=== PATIENT | female | born 1975 | race Caucasian/White ===

== ENCOUNTER 2016-06-24 12:58 | Inpatient (IN) | payer OTHER ==
[~2016-06-24] VITALS: Ht 162.6 cm; Wt 49.4 kg
[2016-06-24] VITALS (22 sets, daily range): BP systolic 92–118; BP diastolic 58–100; PULSE 70–87; RESP 12–20; TEMP 93.2
[~2016-06-24 12:58] MED LIST: ETOMIDATE 20 MG INJ ONE
[2016-06-24] MEDS ORDERED: PROPOFOL 100 ML IV STA (13:12)
[2016-06-24] MEDS ORDERED: SODIUM CHLORIDE 0.9% 1L BAG IV* STA (13:12)
[2016-06-24] MEDS ORDERED: SUCCINYLCHOLINE CHLORIDE 100 MG/5 ML SYG IV STA (13:12)
[2016-06-24] MEDS ORDERED: ETOMIDATE 20 MG INJ IV STA (13:12)
[2016-06-24 13:27] LABS: AADO2 Arterial 88.3 mmHg (7.0-24.0); Arterial Base Excess -0.9 mmol/L (-3.0-3); Arterial COHb 0.5 % (0.0-3.0); Arterial Fraction of Oxyhgb 98.7 % (93.0-99.0); Arterial HCO3 20.7 mmol/L (22.0-26.0); Arterial MetHb 0.1 % (0.0-1.5); Arterial Total Hemglobin 7.7 g/dl (12.0-18.0); MODE VENT - AC
[2016-06-24 13:42] LABS: HEMATOCRIT 22.4 % (37.0-47.0); HEMOGLOBIN 7.3 g/dl (12.0-16.0); MEAN CORPUSCULAR HEMOGLOBIN 25.8 pg (29.0-33.0); MEAN CORPUSCULAR HGB CONC 32.4 g/dl (32.0-37.0); MEAN CORPUSCULAR VOLUME 79.5 fl (82.0-101.0); MEAN PLATELET VOLUME 6.4 fl (7.4-10.4); PLATELET COUNT 200 10^3/UL (140-440); RED BLOOD COUNT 2.82 10^6/ul (4.20-5.40); RED CELL DISTRIBUTION WIDTH 21.4 % (11.5-14.5); UNCORRECTED WBC 13.1 10^3/ul (4.8-10.8); WHITE BLOOD COUNT 13.1 10^3/ul (4.8-10.8)
[2016-06-24 13:44] LABS: CONDITION 1; LH ANALYZER COMMENTS 1; SUSPECT 1
[2016-06-24 13:47] LABS: ALBUMIN 1.2 g/dl (3.3-4.9)
[2016-06-24 13:48] LABS: INR 1.43; POTASSIUM 3.8 mmol/L (3.5-5.1); PROTIME 17.5 Sec (12.2-14.2); PT RATIO 1.4
[2016-06-24 13:49] LABS: PARTIAL THROMBOPLASTIN TIME 29.9 Sec (25.0-35.0)
[2016-06-24 13:50] LABS: ALBUMIN/GLOBULIN RATIO 0.42; BILIRUBIN,INDIRECT 0.1 mg/dl (0-1.1); BILIRUBIN,TOTAL 0.1 mg/dl (0.2-1.3); CREATININE 0.78 mg/dl (0.44-1.00)
[2016-06-24 13:51] LABS: CALCIUM 6.8 mg/dl (8.4-10.2)
[2016-06-24] MEDS ORDERED: SOD CHLORIDE 0.9% 250 ML IV ONE (13:53)
[2016-06-24] MEDS ORDERED: CEFEPIME 2GM/50 ML (PMX) 50 ML IVPB STA (13:59)
[2016-06-24] MEDS ORDERED: VANCOMYCIN 1 GM (PMX) 250 ML IVPB ONE (14:00)
[2016-06-24 14:02] LABS: TROPONIN-I 0.017 ng/ml (0.00-0.12)
--- NOTE | 2016-06-24 14:04 | RADRPT ---
PROCEDURE: XR Chest. CLINICAL INDICATION: Respiratory arrest TECHNIQUE: Chest AP portable. COMPARISON: No comparison available. FINDINGS: Endotracheal tube 2 cm above the migel. Right internal jugular central line. The mediastinal structures are unremarkable. The heart is normal in size and configuration. The pu lmonary vascularity is normal. The lung johns are unremarkable. No consolidation is identified. The pleural spaces are unremarkable. The axial skeleton is unremarkable. Probable overlying nipple shadow in the right lower lung field. IMPRESSION: No active intrathoracic disease. RPTAT: HGDB .Arturo Turcios MD, MD Date Time Electronically viewed and signed by .Arturo Turcios MD, on 06/24/2016 14:04 .B/
[2016-06-24] MEDS ORDERED: DEXTROSE 50% 50 ML SYRINGE IV ONE (14:30)
[2016-06-24 14:50] LABS: LYMPHOCYTES # 1.8 10^3/ul (0.8-2.9); MONOCYTE # 0.3 10^3/ul (0.3-0.9); NEUTROPHIL # 4.7 10^3/ul (1.6-7.5)
[2016-06-24 14:51] LABS: ANISOCYTOSIS 2+; HYPOCHROMASIA 2+; MICROCYTOSIS 1+; PLATELET ESTIMATE PLT APPEAR ADEQUATE
[2016-06-24] MEDS ORDERED: OCTREOTIDE 50 MCG INJ SC ONE (15:00)
--- NOTE | 2016-06-24 15:55 | RADRPT ---
PROCEDURE: Noncontrast CT Head. CLINICAL INDICATION: Altered level of consciousness. TECHNIQUE: Noncontrast CT of the head was obtained. The administered radiation dose was unavailable on this particular CT scanner. COMPARISON: There are no similar studies submitted for comparison. FINDINGS: There is streak artifact from external material within the right parietal region in the evaluation. The ventricles and sulci are within normal limits. There is no definite loss of cheek-white differentiation to suggest acute territorial infarction. There is no definite acute intracranial hemorrhage or extra-axial fluid collection. There is no mass effect. No midline shift is identified. The orbits are within normal limits. The paranasal sinuses are well aerated. No destructive osseous lesion is identified. The patient is intubated. IMPRESSION: There is streak artifact from external material within the right parietal region limiting evaluation . Repeat imaging may be performed as clinically warranted. No definite acute intracranial hemorrhage or extra-axial fluid collection. Further findings as detailed above. RPTAT: PP .Laureano Doan MD, MD Date Time Electronically viewed and signed by .Laureano Doan MD, on 06/24/2016 15:54 .F/
[2016-06-24 16:33] LABS: HEMOGLOBIN 5.4 g/dl (12.0-16.0)
[2016-06-24] MEDS ORDERED: NORepinephrine 8MG/250 ML (PMX 250 ML IV SCH (18:00)
--- NOTE | 2016-06-24 18:31 | ERA ---
ER Documentation Chief Complaint Date/Time DATE: 06/24/16 TIME: 18:25 Chief Complaint BIB RA FOR EVAL OF SOB. BVM IN PROGRESS ON ARRIVAL BY EMS HPI This is a 40-year-old female who presents to the emergency room after being brought in by ambulance from home for evaluation of shortness of breath, weakness, and altered mental status. When the ambulance did arrive to this patient's place of residence they noted that she was minimally responsive, and they proceeded to use a bag valve mask on this patient, and oral pharyngeal airway, and transfer this patient to the emergency room. A detailed history is unobtainable from this patient secondary to clinical condition. ROS All systems reviewed and are negative except as per history of present illness. Medications Home Meds Unable to Obtain Active Prescriptions or Reported Meds Allergies Allergies: Coded Allergies: hydrocortisone (Verified Allergy, Unknown, 10/12/13) ibuprofen (Verified Allergy, Unknown, 10/12/13) PMhx/Soc Medical and Surgical Hx: Unable to obtain Hx Psychiatric Problems: Yes (anxiety) Hx Miscellaneous Medical Probl: Yes (hiv+, C DIFF, HEP C) Hx Alcohol Use: No Hx Substance Use: No Hx Tobacco Use: Yes (6 cigs /day) Smoking Status: Current every day smoker Physical Exam Vitals Vital Signs Date Time Temp Pulse Resp B/P Pulse Ox O2 Delivery O2 Flow Rate FiO2 06/24/16 18:20 93.0 77 98/75 06/24/16 17:40 75 91/65 100 Mechanical Ventilator 06/24/16 17:30 75 16 100 35 06/24/16 17:03 95.0 78 85/72 06/24/16 16:00 92 16 92/69 100 Mechanical Ventilator 06/24/16 15:15 74 19 100 35 06/24/16 14:33 Non Rebreather 06/24/16 14:32 93.4 110 16 94/51 100 Mechanical Ventilator 06/24/16 13:30 74 16 91/65 100 Mechanical Ventilator 06/24/16 13:30 111 19 100 100 06/24/16 12:58 107 0 76/54 100 Physical Exam INITIAL VITAL SIGNS: Reviewed by me GENERAL: The patient is cachectic appearing female, moderate respiratory distress HEENT: Conjunctival pallor bilaterally pupils equal, round, and reactive to light. EOMI. There is no scleral icterus. NECK: C-spine is soft and supple, there is no meningismus. There is no cervical lymphadenopathy. LUNGS: Clear to auscultation bilaterally. There are no rales, wheezes or rhonchi. HEART: Tachycardic, no murmurs, clicks, rubs or gallops. ABDOMEN: Soft, non-tender, non-distended. There are bowel sounds in all four quadrants. No rebound or guarding. EXTREMITIES: 3+ pitting edema in the bilateral upper and lower extremities SKIN: Pale skin Rectal exam: Melanotic stool, active bleeding, heme positive HEME/LYMPHATIC: There is no evidence of excessive bruising or lymphedema. PSYCHIATRIC: The patient does not appear anxious or depressed. Result Diagram: 06/24/16 1615 06/24/16 1310 Results 24 hrs Laboratory Tests Test 06/24/16 13:10 06/24/16 13:12 06/24/16 15:10 06/24/16 16:15 Activated Partial Thromboplast Time 29.9Sec Alanine Aminotransferase (ALT/SGPT) 146IU/L Albumin 1.2g/dl Albumin/Globulin Ratio 0.42 Alkaline Phosphatase 181IU/L Anion Gap 13 Anisocytosis 2+ Aspartate Amino Transf (AST/SGOT) 172IU/L Band Neutrophils % 47.0% Basophils # 10^3/ul Basophils % % Blood Morphology Comment Blood Urea Nitrogen 30mg/dl Calcium Level 6.8mg/dl Carbon Dioxide Level 24mmol/L Chloride Level 106mmol/L Creatinine 0.78mg/dl Direct Bilirubin 0.00mg/dl Eosinophils # 10^3/ul Eosinophils % % Globulin 2.80g/dl Glucose Level 68mg/dl Hematocrit 22.4% 17.0% Hemoglobin 7.3g/dl 5.4g/dl Hypochromasia 2+ INR International Normalized Ratio 1.43 Indirect Bilirubin 0.1mg/dl Lactic Acid Level 3.4mmol/L 2.0mmol/L Lymphocytes # 1.810^3/ul Lymphocytes % 14.0% Mean Corpuscular Hemoglobin 25.8pg Mean Corpuscular Hemoglobin Concent 32.4g/dl Mean Corpuscular Volume 79.5fl Mean Platelet Volume 6.4fl Metamyelocytes # 0.1 Metamyelocytes % 1.0% Microcytosis 1+ Monocytes # 0.310^3/ul Monocytes % 2.0% Neutrophils # 4.710^3/ul Neutrophils % 36.0% Nucleated Red Blood Cells # 10^3/ul Nucleated Red Blood Cells % /100WBC Platelet Count 04487^3/UL Platelet Estimate PLT APPEAR ADEQUATE Potassium Level 3.8mmol/L Prothrombin Time 17.5Sec Prothrombin Time Ratio 1.4 Red Blood Count 2.8210^6/ul Red Cell Distribution Width 21.4% Sodium Level 139mmol/L Total Bilirubin 0.1mg/dl Total Protein 4.0g/dl Troponin I 0.017ng/ml White Blood Count 13.110^3/ul Arterial Blood HCO3 20.7mmol/L Arterial Blood Base Excess -0.9mmol/L Arterial Blood Oxygen Saturation 99.3mmHG Britton Test N/A Arterial Blood Gas Puncture Site Femoral Arterial Blood Carboxyhemoglobin 0.5% Arterial Blood Date Drawn 06/24/2016 1:22:43 PM Arterial Blood Methemoglobin 0.1% Arterial Blood pCO2 (Temp correct) 23.2mmhg Arterial Blood pH (Temp corrected) 7.568 Arterial Blood pO2 (Temp corrected) 601.5mmHG Blood Gas A-a O2 Differential 88.3mmHg Blood Gas Actual Respiration Rate 16 Blood Gas Critical Value Read Back KORI Kim Blood Gas Modality VENT - AC Blood Gas Notified Time 06/24/2016 1:27:31 PM Blood Gas Notified Whom MDA Blood Gas Respiration Rate 16.0 Blood Gas Specimen Source Blood arterial Blood Gas Temperature 37.0C Blood Gas Tidal Volume 450.0mL FiO2 100.0% Oxyhemoglobin Percent 98.7% Total Hemoglobin 7.7g/dl Current Medications Medications (Trade) Dose Ordered Sig/Dianne Route PRN Reason Start Time Stop Time Status Last Admin Dose Admin Sodium Chloride (NS) 2,500 ml BOLUS OVER 2 HOURS STAT IV* 06/24/16 13:12 06/24/16 13:15 DC 06/24/16 14:28 Succinylcholine Chloride (Anectine Syringe) 100 mg ONCE STAT IV 06/24/16 13:12 06/24/16 13:15 DC Etomidate 20 mg 20 mg ONCE STAT IV 06/24/16 13:12 06/24/16 13:15 DC Propofol 100 ml @ 0 mls/hr ONCE STAT IV 06/24/16 13:12 06/24/16 13:15 DC 06/24/16 14:29 Sodium Chloride 250 ml @ 0 mls/hr Q0M ONCE IV 06/24/16 13:53 06/24/16 13:55 DC Cefepime HCl 50 ml @ 100 mls/hr ONCE STAT IVPB 06/24/16 13:59 06/24/16 14:28 DC 06/24/16 14:25 Vancomycin HCl (Vancocin) 250 ml @ 125 mls/hr ONCE ONCE IVPB 06/24/16 14:00 06/24/16 15:59 DC 06/24/16 14:27 Dextrose (D50w Syringe) 50 ml ONCE ONCE IV 06/24/16 14:30 06/24/16 14:31 DC 06/24/16 14:24 Octreotide Acetate 150 mcg 150 mcg ONCE ONCE SC 06/24/16 15:00 06/24/16 15:01 DC 06/24/16 15:00 Norepinephrine (Levophed) 250 ml @ 1.875 mls/ hr TITRATE IV 06/24/16 18:00 06/24/16 17:52 Procedures/MDM CT head without: No bleed, no stroke EKG: Rate/Rhythm: Sinus tachycardia QRS, ST, T-waves: [No changes consistent w/ acute ischemia] Impression: [No evidence of ischemia or arrhythmia] Chest X-ray 1V Interpreted by me: Soft Tissue: ET tube 2 cm above migel, right internal jugular catheter in place Bones: No acute abnormalities Mediastinum/Cardiac Silhouette/Lungs: [No acute abnormalities] This 40-year-old female presents to the emergency room for evaluation of respiratory distress. When I evaluated this patient this patient was in moderate respiratory distress, she appeared pale, and cachectic. She was intubated. Please see intubation note. When we were doing a thorough examination it was noted that this patient had melanotic stool, this melanotic stool became bright red, this patient was tachycardic and hypotensive. A central line was placed. Please see central line note. This patient was started on IV normal saline, she was given 2 units of packed red blood cells, and her initial hemoglobin came back at 7.3. Repeat hemoglobin after transfusion was progressing showed a hemoglobin of 5.4. This patient continued to be hypotensive despite IV fluids, and this patient was subsequently started on levo fed. She was also given 150 g subcutaneously of octreotide. This patient is suffering from hemorrhagic shock at this time secondary to a GI bleed. I have contacted our on-call railway signalling engineer, Dr. rojas who agrees to do an emergent colonoscopy on this patient to evaluate bleeding. This patient will be transferred to the ICU at this time. Endotracheal Intubation by me: Pre assessment performed. See preceding note for details. Pre-oxygenation performed with 100% oxygen RSI: Performed w/o complication or hypoxic events. Medications as ordered. Blade: [Mac 4] ET Tube: 7.5] cm Depth: 23 cm at the lip Intubation confirmed by colorimetric CO2, equal breath sounds, quiet over the stomach. Chest X-ray 1V Interpreted by me: 2cm above the migel ET tube. Normal soft tissue, No pneumothorax. Central Line Placement by me: Patient consented, sterilely draped, full prep, gown, glove, mask, time out performed. Anesthesia: 1% lidocaine locally Location: Right internal jugular vein Device: Multiple lumen Technique: Seldinger technique. Secured with suture. Results: Venous return from all ports with easy saline flush. No complications. Guide wire retrieved and disposed of. [ED Ultrasound: Central line placed by me using concurrent ultrasound guidance. Real time image archived in the medical record confirms vascular anatomy. [Chest X-ray 1V Interpreted by me: Central line in SVC, Normal soft tissue, No evidence of pneumothorax.] Critical Care: Excluding all billable procedures Time: 77 minutes Treatments/Evaluations: Emergent and rapid respiratory assessment and management with continuous monitoring. Advanced airway equipment at the ready, while the patient's respiratory symptoms were stabilized, multiple bedside evaluations, lab values interpretation, multiple consultations, coordination of nursing care. Departure Diagnosis: Primary Impression: Hemorrhagic shock Additional Impressions: Acute lower GI bleeding Severe anemia Respiratory failure Condition: Critical KORIJACINDAISAIAS MCKEON Jun 24, 2016 18:31
[2016-06-24] MEDS ORDERED: LORAZEPAM 2 MG INJ IV PRN (19:00)
[2016-06-24] MEDS ORDERED: IPRATROPIUM (NEB) 0.5 MG/2.5 ML AMP NEB PRN (19:00)
[2016-06-24] MEDS ORDERED: OCTREOTIDE 1 MG in SOD CHLORIDE 0.9% 95 ML IV SCH (19:00)
[2016-06-24] MEDS ORDERED: ONDANSETRON 4 MG INJ IV PRN (19:00)
[2016-06-24] MEDS ORDERED: METOCLOPRAMIDE 10 MG INJ IV PRN (19:00)
[2016-06-24] MEDS ORDERED: ALBUTEROL 0.5% (NEB) 2.5 MG/0.5 ML AMP NEB PRN (19:00)
[2016-06-24] MEDS ORDERED: ACETAMINOPHEN 650 MG SUPP PR PRN (19:00)
[2016-06-24] MEDS: NORepinephrine 8MG/250 ML (PMX 250 ML IV SCH (19:30)
--- NOTE | 2016-06-24 19:46 | CONS ---
Date/Time of Note Date/Time of Note DATE: 06/24/16 TIME: 19:45 Assessment/Plan Assessment/Plan Additional Assessment/Plan Assessment: Hemorrhagic shock secondary to gastrointestinal bleed Gastrointestinal bleed UGI vs LGI Anemia secondary to above HIV + status HCV + status Plan: Emergency EGD Consultation Date/Type/Reason Admit Date/Time Jun 24, 2016 at 17:51 Date of Consultation: Jun 24, 2016 Type of Consultation: GI Reason for Consultation GI Bleeding Hx of Present Illness The patient is a 40-year-old female with history of HIV, hepatitis C cirrhosis and anxiety who was brought by EMS with initial complaint of shortness of breath. The patient is currently intubated, and as such, information is gathered from the ER physician and from the EMS report. Her initial hemoglobin was around 7. A repeat hemoglobin was found to be 5.4. The patient is currently receiving a blood transfusion. Her blood pressure also dropped to low 90s and she was about to be started on a pressor. She was also found to have abnormal liver enzymes. Not obtainable Past Medical History HIV +, Hepatitis, CLD Medical History: no pertinent history Past Surgical History not available Social History Smoking Status: Current every day smoker Exam/Review of Systems Vital Signs Vitals Vital Signs Date Time Temp Pulse Resp B/P Pulse Ox O2 Delivery O2 Flow Rate FiO2 06/24/16 19:00 93.2 74 16 111/92 100 Mechanical Ventilator 06/24/16 17:30 35 Exam Constitutional: other (intubated) Head: normocephalic Neck: non-tender, supple Respiratory: crackles/rales, diminished breath sounds Cardiovascular: regular rate and rhythm Gastrointestinal: ascites, distended, soft, No rebound or guarding, No tender Results Result Diagram: 06/24/16 1615 06/24/16 1310 Results 24 hrs Laboratory Tests Test 06/24/16 13:10 06/24/16 13:12 06/24/16 15:10 06/24/16 16:15 Activated Partial Thromboplast Time 29.9 Alanine Aminotransferase (ALT/SGPT) 146 H Albumin 1.2 L Albumin/Globulin Ratio 0.42 Alkaline Phosphatase 181 H Anion Gap 13 Anisocytosis 2+ Aspartate Amino Transf (AST/SGOT) 172 H Band Neutrophils % 47.0 H Basophils # Basophils % Blood Morphology Comment Blood Urea Nitrogen 30 H Calcium Level 6.8 L Carbon Dioxide Level 24 Chloride Level 106 Creatinine 0.78 Direct Bilirubin 0.00 Eosinophils # Eosinophils % Globulin 2.80 Glucose Level 68 L Hematocrit 22.4 L 17.0 #L Hemoglobin 7.3 L 5.4 #*L Hypochromasia 2+ INR International Normalized Ratio 1.43 Indirect Bilirubin 0.1 Lactic Acid Level 3.4 H 2.0 Lymphocytes # 1.8 Lymphocytes % 14.0 L Mean Corpuscular Hemoglobin 25.8 L Mean Corpuscular Hemoglobin Concent 32.4 Mean Corpuscular Volume 79.5 L Mean Platelet Volume 6.4 L Metamyelocytes # 0.1 Metamyelocytes % 1.0 H Microcytosis 1+ Monocytes # 0.3 Monocytes % 2.0 Neutrophils # 4.7 Neutrophils % 36.0 L Nucleated Red Blood Cells # Nucleated Red Blood Cells % Platelet Count 200 Platelet Estimate PLT APPEAR ADEQUATE Potassium Level 3.8 Prothrombin Time 17.5 H Prothrombin Time Ratio 1.4 Red Blood Count 2.82 L Red Cell Distribution Width 21.4 H Sodium Level 139 Total Bilirubin 0.1 L Total Protein 4.0 L Troponin I 0.017 White Blood Count 13.1 H Arterial Blood HCO3 20.7 L Arterial Blood Base Excess -0.9 Arterial Blood Oxygen Saturation 99.3 H Britton Test N/A Arterial Blood Gas Puncture Site Femoral Arterial Blood Carboxyhemoglobin 0.5 Arterial Blood Date Drawn 06/24/2016 1:22:43 PM Arterial Blood Methemoglobin 0.1 Arterial Blood pCO2 (Temp correct) 23.2 L Arterial Blood pH (Temp corrected) 7.568 *H Arterial Blood pO2 (Temp corrected) 601.5 H Blood Gas A-a O2 Differential 88.3 H Blood Gas Actual Respiration Rate 16 Blood Gas Critical Value Read Back KORI Kim Blood Gas Modality VENT - AC Blood Gas Notified Time 06/24/2016 1:27:31 PM Blood Gas Notified Whom MDA Blood Gas Respiration Rate 16.0 Blood Gas Specimen Source Blood arterial Blood Gas Temperature 37.0 Blood Gas Tidal Volume 450.0 FiO2 100.0 Oxyhemoglobin Percent 98.7 Total Hemoglobin 7.7 L Test 06/24/16 18:45 Lactic Acid Level 1.6 Medications Medications Current Medications Norepinephrine 250 ml @ 1.875 mls/ hr TITRATE IV Last administered on t 17:52; Admin Dose 3.75 MLS/HR; Start 06/24/16 at 18:00 Dextrose/Sodium Chloride (D5-1/2ns) 1,000 ml @ 100 mls/hr Q10H IV ; Start at 18:48 Ondansetron HCl (Zofran Inj) 4 mg Q6H PRN IV NAUSEA AND/OR VOMITING; Start 06/24 at 19:00 Metoclopramide HCl (Reglan) 10 mg Q6H PRN IV NAUSEA AND/OR VOMITING; Start 06/24 at 19:00 Acetaminophen (Tylenol Supp) 650 mg Q4H PRN OR PAIN LEVEL 1-3 OR FEVER; Start 06/24/16 at 19:00 Morphine Sulfate (morphine) 2 mg Q4H PRN IV PAIN LEVEL 7-10; Start 06/24/16 at 19:00 Lorazepam 1 mg 1 mg Q2H PRN IV ANXIETY; Start 06/24/16 at 19:00 Pantoprazole 80 mg/Sodium Chloride 100 ml @ 10 mls/hr Q10H IV ; Start 06/24/16 at 18:48 Octreotide Acetate/Sodium Chloride (Sandostatin/NS) 100 ml @ 5 mls/hr Q20H IV ; Start 06/24/16 at 19:00 LM LAMB MD Jun 24, 2016 19:45 Test 06/24/16 18:45 Lactic Acid Level 1.6 Medications Medications Current Medications Norepinephrine 250 ml @ 1.875 mls/ hr TITRATE IV Last administered on t 17:52; Admin Dose 3.75 MLS/HR; Start 06/24/16 at 18:00 Dextrose/Sodium Chloride (D5-1/2ns) 1,000 ml @ 100 mls/hr Q10H IV ; Start at 18:48 Ondansetron HCl (Zofran Inj) 4 mg Q6H PRN IV NAUSEA AND/OR VOMITING; Start 06/24 at 19:00 Metoclopramide HCl (Reglan) 10 mg Q6H PRN IV NAUSEA AND/OR VOMITING; Start 06/24 at 19:00 Acetaminophen (Tylenol Supp) 650 mg Q4H PRN OR PAIN LEVEL 1-3 OR FEVER; Start 06/24/16 at 19:00 Morphine Sulfate (morphine) 2 mg Q4H PRN IV PAIN LEVEL 7-10; Start 06/24/16 at 19:00 Lorazepam 1 mg 1 mg Q2H PRN IV ANXIETY; Start 06/24/16 at 19:00 Pantoprazole 80 mg/Sodium Chloride 100 ml @ 10 mls/hr Q10H IV ; Start 06/24/16 at 18:48 Octreotide Acetate/Sodium Chloride (Sandostatin/NS) 100 ml @ 5 mls/hr Q20H IV ; Start 06/24/16 at 19:00 LM LAMB MD Jun 24, 2016 19:45
[2016-06-24] MEDS ORDERED: POLYETHYLENE GLYCOL 3350 119 GM POWDER NGT ONE (21:00)
--- NOTE | 2016-06-24 21:08 | RADRPT ---
PROCEDURE: CT Cervical Spine without contrast. CLINICAL INDICATION: Cervical spine pain, suspected cervical spine injury. TECHNIQUE: The study was performed on a multislice multidetector CT scanner. Spiral axial 1 mm im ages were obtained through the cervical spine and reformatted at 2.5 mm slice thickness without cont rast. Sagittal and coronal reformations were created from the raw axial data. The images were review ed on a PACS workstation. RADIATION DOSE: CTDIvol: 14.8 mGyDLP: 822.8 mGy-cm COMPARISON: No prior studies are available for comparison. FINDINGS: The alignment of the cervical spine is within normal limits on the sagittal view. There is no signi ficant listhesis. There is a mild right convex scoliosis centered at C5.. The vertebral body heigh ts are maintained. There is no evidence of fracture or dislocation. The marrow density is within n ormal limits. The intervertebral disc spaces appear normal. The cervical canal is unremarkable. Ther e is a no bone destruction or sclerosis. The paraspinal soft tissues are unremarkable. No significa nt paraspinal soft tissue swelling. There is an endotracheal tube in place with tip not visualized. There is a right subclavian central line in place, with tip not visualized C2-3: There is a 1 mm posterior disc/osteophyte complex. The thecal sac and neural foramina are pat ent. C3-4: There is a 1-2 mm posterior disc/osteophyte complex. The thecal sac is patent. There is mild bilateral facet spondylosis. There is mild bilateral neural foraminal narrowing. C4-5: There is a 1-2 mm posterior disc/osteophyte complex. The thecal sac is patent. There is mild bilateral facet spondylosis. There is mild bilateral neural foraminal narrowing. C5-6: There is a 1 mm posterior disc/osteophyte complex. The thecal sac and neural foramina are pat ent. There is mild bilateral facet spondylosis. C6-7: There is a 1 mm posterior disc/osteophyte complex. The thecal sac and neural foramina are pa tent. C7-T1: The posterior margin of the disc, thecal sac and neural foramina are normal in appearance. IMPRESSION: 1. No acute abnormality of the cervical spine. No evidence of fracture or dislocation. 2. Minimal spondylosis of the cervical spine without significant narrowing of the cervical thecal s ac or neural foramina. 3. Endotracheal tube in place. RPTAT: HGAS .Thang Ma MD, Date Time Electronically viewed and signed by .Thang Ma MD, on 06/24/2016 21:08 .S/
--- NOTE | 2016-06-24 22:07 | HP ---
DATE OF ADMISSION: 06/24/2016 TIME SEEN: 7:00 a.m. CHIEF COMPLAINT: Shortness of breath. HISTORY OF PRESENT ILLNESS: The patient is a 40-year-old female with history of HIV, hepatitis C ci rrhosis and anxiety who was brought by EMS with initial complaint of shortness of breath. The patie nt is currently intubated, and as such, information is gathered from the ER physician and from the E MS report. When the EMS arrived, the patient was unresponsive, even though she does have a pulse. Upon arrival to the ER, the patient was intubated. She was found to be extremely edematous with kellen e bruising over her right eye area. During the nursing examination she was found to have a large bl oody watery stool. Her initial hemoglobin was around 7. A repeat hemoglobin was found to be 5.4. The patient is currently receiving a blood transfusion. Her blood pressure also dropped to low 90s and she was about to be started on a pressor. She was also found to have abnormal liver enzymes. A GI consult has already been placed . REVIEW OF SYSTEMS: Unable to fully assess. PAST MEDICAL HISTORY: As per HPI. PAST SURGICAL HISTORY: Unknown. SOCIAL HISTORY: Unknown. ALLERGIES AND HOME MEDICATIONS: Please see reconciled meds. PHYSICAL EXAMINATION: VITAL SIGNS: Blood pressure 91/50, heart rate 105, respiratory rate 20, temperature 95, oxygen satu ration 98% on a vent. GENERAL: The patient is intubated, sedated. Looks comfortable on vent. HEENT: No obvious head deformity. There is bruising around her right eye area. Pupils are reactiv e to light. CARDIOVASCULAR: Tachycardic. Regular rhythm. CHEST: Decreased breath sounds. ABDOMEN: Distended with anasarca. EXTREMITIES: There is significant bilateral lower extremity pitting edema. LABORATORY: Pertinent positives as noted in HPI. IMPRESSION: 1. Hemorrhagic shock secondary to gastrointestinal bleed. 2. Gastrointestinal bleed. 3. Anemia secondary to above. 4. Ventilator dependent respiratory failure. 5. Volume overload state. 6. Abnormal liver enzymes. PLAN: Admit to ICU. Continue blood transfusion. A GI consult has already been placed. She will b e placed on octreotide and Protonix drip. She will be on a pressor as needed. We are going to cont inue vent support. We will check her ABG. A pulmonary consult will be placed. We will check her f erritin and iron profile. Monitor hemoglobin closely and continue transfusion as needed. Further workup and management per clinical course. Total time spent was 40 minutes. Dictated By: RAVI LAWLER/NTS Conf#: [id number] DID#: [id number]
--- NOTE | 2016-06-24 23:12 | RADRPT ---
PROCEDURE: XR Chest. CLINICAL INDICATION: Check orogastric tube position. TECHNIQUE: Single frontal view. COMPARISON: 06/24/2016. 1348 hours. FINDINGS: There is an new orogastric tube with the tip in the stomach. The endotracheal tube and right chemist internship al jugular vein catheter remain in satisfactory position. The lungs are clear. The heart size is normal. There is no pleural effusion. There is no pneumothorax. IMPRESSION: 1. Orogastric tube tip in the stomach. 2. Right IJ catheter and endotracheal tube in satisfactory position. 3. Clear lungs. RPTAT: QQ .Patricio Phillips MD, MD Date Time Electronically viewed and signed by .Patricio Phillips MD, MD on 06/24/2016 23:12 .R/
[2016-06-24] MEDS: DEXTROSE 5%-0.45% NACL 1,000 ML IV SCH (23:36)
[2016-06-24] MEDS: PANTOPRAZOLE IV 80 MG in SOD CHLORIDE 0.9% 100 ML IV SCH (23:43)
[2016-06-25] VITALS (104 sets, daily range): BP systolic 83–116; BP diastolic 55–87; PULSE 73–99; RESP 12–32; Ht 162.6 cm; Wt 49.4 kg
[2016-06-25 00:58] LABS: HEMATOCRIT 30.4 % (37.0-47.0); HEMOGLOBIN 10.1 g/dl (12.0-16.0)
[2016-06-25] MEDS ORDERED: CIPR750T3 PO (03:05)
[2016-06-25] MEDS ORDERED: MESA1.2T2 PO (03:05)
[2016-06-25] MEDS ORDERED: VALG450T3 PO (03:05)
[2016-06-25] MEDS: PROPOFOL 100 ML IV SCH (03:24)
[2016-06-25] MEDS: PANTOPRAZOLE IV 80 MG in SOD CHLORIDE 0.9% 100 ML IV SCH ×3 (04:48→22:14)
[2016-06-25] MEDS: DEXTROSE 5%-0.45% NACL 1,000 ML IV SCH ×3 (04:48→22:14)
[2016-06-25 04:50] LABS: AADO2 Arterial 30.4 mmHg (7.0-24.0); Arterial Base Excess 2.4 mmol/L (-3.0-3); Arterial COHb 0.3 % (0.0-3.0); Arterial Fraction of Oxyhgb 97.6 % (93.0-99.0); Arterial HCO3 24.9 mmol/L (22.0-26.0); Arterial MetHb 0.3 % (0.0-1.5); Arterial Total Hemglobin 10.9 g/dl (12.0-18.0); MODE VENT - AC
[2016-06-25 06:31] LABS: HAAIG REFLEX REFLEX FILED
[2016-06-25 06:42] LABS: HEMATOCRIT 29.9 % (37.0-47.0); MEAN CORPUSCULAR HEMOGLOBIN 27.2 pg (29.0-33.0); MEAN CORPUSCULAR HGB CONC 33.6 g/dl (32.0-37.0); MEAN CORPUSCULAR VOLUME 80.9 fl (82.0-101.0); MEAN PLATELET VOLUME 6.7 fl (7.4-10.4); PLATELET COUNT 134 10^3/UL (140-440); UNCORRECTED WBC 16.7 10^3/ul (4.8-10.8); WHITE BLOOD COUNT 16.7 10^3/ul (4.8-10.8)
[2016-06-25 06:52] LABS: CONDITION 1; LH ANALYZER COMMENTS 1; SUSPECT 1
[2016-06-25 06:55] LABS: TOTAL IRON BINDING CAPACITY 95 ug/dl (241-421)
[2016-06-25 07:02] LABS: IRON 17 ug/dl (35-150)
[2016-06-25 07:47] LABS: ALBUMIN 1.1 g/dl (3.3-4.9)
[2016-06-25 07:49] LABS: BILIRUBIN,INDIRECT 0.2 mg/dl (0-1.1); BILIRUBIN,TOTAL 0.2 mg/dl (0.2-1.3); CREATININE 0.63 mg/dl (0.44-1.00)
[2016-06-25 07:50] LABS: ALBUMIN/GLOBULIN RATIO 0.42; CALCIUM 6.2 mg/dl (8.4-10.2); TOTAL PROTEIN 3.7 g/dl (6.1-8.1)
[2016-06-25 07:54] LABS: POTASSIUM 2.6 mmol/L (3.5-5.1)
[2016-06-25 07:57] LABS: HEPATITIS B CORE ANTIBODY NEGATIVE (NEGATIVE)
[2016-06-25 09:37] LABS: ANISOCYTOSIS 1+; EOSINOPHILS # 0.2 10^3/ul (0.0-0.5); HYPOCHROMASIA 1+; LYMPHOCYTES # 1.7 10^3/ul (0.8-2.9); MICROCYTOSIS 1+; MONOCYTE # 1.5 10^3/ul (0.3-0.9); MYELOCYTES # 0.2; NEUTROPHIL # 5.2 10^3/ul (1.6-7.5)
[2016-06-25] MEDS: POTASSIUM CHLORIDE 250 ML IVPB SCH ×2 (10:03→13:56)
--- NOTE | 2016-06-25 10:09 | RADRPT ---
PROCEDURE: US Abdomen (right upper quadrant). CLINICAL INDICATION: Evaluate cirrhosis. TECHNIQUE: Multiple real-time longitudinal and transverse images of the right upper quadrant of th e abdomen were acquired utilizing a curved array transducer. Images were reviewed on a high-resoluti on PACS workstation. COMPARISON: None FINDINGS: The liver is normal in size and echotexture without focal mass or intrahepatic biliary dilatation. There is normal hepatopedal flow within the main portal vein. The gallbladder is unremarkable witho ut evidence of stones or wall thickening. The common bile duct measures 5.3 mm in maximal dimension . The pancreas is not visualized due to overlying bowel gas. There is trace ascites present.. The right kidney measures 8.5 cm in length. There is normal echogenicity within the right kidney. There is no perinephric fluid collection. No hydronephrosis, mass, or calculus is seen. IMPRESSION: 1. Liver, gallbladder and biliary tree appear unremarkable. 2. Nonvisualization of the pancreas due to overlying bowel gas. 3. Trace ascites. RPTAT: [facility] Physician Darian Date Time Electronically viewed and signed by Physician Darian on 06/25/2016 10:09 /
[2016-06-25] MEDS: LEVOFLOXACIN 500MG/D5W (PMX) 100 ML IVPB SCH ×2 (12:43→13:00)
[2016-06-25 13:26] LABS: HEMATOCRIT 30.9 % (37.0-47.0); HEMOGLOBIN 10.3 g/dl (12.0-16.0)
--- NOTE | 2016-06-25 14:24 | RADRPT ---
Echocardiogram Report Patient Name: TIFFANIE ARREOLA Gender: Female Date: 1975 Study Date: 25-Jun-2016 College Advisor: Sree Ahumada RDCS Location: Ref. Physician: RAVI BURGOS Quality: Good Procedures: Transthoracic echocardiogram with complete 2D, M-Mode, and doppler examination. Indications: Hypotension. 2D/M Mode Doppler Measurement Value Normal Ranges Measurement Value Normal Ranges LVIDd 2D 3.6 3.5 - 5.6 cm AV Peak Ken 0.8 m/sec LVIDs 2D 2.6 2.1 - 4.1 cm AV Peak PG 2.9 mmHg LVPWd 2D 0.7 0.6 - 1.1 cm LVOT Peak Ken 0.8 m/sec IVSd 2D 0.6 0.6 - 1.1 cm LVOT Peak PG 2.6 mmHg AoR Diam 2D 2.5 2.0 - 3.7 cm MV E Peak Ken 0.5 m/sec EDV 2D 52.9 cm3 MV A Peak Ken 0.5 m/sec ESV 2D 17.7 cm3 MV E/A 1.1 LA Dimen 2D 2.4 2.3 - 4.0 cm MV Decel Time 188 msec MV Decel Bacon 3 MV E/A 1.1 TR Peak Ken 2.4 m/sec TR Peak PG 22.9 mmHg RVSP 31.0 mmHg Findings Left Ventricle: Normal left ventricular systolic function. Normal left ventricular cavity size. Normal left ventricular wall thickness. Ejection fraction is visually estimated at 60 %. Right Ventricle: Normal right ventricular size. Normal right ventricular systolic function. Left Atrium: The left atrium is normal in size. Right Atrium: The right atrium is normal in size. Mitral Valve: Normal appearance and function of the mitral valve with trace physiologic regurgitation. Aortic Valve: Normal appearance of the aortic valve. No significant aortic stenosis or insufficiency. Tricuspid Valve: Normal appearance and function of the tricuspid valve with trace physiologic regurgitation. Estimated peak PA systolic pressure 31 mmHg. Pericardium: Small pericardial effusion. Aorta: Normal aortic root. IVC: Inferior vena cava without respiratory collapse, however, patient on ventilator. Conclusions 1.Normal left ventricular systolic function. Normal left ventricular cavity size. Normal left ventricular wall thickness. Ejection fraction is visually estimated at 60 %. 2.Normal right ventricular size. Normal right ventricular systolic function. 3.The left atrium is normal in size. 4.The right atrium is normal in size. 5.No significant valvular stenosis or regurgitation seen. 6.Small pericardial effusion. Electronically Signed By: Diego Nunez 25-Jun-2016 14:24:15 -0800 Patient Name: ITFFANIE ARREOLA Study Date: 25-Jun-2016 [id number]
--- NOTE | 2016-06-25 14:41 | GILP ---
DATE OF PROCEDURE: 06/24/2016 EMERGENCY ESOPHAGOGASTRODUODENOSCOPY WITH BIOPSIES BRIEF HISTORY AND INDICATIONS: The patient is hospitalized with severe anemia and hemorrhagic shock . PREMEDICATION: General anesthesia by anesthesiologist. SURGEON: Nabeel Carrasco MD. INSTRUMENT USED: Olympus panendoscope. TECHNIQUE: After informed consent, with the patient/relatives understanding the procedure, its indic ations, potential risks and complications, including but not limited to: allergic reaction, bleeding , perforation or infection, and after all pertinent questions were answered to the patients satisfac tion, the patient/relatives signed witnessed informed consent. Following this, premedication was administered slowly IV push under careful cardiovascular and respi ratory monitoring with pulse oximetry, automatic blood pressure and supervisor opening and picking. Once the sedative effect was achieved the patient was place in the left lateral decubitus, the panen doscope was introduced and advanced under visual control. Careful examination of the upper gastrointestinal tract, both on insertion as well as withdrawal of the instrument disclosed the following findings: ESOPHAGUS: The esophagus is remarkable for the presence of whitish/yellowish exudate consistent wit h kayla esophagitis. STOMACH: Upon entrance into the stomach, air was insufflated, the gastric owens distended normally. There was atrophic appearance of the stomach. No bleeding site identified. PYLORUS: The pylorus appears patent and within normal limits, with no evidence of gastric outlet ob struction. DUODENUM: The duodenal mucosa was carefully examined in the duodenal bulb as well as the second por tion of the duodenum and appears unremarkable with no evidence of duodenitis, ulcer or neoplasm. The instrument was withdrawn. On withdrawal of the instrument, single biopsy was obtained of the mi desophagus to confirm kayla esophagitis. IMPRESSION: 1. Suspected Kayla esophagitis. Biopsies obtained. 2. Atrophic gastropathy. 3. No bleeding site identified. PLAN: The patient will be continued on PPIs. Pathology will be reviewed as soon as available. Dif lucan will be added once confirmation of Kayla is obtained. The patient will be considered for co lonoscopy as she has been having bright red blood per rectum. Dictated By: NABEEL CARRASCO MS/SHILPA Conf#: [id number] DID#: [id number]
[2016-06-25] MEDS: NORepinephrine 8MG/250 ML (PMX 250 ML IV SCH (16:19)
[2016-06-25] MEDS: VANCOMYCIN HCL 250 MG/5ML POSYG NGT SCH (17:33)
[2016-06-25 18:12] LABS: HEMATOCRIT 30.2 % (37.0-47.0)
[2016-06-25] MEDS ORDERED: FUROSEMIDE 20 MG INJ IV ONE (20:30)
[2016-06-25 20:46] LABS: ADD UMIC YES; URINE BILIRUBIN (Dip) 2+ (NEGATIVE); URINE BLOOD (Dip) NEGATIVE (NEGATIVE); URINE COLOR YELLOW (YELLOW); URINE GLUCOSE (Dip) NEGATIVE (NEGATIVE); URINE KETONES (Dip) NEGATIVE (NEGATIVE); URINE LEUKOCYTE ESTERASE (Dip) NEGATIVE (NEGATIVE); URINE NITRITE (Dip) NEGATIVE (NEGATIVE); URINE TOTAL PROTEIN (Dip) 1+ (NEGATIVE); URINE UROBILINOGEN (Dip) 0.2 E.U./dL (0.1-1.0)
[2016-06-25 20:54] LABS: ICTOTEST NEGATIVE (NEGATIVE)
[2016-06-25 20:55] LABS: URINE RBCS 0-2 /HPF (0)
[2016-06-25 20:56] LABS: BACTERIA,URINE OCCASIONAL; MUCUS,URINE FEW; SQUAMOUS EPITHELIAL CELL,UR FEW
[2016-06-26] VITALS (98 sets, daily range): BP systolic 76–109; BP diastolic 45–79; PULSE 83–112; RESP 12–26
[2016-06-26] MEDS: PROPOFOL 100 ML IV SCH (00:27)
[2016-06-26] MEDS: VANCOMYCIN HCL 250 MG/5ML POSYG NGT SCH ×5 (00:27→23:52)
[2016-06-26 01:22] LABS: HEMATOCRIT 32.4 % (37.0-47.0); HEMOGLOBIN 10.6 g/dl (12.0-16.0)
--- NOTE | 2016-06-26 03:36 | PN ---
Date/Time of Note Date/Time of Note DATE: 06/25/16 TIME: 13:30 Assessment/Plan VTE Prophylaxis VTE Prophylaxis Intervention: SCD's Lines/Catheters IV Catheter Type (from Nrsg): Central Line Central line still needed: Yes Urinary Cath still in place: Yes Reason Cath still needed: terminal illness/intractable pain Assessment/Plan Assessment/Plan IMPRESSION: 1. Hemorrhagic shock secondary to gastrointestinal bleed. 2. Gastrointestinal bleed. 3. Anemia secondary to above. 4. Ventilator dependent respiratory failure. 5. Volume overload state. 6. Abnormal liver enzymes. 7. Hypokalemia PLAN: f/u EGD result cont octreotide and Protonix drip. She will be on a pressor as needed. continue vent support. will check ABG.in am A pulmonary consult has been placed. Monitor hemoglobin closely and continue transfusion as needed. Replete K+ Further workup and management per clinical course. Total time spent was 40 minutes. Subjective 24 Hr Interval Summary Free Text/Dictation intubated and sedated Exam/Review of Systems Vital Signs Vitals Vital Signs Date Time Temp Pulse Resp B/P Pulse Ox O2 Delivery O2 Flow Rate FiO2 06/25/16 21:05 30 06/25/16 20:45 90 14 95/74 100 Mechanical Ventilator 06/25/16 20:30 97.5 Intake and Output 06/25/16 06/25/16 06/26/16 15:00 23:00 07:00 Intake Total 1359.00 ml 753.00 ml Output Total 425 ml 960 ml Balance 934.00 ml -207.00 ml Exam GENERAL: The patient is intubated, sedated. Looks comfortable on vent. HEENT: No obvious head deformity. There is bruising around her right eye area. Pupils are reactive to light. CARDIOVASCULAR: Tachycardic. Regular rhythm. CHEST: Decreased breath sounds. ABDOMEN: soft EXTREMITIES: bilateral lower and upper extremity pitting edema. Results Result Diagram: 06/26/16 0033 06/25/16 0615 Results 24 hrs Laboratory Tests Test 06/25/16 05:00 06/25/16 06:15 06/25/16 13:10 06/25/16 13:25 Arterial Blood HCO3 24.9 Arterial Blood Base Excess 2.4 Arterial Blood Oxygen Saturation 98.2 H Britton Test N/A Arterial Blood Gas Puncture Site Right Radial Arterial Blood Carboxyhemoglobin 0.3 Arterial Blood Date Drawn 06/25/2016 4:40:46 AM Arterial Blood Methemoglobin 0.3 Arterial Blood pCO2 (Temp correct) 31.3 L Arterial Blood pH (Temp corrected) 7.518 H Arterial Blood pO2 (Temp corrected) 146.7 H Blood Gas A-a O2 Differential 30.4 H Blood Gas Actual Respiration Rate 16 Blood Gas Inspiratory Pressure 18.0 Blood Gas Modality VENT - AC Blood Gas Notified Time 06/25/2016 4:50:38 AM Blood Gas Notified Whom KM Blood Gas Respiration Rate 16.0 Blood Gas Specimen Source Blood arterial Blood Gas Temperature 37.0 Blood Gas Tidal Volume 450.0 FiO2 30.0 Oxyhemoglobin Percent 97.6 Total Hemoglobin 10.9 L Alanine Aminotransferase (ALT/SGPT) 125 H Albumin 1.1 L Albumin/Globulin Ratio 0.42 Alkaline Phosphatase 149 H Anion Gap 11 Anisocytosis 1+ Aspartate Amino Transf (AST/SGOT) 134 H Band Neutrophils % 45.0 H Basophils # Basophils % Blood Morphology Comment Blood Urea Nitrogen 23 H Calcium Level 6.2 L Carbon Dioxide Level 25 Chloride Level 108 Creatinine 0.63 Differential Comment MANUAL DIFF Direct Bilirubin 0.00 Eosinophils # 0.2 Eosinophils % 1.0 Ferritin 159.0 H Globulin 2.60 Glucose Level 129 # Hematocrit 29.9 L 30.9 L Hemoglobin 10.0 L 10.3 L Hepatitis B Core Total Antibody NEGATIVE Hepatitis B Surface Antigen NEGATIVE Hepatitis C Antibody REACTIVE H Hypochromasia 1+ Indirect Bilirubin 0.2 Iron Level 17 L Lymphocytes # 1.7 Lymphocytes % 10.0 L Mean Corpuscular Hemoglobin 27.2 L Mean Corpuscular Hemoglobin Concent 33.6 Mean Corpuscular Volume 80.9 L Mean Platelet Volume 6.7 L Metamyelocytes # 0.5 Metamyelocytes % 3.0 H Microcytosis 1+ Monocytes # 1.5 H Monocytes % 9.0 Myelocytes # 0.2 Myelocytes % 1.0 H Neutrophils # 5.2 Neutrophils % 31.0 L Nucleated Red Blood Cells # Nucleated Red Blood Cells % Percent Iron Saturation 18 L Platelet Count 134 #L Potassium Level 2.6 *L Red Blood Count 3.70 #L Red Cell Distribution Width 18.0 H Sodium Level 141 Total Bilirubin 0.2 Total Iron Binding Capacity 95 L Total Protein 3.7 L White Blood Count 16.7 #H Urine Bacteria OCCASIONAL Urine Bilirubin 2+ H Urine Clarity CLEAR Urine Color YELLOW Urine Glucose NEGATIVE Urine Hemoglobin NEGATIVE Urine Ictotest NEGATIVE Urine Ketones NEGATIVE Urine Leukocyte Esterase NEGATIVE Urine Microscopic RBC 0-2 Urine Microscopic WBC 0-2 Urine Mucus FEW Urine Nitrite NEGATIVE Urine Specific [place] 1.025 Urine Squamous Epithelial Cells FEW Urine Total Protein 1+ H Urine Urobilinogen 0.2 E.U./dL Urine pH 6.5 Test 06/25/16 17:55 06/26/16 00:33 Hematocrit 30.2 L 32.4 L Hemoglobin 10.0 L 10.6 L Medications Medications Current Medications Dextrose/Sodium Chloride (D5-1/2ns) 1,000 ml @ 100 mls/hr Q10H IV Last administered on 06/25/16 22:14; Admin Dose 100 MLS/HR; Start 06/24/16 at 18:48 Ondansetron HCl (Zofran Inj) 4 mg Q6H PRN IV NAUSEA AND/OR VOMITING; Start 06/24 at 19:00 Metoclopramide HCl (Reglan) 10 mg Q6H PRN IV NAUSEA AND/OR VOMITING; Start 06/24 at 19:00 Acetaminophen (Tylenol Supp) 650 mg Q4H PRN IN PAIN LEVEL 1-3 OR FEVER; Start 06/24/16 at 19:00 Morphine Sulfate (morphine) 2 mg Q4H PRN IV PAIN LEVEL 7-10; Start 06/24/16 at 19:00 Lorazepam 1 mg 1 mg Q2H PRN IV ANXIETY; Start 06/24/16 at 19:00 Pantoprazole 80 mg/Sodium Chloride 100 ml @ 10 mls/hr Q10H IV Last administered on 06/25/16 22:14; Admin Dose 10 MLS/HR; Start 06/24/16 at 18:48 Levofloxacin/ Dextrose (Levaquin 500mg/ D5W 100 ml (Pmx)) 100 ml @ 100 mls/hr Q24H IVPB Last administered on 06/25/16 13:00; Admin Dose 100 MLS/HR; Start 06/25/16 at 12:00 Vancomycin HCl (Vancomycin Oral Syringe) 250 mg Q6 NGT Last administered on 06/26 00:27; Admin Dose 250 MG; Start 06/25/16 at 18:00 RAVI BURGOS MD Jun 26, 2016 03:36 10/06 at 12:00 Vancomycin HCl (Vancomycin Oral Syringe) 250 mg Q6 NGT Last administered on 06/26 00:27; Admin Dose 250 MG; Start 06/25/16 at 18:00 RAVI BURGOS MD Jun 26, 2016 03:36
[2016-06-26 05:16] LABS: HEMATOCRIT 30.2 % (37.0-47.0); MEAN CORPUSCULAR HEMOGLOBIN 27.1 pg (29.0-33.0); MEAN CORPUSCULAR HGB CONC 33.1 g/dl (32.0-37.0); MEAN PLATELET VOLUME 6.6 fl (7.4-10.4); PLATELET COUNT 84 10^3/UL (140-440); RED BLOOD COUNT 3.68 10^6/ul (4.20-5.40); RED CELL DISTRIBUTION WIDTH 18.9 % (11.5-14.5); UNCORRECTED WBC 11.6 10^3/ul (4.8-10.8); WHITE BLOOD COUNT 11.6 10^3/ul (4.8-10.8)
[2016-06-26 05:27] LABS: POTASSIUM 3.4 mmol/L (3.5-5.1)
[2016-06-26 05:30] LABS: CREATININE 0.57 mg/dl (0.44-1.00)
[2016-06-26 05:31] LABS: MAGNESIUM 1.5 mg/dl (1.7-2.5); PHOSPHORUS 2.6 mg/dl (2.5-4.9)
[2016-06-26 05:48] LABS: CONDITION 1; LH ANALYZER COMMENTS 1; SUSPECT 1
--- NOTE | 2016-06-26 07:05 | RADRPT ---
PROCEDURE: XR Chest. CLINICAL INDICATION: Pneumonia/congestive heart failure TECHNIQUE: Chest AP portable. COMPARISON: 06/24/2016 FINDINGS: Endotracheal tube 2-3 cm above the migel. Nasogastric tube in the stomach. Right internal jugular central line with tip at SVC / RA junction The mediastinal structures are unremarkable. The heart is normal in size and configuration. The pu lmonary vascularity is normal. The lung johns are unremarkable. No consolidation is identified. The pleural spaces are unremarkable. The axial skeleton is unremarkable. IMPRESSION: No active intrathoracic disease. RPTAT: [facility] .Arturo Turcios MD, MD Date Time Electronically viewed and signed by .Arturo Turcios MD, on 06/26/2016 07:05 .B/
[2016-06-26] MEDS: NORepinephrine 8MG/250 ML (PMX 250 ML IV SCH (07:39)
[2016-06-26 07:57] LABS: AADO2 Arterial 15.1 mmHg (7.0-24.0); Allen Test ACCEPTAB; Arterial Base Excess -3.2 mmol/L (-3.0-3); Arterial COHb 0.3 % (0.0-3.0); Arterial Fraction of Oxyhgb 97.8 % (93.0-99.0); Arterial HCO3 20.7 mmol/L (22.0-26.0); Arterial MetHb 0.3 % (0.0-1.5); Arterial Total Hemglobin 11.6 g/dl (12.0-18.0); MODE VENT - AC
[2016-06-26] MEDS: DEXTROSE 5%-0.45% NACL 1,000 ML IV SCH ×2 (08:55→20:11)
[2016-06-26] MEDS: PANTOPRAZOLE IV 80 MG in SOD CHLORIDE 0.9% 100 ML IV SCH ×2 (08:56→20:07)
[2016-06-26] MEDS ORDERED: MAGNESIUM SULFATE 2 GM/50 ML 50 ML IVPB ONE (09:00)
[2016-06-26 10:20] LABS: ANISOCYTOSIS 2+; HYPOCHROMASIA 1+; LYMPHOCYTES # 0.1 10^3/ul (0.8-2.9); MONOCYTE # 0.5 10^3/ul (0.3-0.9); MYELOCYTES # 0.1; NEUTROPHIL # 7.3 10^3/ul (1.6-7.5)
[2016-06-26 10:21] LABS: PLATELET ESTIMATE PLT APPEAR DECREASED; TOXIC GRANULATION FEW
[2016-06-26] MEDS: LEVOFLOXACIN 500MG/D5W (PMX) 100 ML IVPB SCH (11:56)
[2016-06-26 12:08] LABS: HEMATOCRIT 30.7 % (37.0-47.0); HEMOGLOBIN 10.1 g/dl (12.0-16.0)
--- NOTE | 2016-06-26 13:18 | CONS ---
DATE OF ADMISSION: 06/24/2016 DATE OF CONSULTATION: 06/26/2016 PULMONARY CONSULTATION REASON FOR CONSULTATION: Respiratory distress. Thank you, Dr. Stubbs, for this consultation. HISTORY OF PRESENT ILLNESS: This is an unfortunate 40-year-old lady with a history of hepatitis C, HIV, who came in for severe anemia and respiratory distress, and was found to have a hemoglobin of 5 .4, with no active gastrointestinal bleeding noted. No hemoptysis, no hematemesis. Few further det ails are available. PAST MEDICAL HISTORY: As above. MEDICATIONS: Per chart. ALLERGIES: NONE. SOCIAL HISTORY: Nonsmoker, no alcohol, no history of drug use. FAMILY HISTORY: Noncontributory. SYSTEMS REVIEW: A 12-point review of systems currently unable to perform. PHYSICAL EXAMINATION: GENERAL: A thin lady, intubated, on mechanical ventilation, appears comfortable at rest, in no acut e distress. VITAL SIGNS: Currently afebrile. Pulse is 90, blood pressure 98/75, O2 saturation 96% on FIO2 30%. NECK: Supple. No JVD or lymphadenopathy. CARDIAC EXAM: S1, S2. No added sounds or murmurs. CHEST: Diminished air entry bilaterally. ABDOMEN: Soft, nontender. No guarding or rebound. EXTREMITIES: No cyanosis, clubbing, or edema. NEUROLOGIC: Grossly intact. No focal deficits. LABORATORY: White count 11.6, hemoglobin 12, platelets 84. BUN 17, creatinine 0.57. INR 1.43. Ar terial blood gas this morning, pH 7.41, pCO2 33, PaO2 of 159, bicarbonate was 20. IMPRESSION AND PLAN: 1. Acute gastrointestinal bleed, status post endoscopy which showed Inocencia esophagitis and atrophi c gastropathy, although no other evidence of active bleeding recognized. 2. Respiratory distress secondary to above. 3. History of human immunodeficiency virus. 4. History of hepatitis C. PLAN: The patient will be: 1. Placed on CPAP weaning trial. 2. Hopefully safely extubated, with incentive spirometry and advanced diet. 3. Consider colonoscopy for evaluation of possible lower GI bleed. Dictated By: SHADI GAUTAM MD SV/SHILPA Conf#: [id number] DID#: [id number]
[2016-06-26 13:24] LABS: AADO2 Arterial 28.3 mmHg (7.0-24.0); Allen Test ACCEPTAB; Arterial Base Excess -1.6 mmol/L (-3.0-3); Arterial COHb 0.3 % (0.0-3.0); Arterial Fraction of Oxyhgb 97.9 % (93.0-99.0); Arterial HCO3 21.9 mmol/L (22.0-26.0); Arterial MetHb 0.1 % (0.0-1.5); Arterial Total Hemglobin 10.9 g/dl (12.0-18.0); Blood Gas PS 10; MODE VENT - CPAP
--- NOTE | 2016-06-26 14:29 | CONS ---
Date/Time of Note Date/Time of Note DATE: 06/26/16 TIME: 14:26 Assessment/Plan Assessment/Plan Additional Assessment/Plan Hemorrhagic shock secondary to gastrointestinal bleed Gastrointestinal bleed * s/p EGD 06-24-15: * 1. Suspected Inocencia esophagitis. Biopsies negative for H. pylori and positive for Inoecncia * 2. Atrophic gastropathy. * 3. No bleeding site identified. * Continue PPI therapy Anemia secondary to above * Monitor H&H every 6 hours, transfuse 2 units for hemoglobin less than 7.5 Ventilator dependent respiratory failure * Successfully extubated Abnormal liver enzymes * Likely secondary to septic shock * Patient hep C positive, HCV RNA in process Hypokalemia * Currently K getting repleted Consultation Date/Type/Reason Admit Date/Time Jun 24, 2016 at 17:51 Initial Consult Date 06/24/16 Type of Consultation: GI 24 HR Interval Summary Free Text/Dictation Blood rectal tube, hemoglobin stable Esophageal biopsies positive for Inocencia, start fluconazole 200 mg IV 7 days Successfully extubated, OG tube in place, ordered ST swallow eval Exam/Review of Systems Vital Signs Vitals Vital Signs Date Time Temp Pulse Resp B/P Pulse Ox O2 Delivery O2 Flow Rate FiO2 06/26/16 13:03 97 23 100 30 06/26/16 12:15 96/69 Mechanical Ventilator 06/26/16 12:00 98.1 Intake and Output 06/25/16 06/25/16 06/26/16 15:00 23:00 07:00 Intake Total 1359.00 ml 1254.0625 ml 1066.00 ml Output Total 425 ml 1285 ml 645 ml Balance 934.00 ml -30.9375 ml 421.00 ml Exam Constitutional: alert Eyes: EOMI Respiratory: normal air movement Cardiovascular: regular rate and rhythm Gastrointestinal: non-tender, soft Extremities: edema Neurological: EPIDEMIOLOGIST II-XII intact Results Result Diagram: 06/26/16 1150 06/26/16 0400 Results 24 hrs Laboratory Tests Test 06/25/16 17:55 06/26/16 00:33 06/26/16 04:00 06/26/16 07:00 Hematocrit 30.2 L 32.4 L 30.2 L Hemoglobin 10.0 L 10.6 L 10.0 L Ammonia 11 Anion Gap 9 Anisocytosis 2+ Band Neutrophils % 29.0 H Basophils # Basophils % Blood Morphology Comment Blood Urea Nitrogen 17 Calcium Level 6.0 L Carbon Dioxide Level 24 Chloride Level 110 Creatinine 0.57 Differential Comment MANUAL DIFF Eosinophils # Eosinophils % Glucose Level 112 Hypochromasia 1+ Lymphocytes # 0.1 L Lymphocytes % 1.0 L Magnesium Level 1.5 L Mean Corpuscular Hemoglobin 27.1 L Mean Corpuscular Hemoglobin Concent 33.1 Mean Corpuscular Volume 82.0 Mean Platelet Volume 6.6 L Metamyelocytes # 0.2 Metamyelocytes % 2.0 H Monocytes # 0.5 Monocytes % 4.0 Myelocytes # 0.1 Myelocytes % 1.0 H Neutrophils # 7.3 Neutrophils % 63.0 Nucleated Red Blood Cells # Nucleated Red Blood Cells % Phosphorus Level 2.6 Platelet Count 84 #L Platelet Estimate PLT APPEAR DECREASED Potassium Level 3.4 L Red Blood Count 3.68 L Red Cell Distribution Width 18.9 H Sodium Level 140 Toxic Granulation FEW White Blood Count 11.6 #H Arterial Blood HCO3 20.7 L Arterial Blood Base Excess -3.2 L Arterial Blood Oxygen Saturation 98.4 H Britton Test ACCEPTAB Arterial Blood Gas Puncture Site Right Radial Arterial Blood Carboxyhemoglobin 0.3 Arterial Blood Date Drawn 06/26/2016 7:20:15 AM Arterial Blood Methemoglobin 0.3 Arterial Blood pCO2 (Temp correct) 33.3 L Arterial Blood pH (Temp corrected) 7.412 Arterial Blood pO2 (Temp corrected) 159.7 H Blood Gas A-a O2 Differential 15.1 Blood Gas Actual Respiration Rate 13 Blood Gas Low PEEP Setting 5.0 Blood Gas Modality VENT - AC Blood Gas Notified Time 06/26/2016 7:57:03 AM Blood Gas Notified Whom JLD Blood Gas Respiration Rate 12.0 Blood Gas Specimen Source Blood arterial Blood Gas Temperature 37.0 Blood Gas Tidal Volume 450.0 FiO2 30.0 Oxyhemoglobin Percent 97.8 Total Hemoglobin 11.6 L Test 06/26/16 11:50 06/26/16 13:00 Hematocrit 30.7 L Hemoglobin 10.1 L Arterial Blood HCO3 21.9 L Arterial Blood Base Excess -1.6 Arterial Blood Oxygen Saturation 98.3 H Britton Test ACCEPTAB Arterial Blood Gas Puncture Site Left Radial Arterial Blood Carboxyhemoglobin 0.3 Arterial Blood Date Drawn 06/26/2016 1:10:11 PM Arterial Blood Methemoglobin 0.1 Arterial Blood pCO2 (Temp correct) 32.5 L Arterial Blood pH (Temp corrected) 7.446 Arterial Blood pO2 (Temp corrected) 147.4 H Blood Gas A-a O2 Differential 28.3 H Blood Gas Actual Respiration Rate 17 Blood Gas Low PEEP Setting 5.0 Blood Gas Modality VENT - CPAP Blood Gas Notified Time 06/26/2016 1:24:43 PM Blood Gas Notified Whom JLD Blood Gas Pressure Support 10 Blood Gas Specimen Source Blood arterial Blood Gas Temperature 37.0 FiO2 30.0 Oxyhemoglobin Percent 97.9 Total Hemoglobin 10.9 L Medications Medications Current Medications Dextrose/Sodium Chloride (D5-1/2ns) 1,000 ml @ 100 mls/hr Q10H IV Last administered on 06/26/16 08:55; Admin Dose 100 MLS/HR; Start 06/24/16 at 18:48 Ondansetron HCl (Zofran Inj) 4 mg Q6H PRN IV NAUSEA AND/OR VOMITING; Start 06/24 at 19:00 Metoclopramide HCl (Reglan) 10 mg Q6H PRN IV NAUSEA AND/OR VOMITING; Start 06/24 at 19:00 Acetaminophen (Tylenol Supp) 650 mg Q4H PRN [place] PAIN LEVEL 1-3 OR FEVER; Start 06/24/16 at 19:00 Morphine Sulfate (morphine) 2 mg Q4H PRN IV PAIN LEVEL 7-10; Start 06/24/16 at 19:00 Lorazepam 1 mg 1 mg Q2H PRN IV ANXIETY; Start 06/24/16 at 19:00 Pantoprazole 80 mg/Sodium Chloride 100 ml @ 10 mls/hr Q10H IV Last administered on 06/26/16 08:56; Admin Dose 10 MLS/HR; Start 06/24/16 at 18:48 Levofloxacin/ Dextrose (Levaquin 500mg/ D5W 100 ml (Pmx)) 100 ml @ 100 mls/hr Q24H IVPB Last administered on 06/26/16 11:56; Admin Dose 100 MLS/HR; Start 06/25/16 at 12:00 Vancomycin HCl (Vancomycin Oral Syringe) 250 mg Q6 NGT Last administered on 06/26 11:57; Admin Dose 250 MG; Start 06/25/16 at 18:00 MYCHAL COLON Jun 26, 2016 14:29 Q24H IVPB Last administered on 06/26/16 11:56; Admin Dose 100 MLS/HR; Start 06/25/16 at 12:00 Vancomycin HCl (Vancomycin Oral Syringe) 250 mg Q6 NGT Last administered on 06/26 11:57; Admin Dose 250 MG; Start 06/25/16 at 18:00 MYCHAL COLON Jun 26, 2016 14:29
--- NOTE | 2016-06-26 14:48 | CONS ---
Date/Time of Note Date/Time of Note DATE: 06/26/16 TIME: 14:45 Consultation Date/Type/Reason Admit Date/Time Jun 24, 2016 at 17:51 Initial Consult Date 06/24/16 Type of Consultation: GI Exam/Review of Systems Vital Signs Vitals Vital Signs Date Time Temp Pulse Resp B/P Pulse Ox O2 Delivery O2 Flow Rate FiO2 06/26/16 13:03 97 23 100 30 06/26/16 12:15 96/69 Mechanical Ventilator 06/26/16 12:00 98.1 Intake and Output 06/25/16 06/25/16 06/26/16 15:00 23:00 07:00 Intake Total 1359.00 ml 1254.0625 ml 1066.00 ml Output Total 425 ml 1285 ml 645 ml Balance 934.00 ml -30.9375 ml 421.00 ml Results Result Diagram: 06/26/16 1150 06/26/16 0400 Results 24 hrs Laboratory Tests Test 06/25/16 17:55 06/26/16 00:33 06/26/16 04:00 06/26/16 07:00 Hematocrit 30.2 L 32.4 L 30.2 L Hemoglobin 10.0 L 10.6 L 10.0 L Ammonia 11 Anion Gap 9 Anisocytosis 2+ Band Neutrophils % 29.0 H Basophils # Basophils % Blood Morphology Comment Blood Urea Nitrogen 17 Calcium Level 6.0 L Carbon Dioxide Level 24 Chloride Level 110 Creatinine 0.57 Differential Comment MANUAL DIFF Eosinophils # Eosinophils % Glucose Level 112 Hypochromasia 1+ Lymphocytes # 0.1 L Lymphocytes % 1.0 L Magnesium Level 1.5 L Mean Corpuscular Hemoglobin 27.1 L Mean Corpuscular Hemoglobin Concent 33.1 Mean Corpuscular Volume 82.0 Mean Platelet Volume 6.6 L Metamyelocytes # 0.2 Metamyelocytes % 2.0 H Monocytes # 0.5 Monocytes % 4.0 Myelocytes # 0.1 Myelocytes % 1.0 H Neutrophils # 7.3 Neutrophils % 63.0 Nucleated Red Blood Cells # Nucleated Red Blood Cells % Phosphorus Level 2.6 Platelet Count 84 #L Platelet Estimate PLT APPEAR DECREASED Potassium Level 3.4 L Red Blood Count 3.68 L Red Cell Distribution Width 18.9 H Sodium Level 140 Toxic Granulation FEW White Blood Count 11.6 #H Arterial Blood HCO3 20.7 L Arterial Blood Base Excess -3.2 L Arterial Blood Oxygen Saturation 98.4 H Britton Test ACCEPTAB Arterial Blood Gas Puncture Site Right Radial Arterial Blood Carboxyhemoglobin 0.3 Arterial Blood Date Drawn 06/26/2016 7:20:15 AM Arterial Blood Methemoglobin 0.3 Arterial Blood pCO2 (Temp correct) 33.3 L Arterial Blood pH (Temp corrected) 7.412 Arterial Blood pO2 (Temp corrected) 159.7 H Blood Gas A-a O2 Differential 15.1 Blood Gas Actual Respiration Rate 13 Blood Gas Low PEEP Setting 5.0 Blood Gas Modality VENT - AC Blood Gas Notified Time 06/26/2016 7:57:03 AM Blood Gas Notified Whom JLD Blood Gas Respiration Rate 12.0 Blood Gas Specimen Source Blood arterial Blood Gas Temperature 37.0 Blood Gas Tidal Volume 450.0 FiO2 30.0 Oxyhemoglobin Percent 97.8 Total Hemoglobin 11.6 L Test 06/26/16 11:50 06/26/16 13:00 Hematocrit 30.7 L Hemoglobin 10.1 L Arterial Blood HCO3 21.9 L Arterial Blood Base Excess -1.6 Arterial Blood Oxygen Saturation 98.3 H Britton Test ACCEPTAB Arterial Blood Gas Puncture Site Left Radial Arterial Blood Carboxyhemoglobin 0.3 Arterial Blood Date Drawn 06/26/2016 1:10:11 PM Arterial Blood Methemoglobin 0.1 Arterial Blood pCO2 (Temp correct) 32.5 L Arterial Blood pH (Temp corrected) 7.446 Arterial Blood pO2 (Temp corrected) 147.4 H Blood Gas A-a O2 Differential 28.3 H Blood Gas Actual Respiration Rate 17 Blood Gas Low PEEP Setting 5.0 Blood Gas Modality VENT - CPAP Blood Gas Notified Time 06/26/2016 1:24:43 PM Blood Gas Notified Whom JLD Blood Gas Pressure Support 10 Blood Gas Specimen Source Blood arterial Blood Gas Temperature 37.0 FiO2 30.0 Oxyhemoglobin Percent 97.9 Total Hemoglobin 10.9 L Medications Medications Current Medications Dextrose/Sodium Chloride (D5-1/2ns) 1,000 ml @ 100 mls/hr Q10H IV Last administered on 06/26/16t 08:55; Admin Dose 100 MLS/HR; Start 06/24/16 at 18:48 Ondansetron HCl (Zofran Inj) 4 mg Q6H PRN IV NAUSEA AND/OR VOMITING; Start 06/24 at 19:00 Metoclopramide HCl (Reglan) 10 mg Q6H PRN IV NAUSEA AND/OR VOMITING; Start 06/24 at 19:00 Acetaminophen (Tylenol Supp) 650 mg Q4H PRN ME PAIN LEVEL 1-3 OR FEVER; Start 06/24/16 at 19:00 Morphine Sulfate (morphine) 2 mg Q4H PRN IV PAIN LEVEL 7-10; Start 06/24/16 at 19:00 Lorazepam 1 mg 1 mg Q2H PRN IV ANXIETY; Start 06/24/16 at 19:00 Pantoprazole 80 mg/Sodium Chloride 100 ml @ 10 mls/hr Q10H IV Last administered on 06/26/16 08:56; Admin Dose 10 MLS/HR; Start 06/24/16 at 18:48 Levofloxacin/ Dextrose (Levaquin 500mg/ D5W 100 ml (Pmx)) 100 ml @ 100 mls/hr Q24H IVPB Last administered on 06/26/16 11:56; Admin Dose 100 MLS/HR; Start 06/25/16 at 12:00 Vancomycin HCl (Vancomycin Oral Syringe) 250 mg Q6 NGT Last administered on 06/26 11:57; Admin Dose 250 MG; Start 06/25/16 at 18:00 [facility] Jun 26, 2016 14:48 Morphine Sulfate (morphine) 2 mg Q4H PRN IV PAIN LEVEL 7-10; Start 06/24/16 at 19:00 Lorazepam 1 mg 1 mg Q2H PRN IV ANXIETY; Start 06/24/16 at 19:00 Pantoprazole 80 mg/Sodium Chloride 100 ml @ 10 mls/hr Q10H IV Last administered on 06/26/16 08:56; Admin Dose 10 MLS/HR; Start 06/24/16 at 18:48 Levofloxacin/ Dextrose (Levaquin 500mg/ D5W 100 ml (Pmx)) 100 ml @ 100 mls/hr Q24H IVPB Last administered on 06/26/16 11:56; Admin Dose 100 MLS/HR; Start 06/25/16 at 12:00 Vancomycin HCl (Vancomycin Oral Syringe) 250 mg Q6 NGT Last administered on 06/26 11:57; Admin Dose 250 MG; Start 06/25/16 at 18:00 [facility] Jun 26, 2016 14:48
[2016-06-26] MEDS: morphine 2 MG INJ IV PRN ×2 (15:04→20:10)
[2016-06-26] MEDS ORDERED: POTASSIUM CHLORIDE 20 MEQ in SOD CHLORIDE 0.9% 100 ML IVPB ONE (16:30)
[2016-06-26] MEDS: FLUCONAZOLE 200 MG/NS (PMX) 100 ML IVPB SCH (16:33)
--- NOTE | 2016-06-26 18:04 | RADRPT ---
PROCEDURE: Renal US. CLINICAL INDICATION: Renal dysfunction. TECHNIQUE: Multiple sonographic images of the kidneys and urinary bladder were obtained. The imag es were reviewed on a PACS workstation. COMPARISON: No prior studies are available for comparison. FINDINGS: The right kidney measures 9.6 cm. The left kidney measures 8.9 cm. There is no renal mass. There is no hydronephrosis. There is no renal calculus. Renal parenchymal thickness and echogenicity is normal bilaterally. The perirenal regions are normal with no fluid collection or mass. There is a Hughes catheter in the urinary bladder. There is a small amount of ascites. IMPRESSION: 1. Bilateral hyperechoic kidneys consistent with medical renal disease. 2. No hydronephrosis. 3. Hughes catheter in the bladder. 4. Small amount of ascites. 5. Otherwise unremarkable study. RPTAT: QQ .Patricio Phillips MD, Date Time Electronically viewed and signed by .Patricio Phillips MD, on 06/26/2016 18:04 .R/
[2016-06-26 18:13] LABS: LYMPHOCYTE - % CD4 (HELPER) 38 % (30-61); LYMPHOCYTE - %CD8 (SUPPRESSOR) 51 % (12-42); LYMPHOCYTE - ABSOLUTE CD4 903 cells/uL (490-1740); LYMPHOCYTE - ABSOLUTE CD8 1193 cells/uL (180-1170); LYMPHOCYTE - CD4/CD8 RATIO 0.76 (0.86-5.00)
[2016-06-26 18:21] LABS: HEMATOCRIT 25.9 % (37.0-47.0); HEMOGLOBIN 8.6 g/dl (12.0-16.0)
--- NOTE | 2016-06-26 18:23 | PN ---
DATE: 06/26/2016 Time seen 1600. SUBJECTIVE: The patient remains intubated, sedated and continued on a pressor. She had an EGD yest erday which was a finding of atrophic gastropathy and a suspected Inocencia esophagitis without source of bleeding. PHYSICAL EXAMINATION: VITAL SIGNS: Blood pressure 91/47, heart rate 97, respiratory rate 19, temperature 98.4, oxygen sat uration 100% on 30% FIO2 on a vent. GENERAL: Intubated and sedated, looks comfortable on the vent. HEENT: No obvious head deformity. Pupils are reactive to light. CARDIOVASCULAR: Tachycardic with regular rhythm. LUNGS: With good air movement. No wheezes or rhonchi. ABDOMEN: Soft. Positive bowel sounds, nondistended. EXTREMITIES: She has pitting edema in both upper and lower extremities bilaterally. LABORATORY: WBC 11.6 from 16.7 yesterday, hemoglobin 10, platelet count 84, potassium 3.4, calcium 6 with an albumin of 1.1 and magnesium 1.5. IMAGING: Chest x-ray shows no acute intrathoracic disease. IMPRESSION: 1. Hemorrhagic shock. 2. Gastrointestinal bleed, status post EGD with no bleeding site identified. 3. Anemia secondary to above. 4. Ventilator dependent respiratory failure. 5. Abnormal liver enzymes with a normal right upper quadrant ultrasound. 6. Electrolyte abnormalities. 7. Systemic inflammatory response syndrome with tachycardia and leukocytosis with leukocytosis, imp roving significantly. Likely stress-induced from hemorrhagic shock. 8. Thrombocytopenia. We will continue vent and pressor support. The patient is status post EGD yesterday with the findin g of atrophic gastropathy and probable Inocencia esophagitis. There was no bleeding source that was i dentified. We will continue to monitor her hemoglobin and transfuse as needed. Will correct electr olytes as needed. Leukocytosis has improved significantly and so far urinalysis and blood culture a s well as C difficile toxin have been negative. We will also monitor her platelets closely and cotto sfuse as needed. Currently, pulmonary is on board and managing her vent. Further workup and management per clinical course. Total critical time spent is about 40 minutes. Dictated By: RAVI LAWLER/SHILPA Conf#: [id number] DID#: [id number]
[2016-06-27] VITALS (83 sets, daily range): BP systolic 89–109; BP diastolic 46–73; PULSE 82–101; RESP 11–26
[2016-06-27] MEDS: NORepinephrine 8MG/250 ML (PMX 250 ML IV SCH
[2016-06-27 01:53] LABS: HEMATOCRIT 23.7 % (37.0-47.0)
[2016-06-27 05:51] LABS: CHLORIDE 112 mmol/L (97-110); SODIUM 141 mmol/L (135-144)
[2016-06-27 05:52] LABS: POTASSIUM 3.3 mmol/L (3.5-5.1)
[2016-06-27 05:54] LABS: ALANINE AMINOTRANSFERASE 92 IU/L (13-69); ALKALINE PHOSPHATASE 118 IU/L (42-121); ANION GAP 8 (8-16); ASPARTATE AMINO TRANSFERASE 54 IU/L (15-46); BILIRUBIN,INDIRECT 0.1 mg/dl (0-1.1); BILIRUBIN,TOTAL 0.1 mg/dl (0.2-1.3); BLOOD UREA NITROGEN 14 mg/dl (7-20); CARBON DIOXIDE 24 mmol/L (21-31); CREATININE 0.59 mg/dl (0.44-1.00); GLUCOSE 82 mg/dl (70-220)
[2016-06-27] MEDS: VANCOMYCIN HCL 250 MG/5ML POSYG NGT SCH ×3 (05:56→18:12)
[2016-06-27] MEDS: DEXTROSE 5%-0.45% NACL 1,000 ML IV SCH ×2 (05:56→07:55)
[2016-06-27 06:05] LABS: HEMATOCRIT 23.4 % (37.0-47.0); HEMOGLOBIN 7.9 g/dl (12.0-16.0)
[2016-06-27] MEDS ORDERED: SOD CHLORIDE 0.9% 250 ML IV* ONE (06:46)
[2016-06-27 06:47] LABS: ALBUMIN < 1.0 g/dl (3.3-4.9)
[2016-06-27] MEDS: PANTOPRAZOLE IV 80 MG in SOD CHLORIDE 0.9% 100 ML IV SCH ×2 (07:54→16:48)
--- NOTE | 2016-06-27 08:18 | RADRPT ---
PROCEDURE: XR Chest. CLINICAL INDICATION: Pneumonia. CHF. TECHNIQUE: Single portable view of the chest was obtained COMPARISON: Portable chest 06/26/2016 FINDINGS: Again noted is a right central venous catheter unchanged position. Nasogastric tube extends in the right upper abdomen. The patient is told of the right and rotated to the right with a poor inspirat ion. The heart is within normal limits in size without pulmonary vascular congestion acute lung con solidation pleural effusions and pneumothorax. IMPRESSION: No evidence of congestive heart failure pneumonia. RPTAT:AAJJ Physician Ronda Date Time Electronically viewed and signed by Physician Ronda on 06/27/2016 08:17 BM/
--- NOTE | 2016-06-27 11:03 | CONS ---
Date/Time of Note Date/Time of Note DATE: 06/27/16 TIME: 11:01 Consult Date/Type/Reason Admit Date/Time Jun 24, 2016 at 17:51 Initial Consult Date 06/24/16 Type of Consultation: pulmonary Subjective Patient extubated yesterday awake alert comfortable Still remains somewhat nonverbal Objective Vital Signs Date Time Temp Pulse Resp B/P Pulse Ox O2 Delivery O2 Flow Rate FiO2 06/27/16 10:30 94 17 103/64 100 Room Air 06/27/16 08:00 98.2 06/26/16 13:03 30 Intake and Output 06/26/16 06/26/16 06/27/16 15:00 23:00 07:00 Intake Total 1243.50 ml 1185.00 ml 1000.00 ml Output Total 220 ml 225 ml 400 ml Balance 1023.50 ml 960.00 ml 600.00 ml PHYSICAL EXAMINATION: GENERAL: A thin lady, nasal cannula oxygen VITAL SIGNS: As above NECK: Supple. No JVD or lymphadenopathy. CARDIAC EXAM: S1, S2. No added sounds or murmurs. CHEST: Diminished air entry bilaterally. ABDOMEN: Soft, nontender. No guarding or rebound. EXTREMITIES: No cyanosis, clubbing, or edema. NEUROLOGIC: Generalized weakness Results/Medications Result Diagram: 06/27/16 0500 06/27/16 0500 Results 24 hrs Laboratory Tests Test 06/26/16 11:50 06/26/16 13:00 06/26/16 18:00 06/27/16 00:35 Hematocrit 30.7 L 25.9 L 23.7 L Hemoglobin 10.1 L 8.6 L 8.0 L Arterial Blood HCO3 21.9 L Arterial Blood Base Excess -1.6 Arterial Blood Oxygen Saturation 98.3 H Britton Test ACCEPTAB Arterial Blood Gas Puncture Site Left Radial Arterial Blood Carboxyhemoglobin 0.3 Arterial Blood Date Drawn 06/26/2016 1:10:11 PM Arterial Blood Methemoglobin 0.1 Arterial Blood pCO2 (Temp correct) 32.5 L Arterial Blood pH (Temp corrected) 7.446 Arterial Blood pO2 (Temp corrected) 147.4 H Blood Gas A-a O2 Differential 28.3 H Blood Gas Actual Respiration Rate 17 Blood Gas Low PEEP Setting 5.0 Blood Gas Modality VENT - CPAP Blood Gas Notified Time 06/26/2016 1:24:43 PM Blood Gas Notified Whom JLD Blood Gas Pressure Support 10 Blood Gas Specimen Source Blood arterial Blood Gas Temperature 37.0 FiO2 30.0 Oxyhemoglobin Percent 97.9 Total Hemoglobin 10.9 L Test 06/27/16 05:00 Alanine Aminotransferase (ALT/SGPT) 92 H Albumin < 1.0 L Albumin/Globulin Ratio 0.50 Alkaline Phosphatase 118 Anion Gap 8 Aspartate Amino Transf (AST/SGOT) 54 H Blood Urea Nitrogen 14 Calcium Level 6.0 L Carbon Dioxide Level 24 Chloride Level 112 H Creatinine 0.59 Direct Bilirubin 0.00 Globulin 2.00 Glucose Level 82 Hematocrit 23.4 L Hemoglobin 7.9 L Indirect Bilirubin 0.1 Potassium Level 3.3 L Sodium Level 141 Total Bilirubin 0.1 L Total Protein 3.0 L Medications Current Medications Dextrose/Sodium Chloride (D5-1/2ns) 1,000 ml @ 100 mls/hr Q10H IV Last administered on 06/27/16 07:55; Admin Dose 100 MLS/HR; Start 06/24/16 at 18:48 Ondansetron HCl (Zofran Inj) 4 mg Q6H PRN IV NAUSEA AND/OR VOMITING; Start 06/24 at 19:00 Metoclopramide HCl (Reglan) 10 mg Q6H PRN IV NAUSEA AND/OR VOMITING; Start 06/24 at 19:00 Acetaminophen (Tylenol Supp) 650 mg Q4H PRN [place] PAIN LEVEL 1-3 OR FEVER; Start 06/24/16 at 19:00 Morphine Sulfate (morphine) 2 mg Q4H PRN IV PAIN LEVEL 7-10 Last administered on 06/26/16 20:10; Admin Dose 2 MG; Start 06/24/16 at 19:00 Lorazepam 1 mg 1 mg Q2H PRN IV ANXIETY; Start 06/24/16 at 19:00 Pantoprazole 80 mg/Sodium Chloride 100 ml @ 10 mls/hr Q10H IV Last administered on 06/27/16 07:54; Admin Dose 10 MLS/HR; Start 06/24/16 at 18:48 Levofloxacin/ Dextrose (Levaquin 500mg/ D5W 100 ml (Pmx)) 100 ml @ 100 mls/hr Q24H IVPB Last administered on 06/26/16 11:56; Admin Dose 100 MLS/HR; Start 06/25/16 at 12:00 Vancomycin HCl 250 mg 250 mg Q6 NGT Last administered on 06/27/16 05:56; Admin Dose 250 MG; Start 06/25/16 at 18:00 Fluconazole (Diflucan 200 Mg/ NS (Pmx)) 100 ml @ 100 mls/hr Q24H IVPB Last administered on 06/26/16 16:33; Admin Dose 100 MLS/HR; Start 06/26/16 at 15:00; Stop 07/03/16 at 06:00 Assessment/Plan Chief Complaint/Hosp Course IMPRESSION AND PLAN: 1. Acute gastrointestinal bleed, status post endoscopy which showed Inocencia esophagitis and atrophic gastropathy, although no other evidence of active bleeding recognized. 2. Status post respiratory failure 3. History of human immunodeficiency virus. 4. History of hepatitis C. PLAN: The patient will be: 1. Continue supplemental O2 2. Speech therapy evaluation 3. GI recommendations need for colonoscopy? hospital food service worker evaluation Transfer to telemetry okay from pulmonary standpoint Problems: SHADI GAUTAM MD, [facility] Jun 27, 2016 11:02
[2016-06-27] MEDS: LEVOFLOXACIN 500MG/D5W (PMX) 100 ML IVPB SCH (11:55)
[2016-06-27] MEDS: morphine 2 MG INJ IV PRN ×2 (12:01→18:13)
[2016-06-27 13:38] LABS: MYELOPEROXIDASE ANTIBODY <1.0 AI; PROTEINASE-3 ANTIBODY <1.0 AI
--- NOTE | 2016-06-27 13:53 | PDOCDIS ---
Discharge Instructions CONDITION Patient Condition: Guarded HOME CARE INSTRUCTIONS: Special Diet: [place] Thick diet ACTIVITY: Activity Restrictions: Slowly Increase Activity FOLLOW UP/APPOINTMENTS Appointments your are being transferred to [place] for continued care RAVI BURGOS MD Jun 27, 2016 13:53
[2016-06-27] MEDS ORDERED: POTASSIUM CHLORIDE 20 MEQ in SOD CHLORIDE 0.9% 100 ML IVPB ONE (15:00)
--- NOTE | 2016-06-27 15:00 | DS ---
DATE OF ADMISSION: 06/24/2016 DATE OF DISCHARGE: 06/27/2016 The patient is being transferred to [facility]. CONSULTATIONS: 1. Gastroenterology, Dr. Nabeel Carrasco. 2. Pulmonary, Dr. Jose Smith. HOSPITAL COURSE: The patient is a 40-year-old female with a history of HIV and hepatitis C, who was brought by EMS with an initial complaint of shortness of breath. Upon arrival to the ER she was in tubated. She was intubated because she was unresponsive, even though she has never lost her pulse. Also on examination she was found to have large amount of bloody and watery diarrhea. When she wal ked into the ER, her hemoglobin was 7.3 and within 3 hours it had dropped to 5.4. The patient was g iven a blood transfusion and was also started on a pressor for a blood pressure of 75/51. The patie nt was admitted to the ICU and underwent an EGD which showed atrophic gastropathy and suspected Cand mari esophagitis, without a bleeding source identified. As far as her other laboratory results are c oncerned, she came in with a WBC of 13,000, which increased to almost 17,000, and then dropped down to around 11,000 yesterday. Blood culture and a urine culture, as well as C. difficile toxin have b een negative. The patient also came in with abnormal liver enzymes, with an AST of 172, ALT of 146, and alkaline phosphatase of 181. Since admission liver chemistries have been improving and today A ST is 54, ALT 92 and alkaline phosphatase has normalized at 118. Her bilirubin has been normal. A right upper quadrant ultrasound was done, which showed an unremarkable liver, gallbladder and biliar y tree. Also a head CT was done, which showed no definite intracranial hemorrhage, infarct or mass effect. Her chest x-rays have been clear. The patient was successfully extubated yesterday and curr ently she appears weak, but able to communicate and tolerating a nectar thick diet. She is currentl y on 4 mcg of Levophed and if we are able to be titrate it off and if she maintains a normal blood pressure, then she will be transferred to [facility] for continued care. As far as her hemoglobin is co ncerned, after transfusion her hemoglobin went up from 5.4 to as high as 10. Today it is 7.9. She will be given 1 unit of transfusion now. The patient also was in a volume overloaded state, with si gnificant bilateral upper and lower extremity pitting edema. She also has decreased urine output to day, around 20-30 mL per hour. Her kidney function has been normal, all along, but a renal ultrasound was done which showed bilateral hyperechoic kidneys, consistent with medical renal disease. Her BUN is 14 an d her creatinine is 0.69. Again, if we are able to wean her off pressors, she will be transferred t [facility] [place], where she needs to be seen by a sprayer machine for a colonoscopy. Of note, she did te ll me today that she had a colonoscopy at [facility] a few days prior to hospitalization for a GI bleed, and she thinks no bleeding source was identified. CONDITION ON DISCHARGE: Stable. MEDICATIONS UPON DISCHARGE: 1. Fluconazole. 2. Vancomycin oral. 3. Levofloxacin. 4. Zofran. 5. Reglan. 6. Albuterol Atrovent 7. Tylenol. 8. Morphine. 9. Ativan. 10. Protonix. FOLLOWUP INSTRUCTIONS: The patient is being transferred to [facility] for continued care. Total time spent with this discharge summary was about 40 minutes. Dictated By: RAVI LAWLER/SHILPA Conf#: [id number] DID#: [id number]
[2016-06-27] MEDS: FLUCONAZOLE 200 MG/NS (PMX) 100 ML IVPB SCH (15:36)
[2016-06-27 18:14] LABS: HEMATOCRIT 34.8 % (37.0-47.0); HEMOGLOBIN 11.6 g/dl (12.0-16.0)
--- NOTE | 2016-06-28 10:30 | GILP ---
DATE OF PROCEDURE: 06/25/2016 DATE: 06/25/2016 NAME OF PROCEDURE: Colonoscopy with multiple biopsies. SURGEON: Lm Carrasco MD. PREOPERATIVE DIAGNOSIS(ES): ____ POSTOPERATIVE DIAGNOSIS(ES): ____ HISTORY AND INDICATIONS: The patient is being evaluated for hematochezia. PREMEDICATION: General anesthesia by anesthesiologist. INSTRUMENT USED: Olympus colonoscope. PREPARATION: Fair. TECHNIQUE: After informed consent, with the patient/relatives understanding the procedure, its indic ations potential risks and complications, including but not limited to: allergic reaction, bleeding, perforation, infection, missed lesions and after all pertinent questions were answered to the patie nt's satisfaction, the patient/relatives signed the witnessed informed consent. Following this, premedication was administered slowly IV push by under careful cardiovascular and re spiratory monitoring with pulse oximetry, automatic blood pressure and nurse monitoring. Once the sedativ e effect was achieved, the patient was placed in the left lateral decubitus position, digital rectal examination was performed. The colonoscope was then introduced and advanced under visual control th roughout all segments of the colon including: the rectum, sigmoid, descending colon, splenic flexure , transverse colon, hepatic flexure, ascending colon and finally reaching the cecum which was clearl y identified by transillumination, finger indentation and the ileocecal valve. Careful examination o f the mucosa of the lower gastrointestinal tract both on insertion as well as withdrawal of the inst rument disclosed the following findings: Rectal Examination: Small external hemorrhoids are noted. Colonic Mucosa: There is severe colitis with deep ulcerations and a few areas that appear to be spa red, "skipped areas". The process is much more severe in the left side of the colon, but extends al l the way to the right side of the colon. The ileocecal valve was clearly identified and the termin al ileum was entered briefly. Biopsies were obtained in a limited fashion. The instrument was then withdrawn, the patient tolerated the procedure well and was transferred out of the Endoscopy Suite awake and in good condition to continue recovery under observation. IMPRESSION: Severe colitis with deep ulcerations in skip areas areas suggestive of possibility of C rohn's disease. There is also exudate that raises the question of pseudomembranous colitis. Coloni c effluent and biopsies were obtained. PLAN: Get toxin IBD serology pathology. Review pathology as soon as available. Further recommenda tion will depend on the patient's clinical course. Vancomycin will be started. Dictated By: LM MASSEY Conf#: [id number] DID#: [id number]
== END 2016-06-27 23:30 | disposition short-term general hospital (02) | DRG 974 ==
LOC: E/R 12:58 → ICU 17:51
PROVIDERS: ADMIT Internal Medicine; ATTEND Internal Medicine
PROC: 5A1945Z Respiratory Ventilation, 24-96 Consecutive Hours (ICD-10-PCS; 2016-06-24)
PROC: 0BH17EZ Insertion of Endotracheal Airway into Trachea, Via Natural or Artificial Opening (ICD-10-PCS; 2016-06-24)
PROC: 0DB28ZX Excision of Middle Esophagus, Via Natural or Artificial Opening Endoscopic, Diagnostic (ICD-10-PCS; 2016-06-24)
PROC: 30233N1 Transfusion of Nonautologous Red Blood Cells into Peripheral Vein, Percutaneous Approach (ICD-10-PCS; principal; 2016-06-24 17:30)
PROC: 0DBE8ZX Excision of Large Intestine, Via Natural or Artificial Opening Endoscopic, Diagnostic (ICD-10-PCS; 2016-06-25)
DX: B20 Human immunodeficiency virus [HIV] disease (principal); R57.8 Other shock; B37.81 Candidal esophagitis; J96.90 Respiratory failure, unspecified, unspecified whether with hypoxia or hypercapnia; R65.10 Systemic inflammatory response syndrome (SIRS) of non-infectious origin without acute organ dysfunction; D69.6 Thrombocytopenia, unspecified; K51.90 Ulcerative colitis, unspecified, without complications; K92.2 Gastrointestinal hemorrhage, unspecified; E87.70 Fluid overload, unspecified; B19.20 Unspecified viral hepatitis C without hepatic coma; D64.9 Anemia, unspecified; E87.6 Hypokalemia; K31.9 Disease of stomach and duodenum, unspecified; N28.9 Disorder of kidney and ureter, unspecified
CPT/HCPCS: 31500; 36415; 36430; 36600; 70450; 71010; 72125; 76705; 76775; 76937; 80048; 80053; 81001; 81003; 82140; 82270; 82728; 82803; 83540; 83605; 83735; 84100; 84484; 85014; 85018; 85025; 85610; 85730; 86021; 86360; 86644; 86704; 86709; 86803; 86850; 86900; 86901; 86920; 87040; 87045; 87075; 87081; 87086; 87340; 87522; 87536; 88305; 88312; 88313; 92610; 93005; 93306; 94002; 94003; 94770; 96372; 96374; 96375; J1940; C9113; J0330; J1956; J2270; J3370; J3475; J3480; J7030; J7040; P9016

== ENCOUNTER 2016-08-08 20:22 | Inpatient (IN) | payer MEDICAID ==
[~2016-08-08] VITALS: Ht 170.2 cm; Wt 44.6 kg
[~2016-08-08 20:22] MED LIST changes: -ETOMIDATE 20 MG INJ ONE; +MESA1.2T2 PO; +VALG450T3 PO
[2016-08-08] MEDS ORDERED: PIPER-TAZO 3.375 GM IV (PMX) 100 ML IVPB STA (20:25)
[2016-08-08] MEDS ORDERED: SODIUM CHLORIDE 0.9% 1L BAG IV* STA (20:25)
[2016-08-08] MEDS ORDERED: VANCOMYCIN 1 GM (PMX) 250 ML IVPB STA (20:25)
[2016-08-08] MEDS ORDERED: CLINDAMYCIN 900 MG/D5W (PMX) 50 ML IVPB STA (20:25)
--- NOTE | 2016-08-08 20:41 | ERA ---
ER Documentation Chief Complaint Date/Time DATE: 08/08/16 TIME: 20:32 Chief Complaint ROS All systems reviewed and are negative except as per history of present illness. Medications Home Meds Reported Medications Mesalamine (Lialda) 1.2 Gm Tablet.dr, 1.2 GM PO 06/25/16 Valganciclovir HCl (Valganciclovir HCl) 450 Mg Tablet, 450 MG PO, TAB 06/25/16 Allergies Allergies: Coded Allergies: hydrocortisone (Verified Allergy, Unknown, 10/12/13) ibuprofen (Verified Allergy, Unknown, 10/12/13) PMhx/Soc Hx Psychiatric Problems: Yes (PER EMS - ANXIETY) Hx Miscellaneous Medical Probl: No Hx Alcohol Use: No Hx Substance Use: No Hx Tobacco Use: Yes Physical Exam Physical Exam Const: [] Head: Atraumatic Eyes: Normal Conjunctiva ENT: Normal External Ears, Nose and Mouth. Neck: Full range of motion..~ No meningismus. Resp: Clear to auscultation bilaterally Cardio: Regular rate and rhythm, no murmurs Abd: Soft, non tender, non distended. Normal bowel sounds Skin: No petechiae or rashes Back: No midline or flank tenderness Ext: No cyanosis, or edema Neur: Awake and alert Psych: Normal Mood and Affect Results 24 hrs Current Medications Medications (Trade) Dose Ordered Sig/Dianne Route PRN Reason Start Time Stop Time Status Last Admin Dose Admin Sodium Chloride 1860 ml 1,860 ml BOLUS OVER 2 HOURS STAT IV* 08/08/16 20:25 08/08/16 20:28 DC Vancomycin HCl 250 ml @ 125 mls/hr ONCE STAT IVPB 08/08/16 20:25 08/08/16 22:24 Clindamycin HCl/ Dextrose 50 ml @ 50 mls/hr ONCE STAT IVPB 08/08/16 20:25 08/08/16 21:24 Piperacillin Sod/ Tazobactam Sod (Zosyn 3.375gm/ 100 ml (Pmx)) 100 ml @ 100 mls/hr ONCE STAT IVPB 08/08/16 20:25 08/08/16 21:24 ZAY DAUGHERTY Aug 08, 2016 20:40
[2016-08-08] MEDS ORDERED: LORAZEPAM 2 MG INJ IM ONE (22:00)
--- NOTE | 2016-08-08 22:43 | RADRPT ---
PROCEDURE: XR Chest. CLINICAL INDICATION: Shortness of breath. TECHNIQUE: A single portable view of the chest was obtained. COMPARISON: 06/27/2016 FINDINGS: The right internal jugular catheter and nasogastric tube have been removed. The cardiomediastinal s ilhouette is within normal limits. The lungs and pleural spaces are clear. The soft tissues and os seous structures are unremarkable. IMPRESSION: No acute cardiopulmonary disease. RPTAT: HPNM Physician Rachael Date Time Electronically viewed and signed by Lino Ochoa Physician on 08/08/2016 22:43 /
[2016-08-08 23:19] LABS: BASOPHILS % 0.3 % (0.0-2.0); HEMATOCRIT 23.2 % (37.0-47.0); HEMOGLOBIN 7.8 g/dl (12.0-16.0); LYMPHOCYTES # 1.1 10^3/ul (0.8-2.9); LYMPHOCYTES % 27.4 % (15.0-51.0); MEAN CORPUSCULAR HEMOGLOBIN 29.9 pg (29.0-33.0); MEAN CORPUSCULAR HGB CONC 33.4 g/dl (32.0-37.0); MEAN CORPUSCULAR VOLUME 89.5 fl (82.0-101.0); MEAN PLATELET VOLUME 6.8 fl (7.4-10.4); MONOCYTE # 0.3 10^3/ul (0.3-0.9); MONOCYTES % 6.6 % (0.0-11.0); NEUTROPHIL # 2.8 10^3/ul (1.6-7.5); NEUTROPHILS % 65.7 % (39.0-77.0); PLATELET COUNT 311 10^3/UL (140-440); RED BLOOD COUNT 2.59 10^6/ul (4.20-5.40); RED CELL DISTRIBUTION WIDTH 21.5 % (11.5-14.5); UNCORRECTED WBC 4.2 10^3/ul (4.8-10.8); WHITE BLOOD COUNT 4.2 10^3/ul (4.8-10.8)
[2016-08-08 23:20] LABS: CONDITION 1; LH ANALYZER COMMENTS 1
[2016-08-08 23:31] LABS: CHLORIDE 101 mmol/L (97-110); INR 1.55; PROTIME 18.7 Sec (12.2-14.2); PT RATIO 1.5
[2016-08-08 23:32] LABS: ALBUMIN 1.4 g/dl (3.3-4.9); PARTIAL THROMBOPLASTIN TIME 31.1 Sec (25.0-35.0); SODIUM 135 mmol/L (135-144)
[2016-08-08 23:33] LABS: POTASSIUM 3.8 mmol/L (3.5-5.1)
[2016-08-08 23:35] LABS: ALANINE AMINOTRANSFERASE 58 IU/L (13-69); ALBUMIN/GLOBULIN RATIO 0.53; ALKALINE PHOSPHATASE 210 IU/L (42-121); ANION GAP 9 (8-16); ASPARTATE AMINO TRANSFERASE 40 IU/L (15-46); BILIRUBIN,INDIRECT 0.2 mg/dl (0-1.1); BILIRUBIN,TOTAL 0.2 mg/dl (0.2-1.3); BLOOD UREA NITROGEN 11 mg/dl (7-20); CARBON DIOXIDE 29 mmol/L (21-31); CREATININE 0.43 mg/dl (0.44-1.00); GLUCOSE 74 mg/dl (70-220)
[2016-08-08 23:36] LABS: AMYLASE < 30 U/L (11-123)
[2016-08-08] MEDS ORDERED: IOHEXOL 300MG/ML 150 ML BTL ONE (23:50)
[2016-08-08] MEDS ORDERED: SOD CHLORIDE 0.9% 100 ML ONE (23:50)
[2016-08-08 23:55] LABS: TROPONIN-I < 0.012 ng/ml (0.00-0.12)
--- NOTE | 2016-08-09 00:20 | RADRPT ---
PROCEDURE: CT Abdomen and Pelvis with contrast. CLINICAL INDICATION: Possible sepsis, abdominal pain, HIV, colitis TECHNIQUE: CT scan of the abdomen and pelvis with contrast was performed on a multidetector high-r Blast[employer]solution CT scanner. 80 cc of Omnipaque-300 was injected intravenously. No oral contrast was admini stered. Coronal and sagittal reformatted images were obtained from the axial source images. Images w ere reviewed on a high-resolution PACS workstation. The total exam CTDI equals 3.92 mGy and the tot al exam DLP equals 208 mGy-cm. One or more of the following dose reduction techniques were used: - Automated exposure control. - Adjustment of the mA and/or kV according to patient size. - Use of iterative reconstruction technique. COMPARISON: None. FINDINGS: Lungs: Patchy increased density in posterior basilar segment region of left lower lung lobe could be secondary to pneumonia. Linear density at base of right middle lung lobe anteriorly could represen t atelectasis/infiltrate. Liver: Mild hepatic steatosis. Gallbladder: Pericholecystic fluid could be secondary to ascites Spleen: No abnormality seen. Stomach: Small hiatal hernia. Pancreas: No abnormality seen. Adrenals: No abnormality seen. Kidneys: No abnormality is seen in the right kidney. There is an approximate 2 mm nonobstructing le ft mid renal calcification. Abdominal aorta: No aneurysm seen. Lymph nodes: No enlarged lymph nodes are seen. Small bowel: No dilated small bowel loops are seen. Colon: No definite colonic wall thickening is seen. Appendix: Not seen. Bladder: No abnormality seen Pelvic organs: No abnormality seen Ascites: Moderate amount of ascites. Diffuse mesenteric edema. Subcutaneous edema. Findings are co nsistent with anasarca. Osseous structures: Small scattered likely bone islands. Schmorl's nodes in thoracolumbar spine. IMPRESSION: Patchy increased density in posterior basilar segment region of left lower lung lobe could be second boubacar to pneumonia. Small hiatal hernia. 2 mm nonobstructing left mid renal calcification. Mild hepat ic steatosis. Moderate amount of ascites. Diffuse mesenteric edema. Subcutaneous edema. Findings a re consistent with anasarca. Please see above. RPTAT: HJES .Brendon Boyd MD, MD Date Time Electronically viewed and signed by .Brendon Boyd MD, MD on 08/09/2016 00:19 .S/
[2016-08-09 00:53] LABS: PLATELET ESTIMATE PLT APPEAR ADEQUATE
[2016-08-09 01:45] LABS: HEMATOCRIT 20.2 % (37.0-47.0)
[2016-08-09 01:50] LABS: HEMOGLOBIN 6.8 g/dl (12.0-16.0)
[2016-08-09] MEDS ORDERED: SOD CHLORIDE 0.9% 250 ML IV ONE (01:52)
[2016-08-09] MEDS ORDERED: FAMOTIDINE 20 MG INJ IV ONE (02:00)
[2016-08-09] MEDS ORDERED: ONDANSETRON 4 MG INJ IV PRN (02:00)
[2016-08-09] MEDS ORDERED: ACETAMINOPHEN 325 MG TAB PO PRN (02:00)
[2016-08-09] MEDS ORDERED: FUROSEMIDE 40 MG INJ IV ONE (05:00)
[2016-08-09] MEDS ORDERED: LORAZEPAM 2 MG INJ IV ONE (05:00)
[2016-08-09] MEDS ORDERED: SOD CHLORIDE 0.9% 1,000 ML IV STA (06:58)
[2016-08-09] MEDS ORDERED: ALBUTEROL/IPRATROPIUM (NEB) 3 ML AMP HHN PRN (07:00)
[2016-08-09] MEDS ORDERED: ACETAMINOPHEN 650 MG SUPP PR PRN (07:00)
[2016-08-09] MEDS ORDERED: NACL 0.9% 3 ML SYG IV SCH (07:00)
--- NOTE | 2016-08-09 08:15 | ERA ---
DATE OF SERVICE: 08/08/2016 HISTORY OF PRESENT ILLNESS: This 41-year-old female presents for generalized weakness, not eating, and abdominal pain. The patient herself also appears somewhat altered, although answers all questio ns. She states that she has abdominal pain in the mid abdomen that is mild in nature. Denies chest pain or shortness of breath. She does feel generally weak and lightheaded. She feels very tired. I reviewed the patient's EMR. Her last visit was for hemorrhagic shock. REVIEW OF SYSTEMS: A 10-point review of systems was negative except as in the HPI. The patient does deny any GI bleeding, although states that she does have diarrhea. PAST MEDICAL HISTORY: HIV, hepatitis C, cirrhosis, GI bleed. PAST SURGICAL HISTORY: Unknown, except for ET intubation. SOCIAL HISTORY: She lives at home with a trim carpenter. Denies tobacco, alcohol or other drugs. FAMILY HISTORY: Patient is not aware of any significant family history. PHYSICAL EXAMINATION: VITAL SIGNS: Temperature 96.5, pulse 105, respiratory rate 18, blood pressure 108/74, pulse ox 100% on room air. GENERAL: In no acute distress. HEENT: Normocephalic, atraumatic. Dry mucus membranes of the mouth. NECK: Supple. No JVD or meningismus. CARDIAC: Regular tachycardia, without murmur. LUNGS: Clear to auscultation bilaterally. ABDOMEN: Mild diffuse generalized abdominal tenderness, without guarding or rebound. Bowel sounds positive. Nondistended. NEUROLOGIC: Patient is alert and oriented x3, appears somewhat confused. No focal neurological def icits. Cranial nerves II through XII are intact. [id number] and cerebellar normal. SKIN: Pale. Eyes, pale conjunctivae. EXTREMITIES: No cyanosis, clubbing or edema. Stage II decubitus ulcer, sacral area. VASCULAR: Distal pulses intact to all 4 extremities. DIAGNOSTIC DATA/ LABORATORY: CBC significant for a low hemoglobin of 7.8 and then 6.8, with normocyt ic anemia. BMP within normal limits, calcium low at 7. Albumin is 1.4, consistent with severe prot ein calorie malnutrition. Alkaline phosphatase is elevated at 210. Other LFTs are within normal li mits. Lipase is within normal limits. Coagulation studies show an INR of 1.55. IMAGING: CT abdomen and pelvis interpretation: Left lower lung with possible pneumonia, moderate as cites, hepatic steatosis, mesenteric edema, anasarca. No obstruction, no free air, no acute fractur es. Chest x-ray interpretation: I see no acute process, no obvious infiltrate, no widened mediastinum, no pneumothorax, no acute fractures. compliance monitor interpretation: Persistent sinus tachycardia. EKG interpretation: Sinus tachycardia, with a rate of 104, normal axis, no ST or T-wave changes conc erning for acute ischemia. QT of 476. EMERGENCY DEPARTMENT COURSE AND MEDICAL DECISION MAKING: The patient's workup was initiated by the departing provider. She was given vancomycin and Zosyn empirically for possible sepsis. She was al so given 30 mL/kg of IV fluid. The patient was initially very confused while trying to obtain vascu lar access. She was given 2 mg of Ativan, after which I was able to place an ultrasound-guided mercy pheral IV. The patient was extremely anemic, with a hemoglobin of 6.8. She had been incontinent of stool, which was already cleaned up. Was unable to get a stool for a Hemoccult test. The patient' s blood pressure continued to decrease, in spite of the fluid administration. This is likely second boubacar to hemorrhagic shock, which is likely the reason for her tachycardia. This may also be the reas on for her altered mental status. She was transfused 3 units of packed red blood cells in the emerg ency room. I consistently monitored her and visited her at bedside to monitor for increasing fluid status. I also gave her 40 mg of Lasix because she had received so much fluid and is now receiving blood to prevent fluid overload. The patient was pulling out her IV and eventually needed non-beha vioral restraints to prevent her from removing her IV line. She is being admitted to the telemetry unit in serious condition, as she is still receiving some blood. I spoke with Dr. Stubbs, who will be admitting the patient to telemetry. Critical care time was 36 minutes: This includes treatment of hemorrhagic shock, careful fluid admi nistration, blood product administration, multiple visits to the patient's bedside to assess his flu id status and monitor her for mental status changes and vital signs, discussion with the admitting serge clements. Discussion with patient. The patient also possibly has pneumonia, but has been treated. Thi s critical care time does not include any billable procedures. Ultrasound-guided peripheral IV insertion note: Under ultrasound guidance I placed an extended Aaliyah ocath 18 gauge IV in her left basilic vein. She tolerated the procedure well, without complications . Blood was able to be obtained from this line, as well as given. Ultrasound images were saved. ADMISSION DIAGNOSES: 1. Hemorrhagic shock 2. Severe protein calorie malnutrition. 3. Generalized weakness. 4. Pneumonia. 5. Altered mental status. DISPOSITION: Admitted in serious condition. Dictated By: SHELBY CARRENO Conf#: [id number] DID#: [id number]
[2016-08-09] MEDS: DEXAMETHASONE 4 MG/ML 1 ML INJ IV SCH (09:17)
[2016-08-09 10:24] LABS: ALBUMIN 1.5 g/dl (3.3-4.9)
[2016-08-09 10:27] LABS: ALBUMIN/GLOBULIN RATIO 0.55; BILIRUBIN,INDIRECT 0.7 mg/dl (0-1.1); BILIRUBIN,TOTAL 0.7 mg/dl (0.2-1.3); CALCIUM 6.6 mg/dl (8.4-10.2); CREATININE 0.45 mg/dl (0.44-1.00); TOTAL PROTEIN 4.2 g/dl (6.1-8.1)
[2016-08-09 10:28] LABS: MAGNESIUM 1.4 mg/dl (1.7-2.5)
[2016-08-09 10:37] LABS: POTASSIUM 2.7 mmol/L (3.5-5.1)
[2016-08-09] MEDS: POTASSIUM CHLORIDE 250 ML IVPB SCH ×2 (11:44→17:36)
[2016-08-09] MEDS: DEXTROSE 5%-0.45% NACL 1,000 ML IV SCH ×2 (11:44→21:14)
[2016-08-09] MEDS ORDERED: LIDOCAINE 1% (MDV) 20 ML INJ SC ONE (13:30)
[2016-08-09 14:22] LABS: HEMATOCRIT 31.3 % (37.0-47.0); HEMOGLOBIN 10.4 g/dl (12.0-16.0)
[2016-08-09] MEDS ORDERED: MAGNESIUM SULFATE 4 GM/100 ML 100 ML IVPB ONE (14:30)
--- NOTE | 2016-08-09 14:45 | CONS ---
Date/Time of Note Date/Time of Note DATE: 08/09/16 TIME: 14:32 Assessment/Plan Assessment/Plan Chief Complaint/Hosp Course Impression: 1. Symptomatic anemia: likely anemia of chronic disease, r/o GIB. 2. Severe protein calorie malnutrition. 3. Generalized weakness. 4. Pneumonia. 5. Altered mental status. Recommendation: 1. send stool for occult blood 2. start fluconazole for kayla esophagitis on last month's biopsy 3. banana bag 4. nutrition consult 5. IVF 6. protonix 40 mg iv bid Problems: Consultation Date/Type/Reason Admit Date/Time Date of Consultation: Aug 09, 2016 Type of Consultation: GI Reason for Consultation symptomatic anemia Hx of Present Illness Note: patient is confused and history obtain from review chart and discuss with ER physician. 41-year-old female presents in ER for generalized weakness, not eating, and abdominal pain. She has abdominal pain in the mid abdomen that is mild in nature. Denies chest pain or shortness of breath. She does feel generally weak and lightheaded. She feels very tired. Work up in ER showed anemia with hgb 6.8. She was recently admitted last month for anemia and weakness. EGD showed atrophic gastropathy. Colonosocpy showed severe colitis with ulceration. CT scan showed patchy increased density in posterior basilar segment region of left lower lung lobe could be secondary to pneumonia. Small hiatal hernia. 2 mm nonobstructing left mid renal calcification. Mild hepatic steatosis. Moderate amount of ascites. Diffuse mesenteric edema. Subcutaneous edema. unable to obtain due to patient's altered mental status. Past Medical History HIV, HCV, cirrhosis, GIB Past Surgical History Past Surgical Hx: noncontributory Family History Significant Family History: no pertinent family hx Social History Alcohol Use: none Smoking Status: Former smoker Drug Use: none Exam/Review of Systems Vital Signs Vitals Vital Signs Date Time Temp Pulse Resp B/P Pulse Ox O2 Delivery O2 Flow Rate FiO2 08/09/16 13:00 98.1 99 21 119/93 97 Room Air Intake and Output 08/08/16 08/08/16 08/09/16 15:00 23:00 07:00 Intake Total 350 ml Balance 350 ml Exam Constitutional: frail Psych: confusion Head: atraumatic, normocephalic Eyes: EOMI, nl conjunctiva, nl lids, nl sclera ENMT: mucosa pink and moist, nl external ears & nose, nl lips & teeth, nl nasal mucosa & septum Neck: non-tender, supple Respiratory: clear to auscultation, normal air movement Cardiovascular: nl pulses, regular rate and rhythm Gastrointestinal: ascites, bowel sounds, other (rectal exam did not show stool so unable to do bedside guaiac), soft Neurological: confused, lethargic Results Result Diagram: 08/09/16 1400 08/09/16 0930 Results 24 hrs Laboratory Tests Test 08/08/16 23:05 08/09/16 01:30 08/09/16 09:30 08/09/16 14:00 Activated Partial Thromboplast Time 31.1 Alanine Aminotransferase (ALT/SGPT) 58 57 Albumin 1.4 L 1.5 L Albumin/Globulin Ratio 0.53 0.55 Alkaline Phosphatase 210 H 227 H Amylase Level < 30 Anion Gap 9 12 Aspartate Amino Transf (AST/SGOT) 40 34 Basophils # 0.0 Basophils % 0.3 Blood Morphology Comment Blood Urea Nitrogen 11 8 Calcium Level 7.0 L 6.6 L Carbon Dioxide Level 29 27 Chloride Level 101 105 Creatinine 0.43 L 0.45 Direct Bilirubin 0.00 0.00 Eosinophils # 0.0 Eosinophils % 0.0 Globulin 2.60 2.70 Glucose Level 74 64 #L Hematocrit 23.2 #L 20.2 L 31.3 #L Hemoglobin 7.8 #L 6.8 *L 10.4 #L INR International Normalized Ratio 1.55 Indirect Bilirubin 0.2 0.7 Lactic Acid Level 1.6 Lipase 16 L Lymphocytes # 1.1 Lymphocytes % 27.4 Mean Corpuscular Hemoglobin 29.9 Mean Corpuscular Hemoglobin Concent 33.4 Mean Corpuscular Volume 89.5 Mean Platelet Volume 6.8 L Monocytes # 0.3 Monocytes % 6.6 Neutrophils # 2.8 Neutrophils % 65.7 Nucleated Red Blood Cells # 0.0 Nucleated Red Blood Cells % 0.0 Platelet Count 311 # Platelet Estimate PLT APPEAR ADEQUATE Potassium Level 3.8 2.7 *L Prothrombin Time 18.7 H Prothrombin Time Ratio 1.5 Red Blood Count 2.59 #L Red Cell Distribution Width 21.5 H Sodium Level 135 141 Total Bilirubin 0.2 0.7 Total Protein 4.0 L 4.2 L Troponin I < 0.012 White Blood Count 4.2 #L Magnesium Level 1.4 L Medications Medications Current Medications Dextrose/Sodium Chloride (D5-1/2ns) 1,000 ml @ 125 mls/hr Q8H IV Last administered on 08/09/16 11:44; Admin Dose 125 MLS/HR; Start 08/09/16 at 06:49 Ondansetron HCl (Zofran Inj) 4 mg Q6H PRN IV NAUSEA AND/OR VOMITING; Start at 07:00 Acetaminophen (Tylenol Supp) 650 mg Q6H PRN [place] PAIN LEVEL 1-3 OR FEVER; Start 08/09/16 at 07:00 Morphine Sulfate (morphine) 2 mg Q4H PRN IV PAIN LEVEL 7-10; Start 08/09/16 at 07:00 Mesalamine (Delzicol Dr) 800 mg BID PO ; Start 08/09/16 at 09:00 Dexamethasone 4 mg 4 mg DAILY IV Last administered on 08/09/16 09:17; Admin Dose 4 MG; Start 08/09/16 at 09:00; Stop 08/10/16 at 09:00 Potassium Chloride 250 ml @ 62.5 mls/hr Q4H IVPB Last administered on 11:44; Admin Dose 62.5 MLS/HR; Start 08/09/16 at 11:30; Stop 08/09/16 at 19 :29 Magnesium Sulfate (Magnesium Sulfate 4 Gm/100 ml) 100 ml @ 25 mls/hr ONCE ONCE IVPB ; Start 08/09/16 at 14:30; Stop 08/09/16 at 18:29 GOMEZ MARK MD Aug 09, 2016 14:42
[2016-08-09 15:06] VITALS: TEMP 97.5
[2016-08-09 16:00] VITALS: BP 94/58; RESP 17
[2016-08-09 17:08] VITALS: PULSE 111
[2016-08-09] MEDS: PANTOPRAZOLE 40 MG INJ IV SCH (17:46)
[2016-08-09 18:40] LABS: HEMATOCRIT 29.2 % (37.0-47.0); HEMOGLOBIN 9.6 g/dl (12.0-16.0)
[2016-08-09 20:00] VITALS: BP 107/76; RESP 18
[2016-08-09 20:30] VITALS: PULSE 90
[2016-08-09] MEDS: MESALAMINE (EC) 400 MG CAP PO SCH (21:15)
[2016-08-09 22:00] VITALS: BP 120/65; PULSE 112; RESP 20
[2016-08-10] VITALS (19 sets, daily range): BP systolic 112–172; BP diastolic 65–96; PULSE 75–118; RESP 17–20; Ht 170.2 cm; Wt 44.6 kg
[2016-08-10 02:10] LABS: HEMATOCRIT 30.1 % (37.0-47.0); HEMOGLOBIN 10.3 g/dl (12.0-16.0)
[2016-08-10 05:27] LABS: POTASSIUM 3.3 mmol/L (3.5-5.1)
[2016-08-10 05:29] LABS: CREATININE 0.43 mg/dl (0.44-1.00)
[2016-08-10 05:30] LABS: PHOSPHORUS 2.4 mg/dl (2.5-4.9)
[2016-08-10 05:31] LABS: CALCIUM 6.4 mg/dl (8.4-10.2); MAGNESIUM 2.4 mg/dl (1.7-2.5)
[2016-08-10 05:37] LABS: EOSINOPHILS % 0.2 % (0.0-7.0); HEMATOCRIT 30.1 % (37.0-47.0); HEMOGLOBIN 10.1 g/dl (12.0-16.0); LYMPHOCYTES # 1.1 10^3/ul (0.8-2.9); LYMPHOCYTES % 18.7 % (15.0-51.0); MEAN CORPUSCULAR HEMOGLOBIN 29.9 pg (29.0-33.0); MEAN CORPUSCULAR HGB CONC 33.5 g/dl (32.0-37.0); MEAN CORPUSCULAR VOLUME 89.3 fl (82.0-101.0); MEAN PLATELET VOLUME 6.5 fl (7.4-10.4); MONOCYTE # 0.4 10^3/ul (0.3-0.9); MONOCYTES % 7.5 % (0.0-11.0); NEUTROPHIL # 4.1 10^3/ul (1.6-7.5); NEUTROPHILS % 73.6 % (39.0-77.0); PLATELET COUNT 243 10^3/UL (140-440); RED BLOOD COUNT 3.37 10^6/ul (4.20-5.40); UNCORRECTED WBC 5.6 10^3/ul (4.8-10.8); WHITE BLOOD COUNT 5.6 10^3/ul (4.8-10.8)
[2016-08-10 06:17] LABS: CONDITION 1; LH ANALYZER COMMENTS 1
[2016-08-10] MEDS: PANTOPRAZOLE 40 MG INJ IV SCH ×2 (06:57→18:16)
[2016-08-10] MEDS: DEXTROSE 5%-0.45% NACL 1,000 ML IV SCH ×3 (06:57→23:00)
[2016-08-10] MEDS: MULTIVITAMINS 10 ML, THIAMINE 100 MG, FOLIC ACID 1 MG in SOD CHLORIDE 0.9% 1,000 ML IVPB SCH (09:21)
[2016-08-10] MEDS: DEXAMETHASONE 4 MG/ML 1 ML INJ IV SCH (09:22)
[2016-08-10] MEDS: MESALAMINE (EC) 400 MG CAP PO SCH ×2 (09:22→21:54)
--- NOTE | 2016-08-10 12:06 | CONS ---
Date/Time of Note Date/Time of Note DATE: 08/10/16 TIME: 12:01 Assessment/Plan Assessment/Plan Chief Complaint/Hosp Course Impression: 1. Symptomatic anemia: likely anemia of chronic disease, occult blood negative. 2. Severe protein calorie malnutrition. 3. Generalized weakness. 4. Pneumonia. 5. Altered mental status. 6. Inocencia esophagitis on last month's EGD biopsy Recommendation: 1. as occult blood negative, no indication at this time for urgent EGD 2. continue fluconazole for inocencia esophagitis on last month's biopsy 3. banana bag 4. f/u nutrition consult 5. continue IVF 6. protonix 40 mg iv bid 7. Advance diet to regular Problems: Consultation Date/Type/Reason Admit Date/Time Aug 09, 2016 at 01:59 Initial Consult Date 08/09/16 Type of Consultation: GI 24 HR Interval Summary Free Text/Dictation confused, brown stool per nurse, going for PICC line placement Exam/Review of Systems Vital Signs Vitals Vital Signs Date Time Temp Pulse Resp B/P Pulse Ox O2 Delivery O2 Flow Rate FiO2 08/10/16 11:51 98.1 82 18 172/95 99 08/10/16 10:00 Room Air Intake and Output 08/09/16 08/09/16 08/10/16 15:00 23:00 07:00 Intake Total 1370 ml Balance 1370 ml Exam Constitutional: frail Psych: confusion Head: atraumatic, normocephalic Eyes: EOMI, nl conjunctiva, nl lids, nl sclera ENMT: mucosa pink and moist, nl external ears & nose, nl lips & teeth, nl nasal mucosa & septum Neck: non-tender, supple Respiratory: clear to auscultation, normal air movement Cardiovascular: nl pulses, regular rate and rhythm Gastrointestinal: bowel sounds, non-tender, soft Results Result Diagram: 08/10/165 08/10/165 Results 24 hrs Laboratory Tests Test 08/09/16 14:00 08/09/16 18:20 08/10/16 00:36 08/10/16 04:45 Hematocrit 31.3 #L 29.2 L 30.1 L 30.1 L Hemoglobin 10.4 #L 9.6 L 10.3 L 10.1 L Anion Gap 7 L Basophils # 0.0 Basophils % 0.0 Blood Morphology Comment Blood Urea Nitrogen 6 L Calcium Level 6.4 L Carbon Dioxide Level 28 Chloride Level 107 Creatinine 0.43 L Eosinophils # 0.0 Eosinophils % 0.2 Glucose Level 110 # Lymphocytes # 1.1 Lymphocytes % 18.7 Magnesium Level 2.4 # Mean Corpuscular Hemoglobin 29.9 Mean Corpuscular Hemoglobin Concent 33.5 Mean Corpuscular Volume 89.3 Mean Platelet Volume 6.5 L Monocytes # 0.4 Monocytes % 7.5 Neutrophils # 4.1 Neutrophils % 73.6 Nucleated Red Blood Cells # 0.0 Nucleated Red Blood Cells % 0.0 Phosphorus Level 2.4 L Platelet Count 243 # Potassium Level 3.3 L Red Blood Count 3.37 #L Red Cell Distribution Width 19.0 H Sodium Level 139 White Blood Count 5.6 # Test 08/10/16 09:30 Stool Occult Blood NEGATIVE Medications Medications Current Medications Dextrose/Sodium Chloride (D5-1/2ns) 1,000 ml @ 125 mls/hr Q8H IV Last administered on 08/10/16 06:57; Admin Dose 125 MLS/HR; Start 08/09/16 at 06:49 Ondansetron HCl (Zofran Inj) 4 mg Q6H PRN IV NAUSEA AND/OR VOMITING; Start at 07:00 Acetaminophen (Tylenol Supp) 650 mg Q6H PRN [place] PAIN LEVEL 1-3 OR FEVER; Start 08/09/16 at 07:00 Morphine Sulfate (morphine) 2 mg Q4H PRN IV PAIN LEVEL 7-10; Start 08/09/16 at 07:00 Mesalamine (Delzicol Dr) 800 mg BID PO Last administered on 08/10/16 09:22; Admin Dose 800 MG; Start 08/09/16 at 09:00 Pantoprazole 40 mg 40 mg BID@06,18 IV Last administered on 08/10/16 06:57; Admin Dose 40 MG; Start 08/09/16 at 18:00 Multivitamins/ Thiamine HCl/ Folic Acid/Sodium Chloride (Mvi-12 Adult/ Vitamin B1/Folic Acid/NS) 1,011.2 ml @ 125 mls/ hr DAILY@09 IVPB Last administered on 08/10/16 09:21; Admin Dose 125 MLS/HR; Start 08/10/16 at 09:00 GOMEZ MARK MD Aug 10, 2016 12:06
--- NOTE | 2016-08-10 14:06 | PN ---
Date/Time of Note Date/Time of Note DATE: 08/10/16 TIME: 13:59 Assessment/Plan VTE Prophylaxis VTE Prophylaxis Intervention: SCD's Lines/Catheters IV Catheter Type ([facility] Peripheral IV Urinary Cath still in place: No Assessment/Plan Chief Complaint/Hosp Course 1. Generalized weakness 2/2 deconditioning and anemia -anemia of chronic disease, occult blood negative, no GI intervention warranted , GI consult appreciated 2. Severe protein calorie malnutrition 2/2 Hx of HIV/Hep C and deconditioning -check drug abuse screen 3. Anasarca 2/2 Live Dz from Hep C and possible substance abuse 5. Altered mental status 2/2 co morbidities -no e/o acute sepsis at this time -Palliative Care consult in the AM 6. Inocencia esophagitis on last month's EGD biopsy -cont Fluconazole PPx- SCD's Problems: Subjective 24 Hr Interval Summary Constitutional: disoriented Exam/Review of Systems Vital Signs Vitals Vital Signs Date Time Temp Pulse Resp B/P Pulse Ox O2 Delivery O2 Flow Rate FiO2 08/10/16 12:24 82 08/10/16 11:51 98.1 18 172/95 99 08/10/16 10:00 Room Air Intake and Output 08/09/16 08/09/16 08/10/16 15:00 23:00 07:00 Intake Total 1370 ml Balance 1370 ml Exam Psych: confusion Respiratory: clear to auscultation Cardiovascular: regular rate and rhythm Gastrointestinal: soft, No distended Musculoskeletal: No nl extremities to inspection Results Result Diagram: 08/10/16 0445 08/10/16 0445 Results 24 hrs Laboratory Tests Test 08/09/16 14:00 08/09/16 18:20 08/10/16 00:36 08/10/16 04:45 Hematocrit 31.3 #L 29.2 L 30.1 L 30.1 L Hemoglobin 10.4 #L 9.6 L 10.3 L 10.1 L Anion Gap 7 L Basophils # 0.0 Basophils % 0.0 Blood Morphology Comment Blood Urea Nitrogen 6 L Calcium Level 6.4 L Carbon Dioxide Level 28 Chloride Level 107 Creatinine 0.43 L Eosinophils # 0.0 Eosinophils % 0.2 Glucose Level 110 # Lymphocytes # 1.1 Lymphocytes % 18.7 Magnesium Level 2.4 # Mean Corpuscular Hemoglobin 29.9 Mean Corpuscular Hemoglobin Concent 33.5 Mean Corpuscular Volume 89.3 Mean Platelet Volume 6.5 L Monocytes # 0.4 Monocytes % 7.5 Neutrophils # 4.1 Neutrophils % 73.6 Nucleated Red Blood Cells # 0.0 Nucleated Red Blood Cells % 0.0 Phosphorus Level 2.4 L Platelet Count 243 # Potassium Level 3.3 L Red Blood Count 3.37 #L Red Cell Distribution Width 19.0 H Sodium Level 139 White Blood Count 5.6 # Test 08/10/16 09:30 Stool Occult Blood NEGATIVE Medications Medications Current Medications Dextrose/Sodium Chloride (D5-1/2ns) 1,000 ml @ 125 mls/hr Q8H IV Last administered on 08/10/16 06:57; Admin Dose 125 MLS/HR; Start 08/09/16 at 06:49 Ondansetron HCl (Zofran Inj) 4 mg Q6H PRN IV NAUSEA AND/OR VOMITING; Start at 07:00 Acetaminophen (Tylenol Supp) 650 mg Q6H PRN [place] PAIN LEVEL 1-3 OR FEVER; Start 08/09/16 at 07:00 Morphine Sulfate (morphine) 2 mg Q4H PRN IV PAIN LEVEL 7-10; Start 08/09/16 at 07:00 Mesalamine (Delzicol Dr) 800 mg BID PO Last administered on 08/10/16 09:22; Admin Dose 800 MG; Start 08/09/16 at 09:00 Pantoprazole 40 mg 40 mg BID@06,18 IV Last administered on 08/10/16 06:57; Admin Dose 40 MG; Start 08/09/16 at 18:00 Multivitamins 10 ml/Thiamine HCl 100 mg/Folic Acid 1 mg/Sodium Chloride 1,011.2 ml @ 125 mls/ hr DAILY@09 IVPB Last administered on 08/10/16 09:21; Admin Dose 125 MLS/HR; Start 08/10/16 at 09:00; Stop 08/12/16 at 17:06 Fluconazole (Diflucan 200 Mg/ NS (Pmx)) 100 ml @ 100 mls/hr Q24H IVPB ; Start 08/10/16 at 13:30; Stop 08/23/16 at 14:29 ISABEL HARLEY Aug 10, 2016 14:06
[2016-08-10] MEDS ORDERED: POTASSIUM CHLORIDE 250 ML IVPB ONE (14:30)
[2016-08-10] MEDS: FLUCONAZOLE 200 MG/NS (PMX) 100 ML IVPB SCH (15:10)
[2016-08-10 20:43] LABS: BARBITURATES Negative (NEGATIVE); BENZODIAZEPINES Negative (NEGATIVE); CANNABINOIDS Negative (NEGATIVE)
[2016-08-10 20:48] LABS: COCAINE Negative (NEGATIVE); OPIATES Negative (NEGATIVE)
[2016-08-11] VITALS (12 sets, daily range): BP systolic 113–127; BP diastolic 72–87; PULSE 75–101; RESP 17–20
[2016-08-11] MEDS: PANTOPRAZOLE 40 MG INJ IV SCH ×2 (05:54→22:34)
[2016-08-11] MEDS: DEXTROSE 5%-0.45% NACL 1,000 ML IV SCH ×3 (06:12→22:51)
--- NOTE | 2016-08-11 07:17 | HP ---
DATE OF ADMISSION: 08/09/2016 CHIEF COMPLAINT: Bloody diarrhea. HISTORY OF PRESENT ILLNESS: The patient is a 41-year-old female with a history of esophagitis, obst ructive gastropathy and severe colitis with ulceration, history of substance abuse, respiratory fail ure and hemorrhagic shock, who presented to the emergency department with bloody diarrhea. The sofie ent was admitted here a month ago for hematochezia. At that time she went into shock with severe an emia requiring an ICU stay. She also was intubated at that time. She underwent EGD and colonoscopy with a finding of suspected Inocencia esophagitis and atrophic gastropathy on the EGD and the colonos copy showing severe colitis with ulceration, possibly related to Crohn's. The patient was transferr ed directly from ICU to [place] since she had a [employer] insurance at that time. Of note the biopsy wi th regard to the EGD following up showed that she does have Inocencia . When she got to the ER this time her hemoglobin was 7.3 with repeat being 6.8. She has received 1 u nit of PRBCs so far and she is now in the process of getting a second one. While here in the ER the patient became agitated and started pulling out her IV line and currently she is on restraints. rich also denied hematemesis or bloody diarrhea; however, even right before I examined her here in the ER, she had bloody diarrhea which was small. REVIEW OF SYSTEMS: Unable to fully assess but negative except as mentioned in HPI. PAST MEDICAL HISTORY: As per HPI. ALLERGIES: NO KNOWN DRUG ALLERGIES. HOME MEDICATIONS: 1. Mesalamine. 2. Valganciclovir. PHYSICAL EXAMINATION: VITAL SIGNS: Blood pressure 108/65 on the monitor with heart rate of 110, respiratory rate 20. She is afebrile and saturating 100% on room air. GENERAL: Thinly built woman lying in bed in no acute distress. She is, however, on restraints. rich is not fully oriented. HEENT: No obvious head deformity. Pupils are reactive to light. CARDIOVASCULAR: Tachycardic. Regular rhythm: LUNGS: Clear anteriorly. ABDOMEN: Soft. No grimaces noted on palpation. There are positive bowel sounds. EXTREMITIES: She has at least 2+ pitting edema in bilateral lower extremities with scattered hypopi gmented lesion which looks like from skin popping. LABORATORY: Hemoglobin 20. IMPRESSION: 1. Bright red blood per rectum. 2. Anemia, secondary to above. 3. History of severe colitis with ulceration, likely inflammatory bowel disease. 4. History of hemorrhagic shock 5. History of ventilator-dependent respiratory failure. 6. History of Inocencia esophagitis and atrophic gastropathy. PLAN: 1. Will keep her n.p.o. 2. We will continue blood transfusion. 3. We will place the gastrology consult. 4. It feels like the patient is probably having bloody diarrhea from bowel disease. Will cont inue her mesalamine. I will start her on steroids. Will provide pain medication as needed. 5. She will be placed on Protonix. 6. Will continue to monitor her hemoglobin closely. Further workup and management per clinical course. Dictated By: RAVI LAWLER/SHILPA Conf#: [id number] DID#: [id number]
--- NOTE | 2016-08-11 07:47 | CONS ---
Date/Time of Note Date/Time of Note DATE: 08/11/16 TIME: 07:47 Assessment/Plan Assessment/Plan Chief Complaint/Hosp Course Impression: 1. Symptomatic anemia: likely anemia of chronic disease, occult blood negative. 2. Severe protein calorie malnutrition. 3. Generalized weakness. 4. Pneumonia. 5. Altered mental status. 6. Inocencia esophagitis on last month's EGD biopsy Recommendation: 1. as occult blood negative, no indication at this time for urgent EGD 2. continue fluconazole for inocencia esophagitis on last month's biopsy 3. banana bag 4. f/u nutrition consult 5. continue IVF 6. protonix 40 mg iv bid 7. Advance diet to regular 8. EGD if abdominal pain persists and per Dr Carrasco discretion. Problems: Consultation Date/Type/Reason Admit Date/Time Aug 09, 2016 at 01:59 Initial Consult Date 08/09/16 Type of Consultation: GI 24 HR Interval Summary Free Text/Dictation lethargic, groins, complains of abdominal pain Exam/Review of Systems Vital Signs Vitals Vital Signs Date Time Temp Pulse Resp B/P Pulse Ox O2 Delivery O2 Flow Rate FiO2 08/11/16 05:50 97.9 92 17 125/82 98 Room Air Intake and Output 08/10/16 08/10/16 08/11/16 15:00 23:00 07:00 Intake Total 1790 ml 1050 ml Balance 1790 ml 1050 ml Exam Constitutional: frail Psych: confusion Head: atraumatic, normocephalic Eyes: EOMI, nl conjunctiva, nl lids, nl sclera ENMT: mucosa pink and moist, nl external ears & nose, nl lips & teeth, nl nasal mucosa & septum Neck: non-tender, supple Respiratory: clear to auscultation, normal air movement Cardiovascular: regular rate and rhythm Gastrointestinal: bowel sounds, soft, tender (diffusely) Results Result Diagram: 08/10/165 08/10/16444 Results 24 hrs Laboratory Tests Test 08/10/16 09:30 08/10/16 17:10 Stool Occult Blood NEGATIVE Urine Amphetamines Screen Negative Urine Barbiturates Negative Urine Benzodiazepines Screen Negative Urine Cannabinoids Negative Urine Cocaine Screen Negative Urine Opiates Screen Negative Medications Medications Current Medications Dextrose/Sodium Chloride (D5-1/2ns) 1,000 ml @ 125 mls/hr Q8H IV Last administered on 08/11/16 06:12; Admin Dose 125 MLS/HR; Start 08/09/16 at 06:49 Ondansetron HCl (Zofran Inj) 4 mg Q6H PRN IV NAUSEA AND/OR VOMITING; Start at 07:00 Acetaminophen (Tylenol Supp) 650 mg Q6H PRN [place] PAIN LEVEL 1-3 OR FEVER; Start 08/09/16 at 07:00 Morphine Sulfate (morphine) 2 mg Q4H PRN IV PAIN LEVEL 7-10; Start 08/09/16 at 07:00 Mesalamine (Delzicol Dr) 800 mg BID PO Last administered on 08/10/16 21:54; Admin Dose 800 MG; Start 08/09/16 at 09:00 Pantoprazole 40 mg 40 mg BID@06,18 IV Last administered on 08/11/16 05:54; Admin Dose 40 MG; Start 08/09/16 at 18:00 Multivitamins 10 ml/Thiamine HCl 100 mg/Folic Acid 1 mg/Sodium Chloride 1,011.2 ml @ 125 mls/ hr DAILY@09 IVPB Last administered on 08/10/16 09:21; Admin Dose 125 MLS/HR; Start 08/10/16 at 09:00; Stop 08/12/16 at 17:06 Fluconazole (Diflucan 200 Mg/ NS (Pmx)) 100 ml @ 100 mls/hr Q24H IVPB Last administered on 08/10/16 15:10; Admin Dose 100 MLS/HR; Start 08/10/16 at 13:30 ; Stop 08/23/16 at 14:29 GOMEZ MARK MD Aug 11, 2016 07:47
[2016-08-11 07:51] LABS: EOSINOPHILS % 0.7 % (0.0-7.0); HEMATOCRIT 30.5 % (37.0-47.0); HEMOGLOBIN 10.3 g/dl (12.0-16.0); LYMPHOCYTES # 1.3 10^3/ul (0.8-2.9); LYMPHOCYTES % 18.2 % (15.0-51.0); MEAN CORPUSCULAR HEMOGLOBIN 30.3 pg (29.0-33.0); MEAN CORPUSCULAR HGB CONC 33.8 g/dl (32.0-37.0); MEAN CORPUSCULAR VOLUME 89.6 fl (82.0-101.0); MEAN PLATELET VOLUME 6.7 fl (7.4-10.4); MONOCYTE # 0.5 10^3/ul (0.3-0.9); MONOCYTES % 7.1 % (0.0-11.0); NEUTROPHIL # 5.1 10^3/ul (1.6-7.5); PLATELET COUNT 194 10^3/UL (140-440); RED BLOOD COUNT 3.41 10^6/ul (4.20-5.40); UNCORRECTED WBC 6.9 10^3/ul (4.8-10.8); WHITE BLOOD COUNT 6.9 10^3/ul (4.8-10.8)
[2016-08-11 07:52] LABS: CONDITION 1; LH ANALYZER COMMENTS 1
[2016-08-11 07:57] LABS: POTASSIUM 3.3 mmol/L (3.5-5.1)
[2016-08-11 08:00] LABS: CREATININE 0.53 mg/dl (0.44-1.00)
[2016-08-11 08:01] LABS: CALCIUM 6.5 mg/dl (8.4-10.2); MAGNESIUM 2.2 mg/dl (1.7-2.5); PHOSPHORUS 2.6 mg/dl (2.5-4.9)
[2016-08-11] MEDS: MESALAMINE (EC) 400 MG CAP PO SCH ×2 (08:39→22:35)
[2016-08-11] MEDS: MULTIVITAMINS 10 ML, THIAMINE 100 MG, FOLIC ACID 1 MG in SOD CHLORIDE 0.9% 1,000 ML IVPB SCH (08:39)
[2016-08-11 12:27] LABS: ADD UMIC YES; URINE BILIRUBIN (Dip) NEGATIVE (NEGATIVE); URINE BLOOD (Dip) NEGATIVE (NEGATIVE); URINE COLOR YELLOW (YELLOW); URINE GLUCOSE (Dip) NEGATIVE (NEGATIVE); URINE KETONES (Dip) NEGATIVE (NEGATIVE); URINE LEUKOCYTE ESTERASE (Dip) NEGATIVE (NEGATIVE); URINE NITRITE (Dip) NEGATIVE (NEGATIVE); URINE TOTAL PROTEIN (Dip) TRACE (NEGATIVE); URINE UROBILINOGEN (Dip) 0.2 E.U./dL (0.1-1.0)
--- NOTE | 2016-08-11 12:55 | RADRPT ---
PROCEDURE: Ultrasound guidance for placement of needle in bilateral upper extremity vein. CLINICAL INDICATION: Venous access. TECHNIQUE: Limited sonography of the bilateral upper extremities was performed. Ultrasound images were recorde d and stored in the patient's medical record. COMPARISON: None. FINDINGS: The ultrasound images demonstrate bilateral patent upper extremity veins. The PICC line was attempt ed to be inserted by the PICC line nurse. IMPRESSION: 1. Ultrasound guidance for a needle placement in a bilateral upper extremity vein. 2. The veins are patent. RPTAT: QQ .Patricio Phillips MD, MD Date Time Electronically viewed and signed by .Patricio Phillips MD, MD on 08/11/2016 12:55 .R/
[2016-08-11 12:58] LABS: URINE RBCS NONE SEEN /HPF (0)
--- NOTE | 2016-08-11 13:03 | RADRPT ---
PROCEDURE: XR Chest. CLINICAL INDICATION: PICC line placement TECHNIQUE: Single frontal view of the chest was obtained COMPARISON: 08/08/2016 FINDINGS: There is a new right-sided PICC line in place with its tip overlying the cavoatrial junction. The heart is normal in size. There are bilateral perihilar infiltrates. There is a small to modera te left pleural effusion. RPTAT: AA IMPRESSION: New PICC line in appropriate position. Bilateral perihilar infiltrates, left greater than right. Small to moderate left pleural effusion. .Jonathan Paris MD, MD Date Time Electronically viewed and signed by .Jonathan Paris MD, MD on 08/11/2016 13:03 .S/
[2016-08-11] MEDS ORDERED: LIDOCAINE 1% (MPF) 5 ML VIAL ONE (13:12)
[2016-08-11] MEDS ORDERED: SOD CHLORIDE 0.9% 100 ML ONE (13:12)
[2016-08-11] MEDS: FLUCONAZOLE 200 MG/NS (PMX) 100 ML IVPB SCH (15:51)
[2016-08-11] MEDS ORDERED: POTASSIUM CHLORIDE 30 MEQ in DEXTROSE 5% 250 ML IVPB ONE (18:00)
--- NOTE | 2016-08-11 18:10 | PN ---
DATE: 08/11/2016 TIME OF EVALUATION: 1700. SUBJECTIVE DATA: Complains of severe abdominal pain. OBJECTIVE DATA: VITAL SIGNS: Temperature 98.1, pulse rate 102, respiratory rate 19, blood pressure 118/72, oxygen saturation 95% on room air. GENERAL: Malnourished female patient lying in bed in no apparent distress. HEENT: Head normocephalic and atraumatic. Eyes: Anicteric sclerae. Conjunctivae clear. ENT: Nasal septum is midline. Oral mucosa is dry. NECK: Supple. No JVD noticed. RESPIRATORY: Bilaterally equal breath sounds. No adventitious breath sounds heard. No use of accessory muscles of respiration. CARDIAC: Regular rate and rhythm. No obvious murmurs heard. ABDOMEN: Soft. Diffuse tenderness. Bowel sounds hypoactive in all 4 quadrants. GENITOURINARY: The patient has a Hughes catheter in place. EXTREMITIES: No cyanosis, no clubbing, no edema. Peripheral pulses palpable. NEUROLOGIC: The patient is awake and alert. Oriented x2 to 3. No focal deficit. LABORATORY AND DIAGNOSTIC DATA: WBC 6.9, hemoglobin 10.3, hematocrit 30.5, platelet count 194. Sodium 139, potassium 3.6, chloride 109, carbon dioxide 25 , anion gap 8, BUN 6, creatinine 0.53, glucose 116, calcium 6.5, phosphorus 2.6 , magnesium 2.2. ASSESSMENT: 1. Symptomatic anemia. Normocytic, normochromic. Etiology unclear. Stool for OB negative. Gastroenterology following. Continue proton pump inhibitors. 2. Inocencia esophagitis as per esophagogastroduodenoscopy on 06/24/2016. Continue fluconazole and proton pump inhibitors. 3. Severe protein calorie malnutrition. Continue with dietary supplements. 4. Hypocalcemia, most probably secondary to underlying hypoalbuminemia. Monitor. 5. Human immunodeficiency virus positive. The patient has been off antiretroviral medications for the past 6 months. The patient's latest CD4 count from 06/25/2016 was 903. Will resume the patient on her antiretroviral medications. 6. Hepatitis C. Overall stable. No active issues. 7. Debility. We will obtain a physical therapy evaluation. 8. Fluid, electrolytes, and nutrition. Mechanical soft diet. 9. Deep vein thrombosis prophylaxis. Bilateral sequential compression devices. 10. Gastrointestinal prophylaxis. Proton pump inhibitors. PLAN: Replete potassium. Continue inpatient care. Will resume antiretroviral medications. Obtain physical therapy evaluation. Case discussed with Dr. Swanson. TK SWANSON MD, AM/SHILPA Conf#: [id number] DID#: [id number] CC: RAVI BURGOS MD;*EndCC* MTDD
--- NOTE | 2016-08-11 20:49 | CONS ---
DATE OF ADMISSION: 08/09/2016 DATE OF CONSULTATION: 08/11/2016 TYPE OF CONSULTATION: Infectious Disease. REASON FOR CONSULTATION: Antibiotic management. HISTORY OF PRESENT ILLNESS: Lakshmi Maya is a 41-year-old female who was admitted with bloody di arrhea. Her past problems include: 1. History of esophagitis. 2. Obstructive gastropathy. 3. Severe colitis with ulceration. 4. History of substance abuse. 5. Respiratory failure and hemorrhagic shock. The patient presented to the emergency room with bloody diarrhea. She was here a month ago with hem atochezia. At that time she went into shock with severe anemia requiring ICU stay and intubation. She was found to have Inocencia esophagitis and atrophic gastropathy on the EGD. On the colonoscopy s he had severe colitis with ulceration, possibly related to Crohn's disease. She was transferred dir ectly from ICU to [place] since she had [place] insurance at that time. When she came into the ER on the , her white count was 7.3, repeat being 6.8. She also denied hematemesis or bloody diarrhea . She had bloody diarrhea on admission. She is valganciclovir at home. On the , her white cou nt was 5.6, H and H of 10.1 and 30.1, platelet count of 242,000. Today it is 6.9, on admission it w as 4.2, and her hemoglobin and hematocrit was 7.8 and 23.2, platelet count 311. BUN and creatinine now is 6/0.53. Urine is negative for nitrite and leukocyte esterase. Blood cultures are negative. She had a PICC line insertion on the . A CT scan of the abdomen and pelvis showed patchy incre ased density in the posterior basilar region of left lower lung could be secondary to pneumonia, sma ll hiatal hernia, 2 mm nonobstructing left mid renal calcifications, along with hepatic steatosis, m oderate amount of ascites. Findings are consistent with anasarca. She was seen by . Cont inue fluconazole for Inocencia esophagitis on last month's biopsy. Generalized weakness and pneumonia . Today complains of severe abdominal pain with a white count of 6.9. The patient has underlying h epatitis C. PAST MEDICAL HISTORY: Operations as outlined. FAMILY HISTORY: Noncontributory. SOCIAL HISTORY: She does not smoke, drink or abuse drugs. ALLERGIES: NONE TO PENICILLIN, SULFA OR FOODS. MEDICATIONS: Per chart. REVIEW OF SYSTEMS: As per HPI. PHYSICAL EXAMINATION: GENERAL: The patient is a well-developed, well-nourished, thin female who is alert, responsive, in no acute distress. She is disoriented. VITAL SIGNS: Vital signs are stable. She is afebrile. SKIN: Without generalized rash. HEENT: Within normal limits. NECK: Supple. LYMPH NODES: None palpable. CHEST: Decreased breath sounds at the bases. HEART: Without murmur or gallop. ABDOMEN: Soft, nontender, without organosplenomegaly or masses. EXTREMITIES: She has 2+ pitting edema in the lower extremities with scattered hypopigmentation poss ibly from skin popping. RECTAL AND GENITAL EXAMS: Deferred. NEUROLOGICAL EVALUATION: No focal neurological abnormalities. IMPRESSION AND PLAN: The patient is currently on fluconazole. She has a PICC line. She is being w orked up for HIV. We will consider starting her back on Atripla in the a.m. I will also put her on cefepime. I will dictate my findings to the hospitalist. Dictated By: GINNY ESPINOZA MD, JD/SHILPA Conf#: [id number] DID#: [id number]
[2016-08-11] MEDS: CEFEPIME 1GM/50 ML (PMX) 50 ML IVPB SCH (22:51)
[2016-08-12] VITALS (10 sets, daily range): BP systolic 108–124; BP diastolic 72–84; PULSE 85–126; RESP 18–20
[2016-08-12] MEDS: PANTOPRAZOLE 40 MG INJ IV SCH ×2 (06:13→17:27)
[2016-08-12] MEDS: DEXTROSE 5%-0.45% NACL 1,000 ML IV SCH ×4 (08:00→22:06)
[2016-08-12] MEDS: MULTIVITAMINS 10 ML, THIAMINE 100 MG, FOLIC ACID 1 MG in SOD CHLORIDE 0.9% 1,000 ML IVPB SCH (08:21)
[2016-08-12] MEDS: CEFEPIME 1GM/50 ML (PMX) 50 ML IVPB SCH ×2 (08:22→21:16)
[2016-08-12] MEDS: MESALAMINE (EC) 400 MG CAP PO SCH ×2 (08:22→21:51)
[2016-08-12 09:26] LABS: BASOPHILS % 0.7 % (0.0-2.0); EOSINOPHILS % 0.2 % (0.0-7.0); HEMATOCRIT 29.7 % (37.0-47.0); HEMOGLOBIN 9.8 g/dl (12.0-16.0); LYMPHOCYTES # 1.2 10^3/ul (0.8-2.9); LYMPHOCYTES % 19.7 % (15.0-51.0); MEAN CORPUSCULAR HEMOGLOBIN 29.9 pg (29.0-33.0); MEAN CORPUSCULAR HGB CONC 33.1 g/dl (32.0-37.0); MEAN CORPUSCULAR VOLUME 90.4 fl (82.0-101.0); MEAN PLATELET VOLUME 7.2 fl (7.4-10.4); MONOCYTE # 0.4 10^3/ul (0.3-0.9); MONOCYTES % 6.5 % (0.0-11.0); NEUTROPHIL # 4.6 10^3/ul (1.6-7.5); NEUTROPHILS % 72.9 % (39.0-77.0); PLATELET COUNT 137 10^3/UL (140-440); RED BLOOD COUNT 3.29 10^6/ul (4.20-5.40); RED CELL DISTRIBUTION WIDTH 20.6 % (11.5-14.5); UNCORRECTED WBC 6.3 10^3/ul (4.8-10.8); WHITE BLOOD COUNT 6.3 10^3/ul (4.8-10.8)
[2016-08-12 09:27] LABS: ALBUMIN 1.2 g/dl (3.3-4.9); CONDITION 1; LH ANALYZER COMMENTS 1
[2016-08-12 09:30] LABS: ALBUMIN/GLOBULIN RATIO 0.48; BILIRUBIN,INDIRECT 0.1 mg/dl (0-1.1); BILIRUBIN,TOTAL 0.1 mg/dl (0.2-1.3); CREATININE 0.48 mg/dl (0.44-1.00); TOTAL PROTEIN 3.7 g/dl (6.1-8.1)
[2016-08-12 09:31] LABS: PHOSPHORUS 1.7 mg/dl (2.5-4.9)
[2016-08-12 09:32] LABS: CALCIUM 6.4 mg/dl (8.4-10.2); MAGNESIUM 1.8 mg/dl (1.7-2.5)
[2016-08-12] MEDS: COLLAGENASE 30 GM TUBE TOP SCH ×2 (12:55→15:19)
[2016-08-12] MEDS ORDERED: COLLAGENASE 30 GM TUBE TOP PRN (13:00)
--- NOTE | 2016-08-12 13:02 | PN ---
DATE: 08/12/2016 SUBJECTIVE: The patient is alert, lying comfortably in bed. Denies pain. No fevers. LABORATORY DATA: WBC 6.3, platelets 137, no shift, no bands. BUN 14, creatinine 0.48. MICROBIOLOGY: All cultures negative. DIAGNOSTICS: CT of the abdomen and pelvis revealed patchy increased density in posterior basilar se gment regimen of left lower lobe, could be secondary to pneumonia. Nonobstructing left mid renal ca lculi. Moderate amount of ascites, subcutaneous edema consistent with anasarca. Chest x-ray reveal ed no evidence of acute cardiopulmonary disease. ANTIMICROBIALS: The patient is on: 1. Cefepime. 2. Fluconazole. ASSESSMENT: 1. Diarrhea, GI on case. 2. 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 3. Human immunodeficiency virus positive with noncompliance with her HIV medications. The patient states she had been taking . 4. History of Inocencia esophagitis. 5. Severe cachexia. 6. Pneumonia. PLAN: The patient is clinically stable. CD4 count pending. We will culture her wounds and conside r surgical evaluation for possible debridement. Continue cefepime, fluconazole. Her CD4 count on 0 06/25/2016 was 903. We will try to obtain information in regards to her HIV medications from the cli reed and restart her on above and also encourage compliance. Dictated By: AGUILA BURGOS [employer] for GINNY PIERSON/SHILPA Conf#: [id number] DID#: [id number]
[2016-08-12] MEDS: EFAVIRENZ 600 MG TAB PO SCH (14:18)
[2016-08-12] MEDS: EMTRICITABINE/TENOFOVIR TAB PO SCH (14:18)
[2016-08-12] MEDS: FLUCONAZOLE 200 MG/NS (PMX) 100 ML IVPB SCH (15:02)
[2016-08-12] MEDS ORDERED: AL HYDROX/MG HYDROX/SIMETH 30 ML CUP PO PRN (15:30)
--- NOTE | 2016-08-12 15:58 | PN ---
Date/Time of Note Date/Time of Note DATE: 08/12/16 TIME: 15:58 Assessment/Plan VTE Prophylaxis VTE Prophylaxis Intervention: SCD's Lines/Catheters IV Catheter Type (from [facility]): PICC Line Central line still needed: Yes Urinary Cath still in place: Yes Reason Cath still needed: other (indicate) Assessment/Plan Chief Complaint/Hosp Course 1. Symptomatic anemia. Normocytic, normochromic. Etiology unclear. Stool for OB negative. Gastroenterology following. Continue proton pump inhibitors. 2. Inocencia esophagitis as per esophagogastroduodenoscopy on 06/24/2016. Continue fluconazole and proton pump inhibitors. 3. Severe protein calorie malnutrition. Continue with dietary supplements. 4. Hypocalcemia, most probably secondary to underlying hypoalbuminemia. Monitor. 5. Human immunodeficiency virus positive. The patient has been off antiretroviral medications for the past 6 months. The patient's latest CD4 count from 06/25/2016 was 903. Antiretroviral medications resumed on 2016. 6. Hepatitis C. Overall stable. No active issues. 7. Debility. Pending physical therapy evaluation. 8. Fluid, electrolytes, and nutrition. Mechanical soft diet. 9. Deep vein thrombosis prophylaxis. Bilateral sequential compression devices. 10. Gastrointestinal prophylaxis. Proton pump inhibitors. PLAN: Replete phosphorous. Continue inpatient care. Case discussed with Dr. Swanson. Problems: Subjective 24 Hr Interval Summary Free Text/Dictation Complains of abdominal pain. Exam/Review of Systems Vital Signs Vitals Vital Signs Date Time Temp Pulse Resp B/P Pulse Ox O2 Delivery O2 Flow Rate FiO2 08/12/16 14:38 126 08/12/16 12:21 97.9 18 112/84 96 08/11/16 05:50 Room Air Intake and Output 08/11/16 08/11/16 08/12/16 15:00 23:00 07:00 Intake Total 1880 ml Output Total 310 ml Balance 1570 ml Exam GENERAL: Malnourished female patient lying in bed in no apparent distress. HEENT: Head normocephalic and atraumatic. Eyes: Anicteric sclerae. Conjunctivae clear. ENT: Nasal septum is midline. Oral mucosa is dry. NECK: Supple. No JVD noticed. RESPIRATORY: Bilaterally equal breath sounds. No adventitious breath sounds heard. No use of accessory muscles of respiration. CARDIAC: Regular rate and rhythm. No obvious murmurs heard. ABDOMEN: Soft. Diffuse tenderness. Bowel sounds hypoactive in all 4 quadrants. GENITOURINARY: The patient has a Hughes catheter in place. EXTREMITIES: No cyanosis, no clubbing, no edema. Peripheral pulses palpable. NEUROLOGIC: The patient is awake and alert. Oriented x2 to 3. No focal deficit. Results Result Diagram: 08/12/16 0730 08/12/16 0730 Results 24 hrs Laboratory Tests Test 08/12/16 07:30 Alanine Aminotransferase (ALT/SGPT) 43 Albumin 1.2 L Albumin/Globulin Ratio 0.48 Alkaline Phosphatase 308 H Anion Gap 8 Aspartate Amino Transf (AST/SGOT) 28 Basophils # 0.0 Basophils % 0.7 Blood Morphology Comment Blood Urea Nitrogen 14 Calcium Level 6.4 L Carbon Dioxide Level 24 Chloride Level 108 Creatinine 0.48 Direct Bilirubin 0.00 Eosinophils # 0.0 Eosinophils % 0.2 Globulin 2.50 Glucose Level 77 Hematocrit 29.7 L Hemoglobin 9.8 L Indirect Bilirubin 0.1 Lymphocytes # 1.2 Lymphocytes % 19.7 Magnesium Level 1.8 Mean Corpuscular Hemoglobin 29.9 Mean Corpuscular Hemoglobin Concent 33.1 Mean Corpuscular Volume 90.4 Mean Platelet Volume 7.2 L Monocytes # 0.4 Monocytes % 6.5 Neutrophils # 4.6 Neutrophils % 72.9 Nucleated Red Blood Cells # 0.0 Nucleated Red Blood Cells % 0.0 Phosphorus Level 1.7 L Platelet Count 137 #L Potassium Level 4.0 Red Blood Count 3.29 L Red Cell Distribution Width 20.6 H Sodium Level 136 Total Bilirubin 0.1 L Total Protein 3.7 L White Blood Count 6.3 Medications Medications Current Medications Dextrose/Sodium Chloride (D5-1/2ns) 1,000 ml @ 125 mls/hr Q8H IV Last administered on 08/11/16t 22:51; Admin Dose 125 MLS/HR; Start 08/09/16 at 06:49 Ondansetron HCl (Zofran Inj) 4 mg Q6H PRN IV NAUSEA AND/OR VOMITING; Start at 07:00 Acetaminophen (Tylenol Supp) 650 mg Q6H PRN [place] PAIN LEVEL 1-3 OR FEVER; Start 08/09/16 at 07:00 Morphine Sulfate (morphine) 2 mg Q4H PRN IV PAIN LEVEL 7-10; Start 08/09/16 at 07:00 Mesalamine (Delzicol Dr) 800 mg BID PO Last administered on 08/12/16 08:22; Admin Dose 800 MG; Start 08/09/16 at 09:00 Pantoprazole 40 mg 40 mg BID@06,18 IV Last administered on 08/12/16 06:13; Admin Dose 40 MG; Start 08/09/16 at 18:00 Fluconazole (Diflucan 200 Mg/ NS (Pmx)) 100 ml @ 100 mls/hr Q24H IVPB Last administered on 08/12/16 15:02; Admin Dose 100 MLS/HR; Start 08/10/16 at 13:30 ; Stop 08/23/16 at 14:29 IV Flush 10 ml 10 ml PRN PRN IV IV PROTOCOL; Start 08/11/16 at 13:30 Cefepime HCl (Maxipime 1gm/50 ml (Pmx)) 50 ml @ 100 mls/hr Q12 IVPB Last administered on 08/12/16 08:22; Admin Dose 100 MLS/HR; Start 08/11/16 at 21:00 Efavirenz (Sustiva) 600 mg DAILY PO Last administered on 08/12/16 14:18; Admin Dose 600 MG; Start 08/12/16 at 14:00 Emtricitabine/ Tenofovir (Truvada) 1 tab DAILY PO Last administered on 14:18; Admin Dose 1 TAB; Start 08/12/16 at 14:00 Collagenase 1 applic 1 applic DAILY TOP Last administered on 08/12/16 15:19; Admin Dose 1 APPLIC; Start 08/12/16 at 14:00 Magnesium Sulfate/ Dextrose (Magnesium Sulfate 1 Gm/D5W) 100 ml @ 100 mls/hr ONCE IVPB ; Start 08/12/16 at 17:00; Stop 08/12/16 at 17:59 Al Hydrox/Mg Hydrox/ Simethicone 30 ml 30 ml Q6H PRN PO GASTROINTESTINAL UPSET Last administered on 08/12/16 15:43; Admin Dose 30 ML; Start 08/12/16 at 15:30 Sodium Phosphate/ Sodium Chloride (Sodium Phosphate/NS) 255 ml @ 63.75 mls/ hr ONCE IVPB ; Start 08/12/16 at 17:00; Stop 08/12/16 at 20:59 TK PERALES NP Aug 12, 2016 15:58
[2016-08-12] MEDS ORDERED: SODIUM PHOSPHATE 20 MEQ in SOD CHLORIDE 0.9% 250 ML IVPB SCH (17:00)
[2016-08-12] MEDS ORDERED: MAGNESIUM SULFATE 1 GM/D5W 100 ML IVPB SCH (17:00)
[2016-08-12] MEDS: MIRTAZAPINE 15 MG TAB PO SCH (21:52)
[2016-08-13] MEDS: PANTOPRAZOLE 40 MG INJ IV SCH ×2 (06:46→18:00)
[2016-08-13] MEDS: DEXTROSE 5%-0.45% NACL 1,000 ML IV SCH ×3 (07:00→22:49)
[2016-08-13 07:28] LABS: POTASSIUM 3.2 mmol/L (3.5-5.1)
[2016-08-13 07:30] LABS: CREATININE 0.45 mg/dl (0.44-1.00)
[2016-08-13 07:31] LABS: CALCIUM 6.3 mg/dl (8.4-10.2)
[2016-08-13 07:39] LABS: TOTAL IRON BINDING CAPACITY 97 ug/dl (241-421)
[2016-08-13 07:47] LABS: IRON 35 ug/dl (35-150)
[2016-08-13 07:58] LABS: MAGNESIUM 1.9 mg/dl (1.7-2.5); PHOSPHORUS 2.2 mg/dl (2.5-4.9)
[2016-08-13 08:22] VITALS: BP 118/87; RESP 18
[2016-08-13] MEDS: COLLAGENASE 30 GM TUBE TOP SCH (09:00)
[2016-08-13] MEDS: CEFEPIME 1GM/50 ML (PMX) 50 ML IVPB SCH ×2 (09:03→21:00)
[2016-08-13] MEDS: EFAVIRENZ 600 MG TAB PO SCH (09:12)
[2016-08-13] MEDS: EMTRICITABINE/TENOFOVIR TAB PO SCH (09:12)
[2016-08-13] MEDS: MESALAMINE (EC) 400 MG CAP PO SCH ×2 (09:12→21:00)
[2016-08-13 09:33] LABS: EOSINOPHILS % 0.1 % (0.0-7.0); HEMATOCRIT 29.3 % (37.0-47.0); HEMOGLOBIN 9.9 g/dl (12.0-16.0); LYMPHOCYTES # 0.8 10^3/ul (0.8-2.9); MEAN CORPUSCULAR HEMOGLOBIN 30.1 pg (29.0-33.0); MEAN CORPUSCULAR HGB CONC 33.7 g/dl (32.0-37.0); MEAN CORPUSCULAR VOLUME 89.4 fl (82.0-101.0); MEAN PLATELET VOLUME 7.5 fl (7.4-10.4); MONOCYTE # 0.5 10^3/ul (0.3-0.9); MONOCYTES % 6.9 % (0.0-11.0); NEUTROPHIL # 5.6 10^3/ul (1.6-7.5); PLATELET COUNT 105 10^3/UL (140-440); RED BLOOD COUNT 3.28 10^6/ul (4.20-5.40); UNCORRECTED WBC 6.9 10^3/ul (4.8-10.8); WHITE BLOOD COUNT 6.9 10^3/ul (4.8-10.8)
[2016-08-13 09:36] LABS: CONDITION 1; LH ANALYZER COMMENTS 1
--- NOTE | 2016-08-13 12:34 | PN ---
Date/Time of Note Date/Time of Note DATE: 08/13/16 TIME: 12:30 Assessment/Plan VTE Prophylaxis VTE Prophylaxis Intervention: SCD's Lines/Catheters IV Catheter Type (from [facility]): PICC Line Central line still needed: Yes Urinary Cath still in place: Yes Reason Cath still needed: other (indicate) Assessment/Plan Chief Complaint/Hosp Course 1. Symptomatic anemia. Normocytic, normochromic. Etiology unclear. Stool for OB negative. Gastroenterology following. Continue proton pump inhibitors. 2. Inocencia esophagitis as per esophagogastroduodenoscopy on 06/24/2016. Continue fluconazole and proton pump inhibitors. 3. Severe protein calorie malnutrition. Continue with dietary supplements. 4. Hypocalcemia, most probably secondary to underlying hypoalbuminemia. Monitor. 5. Human immunodeficiency virus positive. The patient has been off antiretroviral medications for the past 6 months. The patient's latest CD4 count from 06/25/2016 was 903. Antiretroviral medications resumed on 2016. 6. Hepatitis C. Overall stable. No active issues. 7. Debility. Continue physical therapy. 8. Fluid, electrolytes, and nutrition. Mechanical soft diet. 9. Deep vein thrombosis prophylaxis. Bilateral sequential compression devices. 10. Gastrointestinal prophylaxis. Proton pump inhibitors. PLAN: Replete potassium and phosphorus. Continue inpatient care. Obtain ultrasound of upper extremities to evaluate for any underlying DVT. Case discussed with Dr. Swanson. Problems: Subjective 24 Hr Interval Summary Free Text/Dictation Complains of bilateral upper extremity edema. Complains of right upper extremity pain. Abdominal pain better. Appetite better. Exam/Review of Systems Vital Signs Vitals Vital Signs Date Time Temp Pulse Resp B/P Pulse Ox O2 Delivery O2 Flow Rate FiO2 08/13/16 08:22 97.8 114 18 118/87 98 08/11/16 05:50 Room Air Intake and Output 08/12/16 08/12/16 08/13/16 15:00 23:00 07:00 Intake Total 475 ml 400 ml Output Total 300 ml Balance 175 ml 400 ml Exam GENERAL: Malnourished female patient lying in bed in no apparent distress. HEENT: Head normocephalic and atraumatic. Eyes: Anicteric sclerae. Conjunctivae clear. ENT: Nasal septum is midline. Oral mucosa is dry. NECK: Supple. No JVD noticed. RESPIRATORY: Bilaterally equal breath sounds. No adventitious breath sounds heard. No use of accessory muscles of respiration. CARDIAC: Regular rate and rhythm. No obvious murmurs heard. ABDOMEN: Soft. Diffuse tenderness. Bowel sounds hypoactive in all 4 quadrants. GENITOURINARY: The patient has a Hughes catheter in place. EXTREMITIES: No cyanosis, no clubbing. Peripheral pulses palpable. Bilateral upper extremity edema. Right upper extremity multiple areas of ecchymosis. NEUROLOGIC: The patient is awake and alert. Oriented x2 to 3. No focal deficit. Results Result Diagram: 08/13/16 0610 08/13/16 0610 Results 24 hrs Laboratory Tests Test 08/13/16 06:10 Anion Gap 9 Basophils # 0.0 Basophils % 0.0 Blood Morphology Comment Blood Urea Nitrogen 17 Calcium Level 6.3 L Carbon Dioxide Level 23 Chloride Level 108 Creatinine 0.45 Eosinophils # 0.0 Eosinophils % 0.1 Ferritin 362.0 H Glucose Level 90 Hematocrit 29.3 L Hemoglobin 9.9 L Iron Level 35 Lymphocytes # 0.8 Lymphocytes % 12.0 L Magnesium Level 1.9 Mean Corpuscular Hemoglobin 30.1 Mean Corpuscular Hemoglobin Concent 33.7 Mean Corpuscular Volume 89.4 Mean Platelet Volume 7.5 Monocytes # 0.5 Monocytes % 6.9 Neutrophils # 5.6 Neutrophils % 81.0 H Nucleated Red Blood Cells # 0.0 Nucleated Red Blood Cells % 0.0 Percent Iron Saturation 36 Phosphorus Level 2.2 L Platelet Count 105 #L Potassium Level 3.2 L Red Blood Count 3.28 L Red Cell Distribution Width 20.0 H Sodium Level 137 Total Iron Binding Capacity 97 L White Blood Count 6.9 Medications Medications Current Medications Dextrose/Sodium Chloride (D5-1/2ns) 1,000 ml @ 125 mls/hr Q8H IV Last administered on 08/12/16 22:06; Admin Dose 125 MLS/HR; Start 08/09/16 at 06:49 Ondansetron HCl (Zofran Inj) 4 mg Q6H PRN IV NAUSEA AND/OR VOMITING; Start at 07:00 Acetaminophen (Tylenol Supp) 650 mg Q6H PRN IN PAIN LEVEL 1-3 OR FEVER; Start 08/09/16 at 07:00 Morphine Sulfate (morphine) 2 mg Q4H PRN IV PAIN LEVEL 7-10; Start 08/09/16 at 07:00 Mesalamine (Delzicol Dr) 800 mg BID PO Last administered on 08/13/16 09:12; Admin Dose 800 MG; Start 08/09/16 at 09:00 Pantoprazole 40 mg 40 mg BID@06,18 IV Last administered on 08/13/16 06:46; Admin Dose 40 MG; Start 08/09/16 at 18:00 Fluconazole (Diflucan 200 Mg/ NS (Pmx)) 100 ml @ 100 mls/hr Q24H IVPB Last administered on 08/12/16 15:02; Admin Dose 100 MLS/HR; Start 08/10/16 at 13:30 ; Stop 08/23/16 at 14:29 IV Flush 10 ml 10 ml PRN PRN IV IV PROTOCOL; Start 08/11/16 at 13:30 Cefepime HCl (Maxipime 1gm/50 ml (Pmx)) 50 ml @ 100 mls/hr Q12 IVPB Last administered on 08/13/16 09:03; Admin Dose 100 MLS/HR; Start 08/11/16 at 21:00 Efavirenz (Sustiva) 600 mg DAILY PO Last administered on 08/13/16 09:12; Admin Dose 600 MG; Start 08/12/16 at 14:00 Emtricitabine/ Tenofovir (Truvada) 1 tab DAILY PO Last administered on 09:12; Admin Dose 1 TAB; Start 08/12/16 at 14:00 Collagenase (Santyl) 1 applic DAILY TOP Last administered on 08/12/16 15:19; Admin Dose 1 APPLIC; Start 08/12/16 at 14:00 Al Hydrox/Mg Hydrox/Simethicone (Mag-Al Plus) 30 ml Q6H PRN PO GASTROINTESTINAL UPSET Last administered on 08/12/16 15:43; Admin Dose 30 ML; Start 08/12/16 at 15:30 Mirtazapine (Remeron) 15 mg HS PO Last administered on 08/12/16 21:52; Admin Dose 15 MG; Start 08/12/16 at 21:00 TK PERALES NP Aug 13, 2016 12:34
[2016-08-13] MEDS: FLUCONAZOLE 200 MG/NS (PMX) 100 ML IVPB SCH (13:30)
--- NOTE | 2016-08-13 13:32 | CONS ---
Date/Time of Note Date/Time of Note DATE: 08/13/16 TIME: 13:30 Assessment/Plan Assessment/Plan Chief Complaint/Hosp Course SUBJECTIVE: The patient is alert, lying comfortably in bed. Denies pain. No fevers. MICROBIOLOGY: All cultures negative. ANTIMICROBIALS: The patient is on: 1. Cefepime. 2. Fluconazole. 3. Truvada 4. Sustiva ASSESSMENT: 1. Diarrhea, GI on case. 2. 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 3. Human immunodeficiency virus positive with noncompliance with her HIV medications, CD4 count on 06/25/2016 was 903 4. History of Inocencia esophagitis. 5. Severe cachexia. 6. Pneumonia. PLAN: The patient is clinically stable. Continue local wound care, MAYERS, f/u GI rec-s [facility] staff Problems: Consultation Date/Type/Reason Admit Date/Time Aug 09, 2016 at 01:59 Initial Consult Date 08/09/16 Type of Consultation: ID Exam/Review of Systems Vital Signs Vitals Vital Signs Date Time Temp Pulse Resp B/P Pulse Ox O2 Delivery O2 Flow Rate FiO2 08/13/16 08:22 97.8 114 18 118/87 98 08/11/16 05:50 Room Air Intake and Output 08/12/16 08/12/16 08/13/16 15:00 23:00 07:00 Intake Total 475 ml 400 ml Output Total 300 ml Balance 175 ml 400 ml Results Result Diagram: 08/13/16 0610 08/13/16 0610 Results 24 hrs Laboratory Tests Test 08/13/16 06:10 Anion Gap 9 Basophils # 0.0 Basophils % 0.0 Blood Morphology Comment Blood Urea Nitrogen 17 Calcium Level 6.3 L Carbon Dioxide Level 23 Chloride Level 108 Creatinine 0.45 Eosinophils # 0.0 Eosinophils % 0.1 Ferritin 362.0 H Glucose Level 90 Hematocrit 29.3 L Hemoglobin 9.9 L Iron Level 35 Lymphocytes # 0.8 Lymphocytes % 12.0 L Magnesium Level 1.9 Mean Corpuscular Hemoglobin 30.1 Mean Corpuscular Hemoglobin Concent 33.7 Mean Corpuscular Volume 89.4 Mean Platelet Volume 7.5 Monocytes # 0.5 Monocytes % 6.9 Neutrophils # 5.6 Neutrophils % 81.0 H Nucleated Red Blood Cells # 0.0 Nucleated Red Blood Cells % 0.0 Percent Iron Saturation 36 Phosphorus Level 2.2 L Platelet Count 105 #L Potassium Level 3.2 L Red Blood Count 3.28 L Red Cell Distribution Width 20.0 H Sodium Level 137 Total Iron Binding Capacity 97 L White Blood Count 6.9 Medications Medications Current Medications Dextrose/Sodium Chloride (D5-1/2ns) 1,000 ml @ 125 mls/hr Q8H IV Last administered on 08/12/16 22:06; Admin Dose 125 MLS/HR; Start 08/09/16 at 06:49 Ondansetron HCl (Zofran Inj) 4 mg Q6H PRN IV NAUSEA AND/OR VOMITING; Start at 07:00 Acetaminophen (Tylenol Supp) 650 mg Q6H PRN [place] PAIN LEVEL 1-3 OR FEVER; Start 08/09/16 at 07:00 Morphine Sulfate (morphine) 2 mg Q4H PRN IV PAIN LEVEL 7-10; Start 08/09/16 at 07:00 Mesalamine (Delzicol Dr) 800 mg BID PO Last administered on 08/13/16 09:12; Admin Dose 800 MG; Start 08/09/16 at 09:00 Pantoprazole 40 mg 40 mg BID@06,18 IV Last administered on 08/13/16 06:46; Admin Dose 40 MG; Start 08/09/16 at 18:00 Fluconazole (Diflucan 200 Mg/ NS (Pmx)) 100 ml @ 100 mls/hr Q24H IVPB Last administered on 08/12/16 15:02; Admin Dose 100 MLS/HR; Start 08/10/16 at 13:30 ; Stop 08/23/16 at 14:29 IV Flush 10 ml 10 ml PRN PRN IV IV PROTOCOL; Start 08/11/16 at 13:30 Cefepime HCl (Maxipime 1gm/50 ml (Pmx)) 50 ml @ 100 mls/hr Q12 IVPB Last administered on 08/13/16 09:03; Admin Dose 100 MLS/HR; Start 08/11/16 at 21:00 Efavirenz (Sustiva) 600 mg DAILY PO Last administered on 08/13/16 09:12; Admin Dose 600 MG; Start 08/12/16 at 14:00 Emtricitabine/ Tenofovir (Truvada) 1 tab DAILY PO Last administered on 09:12; Admin Dose 1 TAB; Start 08/12/16 at 14:00 Collagenase (Santyl) 1 applic DAILY TOP Last administered on 08/12/16 15:19; Admin Dose 1 APPLIC; Start 08/12/16 at 14:00 Al Hydrox/Mg Hydrox/Simethicone (Mag-Al Plus) 30 ml Q6H PRN PO GASTROINTESTINAL UPSET Last administered on 08/12/16 15:43; Admin Dose 30 ML; Start 08/12/16 at 15:30 Mirtazapine 15 mg 15 mg HS PO Last administered on 08/12/16 21:52; Admin Dose 15 MG; Start 08/12/16 at 21:00 Potassium Phosphate/Sodium Chloride (K Phos (Mm)/NS) 260 ml @ 65 mls/hr ONCE ONCE IVPB ; Start 08/13/16 at 14:00; Stop 08/13/16 at 17:59 AGUILA BURGOS NP Aug 13, 2016 13:32
[2016-08-13 14:00] LABS: LYMPHOCYTE - CD4/CD8 RATIO 0.56 (0.86-5.00)
[2016-08-13] MEDS ORDERED: POTASSIUM PHOSPHATE 30 MM in SOD CHLORIDE 0.9% 250 ML IVPB ONE (14:00)
--- NOTE | 2016-08-13 16:27 | CONS ---
Date/Time of Note Date/Time of Note DATE: 08/13/16 TIME: 16:23 Assessment/Plan Assessment/Plan Additional Assessment/Plan Symptomatic anemia: likely anemia of chronic disease, occult blood negative. Severe protein calorie malnutrition. * Past swallow evaluation. Encourage p.o. intake Generalized weakness. Altered mental status. Inocencia esophagitis on last month's EGD biopsy Recommendation: Occult blood negative, no indication at this time for urgent EGD EGD only if clinically indicated Continue fluconazole for inocencia esophagitis on last month's biopsy Protonix 40 mg iv bid Advance diet to regular Consultation Date/Type/Reason Admit Date/Time Aug 09, 2016 at 01:59 Initial Consult Date 08/09/16 Type of Consultation: GI 24 HR Interval Summary Free Text/Dictation Pt hungry and denies problems swallowing On soft diet Will continue to monitor Exam/Review of Systems Vital Signs Vitals Vital Signs Date Time Temp Pulse Resp B/P Pulse Ox O2 Delivery O2 Flow Rate FiO2 08/13/16 08:22 97.8 114 18 118/87 98 08/11/16 05:50 Room Air Intake and Output 08/12/16 08/12/16 08/13/16 15:00 23:00 07:00 Intake Total 475 ml 400 ml Output Total 300 ml Balance 175 ml 400 ml Exam Constitutional: frail Psych: confusion Head: atraumatic, normocephalic Eyes: EOMI, nl conjunctiva, nl lids, nl sclera ENMT: mucosa pink and moist, nl external ears & nose, nl lips & teeth, nl nasal mucosa & septum Neck: non-tender, supple Respiratory: clear to auscultation, normal air movement Cardiovascular: regular rate and rhythm Gastrointestinal: bowel sounds, soft, non-tender Results Result Diagram: 08/13/16 0610 08/13/16 0610 Results 24 hrs Laboratory Tests Test 08/13/16 06:10 Anion Gap 9 Basophils # 0.0 Basophils % 0.0 Blood Morphology Comment Blood Urea Nitrogen 17 Calcium Level 6.3 L Carbon Dioxide Level 23 Chloride Level 108 Creatinine 0.45 Eosinophils # 0.0 Eosinophils % 0.1 Ferritin 362.0 H Glucose Level 90 Hematocrit 29.3 L Hemoglobin 9.9 L Iron Level 35 Lymphocytes # 0.8 Lymphocytes % 12.0 L Magnesium Level 1.9 Mean Corpuscular Hemoglobin 30.1 Mean Corpuscular Hemoglobin Concent 33.7 Mean Corpuscular Volume 89.4 Mean Platelet Volume 7.5 Monocytes # 0.5 Monocytes % 6.9 Neutrophils # 5.6 Neutrophils % 81.0 H Nucleated Red Blood Cells # 0.0 Nucleated Red Blood Cells % 0.0 Percent Iron Saturation 36 Phosphorus Level 2.2 L Platelet Count 105 #L Potassium Level 3.2 L Red Blood Count 3.28 L Red Cell Distribution Width 20.0 H Sodium Level 137 Total Iron Binding Capacity 97 L White Blood Count 6.9 Medications Medications Current Medications Dextrose/Sodium Chloride (D5-1/2ns) 1,000 ml @ 125 mls/hr Q8H IV Last administered on 08/12/16 22:06; Admin Dose 125 MLS/HR; Start 08/09/16 at 06:49 Ondansetron HCl (Zofran Inj) 4 mg Q6H PRN IV NAUSEA AND/OR VOMITING; Start at 07:00 Acetaminophen (Tylenol Supp) 650 mg Q6H PRN [place] PAIN LEVEL 1-3 OR FEVER; Start 08/09/16 at 07:00 Morphine Sulfate (morphine) 2 mg Q4H PRN IV PAIN LEVEL 7-10; Start 08/09/16 at 07:00 Mesalamine (Delzicol Dr) 800 mg BID PO Last administered on 08/13/16 09:12; Admin Dose 800 MG; Start 08/09/16 at 09:00 Pantoprazole 40 mg 40 mg BID@06,18 IV Last administered on 08/13/16 06:46; Admin Dose 40 MG; Start 08/09/16 at 18:00 Fluconazole (Diflucan 200 Mg/ NS (Pmx)) 100 ml @ 100 mls/hr Q24H IVPB Last administered on 08/12/16 15:02; Admin Dose 100 MLS/HR; Start 08/10/16 at 13:30 ; Stop 08/23/16 at 14:29 IV Flush 10 ml 10 ml PRN PRN IV IV PROTOCOL; Start 08/11/16 at 13:30 Cefepime HCl (Maxipime 1gm/50 ml (Pmx)) 50 ml @ 100 mls/hr Q12 IVPB Last administered on 08/13/16 09:03; Admin Dose 100 MLS/HR; Start 08/11/16 at 21:00 Efavirenz (Sustiva) 600 mg DAILY PO Last administered on 08/13/16 09:12; Admin Dose 600 MG; Start 08/12/16 at 14:00 Emtricitabine/ Tenofovir (Truvada) 1 tab DAILY PO Last administered on 09:12; Admin Dose 1 TAB; Start 08/12/16 at 14:00 Collagenase (Santyl) 1 applic DAILY TOP Last administered on 08/12/16 15:19; Admin Dose 1 APPLIC; Start 08/12/16 at 14:00 Al Hydrox/Mg Hydrox/Simethicone (Mag-Al Plus) 30 ml Q6H PRN PO GASTROINTESTINAL UPSET Last administered on 08/12/16 15:43; Admin Dose 30 ML; Start 08/12/16 at 15:30 Mirtazapine 15 mg 15 mg HS PO Last administered on 08/12/16 21:52; Admin Dose 15 MG; Start 08/12/16 at 21:00 Potassium Phosphate/Sodium Chloride (K Phos (Mm)/NS) 260 ml @ 65 mls/hr ONCE ONCE IVPB ; Start 08/13/16 at 14:00; Stop 08/13/16 at 17:59 MYCHAL COLON Aug 13, 2016 16:27
--- NOTE | 2016-08-13 17:03 | RADRPT ---
PROCEDURE: US bilateral upper extremity veins. CLINICAL INDICATION: Bilateral upper extremity pain and swelling. TECHNIQUE: Multiple longitudinal and transverse images of the bilateral upper extremity venous freedom e was obtained with cheek scale and color Doppler imaging. COMPARISON: None available FINDINGS: The right internal jugular and subclavian veins are patent. There is normal flow with augmentation a nd compressibility throughout the right internal jugular and subclavian veins. There is a PICC line in the right basilic, axillary, and subclavian veins. There is thrombosis of the right axillary, ce phalic, basilic, and brachial veins. The left internal jugular, subclavian, axillary, brachial, basilic, and cephalic veins are patent. T here is normal flow with augmentation and compressibility throughout. There is no thrombus or occlu nazanin. IMPRESSION: 1. PICC line in the right basilic, axillary, and subclavian veins. 2. Normal right internal jugular and subclavian veins. 3. Thrombus in the right axillary, cephalic, basilic, and brachial veins. 4. Normal venous system of the left upper extremity. RPTAT: QQ .Patricio Phillips MD, MD Date Time Electronically viewed and signed by .Patricio Phillips MD, MD on 08/13/2016 17:03 .R/
[2016-08-13 20:20] VITALS: BP 115/87; RESP 18
[2016-08-14] MEDS: MIRTAZAPINE 15 MG TAB PO SCH ×2 (00:06→20:30)
[2016-08-14] MEDS: HYDROCODONE/APAP (5/325) TAB PO PRN (00:06)
[2016-08-14] MEDS: PANTOPRAZOLE 40 MG INJ IV SCH (06:00)
[2016-08-14] MEDS: DEXTROSE 5%-0.45% NACL 1,000 ML IV SCH ×3 (06:49→22:49)
[2016-08-14 07:45] VITALS: BP 114/86; RESP 18
[2016-08-14] MEDS: CEFEPIME 1GM/50 ML (PMX) 50 ML IVPB SCH ×2 (09:00→20:23)
[2016-08-14] MEDS: COLLAGENASE 30 GM TUBE TOP SCH (09:00)
[2016-08-14] MEDS: EMTRICITABINE/TENOFOVIR TAB PO SCH (09:13)
[2016-08-14] MEDS: MESALAMINE (EC) 400 MG CAP PO SCH ×2 (09:13→20:30)
[2016-08-14] MEDS: EFAVIRENZ 600 MG TAB PO SCH (09:13)
[2016-08-14] MEDS ORDERED: LIDOCAINE 1% (MDV) 20 ML INJ SC ONE (09:30)
--- NOTE | 2016-08-14 13:08 | PN ---
Date/Time of Note Date/Time of Note DATE: 08/14/16 TIME: 12:43 Assessment/Plan VTE Prophylaxis VTE Prophylaxis Intervention: SCD's Lines/Catheters IV Catheter Type (from Nrsg): PICC Line Central line still needed: Yes Urinary Cath still in place: Yes Reason Cath still needed: other (indicate) Assessment/Plan Assessment/Plan 1. Inocencia esophagitis, diagnosed from biopsy via EGD, on diflucan 2. Pneumonia, community acquired, on cefepime 3. Multiple decubitus ulcers, wound care 4. Symptomatic anemia: likely anemia of chronic disease, occult blood negative, no endoscopy at this time per GI 5. Severe protein calorie malnutrition. Past swallow evaluation. Encourage p.o. intake 6. Human immunodeficiency virus positive with noncompliance with her HIV medications, CD4 count on 06/25/2016 was 903, follow up with ID 7. Right axillary, cephalic, basilic, and brachial venous thrombus from PICC line, PICC line removed 8. SCD Subjective 24 Hr Interval Summary Free Text/Dictation mild abdominal pain, no fever, no diarrhea. no cough or shortness of breath Exam/Review of Systems Vital Signs Vitals Vital Signs Date Time Temp Pulse Resp B/P Pulse Ox O2 Delivery O2 Flow Rate FiO2 08/14/16 07:45 98.6 98 18 114/86 96 08/11/16 05:50 Room Air Intake and Output 08/13/16 08/13/16 08/14/16 15:00 23:00 07:00 Intake Total 1345 ml 200 ml Output Total 400 ml 600 ml Balance 945 ml -400 ml Exam Constitutional: alert, oriented Psych: nl mood/affect, no complaints Head: atraumatic, normocephalic Eyes: EOMI, PERRL, nl conjunctiva, nl lids ENMT: nl external ears & nose, nl lips & teeth, nl nasal mucosa & septum Neck: non-tender, supple Respiratory: clear to auscultation, normal air movement, No congested cough, No crackles/rales, No diminished breath sounds, No intercostal retraction, No labored breathing, No other, No respirations, No tactile fremitus, No wheezing Cardiovascular: nl pulses, regular rate and rhythm, No S3, No S4, No bruits, No diastolic murmur, No edema, No gallop, No irregular rhythm, No jugular venous distention (JVD), No murmurs/extra sounds, No other, No rub, No systolic murmur Gastrointestinal: nl liver, spleen, non-tender, soft, No ascites, No bowel sounds, No distended, No firm, No hepatomegaly, No mass , No other, No rebound or guarding, No splenomegaly, No surgical scars, No tender Musculoskeletal: nl extremities to inspection Neurological: RESOURCE FORESTER II-XII intact, nl mental status, nl speech, nl strength Skin: other (multiple ulcers) Results Result Diagram: 08/13/16 0610 08/13/16 0610 Medications Medications Current Medications Dextrose/Sodium Chloride (D5-1/2ns) 1,000 ml @ 125 mls/hr Q8H IV Last administered on 08/12/16 22:06; Admin Dose 125 MLS/HR; Start 08/09/16 at 06:49 Ondansetron HCl (Zofran Inj) 4 mg Q6H PRN IV NAUSEA AND/OR VOMITING; Start at 07:00 Acetaminophen (Tylenol Supp) 650 mg Q6H PRN [place] PAIN LEVEL 1-3 OR FEVER; Start 08/09/16 at 07:00 Morphine Sulfate (morphine) 2 mg Q4H PRN IV PAIN LEVEL 7-10; Start 08/09/16 at 07:00 Mesalamine (Delzicol Dr) 800 mg BID PO Last administered on 08/14/16 09:13; Admin Dose 800 MG; Start 08/09/16 at 09:00 Pantoprazole 40 mg 40 mg BID@06,18 IV Last administered on 08/13/16 06:46; Admin Dose 40 MG; Start 08/09/16 at 18:00 Fluconazole (Diflucan 200 Mg/ NS (Pmx)) 100 ml @ 100 mls/hr Q24H IVPB Last administered on 08/12/16 15:02; Admin Dose 100 MLS/HR; Start 08/10/16 at 13:30 ; Stop 08/23/16 at 14:29 IV Flush 10 ml 10 ml PRN PRN IV IV PROTOCOL; Start 08/11/16 at 13:30 Cefepime HCl (Maxipime 1gm/50 ml (Pmx)) 50 ml @ 100 mls/hr Q12 IVPB Last administered on 08/13/16 09:03; Admin Dose 100 MLS/HR; Start 08/11/16 at 21:00 Efavirenz (Sustiva) 600 mg DAILY PO Last administered on 08/14/16 09:13; Admin Dose 600 MG; Start 08/12/16 at 14:00 Emtricitabine/ Tenofovir (Truvada) 1 tab DAILY PO Last administered on 09:13; Admin Dose 1 TAB; Start 08/12/16 at 14:00 Collagenase (Santyl) 1 applic DAILY TOP Last administered on 08/14/16 09:00; Admin Dose 1 APPLIC; Start 08/12/16 at 14:00 Al Hydrox/Mg Hydrox/Simethicone (Mag-Al Plus) 30 ml Q6H PRN PO GASTROINTESTINAL UPSET Last administered on 08/12/16 15:43; Admin Dose 30 ML; Start 08/12/16 at 15:30 Mirtazapine (Remeron) 15 mg HS PO Last administered on 08/14/16 00:06; Admin Dose 15 MG; Start 08/12/16 at 21:00 Acetaminophen/ Hydrocodone Bitart ([place] (5/325)) 1 tab Q6H PRN PO PAIN Last administered on 08/14/16 00:06; Admin Dose 1 TAB; Start 08/13/16 at 23:30 AYSHA VILLAREAL MD Aug 14, 2016 12:55
--- NOTE | 2016-08-14 13:41 | CONS ---
Date/Time of Note Date/Time of Note DATE: 08/14/16 TIME: 13:39 Assessment/Plan Assessment/Plan Chief Complaint/Hosp Course SUBJECTIVE: NO events over night, sleeping, lying comfortably in bed. No fevers. MICROBIOLOGY: Wound cx + GNR. ANTIMICROBIALS: The patient is on: 1. Cefepime. 2. Fluconazole. 3. Truvada 4. Sustiva ASSESSMENT: 1. Diarrhea, GI on case. 2. 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 3. Human immunodeficiency virus positive with noncompliance with her HIV medications, CD4 count on 06/25/2016 was 903 4. History of Inocencia esophagitis. 5. Severe cachexia. 6. Pneumonia. PLAN: The patient is clinically stable. Continue local wound care, MAYERS, f/u GI rec-s, await for final cx [facility] staff Problems: Consultation Date/Type/Reason Admit Date/Time Aug 09, 2016 at 01:59 Initial Consult Date 08/09/16 Type of Consultation: ID Exam/Review of Systems Vital Signs Vitals Vital Signs Date Time Temp Pulse Resp B/P Pulse Ox O2 Delivery O2 Flow Rate FiO2 08/14/16 07:45 98.6 98 18 114/86 96 08/11/16 05:50 Room Air Intake and Output 08/13/16 08/13/16 08/14/16 15:00 23:00 07:00 Intake Total 1345 ml 200 ml Output Total 400 ml 600 ml Balance 945 ml -400 ml Results Result Diagram: 08/13/16 0610 08/13/16 0610 Medications Medications Current Medications Dextrose/Sodium Chloride (D5-1/2ns) 1,000 ml @ 125 mls/hr Q8H IV Last administered on 08/12/16t 22:06; Admin Dose 125 MLS/HR; Start 08/09/16 at 06:49 Ondansetron HCl (Zofran Inj) 4 mg Q6H PRN IV NAUSEA AND/OR VOMITING; Start at 07:00 Acetaminophen (Tylenol Supp) 650 mg Q6H PRN [place] PAIN LEVEL 1-3 OR FEVER; Start 08/09/16 at 07:00 Morphine Sulfate (morphine) 2 mg Q4H PRN IV PAIN LEVEL 7-10; Start 08/09/16 at 07:00 Mesalamine (Delzicol Dr) 800 mg BID PO Last administered on 08/14/16 09:13; Admin Dose 800 MG; Start 08/09/16 at 09:00 Pantoprazole 40 mg 40 mg BID@06,18 IV Last administered on 08/13/16 06:46; Admin Dose 40 MG; Start 08/09/16 at 18:00 Fluconazole (Diflucan 200 Mg/ NS (Pmx)) 100 ml @ 100 mls/hr Q24H IVPB Last administered on 08/12/16 15:02; Admin Dose 100 MLS/HR; Start 08/10/16 at 13:30 ; Stop 08/23/16 at 14:29 IV Flush 10 ml 10 ml PRN PRN IV IV PROTOCOL; Start 08/11/16 at 13:30 Cefepime HCl (Maxipime 1gm/50 ml (Pmx)) 50 ml @ 100 mls/hr Q12 IVPB Last administered on 08/13/16 09:03; Admin Dose 100 MLS/HR; Start 08/11/16 at 21:00 Efavirenz (Sustiva) 600 mg DAILY PO Last administered on 08/14/16 09:13; Admin Dose 600 MG; Start 08/12/16 at 14:00 Emtricitabine/ Tenofovir (Truvada) 1 tab DAILY PO Last administered on 09:13; Admin Dose 1 TAB; Start 08/12/16 at 14:00 Collagenase (Santyl) 1 applic DAILY TOP Last administered on 08/14/16 09:00; Admin Dose 1 APPLIC; Start 08/12/16 at 14:00 Al Hydrox/Mg Hydrox/Simethicone (Mag-Al Plus) 30 ml Q6H PRN PO GASTROINTESTINAL UPSET Last administered on 08/12/16 15:43; Admin Dose 30 ML; Start 08/12/16 at 15:30 Mirtazapine (Remeron) 15 mg HS PO Last administered on 08/14/16 00:06; Admin Dose 15 MG; Start 08/12/16 at 21:00 Acetaminophen/ Hydrocodone Bitart ([place] (5/325)) 1 tab Q6H PRN PO PAIN Last administered on 08/14/16 00:06; Admin Dose 1 TAB; Start 08/13/16 at 23:30 AGUILA BURGOS PREFITTER Aug 14, 2016 13:41
--- NOTE | 2016-08-14 17:09 | CONS ---
Date/Time of Note Date/Time of Note DATE: 08/14/16 TIME: 17:05 Assessment/Plan Assessment/Plan Additional Assessment/Plan Symptomatic anemia: likely anemia of chronic disease, occult blood negative. Severe protein calorie malnutrition. * Past swallow evaluation. Encourage p.o. intake Generalized weakness. Altered mental status. Inocencia esophagitis on last month's EGD biopsy HIV disease Recommendation: Occult blood negative, no indication at this time for urgent EGD EGD only if clinically indicated Continue fluconazole for inocencia esophagitis on last month's biopsy Protonix 40 mg iv bid Advance diet to regular ID following Further recommendations depend on clinical course Patient seen in collaboration with Dr. Carrasco Consultation Date/Type/Reason Admit Date/Time Aug 09, 2016 at 01:59 Initial Consult Date 08/09/16 Type of Consultation: Gastroenterology 24 HR Interval Summary Free Text/Dictation Little p.o. intake Receiving treatment for thrush and HIV On Xarelto for DVT Hemoglobin stable Exam/Review of Systems Vital Signs Vitals Vital Signs Date Time Temp Pulse Resp B/P Pulse Ox O2 Delivery O2 Flow Rate FiO2 08/14/16 07:45 98.6 98 18 114/86 96 08/11/16 05:50 Room Air Intake and Output 08/13/16 08/13/16 08/14/16 15:00 23:00 07:00 Intake Total 1345 ml 200 ml Output Total 400 ml 600 ml Balance 945 ml -400 ml Exam Constitutional: frail Psych: confusion Head: atraumatic, normocephalic Eyes: EOMI, nl conjunctiva, nl lids, nl sclera ENMT: mucosa pink and moist, nl external ears & nose, nl lips & teeth, nl nasal mucosa & septum Neck: non-tender, supple Respiratory: clear to auscultation, normal air movement Cardiovascular: regular rate and rhythm Gastrointestinal: bowel sounds, soft, non-tender Results Result Diagram: 08/13/16 0610 08/13/16 0610 Medications Medications Current Medications Dextrose/Sodium Chloride (D5-1/2ns) 1,000 ml @ 125 mls/hr Q8H IV Last administered on 08/12/16 22:06; Admin Dose 125 MLS/HR; Start 08/09/16 at 06:49 Ondansetron HCl (Zofran Inj) 4 mg Q6H PRN IV NAUSEA AND/OR VOMITING; Start at 07:00 Acetaminophen (Tylenol Supp) 650 mg Q6H PRN [place] PAIN LEVEL 1-3 OR FEVER; Start 08/09/16 at 07:00 Morphine Sulfate (morphine) 2 mg Q4H PRN IV PAIN LEVEL 7-10; Start 08/09/16 at 07:00 Mesalamine 800 mg 800 mg BID PO Last administered on 08/14/16 09:13; Admin Dose 800 MG; Start 08/09/16 at 09:00 Cefepime HCl (Maxipime 1gm/50 ml (Pmx)) 50 ml @ 100 mls/hr Q12 IVPB Last administered on 08/13/16 09:03; Admin Dose 100 MLS/HR; Start 08/11/16 at 21:00 Efavirenz (Sustiva) 600 mg DAILY PO Last administered on 08/14/16 09:13; Admin Dose 600 MG; Start 08/12/16 at 14:00 Emtricitabine/ Tenofovir (Truvada) 1 tab DAILY PO Last administered on 09:13; Admin Dose 1 TAB; Start 08/12/16 at 14:00 Collagenase (Santyl) 1 applic DAILY TOP Last administered on 08/14/16 09:00; Admin Dose 1 APPLIC; Start 08/12/16 at 14:00 Al Hydrox/Mg Hydrox/Simethicone (Mag-Al Plus) 30 ml Q6H PRN PO GASTROINTESTINAL UPSET Last administered on 08/12/16 15:43; Admin Dose 30 ML; Start 08/12/16 at 15:30 Mirtazapine (Remeron) 15 mg HS PO Last administered on 08/14/16 00:06; Admin Dose 15 MG; Start 08/12/16 at 21:00 Acetaminophen/ Hydrocodone Bitart ([place] (5/325)) 1 tab Q6H PRN PO PAIN Last administered on 08/14/16 00:06; Admin Dose 1 TAB; Start 08/13/16 at 23:30 Fluconazole (Diflucan) 200 mg DAILY PO ; Start 08/15/16 at 09:00; Stop 08/23/16 at 12:00 Pantoprazole (Protonix Tab) 40 mg BID@06,18 PO ; Start 08/14/16 at 18:00 IV Flush (NS 10 ml) 10 ml PRN PRN IV IV PROTOCOL; Start 08/14/16 at 17:00 MYCHAL COLON Aug 14, 2016 17:09
--- NOTE | 2016-08-14 17:16 | RADRPT ---
PROCEDURE: XR Chest. CLINICAL INDICATION: PICC line insertion. Dyspnea. TECHNIQUE: Single frontal chest x-ray. COMPARISON: 08/11/2016 FINDINGS: Significant bilateral pleural effusions are seen, worse when compared to the prior study. Left-side d PICC line is seen with the tip in the cavoatrial junction, in good location. Right-sided PICC sravanthi e seen previously has been removed. There is no pneumothorax. The cardiomediastinal silhouette is unchanged and grossly unremarkable. The osseous structures are unremarkable. IMPRESSION: 1. Bilateral pleural effusions, left greater than right. These are markedly increased and worse wh en compared to the prior study. 2. New left-sided PICC line has been placed with the tip in the cavoatrial junction. There is no e vidence for pneumothorax. RPTAT: PP .Soham Foster MD, MD Date Time Electronically viewed and signed by .Soham Foster MD, on 08/14/2016 17:15 .B/
[2016-08-14] MEDS: PANTOPRAZOLE (EC) 40 MG TAB PO SCH (17:32)
[2016-08-14] MEDS: RIVAROXABAN 15 MG TABLET PO SCH (17:32)
[2016-08-14] MEDS: morphine 2 MG INJ IV PRN (17:33)
--- NOTE | 2016-08-14 18:25 | RADRPT ---
PROCEDURE: US guidance for PICC line CLINICAL INDICATION: PICC line placement TECHNIQUE: Multiple real-time images were acquired of the patient's arm utilizing a high resolutio n transducer. This was performed by the PICC line nurse for venous access. COMPARISON: None FINDINGS: Ultrasound guidance for PICC line placement. IMPRESSION: Ultrasound guidance for PICC line placement. RPTAT: AA .Jonathan Paris MD, MD Date Time Electronically viewed and signed by .Jonathan Paris MD, on 08/14/2016 18:25 .S/
[2016-08-14 18:48] LABS: BASOPHILS % 0.2 % (0.0-2.0); EOSINOPHILS % 0.5 % (0.0-7.0); HEMATOCRIT 25.9 % (37.0-47.0); HEMOGLOBIN 8.6 g/dl (12.0-16.0); LYMPHOCYTES # 0.9 10^3/ul (0.8-2.9); LYMPHOCYTES % 19.6 % (15.0-51.0); MEAN CORPUSCULAR HEMOGLOBIN 29.8 pg (29.0-33.0); MEAN CORPUSCULAR HGB CONC 33.2 g/dl (32.0-37.0); MEAN CORPUSCULAR VOLUME 89.6 fl (82.0-101.0); MEAN PLATELET VOLUME 9.3 fl (7.4-10.4); MONOCYTE # 0.4 10^3/ul (0.3-0.9); MONOCYTES % 8.4 % (0.0-11.0); NEUTROPHIL # 3.1 10^3/ul (1.6-7.5); NEUTROPHILS % 69.5 % (39.0-77.0); PLATELET COUNT 121 10^3/UL (140-415); RED BLOOD COUNT 2.89 10^6/ul (4.20-5.40); RED CELL DISTRIBUTION WIDTH 18.8 % (11.5-14.5); WHITE BLOOD COUNT 4.4 10^3/ul (4.8-10.8)
[2016-08-14 18:58] LABS: ADD SCAN DIFF NO
[2016-08-14 19:04] LABS: POTASSIUM 3.2 mmol/L (3.5-5.1)
[2016-08-14 19:06] LABS: CREATININE 0.44 mg/dl (0.44-1.00)
[2016-08-14 19:07] LABS: CALCIUM 6.6 mg/dl (8.4-10.2)
[2016-08-14 19:08] LABS: MAGNESIUM 1.9 mg/dl (1.7-2.5); PHOSPHORUS 2.5 mg/dl (2.5-4.9)
[2016-08-14 20:00] VITALS: BP 119/75; RESP 18
[2016-08-14] MEDS ORDERED: SOD CHLORIDE 0.9% 100 ML ONE (20:44)
[2016-08-15] MEDS: morphine 2 MG INJ IV PRN (00:31)
[2016-08-15] MEDS: DEXTROSE 5%-0.45% NACL 1,000 ML IV SCH ×3 (00:36→22:33)
[2016-08-15] MEDS: PANTOPRAZOLE (EC) 40 MG TAB PO SCH ×2 (05:26→17:48)
[2016-08-15 05:50] LABS: ADD SCAN DIFF NO
[2016-08-15 06:07] LABS: EOSINOPHILS % 0.4 % (0.0-7.0); HEMATOCRIT 26.6 % (37.0-47.0); HEMOGLOBIN 8.7 g/dl (12.0-16.0); LYMPHOCYTES # 1.1 10^3/ul (0.8-2.9); LYMPHOCYTES % 21.5 % (15.0-51.0); MEAN CORPUSCULAR HEMOGLOBIN 29.2 pg (29.0-33.0); MEAN CORPUSCULAR HGB CONC 32.7 g/dl (32.0-37.0); MEAN CORPUSCULAR VOLUME 89.3 fl (82.0-101.0); MEAN PLATELET VOLUME 9.9 fl (7.4-10.4); MONOCYTE # 0.5 10^3/ul (0.3-0.9); MONOCYTES % 9.4 % (0.0-11.0); NEUTROPHIL # 3.4 10^3/ul (1.6-7.5); NEUTROPHILS % 67.1 % (39.0-77.0); PLATELET COUNT 143 10^3/UL (140-415); RED BLOOD COUNT 2.98 10^6/ul (4.20-5.40); RED CELL DISTRIBUTION WIDTH 19.1 % (11.5-14.5); WHITE BLOOD COUNT 5.1 10^3/ul (4.8-10.8)
[2016-08-15 06:10] LABS: POTASSIUM 3.3 mmol/L (3.5-5.1)
[2016-08-15 06:12] LABS: CREATININE 0.45 mg/dl (0.44-1.00)
[2016-08-15 06:13] LABS: CALCIUM 6.9 mg/dl (8.4-10.2)
[2016-08-15 06:25] LABS: PHOSPHORUS 2.4 mg/dl (2.5-4.9)
[2016-08-15 07:40] VITALS: BP 106/78; RESP 20
[2016-08-15] MEDS: FLUCONAZOLE 200 MG TAB PO SCH (08:44)
[2016-08-15] MEDS: RIVAROXABAN 15 MG TABLET PO SCH ×2 (08:44→17:48)
[2016-08-15] MEDS: MESALAMINE (EC) 400 MG CAP PO SCH ×2 (08:44→22:33)
[2016-08-15] MEDS: EMTRICITABINE/TENOFOVIR TAB PO SCH (08:44)
[2016-08-15] MEDS: EFAVIRENZ 600 MG TAB PO SCH (08:44)
[2016-08-15] MEDS: CEFEPIME 1GM/50 ML (PMX) 50 ML IVPB SCH (08:46)
[2016-08-15] MEDS: COLLAGENASE 30 GM TUBE TOP SCH (08:48)
--- NOTE | 2016-08-15 12:26 | CONS ---
Date/Time of Note Date/Time of Note DATE: 08/15/16 TIME: 12:24 Assessment/Plan Assessment/Plan Additional Assessment/Plan Symptomatic anemia: likely anemia of chronic disease, occult blood negative. Severe protein calorie malnutrition. * Passed swallow evaluation. Encourage p.o. intake Generalized weakness. Altered mental status. Inocencia esophagitis on last month's EGD biopsy HIV disease Recommendation: Occult blood negative, no indication at this time for urgent EGD EGD only if clinically indicated Continue fluconazole for inocencia esophagitis on last month's biopsy Protonix 40 mg iv bid Advance diet to regular Review ammonia labs ID following Further recommendations depend on clinical course Patient seen in collaboration with Dr. Carrasco Consultation Date/Type/Reason Admit Date/Time Aug 09, 2016 at 01:59 Initial Consult Date 08/09/16 Type of Consultation: Gastroenterology 24 HR Interval Summary Free Text/Dictation Tolerating diet Very lethargic at bedside Exam/Review of Systems Vital Signs Vitals Vital Signs Date Time Temp Pulse Resp B/P Pulse Ox O2 Delivery O2 Flow Rate FiO2 08/15/16 07:40 98.8 100 20 106/78 96 Intake and Output 08/14/16 08/14/16 08/15/16 15:00 23:00 07:00 Intake Total 170 ml 1960 ml Output Total 1000 ml 500 ml Balance -830 ml 1460 ml Exam Constitutional: frail Psych: confusion Head: atraumatic, normocephalic Eyes: EOMI, nl conjunctiva, nl lids, nl sclera ENMT: mucosa pink and moist, nl external ears & nose, nl lips & teeth, nl nasal mucosa & septum Neck: non-tender, supple Respiratory: clear to auscultation, normal air movement Cardiovascular: regular rate and rhythm Gastrointestinal: bowel sounds, soft, non-tender Results Result Diagram: 08/15/16 0531 08/15/16 0535 Results 24 hrs Laboratory Tests Test 08/14/16 18:08 08/15/16 04:43 08/15/16 05:31 08/15/16 05:35 Anion Gap 7 L 7 L Basophils # 0.0 0.0 Basophils % 0.2 0.0 Blood Urea Nitrogen 16 14 Calcium Level 6.6 L 6.9 L Carbon Dioxide Level 24 25 Chloride Level 110 111 H Creatinine 0.44 0.45 Eosinophils # 0.0 0.0 Eosinophils % 0.5 0.4 Glucose Level 92 101 Hematocrit 25.9 L 26.6 L Hemoglobin 8.6 L 8.7 L Lymphocytes # 0.9 1.1 Lymphocytes % 19.6 21.5 Magnesium Level 1.9 2.0 Mean Corpuscular Hemoglobin 29.8 29.2 Mean Corpuscular Hemoglobin Concent 33.2 32.7 Mean Corpuscular Volume 89.6 89.3 Mean Platelet Volume 9.3 # 9.9 Monocytes # 0.4 0.5 Monocytes % 8.4 9.4 Neutrophils # 3.1 3.4 Neutrophils % 69.5 67.1 Nucleated Red Blood Cells # 0.0 0.0 Nucleated Red Blood Cells % 0.0 0.0 Phosphorus Level 2.5 2.4 L Platelet Count 121 L 143 Potassium Level 3.2 L 3.3 L Red Blood Count 2.89 L 2.98 L Red Cell Distribution Width 18.8 H 19.1 H Sodium Level 138 140 White Blood Count 4.4 #L 5.1 Medications Medications Current Medications Dextrose/Sodium Chloride (D5-1/2ns) 1,000 ml @ 125 mls/hr Q8H IV Last administered on 08/15/16 10:50; Admin Dose 125 MLS/HR; Start 08/09/16 at 06:49 Ondansetron HCl (Zofran Inj) 4 mg Q6H PRN IV NAUSEA AND/OR VOMITING; Start at 07:00 Acetaminophen (Tylenol Supp) 650 mg Q6H PRN [place] PAIN LEVEL 1-3 OR FEVER; Start 08/09/16 at 07:00 Morphine Sulfate (morphine) 2 mg Q4H PRN IV PAIN LEVEL 7-10 Last administered on 08/15/16 00:31; Admin Dose 2 MG; Start 08/09/16 at 07:00 Mesalamine 800 mg 800 mg BID PO Last administered on 08/15/16 08:44; Admin Dose 800 MG; Start 08/09/16 at 09:00 Cefepime HCl (Maxipime 1gm/50 ml (Pmx)) 50 ml @ 100 mls/hr Q12 IVPB Last administered on 08/15/16 08:46; Admin Dose 100 MLS/HR; Start 08/11/16 at 21:00 Efavirenz (Sustiva) 600 mg DAILY PO Last administered on 08/15/16 08:44; Admin Dose 600 MG; Start 08/12/16 at 14:00 Emtricitabine/ Tenofovir (Truvada) 1 tab DAILY PO Last administered on 08:44; Admin Dose 1 TAB; Start 08/12/16 at 14:00 Collagenase (Santyl) 1 applic DAILY TOP Last administered on 08/15/16 08:48; Admin Dose 1 APPLIC; Start 08/12/16 at 14:00 Al Hydrox/Mg Hydrox/Simethicone (Mag-Al Plus) 30 ml Q6H PRN PO GASTROINTESTINAL UPSET Last administered on 08/12/16 15:43; Admin Dose 30 ML; Start 08/12/16 at 15:30 Mirtazapine (Remeron) 15 mg HS PO Last administered on 08/14/16 20:30; Admin Dose 15 MG; Start 08/12/16 at 21:00 Acetaminophen/ Hydrocodone Bitart ([place] (5/325)) 1 tab Q6H PRN PO PAIN Last administered on 08/14/16 00:06; Admin Dose 1 TAB; Start 08/13/16 at 23:30 Fluconazole (Diflucan) 200 mg DAILY PO Last administered on 08/15/16 08:44; Admin Dose 200 MG; Start 08/15/16 at 09:00; Stop 08/23/16 at 12:00 Pantoprazole (Protonix Tab) 40 mg BID@,18 PO Last administered on 08/15/16 05:26; Admin Dose 40 MG; Start 08/14/16 at 18:00 IV Flush (NS 10 ml) 10 ml PRN PRN IV IV PROTOCOL; Start 08/14/16 at 17:00 MYCHAL COLON Aug 15, 2016 12:26
--- NOTE | 2016-08-15 13:24 | CONS ---
Date/Time of Note Date/Time of Note DATE: 08/15/16 TIME: 13:23 Assessment/Plan Assessment/Plan Chief Complaint/Hosp Course SUBJECTIVE: NO events over night, sleeping, lying comfortably in bed. No fevers. MICROBIOLOGY: Wound cx + GNR. ANTIMICROBIALS: The patient is on: 1. Cefepime. 2. Fluconazole. 3. Truvada 4. Sustiva ASSESSMENT: 1. Diarrhea, GI on case. 2. 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 3. Human immunodeficiency virus positive with noncompliance with her HIV medications, CD4 count on 06/25/2016 was 903 4. History of Inocencia esophagitis. 5. Severe cachexia. 6. Pneumonia. PLAN: The patient is clinically stable. Change Cefepime to Levaquin, continue local wound care, MAYERS, f/u GI rec-s [facility] staff Problems: Consultation Date/Type/Reason Admit Date/Time Aug 09, 2016 at 01:59 Initial Consult Date 08/09/16 Type of Consultation: ID Exam/Review of Systems Vital Signs Vitals Vital Signs Date Time Temp Pulse Resp B/P Pulse Ox O2 Delivery O2 Flow Rate FiO2 08/15/16 07:40 98.8 100 20 106/78 96 Intake and Output 08/14/16 08/14/16 08/15/16 15:00 23:00 07:00 Intake Total 170 ml 1960 ml Output Total 1000 ml 500 ml Balance -830 ml 1460 ml Results Result Diagram: 08/15/16 0531 08/15/16 0535 Results 24 hrs Laboratory Tests Test 08/14/16 18:08 08/15/16 04:43 08/15/16 05:31 08/15/16 05:35 Anion Gap 7 L 7 L Basophils # 0.0 0.0 Basophils % 0.2 0.0 Blood Urea Nitrogen 16 14 Calcium Level 6.6 L 6.9 L Carbon Dioxide Level 24 25 Chloride Level 110 111 H Creatinine 0.44 0.45 Eosinophils # 0.0 0.0 Eosinophils % 0.5 0.4 Glucose Level 92 101 Hematocrit 25.9 L 26.6 L Hemoglobin 8.6 L 8.7 L Lymphocytes # 0.9 1.1 Lymphocytes % 19.6 21.5 Magnesium Level 1.9 2.0 Mean Corpuscular Hemoglobin 29.8 29.2 Mean Corpuscular Hemoglobin Concent 33.2 32.7 Mean Corpuscular Volume 89.6 89.3 Mean Platelet Volume 9.3 # 9.9 Monocytes # 0.4 0.5 Monocytes % 8.4 9.4 Neutrophils # 3.1 3.4 Neutrophils % 69.5 67.1 Nucleated Red Blood Cells # 0.0 0.0 Nucleated Red Blood Cells % 0.0 0.0 Phosphorus Level 2.5 2.4 L Platelet Count 121 L 143 Potassium Level 3.2 L 3.3 L Red Blood Count 2.89 L 2.98 L Red Cell Distribution Width 18.8 H 19.1 H Sodium Level 138 140 White Blood Count 4.4 #L 5.1 Medications Medications Current Medications Dextrose/Sodium Chloride (D5-1/2ns) 1,000 ml @ 125 mls/hr Q8H IV Last administered on 08/15/16 10:50; Admin Dose 125 MLS/HR; Start 08/09/16 at 06:49 Ondansetron HCl (Zofran Inj) 4 mg Q6H PRN IV NAUSEA AND/OR VOMITING; Start at 07:00 Acetaminophen (Tylenol Supp) 650 mg Q6H PRN [place] PAIN LEVEL 1-3 OR FEVER; Start 08/09/16 at 07:00 Morphine Sulfate (morphine) 2 mg Q4H PRN [place] PAIN LEVEL 7-10 Last administered on 08/15/16 00:31; Admin Dose 2 MG; Start 08/09/16 at 07:00 Mesalamine 800 mg 800 mg BID PO Last administered on 08/15/16 08:44; Admin Dose 800 MG; Start 08/09/16 at 09:00 Cefepime HCl (Maxipime 1gm/50 ml (Pmx)) 50 ml @ 100 mls/hr Q12 IVPB Last administered on 08/15/16 08:46; Admin Dose 100 MLS/HR; Start 08/11/16 at 21:00 Efavirenz (Sustiva) 600 mg DAILY PO Last administered on 08/15/16 08:44; Admin Dose 600 MG; Start 08/12/16 at 14:00 Emtricitabine/ Tenofovir (Truvada) 1 tab DAILY PO Last administered on 08:44; Admin Dose 1 TAB; Start 08/12/16 at 14:00 Collagenase (Santyl) 1 applic DAILY TOP Last administered on 08/15/16 08:48; Admin Dose 1 APPLIC; Start 08/12/16 at 14:00 Al Hydrox/Mg Hydrox/Simethicone (Mag-Al Plus) 30 ml Q6H PRN PO GASTROINTESTINAL UPSET Last administered on 08/12/16 15:43; Admin Dose 30 ML; Start 08/12/16 at 15:30 Mirtazapine (Remeron) 15 mg HS PO Last administered on 08/14/16 20:30; Admin Dose 15 MG; Start 08/12/16 at 21:00 Acetaminophen/ Hydrocodone Bitart ([place] (5/325)) 1 tab Q6H PRN PO PAIN Last administered on 08/14/16 00:06; Admin Dose 1 TAB; Start 08/13/16 at 23:30 Fluconazole (Diflucan) 200 mg DAILY PO Last administered on 08/15/16 08:44; Admin Dose 200 MG; Start 08/15/16 at 09:00; Stop 08/23/16 at 12:00 Pantoprazole (Protonix Tab) 40 mg BID@06,18 PO Last administered on 08/15/16 05:26; Admin Dose 40 MG; Start 08/14/16 at 18:00 IV Flush (NS 10 ml) 10 ml PRN PRN IV IV PROTOCOL; Start 08/14/16 at 17:00 AGUILA BURGOS [employer]AD [employer] Aug 15, 2016 13:24
[2016-08-15] MEDS ORDERED: POTASSIUM CHLORIDE (SR) 20 MEQ TAB PO STA (16:16)
--- NOTE | 2016-08-15 16:22 | PN ---
Date/Time of Note Date/Time of Note DATE: 08/15/16 TIME: 16:15 Assessment/Plan VTE Prophylaxis VTE Prophylaxis Intervention: SCD's, other (xarelto) Lines/Catheters IV Catheter Type (from Nrs): PICC Line Central line still needed: Yes Urinary Cath still in place: Yes Reason Cath still needed: other (indicate) Assessment/Plan Assessment/Plan 1. Inocencia esophagitis, diagnosed from biopsy via EGD, on diflucan 2. Pneumonia, community acquired, on cefepime 3. Multiple decubitus ulcers, wound care 4. Symptomatic anemia: likely anemia of chronic disease, occult blood negative, no endoscopy at this time per GI 5. Severe protein calorie malnutrition. Past swallow evaluation. Encourage p.o. intake 6. Human immunodeficiency virus positive with noncompliance with her HIV medications, CD4 count on 06/25/2016 was 903, follow up with ID 7. Right axillary, cephalic, basilic, and brachial venous thrombus from PICC line, PICC line removed 8. SCD 9. Hypokalemia, KCL, follow up with K Subjective 24 Hr Interval Summary Free Text/Dictation no distress, afebrile Exam/Review of Systems Vital Signs Vitals Vital Signs Date Time Temp Pulse Resp B/P Pulse Ox O2 Delivery O2 Flow Rate FiO2 08/15/16 07:40 98.8 100 20 106/78 96 Intake and Output 08/14/16 08/14/16 08/15/16 15:00 23:00 07:00 Intake Total 170 ml 1960 ml Output Total 1000 ml 500 ml Balance -830 ml 1460 ml Exam Constitutional: alert, oriented, well developed Psych: nl mood/affect, no complaints Head: atraumatic, normocephalic Eyes: EOMI, PERRL, nl conjunctiva ENMT: nl external ears & nose, nl lips & teeth, nl nasal mucosa & septum Neck: non-tender, supple Respiratory: clear to auscultation, normal air movement, No congested cough, No crackles/rales, No diminished breath sounds, No intercostal retraction, No labored breathing, No other, No respirations, No tactile fremitus, No wheezing Cardiovascular: nl pulses, regular rate and rhythm, No S3, No S4, No bruits, No diastolic murmur, No edema, No gallop, No irregular rhythm, No jugular venous distention (JVD), No murmurs/extra sounds, No other, No rub, No systolic murmur Gastrointestinal: nl liver, spleen, non-tender, No ascites, No bowel sounds, No distended, No firm, No hepatomegaly, No mass , No other, No rebound or guarding, No soft, No splenomegaly, No surgical scars , No tender Musculoskeletal: nl extremities to inspection Neurological: OFFICE 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 II-XII intact, nl mental status, nl speech, nl strength Skin: nl turgor Results Result Diagram: 08/15/16 0531 08/15/16 0535 Results 24 hrs Laboratory Tests Test 08/14/16 18:08 08/15/16 04:43 08/15/16 05:31 08/15/16 05:35 Anion Gap 7 L 7 L Basophils # 0.0 0.0 Basophils % 0.2 0.0 Blood Urea Nitrogen 16 14 Calcium Level 6.6 L 6.9 L Carbon Dioxide Level 24 25 Chloride Level 110 111 H Creatinine 0.44 0.45 Eosinophils # 0.0 0.0 Eosinophils % 0.5 0.4 Glucose Level 92 101 Hematocrit 25.9 L 26.6 L Hemoglobin 8.6 L 8.7 L Lymphocytes # 0.9 1.1 Lymphocytes % 19.6 21.5 Magnesium Level 1.9 2.0 Mean Corpuscular Hemoglobin 29.8 29.2 Mean Corpuscular Hemoglobin Concent 33.2 32.7 Mean Corpuscular Volume 89.6 89.3 Mean Platelet Volume 9.3 # 9.9 Monocytes # 0.4 0.5 Monocytes % 8.4 9.4 Neutrophils # 3.1 3.4 Neutrophils % 69.5 67.1 Nucleated Red Blood Cells # 0.0 0.0 Nucleated Red Blood Cells % 0.0 0.0 Phosphorus Level 2.5 2.4 L Platelet Count 121 L 143 Potassium Level 3.2 L 3.3 L Red Blood Count 2.89 L 2.98 L Red Cell Distribution Width 18.8 H 19.1 H Sodium Level 138 140 White Blood Count 4.4 #L 5.1 Test 08/15/16 13:45 Ammonia < 9 L Medications Medications Current Medications Dextrose/Sodium Chloride (D5-1/2ns) 1,000 ml @ 125 mls/hr Q8H IV Last administered on 08/15/16t 10:50; Admin Dose 125 MLS/HR; Start 08/09/16 at 06:49 Ondansetron HCl (Zofran Inj) 4 mg Q6H PRN IV NAUSEA AND/OR VOMITING; Start at 07:00 Acetaminophen (Tylenol Supp) 650 mg Q6H PRN [place] PAIN LEVEL 1-3 OR FEVER; Start 08/09/16 at 07:00 Morphine Sulfate (morphine) 2 mg Q4H PRN IV PAIN LEVEL 7-10 Last administered on 08/15/16 00:31; Admin Dose 2 MG; Start 08/09/16 at 07:00 Mesalamine (Delzicol Dr) 800 mg BID PO Last administered on 08/15/16 08:44; Admin Dose 800 MG; Start 08/09/16 at 09:00 Efavirenz (Sustiva) 600 mg DAILY PO Last administered on 08/15/16 08:44; Admin Dose 600 MG; Start 08/12/16 at 14:00 Emtricitabine/ Tenofovir (Truvada) 1 tab DAILY PO Last administered on 08:44; Admin Dose 1 TAB; Start 08/12/16 at 14:00 Collagenase (Santyl) 1 applic DAILY TOP Last administered on 08/15/16 08:48; Admin Dose 1 APPLIC; Start 08/12/16 at 14:00 Al Hydrox/Mg Hydrox/Simethicone (Mag-Al Plus) 30 ml Q6H PRN PO GASTROINTESTINAL UPSET Last administered on 08/12/16 15:43; Admin Dose 30 ML; Start 08/12/16 at 15:30 Mirtazapine (Remeron) 15 mg HS PO Last administered on 08/14/16 20:30; Admin Dose 15 MG; Start 08/12/16 at 21:00 Acetaminophen/ Hydrocodone Bitart ([place] (5/325)) 1 tab Q6H PRN PO PAIN Last administered on 08/14/16 00:06; Admin Dose 1 TAB; Start 08/13/16 at 23:30 Fluconazole (Diflucan) 200 mg DAILY PO Last administered on 08/15/16 08:44; Admin Dose 200 MG; Start 08/15/16 at 09:00; Stop 08/23/16 at 12:00 Pantoprazole (Protonix Tab) 40 mg BID@18 PO Last administered on 08/15/16 05:26; Admin Dose 40 MG; Start 08/14/16 at 18:00 IV Flush (NS 10 ml) 10 ml PRN PRN IV IV PROTOCOL; Start 08/14/16 at 17:00 Lactobacillus Acidoph/Bulgaricus (Floranex) 1 tab TID PO ; Start 08/15/16 at 21: 00 AYSHA VILLAREAL MD Aug 15, 2016 16:22
[2016-08-15 21:04] VITALS: BP 110/80; RESP 18
[2016-08-15] MEDS: LACTOBACILLUS CHEW TAB PO SCH (22:32)
[2016-08-15] MEDS: MIRTAZAPINE 15 MG TAB PO SCH (22:33)
[2016-08-15] MEDS: HYDROCODONE/APAP (5/325) TAB PO PRN (22:36)
[2016-08-16 05:11] LABS: ADD SCAN DIFF NO
[2016-08-16 05:24] LABS: BASOPHILS % 0.2 % (0.0-2.0); EOSINOPHILS % 0.5 % (0.0-7.0); LYMPHOCYTES % 24.4 % (15.0-51.0); MEAN CORPUSCULAR HEMOGLOBIN 29.2 pg (29.0-33.0); MEAN CORPUSCULAR HGB CONC 32.1 g/dl (32.0-37.0); MEAN CORPUSCULAR VOLUME 90.9 fl (82.0-101.0); MEAN PLATELET VOLUME 9.6 fl (7.4-10.4); MONOCYTE # 0.3 10^3/ul (0.3-0.9); MONOCYTES % 7.7 % (0.0-11.0); NEUTROPHIL # 2.7 10^3/ul (1.6-7.5); NEUTROPHILS % 65.3 % (39.0-77.0); PLATELET COUNT 164 10^3/UL (140-415); RED BLOOD COUNT 3.08 10^6/ul (4.20-5.40); RED CELL DISTRIBUTION WIDTH 19.1 % (11.5-14.5); WHITE BLOOD COUNT 4.2 10^3/ul (4.8-10.8)
[2016-08-16 05:35] LABS: POTASSIUM 3.7 mmol/L (3.5-5.1)
[2016-08-16 05:37] LABS: CREATININE 0.38 mg/dl (0.44-1.00)
[2016-08-16 05:38] LABS: CALCIUM 6.9 mg/dl (8.4-10.2)
[2016-08-16] MEDS: PANTOPRAZOLE (EC) 40 MG TAB PO SCH ×2 (06:26→18:01)
[2016-08-16] MEDS: DEXTROSE 5%-0.45% NACL 1,000 ML IV SCH ×2 (06:26→15:11)
[2016-08-16 08:17] VITALS: BP 115/84; RESP 20
[2016-08-16] MEDS: RIVAROXABAN 15 MG TABLET PO SCH ×2 (08:31→18:01)
[2016-08-16] MEDS: EFAVIRENZ 600 MG TAB PO SCH (08:50)
[2016-08-16] MEDS: FLUCONAZOLE 200 MG TAB PO SCH (08:50)
[2016-08-16] MEDS: EMTRICITABINE/TENOFOVIR TAB PO SCH (08:50)
[2016-08-16] MEDS: MESALAMINE (EC) 400 MG CAP PO SCH ×2 (08:51→20:47)
[2016-08-16] MEDS: LACTOBACILLUS CHEW TAB PO SCH ×3 (08:51→20:47)
[2016-08-16] MEDS: COLLAGENASE 30 GM TUBE TOP SCH (08:56)
--- NOTE | 2016-08-16 10:50 | PN ---
Date/Time of Note Date/Time of Note DATE: 08/16/16 TIME: 10:40 Assessment/Plan VTE Prophylaxis VTE Prophylaxis Intervention: other (Novel oral anticoagulant) Lines/Catheters [facility] P[facility] Line Central line still needed: Yes Urinary Cath still in place: Yes Reason Cath still needed: pres ulcer contaminated by urine Assessment/Plan Problems: (1) HIV disease Status: Chronic Comment: She is being followed by infectious disease and is on appropriate anti -retroviral therapy. [place] cell counts have come up. However the patient's status is somewhat poor due to the other overlying conditions see below (2) Chronic active hepatitis C Status: Chronic Comment: Noted not under treatment. (3) Protein calorie malnutrition Status: Chronic Comment: Attempting to give her as much nutritional support as possible we may be forced to use a feeding tube (4) Deep venous thrombosis of right upper extremity Status: Acute Comment: Consequence of PICC line. She is now on Xarelto therapeutics Qualifiers: Affected thrombotic vein of extremity: brachial Chronicity: acute Qualified Code: I82.621 - Acute deep vein thrombosis (DVT) of brachial vein of right upper extremity (5) Inocencia esophagitis Status: Chronic Comment: She remains on appropriate antifungal therapy as guided by infectious disease (6) Cirrhosis of liver Status: Chronic Comment: Remain a significant issue given all of the other situations. Qualifiers: Hepatic cirrhosis type: other cirrhosis Qualified Code: K74.69 - Other cirrhosis of liver (7) Altered mental status, unspecified Status: Acute Comment: Noted continue to follow Subjective 24 Hr Interval Summary Free Text/Dictation Patient sleeping in bed arousable. Constitutional: no complaints Respiratory: no complaints Cardiovascular: no complaints Exam/Review of Systems Vital Signs Vitals Vital Signs Date Time Temp Pulse Resp B/P Pulse Ox O2 Delivery O2 Flow Rate FiO2 08/16/16 08:17 97.8 100 20 115/84 94 Intake and Output 08/15/16 08/15/16 08/16/16 15:00 23:00 07:00 Intake Total 490 ml 1895 ml 990 ml Output Total 700 ml 2000 ml Balance 490 ml 1195 ml -1010 ml Exam Constitutional: alert Neck: non-tender, supple (No meningismus) Respiratory: clear to auscultation, normal air movement Cardiovascular: nl pulses, regular rate and rhythm Gastrointestinal: nl liver, spleen, non-tender, soft Results Result Diagram: 2/25/17 0434 08/16/16 0434 Results 24 hrs Laboratory Tests Test 08/15/16 13:45 08/16/16 04:34 Ammonia < 9 L Anion Gap 9 Basophils # 0.0 Basophils % 0.2 Blood Urea Nitrogen 16 Calcium Level 6.9 L Carbon Dioxide Level 26 Chloride Level 110 Creatinine 0.38 L Eosinophils # 0.0 Eosinophils % 0.5 Glucose Level 99 Hematocrit 28.0 L Hemoglobin 9.0 L Lymphocytes # 1.0 Lymphocytes % 24.4 Mean Corpuscular Hemoglobin 29.2 Mean Corpuscular Hemoglobin Concent 32.1 Mean Corpuscular Volume 90.9 Mean Platelet Volume 9.6 Monocytes # 0.3 Monocytes % 7.7 Neutrophils # 2.7 Neutrophils % 65.3 Nucleated Red Blood Cells # 0.0 Nucleated Red Blood Cells % 0.0 Platelet Count 164 Potassium Level 3.7 Red Blood Count 3.08 L Red Cell Distribution Width 19.1 H Sodium Level 141 White Blood Count 4.2 L Medications Medications Current Medications Dextrose/Sodium Chloride (D5-1/2ns) 1,000 ml @ 125 mls/hr Q8H IV Last administered on 08/16/16 06:26; Admin Dose 125 MLS/HR; Start 08/09/16 at 06:49 Ondansetron HCl (Zofran Inj) 4 mg Q6H PRN IV NAUSEA AND/OR VOMITING; Start at 07:00 Acetaminophen (Tylenol Supp) 650 mg Q6H PRN [place] PAIN LEVEL 1-3 OR FEVER; Start 08/09/16 at 07:00 Morphine Sulfate (morphine) 2 mg Q4H PRN IV PAIN LEVEL 7-10 Last administered on 08/15/16 00:31; Admin Dose 2 MG; Start 08/09/16 at 07:00 Mesalamine (Delzicol Dr) 800 mg BID PO Last administered on 08/16/16 08:51; Admin Dose 800 MG; Start 08/09/16 at 09:00 Efavirenz (Sustiva) 600 mg DAILY PO Last administered on 08/16/16 08:50; Admin Dose 600 MG; Start 08/12/16 at 14:00 Emtricitabine/ Tenofovir (Truvada) 1 tab DAILY PO Last administered on 08:50; Admin Dose 1 TAB; Start 08/12/16 at 14:00 Collagenase (Santyl) 1 applic DAILY TOP Last administered on 08/16/16 08:56; Admin Dose 1 APPLIC; Start 08/12/16 at 14:00 Al Hydrox/Mg Hydrox/Simethicone (Mag-Al Plus) 30 ml Q6H PRN PO GASTROINTESTINAL UPSET Last administered on 08/12/16 15:43; Admin Dose 30 ML; Start 08/12/16 at 15:30 Mirtazapine (Remeron) 15 mg HS PO Last administered on 08/15/16 22:33; Admin Dose 15 MG; Start 08/12/16 at 21:00 Acetaminophen/ Hydrocodone Bitart ([place] (5/325)) 1 tab Q6H PRN PO PAIN Last administered on 08/15/16 22:36; Admin Dose 1 TAB; Start 08/13/16 at 23:30 Fluconazole (Diflucan) 200 mg DAILY PO Last administered on 08/16/16 08:50; Admin Dose 200 MG; Start 08/15/16 at 09:00; Stop 08/23/16 at 12:00 Pantoprazole (Protonix Tab) 40 mg BID@06,18 PO Last administered on 08/16/16 06:26; Admin Dose 40 MG; Start 08/14/16 at 18:00 IV Flush (NS 10 ml) 10 ml PRN PRN IV IV PROTOCOL; Start 08/14/16 at 17:00 Lactobacillus Acidoph/Bulgaricus (Floranex) 1 tab TID PO Last administered on 08:51; Admin Dose 1 TAB; Start 08/15/16 at 21:00 SHELBY GILLIAM MD Aug 16, 2016 10:50
--- NOTE | 2016-08-16 12:15 | PN ---
Date/Time of Note Date/Time of Note DATE: 08/16/16 TIME: 12:11 Assessment/Plan VTE Prophylaxis VTE Prophylaxis Intervention: SCD's Lines/Catheters IV Catheter Type (from Nrs): PICC Line (IV access required) Central line still needed: Yes Urinary Cath still in place: Yes Reason Cath still needed: urinary retention Assessment/Plan Assessment/Plan Assessment Anemia: likely anemia of chronic disease, occult blood negative. Severe protein calorie malnutrition. * Passed swallow evaluation. Encourage p.o. intake Generalized weakness. Altered mental status. Inocencia esophagitis on last month's EGD biopsy HIV disease Recommendation: EGD only if clinically indicated i.e. need for therapeutic intervention Continue fluconazole for inocencia esophagitis on last month's biopsy Protonix 40 mg bid We will follow on a as needed basis and upon request Further recommendations depend on clinical course Exam/Review of Systems Vital Signs Vitals Vital Signs Date Time Temp Pulse Resp B/P Pulse Ox O2 Delivery O2 Flow Rate FiO2 08/16/16 08:17 97.8 100 20 115/84 94 Intake and Output 08/15/16 08/15/16 08/16/16 15:00 23:00 07:00 Intake Total 490 ml 1895 ml 990 ml Output Total 700 ml 2000 ml Balance 490 ml 1195 ml -1010 ml Exam Constitutional: frail Psych: confusion Head: atraumatic, normocephalic Eyes: EOMI, nl conjunctiva, nl lids, nl sclera ENMT: mucosa pink and moist, nl external ears & nose, nl lips & teeth, nl nasal mucosa & septum Neck: non-tender, supple Respiratory: clear to auscultation, normal air movement Cardiovascular: regular rate and rhythm Gastrointestinal: bowel sounds, soft, non-tender Results Result Diagram: 08/16/16 0434 08/16/16 0434 Results 24 hrs Laboratory Tests Test 08/15/16 13:45 08/16/16 04:34 Ammonia < 9 L Anion Gap 9 Basophils # 0.0 Basophils % 0.2 Blood Urea Nitrogen 16 Calcium Level 6.9 L Carbon Dioxide Level 26 Chloride Level 110 Creatinine 0.38 L Eosinophils # 0.0 Eosinophils % 0.5 Glucose Level 99 Hematocrit 28.0 L Hemoglobin 9.0 L Lymphocytes # 1.0 Lymphocytes % 24.4 Mean Corpuscular Hemoglobin 29.2 Mean Corpuscular Hemoglobin Concent 32.1 Mean Corpuscular Volume 90.9 Mean Platelet Volume 9.6 Monocytes # 0.3 Monocytes % 7.7 Neutrophils # 2.7 Neutrophils % 65.3 Nucleated Red Blood Cells # 0.0 Nucleated Red Blood Cells % 0.0 Platelet Count 164 Potassium Level 3.7 Red Blood Count 3.08 L Red Cell Distribution Width 19.1 H Sodium Level 141 White Blood Count 4.2 L Medications Medications Current Medications Dextrose/Sodium Chloride (D5-1/2ns) 1,000 ml @ 125 mls/hr Q8H IV Last administered on 08/16/16 06:26; Admin Dose 125 MLS/HR; Start 08/09/16 at 06:49 Ondansetron HCl (Zofran Inj) 4 mg Q6H PRN IV NAUSEA AND/OR VOMITING; Start at 07:00 Acetaminophen (Tylenol Supp) 650 mg Q6H PRN [place] PAIN LEVEL 1-3 OR FEVER; Start 08/09/16 at 07:00 Morphine Sulfate (morphine) 2 mg Q4H PRN IV PAIN LEVEL 7-10 Last administered on 08/15/16 00:31; Admin Dose 2 MG; Start 08/09/16 at 07:00 Mesalamine (Delzicol Dr) 800 mg BID PO Last administered on 08/16/16 08:51; Admin Dose 800 MG; Start 08/09/16 at 09:00 Efavirenz (Sustiva) 600 mg DAILY PO Last administered on 08/16/16 08:50; Admin Dose 600 MG; Start 08/12/16 at 14:00 Emtricitabine/ Tenofovir (Truvada) 1 tab DAILY PO Last administered on 08:50; Admin Dose 1 TAB; Start 08/12/16 at 14:00 Collagenase (Santyl) 1 applic DAILY TOP Last administered on 08/16/16 08:56; Admin Dose 1 APPLIC; Start 08/12/16 at 14:00 Al Hydrox/Mg Hydrox/Simethicone (Mag-Al Plus) 30 ml Q6H PRN PO GASTROINTESTINAL UPSET Last administered on 08/12/16 15:43; Admin Dose 30 ML; Start 08/12/16 at 15:30 Mirtazapine (Remeron) 15 mg HS PO Last administered on 08/15/16 22:33; Admin Dose 15 MG; Start 08/12/16 at 21:00 Acetaminophen/ Hydrocodone Bitart ([employer] (5/325)) 1 tab Q6H PRN PO PAIN Last administered on 08/15/16 22:36; Admin Dose 1 TAB; Start 08/13/16 at 23:30 Fluconazole (Diflucan) 200 mg DAILY PO Last administered on 08/16/16 08:50; Admin Dose 200 MG; Start 08/15/16 at 09:00; Stop 08/23/16 at 12:00 Pantoprazole (Protonix Tab) 40 mg BID@06,18 PO Last administered on 08/16/16 06:26; Admin Dose 40 MG; Start 08/14/16 at 18:00 IV Flush (NS 10 ml) 10 ml PRN PRN IV IV PROTOCOL; Start 08/14/16 at 17:00 Lactobacillus Acidoph/Bulgaricus (Floranex) 1 tab TID PO Last administered on 08:51; Admin Dose 1 TAB; Start 08/15/16 at 21:00 LM LAMB MD Aug 16, 2016 12:15
--- NOTE | 2016-08-16 14:28 | CONS ---
Date/Time of Note Date/Time of Note DATE: 08/16/16 TIME: 14:27 Assessment/Plan Assessment/Plan Chief Complaint/Hosp Course ID PROGRESS NOTE CURRENT ABX=> ANTIMICROBIALS: 1. s/p Cefepime => DC'd 08/15 2. Fluconazole. 3. ARV MEDS: Truvada + Sustiva 24H INTERVAL SUMMARY * Passed swallow evaluation=> Notes to encourage PO intake * Afebrile, VSS, NAD * Lethargic PHYSICAL EXAMINATION: GENERAL: VSS, NAD, cachexic F HEENT: Unremarkable -- NECK: Supple, trachea midline. CHEST: Rise symmetrical, without dyspnea on observation HEART: Pulse RRR ABDOMEN: Soft, benign EXTREMITIES: Warm SKIN: Decubs = see photos ID ASSESSMENT 41 yo F admit with: 1. HIV(+)F w/HCV(+)Co-infection w/hx of noncompliance with ARV meds * CD4# 06/25/2016 @ 903 => now 08/12/16 @ 392# 2. Diarrhea -> hx of IBS ? GI on case=> Cefepime DC'd 2. Multiple infected wounds w/sacral STG IV * WOUND CULTURE Final Organism 1 CITROBACTER BRAAKII QUANTITY SCANT GROWTH Organism 2 PROTEUS MIRABILIS 3. Severe cachexia w/severe protein calorie malnutrition. 4. History of Inocencia esophagitis w/odynophagia 5. Anasarca w/ascites + bilateral pleural effusions, left greater than right = Exacerbated by low albumin * Last CXR => " These are markedly increased and worse when compared to the prior study." 6. Possible CAP superimposed on bilateral effusions per CT 7. Hepatitis C -> mild fatty liver on CT, possible cirrhosis w/ascites and coagulopathy 8. Hx of GIB resulting in prior admission for Respiratory failure and hemorrhagic shock. 9. Thrombus in the right axillary, cephalic, basilic, and brachial veins. * RUEXT PICC removed 10. (+)Tobaccoism 11. Hx of substance abuse w/(-)Urine drug tox screen 12. Hx of Syphilis (-)MRSA Nares INVASIVES: PICC (LUEXT 08/14/16) ABX ALLERGY: KNDA CURRENT ABX: 1. s/p Cefepime => DC'd 08/15 2. Fluconazole. 3. ARV MEDS: Truvada + Sustiva ID RECOMMENDATIONS 1. Continue current ABX 2. Local wound care 3. Nutrition supplementation 4. Further recs per GI . Problems: Consultation Date/Type/Reason Admit Date/Time Aug 09, 2016 at 01:59 Initial Consult Date 08/09/16 Type of Consultation: ID Exam/Review of Systems Vital Signs Vitals Vital Signs Date Time Temp Pulse Resp B/P Pulse Ox O2 Delivery O2 Flow Rate FiO2 08/16/16 08:17 97.8 100 20 115/84 94 Intake and Output 08/15/16 08/15/16 08/16/16 15:00 23:00 07:00 Intake Total 490 ml 1895 ml 990 ml Output Total 700 ml 2000 ml Balance 490 ml 1195 ml -1010 ml Results Result Diagram: 08/16/16 0434 08/16/16 0434 Results 24 hrs Laboratory Tests Test 08/16/16 04:34 08/16/16 12:06 Anion Gap 9 Basophils # 0.0 Basophils % 0.2 Blood Urea Nitrogen 16 Calcium Level 6.9 L Carbon Dioxide Level 26 Chloride Level 110 Creatinine 0.38 L Eosinophils # 0.0 Eosinophils % 0.5 Glucose Level 99 Hematocrit 28.0 L Hemoglobin 9.0 L Lymphocytes # 1.0 Lymphocytes % 24.4 Mean Corpuscular Hemoglobin 29.2 Mean Corpuscular Hemoglobin Concent 32.1 Mean Corpuscular Volume 90.9 Mean Platelet Volume 9.6 Monocytes # 0.3 Monocytes % 7.7 Neutrophils # 2.7 Neutrophils % 65.3 Nucleated Red Blood Cells # 0.0 Nucleated Red Blood Cells % 0.0 Platelet Count 164 Potassium Level 3.7 Red Blood Count 3.08 L Red Cell Distribution Width 19.1 H Sodium Level 141 White Blood Count 4.2 L Vitamin B12 Level 882 Medications Medications Current Medications Dextrose/Sodium Chloride (D5-1/2ns) 1,000 ml @ 125 mls/hr Q8H IV Last administered on 08/16/16t 06:26; Admin Dose 125 MLS/HR; Start 08/09/16 at 06:49 Ondansetron HCl (Zofran Inj) 4 mg Q6H PRN IV NAUSEA AND/OR VOMITING; Start at 07:00 Acetaminophen (Tylenol Supp) 650 mg Q6H PRN [place] PAIN LEVEL 1-3 OR FEVER; Start 08/09/16 at 07:00 Morphine Sulfate (morphine) 2 mg Q4H PRN IV PAIN LEVEL 7-10 Last administered on 08/15/16 00:31; Admin Dose 2 MG; Start 08/09/16 at 07:00 Mesalamine (Delzicol Dr) 800 mg BID PO Last administered on 08/16/16 08:51; Admin Dose 800 MG; Start 08/09/16 at 09:00 Efavirenz (Sustiva) 600 mg DAILY PO Last administered on 08/16/16 08:50; Admin Dose 600 MG; Start 08/12/16 at 14:00 Emtricitabine/ Tenofovir (Truvada) 1 tab DAILY PO Last administered on 08:50; Admin Dose 1 TAB; Start 08/12/16 at 14:00 Collagenase (Santyl) 1 applic DAILY TOP Last administered on 08/16/16 08:56; Admin Dose 1 APPLIC; Start 08/12/16 at 14:00 Al Hydrox/Mg Hydrox/Simethicone (Mag-Al Plus) 30 ml Q6H PRN PO GASTROINTESTINAL UPSET Last administered on 08/12/16 15:43; Admin Dose 30 ML; Start 08/12/16 at 15:30 Mirtazapine (Remeron) 15 mg HS PO Last administered on 08/15/16 22:33; Admin Dose 15 MG; Start 08/12/16 at 21:00 Acetaminophen/ Hydrocodone Bitart ([place] (5/325)) 1 tab Q6H PRN PO PAIN Last administered on 08/15/16 22:36; Admin Dose 1 TAB; Start 08/13/16 at 23:30 Fluconazole (Diflucan) 200 mg DAILY PO Last administered on 08/16/16 08:50; Admin Dose 200 MG; Start 08/15/16 at 09:00; Stop 08/23/16 at 12:00 Pantoprazole (Protonix Tab) 40 mg BID@,18 PO Last administered on 08/16/16 06:26; Admin Dose 40 MG; Start 08/14/16 at 18:00 IV Flush (NS 10 ml) 10 ml PRN PRN IV IV PROTOCOL; Start 08/14/16 at 17:00 Lactobacillus Acidoph/Bulgaricus (Floranex) 1 tab TID PO Last administered on 2 /25/17at 13:51; Admin Dose 1 TAB; Start 08/15/16 at 21:00 NILDA JOSE NP Aug 16, 2016 14:28
[2016-08-16] MEDS: MIRTAZAPINE 15 MG TAB PO SCH (20:47)
[2016-08-16 21:29] VITALS: BP 126/85; RESP 18
[2016-08-17] MEDS: DEXTROSE 5%-0.45% NACL 1,000 ML IV SCH ×3 (01:03→17:42)
[2016-08-17] MEDS: PANTOPRAZOLE (EC) 40 MG TAB PO SCH ×2 (05:18→17:32)
[2016-08-17] MEDS: RIVAROXABAN 15 MG TABLET PO SCH ×2 (08:37→17:32)
[2016-08-17 08:55] VITALS: BP 116/82; RESP 16
[2016-08-17] MEDS: MESALAMINE (EC) 400 MG CAP PO SCH ×2 (09:36→20:49)
[2016-08-17] MEDS: LACTOBACILLUS CHEW TAB PO SCH ×3 (09:37→20:49)
[2016-08-17] MEDS: EFAVIRENZ 600 MG TAB PO SCH (09:37)
[2016-08-17] MEDS: EMTRICITABINE/TENOFOVIR TAB PO SCH (09:37)
[2016-08-17] MEDS: FLUCONAZOLE 200 MG TAB PO SCH (09:37)
[2016-08-17] MEDS: COLLAGENASE 30 GM TUBE TOP SCH (09:41)
--- NOTE | 2016-08-17 10:38 | PN ---
Date/Time of Note Date/Time of Note DATE: 08/17/16 TIME: 10:33 Assessment/Plan VTE Prophylaxis VTE Prophylaxis Intervention: other (Novel oral anticoagulant) Lines/Catheters IV C[facility] Type (from [facility]): PICC Line Central line still needed: Yes Urinary Cath still in place: Yes Reason Cath still needed: pres ulcer contaminated by urine Assessment/Plan Problems: (1) Cirrhosis of liver Status: Chronic Comment: At this time compensated. I do not believe that this is the cause of her mental status Qualifiers: Hepatic cirrhosis type: other cirrhosis Qualified Code: K74.69 - Other cirrhosis of liver (2) Deep venous thrombosis of right upper extremity Status: Acute Comment: On novel oral anticoagulant therapy Qualifiers: Affected thrombotic vein of extremity: brachial Chronicity: acute Qualified Code: I82.621 - Acute deep vein thrombosis (DVT) of brachial vein of right upper extremity (3) Chronic active hepatitis C Status: Chronic Comment: Noted (4) HIV disease Status: Chronic Comment: She is on highly active antiretroviral therapy (5) Protein calorie malnutrition Status: Chronic Comment: She is already on mirtazapine I will add in Megace to see if we can stimulate her along. I do not believe the usage of Marinol will be helpful in the setting. Overall the patient's status is poor and given how she came into the hospital the idea of discharging her home to her home environment does not strike me as a recipe for success. Will need a family conference (6) Inocencia esophagitis Status: Chronic Comment: On therapeutic Subjective 24 Hr Interval Summary Free Text/Dictation Patient open eyes and will say 2 or 3 words but otherwise largely is not communicating Exam/Review of Systems Vital Signs Vitals Vital Signs Date Time Temp Pulse Resp B/P Pulse Ox O2 Delivery O2 Flow Rate FiO2 08/17/16 08:55 97.8 108 16 116/82 100 Intake and Output 08/16/16 08/16/16 08/17/16 15:00 23:00 07:00 Intake Total 2215 ml 1365 ml Output Total 800 ml 1500 ml Balance 1415 ml -135 ml Exam Arousable oriented Constitutional: frail (Frail and obviously malnourished) Neck: non-tender, supple Respiratory: clear to auscultation, normal air movement Cardiovascular: nl pulses, regular rate and rhythm Results Result Diagram: 08/16/16 0434 08/16/16 0434 Results 24 hrs Laboratory Tests Test 08/16/16 12:06 08/16/16 14:00 Vitamin B12 Level 882 Stool Occult Blood NEGATIVE Medications Medications Current Medications Dextrose/Sodium Chloride (D5-1/2ns) 1,000 ml @ 125 mls/hr Q8H IV Last administered on 08/17/16 09:36; Admin Dose 125 MLS/HR; Start 08/09/16 at 06:49 Ondansetron HCl (Zofran Inj) 4 mg Q6H PRN IV NAUSEA AND/OR VOMITING; Start at 07:00 Acetaminophen (Tylenol Supp) 650 mg Q6H PRN [place] PAIN LEVEL 1-3 OR FEVER; Start 08/09/16 at 07:00 Morphine Sulfate (morphine) 2 mg Q4H PRN IV PAIN LEVEL 7-10 Last administered on 08/15/16 00:31; Admin Dose 2 MG; Start 08/09/16 at 07:00 Mesalamine (Delzicol Dr) 800 mg BID PO Last administered on 08/17/16 09:36; Admin Dose 800 MG; Start 08/09/16 at 09:00 Efavirenz (Sustiva) 600 mg DAILY PO Last administered on 08/17/16 09:37; Admin Dose 600 MG; Start 08/12/16 at 14:00 Emtricitabine/ Tenofovir (Truvada) 1 tab DAILY PO Last administered on 09:37; Admin Dose 1 TAB; Start 08/12/16 at 14:00 Collagenase (Santyl) 1 applic DAILY TOP Last administered on 08/17/16 09:41; Admin Dose 1 APPLIC; Start 08/12/16 at 14:00 Al Hydrox/Mg Hydrox/Simethicone (Mag-Al Plus) 30 ml Q6H PRN PO GASTROINTESTINAL UPSET Last administered on 08/12/16 15:43; Admin Dose 30 ML; Start 08/12/16 at 15:30 Mirtazapine (Remeron) 15 mg HS PO Last administered on 08/16/16 20:47; Admin Dose 15 MG; Start 08/12/16 at 21:00 Acetaminophen/ Hydrocodone Bitart ([place] (5/325)) 1 tab Q6H PRN PO PAIN Last administered on 2/24/17at 22:36; Admin Dose 1 TAB; Start 08/13/16 at 23:30 Fluconazole (Diflucan) 200 mg DAILY PO Last administered on 08/17/16 09:37; Admin Dose 200 MG; Start 08/15/16 at 09:00; Stop 08/23/16 at 12:00 Pantoprazole (Protonix Tab) 40 mg BID@06,18 PO Last administered on 08/17/16 05:18; Admin Dose 40 MG; Start 08/14/16 at 18:00 IV Flush (NS 10 ml) 10 ml PRN PRN IV IV PROTOCOL; Start 08/14/16 at 17:00 Lactobacillus Acidoph/Bulgaricus (Floranex) 1 tab TID PO Last administered on 09:37; Admin Dose 1 TAB; Start 08/15/16 at 21:00 SHELBY GILLIAM MD Aug 17, 2016 10:38
[2016-08-17] MEDS: MEGESTROL (40 MG/ML) 10ML CUP PO SCH ×2 (12:48→20:49)
--- NOTE | 2016-08-17 19:55 | CONS ---
Date/Time of Note Date/Time of Note DATE: 08/17/16 TIME: 19:49 Assessment/Plan Assessment/Plan Chief Complaint/Hosp Course ID PROGRESS NOTE CURRENT ABX=> ANTIMICROBIALS: 1. s/p Cefepime => DC'd 08/15 2. Fluconazole. 3. ARV MEDS: Truvada + Sustiva 24H INTERVAL SUMMARY * Remains lethargic/fatigued == opens eyes, noncommunicative == extreme frailty/ debility * Notes reviewed: No family available - has a "father figure friend" CM left message for family meeting * Passed swallow evaluation=> Notes to encourage PO intake * Afebrile, VSS, NAD PHYSICAL EXAMINATION: GENERAL: VSS, NAD, cachexic F HEENT: Unremarkable -- NECK: Supple, trachea midline. CHEST: Rise symmetrical, without dyspnea on observation HEART: Pulse RRR ABDOMEN: Soft, benign EXTREMITIES: Warm SKIN: Decubs = see photos ID ASSESSMENT 41 yo F admit with: 1. HIV(+)F w/HCV(+)Co-infection w/hx of noncompliance with ARV meds * CD4# 06/25/2016 @ 903 => now 08/12/16 @ 392# 2. Diarrhea -> hx of IBS ? GI on case=> Cefepime DC'd 2. Multiple infected wounds w/sacral STG IV * WOUND CULTURE Final Organism 1 CITROBACTER BRAAKII QUANTITY SCANT GROWTH Organism 2 PROTEUS MIRABILIS 3. Severe cachexia w/severe protein calorie malnutrition. 4. History of Inocencia esophagitis w/odynophagia 5. Anasarca w/ascites + bilateral pleural effusions, left greater than right = Exacerbated by low albumin * Last CXR => " These are markedly increased and worse when compared to the prior study." 6. Possible CAP superimposed on bilateral effusions per CT 7. Hepatitis C -> mild fatty liver on CT, possible cirrhosis w/ascites and coagulopathy 8. Hx of GIB resulting in prior admission for Respiratory failure and hemorrhagic shock. 9. Thrombus in the right axillary, cephalic, basilic, and brachial veins. * RUEXT PICC removed 10. (+)Tobaccoism 11. Hx of substance abuse w/(-)Urine drug tox screen 12. Hx of Syphilis (-)MRSA Nares INVASIVES: PICC (LUEXT 08/14/16) ABX ALLERGY: KNDA CURRENT ABX: 1. s/p Cefepime => DC'd 08/15 2. Fluconazole. 3. ARV MEDS: Truvada + Sustiva ID RECOMMENDATIONS 1. Continue current ABX & local wound care 2. Hx of syphilis - recheck RPR - r/o Latent vs neurosyphilis if still (+) QUANT 3. Nutrition supplementation 4. Further recs per GI 5. CM working on contact w/"Father Figure Friend" for family mtg discussion on disposition . Problems: Consultation Date/Type/Reason Admit Date/Time Aug 09, 2016 at 01:59 Initial Consult Date 08/09/16 Type of Consultation: ID Exam/Review of Systems Vital Signs Vitals Vital Signs Date Time Temp Pulse Resp B/P Pulse Ox O2 Delivery O2 Flow Rate FiO2 08/17/16 08:55 97.8 108 16 116/82 100 Intake and Output 08/16/16 08/16/16 08/17/16 15:00 23:00 07:00 Intake Total 2215 ml 1365 ml Output Total 800 ml 1500 ml Balance 1415 ml -135 ml Results Result Diagram: 08/16/16 0434 08/16/16 0434 Medications Medications Current Medications Dextrose/Sodium Chloride (D5-1/2ns) 1,000 ml @ 125 mls/hr Q8H IV Last administered on 08/17/16 17:42; Admin Dose 125 MLS/HR; Start 08/09/16 at 06:49 Ondansetron HCl (Zofran Inj) 4 mg Q6H PRN IV NAUSEA AND/OR VOMITING; Start at 07:00 Acetaminophen (Tylenol Supp) 650 mg Q6H PRN [place] PAIN LEVEL 1-3 OR FEVER; Start 08/09/16 at 07:00 Morphine Sulfate (morphine) 2 mg Q4H PRN IV PAIN LEVEL 7-10 Last administered on 08/15/16 00:31; Admin Dose 2 MG; Start 08/09/16 at 07:00 Mesalamine (Delzicol Dr) 800 mg BID PO Last administered on 08/17/16 09:36; Admin Dose 800 MG; Start 08/09/16 at 09:00 Efavirenz (Sustiva) 600 mg DAILY PO Last administered on 08/17/16 09:37; Admin Dose 600 MG; Start 08/12/16 at 14:00 Emtricitabine/ Tenofovir (Truvada) 1 tab DAILY PO Last administered on 09:37; Admin Dose 1 TAB; Start 08/12/16 at 14:00 Collagenase (Santyl) 1 applic DAILY TOP Last administered on 08/17/16 09:41; Admin Dose 1 APPLIC; Start 08/12/16 at 14:00 Al Hydrox/Mg Hydrox/Simethicone (Mag-Al Plus) 30 ml Q6H PRN PO GASTROINTESTINAL UPSET Last administered on 08/12/16 15:43; Admin Dose 30 ML; Start 08/12/16 at 15:30 Mirtazapine (Remeron) 15 mg HS PO Last administered on 08/16/16 20:47; Admin Dose 15 MG; Start 08/12/16 at 21:00 Acetaminophen/ Hydrocodone Bitart ([place] (5/325)) 1 tab Q6H PRN PO PAIN Last administered on 08/15/16 22:36; Admin Dose 1 TAB; Start 08/13/16 at 23:30 Fluconazole (Diflucan) 200 mg DAILY PO Last administered on 08/17/16 09:37; Admin Dose 200 MG; Start 08/15/16 at 09:00; Stop 08/23/16 at 12:00 Pantoprazole (Protonix Tab) 40 mg BID@,18 PO Last administered on 08/17/16 17:32; Admin Dose 40 MG; Start 08/14/16 at 18:00 IV Flush (NS 10 ml) 10 ml PRN PRN IV IV PROTOCOL; Start 08/14/16 at 17:00 Lactobacillus Acidoph/Bulgaricus (Floranex) 1 tab TID PO Last administered on 12:48; Admin Dose 1 TAB; Start 08/15/16 at 21:00 Megestrol Acetate (Megace Susp) 400 mg BID PO Last administered on 08/17/16 12 :48; Admin Dose 400 MG; Start 08/17/16 at 10:30; Stop 09/16/16 at 10:29 NILDA JOSE NP Aug 17, 2016 19:55
[2016-08-17 20:00] VITALS: BP 113/84; RESP 18
[2016-08-17] MEDS: MIRTAZAPINE 15 MG TAB PO SCH (20:49)
[2016-08-18] MEDS: DEXTROSE 5%-0.45% NACL 1,000 ML IV SCH ×4 (02:54→17:42)
[2016-08-18] MEDS: PANTOPRAZOLE (EC) 40 MG TAB PO SCH ×2 (05:25→17:42)
[2016-08-18 08:15] VITALS: BP 127/91; RESP 18
[2016-08-18] MEDS: EFAVIRENZ 600 MG TAB PO SCH (08:28)
[2016-08-18] MEDS: FLUCONAZOLE 200 MG TAB PO SCH (08:28)
[2016-08-18] MEDS: EMTRICITABINE/TENOFOVIR TAB PO SCH (08:28)
[2016-08-18] MEDS: LACTOBACILLUS CHEW TAB PO SCH ×3 (08:28→20:34)
[2016-08-18] MEDS: MESALAMINE (EC) 400 MG CAP PO SCH ×2 (08:28→20:34)
[2016-08-18] MEDS: MEGESTROL (40 MG/ML) 10ML CUP PO SCH ×2 (08:28→20:34)
[2016-08-18] MEDS: RIVAROXABAN 15 MG TABLET PO SCH ×2 (08:28→17:42)
[2016-08-18] MEDS: COLLAGENASE 30 GM TUBE TOP SCH (08:29)
[2016-08-18] MEDS ORDERED: LEVOFLOXACIN 500 MG TAB PO ONE (14:00)
[2016-08-18] MEDS: LEVOFLOXACIN 500 MG TAB PO SCH (14:05)
--- NOTE | 2016-08-18 14:57 | PN ---
Date/Time of Note Date/Time of Note DATE: 08/18/16 TIME: 14:55 Assessment/Plan VTE Prophylaxis VTE Prophylaxis Intervention: SCD's Lines/Catheters IV Catheter Type (from Nrs): PICC Line Central line still needed: Yes Urinary Cath still in place: Yes Reason Cath still needed: other (indicate) Assessment/Plan Assessment/Plan 1. Inocencia esophagitis, diagnosed from biopsy via EGD, on diflucan 2. Pneumonia, community acquired, on cefepime 3. Multiple decubitus ulcers, wound care 4. Symptomatic anemia: likely anemia of chronic disease, occult blood negative, no endoscopy at this time per GI 5. Severe protein calorie malnutrition. Past swallow evaluation. Encourage p.o. intake 6. Human immunodeficiency virus positive with noncompliance with her HIV medications, CD4 count on 06/25/2016 was 903, follow up with ID 7. Right axillary, cephalic, basilic, and brachial venous thrombus from PICC line, PICC line removed 8. SCD 9. Generalized weakness, follow up with PT Subjective 24 Hr Interval Summary Free Text/Dictation weak. afebrile. no active bleeding Exam/Review of Systems Vital Signs Vitals Vital Signs Date Time Temp Pulse Resp B/P Pulse Ox O2 Delivery O2 Flow Rate FiO2 08/18/16 08:15 97.4 102 18 127/91 98 Intake and Output 08/17/16 08/17/16 08/18/16 15:00 23:00 07:00 Intake Total 1725 ml 1490 ml Output Total 1400 ml 1100 ml Balance 325 ml 390 ml Exam Constitutional: alert, oriented Psych: no complaints Head: atraumatic, normocephalic Eyes: EOMI, PERRL, nl conjunctiva, nl lids ENMT: nl external ears & nose, nl lips & teeth, nl nasal mucosa & septum Neck: non-tender, supple Respiratory: clear to auscultation, normal air movement, No congested cough, No crackles/rales, No diminished breath sounds, No intercostal retraction, No labored breathing, No other, No respirations, No tactile fremitus, No wheezing Cardiovascular: nl pulses, regular rate and rhythm, No S3, No S4, No bruits, No diastolic murmur, No edema, No gallop, No irregular rhythm, No jugular venous distention (JVD), No murmurs/extra sounds, No other, No rub, No systolic murmur Gastrointestinal: nl liver, spleen, non-tender, soft, No ascites, No bowel sounds, No distended, No firm, No hepatomegaly, No mass , No other, No rebound or guarding, No splenomegaly, No surgical scars, No tender Musculoskeletal: nl extremities to inspection Extremities: normal pulses, No calf tenderness, No clubbing, No cyanosis, No edema, No palpable cord, No pitting pedal edema, No tenderness Neurological: QUALITY MANAGEMENT COORDINATOR II-XII intact, nl mental status, nl speech, nl strength Results Result Diagram: 08/16/1643308/16/16433 Medications Medications Current Medications Dextrose/Sodium Chloride (D5-1/2ns) 1,000 ml @ 125 mls/hr Q8H IV Last administered on 08/18/16 08:28; Admin Dose 125 MLS/HR; Start 08/09/16 at 06:49 Ondansetron HCl (Zofran Inj) 4 mg Q6H PRN IV NAUSEA AND/OR VOMITING; Start at 07:00 Acetaminophen (Tylenol Supp) 650 mg Q6H PRN [place] PAIN LEVEL 1-3 OR FEVER; Start 08/09/16 at 07:00 Morphine Sulfate (morphine) 2 mg Q4H PRN IV PAIN LEVEL 7-10 Last administered on 08/15/16 00:31; Admin Dose 2 MG; Start 08/09/16 at 07:00 Mesalamine (Delzicol Dr) 800 mg BID PO Last administered on 08/18/16 08:28; Admin Dose 800 MG; Start 08/09/16 at 09:00 Efavirenz (Sustiva) 600 mg DAILY PO Last administered on 08/18/16 08:28; Admin Dose 600 MG; Start 08/12/16 at 14:00 Emtricitabine/ Tenofovir (Truvada) 1 tab DAILY PO Last administered on 08:28; Admin Dose 1 TAB; Start 08/12/16 at 14:00 Collagenase (Santyl) 1 applic DAILY TOP Last administered on 08/18/16 08:29; Admin Dose 1 APPLIC; Start 08/12/16 at 14:00 Al Hydrox/Mg Hydrox/Simethicone (Mag-Al Plus) 30 ml Q6H PRN PO GASTROINTESTINAL UPSET Last administered on 08/12/16 15:43; Admin Dose 30 ML; Start 08/12/16 at 15:30 Mirtazapine (Remeron) 15 mg HS PO Last administered on 08/17/16 20:49; Admin Dose 15 MG; Start 08/12/16 at 21:00 Acetaminophen/ Hydrocodone Bitart ([place] (5/325)) 1 tab Q6H PRN PO PAIN Last administered on 08/15/16 22:36; Admin Dose 1 TAB; Start 08/13/16 at 23:30 Fluconazole (Diflucan) 200 mg DAILY PO Last administered on 08/18/16 08:28; Admin Dose 200 MG; Start 08/15/16 at 09:00; Stop 08/23/16 at 12:00 Pantoprazole (Protonix Tab) 40 mg BID@06,18 PO Last administered on 08/18/16 05:25; Admin Dose 40 MG; Start 08/14/16 at 18:00 IV Flush (NS 10 ml) 10 ml PRN PRN IV IV PROTOCOL; Start 08/14/16 at 17:00 Lactobacillus Acidoph/Bulgaricus (Floranex) 1 tab TID PO Last administered on 14:05; Admin Dose 1 TAB; Start 08/15/16 at 21:00 Megestrol Acetate (Megace Susp) 400 mg BID PO Last administered on 08/18/16 08 :28; Admin Dose 400 MG; Start 08/17/16 at 10:30; Stop 09/16/16 at 10:29 Levofloxacin (Levaquin) 500 mg DAILY@06 PO Last administered on 08/18/16 14:05 ; Admin Dose 500 MG; Start 08/18/16 at 14:00 AYSHA VILLAREAL MD Aug 18, 2016 14:57
--- NOTE | 2016-08-18 16:22 | PN ---
DATE: 08/18/2016 SUBJECTIVE: This is an infectious disease progress note. No events overnight. The patient is very weak. She refused breakfast this morning. She is lying comfortably in bed, arousable and follows commands. No fevers. No labs this morning. Sacral wound grew citrobacter and Proteus mirabilis sanchez sceptible to Levaquin. ANTIMICROBIALS: 1. The patient is on Diflucan. 2. Sustiva. 3. Truvada. PHYSICAL EXAMINATION: GENERAL: This is a cachectic, ill-appearing, middle-aged [place]-speaking woman who is awake in no distress. HEENT: Head atraumatic, normocephalic. Sclerae anicteric. Buccal mucosa dry. NECK: Supple, trachea midline. CHEST: Rise symmetrical. Breath sounds diminished to bases. HEART: S1, S2. ABDOMEN: Soft. Bowel tones present. EXTREMITIES: With bilateral hand edema and cyanosis of the fingers and wrists. SKIN: With severe anasarca. PICC line left upper extremity placed on 08/14/2016. ASSESSMENT 1. Human immunodeficiency virus positive with a history of noncompliance with human immunodeficienc y virus medications. A CD4 count 392. 2. 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 Cultures growing citrobacter and Proteu s mirabilis. 3. Cachexia. 4. Inocencia esophagitis. 5. Anasarca. 6. Hepatitis C virus. 7. Right upper extremity thrombosis, status post PICC line removed. 8. History of substance abuse. PLAN: The patient remains stable. We will start her on Levaquin to cover wounds. Continue other a ntimicrobials. Keep right upper extremity elevated. Continue local wound care. Follow recommendat ions of consultants. Dictated By: AGUILA BURGOS SAP DATA ARCHITECT for GINNY PIERSON/SHILPA Conf#: [id number] DID#: [id number]
[2016-08-18] MEDS: MIRTAZAPINE 15 MG TAB PO SCH (20:34)
[2016-08-19] MEDS: DEXTROSE 5%-0.45% NACL 1,000 ML IV SCH ×3 (02:39→21:05)
[2016-08-19] MEDS: PANTOPRAZOLE (EC) 40 MG TAB PO SCH ×2 (05:16→17:50)
[2016-08-19] MEDS: LEVOFLOXACIN 500 MG TAB PO SCH (05:16)
[2016-08-19 07:53] VITALS: BP 107/81; RESP 18
[2016-08-19 07:58] VITALS: BP 147/92; RESP 18
[2016-08-19] MEDS: FLUCONAZOLE 200 MG TAB PO SCH (09:59)
[2016-08-19] MEDS: EMTRICITABINE/TENOFOVIR TAB PO SCH (09:59)
[2016-08-19] MEDS: RIVAROXABAN 15 MG TABLET PO SCH ×2 (09:59→17:50)
[2016-08-19] MEDS: EFAVIRENZ 600 MG TAB PO SCH (09:59)
[2016-08-19] MEDS: LACTOBACILLUS CHEW TAB PO SCH ×3 (10:02→21:03)
[2016-08-19] MEDS: MEGESTROL (40 MG/ML) 10ML CUP PO SCH ×2 (10:02→21:03)
[2016-08-19] MEDS: MESALAMINE (EC) 400 MG CAP PO SCH ×2 (10:02→21:03)
[2016-08-19] MEDS: COLLAGENASE 30 GM TUBE TOP SCH (10:03)
--- NOTE | 2016-08-19 13:11 | CONS ---
Date/Time of Note Date/Time of Note DATE: 08/19/16 TIME: 13:08 Assessment/Plan Assessment/Plan Chief Complaint/Hosp Course SUBJECTIVE: No events overnight. The patient is sleeping. No fevers. Poor po intake per report ANTIMICROBIALS: 1. Diflucan. 2. Sustiva. 3. Truvada. 4. Levaquin PHYSICAL EXAMINATION: GENERAL: This is a cachectic, ill-appearing, middle-aged Swazi-speaking woman who is awake in no distress. HEENT: Head atraumatic, normocephalic. Sclerae anicteric. Buccal mucosa dry. NECK: Supple, trachea midline. CHEST: Rise symmetrical. Breath sounds diminished to bases. HEART: S1, S2. ABDOMEN: Soft. Bowel tones present. EXTREMITIES: With bilateral hand edema and cyanosis of the fingers and wrists. SKIN: With severe anasarca. PICC line left upper extremity placed on 2016. ASSESSMENT 1. Human immunodeficiency virus positive with a history of noncompliance with human immunodeficiency virus medications. A CD4 count 392. 2. 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 Cultures growing citrobacter and Proteus mirabilis. 3. Cachexia. 4. Inocencia esophagitis. 5. Anasarca. 6. Hepatitis C virus. 7. Right upper extremity thrombosis, status post PICC line removed. 8. History of substance abuse. PLAN: The patient remains unchanged. Continue MAYERS/ antimicrobials and local wound care. Optimize nutrition. Follow recommendations of consultants. [facility] staff Problems: Consultation Date/Type/Reason Admit Date/Time Aug 09, 2016 at 01:59 Initial Consult Date 08/09/16 Type of Consultation: ID Exam/Review of Systems Vital Signs Vitals Vital Signs Date Time Temp Pulse Resp B/P Pulse Ox O2 Delivery O2 Flow Rate FiO2 08/19/16 07:58 97.6 104 18 147/92 92 Intake and Output 08/18/16 08/18/16 08/19/16 15:00 23:00 07:00 Intake Total 750 ml 440 ml 1430 ml Output Total 1000 ml 400 ml Balance 750 ml -560 ml 1030 ml Results Result Diagram: 08/16/16 0434 08/16/16 0434 Medications Medications Current Medications Dextrose/Sodium Chloride (D5-1/2ns) 1,000 ml @ 125 mls/hr Q8H IV Last administered on 08/19/16 12:48; Admin Dose 125 MLS/HR; Start 08/09/16 at 06:49 Ondansetron HCl (Zofran Inj) 4 mg Q6H PRN IV NAUSEA AND/OR VOMITING; Start at 07:00 Acetaminophen (Tylenol Supp) 650 mg Q6H PRN [place] PAIN LEVEL 1-3 OR FEVER; Start 08/09/16 at 07:00 Morphine Sulfate (morphine) 2 mg Q4H PRN IV PAIN LEVEL 7-10 Last administered on 08/15/16 00:31; Admin Dose 2 MG; Start 08/09/16 at 07:00 Mesalamine (Delzicol Dr) 800 mg BID PO Last administered on 08/19/16 10:02; Admin Dose 800 MG; Start 08/09/16 at 09:00 Efavirenz (Sustiva) 600 mg DAILY PO Last administered on 08/19/16 09:59; Admin Dose 600 MG; Start 08/12/16 at 14:00 Emtricitabine/ Tenofovir (Truvada) 1 tab DAILY PO Last administered on 09:59; Admin Dose 1 TAB; Start 08/12/16 at 14:00 Collagenase (Santyl) 1 applic DAILY TOP Last administered on 08/19/16 10:03; Admin Dose 1 APPLIC; Start 08/12/16 at 14:00 Al Hydrox/Mg Hydrox/Simethicone (Mag-Al Plus) 30 ml Q6H PRN PO GASTROINTESTINAL UPSET Last administered on 08/12/16 15:43; Admin Dose 30 ML; Start 08/12/16 at 15:30 Mirtazapine (Remeron) 15 mg HS PO Last administered on 08/18/16 20:34; Admin Dose 15 MG; Start 08/12/16 at 21:00 Acetaminophen/ Hydrocodone Bitart ([place] (5/325)) 1 tab Q6H PRN PO PAIN Last administered on 08/15/16 22:36; Admin Dose 1 TAB; Start 08/13/16 at 23:30 Fluconazole (Diflucan) 200 mg DAILY PO Last administered on 08/19/16 09:59; Admin Dose 200 MG; Start 08/15/16 at 09:00; Stop 08/23/16 at 12:00 Pantoprazole (Protonix Tab) 40 mg BID@06,18 PO Last administered on 08/19/16 05:16; Admin Dose 40 MG; Start 08/14/16 at 18:00 IV Flush (NS 10 ml) 10 ml PRN PRN IV IV PROTOCOL; Start 08/14/16 at 17:00 Lactobacillus Acidoph/Bulgaricus (Floranex) 1 tab TID PO Last administered on 12:48; Admin Dose 1 TAB; Start 08/15/16 at 21:00 Megestrol Acetate (Megace Susp) 400 mg BID PO Last administered on 08/19/16 10 :02; Admin Dose 400 MG; Start 08/17/16 at 10:30; Stop 09/16/16 at 10:29 Levofloxacin (Levaquin) 500 mg DAILY@06 PO Last administered on 08/19/16 05:16 ; Admin Dose 500 MG; Start 08/18/16 at 14:00 AGUILA BURGOS NP Aug 19, 2016 13:11
--- NOTE | 2016-08-19 14:49 | PN ---
Date/Time of Note Date/Time of Note DATE: 08/19/16 TIME: 14:43 Assessment/Plan VTE Prophylaxis VTE Prophylaxis Intervention: other (xarelto) Lines/Catheters IV Catheter Type (from Nrs): PICC Line Central line still needed: Yes Urinary Cath still in place: Yes Reason Cath still needed: other (indicate) Assessment/Plan Assessment/Plan 1. Inocencia esophagitis, diagnosed from biopsy via EGD, on diflucan 2. Pneumonia, community acquired, on cefepime 3. 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 Cultures growing citrobacter and Proteus mirabilis. wound care, follow up with ID 4. Anemia: likely anemia of chronic disease, occult blood negative, no endoscopy at this time per GI 5. Severe protein calorie malnutrition. Past swallow evaluation. Encourage p.o. intake 6. Human immunodeficiency virus positive with noncompliance with her HIV medications, CD4 count on 06/25/2016 was 903, follow up with ID 7. Right axillary, cephalic, basilic, and brachial venous thrombus from PICC line, PICC line removed, on xarelto 8. Megace for poor intake Subjective 24 Hr Interval Summary Free Text/Dictation weak with poor appetite Exam/Review of Systems Vital Signs Vitals Vital Signs Date Time Temp Pulse Resp B/P Pulse Ox O2 Delivery O2 Flow Rate FiO2 08/19/16 07:58 97.6 104 18 147/92 92 Intake and Output 08/18/16 08/18/16 08/19/16 15:00 23:00 07:00 Intake Total 750 ml 440 ml 1430 ml Output Total 1000 ml 400 ml Balance 750 ml -560 ml 1030 ml Exam Constitutional: alert, oriented, well developed Head: atraumatic, normocephalic Eyes: EOMI, PERRL, nl conjunctiva, nl lids ENMT: nl external ears & nose, nl lips & teeth, nl nasal mucosa & septum Neck: non-tender, supple Respiratory: clear to auscultation, normal air movement, No congested cough, No crackles/rales, No diminished breath sounds, No intercostal retraction, No labored breathing, No other, No respirations, No tactile fremitus, No wheezing Cardiovascular: nl pulses, regular rate and rhythm, No S3, No S4, No bruits, No diastolic murmur, No edema, No gallop, No irregular rhythm, No jugular venous distention (JVD), No murmurs/extra sounds, No other, No rub, No systolic murmur Gastrointestinal: nl liver, spleen, non-tender, soft, No ascites, No bowel sounds, No distended, No firm, No hepatomegaly, No mass , No other, No rebound or guarding, No splenomegaly, No surgical scars, No tender Musculoskeletal: nl extremities to inspection Extremities: normal pulses, No calf tenderness, No clubbing, No cyanosis, No edema, No other, No palpable cord, No pitting pedal edema, No tenderness 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, nl mental status, nl speech, nl strength Skin: other (decubitus ulcers) Results Result Diagram: 08/16/1643308/16/16433 Medications Medications Current Medications Dextrose/Sodium Chloride (D5-1/2ns) 1,000 ml @ 125 mls/hr Q8H IV Last administered on 08/19/16 12:48; Admin Dose 125 MLS/HR; Start 08/09/16 at 06:49 Ondansetron HCl (Zofran Inj) 4 mg Q6H PRN IV NAUSEA AND/OR VOMITING; Start at 07:00 Acetaminophen (Tylenol Supp) 650 mg Q6H PRN [place] PAIN LEVEL 1-3 OR FEVER; Start 08/09/16 at 07:00 Morphine Sulfate (morphine) 2 mg Q4H PRN IV PAIN LEVEL 7-10 Last administered on 08/15/16 00:31; Admin Dose 2 MG; Start 08/09/16 at 07:00 Mesalamine (Delzicol Dr) 800 mg BID PO Last administered on 08/19/16 10:02; Admin Dose 800 MG; Start 08/09/16 at 09:00 Efavirenz (Sustiva) 600 mg DAILY PO Last administered on 08/19/16 09:59; Admin Dose 600 MG; Start 08/12/16 at 14:00 Emtricitabine/ Tenofovir (Truvada) 1 tab DAILY PO Last administered on 09:59; Admin Dose 1 TAB; Start 08/12/16 at 14:00 Collagenase (Santyl) 1 applic DAILY TOP Last administered on 08/19/16 10:03; Admin Dose 1 APPLIC; Start 08/12/16 at 14:00 Al Hydrox/Mg Hydrox/Simethicone (Mag-Al Plus) 30 ml Q6H PRN PO GASTROINTESTINAL UPSET Last administered on 08/12/16 15:43; Admin Dose 30 ML; Start 08/12/16 at 15:30 Mirtazapine (Remeron) 15 mg HS PO Last administered on 08/18/16 20:34; Admin Dose 15 MG; Start 08/12/16 at 21:00 Acetaminophen/ Hydrocodone Bitart ([place] (5/325)) 1 tab Q6H PRN PO PAIN Last administered on 08/15/16 22:36; Admin Dose 1 TAB; Start 08/13/16 at 23:30 Fluconazole (Diflucan) 200 mg DAILY PO Last administered on 08/19/16 09:59; Admin Dose 200 MG; Start 08/15/16 at 09:00; Stop 08/23/16 at 12:00 Pantoprazole (Protonix Tab) 40 mg BID@06,18 PO Last administered on 08/19/16 05:16; Admin Dose 40 MG; Start 08/14/16 at 18:00 IV Flush (NS 10 ml) 10 ml PRN PRN IV IV PROTOCOL; Start 08/14/16 at 17:00 Lactobacillus Acidoph/Bulgaricus (Floranex) 1 tab TID PO Last administered on 12:48; Admin Dose 1 TAB; Start 08/15/16 at 21:00 Megestrol Acetate (Megace Susp) 400 mg BID PO Last administered on 08/19/16 10 :02; Admin Dose 400 MG; Start 08/17/16 at 10:30; Stop 09/16/16 at 10:29 Levofloxacin (Levaquin) 500 mg DAILY@06 PO Last administered on 08/19/16 05:16 ; Admin Dose 500 MG; Start 08/18/16 at 14:00 AYSHA VILLAREAL MD Aug 19, 2016 14:48
[2016-08-19 16:11] LABS: TB-NIL 0.01 IU/mL
[2016-08-19] MEDS: MEGESTROL 40 MG TAB PO SCH (17:50)
[2016-08-19 20:41] VITALS: BP 116/71; RESP 18
[2016-08-19] MEDS: MIRTAZAPINE 15 MG TAB PO SCH (21:03)
[2016-08-20] MEDS: LEVOFLOXACIN 500 MG TAB PO SCH (04:35)
[2016-08-20] MEDS: PANTOPRAZOLE (EC) 40 MG TAB PO SCH ×3 (04:36→18:14)
[2016-08-20] MEDS: DEXTROSE 5%-0.45% NACL 1,000 ML IV SCH ×3 (05:08→23:09)
[2016-08-20 08:12] VITALS: BP 125/76; RESP 20
[2016-08-20] MEDS: FLUCONAZOLE 200 MG TAB PO SCH (08:26)
[2016-08-20] MEDS: RIVAROXABAN 15 MG TABLET PO SCH ×3 (08:26→18:14)
[2016-08-20] MEDS: EFAVIRENZ 600 MG TAB PO SCH (08:26)
[2016-08-20] MEDS: MEGESTROL (40 MG/ML) 10ML CUP PO SCH ×2 (08:27→20:35)
[2016-08-20] MEDS: MESALAMINE (EC) 400 MG CAP PO SCH ×2 (08:27→20:36)
[2016-08-20] MEDS: EMTRICITABINE/TENOFOVIR TAB PO SCH (08:27)
[2016-08-20] MEDS: MEGESTROL 40 MG TAB PO SCH (08:28)
[2016-08-20] MEDS: LACTOBACILLUS CHEW TAB PO SCH ×3 (08:28→20:35)
--- NOTE | 2016-08-20 11:28 | PN ---
Date/Time of Note Date/Time of Note DATE: 08/20/16 TIME: 11:25 Assessment/Plan VTE Prophylaxis VTE Prophylaxis Intervention: other (xareltio) Lines/Catheters IV Catheter Type (from Nrsg): PICC Line Central line still needed: Yes Urinary Cath still in place: Yes Reason Cath still needed: other (indicate) Assessment/Plan Assessment/Plan 1. Inocencia esophagitis, diagnosed from biopsy via EGD, on diflucan 2. Pneumonia, community acquired, on cefepime 3. 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 Cultures growing citrobacter and Proteus mirabilis. wound care, follow up with ID 4. Anemia: likely anemia of chronic disease, occult blood negative, no endoscopy at this time per GI 5. Severe protein calorie malnutrition. Past swallow evaluation. Encourage p.o. intake 6. Human immunodeficiency virus positive with noncompliance with her HIV medications, CD4 count on 06/25/2016 was 903, follow up with ID 7. Right axillary, cephalic, basilic, and brachial venous thrombus from PICC line, PICC line removed, on xarelto 8. Fail to thrive, no family, on megace for poor intake Subjective 24 Hr Interval Summary Free Text/Dictation seen and examined. no distress Exam/Review of Systems Vital Signs Vitals Vital Signs Date Time Temp Pulse Resp B/P Pulse Ox O2 Delivery O2 Flow Rate FiO2 08/20/16 08:12 97.2 104 20 125/76 100 Intake and Output 08/19/16 08/19/16 08/20/16 15:00 23:00 07:00 Intake Total 690 ml 1260 ml 1520 ml Output Total 400 ml 1200 ml Balance 690 ml 860 ml 320 ml Exam Constitutional: alert, frail, well developed Head: atraumatic, normocephalic Eyes: EOMI, nl conjunctiva, nl lids ENMT: nl external ears & nose, nl lips & teeth, nl nasal mucosa & septum Neck: non-tender, supple Respiratory: clear to auscultation, normal air movement, No congested cough, No crackles/rales, No diminished breath sounds, No intercostal retraction, No labored breathing, No other, No respirations, No tactile fremitus, No wheezing Cardiovascular: nl pulses, regular rate and rhythm, No S3, No S4, No bruits, No diastolic murmur, No edema, No gallop, No irregular rhythm, No jugular venous distention (JVD), No murmurs/extra sounds, No other, No rub, No systolic murmur Gastrointestinal: nl liver, spleen, non-tender, soft, No ascites, No bowel sounds, No distended, No firm, No hepatomegaly, No mass , No other, No rebound or guarding, No splenomegaly, No surgical scars, No tender Musculoskeletal: nl extremities to inspection Extremities: normal pulses, No calf tenderness, No clubbing, No cyanosis, No edema, No other, No palpable cord, No pitting pedal edema, No tenderness 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, 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 Skin: nl turgor, other (decubitus ulcers) Results Result Diagram: 08/16/1643308/16/16433 Medications Medications Current Medications Dextrose/Sodium Chloride (D5-1/2ns) 1,000 ml @ 125 mls/hr Q8H IV Last administered on 08/20/16 05:08; Admin Dose 125 MLS/HR; Start 08/09/16 at 06:49 Ondansetron HCl (Zofran Inj) 4 mg Q6H PRN IV NAUSEA AND/OR VOMITING; Start at 07:00 Acetaminophen (Tylenol Supp) 650 mg Q6H PRN [place] PAIN LEVEL 1-3 OR FEVER; Start 08/09/16 at 07:00 Morphine Sulfate (morphine) 2 mg Q4H PRN IV PAIN LEVEL 7-10 Last administered on 08/15/16 00:31; Admin Dose 2 MG; Start 08/09/16 at 07:00 Mesalamine (Delzicol Dr) 800 mg BID PO Last administered on 08/20/16 08:27; Admin Dose 800 MG; Start 08/09/16 at 09:00 Efavirenz (Sustiva) 600 mg DAILY PO Last administered on 08/20/16 08:26; Admin Dose 600 MG; Start 08/12/16 at 14:00 Emtricitabine/ Tenofovir (Truvada) 1 tab DAILY PO Last administered on 08:27; Admin Dose 1 TAB; Start 08/12/16 at 14:00 Collagenase (Santyl) 1 applic DAILY TOP Last administered on 08/19/16 10:03; Admin Dose 1 APPLIC; Start 08/12/16 at 14:00 Al Hydrox/Mg Hydrox/Simethicone (Mag-Al Plus) 30 ml Q6H PRN PO GASTROINTESTINAL UPSET Last administered on 08/12/16 15:43; Admin Dose 30 ML; Start 08/12/16 at 15:30 Mirtazapine (Remeron) 15 mg HS PO Last administered on 08/19/16 21:03; Admin Dose 15 MG; Start 08/12/16 at 21:00 Acetaminophen/ Hydrocodone Bitart ([place] (5/325)) 1 tab Q6H PRN PO PAIN Last administered on 08/15/16 22:36; Admin Dose 1 TAB; Start 08/13/16 at 23:30 Fluconazole (Diflucan) 200 mg DAILY PO Last administered on 08/20/16 08:26; Admin Dose 200 MG; Start 08/15/16 at 09:00; Stop 08/23/16 at 12:00 Pantoprazole (Protonix Tab) 40 mg BID@06,18 PO Last administered on 08/19/16 17:50; Admin Dose 40 MG; Start 08/14/16 at 18:00 IV Flush (NS 10 ml) 10 ml PRN PRN IV IV PROTOCOL; Start 08/14/16 at 17:00 Lactobacillus Acidoph/Bulgaricus (Floranex) 1 tab TID PO Last administered on 08:28; Admin Dose 1 TAB; Start 08/15/16 at 21:00 Megestrol Acetate (Megace Susp) 400 mg BID PO Last administered on 08/20/16 08: 27; Admin Dose 400 MG; Start 08/17/16 at 10:30; Stop 09/16/16 at 10:29 Levofloxacin (Levaquin) 500 mg DAILY@06 PO Last administered on 08/19/16 05:16 ; Admin Dose 500 MG; Start 08/18/16 at 14:00 Megestrol Acetate (Megace) 40 mg DAILY PO Last administered on 08/20/16 08:28; Admin Dose 40 MG; Start 08/19/16 at 15:00 AYSHA VILLAREAL MD Aug 20, 2016 11:28
[2016-08-20 11:35] LABS: ADD SCAN DIFF NO
[2016-08-20 11:43] LABS: BASOPHILS % 0.2 % (0.0-2.0); EOSINOPHILS % 0.2 % (0.0-7.0); HEMATOCRIT 26.2 % (37.0-47.0); HEMOGLOBIN 8.7 g/dl (12.0-16.0); LYMPHOCYTES # 0.8 10^3/ul (0.8-2.9); LYMPHOCYTES % 14.1 % (15.0-51.0); MEAN CORPUSCULAR HEMOGLOBIN 30.5 pg (29.0-33.0); MEAN CORPUSCULAR HGB CONC 33.2 g/dl (32.0-37.0); MEAN CORPUSCULAR VOLUME 91.9 fl (82.0-101.0); MEAN PLATELET VOLUME 9.3 fl (7.4-10.4); MONOCYTE # 0.3 10^3/ul (0.3-0.9); MONOCYTES % 4.6 % (0.0-11.0); NEUTROPHIL # 4.5 10^3/ul (1.6-7.5); NEUTROPHILS % 79.5 % (39.0-77.0); PLATELET COUNT 235 10^3/UL (140-415); RED BLOOD COUNT 2.85 10^6/ul (4.20-5.40); RED CELL DISTRIBUTION WIDTH 19.2 % (11.5-14.5); WHITE BLOOD COUNT 5.6 10^3/ul (4.8-10.8)
[2016-08-20 11:46] LABS: ALBUMIN 1.4 g/dl (3.3-4.9)
[2016-08-20 11:47] LABS: POTASSIUM 3.1 mmol/L (3.5-5.1)
[2016-08-20 11:49] LABS: ALBUMIN/GLOBULIN RATIO 0.42; CREATININE 0.38 mg/dl (0.44-1.00); TOTAL PROTEIN 4.7 g/dl (6.1-8.1)
[2016-08-20 11:50] LABS: CALCIUM 7.1 mg/dl (8.4-10.2)
--- NOTE | 2016-08-20 15:59 | CONS ---
Date/Time of Note Date/Time of Note DATE: 08/20/16 TIME: 15:56 Assessment/Plan Assessment/Plan Chief Complaint/Hosp Course SUBJECTIVE: No events overnight. The patient is sleeping. No fevers. Poor po intake per report ANTIMICROBIALS: 1. Diflucan. 2. Sustiva. 3. Truvada. 4. Levaquin PHYSICAL EXAMINATION: GENERAL: This is a cachectic, ill-appearing, middle-aged Malagasy-speaking woman who is awake in no distress. HEENT: Head atraumatic, normocephalic. Sclerae anicteric. Buccal mucosa dry. NECK: Supple, trachea midline. CHEST: Rise symmetrical. Breath sounds diminished to bases. HEART: S1, S2. ABDOMEN: Soft. Bowel tones present. EXTREMITIES: With bilateral hand edema and cyanosis of the fingers and wrists. SKIN: With severe anasarca. PICC line left upper extremity placed on 2016. ASSESSMENT 1. Human immunodeficiency virus positive with a history of noncompliance with human immunodeficiency virus medications. A CD4 count 392. 2. 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 Cultures growing citrobacter and Proteus mirabilis. 3. Cachexia. 4. Inocencia esophagitis. 5. Anasarca. 6. Hepatitis C virus. 7. Right upper extremity thrombosis, status post PICC line removed. 8. History of substance abuse. PLAN: The patient remains unchanged. Continue MAYERS/ antimicrobials and local wound care. Optimize nutrition. Follow recommendations of consultants. [facility] staff Problems: Consultation Date/Type/Reason Admit Date/Time Aug 09, 2016 at 01:59 Initial Consult Date 08/09/16 Type of Consultation: ID Exam/Review of Systems Vital Signs Vitals Vital Signs Date Time Temp Pulse Resp B/P Pulse Ox O2 Delivery O2 Flow Rate FiO2 08/20/16 08:12 97.2 104 20 125/76 100 Intake and Output 08/19/16 08/19/16 08/20/16 15:00 23:00 07:00 Intake Total 690 ml 1260 ml 1520 ml Output Total 400 ml 1200 ml Balance 690 ml 860 ml 320 ml Results Result Diagram: 08/20/16 1125 08/20/16 1125 Results 24 hrs Laboratory Tests Test 08/20/16 11:25 Alanine Aminotransferase (ALT/SGPT) 58 Albumin 1.4 L Albumin/Globulin Ratio 0.42 Alkaline Phosphatase 192 H Anion Gap 7 L Aspartate Amino Transf (AST/SGOT) 34 Basophils # 0.0 Basophils % 0.2 Blood Urea Nitrogen 9 Calcium Level 7.1 L Carbon Dioxide Level 25 Chloride Level 112 H Creatinine 0.38 L Direct Bilirubin 0.00 Eosinophils # 0.0 Eosinophils % 0.2 Globulin 3.30 H Glucose Level 83 Hematocrit 26.2 L Hemoglobin 8.7 L Indirect Bilirubin 0.0 Lymphocytes # 0.8 Lymphocytes % 14.1 L Mean Corpuscular Hemoglobin 30.5 Mean Corpuscular Hemoglobin Concent 33.2 Mean Corpuscular Volume 91.9 Mean Platelet Volume 9.3 Monocytes # 0.3 Monocytes % 4.6 Neutrophils # 4.5 Neutrophils % 79.5 H Nucleated Red Blood Cells # 0.0 Nucleated Red Blood Cells % 0.0 Platelet Count 235 # Potassium Level 3.1 L Red Blood Count 2.85 L Red Cell Distribution Width 19.2 H Sodium Level 141 Total Bilirubin 0.0 L Total Protein 4.7 L White Blood Count 5.6 # Medications Medications Current Medications Dextrose/Sodium Chloride (D5-1/2ns) 1,000 ml @ 125 mls/hr Q8H IV Last administered on 08/20/16 14:33; Admin Dose 125 MLS/HR; Start 08/09/16 at 06:49 Ondansetron HCl (Zofran Inj) 4 mg Q6H PRN IV NAUSEA AND/OR VOMITING; Start at 07:00 Acetaminophen (Tylenol Supp) 650 mg Q6H PRN [place] PAIN LEVEL 1-3 OR FEVER; Start 08/09/16 at 07:00 Morphine Sulfate (morphine) 2 mg Q4H PRN IV PAIN LEVEL 7-10 Last administered on 08/15/16 00:31; Admin Dose 2 MG; Start 08/09/16 at 07:00 Mesalamine (Delzicol Dr) 800 mg BID PO Last administered on 08/20/16 08:27; Admin Dose 800 MG; Start 08/09/16 at 09:00 Efavirenz (Sustiva) 600 mg DAILY PO Last administered on 08/20/16 08:26; Admin Dose 600 MG; Start 08/12/16 at 14:00 Emtricitabine/ Tenofovir (Truvada) 1 tab DAILY PO Last administered on 08:27; Admin Dose 1 TAB; Start 08/12/16 at 14:00 Collagenase (Santyl) 1 applic DAILY TOP Last administered on 08/19/16 10:03; Admin Dose 1 APPLIC; Start 08/12/16 at 14:00 Al Hydrox/Mg Hydrox/Simethicone (Mag-Al Plus) 30 ml Q6H PRN PO GASTROINTESTINAL UPSET Last administered on 08/12/16 15:43; Admin Dose 30 ML; Start 08/12/16 at 15:30 Mirtazapine (Remeron) 15 mg HS PO Last administered on 08/19/16 21:03; Admin Dose 15 MG; Start 08/12/16 at 21:00 Acetaminophen/ Hydrocodone Bitart ([place] (5/325)) 1 tab Q6H PRN PO PAIN Last administered on 08/15/16 22:36; Admin Dose 1 TAB; Start 08/13/16 at 23:30 Fluconazole (Diflucan) 200 mg DAILY PO Last administered on 08/20/16 08:26; Admin Dose 200 MG; Start 08/15/16 at 09:00; Stop 08/23/16 at 12:00 Pantoprazole (Protonix Tab) 40 mg BID@06,18 PO Last administered on 08/19/16 17:50; Admin Dose 40 MG; Start 08/14/16 at 18:00 IV Flush (NS 10 ml) 10 ml PRN PRN IV IV PROTOCOL; Start 08/14/16 at 17:00 Lactobacillus Acidoph/Bulgaricus (Floranex) 1 tab TID PO Last administered on 08:28; Admin Dose 1 TAB; Start 08/15/16 at 21:00 Megestrol Acetate (Megace Susp) 400 mg BID PO Last administered on 08/20/16 08: 27; Admin Dose 400 MG; Start 08/17/16 at 10:30; Stop 09/16/16 at 10:29 Levofloxacin (Levaquin) 500 mg DAILY@06 PO Last administered on 08/19/16 05:16 ; Admin Dose 500 MG; Start 08/18/16 at 14:00 Megestrol Acetate (Megace) 40 mg DAILY PO Last administered on 08/20/16 08:28; Admin Dose 40 MG; Start 08/19/16 at 15:00 AGUILA BURGOS NP Aug 20, 2016 15:59
[2016-08-20] MEDS: COLLAGENASE 30 GM TUBE TOP SCH (16:16)
[2016-08-20] MEDS: MIRTAZAPINE 15 MG TAB PO SCH (20:36)
[2016-08-20 20:45] VITALS: BP 108/58; RESP 18
[2016-08-20] MEDS: LORAZEPAM 2 MG INJ IV PRN (22:26)
[2016-08-21] MEDS: LEVOFLOXACIN 500 MG TAB PO SCH (05:27)
[2016-08-21] MEDS: PANTOPRAZOLE (EC) 40 MG TAB PO SCH ×2 (05:27→17:41)
[2016-08-21] MEDS: DEXTROSE 5%-0.45% NACL 1,000 ML IV SCH ×3 (06:49→18:03)
[2016-08-21 08:00] VITALS: BP 117/85; RESP 18
[2016-08-21] MEDS: LACTOBACILLUS CHEW TAB PO SCH ×3 (09:00→21:11)
[2016-08-21] MEDS: COLLAGENASE 30 GM TUBE TOP SCH (10:46)
--- NOTE | 2016-08-21 12:05 | CONS ---
Date/Time of Note Date/Time of Note DATE: 08/21/16 TIME: 12:04 Assessment/Plan Assessment/Plan Chief Complaint/Hosp Course SUBJECTIVE: No events overnight. The patient is sleeping. No fevers. Po intake remains poor per report ANTIMICROBIALS: 1. Diflucan. 2. Sustiva. 3. Truvada. 4. Levaquin PHYSICAL EXAMINATION: GENERAL: This is a cachectic, ill-appearing, middle-aged [place]ian-speaking woman who is awake in no distress. HEENT: Head atraumatic, normocephalic. Sclerae anicteric. Buccal mucosa dry. NECK: Supple, trachea midline. CHEST: Rise symmetrical. Breath sounds diminished to bases. HEART: S1, S2. ABDOMEN: Soft. Bowel tones present. EXTREMITIES: With bilateral hand edema and cyanosis of the fingers and wrists. SKIN: With severe anasarca. PICC line left upper extremity placed on 2016. ASSESSMENT 1. Human immunodeficiency virus positive with a history of noncompliance with human immunodeficiency virus medications. A CD4 count 392. 2. 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 Cultures growing citrobacter and Proteus mirabilis. 3. Cachexia. 4. Inocencia esophagitis. 5. Anasarca. 6. Hepatitis C virus. 7. Right upper extremity thrombosis, status post PICC line removed. 8. History of substance abuse. PLAN: The patient remains unchanged. Continue MAYERS/ antimicrobials and local wound care. Optimize nutrition. Follow recommendations of consultants. [facility] staff Problems: Consultation Date/Type/Reason Admit Date/Time Aug 09, 2016 at 01:59 Initial Consult Date 08/09/16 Type of Consultation: ID Exam/Review of Systems Vital Signs Vitals Vital Signs Date Time Temp Pulse Resp B/P Pulse Ox O2 Delivery O2 Flow Rate FiO2 08/21/16 08:00 97.8 117 18 117/85 94 Intake and Output 08/20/16 08/20/16 08/21/16 15:00 23:00 07:00 Intake Total 1125 ml 375 ml 1272 ml Output Total 1450 ml 600 ml Balance 1125 ml -1075 ml 672 ml Results Result Diagram: 08/20/16 1125 08/20/16 1125 Medications Medications Current Medications Dextrose/Sodium Chloride (D5-1/2ns) 1,000 ml @ 125 mls/hr Q8H IV Last administered on 08/21/16 10:20; Admin Dose 125 MLS/HR; Start 08/09/16 at 06:49 Ondansetron HCl (Zofran Inj) 4 mg Q6H PRN IV NAUSEA AND/OR VOMITING; Start at 07:00 Acetaminophen (Tylenol Supp) 650 mg Q6H PRN [place] PAIN LEVEL 1-3 OR FEVER; Start 08/09/16 at 07:00 Morphine Sulfate (morphine) 2 mg Q4H PRN IV PAIN LEVEL 7-10 Last administered on 08/15/16 00:31; Admin Dose 2 MG; Start 08/09/16 at 07:00 Mesalamine (Delzicol Dr) 800 mg BID PO Last administered on 08/20/16 20:36; Admin Dose 800 MG; Start 08/09/16 at 09:00 Efavirenz (Sustiva) 600 mg DAILY PO Last administered on 08/20/16 08:26; Admin Dose 600 MG; Start 08/12/16 at 14:00 Emtricitabine/ Tenofovir (Truvada) 1 tab DAILY PO Last administered on 08:27; Admin Dose 1 TAB; Start 08/12/16 at 14:00 Collagenase (Santyl) 1 applic DAILY TOP Last administered on 08/21/16 10:46; Admin Dose 1 APPLIC; Start 08/12/16 at 14:00 Al Hydrox/Mg Hydrox/Simethicone (Mag-Al Plus) 30 ml Q6H PRN PO GASTROINTESTINAL UPSET Last administered on 08/12/16 15:43; Admin Dose 30 ML; Start 08/12/16 at 15:30 Mirtazapine (Remeron) 15 mg HS PO Last administered on 08/20/16 20:36; Admin Dose 15 MG; Start 08/12/16 at 21:00 Acetaminophen/ Hydrocodone Bitart ([place] (5/325)) 1 tab Q6H PRN PO PAIN Last administered on 08/15/16 22:36; Admin Dose 1 TAB; Start 08/13/16 at 23:30 Fluconazole (Diflucan) 200 mg DAILY PO Last administered on 08/20/16 08:26; Admin Dose 200 MG; Start 08/15/16 at 09:00; Stop 08/23/16 at 12:00 Pantoprazole (Protonix Tab) 40 mg BID@06,18 PO Last administered on 08/21/16 05 :27; Admin Dose 40 MG; Start 08/14/16 at 18:00 IV Flush (NS 10 ml) 10 ml PRN PRN IV IV PROTOCOL; Start 08/14/16 at 17:00 Lactobacillus Acidoph/Bulgaricus (Floranex) 1 tab TID PO Last administered on 20:35; Admin Dose 1 TAB; Start 08/15/16 at 21:00 Megestrol Acetate (Megace Susp) 400 mg BID PO Last administered on 08/20/16 20: 35; Admin Dose 400 MG; Start 08/17/16 at 10:30; Stop 09/16/16 at 10:29 Levofloxacin (Levaquin) 500 mg DAILY@06 PO Last administered on 08/21/16 05:27 ; Admin Dose 500 MG; Start 08/18/16 at 14:00 Megestrol Acetate (Megace) 40 mg DAILY PO Last administered on 08/20/16 08:28; Admin Dose 40 MG; Start 08/19/16 at 15:00 Lorazepam (Ativan) 1 mg Q3 PRN IV ANXIETY Last administered on 08/20/16 22:26; Admin Dose 1 MG; Start 08/20/16 at 22:30 AGUILA BURGOS NP Aug 21, 2016 12:05
[2016-08-21] MEDS: MEGESTROL (40 MG/ML) 10ML CUP PO SCH ×2 (12:18→21:09)
[2016-08-21] MEDS: EMTRICITABINE/TENOFOVIR TAB PO SCH (12:18)
[2016-08-21] MEDS: EFAVIRENZ 600 MG TAB PO SCH (12:18)
[2016-08-21] MEDS: RIVAROXABAN 15 MG TABLET PO SCH ×2 (12:19→17:41)
[2016-08-21] MEDS: FLUCONAZOLE 200 MG TAB PO SCH (12:19)
[2016-08-21] MEDS: MEGESTROL 40 MG TAB PO SCH (12:19)
[2016-08-21] MEDS: MESALAMINE (EC) 400 MG CAP PO SCH ×2 (12:19→21:12)
--- NOTE | 2016-08-21 13:13 | PN ---
Date/Time of Note Date/Time of Note DATE: 08/21/16 TIME: 13:10 Assessment/Plan VTE Prophylaxis VTE Prophylaxis Intervention: SCD's Lines/Catheters IV Catheter Type (from Nrsg): PICC Line Central line still needed: Yes Urinary Cath still in place: Yes Reason Cath still needed: other (indicate) Assessment/Plan Assessment/Plan 1. Inocencia esophagitis, diagnosed from biopsy via EGD, on diflucan 2. Pneumonia, community acquired, on cefepime 3. 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 Cultures growing citrobacter and Proteus mirabilis. wound care, follow up with ID 4. Anemia: likely anemia of chronic disease, occult blood negative, no endoscopy at this time per GI 5. Severe protein calorie malnutrition. Past swallow evaluation. Encourage p.o. intake 6. Human immunodeficiency virus positive with noncompliance with her HIV medications, CD4 count on 06/25/2016 was 903, follow up with ID 7. Right axillary, cephalic, basilic, and brachial venous thrombus from PICC line, PICC line removed, on xarelto 8. Fail to thrive, no family, on megace for poor intake, hospice eval Subjective 24 Hr Interval Summary Free Text/Dictation patient is full alert today. She states she wants palliative care Exam/Review of Systems Vital Signs Vitals Vital Signs Date Time Temp Pulse Resp B/P Pulse Ox O2 Delivery O2 Flow Rate FiO2 08/21/16 08:00 97.8 117 18 117/85 94 Intake and Output 08/20/16 08/20/16 08/21/16 15:00 23:00 07:00 Intake Total 1125 ml 375 ml 1272 ml Output Total 1450 ml 600 ml Balance 1125 ml -1075 ml 672 ml Exam Constitutional: alert, frail, well developed Head: atraumatic, normocephalic Eyes: EOMI, PERRL, nl conjunctiva, nl lids ENMT: nl external ears & nose, nl lips & teeth, nl nasal mucosa & septum Neck: non-tender, supple Respiratory: clear to auscultation, normal air movement, No congested cough, No crackles/rales, No diminished breath sounds, No intercostal retraction, No labored breathing, No other, No respirations, No tactile fremitus, No wheezing Cardiovascular: nl pulses, regular rate and rhythm, No S3, No S4, No bruits, No diastolic murmur, No edema, No gallop, No irregular rhythm, No jugular venous distention (JVD), No murmurs/extra sounds, No other, No rub, No systolic murmur Gastrointestinal: nl liver, spleen, non-tender, soft, No ascites, No bowel sounds, No distended, No firm, No hepatomegaly, No mass , No other, No rebound or guarding, No splenomegaly, No surgical scars, No tender Musculoskeletal: nl extremities to inspection Extremities: normal pulses, No calf tenderness, No clubbing, No cyanosis, No edema, No other, No palpable cord, No pitting pedal edema, No tenderness Neurological: GEAR NICKER II-XII intact, nl mental status, nl speech, nl strength Results Result Diagram: 08/20/16 1125 08/20/16 1125 Medications Medications Current Medications Dextrose/Sodium Chloride (D5-1/2ns) 1,000 ml @ 125 mls/hr Q8H IV Last administered on 08/21/16 10:20; Admin Dose 125 MLS/HR; Start 08/09/16 at 06:49 Ondansetron HCl (Zofran Inj) 4 mg Q6H PRN IV NAUSEA AND/OR VOMITING; Start at 07:00 Acetaminophen (Tylenol Supp) 650 mg Q6H PRN [place] PAIN LEVEL 1-3 OR FEVER; Start 08/09/16 at 07:00 Morphine Sulfate (morphine) 2 mg Q4H PRN IV PAIN LEVEL 7-10 Last administered on 08/15/16 00:31; Admin Dose 2 MG; Start 08/09/16 at 07:00 Mesalamine (Delzicol Dr) 800 mg BID PO Last administered on 08/21/16 12:19; Admin Dose 800 MG; Start 08/09/16 at 09:00 Efavirenz (Sustiva) 600 mg DAILY PO Last administered on 08/21/16 12:18; Admin Dose 600 MG; Start 08/12/16 at 14:00 Emtricitabine/ Tenofovir (Truvada) 1 tab DAILY PO Last administered on 12:18; Admin Dose 1 TAB; Start 08/12/16 at 14:00 Collagenase (Santyl) 1 applic DAILY TOP Last administered on 08/21/16 10:46; Admin Dose 1 APPLIC; Start 08/12/16 at 14:00 Al Hydrox/Mg Hydrox/Simethicone (Mag-Al Plus) 30 ml Q6H PRN PO GASTROINTESTINAL UPSET Last administered on 08/12/16 15:43; Admin Dose 30 ML; Start 08/12/16 at 15:30 Mirtazapine (Remeron) 15 mg HS PO Last administered on 08/20/16 20:36; Admin Dose 15 MG; Start 08/12/16 at 21:00 Acetaminophen/ Hydrocodone Bitart ([place] (5/325)) 1 tab Q6H PRN PO PAIN Last administered on 08/15/16 22:36; Admin Dose 1 TAB; Start 08/13/16 at 23:30 Fluconazole (Diflucan) 200 mg DAILY PO Last administered on 08/21/16 12:19; Admin Dose 200 MG; Start 08/15/16 at 09:00; Stop 08/23/16 at 12:00 Pantoprazole (Protonix Tab) 40 mg BID@06,18 PO Last administered on 08/21/16 05 :27; Admin Dose 40 MG; Start 08/14/16 at 18:00 IV Flush (NS 10 ml) 10 ml PRN PRN IV IV PROTOCOL; Start 08/14/16 at 17:00 Lactobacillus Acidoph/Bulgaricus (Floranex) 1 tab TID PO Last administered on 13:06; Admin Dose 1 TAB; Start 08/15/16 at 21:00 Megestrol Acetate (Megace Susp) 400 mg BID PO Last administered on 08/21/16 12: 18; Admin Dose 400 MG; Start 08/17/16 at 10:30; Stop 09/16/16 at 10:29 Levofloxacin (Levaquin) 500 mg DAILY@06 PO Last administered on 08/21/16 05:27 ; Admin Dose 500 MG; Start 08/18/16 at 14:00 Megestrol Acetate (Megace) 40 mg DAILY PO Last administered on 08/21/16 12:19; Admin Dose 40 MG; Start 08/19/16 at 15:00 Lorazepam (Ativan) 1 mg Q3 PRN IV ANXIETY Last administered on 08/20/16 22:26; Admin Dose 1 MG; Start 08/20/16 at 22:30 AYSHA VILLAREAL MD Aug 21, 2016 13:13
[2016-08-21] MEDS: ONDANSETRON 4 MG INJ IV PRN (17:46)
[2016-08-21] MEDS: PIPER-TAZO 3.375 GM IV (PMX) 100 ML IVPB SCH (18:36)
--- NOTE | 2016-08-21 18:52 | RADRPT ---
PROCEDURE: XR Chest. CLINICAL INDICATION: Possible aspiration. TECHNIQUE: Single frontal view of the chest was obtained COMPARISON: 08/14/2016 FINDINGS: Left central venous line in place with tip in the brachiocephalic vein versus superior vena cava. T he tip is obscured by osseous structures and recommend repeat film Bilateral moderate pleural effusions are increased over interval. Cardiac silhouette cannot be evaluated. Bilateral dependent atelectasis versus airspace disease wit h decreased lung inflation over interval. There is no pneumothorax. IMPRESSION: 1. Left central venous line tip is obscured, and recommend repeat film for tube position evaluation . 2. Bilateral moderate pleural effusions with mild dependent atelectasis versus airspace disease. RPTAT: [facility] Physician Dee Date Time Electronically viewed and signed by Physician Dee on 08/21/2016 18:51 RS/
[2016-08-21] MEDS: ALBUTEROL/IPRATROPIUM (NEB) 3 ML AMP HHN SCH (20:40)
[2016-08-21] MEDS: MIRTAZAPINE 15 MG TAB PO SCH (21:10)
[2016-08-21 21:17] VITALS: BP 115/55; RESP 20
[2016-08-22] VITALS (7 sets, daily range): BP systolic 108–114; BP diastolic 57–65; PULSE 99–110; RESP 16–18
[2016-08-22] MEDS: ALBUTEROL/IPRATROPIUM (NEB) 3 ML AMP HHN SCH ×6 (02:01→21:22)
[2016-08-22] MEDS: PIPER-TAZO 3.375 GM IV (PMX) 100 ML IVPB SCH ×3 (05:08→22:38)
[2016-08-22] MEDS: PANTOPRAZOLE (EC) 40 MG TAB PO SCH (05:08)
[2016-08-22] MEDS: LEVOFLOXACIN 500 MG TAB PO SCH (05:08)
[2016-08-22] MEDS: ONDANSETRON 4 MG INJ IV PRN (05:31)
[2016-08-22] MEDS: MEGESTROL (40 MG/ML) 10ML CUP PO SCH ×2 (09:04→22:39)
[2016-08-22] MEDS: EFAVIRENZ 600 MG TAB PO SCH (09:04)
[2016-08-22] MEDS: FLUCONAZOLE 200 MG TAB PO SCH (09:04)
[2016-08-22] MEDS: MESALAMINE (EC) 400 MG CAP PO SCH ×2 (09:04→22:38)
[2016-08-22] MEDS: MEGESTROL 40 MG TAB PO SCH (09:04)
[2016-08-22] MEDS: COLLAGENASE 30 GM TUBE TOP SCH ×2 (09:05→12:01)
[2016-08-22] MEDS: EMTRICITABINE/TENOFOVIR TAB PO SCH (09:05)
[2016-08-22] MEDS: RIVAROXABAN 15 MG TABLET PO SCH (09:05)
[2016-08-22] MEDS: LACTOBACILLUS CHEW TAB PO SCH ×3 (09:05→22:39)
--- NOTE | 2016-08-22 11:06 | CONS ---
Date/Time of Note Date/Time of Note DATE: 08/22/16 TIME: 11:04 Assessment/Plan Assessment/Plan Chief Complaint/Hosp Course SUBJECTIVE: No events overnight. The patient is sleeping. No fevers. Po intake remains poor per report ANTIMICROBIALS: 1. Diflucan. 2. Sustiva. 3. Truvada. 4. Levaquin 5. Zosyn PHYSICAL EXAMINATION: GENERAL: This is a cachectic, ill-appearing, middle-aged [place]se-speaking woman who is sleeping, in no distress. HEENT: Head atraumatic, normocephalic. Sclerae anicteric. Buccal mucosa dry. NECK: Supple, trachea midline. CHEST: Rise symmetrical. Breath sounds diminished to bases. HEART: S1, S2. ABDOMEN: Soft. Bowel tones present. EXTREMITIES: With bilateral hand edema and cyanosis of the fingers and wrists. SKIN: With severe anasarca. ASSESSMENT 1. Human immunodeficiency virus positive with a history of noncompliance with human immunodeficiency virus medications. A CD4 count 392. 2. 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 Cultures growing citrobacter and Proteus mirabilis. 3. Cachexia. 4. Hx of Inocencia esophagitis. 5. Anasarca. 6. Hepatitis C virus. 7. Right upper extremity thrombosis, status post PICC line removed. 8. History of substance abuse. 9. B pleural effusion ?PNA PLAN: Clinically unchanged. Started on Zosyn yesterday, will dc Levaquin, continue MAYERS/ antimicrobials and local wound care. Encourage IS and increase activity, consider pulmonary evaluation. DW staff Problems: Consultation Date/Type/Reason Admit Date/Time Aug 09, 2016 at 01:59 Initial Consult Date 08/09/16 Type of Consultation: ID Exam/Review of Systems Vital Signs Vitals Vital Signs Date Time Temp Pulse Resp B/P Pulse Ox O2 Delivery O2 Flow Rate FiO2 08/22/16 10:25 98.9 102 18 113/62 96 08/22/16 06:03 3.0 08/22/16 06:03 Nasal Cannula Intake and Output 08/21/16 08/21/16 08/22/16 15:00 23:00 07:00 Intake Total 625 ml 1685 ml 1035 ml Output Total 1200 ml 700 ml Balance 625 ml 485 ml 335 ml Results Result Diagram: 08/20/16 1125 08/20/16 1125 Medications Medications Current Medications Dextrose/Sodium Chloride (D5-1/2ns) 1,000 ml @ 50 mls/hr Q20H IV Last administered on 08/21/16 18:03; Admin Dose 50 MLS/HR; Start 08/09/16 at 06:49 Ondansetron HCl (Zofran Inj) 4 mg Q6H PRN IV NAUSEA AND/OR VOMITING Last administered on 08/22/16 05:31; Admin Dose 4 MG; Start 08/09/16 at 07:00 Acetaminophen (Tylenol Supp) 650 mg Q6H PRN [place] PAIN LEVEL 1-3 OR FEVER; Start 08/09/16 at 07:00 Morphine Sulfate (morphine) 2 mg Q4H PRN [place] PAIN LEVEL 7-10 Last administered on 08/15/16 00:31; Admin Dose 2 MG; Start 08/09/16 at 07:00 Mesalamine (Delzicol Dr) 800 mg BID PO Last administered on 08/22/16 09:04; Admin Dose 800 MG; Start 08/09/16 at 09:00 Efavirenz (Sustiva) 600 mg DAILY PO Last administered on 08/22/16 09:04; Admin Dose 600 MG; Start 08/12/16 at 14:00 Emtricitabine/ Tenofovir (Truvada) 1 tab DAILY PO Last administered on 09:05; Admin Dose 1 TAB; Start 08/12/16 at 14:00 Collagenase (Santyl) 1 applic DAILY TOP Last administered on 08/22/16 09:05; Admin Dose 1 APPLIC; Start 08/12/16 at 14:00 Al Hydrox/Mg Hydrox/Simethicone (Mag-Al Plus) 30 ml Q6H PRN PO GASTROINTESTINAL UPSET Last administered on 08/12/16 15:43; Admin Dose 30 ML; Start 08/12/16 at 15:30 Mirtazapine (Remeron) 15 mg HS PO Last administered on 08/21/16 21:10; Admin Dose 15 MG; Start 08/12/16 at 21:00 Acetaminophen/ Hydrocodone Bitart ([place] (5/325)) 1 tab Q6H PRN PO PAIN Last administered on 08/15/16 22:36; Admin Dose 1 TAB; Start 08/13/16 at 23:30 Fluconazole (Diflucan) 200 mg DAILY PO Last administered on 08/22/16 09:04; Admin Dose 200 MG; Start 08/15/16 at 09:00; Stop 08/23/16 at 12:00 IV Flush (NS 10 ml) 10 ml PRN PRN IV IV PROTOCOL; Start 08/14/16 at 17:00 Lactobacillus Acidoph/Bulgaricus (Floranex) 1 tab TID PO Last administered on 09:05; Admin Dose 1 TAB; Start 08/15/16 at 21:00 Megestrol Acetate (Megace Susp) 400 mg BID PO Last administered on 08/22/16 09: 04; Admin Dose 400 MG; Start 08/17/16 at 10:30; Stop 09/16/16 at 10:29 Levofloxacin (Levaquin) 500 mg DAILY@06 PO Last administered on 08/22/16 05:08 ; Admin Dose 500 MG; Start 08/18/16 at 14:00 Megestrol Acetate (Megace) 40 mg DAILY PO Last administered on 08/22/16 09:04; Admin Dose 40 MG; Start 08/19/16 at 15:00 Lorazepam 1 mg 1 mg Q3 PRN IV ANXIETY Last administered on 08/20/16 22:26; Admin Dose 1 MG; Start 08/20/16 at 22:30 Piperacillin Sod/ Tazobactam Sod (Zosyn 3.375gm/ 100 ml (Pmx)) 100 ml @ 200 mls /hr Q8 IVPB Last administered on 08/22/16 05:08; Admin Dose 200 MLS/HR; Start 08/21/16 at 18:30 Pantoprazole 40 mg 40 mg BID@06,18 IV ; Start 08/22/16 at 18:00 Pantoprazole 80 mg/Sodium Chloride 100 ml @ 10 mls/hr Q10H IV ; Start 08/22/16 at 11:00; Status UNV Octreotide Acetate/Sodium Chloride (Sandostatin/NS) 50 ml @ 2.5 mls/hr Q20H IV ; Start 08/22/16 at 11:00; Status UNV AGUILA BURGOS NP Aug 22, 2016 11:06
[2016-08-22] MEDS ORDERED: PANTOPRAZOLE IV 80 MG in SOD CHLORIDE 0.9% 100 ML IV SCH (12:00)
--- NOTE | 2016-08-22 12:48 | RADRPT ---
PROCEDURE: XR Chest. CLINICAL INDICATION: Ng tube placement TECHNIQUE: Single portable view of the chest was obtained COMPARISON: Yesterday FINDINGS: There is a NG tube within the stomach. The heart, lungs and mediastinum are otherwise unchanged. The heart is normal in size. There are extensive bilateral infiltrates throughout the lungs. There ar e moderate bilateral pleural effusions. RPTAT:AA IMPRESSION: New NG tube within the stomach No other significant change. Extensive bilateral infiltrates and bilateral pleural effusions. .Jonathan Paris MD, MD Date Time Electronically viewed and signed by .Jonathan Paris MD, MD on 08/22/2016 12:48 .S/
[2016-08-22] MEDS ORDERED: LACTOBACILLUS CHEW TAB PO SCH ×2 (13:00)
--- NOTE | 2016-08-22 13:46 | RADRPT ---
Vent Rate: 107 bpm RR Interval: 0 msec SC Interval: 130 msec QRS Duration: 90 msec QT Interval: 300 msec QTC Interval: 400 msec P-R-T [place]: 32 - 44 - 0 degrees Sinus tachycardia Cannot rule out Anterior infarct , age undetermined Abnormal ECG Electronically Signed By: Stan Maradiaga [id number]
--- NOTE | 2016-08-22 15:11 | PN ---
Date/Time of Note Date/Time of Note DATE: 08/22/16 TIME: 15:04 Assessment/Plan VTE Prophylaxis VTE Prophylaxis Intervention: SCD's Lines/Catheters IV Catheter Type (from Nrsg): PICC Line Central line still needed: Yes Urinary Cath still in place: Yes Reason Cath still needed: other (indicate) Assessment/Plan Assessment/Plan 1. Upper GI bleeding with vomiting with coffee grounded substance today, now with NG tube low suction and protonix, stop xarelto 2. Inocencia esophagitis, diagnosed from biopsy via EGD, on diflucan 3. Pneumonia, aspiration, on zosyn 3. 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 Cultures growing citrobacter and Proteus mirabilis. wound care, follow up with ID 4. Anemia: likely anemia of chronic disease, occult blood negative, no endoscopy at this time per GI 5. Severe protein calorie malnutrition. Past swallow evaluation. Encourage p.o. intake 6. Human immunodeficiency virus positive with noncompliance with her HIV medications, CD4 count on 06/25/2016 was 903, follow up with ID 7. Right axillary, cephalic, basilic, and brachial venous thrombus from PICC line, PICC line removed, on xarelto 8. Fail to thrive, no family, on megace for poor intake, poor prognosis, hospice eval Exam/Review of Systems Vital Signs Vitals Vital Signs Date Time Temp Pulse Resp B/P Pulse Ox O2 Delivery O2 Flow Rate FiO2 08/22/16 12:31 110 08/22/16 12:22 96 3.0 08/22/16 12:22 20 Nasal Cannula 08/22/16 10:25 98.9 113/62 Intake and Output 08/21/16 08/21/16 08/22/16 15:00 23:00 07:00 Intake Total 625 ml 1685 ml 1035 ml Output Total 1200 ml 700 ml Balance 625 ml 485 ml 335 ml Exam Constitutional: frail, other (arousable) Head: atraumatic, normocephalic Eyes: EOMI, PERRL, nl conjunctiva ENMT: nl external ears & nose, nl lips & teeth, nl nasal mucosa & septum Neck: non-tender, supple Respiratory: clear to auscultation, normal air movement Cardiovascular: nl pulses, regular rate and rhythm, No S3, No S4, No bruits, No diastolic murmur, No edema, No gallop, No irregular rhythm, No jugular venous distention (JVD), No murmurs/extra sounds, No other, No rub, No systolic murmur Gastrointestinal: nl liver, spleen, non-tender, soft Musculoskeletal: nl extremities to inspection Extremities: normal pulses, No calf tenderness, No clubbing, No cyanosis, No edema, No other, No palpable cord, No pitting pedal edema, No tenderness Neurological: MOTOR 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 II-XII intact, confused, lethargic Results Result Diagram: 08/22/16 1250 08/20/16 1125 Results 24 hrs Laboratory Tests Test 08/22/16 12:50 Hematocrit 23.6 L Medications Medications Current Medications Dextrose/Sodium Chloride (D5-1/2ns) 1,000 ml @ 50 mls/hr Q20H IV Last administered on 08/21/16 18:03; Admin Dose 50 MLS/HR; Start 08/09/16 at 06:49 Ondansetron HCl (Zofran Inj) 4 mg Q6H PRN IV NAUSEA AND/OR VOMITING Last administered on 08/22/16 05:31; Admin Dose 4 MG; Start 08/09/16 at 07:00 Acetaminophen (Tylenol Supp) 650 mg Q6H PRN [place] PAIN LEVEL 1-3 OR FEVER; Start 08/09/16 at 07:00 Morphine Sulfate (morphine) 2 mg Q4H PRN IV PAIN LEVEL 7-10 Last administered on 08/15/16 00:31; Admin Dose 2 MG; Start 08/09/16 at 07:00 Mesalamine (Delzicol Dr) 800 mg BID PO Last administered on 08/22/16 09:04; Admin Dose 800 MG; Start 08/09/16 at 09:00 Efavirenz (Sustiva) 600 mg DAILY PO Last administered on 08/22/16 09:04; Admin Dose 600 MG; Start 08/12/16 at 14:00 Emtricitabine/ Tenofovir (Truvada) 1 tab DAILY PO Last administered on 09:05; Admin Dose 1 TAB; Start 08/12/16 at 14:00 Collagenase (Santyl) 1 applic DAILY TOP Last administered on 08/21/16 10:46; Admin Dose 1 APPLIC; Start 08/12/16 at 14:00 Al Hydrox/Mg Hydrox/Simethicone (Mag-Al Plus) 30 ml Q6H PRN PO GASTROINTESTINAL UPSET Last administered on 08/12/16 15:43; Admin Dose 30 ML; Start 08/12/16 at 15:30 Mirtazapine (Remeron) 15 mg HS PO Last administered on 08/21/16 21:10; Admin Dose 15 MG; Start 08/12/16 at 21:00 Acetaminophen/ Hydrocodone Bitart ([place] (5/325)) 1 tab Q6H PRN PO PAIN Last administered on 08/15/16 22:36; Admin Dose 1 TAB; Start 08/13/16 at 23:30 Fluconazole (Diflucan) 200 mg DAILY PO Last administered on 08/22/16 09:04; Admin Dose 200 MG; Start 08/15/16 at 09:00; Stop 08/23/16 at 12:00 IV Flush (NS 10 ml) 10 ml PRN PRN IV IV PROTOCOL; Start 08/14/16 at 17:00 Lactobacillus Acidoph/Bulgaricus (Floranex) 1 tab TID PO Last administered on 09:05; Admin Dose 1 TAB; Start 08/15/16 at 21:00 Megestrol Acetate (Megace Susp) 400 mg BID PO Last administered on 08/22/16 09: 04; Admin Dose 400 MG; Start 08/17/16 at 10:30; Stop 09/16/16 at 10:29 Megestrol Acetate (Megace) 40 mg DAILY PO Last administered on 08/22/16 09:04; Admin Dose 40 MG; Start 08/19/16 at 15:00 Lorazepam 1 mg 1 mg Q3 PRN IV ANXIETY Last administered on 08/20/16 22:26; Admin Dose 1 MG; Start 08/20/16 at 22:30 Piperacillin Sod/ Tazobactam Sod 100 ml @ 200 mls/hr Q8 IVPB Last administered on 08/22/16 13:35; Admin Dose 200 MLS/HR; Start 08/21/16 at 18:30 Pantoprazole 80 mg/Sodium Chloride 100 ml @ 10 mls/hr Q10H IV ; Start 08/22/16 at 12:00 Octreotide Acetate/Sodium Chloride (Sandostatin/NS) 50 ml @ 2.5 mls/hr Q20H IV ; Start 08/22/16 at 12:00 AYSHA VILLAREAL MD Aug 22, 2016 15:11
[2016-08-22] MEDS: OCTREOTIDE 500 MCG in SOD CHLORIDE 0.9% 49 ML IV SCH (15:29)
[2016-08-22 16:39] LABS: ADD SCAN DIFF NO
[2016-08-22 16:42] LABS: ABNORMAL IP MESSAGE 1; HEMATOCRIT 22.5 % (37.0-47.0); HEMOGLOBIN 7.6 g/dl (12.0-16.0); MEAN CORPUSCULAR HEMOGLOBIN 30.6 pg (29.0-33.0); MEAN CORPUSCULAR HGB CONC 33.8 g/dl (32.0-37.0); MEAN CORPUSCULAR VOLUME 90.7 fl (82.0-101.0); PLATELET COUNT 201 10^3/UL (140-415); RED BLOOD COUNT 2.48 10^6/ul (4.20-5.40); RED CELL DISTRIBUTION WIDTH 19.7 % (11.5-14.5); WHITE BLOOD COUNT 14.4 10^3/ul (4.8-10.8)
[2016-08-22] MEDS ORDERED: SOD CHLORIDE 0.9% 250 ML IV* ONE (16:48)
[2016-08-22] MEDS: PANTOPRAZOLE IV 80 MG in SOD CHLORIDE 0.9% 100 ML IV SCH ×2 (17:00→23:51)
[2016-08-22 17:02] LABS: CREATININE 0.42 mg/dl (0.44-1.00)
[2016-08-22 17:03] LABS: CALCIUM 7.5 mg/dl (8.4-10.2)
[2016-08-22 17:08] LABS: POTASSIUM 2.8 mmol/L (3.5-5.1)
--- NOTE | 2016-08-22 17:10 | CONS ---
Date/Time of Note Date/Time of Note DATE: 08/22/16 TIME: 17:10 Assessment/Plan Assessment/Plan Additional Assessment/Plan Symptomatic anemia * New onset coffee ground emesis * NG tube to LIS with bloody aspirate * Check H&H Q8 hrs, transfuse 2 unit for hgb < or equal to 7.5 * Possible EGD with Dr. Hazel over weekend if Hgb continues to drop * Start PPI drip * Inocencia esophagitis noted with EGD biopsy in June * Continue fluconazole for inocencia esophagitis Severe protein calorie malnutrition. * Passed swallow evaluation. Encourage p.o. intake Generalized weakness. Altered mental status * Review ammonia labs HIV disease * ID following Further recommendations depend on clinical course Patient seen in collaboration with Dr. Carrasco Consultation Date/Type/Reason Admit Date/Time Aug 09, 2016 at 01:59 Initial Consult Date 08/09/16 Type of Consultation: GI 24 HR Interval Summary Free Text/Dictation New onset coffee ground emesis 2 units ordered Possible EGD with Dr. Hazel Exam/Review of Systems Vital Signs Vitals Vital Signs Date Time Temp Pulse Resp B/P Pulse Ox O2 Delivery O2 Flow Rate FiO2 08/22/16 16:36 103 22 100 Nasal Cannula 3.0 08/22/16 10:25 98.9 113/62 Intake and Output 08/21/16 08/21/16 08/22/16 15:00 23:00 07:00 Intake Total 625 ml 1685 ml 1035 ml Output Total 1200 ml 700 ml Balance 625 ml 485 ml 335 ml Exam Constitutional: non-verbal, other (thin) Head: normocephalic Eyes: EOMI, nl conjunctiva, nl lids ENMT: nl external ears & nose, nl lips & teeth, nl nasal mucosa & septum Respiratory: normal air movement Cardiovascular: regular rate and rhythm Gastrointestinal: non-tender, soft Musculoskeletal: nl extremities to inspection Neurological: lethargic Results Result Diagram: 08/22/16 1539 08/22/16 1539 Results 24 hrs Laboratory Tests Test 08/22/16 12:50 08/22/16 15:39 Hematocrit 23.6 L 22.5 L Anion Gap 6 L Blood Urea Nitrogen 12 Calcium Level 7.5 L Carbon Dioxide Level 28 Chloride Level 108 Creatinine 0.42 L Glucose Level 94 Hemoglobin 7.6 L Mean Corpuscular Hemoglobin 30.6 Mean Corpuscular Hemoglobin Concent 33.8 Mean Corpuscular Volume 90.7 Mean Platelet Volume 10.0 Platelet Count 201 Potassium Level 2.8 *L Red Blood Count 2.48 L Red Cell Distribution Width 19.7 H Sodium Level 139 White Blood Count 14.4 #H Medications Medications Current Medications Dextrose/Sodium Chloride (D5-1/2ns) 1,000 ml @ 50 mls/hr Q20H IV Last administered on 08/21/16 18:03; Admin Dose 50 MLS/HR; Start 08/09/16 at 06:49 Ondansetron HCl (Zofran Inj) 4 mg Q6H PRN IV NAUSEA AND/OR VOMITING Last administered on 08/22/16 05:31; Admin Dose 4 MG; Start 08/09/16 at 07:00 Acetaminophen (Tylenol Supp) 650 mg Q6H PRN [place] PAIN LEVEL 1-3 OR FEVER; Start 08/09/16 at 07:00 Morphine Sulfate (morphine) 2 mg Q4H PRN [place] PAIN LEVEL 7-10 Last administered on 08/15/16 00:31; Admin Dose 2 MG; Start 08/09/16 at 07:00 Mesalamine (Delzicol Dr) 800 mg BID PO Last administered on 08/22/16 09:04; Admin Dose 800 MG; Start 08/09/16 at 09:00 Efavirenz (Sustiva) 600 mg DAILY PO Last administered on 08/22/16 09:04; Admin Dose 600 MG; Start 08/12/16 at 14:00 Emtricitabine/ Tenofovir (Truvada) 1 tab DAILY PO Last administered on 09:05; Admin Dose 1 TAB; Start 08/12/16 at 14:00 Collagenase (Santyl) 1 applic DAILY TOP Last administered on 08/21/16 10:46; Admin Dose 1 APPLIC; Start 08/12/16 at 14:00 Al Hydrox/Mg Hydrox/Simethicone (Mag-Al Plus) 30 ml Q6H PRN PO GASTROINTESTINAL UPSET Last administered on 08/12/16 15:43; Admin Dose 30 ML; Start 08/12/16 at 15:30 Mirtazapine (Remeron) 15 mg HS PO Last administered on 08/21/16 21:10; Admin Dose 15 MG; Start 08/12/16 at 21:00 Acetaminophen/ Hydrocodone Bitart ([place] (5/325)) 1 tab Q6H PRN PO PAIN Last administered on 08/15/16 22:36; Admin Dose 1 TAB; Start 08/13/16 at 23:30 Fluconazole (Diflucan) 200 mg DAILY PO Last administered on 08/22/16 09:04; Admin Dose 200 MG; Start 08/15/16 at 09:00; Stop 08/23/16 at 12:00 IV Flush (NS 10 ml) 10 ml PRN PRN IV IV PROTOCOL; Start 08/14/16 at 17:00 Lactobacillus Acidoph/Bulgaricus (Floranex) 1 tab TID PO Last administered on 09:05; Admin Dose 1 TAB; Start 08/15/16 at 21:00 Megestrol Acetate (Megace Susp) 400 mg BID PO Last administered on 08/22/16 09: 04; Admin Dose 400 MG; Start 08/17/16 at 10:30; Stop 09/16/16 at 10:29 Megestrol Acetate (Megace) 40 mg DAILY PO Last administered on 08/22/16 09:04; Admin Dose 40 MG; Start 08/19/16 at 15:00 Lorazepam 1 mg 1 mg Q3 PRN IV ANXIETY Last administered on 08/20/16 22:26; Admin Dose 1 MG; Start 08/20/16 at 22:30 Piperacillin Sod/ Tazobactam Sod 100 ml @ 200 mls/hr Q8 IVPB Last administered on 08/22/16 13:35; Admin Dose 200 MLS/HR; Start 08/21/16 at 18:30 Octreotide Acetate 500 mcg/ Sodium Chloride 50 ml @ 2.5 mls/hr Q20H IV Last administered on 08/22/16 15:29; Admin Dose 2.5 MLS/HR; Start 08/22/16 at 12:00 Pantoprazole 80 mg/Sodium Chloride 100 ml @ 10 mls/hr Q10H IV ; Start 08/22/16 at 17:00 Sodium Chloride (NS) 250 ml @ 0 mls/hr Q0M ONCE IV* ; Start 08/22/16 at 16:48; Stop 08/22/16 at 16:49 MYCHAL COLON Aug 22, 2016 17:10
--- NOTE | 2016-08-22 17:49 | EN ---
Date/Time of Note Date/Time of Note DATE: 08/22/16 TIME: 17:48 Event Note Medicine Medicine Event Note After speaking with GI team, I feel it is a medical necessity for pt to undergo emergent EGD given her UGI bleeding. Pt is not able to consent for procedure at present time, and family cannot be reached at this time as well. JESUS RUIZ Aug 22, 2016 17:49
[2016-08-22] MEDS ORDERED: POTASSIUM CHLORIDE 250 ML IVPB ONE (18:00)
[2016-08-22] MEDS ORDERED: PANTOPRAZOLE 40 MG INJ IV SCH ×2 (18:00)
[2016-08-22 18:19] LABS: TOTAL IRON BINDING CAPACITY 129 ug/dl (241-421)
[2016-08-22 18:42] LABS: IRON < 10 ug/dl (35-150)
[2016-08-22 20:58] LABS: LYMPHOCYTES # 0.3 10^3/ul (0.8-2.9); NEUTROPHIL # 13.4 10^3/ul (1.6-7.5)
[2016-08-22 20:59] LABS: HYPOCHROMASIA 1+
[2016-08-22] MEDS: MIRTAZAPINE 15 MG TAB PO SCH (22:39)
[2016-08-23] VITALS (11 sets, daily range): BP systolic 99–115; BP diastolic 67–78; PULSE 97–116; RESP 18–20
[2016-08-23] MEDS: ALBUTEROL/IPRATROPIUM (NEB) 3 ML AMP HHN SCH ×6 (01:25→21:00)
[2016-08-23] MEDS: DEXTROSE 5%-0.45% NACL 1,000 ML IV SCH (02:04)
[2016-08-23] MEDS: PIPER-TAZO 3.375 GM IV (PMX) 100 ML IVPB SCH ×3 (06:46→21:29)
[2016-08-23 07:49] LABS: ADD SCAN DIFF NO
[2016-08-23 08:00] LABS: ABNORMAL IP MESSAGE 1; BASOPHILS % 0.1 % (0.0-2.0); HEMATOCRIT 33.4 % (37.0-47.0); HEMOGLOBIN 11.3 g/dl (12.0-16.0); LYMPHOCYTES # 0.5 10^3/ul (0.8-2.9); LYMPHOCYTES % 7.1 % (15.0-51.0); MEAN CORPUSCULAR HEMOGLOBIN 29.7 pg (29.0-33.0); MEAN CORPUSCULAR HGB CONC 33.8 g/dl (32.0-37.0); MEAN CORPUSCULAR VOLUME 87.9 fl (82.0-101.0); MEAN PLATELET VOLUME 9.9 fl (7.4-10.4); MONOCYTE # 0.2 10^3/ul (0.3-0.9); MONOCYTES % 3.1 % (0.0-11.0); NEUTROPHILS % 88.8 % (39.0-77.0); PLATELET COUNT 169 10^3/UL (140-415); RED CELL DISTRIBUTION WIDTH 18.5 % (11.5-14.5); WHITE BLOOD COUNT 6.8 10^3/ul (4.8-10.8)
[2016-08-23] MEDS: OCTREOTIDE 500 MCG in SOD CHLORIDE 0.9% 49 ML IV SCH (08:00)
[2016-08-23 08:06] LABS: INR 1.32; PROTIME 16.5 Sec (12.2-14.2); PT RATIO 1.3
[2016-08-23 08:07] LABS: PARTIAL THROMBOPLASTIN TIME 39.4 Sec (25.0-35.0)
[2016-08-23 08:17] LABS: CREATININE 0.45 mg/dl (0.44-1.00)
[2016-08-23 08:18] LABS: CALCIUM 7.6 mg/dl (8.4-10.2)
[2016-08-23 08:27] LABS: POTASSIUM 2.9 mmol/L (3.5-5.1)
[2016-08-23] MEDS: MESALAMINE (EC) 400 MG CAP PO SCH ×2 (08:56→21:00)
[2016-08-23] MEDS: MEGESTROL 40 MG TAB PO SCH (08:57)
[2016-08-23] MEDS: FLUCONAZOLE 200 MG TAB PO SCH (08:57)
[2016-08-23] MEDS: MEGESTROL (40 MG/ML) 10ML CUP PO SCH ×2 (08:57→21:00)
[2016-08-23] MEDS: LACTOBACILLUS CHEW TAB PO SCH ×3 (08:57→21:00)
[2016-08-23] MEDS: EMTRICITABINE/TENOFOVIR TAB PO SCH (09:00)
[2016-08-23] MEDS: EFAVIRENZ 600 MG TAB PO SCH (09:00)
[2016-08-23] MEDS ORDERED: POTASSIUM CHLORIDE 250 ML IVPB SCH (09:30)
[2016-08-23] MEDS: PANTOPRAZOLE IV 80 MG in SOD CHLORIDE 0.9% 100 ML IV SCH ×2 (10:30→23:00)
--- NOTE | 2016-08-23 13:49 | CONS ---
Date/Time of Note Date/Time of Note DATE: 08/23/16 TIME: 13:45 Assessment/Plan Assessment/Plan Chief Complaint/Hosp Course SUBJECTIVE: Tx to tele 2 to upper GI bleeding, awake, very weak, NGT to suction , no fevers, nad. ANTIMICROBIALS: 1. Diflucan. 2. Sustiva. 3. Truvada. 6. Zosyn PHYSICAL EXAMINATION: GENERAL: This is a cachectic, ill-appearing, middle-aged woman who is lying comfortably in bed. HEENT: Head atraumatic, normocephalic. Sclerae anicteric. Buccal mucosa dry. NECK: Supple, trachea midline. CHEST: Rise symmetrical. Breath sounds diminished to bases. HEART: S1, S2. ABDOMEN: Soft. Bowel tones present. EXTREMITIES: With bilateral hand edema and cyanosis of the fingers and wrists. SKIN: Severe anasarca. ASSESSMENT: 1. Acute GIB===> continue NPO/NGT to suction 2. HCAP, poss aspiration 3. Human immunodeficiency virus positive with a history of noncompliance with human immunodeficiency virus medications. A CD4 count 392. 4. 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 Cultures growing citrobacter and Proteus mirabilis. 4. Cachexia. 5. Hx of Inocencia esophagitis. 6. Anasarca 2 to protein calorie malnutrition. 7. Hepatitis C virus. 8. Right upper extremity thrombosis, status post PICC line removed. 9. History of substance abuse. PLAN: Clinically stable, continue present care, abx, pending EGD. Prognosis guarded DW staff Problems: Consultation Date/Type/Reason Admit Date/Time Aug 09, 2016 at 01:59 Initial Consult Date 08/09/16 Type of Consultation: ID Exam/Review of Systems Vital Signs Vitals Vital Signs Date Time Temp Pulse Resp B/P Pulse Ox O2 Delivery O2 Flow Rate FiO2 08/23/16 13:14 92 20 96 Nasal Cannula 2.0 08/23/16 12:03 96.8 115/77 Intake and Output 08/22/16 08/22/16 08/23/16 15:00 23:00 07:00 Intake Total 200 ml 250 ml 460 ml Output Total 400 ml 450 ml Balance -200 ml 250 ml 10 ml Results Result Diagram: 08/23/16 0658 08/23/16 0658 Results 24 hrs Laboratory Tests Test 08/22/16 15:39 08/22/16 17:35 08/22/16 23:35 08/23/16 06:58 Anion Gap 6 L 9 Band Neutrophils % 5.0 Blood Urea Nitrogen 12 13 Calcium Level 7.5 L 7.6 L Carbon Dioxide Level 28 25 Chloride Level 108 112 H Creatinine 0.42 L 0.45 Glucose Level 94 98 Hematocrit 22.5 L 33.4 #L Hemoglobin 7.6 L 11.3 #L Hypochromasia 1+ Lymphocytes # 0.3 L 0.5 L Lymphocytes % 2.0 L 7.1 L Mean Corpuscular Hemoglobin 30.6 29.7 Mean Corpuscular Hemoglobin Concent 33.8 33.8 Mean Corpuscular Volume 90.7 87.9 Mean Platelet Volume 10.0 9.9 Neutrophils # 13.4 H 6.0 Neutrophils % 93.0 H 88.8 H Platelet Count 201 169 Potassium Level 2.8 *L 2.9 *L Red Blood Count 2.48 L 3.80 #L Red Cell Distribution Width 19.7 H 18.5 H Sodium Level 139 143 White Blood Count 14.4 #H 6.8 # Iron Level < 10 L Percent Iron Saturation Total Iron Binding Capacity 129 L Urine Test NEGATIVE Activated Partial Thromboplast Time 39.4 H Basophils # 0.0 Basophils % 0.1 Eosinophils # 0.0 Eosinophils % 0.0 INR International Normalized Ratio 1.32 Monocytes # 0.2 L Monocytes % 3.1 Nucleated Red Blood Cells # 0.0 Nucleated Red Blood Cells % 0.0 Prothrombin Time 16.5 H Prothrombin Time Ratio 1.3 Medications Medications Current Medications Dextrose/Sodium Chloride (D5-1/2ns) 1,000 ml @ 50 mls/hr Q20H IV Last administered on 08/21/16 18:03; Admin Dose 50 MLS/HR; Start 08/09/16 at 06:49 Ondansetron HCl (Zofran Inj) 4 mg Q6H PRN IV NAUSEA AND/OR VOMITING Last administered on 08/22/16 05:31; Admin Dose 4 MG; Start 08/09/16 at 07:00 Acetaminophen (Tylenol Supp) 650 mg Q6H PRN [place] PAIN LEVEL 1-3 OR FEVER; Start 08/09/16 at 07:00 Morphine Sulfate (morphine) 2 mg Q4H PRN IV PAIN LEVEL 7-10 Last administered on 08/15/16 00:31; Admin Dose 2 MG; Start 08/09/16 at 07:00 Mesalamine (Delzicol Dr) 800 mg BID PO Last administered on 08/22/16 09:04; Admin Dose 800 MG; Start 08/09/16 at 09:00 Efavirenz (Sustiva) 600 mg DAILY PO Last administered on 08/22/16 09:04; Admin Dose 600 MG; Start 08/12/16 at 14:00 Emtricitabine/ Tenofovir (Truvada) 1 tab DAILY PO Last administered on 09:05; Admin Dose 1 TAB; Start 08/12/16 at 14:00 Collagenase (Santyl) 1 applic DAILY TOP Last administered on 08/21/16 10:46; Admin Dose 1 APPLIC; Start 08/12/16 at 14:00 Al Hydrox/Mg Hydrox/Simethicone (Mag-Al Plus) 30 ml Q6H PRN PO GASTROINTESTINAL UPSET Last administered on 08/12/16 15:43; Admin Dose 30 ML; Start 08/12/16 at 15:30 Mirtazapine (Remeron) 15 mg HS PO Last administered on 08/21/16 21:10; Admin Dose 15 MG; Start 08/12/16 at 21:00 Acetaminophen/ Hydrocodone Bitart ([place] (5/325)) 1 tab Q6H PRN PO PAIN Last administered on 08/15/16 22:36; Admin Dose 1 TAB; Start 08/13/16 at 23:30 IV Flush (NS 10 ml) 10 ml PRN PRN IV IV PROTOCOL; Start 08/14/16 at 17:00 Lactobacillus Acidoph/Bulgaricus (Floranex) 1 tab TID PO Last administered on 09:05; Admin Dose 1 TAB; Start 08/15/16 at 21:00 Megestrol Acetate (Megace Susp) 400 mg BID PO Last administered on 08/22/16 09: 04; Admin Dose 400 MG; Start 08/17/16 at 10:30; Stop 09/16/16 at 10:29 Megestrol Acetate (Megace) 40 mg DAILY PO Last administered on 08/22/16 09:04; Admin Dose 40 MG; Start 08/19/16 at 15:00 Lorazepam 1 mg 1 mg Q3 PRN IV ANXIETY Last administered on 08/20/16 22:26; Admin Dose 1 MG; Start 08/20/16 at 22:30 Piperacillin Sod/ Tazobactam Sod 100 ml @ 200 mls/hr Q8 IVPB Last administered on 08/23/16 06:46; Admin Dose 200 MLS/HR; Start 08/21/16 at 18:30 Octreotide Acetate 500 mcg/ Sodium Chloride 50 ml @ 2.5 mls/hr Q20H IV Last administered on 08/22/16 15:29; Admin Dose 2.5 MLS/HR; Start 08/22/16 at 12:00 Pantoprazole/ Sodium Chloride (Protonix Iv/NS) 100 ml @ 10 mls/hr Q10H IV Last administered on 08/23/16 10:30; Admin Dose 10 MLS/HR; Start 08/22/16 at 17: 00 AGUILA BURGOS NP Aug 23, 2016 13:49
--- NOTE | 2016-08-23 14:58 | CONS ---
Date/Time of Note Date/Time of Note DATE: 08/23/16 TIME: 14:52 Assessment/Plan Assessment/Plan Chief Complaint/Hosp Course Impression: 1. Symptomatic anemia: she is alert and awake thus able to consent for EGD for hemostasis 2. Severe protein calorie malnutrition. 3. hypokalemia: refractory despite 80 mEq of KCl given over the last 2 days 4. Pneumonia. 5. Altered mental status: improved 6. Dysphagia now passed swallow eval. Recommendation: 1. Emergency EGD tomorrow if acute drop in h/h and if potassium repleted 2. repleting potassium per primary, but I added 40 mEq KCl to IVF 3. continue NPO in case emergency EGD needs to be done. 4. continue protonix gtt and octreotide gtt for today. If h/h stable tomorrow, can dc octreotide and change protonix to bid dosing. Problems: Consultation Date/Type/Reason Admit Date/Time Aug 09, 2016 at 01:59 Initial Consult Date 08/09/16 Type of Consultation: GI 24 HR Interval Summary Free Text/Dictation patient is more awake and understood the risks, benefits and alternatives of EGD and thus, signed informed consent for EGD. Continues to have maroon colored output in NG. EGD cannot be performed today due to hypokalemia despite replacing 40 mEq KCl yesterday and today. Constitutional: improved Exam/Review of Systems Vital Signs Vitals Vital Signs Date Time Temp Pulse Resp B/P Pulse Ox O2 Delivery O2 Flow Rate FiO2 08/23/16 13:14 92 20 96 Nasal Cannula 2.0 08/23/16 12:03 96.8 115/77 Intake and Output 08/22/16 08/22/16 08/23/16 15:00 23:00 07:00 Intake Total 200 ml 250 ml 460 ml Output Total 400 ml 450 ml Balance -200 ml 250 ml 10 ml Exam Constitutional: alert, oriented, well developed Psych: nl mood/affect, no complaints Head: atraumatic, normocephalic Eyes: EOMI, nl conjunctiva, nl lids, nl sclera ENMT: mucosa pink and moist, nl external ears & nose, nl lips & teeth, nl nasal mucosa & septum Neck: non-tender, supple Respiratory: clear to auscultation, normal air movement Cardiovascular: nl pulses, regular rate and rhythm Gastrointestinal: bowel sounds, non-tender, soft Results Result Diagram: 08/23/16 0658 08/23/16 0658 Results 24 hrs Laboratory Tests Test 08/22/16 15:39 08/22/16 17:35 08/22/16 23:35 08/23/16 06:58 Anion Gap 6 L 9 Band Neutrophils % 5.0 Blood Urea Nitrogen 12 13 Calcium Level 7.5 L 7.6 L Carbon Dioxide Level 28 25 Chloride Level 108 112 H Creatinine 0.42 L 0.45 Glucose Level 94 98 Hematocrit 22.5 L 33.4 #L Hemoglobin 7.6 L 11.3 #L Hypochromasia 1+ Lymphocytes # 0.3 L 0.5 L Lymphocytes % 2.0 L 7.1 L Mean Corpuscular Hemoglobin 30.6 29.7 Mean Corpuscular Hemoglobin Concent 33.8 33.8 Mean Corpuscular Volume 90.7 87.9 Mean Platelet Volume 10.0 9.9 Neutrophils # 13.4 H 6.0 Neutrophils % 93.0 H 88.8 H Platelet Count 201 169 Potassium Level 2.8 *L 2.9 *L Red Blood Count 2.48 L 3.80 #L Red Cell Distribution Width 19.7 H 18.5 H Sodium Level 139 143 White Blood Count 14.4 #H 6.8 # Iron Level < 10 L Percent Iron Saturation Total Iron Binding Capacity 129 L Urine Test NEGATIVE Activated Partial Thromboplast Time 39.4 H Basophils # 0.0 Basophils % 0.1 Eosinophils # 0.0 Eosinophils % 0.0 INR International Normalized Ratio 1.32 Monocytes # 0.2 L Monocytes % 3.1 Nucleated Red Blood Cells # 0.0 Nucleated Red Blood Cells % 0.0 Prothrombin Time 16.5 H Prothrombin Time Ratio 1.3 Medications Medications Current Medications Dextrose/Sodium Chloride (D5-1/2ns) 1,000 ml @ 50 mls/hr Q20H IV Last administered on 08/21/16 18:03; Admin Dose 50 MLS/HR; Start 08/09/16 at 06:49 Ondansetron HCl (Zofran Inj) 4 mg Q6H PRN IV NAUSEA AND/OR VOMITING Last administered on 08/22/16 05:31; Admin Dose 4 MG; Start 08/09/16 at 07:00 Acetaminophen (Tylenol Supp) 650 mg Q6H PRN [place] PAIN LEVEL 1-3 OR FEVER; Start 08/09/16 at 07:00 Morphine Sulfate (morphine) 2 mg Q4H PRN IV PAIN LEVEL 7-10 Last administered on 08/15/16 00:31; Admin Dose 2 MG; Start 08/09/16 at 07:00 Mesalamine (Delzicol Dr) 800 mg BID PO Last administered on 08/22/16 09:04; Admin Dose 800 MG; Start 08/09/16 at 09:00 Efavirenz (Sustiva) 600 mg DAILY PO Last administered on 08/22/16 09:04; Admin Dose 600 MG; Start 08/12/16 at 14:00 Emtricitabine/ Tenofovir (Truvada) 1 tab DAILY PO Last administered on 09:05; Admin Dose 1 TAB; Start 08/12/16 at 14:00 Collagenase (Santyl) 1 applic DAILY TOP Last administered on 08/21/16 10:46; Admin Dose 1 APPLIC; Start 08/12/16 at 14:00 Al Hydrox/Mg Hydrox/Simethicone (Mag-Al Plus) 30 ml Q6H PRN PO GASTROINTESTINAL UPSET Last administered on 08/12/16 15:43; Admin Dose 30 ML; Start 08/12/16 at 15:30 Mirtazapine (Remeron) 15 mg HS PO Last administered on 08/21/16 21:10; Admin Dose 15 MG; Start 08/12/16 at 21:00 Acetaminophen/ Hydrocodone Bitart ([place] (5/325)) 1 tab Q6H PRN PO PAIN Last administered on 08/15/16 22:36; Admin Dose 1 TAB; Start 08/13/16 at 23:30 IV Flush (NS 10 ml) 10 ml PRN PRN IV IV PROTOCOL; Start 08/14/16 at 17:00 Lactobacillus Acidoph/Bulgaricus (Floranex) 1 tab TID PO Last administered on 09:05; Admin Dose 1 TAB; Start 08/15/16 at 21:00 Megestrol Acetate (Megace Susp) 400 mg BID PO Last administered on 08/22/16 09: 04; Admin Dose 400 MG; Start 08/17/16 at 10:30; Stop 09/16/16 at 10:29 Megestrol Acetate (Megace) 40 mg DAILY PO Last administered on 08/22/16 09:04; Admin Dose 40 MG; Start 08/19/16 at 15:00 Lorazepam 1 mg 1 mg Q3 PRN IV ANXIETY Last administered on 08/20/16 22:26; Admin Dose 1 MG; Start 08/20/16 at 22:30 Piperacillin Sod/ Tazobactam Sod 100 ml @ 200 mls/hr Q8 IVPB Last administered on 08/23/16 14:50; Admin Dose 200 MLS/HR; Start 08/21/16 at 18:30 Octreotide Acetate 500 mcg/ Sodium Chloride 50 ml @ 2.5 mls/hr Q20H IV Last administered on 08/22/16 15:29; Admin Dose 2.5 MLS/HR; Start 08/22/16 at 12:00 Pantoprazole/ Sodium Chloride (Protonix Iv/NS) 100 ml @ 10 mls/hr Q10H IV Last administered on 08/23/16 10:30; Admin Dose 10 MLS/HR; Start 08/22/16 at 17: 00 GOMEZ MARK MD Aug 23, 2016 14:58
--- NOTE | 2016-08-23 15:03 | PN ---
Date/Time of Note Date/Time of Note DATE: 08/23/16 TIME: 14:59 Assessment/Plan VTE Prophylaxis VTE Prophylaxis Intervention: SCD's Lines/Catheters IV Catheter Type (from Nrsg): PICC Line Central line still needed: Yes Urinary Cath still in place: Yes Reason Cath still needed: urinary retention Assessment/Plan Chief Complaint/Hosp Course Assessment/Plan 41 F with: 1. Upper GI bleeding with vomiting with coffee grounded substance - still present, but less than yesterday, with NG tube low suction and protonix, octreotide, and pRBC transfusion yesterday - have stopped xarelto yesterday, monitor H/H - for possible EGD in 24-48 hrs per GI if UGI bleed worsens 2. Inocencia esophagitis, diagnosed from biopsy via EGD, on diflucan 3. Pneumonia, aspiration, on zosyn 3. 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 Cultures growing citrobacter and Proteus mirabilis. wound care, follow up with ID 4. Anemia: likely anemia of chronic disease, occult blood negative, no endoscopy at this time per GI 5. Severe protein calorie malnutrition. Past swallow evaluation. Encourage p.o. intake 6. Human immunodeficiency virus positive with noncompliance with her HIV medications, CD4 count on 06/25/2016 was 903, follow up with ID 7. Right axillary, cephalic, basilic, and brachial venous thrombus from PICC line, PICC line removed, stopped xarelto sec to # 1. 8. Fail to thrive, no family, on megace for poor intake, poor prognosis, consider hospice eval Problems: Subjective 24 Hr Interval Summary Free Text/Dictation Pt a bit more alert now, less UGI bleed now, NG tube w/ suction stopped today, seen by GI team. Had pRBC transfusion yesterday as well. On PPI and octreotide drips. Exam/Review of Systems Vital Signs Vitals Vital Signs Date Time Temp Pulse Resp B/P Pulse Ox O2 Delivery O2 Flow Rate FiO2 08/23/16 13:14 92 20 96 Nasal Cannula 2.0 08/23/16 12:03 96.8 115/77 Intake and Output 08/22/16 08/22/16 08/23/16 15:00 23:00 07:00 Intake Total 200 ml 250 ml 460 ml Output Total 400 ml 450 ml Balance -200 ml 250 ml 10 ml Exam Constitutional: frail, other (arousable) Head: atraumatic, normocephalic Eyes: EOMI, PERRL, nl conjunctiva ENMT: nl external ears & nose, nl lips & teeth, nl nasal mucosa & septum Neck: non-tender, supple Respiratory: clear to auscultation, normal air movement Cardiovascular: nl pulses, regular rate and rhythm, No S3, No S4, No bruits, No diastolic murmur, No edema, No gallop, No irregular rhythm Gastrointestinal: nl liver, spleen, non-tender, soft Musculoskeletal: nl extremities to inspection Extremities: normal pulses, No calf tenderness, No clubbing, No cyanosis, No edema, No other, No palpable cord, No pitting pedal edema, No tenderness Neurological: RFID ENGINEER II-XII intact, less confused, lethargic Results Result Diagram: 08/23/16 0658 08/23/16 0658 Results 24 hrs Laboratory Tests Test 08/22/16 15:39 08/22/16 17:35 08/22/16 23:35 08/23/16 06:58 Anion Gap 6 L 9 Band Neutrophils % 5.0 Blood Urea Nitrogen 12 13 Calcium Level 7.5 L 7.6 L Carbon Dioxide Level 28 25 Chloride Level 108 112 H Creatinine 0.42 L 0.45 Glucose Level 94 98 Hematocrit 22.5 L 33.4 #L Hemoglobin 7.6 L 11.3 #L Hypochromasia 1+ Lymphocytes # 0.3 L 0.5 L Lymphocytes % 2.0 L 7.1 L Mean Corpuscular Hemoglobin 30.6 29.7 Mean Corpuscular Hemoglobin Concent 33.8 33.8 Mean Corpuscular Volume 90.7 87.9 Mean Platelet Volume 10.0 9.9 Neutrophils # 13.4 H 6.0 Neutrophils % 93.0 H 88.8 H Platelet Count 201 169 Potassium Level 2.8 *L 2.9 *L Red Blood Count 2.48 L 3.80 #L Red Cell Distribution Width 19.7 H 18.5 H Sodium Level 139 143 White Blood Count 14.4 #H 6.8 # Iron Level < 10 L Percent Iron Saturation Total Iron Binding Capacity 129 L Urine Test NEGATIVE Activated Partial Thromboplast Time 39.4 H Basophils # 0.0 Basophils % 0.1 Eosinophils # 0.0 Eosinophils % 0.0 INR International Normalized Ratio 1.32 Monocytes # 0.2 L Monocytes % 3.1 Nucleated Red Blood Cells # 0.0 Nucleated Red Blood Cells % 0.0 Prothrombin Time 16.5 H Prothrombin Time Ratio 1.3 Medications Medications Current Medications Ondansetron HCl (Zofran Inj) 4 mg Q6H PRN IV NAUSEA AND/OR VOMITING Last administered on 08/22/16 05:31; Admin Dose 4 MG; Start 08/09/16 at 07:00 Acetaminophen (Tylenol Supp) 650 mg Q6H PRN [place] PAIN LEVEL 1-3 OR FEVER; Start 08/09/16 at 07:00 Morphine Sulfate (morphine) 2 mg Q4H PRN IV PAIN LEVEL 7-10 Last administered on 08/15/16 00:31; Admin Dose 2 MG; Start 08/09/16 at 07:00 Mesalamine (Delzicol Dr) 800 mg BID PO Last administered on 08/22/16 09:04; Admin Dose 800 MG; Start 08/09/16 at 09:00 Efavirenz (Sustiva) 600 mg DAILY PO Last administered on 08/22/16 09:04; Admin Dose 600 MG; Start 08/12/16 at 14:00 Emtricitabine/ Tenofovir (Truvada) 1 tab DAILY PO Last administered on 09:05; Admin Dose 1 TAB; Start 08/12/16 at 14:00 Collagenase (Santyl) 1 applic DAILY TOP Last administered on 08/21/16 10:46; Admin Dose 1 APPLIC; Start 08/12/16 at 14:00 Al Hydrox/Mg Hydrox/Simethicone (Mag-Al Plus) 30 ml Q6H PRN PO GASTROINTESTINAL UPSET Last administered on 08/12/16 15:43; Admin Dose 30 ML; Start 08/12/16 at 15:30 Mirtazapine (Remeron) 15 mg HS PO Last administered on 08/21/16 21:10; Admin Dose 15 MG; Start 08/12/16 at 21:00 Acetaminophen/ Hydrocodone Bitart ([place] (5/325)) 1 tab Q6H PRN PO PAIN Last administered on 08/15/16 22:36; Admin Dose 1 TAB; Start 08/13/16 at 23:30 IV Flush (NS 10 ml) 10 ml PRN PRN IV IV PROTOCOL; Start 08/14/16 at 17:00 Lactobacillus Acidoph/Bulgaricus (Floranex) 1 tab TID PO Last administered on 09:05; Admin Dose 1 TAB; Start 08/15/16 at 21:00 Megestrol Acetate (Megace Susp) 400 mg BID PO Last administered on 08/22/16 09: 04; Admin Dose 400 MG; Start 08/17/16 at 10:30; Stop 09/16/16 at 10:29 Megestrol Acetate (Megace) 40 mg DAILY PO Last administered on 08/22/16 09:04; Admin Dose 40 MG; Start 08/19/16 at 15:00 Lorazepam 1 mg 1 mg Q3 PRN IV ANXIETY Last administered on 08/20/16 22:26; Admin Dose 1 MG; Start 08/20/16 at 22:30 Piperacillin Sod/ Tazobactam Sod 100 ml @ 200 mls/hr Q8 IVPB Last administered on 08/23/16 14:50; Admin Dose 200 MLS/HR; Start 08/21/16 at 18:30 Octreotide Acetate 500 mcg/ Sodium Chloride 50 ml @ 2.5 mls/hr Q20H IV Last administered on 08/22/16 15:29; Admin Dose 2.5 MLS/HR; Start 08/22/16 at 12:00 Pantoprazole 80 mg/Sodium Chloride 100 ml @ 10 mls/hr Q10H IV Last administered on 08/23/16 10:30; Admin Dose 10 MLS/HR; Start 08/22/16 at 17:00 Potassium Chloride/Dextrose/ Sod Cl (D5-NS + KCl 40 Meq) 1,000 ml @ 75 mls/hr [id number] IV ; Start 08/23/16 at 16:00 JESUS RUIZ Aug 23, 2016 15:03
[2016-08-23] MEDS: D5-NS + KCL 40 MEQ 1,000 ML IV SCH (15:45)
[2016-08-23] MEDS: MIRTAZAPINE 15 MG TAB PO SCH (21:00)
[2016-08-23] MEDS ORDERED: POTASSIUM CHLORIDE 250 ML IVPB ONE (22:30)
[2016-08-23] MEDS ORDERED: SOD FERRIC GLUC COMPLX 125 MG in SOD CHLORIDE 0.9% 100 ML IVPB SCH (22:30)
[2016-08-23] MEDS ORDERED: MAGNESIUM SULFATE 2 GM/50 ML 50 ML IVPB ONE (22:30)
[2016-08-24] VITALS (25 sets, daily range): BP systolic 102–115; BP diastolic 68–85; PULSE 95–115; RESP 16–27
[2016-08-24] MEDS: ALBUTEROL/IPRATROPIUM (NEB) 3 ML AMP HHN SCH ×6 (01:22→21:32)
[2016-08-24] MEDS: OCTREOTIDE 500 MCG in SOD CHLORIDE 0.9% 49 ML IV SCH (04:00)
[2016-08-24] MEDS: D5-NS + KCL 40 MEQ 1,000 ML IV SCH (05:20)
[2016-08-24] MEDS: PIPER-TAZO 3.375 GM IV (PMX) 100 ML IVPB SCH ×3 (05:44→21:03)
[2016-08-24 06:37] LABS: ADD SCAN DIFF NO
[2016-08-24 06:52] LABS: BASOPHILS % 0.1 % (0.0-2.0); EOSINOPHILS % 0.1 % (0.0-7.0); HEMATOCRIT 35.8 % (37.0-47.0); HEMOGLOBIN 11.9 g/dl (12.0-16.0); LYMPHOCYTES # 0.7 10^3/ul (0.8-2.9); LYMPHOCYTES % 9.9 % (15.0-51.0); MEAN CORPUSCULAR HEMOGLOBIN 29.6 pg (29.0-33.0); MEAN CORPUSCULAR HGB CONC 33.2 g/dl (32.0-37.0); MEAN CORPUSCULAR VOLUME 89.1 fl (82.0-101.0); MEAN PLATELET VOLUME 9.5 fl (7.4-10.4); MONOCYTE # 0.3 10^3/ul (0.3-0.9); MONOCYTES % 4.6 % (0.0-11.0); NEUTROPHIL # 6.1 10^3/ul (1.6-7.5); NEUTROPHILS % 84.5 % (39.0-77.0); PLATELET COUNT 205 10^3/UL (140-415); RED BLOOD COUNT 4.02 10^6/ul (4.20-5.40); RED CELL DISTRIBUTION WIDTH 20.8 % (11.5-14.5); WHITE BLOOD COUNT 7.2 10^3/ul (4.8-10.8)
[2016-08-24 07:43] LABS: POTASSIUM 4.1 mmol/L (3.5-5.1)
[2016-08-24 07:46] LABS: CREATININE 0.58 mg/dl (0.44-1.00)
[2016-08-24 07:47] LABS: CALCIUM 7.7 mg/dl (8.4-10.2)
[2016-08-24] MEDS: MEGESTROL 40 MG TAB PO SCH (09:00)
[2016-08-24] MEDS: PANTOPRAZOLE IV 80 MG in SOD CHLORIDE 0.9% 100 ML IV SCH (09:00)
[2016-08-24] MEDS: EMTRICITABINE/TENOFOVIR TAB PO SCH (09:00)
[2016-08-24] MEDS: COLLAGENASE 30 GM TUBE TOP SCH (09:00)
[2016-08-24] MEDS: EFAVIRENZ 600 MG TAB PO SCH (09:00)
[2016-08-24] MEDS: MESALAMINE (EC) 400 MG CAP PO SCH ×2 (09:00→21:00)
[2016-08-24] MEDS: LACTOBACILLUS CHEW TAB PO SCH ×3 (09:00→21:00)
[2016-08-24] MEDS: MEGESTROL (40 MG/ML) 10ML CUP PO SCH ×2 (09:00→21:00)
--- NOTE | 2016-08-24 10:24 | OPR ---
Date/Time of Note Date/Time of Note DATE: 08/24/16 TIME: 10:18 Operative Report Free Text/Dictation Impression: 1. multiple small erosions and ulcers throughout the stomach Recommendations: 1. f/u biopsy results to r/o CMV and H. pylori 2. continue ppi 3. add carafate Procedure Date: Aug 24, 2016 Preoperative Diagnosis maroon stool in NG output, downtrending hgb requiring blood transfusion Operation Performed EGD and biopsies Surgeon: GOMEZ MARK MD Anesthesia: MAC Anesthesiologist: AXEL SCHMITZ MD Estimated Blood Loss: minimal Complications: None Pt Condition Post Procedure: stable Disposition: PACU Indications maroon blood in NG output, downtrending hgb requiring blood transfusion Operative Findings 1. GEJ and Z line at 38 cm 2. small 2 cm hiatal hernia 3. multiple erosions and small ulcers in the stomach Procedure Description After time out and informed consent, I inserted an EGD scope from the mouth and advanced to second portion of the duodenum. I then withdraw the EGD scope to the stomach where I performed retroflexion and examined the fundus and cardia. I then suctioned out the air in stomach then examined the esophagus circumferentially. I then suctioned out the air while removing the EGD scope completely. GOMEZ MARK MD Aug 24, 2016 10:24
[2016-08-24] MEDS ORDERED: PROPOFOL 20 ML ONE (10:25)
[2016-08-24] MEDS ORDERED: DIPHENHYDRAMINE 50 MG INJ IV PRN (11:30)
[2016-08-24] MEDS ORDERED: METOCLOPRAMIDE 10 MG INJ IV PRN (11:30)
[2016-08-24] MEDS ORDERED: MEPERIDINE 25 MG INJ IV PRN (11:30)
[2016-08-24] MEDS ORDERED: FENTAnyl 50 MCG/ML VIAL IV PRN (11:30)
[2016-08-24] MEDS ORDERED: MIDAZOLAM 1 MG/ML 2 ML INJ IV PRN (11:30)
[2016-08-24] MEDS ORDERED: ONDANSETRON 4 MG INJ IV PRN (11:30)
--- NOTE | 2016-08-24 13:30 | PN ---
Date/Time of Note Date/Time of Note DATE: 08/24/16 TIME: 13:29 Assessment/Plan VTE Prophylaxis VTE Prophylaxis Intervention: SCD's Lines/Catheters IV Catheter Type (from Nrs): PICC Line Central line still needed: Yes Urinary Cath still in place: Yes Reason Cath still needed: urinary retention Assessment/Plan Chief Complaint/Hosp Course Assessment/Plan 41 F with: 1. Upper GI bleeding with vomiting with coffee grounded substance - s/p EGD today with multiple small erosions and ulcers throughout the stomach found. - monitor H/H - continue PPI, GI recommends carafate, and ST eval pending. 2. Inocencia esophagitis, diagnosed from biopsy via EGD, on diflucan 3. Pneumonia, aspiration, on zosyn 3. 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 Cultures growing citrobacter and Proteus mirabilis. wound care, follow up with ID 4. Anemia: likely anemia of chronic disease, occult blood negative, no endoscopy at this time per GI 5. Severe protein calorie malnutrition. Past swallow evaluation. Encourage p.o. intake 6. Human immunodeficiency virus positive with noncompliance with her HIV medications, CD4 count on 06/25/2016 was 903, follow up with ID 7. Right axillary, cephalic, basilic, and brachial venous thrombus from PICC line, PICC line removed, stopped xarelto sec to # 1. 8. Fail to thrive, no family, on megace for poor intake, poor prognosis, consider hospice eval Problems: Subjective 24 Hr Interval Summary Free Text/Dictation Pt had EGD earlier today. Exam/Review of Systems Vital Signs Vitals Vital Signs Date Time Temp Pulse Resp B/P Pulse Ox O2 Delivery O2 Flow Rate FiO2 08/24/16 12:25 101 08/24/16 12:18 97.2 20 115/81 100 08/24/16 11:26 Room Air 08/24/16 09:10 21 08/24/16 08:20 2.0 Intake and Output 08/23/16 08/23/16 08/24/16 15:00 23:00 07:00 Intake Total 612.5 ml 537.5 ml Output Total 350 ml 200 ml Balance 262.5 ml 337.5 ml Exam Constitutional: frail, other (arousable) Head: atraumatic, normocephalic Eyes: EOMI, PERRL, nl conjunctiva ENMT: nl external ears & nose, nl lips & teeth, nl nasal mucosa & septum Neck: non-tender, supple Respiratory: clear to auscultation, normal air movement Cardiovascular: nl pulses, regular rate and rhythm, No S3, No S4, No bruits, No diastolic murmur, No edema, No gallop, No irregular rhythm Gastrointestinal: nl liver, spleen, non-tender, soft Musculoskeletal: nl extremities to inspection Extremities: normal pulses, No calf tenderness, No clubbing, No cyanosis, No edema, No other, No palpable cord, No pitting pedal edema, No tenderness Neurological: FLUTE GRINDER II-XII intact, less confused, lethargic Results Result Diagram: 08/24/1654408/24/1645 Results 24 hrs Laboratory Tests Test 08/24/16 05:45 Anion Gap 10 Basophils # 0.0 Basophils % 0.1 Blood Urea Nitrogen 12 Calcium Level 7.7 L Carbon Dioxide Level 23 Chloride Level 114 H Creatinine 0.58 Eosinophils # 0.0 Eosinophils % 0.1 Glucose Level 93 Hematocrit 35.8 L Hemoglobin 11.9 L Lymphocytes # 0.7 L Lymphocytes % 9.9 L Magnesium Level 2.4 Mean Corpuscular Hemoglobin 29.6 Mean Corpuscular Hemoglobin Concent 33.2 Mean Corpuscular Volume 89.1 Mean Platelet Volume 9.5 Monocytes # 0.3 Monocytes % 4.6 Neutrophils # 6.1 Neutrophils % 84.5 H Nucleated Red Blood Cells # 0.0 Nucleated Red Blood Cells % 0.0 Platelet Count 205 # Potassium Level 4.1 Red Blood Count 4.02 L Red Cell Distribution Width 20.8 H Sodium Level 143 White Blood Count 7.2 Medications Medications Current Medications Ondansetron HCl (Zofran Inj) 4 mg Q6H PRN IV NAUSEA AND/OR VOMITING Last administered on 08/22/16 05:31; Admin Dose 4 MG; Start 08/09/16 at 07:00 Acetaminophen (Tylenol Supp) 650 mg Q6H PRN IN PAIN LEVEL 1-3 OR FEVER; Start 08/09/16 at 07:00 Morphine Sulfate (morphine) 2 mg Q4H PRN IV PAIN LEVEL 7-10 Last administered on 08/15/16 00:31; Admin Dose 2 MG; Start 08/09/16 at 07:00 Mesalamine (Delzicol Dr) 800 mg BID PO Last administered on 08/22/16 09:04; Admin Dose 800 MG; Start 08/09/16 at 09:00 Efavirenz (Sustiva) 600 mg DAILY PO Last administered on 08/22/16 09:04; Admin Dose 600 MG; Start 08/12/16 at 14:00 Emtricitabine/ Tenofovir (Truvada) 1 tab DAILY PO Last administered on 09:05; Admin Dose 1 TAB; Start 08/12/16 at 14:00 Collagenase (Santyl) 1 applic DAILY TOP Last administered on 08/21/16 10:46; Admin Dose 1 APPLIC; Start 08/12/16 at 14:00 Al Hydrox/Mg Hydrox/Simethicone (Mag-Al Plus) 30 ml Q6H PRN PO GASTROINTESTINAL UPSET Last administered on 08/12/16 15:43; Admin Dose 30 ML; Start 08/12/16 at 15:30 Mirtazapine (Remeron) 15 mg HS PO Last administered on 08/21/16 21:10; Admin Dose 15 MG; Start 08/12/16 at 21:00 Acetaminophen/ Hydrocodone Bitart ([place] (5/325)) 1 tab Q6H PRN PO PAIN Last administered on 08/15/16 22:36; Admin Dose 1 TAB; Start 08/13/16 at 23:30 IV Flush (NS 10 ml) 10 ml PRN PRN IV IV PROTOCOL; Start 08/14/16 at 17:00 Lactobacillus Acidoph/Bulgaricus (Floranex) 1 tab TID PO Last administered on 09:05; Admin Dose 1 TAB; Start 08/15/16 at 21:00 Megestrol Acetate (Megace Susp) 400 mg BID PO Last administered on 08/22/16 09: 04; Admin Dose 400 MG; Start 08/17/16 at 10:30; Stop 09/16/16 at 10:29 Megestrol Acetate (Megace) 40 mg DAILY PO Last administered on 08/22/16 09:04; Admin Dose 40 MG; Start 08/19/16 at 15:00 Lorazepam 1 mg 1 mg Q3 PRN IV ANXIETY Last administered on 08/20/16 22:26; Admin Dose 1 MG; Start 08/20/16 at 22:30 Piperacillin Sod/ Tazobactam Sod (Zosyn 3.375gm/ 100 ml (Pmx)) 100 ml @ 200 mls /hr Q8 IVPB Last administered on 08/24/16t 05:44; Admin Dose 200 MLS/HR; Start 08/21/16 at 18:30 Pantoprazole (Protonix Tab) 40 mg BID@06,18 PO ; Start 08/24/16 at 18:00 JESUS RUIZ Aug 24, 2016 13:30
[2016-08-24] MEDS: DEXTROSE 5%-0.45% NACL 1,000 ML IV SCH (14:58)
--- NOTE | 2016-08-24 15:41 | CONS ---
Date/Time of Note Date/Time of Note DATE: 08/24/16 TIME: 15:39 Assessment/Plan Assessment/Plan Chief Complaint/Hosp Course SUBJECTIVE: Awake, confused, afebrile, nad ANTIMICROBIALS: 2. Sustiva. 3. Truvada. 6. Zosyn PHYSICAL EXAMINATION: GENERAL: This is a cachectic, ill-appearing, middle-aged woman who is awake, lying comfortably in bed. HEENT: Head atraumatic, normocephalic. Sclerae anicteric. Buccal mucosa dry. NECK: Supple, trachea midline. CHEST: Rise symmetrical. Breath sounds diminished to bases. HEART: S1, S2. ABDOMEN: Soft. Bowel tones present. EXTREMITIES: With bilateral hand edema and cyanosis of the fingers and wrists. SKIN: Severe anasarca. ASSESSMENT: 1. Acute GIB===> s/p EGD 2. HCAP, poss aspiration 3. Human immunodeficiency virus positive with a history of noncompliance with human immunodeficiency virus medications. A CD4 count 392. 4. 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 Cultures growing citrobacter and Proteus mirabilis. 4. Cachexia. 5. Hx of Inocencia esophagitis. 6. Anasarca 2 to protein calorie malnutrition. 7. Hepatitis C virus. 8. Right upper extremity thrombosis, status post PICC line removed. 9. History of substance abuse. PLAN: Clinically stable, continue present care, abx, f/u GI rec-s, consider swallow eval. Prognosis guarded DW staff Problems: Consultation Date/Type/Reason Admit Date/Time Aug 09, 2016 at 01:59 Initial Consult Date 08/09/16 Type of Consultation: ID Exam/Review of Systems Vital Signs Vitals Vital Signs Date Time Temp Pulse Resp B/P Pulse Ox O2 Delivery O2 Flow Rate FiO2 08/24/16 14:30 77 19 96 21 08/24/16 12:18 97.2 115/81 08/24/16 11:26 Room Air 08/24/16 08:20 2.0 Intake and Output 08/23/16 08/23/16 08/24/16 15:00 23:00 07:00 Intake Total 612.5 ml 537.5 ml Output Total 350 ml 200 ml Balance 262.5 ml 337.5 ml Results Result Diagram: 08/24/16 0545 08/24/16 0545 Results 24 hrs Laboratory Tests Test 08/24/16 05:45 Anion Gap 10 Basophils # 0.0 Basophils % 0.1 Blood Urea Nitrogen 12 Calcium Level 7.7 L Carbon Dioxide Level 23 Chloride Level 114 H Creatinine 0.58 Eosinophils # 0.0 Eosinophils % 0.1 Glucose Level 93 Hematocrit 35.8 L Hemoglobin 11.9 L Lymphocytes # 0.7 L Lymphocytes % 9.9 L Magnesium Level 2.4 Mean Corpuscular Hemoglobin 29.6 Mean Corpuscular Hemoglobin Concent 33.2 Mean Corpuscular Volume 89.1 Mean Platelet Volume 9.5 Monocytes # 0.3 Monocytes % 4.6 Neutrophils # 6.1 Neutrophils % 84.5 H Nucleated Red Blood Cells # 0.0 Nucleated Red Blood Cells % 0.0 Platelet Count 205 # Potassium Level 4.1 Red Blood Count 4.02 L Red Cell Distribution Width 20.8 H Sodium Level 143 White Blood Count 7.2 Medications Medications Current Medications Ondansetron HCl (Zofran Inj) 4 mg Q6H PRN IV NAUSEA AND/OR VOMITING Last administered on 08/22/16 05:31; Admin Dose 4 MG; Start 08/09/16 at 07:00 Acetaminophen (Tylenol Supp) 650 mg Q6H PRN [place] PAIN LEVEL 1-3 OR FEVER; Start 08/09/16 at 07:00 Morphine Sulfate (morphine) 2 mg Q4H PRN IV PAIN LEVEL 7-10 Last administered on 08/15/16 00:31; Admin Dose 2 MG; Start 08/09/16 at 07:00 Mesalamine (Delzicol Dr) 800 mg BID PO Last administered on 08/22/16 09:04; Admin Dose 800 MG; Start 08/09/16 at 09:00 Efavirenz (Sustiva) 600 mg DAILY PO Last administered on 08/22/16 09:04; Admin Dose 600 MG; Start 08/12/16 at 14:00 Emtricitabine/ Tenofovir (Truvada) 1 tab DAILY PO Last administered on 09:05; Admin Dose 1 TAB; Start 08/12/16 at 14:00 Collagenase (Santyl) 1 applic DAILY TOP Last administered on 08/21/16 10:46; Admin Dose 1 APPLIC; Start 08/12/16 at 14:00 Al Hydrox/Mg Hydrox/Simethicone (Mag-Al Plus) 30 ml Q6H PRN PO GASTROINTESTINAL UPSET Last administered on 08/12/16 15:43; Admin Dose 30 ML; Start 08/12/16 at 15:30 Mirtazapine (Remeron) 15 mg HS PO Last administered on 08/21/16 21:10; Admin Dose 15 MG; Start 08/12/16 at 21:00 Acetaminophen/ Hydrocodone Bitart ([place] (5/325)) 1 tab Q6H PRN PO PAIN Last administered on 08/15/16 22:36; Admin Dose 1 TAB; Start 08/13/16 at 23:30 IV Flush (NS 10 ml) 10 ml PRN PRN IV IV PROTOCOL; Start 08/14/16 at 17:00 Lactobacillus Acidoph/Bulgaricus (Floranex) 1 tab TID PO Last administered on 09:05; Admin Dose 1 TAB; Start 08/15/16 at 21:00 Megestrol Acetate (Megace Susp) 400 mg BID PO Last administered on 08/22/16 09: 04; Admin Dose 400 MG; Start 08/17/16 at 10:30; Stop 09/16/16 at 10:29 Megestrol Acetate (Megace) 40 mg DAILY PO Last administered on 08/22/16 09:04; Admin Dose 40 MG; Start 08/19/16 at 15:00 Lorazepam 1 mg 1 mg Q3 PRN IV ANXIETY Last administered on 08/20/16 22:26; Admin Dose 1 MG; Start 08/20/16 at 22:30 Piperacillin Sod/ Tazobactam Sod (Zosyn 3.375gm/ 100 ml (Pmx)) 100 ml @ 200 mls /hr Q8 IVPB Last administered on 08/24/16 14:24; Admin Dose 200 MLS/HR; Start 08/21/16 at 18:30 Pantoprazole 40 mg 40 mg BID@06,18 PO ; Start 08/24/16 at 18:00 Dextrose/Sodium Chloride (D5-1/2ns) 1,000 ml @ 50 mls/hr Q20H IV Last administered on 08/24/16 14:58; Admin Dose 50 MLS/HR; Start 08/24/16 at 15:00 AGUILA BURGOS NP Aug 24, 2016 15:41
[2016-08-24] MEDS: PANTOPRAZOLE (EC) 40 MG TAB PO SCH (17:12)
[2016-08-24] MEDS: ONDANSETRON 4 MG INJ IV PRN (17:49)
[2016-08-24] MEDS: MIRTAZAPINE 15 MG TAB PO SCH (21:00)
[2016-08-24] MEDS: SUCRALFATE 1 GM TAB PO SCH (21:00)
[2016-08-25] VITALS (12 sets, daily range): BP systolic 102–138; BP diastolic 62–97; PULSE 75–110; RESP 18–20
[2016-08-25] MEDS: ALBUTEROL/IPRATROPIUM (NEB) 3 ML AMP HHN SCH ×6 (01:10→21:04)
[2016-08-25] MEDS: PANTOPRAZOLE (EC) 40 MG TAB PO SCH ×2 (04:55→17:14)
[2016-08-25] MEDS ORDERED: NITROGLYCERIN (SL) 0.4 MG TAB SL PRN (05:30)
[2016-08-25] MEDS ORDERED: SOD CHLORIDE 0.9% 250 ML IV ONE (05:30)
[2016-08-25] MEDS: PIPER-TAZO 3.375 GM IV (PMX) 100 ML IVPB SCH ×3 (05:36→21:56)
[2016-08-25 06:46] LABS: ADD SCAN DIFF NO
[2016-08-25 06:51] LABS: ABNORMAL IP MESSAGE 1; EOSINOPHILS % 0.3 % (0.0-7.0); HEMATOCRIT 33.9 % (37.0-47.0); HEMOGLOBIN 11.2 g/dl (12.0-16.0); LYMPHOCYTES # 0.5 10^3/ul (0.8-2.9); LYMPHOCYTES % 7.2 % (15.0-51.0); MEAN CORPUSCULAR HEMOGLOBIN 29.7 pg (29.0-33.0); MEAN CORPUSCULAR VOLUME 89.9 fl (82.0-101.0); MEAN PLATELET VOLUME 9.3 fl (7.4-10.4); MONOCYTE # 0.2 10^3/ul (0.3-0.9); MONOCYTES % 3.2 % (0.0-11.0); NEUTROPHIL # 5.9 10^3/ul (1.6-7.5); NEUTROPHILS % 88.5 % (39.0-77.0); PLATELET COUNT 144 10^3/UL (140-415); RED BLOOD COUNT 3.77 10^6/ul (4.20-5.40); RED CELL DISTRIBUTION WIDTH 20.3 % (11.5-14.5); WHITE BLOOD COUNT 6.6 10^3/ul (4.8-10.8)
[2016-08-25] MEDS ORDERED: morphine 2 MG INJ IV PRN (07:00)
[2016-08-25 07:35] LABS: CALCIUM 7.4 mg/dl (8.4-10.2); CREATININE 0.53 mg/dl (0.44-1.00)
[2016-08-25] MEDS: MEGESTROL (40 MG/ML) 10ML CUP PO SCH ×3 (09:00→21:55)
[2016-08-25] MEDS: LACTOBACILLUS CHEW TAB PO SCH ×3 (09:00→21:55)
[2016-08-25] MEDS: SUCRALFATE 1 GM TAB PO SCH ×4 (09:00→21:55)
[2016-08-25] MEDS: EFAVIRENZ 600 MG TAB PO SCH ×2 (09:00→12:55)
[2016-08-25] MEDS: EMTRICITABINE/TENOFOVIR TAB PO SCH ×2 (09:00→12:55)
[2016-08-25] MEDS: MEGESTROL 40 MG TAB PO SCH (09:00)
[2016-08-25] MEDS: MESALAMINE (EC) 400 MG CAP PO SCH ×3 (09:00→22:00)
[2016-08-25] MEDS: COLLAGENASE 30 GM TUBE TOP SCH (09:15)
--- NOTE | 2016-08-25 10:41 | CONS ---
Date/Time of Note Date/Time of Note DATE: 08/25/16 TIME: 10:35 Assessment/Plan Assessment/Plan Chief Complaint/Hosp Course Impression: 1. Symptomatic anemia: h/h stable 2. Severe protein calorie malnutrition: passed swallow eval. 3. hypokalemia: refractory and down-trending again. 4. Pneumonia. 5. Altered mental status: improved 6. multiple ulcers in the stomach Recommendation: 1. f/u biopsy results to r/o H. pylori and opportunistic infection such as CMV 2. repleting potassium per primary 3. start full liquid diet and advance diet as tolerated. 4. change IV protonix to PO 5. Dr. Carrasco to resume care tomorrow. Problems: Consultation Date/Type/Reason Admit Date/Time Aug 09, 2016 at 01:59 Initial Consult Date 08/09/16 Type of Consultation: GI 24 HR Interval Summary Free Text/Dictation passed swallow eval, no abdominal pain, awake and answering questions, no n/v. Constitutional: improved Exam/Review of Systems Vital Signs Vitals Vital Signs Date Time Temp Pulse Resp B/P Pulse Ox O2 Delivery O2 Flow Rate FiO2 08/25/16 08:56 98 08/25/16 08:00 98.8 20 111/81 98 08/25/16 04:14 2.0 08/25/16 04:14 Nasal Cannula 08/24/16 14:30 21 Intake and Output 08/24/16 08/24/16 08/25/16 15:00 23:00 07:00 Intake Total 20 ml 800 ml Output Total 1700 ml 250 ml Balance 20 ml -1700 ml 550 ml Exam Constitutional: alert, well developed Psych: nl mood/affect, no complaints Head: atraumatic, normocephalic Eyes: EOMI, nl conjunctiva, nl lids, nl sclera ENMT: mucosa pink and moist, nl external ears & nose, nl lips & teeth, nl nasal mucosa & septum Neck: non-tender, supple Respiratory: clear to auscultation, normal air movement Cardiovascular: nl pulses, regular rate and rhythm Gastrointestinal: bowel sounds, non-tender, soft Results Result Diagram: 08/25/16 0620 08/25/16 0620 Results 24 hrs Laboratory Tests Test 08/25/16 06:20 Anion Gap 9 Basophils # 0.0 Basophils % 0.0 Blood Urea Nitrogen 8 Calcium Level 7.4 L Carbon Dioxide Level 26 Chloride Level 110 Creatinine 0.53 Eosinophils # 0.0 Eosinophils % 0.3 Glucose Level 98 Hematocrit 33.9 L Hemoglobin 11.2 L Lymphocytes # 0.5 L Lymphocytes % 7.2 L Mean Corpuscular Hemoglobin 29.7 Mean Corpuscular Hemoglobin Concent 33.0 Mean Corpuscular Volume 89.9 Mean Platelet Volume 9.3 Monocytes # 0.2 L Monocytes % 3.2 Neutrophils # 5.9 Neutrophils % 88.5 H Nucleated Red Blood Cells # 0.0 Nucleated Red Blood Cells % 0.0 Platelet Count 144 # Potassium Level 3.0 L Red Blood Count 3.77 L Red Cell Distribution Width 20.3 H Sodium Level 142 White Blood Count 6.6 Medications Medications Current Medications Ondansetron HCl (Zofran Inj) 4 mg Q6H PRN IV NAUSEA AND/OR VOMITING Last administered on 08/24/16 17:49; Admin Dose 4 MG; Start 08/09/16 at 07:00 Acetaminophen (Tylenol Supp) 650 mg Q6H PRN [place] PAIN LEVEL 1-3 OR FEVER; Start 08/09/16 at 07:00 Mesalamine (Delzicol Dr) 800 mg BID PO Last administered on 08/22/16 09:04; Admin Dose 800 MG; Start 08/09/16 at 09:00 Efavirenz (Sustiva) 600 mg DAILY PO Last administered on 08/22/16 09:04; Admin Dose 600 MG; Start 08/12/16 at 14:00 Emtricitabine/ Tenofovir (Truvada) 1 tab DAILY PO Last administered on 09:05; Admin Dose 1 TAB; Start 08/12/16 at 14:00 Collagenase (Santyl) 1 applic DAILY TOP Last administered on 08/25/16 09:15; Admin Dose 1 APPLIC; Start 08/12/16 at 14:00 Al Hydrox/Mg Hydrox/Simethicone (Mag-Al Plus) 30 ml Q6H PRN PO GASTROINTESTINAL UPSET Last administered on 08/12/16 15:43; Admin Dose 30 ML; Start 08/12/16 at 15:30 Mirtazapine (Remeron) 15 mg HS PO Last administered on 08/21/16 21:10; Admin Dose 15 MG; Start 08/12/16 at 21:00 Acetaminophen/ Hydrocodone Bitart ([place] (5/325)) 1 tab Q6H PRN PO PAIN Last administered on 08/15/16 22:36; Admin Dose 1 TAB; Start 08/13/16 at 23:30 IV Flush (NS 10 ml) 10 ml PRN PRN IV IV PROTOCOL; Start 08/14/16 at 17:00 Lactobacillus Acidoph/Bulgaricus (Floranex) 1 tab TID PO Last administered on 09:05; Admin Dose 1 TAB; Start 08/15/16 at 21:00 Megestrol Acetate (Megace Susp) 400 mg BID PO Last administered on 08/22/16 09: 04; Admin Dose 400 MG; Start 08/17/16 at 10:30; Stop 09/16/16 at 10:29 Megestrol Acetate (Megace) 40 mg DAILY PO Last administered on 08/22/16 09:04; Admin Dose 40 MG; Start 08/19/16 at 15:00 Lorazepam 1 mg 1 mg Q3 PRN IV ANXIETY Last administered on 08/20/16 22:26; Admin Dose 1 MG; Start 08/20/16 at 22:30 Piperacillin Sod/ Tazobactam Sod (Zosyn 3.375gm/ 100 ml (Pmx)) 100 ml @ 200 mls /hr Q8 IVPB Last administered on 08/25/16 05:36; Admin Dose 200 MLS/HR; Start 08/21/16 at 18:30 Pantoprazole 40 mg 40 mg BID@06,18 PO ; Start 08/24/16 at 18:00 Dextrose/Sodium Chloride (D5-1/2ns) 1,000 ml @ 50 mls/hr Q20H IV Last administered on 08/24/16 14:58; Admin Dose 50 MLS/HR; Start 08/24/16 at 15:00 Sucralfate (Carafate) 1 gm QID PO ; Start 08/24/16 at 21:00 Morphine Sulfate (morphine) 2 mg Q4H PRN IV PAIN; Start 08/25/16 at 05:30 GOMEZ MARK MD Aug 25, 2016 10:41
[2016-08-25] MEDS: DEXTROSE 5%-0.45% NACL 1,000 ML IV SCH ×2 (11:00→12:54)
--- NOTE | 2016-08-25 12:27 | CONS ---
Date/Time of Note Date/Time of Note DATE: 08/25/16 TIME: 12:26 Assessment/Plan Assessment/Plan Chief Complaint/Hosp Course SUBJECTIVE: No acute changes, afebrile, sleeping, nad, passed swallow eval ANTIMICROBIALS: 2. Sustiva. 3. Truvada. 6. Zosyn PHYSICAL EXAMINATION: GENERAL: This is a cachectic, ill-appearing, middle-aged woman who is awake, lying comfortably in bed. HEENT: Head atraumatic, normocephalic. Sclerae anicteric. Buccal mucosa dry. NECK: Supple, trachea midline. CHEST: Rise symmetrical. Breath sounds diminished to bases. HEART: S1, S2. ABDOMEN: Soft. Bowel tones present. EXTREMITIES: With bilateral hand edema and cyanosis of the fingers and wrists. SKIN: Severe anasarca. ASSESSMENT: 1. S/p GIB===> EGD noted 2. HCAP, poss aspiration 3. Human immunodeficiency virus positive with a history of noncompliance with human immunodeficiency virus medications. A CD4 count 392. 4. 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 Cultures growing citrobacter and Proteus mirabilis. 4. Cachexia. 5. Hx of Inocencia esophagitis. 6. Anasarca 2 to protein calorie malnutrition. 7. Hepatitis C virus. 8. Right upper extremity thrombosis, status post PICC line removed. 9. History of substance abuse. PLAN: Clinically stable, continue present care, abx, f/u GI rec-s. Prognosis guarded. Aspiration precautions DW staff Problems: Consultation Date/Type/Reason Admit Date/Time Aug 09, 2016 at 01:59 Initial Consult Date 08/09/16 Type of Consultation: ID Exam/Review of Systems Vital Signs Vitals Vital Signs Date Time Temp Pulse Resp B/P Pulse Ox O2 Delivery O2 Flow Rate FiO2 08/25/16 08:56 98 08/25/16 08:00 98.8 20 111/81 98 08/25/16 04:14 2.0 08/25/16 04:14 Nasal Cannula 08/24/16 14:30 21 Intake and Output 08/24/16 08/24/16 08/25/16 15:00 23:00 07:00 Intake Total 20 ml 800 ml Output Total 1700 ml 250 ml Balance 20 ml -1700 ml 550 ml Results Result Diagram: 08/25/16 0620 08/25/16 0620 Results 24 hrs Laboratory Tests Test 08/25/16 06:20 Anion Gap 9 Basophils # 0.0 Basophils % 0.0 Blood Urea Nitrogen 8 Calcium Level 7.4 L Carbon Dioxide Level 26 Chloride Level 110 Creatinine 0.53 Eosinophils # 0.0 Eosinophils % 0.3 Glucose Level 98 Hematocrit 33.9 L Hemoglobin 11.2 L Lymphocytes # 0.5 L Lymphocytes % 7.2 L Mean Corpuscular Hemoglobin 29.7 Mean Corpuscular Hemoglobin Concent 33.0 Mean Corpuscular Volume 89.9 Mean Platelet Volume 9.3 Monocytes # 0.2 L Monocytes % 3.2 Neutrophils # 5.9 Neutrophils % 88.5 H Nucleated Red Blood Cells # 0.0 Nucleated Red Blood Cells % 0.0 Platelet Count 144 # Potassium Level 3.0 L Red Blood Count 3.77 L Red Cell Distribution Width 20.3 H Sodium Level 142 White Blood Count 6.6 Medications Medications Current Medications Ondansetron HCl (Zofran Inj) 4 mg Q6H PRN IV NAUSEA AND/OR VOMITING Last administered on 08/24/16 17:49; Admin Dose 4 MG; Start 08/09/16 at 07:00 Acetaminophen (Tylenol Supp) 650 mg Q6H PRN [place] PAIN LEVEL 1-3 OR FEVER; Start 08/09/16 at 07:00 Mesalamine (Delzicol Dr) 800 mg BID PO Last administered on 08/22/16 09:04; Admin Dose 800 MG; Start 08/09/16 at 09:00 Efavirenz (Sustiva) 600 mg DAILY PO Last administered on 08/22/16 09:04; Admin Dose 600 MG; Start 08/12/16 at 14:00 Emtricitabine/ Tenofovir (Truvada) 1 tab DAILY PO Last administered on 09:05; Admin Dose 1 TAB; Start 08/12/16 at 14:00 Collagenase (Santyl) 1 applic DAILY TOP Last administered on 08/25/16 09:15; Admin Dose 1 APPLIC; Start 08/12/16 at 14:00 Al Hydrox/Mg Hydrox/Simethicone (Mag-Al Plus) 30 ml Q6H PRN PO GASTROINTESTINAL UPSET Last administered on 08/12/16 15:43; Admin Dose 30 ML; Start 08/12/16 at 15:30 Mirtazapine (Remeron) 15 mg HS PO Last administered on 08/21/16 21:10; Admin Dose 15 MG; Start 08/12/16 at 21:00 Acetaminophen/ Hydrocodone Bitart ([place] (5/325)) 1 tab Q6H PRN PO PAIN Last administered on 08/15/16 22:36; Admin Dose 1 TAB; Start 08/13/16 at 23:30 IV Flush (NS 10 ml) 10 ml PRN PRN IV IV PROTOCOL; Start 08/14/16 at 17:00 Lactobacillus Acidoph/Bulgaricus (Floranex) 1 tab TID PO Last administered on 09:05; Admin Dose 1 TAB; Start 08/15/16 at 21:00 Megestrol Acetate (Megace Susp) 400 mg BID PO Last administered on 08/22/16 09: 04; Admin Dose 400 MG; Start 08/17/16 at 10:30; Stop 09/16/16 at 10:29 Megestrol Acetate (Megace) 40 mg DAILY PO Last administered on 08/22/16 09:04; Admin Dose 40 MG; Start 08/19/16 at 15:00 Lorazepam 1 mg 1 mg Q3 PRN IV ANXIETY Last administered on 08/20/16 22:26; Admin Dose 1 MG; Start 08/20/16 at 22:30 Piperacillin Sod/ Tazobactam Sod 100 ml @ 200 mls/hr Q8 IVPB Last administered on 08/25/16 05:36; Admin Dose 200 MLS/HR; Start 08/21/16 at 18:30 Dextrose/Sodium Chloride (D5-1/2ns) 1,000 ml @ 50 mls/hr Q20H IV Last administered on 08/24/16 14:58; Admin Dose 50 MLS/HR; Start 08/24/16 at 15:00 Sucralfate (Carafate) 1 gm QID PO ; Start 08/24/16 at 21:00 Morphine Sulfate (morphine) 2 mg Q4H PRN IV PAIN; Start 08/25/16 at 05:30 Pantoprazole (Protonix Tab) 40 mg BID@06,18 PO ; Start 08/25/16 at 18:00 AGUILA BURGOS NP Aug 25, 2016 12:27
[2016-08-25] MEDS ORDERED: POTASSIUM CHLORIDE (SR) 20 MEQ TAB PO STA (13:24)
--- NOTE | 2016-08-25 13:32 | PN ---
Date/Time of Note Date/Time of Note DATE: 08/25/16 TIME: 13:28 Assessment/Plan VTE Prophylaxis VTE Prophylaxis Intervention: SCD's Lines/Catheters IV Catheter Type (from Nrs): PICC Line Central line still needed: Yes Urinary Cath still in place: Yes Reason Cath still needed: other (indicate) Assessment/Plan Assessment/Plan 1. Upper GI bleeding from gastric ulcers, on protonix, biopsy indicates fungal infection, on diflucan 2. Pneumonia, aspiration, on zosyn 3. 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 Cultures growing citrobacter and Proteus mirabilis. wound care, follow up with ID 4. Anemia: likely anemia of chronic disease, occult blood negative, no endoscopy at this time per GI 5. Severe protein calorie malnutrition. Past swallow evaluation. Encourage p.o. intake 6. Human immunodeficiency virus positive with noncompliance with her HIV medications, CD4 count on 06/25/2016 was 903, follow up with ID 7. Right axillary, cephalic, basilic, and brachial venous thrombus from PICC line, PICC line removed, on xarelto 8. Fail to thrive, no family, on megace for poor intake, poor prognosis 10. Dementia 11. Hypokalemia, KCL Subjective 24 Hr Interval Summary Free Text/Dictation alert but demented Exam/Review of Systems Vital Signs Vitals Vital Signs Date Time Temp Pulse Resp B/P Pulse Ox O2 Delivery O2 Flow Rate FiO2 08/25/16 13:23 75 08/25/16 08:00 98.8 20 111/81 98 08/25/16 04:14 2.0 08/25/16 04:14 Nasal Cannula 08/24/16 14:30 21 Intake and Output 08/24/16 08/24/16 08/25/16 15:00 23:00 07:00 Intake Total 20 ml 800 ml Output Total 1700 ml 250 ml Balance 20 ml -1700 ml 550 ml Exam Constitutional: alert, frail, other (demented) Head: atraumatic, normocephalic Eyes: EOMI, PERRL, nl conjunctiva, nl lids ENMT: nl external ears & nose, nl lips & teeth, nl nasal mucosa & septum Neck: supple Respiratory: clear to auscultation, normal air movement, No congested cough, No crackles/rales, No diminished breath sounds, No intercostal retraction, No labored breathing, No other, No respirations, No tactile fremitus, No wheezing Cardiovascular: nl pulses, regular rate and rhythm, No S3, No S4, No bruits, No diastolic murmur, No edema, No gallop, No irregular rhythm, No jugular venous distention (JVD), No murmurs/extra sounds, No other, No rub, No systolic murmur Gastrointestinal: nl liver, spleen, soft, No ascites, No bowel sounds, No distended, No firm, No hepatomegaly, No mass , No non-tender, No other, No rebound or guarding, No splenomegaly, No surgical scars, No tender Musculoskeletal: nl extremities to inspection Extremities: normal pulses, No calf tenderness, No clubbing, No cyanosis, No edema, No other, No palpable cord, No pitting pedal edema, No tenderness Neurological: 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 ASSISTANT AND 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 II-XII intact, confused, nl speech Skin: nl turgor Results Result Diagram: 08/25/1661908/25/16 0620 Results 24 hrs Laboratory Tests Test 08/25/16 06:20 Anion Gap 9 Basophils # 0.0 Basophils % 0.0 Blood Urea Nitrogen 8 Calcium Level 7.4 L Carbon Dioxide Level 26 Chloride Level 110 Creatinine 0.53 Eosinophils # 0.0 Eosinophils % 0.3 Glucose Level 98 Hematocrit 33.9 L Hemoglobin 11.2 L Lymphocytes # 0.5 L Lymphocytes % 7.2 L Mean Corpuscular Hemoglobin 29.7 Mean Corpuscular Hemoglobin Concent 33.0 Mean Corpuscular Volume 89.9 Mean Platelet Volume 9.3 Monocytes # 0.2 L Monocytes % 3.2 Neutrophils # 5.9 Neutrophils % 88.5 H Nucleated Red Blood Cells # 0.0 Nucleated Red Blood Cells % 0.0 Platelet Count 144 # Potassium Level 3.0 L Red Blood Count 3.77 L Red Cell Distribution Width 20.3 H Sodium Level 142 White Blood Count 6.6 Medications Medications Current Medications Ondansetron HCl (Zofran Inj) 4 mg Q6H PRN IV NAUSEA AND/OR VOMITING Last administered on 08/24/16 17:49; Admin Dose 4 MG; Start 08/09/16 at 07:00 Acetaminophen (Tylenol Supp) 650 mg Q6H PRN [place] PAIN LEVEL 1-3 OR FEVER; Start 08/09/16 at 07:00 Mesalamine (Delzicol Dr) 800 mg BID PO Last administered on 08/25/16 12:55; Admin Dose 800 MG; Start 08/09/16 at 09:00 Efavirenz (Sustiva) 600 mg DAILY PO Last administered on 08/25/16 12:55; Admin Dose 600 MG; Start 08/12/16 at 14:00 Emtricitabine/ Tenofovir (Truvada) 1 tab DAILY PO Last administered on 12:55; Admin Dose 1 TAB; Start 08/12/16 at 14:00 Collagenase (Santyl) 1 applic DAILY TOP Last administered on 08/25/16 09:15; Admin Dose 1 APPLIC; Start 08/12/16 at 14:00 Al Hydrox/Mg Hydrox/Simethicone (Mag-Al Plus) 30 ml Q6H PRN PO GASTROINTESTINAL UPSET Last administered on 08/12/16 15:43; Admin Dose 30 ML; Start 08/12/16 at 15:30 Mirtazapine (Remeron) 15 mg HS PO Last administered on 08/21/16 21:10; Admin Dose 15 MG; Start 08/12/16 at 21:00 Acetaminophen/ Hydrocodone Bitart ([place] (5/325)) 1 tab Q6H PRN PO PAIN Last administered on 08/15/16 22:36; Admin Dose 1 TAB; Start 08/13/16 at 23:30 IV Flush (NS 10 ml) 10 ml PRN PRN IV IV PROTOCOL; Start 08/14/16 at 17:00 Lactobacillus Acidoph/Bulgaricus (Floranex) 1 tab TID PO Last administered on 12:54; Admin Dose 1 TAB; Start 08/15/16 at 21:00 Megestrol Acetate (Megace Susp) 400 mg BID PO Last administered on 08/25/16 12: 55; Admin Dose 400 MG; Start 08/17/16 at 10:30; Stop 09/16/16 at 10:29 Megestrol Acetate (Megace) 40 mg DAILY PO Last administered on 08/22/16 09:04; Admin Dose 40 MG; Start 08/19/16 at 15:00 Lorazepam 1 mg 1 mg Q3 PRN IV ANXIETY Last administered on 08/20/16 22:26; Admin Dose 1 MG; Start 08/20/16 at 22:30 Piperacillin Sod/ Tazobactam Sod 100 ml @ 200 mls/hr Q8 IVPB Last administered on 08/25/16 13:07; Admin Dose 200 MLS/HR; Start 08/21/16 at 18:30 Dextrose/Sodium Chloride (D5-1/2ns) 1,000 ml @ 50 mls/hr Q20H IV Last administered on 08/25/16 12:54; Admin Dose 50 MLS/HR; Start 08/24/16 at 15:00 Sucralfate (Carafate) 1 gm QID PO Last administered on 08/25/16 12:54; Admin Dose 1 GM; Start 08/24/16 at 21:00 Morphine Sulfate (morphine) 2 mg Q4H PRN IV PAIN; Start 08/25/16 at 05:30 Pantoprazole (Protonix Tab) 40 mg BID@06,18 PO ; Start 08/25/16 at 18:00 AYSHA VILLAREAL MD Aug 25, 2016 13:32
[2016-08-25] MEDS: LORAZEPAM 2 MG INJ IV PRN (16:04)
[2016-08-25] MEDS ORDERED: MESA1.2T2 PO (18:11)
[2016-08-25] MEDS ORDERED: VALG450T3 PO (18:11)
[2016-08-25] MEDS ORDERED: ATOR40TA68 PO (18:11)
[2016-08-25] MEDS: MIRTAZAPINE 15 MG TAB PO SCH (21:55)
[2016-08-26] VITALS (12 sets, daily range): BP systolic 102–114; BP diastolic 75–88; PULSE 93–109; RESP 17–19
[2016-08-26] MEDS: ALBUTEROL/IPRATROPIUM (NEB) 3 ML AMP HHN SCH ×6 (01:48→20:53)
[2016-08-26] MEDS: PIPER-TAZO 3.375 GM IV (PMX) 100 ML IVPB SCH ×3 (05:47→21:25)
[2016-08-26] MEDS: PANTOPRAZOLE (EC) 40 MG TAB PO SCH ×2 (05:47→17:38)
[2016-08-26] MEDS: DEXTROSE 5%-0.45% NACL 1,000 ML IV SCH (07:07)
[2016-08-26 08:07] LABS: ADD SCAN DIFF NO
[2016-08-26 08:14] LABS: ABNORMAL IP MESSAGE 1; BASOPHILS % 0.2 % (0.0-2.0); EOSINOPHILS % 0.4 % (0.0-7.0); HEMATOCRIT 32.6 % (37.0-47.0); HEMOGLOBIN 10.8 g/dl (12.0-16.0); LYMPHOCYTES # 0.4 10^3/ul (0.8-2.9); LYMPHOCYTES % 8.8 % (15.0-51.0); MEAN CORPUSCULAR HEMOGLOBIN 30.1 pg (29.0-33.0); MEAN CORPUSCULAR HGB CONC 33.1 g/dl (32.0-37.0); MEAN CORPUSCULAR VOLUME 90.8 fl (82.0-101.0); MEAN PLATELET VOLUME 9.3 fl (7.4-10.4); MONOCYTE # 0.2 10^3/ul (0.3-0.9); MONOCYTES % 4.4 % (0.0-11.0); NEUTROPHIL # 4.3 10^3/ul (1.6-7.5); NEUTROPHILS % 85.8 % (39.0-77.0); PLATELET COUNT 106 10^3/UL (140-415); RED BLOOD COUNT 3.59 10^6/ul (4.20-5.40); RED CELL DISTRIBUTION WIDTH 19.8 % (11.5-14.5)
[2016-08-26 08:40] LABS: POTASSIUM 3.1 mmol/L (3.5-5.1)
[2016-08-26 08:43] LABS: CREATININE 0.41 mg/dl (0.44-1.00)
[2016-08-26 08:44] LABS: CALCIUM 7.2 mg/dl (8.4-10.2)
[2016-08-26] MEDS: MEGESTROL 40 MG TAB PO SCH (09:00)
[2016-08-26] MEDS: COLLAGENASE 30 GM TUBE TOP SCH (09:00)
[2016-08-26] MEDS: SUCRALFATE 1 GM TAB PO SCH ×4 (09:01→21:27)
[2016-08-26] MEDS: MEGESTROL (40 MG/ML) 10ML CUP PO SCH ×2 (09:01→21:26)
[2016-08-26] MEDS: LACTOBACILLUS CHEW TAB PO SCH ×3 (09:01→21:26)
[2016-08-26] MEDS: EFAVIRENZ 600 MG TAB PO SCH (09:01)
[2016-08-26] MEDS: EMTRICITABINE/TENOFOVIR TAB PO SCH (09:01)
[2016-08-26] MEDS: MESALAMINE (EC) 400 MG CAP PO SCH ×2 (09:01→21:26)
--- NOTE | 2016-08-26 11:58 | CONS ---
Date/Time of Note Date/Time of Note DATE: 08/26/16 TIME: 11:57 Assessment/Plan Assessment/Plan Chief Complaint/Hosp Course SUBJECTIVE: No acute changes, looks comfortable, no fevers ANTIMICROBIALS: 2. Sustiva. 3. Truvada. 6. Zosyn PHYSICAL EXAMINATION: GENERAL: This is a cachectic, ill-appearing, middle-aged woman who is awake, lying comfortably in bed. HEENT: Head atraumatic, normocephalic. Sclerae anicteric. Buccal mucosa dry. NECK: Supple, trachea midline. CHEST: Rise symmetrical. Breath sounds diminished to bases. HEART: S1, S2. ABDOMEN: Soft. Bowel tones present. EXTREMITIES: With bilateral hand edema and cyanosis of the fingers and wrists. SKIN: Severe anasarca. ASSESSMENT: 1. S/p GIB/EGD 2. HCAP, poss aspiration 3. Human immunodeficiency virus positive with a history of noncompliance with human immunodeficiency virus medications. A CD4 count 392. 4. 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 Cultures growing citrobacter and Proteus mirabilis. 4. Cachexia. 5. Hx of Inocencia esophagitis. 6. Anasarca 2 to protein calorie malnutrition. 7. Hepatitis C virus. 8. Right upper extremity thrombosis, status post PICC line removed. 9. History of substance abuse. PLAN: Clinically stable, continue present care, aspiration precaution, f/u cxr, f/u GI rec-s. Prognosis guarded. DW staff Problems: Consultation Date/Type/Reason Admit Date/Time Aug 09, 2016 at 01:59 Initial Consult Date 08/09/16 Type of Consultation: ID Exam/Review of Systems Vital Signs Vitals Vital Signs Date Time Temp Pulse Resp B/P Pulse Ox O2 Delivery O2 Flow Rate FiO2 08/26/16 11:50 98.7 110 17 114/85 100 08/26/16 08:16 Nasal Cannula 2.0 08/25/16 21:05 27 Intake and Output 08/25/16 08/25/16 08/26/16 15:00 23:00 07:00 Intake Total 500 ml 750 ml 400 ml Output Total 2000 ml 1000 ml Balance 500 ml -1250 ml -600 ml Results Result Diagram: 08/26/16 0715 08/26/16 0715 Results 24 hrs Laboratory Tests Test 08/26/16 07:15 Anion Gap 7 L Basophils # 0.0 Basophils % 0.2 Blood Urea Nitrogen 7 Calcium Level 7.2 L Carbon Dioxide Level 25 Chloride Level 111 H Creatinine 0.41 L Eosinophils # 0.0 Eosinophils % 0.4 Glucose Level 79 Hematocrit 32.6 L Hemoglobin 10.8 L Lymphocytes # 0.4 L Lymphocytes % 8.8 L Mean Corpuscular Hemoglobin 30.1 Mean Corpuscular Hemoglobin Concent 33.1 Mean Corpuscular Volume 90.8 Mean Platelet Volume 9.3 Monocytes # 0.2 L Monocytes % 4.4 Neutrophils # 4.3 Neutrophils % 85.8 H Nucleated Red Blood Cells # 0.0 Nucleated Red Blood Cells % 0.0 Platelet Count 106 #L Potassium Level 3.1 L Red Blood Count 3.59 L Red Cell Distribution Width 19.8 H Sodium Level 140 White Blood Count 5.0 # Medications Medications Current Medications Ondansetron HCl (Zofran Inj) 4 mg Q6H PRN IV NAUSEA AND/OR VOMITING Last administered on 08/24/16 17:49; Admin Dose 4 MG; Start 08/09/16 at 07:00 Acetaminophen (Tylenol Supp) 650 mg Q6H PRN [place] PAIN LEVEL 1-3 OR FEVER; Start 08/09/16 at 07:00 Mesalamine (Delzicol Dr) 800 mg BID PO Last administered on 08/26/16 09:01; Admin Dose 800 MG; Start 08/09/16 at 09:00 Efavirenz (Sustiva) 600 mg DAILY PO Last administered on 08/26/16 09:01; Admin Dose 600 MG; Start 08/12/16 at 14:00 Emtricitabine/ Tenofovir (Truvada) 1 tab DAILY PO Last administered on 09:01; Admin Dose 1 TAB; Start 08/12/16 at 14:00 Collagenase (Santyl) 1 applic DAILY TOP Last administered on 08/25/16 09:15; Admin Dose 1 APPLIC; Start 08/12/16 at 14:00 Al Hydrox/Mg Hydrox/Simethicone (Mag-Al Plus) 30 ml Q6H PRN PO GASTROINTESTINAL UPSET Last administered on 08/12/16 15:43; Admin Dose 30 ML; Start 08/12/16 at 15:30 Mirtazapine (Remeron) 15 mg HS PO Last administered on 08/25/16 21:55; Admin Dose 15 MG; Start 08/12/16 at 21:00 Acetaminophen/ Hydrocodone Bitart ([place] (5/325)) 1 tab Q6H PRN PO PAIN Last administered on 08/15/16 22:36; Admin Dose 1 TAB; Start 08/13/16 at 23:30 IV Flush (NS 10 ml) 10 ml PRN PRN IV IV PROTOCOL; Start 08/14/16 at 17:00 Lactobacillus Acidoph/Bulgaricus (Floranex) 1 tab TID PO Last administered on 09:01; Admin Dose 1 TAB; Start 08/15/16 at 21:00 Megestrol Acetate (Megace Susp) 400 mg BID PO Last administered on 08/26/16 09: 01; Admin Dose 400 MG; Start 08/17/16 at 10:30; Stop 09/16/16 at 10:29 Megestrol Acetate (Megace) 40 mg DAILY PO Last administered on 08/22/16 09:04; Admin Dose 40 MG; Start 08/19/16 at 15:00 Lorazepam 1 mg 1 mg Q3 PRN IV ANXIETY Last administered on 08/25/16 16:04; Admin Dose 1 MG; Start 08/20/16 at 22:30 Piperacillin Sod/ Tazobactam Sod 100 ml @ 200 mls/hr Q8 IVPB Last administered on 08/26/16 05:47; Admin Dose 200 MLS/HR; Start 08/21/16 at 18:30 Dextrose/Sodium Chloride (D5-1/2ns) 1,000 ml @ 50 mls/hr Q20H IV Last administered on 08/26/16 07:07; Admin Dose 50 MLS/HR; Start 08/24/16 at 15:00 Sucralfate (Carafate) 1 gm QID PO Last administered on 08/26/16 09:01; Admin Dose 1 GM; Start 08/24/16 at 21:00 Morphine Sulfate (morphine) 2 mg Q4H PRN IV PAIN; Start 08/25/16 at 05:30 Pantoprazole (Protonix Tab) 40 mg BID@06,18 PO Last administered on 08/26/16 05 :47; Admin Dose 40 MG; Start 08/25/16 at 18:00 AGUILA BURGOS NP Aug 26, 2016 11:58
[2016-08-26] MEDS ORDERED: EFV600C PO (13:38)
[2016-08-26] MEDS ORDERED: PANT40TA4 PO (13:38)
[2016-08-26] MEDS ORDERED: TRUV PO (13:38)
[2016-08-26] MEDS ORDERED: SUCR1TAB27 PO (13:38)
[2016-08-26] MEDS ORDERED: POTASSIUM CHLORIDE (SR) 20 MEQ TAB PO STA (15:22)
--- NOTE | 2016-08-26 15:46 | CONS ---
Date/Time of Note Date/Time of Note DATE: 08/26/16 TIME: 15:43 Assessment/Plan Assessment/Plan Additional Assessment/Plan Impression: 1. Symptomatic anemia: h/h stable 2. Severe protein calorie malnutrition: passed swallow eval. 3. hypokalemia: refractory and down-trending again. 4. Pneumonia. 5. Altered mental status: improved 6. multiple ulcers in the stomach 7. EGD pathology negative for malignancy, dysplasia, H. pylori, and infectious organism Recommendation: 1. repleting potassium per primary 2. start full liquid diet and advance diet as tolerated. 3. Continue PPI twice daily Further recommendations pending clinical course Patient seen in collaboration with Dr. Carrasco Consultation Date/Type/Reason Admit Date/Time Aug 09, 2016 at 01:59 Initial Consult Date 08/09/16 Type of Consultation: Gastroenterology 24 HR Interval Summary Free Text/Dictation Pathology negative for dysplasia, malignancy, H. pylori, infectious organism Hemoglobin stable Exam/Review of Systems Vital Signs Vitals Vital Signs Date Time Temp Pulse Resp B/P Pulse Ox O2 Delivery O2 Flow Rate FiO2 08/26/16 12:08 109 08/26/16 11:50 98.7 17 114/85 100 08/26/16 08:16 Nasal Cannula 2.0 08/25/16 21:05 27 Intake and Output 08/25/16 08/25/16 08/26/16 15:00 23:00 07:00 Intake Total 500 ml 750 ml 400 ml Output Total 2000 ml 1000 ml Balance 500 ml -1250 ml -600 ml Exam Constitutional: alert, well developed Psych: nl mood/affect, no complaints Head: atraumatic, normocephalic Eyes: EOMI, nl conjunctiva, nl lids, nl sclera ENMT: mucosa pink and moist, nl external ears & nose, nl lips & teeth, nl nasal mucosa & septum Neck: non-tender, supple Respiratory: clear to auscultation, normal air movement Cardiovascular: nl pulses, regular rate and rhythm Gastrointestinal: bowel sounds, non-tender, soft Results Result Diagram: 08/26/16 0715 08/26/16 0715 Results 24 hrs Laboratory Tests Test 08/26/16 07:15 Anion Gap 7 L Basophils # 0.0 Basophils % 0.2 Blood Urea Nitrogen 7 Calcium Level 7.2 L Carbon Dioxide Level 25 Chloride Level 111 H Creatinine 0.41 L Eosinophils # 0.0 Eosinophils % 0.4 Glucose Level 79 Hematocrit 32.6 L Hemoglobin 10.8 L Lymphocytes # 0.4 L Lymphocytes % 8.8 L Mean Corpuscular Hemoglobin 30.1 Mean Corpuscular Hemoglobin Concent 33.1 Mean Corpuscular Volume 90.8 Mean Platelet Volume 9.3 Monocytes # 0.2 L Monocytes % 4.4 Neutrophils # 4.3 Neutrophils % 85.8 H Nucleated Red Blood Cells # 0.0 Nucleated Red Blood Cells % 0.0 Platelet Count 106 #L Potassium Level 3.1 L Red Blood Count 3.59 L Red Cell Distribution Width 19.8 H Sodium Level 140 White Blood Count 5.0 # Medications Medications Current Medications Ondansetron HCl (Zofran Inj) 4 mg Q6H PRN IV NAUSEA AND/OR VOMITING Last administered on 08/24/16 17:49; Admin Dose 4 MG; Start 08/09/16 at 07:00 Acetaminophen (Tylenol Supp) 650 mg Q6H PRN [place] PAIN LEVEL 1-3 OR FEVER; Start 08/09/16 at 07:00 Mesalamine (Delzicol Dr) 800 mg BID PO Last administered on 08/26/16 09:01; Admin Dose 800 MG; Start 08/09/16 at 09:00 Efavirenz (Sustiva) 600 mg DAILY PO Last administered on 08/26/16 09:01; Admin Dose 600 MG; Start 08/12/16 at 14:00 Emtricitabine/ Tenofovir (Truvada) 1 tab DAILY PO Last administered on 09:01; Admin Dose 1 TAB; Start 08/12/16 at 14:00 Collagenase (Santyl) 1 applic DAILY TOP Last administered on 08/25/16 09:15; Admin Dose 1 APPLIC; Start 08/12/16 at 14:00 Al Hydrox/Mg Hydrox/Simethicone (Mag-Al Plus) 30 ml Q6H PRN PO GASTROINTESTINAL UPSET Last administered on 08/12/16 15:43; Admin Dose 30 ML; Start 08/12/16 at 15:30 Mirtazapine (Remeron) 15 mg HS PO Last administered on 08/25/16 21:55; Admin Dose 15 MG; Start 08/12/16 at 21:00 Acetaminophen/ Hydrocodone Bitart ([place] (5/325)) 1 tab Q6H PRN PO PAIN Last administered on 08/15/16 22:36; Admin Dose 1 TAB; Start 08/13/16 at 23:30 IV Flush (NS 10 ml) 10 ml PRN PRN IV IV PROTOCOL; Start 08/14/16 at 17:00 Lactobacillus Acidoph/Bulgaricus (Floranex) 1 tab TID PO Last administered on 14:02; Admin Dose 1 TAB; Start 08/15/16 at 21:00 Megestrol Acetate (Megace Susp) 400 mg BID PO Last administered on 08/26/16 09: 01; Admin Dose 400 MG; Start 08/17/16 at 10:30; Stop 09/16/16 at 10:29 Megestrol Acetate (Megace) 40 mg DAILY PO Last administered on 08/22/16 09:04; Admin Dose 40 MG; Start 08/19/16 at 15:00 Lorazepam 1 mg 1 mg Q3 PRN IV ANXIETY Last administered on 08/25/16 16:04; Admin Dose 1 MG; Start 08/20/16 at 22:30 Piperacillin Sod/ Tazobactam Sod 100 ml @ 200 mls/hr Q8 IVPB Last administered on 08/26/16 14:02; Admin Dose 200 MLS/HR; Start 08/21/16 at 18:30 Dextrose/Sodium Chloride (D5-1/2ns) 1,000 ml @ 50 mls/hr Q20H IV Last administered on 08/26/16 07:07; Admin Dose 50 MLS/HR; Start 08/24/16 at 15:00 Sucralfate (Carafate) 1 gm QID PO Last administered on 08/26/16 14:02; Admin Dose 1 GM; Start 08/24/16 at 21:00 Morphine Sulfate (morphine) 2 mg Q4H PRN IV PAIN; Start 08/25/16 at 05:30 Pantoprazole (Protonix Tab) 40 mg BID@06,18 PO Last administered on 08/26/16 05 :47; Admin Dose 40 MG; Start 08/25/16 at 18:00 MYCHAL COLON Aug 26, 2016 15:46
[2016-08-26] MEDS: MIRTAZAPINE 15 MG TAB PO SCH (21:27)
[2016-08-27] VITALS (12 sets, daily range): BP systolic 105–121; BP diastolic 68–90; PULSE 87–104; RESP 17–20
[2016-08-27] MEDS: ALBUTEROL/IPRATROPIUM (NEB) 3 ML AMP HHN SCH ×6 (01:09→21:11)
--- NOTE | 2016-08-27 01:31 | RADRPT ---
PROCEDURE: XR Chest. CLINICAL INDICATION: Pneumonia. TECHNIQUE: Single frontal view of the chest was obtained COMPARISON: 08/22/2016. FINDINGS: Previously seen nasogastric tube is removed. Large bilateral pleural effusions again seen with part ial collapse of the lung bases. There is no pneumothorax. IMPRESSION: 1. Persistent large bilateral pleural effusions partial collapse of lung bases. 2. Underlying lung base pneumonia may be present the RPTAT: [facility] Physician Dee Date Time Electronically viewed and signed by [place] [facility] Physician on 08/27/2016 01:31 RS/
[2016-08-27] MEDS: DEXTROSE 5%-0.45% NACL 1,000 ML IV SCH ×2 (03:06→23:00)
[2016-08-27] MEDS: PANTOPRAZOLE (EC) 40 MG TAB PO SCH ×2 (05:50→17:32)
[2016-08-27] MEDS: PIPER-TAZO 3.375 GM IV (PMX) 100 ML IVPB SCH (05:50)
[2016-08-27 06:48] LABS: ADD SCAN DIFF NO
[2016-08-27 07:03] LABS: POTASSIUM 3.1 mmol/L (3.5-5.1)
[2016-08-27 07:06] LABS: CREATININE 0.36 mg/dl (0.44-1.00)
[2016-08-27 07:07] LABS: CALCIUM 7.5 mg/dl (8.4-10.2)
[2016-08-27 07:22] LABS: ABNORMAL IP MESSAGE 1; EOSINOPHILS % 0.4 % (0.0-7.0); HEMATOCRIT 34.5 % (37.0-47.0); HEMOGLOBIN 11.1 g/dl (12.0-16.0); LYMPHOCYTES # 0.6 10^3/ul (0.8-2.9); LYMPHOCYTES % 10.4 % (15.0-51.0); MEAN CORPUSCULAR HEMOGLOBIN 29.3 pg (29.0-33.0); MEAN CORPUSCULAR HGB CONC 32.2 g/dl (32.0-37.0); MEAN PLATELET VOLUME 9.7 fl (7.4-10.4); MONOCYTE # 0.3 10^3/ul (0.3-0.9); MONOCYTES % 4.7 % (0.0-11.0); NEUTROPHIL # 4.4 10^3/ul (1.6-7.5); NEUTROPHILS % 83.9 % (39.0-77.0); PLATELET COUNT 70 10^3/UL (140-415); RED BLOOD COUNT 3.79 10^6/ul (4.20-5.40); RED CELL DISTRIBUTION WIDTH 19.5 % (11.5-14.5); WHITE BLOOD COUNT 5.3 10^3/ul (4.8-10.8)
[2016-08-27] MEDS: MEGESTROL (40 MG/ML) 10ML CUP PO SCH ×2 (09:41→22:04)
[2016-08-27] MEDS: MESALAMINE (EC) 400 MG CAP PO SCH ×2 (09:41→22:05)
[2016-08-27] MEDS: EFAVIRENZ 600 MG TAB PO SCH (09:41)
[2016-08-27] MEDS: EMTRICITABINE/TENOFOVIR TAB PO SCH (09:43)
[2016-08-27] MEDS: LACTOBACILLUS CHEW TAB PO SCH ×3 (09:43→22:05)
[2016-08-27] MEDS: SUCRALFATE 1 GM TAB PO SCH ×4 (09:43→22:05)
[2016-08-27] MEDS: COLLAGENASE 30 GM TUBE TOP SCH (09:44)
[2016-08-27] MEDS: MEGESTROL 40 MG TAB PO SCH (09:52)
--- NOTE | 2016-08-27 13:48 | CONS ---
Date/Time of Note Date/Time of Note DATE: 08/27/16 TIME: 13:46 Assessment/Plan Assessment/Plan Chief Complaint/Hosp Course SUBJECTIVE: No acute changes, alert, eating lunch, looks comfortable, no fevers ANTIMICROBIALS: 2. Sustiva. 3. Truvada. 6. Zosyn PHYSICAL EXAMINATION: GENERAL: This is a cachectic, ill-appearing, middle-aged woman who is awake, lying comfortably in bed. HEENT: Head atraumatic, normocephalic. Sclerae anicteric. Buccal mucosa dry. NECK: Supple, trachea midline. CHEST: Rise symmetrical. Breath sounds diminished to bases. HEART: S1, S2. ABDOMEN: Soft. Bowel tones present. EXTREMITIES: With bilateral hand edema and cyanosis of the fingers and wrists. SKIN: Severe anasarca. ASSESSMENT: 1. S/p GIB/EGD 2. HCAP, poss aspiration 3. Human immunodeficiency virus positive with a history of noncompliance with human immunodeficiency virus medications. A CD4 count 392. 4. 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 Cultures growing citrobacter and Proteus mirabilis. 4. Cachexia. 5. Hx of Inocencia esophagitis. 6. Anasarca 2 to protein calorie malnutrition. 7. Hepatitis C virus. 8. Right upper extremity thrombosis, status post PICC line removed. 9. History of substance abuse. PLAN: Clinically stable, continue local wound care, aspiration precaution, change Zosyn to Levaquin. Prognosis guarded. [facility] staff Problems: Consultation Date/Type/Reason Admit Date/Time Aug 09, 2016 at 01:59 Initial Consult Date 08/09/16 Type of Consultation: id Exam/Review of Systems Vital Signs Vitals Vital Signs Date Time Temp Pulse Resp B/P Pulse Ox O2 Delivery O2 Flow Rate FiO2 08/27/16 12:45 104 08/27/16 12:23 98.0 20 105/78 98 08/27/16 08:06 2.0 08/27/16 07:35 Nasal Cannula 08/27/16 05:25 28 Intake and Output 08/26/16 08/26/16 08/27/16 15:00 23:00 07:00 Intake Total 800 ml 280 ml Output Total 900 ml 800 ml Balance -100 ml -520 ml Results Result Diagram: 08/27/16 0600 08/27/16 0600 Results 24 hrs Laboratory Tests Test 08/27/16 06:00 Anion Gap 6 L Basophils # 0.0 Basophils % 0.0 Blood Urea Nitrogen 6 L Calcium Level 7.5 L Carbon Dioxide Level 26 Chloride Level 113 H Creatinine 0.36 L Eosinophils # 0.0 Eosinophils % 0.4 Glucose Level 72 Hematocrit 34.5 L Hemoglobin 11.1 L Lymphocytes # 0.6 L Lymphocytes % 10.4 L Mean Corpuscular Hemoglobin 29.3 Mean Corpuscular Hemoglobin Concent 32.2 Mean Corpuscular Volume 91.0 Mean Platelet Volume 9.7 Monocytes # 0.3 Monocytes % 4.7 Neutrophils # 4.4 Neutrophils % 83.9 H Nucleated Red Blood Cells # 0.0 Nucleated Red Blood Cells % 0.0 Platelet Count 70 #L Potassium Level 3.1 L Red Blood Count 3.79 L Red Cell Distribution Width 19.5 H Sodium Level 142 White Blood Count 5.3 Medications Medications Current Medications Ondansetron HCl (Zofran Inj) 4 mg Q6H PRN IV NAUSEA AND/OR VOMITING Last administered on 08/24/16 17:49; Admin Dose 4 MG; Start 08/09/16 at 07:00 Acetaminophen (Tylenol Supp) 650 mg Q6H PRN [place] PAIN LEVEL 1-3 OR FEVER; Start 08/09/16 at 07:00 Mesalamine (Delzicol Dr) 800 mg BID PO Last administered on 08/27/16 09:41; Admin Dose 800 MG; Start 08/09/16 at 09:00 Efavirenz (Sustiva) 600 mg DAILY PO Last administered on 08/27/16 09:41; Admin Dose 600 MG; Start 08/12/16 at 14:00 Emtricitabine/ Tenofovir (Truvada) 1 tab DAILY PO Last administered on 09:43; Admin Dose 1 TAB; Start 08/12/16 at 14:00 Collagenase (Santyl) 1 applic DAILY TOP Last administered on 08/27/16 09:44; Admin Dose 1 APPLIC; Start 08/12/16 at 14:00 Al Hydrox/Mg Hydrox/Simethicone (Mag-Al Plus) 30 ml Q6H PRN PO GASTROINTESTINAL UPSET Last administered on 08/12/16 15:43; Admin Dose 30 ML; Start 08/12/16 at 15:30 Mirtazapine (Remeron) 15 mg HS PO Last administered on 08/26/16 21:27; Admin Dose 15 MG; Start 08/12/16 at 21:00 Acetaminophen/ Hydrocodone Bitart ([place] (5/325)) 1 tab Q6H PRN PO PAIN Last administered on 08/15/16 22:36; Admin Dose 1 TAB; Start 08/13/16 at 23:30 IV Flush (NS 10 ml) 10 ml PRN PRN IV IV PROTOCOL; Start 08/14/16 at 17:00 Lactobacillus Acidoph/Bulgaricus (Floranex) 1 tab TID PO Last administered on 09:43; Admin Dose 1 TAB; Start 08/15/16 at 21:00 Megestrol Acetate (Megace Susp) 400 mg BID PO Last administered on 08/27/16 09: 41; Admin Dose 400 MG; Start 08/17/16 at 10:30; Stop 09/16/16 at 10:29 Megestrol Acetate (Megace) 40 mg DAILY PO Last administered on 08/27/16 09:52; Admin Dose 40 MG; Start 08/19/16 at 15:00 Lorazepam 1 mg 1 mg Q3 PRN IV ANXIETY Last administered on 08/25/16 16:04; Admin Dose 1 MG; Start 08/20/16 at 22:30 Piperacillin Sod/ Tazobactam Sod 100 ml @ 200 mls/hr Q8 IVPB Last administered on 08/27/16 05:50; Admin Dose 200 MLS/HR; Start 08/21/16 at 18:30 Dextrose/Sodium Chloride (D5-1/2ns) 1,000 ml @ 50 mls/hr Q20H IV Last administered on 08/27/16 03:06; Admin Dose 50 MLS/HR; Start 08/24/16 at 15:00 Sucralfate (Carafate) 1 gm QID PO Last administered on 08/27/16 09:43; Admin Dose 1 GM; Start 08/24/16 at 21:00 Morphine Sulfate (morphine) 2 mg Q4H PRN IV PAIN; Start 08/25/16 at 05:30 Pantoprazole (Protonix Tab) 40 mg BID@06,18 PO Last administered on 08/27/16 05 :50; Admin Dose 40 MG; Start 08/25/16 at 18:00 AGUILA BURGOS NP Aug 27, 2016 13:48
[2016-08-27] MEDS ORDERED: POTASSIUM CHLORIDE (SR) 20 MEQ TAB PO STA (14:05)
--- NOTE | 2016-08-27 14:11 | PN ---
Date/Time of Note Date/Time of Note DATE: 08/27/16 TIME: 14:06 Assessment/Plan VTE Prophylaxis VTE Prophylaxis Intervention: SCD's Lines/Catheters IV Catheter Type (from Nrsg): PICC Line Central line still needed: Yes Urinary Cath still in place: Yes Reason Cath still needed: other (indicate) Assessment/Plan Assessment/Plan 1. Upper GI bleeding from gastric ulcers, on protonix 2. Pneumonia, aspiration, treated 3. Multiple chronic wounds with stage IV sacral decubitus, wound care 4. Anemia: acute on chronic, stable 5. Severe protein calorie malnutrition. Past swallow evaluation. Encourage p.o. intake 6. Human immunodeficiency virus positive with noncompliance with her HIV medications, CD4 count on 06/25/2016 was 903, follow up with ID 7. Right axillary, cephalic, basilic, and brachial venous thrombus from PICC line, PICC line removed 8. Fail to thrive, no family, on megace for poor intake, poor prognosis 10. Dementia 11. Hypokalemia, KCL Subjective 24 Hr Interval Summary Free Text/Dictation full alert and oriented to year(2016), person, and place. She know the president of [employer] is OdilonUbooly Exam/Review of Systems Vital Signs Vitals Vital Signs Date Time Temp Pulse Resp B/P Pulse Ox O2 Delivery O2 Flow Rate FiO2 08/27/16 12:45 104 08/27/16 12:23 98.0 20 105/78 98 08/27/16 08:06 2.0 08/27/16 07:35 Nasal Cannula 08/27/16 05:25 28 Intake and Output 08/26/16 08/26/16 08/27/16 15:00 23:00 07:00 Intake Total 800 ml 280 ml Output Total 900 ml 800 ml Balance -100 ml -520 ml Exam Constitutional: alert, frail, oriented Psych: nl mood/affect, no complaints Head: atraumatic, normocephalic Eyes: EOMI, PERRL, nl conjunctiva, nl lids ENMT: nl external ears & nose, nl lips & teeth Neck: non-tender, supple Respiratory: clear to auscultation, normal air movement, No congested cough, No crackles/rales, No diminished breath sounds, No intercostal retraction, No labored breathing, No other, No respirations, No tactile fremitus, No wheezing Cardiovascular: nl pulses, regular rate and rhythm, No S3, No S4, No bruits, No diastolic murmur, No edema, No gallop, No irregular rhythm, No jugular venous distention (JVD), No murmurs/extra sounds, No other, No rub, No systolic murmur Gastrointestinal: nl liver, spleen, non-tender, soft, No ascites, No bowel sounds, No distended, No firm, No hepatomegaly, No mass , No other, No rebound or guarding, No splenomegaly, No surgical scars, No tender Musculoskeletal: nl extremities to inspection Extremities: normal pulses, other (pressure ulcers), No calf tenderness, No clubbing, No cyanosis, No edema, No palpable cord, No pitting pedal edema, No tenderness Neurological: [employer] II-XII intact, nl mental status, nl speech, nl strength Results Result Diagram: 08/27/16 0600 08/27/16 0600 Results 24 hrs Laboratory Tests Test 08/27/16 06:00 Anion Gap 6 L Basophils # 0.0 Basophils % 0.0 Blood Urea Nitrogen 6 L Calcium Level 7.5 L Carbon Dioxide Level 26 Chloride Level 113 H Creatinine 0.36 L Eosinophils # 0.0 Eosinophils % 0.4 Glucose Level 72 Hematocrit 34.5 L Hemoglobin 11.1 L Lymphocytes # 0.6 L Lymphocytes % 10.4 L Mean Corpuscular Hemoglobin 29.3 Mean Corpuscular Hemoglobin Concent 32.2 Mean Corpuscular Volume 91.0 Mean Platelet Volume 9.7 Monocytes # 0.3 Monocytes % 4.7 Neutrophils # 4.4 Neutrophils % 83.9 H Nucleated Red Blood Cells # 0.0 Nucleated Red Blood Cells % 0.0 Platelet Count 70 #L Potassium Level 3.1 L Red Blood Count 3.79 L Red Cell Distribution Width 19.5 H Sodium Level 142 White Blood Count 5.3 Medications Medications Current Medications Ondansetron HCl (Zofran Inj) 4 mg Q6H PRN IV NAUSEA AND/OR VOMITING Last administered on 08/24/16 17:49; Admin Dose 4 MG; Start 08/09/16 at 07:00 Acetaminophen (Tylenol Supp) 650 mg Q6H PRN [place] PAIN LEVEL 1-3 OR FEVER; Start 08/09/16 at 07:00 Mesalamine (Delzicol Dr) 800 mg BID PO Last administered on 08/27/16 09:41; Admin Dose 800 MG; Start 08/09/16 at 09:00 Efavirenz (Sustiva) 600 mg DAILY PO Last administered on 08/27/16 09:41; Admin Dose 600 MG; Start 08/12/16 at 14:00 Emtricitabine/ Tenofovir (Truvada) 1 tab DAILY PO Last administered on 09:43; Admin Dose 1 TAB; Start 08/12/16 at 14:00 Collagenase (Santyl) 1 applic DAILY TOP Last administered on 08/27/16 09:44; Admin Dose 1 APPLIC; Start 08/12/16 at 14:00 Al Hydrox/Mg Hydrox/Simethicone (Mag-Al Plus) 30 ml Q6H PRN PO GASTROINTESTINAL UPSET Last administered on 08/12/16 15:43; Admin Dose 30 ML; Start 08/12/16 at 15:30 Mirtazapine (Remeron) 15 mg HS PO Last administered on 08/26/16 21:27; Admin Dose 15 MG; Start 08/12/16 at 21:00 Acetaminophen/ Hydrocodone Bitart ([place] (5/325)) 1 tab Q6H PRN PO PAIN Last administered on 08/15/16 22:36; Admin Dose 1 TAB; Start 08/13/16 at 23:30 IV Flush (NS 10 ml) 10 ml PRN PRN IV IV PROTOCOL; Start 08/14/16 at 17:00 Lactobacillus Acidoph/Bulgaricus (Floranex) 1 tab TID PO Last administered on 09:43; Admin Dose 1 TAB; Start 08/15/16 at 21:00 Megestrol Acetate (Megace Susp) 400 mg BID PO Last administered on 08/27/16 09: 41; Admin Dose 400 MG; Start 08/17/16 at 10:30; Stop 09/16/16 at 10:29 Megestrol Acetate (Megace) 40 mg DAILY PO Last administered on 08/27/16 09:52; Admin Dose 40 MG; Start 08/19/16 at 15:00 Lorazepam 1 mg 1 mg Q3 PRN IV ANXIETY Last administered on 08/25/16 16:04; Admin Dose 1 MG; Start 08/20/16 at 22:30 Dextrose/Sodium Chloride (D5-1/2ns) 1,000 ml @ 50 mls/hr Q20H IV Last administered on 08/27/16 03:06; Admin Dose 50 MLS/HR; Start 08/24/16 at 15:00 Sucralfate (Carafate) 1 gm QID PO Last administered on 08/27/16 09:43; Admin Dose 1 GM; Start 08/24/16 at 21:00 Morphine Sulfate (morphine) 2 mg Q4H PRN IV PAIN; Start 08/25/16 at 05:30 Pantoprazole (Protonix Tab) 40 mg BID@06,18 PO Last administered on 08/27/16 05 :50; Admin Dose 40 MG; Start 08/25/16 at 18:00 Levofloxacin (Levaquin) 500 mg DAILY@06 PO ; Start 08/27/16 at 15:00 AYSHA VILLAREAL MD Aug 27, 2016 14:11
[2016-08-27] MEDS: LEVOFLOXACIN 500 MG TAB PO SCH (15:21)
--- NOTE | 2016-08-27 17:20 | CONS ---
DATE OF ADMISSION: 08/09/2016 DATE OF CONSULTATION: 08/27/2016 TYPE OF CONSULTATION: Pulmonary. REASON FOR CONSULTATION: Abnormal chest x-ray. Thank you, ____, for this consultation. HISTORY OF PRESENT ILLNESS: This is a 41-year-old lady with a history of esophagitis, obstructive g astropathy, severe colitis, admitted initially for bloody diarrhea thought to be possibly secondary to Crohn's disease, requiring transfusion of packed red blood cells, GI evaluation and recent endosc opies with biopsy. She has mild hypoxemia with abnormal chest x-ray which showed persistent bilater al pleural effusions and collapsed lung. The patient denies any history of tobacco use, unable to g lexx me further details. PAST MEDICAL HISTORY: As above, plus cirrhosis and HIV. MEDICATIONS: Per chart. ALLERGIES: 1. HYDROCORTISONE. 2. IBUPROFEN. SOCIAL HISTORY: She is a nonsmoker, no alcohol, no history of drug use. FAMILY HISTORY: Noncontributory. SYSTEMS REVIEW: A 12-point review of systems was negative other than that mentioned above. PHYSICAL EXAMINATION: GENERAL: Thin, elderly lady, appears comfortable at rest, no acute distress. VITAL SIGNS: Currently afebrile, pulse is 100, blood pressure 121/86, O2 saturation 98% on 2 L nasa l cannula. NECK: Supple. No JVD or lymphadenopathy. CARDIAC: S1, S2, no added sounds or murmurs. CHEST: Diminished air entry bilaterally. ABDOMEN: Soft, nontender. No guarding or rebound. EXTREMITIES: No cyanosis, clubbing, or edema. NEUROLOGIC: Generalized weakness. LABORATORIES: White count 5.3, hemoglobin 11, INR was 1.32. Chemistry: BUN 6, creatinine 0.36. IMPRESSION AND PLAN: 1. 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 The patient would likely benefit from: Continue diuretics, but given the extent of pleural effusion, she should probably have attempted tho racentesis. I will order a thoracentesis of right lung and then left. If the fluid reaccumulates, she may require further aggressive diuretics. Dictated By: SHADI MCNAMARA/SHILPA Conf#: [id number] DID#: [id number]
[2016-08-27] MEDS: FUROSEMIDE 40 MG INJ IV SCH (17:32)
[2016-08-27] MEDS ORDERED: VITAMIN A & D 5 GM OINT PACKET TOP ONE (19:48)
[2016-08-27] MEDS: MIRTAZAPINE 15 MG TAB PO SCH (22:05)
[2016-08-28] VITALS (11 sets, daily range): BP systolic 107–119; BP diastolic 72–80; PULSE 91–113; RESP 15–19
[2016-08-28] MEDS: ALBUTEROL/IPRATROPIUM (NEB) 3 ML AMP HHN SCH ×6 (01:00→21:27)
[2016-08-28] MEDS: PANTOPRAZOLE (EC) 40 MG TAB PO SCH ×2 (05:49→17:57)
[2016-08-28] MEDS: LEVOFLOXACIN 500 MG TAB PO SCH (05:49)
[2016-08-28 07:52] LABS: POTASSIUM 3.1 mmol/L (3.5-5.1)
[2016-08-28 07:55] LABS: CREATININE 0.44 mg/dl (0.44-1.00)
[2016-08-28 07:56] LABS: CALCIUM 7.2 mg/dl (8.4-10.2)
[2016-08-28] MEDS: EMTRICITABINE/TENOFOVIR TAB PO SCH (10:05)
[2016-08-28] MEDS: MESALAMINE (EC) 400 MG CAP PO SCH ×2 (10:05→21:11)
[2016-08-28] MEDS: LACTOBACILLUS CHEW TAB PO SCH ×3 (10:05→21:12)
[2016-08-28] MEDS: MEGESTROL (40 MG/ML) 10ML CUP PO SCH ×2 (10:05→21:11)
[2016-08-28] MEDS: MEGESTROL 40 MG TAB PO SCH (10:05)
[2016-08-28] MEDS: EFAVIRENZ 600 MG TAB PO SCH (10:06)
[2016-08-28] MEDS: SUCRALFATE 1 GM TAB PO SCH ×4 (10:06→21:12)
[2016-08-28] MEDS: COLLAGENASE 30 GM TUBE TOP SCH (10:17)
[2016-08-28] MEDS: FUROSEMIDE 40 MG INJ IV SCH (10:17)
--- NOTE | 2016-08-28 11:21 | PN ---
DATE: REASON FOR FOLLOWUP: Shortness of breath. SUBJECTIVE: The patient remains stable this morning, somewhat confused but in no respiratory distre ss. PHYSICAL EXAMINATION: VITAL SIGNS: Temperature 98, pulse is 100, blood pressure 112/80, O2 saturation 97% on room air. NECK: Supple. No JVD or lymphadenopathy. CARDIAC: S1, S2, no added sounds or murmurs. CHEST: Diminished air entry bilaterally. ABDOMEN: Soft, nontender. No guarding or rebound. EXTREMITIES: No cyanosis, clubbing, 2+ edema. NEUROLOGIC: Generalized weakness. LABORATORY DATA: Potassium 3.1. IMPRESSION AND PLAN: 1. History of human immunodeficiency virus. 2. History of cirrhosis. 3. Chronic decubitus ulcers. 4. Bilateral pleural effusions. The patient will require: 1. Thoracentesis of right lung and then left as tolerated. 2. Continue diuretics. 3. Gastrointestinal precautions. 4. Deep vein thrombosis and gastrointestinal prophylaxis. Dictated By: SHADI MCNAMARA/SHILPA Conf#: [id number] DID#: [id number]
--- NOTE | 2016-08-28 13:20 | CONS ---
Date/Time of Note Date/Time of Note DATE: 08/28/16 TIME: 13:19 Assessment/Plan Assessment/Plan Chief Complaint/Hosp Course SUBJECTIVE: No acute changes, alert, looks comfortable, no fevers ANTIMICROBIALS: 2. Sustiva. 3. Truvada. 6. levaquin PHYSICAL EXAMINATION: GENERAL: This is a cachectic, ill-appearing, middle-aged woman who is awake, lying comfortably in bed. HEENT: Head atraumatic, normocephalic. Sclerae anicteric. Buccal mucosa dry. NECK: Supple, trachea midline. CHEST: Rise symmetrical. Breath sounds diminished to bases. HEART: S1, S2. ABDOMEN: Soft. Bowel tones present. EXTREMITIES: With bilateral hand edema and cyanosis of the fingers and wrists. SKIN: Severe anasarca. ASSESSMENT: 1. S/p GIB/EGD 2. PNA/pleural effusions 3. Human immunodeficiency virus positive with a history of noncompliance with human immunodeficiency virus medications. A CD4 count 392. 4. 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 Cultures growing citrobacter and Proteus mirabilis. 4. Cachexia. 5. Hx of Inocencia esophagitis. 6. Anasarca 2 to protein calorie malnutrition. 7. Hepatitis C virus. 8. Right upper extremity thrombosis, status post PICC line removed. 9. History of substance abuse. PLAN: Clinically stable, continue local wound care, aspiration precaution, f/u pulmonary rec-s==> pending thoracentesis [facility] staff Problems: Consultation Date/Type/Reason Admit Date/Time Aug 09, 2016 at 01:59 Initial Consult Date 08/09/16 Type of Consultation: id Exam/Review of Systems Vital Signs Vitals Vital Signs Date Time Temp Pulse Resp B/P Pulse Ox O2 Delivery O2 Flow Rate FiO2 08/28/16 12:31 98.2 112 18 111/78 98 08/28/16 05:20 21 08/27/16 20:30 Nasal Cannula 2.0 Intake and Output 08/27/16 08/27/16 08/28/16 15:00 23:00 07:00 Intake Total 800 ml 400 ml Output Total 800 ml 2350 ml Balance 0 ml -1950 ml Results Result Diagram: 08/27/16 0600 08/28/16 0643 Results 24 hrs Laboratory Tests Test 08/28/16 06:43 Anion Gap 8 Blood Urea Nitrogen 6 L Calcium Level 7.2 L Carbon Dioxide Level 26 Chloride Level 110 Creatinine 0.44 Glucose Level 80 Potassium Level 3.1 L Sodium Level 141 Medications Medications Current Medications Ondansetron HCl (Zofran Inj) 4 mg Q6H PRN IV NAUSEA AND/OR VOMITING Last administered on 08/24/16 17:49; Admin Dose 4 MG; Start 08/09/16 at 07:00 Acetaminophen (Tylenol Supp) 650 mg Q6H PRN [place] PAIN LEVEL 1-3 OR FEVER; Start 08/09/16 at 07:00 Mesalamine (Delzicol Dr) 800 mg BID PO Last administered on 08/28/16 10:05; Admin Dose 800 MG; Start 08/09/16 at 09:00 Efavirenz (Sustiva) 600 mg DAILY PO Last administered on 08/28/16 10:06; Admin Dose 600 MG; Start 08/12/16 at 14:00 Emtricitabine/ Tenofovir (Truvada) 1 tab DAILY PO Last administered on 10:05; Admin Dose 1 TAB; Start 08/12/16 at 14:00 Collagenase (Santyl) 1 applic DAILY TOP Last administered on 08/28/16 10:17; Admin Dose 1 APPLIC; Start 08/12/16 at 14:00 Al Hydrox/Mg Hydrox/Simethicone (Mag-Al Plus) 30 ml Q6H PRN PO GASTROINTESTINAL UPSET Last administered on 08/12/16 15:43; Admin Dose 30 ML; Start 08/12/16 at 15:30 Mirtazapine (Remeron) 15 mg HS PO Last administered on 08/27/16 22:05; Admin Dose 15 MG; Start 08/12/16 at 21:00 Acetaminophen/ Hydrocodone Bitart ([place] (5/325)) 1 tab Q6H PRN PO PAIN Last administered on 08/15/16 22:36; Admin Dose 1 TAB; Start 08/13/16 at 23:30 IV Flush (NS 10 ml) 10 ml PRN PRN IV IV PROTOCOL; Start 08/14/16 at 17:00 Lactobacillus Acidoph/Bulgaricus (Floranex) 1 tab TID PO Last administered on 12:55; Admin Dose 1 TAB; Start 08/15/16 at 21:00 Megestrol Acetate (Megace Susp) 400 mg BID PO Last administered on 08/28/16 10: 05; Admin Dose 400 MG; Start 08/17/16 at 10:30; Stop 09/16/16 at 10:29 Megestrol Acetate (Megace) 40 mg DAILY PO Last administered on 08/28/16 10:05; Admin Dose 40 MG; Start 08/19/16 at 15:00 Lorazepam (Ativan) 1 mg Q3 PRN IV ANXIETY Last administered on 08/25/16 16:04; Admin Dose 1 MG; Start 08/20/16 at 22:30 Sucralfate (Carafate) 1 gm QID PO Last administered on 08/28/16 13:03; Admin Dose 1 GM; Start 08/24/16 at 21:00 Morphine Sulfate (morphine) 2 mg Q4H PRN IV PAIN; Start 08/25/16 at 05:30 Pantoprazole (Protonix Tab) 40 mg BID@06,18 PO Last administered on 08/28/16 05 :49; Admin Dose 40 MG; Start 08/25/16 at 18:00 Levofloxacin (Levaquin) 500 mg DAILY@06 PO Last administered on 08/28/16 05:49 ; Admin Dose 500 MG; Start 08/27/16 at 15:00 Furosemide (Lasix) 40 mg DAILY IV Last administered on 08/28/16 10:17; Admin Dose 40 MG; Start 08/27/16 at 17:00 AGUILA BURGOS NP Aug 28, 2016 13:20
--- NOTE | 2016-08-28 13:51 | PN ---
Date/Time of Note Date/Time of Note DATE: 08/28/16 TIME: 13:47 Assessment/Plan VTE Prophylaxis VTE Prophylaxis Intervention: SCD's Lines/Catheters IV Catheter Type (from Nrsg): PICC Line Central line still needed: Yes Urinary Cath still in place: Yes Reason Cath still needed: other (indicate) Assessment/Plan Assessment/Plan 1. Upper GI bleeding from gastric ulcers, on protonix 2. Pneumonia, aspiration, treated 3. Multiple chronic wounds with stage IV sacral decubitus, wound care 4. Anemia: acute on chronic, stable 5. Severe protein calorie malnutrition. Past swallow evaluation. Encourage p.o. intake 6. Human immunodeficiency virus positive with noncompliance with her HIV medications, CD4 count on 06/25/2016 was 903, follow up with ID 7. Right axillary, cephalic, basilic, and brachial venous thrombus from PICC line, PICC line removed 8. Fail to thrive, no family, on megace for poor intake, poor prognosis 9. Bilateral pleural effusion due to hypoalbuminemia, thoracentesis per pulmonology 10. D/c home with home health after thoracentesis Subjective 24 Hr Interval Summary Free Text/Dictation no shortness of breath. no fever or chills Exam/Review of Systems Vital Signs Vitals Vital Signs Date Time Temp Pulse Resp B/P Pulse Ox O2 Delivery O2 Flow Rate FiO2 08/28/16 12:31 98.2 112 18 111/78 98 08/28/16 07:35 Nasal Cannula 2.0 08/28/16 05:20 21 Intake and Output 08/27/16 08/27/16 08/28/16 15:00 23:00 07:00 Intake Total 800 ml 400 ml Output Total 800 ml 2350 ml Balance 0 ml -1950 ml Exam Constitutional: alert, oriented, well developed Psych: nl mood/affect, no complaints Head: atraumatic, normocephalic Eyes: EOMI, PERRL, nl conjunctiva, nl lids ENMT: nl external ears & nose, nl lips & teeth, nl nasal mucosa & septum Neck: non-tender, supple Respiratory: clear to auscultation, normal air movement, No congested cough, No crackles/rales, No diminished breath sounds, No intercostal retraction, No labored breathing, No other, No respirations, No tactile fremitus, No wheezing Cardiovascular: nl pulses, regular rate and rhythm, No S3, No S4, No bruits, No diastolic murmur, No edema, No gallop, No irregular rhythm, No jugular venous distention (JVD), No murmurs/extra sounds, No other, No rub, No systolic murmur Gastrointestinal: nl liver, spleen, non-tender, soft, No ascites, No bowel sounds, No distended, No firm, No hepatomegaly, No mass , No other, No rebound or guarding, No splenomegaly, No surgical scars, No tender Musculoskeletal: nl extremities to inspection Extremities: normal pulses, No calf tenderness, No clubbing, No cyanosis, No edema, No other, No palpable cord, No pitting pedal edema, No tenderness Neurological: [employer] II-XII intact, nl mental status, nl speech Skin: other (wounds) Results Result Diagram: 08/27/16 0600 08/28/16 0643 Results 24 hrs Laboratory Tests Test 08/28/16 06:43 Anion Gap 8 Blood Urea Nitrogen 6 L Calcium Level 7.2 L Carbon Dioxide Level 26 Chloride Level 110 Creatinine 0.44 Glucose Level 80 Potassium Level 3.1 L Sodium Level 141 Medications Medications Current Medications Ondansetron HCl (Zofran Inj) 4 mg Q6H PRN IV NAUSEA AND/OR VOMITING Last administered on 08/24/16 17:49; Admin Dose 4 MG; Start 08/09/16 at 07:00 Acetaminophen (Tylenol Supp) 650 mg Q6H PRN [place] PAIN LEVEL 1-3 OR FEVER; Start 08/09/16 at 07:00 Mesalamine (Delzicol Dr) 800 mg BID PO Last administered on 08/28/16 10:05; Admin Dose 800 MG; Start 08/09/16 at 09:00 Efavirenz (Sustiva) 600 mg DAILY PO Last administered on 08/28/16 10:06; Admin Dose 600 MG; Start 08/12/16 at 14:00 Emtricitabine/ Tenofovir (Truvada) 1 tab DAILY PO Last administered on 10:05; Admin Dose 1 TAB; Start 08/12/16 at 14:00 Collagenase (Santyl) 1 applic DAILY TOP Last administered on 08/28/16 10:17; Admin Dose 1 APPLIC; Start 08/12/16 at 14:00 Al Hydrox/Mg Hydrox/Simethicone (Mag-Al Plus) 30 ml Q6H PRN PO GASTROINTESTINAL UPSET Last administered on 08/12/16 15:43; Admin Dose 30 ML; Start 08/12/16 at 15:30 Mirtazapine (Remeron) 15 mg HS PO Last administered on 08/27/16 22:05; Admin Dose 15 MG; Start 08/12/16 at 21:00 Acetaminophen/ Hydrocodone Bitart ([place] (5/325)) 1 tab Q6H PRN PO PAIN Last administered on 08/15/16 22:36; Admin Dose 1 TAB; Start 08/13/16 at 23:30 IV Flush (NS 10 ml) 10 ml PRN PRN IV IV PROTOCOL; Start 08/14/16 at 17:00 Lactobacillus Acidoph/Bulgaricus (Floranex) 1 tab TID PO Last administered on 12:55; Admin Dose 1 TAB; Start 08/15/16 at 21:00 Megestrol Acetate (Megace Susp) 400 mg BID PO Last administered on 08/28/16 10: 05; Admin Dose 400 MG; Start 08/17/16 at 10:30; Stop 09/16/16 at 10:29 Megestrol Acetate (Megace) 40 mg DAILY PO Last administered on 08/28/16 10:05; Admin Dose 40 MG; Start 08/19/16 at 15:00 Lorazepam (Ativan) 1 mg Q3 PRN IV ANXIETY Last administered on 08/25/16 16:04; Admin Dose 1 MG; Start 08/20/16 at 22:30 Sucralfate (Carafate) 1 gm QID PO Last administered on 08/28/16 13:03; Admin Dose 1 GM; Start 08/24/16 at 21:00 Morphine Sulfate (morphine) 2 mg Q4H PRN IV PAIN; Start 08/25/16 at 05:30 Pantoprazole (Protonix Tab) 40 mg BID@06,18 PO Last administered on 08/28/16 05 :49; Admin Dose 40 MG; Start 08/25/16 at 18:00 Levofloxacin (Levaquin) 500 mg DAILY@06 PO Last administered on 08/28/16 05:49 ; Admin Dose 500 MG; Start 08/27/16 at 15:00 Furosemide (Lasix) 40 mg DAILY IV Last administered on 08/28/16t 10:17; Admin Dose 40 MG; Start 08/27/16 at 17:00 AYSHA VILLAREAL MD Aug 28, 2016 13:51
[2016-08-28] MEDS ORDERED: POTASSIUM CHLORIDE (SR) 20 MEQ TAB PO ONE (14:30)
--- NOTE | 2016-08-28 17:05 | RADRPT ---
PROCEDURE: US guided right thoracentesis. CLINICAL INDICATION: Shortness of breath. Right pleural effusion. TECHNIQUE: Prior to the procedure, informed consent was obtained. The risks, benefits, and alternatives were e xplained to the patient or the patient's family, including but not limited to bleeding, infection, p ain, visceral or vascular damage, shock, pneumothorax, chest tube placement, air embolism, and . The patient or the patient's family understood the risks and the alternatives and wished to proce ed with the study. Informed written consent was obtained. A procedural pause was performed. The patient's name, date of , and procedure to be performed were verified. Ultrasound of the right hemithorax was performed in the axial and sagittal planes. A right pleural e ffusion is noted. Utilizing ultrasound guidance, optimal location for entry to the pleural cavity wa s ascertained. The overlying skin was prepped and draped in the usual sterile fashion. Approximate ly 10 ml of 1% Xylocaine was injected locally for pain control. Using ultrasound guidance, a 5-Fren Yueh catheter was introduced into the right pleural space without difficulty. Fluid was aspirated . COMPARISON: Chest x-ray dated 08/26/2016. FINDINGS: Initial ultrasound demonstrates fluid in the right pleural space. Approximately 0.800 liters of ser ous fluid was aspirated and sent to the laboratory. IMPRESSION: 1. Satisfactory ultrasound-guided right thoracentesis. RPTAT: QQ .Patricio Phillips MD, Date Time Electronically viewed and signed by .Patricio Phillips MD, on 08/28/2016 17:05 .R/
[2016-08-28] MEDS ORDERED: LIDOCAINE 1% (MPF) 5 ML VIAL ONE (17:11)
--- NOTE | 2016-08-28 17:33 | RADRPT ---
PROCEDURE: XR Chest AP portable CLINICAL INDICATION: Post right thoracentesis TECHNIQUE: An AP portable radiograph of the chest was submitted. COMPARISON: 08/26/2016 FINDINGS: Support Hardware: A left upper extremity PICC catheter is again evident with the tip projecting to t he superior vena cava. Cardiovascular: The cardiovascular silhouette appears unremarkable. Lung Dennis: There is opacification of the right hemithorax which likely represents a combination of pleural fluid accumulation and underlying parenchymal disease. Discoid atelectasis is seen at the r ight lung base. Pleural Spaces: There appears to be persistent pleural fluid on the left and there has been a signif icant decrease in right-sided pleural fluid accumulation. There is no pneumothorax. Osseous Structures: There is erosion of the distal left clavicle. Soft Tissues: The soft tissues appear unremarkable. IMPRESSION: 1. Considerable decrease in the amount of right pleural fluid accumulation. No pneumothorax is kailee dent. 2. Persistent opacification of all but the apex of the left lung compatible with a combination of p leural fluid and underlying parenchymal disease. discoid atelectasis is now seen at the right lung base. 3. There is again erosion of the distal left clavicle with the osseous elements appear rarefied. Physician Hedy Date Time Electronically viewed and signed by Physician Hedy on 08/28/2016 17:32 /
[2016-08-28] MEDS: LORAZEPAM 2 MG INJ IV PRN (17:56)
[2016-08-28 18:38] LABS: FLUID APPEARANCE CLEAR; FLUID TYPE THORACENTHESIS
[2016-08-28 18:40] LABS: FLUID RBC EST 1+; FLUID WBC'S 27 /cmm
[2016-08-28 18:49] LABS: FLUID LD 311 U/L; FLUID TYPE THORACENTESIS FLUID
[2016-08-28 18:50] LABS: FLUID TOTAL PROTEIN < 2.0 g/dl
[2016-08-28 19:02] LABS: FLUID GLUCOSE 86 mg/dl; FLUID TYPE THORACENTESIS FLUID
[2016-08-28 19:12] LABS: FLUID BASOPHIL 0 %; FLUID EOSINOPHIL 0 %; FLUID LYMPHOCYTES 44 %; FLUID MONOCYTES 26 %; FLUID NEUTROPHILS 30 %
[2016-08-28] MEDS: MIRTAZAPINE 15 MG TAB PO SCH (21:12)
[2016-08-29] VITALS (12 sets, daily range): BP systolic 106–117; BP diastolic 74–82; PULSE 101–123; RESP 15–20
[2016-08-29] MEDS: ALBUTEROL/IPRATROPIUM (NEB) 3 ML AMP HHN SCH ×6 (01:00→21:17)
[2016-08-29] MEDS: morphine 2 MG INJ IV PRN ×2 (03:01→13:07)
[2016-08-29] MEDS: PANTOPRAZOLE (EC) 40 MG TAB PO SCH ×2 (05:44→18:41)
[2016-08-29] MEDS: LEVOFLOXACIN 500 MG TAB PO SCH (05:44)
[2016-08-29 08:08] LABS: POTASSIUM 3.4 mmol/L (3.5-5.1)
[2016-08-29 08:10] LABS: CREATININE 0.5 mg/dl (0.44-1.00)
[2016-08-29 08:11] LABS: CALCIUM 7.3 mg/dl (8.4-10.2)
[2016-08-29] MEDS: EMTRICITABINE/TENOFOVIR TAB PO SCH (09:09)
[2016-08-29] MEDS: MEGESTROL 40 MG TAB PO SCH (09:09)
[2016-08-29] MEDS: EFAVIRENZ 600 MG TAB PO SCH (09:09)
[2016-08-29] MEDS: LACTOBACILLUS CHEW TAB PO SCH ×3 (09:09→21:53)
[2016-08-29] MEDS: MEGESTROL (40 MG/ML) 10ML CUP PO SCH ×2 (09:09→21:00)
[2016-08-29] MEDS: SUCRALFATE 1 GM TAB PO SCH ×4 (09:09→21:53)
[2016-08-29] MEDS: FUROSEMIDE 40 MG INJ IV SCH (09:10)
[2016-08-29] MEDS: COLLAGENASE 30 GM TUBE TOP SCH (09:12)
[2016-08-29] MEDS: MESALAMINE (EC) 400 MG CAP PO SCH ×2 (10:38→21:53)
--- NOTE | 2016-08-29 12:21 | CONS ---
Date/Time of Note Date/Time of Note DATE: 08/29/16 TIME: 12:19 Assessment/Plan Assessment/Plan Chief Complaint/Hosp Course SUBJECTIVE: No acute changes, sleeping, looks comfortable, no fevers ANTIMICROBIALS: 2. Sustiva. 3. Truvada. 6. levaquin PHYSICAL EXAMINATION: GENERAL: This is a cachectic, ill-appearing, middle-aged woman who is awake, lying comfortably in bed. HEENT: Head atraumatic, normocephalic. Sclerae anicteric. Buccal mucosa dry. NECK: Supple, trachea midline. CHEST: Rise symmetrical. Breath sounds diminished to bases. HEART: S1, S2. ABDOMEN: Soft. Bowel tones present. EXTREMITIES: With bilateral hand edema and cyanosis of the fingers and wrists. SKIN: Severe anasarca. ASSESSMENT: 1. S/p GIB/EGD 2. PNA/pleural effusions==> s/p R thoracentesis 08/28/16 3. Human immunodeficiency virus positive with a history of noncompliance with human immunodeficiency virus medications. A CD4 count 392. 4. 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 Cultures growing citrobacter and Proteus mirabilis. 4. Cachexia. 5. Hx of Inocencia esophagitis. 6. Anasarca 2 to protein calorie malnutrition. 7. Hepatitis C virus. 8. Right upper extremity thrombosis, status post PICC line removed. 9. History of substance abuse. PLAN: Remains stable, continue present care, aspiration precaution, f/u pulmonary rec-s [facility] staff Problems: Consultation Date/Type/Reason Admit Date/Time Aug 09, 2016 at 01:59 Initial Consult Date 08/09/16 Type of Consultation: id Exam/Review of Systems Vital Signs Vitals Vital Signs Date Time Temp Pulse Resp B/P Pulse Ox O2 Delivery O2 Flow Rate FiO2 08/29/16 12:16 106 08/29/16 11:57 98.2 19 117/82 99 08/29/16 08:02 2.0 08/29/16 04:12 Nasal Cannula 08/28/16 05:20 21 Intake and Output 08/28/16 08/28/16 08/29/16 15:00 23:00 07:00 Intake Total 600 ml Output Total 1400 ml Balance -800 ml Results Result Diagram: 08/27/16 0600 08/29/16 0732 Results 24 hrs Laboratory Tests Test 08/28/16 16:45 08/29/16 07:32 Body Fluid Appearance CLEAR Body Fluid Basophils % 0 Body Fluid Color YELLOW Body Fluid Eosinophils % 0 Body Fluid Glucose 86 Body Fluid Lactate Dehydrogenase 311 Body Fluid Lymphocytes (%) 44 Body Fluid Monocytes % 26 Body Fluid Neutrophils % 30 Body Fluid Other Cells (%) Body Fluid RBC 1+ Body Fluid Total Protein < 2.0 Body Fluid Type THORACENTESIS FLUID Body Fluid Volume 810.0 Body Fluid WBC 27 Anion Gap 6 L Blood Urea Nitrogen 9 Calcium Level 7.3 L Carbon Dioxide Level 27 Chloride Level 109 Creatinine 0.50 Glucose Level 69 #L Potassium Level 3.4 L Sodium Level 139 Medications Medications Current Medications Ondansetron HCl (Zofran Inj) 4 mg Q6H PRN IV NAUSEA AND/OR VOMITING Last administered on 08/24/16 17:49; Admin Dose 4 MG; Start 08/09/16 at 07:00 Acetaminophen (Tylenol Supp) 650 mg Q6H PRN [place] PAIN LEVEL 1-3 OR FEVER; Start 08/09/16 at 07:00 Mesalamine (Delzicol Dr) 800 mg BID PO Last administered on 08/29/16 10:38; Admin Dose 800 MG; Start 08/09/16 at 09:00 Efavirenz (Sustiva) 600 mg DAILY PO Last administered on 08/29/16 09:09; Admin Dose 600 MG; Start 08/12/16 at 14:00 Emtricitabine/ Tenofovir (Truvada) 1 tab DAILY PO Last administered on 09:09; Admin Dose 1 TAB; Start 08/12/16 at 14:00 Collagenase (Santyl) 1 applic DAILY TOP Last administered on 08/29/16 09:12; Admin Dose 1 APPLIC; Start 08/12/16 at 14:00 Al Hydrox/Mg Hydrox/Simethicone (Mag-Al Plus) 30 ml Q6H PRN PO GASTROINTESTINAL UPSET Last administered on 08/12/16 15:43; Admin Dose 30 ML; Start 08/12/16 at 15:30 Mirtazapine (Remeron) 15 mg HS PO Last administered on 08/28/16 21:12; Admin Dose 15 MG; Start 08/12/16 at 21:00 Acetaminophen/ Hydrocodone Bitart ([place] (5/325)) 1 tab Q6H PRN PO PAIN Last administered on 08/15/16 22:36; Admin Dose 1 TAB; Start 08/13/16 at 23:30 IV Flush (NS 10 ml) 10 ml PRN PRN IV IV PROTOCOL; Start 08/14/16 at 17:00 Lactobacillus Acidoph/Bulgaricus (Floranex) 1 tab TID PO Last administered on 09:09; Admin Dose 1 TAB; Start 08/15/16 at 21:00 Megestrol Acetate (Megace Susp) 400 mg BID PO Last administered on 08/29/16 09 :09; Admin Dose 400 MG; Start 08/17/16 at 10:30; Stop 09/16/16 at 10:29 Megestrol Acetate (Megace) 40 mg DAILY PO Last administered on 08/29/16 09:09 ; Admin Dose 40 MG; Start 08/19/16 at 15:00 Lorazepam (Ativan) 1 mg Q3 PRN IV ANXIETY Last administered on 08/28/16 17:56; Admin Dose 1 MG; Start 08/20/16 at 22:30 Sucralfate (Carafate) 1 gm QID PO Last administered on 08/29/16 09:09; Admin Dose 1 GM; Start 08/24/16 at 21:00 Morphine Sulfate (morphine) 2 mg Q4H PRN IV PAIN Last administered on 03:01; Admin Dose 2 MG; Start 08/25/16 at 05:30 Pantoprazole (Protonix Tab) 40 mg BID@06,18 PO Last administered on 08/29/16 05:44; Admin Dose 40 MG; Start 08/25/16 at 18:00 Levofloxacin (Levaquin) 500 mg DAILY@06 PO Last administered on 08/29/16 05:44 ; Admin Dose 500 MG; Start 08/27/16 at 15:00 Furosemide (Lasix) 40 mg DAILY IV Last administered on 08/29/16 09:10; Admin Dose 40 MG; Start 08/27/16 at 17:00 AGUILA BURGOS NP Aug 29, 2016 12:21
--- NOTE | 2016-08-29 13:15 | PN ---
Date/Time of Note Date/Time of Note DATE: 08/29/16 TIME: 13:11 Assessment/Plan VTE Prophylaxis VTE Prophylaxis Intervention: SCD's Lines/Catheters IV Catheter Type (from Nrs): PICC Line Central line still needed: Yes Urinary Cath still in place: Yes Reason Cath still needed: other (indicate) Assessment/Plan Assessment/Plan 1. Upper GI bleeding from gastric ulcers, on protonix 2. Pneumonia, aspiration, treated 3. Multiple chronic wounds with stage IV sacral decubitus, wound care 4. Anemia: acute on chronic, stable 5. Severe protein calorie malnutrition. Past swallow evaluation. Encourage p.o. intake 6. Human immunodeficiency virus positive with noncompliance with her HIV medications, CD4 count on 06/25/2016 was 903, follow up with ID 7. Right axillary, cephalic, basilic, and brachial venous thrombus from PICC line, PICC line removed 8. Fail to thrive, no family, on megace for poor intake, poor prognosis 9. Bilateral pleural effusion due to hypoalbuminemia, s/p right thoracentesis 08/28/2016, left thoracentesis 08/29/2016 10. D/c home with home health tomorrow if stable Subjective 24 Hr Interval Summary Free Text/Dictation stronger, better appetite. No shortness of breath Exam/Review of Systems Vital Signs Vitals Vital Signs Date Time Temp Pulse Resp B/P Pulse Ox O2 Delivery O2 Flow Rate FiO2 08/29/16 12:16 106 08/29/16 11:57 98.2 19 117/82 99 08/29/16 08:02 2.0 08/29/16 04:12 Nasal Cannula 08/28/16 05:20 21 Intake and Output 08/28/16 08/28/16 08/29/16 15:00 23:00 07:00 Intake Total 600 ml Output Total 1400 ml Balance -800 ml Exam Constitutional: alert, oriented, well developed Psych: nl mood/affect, no complaints Head: atraumatic, normocephalic Eyes: EOMI, nl conjunctiva, nl lids ENMT: nl external ears & nose, nl lips & teeth, nl nasal mucosa & septum Neck: non-tender, supple Respiratory: clear to auscultation, normal air movement, No congested cough, No crackles/rales, No diminished breath sounds, No intercostal retraction, No labored breathing, No other, No respirations, No tactile fremitus, No wheezing Cardiovascular: nl pulses, regular rate and rhythm, No S3, No S4, No bruits, No diastolic murmur, No edema, No gallop, No irregular rhythm, No jugular venous distention (JVD), No murmurs/extra sounds, No other, No rub, No systolic murmur Gastrointestinal: nl liver, spleen, non-tender, soft, No ascites, No bowel sounds, No distended, No firm, No hepatomegaly, No mass , No other, No rebound or guarding, No splenomegaly, No surgical scars, No tender Musculoskeletal: nl extremities to inspection Extremities: normal pulses, No calf tenderness, No clubbing, No cyanosis, No edema, No other, No palpable cord, No pitting pedal edema, No tenderness Neurological: [employer] G[employer] II-XII intact, nl mental status, nl speech, nl strength Skin: nl turgor Results Result Diagram: 08/27/16 0600 08/29/16 0732 Results 24 hrs Laboratory Tests Test 08/28/16 16:45 08/29/16 07:32 Body Fluid Appearance CLEAR Body Fluid Basophils % 0 Body Fluid Color YELLOW Body Fluid Eosinophils % 0 Body Fluid Glucose 86 Body Fluid Lactate Dehydrogenase 311 Body Fluid Lymphocytes (%) 44 Body Fluid Monocytes % 26 Body Fluid Neutrophils % 30 Body Fluid Other Cells (%) Body Fluid RBC 1+ Body Fluid Total Protein < 2.0 Body Fluid Type THORACENTESIS FLUID Body Fluid Volume 810.0 Body Fluid WBC 27 Anion Gap 6 L Blood Urea Nitrogen 9 Calcium Level 7.3 L Carbon Dioxide Level 27 Chloride Level 109 Creatinine 0.50 Glucose Level 69 #L Potassium Level 3.4 L Sodium Level 139 Medications Medications Current Medications Ondansetron HCl (Zofran Inj) 4 mg Q6H PRN IV NAUSEA AND/OR VOMITING Last administered on 08/24/16 17:49; Admin Dose 4 MG; Start 08/09/16 at 07:00 Acetaminophen (Tylenol Supp) 650 mg Q6H PRN [place] PAIN LEVEL 1-3 OR FEVER; Start 08/09/16 at 07:00 Mesalamine (Delzicol Dr) 800 mg BID PO Last administered on 08/29/16 10:38; Admin Dose 800 MG; Start 08/09/16 at 09:00 Efavirenz (Sustiva) 600 mg DAILY PO Last administered on 08/29/16 09:09; Admin Dose 600 MG; Start 08/12/16 at 14:00 Emtricitabine/ Tenofovir (Truvada) 1 tab DAILY PO Last administered on 09:09; Admin Dose 1 TAB; Start 08/12/16 at 14:00 Collagenase (Santyl) 1 applic DAILY TOP Last administered on 08/29/16 09:12; Admin Dose 1 APPLIC; Start 08/12/16 at 14:00 Al Hydrox/Mg Hydrox/Simethicone (Mag-Al Plus) 30 ml Q6H PRN PO GASTROINTESTINAL UPSET Last administered on 08/12/16 15:43; Admin Dose 30 ML; Start 08/12/16 at 15:30 Mirtazapine (Remeron) 15 mg HS PO Last administered on 08/28/16 21:12; Admin Dose 15 MG; Start 08/12/16 at 21:00 Acetaminophen/ Hydrocodone Bitart ([place] (5/325)) 1 tab Q6H PRN PO PAIN Last administered on 08/15/16 22:36; Admin Dose 1 TAB; Start 08/13/16 at 23:30 IV Flush (NS 10 ml) 10 ml PRN PRN IV IV PROTOCOL; Start 08/14/16 at 17:00 Lactobacillus Acidoph/Bulgaricus (Floranex) 1 tab TID PO Last administered on 12:47; Admin Dose 1 TAB; Start 08/15/16 at 21:00 Megestrol Acetate (Megace Susp) 400 mg BID PO Last administered on 08/29/16 09 :09; Admin Dose 400 MG; Start 08/17/16 at 10:30; Stop 09/16/16 at 10:29 Megestrol Acetate (Megace) 40 mg DAILY PO Last administered on 08/29/16 09:09 ; Admin Dose 40 MG; Start 08/19/16 at 15:00 Lorazepam (Ativan) 1 mg Q3 PRN IV ANXIETY Last administered on 08/28/16 17:56; Admin Dose 1 MG; Start 08/20/16 at 22:30 Sucralfate (Carafate) 1 gm QID PO Last administered on 08/29/16 12:47; Admin Dose 1 GM; Start 08/24/16 at 21:00 Morphine Sulfate (morphine) 2 mg Q4H PRN IV PAIN Last administered on 13:07; Admin Dose 2 MG; Start 08/25/16 at 05:30 Pantoprazole (Protonix Tab) 40 mg BID@06,18 PO Last administered on 08/29/16 05:44; Admin Dose 40 MG; Start 08/25/16 at 18:00 Levofloxacin (Levaquin) 500 mg DAILY@06 PO Last administered on 08/29/16 05:44 ; Admin Dose 500 MG; Start 08/27/16 at 15:00 Furosemide (Lasix) 40 mg DAILY IV Last administered on 08/29/16 09:10; Admin Dose 40 MG; Start 08/27/16 at 17:00 AYSHA VILLAREAL MD Aug 29, 2016 13:15
--- NOTE | 2016-08-29 14:00 | PN ---
DATE: 08/29/2016 SUBJECTIVE: The patient underwent thoracentesis yesterday with 0.8 L removed from the lung. Chest x-ray still shows moderate left pleural effusion. PHYSICAL EXAMINATION: VITAL SIGNS: Temperature 98, pulse is 100, blood pressure 107/82, O2 saturation 96% on 2 L nasal ca nnula. NECK: Supple, no JVD or lymphadenopathy. CARDIAC: S1, S2, no added sounds or murmurs. CHEST: Diminished air entry bilaterally. ABDOMEN: Soft, nontender. No guarding or rebound. EXTREMITIES: No cyanosis, clubbing, or edema. NEUROLOGIC: Generalized weakness. IMPRESSION AND PLAN: 1. Bilateral pleural effusions. 2. Cirrhosis. 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 4. History of human immunodeficiency virus. 5. Significant deconditioning. PLAN: 1. Left thoracentesis today. 2. Supplemental O2. 3. Agree with discharge planning for tomorrow. Dictated By: SHADI MCNAMARA/SHILPA Conf#: [id number] DID#: [id number]
--- NOTE | 2016-08-29 15:18 | CONS ---
Date/Time of Note Date/Time of Note DATE: 08/29/16 TIME: 15:14 Assessment/Plan Assessment/Plan Additional Assessment/Plan 1. Symptomatic anemia: h/h stable 2. Severe protein calorie malnutrition: passed swallow eval. On Megace 3. hypokalemia: refractory and down-trending again. 4. Pneumonia. 5. Altered mental status: improved 6. multiple ulcers in the stomach 7. EGD pathology negative for malignancy, dysplasia, H. pylori, and infectious organism Recommendation: Start full liquid diet and advance diet as tolerated. Continue PPI twice daily Further recommendations pending clinical course Patient seen in collaboration with Dr. Carrasco Consultation Date/Type/Reason Admit Date/Time Aug 09, 2016 at 01:59 Initial Consult Date 08/09/16 Type of Consultation: GI 24 HR Interval Summary Free Text/Dictation Minimal PO intake Hgb stable Possible dc tomorrow Exam/Review of Systems Vital Signs Vitals Vital Signs Date Time Temp Pulse Resp B/P Pulse Ox O2 Delivery O2 Flow Rate FiO2 08/29/16 12:16 106 08/29/16 11:57 98.2 19 117/82 99 08/29/16 08:02 2.0 08/29/16 04:12 Nasal Cannula 08/28/16 05:20 21 Intake and Output 08/28/16 08/28/16 08/29/16 15:00 23:00 07:00 Intake Total 600 ml Output Total 1400 ml Balance -800 ml Exam Constitutional: alert, well developed Psych: nl mood/affect, no complaints Head: atraumatic, normocephalic Eyes: EOMI, nl conjunctiva, nl lids, nl sclera ENMT: mucosa pink and moist, nl external ears & nose, nl lips & teeth, nl nasal mucosa & septum Neck: non-tender, supple Respiratory: clear to auscultation, normal air movement Cardiovascular: nl pulses, regular rate and rhythm Gastrointestinal: bowel sounds, non-tender, soft Results Result Diagram: 08/27/16 0600 08/29/16 0732 Results 24 hrs Laboratory Tests Test 08/28/16 16:45 08/29/16 07:32 Body Fluid Appearance CLEAR Body Fluid Basophils % 0 Body Fluid Color YELLOW Body Fluid Eosinophils % 0 Body Fluid Glucose 86 Body Fluid Lactate Dehydrogenase 311 Body Fluid Lymphocytes (%) 44 Body Fluid Monocytes % 26 Body Fluid Neutrophils % 30 Body Fluid Other Cells (%) Body Fluid RBC 1+ Body Fluid Total Protein < 2.0 Body Fluid Type THORACENTESIS FLUID Body Fluid Volume 810.0 Body Fluid WBC 27 Anion Gap 6 L Blood Urea Nitrogen 9 Calcium Level 7.3 L Carbon Dioxide Level 27 Chloride Level 109 Creatinine 0.50 Glucose Level 69 #L Potassium Level 3.4 L Sodium Level 139 Medications Medications Current Medications Ondansetron HCl (Zofran Inj) 4 mg Q6H PRN IV NAUSEA AND/OR VOMITING Last administered on 08/24/16 17:49; Admin Dose 4 MG; Start 08/09/16 at 07:00 Acetaminophen (Tylenol Supp) 650 mg Q6H PRN [place] PAIN LEVEL 1-3 OR FEVER; Start 08/09/16 at 07:00 Mesalamine (Delzicol Dr) 800 mg BID PO Last administered on 08/29/16 10:38; Admin Dose 800 MG; Start 08/09/16 at 09:00 Efavirenz (Sustiva) 600 mg DAILY PO Last administered on 08/29/16 09:09; Admin Dose 600 MG; Start 08/12/16 at 14:00 Emtricitabine/ Tenofovir (Truvada) 1 tab DAILY PO Last administered on 09:09; Admin Dose 1 TAB; Start 08/12/16 at 14:00 Collagenase (Santyl) 1 applic DAILY TOP Last administered on 08/29/16 09:12; Admin Dose 1 APPLIC; Start 08/12/16 at 14:00 Al Hydrox/Mg Hydrox/Simethicone (Mag-Al Plus) 30 ml Q6H PRN PO GASTROINTESTINAL UPSET Last administered on 08/12/16 15:43; Admin Dose 30 ML; Start 08/12/16 at 15:30 Mirtazapine (Remeron) 15 mg HS PO Last administered on 08/28/16 21:12; Admin Dose 15 MG; Start 08/12/16 at 21:00 Acetaminophen/ Hydrocodone Bitart ([place] (5/325)) 1 tab Q6H PRN PO PAIN Last administered on 08/15/16 22:36; Admin Dose 1 TAB; Start 08/13/16 at 23:30 IV Flush (NS 10 ml) 10 ml PRN PRN IV IV PROTOCOL; Start 08/14/16 at 17:00 Lactobacillus Acidoph/Bulgaricus (Floranex) 1 tab TID PO Last administered on 12:47; Admin Dose 1 TAB; Start 08/15/16 at 21:00 Megestrol Acetate (Megace Susp) 400 mg BID PO Last administered on 08/29/16 09 :09; Admin Dose 400 MG; Start 08/17/16 at 10:30; Stop 09/16/16 at 10:29 Megestrol Acetate (Megace) 40 mg DAILY PO Last administered on 08/29/16 09:09 ; Admin Dose 40 MG; Start 08/19/16 at 15:00 Lorazepam (Ativan) 1 mg Q3 PRN IV ANXIETY Last administered on 08/28/16 17:56; Admin Dose 1 MG; Start 08/20/16 at 22:30 Sucralfate (Carafate) 1 gm QID PO Last administered on 08/29/16 12:47; Admin Dose 1 GM; Start 08/24/16 at 21:00 Morphine Sulfate (morphine) 2 mg Q4H PRN IV PAIN Last administered on 13:07; Admin Dose 2 MG; Start 08/25/16 at 05:30 Pantoprazole (Protonix Tab) 40 mg BID@06,18 PO Last administered on 08/29/16 05:44; Admin Dose 40 MG; Start 08/25/16 at 18:00 Levofloxacin (Levaquin) 500 mg DAILY@06 PO Last administered on 08/29/16 05:44 ; Admin Dose 500 MG; Start 08/27/16 at 15:00 Furosemide (Lasix) 40 mg DAILY IV Last administered on 08/29/16 09:10; Admin Dose 40 MG; Start 08/27/16 at 17:00 MYCHAL COLON Aug 29, 2016 15:18
--- NOTE | 2016-08-29 21:24 | CONS ---
DATE OF ADMISSION: 08/09/2016 DATE OF CONSULTATION: 08/29/2016 REQUESTING PHYSICIAN: Dr. Stubbs HISTORY OF PRESENT ILLNESS: This is a 41-year-old female who has multiple medical problems. Mainly she has HIV and is on medications, and she had a Hughes catheter that apparently the nurses did not think was draining well, so they removed it and replaced it with another catheter, and is she still showing that it is not draining well. They did the bladder scan and the bladder scan showed 800 mL on the bladder scan; therefore, a urological consultation was requested. The patient is very cachec tic and appeared to be a very sick patient. She has had a history of upper GI bleed from gastric ul cers and aspiration pneumonia that has been treated, multiple chronic stage IV sacral decubitus, ane norma of chronic. She does have severe protein-calorie malnutrition and HIV, and she has had poor com pliance with medication. She does have right axillary ____ venous thrombus from PICC line, failure to thrive, and bilateral pleural effusion, and anasarca. She does have edema of the lower extremiti es as well as on the CT scan the day of her admission, she did have ascites. ALLERGIES: THE PATIENT IS ALLERGIC TO: 1. HYDROCORTISONE. 2. IBUPROFEN. SOCIAL HISTORY: She has a history of drug abuse. MEDICATIONS: The medications that she is on right now include: 1. Lasix. 2. Levaquin. 3. Protonix. 4. Carafate. 5. DuoNeb. 6. Ativan. 7. Megace. 8. Lactobacillus. 9. [place]. 10. Remeron. 11. Sustiva. 12. Truvada. 13. ____. 14. Zofran p.r.n. 15. Tylenol ____ p.r.n. PHYSICAL EXAMINATION: GENERAL: Reveals a 41-year-old female, very cachectic, and she weighs 44.6 kilograms. She is 67 in ches tall. ABDOMEN: A little tense and most likely she does have ascites, and there are no masses palpable. PELVIC: There is no mass. The Hughes catheter that she has indeed is inside her bladder. One could feel ____ inside the bladder. EXTREMITIES: Lower extremities show some edema. LABORATORY DATA: Her last CBC shows a white count of 5.3, hemoglobin 11.1, hematocrit 34.5. The BU N is 6, creatinine 0.44. Electrolytes: Sodium 141, potassium 3.1, chloride 110, CO2 26. The PT 16 .5, INR 1.32. Urine culture from the 11 of August is no growth after 48 hours. IMPRESSION: Hughes catheter is inside the bladder, and there is no output because the patient does h ave ascites and what the bladder scan is showing has ascites rather than a distended urinary bladder . PLAN: I did go ahead and irrigate the Hughes catheter and it does irrigate very well. Therefore, th ere is no need to change it, and the catheter is in good position, and if there a concern about the catheter draining, then one has to hand irrigate it. I did not see any debris or any blood in the c atheter suggesting obstruction. Dictated By: JULIEN MCCLELLAN/SHILPA Conf#: [id number] DID#: [id number]
[2016-08-29] MEDS: MIRTAZAPINE 15 MG TAB PO SCH (21:53)
[2016-08-30] VITALS (10 sets, daily range): BP systolic 101–127; BP diastolic 59–76; PULSE 100–115; RESP 16–18
[2016-08-30] MEDS: ALBUTEROL/IPRATROPIUM (NEB) 3 ML AMP HHN SCH ×6 (00:53→21:00)
[2016-08-30] MEDS: PANTOPRAZOLE (EC) 40 MG TAB PO SCH ×2 (06:09→17:17)
[2016-08-30] MEDS: LEVOFLOXACIN 500 MG TAB PO SCH (06:09)
[2016-08-30] MEDS: MEGESTROL (40 MG/ML) 10ML CUP PO SCH ×2 (08:44→21:00)
[2016-08-30] MEDS: LACTOBACILLUS CHEW TAB PO SCH ×3 (08:45→21:00)
[2016-08-30] MEDS: MESALAMINE (EC) 400 MG CAP PO SCH ×2 (08:45→21:00)
[2016-08-30] MEDS: EMTRICITABINE/TENOFOVIR TAB PO SCH (08:45)
[2016-08-30] MEDS: SUCRALFATE 1 GM TAB PO SCH ×4 (08:45→21:00)
[2016-08-30] MEDS: MEGESTROL 40 MG TAB PO SCH (08:45)
[2016-08-30] MEDS: EFAVIRENZ 600 MG TAB PO SCH (08:45)
[2016-08-30] MEDS: COLLAGENASE 30 GM TUBE TOP SCH (08:46)
[2016-08-30] MEDS: FUROSEMIDE 40 MG INJ IV SCH (08:46)
--- NOTE | 2016-08-30 10:40 | CONS ---
Date/Time of Note Date/Time of Note DATE: 08/30/16 TIME: 10:38 Assessment/Plan Assessment/Plan Additional Assessment/Plan 1. Symptomatic anemia: h/h stable 2. Severe protein calorie malnutrition: passed swallow eval. On Megace 3. hypokalemia: refractory and down-trending again. 4. Pneumonia. 5. Altered mental status: improved 6. multiple ulcers in the stomach 7. EGD pathology negative for malignancy, dysplasia, H. pylori, and infectious organism Recommendation: Start full liquid diet and advance diet as tolerated No further GI interventions recommended, GI sign off. Continue PPI twice daily Further recommendations pending clinical course Patient seen in collaboration with Dr. Carrasco Consultation Date/Type/Reason Admit Date/Time Aug 09, 2016 at 01:59 Initial Consult Date 08/09/16 Type of Consultation: GI 24 HR Interval Summary Free Text/Dictation Very lethargic at bedside Stat CBC ordered, hemoglobin stable Patient stable from GI standpoint, GI sign off Exam/Review of Systems Vital Signs Vitals Vital Signs Date Time Temp Pulse Resp B/P Pulse Ox O2 Delivery O2 Flow Rate FiO2 08/30/16 09:46 110 20 94 21 08/30/16 09:09 98.6 108/72 08/30/16 08:45 Nasal Cannula 2.0 Intake and Output 08/29/16 08/29/16 08/30/16 15:00 23:00 07:00 Intake Total 800 ml 480 ml 250 ml Output Total 100 ml 1500 ml 300 ml Balance 700 ml -1020 ml -50 ml Exam Constitutional: alert, well developed Psych: nl mood/affect, no complaints Head: atraumatic, normocephalic Eyes: EOMI, nl conjunctiva, nl lids, nl sclera ENMT: mucosa pink and moist, nl external ears & nose, nl lips & teeth, nl nasal mucosa & septum Neck: non-tender, supple Respiratory: clear to auscultation, normal air movement Cardiovascular: nl pulses, regular rate and rhythm Gastrointestinal: bowel sounds, non-tender, soft Results Result Diagram: 08/27/16 0600 08/29/16 0732 Medications Medications Current Medications Ondansetron HCl (Zofran Inj) 4 mg Q6H PRN IV NAUSEA AND/OR VOMITING Last administered on 08/24/16t 17:49; Admin Dose 4 MG; Start 08/09/16 at 07:00 Acetaminophen (Tylenol Supp) 650 mg Q6H PRN [place] PAIN LEVEL 1-3 OR FEVER; Start 08/09/16 at 07:00 Mesalamine (Delzicol Dr) 800 mg BID PO Last administered on 08/30/16 08:45; Admin Dose 800 MG; Start 08/09/16 at 09:00 Efavirenz (Sustiva) 600 mg DAILY PO Last administered on 08/30/16 08:45; Admin Dose 600 MG; Start 08/12/16 at 14:00 Emtricitabine/ Tenofovir (Truvada) 1 tab DAILY PO Last administered on 08:45; Admin Dose 1 TAB; Start 08/12/16 at 14:00 Collagenase (Santyl) 1 applic DAILY TOP Last administered on 08/30/16 08:46; Admin Dose 1 APPLIC; Start 08/12/16 at 14:00 Al Hydrox/Mg Hydrox/Simethicone (Mag-Al Plus) 30 ml Q6H PRN PO GASTROINTESTINAL UPSET Last administered on 08/12/16 15:43; Admin Dose 30 ML; Start 08/12/16 at 15:30 Mirtazapine (Remeron) 15 mg HS PO Last administered on 08/29/16 21:53; Admin Dose 15 MG; Start 08/12/16 at 21:00 Acetaminophen/ Hydrocodone Bitart ([place] (5/325)) 1 tab Q6H PRN PO PAIN Last administered on 08/15/16 22:36; Admin Dose 1 TAB; Start 08/13/16 at 23:30 IV Flush (NS 10 ml) 10 ml PRN PRN IV IV PROTOCOL; Start 08/14/16 at 17:00 Lactobacillus Acidoph/Bulgaricus (Floranex) 1 tab TID PO Last administered on 08:45; Admin Dose 1 TAB; Start 08/15/16 at 21:00 Megestrol Acetate (Megace Susp) 400 mg BID PO Last administered on 08/30/16 08 :44; Admin Dose 400 MG; Start 08/17/16 at 10:30; Stop 09/16/16 at 10:29 Megestrol Acetate (Megace) 40 mg DAILY PO Last administered on 08/30/16 08:45 ; Admin Dose 40 MG; Start 08/19/16 at 15:00 Lorazepam (Ativan) 1 mg Q3 PRN IV ANXIETY Last administered on 08/28/16 17:56; Admin Dose 1 MG; Start 08/20/16 at 22:30 Sucralfate (Carafate) 1 gm QID PO Last administered on 08/30/16 08:45; Admin Dose 1 GM; Start 08/24/16 at 21:00 Morphine Sulfate (morphine) 2 mg Q4H PRN IV PAIN Last administered on 13:07; Admin Dose 2 MG; Start 08/25/16 at 05:30 Pantoprazole (Protonix Tab) 40 mg BID@06,18 PO Last administered on 08/30/16 06:09; Admin Dose 40 MG; Start 08/25/16 at 18:00 Levofloxacin (Levaquin) 500 mg DAILY@06 PO Last administered on 08/30/16 06:09 ; Admin Dose 500 MG; Start 08/27/16 at 15:00 Furosemide (Lasix) 40 mg DAILY IV Last administered on 08/30/16 08:46; Admin Dose 40 MG; Start 08/27/16 at 17:00 MYCHAL COLON Aug 30, 2016 10:39
[2016-08-30 11:43] LABS: ADD SCAN DIFF NO
[2016-08-30 11:46] LABS: ABNORMAL IP MESSAGE 1; BASOPHILS % 0.2 % (0.0-2.0); EOSINOPHILS % 0.2 % (0.0-7.0); HEMATOCRIT 35.6 % (37.0-47.0); HEMOGLOBIN 11.5 g/dl (12.0-16.0); LYMPHOCYTES # 0.3 10^3/ul (0.8-2.9); LYMPHOCYTES % 7.7 % (15.0-51.0); MEAN CORPUSCULAR HEMOGLOBIN 29.7 pg (29.0-33.0); MEAN CORPUSCULAR HGB CONC 32.3 g/dl (32.0-37.0); MEAN PLATELET VOLUME 9.7 fl (7.4-10.4); MONOCYTE # 0.3 10^3/ul (0.3-0.9); MONOCYTES % 6.7 % (0.0-11.0); NEUTROPHIL # 3.6 10^3/ul (1.6-7.5); NEUTROPHILS % 84.5 % (39.0-77.0); PLATELET COUNT 132 10^3/UL (140-415); RED BLOOD COUNT 3.87 10^6/ul (4.20-5.40); WHITE BLOOD COUNT 4.3 10^3/ul (4.8-10.8)
--- NOTE | 2016-08-30 12:24 | PN ---
Date/Time of Note Date/Time of Note DATE: 08/30/16 TIME: 12:22 Assessment/Plan VTE Prophylaxis VTE Prophylaxis Intervention: other Lines/Catheters [facility] Type [facility] PICC Line Central line still needed: Yes Urinary Cath still in place: Yes Reason Cath still needed: urinary retention Assessment/Plan Problems: (1) HIV disease Status: Chronic Comment: Remains on highly active antiretroviral therapy. Continue treatment (2) Chronic active hepatitis C Status: Chronic Comment: Noted and stable (3) Protein calorie malnutrition Status: Chronic Comment: She is on Megace were trying to encourage as much caloric intake as possible please note she is stable for evaluation for discharge (4) Inocencia esophagitis Status: Chronic Comment: Treated (5) Cirrhosis of liver Status: Chronic Comment: Stable and compensated at this time Qualifiers: Hepatic cirrhosis type: other cirrhosis Qualified Code: K74.69 - Other cirrhosis of liver Subjective 24 Hr Interval Summary Free Text/Dictation Pain patient much more clear and conversant compared to 10 days ago Constitutional: no complaints Exam/Review of Systems Vital Signs Vitals Vital Signs Date Time Temp Pulse Resp B/P Pulse Ox O2 Delivery O2 Flow Rate FiO2 08/30/16 09:46 110 20 94 21 08/30/16 09:09 98.6 108/72 08/30/16 08:45 Nasal Cannula 2.0 Intake and Output 08/29/16 08/29/16 08/30/16 15:00 23:00 07:00 Intake Total 800 ml 480 ml 250 ml Output Total 100 ml 1500 ml 300 ml Balance 700 ml -1020 ml -50 ml Exam Constitutional: alert Respiratory: clear to auscultation, normal air movement Cardiovascular: nl pulses, regular rate and rhythm Results Result Diagram: 08/30/16 1125 08/29/16 0732 Results 24 hrs Laboratory Tests Test 08/30/16 11:25 Basophils # 0.0 Basophils % 0.2 Eosinophils # 0.0 Eosinophils % 0.2 Hematocrit 35.6 L Hemoglobin 11.5 L Lymphocytes # 0.3 L Lymphocytes % 7.7 L Mean Corpuscular Hemoglobin 29.7 Mean Corpuscular Hemoglobin Concent 32.3 Mean Corpuscular Volume 92.0 Mean Platelet Volume 9.7 Monocytes # 0.3 Monocytes % 6.7 Neutrophils # 3.6 Neutrophils % 84.5 H Nucleated Red Blood Cells # 0.0 Nucleated Red Blood Cells % 0.0 Platelet Count 132 #L Red Blood Count 3.87 L Red Cell Distribution Width 19.0 H White Blood Count 4.3 L Medications Medications Current Medications Ondansetron HCl (Zofran Inj) 4 mg Q6H PRN IV NAUSEA AND/OR VOMITING Last administered on 08/24/16 17:49; Admin Dose 4 MG; Start 08/09/16 at 07:00 Acetaminophen (Tylenol Supp) 650 mg Q6H PRN [place] PAIN LEVEL 1-3 OR FEVER; Start 08/09/16 at 07:00 Mesalamine (Delzicol Dr) 800 mg BID PO Last administered on 08/30/16 08:45; Admin Dose 800 MG; Start 08/09/16 at 09:00 Efavirenz (Sustiva) 600 mg DAILY PO Last administered on 08/30/16 08:45; Admin Dose 600 MG; Start 08/12/16 at 14:00 Emtricitabine/ Tenofovir (Truvada) 1 tab DAILY PO Last administered on 08:45; Admin Dose 1 TAB; Start 08/12/16 at 14:00 Collagenase (Santyl) 1 applic DAILY TOP Last administered on 08/30/16 08:46; Admin Dose 1 APPLIC; Start 08/12/16 at 14:00 Al Hydrox/Mg Hydrox/Simethicone (Mag-Al Plus) 30 ml Q6H PRN PO GASTROINTESTINAL UPSET Last administered on 08/12/16 15:43; Admin Dose 30 ML; Start 08/12/16 at 15:30 Mirtazapine (Remeron) 15 mg HS PO Last administered on 08/29/16 21:53; Admin Dose 15 MG; Start 08/12/16 at 21:00 Acetaminophen/ Hydrocodone Bitart ([place] (5/325)) 1 tab Q6H PRN PO PAIN Last administered on 08/15/16 22:36; Admin Dose 1 TAB; Start 08/13/16 at 23:30 IV Flush (NS 10 ml) 10 ml PRN PRN IV IV PROTOCOL; Start 08/14/16 at 17:00 Lactobacillus Acidoph/Bulgaricus (Floranex) 1 tab TID PO Last administered on 08:45; Admin Dose 1 TAB; Start 08/15/16 at 21:00 Megestrol Acetate (Megace Susp) 400 mg BID PO Last administered on 08/30/16 08 :44; Admin Dose 400 MG; Start 08/17/16 at 10:30; Stop 09/16/16 at 10:29 Megestrol Acetate (Megace) 40 mg DAILY PO Last administered on 08/30/16 08:45 ; Admin Dose 40 MG; Start 08/19/16 at 15:00 Lorazepam (Ativan) 1 mg Q3 PRN IV ANXIETY Last administered on 08/28/16 17:56; Admin Dose 1 MG; Start 08/20/16 at 22:30 Sucralfate (Carafate) 1 gm QID PO Last administered on 08/30/16 08:45; Admin Dose 1 GM; Start 08/24/16 at 21:00 Morphine Sulfate (morphine) 2 mg Q4H PRN IV PAIN Last administered on 13:07; Admin Dose 2 MG; Start 08/25/16 at 05:30 Pantoprazole (Protonix Tab) 40 mg BID@06,18 PO Last administered on 08/30/16 06:09; Admin Dose 40 MG; Start 08/25/16 at 18:00 Levofloxacin (Levaquin) 500 mg DAILY@06 PO Last administered on 08/30/16 06:09 ; Admin Dose 500 MG; Start 08/27/16 at 15:00 Furosemide (Lasix) 40 mg DAILY IV Last administered on 08/30/16 08:46; Admin Dose 40 MG; Start 08/27/16 at 17:00 SHELBY GILLIAM MD Aug 30, 2016 12:24
[2016-08-30] MEDS ORDERED: SPIRONOLACTONE 25 MG TAB PO ONE (12:30)
--- NOTE | 2016-08-30 13:49 | RADRPT ---
PROCEDURE: Ultrasound chest CLINICAL INDICATION: Assess for left pleural effusion TECHNIQUE: Left thoracic sonography was performed COMPARISON: August 28, 2016 FINDINGS: There is only a small, 2 cm pocket of fluid adjacent to collapsed left lung. At this time, it is no t safe for the patient for ultrasound-guided thoracentesis. IMPRESSION: Only a small, 2 cm pocket of fluid in the left lower chest adjacent to collapsed left lung. At this time, it is not safe for the patient for ultrasound-guided thoracentesis. RPTAT: PP .Flavia Reardon MD, MD Date Time Electronically viewed and signed by .Flavia Reardon MD, MD on 08/30/2016 13:15 .F/
--- NOTE | 2016-08-30 14:04 | CONS ---
Date/Time of Note Date/Time of Note DATE: 08/30/16 TIME: 14:02 Assessment/Plan Assessment/Plan Additional Assessment/Plan Assessment recommendations; 1. 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 Status post thoracentesis without any residual effusion left. 2. HIV positive. 3. Severe generalized weakness. Patient can be discharged home but she is complaining that she can barely walk but is telling me that her father can take care of her at home.. I believe there are decision for discharge of the primary treating team. I will sign off . Thanks for the referral. Consultation Date/Type/Reason Admit Date/Time Aug 09, 2016 at 01:59 Initial Consult Date 08/09/16 Type of Consultation: Pulmonary 24 HR Interval Summary Free Text/Dictation Condition stable. Patient underwent ultrasound of the chest today without relational much residual pleural effusion. She denies any shortness of breath but complained of severe generalized weakness with inability to walk. General exam; young woman, appears quite emaciated. Awake and alert. Currently in no distress. Exam/Review of Systems Vital Signs Vitals Vital Signs Date Time Temp Pulse Resp B/P Pulse Ox O2 Delivery O2 Flow Rate FiO2 08/30/16 12:50 97 21 08/30/16 12:49 115 08/30/16 12:47 20 08/30/16 12:39 98.0 112/73 08/30/16 08:45 Nasal Cannula 2.0 Intake and Output 08/29/16 08/29/16 08/30/16 15:00 23:00 07:00 Intake Total 800 ml 480 ml 250 ml Output Total 100 ml 1500 ml 300 ml Balance 700 ml -1020 ml -50 ml Exam H EENT exam is; supple neck, no JVD. No lymphadenopathy. Midline trachea. Pharynx is clear. Patient has fair dentition. Chest examination; diminished but clear breath sounds bilaterally. S1-S2 audible, no murmurs. Regular rhythm. Abdomen examination; soft, nondistended. No organomegaly. Bowel sounds audible. Extremity exam is; trace peripheral edema. HOME HEALTH MANAGER examination; no focal deficit but the patient does have severe generalized weakness. Results Result Diagram: 08/30/16 1125 08/29/16 0732 Results 24 hrs Laboratory Tests Test 08/30/16 11:25 Basophils # 0.0 Basophils % 0.2 Eosinophils # 0.0 Eosinophils % 0.2 Hematocrit 35.6 L Hemoglobin 11.5 L Lymphocytes # 0.3 L Lymphocytes % 7.7 L Mean Corpuscular Hemoglobin 29.7 Mean Corpuscular Hemoglobin Concent 32.3 Mean Corpuscular Volume 92.0 Mean Platelet Volume 9.7 Monocytes # 0.3 Monocytes % 6.7 Neutrophils # 3.6 Neutrophils % 84.5 H Nucleated Red Blood Cells # 0.0 Nucleated Red Blood Cells % 0.0 Platelet Count 132 #L Red Blood Count 3.87 L Red Cell Distribution Width 19.0 H White Blood Count 4.3 L Medications Medications Current Medications Ondansetron HCl (Zofran Inj) 4 mg Q6H PRN IV NAUSEA AND/OR VOMITING Last administered on 08/24/16 17:49; Admin Dose 4 MG; Start 08/09/16 at 07:00 Acetaminophen (Tylenol Supp) 650 mg Q6H PRN [place] PAIN LEVEL 1-3 OR FEVER; Start 08/09/16 at 07:00 Mesalamine (Delzicol Dr) 800 mg BID PO Last administered on 08/30/16 08:45; Admin Dose 800 MG; Start 08/09/16 at 09:00 Efavirenz (Sustiva) 600 mg DAILY PO Last administered on 08/30/16 08:45; Admin Dose 600 MG; Start 08/12/16 at 14:00 Emtricitabine/ Tenofovir (Truvada) 1 tab DAILY PO Last administered on 08:45; Admin Dose 1 TAB; Start 08/12/16 at 14:00 Collagenase (Santyl) 1 applic DAILY TOP Last administered on 08/30/16 08:46; Admin Dose 1 APPLIC; Start 08/12/16 at 14:00 Al Hydrox/Mg Hydrox/Simethicone (Mag-Al Plus) 30 ml Q6H PRN PO GASTROINTESTINAL UPSET Last administered on 08/12/16 15:43; Admin Dose 30 ML; Start 08/12/16 at 15:30 Mirtazapine (Remeron) 15 mg HS PO Last administered on 08/29/16 21:53; Admin Dose 15 MG; Start 08/12/16 at 21:00 Acetaminophen/ Hydrocodone Bitart ([place] (5/325)) 1 tab Q6H PRN PO PAIN Last administered on 08/15/16 22:36; Admin Dose 1 TAB; Start 08/13/16 at 23:30 IV Flush (NS 10 ml) 10 ml PRN PRN IV IV PROTOCOL; Start 08/14/16 at 17:00 Lactobacillus Acidoph/Bulgaricus (Floranex) 1 tab TID PO Last administered on 13:17; Admin Dose 1 TAB; Start 08/15/16 at 21:00 Megestrol Acetate (Megace Susp) 400 mg BID PO Last administered on 08/30/16 08 :44; Admin Dose 400 MG; Start 08/17/16 at 10:30; Stop 09/16/16 at 10:29 Megestrol Acetate (Megace) 40 mg DAILY PO Last administered on 08/30/16 08:45 ; Admin Dose 40 MG; Start 08/19/16 at 15:00 Lorazepam (Ativan) 1 mg Q3 PRN IV ANXIETY Last administered on 08/28/16 17:56; Admin Dose 1 MG; Start 08/20/16 at 22:30 Sucralfate (Carafate) 1 gm QID PO Last administered on 08/30/16 13:17; Admin Dose 1 GM; Start 08/24/16 at 21:00 Morphine Sulfate (morphine) 2 mg Q4H PRN IV PAIN Last administered on 13:07; Admin Dose 2 MG; Start 08/25/16 at 05:30 Pantoprazole (Protonix Tab) 40 mg BID@06,18 PO Last administered on 08/30/16 06:09; Admin Dose 40 MG; Start 08/25/16 at 18:00 Levofloxacin (Levaquin) 500 mg DAILY@06 PO Last administered on 08/30/16 06:09 ; Admin Dose 500 MG; Start 08/27/16 at 15:00; Stop 09/10/16 at 14:59 Furosemide (Lasix) 20 mg DAILY IV ; Start 08/31/16 at 09:00 Spironolactone (Aldactone) 25 mg DAILY PO ; Start 08/31/16 at 09:00 CHANTELL SULTANA Aug 30, 2016 14:04
[2016-08-30] MEDS: morphine 2 MG INJ IV PRN (17:17)
--- NOTE | 2016-08-30 17:25 | CONS ---
Date/Time of Note Date/Time of Note DATE: 08/30/16 TIME: :17 Assessment/Plan Assessment/Plan Chief Complaint/Hosp Course ID PROGRESS NOTE CURRENT ABX=> Levaquin + ARV MEDS: Truvada + Sustiva s/p Cefepime => DC'd 08/15 Fluconazole. 24H INTERVAL SUMMARY * Remains lethargic/fatigued == opens eyes, noncommunicative == extreme frailty/ debility * Afebrile, VSS, NAD * s/p Thora 08/28/16 (-)Micro PHYSICAL EXAMINATION: GENERAL: VSS, NAD, cachexic F HEENT: Unremarkable -- NECK: Supple, trachea midline. CHEST: Rise symmetrical, without dyspnea on observation HEART: Pulse RRR ABDOMEN: Soft, benign EXTREMITIES: Warm SKIN: Decubs = see photos ID ASSESSMENT 41 yo F admit with: 1. HIV(+)F w/HCV(+)Co-infection w/hx of noncompliance with ARV meds * CD4# 06/25/2016 @ 903 => now 08/12/16 @ 392# 2. Possible CAP superimposed on bilateral effusions per CT * Pleural effusion -> s/p Thora 08/28/16 w/(-)Micro 3. Anasarca w/ascites + bilateral pleural effusions, left greater than right = Exacerbated by low albumin * Last CXR => " These are markedly increased and worse when compared to the prior study." 4. Diarrhea -> hx of IBS ? GI on case=> Cefepime DC'd 5. Severe cachexia w/severe protein calorie malnutrition. 6. Hepatitis C -> mild fatty liver on CT, possible cirrhosis w/ascites and coagulopathy 7. History of Inocencia esophagitis w/odynophagia 8. Hx of GIB resulting in prior admission for Respiratory failure and hemorrhagic shock. 9. Thrombus in the right axillary, cephalic, basilic, and brachial veins. * RUEXT PICC removed 10. Multiple infected wounds w/sacral STG IV * WOUND CULTURE Final Organism 1 CITROBACTER BRAAKII QUANTITY SCANT GROWTH Organism 2 PROTEUS MIRABILIS (+)Tobaccoism 11. Hx of substance abuse w/(-)Urine drug tox screen 12. Hx of Syphilis (-)MRSA Nares (=) Indeterminate QTFG serology due to immunocompromised status INVASIVES: PICC (LUEXT 08/14/16) ABX ALLERGY: KNDA CURRENT ABX: Levaquin + ARV MEDS: Truvada + Sustiva s/p Cefepime => DC'd 08/15 Fluconazole. ID RECOMMENDATIONS 1. Continue current ABX & local wound care . Problems: Consultation Date/Type/Reason Admit Date/Time Aug 09, 2016 at 01:59 Initial Consult Date 08/09/16 Type of Consultation: ID Exam/Review of Systems Vital Signs Vitals Vital Signs Date Time Temp Pulse Resp B/P Pulse Ox O2 Delivery O2 Flow Rate FiO2 08/30/16 16:19 98.0 112 18 101/67 97 08/30/16 12:50 21 08/30/16 08:45 Nasal Cannula 2.0 Intake and Output 08/29/16 08/29/16 08/30/16 15:00 23:00 07:00 Intake Total 800 ml 480 ml 250 ml Output Total 100 ml 1500 ml 300 ml Balance 700 ml -1020 ml -50 ml Results Result Diagram: 08/30/16 1125 08/29/16 0732 Results 24 hrs Laboratory Tests Test 08/30/16 11:25 Basophils # 0.0 Basophils % 0.2 Eosinophils # 0.0 Eosinophils % 0.2 Hematocrit 35.6 L Hemoglobin 11.5 L Lymphocytes # 0.3 L Lymphocytes % 7.7 L Mean Corpuscular Hemoglobin 29.7 Mean Corpuscular Hemoglobin Concent 32.3 Mean Corpuscular Volume 92.0 Mean Platelet Volume 9.7 Monocytes # 0.3 Monocytes % 6.7 Neutrophils # 3.6 Neutrophils % 84.5 H Nucleated Red Blood Cells # 0.0 Nucleated Red Blood Cells % 0.0 Platelet Count 132 #L Red Blood Count 3.87 L Red Cell Distribution Width 19.0 H White Blood Count 4.3 L Medications Medications Current Medications Ondansetron HCl (Zofran Inj) 4 mg Q6H PRN IV NAUSEA AND/OR VOMITING Last administered on 08/24/16 17:49; Admin Dose 4 MG; Start 08/09/16 at 07:00 Acetaminophen (Tylenol Supp) 650 mg Q6H PRN [place] PAIN LEVEL 1-3 OR FEVER; Start 08/09/16 at 07:00 Mesalamine (Delzicol Dr) 800 mg BID PO Last administered on 08/30/16 08:45; Admin Dose 800 MG; Start 08/09/16 at 09:00 Efavirenz (Sustiva) 600 mg DAILY PO Last administered on 08/30/16 08:45; Admin Dose 600 MG; Start 08/12/16 at 14:00 Emtricitabine/ Tenofovir (Truvada) 1 tab DAILY PO Last administered on 08:45; Admin Dose 1 TAB; Start 08/12/16 at 14:00 Collagenase (Santyl) 1 applic DAILY TOP Last administered on 08/30/16 08:46; Admin Dose 1 APPLIC; Start 08/12/16 at 14:00 Al Hydrox/Mg Hydrox/Simethicone (Mag-Al Plus) 30 ml Q6H PRN PO GASTROINTESTINAL UPSET Last administered on 08/12/16 15:43; Admin Dose 30 ML; Start 08/12/16 at 15:30 Mirtazapine (Remeron) 15 mg HS PO Last administered on 08/29/16 21:53; Admin Dose 15 MG; Start 08/12/16 at 21:00 Acetaminophen/ Hydrocodone Bitart ([place] (5/325)) 1 tab Q6H PRN PO PAIN Last administered on 08/15/16 22:36; Admin Dose 1 TAB; Start 08/13/16 at 23:30 IV Flush (NS 10 ml) 10 ml PRN PRN IV IV PROTOCOL; Start 08/14/16 at 17:00 Lactobacillus Acidoph/Bulgaricus (Floranex) 1 tab TID PO Last administered on 13:17; Admin Dose 1 TAB; Start 08/15/16 at 21:00 Megestrol Acetate (Megace Susp) 400 mg BID PO Last administered on 08/30/16 08 :44; Admin Dose 400 MG; Start 08/17/16 at 10:30; Stop 09/16/16 at 10:29 Megestrol Acetate (Megace) 40 mg DAILY PO Last administered on 08/30/16 08:45 ; Admin Dose 40 MG; Start 08/19/16 at 15:00 Lorazepam (Ativan) 1 mg Q3 PRN IV ANXIETY Last administered on 08/28/16 17:56; Admin Dose 1 MG; Start 08/20/16 at 22:30 Sucralfate (Carafate) 1 gm QID PO Last administered on 08/30/16 13:17; Admin Dose 1 GM; Start 08/24/16 at 21:00 Morphine Sulfate (morphine) 2 mg Q4H PRN IV PAIN Last administered on 13:07; Admin Dose 2 MG; Start 08/25/16 at 05:30 Pantoprazole (Protonix Tab) 40 mg BID@06,18 PO Last administered on 08/30/16 06:09; Admin Dose 40 MG; Start 08/25/16 at 18:00 Levofloxacin (Levaquin) 500 mg DAILY@06 PO Last administered on 08/30/16 06:09 ; Admin Dose 500 MG; Start 08/27/16 at 15:00; Stop 09/10/16 at 14:59 Furosemide (Lasix) 20 mg DAILY IV ; Start 08/31/16 at 09:00 Spironolactone (Aldactone) 25 mg DAILY PO ; Start 08/31/16 at 09:00 NILDA JOSE NP Aug 30, 2016 17:25
[2016-08-30] MEDS: MIRTAZAPINE 15 MG TAB PO SCH (21:00)
[2016-08-30] MEDS: LORAZEPAM 2 MG INJ IV PRN (21:19)
[2016-08-31] MEDS: ALBUTEROL/IPRATROPIUM (NEB) 3 ML AMP HHN SCH ×6 (00:54→21:48)
[2016-08-31 05:40] LABS: ADD SCAN DIFF NO
[2016-08-31] MEDS: LEVOFLOXACIN 500 MG TAB PO SCH (05:42)
[2016-08-31] MEDS: morphine 2 MG INJ IV PRN (05:42)
[2016-08-31] MEDS: PANTOPRAZOLE (EC) 40 MG TAB PO SCH ×2 (05:42→18:22)
[2016-08-31 05:56] LABS: EOSINOPHILS % 0.7 % (0.0-7.0); HEMATOCRIT 31.5 % (37.0-47.0); HEMOGLOBIN 10.1 g/dl (12.0-16.0); LYMPHOCYTES # 0.7 10^3/ul (0.8-2.9); LYMPHOCYTES % 16.5 % (15.0-51.0); MEAN CORPUSCULAR HEMOGLOBIN 29.6 pg (29.0-33.0); MEAN CORPUSCULAR HGB CONC 32.1 g/dl (32.0-37.0); MEAN CORPUSCULAR VOLUME 92.4 fl (82.0-101.0); MEAN PLATELET VOLUME 9.7 fl (7.4-10.4); MONOCYTE # 0.3 10^3/ul (0.3-0.9); NEUTROPHIL # 3.1 10^3/ul (1.6-7.5); NEUTROPHILS % 73.6 % (39.0-77.0); PLATELET COUNT 131 10^3/UL (140-415); RED BLOOD COUNT 3.41 10^6/ul (4.20-5.40); RED CELL DISTRIBUTION WIDTH 18.6 % (11.5-14.5); WHITE BLOOD COUNT 4.2 10^3/ul (4.8-10.8)
[2016-08-31 06:18] LABS: CREATININE 0.52 mg/dl (0.44-1.00)
[2016-08-31 06:19] LABS: CALCIUM 7.2 mg/dl (8.4-10.2)
[2016-08-31 06:44] LABS: POTASSIUM 2.7 mmol/L (3.5-5.1)
[2016-08-31] MEDS: POTASSIUM CHLORIDE 250 ML IVPB SCH ×2 (08:20→12:35)
[2016-08-31] MEDS: FUROSEMIDE 40 MG INJ IV SCH (09:00)
[2016-08-31] MEDS: SUCRALFATE 1 GM TAB PO SCH ×4 (09:37→23:10)
[2016-08-31] MEDS: EMTRICITABINE/TENOFOVIR TAB PO SCH (09:37)
[2016-08-31] MEDS: MEGESTROL (40 MG/ML) 10ML CUP PO SCH ×2 (09:37→23:10)
[2016-08-31] MEDS: SPIRONOLACTONE 25 MG TAB PO SCH (09:37)
[2016-08-31] MEDS: MESALAMINE (EC) 400 MG CAP PO SCH ×2 (09:37→23:10)
[2016-08-31] MEDS: EFAVIRENZ 600 MG TAB PO SCH (09:37)
[2016-08-31] MEDS: LACTOBACILLUS CHEW TAB PO SCH ×3 (09:37→23:10)
[2016-08-31] MEDS: COLLAGENASE 30 GM TUBE TOP SCH (09:47)
--- NOTE | 2016-08-31 12:09 | PN ---
Date/Time of Note Date/Time of Note DATE: 08/31/16 TIME: 12:06 Assessment/Plan VTE Prophylaxis VTE Prophylaxis Intervention: other Lines/Catheters IV [facility]ter Type (from [facility] PICC Line Central line still needed: Yes (Specialized medicines) Urinary Cath still in place: Yes Reason Cath still needed: urinary retention Assessment/Plan Problems: (1) Hypokalemia Status: Acute Comment: We will try and replace. She is on Aldactone with her Lasix which is a appropriate for the cirrhosis. It is possible that some of her potassium losses are actually due to diarrhea (2) HIV disease Status: Chronic Comment: On highly active antiretroviral therapy ID is assisting. Please note with the lung disease identified I am concerned about the possibility that she could have a mycobacterial infection (3) Chronic active hepatitis C Status: Chronic Comment: Noted (4) Protein calorie malnutrition Status: Chronic Comment: On treatment (5) Cirrhosis of liver Status: Chronic Comment: On treatment Qualifiers: Hepatic cirrhosis type: other cirrhosis Qualified Code: K74.69 - Other cirrhosis of liver Subjective 24 Hr Interval Summary Free Text/Dictation Patient awakens and will answer questions. She has been moved to a different unit Respiratory: no complaints Cardiovascular: no complaints Gastrointestinal: diarrhea Exam/Review of Systems Vital Signs Vitals Vital Signs Date Time Temp Pulse Resp B/P Pulse Ox O2 Delivery O2 Flow Rate FiO2 08/31/16 08:00 Nasal Cannula 2.0 08/31/16 05:56 93 08/31/16 05:56 115 20 08/30/16 21:24 21 08/30/16 21:03 98.4 110/76 Intake and Output 08/30/16 08/30/16 08/31/16 14:59 22:59 06:59 Intake Total 700 ml 200 ml Output Total 1900 ml 400 ml Balance -1200 ml -200 ml Exam Constitutional: alert, oriented Respiratory: clear to auscultation, normal air movement Cardiovascular: nl pulses, regular rate and rhythm Results Result Diagram: 08/31/16 0445 08/31/16 0445 Results 24 hrs Laboratory Tests Test 08/30/16 17:46 08/31/16 04:45 Magnesium Level 1.7 Anion Gap 8 Basophils # 0.0 Basophils % 0.0 Blood Urea Nitrogen 16 Calcium Level 7.2 L Carbon Dioxide Level 30 Chloride Level 107 Creatinine 0.52 Eosinophils # 0.0 Eosinophils % 0.7 Glucose Level 83 Hematocrit 31.5 L Hemoglobin 10.1 L Lymphocytes # 0.7 L Lymphocytes % 16.5 Mean Corpuscular Hemoglobin 29.6 Mean Corpuscular Hemoglobin Concent 32.1 Mean Corpuscular Volume 92.4 Mean Platelet Volume 9.7 Monocytes # 0.3 Monocytes % 8.0 Neutrophils # 3.1 Neutrophils % 73.6 Nucleated Red Blood Cells # 0.0 Nucleated Red Blood Cells % 0.0 Platelet Count 131 L Potassium Level 2.7 *L Red Blood Count 3.41 L Red Cell Distribution Width 18.6 H Sodium Level 142 White Blood Count 4.2 L Medications Medications Current Medications Ondansetron HCl (Zofran Inj) 4 mg Q6H PRN IV NAUSEA AND/OR VOMITING Last administered on 08/24/16 17:49; Admin Dose 4 MG; Start 08/09/16 at 07:00 Acetaminophen (Tylenol Supp) 650 mg Q6H PRN [place] PAIN LEVEL 1-3 OR FEVER; Start 08/09/16 at 07:00 Mesalamine (Delzicol Dr) 800 mg BID PO Last administered on 08/31/16 09:37; Admin Dose 800 MG; Start 08/09/16 at 09:00 Efavirenz (Sustiva) 600 mg DAILY PO Last administered on 08/31/16 09:37; Admin Dose 600 MG; Start 08/12/16 at 14:00 Emtricitabine/ Tenofovir (Truvada) 1 tab DAILY PO Last administered on 09:37; Admin Dose 1 TAB; Start 08/12/16 at 14:00 Collagenase (Santyl) 1 applic DAILY TOP Last administered on 08/31/16 09:47; Admin Dose 1 APPLIC; Start 08/12/16 at 14:00 Al Hydrox/Mg Hydrox/Simethicone (Mag-Al Plus) 30 ml Q6H PRN PO GASTROINTESTINAL UPSET Last administered on 08/12/16 15:43; Admin Dose 30 ML; Start 08/12/16 at 15:30 Mirtazapine (Remeron) 15 mg HS PO Last administered on 08/30/16 21:00; Admin Dose 15 MG; Start 08/12/16 at 21:00 Acetaminophen/ Hydrocodone Bitart ([place] (5/325)) 1 tab Q6H PRN PO PAIN Last administered on 08/15/16 22:36; Admin Dose 1 TAB; Start 08/13/16 at 23:30 IV Flush (NS 10 ml) 10 ml PRN PRN IV IV PROTOCOL; Start 08/14/16 at 17:00 Lactobacillus Acidoph/Bulgaricus (Floranex) 1 tab TID PO Last administered on 09:37; Admin Dose 1 TAB; Start 08/15/16 at 21:00 Megestrol Acetate (Megace Susp) 400 mg BID PO Last administered on 08/31/16 09 :37; Admin Dose 400 MG; Start 08/17/16 at 10:30; Stop 09/16/16 at 10:29 Megestrol Acetate (Megace) 40 mg DAILY PO Last administered on 08/30/16 08:45 ; Admin Dose 40 MG; Start 08/19/16 at 15:00 Lorazepam (Ativan) 1 mg Q3 PRN IV ANXIETY Last administered on 08/30/16 21:19 ; Admin Dose 1 MG; Start 08/20/16 at 22:30 Sucralfate (Carafate) 1 gm QID PO Last administered on 08/31/16 09:37; Admin Dose 1 GM; Start 08/24/16 at 21:00 Morphine Sulfate (morphine) 2 mg Q4H PRN IV PAIN Last administered on 05:42; Admin Dose 2 MG; Start 08/25/16 at 05:30 Pantoprazole (Protonix Tab) 40 mg BID@06,18 PO Last administered on 08/31/16 05:42; Admin Dose 40 MG; Start 08/25/16 at 18:00 Levofloxacin (Levaquin) 500 mg DAILY@06 PO Last administered on 08/31/16 05:42 ; Admin Dose 500 MG; Start 08/27/16 at 15:00; Stop 09/10/16 at 14:59 Furosemide (Lasix) 20 mg DAILY IV ; Start 08/31/16 at 09:00 Spironolactone 25 mg 25 mg DAILY PO Last administered on 08/31/16 09:37; Admin Dose 25 MG; Start 08/31/16 at 09:00 Potassium Chloride (KCl 40 MEQ/250 ML NS) 250 ml @ 62.5 mls/hr Q4H IVPB Last administered on 08/31/16t 08:20; Admin Dose 62.5 MLS/HR; Start 08/31/16 at 07:30 ; Stop 08/31/16 at 15:29 SHELBY GILLIAM MD Aug 31, 2016 12:09
[2016-08-31] MEDS: MEGESTROL 40 MG TAB PO SCH (12:35)
[2016-08-31] MEDS: LORAZEPAM 2 MG INJ IV PRN (12:58)
[2016-08-31] MEDS ORDERED: POTASSIUM CHLORIDE (SR) 20 MEQ TAB PO SCH (13:00)
[2016-08-31] MEDS ORDERED: TESTOSTERONE CYPIONATE 200 MG IM ONE (13:30)
[2016-08-31] MEDS ORDERED: CYANOCOBALAMIN 1000 MCG INJ SC ONE (13:30)
[2016-08-31 19:00] VITALS: BP 107/79; RESP 22
[2016-08-31 20:15] LABS: POTASSIUM 3.8 mmol/L (3.5-5.1)
[2016-08-31 20:18] LABS: CALCIUM 7.3 mg/dl (8.4-10.2); CREATININE 0.41 mg/dl (0.44-1.00)
--- NOTE | 2016-08-31 20:39 | CONS ---
Date/Time of Note Date/Time of Note DATE: 08/31/16 TIME: 19:59 Assessment/Plan Assessment/Plan Chief Complaint/Hosp Course ID PROGRESS NOTE CURRENT ABX=> Levaquin + ARV MEDS: Truvada + Sustiva STARTING 09/01/16 Rx for presumptive MAC w/ Azith 500mg po daily + Ethambutol 15mg/kg daily s/p Cefepime => DC'd 08/15 Fluconazole. 24H INTERVAL SUMMARY * Awakens and responsive -- generalized weakness/lethargy persisting * Appreciate Dr. Wang's concern for Atypical MAC infection * AFB smear (-) x1 -- of course Atypical MAC is a slow grower and may not result in (+)AFB smear for several weeks * Afebrile, VSS, NAD * s/p Thora 08/28/16 (-)Micro PHYSICAL EXAMINATION: GENERAL: VSS, NAD, cachexic F HEENT: Unremarkable -- NECK: Supple, trachea midline. CHEST: Rise symmetrical, without dyspnea on observation HEART: Pulse RRR ABDOMEN: Soft, benign EXTREMITIES: Warm SKIN: Decubs = see photos ID ASSESSMENT 41 yo F admit with: 1. HIV(+)F w/HCV(+)Co-infection w/hx of noncompliance with ARV meds * CD4# 06/25/2016 @ 903 => now 08/12/16 @ 392# 2. PNA ? Atypical MAC vs CAP superimposed on bilateral effusions per CT * Pleural effusion -> s/p Thora 08/28/16 w/(-)Micro; (-)AFB Smear ==> PENDING AFB Cx for MAC 3. Anasarca w/ascites + bilateral pleural effusions, left greater than right = Exacerbated by low albumin * Last CXR => " These are markedly increased and worse when compared to the prior study." 4. Diarrhea -> hx of IBS ? GI on case=> Cefepime DC'd 5. Severe cachexia w/severe protein calorie malnutrition. 6. Hepatitis C -> mild fatty liver on CT, possible cirrhosis w/ascites and coagulopathy 7. History of Inocencia esophagitis w/odynophagia 8. Hx of GIB resulting in prior admission for Respiratory failure and hemorrhagic shock. 9. Thrombus in the right axillary, cephalic, basilic, and brachial veins. * RUEXT PICC removed 10. Multiple infected wounds w/sacral STG IV * WOUND CULTURE Final Organism 1 CITROBACTER BRAAKII QUANTITY SCANT GROWTH Organism 2 PROTEUS MIRABILIS (+)Tobaccoism 11. Hx of substance abuse w/(-)Urine drug tox screen 12. Hx of Syphilis (-)MRSA Nares (=) Indeterminate QTFG serology due to immunocompromised status INVASIVES: PICC (LUEXT 08/14/16) ABX ALLERGY: KNDA CURRENT ABX: Levaquin + ARV MEDS: Truvada + Sustiva STARTING 09/01/16 Rx for presumptive MAC w/ Azith 500mg po daily + Ethambutol 15mg/kg daily dc Levaquin s/p Cefepime => DC'd 08/15 Fluconazole. ID RECOMMENDATIONS 1. Appreciate Dr. Wang's concern for Atypical MAC infection * AFB smear (-) x1 -- of course Atypical MAC is a slow grower and may not result in (+)AFB CULTURE for several weeks * Will order AFB Blood Cx x2 -- one sample tonight from PICC and one from Peripheral Stick in am 09/01 * Sputum for AFB x2 ordered if able to produce = am 09/01 and again am 09/02 2. Since QTFG serology (=) reading and patient is symptomatic -- Will start empiric ABX with Azith 500mg po daily + Ethambutol 15mg/KG daily * ABX will need to be adjusted in the event (+)AFB culture which will presumptively take several weeks to rule in or out. 3. If not able to obtain AFB sputum == consider BAL 4. Due to lack of improvement despite absence of AIDS == will send off CMV AB; Toxo, Cocci, Crypto; RPR == please follow up 5. NOTED: 08/24/16 GI PATHO REPORT: COMMENT: An immunoperoxidase stain for CMV is in progress at [facility] and a supplemental report of that result will follow. . . . Problems: Consultation Date/Type/Reason Admit Date/Time Aug 09, 2016 at 01:59 Initial Consult Date 08/09/16 Type of Consultation: ID Exam/Review of Systems Vital Signs Vitals Vital Signs Date Time Temp Pulse Resp B/P Pulse Ox O2 Delivery O2 Flow Rate FiO2 08/31/16 08:00 Nasal Cannula 2.0 08/31/16 05:56 93 08/31/16 05:56 115 20 08/30/16 21:24 21 08/30/16 21:03 98.4 110/76 Intake and Output 08/30/16 08/30/16 08/31/16 15:00 23:00 07:00 Intake Total 700 ml 200 ml Output Total 1900 ml 400 ml Balance -1200 ml -200 ml Results Result Diagram: 08/31/16 0445 08/31/16 0445 Results 24 hrs Laboratory Tests Test 08/31/16 04:45 Anion Gap 8 Basophils # 0.0 Basophils % 0.0 Blood Urea Nitrogen 16 Calcium Level 7.2 L Carbon Dioxide Level 30 Chloride Level 107 Creatinine 0.52 Eosinophils # 0.0 Eosinophils % 0.7 Glucose Level 83 Hematocrit 31.5 L Hemoglobin 10.1 L Lymphocytes # 0.7 L Lymphocytes % 16.5 Mean Corpuscular Hemoglobin 29.6 Mean Corpuscular Hemoglobin Concent 32.1 Mean Corpuscular Volume 92.4 Mean Platelet Volume 9.7 Monocytes # 0.3 Monocytes % 8.0 Neutrophils # 3.1 Neutrophils % 73.6 Nucleated Red Blood Cells # 0.0 Nucleated Red Blood Cells % 0.0 Platelet Count 131 L Potassium Level 2.7 *L Red Blood Count 3.41 L Red Cell Distribution Width 18.6 H Sodium Level 142 White Blood Count 4.2 L Medications Medications Current Medications Ondansetron HCl (Zofran Inj) 4 mg Q6H PRN IV NAUSEA AND/OR VOMITING Last administered on 08/24/16 17:49; Admin Dose 4 MG; Start 08/09/16 at 07:00 Acetaminophen (Tylenol Supp) 650 mg Q6H PRN [place] PAIN LEVEL 1-3 OR FEVER; Start 08/09/16 at 07:00 Mesalamine (Delzicol Dr) 800 mg BID PO Last administered on 08/31/16 09:37; Admin Dose 800 MG; Start 08/09/16 at 09:00 Efavirenz (Sustiva) 600 mg DAILY PO Last administered on 08/31/16 09:37; Admin Dose 600 MG; Start 08/12/16 at 14:00 Emtricitabine/ Tenofovir (Truvada) 1 tab DAILY PO Last administered on 09:37; Admin Dose 1 TAB; Start 08/12/16 at 14:00 Collagenase (Santyl) 1 applic DAILY TOP Last administered on 08/31/16 09:47; Admin Dose 1 APPLIC; Start 08/12/16 at 14:00 Al Hydrox/Mg Hydrox/Simethicone (Mag-Al Plus) 30 ml Q6H PRN PO GASTROINTESTINAL UPSET Last administered on 08/12/16 15:43; Admin Dose 30 ML; Start 08/12/16 at 15:30 Mirtazapine (Remeron) 15 mg HS PO Last administered on 08/30/16 21:00; Admin Dose 15 MG; Start 08/12/16 at 21:00 Acetaminophen/ Hydrocodone Bitart ([place] (5/325)) 1 tab Q6H PRN PO PAIN Last administered on 08/15/16 22:36; Admin Dose 1 TAB; Start 08/13/16 at 23:30 IV Flush (NS 10 ml) 10 ml PRN PRN IV IV PROTOCOL; Start 08/14/16 at 17:00 Lactobacillus Acidoph/Bulgaricus (Floranex) 1 tab TID PO Last administered on 12:35; Admin Dose 1 TAB; Start 08/15/16 at 21:00 Megestrol Acetate (Megace Susp) 400 mg BID PO Last administered on 08/31/16 09 :37; Admin Dose 400 MG; Start 08/17/16 at 10:30; Stop 09/16/16 at 10:29 Megestrol Acetate (Megace) 40 mg DAILY PO Last administered on 08/31/16 12:35 ; Admin Dose 40 MG; Start 08/19/16 at 15:00 Lorazepam (Ativan) 1 mg Q3 PRN IV ANXIETY Last administered on 08/31/16 12:58 ; Admin Dose 1 MG; Start 08/20/16 at 22:30 Sucralfate (Carafate) 1 gm QID PO Last administered on 08/31/16 18:22; Admin Dose 1 GM; Start 08/24/16 at 21:00 Morphine Sulfate (morphine) 2 mg Q4H PRN IV PAIN Last administered on 05:42; Admin Dose 2 MG; Start 08/25/16 at 05:30 Pantoprazole (Protonix Tab) 40 mg BID@18 PO Last administered on 08/31/16 18:22; Admin Dose 40 MG; Start 08/25/16 at 18:00 Levofloxacin (Levaquin) 500 mg DAILY@06 PO Last administered on 08/31/16 05:42 ; Admin Dose 500 MG; Start 08/27/16 at 15:00; Stop 09/10/16 at 14:59 Furosemide (Lasix) 20 mg DAILY IV ; Start 08/31/16 at 09:00 Spironolactone (Aldactone) 25 mg DAILY PO Last administered on 08/31/16 09:37 ; Admin Dose 25 MG; Start 08/31/16 at 09:00 NILDA JOSE NP Aug 31, 2016 20:10
[2016-08-31] MEDS: MIRTAZAPINE 15 MG TAB PO SCH (23:10)
[2016-09-01] MEDS: ALBUTEROL/IPRATROPIUM (NEB) 3 ML AMP HHN SCH ×6 (00:47→21:00)
[2016-09-01] MEDS: PANTOPRAZOLE (EC) 40 MG TAB PO SCH ×2 (05:56→17:57)
[2016-09-01 06:39] LABS: ADD SCAN DIFF NO
[2016-09-01 06:44] LABS: ABNORMAL IP MESSAGE 1; HEMATOCRIT 32.5 % (37.0-47.0); HEMOGLOBIN 10.5 g/dl (12.0-16.0); LYMPHOCYTES # 0.3 10^3/ul (0.8-2.9); LYMPHOCYTES % 6.3 % (15.0-51.0); MEAN CORPUSCULAR HEMOGLOBIN 29.9 pg (29.0-33.0); MEAN CORPUSCULAR HGB CONC 32.3 g/dl (32.0-37.0); MEAN CORPUSCULAR VOLUME 92.6 fl (82.0-101.0); MEAN PLATELET VOLUME 9.5 fl (7.4-10.4); MONOCYTE # 0.3 10^3/ul (0.3-0.9); MONOCYTES % 5.9 % (0.0-11.0); NEUTROPHIL # 4.3 10^3/ul (1.6-7.5); PLATELET COUNT 118 10^3/UL (140-415); RED BLOOD COUNT 3.51 10^6/ul (4.20-5.40); RED CELL DISTRIBUTION WIDTH 18.7 % (11.5-14.5); WHITE BLOOD COUNT 4.9 10^3/ul (4.8-10.8)
[2016-09-01 06:54] LABS: POTASSIUM 3.6 mmol/L (3.5-5.1)
[2016-09-01 06:56] LABS: CREATININE 0.37 mg/dl (0.44-1.00)
[2016-09-01 06:57] LABS: CALCIUM 7.3 mg/dl (8.4-10.2)
[2016-09-01 08:02] VITALS: BP 107/89; RESP 16
[2016-09-01] MEDS: SPIRONOLACTONE 25 MG TAB PO SCH (09:00)
[2016-09-01] MEDS: SUCRALFATE 1 GM TAB PO SCH ×4 (09:13→21:00)
[2016-09-01] MEDS: EFAVIRENZ 600 MG TAB PO SCH (09:14)
[2016-09-01] MEDS: LACTOBACILLUS CHEW TAB PO SCH ×3 (09:14→21:00)
[2016-09-01] MEDS: MESALAMINE (EC) 400 MG CAP PO SCH ×2 (09:15→21:00)
[2016-09-01] MEDS: MEGESTROL 40 MG TAB PO SCH (09:15)
[2016-09-01] MEDS: EMTRICITABINE/TENOFOVIR TAB PO SCH (09:15)
[2016-09-01] MEDS: FUROSEMIDE 40 MG INJ IV SCH (09:19)
[2016-09-01] MEDS: AZITHROMYCIN 250 MG TAB PO SCH (09:21)
[2016-09-01] MEDS: ETHAMBUTOL 400 MG TAB PO SCH (09:22)
[2016-09-01] MEDS: MEGESTROL (40 MG/ML) 10ML CUP PO SCH ×2 (09:26→21:00)
[2016-09-01] MEDS: COLLAGENASE 30 GM TUBE TOP SCH (09:27)
--- NOTE | 2016-09-01 12:11 | CONS ---
Date/Time of Note Date/Time of Note DATE: 09/01/16 TIME: 12:07 Assessment/Plan Assessment/Plan Chief Complaint/Hosp Course SUBJECTIVE: No acute changes, sleeping, looks comfortable, no fevers ANTIMICROBIALS: 1. Sustiva. 2. Truvada. 3. Zithromax 4. Ethambutol PHYSICAL EXAMINATION: GENERAL: This is a cachectic, ill-appearing, middle-aged woman who is awake, lying comfortably in bed. HEENT: Head atraumatic, normocephalic. Sclerae anicteric. Buccal mucosa dry. NECK: Supple, trachea midline. CHEST: Rise symmetrical. Breath sounds diminished to bases. HEART: S1, S2. ABDOMEN: Soft. Bowel tones present. EXTREMITIES: With bilateral hand edema and cyanosis of the fingers and wrists. SKIN: Severe anasarca. ASSESSMENT: 1. S/p GIB===> EGD noted 2. PNA/pleural effusions==> s/p R thoracentesis 08/28/16 3. Human immunodeficiency virus positive with a history of noncompliance with human immunodeficiency virus medications. A CD4 count 392. 4. 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 Cultures growing citrobacter and Proteus mirabilis. 4. Cachexia. 5. Hx of Inocencia esophagitis. 6. Anasarca 2 to protein calorie malnutrition. 7. Hepatitis C virus. 8. Right upper extremity thrombosis, status post PICC line removed. 9. History of substance abuse. 10.?MAC PLAN: Remains stable, continue present care, abx, aspiration precaution, continue emp abx for possible atypical MAC===> pending AFB DW staff Problems: Consultation Date/Type/Reason Admit Date/Time Aug 09, 2016 at 01:59 Initial Consult Date 08/09/16 Type of Consultation: ID Exam/Review of Systems Vital Signs Vitals Vital Signs Date Time Temp Pulse Resp B/P Pulse Ox O2 Delivery O2 Flow Rate FiO2 09/01/16 08:12 99 3.0 09/01/16 08:12 102 18 Nasal Cannula 09/01/16 08:02 97.4 107/89 08/30/16 21:24 21 Intake and Output 08/31/16 08/31/16 09/01/16 15:00 23:00 07:00 Intake Total 250 ml 1290 ml 340 ml Output Total 700 ml Balance 250 ml 1290 ml -360 ml Results Result Diagram: 09/01/16 0618 09/01/16 0618 Results 24 hrs Laboratory Tests Test 08/31/16 19:55 09/01/16 06:18 Anion Gap 8 7 L Blood Urea Nitrogen 14 13 Calcium Level 7.3 L 7.3 L Carbon Dioxide Level 27 28 Chloride Level 109 108 Creatinine 0.41 L 0.37 L Glucose Level 90 83 Potassium Level 3.8 3.6 Sodium Level 140 139 Basophils # 0.0 Basophils % 0.0 Eosinophils # 0.0 Eosinophils % 0.0 Hematocrit 32.5 L Hemoglobin 10.5 L Lymphocytes # 0.3 L Lymphocytes % 6.3 L Mean Corpuscular Hemoglobin 29.9 Mean Corpuscular Hemoglobin Concent 32.3 Mean Corpuscular Volume 92.6 Mean Platelet Volume 9.5 Monocytes # 0.3 Monocytes % 5.9 Neutrophils # 4.3 Neutrophils % 87.0 H Nucleated Red Blood Cells # 0.0 Nucleated Red Blood Cells % 0.0 Platelet Count 118 L Red Blood Count 3.51 L Red Cell Distribution Width 18.7 H White Blood Count 4.9 Medications Medications Current Medications Ondansetron HCl (Zofran Inj) 4 mg Q6H PRN IV NAUSEA AND/OR VOMITING Last administered on 08/24/16 17:49; Admin Dose 4 MG; Start 08/09/16 at 07:00 Acetaminophen (Tylenol Supp) 650 mg Q6H PRN [place] PAIN LEVEL 1-3 OR FEVER; Start 08/09/16 at 07:00 Mesalamine (Delzicol Dr) 800 mg BID PO Last administered on 09/01/16 09:15; Admin Dose 800 MG; Start 08/09/16 at 09:00 Efavirenz (Sustiva) 600 mg DAILY PO Last administered on 09/01/16 09:14; Admin Dose 600 MG; Start 08/12/16 at 14:00 Emtricitabine/ Tenofovir (Truvada) 1 tab DAILY PO Last administered on 09:15; Admin Dose 1 TAB; Start 08/12/16 at 14:00 Collagenase (Santyl) 1 applic DAILY TOP Last administered on 09/01/16 09:27; Admin Dose 1 APPLIC; Start 08/12/16 at 14:00 Al Hydrox/Mg Hydrox/Simethicone (Mag-Al Plus) 30 ml Q6H PRN PO GASTROINTESTINAL UPSET Last administered on 08/12/16 15:43; Admin Dose 30 ML; Start 08/12/16 at 15:30 Mirtazapine (Remeron) 15 mg HS PO Last administered on 08/31/16 23:10; Admin Dose 15 MG; Start 08/12/16 at 21:00 Acetaminophen/ Hydrocodone Bitart ([place] (5/325)) 1 tab Q6H PRN PO PAIN Last administered on 08/15/16 22:36; Admin Dose 1 TAB; Start 08/13/16 at 23:30 IV Flush (NS 10 ml) 10 ml PRN PRN IV IV PROTOCOL; Start 08/14/16 at 17:00 Lactobacillus Acidoph/Bulgaricus (Floranex) 1 tab TID PO Last administered on 12:01; Admin Dose 1 TAB; Start 08/15/16 at 21:00 Megestrol Acetate (Megace Susp) 400 mg BID PO Last administered on 09/01/16 09 :26; Admin Dose 400 MG; Start 08/17/16 at 10:30; Stop 09/16/16 at 10:29 Megestrol Acetate (Megace) 40 mg DAILY PO Last administered on 09/01/16 09:15 ; Admin Dose 40 MG; Start 08/19/16 at 15:00 Lorazepam (Ativan) 1 mg Q3 PRN IV ANXIETY Last administered on 08/31/16 12:58 ; Admin Dose 1 MG; Start 08/20/16 at 22:30 Sucralfate (Carafate) 1 gm QID PO Last administered on 09/01/16 12:01; Admin Dose 1 GM; Start 08/24/16 at 21:00 Morphine Sulfate (morphine) 2 mg Q4H PRN IV PAIN Last administered on 05:42; Admin Dose 2 MG; Start 08/25/16 at 05:30 Pantoprazole (Protonix Tab) 40 mg BID@06,18 PO Last administered on 09/01/16 05:56; Admin Dose 40 MG; Start 08/25/16 at 18:00 Furosemide (Lasix) 20 mg DAILY IV Last administered on 09/01/16 09:19; Admin Dose 20 MG; Start 08/31/16 at 09:00 Spironolactone (Aldactone) 25 mg DAILY PO Last administered on 08/31/16 09:37 ; Admin Dose 25 MG; Start 08/31/16 at 09:00 Azithromycin (Zithromax) 500 mg DAILY PO Last administered on 09/01/16 09:21; Admin Dose 500 MG; Start 09/01/16 at 09:00 Ethambutol HCl (Myambutol) 600 mg DAILY PO Last administered on 09/01/16 09:22 ; Admin Dose 600 MG; Start 09/01/16 at 09:00 AGUILA BURGOS NP Sep 01, 2016 12:11
--- NOTE | 2016-09-01 18:56 | PN ---
Date/Time of Note Date/Time of Note DATE: 09/01/16 TIME: 18:46 Assessment/Plan VTE Prophylaxis VTE Prophylaxis Intervention: SCD's Assessment/Plan Chief Complaint/Hosp Course 1. Debility secondary to cachexia with HIV infection ID on case continue therapy, CD4 count at 392 2. Anemia status post EGD with no significant findings, etiology secondary to malnutrition and HIV as well as cirrhosis GI signed off, stable 3. 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 PNA/pleural effusions==> s/p R thoracentesis 08/28/16 On empiric therapy for possible atypical MAC, pending AFB 5. 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 Cultures growing citrobacter and Proteus mirabilis. 6. Hx of Inocencia esophagitis. 7. Anasarca secondary to protein calorie malnutrition. 8. Right upper extremity thrombosis, status post PICC line removed. 9. History of substance abuse 10. Hypokalemia-resolved PPx- SCD's Problems: Subjective 24 Hr Interval Summary Constitutional: disoriented Exam/Review of Systems Vital Signs Vitals Vital Signs Date Time Temp Pulse Resp B/P Pulse Ox O2 Delivery O2 Flow Rate FiO2 09/01/16 17:26 99 3.0 09/01/16 17:26 108 18 Nasal Cannula 09/01/16 08:02 97.4 107/89 08/30/16 21:24 21 Intake and Output 08/31/16 08/31/16 09/01/16 15:00 23:00 07:00 Intake Total 250 ml 1290 ml 340 ml Output Total 700 ml Balance 250 ml 1290 ml -360 ml Exam Psych: confusion Respiratory: clear to auscultation Cardiovascular: regular rate and rhythm Gastrointestinal: soft, No distended Musculoskeletal: nl extremities to inspection Results Result Diagram: 09/01/1618 09/01/16 0618 Results 24 hrs Laboratory Tests Test 08/31/16 19:55 09/01/16 06:18 Anion Gap 8 7 L Blood Urea Nitrogen 14 13 Calcium Level 7.3 L 7.3 L Carbon Dioxide Level 27 28 Chloride Level 109 108 Creatinine 0.41 L 0.37 L Glucose Level 90 83 Potassium Level 3.8 3.6 Sodium Level 140 139 Basophils # 0.0 Basophils % 0.0 Eosinophils # 0.0 Eosinophils % 0.0 Hematocrit 32.5 L Hemoglobin 10.5 L Lymphocytes # 0.3 L Lymphocytes % 6.3 L Mean Corpuscular Hemoglobin 29.9 Mean Corpuscular Hemoglobin Concent 32.3 Mean Corpuscular Volume 92.6 Mean Platelet Volume 9.5 Monocytes # 0.3 Monocytes % 5.9 Neutrophils # 4.3 Neutrophils % 87.0 H Nucleated Red Blood Cells # 0.0 Nucleated Red Blood Cells % 0.0 Platelet Count 118 L Red Blood Count 3.51 L Red Cell Distribution Width 18.7 H White Blood Count 4.9 Medications Medications Current Medications Ondansetron HCl (Zofran Inj) 4 mg Q6H PRN IV NAUSEA AND/OR VOMITING Last administered on 08/24/16 17:49; Admin Dose 4 MG; Start 08/09/16 at 07:00 Acetaminophen (Tylenol Supp) 650 mg Q6H PRN [place] PAIN LEVEL 1-3 OR FEVER; Start 08/09/16 at 07:00 Mesalamine (Delzicol Dr) 800 mg BID PO Last administered on 09/01/16 09:15; Admin Dose 800 MG; Start 08/09/16 at 09:00 Efavirenz (Sustiva) 600 mg DAILY PO Last administered on 09/01/16 09:14; Admin Dose 600 MG; Start 08/12/16 at 14:00 Emtricitabine/ Tenofovir (Truvada) 1 tab DAILY PO Last administered on 09:15; Admin Dose 1 TAB; Start 08/12/16 at 14:00 Collagenase (Santyl) 1 applic DAILY TOP Last administered on 09/01/16 09:27; Admin Dose 1 APPLIC; Start 08/12/16 at 14:00 Al Hydrox/Mg Hydrox/Simethicone (Mag-Al Plus) 30 ml Q6H PRN PO GASTROINTESTINAL UPSET Last administered on 08/12/16 15:43; Admin Dose 30 ML; Start 08/12/16 at 15:30 Mirtazapine (Remeron) 15 mg HS PO Last administered on 08/31/16 23:10; Admin Dose 15 MG; Start 08/12/16 at 21:00 Acetaminophen/ Hydrocodone Bitart ([place] (5/325)) 1 tab Q6H PRN PO PAIN Last administered on 08/15/16 22:36; Admin Dose 1 TAB; Start 08/13/16 at 23:30 IV Flush (NS 10 ml) 10 ml PRN PRN IV IV PROTOCOL; Start 08/14/16 at 17:00 Lactobacillus Acidoph/Bulgaricus (Floranex) 1 tab TID PO Last administered on 12:01; Admin Dose 1 TAB; Start 08/15/16 at 21:00 Megestrol Acetate (Megace Susp) 400 mg BID PO Last administered on 09/01/16 09 :26; Admin Dose 400 MG; Start 08/17/16 at 10:30; Stop 09/16/16 at 10:29 Megestrol Acetate (Megace) 40 mg DAILY PO Last administered on 09/01/16 09:15 ; Admin Dose 40 MG; Start 08/19/16 at 15:00 Lorazepam (Ativan) 1 mg Q3 PRN IV ANXIETY Last administered on 08/31/16 12:58 ; Admin Dose 1 MG; Start 08/20/16 at 22:30 Sucralfate (Carafate) 1 gm QID PO Last administered on 09/01/16 17:57; Admin Dose 1 GM; Start 08/24/16 at 21:00 Morphine Sulfate (morphine) 2 mg Q4H PRN IV PAIN Last administered on 05:42; Admin Dose 2 MG; Start 08/25/16 at 05:30 Pantoprazole (Protonix Tab) 40 mg BID@06,18 PO Last administered on 09/01/16 17:57; Admin Dose 40 MG; Start 08/25/16 at 18:00 Furosemide (Lasix) 20 mg DAILY IV Last administered on 09/01/16 09:19; Admin Dose 20 MG; Start 08/31/16 at 09:00 Spironolactone (Aldactone) 25 mg DAILY PO Last administered on 08/31/16 09:37 ; Admin Dose 25 MG; Start 08/31/16 at 09:00 Azithromycin (Zithromax) 500 mg DAILY PO Last administered on 09/01/16 09:21; Admin Dose 500 MG; Start 09/01/16 at 09:00 Ethambutol HCl (Myambutol) 600 mg DAILY PO Last administered on 09/01/16 09:22 ; Admin Dose 600 MG; Start 09/01/16 at 09:00 ISABEL HARLEY 13, 2017 18:56
[2016-09-01 20:33] VITALS: BP 108/69; RESP 24
[2016-09-01] MEDS: MIRTAZAPINE 15 MG TAB PO SCH (21:00)
[2016-09-01] MEDS: morphine 2 MG INJ IV PRN (22:52)
[2016-09-02] MEDS: ALBUTEROL/IPRATROPIUM (NEB) 3 ML AMP HHN SCH ×6 (01:00→21:09)
[2016-09-02] MEDS: PANTOPRAZOLE (EC) 40 MG TAB PO SCH ×2 (06:00→18:00)
[2016-09-02 06:08] LABS: ADD SCAN DIFF NO
[2016-09-02 06:31] LABS: ABNORMAL IP MESSAGE 1; EOSINOPHILS # 0.1 10^3/ul (0.0-0.5); EOSINOPHILS % 1.7 % (0.0-7.0); HEMATOCRIT 31.2 % (37.0-47.0); LYMPHOCYTES # 0.4 10^3/ul (0.8-2.9); LYMPHOCYTES % 13.5 % (15.0-51.0); MEAN CORPUSCULAR HEMOGLOBIN 29.8 pg (29.0-33.0); MEAN CORPUSCULAR HGB CONC 32.1 g/dl (32.0-37.0); MEAN CORPUSCULAR VOLUME 92.9 fl (82.0-101.0); MEAN PLATELET VOLUME 9.5 fl (7.4-10.4); MONOCYTE # 0.3 10^3/ul (0.3-0.9); MONOCYTES % 9.6 % (0.0-11.0); NEUTROPHIL # 2.2 10^3/ul (1.6-7.5); NEUTROPHILS % 73.9 % (39.0-77.0); PLATELET COUNT 121 10^3/UL (140-415); RED BLOOD COUNT 3.36 10^6/ul (4.20-5.40); RED CELL DISTRIBUTION WIDTH 18.6 % (11.5-14.5)
[2016-09-02 06:35] LABS: MAGNESIUM 1.6 mg/dl (1.7-2.5); PHOSPHORUS 1.5 mg/dl (2.5-4.9)
[2016-09-02 06:35] LABS: POTASSIUM 3.2 mmol/L (3.5-5.1)
[2016-09-02 06:38] LABS: CREATININE 0.43 mg/dl (0.44-1.00)
[2016-09-02 06:39] LABS: CALCIUM 7.2 mg/dl (8.4-10.2)
[2016-09-02 07:57] VITALS: BP 111/79; RESP 20
[2016-09-02] MEDS: SPIRONOLACTONE 25 MG TAB PO SCH (09:00)
[2016-09-02] MEDS: ETHAMBUTOL 400 MG TAB PO SCH (09:00)
[2016-09-02] MEDS: MEGESTROL 40 MG TAB PO SCH (09:00)
[2016-09-02] MEDS: AZITHROMYCIN 250 MG TAB PO SCH (09:00)
[2016-09-02] MEDS: MESALAMINE (EC) 400 MG CAP PO SCH ×2 (09:00→22:01)
[2016-09-02] MEDS: EFAVIRENZ 600 MG TAB PO SCH (09:00)
[2016-09-02] MEDS: SUCRALFATE 1 GM TAB PO SCH ×4 (09:00→22:01)
[2016-09-02] MEDS: MEGESTROL (40 MG/ML) 10ML CUP PO SCH ×2 (09:00→21:59)
[2016-09-02] MEDS: EMTRICITABINE/TENOFOVIR TAB PO SCH (09:00)
[2016-09-02] MEDS: LACTOBACILLUS CHEW TAB PO SCH ×3 (09:00→22:00)
[2016-09-02] MEDS: FUROSEMIDE 40 MG INJ IV SCH (10:27)
[2016-09-02 10:32] VITALS: BP 107/78; PULSE 115
[2016-09-02] MEDS ORDERED: MAGNESIUM SULFATE 2 GM/50 ML 50 ML IVPB SCH (12:00)
[2016-09-02] MEDS ORDERED: POTASSIUM PHOSPHATE 40 MEQ in SOD CHLORIDE 0.9% 250 ML IVPB SCH (12:30)
[2016-09-02] MEDS: COLLAGENASE 30 GM TUBE TOP SCH (14:02)
[2016-09-02 15:02] LABS: CYTOMEGALOVIRUS ANTIBODY (IGM) 0.6
--- NOTE | 2016-09-02 15:46 | CONS ---
Date/Time of Note Date/Time of Note DATE: 09/02/16 TIME: 15:45 Assessment/Plan Assessment/Plan Chief Complaint/Hosp Course SUBJECTIVE: No acute changes, sleeping, looks comfortable, no fevers ANTIMICROBIALS: 1. Sustiva. 2. Truvada. 3. Zithromax 4. Ethambutol PHYSICAL EXAMINATION: GENERAL: This is a cachectic, ill-appearing, middle-aged woman who is awake, lying comfortably in bed. HEENT: Head atraumatic, normocephalic. Sclerae anicteric. Buccal mucosa dry. NECK: Supple, trachea midline. CHEST: Rise symmetrical. Breath sounds diminished to bases. HEART: S1, S2. ABDOMEN: Soft. Bowel tones present. EXTREMITIES: With bilateral hand edema and cyanosis of the fingers and wrists. SKIN: Severe anasarca. ASSESSMENT: 1. S/p GIB===> EGD done 2. PNA/pleural effusions==> s/p R thoracentesis 08/28/16 3. Human immunodeficiency virus positive with a history of noncompliance with human immunodeficiency virus medications. A CD4 count 392. 4. 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 Cultures growing citrobacter and Proteus mirabilis. 4. Cachexia. 5. Hx of Inocencia esophagitis. 6. Anasarca 2 to protein calorie malnutrition. 7. Hepatitis C virus. 8. Right upper extremity thrombosis, status post PICC line removed. 9. History of substance abuse. 10.?MAC PLAN: Remains stable, continue present care, abx, aspiration precaution, continue emp abx for possible atypical MAC===> pending [employer] DW staff Problems: Consultation Date/Type/Reason Admit Date/Time Aug 09, 2016 at 01:59 Initial Consult Date 08/09/16 Type of Consultation: ID Exam/Review of Systems Vital Signs Vitals Vital Signs Date Time Temp Pulse Resp B/P Pulse Ox O2 Delivery O2 Flow Rate FiO2 09/02/16 10:32 115 107/78 09/02/16 08:08 99 2.0 09/02/16 08:07 16 28 09/02/16 07:57 98.8 09/02/16 05:57 Nasal Cannula Intake and Output 09/01/16 09/01/16 09/02/16 15:00 23:00 07:00 Intake Total 1500 ml Output Total 1725 ml Balance -225 ml Results Result Diagram: 09/02/16 0550 09/02/16 0555 Results 24 hrs Laboratory Tests Test 09/02/16 05:40 09/02/16 05:50 09/02/16 05:55 Magnesium Level 1.6 L Phosphorus Level 1.5 L Basophils # 0.0 Basophils % 0.0 Eosinophils # 0.1 Eosinophils % 1.7 Hematocrit 31.2 L Hemoglobin 10.0 L Lymphocytes # 0.4 L Lymphocytes % 13.5 L Mean Corpuscular Hemoglobin 29.8 Mean Corpuscular Hemoglobin Concent 32.1 Mean Corpuscular Volume 92.9 Mean Platelet Volume 9.5 Monocytes # 0.3 Monocytes % 9.6 Neutrophils # 2.2 Neutrophils % 73.9 Nucleated Red Blood Cells # 0.0 Nucleated Red Blood Cells % 0.0 Platelet Count 121 L Red Blood Count 3.36 L Red Cell Distribution Width 18.6 H White Blood Count 3.0 #L Anion Gap 8 Blood Urea Nitrogen 16 Calcium Level 7.2 L Carbon Dioxide Level 28 Chloride Level 106 Creatinine 0.43 L Glucose Level 78 Potassium Level 3.2 L Sodium Level 139 Medications Medications Current Medications Ondansetron HCl (Zofran Inj) 4 mg Q6H PRN IV NAUSEA AND/OR VOMITING Last administered on 08/24/16 17:49; Admin Dose 4 MG; Start 08/09/16 at 07:00 Acetaminophen (Tylenol Supp) 650 mg Q6H PRN [place] PAIN LEVEL 1-3 OR FEVER; Start 08/09/16 at 07:00 Mesalamine (Delzicol Dr) 800 mg BID PO Last administered on 09/01/16 09:15; Admin Dose 800 MG; Start 08/09/16 at 09:00 Efavirenz (Sustiva) 600 mg DAILY PO Last administered on 09/01/16 09:14; Admin Dose 600 MG; Start 08/12/16 at 14:00 Emtricitabine/ Tenofovir (Truvada) 1 tab DAILY PO Last administered on 09:15; Admin Dose 1 TAB; Start 08/12/16 at 14:00 Collagenase (Santyl) 1 applic DAILY TOP Last administered on 09/02/16 14:02; Admin Dose 1 APPLIC; Start 08/12/16 at 14:00 Al Hydrox/Mg Hydrox/Simethicone (Mag-Al Plus) 30 ml Q6H PRN PO GASTROINTESTINAL UPSET Last administered on 08/12/16 15:43; Admin Dose 30 ML; Start 08/12/16 at 15:30 Mirtazapine (Remeron) 15 mg HS PO Last administered on 08/31/16 23:10; Admin Dose 15 MG; Start 08/12/16 at 21:00 Acetaminophen/ Hydrocodone Bitart ([place] (5/325)) 1 tab Q6H PRN PO PAIN Last administered on 08/15/16 22:36; Admin Dose 1 TAB; Start 08/13/16 at 23:30 IV Flush (NS 10 ml) 10 ml PRN PRN IV IV PROTOCOL; Start 08/14/16 at 17:00 Lactobacillus Acidoph/Bulgaricus (Floranex) 1 tab TID PO Last administered on 13:58; Admin Dose 1 TAB; Start 08/15/16 at 21:00 Megestrol Acetate (Megace Susp) 400 mg BID PO Last administered on 09/01/16 09 :26; Admin Dose 400 MG; Start 08/17/16 at 10:30; Stop 09/16/16 at 10:29 Megestrol Acetate (Megace) 40 mg DAILY PO Last administered on 09/01/16 09:15 ; Admin Dose 40 MG; Start 08/19/16 at 15:00 Lorazepam (Ativan) 1 mg Q3 PRN IV ANXIETY Last administered on 08/31/16 12:58 ; Admin Dose 1 MG; Start 08/20/16 at 22:30 Sucralfate (Carafate) 1 gm QID PO Last administered on 09/02/16 13:58; Admin Dose 1 GM; Start 08/24/16 at 21:00 Morphine Sulfate (morphine) 2 mg Q4H PRN IV PAIN Last administered on 22:52; Admin Dose 2 MG; Start 08/25/16 at 05:30 Pantoprazole (Protonix Tab) 40 mg BID@06,18 PO Last administered on 09/01/16 17:57; Admin Dose 40 MG; Start 08/25/16 at 18:00 Furosemide (Lasix) 20 mg DAILY IV Last administered on 09/02/16 10:27; Admin Dose 20 MG; Start 08/31/16 at 09:00 Spironolactone (Aldactone) 25 mg DAILY PO Last administered on 08/31/16 09:37 ; Admin Dose 25 MG; Start 08/31/16 at 09:00 Azithromycin (Zithromax) 500 mg DAILY PO Last administered on 09/01/16 09:21; Admin Dose 500 MG; Start 09/01/16 at 09:00 Ethambutol HCl 600 mg 600 mg DAILY PO Last administered on 09/01/16 09:22; Admin Dose 600 MG; Start 09/01/16 at 09:00 Potassium Phosphate/Sodium Chloride (K Phos (Meq)/NS) 259.0909 ml @ 64.773 m... ONCE IVPB Last administered on 09/02/16 14:06; Admin Dose 64.773 MLS/HR; Start 09/02/16 at 12:30; Stop 09/02/16 at 16:29 AGUILA BURGOS NP Sep 02, 2016 15:46
--- NOTE | 2016-09-02 16:53 | PN ---
Date/Time of Note Date/Time of Note DATE: 09/02/16 TIME: 16:50 Assessment/Plan VTE Prophylaxis VTE Prophylaxis Intervention: SCD's Assessment/Plan Chief Complaint/Hosp Course 1. Debility secondary to cachexia with HIV infection ID on case continue therapy, CD4 count at 392 Family conference tomorrow to discuss disposition, patient would like to go home 2. Anemia status post EGD with no significant findings, etiology secondary to malnutrition and HIV as well as cirrhosis GI signed off, stable 3. 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 PNA/pleural effusions==> s/p R thoracentesis 08/28/16 On empiric therapy for possible atypical MAC, pending AFB 5. 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 Cultures growing citrobacter and Proteus mirabilis. 6. Hx of Inocencia esophagitis. 7. Anasarca secondary to protein calorie malnutrition. 8. Right upper extremity thrombosis, status post PICC line removed. 9. History of substance abuse 10. Hypokalemia-resolved PPx- SCD's Problems: Subjective 24 Hr Interval Summary Constitutional: disoriented Exam/Review of Systems Vital Signs Vitals Vital Signs Date Time Temp Pulse Resp B/P Pulse Ox O2 Delivery O2 Flow Rate FiO2 09/02/16 16:47 1.0 09/02/16 16:09 105 20 98 Nasal Cannula 28 09/02/16 10:32 107/78 09/02/16 07:57 98.8 Intake and Output 09/01/16 09/01/16 09/02/16 15:00 23:00 07:00 Intake Total 1500 ml Output Total 1725 ml Balance -225 ml Exam Constitutional: alert Respiratory: clear to auscultation Cardiovascular: regular rate and rhythm Gastrointestinal: soft, No distended Musculoskeletal: nl extremities to inspection Results Result Diagram: 09/02/16 0550 09/02/16 0555 Results 24 hrs Laboratory Tests Test 09/02/16 05:40 09/02/16 05:50 09/02/16 05:55 Magnesium Level 1.6 L Phosphorus Level 1.5 L Basophils # 0.0 Basophils % 0.0 Eosinophils # 0.1 Eosinophils % 1.7 Hematocrit 31.2 L Hemoglobin 10.0 L Lymphocytes # 0.4 L Lymphocytes % 13.5 L Mean Corpuscular Hemoglobin 29.8 Mean Corpuscular Hemoglobin Concent 32.1 Mean Corpuscular Volume 92.9 Mean Platelet Volume 9.5 Monocytes # 0.3 Monocytes % 9.6 Neutrophils # 2.2 Neutrophils % 73.9 Nucleated Red Blood Cells # 0.0 Nucleated Red Blood Cells % 0.0 Platelet Count 121 L Red Blood Count 3.36 L Red Cell Distribution Width 18.6 H White Blood Count 3.0 #L Anion Gap 8 Blood Urea Nitrogen 16 Calcium Level 7.2 L Carbon Dioxide Level 28 Chloride Level 106 Creatinine 0.43 L Glucose Level 78 Potassium Level 3.2 L Sodium Level 139 Medications Medications Current Medications Ondansetron HCl (Zofran Inj) 4 mg Q6H PRN IV NAUSEA AND/OR VOMITING Last administered on 08/24/16 17:49; Admin Dose 4 MG; Start 08/09/16 at 07:00 Acetaminophen (Tylenol Supp) 650 mg Q6H PRN [place] PAIN LEVEL 1-3 OR FEVER; Start 08/09/16 at 07:00 Mesalamine (Delzicol Dr) 800 mg BID PO Last administered on 09/01/16 09:15; Admin Dose 800 MG; Start 08/09/16 at 09:00 Efavirenz (Sustiva) 600 mg DAILY PO Last administered on 09/01/16 09:14; Admin Dose 600 MG; Start 08/12/16 at 14:00 Emtricitabine/ Tenofovir (Truvada) 1 tab DAILY PO Last administered on 09:15; Admin Dose 1 TAB; Start 08/12/16 at 14:00 Collagenase (Santyl) 1 applic DAILY TOP Last administered on 09/02/16 14:02; Admin Dose 1 APPLIC; Start 08/12/16 at 14:00 Al Hydrox/Mg Hydrox/Simethicone (Mag-Al Plus) 30 ml Q6H PRN PO GASTROINTESTINAL UPSET Last administered on 08/12/16 15:43; Admin Dose 30 ML; Start 08/12/16 at 15:30 Mirtazapine (Remeron) 15 mg HS PO Last administered on 08/31/16 23:10; Admin Dose 15 MG; Start 08/12/16 at 21:00 Acetaminophen/ Hydrocodone Bitart ([place] (5/325)) 1 tab Q6H PRN PO PAIN Last administered on 08/15/16 22:36; Admin Dose 1 TAB; Start 08/13/16 at 23:30 IV Flush (NS 10 ml) 10 ml PRN PRN IV IV PROTOCOL; Start 08/14/16 at 17:00 Lactobacillus Acidoph/Bulgaricus (Floranex) 1 tab TID PO Last administered on 13:58; Admin Dose 1 TAB; Start 08/15/16 at 21:00 Megestrol Acetate (Megace Susp) 400 mg BID PO Last administered on 09/01/16 09 :26; Admin Dose 400 MG; Start 08/17/16 at 10:30; Stop 09/16/16 at 10:29 Megestrol Acetate (Megace) 40 mg DAILY PO Last administered on 09/01/16 09:15 ; Admin Dose 40 MG; Start 08/19/16 at 15:00 Lorazepam (Ativan) 1 mg Q3 PRN IV ANXIETY Last administered on 08/31/16 12:58 ; Admin Dose 1 MG; Start 08/20/16 at 22:30 Sucralfate (Carafate) 1 gm QID PO Last administered on 09/02/16 13:58; Admin Dose 1 GM; Start 08/24/16 at 21:00 Morphine Sulfate (morphine) 2 mg Q4H PRN IV PAIN Last administered on 22:52; Admin Dose 2 MG; Start 08/25/16 at 05:30 Pantoprazole (Protonix Tab) 40 mg BID@06,18 PO Last administered on 09/01/16 17:57; Admin Dose 40 MG; Start 08/25/16 at 18:00 Furosemide (Lasix) 20 mg DAILY IV Last administered on 09/02/16 10:27; Admin Dose 20 MG; Start 08/31/16 at 09:00 Spironolactone (Aldactone) 25 mg DAILY PO Last administered on 08/31/16 09:37 ; Admin Dose 25 MG; Start 08/31/16 at 09:00 Azithromycin (Zithromax) 500 mg DAILY PO Last administered on 09/01/16 09:21; Admin Dose 500 MG; Start 09/01/16 at 09:00 Ethambutol HCl (Myambutol) 600 mg DAILY PO Last administered on 09/01/16 09:22 ; Admin Dose 600 MG; Start 09/01/16 at 09:00 ISABEL HARLEY Sep 02, 2016 16:53
[2016-09-02] MEDS: LORAZEPAM 2 MG INJ IV PRN (17:37)
[2016-09-02 19:00] VITALS: BP 108/79; RESP 16
[2016-09-02] MEDS ORDERED: LORAZEPAM 2 MG INJ IV PRN (19:00)
[2016-09-02 20:12] LABS: CYTOMEGALOVIRUS ANTIBODY (IGG) 2.36
[2016-09-02] MEDS: MIRTAZAPINE 15 MG TAB PO SCH (22:01)
[2016-09-02 22:15] VITALS: BP 110/80; PULSE 115
[2016-09-02] MEDS: morphine 2 MG INJ IV PRN (23:12)
[2016-09-03] MEDS: ALBUTEROL/IPRATROPIUM (NEB) 3 ML AMP HHN SCH ×5 (01:07→16:37)
[2016-09-03 05:26] LABS: ADD SCAN DIFF NO
[2016-09-03 06:04] LABS: POTASSIUM 3.5 mmol/L (3.5-5.1)
[2016-09-03 06:06] LABS: CREATININE 0.39 mg/dl (0.44-1.00)
[2016-09-03 06:07] LABS: CALCIUM 7.2 mg/dl (8.4-10.2); PHOSPHORUS 2.2 mg/dl (2.5-4.9)
[2016-09-03] MEDS: PANTOPRAZOLE (EC) 40 MG TAB PO SCH (06:18)
[2016-09-03 07:03] LABS: ABNORMAL IP MESSAGE 1; BASOPHILS % 0.7 % (0.0-2.0); EOSINOPHILS # 0.1 10^3/ul (0.0-0.5); EOSINOPHILS % 1.7 % (0.0-7.0); HEMATOCRIT 27.9 % (37.0-47.0); LYMPHOCYTES # 0.5 10^3/ul (0.8-2.9); LYMPHOCYTES % 17.2 % (15.0-51.0); MEAN CORPUSCULAR HEMOGLOBIN 29.9 pg (29.0-33.0); MEAN CORPUSCULAR HGB CONC 32.3 g/dl (32.0-37.0); MEAN CORPUSCULAR VOLUME 92.7 fl (82.0-101.0); MEAN PLATELET VOLUME 9.4 fl (7.4-10.4); MONOCYTE # 0.3 10^3/ul (0.3-0.9); MONOCYTES % 11.5 % (0.0-11.0); NEUTROPHILS % 66.2 % (39.0-77.0); PLATELET COUNT 155 10^3/UL (140-415); RED BLOOD COUNT 3.01 10^6/ul (4.20-5.40); RED CELL DISTRIBUTION WIDTH 18.2 % (11.5-14.5)
[2016-09-03 08:18] VITALS: BP 116/81; RESP 22
[2016-09-03] MEDS: LORAZEPAM 2 MG INJ IV PRN (08:53)
[2016-09-03] MEDS: morphine 2 MG INJ IV PRN ×2 (08:54→14:42)
[2016-09-03] MEDS: FUROSEMIDE 40 MG INJ IV SCH (09:00)
[2016-09-03] MEDS: SPIRONOLACTONE 25 MG TAB PO SCH (09:00)
[2016-09-03] MEDS: SUCRALFATE 1 GM TAB PO SCH ×2 (13:00→13:17)
[2016-09-03] MEDS ORDERED: POTASSIUM PHOSPHATE 40 MEQ in SOD CHLORIDE 0.9% 250 ML IVPB ONE (13:00)
[2016-09-03] MEDS: EFAVIRENZ 600 MG TAB PO SCH (13:11)
[2016-09-03] MEDS: LACTOBACILLUS CHEW TAB PO SCH ×2 (13:12→13:17)
[2016-09-03] MEDS: MEGESTROL (40 MG/ML) 10ML CUP PO SCH (13:12)
[2016-09-03] MEDS: MESALAMINE (EC) 400 MG CAP PO SCH (13:13)
[2016-09-03] MEDS: EMTRICITABINE/TENOFOVIR TAB PO SCH (13:13)
[2016-09-03] MEDS: MEGESTROL 40 MG TAB PO SCH (13:13)
[2016-09-03] MEDS: AZITHROMYCIN 250 MG TAB PO SCH (13:16)
[2016-09-03] MEDS: COLLAGENASE 30 GM TUBE TOP SCH (13:16)
[2016-09-03] MEDS: ETHAMBUTOL 400 MG TAB PO SCH (13:16)
--- NOTE | 2016-09-03 14:41 | CONS ---
Date/Time of Note Date/Time of Note DATE: 09/03/16 TIME: 14:40 Assessment/Plan Assessment/Plan Chief Complaint/Hosp Course SUBJECTIVE: No acute changes, alert, looks comfortable, no fevers ANTIMICROBIALS: 1. Sustiva. 2. Truvada. 3. Zithromax 4. Ethambutol PHYSICAL EXAMINATION: GENERAL: This is a cachectic, ill-appearing, middle-aged woman who is awake, lying comfortably in bed. HEENT: Head atraumatic, normocephalic. Sclerae anicteric. Buccal mucosa dry. NECK: Supple, trachea midline. CHEST: Rise symmetrical. Breath sounds diminished to bases. HEART: S1, S2. ABDOMEN: Soft. Bowel tones present. EXTREMITIES: With bilateral hand edema and cyanosis of the fingers and wrists. SKIN: Severe anasarca. ASSESSMENT: 1. S/p GIB===> EGD done 2. PNA/pleural effusions==> s/p R thoracentesis 08/28/16 3. Human immunodeficiency virus positive with a history of noncompliance with human immunodeficiency virus medications. A CD4 count 392. 4. 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 Cultures growing citrobacter and Proteus mirabilis. 4. Cachexia. 5. Hx of Inocencia esophagitis. 6. Anasarca 2 to protein calorie malnutrition. 7. Hepatitis C virus. 8. Right upper extremity thrombosis, status post PICC line removed. 9. History of substance abuse. 10.?MAC PLAN: Remains stable, continue present care, abx, aspiration precaution, continue emp abx for possible atypical MAC===> pending final work up. DW staff Problems: Consultation Date/Type/Reason Admit Date/Time Aug 09, 2016 at 01:59 Initial Consult Date 08/09/16 Type of Consultation: ID Exam/Review of Systems Vital Signs Vitals Vital Signs Date Time Temp Pulse Resp B/P Pulse Ox O2 Delivery O2 Flow Rate FiO2 09/03/16 13:57 105 20 98 Nasal Cannula 3.0 09/03/16 08:18 99.0 116/81 09/02/16 16:09 28 Intake and Output 09/02/16 09/02/16 09/03/16 15:00 23:00 07:00 Intake Total 240 ml 1269.0909 ml Output Total 200 ml 1702 ml 900 ml Balance 40 ml -432.9091 ml -900 ml Results Result Diagram: 09/03/16 0500 09/03/16 0500 Results 24 hrs Laboratory Tests Test 09/03/16 05:00 Anion Gap 8 Basophils # 0.0 Basophils % 0.7 Blood Urea Nitrogen 14 Calcium Level 7.2 L Carbon Dioxide Level 30 Chloride Level 107 Creatinine 0.39 L Eosinophils # 0.1 Eosinophils % 1.7 Glucose Level 80 Hematocrit 27.9 L Hemoglobin 9.0 L Lymphocytes # 0.5 L Lymphocytes % 17.2 Magnesium Level 2.0 Mean Corpuscular Hemoglobin 29.9 Mean Corpuscular Hemoglobin Concent 32.3 Mean Corpuscular Volume 92.7 Mean Platelet Volume 9.4 Monocytes # 0.3 Monocytes % 11.5 H Neutrophils # 2.0 Neutrophils % 66.2 Nucleated Red Blood Cells # 0.0 Nucleated Red Blood Cells % 0.0 Phosphorus Level 2.2 L Platelet Count 155 # Potassium Level 3.5 Red Blood Count 3.01 L Red Cell Distribution Width 18.2 H Sodium Level 141 White Blood Count 3.0 L Medications Medications Current Medications Ondansetron HCl (Zofran Inj) 4 mg Q6H PRN IV NAUSEA AND/OR VOMITING Last administered on 08/24/16 17:49; Admin Dose 4 MG; Start 08/09/16 at 07:00 Acetaminophen (Tylenol Supp) 650 mg Q6H PRN [place] PAIN LEVEL 1-3 OR FEVER; Start 08/09/16 at 07:00 Mesalamine (Delzicol Dr) 800 mg BID PO Last administered on 09/03/16 13:13; Admin Dose 800 MG; Start 08/09/16 at 09:00 Efavirenz (Sustiva) 600 mg DAILY PO Last administered on 09/03/16 13:11; Admin Dose 600 MG; Start 08/12/16 at 14:00 Emtricitabine/ Tenofovir (Truvada) 1 tab DAILY PO Last administered on 13:13; Admin Dose 1 TAB; Start 08/12/16 at 14:00 Collagenase (Santyl) 1 applic DAILY TOP Last administered on 09/03/16 13:16; Admin Dose 1 APPLIC; Start 08/12/16 at 14:00 Al Hydrox/Mg Hydrox/Simethicone (Mag-Al Plus) 30 ml Q6H PRN PO GASTROINTESTINAL UPSET Last administered on 08/12/16 15:43; Admin Dose 30 ML; Start 08/12/16 at 15:30 Mirtazapine (Remeron) 15 mg HS PO Last administered on 09/02/16 22:01; Admin Dose 15 MG; Start 08/12/16 at 21:00 Acetaminophen/ Hydrocodone Bitart ([place] (5/325)) 1 tab Q6H PRN PO PAIN Last administered on 08/15/16 22:36; Admin Dose 1 TAB; Start 08/13/16 at 23:30 IV Flush (NS 10 ml) 10 ml PRN PRN IV IV PROTOCOL; Start 08/14/16 at 17:00 Lactobacillus Acidoph/Bulgaricus (Floranex) 1 tab TID PO Last administered on 13:17; Admin Dose 1 TAB; Start 08/15/16 at 21:00 Megestrol Acetate (Megace Susp) 400 mg BID PO Last administered on 09/03/16 13 :12; Admin Dose 400 MG; Start 08/17/16 at 10:30; Stop 09/16/16 at 10:29 Megestrol Acetate (Megace) 40 mg DAILY PO Last administered on 09/03/16 13:13 ; Admin Dose 40 MG; Start 08/19/16 at 15:00 Lorazepam (Ativan) 1 mg Q3 PRN IV ANXIETY Last administered on 09/03/16 08:53 ; Admin Dose 1 MG; Start 08/20/16 at 22:30 Sucralfate (Carafate) 1 gm QID PO Last administered on 09/03/16 13:17; Admin Dose 1 GM; Start 08/24/16 at 21:00 Morphine Sulfate (morphine) 2 mg Q4H PRN IV PAIN Last administered on 08:54; Admin Dose 2 MG; Start 08/25/16 at 05:30 Pantoprazole (Protonix Tab) 40 mg BID@,18 PO Last administered on 09/03/16 06:18; Admin Dose 40 MG; Start 08/25/16 at 18:00 Furosemide (Lasix) 20 mg DAILY IV Last administered on 09/02/16 10:27; Admin Dose 20 MG; Start 08/31/16 at 09:00 Spironolactone (Aldactone) 25 mg DAILY PO Last administered on 08/31/16 09:37 ; Admin Dose 25 MG; Start 08/31/16 at 09:00 Azithromycin (Zithromax) 500 mg DAILY PO Last administered on 09/03/16 13:16; Admin Dose 500 MG; Start 09/01/16 at 09:00 Ethambutol HCl (Myambutol) 600 mg DAILY PO Last administered on 09/03/16 13:16 ; Admin Dose 600 MG; Start 09/01/16 at 09:00 Lorazepam 1 mg 1 mg Q10MIN PRN IV SEIZURES; Start 09/02/16 at 19:00 Potassium Phosphate/Sodium Chloride (K Phos (Meq)/NS) 259.0909 ml @ 64.773 m... ONCE ONCE IVPB Last administered on 09/03/16 13:17; Admin Dose 64.773 MLS/HR; Start 09/03/16 at 13:00; Stop 09/03/16 at 16:59 AGUILA BURGOS NP Sep 03, 2016 14:41
--- NOTE | 2016-09-03 17:30 | DS ---
DATE OF ADMISSION: 08/09/2016 DATE OF DISCHARGE: 09/03/2016 DISCHARGE DIAGNOSES: 1. Debility secondary to cachexia from HIV infection and noncompliance. The patient advised to be compliant with his HIV medications. 2. Anemia, status post EGD with no significant findings. Etiology anemia secondary to malnutrition and HIV as well as cirrhosis. 3. Cirrhosis secondary to hepatitis C. The patient advised to seek treatment as an outpatient. 4. Pleural effusion, status post right sided thoracentesis. The patient has been refusing azithrom ycin for atypical MAC. There is no evidence of any MAC infection at this time. AST from pleural fl uid was negative and AFB sputum is negative x2 at this time. 5. Multiple chronic wounds, stage IV ulcers. The patient had been on treatment. 6. Anasarca secondary to protein calorie malnutrition. 7. History of substance abuse. 8. History of noncompliance. HOSPITAL COURSE: The patient is a 41-year-old female with a history of esophagitis, obstructive gas tropathy, severe colitis ulceration, history of substance abuse, respiratory failure, hemorrhagic sh ock. The patient presented with bloody diarrhea. The patient had been diagnosed recently with Cand mari esophagitis and atrophic gastropathy with a previous esophagogastroduodenoscopy and colonoscopy that showed severe colitis with ulceration. The patient was evaluated by GI once again. EGD was do ne and pathology was negative for malignancy, dysplasia. Diet was advanced. The patient did have multiple small erosions and ulcers throughout the stomach. They were stable. Recommendation was fo r PPI and Carafate. The patient's H and H was stable. Of note, patient was seen by ID and was on H AART therapy. The patient was also on azithromycin for empiric MAC treatment. Of note, the patient did have a pleural effusion and it was drained. Culture from the fluid was negative. Acid-fast ba cteria from the culture was also negative as was the fungal culture. Patient had sputum AFB that wa s negative. The patient's main issue was her cachexia and HIV. She does have a history of noncompl iance. CD4 count was 392. The patient was advised to be compliant with the medications upon discha rge. The patient did not want to go to a facility. She did not want to go under the care of [facility]. Patient wanted to go home in the care of her father. A family meeting was held and it was decid ed that the patient would return home. On day of discharge, the patient's vitals, labs, physical ex am were stable. Questions were answered. CONDITION ON DISCHARGE: Stable. DISPOSITION: To home with home health. MEDICATIONS: 1. Sustiva. 2. Truvada. 3. Protonix. 4. Carafate. The patient is to continue her home atorvastatin, mesalamine and valganciclovir. FOLLOWUP: The patient is to follow up with her PCP in 1 to 2 weeks and with the home health agency. Greater than 30 minutes was spent coordinating discharge of patient. Dictated By: ISABEL HARLEY MD BS/NTS Conf#: [id number] DID#: [id number]
[2016-09-03 19:35] LABS: TOXOPLASMA ANTIBODY 3.29
[2016-09-03 20:56] LABS: CRYPTOCOCCAL ANTIGEN - SOURCE Serum
--- NOTE | 2016-09-05 14:31 | PN ---
Date/Time of Note Date/Time of Note DATE: 09/05/16 TIME: 14:24 Assessment/Plan VTE Prophylaxis VTE Prophylaxis Intervention: SCD's Lines/Catheters IV Catheter Type (from Nrs): PICC Line Central line still needed: Yes Urinary Cath still in place: Yes Reason Cath still needed: other (indicate) Assessment/Plan Assessment/Plan 1. Generalized weakness, due to HIV disease, malnutrition, PT 2. Human immunodeficiency virus disease 3. Multiple chronic wounds with stage IV sacral decubitus, wound care 4. Anemia: chronic, stable 5. Severe protein calorie malnutrition. encourage oral intake 6. Hepatitis C 7. Recent GI bleeding 8. DVT prophylaxis: SCD Subjective 24 Hr Interval Summary Free Text/Dictation weak. good appetite Exam/Review of Systems Vital Signs Vitals Vital Signs Date Time Temp Pulse Resp B/P Pulse Ox O2 Delivery O2 Flow Rate FiO2 09/03/16 16:38 101 20 97 Nasal Cannula 3.0 09/03/16 08:18 99.0 116/81 09/02/16 16:09 28 Exam Constitutional: alert, frail, oriented Psych: nl mood/affect, no complaints Head: atraumatic, normocephalic Eyes: EOMI, PERRL, nl conjunctiva, nl lids ENMT: nl external ears & nose, nl lips & teeth, nl nasal mucosa & septum Neck: non-tender, supple Respiratory: clear to auscultation, normal air movement, No congested cough, No crackles/rales, No diminished breath sounds, No intercostal retraction, No labored breathing, No other, No respirations, No tactile fremitus, No wheezing Cardiovascular: nl pulses, regular rate and rhythm, No S3, No S4, No bruits, No diastolic murmur, No edema, No gallop, No irregular rhythm, No jugular venous distention (JVD), No murmurs/extra sounds, No other, No rub, No systolic murmur Gastrointestinal: nl liver, spleen, non-tender, soft, No ascites, No bowel sounds, No distended, No firm, No hepatomegaly, No mass , No other, No rebound or guarding, No splenomegaly, No surgical scars, No tender Musculoskeletal: nl extremities to inspection Extremities: normal pulses, other (wounds), No calf tenderness, No clubbing, No cyanosis, No edema, No palpable cord, No pitting pedal edema, No tenderness Neurological: ALBERENE STONE SETTER II-XII intact, nl mental status, nl speech, nl strength Skin: other (wounds) Results Result Diagram: 09/03/16 0500 09/03/16 0500 AYSHA VILLAREAL MD Sep 05, 2016 14:31
== END 2016-09-03 17:50 | disposition home health service (06) | DRG 974 ==
LOC: E/R 20:22 → MS4 08-09 01:59 → PP2 08-13 10:00 → MS4 08-22 11:23 → MS2 08-30 19:55
PROVIDERS: ADMIT Internal Medicine; ATTEND Internal Medicine
PROC: 02HV33Z Insertion of Infusion Device into Superior Vena Cava, Percutaneous Approach (ICD-10-PCS; 2016-08-09)
PROC: B548ZZA Ultrasonography of Superior Vena Cava, Guidance (ICD-10-PCS; 2016-08-09)
PROC: 30243N1 Transfusion of Nonautologous Red Blood Cells into Central Vein, Percutaneous Approach (ICD-10-PCS; 2016-08-09)
PROC: 02HV33Z Insertion of Infusion Device into Superior Vena Cava, Percutaneous Approach (ICD-10-PCS; 2016-08-14)
PROC: B548ZZA Ultrasonography of Superior Vena Cava, Guidance (ICD-10-PCS; 2016-08-14)
PROC: 0DB68ZX Excision of Stomach, Via Natural or Artificial Opening Endoscopic, Diagnostic (ICD-10-PCS; principal; 2016-08-24 09:30)
PROC: 0W993ZX Drainage of Right Pleural Cavity, Percutaneous Approach, Diagnostic (ICD-10-PCS; 2016-08-28)
DX: B20 Human immunodeficiency virus [HIV] disease (principal); E43 Unspecified severe protein-calorie malnutrition; B37.81 Candidal esophagitis; K74.60 Unspecified cirrhosis of liver; J69.0 Pneumonitis due to inhalation of food and vomit; L89.154 Pressure ulcer of sacral region, stage 4; J90 Pleural effusion, not elsewhere classified; R64 Cachexia; R18.8 Other ascites; Z68.1 Body mass index [BMI] 19.9 or less, adult; T82.868A Thrombosis due to vascular prosthetic devices, implants and grafts, initial encounter; E83.51 Hypocalcemia; B18.2 Chronic viral hepatitis C; D63.8 Anemia in other chronic diseases classified elsewhere; E87.6 Hypokalemia; R53.81 Other malaise; K25.9 Gastric ulcer, unspecified as acute or chronic, without hemorrhage or perforation; K44.9 Diaphragmatic hernia without obstruction or gangrene; Z91.14 Patient's other noncompliance with medication regimen; R62.7 Adult failure to thrive; Y84.8 Other medical procedures as the cause of abnormal reaction of the patient, or of later complication, without mention of misadventure at the time of the procedure; Y92.230 Patient room in hospital as the place of occurrence of the external cause
CPT/HCPCS: 32555; 36430; 36569; 71010; 74177; 76604; 76937; 80048; 80053; 80307; 81001; 81003; 82140; 82150; 82270; 82306; 82607; 82728; 82945; 83540; 83605; 83615; 83690; 83735; 84100; 84157; 84484; 84703; 85014; 85018; 85025; 85610; 85730; 86360; 86480; 86592; 86635; 86641; 86644; 86777; 86850; 86900; 86901; 86920; 87015; 87040; 87070; 87081; 87086; 87102; 87116; 87591; 88104; 88305; 88312; 88313; 89050; 89220; 92526; 92610; 93005; 93970; 94640; 94664; 96361; 96372; 96374; 96375; 97110; 97116; 97162; 97164; 97530; C1769; C9113; J0692; J1071; J1100; J1940; J2060; J2270; J2354; J2405; J2543; J3370; J3411; J3420; J3475; J3480; J7030; J7040; J7042; J7050; J7070; P9016; Q9967

== ENCOUNTER 2016-09-04 09:45 | Inpatient (IN) | payer MEDICAID ==
[~2016-09-04] VITALS: Ht 152.4 cm; Wt 38.4 kg
[~2016-09-04 09:45] MED LIST changes: +ATOR40TA68 PO; +EFV600C PO; +PANT40TA4 PO; +SUCR1TAB27 PO; +TRUV PO
[2016-09-04 09:54] VITALS: Ht 152.4 cm; Wt 38.4 kg
[2016-09-04] MEDS ORDERED: ONDANSETRON 4 MG INJ IV STA (10:21)
[2016-09-04] MEDS ORDERED: SOD CHLORIDE 0.9% 250 ML IV STA (10:21)
--- NOTE | 2016-09-04 10:41 | RADRPT ---
PROCEDURE: XR Chest. CLINICAL INDICATION: Abdominal pain. TECHNIQUE: Single frontal view. COMPARISON: 08/28/2016. FINDINGS: The left arm PICC line tip is in the superior vena cava. There is atelectasis at the the right lung base and a moderate right pleural effusion, worse than seen previously. There is a left pleural ef fusion and left basilar atelectases. The heart size is normal. There is no pneumothorax. IMPRESSION: 1. Larger right pleural effusion and worse right basilar atelectasis. 2. Smaller left pleural effusion and improved left basilar atelectasis. 3. Left arm PICC line tip in the superior vena cava. RPTAT: QQ .Patricio Phillips MD, MD Date Time Electronically viewed and signed by .Patricio Phillips MD, on 09/04/2016 10:41 .R/
[2016-09-04 11:25] LABS: ADD SCAN DIFF NO
[2016-09-04 11:31] LABS: ABNORMAL IP MESSAGE 1; BASOPHILS % 0.2 % (0.0-2.0); EOSINOPHILS % 0.2 % (0.0-7.0); HEMATOCRIT 27.7 % (37.0-47.0); HEMOGLOBIN 8.9 g/dl (12.0-16.0); LYMPHOCYTES # 0.3 10^3/ul (0.8-2.9); LYMPHOCYTES % 7.1 % (15.0-51.0); MEAN CORPUSCULAR HEMOGLOBIN 29.4 pg (29.0-33.0); MEAN CORPUSCULAR HGB CONC 32.1 g/dl (32.0-37.0); MEAN CORPUSCULAR VOLUME 91.4 fl (82.0-101.0); MEAN PLATELET VOLUME 9.1 fl (7.4-10.4); MONOCYTE # 0.4 10^3/ul (0.3-0.9); MONOCYTES % 7.7 % (0.0-11.0); NEUTROPHIL # 3.9 10^3/ul (1.6-7.5); NEUTROPHILS % 83.5 % (39.0-77.0); PLATELET COUNT 196 10^3/UL (140-415); RED BLOOD COUNT 3.03 10^6/ul (4.20-5.40); RED CELL DISTRIBUTION WIDTH 17.9 % (11.5-14.5); WHITE BLOOD COUNT 4.7 10^3/ul (4.8-10.8)
[2016-09-04 11:36] LABS: ALBUMIN 1.7 g/dl (3.3-4.9)
[2016-09-04 11:37] LABS: CHLORIDE 107 mmol/L (97-110); POTASSIUM 3.2 mmol/L (3.5-5.1); SODIUM 142 mmol/L (135-144)
[2016-09-04 11:39] LABS: ALBUMIN/GLOBULIN RATIO 0.62; ALKALINE PHOSPHATASE 127 IU/L (42-121); ANION GAP 8 (8-16); ASPARTATE AMINO TRANSFERASE 22 IU/L (15-46); CARBON DIOXIDE 30 mmol/L (21-31); TOTAL PROTEIN 4.4 g/dl (6.1-8.1)
[2016-09-04 11:40] LABS: ALANINE AMINOTRANSFERASE 35 IU/L (13-69); BLOOD UREA NITROGEN 14 mg/dl (7-20); CALCIUM 7.4 mg/dl (8.4-10.2); GLUCOSE 97 mg/dl (70-220)
[2016-09-04 11:58] LABS: TROPONIN-I < 0.012 ng/ml (0.00-0.12)
[2016-09-04] MEDS ORDERED: LORAZEPAM 2 MG INJ IV ONE (12:30)
[2016-09-04] MEDS ORDERED: POTASSIUM CHLORIDE 50 ML IVPB PRN (13:00)
[2016-09-04] MEDS ORDERED: ACETAMINOPHEN 325 MG TAB PO PRN (14:00)
[2016-09-04] MEDS ORDERED: ONDANSETRON 4 MG INJ IV PRN ×2 (14:00→18:30)
--- NOTE | 2016-09-04 14:12 | ERA ---
ER Documentation Chief Complaint Date/Time DATE: 09/04/16 TIME: 13:48 Chief Complaint BIB RA FOR EVAL OF DIZZINESS AND NV HPI The patient is a 41-year-old female with a history of esophagitis, obstructive gastropathy, severe colitis ulceration, history of substance abuse and HIV noncompliant with medications, presenting to the ED for generalized weakness and shortness of breath. She states that she thinks she is having withdrawal from morphine. She was recently admitted to the hospital for 1 month and discharged yesterday. She was not discharged home with any opiates. She complains of nausea, vomiting, diarrhea. No fevers or chills. She has diffuse body aches. ROS All systems reviewed and are negative except as per history of present illness. Medications Home Meds Active Scripts Sucralfate (Carafate) 1 Gm Tablet, 1 GM PO QID for 30 Days, TAB Prov:AYSHA VILLAREAL MD 08/26/16 Pantoprazole* (Pantoprazole*) 40 Mg Tablet., 40 MG PO BID@06,18 for 30 Days Prov:AYSHA VILLAREAL MD 08/26/16 Emtricitabine-Tenofovir* (Truvada*) 200-300 Mg Tab, 1 TAB PO DAILY for 30 Days, TAB Prov:AYSHA VILLAREAL MD 08/26/16 Efavirenz* (Sustiva*) 600 Mg Tab, 600 MG PO DAILY for 30 Days, TAB Prov:AYSHA VILLAREAL MD 08/26/16 Reported Medications Valganciclovir HCl (Valganciclovir HCl) 450 Mg Tablet, 450 MG PO Q12, TAB 08/25/16 Mesalamine (Lialda) 1.2 Gm Tablet.dr, 1.2 GM PO AC BREAKFAST 08/25/16 Atorvastatin* (Atorvastatin*) 40 Mg Tablet, 40 MG PO QHS, #30 TAB 08/25/16 Allergies Allergies: Coded Allergies: hydrocortisone (Verified Allergy, Unknown, 08/09/16) ibuprofen (Verified Allergy, Unknown, 08/09/16) PMhx/Soc History of Surgery: No Anesthesia Reaction: No Hx Neurological Disorder: No Hx Respiratory Disorders: No Hx Cardiac Disorders: No Hx Psychiatric Problems: Yes (PER EMS - ANXIETY) Hx Miscellaneous Medical Probl: Yes (HIV (+), Hep C, non complaint, RUE thrombus,substance abuse) Hx Alcohol Use: No Hx Substance Use: No Hx Tobacco Use: Yes Smoking Status: Former smoker FmHx Family History: No diabetes Physical Exam Vitals Vital Signs Date Time Temp Pulse Resp B/P Pulse Ox O2 Delivery O2 Flow Rate FiO2 09/04/16 12:00 98.6 118 20 113/87 98 Room Air 09/04/16 09:54 97.9 117 16 119/85 100 Physical Exam Const: Cachectic, pale, chronically ill-appearing, speaks in low tone voice Head: Atraumatic Eyes: Normal Conjunctiva, dilated pupils, equal and reactive bilaterally, EOMI ENT: Dry mucous membranes Neck: Full range of motion. No meningismus. Resp: Clear to auscultation bilaterally Cardio: Tachycardic with regular rhythm, no murmurs Abd: Soft, non tender, mildly distended. Normal bowel sounds Skin: Scattered bruising. No rashes. Back: No midline or flank tenderness Rectal: Brown stool, liquidy, no blood, poor rectal tone Ext: No cyanosis, or edema Neur: Awake and alert and oriented 3, cranial nerves intact, spontaneously moves upper extremities but poor strength on strength testing, does not move her lower extremities spontaneously. Does not withdraw to pain. 0 out of 5 strength bilaterally. Poor rectal tone. Psych: Anxious Mood and depressed Affect Result Diagram: 09/04/16 1040 09/04/16 1040 Results 24 hrs Laboratory Tests Test 09/04/16 10:40 Alanine Aminotransferase (ALT/SGPT) 35IU/L Albumin 1.7g/dl Albumin/Globulin Ratio 0.62 Alkaline Phosphatase 127IU/L Anion Gap 8 Aspartate Amino Transf (AST/SGOT) 22IU/L Basophils # 0.010^3/ul Basophils % 0.2% Blood Urea Nitrogen 14mg/dl Calcium Level 7.4mg/dl Carbon Dioxide Level 30mmol/L Chloride Level 107mmol/L Creatinine 0.40mg/dl Direct Bilirubin 0.00mg/dl Eosinophils # 0.010^3/ul Eosinophils % 0.2% Globulin 2.70g/dl Glucose Level 97mg/dl Hematocrit 27.7% Hemoglobin 8.9g/dl Indirect Bilirubin 0.0mg/dl Lipase 164U/L Lymphocytes # 0.310^3/ul Lymphocytes % 7.1% Mean Corpuscular Hemoglobin 29.4pg Mean Corpuscular Hemoglobin Concent 32.1g/dl Mean Corpuscular Volume 91.4fl Mean Platelet Volume 9.1fl Monocytes # 0.410^3/ul Monocytes % 7.7% Neutrophils # 3.910^3/ul Neutrophils % 83.5% Nucleated Red Blood Cells # 0.010^3/ul Nucleated Red Blood Cells % 0.0/100WBC Platelet Count 00191^3/UL Potassium Level 3.2mmol/L Red Blood Count 3.0310^6/ul Red Cell Distribution Width 17.9% Sodium Level 142mmol/L Total Bilirubin 0.0mg/dl Total Protein 4.4g/dl Troponin I < 0.012ng/ml White Blood Count 4.710^3/ul Current Medications Medications (Trade) Dose Ordered Sig/Dianne Route PRN Reason Start Time Stop Time Status Last Admin Dose Admin Sodium Chloride (NS) 250 ml @ 250 mls/hr Q1H STAT IV 09/04/16 10:21 09/04/16 11:20 DC 09/04/16 12:11 Ondansetron HCl (Zofran Inj) 4 mg ONCE STAT IV 09/04/16 10:21 09/04/16 10:23 DC 09/04/16 10:30 Clonidine (Catapres) 0.1 mg ONCE ONCE PO 09/04/16 11:00 09/04/16 11:01 DC 09/04/16 12:11 Lorazepam 1 mg 1 mg ONCE ONCE IV 09/04/16 12:30 09/04/16 12:31 DC 09/04/16 13:39 Potassium Chloride (KCl 10 MEQ/50 ML SW) 50 ml @ 50 mls/hr K PROTOCOL PRN IVPB PENDING LAB VALUE 09/04/16 13:00 Ondansetron HCl (Zofran Inj) 4 mg BRIDGE ORDER PRN IV NAUSEA AND/OR VOMITING 09/04/16 14:00 09/05/16 13:59 Acetaminophen (Tylenol Tab) 650 mg ER BRIDGE PRN PO MILD PAIN/FEVER 09/04/16 14:00 09/05/16 13:59 Procedures/MDM EKG: Rate/Rhythm: Sinus tachycardia at 118 bpm QRS, ST, T-waves: No changes consistent w/ acute ischemia Impression: No evidence of ischemia or arrhythmia Chest x-ray shows bilateral pleural effusions per radiology Patient is presenting with generalized weakness and vitals notable for sinus tachycardia. I reviewed the patient's records and she has a extensive history of noncompliance and deconditioning secondary to her untreated medical problems. I spoke with Dr. Kay, the admitting physician who discharged her yesterday, and he states that her generalized weakness and decreased strength are chronic for the patient given her untreated medical problems. She was offered hospice and SNF placement yesterday prior to discharge, however the patient refused and said she wanted to go home. Her tachycardia today may be secondary to opiate withdrawal, versus dehydration versus acute infection. IV fluids were given without improvement of her tachycardia. clonidine was given for possible opiate withdrawal without improvement of her tachycardia. Labs were notable for hypokalemia, likely secondary to vomiting. IV replacement was started. After my discussion with Dr. Kay, he stated he would admit the patient for further workup and placement as she is unable to take care of herself at home. Accepting Care Team: Current data and ongoing care discussed. Time: Time of admission Primary Provider: Rahul Consulting: None Outstanding Data: none Departure Diagnosis: Primary Impression: Generalized weakness Additional Impressions: Dyspnea Qualified Code: R06.02 - Shortness of breath Bilateral pleural effusion Sinus tachycardia Cachexia Hypokalemia Anemia Qualified Code: D64.89 - Anemia due to other cause, not classified Condition: PREETHI Perea MD Sep 04, 2016 14:00
[2016-09-04] MEDS ORDERED: POTASSIUM CHLORIDE 250 ML IVPB ONE (14:30)
[2016-09-04] MEDS ORDERED: NACL 0.9% 3 ML SYG IV SCH (18:30)
[2016-09-04] MEDS ORDERED: HYDROCODONE/APAP (5/325) TAB PO PRN (18:30)
--- NOTE | 2016-09-04 19:04 | HP ---
DATE OF ADMISSION: 09/04/2016 CHIEF COMPLAINT: Weakness. HISTORY OF PRESENT ILLNESS: The patient is a 41-year-old female with history of human immunodeficie ncy virus with cachexia and noncompliance, as well as debility from underlying HIV. The patient was recently hospitalized and discharged yesterday after a prolonged hospitalization for anemia with a GI bleed. She has history of cirrhosis secondary to hep C, history of substance abuse, pleural effu nazanin with a right-sided thoracentesis. She has multiple chronic decubitus ulcers. Patient wanted t o go home and her father agreed to take her home, but at home her father was unable to care for the patient. During the last hospitalization, the patient refused detention placement and patient no w states that she wants to go to the detention. She has no other acute complaints at this time. PAST MEDICAL HISTORY: As per HPI. HOME MEDICATIONS: Please see medication reconciliation. ALLERGIES: HYDROCORTISONE AND IBUPROFEN. FAMILY HISTORY: Noncontributory. SOCIAL HISTORY: The patient has a history of substance abuse, but is not using at this time. No al cohol use at this time. The patient is a former smoker. REVIEW OF SYSTEMS: A 12-point review of systems negative except that as discussed in HPI. The sofie ent is having a hard time providing a full thorough review of systems secondary to her weakness. PHYSICAL EXAMINATION: VITAL SIGNS: Temperature is 98.3, pulse 114, respiratory rate is ____, blood pressure 112/85, satur ation 98% on room air. GENERAL: Cachectic, weak, in no acute distress, alert. HEENT: Normocephalic, atraumatic. CHEST: Clear to auscultation. CARDIOVASCULAR: Regular rate and rhythm. ABDOMEN: Nondistended, nontender, soft. EXTREMITIES: No clubbing, cyanosis, or edema. Cachectic. LABORATORIES: White count ____, hemoglobin is 8.9, platelets are 196. Chemistry within normal limi ts except for potassium of 3.2. Calcium is low at 7.4. DIAGNOSTICS: Chest x-ray shows a large right pleural effusion and worse ____ basilar atelectasis, s mall left pleural effusion, improved left basilar atelectasis. ASSESSMENT AND PLAN: 1. Severe debility secondary to human immunodeficiency virus with noncompliance. The patient has a history of known noncompliance and was noncompliant with her medications even during this hospitali zation. The patient is severely cachectic and debilitated, and is a candidate for hospice. Will palacio ve clinical social work aide arrange for this during this hospitalization. 2. History of human immunodeficiency virus. Once again, the patient has been noncompliant with med ication. Will continue medications in house. 3. History of anemia secondary to malnutrition, cachexia and gastrointestinal bleed. No evidence o f gastrointestinal bleed at this time. 4. Hypokalemia. We will replete. 5. History of substance abuse in the past. 5. Multiple chronic wounds. 6. Cirrhosis secondary to hepatitis C. 7. Prophylaxis. SCDs. Dictated By: ISABEL COATS/NTS Conf#: [id number] DID#: [id number]
[2016-09-04 19:58] VITALS: TEMP 98.2
[2016-09-04 21:14] VITALS: BP 106/74; RESP 18
[2016-09-04] MEDS: MESALAMINE (EC) 400 MG CAP PO SCH (22:00)
[2016-09-04] MEDS: SUCRALFATE 1 GM TAB PO SCH (22:00)
[2016-09-04] MEDS: VALGANCICLOVIR 450 MG TAB PO SCH (22:00)
[2016-09-04] MEDS: ATORVASTATIN 40 MG TAB PO SCH (22:00)
[2016-09-04] MEDS: EFAVIRENZ 600 MG TAB PO SCH (22:00)
[2016-09-04] MEDS: D5W-0.45 NACL + KCL 20 MEQ 1,000 ML IV SCH (22:32)
[2016-09-05] MEDS: PANTOPRAZOLE (EC) 40 MG TAB PO SCH ×2 (05:09→18:40)
[2016-09-05 05:21] LABS: ADD SCAN DIFF NO
[2016-09-05 05:25] LABS: ABNORMAL IP MESSAGE 1; BASOPHILS % 0.3 % (0.0-2.0); EOSINOPHILS % 0.7 % (0.0-7.0); HEMOGLOBIN 8.9 g/dl (12.0-16.0); LYMPHOCYTES # 0.4 10^3/ul (0.8-2.9); LYMPHOCYTES % 14.4 % (15.0-51.0); MEAN CORPUSCULAR HEMOGLOBIN 29.6 pg (29.0-33.0); MEAN CORPUSCULAR HGB CONC 31.8 g/dl (32.0-37.0); MEAN PLATELET VOLUME 8.7 fl (7.4-10.4); MONOCYTE # 0.3 10^3/ul (0.3-0.9); MONOCYTES % 8.6 % (0.0-11.0); NEUTROPHIL # 2.2 10^3/ul (1.6-7.5); NEUTROPHILS % 74.6 % (39.0-77.0); PLATELET COUNT 186 10^3/UL (140-415); RED BLOOD COUNT 3.01 10^6/ul (4.20-5.40); RED CELL DISTRIBUTION WIDTH 17.7 % (11.5-14.5); WHITE BLOOD COUNT 2.9 10^3/ul (4.8-10.8)
[2016-09-05 05:44] LABS: POTASSIUM 3.7 mmol/L (3.5-5.1)
[2016-09-05 05:46] LABS: CREATININE 0.4 mg/dl (0.44-1.00)
[2016-09-05 05:48] LABS: CALCIUM 7.2 mg/dl (8.4-10.2); MAGNESIUM 1.8 mg/dl (1.7-2.5); PHOSPHORUS 2.5 mg/dl (2.5-4.9)
[2016-09-05] MEDS: COLLAGENASE 30 GM TUBE TOP SCH (05:57)
[2016-09-05] MEDS: D5W-0.45 NACL + KCL 20 MEQ 1,000 ML IV SCH ×4 (08:00→21:26)
[2016-09-05] MEDS: SUCRALFATE 1 GM TAB PO SCH ×4 (08:13→21:16)
[2016-09-05] MEDS: MESALAMINE (EC) 400 MG CAP PO SCH ×3 (08:14→21:16)
[2016-09-05] MEDS: EMTRICITABINE/TENOFOVIR TAB PO SCH (08:14)
[2016-09-05] MEDS: VALGANCICLOVIR 450 MG TAB PO SCH ×2 (08:14→21:16)
[2016-09-05 08:42] VITALS: BP 108/77; RESP 18
[2016-09-05] MEDS: morphine 2 MG INJ IV PRN ×2 (15:46→21:25)
--- NOTE | 2016-09-05 16:05 | CONS ---
Date/Time of Note Date/Time of Note DATE: 09/05/16 TIME: 16:01 Assessment/Plan Assessment/Plan Chief Complaint/Hosp Course SUBJECTIVE: Readmitted with severe weakness, alert, looks comfortable, no fevers ANTIMICROBIALS: 1. Sustiva. 2. Truvada. PHYSICAL EXAMINATION: GENERAL: This is a cachectic, ill-appearing, middle-aged woman who is awake, lying comfortably in bed. HEENT: Head atraumatic, normocephalic. Sclerae anicteric. Buccal mucosa dry. NECK: Supple, trachea midline. CHEST: Rise symmetrical. Breath sounds diminished to bases. HEART: S1, S2. ABDOMEN: Soft. Bowel tones present. EXTREMITIES: With bilateral hand edema SKIN: Severe anasarca. ASSESSMENT: 1. Severe decompensated state 2. HIV==> CD4 count 392. 3. Anemia, s/p GIB===> EGD done 4. Pleural effusions 5. 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 6. Cachexia with severe protein calorie malnutrition 7. Hx of Inocencia esophagitis. 8. Hepatitis C virus. 9. History of substance abuse. 10.RUE PICC PLAN: Stable, continue present care, will ask for pulmonary eval [address] effusions DW staff Problems: Consultation Date/Type/Reason Admit Date/Time Sep 04, 2016 at 13:43 Initial Consult Date Type of Consultation: ID Exam/Review of Systems Vital Signs Vitals Vital Signs Date Time Temp Pulse Resp B/P Pulse Ox O2 Delivery O2 Flow Rate FiO2 09/05/16 08:42 98.2 109 18 108/77 96 09/04/16 19:58 Room Air Intake and Output 09/04/16 09/04/16 09/05/16 15:00 23:00 07:00 Intake Total 0 ml Balance 0 ml Results Result Diagram: 09/05/16 0453 09/05/16 0453 Results 24 hrs Laboratory Tests Test 09/05/16 04:53 09/05/16 09:52 Anion Gap 8 Basophils # 0.0 Basophils % 0.3 Blood Urea Nitrogen 11 Calcium Level 7.2 L Carbon Dioxide Level 27 Chloride Level 107 Creatinine 0.40 L Eosinophils # 0.0 Eosinophils % 0.7 Glucose Level 70 Hematocrit 28.0 L Hemoglobin 8.9 L Lymphocytes # 0.4 L Lymphocytes % 14.4 L Magnesium Level 1.8 Mean Corpuscular Hemoglobin 29.6 Mean Corpuscular Hemoglobin Concent 31.8 L Mean Corpuscular Volume 93.0 Mean Platelet Volume 8.7 Monocytes # 0.3 Monocytes % 8.6 Neutrophils # 2.2 Neutrophils % 74.6 Nucleated Red Blood Cells # 0.0 Nucleated Red Blood Cells % 0.0 Phosphorus Level 2.5 Platelet Count 186 Potassium Level 3.7 Prealbumin 9.7 L Red Blood Count 3.01 L Red Cell Distribution Width 17.7 H Serum HCG, Qualitative NEGATIVE Sodium Level 138 White Blood Count 2.9 #L Lab Scanned Report REFERENCE LAB Medications Medications Current Medications Potassium Chloride/Dextrose/ Sod Cl (D5-1/2ns + KCl 20 Meq) 1,000 ml @ 100 mls/ hr Q10H IV Last administered on 09/05/16 11:08; Admin Dose 100 MLS/HR; Start 09/04/16 at 22:00 Ondansetron HCl (Zofran Inj) 4 mg Q6H PRN IV NAUSEA AND/OR VOMITING Last administered on 09/05/16 08:07; Admin Dose 4 MG; Start 09/04/16 at 18:30 Acetaminophen (Tylenol Tab) 650 mg Q6H PRN PO PAIN LEVEL 1-3 OR FEVER; Start at 18:30 Acetaminophen/ Hydrocodone Bitart ([place] (5/325)) 1 tab Q6H PRN PO MODERATE PAIN LEVEL 4-6; Start 09/04/16 at 18:30 Morphine Sulfate (morphine) 2 mg Q4H PRN IV SEVERE PAIN LEVEL 7-10 Last administered on 09/05/16 15:46; Admin Dose 2 MG; Start 09/04/16 at 18:30 Zolpidem Tartrate (Ambien) 5 mg QHS PRN PO SLEEP; Start 09/04/16 at 18:30 Atorvastatin Calcium (Lipitor) 40 mg QHS PO ; Start 09/04/16 at 22:00 Efavirenz (Sustiva) 600 mg QHS PO ; Start 09/04/16 at 22:00 Emtricitabine/ Tenofovir (Truvada) 1 tab DAILY PO ; Start 09/05/16 at 09:00 Pantoprazole (Protonix Tab) 40 mg BID@06,18 PO ; Start 09/05/16 at 06:00 Sucralfate (Carafate) 1 gm QID PO Last administered on 09/05/16 13:58; Admin Dose 1 GM; Start 09/04/16 at 22:00 Valganciclovir (Valcyte) 450 mg Q12 PO ; Start 09/04/16 at 22:00 Mesalamine (Delzicol Dr) 400 mg TID PO Last administered on 09/05/16 13:58; Admin Dose 400 MG; Start 09/04/16 at 22:00 Collagenase (Santyl) 1 applic DAILY TOP Last administered on 09/05/16 05:57; Admin Dose 1 APPLIC; Start 09/05/16 at 09:00 Influenza Virus Vaccine (Fluzone) 0.5 ml ONCE ONCE IM* ; Start 09/06/16 at 09:00 ; Stop 09/06/16 at 09:01 AGUILA BURGOS FEED INSPECTION SUPERVISOR Sep 05, 2016 16:05
[2016-09-05 20:55] VITALS: BP 82/62; RESP 17
[2016-09-05] MEDS: ATORVASTATIN 40 MG TAB PO SCH (21:16)
[2016-09-05] MEDS: EFAVIRENZ 600 MG TAB PO SCH (21:16)
[2016-09-06] MEDS: PANTOPRAZOLE (EC) 40 MG TAB PO SCH ×2 (05:19→17:09)
[2016-09-06] MEDS: morphine 2 MG INJ IV PRN ×2 (05:19→21:18)
[2016-09-06 08:59] VITALS: BP 107/76; RESP 18
[2016-09-06] MEDS ORDERED: INFLUENZA VIRUS VACCINE 0.5 ML (DISPENSING) IM* ONE (09:00)
[2016-09-06] MEDS: SUCRALFATE 1 GM TAB PO SCH ×4 (09:18→20:56)
[2016-09-06] MEDS: MESALAMINE (EC) 400 MG CAP PO SCH ×3 (09:18→20:55)
[2016-09-06] MEDS: EMTRICITABINE/TENOFOVIR TAB PO SCH (09:18)
[2016-09-06] MEDS: VALGANCICLOVIR 450 MG TAB PO SCH ×2 (09:18→20:56)
[2016-09-06] MEDS: D5W-0.45 NACL + KCL 20 MEQ 1,000 ML IV SCH ×2 (09:19→23:36)
[2016-09-06] MEDS: COLLAGENASE 30 GM TUBE TOP SCH (09:25)
--- NOTE | 2016-09-06 14:58 | PN ---
Date/Time of Note Date/Time of Note DATE: 09/06/16 TIME: 14:52 Assessment/Plan VTE Prophylaxis VTE Prophylaxis Intervention: SCD's Lines/Catheters IV C[facility] Type (from [facility]): PICC Line Central line still needed: Yes Urinary Cath still in place: No Assessment/Plan Assessment/Plan 1. Debility secondary to cachexia from HIV infection and noncompliance. 2. Anemia, status post * Colonoscopy 06/25/16 with Severe colitis with deep ulcerations in skip areas areas suggestive of possibility of Crohn's disease. There is also exudate that raises the question of pseudomembranous colitis. Colonic effluent and biopsies were obtained. * EGD 06/24/16 with Suspected Inocencia esophagiti, confirmed on biopsy and Atrophic gastropathy. 3. Cirrhosis secondary to hepatitis C. The patient advised to seek treatment as an outpatient. 4. Pleural effusion, status post right sided thoracentesis. The patient has been refusing azithromycin for atypical MAC. There is no evidence of any MAC infection at this time. AST from pleural fluid was negative and AFB sputum is negative x2 at this time. 5. Multiple chronic wounds, stage IV ulcers. 6. Anasarca secondary to Cirrhosis with protein calorie malnutrition. 7. History of substance abuse. 8. History of noncompliance. 9. Inocencia Esophagitis s/p treatment DISPO: remains stable / awaiting SNF placement LUE USS r/o dvt Continue serial lab monitoring / replete as indicated Continue current regimen and supportive care Subjective 24 Hr Interval Summary Free Text/Dictation c/o l sided upper extremity discomfort Exam/Review of Systems Vital Signs Vitals Vital Signs Date Time Temp Pulse Resp B/P Pulse Ox O2 Delivery O2 Flow Rate FiO2 09/06/16 08:59 98.6 110 18 107/76 96 09/04/16 19:58 Room Air Intake and Output 09/05/16 09/05/16 09/06/16 15:00 23:00 07:00 Intake Total 1860 ml 920 ml Balance 1860 ml 920 ml Exam GENERAL: Cachectic, weak, in no acute distress, alert. HEENT: Normocephalic, atraumatic. CHEST: Clear to auscultation. CARDIOVASCULAR: Regular rate and rhythm. ABDOMEN: Nondistended, nontender, soft. EXTREMITIES: No clubbing, cyanosis, or edema. Cachectic. PICC line LUE Results Result Diagram: 09/05/16 0453 09/05/16 0453 Medications Medications Current Medications Potassium Chloride/Dextrose/ Sod Cl (D5-1/2ns + KCl 20 Meq) 1,000 ml @ 100 mls/ hr Q10H IV Last administered on 09/06/16 09:19; Admin Dose 100 MLS/HR; Start 09/04/16 at 22:00 Ondansetron HCl (Zofran Inj) 4 mg Q6H PRN IV NAUSEA AND/OR VOMITING Last administered on 09/05/16 08:07; Admin Dose 4 MG; Start 09/04/16 at 18:30 Acetaminophen (Tylenol Tab) 650 mg Q6H PRN PO PAIN LEVEL 1-3 OR FEVER; Start at 18:30 Acetaminophen/ Hydrocodone Bitart ([place] (5/325)) 1 tab Q6H PRN PO MODERATE PAIN LEVEL 4-6; Start 09/04/16 at 18:30 Morphine Sulfate (morphine) 2 mg Q4H PRN IV SEVERE PAIN LEVEL 7-10 Last administered on 09/06/16 05:19; Admin Dose 2 MG; Start 09/04/16 at 18:30 Zolpidem Tartrate (Ambien) 5 mg QHS PRN PO SLEEP; Start 09/04/16 at 18:30 Atorvastatin Calcium (Lipitor) 40 mg QHS PO Last administered on 09/05/16 21: 16; Admin Dose 40 MG; Start 09/04/16 at 22:00 Efavirenz (Sustiva) 600 mg QHS PO Last administered on 09/05/16 21:16; Admin Dose 600 MG; Start 09/04/16 at 22:00 Emtricitabine/ Tenofovir (Truvada) 1 tab DAILY PO Last administered on 09:18; Admin Dose 1 TAB; Start 09/05/16 at 09:00 Pantoprazole (Protonix Tab) 40 mg BID@,18 PO Last administered on 09/06/16 05:19; Admin Dose 40 MG; Start 09/05/16 at 06:00 Sucralfate (Carafate) 1 gm QID PO Last administered on 09/06/16 13:46; Admin Dose 1 GM; Start 09/04/16 at 22:00 Valganciclovir (Valcyte) 450 mg Q12 PO Last administered on 09/06/16 09:18; Admin Dose 450 MG; Start 09/04/16 at 22:00 Mesalamine (Delzicol Dr) 400 mg TID PO Last administered on 09/06/16 13:46; Admin Dose 400 MG; Start 09/04/16 at 22:00 Collagenase (Santyl) 1 applic DAILY TOP Last administered on 09/06/16 09:25; Admin Dose 1 APPLIC; Start 09/05/16 at 09:00 Lorazepam (Ativan) 0.5 mg Q6H PRN PO ANXIETY; Start 09/06/16 at 14:00 FERNANDO HOOD Sep 06, 2016 14:58
[2016-09-06] MEDS: LORAZEPAM 0.5 MG TAB PO PRN (15:16)
--- NOTE | 2016-09-06 16:29 | CONS ---
Date/Time of Note Date/Time of Note DATE: 09/06/16 TIME: 16:28 Assessment/Plan Assessment/Plan Chief Complaint/Hosp Course SUBJECTIVE: no events, alert, looks comfortable, no fevers ANTIMICROBIALS: 1. Sustiva. 2. Truvada. PHYSICAL EXAMINATION: GENERAL: This is a cachectic, ill-appearing, middle-aged woman who is awake, lying comfortably in bed. HEENT: Head atraumatic, normocephalic. Sclerae anicteric. Buccal mucosa dry. NECK: Supple, trachea midline. CHEST: Rise symmetrical. Breath sounds diminished to bases. HEART: S1, S2. ABDOMEN: Soft. Bowel tones present. EXTREMITIES: With bilateral hand edema SKIN: Severe anasarca. ASSESSMENT: 1. Severe decompensated state 2. HIV==> CD4 count 392. 3. Anemia, s/p GIB===> EGD done 4. Pleural effusions 5. 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 6. Cachexia with severe protein calorie malnutrition 7. Hx of Inocencia esophagitis. 8. Hepatitis C virus. 9. History of substance abuse. 10.RUE PICC PLAN: Remains stable, continue present care, pulmonary rec-s DW staff Problems: Consultation Date/Type/Reason Admit Date/Time Sep 04, 2016 at 13:43 Type of Consultation: ID Exam/Review of Systems Vital Signs Vitals Vital Signs Date Time Temp Pulse Resp B/P Pulse Ox O2 Delivery O2 Flow Rate FiO2 09/06/16 08:59 98.6 110 18 107/76 96 09/04/16 19:58 Room Air Intake and Output 09/05/16 09/05/16 09/06/16 15:00 23:00 07:00 Intake Total 1860 ml 920 ml Balance 1860 ml 920 ml Results Result Diagram: 09/05/16 0453 09/05/16 0453 Medications Medications Current Medications Potassium Chloride/Dextrose/ Sod Cl (D5-1/2ns + KCl 20 Meq) 1,000 ml @ 100 mls/ hr Q10H IV Last administered on 09/06/16 09:19; Admin Dose 100 MLS/HR; Start 09/04/16 at 22:00 Ondansetron HCl (Zofran Inj) 4 mg Q6H PRN IV NAUSEA AND/OR VOMITING Last administered on 09/05/16 08:07; Admin Dose 4 MG; Start 09/04/16 at 18:30 Acetaminophen (Tylenol Tab) 650 mg Q6H PRN PO PAIN LEVEL 1-3 OR FEVER; Start at 18:30 Acetaminophen/ Hydrocodone Bitart ([place] (5/325)) 1 tab Q6H PRN PO MODERATE PAIN LEVEL 4-6; Start 09/04/16 at 18:30 Morphine Sulfate (morphine) 2 mg Q4H PRN IV SEVERE PAIN LEVEL 7-10 Last administered on 09/06/16 05:19; Admin Dose 2 MG; Start 09/04/16 at 18:30 Zolpidem Tartrate (Ambien) 5 mg QHS PRN PO SLEEP; Start 09/04/16 at 18:30 Atorvastatin Calcium (Lipitor) 40 mg QHS PO Last administered on 09/05/16 21: 16; Admin Dose 40 MG; Start 09/04/16 at 22:00 Efavirenz (Sustiva) 600 mg QHS PO Last administered on 09/05/16 21:16; Admin Dose 600 MG; Start 09/04/16 at 22:00 Emtricitabine/ Tenofovir (Truvada) 1 tab DAILY PO Last administered on 09:18; Admin Dose 1 TAB; Start 09/05/16 at 09:00 Pantoprazole (Protonix Tab) 40 mg BID@,18 PO Last administered on 09/06/16 05:19; Admin Dose 40 MG; Start 09/05/16 at 06:00 Sucralfate (Carafate) 1 gm QID PO Last administered on 09/06/16 13:46; Admin Dose 1 GM; Start 09/04/16 at 22:00 Valganciclovir (Valcyte) 450 mg Q12 PO Last administered on 09/06/16 09:18; Admin Dose 450 MG; Start 09/04/16 at 22:00 Mesalamine (Delzicol Dr) 400 mg TID PO Last administered on 09/06/16 13:46; Admin Dose 400 MG; Start 09/04/16 at 22:00 Collagenase (Santyl) 1 applic DAILY TOP Last administered on 09/06/16 09:25; Admin Dose 1 APPLIC; Start 09/05/16 at 09:00 Lorazepam (Ativan) 0.5 mg Q6H PRN PO ANXIETY Last administered on 09/06/16t 15: 16; Admin Dose 0.5 MG; Start 09/06/16 at 14:00 AGUILA BURGOS NP Sep 06, 2016 16:29
[2016-09-06 20:36] VITALS: BP 103/74; RESP 18
[2016-09-06] MEDS: EFAVIRENZ 600 MG TAB PO SCH (20:56)
[2016-09-06] MEDS: ATORVASTATIN 40 MG TAB PO SCH (20:56)
[2016-09-07] MEDS: morphine 2 MG INJ IV PRN ×3 (03:53→19:50)
[2016-09-07] MEDS: PANTOPRAZOLE (EC) 40 MG TAB PO SCH ×2 (05:00→17:14)
[2016-09-07 08:39] VITALS: BP 113/79; RESP 16
[2016-09-07] MEDS: EMTRICITABINE/TENOFOVIR TAB PO SCH (09:02)
[2016-09-07] MEDS: VALGANCICLOVIR 450 MG TAB PO SCH ×2 (09:02→20:24)
[2016-09-07] MEDS: MESALAMINE (EC) 400 MG CAP PO SCH ×3 (09:02→20:25)
[2016-09-07] MEDS: SUCRALFATE 1 GM TAB PO SCH ×4 (09:02→20:24)
[2016-09-07] MEDS: COLLAGENASE 30 GM TUBE TOP SCH (09:02)
[2016-09-07] MEDS: D5W-0.45 NACL + KCL 20 MEQ 1,000 ML IV SCH (10:00)
--- NOTE | 2016-09-07 14:46 | PN ---
Date/Time of Note Date/Time of Note DATE: 09/07/16 TIME: 14:37 Assessment/Plan VTE Prophylaxis VTE Prophylaxis Intervention: SCD's Lines/Catheters IV [facility] PICC Line Central line still needed: Yes Urinary Cath still in place: No Assessment/Plan Assessment/Plan 1. Debility secondary to cachexia from HIV infection and noncompliance. 2. Anemia, status post * Colonoscopy 06/25/16 with Severe colitis with deep ulcerations in skip areas areas suggestive of possibility of Crohn's disease. There is also exudate that raises the question of pseudomembranous colitis. Colonic effluent and biopsies were obtained. * EGD 06/24/16 with Suspected Inocencia esophagitis, confirmed on biopsy and Atrophic gastropathy. 3. Cirrhosis secondary to hepatitis C. The patient advised to seek treatment as an outpatient. 4. Pleural effusion, status post right sided thoracentesis. The patient has been refusing azithromycin for atypical MAC. There is no evidence of any MAC infection at this time. AST from pleural fluid was negative and AFB sputum is negative x2 at this time. 5. Multiple chronic wounds, stage IV ulcers. 6. Anasarca secondary to Cirrhosis with protein calorie malnutrition. 7. History of substance abuse. 8. History of noncompliance. 9. Inocencia Esophagitis s/p treatment DISPO: Tele Psych review f/u USS findings Continue In-house PT remains stable / awaiting SNF placement Continue serial lab monitoring / replete as indicated Continue current regimen and supportive care Subjective 24 Hr Interval Summary Free Text/Dictation c/o sucidal ideations wants to ambulate and get out of bed Exam/Review of Systems Vital Signs Vitals Vital Signs Date Time Temp Pulse Resp B/P Pulse Ox O2 Delivery O2 Flow Rate FiO2 09/07/16 08:39 99.3 123 16 113/79 93 09/04/16 19:58 Room Air Intake and Output 09/06/16 09/06/16 09/07/16 15:00 23:00 07:00 Intake Total 200 ml 1300 ml 720 ml Balance 200 ml 1300 ml 720 ml Exam Constitutional: alert, frail, oriented, other (sow speech) Psych: suicidal, No nl mood/affect (blank affect) Head: normocephalic Respiratory: clear to auscultation, diminished breath sounds Cardiovascular: regular rate and rhythm, No murmurs/extra sounds Gastrointestinal: bowel sounds, non-tender, soft Musculoskeletal: other (L charcot's foot), No nl extremities to inspection Extremities: No edema Neurological: nl mental status Results Result Diagram: 09/05/1645209/05/16 045 Medications Medications Current Medications Potassium Chloride/Dextrose/ Sod Cl (D5-1/2ns + KCl 20 Meq) 1,000 ml @ 100 mls/ hr Q10H IV Last administered on 09/06/16 09:19; Admin Dose 100 MLS/HR; Start 09/04/16 at 22:00 Ondansetron HCl (Zofran Inj) 4 mg Q6H PRN IV NAUSEA AND/OR VOMITING Last administered on 09/05/16 08:07; Admin Dose 4 MG; Start 09/04/16 at 18:30 Acetaminophen (Tylenol Tab) 650 mg Q6H PRN PO PAIN LEVEL 1-3 OR FEVER; Start at 18:30 Acetaminophen/ Hydrocodone Bitart ([place] (5/325)) 1 tab Q6H PRN PO MODERATE PAIN LEVEL 4-6; Start 09/04/16 at 18:30 Morphine Sulfate (morphine) 2 mg Q4H PRN IV SEVERE PAIN LEVEL 7-10 Last administered on 09/07/16 11:58; Admin Dose 2 MG; Start 09/04/16 at 18:30 Zolpidem Tartrate (Ambien) 5 mg QHS PRN PO SLEEP; Start 09/04/16 at 18:30 Atorvastatin Calcium (Lipitor) 40 mg QHS PO Last administered on 09/06/16 20: 56; Admin Dose 40 MG; Start 09/04/16 at 22:00 Efavirenz (Sustiva) 600 mg QHS PO Last administered on 09/06/16 20:56; Admin Dose 600 MG; Start 09/04/16 at 22:00 Emtricitabine/ Tenofovir (Truvada) 1 tab DAILY PO Last administered on 09:02; Admin Dose 1 TAB; Start 09/05/16 at 09:00 Pantoprazole (Protonix Tab) 40 mg BID@06,18 PO Last administered on 09/07/16 05:00; Admin Dose 40 MG; Start 09/05/16 at 06:00 Sucralfate (Carafate) 1 gm QID PO Last administered on 09/07/16 12:53; Admin Dose 1 GM; Start 09/04/16 at 22:00 Valganciclovir (Valcyte) 450 mg Q12 PO Last administered on 09/07/16 09:02; Admin Dose 450 MG; Start 09/04/16 at 22:00 Mesalamine (Delzicol Dr) 400 mg TID PO Last administered on 09/07/16 12:53; Admin Dose 400 MG; Start 09/04/16 at 22:00 Collagenase (Santyl) 1 applic DAILY TOP Last administered on 09/07/16 09:02; Admin Dose 1 APPLIC; Start 09/05/16 at 09:00 Lorazepam (Ativan) 0.5 mg Q6H PRN PO ANXIETY Last administered on 09/06/16 15: 16; Admin Dose 0.5 MG; Start 09/06/16 at 14:00 Procedures Procedures PROCEDURE: XR Chest. CLINICAL INDICATION: Abdominal pain. TECHNIQUE: Single frontal view. COMPARISON: 08/28/2016. FINDINGS: The left arm PICC line tip is in the superior vena cava. There is atelectasis at the the right lung base and a moderate right pleural effusion, worse than seen previously. There is a left pleural effusion and left basilar atelectases. The heart size is normal. There is no pneumothorax. IMPRESSION: 1. Larger right pleural effusion and worse right basilar atelectasis. 2. Smaller left pleural effusion and improved left basilar atelectasis. 3. Left arm PICC line tip in the superior vena cava. RPTAT: QQ .Patricio Phillips MD, Date Time Electronically viewed and signed by .Patricio Phillips MD, MD on 09/04/2016 10:41 .R/ CC: PREETHI DA SILVA MD, BOLATITO M. Sep 07, 2016 14:46
--- NOTE | 2016-09-07 15:37 | CONS ---
Date/Time of Note Date/Time of Note DATE: 09/07/16 TIME: 15:36 Assessment/Plan Assessment/Plan Chief Complaint/Hosp Course SUBJECTIVE: no events, sleeping, looks comfortable, no fevers ANTIMICROBIALS: 1. Sustiva. 2. Truvada. PHYSICAL EXAMINATION: GENERAL: This is a cachectic, ill-appearing, middle-aged woman who is awake, lying comfortably in bed. HEENT: Head atraumatic, normocephalic. Sclerae anicteric. Buccal mucosa dry. NECK: Supple, trachea midline. CHEST: Rise symmetrical. Breath sounds diminished to bases. HEART: S1, S2. ABDOMEN: Soft. Bowel tones present. EXTREMITIES: With bilateral hand edema SKIN: Severe anasarca. ASSESSMENT: 1. Severe decompensated state 2. HIV==> CD4 count 392. 3. Anemia, s/p GIB===> EGD done 4. Pleural effusions 5. 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 6. Cachexia with severe protein calorie malnutrition 7. Hx of Inocencia esophagitis. 8. Hepatitis C virus. 9. History of substance abuse. 10.RUE PICC PLAN: Remains unchanged, continue present care DW staff Problems: Consultation Date/Type/Reason Admit Date/Time Sep 04, 2016 at 13:43 Type of Consultation: ID Exam/Review of Systems Vital Signs Vitals Vital Signs Date Time Temp Pulse Resp B/P Pulse Ox O2 Delivery O2 Flow Rate FiO2 09/07/16 08:39 99.3 123 16 113/79 93 09/04/16 19:58 Room Air Intake and Output 09/06/16 09/06/16 09/07/16 15:00 23:00 07:00 Intake Total 200 ml 1300 ml 720 ml Balance 200 ml 1300 ml 720 ml Results Result Diagram: 09/05/16 0453 09/05/16 0453 Medications Medications Current Medications Potassium Chloride/Dextrose/ Sod Cl (D5-1/2ns + KCl 20 Meq) 1,000 ml @ 100 mls/ hr Q10H IV Last administered on 09/06/16 09:19; Admin Dose 100 MLS/HR; Start 09/04/16 at 22:00 Ondansetron HCl (Zofran Inj) 4 mg Q6H PRN IV NAUSEA AND/OR VOMITING Last administered on 09/05/16 08:07; Admin Dose 4 MG; Start 09/04/16 at 18:30 Acetaminophen (Tylenol Tab) 650 mg Q6H PRN PO PAIN LEVEL 1-3 OR FEVER; Start at 18:30 Acetaminophen/ Hydrocodone Bitart ([place] (5/325)) 1 tab Q6H PRN PO MODERATE PAIN LEVEL 4-6; Start 09/04/16 at 18:30 Morphine Sulfate (morphine) 2 mg Q4H PRN IV SEVERE PAIN LEVEL 7-10 Last administered on 09/07/16 11:58; Admin Dose 2 MG; Start 09/04/16 at 18:30 Zolpidem Tartrate (Ambien) 5 mg QHS PRN PO SLEEP; Start 09/04/16 at 18:30 Atorvastatin Calcium (Lipitor) 40 mg QHS PO Last administered on 09/06/16 20: 56; Admin Dose 40 MG; Start 09/04/16 at 22:00 Efavirenz (Sustiva) 600 mg QHS PO Last administered on 09/06/16 20:56; Admin Dose 600 MG; Start 09/04/16 at 22:00 Emtricitabine/ Tenofovir (Truvada) 1 tab DAILY PO Last administered on 09:02; Admin Dose 1 TAB; Start 09/05/16 at 09:00 Pantoprazole (Protonix Tab) 40 mg BID@18 PO Last administered on 09/07/16 05:00; Admin Dose 40 MG; Start 09/05/16 at 06:00 Sucralfate (Carafate) 1 gm QID PO Last administered on 09/07/16 12:53; Admin Dose 1 GM; Start 09/04/16 at 22:00 Valganciclovir (Valcyte) 450 mg Q12 PO Last administered on 09/07/16 09:02; Admin Dose 450 MG; Start 09/04/16 at 22:00 Mesalamine (Delzicol Dr) 400 mg TID PO Last administered on 09/07/16 12:53; Admin Dose 400 MG; Start 09/04/16 at 22:00 Collagenase (Santyl) 1 applic DAILY TOP Last administered on 09/07/16 09:02; Admin Dose 1 APPLIC; Start 09/05/16 at 09:00 Lorazepam (Ativan) 0.5 mg Q6H PRN PO ANXIETY Last administered on 09/06/16t 15: 16; Admin Dose 0.5 MG; Start 09/06/16 at 14:00 AGUILA BURGOS NP Sep 07, 2016 15:37
[2016-09-07] MEDS: LORAZEPAM 0.5 MG TAB PO PRN (17:18)
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
--- NOTE | 2016-09-07 17:55 | CONS ---
Date/Time of Note Date/Time of Note DATE: 09/07/16 TIME: 20:54 Assessment/Plan Assessment/Plan Additional Assessment/Plan Addendum to recent note. Given low liver function, start lexapro at 2.5mg rather than 5mg. Also ambien 2.5mg prn rather than 5mg Consultation Date/Type/Reason Admit Date/Time Sep 04, 2016 at 13:43 Initial Consult Date Type of Consultation: ID Exam/Review of Systems Vital Signs Vitals Vital Signs Date Time Temp Pulse Resp B/P Pulse Ox O2 Delivery O2 Flow Rate FiO2 09/07/16 08:39 99.3 123 16 113/79 93 09/04/16 19:58 Room Air Intake and Output 09/06/16 09/06/16 09/07/16 12:00 20:00 04:00 Intake Total 1120 ml 1300 ml Balance 1120 ml 1300 ml Results Result Diagram: 09/05/16 0453 09/05/16 0453 Medications Medications Current Medications Ondansetron HCl (Zofran Inj) 4 mg Q6H PRN IV NAUSEA AND/OR VOMITING Last administered on 09/05/16 08:07; Admin Dose 4 MG; Start 09/04/16 at 18:30 Acetaminophen (Tylenol Tab) 650 mg Q6H PRN PO PAIN LEVEL 1-3 OR FEVER; Start at 18:30 Acetaminophen/ Hydrocodone Bitart ([place] (5/325)) 1 tab Q6H PRN PO MODERATE PAIN LEVEL 4-6; Start 09/04/16 at 18:30 Morphine Sulfate (morphine) 2 mg Q4H PRN IV SEVERE PAIN LEVEL 7-10 Last administered on 09/07/16 11:58; Admin Dose 2 MG; Start 09/04/16 at 18:30 Zolpidem Tartrate (Ambien) 5 mg QHS PRN PO SLEEP; Start 09/04/16 at 18:30 Atorvastatin Calcium (Lipitor) 40 mg QHS PO Last administered on 09/06/16 20: 56; Admin Dose 40 MG; Start 09/04/16 at 22:00 Efavirenz (Sustiva) 600 mg QHS PO Last administered on 09/06/16 20:56; Admin Dose 600 MG; Start 09/04/16 at 22:00 Emtricitabine/ Tenofovir (Truvada) 1 tab DAILY PO Last administered on 09:02; Admin Dose 1 TAB; Start 09/05/16 at 09:00 Pantoprazole (Protonix Tab) 40 mg BID@18 PO Last administered on 09/07/16 17:14; Admin Dose 40 MG; Start 09/05/16 at 06:00 Sucralfate (Carafate) 1 gm QID PO Last administered on 09/07/16 17:14; Admin Dose 1 GM; Start 09/04/16 at 22:00 Valganciclovir (Valcyte) 450 mg Q12 PO Last administered on 09/07/16 09:02; Admin Dose 450 MG; Start 09/04/16 at 22:00 Mesalamine (Delzicol Dr) 400 mg TID PO Last administered on 09/07/16 12:53; Admin Dose 400 MG; Start 09/04/16 at 22:00 Collagenase (Santyl) 1 applic DAILY TOP Last administered on 09/07/16 09:02; Admin Dose 1 APPLIC; Start 09/05/16 at 09:00 Lorazepam (Ativan) 0.5 mg Q6H PRN PO ANXIETY Last administered on 09/07/16 17: 18; Admin Dose 0.5 MG; Start 09/06/16 at 14:00 ELLIOTT ALEX Sep 07, 2016 17:55
[2016-09-07] MEDS: ESCITALOPRAM 10 MG TAB PO SCH (18:23)
[2016-09-07 19:48] VITALS: BP 118/81; RESP 18
[2016-09-07] MEDS: EFAVIRENZ 600 MG TAB PO SCH (20:25)
[2016-09-07] MEDS: ATORVASTATIN 40 MG TAB PO SCH (20:25)
[2016-09-08] MEDS: morphine 2 MG INJ IV PRN ×3 (02:06→14:13)
[2016-09-08] MEDS: PANTOPRAZOLE (EC) 40 MG TAB PO SCH ×2 (05:02→17:19)
[2016-09-08 05:19] LABS: ADD SCAN DIFF NO
[2016-09-08 05:22] LABS: BASOPHILS % 0.4 % (0.0-2.0); EOSINOPHILS # 0.1 10^3/ul (0.0-0.5); EOSINOPHILS % 1.1 % (0.0-7.0); HEMATOCRIT 25.7 % (37.0-47.0); HEMOGLOBIN 8.5 g/dl (12.0-16.0); LYMPHOCYTES # 0.7 10^3/ul (0.8-2.9); LYMPHOCYTES % 16.1 % (15.0-51.0); MEAN CORPUSCULAR HEMOGLOBIN 30.4 pg (29.0-33.0); MEAN CORPUSCULAR HGB CONC 33.1 g/dl (32.0-37.0); MEAN CORPUSCULAR VOLUME 91.8 fl (82.0-101.0); MEAN PLATELET VOLUME 8.9 fl (7.4-10.4); MONOCYTE # 0.3 10^3/ul (0.3-0.9); MONOCYTES % 7.1 % (0.0-11.0); NEUTROPHIL # 3.3 10^3/ul (1.6-7.5); NEUTROPHILS % 72.9 % (39.0-77.0); PLATELET COUNT 168 10^3/UL (140-415); RED CELL DISTRIBUTION WIDTH 16.9 % (11.5-14.5); WHITE BLOOD COUNT 4.5 10^3/ul (4.8-10.8)
[2016-09-08 05:50] LABS: ALBUMIN 1.6 g/dl (3.3-4.9); POTASSIUM 3.1 mmol/L (3.5-5.1)
[2016-09-08 05:53] LABS: CALCIUM 6.8 mg/dl (8.4-10.2); CREATININE 0.45 mg/dl (0.44-1.00); MAGNESIUM 1.5 mg/dl (1.7-2.5); PHOSPHORUS 2.1 mg/dl (2.5-4.9)
[2016-09-08 07:57] VITALS: BP 117/83; RESP 20
[2016-09-08] MEDS: ESCITALOPRAM 10 MG TAB PO SCH (08:29)
[2016-09-08] MEDS: MESALAMINE (EC) 400 MG CAP PO SCH ×3 (08:29→21:34)
[2016-09-08] MEDS: SUCRALFATE 1 GM TAB PO SCH ×4 (08:29→21:34)
[2016-09-08] MEDS: EMTRICITABINE/TENOFOVIR TAB PO SCH (08:29)
[2016-09-08] MEDS: VALGANCICLOVIR 450 MG TAB PO SCH ×2 (08:30→22:57)
[2016-09-08] MEDS: COLLAGENASE 30 GM TUBE TOP SCH (08:31)
[2016-09-08 08:34] VITALS: BP 117/83; PULSE 109; RESP 20
[2016-09-08] MEDS: LORAZEPAM 0.5 MG TAB PO PRN (08:36)
--- NOTE | 2016-09-08 10:31 | RADRPT ---
PROCEDURE: Left upper extremity venous ultrasound CLINICAL INDICATION: Left arm pain and swelling. Deep venous thrombosis. Left upper extremity PICC line TECHNIQUE: Claros scale, color doppler, spectral doppler ultrasound imaging of the venous system of the left upper extremity. Augmentation maneuvers were utilized. COMPARISON: 08/13/2016 FINDINGS: LEFT: Internal jugular vein: Patent. Subclavian vein: Patent. Axillary vein: A small amount of thrombus is present associated with the PICC line . Brachial vein: Nonocclusive thrombus is present associated with the PICC line. Basilic vein: Patent. Cephalic vein: Patent. Radial vein: Patent. Ulnar vein: Patent. IMPRESSION: Small amount of thrombus associated with the patients left upper extremity PICC line at the level of the basilic vein and axillary veins. RPTAT: AADD .Vinod Drake MD, MD Date Time Electronically viewed and signed by .Vinod Drake MD, on 09/08/2016 10:31 .B/
--- NOTE | 2016-09-08 14:17 | CONS ---
Date/Time of Note Date/Time of Note DATE: 09/08/16 TIME: 14:15 Assessment/Plan Assessment/Plan Chief Complaint/Hosp Course SUBJECTIVE: no events, alert, sitting in a chair, no fevers ANTIMICROBIALS: 1. Sustiva. 2. Truvada. PHYSICAL EXAMINATION: GENERAL: This is a cachectic, ill-appearing, middle-aged woman who is awake, lying comfortably in bed. HEENT: Head atraumatic, normocephalic. Sclerae anicteric. Buccal mucosa dry. NECK: Supple, trachea midline. CHEST: Rise symmetrical. Breath sounds diminished to bases. HEART: S1, S2. ABDOMEN: Soft. Bowel tones present. EXTREMITIES: With bilateral hand edema SKIN: Severe anasarca. ASSESSMENT: 1. Severe decompensated state 2. HIV==> CD4 count 392. 3. Anemia, s/p GIB===> EGD done 4. Pleural effusions 5. 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 6. Cachexia with severe protein calorie malnutrition 7. Hx of Inocencia esophagitis. 8. Hepatitis C virus. 9. History of substance abuse. PLAN: Remains unchanged, continue present care, f/u psych rec-s DW staff Problems: Consultation Date/Type/Reason Admit Date/Time Sep 04, 2016 at 13:43 Type of Consultation: ID Exam/Review of Systems Vital Signs Vitals Vital Signs Date Time Temp Pulse Resp B/P Pulse Ox O2 Delivery O2 Flow Rate FiO2 09/08/16 08:34 98.5 109 20 117/83 96 Room Air Intake and Output 09/07/16 09/07/16 09/08/16 15:00 23:00 07:00 Intake Total 990 ml 340 ml Balance 990 ml 340 ml Results Result Diagram: 09/08/16 0450 09/08/16 0450 Results 24 hrs Laboratory Tests Test 09/08/16 04:50 Albumin 1.6 L Anion Gap 9 Basophils # 0.0 Basophils % 0.4 Blood Urea Nitrogen 12 Calcium Level 6.8 L Carbon Dioxide Level 27 Chloride Level 105 Creatinine 0.45 Eosinophils # 0.1 Eosinophils % 1.1 Glucose Level 95 Hematocrit 25.7 L Hemoglobin 8.5 L Lymphocytes # 0.7 L Lymphocytes % 16.1 Magnesium Level 1.5 L Mean Corpuscular Hemoglobin 30.4 Mean Corpuscular Hemoglobin Concent 33.1 Mean Corpuscular Volume 91.8 Mean Platelet Volume 8.9 Monocytes # 0.3 Monocytes % 7.1 Neutrophils # 3.3 Neutrophils % 72.9 Nucleated Red Blood Cells # 0.0 Nucleated Red Blood Cells % 0.0 Phosphorus Level 2.1 L Platelet Count 168 Potassium Level 3.1 L Red Blood Count 2.80 L Red Cell Distribution Width 16.9 H Sodium Level 138 White Blood Count 4.5 #L Medications Medications Current Medications Ondansetron HCl (Zofran Inj) 4 mg Q6H PRN IV NAUSEA AND/OR VOMITING Last administered on 09/05/16 08:07; Admin Dose 4 MG; Start 09/04/16 at 18:30 Acetaminophen (Tylenol Tab) 650 mg Q6H PRN PO PAIN LEVEL 1-3 OR FEVER; Start at 18:30 Acetaminophen/ Hydrocodone Bitart ([place] (5/325)) 1 tab Q6H PRN PO MODERATE PAIN LEVEL 4-6; Start 09/04/16 at 18:30 Morphine Sulfate (morphine) 2 mg Q4H PRN IV SEVERE PAIN LEVEL 7-10 Last administered on 09/08/16 06:44; Admin Dose 2 MG; Start 09/04/16 at 18:30 Zolpidem Tartrate (Ambien) 5 mg QHS PRN PO SLEEP; Start 09/04/16 at 18:30 Atorvastatin Calcium (Lipitor) 40 mg QHS PO Last administered on 09/07/16 20: 25; Admin Dose 40 MG; Start 09/04/16 at 22:00 Efavirenz (Sustiva) 600 mg QHS PO Last administered on 09/07/16 20:25; Admin Dose 600 MG; Start 09/04/16 at 22:00 Emtricitabine/ Tenofovir (Truvada) 1 tab DAILY PO Last administered on 08:29; Admin Dose 1 TAB; Start 09/05/16 at 09:00 Pantoprazole (Protonix Tab) 40 mg BID@,18 PO Last administered on 09/08/16 05:02; Admin Dose 40 MG; Start 09/05/16 at 06:00 Sucralfate (Carafate) 1 gm QID PO Last administered on 09/08/16 14:07; Admin Dose 1 GM; Start 3/16/17 at 22:00 Valganciclovir (Valcyte) 450 mg Q12 PO Last administered on 09/08/16 08:30; Admin Dose 450 MG; Start 09/04/16 at 22:00 Mesalamine (Delzicol Dr) 400 mg TID PO Last administered on 09/08/16 14:07; Admin Dose 400 MG; Start 09/04/16 at 22:00 Collagenase (Santyl) 1 applic DAILY TOP Last administered on 09/08/16 08:31; Admin Dose 1 APPLIC; Start 09/05/16 at 09:00 Lorazepam (Ativan) 0.5 mg Q6H PRN PO ANXIETY Last administered on 09/08/16 08: 36; Admin Dose 0.5 MG; Start 09/06/16 at 14:00 Escitalopram Oxalate (Lexapro) 2.5 mg DAILY PO Last administered on 09/08/16 08:29; Admin Dose 2.5 MG; Start 09/07/16 at 18:00 AGUILA BURGOS NP Sep 08, 2016 14:17
--- NOTE | 2016-09-08 14:43 | PN ---
Date/Time of Note Date/Time of Note DATE: 09/08/16 TIME: 14:39 Assessment/Plan VTE Prophylaxis VTE Prophylaxis Intervention: SCD's Lines/Catheters IV Catheter Type (from Nrsg): PICC Line Central line still needed: No Urinary Cath still in place: No Assessment/Plan Assessment/Plan 1. Generalized weakness, due to HIV disease, malnutrition, PT 2. Human immunodeficiency virus disease, follow up with ID 3. Multiple chronic wounds with stage IV sacral decubitus, wound care 4. Anemia: chronic, stable 5. Severe protein calorie malnutrition. encourage oral intake 6. Hepatitis C 7. Recent GI bleeding, on protonix 8. LUE DVT from PICC line, remove PICC line, not a candidate for anticoagulant due to recent recurrent GI bleeding 9. DVT prophylaxis: SCD Subjective 24 Hr Interval Summary Free Text/Dictation very pleasant. no distress. states stronger, good appetite. asks for medication for heartburn and sleep Exam/Review of Systems Vital Signs Vitals Vital Signs Date Time Temp Pulse Resp B/P Pulse Ox O2 Delivery O2 Flow Rate FiO2 09/08/16 08:34 98.5 109 20 117/83 96 Room Air Intake and Output 09/07/16 09/07/16 09/08/16 15:00 23:00 07:00 Intake Total 990 ml 340 ml Balance 990 ml 340 ml Exam Constitutional: alert, frail, oriented, well developed Head: atraumatic, normocephalic Eyes: EOMI, PERRL, nl conjunctiva, nl lids ENMT: nl external ears & nose, nl lips & teeth, nl nasal mucosa & septum Neck: non-tender, supple Respiratory: clear to auscultation, normal air movement, No congested cough, No crackles/rales, No diminished breath sounds, No intercostal retraction, No labored breathing, No other, No respirations, No tactile fremitus, No wheezing Cardiovascular: nl pulses, regular rate and rhythm, No S3, No S4, No bruits, No diastolic murmur, No edema, No gallop, No irregular rhythm, No jugular venous distention (JVD), No murmurs/extra sounds, No other, No rub, No systolic murmur Gastrointestinal: nl liver, spleen, non-tender, soft, No ascites, No bowel sounds, No distended, No firm, No hepatomegaly, No mass , No other, No rebound or guarding, No splenomegaly, No surgical scars, No tender Musculoskeletal: nl extremities to inspection Extremities: normal pulses, No calf tenderness, No clubbing, No cyanosis, No edema, No other, No palpable cord, No pitting pedal edema, No tenderness Neurological: JAVA SDET II-XII intact, nl mental status, nl speech, nl strength Skin: nl turgor Lymph: nl lymph nodes Results Result Diagram: 09/08/1644909/08/16449 Results 24 hrs Laboratory Tests Test 09/08/16 04:50 Albumin 1.6 L Anion Gap 9 Basophils # 0.0 Basophils % 0.4 Blood Urea Nitrogen 12 Calcium Level 6.8 L Carbon Dioxide Level 27 Chloride Level 105 Creatinine 0.45 Eosinophils # 0.1 Eosinophils % 1.1 Glucose Level 95 Hematocrit 25.7 L Hemoglobin 8.5 L Lymphocytes # 0.7 L Lymphocytes % 16.1 Magnesium Level 1.5 L Mean Corpuscular Hemoglobin 30.4 Mean Corpuscular Hemoglobin Concent 33.1 Mean Corpuscular Volume 91.8 Mean Platelet Volume 8.9 Monocytes # 0.3 Monocytes % 7.1 Neutrophils # 3.3 Neutrophils % 72.9 Nucleated Red Blood Cells # 0.0 Nucleated Red Blood Cells % 0.0 Phosphorus Level 2.1 L Platelet Count 168 Potassium Level 3.1 L Red Blood Count 2.80 L Red Cell Distribution Width 16.9 H Sodium Level 138 White Blood Count 4.5 #L Medications Medications Current Medications Ondansetron HCl (Zofran Inj) 4 mg Q6H PRN IV NAUSEA AND/OR VOMITING Last administered on 09/05/16 08:07; Admin Dose 4 MG; Start 09/04/16 at 18:30 Acetaminophen (Tylenol Tab) 650 mg Q6H PRN PO PAIN LEVEL 1-3 OR FEVER; Start at 18:30 Acetaminophen/ Hydrocodone Bitart ([place] (5/325)) 1 tab Q6H PRN PO MODERATE PAIN LEVEL 4-6; Start 09/04/16 at 18:30 Morphine Sulfate (morphine) 2 mg Q4H PRN IV SEVERE PAIN LEVEL 7-10 Last administered on 09/08/16 14:13; Admin Dose 2 MG; Start 09/04/16 at 18:30 Zolpidem Tartrate (Ambien) 5 mg QHS PRN PO SLEEP; Start 09/04/16 at 18:30 Atorvastatin Calcium (Lipitor) 40 mg QHS PO Last administered on 09/07/16 20: 25; Admin Dose 40 MG; Start 09/04/16 at 22:00 Efavirenz (Sustiva) 600 mg QHS PO Last administered on 09/07/16 20:25; Admin Dose 600 MG; Start 09/04/16 at 22:00 Emtricitabine/ Tenofovir (Truvada) 1 tab DAILY PO Last administered on 08:29; Admin Dose 1 TAB; Start 09/05/16 at 09:00 Pantoprazole (Protonix Tab) 40 mg BID@18 PO Last administered on 09/08/16 05:02; Admin Dose 40 MG; Start 09/05/16 at 06:00 Sucralfate (Carafate) 1 gm QID PO Last administered on 09/08/16 14:07; Admin Dose 1 GM; Start 09/04/16 at 22:00 Valganciclovir (Valcyte) 450 mg Q12 PO Last administered on 09/08/16 08:30; Admin Dose 450 MG; Start 09/04/16 at 22:00 Mesalamine (Delzicol Dr) 400 mg TID PO Last administered on 09/08/16 14:07; Admin Dose 400 MG; Start 09/04/16 at 22:00 Collagenase (Santyl) 1 applic DAILY TOP Last administered on 09/08/16 08:31; Admin Dose 1 APPLIC; Start 09/05/16 at 09:00 Lorazepam (Ativan) 0.5 mg Q6H PRN PO ANXIETY Last administered on 09/08/16 08: 36; Admin Dose 0.5 MG; Start 09/06/16 at 14:00 Escitalopram Oxalate (Lexapro) 2.5 mg DAILY PO Last administered on 09/08/16 08:29; Admin Dose 2.5 MG; Start 09/07/16 at 18:00 AYSHA VILLAREAL MD Sep 08, 2016 14:43
--- NOTE | 2016-09-08 18:15 | PSY ---
Date/Time of Note Date/Time of Note DATE: 09/08/16 TIME: 17:46 Psychiatric Subjective Eval Consent Pt consented to telemedicine: Yes Subjective Evaluation Patient location: inpatient Chief Complaint: depression History of present illness Pt with hx of HIV, hep C, ulcers. Pt with generalized weakness. Pt reported she felt depressed due to her medical issues. Pt reported she doesn't feel suicidal and doesn't have any intent or plan. Pt has low energy/concentration. Pt reports sleep being variable. Pt has fair appetite. Pt reported feeling hopeless yesterday d/t her medical issues. Pt denies any current SI/intent/ plan. Pt denies any HI/AH/VH. Pt denies any hypomanic or manic sx. Pt believes in God. Pt reported trying lexapro before and it doesn't work for her. Pt's father was in the room and he didn't voice any acute safety concerns. Past psychiatric history Pt reported being hospitalized at age 24 in a psychiatric hospital in [facility] for OD d/t family stressors. Pt denies any other psychiatric hospitalizations. Pt denies any other suicide attempts. Pt reported trying lexapro which didn't work for her, celexa, zoloft, prozac and didn't find them helpful. Pt hasn't been on remeron. Hospitalization: yes Family History Maternal grandparents killed themselves after the war in [facility]. Pt denies any alcohol or drug abuse. Medical history Problems Medical Problems: (1) Acute lower GI bleeding Status: Acute (2) Acute weakness Status: Acute (3) Altered mental status, unspecified Status: Acute (4) Anemia Status: Acute (5) Anxiety Status: Acute (6) Bilateral pleural effusion Status: Acute (7) Cachexia Status: Acute (8) Inocencia esophagitis Status: Chronic (9) Chronic active hepatitis C Status: Chronic (10) Cirrhosis of liver Status: Chronic (11) Deep venous thrombosis of right upper extremity Status: Acute (12) Dyspnea Status: Acute (13) Generalized weakness Status: Acute (14) Hemorrhagic shock Status: Acute (15) HIV disease Status: Chronic (16) Hypokalemia Status: Acute (17) Polydrug abuse, episodic Status: Chronic (18) Protein calorie malnutrition Status: Chronic (19) Respiratory failure Status: Acute (20) Severe anemia Status: Acute (21) Sinus tachycardia Status: Acute Allergies: Coded Allergies: hydrocortisone (Verified Allergy, Unknown, 08/09/16) ibuprofen (Verified Allergy, Unknown, 08/09/16) Substance Abuse Substance abuse history: Yes (has tried cocaine) Prior substance abuse treatmen: No Social History Marital status: single Level of education: 3 years of college in [employer] Psychiatric Objective Eval Physical Examination: Sleep: Insomnia Appetite: Adequate Energy: Decreased Interest: Adequate Mental Status Examination: Appearance: Groomed Eye Contact: Good Psychomotor Activity: Normal Behavior: Friendly Speech: Clear AFFECT: Appropriate Mood: Depressed Though Process: Linear Thought Content: Normal Suicidal: No Homicidal: No Cognition: Alert Insight: Intact Judgement: Intact Attention Span: Intact Laboratory Results Laboratory Tests Test 09/08/16 04:50 Albumin 1.6g/dl Anion Gap 9 Basophils # 0.010^3/ul Basophils % 0.4% Blood Urea Nitrogen 12mg/dl Calcium Level 6.8mg/dl Carbon Dioxide Level 27mmol/L Chloride Level 105mmol/L Creatinine 0.45mg/dl Eosinophils # 0.110^3/ul Eosinophils % 1.1% Glucose Level 95mg/dl Hematocrit 25.7% Hemoglobin 8.5g/dl Lymphocytes # 0.710^3/ul Lymphocytes % 16.1% Magnesium Level 1.5mg/dl Mean Corpuscular Hemoglobin 30.4pg Mean Corpuscular Hemoglobin Concent 33.1g/dl Mean Corpuscular Volume 91.8fl Mean Platelet Volume 8.9fl Monocytes # 0.310^3/ul Monocytes % 7.1% Neutrophils # 3.310^3/ul Neutrophils % 72.9% Nucleated Red Blood Cells # 0.010^3/ul Nucleated Red Blood Cells % 0.0/100WBC Phosphorus Level 2.1mg/dl Platelet Count 98897^3/UL Potassium Level 3.1mmol/L Red Blood Count 2.8010^6/ul Red Cell Distribution Width 16.9% Sodium Level 138mmol/L White Blood Count 4.510^3/ul Assessment and Plan Assessment/Diagnosis [place] I: Depressive d/o, unspecified Recommendation/Plan Medication Management Pt with multiple medical problems. Pt denies any SI/intent/plan. Pt denies any HI/AH/VH. Pt reports feeling depressed and stated lexapro hasn't worked for her. Recommend discontinuing lexapro and starting remeron 7.5mg qhs and this can help with her mood, appetite and sleep.. JEN DOMINGUEZ Sep 08, 2016 17:56
[2016-09-08] MEDS: HYDROmorphONE 2 MG TAB PO PRN (18:59)
[2016-09-08 19:51] VITALS: BP 113/71; RESP 16
[2016-09-08] MEDS: ACETAMINOPHEN 325 MG TAB PO PRN (21:33)
[2016-09-08] MEDS: ATORVASTATIN 40 MG TAB PO SCH (21:33)
[2016-09-08] MEDS: EFAVIRENZ 600 MG TAB PO SCH (21:34)
[2016-09-08] MEDS: ZOLPIDEM 5 MG TAB PO PRN (22:57)
[2016-09-09] MEDS: HYDROmorphONE 2 MG TAB PO PRN ×3 (00:46→16:56)
[2016-09-09] MEDS: AL HYDROX/MG HYDROX/SIMETH 30 ML CUP PO PRN ×2 (00:49→06:45)
[2016-09-09] MEDS: LORAZEPAM 0.5 MG TAB PO PRN (02:16)
[2016-09-09] MEDS: ACETAMINOPHEN 325 MG TAB PO PRN (02:21)
[2016-09-09] MEDS: PANTOPRAZOLE (EC) 40 MG TAB PO SCH ×2 (06:45→18:36)
[2016-09-09] MEDS: MESALAMINE (EC) 400 MG CAP PO SCH ×3 (08:56→21:32)
[2016-09-09] MEDS: VALGANCICLOVIR 450 MG TAB PO SCH ×2 (08:56→21:32)
[2016-09-09] MEDS: SUCRALFATE 1 GM TAB PO SCH ×4 (09:00→21:32)
[2016-09-09 09:33] LABS: ADD SCAN DIFF NO
[2016-09-09 09:35] LABS: EOSINOPHILS # 0.1 10^3/ul (0.0-0.5); EOSINOPHILS % 1.5 % (0.0-7.0); HEMATOCRIT 24.5 % (37.0-47.0); HEMOGLOBIN 8.1 g/dl (12.0-16.0); LYMPHOCYTES # 0.8 10^3/ul (0.8-2.9); LYMPHOCYTES % 19.8 % (15.0-51.0); MEAN CORPUSCULAR HEMOGLOBIN 30.2 pg (29.0-33.0); MEAN CORPUSCULAR HGB CONC 33.1 g/dl (32.0-37.0); MEAN CORPUSCULAR VOLUME 91.4 fl (82.0-101.0); MEAN PLATELET VOLUME 8.6 fl (7.4-10.4); MONOCYTE # 0.3 10^3/ul (0.3-0.9); MONOCYTES % 6.4 % (0.0-11.0); NEUTROPHIL # 2.6 10^3/ul (1.6-7.5); NEUTROPHILS % 66.7 % (39.0-77.0); PLATELET COUNT 232 10^3/UL (140-415); RED BLOOD COUNT 2.68 10^6/ul (4.20-5.40); RED CELL DISTRIBUTION WIDTH 16.9 % (11.5-14.5); WHITE BLOOD COUNT 3.9 10^3/ul (4.8-10.8)
[2016-09-09 09:50] LABS: ALBUMIN 1.6 g/dl (3.3-4.9)
[2016-09-09 09:52] LABS: CREATININE 0.37 mg/dl (0.44-1.00)
[2016-09-09 09:53] LABS: PHOSPHORUS 1.9 mg/dl (2.5-4.9)
[2016-09-09 09:54] LABS: CALCIUM 6.9 mg/dl (8.4-10.2)
[2016-09-09] MEDS: EMTRICITABINE/TENOFOVIR TAB PO SCH (10:40)
[2016-09-09] MEDS: COLLAGENASE 30 GM TUBE TOP SCH (10:41)
[2016-09-09 10:43] VITALS: BP 101/69; RESP 19
[2016-09-09] MEDS ORDERED: POTASSIUM CHLORIDE (SR) 20 MEQ TAB PO STA (14:16)
--- NOTE | 2016-09-09 14:16 | PN ---
Date/Time of Note Date/Time of Note DATE: 09/09/16 TIME: 14:13 Assessment/Plan VTE Prophylaxis VTE Prophylaxis Intervention: SCD's Lines/Catheters IV Catheter Type (from Nrsg): no iv access Urinary Cath still in place: No Assessment/Plan Assessment/Plan 1. Generalized weakness, due to HIV disease, malnutrition, PT 2. Human immunodeficiency virus disease, follow up with ID 3. Multiple chronic wounds with stage IV sacral decubitus, wound care 4. Anemia: chronic, stable 5. Severe protein calorie malnutrition. encourage oral intake 6. Hepatitis C 7. Recent GI bleeding, on protonix 8. LUE DVT from PICC line, remove PICC line, not a candidate for anticoagulant due to recent recurrent GI bleeding 9. DVT prophylaxis: SCD 10. Depression, stable, follow up with psych Subjective 24 Hr Interval Summary Free Text/Dictation sits up, stronger, better intake Exam/Review of Systems Vital Signs Vitals Vital Signs Date Time Temp Pulse Resp B/P Pulse Ox O2 Delivery O2 Flow Rate FiO2 09/09/16 10:43 98.2 101 19 101/69 98 09/08/16 08:34 Room Air Intake and Output 09/08/16 09/08/16 09/09/16 15:00 23:00 07:00 Intake Total 880 ml 720 ml Balance 880 ml 720 ml Exam Constitutional: alert, oriented, well developed Psych: no complaints Head: atraumatic, normocephalic Eyes: EOMI, PERRL, nl conjunctiva, nl lids, nl sclera ENMT: nl external ears & nose, nl lips & teeth, nl nasal mucosa & septum Neck: non-tender, supple Respiratory: clear to auscultation, normal air movement, No congested cough, No crackles/rales, No diminished breath sounds, No intercostal retraction, No labored breathing, No other, No respirations, No tactile fremitus, No wheezing Cardiovascular: nl pulses, regular rate and rhythm, No S3, No S4, No bruits, No diastolic murmur, No edema, No gallop, No irregular rhythm, No jugular venous distention (JVD), No murmurs/extra sounds, No other, No rub, No systolic murmur Gastrointestinal: nl liver, spleen, non-tender, soft, No ascites, No bowel sounds, No distended, No firm, No hepatomegaly, No mass , No other, No rebound or guarding, No splenomegaly, No surgical scars, No tender Musculoskeletal: nl extremities to inspection Extremities: normal pulses, No calf tenderness, No clubbing, No cyanosis, No edema, No other, No palpable cord, No pitting pedal edema, No tenderness Neurological: TRANSPORT DRIVER II-XII intact, nl mental status, nl speech, nl strength Skin: nl turgor Lymph: nl lymph nodes Results Result Diagram: 09/09/16 0840 09/09/16 0840 Results 24 hrs Laboratory Tests Test 09/09/16 08:40 Albumin 1.6 L Anion Gap 7 L Basophils # 0.0 Basophils % 1.0 Blood Urea Nitrogen 13 Calcium Level 6.9 L Carbon Dioxide Level 28 Chloride Level 105 Creatinine 0.37 L Eosinophils # 0.1 Eosinophils % 1.5 Glucose Level 83 Hematocrit 24.5 L Hemoglobin 8.1 L Lymphocytes # 0.8 Lymphocytes % 19.8 Mean Corpuscular Hemoglobin 30.2 Mean Corpuscular Hemoglobin Concent 33.1 Mean Corpuscular Volume 91.4 Mean Platelet Volume 8.6 Monocytes # 0.3 Monocytes % 6.4 Neutrophils # 2.6 Neutrophils % 66.7 Nucleated Red Blood Cells # 0.0 Nucleated Red Blood Cells % 0.0 Phosphorus Level 1.9 L Platelet Count 232 # Potassium Level 3.0 L Red Blood Count 2.68 L Red Cell Distribution Width 16.9 H Sodium Level 137 White Blood Count 3.9 L Medications Medications Current Medications Ondansetron HCl (Zofran Inj) 4 mg Q6H PRN IV NAUSEA AND/OR VOMITING Last administered on 09/05/16 08:07; Admin Dose 4 MG; Start 09/04/16 at 18:30 Acetaminophen (Tylenol Tab) 650 mg Q6H PRN PO PAIN LEVEL 1-3 OR FEVER Last administered on 09/09/16 02:21; Admin Dose 650 MG; Start 09/04/16 at 18:30 Acetaminophen/ Hydrocodone Bitart ([place] (5/325)) 1 tab Q6H PRN PO MODERATE PAIN LEVEL 4-6; Start 09/04/16 at 18:30 Zolpidem Tartrate (Ambien) 5 mg QHS PRN PO SLEEP Last administered on 22:57; Admin Dose 5 MG; Start 09/04/16 at 18:30 Atorvastatin Calcium (Lipitor) 40 mg QHS PO Last administered on 09/08/16 21: 33; Admin Dose 40 MG; Start 09/04/16 at 22:00 Efavirenz (Sustiva) 600 mg QHS PO Last administered on 09/08/16 21:34; Admin Dose 600 MG; Start 09/04/16 at 22:00 Emtricitabine/ Tenofovir (Truvada) 1 tab DAILY PO Last administered on 10:40; Admin Dose 1 TAB; Start 09/05/16 at 09:00 Pantoprazole (Protonix Tab) 40 mg BID@,18 PO Last administered on 09/09/16 06:45; Admin Dose 40 MG; Start 09/05/16 at 06:00 Sucralfate (Carafate) 1 gm QID PO Last administered on 09/09/16 13:43; Admin Dose 1 GM; Start 09/04/16 at 22:00 Valganciclovir (Valcyte) 450 mg Q12 PO Last administered on 09/09/16 08:56; Admin Dose 450 MG; Start 09/04/16 at 22:00 Mesalamine (Delzicol Dr) 400 mg TID PO Last administered on 09/09/16 13:43; Admin Dose 400 MG; Start 09/04/16 at 22:00 Collagenase (Santyl) 1 applic DAILY TOP Last administered on 09/09/16 10:41; Admin Dose 1 APPLIC; Start 09/05/16 at 09:00 Lorazepam (Ativan) 0.5 mg Q6H PRN PO ANXIETY Last administered on 09/09/16 02: 16; Admin Dose 0.5 MG; Start 09/06/16 at 14:00 Al Hydrox/Mg Hydrox/Simethicone (Mag-Al Plus) 30 ml Q4H PRN PO GASTROINTESTINAL UPSET Last administered on 09/09/16 00:49; Admin Dose 30 ML; Start 09/08/16 at 15:00 Hydromorphone HCl (Dilaudid) 2 mg Q4H PRN PO PAIN Last administered on 10:45; Admin Dose 2 MG; Start 09/08/16 at 17:30 Mirtazapine (Remeron) 7.5 mg HS PO ; Start 09/09/16 at 21:00 AYSHA VILLAREAL MD Sep 09, 2016 14:16
[2016-09-09] MEDS ORDERED: SOD PHOS MONO/DIBAS 250 MG TAB PO ONE (14:30)
--- NOTE | 2016-09-09 14:46 | CONS ---
Date/Time of Note Date/Time of Note DATE: 09/09/16 TIME: 14:45 Assessment/Plan Assessment/Plan Chief Complaint/Hosp Course SUBJECTIVE: no events, alert, sitting in a chair, no fevers ANTIMICROBIALS: 1. Sustiva. 2. Truvada. PHYSICAL EXAMINATION: GENERAL: This is a cachectic, ill-appearing, middle-aged woman who is awake, lying comfortably in bed. HEENT: Head atraumatic, normocephalic. Sclerae anicteric. Buccal mucosa dry. NECK: Supple, trachea midline. CHEST: Rise symmetrical. Breath sounds diminished to bases. HEART: S1, S2. ABDOMEN: Soft. Bowel tones present. EXTREMITIES: With bilateral hand edema SKIN: Severe anasarca. ASSESSMENT: 1. Severe decompensated state 2. HIV==> controlled, CD4 count 392. 3. Anemia, s/p GIB===> EGD done 4. Pleural effusions 5. 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 6. Cachexia with severe protein calorie malnutrition 7. Hx of Inocencia esophagitis. 8. Hepatitis C virus. 9. History of substance abuse. PLAN: Remains stable, continue present care, f/u psych rec-s [facility] staff Problems: Consultation Date/Type/Reason Admit Date/Time Sep 04, 2016 at 13:43 Type of Consultation: ID Exam/Review of Systems Vital Signs Vitals Vital Signs Date Time Temp Pulse Resp B/P Pulse Ox O2 Delivery O2 Flow Rate FiO2 09/09/16 10:43 98.2 101 19 101/69 98 09/08/16 08:34 Room Air Intake and Output 09/08/16 09/08/16 09/09/16 15:00 23:00 07:00 Intake Total 880 ml 720 ml Balance 880 ml 720 ml Results Result Diagram: 09/09/16 0840 09/09/16 0840 Results 24 hrs Laboratory Tests Test 09/09/16 08:40 Albumin 1.6 L Anion Gap 7 L Basophils # 0.0 Basophils % 1.0 Blood Urea Nitrogen 13 Calcium Level 6.9 L Carbon Dioxide Level 28 Chloride Level 105 Creatinine 0.37 L Eosinophils # 0.1 Eosinophils % 1.5 Glucose Level 83 Hematocrit 24.5 L Hemoglobin 8.1 L Lymphocytes # 0.8 Lymphocytes % 19.8 Mean Corpuscular Hemoglobin 30.2 Mean Corpuscular Hemoglobin Concent 33.1 Mean Corpuscular Volume 91.4 Mean Platelet Volume 8.6 Monocytes # 0.3 Monocytes % 6.4 Neutrophils # 2.6 Neutrophils % 66.7 Nucleated Red Blood Cells # 0.0 Nucleated Red Blood Cells % 0.0 Phosphorus Level 1.9 L Platelet Count 232 # Potassium Level 3.0 L Red Blood Count 2.68 L Red Cell Distribution Width 16.9 H Sodium Level 137 White Blood Count 3.9 L Medications Medications Current Medications Ondansetron HCl (Zofran Inj) 4 mg Q6H PRN IV NAUSEA AND/OR VOMITING Last administered on 09/05/16 08:07; Admin Dose 4 MG; Start 09/04/16 at 18:30 Acetaminophen (Tylenol Tab) 650 mg Q6H PRN PO PAIN LEVEL 1-3 OR FEVER Last administered on 09/09/16 02:21; Admin Dose 650 MG; Start 09/04/16 at 18:30 Acetaminophen/ Hydrocodone Bitart ([place] (5/325)) 1 tab Q6H PRN PO MODERATE PAIN LEVEL 4-6; Start 09/04/16 at 18:30 Zolpidem Tartrate (Ambien) 5 mg QHS PRN PO SLEEP Last administered on 22:57; Admin Dose 5 MG; Start 09/04/16 at 18:30 Atorvastatin Calcium (Lipitor) 40 mg QHS PO Last administered on 09/08/16 21: 33; Admin Dose 40 MG; Start 09/04/16 at 22:00 Efavirenz (Sustiva) 600 mg QHS PO Last administered on 09/08/16 21:34; Admin Dose 600 MG; Start 09/04/16 at 22:00 Emtricitabine/ Tenofovir (Truvada) 1 tab DAILY PO Last administered on 10:40; Admin Dose 1 TAB; Start 09/05/16 at 09:00 Pantoprazole (Protonix Tab) 40 mg BID@18 PO Last administered on 09/09/16 06:45; Admin Dose 40 MG; Start 09/05/16 at 06:00 Sucralfate (Carafate) 1 gm QID PO Last administered on 09/09/16 13:43; Admin Dose 1 GM; Start 09/04/16 at 22:00 Valganciclovir (Valcyte) 450 mg Q12 PO Last administered on 09/09/16 08:56; Admin Dose 450 MG; Start 09/04/16 at 22:00 Mesalamine (Delzicol Dr) 400 mg TID PO Last administered on 09/09/16 13:43; Admin Dose 400 MG; Start 09/04/16 at 22:00 Collagenase (Santyl) 1 applic DAILY TOP Last administered on 09/09/16 10:41; Admin Dose 1 APPLIC; Start 09/05/16 at 09:00 Lorazepam (Ativan) 0.5 mg Q6H PRN PO ANXIETY Last administered on 09/09/16 02: 16; Admin Dose 0.5 MG; Start 09/06/16 at 14:00 Al Hydrox/Mg Hydrox/Simethicone (Mag-Al Plus) 30 ml Q4H PRN PO GASTROINTESTINAL UPSET Last administered on 09/09/16 00:49; Admin Dose 30 ML; Start 09/08/16 at 15:00 Hydromorphone HCl (Dilaudid) 2 mg Q4H PRN PO PAIN Last administered on 10:45; Admin Dose 2 MG; Start 09/08/16 at 17:30 Mirtazapine (Remeron) 7.5 mg HS PO ; Start 09/09/16 at 21:00 AGUILA BURGOS NP Sep 09, 2016 14:46
[2016-09-09 19:35] VITALS: BP 103/67; PULSE 101
[2016-09-09] MEDS: ATORVASTATIN 40 MG TAB PO SCH (21:32)
[2016-09-09] MEDS: ZOLPIDEM 5 MG TAB PO PRN (21:32)
[2016-09-09] MEDS: EFAVIRENZ 600 MG TAB PO SCH (21:32)
[2016-09-09] MEDS: MIRTAZAPINE 15 MG TAB PO SCH (21:34)
[2016-09-10 05:40] LABS: ADD SCAN DIFF NO
[2016-09-10 05:48] LABS: BASOPHILS % 0.7 % (0.0-2.0); EOSINOPHILS # 0.1 10^3/ul (0.0-0.5); EOSINOPHILS % 1.5 % (0.0-7.0); HEMATOCRIT 25.2 % (37.0-47.0); HEMOGLOBIN 8.1 g/dl (12.0-16.0); LYMPHOCYTES % 24.9 % (15.0-51.0); MEAN CORPUSCULAR HEMOGLOBIN 29.9 pg (29.0-33.0); MEAN CORPUSCULAR HGB CONC 32.1 g/dl (32.0-37.0); MEAN PLATELET VOLUME 8.5 fl (7.4-10.4); MONOCYTE # 0.2 10^3/ul (0.3-0.9); MONOCYTES % 5.9 % (0.0-11.0); NEUTROPHIL # 2.6 10^3/ul (1.6-7.5); NEUTROPHILS % 64.5 % (39.0-77.0); PLATELET COUNT 234 10^3/UL (140-415); RED BLOOD COUNT 2.71 10^6/ul (4.20-5.40); RED CELL DISTRIBUTION WIDTH 17.3 % (11.5-14.5); WHITE BLOOD COUNT 4.1 10^3/ul (4.8-10.8)
[2016-09-10] MEDS: PANTOPRAZOLE (EC) 40 MG TAB PO SCH ×2 (05:48→18:09)
[2016-09-10] MEDS: HYDROmorphONE 2 MG TAB PO PRN ×5 (05:52→20:53)
[2016-09-10 06:20] LABS: ALBUMIN 1.6 g/dl (3.3-4.9); POTASSIUM 3.7 mmol/L (3.5-5.1)
[2016-09-10 06:23] LABS: CREATININE 0.33 mg/dl (0.44-1.00); PHOSPHORUS 2.6 mg/dl (2.5-4.9)
[2016-09-10 06:24] LABS: CALCIUM 7.2 mg/dl (8.4-10.2)
[2016-09-10] MEDS: VALGANCICLOVIR 450 MG TAB PO SCH ×2 (09:36→20:54)
[2016-09-10] MEDS: EMTRICITABINE/TENOFOVIR TAB PO SCH (09:36)
[2016-09-10] MEDS: SUCRALFATE 1 GM TAB PO SCH ×4 (09:36→20:53)
[2016-09-10] MEDS: MESALAMINE (EC) 400 MG CAP PO SCH ×3 (09:41→20:53)
[2016-09-10] MEDS: COLLAGENASE 30 GM TUBE TOP SCH (09:46)
[2016-09-10] MEDS ORDERED: MAGNESIUM CHLORIDE (SR) 64 MG TAB PO ONE (12:30)
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
--- NOTE | 2016-09-10 15:49 | PN ---
DATE: 09/10/2016 At the time of evaluation 1300. SUBJECTIVE DATA: The patient has a 1:[address] The patient denies any suicidal ideation. OBJECTIVE DATA: VITAL SIGNS: Temperature 99.0, pulse of 101, respiratory rate 19, blood pressure 102/67, oxygen saturation 90% on room air. GENERAL: This is an extremely malnourished female lying in bed in no apparent distress. HEENT: Head normocephalic and atraumatic. Eyes: Anicteric sclerae. Conjunctivae clear. ENT: Nasal septum is midline. Oral mucosa is moist. NECK: Supple. No JVD noticed. RESPIRATORY: Bilaterally clear to auscultation. No adventitious breath sounds. No use of accessory muscles of respiration. CARDIAC: Regular rate and rhythm. No murmurs. ABDOMEN: Soft, nontender, nondistended. Bowel sounds hypoactive in all 4 quadrants. GENITOURINARY: Deferred. EXTREMITIES: Pedal edema bilaterally. NEUROLOGIC: The patient is awake, alert and oriented. Cranial nerves are grossly intact. LABORATORY DATA AND DIAGNOSTIC DATA: WBC 1.1, hemoglobin 8.1, hematocrit 25.2, platelet count 234. Sodium 140, potassium 3.7, chloride 100, carbon dioxide 29 , anion gap 7, BUN 10, creatinine 0.62, glucose 77, calcium 7.2, phosphorus 2.6 , magnesium 1.6. ASSESSMENT AND PLAN 1. Deconditioning secondary to human immunodeficiency virus and malnutrition. Continue physical therapy. 2. Human immunodeficiency virus. Latest CD4 count 392. 3. Severe protein caloric malnutrition. Continue with dietary supplements. 4. Normocytic normochromic anemia. Monitor hemoglobin and hematocrit closely. 5. History of hepatitis C, stable. No active issues. 6. Hypocalcemia most probably from underlying hyperalbuminemia. Monitor. 7. History of gastrointestinal bleed with the latest esophagogastroduodenoscopy showing gastric ulcers. Continue Protonix. 8. Left upper extremity deep venous thrombosis from a peripherally inserted catheter line. Status post removal of peripherally inserted catheter line. Not a candidate for anticoagulation due to underlying anemia and recurrent gastrointestinal bleeding. 9. Depression with suicidal ideation. The patient was initially placed on 5150 hold. The patient's 5150 hold has been discontinued after reevaluation by psychiatry. The patient currently has a 1:[address] 10. Multiple chronic wounds with underlying stage IV sacral decubitus ulcer. Continue local wound care. 11. Opioid dependency. 12. Fluid, electrolytes and nutrition. Continue regular diet as tolerated. 13. History of bilateral pleural effusions. Stable. Continue to monitor. 14. Deep venous thrombosis prophylaxis with bilateral sequential compression devices. 15. Gastrointestinal prophylaxis, proton pump inhibitors. PLAN: Continue physical therapy. Await placement to [facility] facility. Case discussed with Dr. Hood. TK HOOD MD, AM/SHILPA Conf#: [id number] DID#: [id number] MTDD
[2016-09-10] MEDS: LORAZEPAM 0.5 MG TAB PO PRN (18:08)
[2016-09-10] MEDS: ATORVASTATIN 40 MG TAB PO SCH (20:53)
[2016-09-10] MEDS: MIRTAZAPINE 15 MG TAB PO SCH (20:54)
[2016-09-10] MEDS: EFAVIRENZ 600 MG TAB PO SCH (20:54)
[2016-09-10 21:31] VITALS: BP 109/76; RESP 20
[2016-09-11] MEDS: HYDROmorphONE 2 MG TAB PO PRN ×3 (01:40→09:52)
[2016-09-11] MEDS: AL HYDROX/MG HYDROX/SIMETH 30 ML CUP PO PRN (01:43)
[2016-09-11] MEDS: PANTOPRAZOLE (EC) 40 MG TAB PO SCH ×2 (05:42→17:02)
[2016-09-11 08:32] LABS: ADD SCAN DIFF NO
[2016-09-11 08:33] LABS: BASOPHILS % 0.8 % (0.0-2.0); EOSINOPHILS # 0.1 10^3/ul (0.0-0.5); EOSINOPHILS % 1.3 % (0.0-7.0); HEMATOCRIT 27.3 % (37.0-47.0); LYMPHOCYTES # 0.9 10^3/ul (0.8-2.9); MEAN CORPUSCULAR VOLUME 94.1 fl (82.0-101.0); MEAN PLATELET VOLUME 8.3 fl (7.4-10.4); MONOCYTE # 0.2 10^3/ul (0.3-0.9); MONOCYTES % 3.6 % (0.0-11.0); NEUTROPHIL # 3.5 10^3/ul (1.6-7.5); PLATELET COUNT 331 10^3/UL (140-415); RED CELL DISTRIBUTION WIDTH 17.4 % (11.5-14.5); WHITE BLOOD COUNT 4.7 10^3/ul (4.8-10.8)
[2016-09-11 08:35] VITALS: BP 108/71; RESP 18
[2016-09-11 08:55] LABS: POTASSIUM 3.9 mmol/L (3.5-5.1)
[2016-09-11 08:57] LABS: CREATININE 0.38 mg/dl (0.44-1.00)
[2016-09-11 08:58] LABS: CALCIUM 7.4 mg/dl (8.4-10.2)
[2016-09-11 09:19] LABS: MAGNESIUM 1.8 mg/dl (1.7-2.5); PHOSPHORUS 3.2 mg/dl (2.5-4.9)
[2016-09-11] MEDS: VALGANCICLOVIR 450 MG TAB PO SCH ×2 (09:47→20:29)
[2016-09-11] MEDS: SUCRALFATE 1 GM TAB PO SCH ×4 (09:47→20:29)
[2016-09-11] MEDS: MESALAMINE (EC) 400 MG CAP PO SCH ×3 (09:47→20:29)
[2016-09-11] MEDS: EMTRICITABINE/TENOFOVIR TAB PO SCH (09:47)
--- NOTE | 2016-09-11 11:49 | PN ---
Date/Time of Note Date/Time of Note DATE: 09/11/16 TIME: 11:49 Assessment/Plan VTE Prophylaxis VTE Prophylaxis Intervention: SCD's Lines/Catheters IV Catheter Type (from Nrs): NO IV ACCESS MD AWARE Urinary Cath still in place: No Assessment/Plan Chief Complaint/Hosp Course 1. Deconditioning secondary to human immunodeficiency virus and malnutrition. Continue physical therapy. 2. Human immunodeficiency virus. Latest CD4 count 392. Continue antiretroviral medications. 3. Severe protein caloric malnutrition. Continue with dietary supplements. 4. Normocytic normochromic anemia. Monitor hemoglobin and hematocrit closely. 5. History of hepatitis C, stable. No active issues. 6. Hypocalcemia. Most probably from underlying hyperalbuminemia. Monitor. 7. History of gastrointestinal bleed with the latest esophagogastroduodenoscopy showing a gastric ulcer. Continue Protonix. 8. Left upper extremity deep venous thrombosis from a peripherally inserted catheter line. Status post removal of peripherally inserted catheter line. Not a candidate for anticoagulation due to underlying anemia and recurrent gastrointestinal bleeding. 9. Depression with suicidal ideation. The patient was initially placed on 5150 hold. The patient's 5150 hold and 1:1 supervision has been discontinued after reevaluation by psychiatry. 10. Multiple chronic wounds with underlying stage IV sacral decubitus ulcer. Continue local wound care. 11. Opioid dependency. The verbalized that she was on methadone before. Will have our pain management team see the patient. 12. Fluid, electrolytes and nutrition. Continue regular diet as tolerated. 13. Bilateral pleural effusions. Stable. Continue to monitor. 14. Deep venous thrombosis prophylaxis with bilateral sequential compression devices. 15. Gastrointestinal prophylaxis, proton pump inhibitors. PLAN: Continue physical therapy. Await placement to custodial facility Vs evaluation by hospice. Case discussed with Dr. Swanson. Problems: Subjective 24 Hr Interval Summary Free Text/Dictation Asking for methadone. Pain in the entire body. Exam/Review of Systems Vital Signs Vitals Vital Signs Date Time Temp Pulse Resp B/P Pulse Ox O2 Delivery O2 Flow Rate FiO2 09/11/16 08:35 99.2 114 18 108/71 97 09/09/16 19:35 Room Air Intake and Output 09/10/16 09/10/16 09/11/16 15:00 23:00 07:00 Intake Total 620 ml 600 ml Balance 620 ml 600 ml Exam GENERAL: This is an extremely malnourished female lying in bed in no apparent distress. HEENT: Head normocephalic and atraumatic. Eyes: Anicteric sclerae. Conjunctivae clear. ENT: Nasal septum is midline. Oral mucosa is moist. NECK: Supple. No JVD noticed. RESPIRATORY: Bilaterally clear to auscultation. No adventitious breath sounds. No use of accessory muscles of respiration. CARDIAC: Regular rate and rhythm. No murmurs. ABDOMEN: Soft, nontender, nondistended. Bowel sounds hypoactive in all 4 quadrants. GENITOURINARY: Deferred. EXTREMITIES: Pedal edema bilaterally. NEUROLOGIC: The patient is awake, alert and oriented. Cranial nerves are grossly intact. Results Result Diagram: 09/11/16 0723 09/11/16 0723 Results 24 hrs Laboratory Tests Test 09/11/16 07:23 White Blood Count 4.7 L Red Blood Count 2.90 L Hemoglobin 9.0 L Hematocrit 27.3 L Mean Corpuscular Volume 94.1 Mean Corpuscular Hemoglobin 31.0 Mean Corpuscular Hemoglobin Concent 33.0 Red Cell Distribution Width 17.4 H Platelet Count 331 # Mean Platelet Volume 8.3 Neutrophils % 74.0 Lymphocytes % 19.0 Monocytes % 3.6 Eosinophils % 1.3 Basophils % 0.8 Nucleated Red Blood Cells % 0.0 Neutrophils # 3.5 Lymphocytes # 0.9 Monocytes # 0.2 L Eosinophils # 0.1 Basophils # 0.0 Nucleated Red Blood Cells # 0.0 Sodium Level 139 Potassium Level 3.9 Chloride Level 105 Carbon Dioxide Level 30 Anion Gap 8 Blood Urea Nitrogen 11 Creatinine 0.38 L Glucose Level 80 Calcium Level 7.4 L Phosphorus Level 3.2 Magnesium Level 1.8 Medications Medications Current Medications Ondansetron HCl (Zofran Inj) 4 mg Q6H PRN IV NAUSEA AND/OR VOMITING Last administered on 09/05/16 08:07; Admin Dose 4 MG; Start 09/04/16 at 18:30 Acetaminophen (Tylenol Tab) 650 mg Q6H PRN PO PAIN LEVEL 1-3 OR FEVER Last administered on 09/09/16 02:21; Admin Dose 650 MG; Start 09/04/16 at 18:30 Acetaminophen/ Hydrocodone Bitart ([place] (5/325)) 1 tab Q6H PRN PO MODERATE PAIN LEVEL 4-6; Start 09/04/16 at 18:30 Zolpidem Tartrate (Ambien) 5 mg QHS PRN PO SLEEP Last administered on 21:32; Admin Dose 5 MG; Start 09/04/16 at 18:30 Atorvastatin Calcium (Lipitor) 40 mg QHS PO Last administered on 09/10/16 20: 53; Admin Dose 40 MG; Start 09/04/16 at 22:00 Efavirenz (Sustiva) 600 mg QHS PO Last administered on 09/10/16 20:54; Admin Dose 600 MG; Start 09/04/16 at 22:00 Emtricitabine/ Tenofovir (Truvada) 1 tab DAILY PO Last administered on 09:47; Admin Dose 1 TAB; Start 09/05/16 at 09:00 Pantoprazole (Protonix Tab) 40 mg BID@06,18 PO Last administered on 09/11/16 05:42; Admin Dose 40 MG; Start 09/05/16 at 06:00 Sucralfate (Carafate) 1 gm QID PO Last administered on 09/11/16 09:47; Admin Dose 1 GM; Start 09/04/16 at 22:00 Valganciclovir (Valcyte) 450 mg Q12 PO Last administered on 09/11/16 09:47; Admin Dose 450 MG; Start 09/04/16 at 22:00 Mesalamine (Delzicol Dr) 400 mg TID PO Last administered on 09/11/16 09:47; Admin Dose 400 MG; Start 09/04/16 at 22:00 Collagenase (Santyl) 1 applic DAILY TOP Last administered on 09/10/16 09:46; Admin Dose 1 APPLIC; Start 09/05/16 at 09:00 Lorazepam (Ativan) 0.5 mg Q6H PRN PO ANXIETY Last administered on 09/10/16 18: 08; Admin Dose 0.5 MG; Start 09/06/16 at 14:00 Al Hydrox/Mg Hydrox/Simethicone (Mag-Al Plus) 30 ml Q4H PRN PO GASTROINTESTINAL UPSET Last administered on 09/11/16 01:43; Admin Dose 30 ML; Start 09/08/16 at 15:00 Hydromorphone HCl (Dilaudid) 2 mg Q4H PRN PO PAIN Last administered on 09:52; Admin Dose 2 MG; Start 09/08/16 at 17:30 Mirtazapine (Remeron) 7.5 mg HS PO Last administered on 09/10/16 20:54; Admin Dose 7.5 MG; Start 09/09/16 at 21:00 TK PERALES NP Sep 11, 2016 11:49 TK PERALES NP Sep 11, 2016 11:49
[2016-09-11] MEDS: LORAZEPAM 0.5 MG TAB PO PRN (13:50)
[2016-09-11] MEDS: COLLAGENASE 30 GM TUBE TOP SCH (14:50)
[2016-09-11] MEDS ORDERED: METHADONE 5 MG TAB PO SCH (16:00)
[2016-09-11] MEDS: [UNRECOGNIZED DRUG - REMARK] XX SCH (16:30)
[2016-09-11] MEDS: ATORVASTATIN 40 MG TAB PO SCH (20:29)
[2016-09-11] MEDS: MIRTAZAPINE 15 MG TAB PO SCH (20:29)
[2016-09-11] MEDS: EFAVIRENZ 600 MG TAB PO SCH (20:29)
[2016-09-11 21:50] VITALS: BP 141/86; RESP 19
[2016-09-12] MEDS: [UNRECOGNIZED DRUG - REMARK] XX SCH ×3 (00:30→16:30)
[2016-09-12] MEDS: LORAZEPAM 0.5 MG TAB PO PRN ×2 (05:06→20:23)
[2016-09-12] MEDS: PANTOPRAZOLE (EC) 40 MG TAB PO SCH ×2 (05:06→18:14)
[2016-09-12 08:40] VITALS: BP 121/85; RESP 20
[2016-09-12] MEDS: VALGANCICLOVIR 450 MG TAB PO SCH ×2 (09:22→20:22)
[2016-09-12] MEDS: MESALAMINE (EC) 400 MG CAP PO SCH ×3 (09:22→20:27)
[2016-09-12] MEDS: COLLAGENASE 30 GM TUBE TOP SCH (09:22)
[2016-09-12] MEDS: SUCRALFATE 1 GM TAB PO SCH ×4 (09:22→20:23)
[2016-09-12] MEDS: EMTRICITABINE/TENOFOVIR TAB PO SCH (09:24)
--- NOTE | 2016-09-12 10:25 | PN ---
Date/Time of Note Date/Time of Note DATE: 09/12/16 TIME: 10:23 Assessment/Plan VTE Prophylaxis VTE Prophylaxis Intervention: SCD's Lines/Catheters IV Catheter Type (from [facility]): NO IV ACCESS MD AWARE Urinary Cath still in place: No Assessment/Plan Chief Complaint/Hosp Course 1. Deconditioning secondary to human immunodeficiency virus and malnutrition. Continue physical therapy. 2. Human immunodeficiency virus. Latest CD4 count 392. Continue antiretroviral medications. 3. Severe protein caloric malnutrition. Continue with dietary supplements. 4. Normocytic normochromic anemia. Monitor hemoglobin and hematocrit closely. 5. History of hepatitis C, stable. No active issues. 6. Hypocalcemia. Most probably from underlying hyperalbuminemia. Monitor. 7. History of gastrointestinal bleed with the latest esophagogastroduodenoscopy showing a gastric ulcer. Continue Protonix. 8. Left upper extremity deep venous thrombosis from a peripherally inserted catheter line. Status post removal of peripherally inserted catheter line. Not a candidate for anticoagulation due to underlying anemia and recurrent gastrointestinal bleeding. 9. Depression with suicidal ideation. The patient was initially placed on 5150 hold. The patient's 5150 hold and 1:1 supervision has been discontinued after reevaluation by psychiatry. 10. Multiple chronic wounds with underlying stage IV sacral decubitus ulcer. Continue local wound care. 11. Opioid dependency. The verbalized that she was on methadone before. Pain management team following. 12. Fluid, electrolytes and nutrition. Continue regular diet as tolerated. 13. Bilateral pleural effusions. Stable. Continue to monitor. 14. Deep venous thrombosis prophylaxis with bilateral sequential compression devices. 15. Gastrointestinal prophylaxis, proton pump inhibitors. PLAN: Continue physical therapy. [facility] by hospice. Case discussed with Dr. Swanson. Problems: Subjective 24 Hr Interval Summary Free Text/Dictation No changes in status. Exam/Review of Systems Vital Signs Vitals Vital Signs Date Time Temp Pulse Resp B/P Pulse Ox O2 Delivery O2 Flow Rate FiO2 09/12/16 08:40 98.7 108 20 121/85 96 09/09/16 19:35 Room Air Intake and Output 09/11/16 09/11/16 09/12/16 14:59 22:59 06:59 Intake Total 720 ml 360 ml Balance 720 ml 360 ml Exam GENERAL: This is an extremely malnourished female lying in bed in no apparent distress. HEENT: Head normocephalic and atraumatic. Eyes: Anicteric sclerae. Conjunctivae clear. ENT: Nasal septum is midline. Oral mucosa is moist. NECK: Supple. No JVD noticed. RESPIRATORY: Bilaterally clear to auscultation. No adventitious breath sounds. No use of accessory muscles of respiration. CARDIAC: Regular rate and rhythm. No murmurs. ABDOMEN: Soft, nontender, nondistended. Bowel sounds hypoactive in all 4 quadrants. GENITOURINARY: Deferred. EXTREMITIES: Pedal edema bilaterally. NEUROLOGIC: The patient is awake, alert and oriented. Cranial nerves are grossly intact. Results Result Diagram: 09/11/1672209/11/16722 Medications Medications Current Medications Ondansetron HCl (Zofran Inj) 4 mg Q6H PRN IV NAUSEA AND/OR VOMITING Last administered on 09/05/16 08:07; Admin Dose 4 MG; Start 09/04/16 at 18:30 Acetaminophen (Tylenol Tab) 650 mg Q6H PRN PO PAIN LEVEL 1-3 OR FEVER Last administered on 09/09/16 02:21; Admin Dose 650 MG; Start 09/04/16 at 18:30 Atorvastatin Calcium (Lipitor) 40 mg QHS PO Last administered on 09/11/16 20: 29; Admin Dose 40 MG; Start 09/04/16 at 22:00 Efavirenz (Sustiva) 600 mg QHS PO Last administered on 09/11/16 20:29; Admin Dose 600 MG; Start 09/04/16 at 22:00 Emtricitabine/ Tenofovir (Truvada) 1 tab DAILY PO Last administered on 09:24; Admin Dose 1 TAB; Start 09/05/16 at 09:00 Pantoprazole (Protonix Tab) 40 mg BID@06,18 PO Last administered on 09/12/16 05:06; Admin Dose 40 MG; Start 09/05/16 at 06:00 Sucralfate (Carafate) 1 gm QID PO Last administered on 09/12/16 09:22; Admin Dose 1 GM; Start 09/04/16 at 22:00 Valganciclovir (Valcyte) 450 mg Q12 PO Last administered on 09/12/16 09:22; Admin Dose 450 MG; Start 09/04/16 at 22:00 Mesalamine (Delzicol Dr) 400 mg TID PO Last administered on 09/12/16 09:22; Admin Dose 400 MG; Start 09/04/16 at 22:00 Collagenase (Santyl) 1 applic DAILY TOP Last administered on 09/12/16 09:22; Admin Dose 1 APPLIC; Start 09/05/16 at 09:00 Lorazepam (Ativan) 0.5 mg Q6H PRN PO ANXIETY Last administered on 09/12/16 05: 06; Admin Dose 0.5 MG; Start 09/06/16 at 14:00 Al Hydrox/Mg Hydrox/Simethicone (Mag-Al Plus) 30 ml Q4H PRN PO GASTROINTESTINAL UPSET Last administered on 09/11/16 01:43; Admin Dose 30 ML; Start 09/08/16 at 15:00 Mirtazapine (Remeron) 7.5 mg HS PO Last administered on 09/11/16 20:29; Admin Dose 7.5 MG; Start 09/09/16 at 21:00 Miscellaneous Information (*Order Clarification Bulletin) MEDICATION REQUIRES CLARIFICATION: Q8H XX ; Start 09/11/16 at 16:30 TK PERALES NP Sep 12, 2016 10:25
--- NOTE | 2016-09-12 17:45 | CONS ---
DATE OF ADMISSION: 09/04/2016 DATE OF CONSULTATION: 09/12/2016 TYPE OF CONSULTATION: Pain management. I have seen and examined the patient on 09/11/2016. This is a postdated noted. HISTORY OF PRESENT ILLNESS: This is a 41-year-old female who has HIV infection who according to med [facility] records has been noncompliant in the past taking her HIV antiretroviral drugs; however, patient is a poor historian and all the information is taken from her medical records so I am not certain t hat she has been noncompliant with medications. According to her, she has been taking them but she cannot name her medications. She also has a history of hepatitis C. She states that she was infect ed with HIV and hep C virus through intravenous drug use with heroin. She denies any other recreati onal illicit drug use. She is a nonsmoker, nondrinker. She frankly does not complain of neuropathy , headache, generalized body aches or pains, chest pain, shortness of breath, abdominal discomfort, low back pain, frequency or burning when she urinates, dizziness, diplopia or disorientation. It is noted in the medical records that the patient was placed on a combination of opioids prophylactical ly upon admission. The patient states she had been on methadone and possibly Suboxone in the past. The last time she took methadone was approximately 1 month and states that she was getting it from the clinic and she stopped going and she states there were too many other people using substances in the clinic while she was waiting to [facility] picker her methadone. She states that she was taking 30 mg 1 month prior to this, but she cannot give me a history of whether or not she was being tapered off me dication. She states the last time she used heroin was too long ago to count. I asked her how many months ago and she says it was years ago. I asked her how many years ago and she said just many yea rs ago. She has been off methadone for 1 month prior to this hospitalization. Therefore, there is not a clear pain issue with this unfortunate female. MEDICATIONS: Please refer to reconciliation sheets. ALLERGIES: Hydrocortisone and ibuprofen. MAJOR MEDICAL PROBLEMS IN THE PAST: Currently are primarily as per history of present illness. Al so, anemia of chronic disease and fluid and electrolyte abnormalities, chronic lower extremity circu mferential healing wounds. SOCIAL HISTORY: Nonsmoker, nondrinker at this time. No drug abuse she states in many years. FAMILY HISTORY: Noncontributory. REVIEW OF SYSTEMS: A 12-point review of systems noncontributory except which is as per history of p resent illness. PHYSICAL EXAMINATION: GENERAL: Shows a very cachectic anemic appearing female who is in no acute distress whatsoever. Sh e does not moan, groan on examination and does not grimace either. VITAL SIGNS: Her blood pressure is 121/85, pulse of 108 and regular, respirations are 20, temperatu re 98.7 degrees, 96% saturation on room air. HEENT: She is normocephalic and atraumatic. Anicteric, acyanotic. CHEST: Shows bilateral clear breath sounds throughout both lung johns. COR: S1, S2, without S3, S4, murmur, gallop, rub. Normal rate, normal rhythm. ABDOMEN: Grossly benign. LABORATORY TESTS: White blood cell count of 4.7, hemoglobin 9.0, hematocrit 27.3, MCV of 94.1, plat elet count 331,000. Chemistries: Serum sodium 139, potassium 3.9, chloride 105, bicarbonate 30, BU N 11, creatinine 0.38, blood sugar 80, creatinine 7.4. ASSESSMENT AND PLAN: I do not believe this lady has human immunodeficiency virus associated pain sy ndrome, although it certainly does exist in human immunodeficiency virus positive populations, but generally is associated with far advanced disease with a history of opportunistic infections, insofa r is generally neuropathy. Therefore, because of her very debilitated condition, the fact that she has not been on methadone at least in a month, I would suggest not restarting methadone in this lady . I believe it is very high risk that she will not tolerate the medication or worse would not metab olize it even though her chemistries are relatively normal and methadone is metabolized in a differe nt way than another opioids and is safe for liver and renal disease. My inclination was to treat he r for pain syndrome, but I believe she is fairly high risk of untoward complications unless she is b eing followed very closely. My understanding is that she is being referred to hospice care and I be lieve under those clinical conditions where she can be followed very closely and monitored would be the only reason I think that she can safely be given any opioids and especially long-acting opioids like methadone. We will be happy to follow her. Dictated By: IESHA MARTINEZ MD, LP/SHILPA Conf#: [id number] DID#: [id number]
[2016-09-12] MEDS: EFAVIRENZ 600 MG TAB PO SCH (20:22)
[2016-09-12] MEDS: ATORVASTATIN 40 MG TAB PO SCH (20:22)
[2016-09-12] MEDS: MIRTAZAPINE 15 MG TAB PO SCH (20:23)
[2016-09-12 20:41] VITALS: BP 115/76; RESP 20
[2016-09-13] MEDS: [UNRECOGNIZED DRUG - REMARK] XX SCH ×3 (00:30→15:53)
[2016-09-13] MEDS: PANTOPRAZOLE (EC) 40 MG TAB PO SCH ×2 (05:27→17:15)
[2016-09-13 07:50] VITALS: BP 113/82; RESP 20
[2016-09-13] MEDS: VALGANCICLOVIR 450 MG TAB PO SCH ×2 (09:41→21:52)
[2016-09-13] MEDS: EMTRICITABINE/TENOFOVIR TAB PO SCH (09:41)
[2016-09-13] MEDS: MESALAMINE (EC) 400 MG CAP PO SCH ×3 (09:41→21:52)
[2016-09-13] MEDS: SUCRALFATE 1 GM TAB PO SCH ×4 (09:41→21:53)
[2016-09-13] MEDS: COLLAGENASE 30 GM TUBE TOP SCH (09:46)
--- NOTE | 2016-09-13 10:15 | PN ---
Date/Time of Note Date/Time of Note DATE: 09/13/16 TIME: 10:13 Assessment/Plan VTE Prophylaxis VTE Prophylaxis Intervention: SCD's Lines/Catheters IV Catheter Type (from Nrs): NO IV ACCESS MD AWARE Urinary Cath still in place: No Assessment/Plan Chief Complaint/Hosp Course 1. Deconditioning secondary to human immunodeficiency virus and malnutrition. Continue physical therapy. 2. Human immunodeficiency virus. Latest CD4 count 392. Continue antiretroviral medications. 3. Severe protein caloric malnutrition. Continue with dietary supplements. 4. Normocytic normochromic anemia. Monitor hemoglobin and hematocrit closely. 5. History of hepatitis C, stable. No active issues. 6. Hypocalcemia. Most probably from underlying hyperalbuminemia. Monitor. 7. History of gastrointestinal bleed with the latest esophagogastroduodenoscopy showing a gastric ulcer. Continue Protonix. 8. Left upper extremity deep venous thrombosis from a peripherally inserted catheter line. Status post removal of peripherally inserted catheter line. Not a candidate for anticoagulation due to underlying anemia and recurrent gastrointestinal bleeding. 9. Depression with suicidal ideation. The patient was initially placed on 5150 hold. The patient's 5150 hold and 1:1 supervision has been discontinued after reevaluation by psychiatry. 10. Multiple chronic wounds with underlying stage IV sacral decubitus ulcer. Continue local wound care. 11. Opioid dependency. The verbalized that she was on methadone before. Pain management as per the pain management team. 12. Fluid, electrolytes and nutrition. Continue regular diet as tolerated. 13. Bilateral pleural effusions. Stable. Continue to monitor. 14. Deep venous thrombosis prophylaxis with bilateral sequential compression devices. 15. Gastrointestinal prophylaxis, proton pump inhibitors. PLAN: Continue physical therapy. Await placement to custodial facility Vs evaluation by hospice. Case discussed with Dr. Swanson. Problems: Subjective 24 Hr Interval Summary Free Text/Dictation No changes in status. Exam/Review of Systems Vital Signs Vitals Vital Signs Date Time Temp Pulse Resp B/P Pulse Ox O2 Delivery O2 Flow Rate FiO2 09/13/16 07:50 98.3 109 20 113/82 96 09/09/16 19:35 Room Air Intake and Output 09/12/16 09/12/16 09/13/16 14:59 22:59 06:59 Intake Total 720 ml Balance 720 ml Exam GENERAL: This is an extremely malnourished female lying in bed in no apparent distress. HEENT: Head normocephalic and atraumatic. Eyes: Anicteric sclerae. Conjunctivae clear. ENT: Nasal septum is midline. Oral mucosa is moist. NECK: Supple. No JVD noticed. RESPIRATORY: Bilaterally clear to auscultation. No adventitious breath sounds. No use of accessory muscles of respiration. CARDIAC: Regular rate and rhythm. No murmurs. ABDOMEN: Soft, nontender, nondistended. Bowel sounds hypoactive in all 4 quadrants. GENITOURINARY: Deferred. EXTREMITIES: Pedal edema bilaterally. NEUROLOGIC: The patient is awake, alert and oriented. Cranial nerves are grossly intact. Results Result Diagram: 09/11/1672209/11/16722 Medications Medications Current Medications Ondansetron HCl (Zofran Inj) 4 mg Q6H PRN IV NAUSEA AND/OR VOMITING Last administered on 09/05/16 08:07; Admin Dose 4 MG; Start 09/04/16 at 18:30 Acetaminophen (Tylenol Tab) 650 mg Q6H PRN PO PAIN LEVEL 1-3 OR FEVER Last administered on 09/09/16 02:21; Admin Dose 650 MG; Start 09/04/16 at 18:30 Atorvastatin Calcium (Lipitor) 40 mg QHS PO Last administered on 09/12/16 20: 22; Admin Dose 40 MG; Start 09/04/16 at 22:00 Efavirenz (Sustiva) 600 mg QHS PO Last administered on 09/12/16 20:22; Admin Dose 600 MG; Start 09/04/16 at 22:00 Emtricitabine/ Tenofovir (Truvada) 1 tab DAILY PO Last administered on 09:41; Admin Dose 1 TAB; Start 09/05/16 at 09:00 Pantoprazole (Protonix Tab) 40 mg BID@06,18 PO Last administered on 09/13/16 05:27; Admin Dose 40 MG; Start 09/05/16 at 06:00 Sucralfate (Carafate) 1 gm QID PO Last administered on 09/13/16 09:41; Admin Dose 1 GM; Start 09/04/16 at 22:00 Valganciclovir (Valcyte) 450 mg Q12 PO Last administered on 09/13/16 09:41; Admin Dose 450 MG; Start 09/04/16 at 22:00 Mesalamine (Delzicol Dr) 400 mg TID PO Last administered on 09/13/16 09:41; Admin Dose 400 MG; Start 09/04/16 at 22:00 Collagenase (Santyl) 1 applic DAILY TOP Last administered on 09/13/16 09:46; Admin Dose 1 APPLIC; Start 09/05/16 at 09:00 Lorazepam (Ativan) 0.5 mg Q6H PRN PO ANXIETY Last administered on 09/12/16 20: 23; Admin Dose 0.5 MG; Start 09/06/16 at 14:00 Al Hydrox/Mg Hydrox/Simethicone (Mag-Al Plus) 30 ml Q4H PRN PO GASTROINTESTINAL UPSET Last administered on 09/11/16 01:43; Admin Dose 30 ML; Start 09/08/16 at 15:00 Mirtazapine (Remeron) 7.5 mg HS PO Last administered on 09/12/16 20:23; Admin Dose 7.5 MG; Start 09/09/16 at 21:00 Miscellaneous Information (*Order Clarification Bulletin) MEDICATION REQUIRES CLARIFICATION: Q8H XX ; Start 09/11/16 at 16:30 TK PERALES NP Sep 13, 2016 10:14
[2016-09-13] MEDS: LORAZEPAM 0.5 MG TAB PO PRN ×2 (10:24→16:50)
[2016-09-13] MEDS: ATORVASTATIN 40 MG TAB PO SCH (21:52)
[2016-09-13] MEDS: EFAVIRENZ 600 MG TAB PO SCH (21:52)
[2016-09-13] MEDS: MIRTAZAPINE 15 MG TAB PO SCH (21:53)
[2016-09-14] MEDS: [UNRECOGNIZED DRUG - REMARK] XX SCH ×3 (00:30→15:43)
[2016-09-14] MEDS: PANTOPRAZOLE (EC) 40 MG TAB PO SCH ×2 (05:29→17:50)
[2016-09-14] MEDS: EMTRICITABINE/TENOFOVIR TAB PO SCH (08:15)
[2016-09-14] MEDS: SUCRALFATE 1 GM TAB PO SCH ×4 (08:15→22:19)
[2016-09-14] MEDS: VALGANCICLOVIR 450 MG TAB PO SCH ×2 (08:15→22:19)
[2016-09-14] MEDS: MESALAMINE (EC) 400 MG CAP PO SCH ×3 (08:15→22:19)
[2016-09-14] MEDS: COLLAGENASE 30 GM TUBE TOP SCH (08:17)
[2016-09-14 08:30] VITALS: BP 116/81; RESP 20
[2016-09-14] MEDS: LORAZEPAM 0.5 MG TAB PO PRN ×2 (10:20→18:01)
--- NOTE | 2016-09-14 11:14 | PN ---
Date/Time of Note Date/Time of Note DATE: 09/14/16 TIME: 11:12 Assessment/Plan VTE Prophylaxis VTE Prophylaxis Intervention: SCD's Lines/Catheters IV Catheter Type (from Nrs): NO IV ACCESS MD AWARE Urinary Cath still in place: No Assessment/Plan Assessment/Plan 1. Deconditioning secondary to human immunodeficiency virus and malnutrition. Continue physical therapy. 2. Human immunodeficiency virus. Latest CD4 count 392. Continue antiretroviral medications. 3. Severe protein caloric malnutrition. Continue with dietary supplements. 4. Normocytic normochromic anemia. Monitor hemoglobin and hematocrit closely. 5. History of hepatitis C, stable. No active issues. 6. Hypocalcemia. Most probably from underlying hyperalbuminemia. Monitor. 7. History of gastrointestinal bleed with the latest esophagogastroduodenoscopy showing a gastric ulcer. Continue Protonix. 8. Left upper extremity deep venous thrombosis from a peripherally inserted catheter line. Status post removal of peripherally inserted catheter line. Not a candidate for anticoagulation due to underlying anemia and recurrent gastrointestinal bleeding. 9. Depression with suicidal ideation. The patient was initially placed on 5150 hold. The patient's 5150 hold and 1:1 supervision has been discontinued after reevaluation by psychiatry. 10. Multiple chronic wounds with underlying stage IV sacral decubitus ulcer. Continue local wound care. 11. Opioid dependency. The verbalized that she was on methadone before. Pain management as per the pain management team. 12. Fluid, electrolytes and nutrition. Continue regular diet as tolerated. 13. Bilateral pleural effusions. Stable. Continue to monitor. 14. Deep venous thrombosis prophylaxis with bilateral sequential compression devices. 15. Gastrointestinal prophylaxis, proton pump inhibitors. PLAN: Continue physical therapy. Await placement to retirement facility Vs evaluation by hospice. awaiting placement, pain management following Subjective 24 Hr Interval Summary Free Text/Dictation pt c/o pain, Doing better Exam/Review of Systems Vital Signs Vitals Vital Signs Date Time Temp Pulse Resp B/P Pulse Ox O2 Delivery O2 Flow Rate FiO2 09/14/16 08:30 98.5 111 20 116/81 95 Intake and Output 09/13/16 09/13/16 09/14/16 15:00 23:00 07:00 Intake Total 870 ml 480 ml Balance 870 ml 480 ml Exam GENERAL: This is a cachectic, ill-appearing, middle-aged woman who is awake, lying comfortably in bed. HEENT: Head atraumatic, normocephalic. Sclerae anicteric. Buccal mucosa dry. NECK: Supple, trachea midline. CHEST: Rise symmetrical. Breath sounds diminished to bases. HEART: S1, S2. ABDOMEN: Soft. Bowel tones present. EXTREMITIES: With bilateral hand edema SKIN: Severe anasarca. Results Result Diagram: 09/11/1672209/11/16722 Medications Medications Current Medications Ondansetron HCl (Zofran Inj) 4 mg Q6H PRN IV NAUSEA AND/OR VOMITING Last administered on 09/05/16 08:07; Admin Dose 4 MG; Start 09/04/16 at 18:30 Acetaminophen (Tylenol Tab) 650 mg Q6H PRN PO PAIN LEVEL 1-3 OR FEVER Last administered on 09/09/16 02:21; Admin Dose 650 MG; Start 09/04/16 at 18:30 Atorvastatin Calcium (Lipitor) 40 mg QHS PO Last administered on 09/13/16 21: 52; Admin Dose 40 MG; Start 09/04/16 at 22:00 Efavirenz (Sustiva) 600 mg QHS PO Last administered on 09/13/16 21:52; Admin Dose 600 MG; Start 09/04/16 at 22:00 Emtricitabine/ Tenofovir (Truvada) 1 tab DAILY PO Last administered on 08:15; Admin Dose 1 TAB; Start 09/05/16 at 09:00 Pantoprazole (Protonix Tab) 40 mg BID@06,18 PO Last administered on 09/14/16 05:29; Admin Dose 40 MG; Start 09/05/16 at 06:00 Sucralfate (Carafate) 1 gm QID PO Last administered on 09/14/16 08:15; Admin Dose 1 GM; Start 09/04/16 at 22:00 Valganciclovir (Valcyte) 450 mg Q12 PO Last administered on 09/14/16 08:15; Admin Dose 450 MG; Start 09/04/16 at 22:00 Mesalamine (Delzicol Dr) 400 mg TID PO Last administered on 09/14/16 08:15; Admin Dose 400 MG; Start 09/04/16 at 22:00 Collagenase (Santyl) 1 applic DAILY TOP Last administered on 09/13/16 09:46; Admin Dose 1 APPLIC; Start 09/05/16 at 09:00 Al Hydrox/Mg Hydrox/Simethicone (Mag-Al Plus) 30 ml Q4H PRN PO GASTROINTESTINAL UPSET Last administered on 09/11/16 01:43; Admin Dose 30 ML; Start 09/08/16 at 15:00 Mirtazapine (Remeron) 7.5 mg HS PO Last administered on 09/13/16 21:53; Admin Dose 7.5 MG; Start 09/09/16 at 21:00 Miscellaneous Information (*Order Clarification Bulletin) MEDICATION REQUIRES CLARIFICATION: Q8H XX ; Start 09/11/16 at 16:30 Lorazepam (Ativan) 0.5 mg Q6H PRN PO ANXIETY Last administered on 09/14/16 10: 20; Admin Dose 0.5 MG; Start 09/14/16 at 09:00 ASHISH MENDOZA MD Sep 14, 2016 11:14
[2016-09-14] MEDS: AL HYDROX/MG HYDROX/SIMETH 30 ML CUP PO PRN (16:18)
[2016-09-14] MEDS: EFAVIRENZ 600 MG TAB PO SCH (22:18)
[2016-09-14] MEDS: ATORVASTATIN 40 MG TAB PO SCH (22:19)
[2016-09-14] MEDS: MIRTAZAPINE 15 MG TAB PO SCH (22:19)
[2016-09-14 22:49] VITALS: BP 116/78; RESP 20
[2016-09-15] MEDS: [UNRECOGNIZED DRUG - REMARK] XX SCH ×3 (00:30→15:58)
[2016-09-15] MEDS: PANTOPRAZOLE (EC) 40 MG TAB PO SCH ×2 (05:31→17:12)
[2016-09-15 07:50] VITALS: BP 104/70; RESP 18
[2016-09-15] MEDS: EMTRICITABINE/TENOFOVIR TAB PO SCH (08:47)
[2016-09-15] MEDS: VALGANCICLOVIR 450 MG TAB PO SCH ×2 (08:47→21:00)
[2016-09-15] MEDS: SUCRALFATE 1 GM TAB PO SCH ×4 (08:47→20:59)
[2016-09-15] MEDS: MESALAMINE (EC) 400 MG CAP PO SCH ×3 (08:47→21:00)
[2016-09-15] MEDS: COLLAGENASE 30 GM TUBE TOP SCH (08:49)
[2016-09-15] MEDS: LORAZEPAM 0.5 MG TAB PO PRN ×2 (12:40→21:03)
--- NOTE | 2016-09-15 16:07 | PN ---
Date/Time of Note Date/Time of Note DATE: 09/15/16 TIME: 16:05 Assessment/Plan VTE Prophylaxis VTE Prophylaxis Intervention: SCD's Lines/Catheters IV Catheter Type (from Nrs): NO IV ACCESS MD AWARE Urinary Cath still in place: No Assessment/Plan Chief Complaint/Hosp Course 1. Deconditioning secondary to human immunodeficiency virus and malnutrition. Continue physical therapy. 2. Human immunodeficiency virus. Latest CD4 count 392. Continue antiretroviral medications. 3. Severe protein caloric malnutrition. Continue with dietary supplements. 4. Normocytic normochromic anemia. Monitor hemoglobin and hematocrit closely. 5. History of hepatitis C, stable. No active issues. 6. Hypocalcemia. Most probably from underlying hyperalbuminemia. Monitor. 7. History of gastrointestinal bleed with the latest esophagogastroduodenoscopy showing a gastric ulcer. Continue Protonix. 8. Left upper extremity deep venous thrombosis from a peripherally inserted catheter line. Status post removal of peripherally inserted catheter line. Not a candidate for anticoagulation due to underlying anemia and recurrent gastrointestinal bleeding. 9. Depression with suicidal ideation. The patient was initially placed on 5150 hold. The patient's 5150 hold and 1:1 supervision has been discontinued after reevaluation by psychiatry. 10. Multiple chronic wounds with underlying stage IV sacral decubitus ulcer. Continue local wound care. 11. Opioid dependency- Verbalized that she was on methadone before. Pain management as per the pain management team. 12. Fluid, electrolytes and nutrition. Continue regular diet as tolerated. 13. Bilateral pleural effusions. Stable. Continue to monitor. 14. Deep venous thrombosis prophylaxis with bilateral sequential compression devices. 15. Gastrointestinal prophylaxis, proton pump inhibitors. Dispo: Continue physical therapy. Await placement to halfway facility with hospice Problems: Subjective 24 Hr Interval Summary Constitutional: no complaints Exam/Review of Systems Vital Signs Vitals Vital Signs Date Time Temp Pulse Resp B/P Pulse Ox O2 Delivery O2 Flow Rate FiO2 09/15/16 07:50 98.0 110 18 104/70 97 Intake and Output 09/14/16 09/14/16 09/15/16 15:00 23:00 07:00 Intake Total 1400 ml 580 ml Balance 1400 ml 580 ml Exam Constitutional: alert Respiratory: clear to auscultation Cardiovascular: regular rate and rhythm Gastrointestinal: soft, No distended Musculoskeletal: nl extremities to inspection Results Result Diagram: 3/23/17 0723 3/23/17 0723 Medications Medications Current Medications Ondansetron HCl (Zofran Inj) 4 mg Q6H PRN IV NAUSEA AND/OR VOMITING Last administered on 09/05/16 08:07; Admin Dose 4 MG; Start 09/04/16 at 18:30 Acetaminophen (Tylenol Tab) 650 mg Q6H PRN PO PAIN LEVEL 1-3 OR FEVER Last administered on 09/09/16 02:21; Admin Dose 650 MG; Start 09/04/16 at 18:30 Atorvastatin Calcium (Lipitor) 40 mg QHS PO Last administered on 09/14/16 22: 19; Admin Dose 40 MG; Start 09/04/16 at 22:00 Efavirenz (Sustiva) 600 mg QHS PO Last administered on 09/14/16 22:18; Admin Dose 600 MG; Start 09/04/16 at 22:00 Emtricitabine/ Tenofovir (Truvada) 1 tab DAILY PO Last administered on 08:47; Admin Dose 1 TAB; Start 09/05/16 at 09:00 Pantoprazole (Protonix Tab) 40 mg BID@06,18 PO Last administered on 09/15/16 05:31; Admin Dose 40 MG; Start 09/05/16 at 06:00 Sucralfate (Carafate) 1 gm QID PO Last administered on 09/15/16 12:37; Admin Dose 1 GM; Start 09/04/16 at 22:00 Valganciclovir (Valcyte) 450 mg Q12 PO Last administered on 09/15/16 08:47; Admin Dose 450 MG; Start 09/04/16 at 22:00 Mesalamine (Delzicol Dr) 400 mg TID PO Last administered on 09/15/16 12:37; Admin Dose 400 MG; Start 09/04/16 at 22:00 Collagenase (Santyl) 1 applic DAILY TOP Last administered on 09/15/16 08:49; Admin Dose 1 APPLIC; Start 09/05/16 at 09:00 Al Hydrox/Mg Hydrox/Simethicone (Mag-Al Plus) 30 ml Q4H PRN PO GASTROINTESTINAL UPSET Last administered on 09/14/16 16:18; Admin Dose 30 ML; Start 09/08/16 at 15:00 Mirtazapine (Remeron) 7.5 mg HS PO Last administered on 09/14/16 22:19; Admin Dose 7.5 MG; Start 09/09/16 at 21:00 Miscellaneous Information (*Order Clarification Bulletin) MEDICATION REQUIRES CLARIFICATION: Q8H XX ; Start 09/11/16 at 16:30 Lorazepam (Ativan) 0.5 mg Q6H PRN PO ANXIETY Last administered on 09/15/16 12: 40; Admin Dose 0.5 MG; Start 09/14/16 at 09:00 ISABEL HARLEY Sep 15, 2016 16:07
[2016-09-15 20:25] VITALS: BP 124/83; RESP 19
[2016-09-15] MEDS: ATORVASTATIN 40 MG TAB PO SCH (20:59)
[2016-09-15] MEDS: MIRTAZAPINE 15 MG TAB PO SCH (20:59)
[2016-09-15] MEDS: EFAVIRENZ 600 MG TAB PO SCH (21:00)
[2016-09-16] MEDS: [UNRECOGNIZED DRUG - REMARK] XX SCH (00:13)
[2016-09-16] MEDS: PANTOPRAZOLE (EC) 40 MG TAB PO SCH ×2 (05:12→17:06)
[2016-09-16] MEDS: COLLAGENASE 30 GM TUBE TOP SCH ×2 (05:13→09:00)
[2016-09-16 08:12] VITALS: BP 102/69; RESP 18
[2016-09-16] MEDS: EMTRICITABINE/TENOFOVIR TAB PO SCH (09:25)
[2016-09-16] MEDS: SUCRALFATE 1 GM TAB PO SCH ×4 (09:25→20:36)
[2016-09-16] MEDS: MESALAMINE (EC) 400 MG CAP PO SCH ×3 (09:25→20:39)
[2016-09-16] MEDS: VALGANCICLOVIR 450 MG TAB PO SCH ×2 (09:25→20:37)
[2016-09-16] MEDS: LORAZEPAM 0.5 MG TAB PO PRN (09:25)
--- NOTE | 2016-09-16 18:27 | DS ---
DATE OF ADMISSION: 09/04/2016 DATE OF DISCHARGE: 09/16/2016 DISCHARGE DIAGNOSES: 1. Failure to thrive secondary to human immunodeficiency virus, malnutrition. Discharged to a nurs ing facility with hospice. 2. Human immunodeficiency virus. Latest CD4 was 292. Continue antiretroviral medications. The cleo gleason has a history of noncompliance. 3. Normocytic anemia secondary to chronic disease. 4. History of hepatitis C cirrhosis, stable. 5. History of gastrointestinal bleed. Continue Protonix. 6. Left upper extremity deep venous thrombosis from a peripherally inserted catheter line, status p ost removal of line. Not a candidate for anticoagulation secondary to anemia and recent gastrointes tinal bleed. 7. Depression with suicide ideation. The patient has been evaluated by Psychiatry. 8. Multiple chronic wounds with underlying stage IV sacral decubitus ulcers. 9. Opioid dependency. 10. Bilateral pleural effusions, stable. HOSPITAL COURSE: The patient is a 41-year-old female with a history of substance abuse, HIV, noncom pliance, failure to thrive, nonambulatory state as well as cachexia. The patient was recently disch arged before coming back within 24 hours as she has failure to thrive, is unable to ambulate and is unable to be cared for by family. After discussion with the patient, it was decided that the patien t would be appropriate for hospice in a facility. The patient was seen by [facility], and arrang ements were placed for placement. She was told about importance of compliance with medications. Ar rangements were made for the patient to get transferred to nursing facility. On day of discharge, t he patient's vital signs, labs, physical exam were stable. No acute issues. CONDITION ON DISCHARGE: Fair. DISPOSITION: To SNF with hospice. MEDICATIONS: The patient is to continue her usual home medications but could stop taking the Lipito r. She was recommended to take Remeron. FOLLOWUP: The patient is to follow with physicians of [facility]. Greater than 30 minutes was spent coordinating discharge of patient. Dictated By: ISABEL HARLEY MD BS/NTS Conf#: [id number] DID#: [id number]
[2016-09-16 20:10] VITALS: BP 116/78; RESP 21
[2016-09-16] MEDS: ATORVASTATIN 40 MG TAB PO SCH (20:36)
[2016-09-16] MEDS: MIRTAZAPINE 15 MG TAB PO SCH (20:37)
[2016-09-16] MEDS: EFAVIRENZ 600 MG TAB PO SCH (20:37)
== END 2016-09-16 20:59 | disposition hospice, inpatient (51) | DRG 974 ==
LOC: E/R 09:45 → PP2 13:43
PROVIDERS: ADMIT Internal Medicine; ATTEND Internal Medicine
DX: B20 Human immunodeficiency virus [HIV] disease (principal); R57.8 Other shock; B37.81 Candidal esophagitis; J96.00 Acute respiratory failure, unspecified whether with hypoxia or hypercapnia; K74.60 Unspecified cirrhosis of liver; E43 Unspecified severe protein-calorie malnutrition; L89.154 Pressure ulcer of sacral region, stage 4; J90 Pleural effusion, not elsewhere classified; R64 Cachexia; Z68.1 Body mass index [BMI] 19.9 or less, adult; I82.621 Acute embolism and thrombosis of deep veins of right upper extremity; K92.2 Gastrointestinal hemorrhage, unspecified; F11.20 Opioid dependence, uncomplicated; R45.851 Suicidal ideations; K27.9 Peptic ulcer, site unspecified, unspecified as acute or chronic, without hemorrhage or perforation; K74.69 Other cirrhosis of liver; B19.20 Unspecified viral hepatitis C without hepatic coma; D63.8 Anemia in other chronic diseases classified elsewhere; D64.9 Anemia, unspecified; R13.10 Dysphagia, unspecified; E83.51 Hypocalcemia; E87.6 Hypokalemia; F41.9 Anxiety disorder, unspecified; R41.82 Altered mental status, unspecified; R00.0 Tachycardia, unspecified; R53.81 Other malaise; R53.1 Weakness; F32.9 Major depressive disorder, single episode, unspecified; Z88.8 Allergy status to other drugs, medicaments and biological substances; Z86.59 Personal history of other mental and behavioral disorders; Z91.14 Patient's other noncompliance with medication regimen
CPT/HCPCS: 36415; 71010; 80048; 80053; 80069; 83690; 83735; 84100; 84134; 84484; 84703; 85025; 87075; 90686; 93005; 93971; 96374; 96375; 97110; 97116; 97162; 97530; J1170; J2060; J2270; J2405; J3480; J7040

== ENCOUNTER 2016-11-11 13:04 | Inpatient (IN) | payer MEDICAID ==
[~2016-11-11] VITALS: Ht 127 cm; Wt 46.0 kg
[2016-11-11 13:16] VITALS: Ht 127 cm; Wt 46.0 kg
[2016-11-11 14:15] LABS: ADD UMIC NO; UR BILIRUBIN (Dip) NEGATIVE (NEGATIVE); UR BLOOD (Dip) NEGATIVE (NEGATIVE); UR CLARITY CLEAR (CLEAR); UR COLOR LT. YELLOW (YELLOW); UR GLUCOSE (Dip) NEGATIVE (NEGATIVE); UR KETONES (Dip) NEGATIVE (NEGATIVE); UR LEUKOCYTE ESTERASE (Dip) NEGATIVE (NEGATIVE); UR NITRITE (Dip) NEGATIVE (NEGATIVE); UR TOTAL PROTEIN (Dip) NEGATIVE (NEGATIVE); UR UROBILINOGEN (Dip) 0.2 E.U./dL (0.1-1.0)
--- NOTE | 2016-11-11 14:18 | RADRPT ---
PROCEDURE: Chest x-ray CLINICAL INDICATION: Shortness of breath TECHNIQUE: Chest single view COMPARISON: 09/04/2016 FINDINGS: The heart is normal in size. The pulmonary vessels are normal in caliber. The lungs are clear. Th e costophrenic angles are sharp. The visualized bony thorax is unremarkable. IMPRESSION: No acute cardiopulmonary disease. There is gaseous distension of bowel loops in the upper abdomen and questionable free air. Recommen d upright film or decubitus view for further evaluation Call report was made to Dr. Dominguez on 11/11/2016 2:17:05 PM RPTAT: HH .David Albarran MD, MD Date Time Electronically viewed and signed by .David Albarran MD, on 11/11/2016 14:18 .W/
[2016-11-11] MEDS ORDERED: PIPER-TAZO 3.375 GM IV (PMX) 100 ML IVPB STA (14:21)
[2016-11-11] MEDS ORDERED: SODIUM CHLORIDE 0.9% 1L BAG IV* STA (14:21)
[2016-11-11] MEDS ORDERED: VANCOMYCIN 1 GM (PMX) 250 ML IVPB ONE (14:30)
[2016-11-11 14:38] LABS: ADD SCAN DIFF NO
[2016-11-11 14:45] LABS: ABNORMAL IP MESSAGE 1; HEMATOCRIT 15.9 % (37.0-47.0); MEAN CORPUSCULAR HEMOGLOBIN 24.2 pg (29.0-33.0); MEAN CORPUSCULAR HGB CONC 28.9 g/dl (32.0-37.0); MEAN CORPUSCULAR VOLUME 83.7 fl (82.0-101.0); MEAN PLATELET VOLUME 11.6 fl (7.4-10.4); PLATELET COUNT 74 10^3/UL (140-415); RED CELL DISTRIBUTION WIDTH 17.8 % (11.5-14.5)
[2016-11-11 14:53] LABS: HEMOGLOBIN 4.6 g/dl (12.0-16.0)
[2016-11-11 14:59] LABS: INR 1.32; PROTIME 16.5 Sec (12.2-14.2); PT RATIO 1.3
[2016-11-11 15:00] LABS: PARTIAL THROMBOPLASTIN TIME 23.8 Sec (25.0-35.0)
[2016-11-11 15:04] LABS: ALANINE AMINOTRANSFERASE 43 IU/L (13-69); ALBUMIN 1.3 g/dl (3.3-4.9); ALBUMIN/GLOBULIN RATIO 0.41; ALKALINE PHOSPHATASE 99 IU/L (42-121); ANION GAP 4 (8-16); ASPARTATE AMINO TRANSFERASE 29 IU/L (15-46); BLOOD UREA NITROGEN 40 mg/dl (7-20); CALCIUM 6.5 mg/dl (8.4-10.2); CARBON DIOXIDE 27 mmol/L (21-31); CHLORIDE 100 mmol/L (97-110); CREATININE 0.71 mg/dl (0.44-1.00); GLUCOSE 124 mg/dl (70-220); POTASSIUM 3.9 mmol/L (3.5-5.1); SODIUM 127 mmol/L (135-144); TOTAL PROTEIN 4.4 g/dl (6.1-8.1)
--- NOTE | 2016-11-11 15:09 | RADRPT ---
PROCEDURE: CT Abdomen and Pelvis without contrast. CLINICAL INDICATION: Abdominal and pelvic pain. TECHNIQUE: CT scan of the abdomen and pelvis without contrast was performed. Coronal and sagittal reformatted images were obtained from the axial source images. Images were reviewed on a high-resolu [employer] PACS workstation. Total exam DLP is 217.32 mGy-cm. CTDIvol is 3.93 mGy. One or more of the fo llowin dose reduction techniques were used: Automated exposure control, adjustment of the mA and/or kV according to patient size, use of iterative reconstruction technique. COMPARISON: Chest x-ray done earlier the same day which demonstrated gaseous distension of bowel i n the upper abdomen and possible free air in the abdomen. FINDINGS: There is mild atelectasis at the left lung base posteriorly. The lung bases are otherwise normal. The heart size is normal. There is no pericardial effusion. There is no right pleural effusion. T here is a small left pleural effusion. The liver is normal in size and attenuation. There is no focal hepatic lesion. The gallbladder is contracted. The bile ducts are normal. The spleen is normal in size. There is no focal splenic lesion. Both adrenals are normal with no enlargement or mass. The pancreas is unremarkable with no mass or evidence of pancreatitis. There is no renal mass or hydronephrosis. There is no renal calculus or ureteral calculus. The abdominal aorta is not dilated. There is a right femoral vein catheter with the superior tip in the lower inferior vena cava. There is no retroperitoneal lymphadenopathy or mass. There is no pelvic lymphadenopathy or mass. There is a Hughes catheter in the urinary bladder. The periappendiceal region is unremarkable with no evidence of appendicitis. There is gaseous distension of the stomach. Gas and fluid are also present in the colon. There is mild diffuse thickening of the wall of the colon. No definite obstructing lesion is visualized. There is no free fluid or free gas. The osseous structures are unremarkable with no fracture or lytic lesion. IMPRESSION: 1. Mild atelectasis at the left lung base posteriorly. 2. Small left pleural effusion. 3. Contracted gallbladder. 4. Right femoral vein catheter tip in the lower inferior vena cava. 5. Hughes catheter in the bladder. 6. Gaseous distension of the stomach. 7. Gas and fluid in the colon and mild diffuse thickening of the wall of the colon. This may indic ate an inflammatory or infectious process. Clinical correlation is advised. 8. Otherwise unremarkable study. RPTAT: QQ .Patricio Phillips MD, Date Time Electronically viewed and signed by .Patricio Phillips MD, on 11/11/2016 15:09 .R/
[2016-11-11] MEDS ORDERED: SOD CHLORIDE 0.9% 250 ML IV ONE (15:10)
[2016-11-11 15:15] LABS: TROPONIN-I < 0.012 ng/ml (0.00-0.12)
[2016-11-11] MEDS ORDERED: OCTREOTIDE 500 MCG in SOD CHLORIDE 0.9% 49 ML IV STA (15:35)
[2016-11-11] MEDS ORDERED: PANTOPRAZOLE IV 80 MG in SOD CHLORIDE 0.9% 100 ML IVPB STA (15:35)
[2016-11-11] MEDS ORDERED: OCTREOTIDE 50 MCG in SOD CHLORIDE 0.9% 25 ML IVPB STA (15:35)
[2016-11-11] MEDS: SOD CHLORIDE 0.9% 1,000 ML IV SCH ×2 (15:46→20:00)
[2016-11-11] MEDS ORDERED: hydrALAzine 20 MG INJ IV PRN (16:00)
[2016-11-11] MEDS ORDERED: morphine 2 MG INJ IV PRN (16:00)
[2016-11-11] MEDS ORDERED: ALBUTEROL/IPRATROPIUM (NEB) 3 ML AMP HHN PRN (16:00)
[2016-11-11] MEDS ORDERED: DOCUSATE SODIUM 100 MG CAP PO PRN (16:00)
[2016-11-11] MEDS ORDERED: ACETAMINOPHEN 325 MG TAB PO PRN (16:00)
[2016-11-11] MEDS ORDERED: LORAZEPAM 2 MG INJ IV PRN (16:00)
[2016-11-11] MEDS ORDERED: MAGNESIUM HYDROXIDE 30ML CUP PO PRN (16:00)
[2016-11-11] MEDS ORDERED: NACL 0.9% 3 ML SYG IV SCH (16:00)
[2016-11-11] MEDS ORDERED: NA PHOSPHATE/BIPHOS 133 ML ENEMA PR PRN (16:00)
[2016-11-11] MEDS ORDERED: HYDROCODONE/APAP (5/325) TAB PO PRN (16:00)
[2016-11-11] MEDS ORDERED: OCTREOTIDE 500 MCG in SOD CHLORIDE 0.9% 49 ML IV SCH (16:00)
[2016-11-11] MEDS ORDERED: ONDANSETRON 4 MG INJ IV PRN (16:00)
[2016-11-11] MEDS ORDERED: NITROGLYCERIN (SL) 0.4 MG TAB SL PRN (16:00)
[2016-11-11] MEDS ORDERED: SOD CHLORIDE 0.9% 1,000 ML IV STA (16:24)
[2016-11-11] MEDS ORDERED: DEXTROSE 50% 50 ML SYRINGE IV PRN (16:30)
[2016-11-11] MEDS ORDERED: GLUCAGON 1 MG INJ IM PRN (16:30)
[2016-11-11] MEDS ORDERED: GLUCOSE GEL 15 GRAM TUBE PO PRN ×2 (16:30)
[2016-11-11] MEDS ORDERED: GLUCOSE GEL 15 GRAM TUBE BUCCAL PRN (16:30)
[2016-11-11 16:42] LABS: LYMPHOCYTES # 0.8 10^3/ul (0.8-2.9); MONOCYTE # 1.1 10^3/ul (0.3-0.9); NEUTROPHIL # 10.8 10^3/ul (1.6-7.5)
[2016-11-11 16:44] LABS: TOXIC GRANULATION MODERATE
[2016-11-11] MEDS: SUCRALFATE 1 GM TAB PO SCH ×2 (17:00→22:07)
[2016-11-11] MEDS: INSULIN ASPART [NOVOLOG] 3 ML PEN SC SCH ×2 (17:00→21:00)
--- NOTE | 2016-11-11 17:00 | ERA ---
ER Documentation Chief Complaint Date/Time DATE: 11/11/16 TIME: 16:57 Chief Complaint RECTAL BLEEDING WITH GENERAL WEAKNESS AND SYNCOPAL EPISODE. HPI Detailed history is limited secondary to patient's clinical condition. This is a 41-year-old female with past medical history of HIV who was not on antiviral therapy who presents to the emergency room for evaluation of general weakness and rectal bleeding. The patient also had a syncopal episode at home and 911 was called to bring this patient in for evaluation. When I evaluated this patient as she did have blood on the sheets that she was lying on and does state that she is feeling extremely weak. I reviewed this patient's medical records and it appears that this patient does have a history of colitis with previous GI bleeds necessitating blood transfusion. ROS All systems reviewed and are negative except as per history of present illness. Medications Home Meds Active Scripts Sucralfate (Carafate) 1 Gm Tablet, 1 GM PO QID for 30 Days, TAB Prov:AYSHA VILLAREAL MD 08/26/16 Pantoprazole* (Pantoprazole*) 40 Mg Tablet., 40 MG PO BID@06,18 for 30 Days Prov:AYSHA VILLAREAL MD 08/26/16 Emtricitabine-Tenofovir* (Truvada*) 200-300 Mg Tab, 1 TAB PO DAILY for 30 Days, TAB Prov:AYSHA VILLAREAL MD 08/26/16 Efavirenz* (Sustiva*) 600 Mg Tab, 600 MG PO DAILY for 30 Days, TAB Prov:AYSHA VILLAREAL MD 08/26/16 Reported Medications Valganciclovir HCl (Valganciclovir HCl) 450 Mg Tablet, 450 MG PO Q12, TAB 08/25/16 Mesalamine (Lialda) 1.2 Gm Tablet.dr, 1.2 GM PO AC BREAKFAST 08/25/16 Atorvastatin* (Atorvastatin*) 40 Mg Tablet, 40 MG PO QHS, #30 TAB 08/25/16 Allergies Allergies: Coded Allergies: hydrocortisone (Verified Allergy, Unknown, 08/09/16) ibuprofen (Verified Allergy, Unknown, 08/09/16) PMhx/Soc History of Surgery: No Anesthesia Reaction: No Hx Neurological Disorder: Yes (ANEMIA) Hx Respiratory Disorders: Yes (PLEURAL EFFUSION W/R SIDED THORACENTESIS, RESP FAILURE) Hx Cardiac Disorders: Yes (HEMORRHAGIC SHOCK) Hx Psychiatric Problems: No Hx Miscellaneous Medical Probl: Yes (HIV,hep C,cachexia,noncompliance, cirrhosis,substance abuse) Hx Alcohol Use: No Hx Substance Use: Yes Hx Tobacco Use: Yes Smoking Status: Unknown if ever smoked Physical Exam Vitals Vital Signs Date Time Temp Pulse Resp B/P Pulse Ox O2 Delivery O2 Flow Rate FiO2 11/11/16 16:03 Nasal Cannula 2 11/11/16 15:07 111 26 96/57 96 Nasal Cannula 2.0 11/11/16 13:19 99.2 123 23 111/79 98 11/11/16 13:16 98.8 79 32 111/79 100 Physical Exam INITIAL VITAL SIGNS: Reviewed by me GENERAL: The patient is frail-appearing female, mild distress HEENT: Conjunctival pallor , pupils equal, round, and reactive to light. EOMI. There is no scleral icterus. NECK: C-spine is soft and supple, there is no meningismus. There is no cervical lymphadenopathy. LUNGS: Diminished bilaterally. There are no rales, wheezes or rhonchi. HEART: Tachycardic, no murmurs, clicks, rubs or gallops. ABDOMEN: Soft, non-tender, non-distended. There are bowel sounds in all four quadrants. No rebound or guarding. EXTREMITIES: There is no peripheral cyanosis or edema. No focal swelling or erythema. NEUROLOGICAL: The patient moves all four extremities with 5/5 strength. Cranial nerves II - XII are intact. Normal gait. 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 Result Diagram: 11/11/16 1420 11/11/16 1420 Results 24 hrs Laboratory Tests Test 11/11/16 13:53 11/11/16 14:20 11/11/16 14:30 Urine Color LT. YELLOW Urine Clarity CLEAR Urine pH 5.5 Urine Specific [place] 1.010 Urine Ketones NEGATIVE Urine Nitrite NEGATIVE Urine Bilirubin NEGATIVE Urine Urobilinogen 0.2 E.U./dL Urine Leukocyte Esterase NEGATIVE Urine Hemoglobin NEGATIVE Urine Glucose NEGATIVE% Urine Total Protein NEGATIVE White Blood Count 13.210^3/ul Red Blood Count 1.9010^6/ul Hemoglobin 4.6g/dl Hematocrit 15.9% Mean Corpuscular Volume 83.7fl Mean Corpuscular Hemoglobin 24.2pg Mean Corpuscular Hemoglobin Concent 28.9g/dl Red Cell Distribution Width 17.8% Platelet Count 7410^3/UL Mean Platelet Volume 11.6fl Neutrophils % 82.0% Band Neutrophils % 4.0% Lymphocytes % 6.0% Monocytes % 8.0% Eosinophils % % Neutrophils # 10.810^3/ul Lymphocytes # 0.810^3/ul Monocytes # 1.110^3/ul Eosinophils # 10^3/ul Differential Comment Toxic Granulation MODERATE Prothrombin Time 16.5Sec Prothrombin Time Ratio 1.3 INR International Normalized Ratio 1.32 Activated Partial Thromboplast Time 23.8Sec Sodium Level 127mmol/L Potassium Level 3.9mmol/L Chloride Level 100mmol/L Carbon Dioxide Level 27mmol/L Anion Gap 4 Blood Urea Nitrogen 40mg/dl Creatinine 0.71mg/dl Glucose Level 124mg/dl Lactic Acid Level 2.0mmol/L Calcium Level 6.5mg/dl Total Bilirubin 0.0mg/dl Direct Bilirubin 0.00mg/dl Indirect Bilirubin 0.0mg/dl Aspartate Amino Transf (AST/SGOT) 29IU/L Alanine Aminotransferase (ALT/SGPT) 43IU/L Alkaline Phosphatase 99IU/L Troponin I < 0.012ng/ml Total Protein 4.4g/dl Albumin 1.3g/dl Globulin 3.10g/dl Albumin/Globulin Ratio 0.41 Free Thyroxine 0.89ng/dl Current Medications Medications (Trade) Dose Ordered Sig/Dianne Route PRN Reason Start Time Stop Time Status Last Admin Dose Admin Sodium Chloride 1360 ml 1,360 ml BOLUS OVER 2 HOURS STAT IV* 11/11/16 14:21 11/11/16 14:22 DC 11/11/16 15:05 Vancomycin HCl 250 ml @ 125 mls/hr ONCE ONCE IVPB 11/11/16 14:30 11/11/16 16:29 DC 11/11/16 15:06 Piperacillin Sod/ Tazobactam Sod 100 ml @ 200 mls/hr ONCE STAT IVPB 11/11/16 14:21 11/11/16 14:50 DC 11/11/16 15:06 Sodium Chloride 250 ml @ 0 mls/hr Q0M ONCE IV 11/11/16 15:10 11/11/16 15:13 DC Pantoprazole 80 mg/Sodium Chloride 100 ml @ 400 mls/hr ONCE STAT IVPB 11/11/16 15:35 11/11/16 15:49 DC Octreotide Acetate 50 mcg/ Sodium Chloride 26 ml @ 100 mls/hr Q16M STAT IVPB 11/11/16 15:35 11/11/16 15:50 DC Octreotide Acetate/Sodium Chloride (Sandostatin/NS) 50 ml @ 5 mls/hr ONCE STAT IV 11/11/16 15:35 11/12/16 01:34 IV Flush (NS 3 ml) 3 ml PER PROTOCOL IV 11/11/16 16:00 Ondansetron HCl (Zofran Inj) 4 mg Q6H PRN IV NAUSEA AND/OR VOMITING 11/11/16 16:00 Acetaminophen (Tylenol Tab) 650 mg Q6H PRN PO PAIN LEVEL 1-3 OR FEVER 11/11/16 16:00 Acetaminophen/ Hydrocodone Bitart ([place] (5/325)) 1 tab Q6H PRN PO MODERATE PAIN LEVEL 4-6 11/11/16 16:00 Morphine Sulfate (morphine) 2 mg Q4H PRN IV SEVERE PAIN LEVEL 7-10 11/11/16 16:00 Docusate Sodium (Colace) 100 mg Q12H PRN PO CONSTIPATION 11/11/16 16:00 Magnesium Hydroxide (Milk Of Mag) 30 ml DAILY PRN PO CONSTIPATION 11/11/16 16:00 Sodium Biphosphate/ Sodium Phosphate (Fleet Enema) 133 ml DAILY PRN [place] CONSTIPATION 11/11/16 16:00 Pantoprazole (Protonix Iv) 40 mg BID IV 11/11/16 21:00 Lorazepam 0.5 mg 0.5 mg Q6H PRN IV ANXIETY 11/11/16 16:00 Sodium Chloride (NS) 1,000 ml @ 100 mls/hr Q10H IV 11/11/16 15:46 Albuterol/ Ipratropium (Duoneb) 3 ml Q4H RESP THERAPY PRN HHN SHORTNESS OF BREATH 11/11/16 16:00 Hydralazine HCl (Apresoline) 10 mg Q6H PRN IV ELEVATED BLOOD PRESSURE 11/11/16 16:00 Nitroglycerin (Nitroglycerin (Sl Tab) 0.4 Mg) 1 tab Q5M PRN SL ANGINA 11/11/16 16:00 Insulin Aspart (Novolog Insulin Pen) NOVOLOG *MILD* ALGORI... Q4 SC 11/11/16 17:00 Miscellaneous Information (* Miscellaneous Pharmacy Order) HYPOGLYCEMIA PROTOCOL w... ONCE ONCE XX 11/11/16 16:00 11/11/16 16:11 DC Miscellaneous Information (* Miscellaneous Pharmacy Order) Discontinue Glyburide, Glipizide,... ONCE ONCE XX 11/11/16 16:00 11/11/16 16:11 DC Miscellaneous Information (* Miscellaneous Pharmacy Order) Discontinue all previ... ONCE ONCE XX 11/11/16 16:00 11/11/16 16:11 DC Efavirenz (Sustiva) 600 mg DAILY PO 11/12/16 09:00 Emtricitabine/ Tenofovir (Truvada) 1 tab DAILY PO 11/12/16 09:00 Sucralfate (Carafate) 1 gm QID PO 11/11/16 17:00 Valganciclovir (Valcyte) 450 mg Q12 PO 11/11/16 21:00 Miscellaneous Information 1.2 gm 1.2 gm AC BREAKFAST PO 11/12/16 07:00 UNV Octreotide Acetate/Sodium Chloride (Sandostatin/NS) 50 ml @ 2.5 mls/hr Q20H IV 11/11/16 16:00 Miscellaneous Information 1 ea NOTE XX 11/11/16 16:30 Glucose (Glutose) 15 gm Q15M PRN PO DECREASED GLUCOSE 11/11/16 16:30 Glucose (Glutose) 22.5 gm Q15M PRN PO DECREASED GLUCOSE 11/11/16 16:30 Dextrose (D50w Syringe) 25 ml Q15M PRN IV DECREASED GLUCOSE 11/11/16 16:30 Dextrose (D50w Syringe) 50 ml Q15M PRN IV DECREASED GLUCOSE 11/11/16 16:30 Glucagon (Glucagen) 1 mg Q15M PRN IM DECREASED GLUCOSE 11/11/16 16:30 Glucose 15 gm 15 gm Q15M PRN BUCCAL DECREASED GLUCOSE 11/11/16 16:30 Sodium Chloride (NS) 1,000 ml @ 1,000 mls/hr Q1H STAT IV 11/11/16 16:24 11/11/16 17:23 Procedures/MDM EKG: Rate/Rhythm: Sinus tachycardia QRS, ST, T-waves: [No changes consistent w/ acute ischemia] Impression: [No evidence of ischemia or arrhythmia] Chest X-ray 1V Interpreted by me: Soft Tissue: No acute abnormalities Bones: No acute abnormalities Mediastinum/Cardiac Silhouette/Lungs: [No acute abnormalities] CT abdomen pelvis without: 1. Mild atelectasis at the left lung base posteriorly. 2. Small left pleural effusion. 3. Contracted gallbladder. 4. Right femoral vein catheter tip in the lower inferior vena cava. 5. Hughes catheter in the bladder. 6. Gaseous distension of the stomach. 7. Gas and fluid in the colon and mild diffuse thickening of the wall of the colon. This may indicate an inflammatory or infectious process. Clinical correlation is advised. 8. Otherwise unremarkable study. Central Line Placement by me: Patient consented, sterilely draped, full prep, gown, glove, mask, time out performed. Anesthesia: 1% lidocaine locally Location: Right femoral vein Device: Multiple lumen Technique: Seldinger technique. Secured with suture. Results: Venous return from all ports with easy saline flush. No complications. Guide wire retrieved and disposed of. [ED Ultrasound: Central line placed by me using concurrent ultrasound guidance. Real time image archived in the medical record confirms vascular anatomy. This 41-year-old female presents to the emergency room for evaluation of rectal bleeding, syncope, generalized weakness. When I evaluated this patient I did know she was pale, tachycardic, and she was complaining of extreme weakness. The patient does have a previous history of rectal hemorrhage. I did obtain blood work on this patient and blood work did show hemoglobin less than 5. This patient did have brown stool which is heme positive on my rectal examination. The patient remained tachycardic after 30 cc/kg of IV normal saline. The patient was started on somatostatin drip and was given a loading dose of somatostatin in the emergency room. This patient will be transfused 4 units of packed red blood cells. The patient will be placed in for admission into the intensive care unit at this time under the care of the panel physician Dr. Pressley. This patient's blood pressure is 106/71 no need for vasopressors at this time. Vancomycin and Zosyn were started for broad-spectrum coverage at this time. Initial lactic acid is normal. Critical Care: Excluding all billable procedures Time: 78 minutes Treatments/Evaluations: Close monitoring and treatment of unstable vital signs, cardiorespiratory, and neurologic status, while maintaining tight balance of fluid, respiratory, and cardiac interventions, multiple bedside re- evaluations, coordination nursing care, interpretation of EKG, interpretation of labs, review of previous medical records, contacting physicians Departure Diagnosis: Primary Impression: Rectal hemorrhage Additional Impressions: HIV disease Hyponatremia Normocytic anemia Thrombocytopenia Prerenal azotemia General weakness Condition: Critical DENILSON SHEIKH DO November 11, 2016 17:00
--- NOTE | 2016-11-11 17:39 | CONS ---
Date/Time of Note Date/Time of Note DATE: 11/11/16 TIME: 17:22 Assessment/Plan Assessment/Plan Additional Assessment/Plan Assessment * Anemia Lower GI bleed vs upper vs others * Colitis * History of EGD 08/25/2016 multiple erosions and gastric ulcers of stomach * History of HIV Plan * EGD and colonoscopy risk and benefut explained to patient and agreed with the procedure * monitor H and H q 6 and transfuse per protocol * PPI Consultation Date/Type/Reason Admit Date/Time Date of Consultation: November 11, 2016 Type of Consultation: gastroenterology Reason for Consultation anemia Referring Provider: JESUS RUIZ Hx of Present Illness 41 y/o female past medical history of HIV,colitis,previously admitted last August because anemia was brought to our emergency room complaining of hematochezia with associated body malaise and weakness.She claimed to have an episode of hematochezia occurring daily but minimal in amount,patient had also syncopal episode Emergency room course revealed anemia with hemoglobin 4.6 Ct abdomen pelvis revealed 1. Mild atelectasis at the left lung base posteriorly. 2. Small left pleural effusion. 3. Contracted gallbladder. 4. Right femoral vein catheter tip in the lower inferior vena cava. 5. Hughes catheter in the bladder. 6. Gaseous distension of the stomach. 7. Gas and fluid in the colon and mild diffuse thickening of the wall of the colon. This may indicate an inflammatory or infectious process. Clinical correlation is advised. 8. Otherwise unremarkable study. Presently no evidenced of hematochezia,presently transfusing blood.Patient denies any nausea,vomiting,but with vague abdominal pain Past Medical History Medical History: colitis, other (hiv) Past Surgical History Past Surgical Hx: other (EGD gstric ulcers) Family History Significant Family History: no pertinent family hx Social History Smoking Status: Unknown if ever smoked Exam/Review of Systems Vital Signs Vitals Vital Signs Date Time Temp Pulse Resp B/P Pulse Ox O2 Delivery O2 Flow Rate FiO2 11/11/16 16:03 Nasal Cannula 2 11/11/16 15:07 111 26 96/57 96 11/11/16 13:19 99.2 Exam Constitutional: alert, frail Head: atraumatic, normocephalic Eyes: nl sclera Neck: non-tender, supple Respiratory: clear to auscultation, normal air movement Cardiovascular: nl pulses, regular rate and rhythm Gastrointestinal: non-tender, soft, No rebound or guarding Musculoskeletal: nl extremities to inspection, nl gait and stance Extremities: normal pulses Neurological: nl mental status, nl speech, nl strength Skin: nl turgor, No rash or lesions Results Result Diagram: 11/11/16 1420 11/11/16 1420 Results 24 hrs Laboratory Tests Test 11/11/16 13:53 11/11/16 14:20 11/11/16 14:30 Urine Color LT. YELLOW Urine Clarity CLEAR Urine pH 5.5 Urine Specific [place] 1.010 Urine Ketones NEGATIVE Urine Nitrite NEGATIVE Urine Bilirubin NEGATIVE Urine Urobilinogen 0.2 E.U./dL Urine Leukocyte Esterase NEGATIVE Urine Hemoglobin NEGATIVE Urine Glucose NEGATIVE Urine Total Protein NEGATIVE White Blood Count 13.2 #H Red Blood Count 1.90 #L Hemoglobin 4.6 #*L Hematocrit 15.9 #L Mean Corpuscular Volume 83.7 Mean Corpuscular Hemoglobin 24.2 #L Mean Corpuscular Hemoglobin Concent 28.9 L Red Cell Distribution Width 17.8 H Platelet Count 74 #L Mean Platelet Volume 11.6 #H Neutrophils % 82.0 H Band Neutrophils % 4.0 Lymphocytes % 6.0 L Monocytes % 8.0 Eosinophils % Neutrophils # 10.8 H Lymphocytes # 0.8 Monocytes # 1.1 H Eosinophils # Differential Comment Toxic Granulation MODERATE Prothrombin Time 16.5 H Prothrombin Time Ratio 1.3 INR International Normalized Ratio 1.32 Activated Partial Thromboplast Time 23.8 L Sodium Level 127 L Potassium Level 3.9 Chloride Level 100 Carbon Dioxide Level 27 Anion Gap 4 L Blood Urea Nitrogen 40 H Creatinine 0.71 Glucose Level 124 Lactic Acid Level 2.0 Calcium Level 6.5 L Total Bilirubin 0.0 L Direct Bilirubin 0.00 Indirect Bilirubin 0.0 Aspartate Amino Transf (AST/SGOT) 29 Alanine Aminotransferase (ALT/SGPT) 43 Alkaline Phosphatase 99 Troponin I < 0.012 Total Protein 4.4 L Albumin 1.3 L Globulin 3.10 Albumin/Globulin Ratio 0.41 Free Thyroxine 0.89 Medications Medications Current Medications Ondansetron HCl (Zofran Inj) 4 mg Q6H PRN IV NAUSEA AND/OR VOMITING; Start at 16:00 Acetaminophen (Tylenol Tab) 650 mg Q6H PRN PO PAIN LEVEL 1-3 OR FEVER; Start at 16:00 Acetaminophen/ Hydrocodone Bitart ([place] (5/325)) 1 tab Q6H PRN PO MODERATE PAIN LEVEL 4-6; Start 11/11/16 at 16:00 Morphine Sulfate (morphine) 2 mg Q4H PRN IV SEVERE PAIN LEVEL 7-10; Start 11/11 at 16:00 Docusate Sodium (Colace) 100 mg Q12H PRN PO CONSTIPATION; Start 11/11/16 at 16: 00 Magnesium Hydroxide (Milk Of Mag) 30 ml DAILY PRN PO CONSTIPATION; Start at 16:00 Sodium Biphosphate/ Sodium Phosphate (Fleet Enema) 133 ml DAILY PRN [place] CONSTIPATION; Start 11/11/16 at 16:00 Pantoprazole (Protonix Iv) 40 mg BID IV ; Start 11/11/16 at 21:00 Lorazepam 0.5 mg 0.5 mg Q6H PRN IV ANXIETY; Start 11/11/16 at 16:00 Sodium Chloride (NS) 1,000 ml @ 100 mls/hr Q10H IV ; Start 11/11/16 at 15:46 Hydralazine HCl (Apresoline) 10 mg Q6H PRN IV ELEVATED BLOOD PRESSURE; Start at 16:00 Nitroglycerin (Nitroglycerin (Sl Tab) 0.4 Mg) 1 tab Q5M PRN SL ANGINA; Start at 16:00 Insulin Aspart (Novolog Insulin Pen) NOVOLOG *MILD* ALGORI... Q4 SC ; Start at 17:00 Efavirenz (Sustiva) 600 mg DAILY PO ; Start 11/12/16 at 09:00 Emtricitabine/ Tenofovir (Truvada) 1 tab DAILY PO ; Start 11/12/16 at 09:00 Sucralfate (Carafate) 1 gm QID PO ; Start 11/11/16 at 17:00 Valganciclovir 450 mg 450 mg Q12 PO ; Start 11/11/16 at 21:00 Octreotide Acetate/Sodium Chloride (Sandostatin/NS) 50 ml @ 2.5 mls/hr Q20H IV ; Start 11/11/16 at 16:00 Miscellaneous Information 1 ea NOTE XX ; Start 11/11/16 at 16:30 Glucose (Glutose) 15 gm Q15M PRN PO DECREASED GLUCOSE; Start 11/11/16 at 16:30 Glucose (Glutose) 22.5 gm Q15M PRN PO DECREASED GLUCOSE; Start 11/11/16 at 16: 30 Dextrose (D50w Syringe) 25 ml Q15M PRN IV DECREASED GLUCOSE; Start 11/11/16 at 16:30 Dextrose (D50w Syringe) 50 ml Q15M PRN IV DECREASED GLUCOSE; Start 11/11/16 at 16:30 Glucagon (Glucagen) 1 mg Q15M PRN IM DECREASED GLUCOSE; Start 11/11/16 at 16:30 Glucose (Glutose) 15 gm Q15M PRN BUCCAL DECREASED GLUCOSE; Start 11/11/16 at 16 :30 LM LAMB MD November 11, 2016 17:33
[2016-11-11] MEDS ORDERED: BISACODYL (EC) 5 MG TAB PO ONE (18:00)
[2016-11-11 18:30] VITALS: TEMP 97.2
--- NOTE | 2016-11-11 19:33 | HP ---
DATE OF ADMISSION: 11/11/2016 CHIEF COMPLAINT: Rectal bleeding and generalized weakness. HISTORY OF PRESENT ILLNESS: A 41-year-old female with past medical history of HIV, not on antiretro viral therapy apparently who presented with generalized weakness and rectal bleeding. Most of the i nformation obtained from ER documentation as the patient is presently unable to provide full HPI at this time. Apparently the patient had a syncopal event at home as well and 911 was called. The pat ie was brought in for evaluation. When patient was in the ER, there was blood noted on the sheets when she was lying down. She is feeling weak and again she does have history of colitis in the pas t and prior GI bleed in the past. When she came in this time, her hemoglobin was found to be 4.6 an d she was started on 4 units of PRBC transfusion as well. Full review systems could not be obtained at this time. PAST MEDICAL HISTORY: As stated above. Prior pleural effusion with right-sided thoracentesis in th e past, prior respiratory failure in the past and anemia. ALLERGIES: 1. HYDROCORTISONE. 2. IBUPROFEN. HOME MEDICINES: Based on the records: 1. Sustiva 600 mg daily. 2. Truvada 1 tablet daily. 3. Valganciclovir 450 mg q.12h. 4. Atorvastatin 40 mg at bedtime. 5. Mesalamine 1.2 grams with breakfast. 6. Protonix 40 mg b.i.d. 7. Carafate 1 gram p.o. q.i.d. SOCIAL HISTORY: Apparently positive for some kind of substance abuse and smoking history. No alcoh ol use. PHYSICAL EXAMINATION: VITAL SIGNS: T-max 99.2, pulse 79 to 123, respirations 23 to 32, blood pressure is 111/79, saturati ng at 98% nasal cannula. GENERAL: The patient is lying in bed, frail-appearing female in mild distress. HEENT: There is some pallor noted on the conjunctiva, otherwise pupils equal, round, react to light . Extraocular muscles intact. NECK: Supple, no thyromegaly. LUNGS: Decreased breath sounds bilaterally. CARDIOVASCULAR: Tachycardic, heart rate. No rubs or gallops. ABDOMEN: Soft, nontender, nondistended. Normal bowel sounds. No rebound or guarding. MUSCULOSKELETAL: No lower extremity edema bilaterally. NEUROLOGIC: Unable to fully assess. LABORATORIES: WBC 13.2, hemoglobin 4.6, hematocrit 15.9, platelets of 74. Sodium 127, potassium 3. 9, chloride 100, CO2 27, BUN 40, creatinine 0.71, glucose 124. IMAGING: CT abdomen and pelvis was performed, which showed a contracted gallbladder, small left ple ural effusion. There is gas and fluid in the colon and mild diffuse thickening of the wall of the c olon, may indicate an inflammatory infectious process. ASSESSMENT AND PLAN: A 41-year-old female coming in with generalized weakness and rectal bleeding w ith severe anemia with a prior history of human immunodeficiency virus. 1. Anemia, again, the patient in the ICU given the severe anemia and the lethargy the patient has. Aggressive IV fluid hydration, 4 units of PRBC transfusion. Follow up TSH, A1c and lipid panel in the morning. Pain control medications as needed. Follow up GI consult as well. The patient may be nefit from upper or lower endoscopy. We will discuss with GI team. Monitor her hemoglobin every 6 hours as well and continue PPI. 2. History of HIV, check TSH, and lipid panel. Continue antiretroviral medications as well. 3. Generalized weakness secondary to #1. Continue to follow up plans on #1. 4. Gastrointestinal prophylaxis, continue PPI. 5. Deep venous thrombosis prophylaxis. SCDs, avoid all anticoagulants given the patient's severe a nemia. Dictated By: JESUS FORTE Conf#: [id number] DID#: [id number]
[2016-11-11 20:00] VITALS: BP 107/82; PULSE 95; RESP 20
[2016-11-11] MEDS ORDERED: MAGNESIUM CITRATE 300 ML BTL PO ONE (20:00)
[2016-11-11 21:00] VITALS: BP 103/80; PULSE 92; RESP 19
[2016-11-11] MEDS ORDERED: PANTOPRAZOLE 40 MG INJ IV SCH (21:00)
[2016-11-11] MEDS: PANTOPRAZOLE IV 80 MG in SOD CHLORIDE 0.9% 100 ML IV SCH (21:45)
[2016-11-11 22:00] VITALS: BP 108/79; PULSE 98; RESP 18
[2016-11-11] MEDS ORDERED: POLYETHYLENE GLYCOL 3350 119 GM POWDER PO ONE (22:00)
[2016-11-11] MEDS: DEXTROSE 50% 50 ML SYRINGE IV PRN (22:04)
[2016-11-11] MEDS: VALGANCICLOVIR 450 MG TAB PO SCH (22:07)
[2016-11-11] MEDS: morphine 4 MG/ML VIAL IV PRN (22:39)
[2016-11-11 23:00] VITALS: BP 115/85; PULSE 93; RESP 27
[2016-11-12] VITALS (24 sets, daily range): BP systolic 100–130; BP diastolic 72–101; PULSE 83–103; RESP 13–32
[2016-11-12] MEDS: DEXTROSE 5%-0.9% NACL 1,000 ML IV SCH ×3 (00:36→11:46)
[2016-11-12] MEDS ORDERED: PENDING SANTYL ORDER FOR WOUND CARE XX PRN (01:00)
[2016-11-12] MEDS: INSULIN ASPART [NOVOLOG] 3 ML PEN SC SCH ×6 (01:24→21:00)
[2016-11-12 01:44] LABS: HEMATOCRIT 36.2 % (37.0-47.0); HEMOGLOBIN 11.9 g/dl (12.0-16.0)
[2016-11-12] MEDS ORDERED: SOD CHLORIDE 0.9% 500 ML IV ONE (03:00)
[2016-11-12] MEDS: ALBUMIN HUMAN 25% 100 ML IV SCH ×3 (03:21→18:44)
[2016-11-12] MEDS: morphine 4 MG/ML VIAL IV PRN ×2 (05:55→21:13)
[2016-11-12] MEDS: PANTOPRAZOLE IV 80 MG in SOD CHLORIDE 0.9% 100 ML IV SCH ×2 (05:55→16:08)
[2016-11-12] MEDS ORDERED: POLYETHYLENE GLYCOL 3350 119 GM POWDER PO ONE (06:00)
[2016-11-12 06:44] LABS: ADD SCAN DIFF NO
[2016-11-12 06:52] LABS: ABNORMAL IP MESSAGE 1; HEMOGLOBIN 10.5 g/dl (12.0-16.0); MEAN CORPUSCULAR HEMOGLOBIN 26.9 pg (29.0-33.0); MEAN CORPUSCULAR HGB CONC 32.8 g/dl (32.0-37.0); MEAN CORPUSCULAR VOLUME 82.1 fl (82.0-101.0); MEAN PLATELET VOLUME 10.8 fl (7.4-10.4); PLATELET COUNT 37 10^3/UL (140-415); RED CELL DISTRIBUTION WIDTH 15.3 % (11.5-14.5); WHITE BLOOD COUNT 8.1 10^3/ul (4.8-10.8)
[2016-11-12 07:49] LABS: CREATININE 0.6 mg/dl (0.44-1.00); HDL CHOLESTEROL 8 mg/dl (34-88); TRIGLYCERIDES 157 mg/dl (0-149)
[2016-11-12 07:50] LABS: CALCIUM 6.5 mg/dl (8.4-10.2); MAGNESIUM 2.7 mg/dl (1.7-2.5); PHOSPHORUS 3.2 mg/dl (2.5-4.9)
[2016-11-12 07:52] LABS: CHOLESTEROL < 50 mg/dl (100-200)
[2016-11-12 07:58] LABS: POTASSIUM 2.7 mmol/L (3.5-5.1)
[2016-11-12] MEDS ORDERED: BISACODYL (EC) 5 MG TAB PO ONE (08:00)
[2016-11-12 08:17] LABS: LYMPHOCYTES # 0.6 10^3/ul (0.8-2.9); MONOCYTE # 0.1 10^3/ul (0.3-0.9); MYELOCYTES # 0.1; NEUTROPHIL # 5.9 10^3/ul (1.6-7.5)
[2016-11-12 08:18] LABS: PLATELET ESTIMATE PLT APPEAR DECREASED
[2016-11-12 08:29] LABS: THYROID STIMULATING HORMONE 0.274 MIU/L (0.465-4.680)
[2016-11-12] MEDS: SUCRALFATE 1 GM TAB PO SCH ×4 (08:36→21:11)
[2016-11-12] MEDS: EFAVIRENZ 600 MG TAB PO SCH (08:36)
[2016-11-12] MEDS: EMTRICITABINE/TENOFOVIR TAB PO SCH (08:37)
[2016-11-12] MEDS: VALGANCICLOVIR 450 MG TAB PO SCH ×2 (08:37→21:11)
[2016-11-12] MEDS: POTASSIUM CHLORIDE 250 ML IVPB SCH ×2 (08:47→12:36)
--- NOTE | 2016-11-12 10:37 | PN ---
Date/Time of Note Date/Time of Note DATE: 11/12/16 TIME: 10:33 Assessment/Plan VTE Prophylaxis VTE Prophylaxis Intervention: SCD's Lines/Catheters IV Catheter Type (from [facility]): Central Line Central line still needed: Yes Urinary Cath still in place: Yes Reason Cath still needed: urinary retention Assessment/Plan Chief Complaint/Hosp Course ASSESSMENT AND PLAN: 41-year-old female coming in with generalized weakness and rectal bleeding with severe anemia with a prior history of human immunodeficiency virus. 1. Anemia - s/p pRBC transfusion x 4. + LGI bleeding still. - continue ICU given the severe anemia and the lethargy the patient has. - Aggressive IV fluid hydration - Pain control medications as needed. - per GI consult - for EGD/colonscopy - Monitor her hemoglobin every 6 hours as well and continue PPI. 2. History of HIV - pt states she has not been taking HAART meds for the last few mths - Continue antiretroviral medications as well. - will check CD4 ct and HIV VL, get ID consult as well 3. Generalized weakness secondary to #1. Continue to follow up plans on #1. 4. Gastrointestinal prophylaxis, continue PPI. 5. Deep venous thrombosis prophylaxis. SCDs, avoid all anticoagulants given the patient's severe anemia. Critical care time spent with pt care today = 45 min. Problems: Subjective 24 Hr Interval Summary Free Text/Dictation Pt seen by GI team, received pRBC transfusion yesterday, still + LGI bleed however. Exam/Review of Systems Vital Signs Vitals Vital Signs Date Time Temp Pulse Resp B/P Pulse Ox O2 Delivery O2 Flow Rate FiO2 11/12/16 10:00 88 17 119/90 98 Nasal Cannula 2.0 11/12/16 08:00 97.4 Intake and Output 11/11/16 11/11/16 11/12/16 15:00 23:00 07:00 Intake Total 1662.5 ml 2070 ml Output Total 290 ml 780 ml Balance 1372.5 ml 1290 ml Exam GENERAL: The patient is lying in bed, frail-appearing female answers questions , but lethargic HEENT: There is some pallor noted on the conjunctiva, otherwise pupils equal, round, react to light. Extraocular muscles intact. NECK: Supple, no thyromegaly. LUNGS: Decreased breath sounds bilaterally. CARDIOVASCULAR: Tachycardic, heart rate. No rubs or gallops. ABDOMEN: Soft, nontender, nondistended. Normal bowel sounds. No rebound or guarding. MUSCULOSKELETAL: No lower extremity edema bilaterally. NEUROLOGIC: no focal deficits Results Result Diagram: 11/12/16 0530 11/12/16 0530 Results 24 hrs Laboratory Tests Test 11/11/16 13:53 11/11/16 14:20 11/11/16 14:30 11/11/16 17:31 Urine Color LT. YELLOW Urine Clarity CLEAR Urine pH 5.5 Urine Specific [place] 1.010 Urine Ketones NEGATIVE Urine Nitrite NEGATIVE Urine Bilirubin NEGATIVE Urine Urobilinogen 0.2 E.U./dL Urine Leukocyte Esterase NEGATIVE Urine Hemoglobin NEGATIVE Urine Glucose NEGATIVE Urine Total Protein NEGATIVE White Blood Count 13.2 #H Red Blood Count 1.90 #L Hemoglobin 4.6 #*L Hematocrit 15.9 #L Mean Corpuscular Volume 83.7 Mean Corpuscular Hemoglobin 24.2 #L Mean Corpuscular Hemoglobin Concent 28.9 L Red Cell Distribution Width 17.8 H Platelet Count 74 #L Mean Platelet Volume 11.6 #H Neutrophils % 82.0 H Band Neutrophils % 4.0 Lymphocytes % 6.0 L Monocytes % 8.0 Eosinophils % Neutrophils # 10.8 H Lymphocytes # 0.8 Monocytes # 1.1 H Eosinophils # Differential Comment Toxic Granulation MODERATE Prothrombin Time 16.5 H Prothrombin Time Ratio 1.3 INR International Normalized Ratio 1.32 Activated Partial Thromboplast Time 23.8 L Sodium Level 127 L Potassium Level 3.9 Chloride Level 100 Carbon Dioxide Level 27 Anion Gap 4 L Blood Urea Nitrogen 40 H Creatinine 0.71 Glucose Level 124 Lactic Acid Level 2.0 Calcium Level 6.5 L Total Bilirubin 0.0 L Direct Bilirubin 0.00 Indirect Bilirubin 0.0 Aspartate Amino Transf (AST/SGOT) 29 Alanine Aminotransferase (ALT/SGPT) 43 Alkaline Phosphatase 99 Troponin I < 0.012 Total Protein 4.4 L Albumin 1.3 L Globulin 3.10 Albumin/Globulin Ratio 0.41 Free Thyroxine 0.89 Bedside Glucose 74 Test 11/11/16 19:50 11/11/16 22:00 11/11/16 22:07 11/11/16 22:24 Lactic Acid Level 1.0 0.9 Bedside Glucose 69 L 192 Test 11/11/16 22:44 11/12/16 01:10 11/12/16 01:30 11/12/16 04:32 Bedside Glucose 99 152 141 Hemoglobin 11.9 #L Hematocrit 36.2 #L Test 11/12/16 05:30 11/12/16 05:34 11/12/16 08:44 White Blood Count 8.1 # Red Blood Count 3.90 #L Hemoglobin 10.5 L Hematocrit 32.0 L Mean Corpuscular Volume 82.1 Mean Corpuscular Hemoglobin 26.9 L Mean Corpuscular Hemoglobin Concent 32.8 Red Cell Distribution Width 15.3 H Platelet Count 37 #L Mean Platelet Volume 10.8 H Neutrophils % 73.0 Band Neutrophils % 11.0 H Lymphocytes % 7.0 L Monocytes % 1.0 Eosinophils % Basophils % Metamyelocytes % 7.0 H Myelocytes % 1.0 H Nucleated Red Blood Cells % 3.0 H Neutrophils # 5.9 Lymphocytes # 0.6 L Monocytes # 0.1 L Eosinophils # Basophils # Metamyelocytes # 0.6 Myelocytes # 0.1 Nucleated Red Blood Cells # Differential Comment MANUAL DIFF Platelet Estimate PLT APPEAR DECREASED Sodium Level 138 Potassium Level 2.7 *L Chloride Level 109 Carbon Dioxide Level 24 Anion Gap 8 Blood Urea Nitrogen 27 #H Creatinine 0.60 Glucose Level 153 Hemoglobin A1c 5.5 Calcium Level 6.5 L Phosphorus Level 3.2 Magnesium Level 2.7 H Triglycerides Level 157 H Cholesterol Level < 50 L LDL Cholesterol, Calculated HDL Cholesterol 8 L Cholesterol/HDL Ratio Thyroid Stimulating Hormone (TSH) 0.274 L Lab Scanned Report BLOOD TRANSFUSION Bedside Glucose 96 Medications Medications Current Medications Ondansetron HCl (Zofran Inj) 4 mg Q6H PRN IV NAUSEA AND/OR VOMITING; Start at 16:00 Acetaminophen (Tylenol Tab) 650 mg Q6H PRN PO PAIN LEVEL 1-3 OR FEVER; Start at 16:00 Acetaminophen/ Hydrocodone Bitart ([place] (5/325)) 1 tab Q6H PRN PO MODERATE PAIN LEVEL 4-6; Start 11/11/16 at 16:00 Docusate Sodium (Colace) 100 mg Q12H PRN PO CONSTIPATION; Start 11/11/16 at 16: 00 Magnesium Hydroxide (Milk Of Mag) 30 ml DAILY PRN PO CONSTIPATION; Start at 16:00 Sodium Biphosphate/ Sodium Phosphate (Fleet Enema) 133 ml DAILY PRN SD CONSTIPATION; Start 11/11/16 at 16:00 Lorazepam (Ativan) 0.5 mg Q6H PRN IV ANXIETY; Start 11/11/16 at 16:00 Hydralazine HCl (Apresoline) 10 mg Q6H PRN IV ELEVATED BLOOD PRESSURE; Start at 16:00 Nitroglycerin (Nitroglycerin (Sl Tab) 0.4 Mg) 1 tab Q5M PRN SL ANGINA Last administered on 11/11/16 23:25; Admin Dose 1 TAB; Start 11/11/16 at 16:00 Insulin Aspart (Novolog Insulin Pen) NOVOLOG *MILD* ALGORI... Q4 SC Last administered on 11/12/16 04:33; Admin Dose 1 UNIT; Start 11/11/16 at 17:00 Efavirenz (Sustiva) 600 mg DAILY PO ; Start 11/12/16 at 09:00 Emtricitabine/ Tenofovir (Truvada) 1 tab DAILY PO ; Start 11/12/16 at 09:00 Sucralfate (Carafate) 1 gm QID PO Last administered on 11/11/16 22:07; Admin Dose 1 GM; Start 11/11/16 at 17:00 Valganciclovir (Valcyte) 450 mg Q12 PO Last administered on 11/11/16 22:07; Admin Dose 450 MG; Start 11/11/16 at 21:00 Mesalamine (Delzicol Dr) 400 mg TID PO ; Start 11/12/16 at 13:00 Miscellaneous Information 1 ea NOTE XX ; Start 11/11/16 at 16:30 Glucose (Glutose) 15 gm Q15M PRN PO DECREASED GLUCOSE; Start 11/11/16 at 16:30 Glucose (Glutose) 22.5 gm Q15M PRN PO DECREASED GLUCOSE; Start 11/11/16 at 16: 30 Dextrose (D50w Syringe) 25 ml Q15M PRN IV DECREASED GLUCOSE Last administered on 11/11/16 22:04; Admin Dose 25 ML; Start 11/11/16 at 16:30 Dextrose (D50w Syringe) 50 ml Q15M PRN IV DECREASED GLUCOSE; Start 11/11/16 at 16:30 Glucagon (Glucagen) 1 mg Q15M PRN IM DECREASED GLUCOSE; Start 11/11/16 at 16:30 Glucose 15 gm 15 gm Q15M PRN BUCCAL DECREASED GLUCOSE; Start 11/11/16 at 16:30 Pantoprazole/ Sodium Chloride (Protonix Iv/NS) 100 ml @ 10 mls/hr Q10H IV Last administered on 11/12/16 05:55; Admin Dose 10 MLS/HR; Start 11/11/16 at 21 :30 Morphine Sulfate 4 mg 4 mg Q4H PRN IV SEVERE PAIN LEVEL 7-10 Last administered on 11/12/16 05:55; Admin Dose 4 MG; Start 11/11/16 at 22:15 Dextrose/Sodium Chloride (D5-NS) 1,000 ml @ 100 mls/hr Q10H IV Last administered on 11/12/16 00:36; Admin Dose 100 MLS/HR; Start 11/11/16 at 22:10 Miscellaneous Information This patient palacio... PRN PRN XX WOUND CARE; Start 11/12 at 01:00 Albumin Human 100 ml @ 100 mls/hr Q8H IV Last administered on 11/12/16 03:21 ; Admin Dose 100 MLS/HR; Start 11/12/16 at 03:00; Stop 11/12/16 at 19:59 Potassium Chloride (KCl 40 MEQ/250 ML NS) 250 ml @ 62.5 mls/hr Q4H IVPB Last administered on 11/12/16 08:47; Admin Dose 62.5 MLS/HR; Start 11/12/16 at 08:30 ; Stop 11/12/16 at 16:29 JESUS RUIZ November 12, 2016 10:37
[2016-11-12] MEDS ORDERED: COLLAGENASE 30 GM TUBE TOP PRN (12:00)
[2016-11-12] MEDS ORDERED: LIDOCAINE 1% (MPF) 5 ML VIAL SC ONE (12:00)
--- NOTE | 2016-11-12 12:56 | RADRPT ---
Echocardiogram Report Patient Name: TIFFANIE ARREOLA Gender: Female Date: 1975 Study Date: 11-Nov-2016 Item Repair Manager: Radha [facility] Location: [facility] Ref. Physician: JESUS RUIZ Quality: Technically Difficult Study Procedures: Transthoracic echocardiogram with complete 2D, M-Mode, and doppler examination. Indications: Shortness of breath. 2D/M Mode Doppler Measurement Value Normal Ranges Measurement Value Normal Ranges LVIDd 2D 3.0 3.5 - 5.6 cm AV Peak Ken 0.9 m/sec LVIDs 2D 2.5 2.1 - 4.1 cm AV Peak PG 3.2 mmHg LVPWd 2D 0.9 0.6 - 1.1 cm LVOT Peak Ken 0.9 m/sec IVSd 2D 0.8 0.6 - 1.1 cm LVOT Peak PG 3.1 mmHg AoR Diam 2D 2.1 2.0 - 3.7 cm MV E Peak Ken 0.5 m/sec EDV 2D 34.6 cm3 MV A Peak Ken 0.7 m/sec ESV 2D 16.0 cm3 MV E/A 0.8 LA Dimen 2D 2.6 2.3 - 4.0 cm MV Decel Time 164 msec MV Decel [place] 3 MV E/A 0.8 TR Peak Ken 2.2 m/sec TR Peak PG 20.0 mmHg RVSP 28.0 mmHg Findings Left Ventricle: Overall, normal left ventricular systolic function. Not all segments visualized. Normal left ventricular cavity size. Normal left ventricular wall thickness. Ejection fraction is visually estimated at 65 %. Tissue Doppler/Mitral Doppler indices are consistent with impaired relaxation (Stage I diastolic dysfunction). Right Ventricle: Normal right ventricular size. Normal right ventricular systolic function. Left Atrium: The left atrium is normal in size. Right Atrium: The right atrium is normal in size. Mitral Valve: Mild mitral leaflet calcification. Trace mitral regurgitation. Aortic Valve: No significant aortic stenosis or insufficiency. Aortic valve not well visualized. Tricuspid Valve: Tricuspid valve not well visualized. Estimated peak PA systolic pressure 28 mmHg. There is trace tricuspid regurgitation. Pulmonic Valve: Pulmonic valve not well visualized. There is trace pulmonic regurgitation. Pericardium: Normal pericardium with no significant pericardial effusion. Aorta: Normal aortic root. IVC: Normal size and poor respiratory collapse consistent with elevated right atrial pressure. Conclusions 1.Overall, normal left ventricular systolic function. Not all segments visualized. Normal left ventricular cavity size. Normal left ventricular wall thickness. Ejection fraction is visually estimated at 65 %. Tissue Doppler/Mitral Doppler indices are consistent with impaired relaxation (Stage I diastolic dysfunction). 2.Normal right ventricular size. Normal right ventricular systolic function. 3.The left atrium is normal in size. 4.The right atrium is normal in size. 5.No significant valvular stenosis or regurgitation seen. 6.Normal pericardium with no significant pericardial effusion. Electronically Signed By: Diego Nunez 12-Nov-2016 12:55:32 -0700 Patient Name: TIFFANIE ARREOLA Study Date: 11-Nov-2016 [id number]
[2016-11-12] MEDS ORDERED: MESALAMINE (EC) 400 MG CAP PO SCH (13:00)
--- NOTE | 2016-11-12 13:23 | CONS ---
DATE OF ADMISSION: 11/11/2016 DATE OF CONSULTATION: 11/12/2016 TYPE OF CONSULTATION: Infectious Disease. REASON FOR CONSULTATION: Antibiotic management. HISTORY OF PRESENT ILLNESS: Kiley serving a 41-year-old female who comes in with rectal bleeding and generalized weakness. Past problems include: 1. HIV, not on any antiretroviral therapy. 2. She presents with weakness and rectal bleeding. 3. The patient had a syncopal event at home, 911 was called. 4. There was blood noted on the sheets. Her hemoglobin was 4.6. PAST MEDICAL HISTORY: Otherwise unknown. She had a prior pleural effusion with right-sided thorace ntesis in the past. Prior respiratory failure in the past, as well as anemia. FAMILY HISTORY: Noncontributory. SOCIAL HISTORY: She is positive for substance abuse and smoking in the past. ALLERGIES: INCLUDE: 1. HYDROCORTISONE. 2. IBUPROFEN. MEDICATIONS: 1. Sustiva and Truvada, which would be Atripla as 1 pill. 2. Valganciclovir 450 mg q.12h. 3. She has hyperlipidemia and is on atorvastatin as well. REVIEW OF SYSTEMS: Noncontributory. PHYSICAL EXAMINATION: GENERAL: The patient is a frail-appearing, sickly looking female in mild distress. VITAL SIGNS: Stable. She is afebrile. SKIN: Without generalized rash. She is quite pale. HEENT: Within normal limits. NECK: Supple. LYMPH NODES: None palpable. CHEST: Decreased breath sounds at the bases. HEART: Without murmur or gallop. She is tachycardic. ABDOMEN: Soft, nontender, without organosplenomegaly or masses. EXTREMITIES: Without cyanosis, clubbing, or edema. RECTAL AND GENITAL: Deferred. NEUROLOGIC EVALUATION: No focal neurological abnormalities. LABORATORIES: As noted, her white count was 13.2, H and H 4.6/15.9, platelet count 74,000. BUN and creatinine 40/0.71. IMAGING: A CT scan of the abdomen and pelvis showed contracted gallbladder, small pleural effusion on the left. There is gas and fluid in the colon and mild diffuse thickening of the wall of the col on which may indicate an inflammatory infectious process. IN SUMMARY: The patient comes in with a history of HIV, generalized weakness and significant rectal bleeding. She is anemic and needs aggressive hydration and 4 units of packed red blood cells were ordered. Her HIV medications are appropriate, and when she is able, she should resume those. She h as gram-negative rods in her urine. Her white count today is 8.1. A urine was negative for nitrite s and leukocyte esterase. She is currently on her antiretroviral medication. She had a dose of van comycin and Zosyn. I am not sure that the gram-negative rods in her urine are significant, but she did receive Zosyn as noted. We will await the reports. [facility] Dictated By: GINNY ESPINOZA MD, JD/SHILPA Conf#: [id number] DID#: [id number]
[2016-11-12] MEDS ORDERED: SOD CHLORIDE 0.9% 100 ML ONE (13:52)
--- NOTE | 2016-11-12 14:07 | RADRPT ---
PROCEDURE: XR Chest. CLINICAL INDICATION: Respiratory distress. TECHNIQUE: AP view of the chest was performed. COMPARISON: November 11, 2016 FINDINGS: There has been placement of left PICC line with the tip at the RA/SVC junction. This line is in goo d positioning and ready for use. The lung johns remain clear. The heart size is normal. The osse ous structures are intact. There are gas-filled loops of stomach and likely: Again noted. IMPRESSION: Left PICC line in good positioning and ready for use. Otherwise unremarkable exam. No interval cruz nge. RPTAT: QQ. .Flavia Reardon MD, MD Date Time Electronically viewed and signed by .Flavia Reardon MD, MD on 11/12/2016 14:06 .F/
--- NOTE | 2016-11-12 14:36 | RADRPT ---
PROCEDURE: US guidance for PICC line CLINICAL INDICATION: PICC line placement TECHNIQUE: Multiple real-time images were acquired of the patient's arm utilizing a high resolutio n transducer. This was performed by the PICC line nurse for venous access. COMPARISON: None FINDINGS: Ultrasound guidance for PICC line placement. IMPRESSION: Ultrasound guidance for PICC line placement. RPTAT: AA .Jonathan Paris MD, MD Date Time Electronically viewed and signed by .Jonathan Paris MD, on 11/12/2016 14:36 .S/
[2016-11-12 14:54] LABS: HEMATOCRIT 27.9 % (37.0-47.0); HEMOGLOBIN 9.2 g/dl (12.0-16.0)
[2016-11-12] MEDS: COLLAGENASE 30 GM TUBE TOP SCH (15:08)
[2016-11-12 15:14] LABS: WHITE BLOOD COUNT 13.2 10^3/ul (4.8-10.8)
[2016-11-12] MEDS ORDERED: MIDAZOLAM 1 MG/ML 2 ML INJ ONE (16:51)
[2016-11-12] MEDS ORDERED: PROPOFOL 20 ML ONE (16:51)
[2016-11-12] MEDS ORDERED: LIDOCAINE 2% (SDV) 5 ML INJ ONE (16:51)
[2016-11-12] MEDS: VANCOMYCIN HCL 250 MG/5ML POSYG PO SCH (19:41)
[2016-11-12 19:44] LABS: HEMOGLOBIN 9.5 g/dl (12.0-16.0)
[2016-11-12] MEDS ORDERED: PHENYLephrine (100 MCG/ML) 5ML SYG ONE (19:45)
[2016-11-12 19:59] LABS: POTASSIUM 3.5 mmol/L (3.5-5.1)
[2016-11-12 20:02] LABS: CREATININE 0.39 mg/dl (0.44-1.00)
[2016-11-12 20:03] LABS: CALCIUM 6.7 mg/dl (8.4-10.2)
[2016-11-12] MEDS: MESALAMINE (EC) 400 MG CAP PO SCH (21:11)
[2016-11-12] MEDS: DEXTROSE 50% 50 ML SYRINGE IV PRN (21:12)
[2016-11-13] VITALS (24 sets, daily range): BP systolic 105–142; BP diastolic 66–104; PULSE 94–123; RESP 16–39
[2016-11-13] MEDS: METOCLOPRAMIDE 10 MG INJ IV SCH ×5 (00:25→23:45)
[2016-11-13] MEDS: VANCOMYCIN HCL 250 MG/5ML POSYG PO SCH ×4 (00:25→17:18)
[2016-11-13 00:51] LABS: HEMOGLOBIN 8.6 g/dl (12.0-16.0)
[2016-11-13] MEDS: INSULIN ASPART [NOVOLOG] 3 ML PEN SC SCH ×6 (01:00→20:39)
[2016-11-13] MEDS: DEXTROSE 5%-0.9% NACL 1,000 ML IV SCH ×3 (01:21→20:30)
[2016-11-13] MEDS: PANTOPRAZOLE IV 80 MG in SOD CHLORIDE 0.9% 100 ML IV SCH ×3 (01:21→23:30)
--- NOTE | 2016-11-13 06:08 | GILP ---
DATE OF PROCEDURE: PROCEDURE: Esophagogastroduodenoscopy with biopsies. BRIEF HISTORY AND INDICATIONS: 1. The patient is being evaluated for gastrointestinal bleeding. 2. Previous history of gastric ulcers. PREMEDICATION: Monitored anesthesia care by anesthesiologist. SURGEON: Nabeel Carrasco MD INSTRUMENT USED: Olympus panendoscope. TECHNIQUE: After informed consent, with the patient/relatives understanding the procedure, its indic ations, potential risks and complications, including but not limited to: allergic reaction, bleeding , perforation or infection, and after all pertinent questions were answered to the patients satisfac tion, the patient/relatives signed witnessed informed consent. Following this, premedication was administered slowly IV push under careful cardiovascular and respi ratory monitoring with pulse oximetry, automatic blood pressure and polymerization oven operator. Once the sedative effect was achieved the patient was place in the left lateral decubitus, the panen doscope was introduced and advanced under visual control. Careful examination of the upper gastrointestinal tract, both on insertion as well as withdrawal of the instrument disclosed the following findings: ESOPHAGUS: The esophagus is entirely ulcerated with dark exudate. Biopsies were obtained to rule o ut kayla. STOMACH: The previously noted gastric ulcerations are healed. PYLORUS: The pylorus appears patent and within normal limits, with no evidence of gastric outlet ob struction. DUODENUM: The duodenal mucosa was carefully examined in the duodenal bulb as well as the second por tion of the duodenum and appears unremarkable with no evidence of duodenitis, ulcer or neoplasm. The instrument was then withdrawn, the patient tolerated the procedure well and was transfer out of the endoscopy suite awake, and in good condition to continue recovery under observation IMPRESSION: Severe ulcerated esophagitis, rule out opportunistic infections; i.e., Kayla, CMV, ot hers. Biopsies obtained. PLAN: PPI double dose, Reglan plus Carafate plus Diflucan. Pathology will be reviewed as soon as a vailable. Dictated By: NABEEL CARRASCO MS/SHILPA Conf#: [id number] DID#: [id number]
[2016-11-13 06:27] LABS: ADD SCAN DIFF NO
--- NOTE | 2016-11-13 06:34 | GILP ---
DATE OF PROCEDURE: 11/12/2016 PROCEDURE: Colonoscopy with biopsies. PREMEDICATION: Monitored anesthesia care by anesthesiologist. BRIEF HISTORY AND INDICATIONS: The patient is being evaluated for GI bleeding. PREMEDICATION: Monitored anesthesia care by anesthesiologist. FINDINGS: Rectal exam: Small external hemorrhoids are noted. Colonic Findings: There was extensive universal ulceration of the mucosa of the entire colon and ar eas that appeared to be a whitish exudate, raising the possibility of C difficile. Biopsies were ob tained randomly. The instrument was withdrawn reexamining the mucosa in detail. No additional abno rmalities are noted with exception of moderate sized internal hemorrhoids. IMPRESSION: [place] ulcerative colitis, biopsies obtained, rule out Clostridium difficile, CMB, i nflammatory bowel disease. Moderate sized internal hemorrhoids. PLAN: Review pathology. Obtain stat C diff toxins and is in stool. Initiate empiric treatment wit h mesalamine and vancomycin. Further recommendations will depend on the patient's clinical course. Dictated By: LM MASSEY Conf#: [id number] DID#: [id number]
[2016-11-13 06:38] LABS: ABNORMAL IP MESSAGE 1; HEMATOCRIT 25.7 % (37.0-47.0); HEMOGLOBIN 8.5 g/dl (12.0-16.0); MEAN CORPUSCULAR HEMOGLOBIN 27.4 pg (29.0-33.0); MEAN CORPUSCULAR HGB CONC 33.1 g/dl (32.0-37.0); MEAN CORPUSCULAR VOLUME 82.9 fl (82.0-101.0); RED CELL DISTRIBUTION WIDTH 16.7 % (11.5-14.5); WHITE BLOOD COUNT 8.5 10^3/ul (4.8-10.8)
[2016-11-13 06:57] LABS: PLATELET COUNT 16 10^3/UL (140-415)
[2016-11-13 07:12] LABS: CALCIUM 6.6 mg/dl (8.4-10.2); CREATININE 0.44 mg/dl (0.44-1.00)
[2016-11-13 07:19] LABS: POTASSIUM 2.8 mmol/L (3.5-5.1)
[2016-11-13] MEDS ORDERED: POTASSIUM CHLORIDE 250 ML IVPB ONE ×2 (07:30→12:30)
[2016-11-13] MEDS: EMTRICITABINE/TENOFOVIR TAB PO SCH (09:04)
[2016-11-13] MEDS: FLUCONAZOLE 100 MG TAB PO SCH (09:04)
[2016-11-13] MEDS: VALGANCICLOVIR 450 MG TAB PO SCH ×2 (09:04→20:37)
[2016-11-13] MEDS: SUCRALFATE 1 GM TAB PO SCH ×4 (09:04→20:36)
[2016-11-13] MEDS: EFAVIRENZ 600 MG TAB PO SCH (09:04)
[2016-11-13] MEDS: COLLAGENASE 30 GM TUBE TOP SCH (09:06)
[2016-11-13] MEDS: MESALAMINE (EC) 400 MG CAP PO SCH ×4 (09:06→20:37)
[2016-11-13 10:05] LABS: LYMPHOCYTES # 0.2 10^3/ul (0.8-2.9); MONOCYTE # 0.2 10^3/ul (0.3-0.9); NEUTROPHIL # 6.5 10^3/ul (1.6-7.5); PLATELET ESTIMATE PLT APPEAR DECREASED
--- NOTE | 2016-11-13 10:26 | PN ---
Date/Time of Note Date/Time of Note DATE: 11/13/16 TIME: 10:22 Assessment/Plan VTE Prophylaxis VTE Prophylaxis Intervention: SCD's Lines/Catheters IV C[facility]ter Type (from [facility]): PICC Line Central line still needed: Yes Urinary Cath still in place: No Assessment/Plan Chief Complaint/Hosp Course ASSESSMENT AND PLAN: 41-year-old female coming in with generalized weakness and rectal bleeding with severe anemia with a prior history of human immunodeficiency virus. 1. Anemia - s/p pRBC transfusion x 4. + LGI bleeding still. Plt's lower today as well (74 ->-> 16). EGD showed severe ulcerated esophagitis, rule out opportunistic infections; i.e., Inocencia, CMV, others. Biopsies obtained. - continue ICU given the severe anemia and the lethargy - Aggressive IV fluid hydration - Pain control medications as needed. - Monitor her hemoglobin every 6 hours as well - continue PPI double dose, Reglan plus Carafate plus Diflucan. 2. History of HIV - pt states she has not been taking HAART meds for the last few mths. ID on case - Continue antiretroviral medications as well, fluconazole - f/u CD4 ct and HIV VL, get ID consult as well 3. Generalized weakness secondary to #1. Continue to follow up plans on #1. 4. Gastrointestinal prophylaxis, continue PPI. 5. Deep venous thrombosis prophylaxis. SCDs, avoid all anticoagulants given the patient's severe anemia. Critical care time spent with pt care today = 45 min. Problems: Subjective 24 Hr Interval Summary Free Text/Dictation Pt had EGD/colonscopy yesterday. Still with active LGI bleeding, and plt's lower today, getting plt transfusion now. Seen by GI and ID teams yesterday. Exam/Review of Systems Vital Signs Vitals Vital Signs Date Time Temp Pulse Resp B/P Pulse Ox O2 Delivery O2 Flow Rate FiO2 11/13/16 10:00 112 29 119/89 100 Room Air 11/13/16 08:00 97.8 11/13/16 05:38 2.0 Intake and Output 11/12/16 11/12/16 11/13/16 15:00 23:00 07:00 Intake Total 1290 ml 1520 ml 876 ml Output Total 2250 ml 1725 ml 730 ml Balance -960 ml -205 ml 146 ml Exam GENERAL: The patient is lying in bed, frail-appearing female answers questions , but lethargic HEENT: There is some pallor noted on the conjunctiva, otherwise pupils equal, round, react to light. Extraocular muscles intact. NECK: Supple, no thyromegaly. LUNGS: Decreased breath sounds bilaterally. CARDIOVASCULAR: Tachycardic, heart rate. No rubs or gallops. ABDOMEN: Soft, nontender, nondistended. Normal bowel sounds. No rebound or guarding. MUSCULOSKELETAL: No lower extremity edema bilaterally. NEUROLOGIC: no focal deficits Results Result Diagram: 11/13/1630 11/13/1630 Results 24 hrs Laboratory Tests Test 11/12/16 12:50 11/12/16 14:43 11/12/16 16:32 11/12/16 19:20 Bedside Glucose 117 97 Hemoglobin 9.2 L Hematocrit 27.9 L Sodium Level 143 Potassium Level 3.5 Chloride Level 112 H Carbon Dioxide Level 28 Anion Gap 7 L Blood Urea Nitrogen 15 # Creatinine 0.39 L Glucose Level 106 # Calcium Level 6.7 L Test 11/12/16 19:33 11/12/16 21:05 11/12/16 21:19 11/12/16 21:37 Hemoglobin 9.5 L Hematocrit 29.0 L Bedside Glucose 67 L 51 L 45 *L Test 11/12/16 21:44 11/12/16 21:45 11/13/16 00:34 11/13/16 00:40 Bedside Glucose 191 102 Glucose Level 165 Hemoglobin 8.6 L Hematocrit 26.0 L Test 11/13/16 05:23 11/13/16 05:30 11/13/16 05:46 11/13/16 08:54 Bedside Glucose 116 106 White Blood Count 8.5 Red Blood Count 3.10 #L Hemoglobin 8.5 L Hematocrit 25.7 L Mean Corpuscular Volume 82.9 Mean Corpuscular Hemoglobin 27.4 L Mean Corpuscular Hemoglobin Concent 33.1 Red Cell Distribution Width 16.7 H Platelet Count 16 #*L Mean Platelet Volume Neutrophils % 76.0 Band Neutrophils % 17.0 H Lymphocytes % 2.0 L Monocytes % 2.0 Eosinophils % Metamyelocytes % 3.0 H Nucleated Red Blood Cells % 2.0 H Neutrophils # 6.5 Lymphocytes # 0.2 L Monocytes # 0.2 L Eosinophils # Metamyelocytes # 0.3 Platelet Estimate PLT APPEAR DECREASED Sodium Level 140 Potassium Level 2.8 *L Chloride Level 115 H Carbon Dioxide Level 26 Anion Gap 2 L Blood Urea Nitrogen 13 Creatinine 0.44 Glucose Level 104 # Calcium Level 6.6 L Lab Scanned Report BLOOD TRANSFUSION Medications Medications Current Medications Ondansetron HCl (Zofran Inj) 4 mg Q6H PRN IV NAUSEA AND/OR VOMITING; Start at 16:00 Acetaminophen (Tylenol Tab) 650 mg Q6H PRN PO PAIN LEVEL 1-3 OR FEVER; Start at 16:00 Acetaminophen/ Hydrocodone Bitart ([place] (5/325)) 1 tab Q6H PRN PO MODERATE PAIN LEVEL 4-6; Start 11/11/16 at 16:00 Docusate Sodium (Colace) 100 mg Q12H PRN PO CONSTIPATION; Start 11/11/16 at 16: 00 Magnesium Hydroxide (Milk Of Mag) 30 ml DAILY PRN PO CONSTIPATION; Start at 16:00 Sodium Biphosphate/ Sodium Phosphate (Fleet Enema) 133 ml DAILY PRN [place] CONSTIPATION; Start 11/11/16 at 16:00 Lorazepam (Ativan) 0.5 mg Q6H PRN IV ANXIETY; Start 11/11/16 at 16:00 Hydralazine HCl (Apresoline) 10 mg Q6H PRN IV ELEVATED BLOOD PRESSURE; Start at 16:00 Nitroglycerin (Nitroglycerin (Sl Tab) 0.4 Mg) 1 tab Q5M PRN SL ANGINA Last administered on 11/11/16 23:25; Admin Dose 1 TAB; Start 11/11/16 at 16:00 Insulin Aspart (Novolog Insulin Pen) NOVOLOG *MILD* ALGORI... Q4 SC Last administered on 11/12/16 04:33; Admin Dose 1 UNIT; Start 11/11/16 at 17:00 Efavirenz (Sustiva) 600 mg DAILY PO Last administered on 11/13/16 09:04; Admin Dose 600 MG; Start 11/12/16 at 09:00 Emtricitabine/ Tenofovir (Truvada) 1 tab DAILY PO Last administered on 09:04; Admin Dose 1 TAB; Start 11/12/16 at 09:00 Sucralfate (Carafate) 1 gm QID PO Last administered on 11/13/16 09:04; Admin Dose 1 GM; Start 11/11/16 at 17:00 Valganciclovir (Valcyte) 450 mg Q12 PO Last administered on 11/13/16 09:04; Admin Dose 450 MG; Start 11/11/16 at 21:00 Miscellaneous Information 1 ea NOTE XX ; Start 11/11/16 at 16:30 Glucose (Glutose) 15 gm Q15M PRN PO DECREASED GLUCOSE; Start 11/11/16 at 16:30 Glucose (Glutose) 22.5 gm Q15M PRN PO DECREASED GLUCOSE; Start 11/11/16 at 16: 30 Dextrose (D50w Syringe) 25 ml Q15M PRN IV DECREASED GLUCOSE Last administered on 11/12/16 21:12; Admin Dose 25 ML; Start 11/11/16 at 16:30 Dextrose (D50w Syringe) 50 ml Q15M PRN IV DECREASED GLUCOSE Last administered on 11/12/16 21:38; Admin Dose 50 ML; Start 11/11/16 at 16:30 Glucagon (Glucagen) 1 mg Q15M PRN IM DECREASED GLUCOSE; Start 11/11/16 at 16:30 Glucose 15 gm 15 gm Q15M PRN BUCCAL DECREASED GLUCOSE; Start 11/11/16 at 16:30 Pantoprazole/ Sodium Chloride (Protonix Iv/NS) 100 ml @ 10 mls/hr Q10H IV Last administered on 11/13/16 01:21; Admin Dose 10 MLS/HR; Start 11/11/16 at 21 :30 Morphine Sulfate 4 mg 4 mg Q4H PRN IV SEVERE PAIN LEVEL 7-10 Last administered on 11/12/16 21:13; Admin Dose 4 MG; Start 11/11/16 at 22:15 Dextrose/Sodium Chloride (D5-NS) 1,000 ml @ 100 mls/hr Q10H IV Last administered on 11/13/16 01:21; Admin Dose 100 MLS/HR; Start 11/11/16 at 22:10 Collagenase (Santyl) 1 applic DAILY TOP Last administered on 11/13/16 09:06; Admin Dose 1 APPLIC; Start 11/12/16 at 13:00 Collagenase (Santyl) 1 applic PRN PRN TOP WOUND CARE; Start 11/12/16 at 12:00 Mesalamine (Delzicol Dr) 800 mg QID PO Last administered on 11/13/16 09:06; Admin Dose 800 MG; Start 11/12/16 at 21:00 Vancomycin HCl (Vancomycin Oral Syringe) 250 mg Q6 PO Last administered on 11/13 06:04; Admin Dose 250 MG; Start 11/12/16 at 19:30 Fluconazole (Diflucan) 100 mg DAILY PO Last administered on 11/13/16 09:04; Admin Dose 100 MG; Start 11/13/16 at 09:00 Metoclopramide HCl 10 mg 10 mg Q6 IV Last administered on 11/13/16 06:04; Admin Dose 10 MG; Start 11/13/16 at 00:00 Potassium Chloride 250 ml @ 62.5 mls/hr ONCE ONCE IVPB Last administered on 08:37; Admin Dose 62.5 MLS/HR; Start 11/13/16 at 07:30; Stop 11/13/16 at 11:29 Potassium Chloride (KCl 40 MEQ/250 ML NS) 250 ml @ 62.5 mls/hr ONCE ONCE IVPB ; Start 11/13/16 at 12:30; Stop 11/13/16 at 16:29 JESUS RUIZ November 13, 2016 10:26
[2016-11-13 11:04] LABS: PLATELET COUNT 15 10^3/UL (140-415)
[2016-11-13 11:25] LABS: INR 1.48; PT RATIO 1.4
[2016-11-13 11:31] LABS: THROMBIN TIME 16.4 SEC (13.8-19.1)
[2016-11-13 13:03] LABS: PARTIAL THROMBOPLASTIN TIME 33.1 Sec (25.0-35.0)
--- NOTE | 2016-11-13 13:20 | PN ---
DATE: 11/13/2016 INFECTIOUS DISEASE PROGRESS NOTE SUBJECTIVE: The patient is lying comfortably in bed and sleeping. She is very weak, still has rect al bleeding, rectal tube in place. She also had a Hughes catheter and PICC line placed yesterday in her left upper extremity. ANTIMICROBIALS: The patient is on fluconazole, oral vancomycin, and also on Sustiva and Truvada for HIV. MICROBIOLOGY: Wound culture growing gram-negative rods. Urine culture preliminary growing E. coli. Blood cultures remain negative. Stool for C. diff came back negative. LABORATORY DATA: WBC 8.5, H and H 8.5 and 25.7, platelets 16, BUN 13, creatinine 0.44. DIAGNOSTICS: CT of the abdomen on admission revealed mild atelectasis with small pleural effusion, gas and fluid in the colon, and mild diffuse thickening of the wall of the colon. PHYSICAL EXAMINATION: GENERAL: This is a cachectic, well developed, chronically ill-appearing, 41-year-old woman who is i n no distress. HEENT: Head atraumatic, normocephalic. Sclerae anicteric. Buccal mucosa dry. NECK: Supple, trachea midline. CHEST: Chest rise is symmetrical. Breath sounds diminished to the bases. HEART: S1, S2. ABDOMEN: Soft, bowel tones present. EXTREMITIES: Without cyanosis. SKIN: With anasarca and multiple unstageable decubitus, chronic. ASSESSMENT: 1. Acute anemia, GI bleeding, status post esophagogastroduodenoscopy and colonoscopy that revealed severe ulcerative esophagitis. Rule out opportunistic infections, pathology pending. Also moderate size hemorrhoids. 2. Urinary tract infection. 3. Multiple chronic wounds. 4. Human immunodeficiency virus positive, with a CD4 count in July of 2016 of 392, on appropria te antiretrovirals. 5. History of Inocencia esophagitis and hepatitis C virus. 6. Severe decompensated state. 7. Questionable colitis as per CT of the abdomen. PLAN: The patient is clinically stable. We are going to start her on IV Rocephin to cover for E. c do that she is growing in her urine. Continue fluconazole and oral vancomycin. Monitor H and H an d transfuse as needed. Follow gastroenterology recommendations and follow final pathology report. Dictated By: AGUILA BURGOS THUMB SEWER for GINNY PIERSON/SHILPA Conf#: [id number] [facility]#: [id number]
[2016-11-13 13:34] LABS: D-DIMER 6660.26 ng/ml (<460)
[2016-11-13 13:58] LABS: FIBRIN SPLIT PRODUCT <10 ug/ml (<10)
[2016-11-13 14:42] LABS: HEMATOCRIT 25.8 % (37.0-47.0); HEMOGLOBIN 8.4 g/dl (12.0-16.0)
[2016-11-13] MEDS: CEFTRIAXONE 1 GM/50 ML (PMX) 50 ML IVPB SCH (15:15)
[2016-11-13] MEDS: morphine 4 MG/ML VIAL IV PRN (17:15)
--- NOTE | 2016-11-13 17:42 | PN ---
Date/Time of Note Date/Time of Note DATE: 11/13/16 TIME: 17:33 Assessment/Plan VTE Prophylaxis VTE Prophylaxis Intervention: SCD's Lines/Catheters IV C[facility] Type (from [facility] PICC Line Central line still needed: Yes Urinary Cath still in place: No Assessment/Plan Assessment/Plan Assessment * Anemia hgb 8.4 EGD 11/12/2016 Severe ulcerated esophagitis, rule out opportunistic infections; i.e., Inocencia, CMV, others. Biopsies obtained Colonoscopy 11/12/2016 [place] ulcerative colitis, biopsies obtained, rule out Clostridium difficile, CMB, inflammatory bowel disease. Moderate sized internal hemorrhoids * HIV disease. Plan * continue present management Subjective 24 Hr Interval Summary Free Text/Dictation * Course reviewed with RN * patient seen and examined * C difficile negative * Episodes of diarrhea * EGD Severe ulcerated esophagitis, rule out opportunistic infections ; i.e., Inocencia, CMV, others. Biopsies obtained. * colonoscopy [place] ulcerative colitis, biopsies obtained, rule out Clostridium difficile, CMB, inflammatory bowel disease. Moderate sized internal hemorrhoids Exam/Review of Systems Vital Signs Vitals Vital Signs Date Time Temp Pulse Resp B/P Pulse Ox O2 Delivery O2 Flow Rate FiO2 11/13/16 16:20 99 21 11/13/16 12:00 112 11/13/16 10:00 29 119/89 Room Air 11/13/16 08:00 97.8 11/13/16 05:38 2.0 Intake and Output 11/12/16 11/12/16 11/13/16 15:00 23:00 07:00 Intake Total 1290 ml 1520 ml 876 ml Output Total 2250 ml 1725 ml 730 ml Balance -960 ml -205 ml 146 ml Exam Constitutional: alert, frail Neck: non-tender, supple Respiratory: clear to auscultation, normal air movement Cardiovascular: nl pulses, regular rate and rhythm Gastrointestinal: non-tender, soft Musculoskeletal: nl extremities to inspection, nl gait and stance Extremities: normal pulses Results Result Diagram: 11/13/16 1430 11/13/16 0530 Results 24 hrs Laboratory Tests Test 11/12/16 19:20 11/12/16 19:33 11/12/16 21:05 11/12/16 21:19 Sodium Level 143 Potassium Level 3.5 Chloride Level 112 H Carbon Dioxide Level 28 Anion Gap 7 L Blood Urea Nitrogen 15 # Creatinine 0.39 L Glucose Level 106 # Calcium Level 6.7 L Hemoglobin 9.5 L Hematocrit 29.0 L Bedside Glucose 67 L 51 L Test 11/12/16 21:37 11/12/16 21:44 11/12/16 21:45 11/13/16 00:34 Bedside Glucose 45 *L 191 102 Glucose Level 165 Test 11/13/16 00:40 11/13/16 05:23 11/13/16 05:30 11/13/16 05:46 Hemoglobin 8.6 L 8.5 L Hematocrit 26.0 L 25.7 L Bedside Glucose 116 White Blood Count 8.5 Red Blood Count 3.10 #L Mean Corpuscular Volume 82.9 Mean Corpuscular Hemoglobin 27.4 L Mean Corpuscular Hemoglobin Concent 33.1 Red Cell Distribution Width 16.7 H Platelet Count 16 #*L Mean Platelet Volume Neutrophils % 76.0 Band Neutrophils % 17.0 H Lymphocytes % 2.0 L Monocytes % 2.0 Eosinophils % Metamyelocytes % 3.0 H Nucleated Red Blood Cells % 2.0 H Neutrophils # 6.5 Lymphocytes # 0.2 L Monocytes # 0.2 L Eosinophils # Metamyelocytes # 0.3 Platelet Estimate PLT APPEAR DECREASED Sodium Level 140 Potassium Level 2.8 *L Chloride Level 115 H Carbon Dioxide Level 26 Anion Gap 2 L Blood Urea Nitrogen 13 Creatinine 0.44 Glucose Level 104 # Calcium Level 6.6 L Lab Scanned Report BLOOD TRANSFUSION Test 11/13/16 08:54 11/13/16 10:40 11/13/16 12:55 11/13/16 14:30 Bedside Glucose 106 117 Platelet Count 15 *L Prothrombin Time 18.0 H Prothrombin Time Ratio 1.4 INR International Normalized Ratio 1.48 Activated Partial Thromboplast Time 33.1 Thrombin Time 16.4 Fibrinogen 172.0 L Plasma Fibrin Degradation Products <10 D-Dimer 6660.26 H D-Dimer Comment Hemoglobin 8.4 L Hematocrit 25.8 L Test 11/13/16 17:11 Bedside Glucose 89 Medications Medications Current Medications Ondansetron HCl (Zofran Inj) 4 mg Q6H PRN IV NAUSEA AND/OR VOMITING; Start at 16:00 Acetaminophen (Tylenol Tab) 650 mg Q6H PRN PO PAIN LEVEL 1-3 OR FEVER; Start at 16:00 Acetaminophen/ Hydrocodone Bitart ([place] (5/325)) 1 tab Q6H PRN PO MODERATE PAIN LEVEL 4-6; Start 11/11/16 at 16:00 Docusate Sodium (Colace) 100 mg Q12H PRN PO CONSTIPATION; Start 11/11/16 at 16: 00 Magnesium Hydroxide (Milk Of Mag) 30 ml DAILY PRN PO CONSTIPATION; Start at 16:00 Sodium Biphosphate/ Sodium Phosphate (Fleet Enema) 133 ml DAILY PRN [place] CONSTIPATION; Start 11/11/16 at 16:00 Lorazepam (Ativan) 0.5 mg Q6H PRN IV ANXIETY; Start 11/11/16 at 16:00 Hydralazine HCl (Apresoline) 10 mg Q6H PRN IV ELEVATED BLOOD PRESSURE; Start at 16:00 Nitroglycerin (Nitroglycerin (Sl Tab) 0.4 Mg) 1 tab Q5M PRN SL ANGINA Last administered on 11/11/16 23:25; Admin Dose 1 TAB; Start 11/11/16 at 16:00 Insulin Aspart (Novolog Insulin Pen) NOVOLOG *MILD* ALGORI... Q4 SC Last administered on 11/12/16 04:33; Admin Dose 1 UNIT; Start 11/11/16 at 17:00 Efavirenz (Sustiva) 600 mg DAILY PO Last administered on 11/13/16 09:04; Admin Dose 600 MG; Start 11/12/16 at 09:00 Emtricitabine/ Tenofovir (Truvada) 1 tab DAILY PO Last administered on 09:04; Admin Dose 1 TAB; Start 11/12/16 at 09:00 Sucralfate (Carafate) 1 gm QID PO Last administered on 11/13/16 17:05; Admin Dose 1 GM; Start 11/11/16 at 17:00 Valganciclovir (Valcyte) 450 mg Q12 PO Last administered on 11/13/16 09:04; Admin Dose 450 MG; Start 11/11/16 at 21:00 Miscellaneous Information 1 ea NOTE XX ; Start 11/11/16 at 16:30 Glucose (Glutose) 15 gm Q15M PRN PO DECREASED GLUCOSE; Start 11/11/16 at 16:30 Glucose (Glutose) 22.5 gm Q15M PRN PO DECREASED GLUCOSE; Start 11/11/16 at 16: 30 Dextrose (D50w Syringe) 25 ml Q15M PRN IV DECREASED GLUCOSE Last administered on 11/12/16 21:12; Admin Dose 25 ML; Start 11/11/16 at 16:30 Dextrose (D50w Syringe) 50 ml Q15M PRN IV DECREASED GLUCOSE Last administered on 11/12/16 21:38; Admin Dose 50 ML; Start 11/11/16 at 16:30 Glucagon (Glucagen) 1 mg Q15M PRN IM DECREASED GLUCOSE; Start 11/11/16 at 16:30 Glucose 15 gm 15 gm Q15M PRN BUCCAL DECREASED GLUCOSE; Start 11/11/16 at 16:30 Pantoprazole/ Sodium Chloride (Protonix Iv/NS) 100 ml @ 10 mls/hr Q10H IV Last administered on 11/13/16 10:32; Admin Dose 10 MLS/HR; Start 11/11/16 at 21 :30 Morphine Sulfate (morphine) 4 mg Q4H PRN IV SEVERE PAIN LEVEL 7-10 Last administered on 11/13/16 17:15; Admin Dose 4 MG; Start 11/11/16 at 22:15 Collagenase (Santyl) 1 applic DAILY TOP Last administered on 11/13/16 09:06; Admin Dose 1 APPLIC; Start 11/12/16 at 13:00 Collagenase (Santyl) 1 applic PRN PRN TOP WOUND CARE; Start 11/12/16 at 12:00 Mesalamine (Delzicol Dr) 800 mg QID PO Last administered on 11/13/16 17:06; Admin Dose 800 MG; Start 11/12/16 at 21:00 Vancomycin HCl (Vancomycin Oral Syringe) 250 mg Q6 PO Last administered on 11/13 17:18; Admin Dose 250 MG; Start 11/12/16 at 19:30 Fluconazole (Diflucan) 100 mg DAILY PO Last administered on 11/13/16 09:04; Admin Dose 100 MG; Start 11/13/16 at 09:00 Metoclopramide HCl 10 mg 10 mg Q6 IV Last administered on 11/13/16 17:15; Admin Dose 10 MG; Start 11/13/16 at 00:00 Dextrose/Sodium Chloride 1,000 ml @ 100 mls/hr Q10H IV Last administered on 10:39; Admin Dose 100 MLS/HR; Start 11/13/16 at 10:30 Ceftriaxone Sodium (Rocephin) 50 ml @ 100 mls/hr Q24H IVPB Last administered on 11/13/16 15:15; Admin Dose 100 MLS/HR; Start 11/13/16 at 13:30 Lactobacillus Acidophilus (Florajen3 Capsule) 1 each BID PO ; Start 11/13/16 at 21:00 LM LAMB MD November 13, 2016 17:42
[2016-11-13 20:23] LABS: HEMATOCRIT 26.3 % (37.0-47.0); HEMOGLOBIN 8.6 g/dl (12.0-16.0)
[2016-11-13] MEDS: L ACIDOPHIL/B LACTIS/B LONGUM CAPSULE PO SCH (20:37)
[2016-11-13] MEDS: HYDROCODONE/APAP (5/325) TAB PO PRN (20:37)
[2016-11-13] MEDS ORDERED: SOD CHLORIDE 0.9% 1,000 ML IV ONE (22:30)
[2016-11-14] VITALS (24 sets, daily range): BP systolic 110–136; BP diastolic 76–100; PULSE 98–117; RESP 16–30
[2016-11-14] MEDS: VANCOMYCIN HCL 250 MG/5ML POSYG PO SCH ×5 (00:58→23:45)
[2016-11-14] MEDS: PANTOPRAZOLE IV 80 MG in SOD CHLORIDE 0.9% 100 ML IV SCH ×2 (00:59→09:50)
[2016-11-14 01:00] LABS: HEMATOCRIT 22.6 % (37.0-47.0); HEMOGLOBIN 7.4 g/dl (12.0-16.0)
[2016-11-14] MEDS: INSULIN ASPART [NOVOLOG] 3 ML PEN SC SCH ×3 (01:00→09:00)
[2016-11-14] MEDS: METOCLOPRAMIDE 10 MG INJ IV SCH ×4 (03:26→23:46)
[2016-11-14] MEDS: DEXTROSE 5%-0.9% NACL 1,000 ML IV SCH (04:28)
[2016-11-14 05:28] LABS: ADD SCAN DIFF NO
[2016-11-14 05:33] LABS: ABNORMAL IP MESSAGE 1; BASOPHILS % 0.1 % (0.0-2.0); HEMATOCRIT 22.7 % (37.0-47.0); HEMOGLOBIN 7.3 g/dl (12.0-16.0); LYMPHOCYTES # 0.8 10^3/ul (0.8-2.9); MEAN CORPUSCULAR HEMOGLOBIN 26.6 pg (29.0-33.0); MEAN CORPUSCULAR HGB CONC 32.2 g/dl (32.0-37.0); MEAN CORPUSCULAR VOLUME 82.8 fl (82.0-101.0); MONOCYTE # 0.4 10^3/ul (0.3-0.9); MONOCYTES % 2.9 % (0.0-11.0); NEUTROPHIL # 11.5 10^3/ul (1.6-7.5); NEUTROPHILS % 86.4 % (39.0-77.0); NUCLEATED RED BLOOD CELLS% 0.1 /100WBC (0.0-0.0); RED BLOOD COUNT 2.74 10^6/ul (4.20-5.40); RED CELL DISTRIBUTION WIDTH 17.9 % (11.5-14.5); WHITE BLOOD COUNT 13.4 10^3/ul (4.8-10.8)
[2016-11-14] MEDS: morphine 4 MG/ML VIAL IV PRN ×2 (05:38→09:50)
[2016-11-14 05:40] LABS: PLATELET COUNT 39 10^3/UL (140-415)
[2016-11-14 05:54] LABS: ALBUMIN 1.2 g/dl (3.3-4.9); BILIRUBIN,INDIRECT 0.6 mg/dl (0-1.1); BILIRUBIN,TOTAL 0.6 mg/dl (0.2-1.3); TOTAL PROTEIN 3.8 g/dl (6.1-8.1)
[2016-11-14 05:55] LABS: POTASSIUM 3.1 mmol/L (3.5-5.1)
[2016-11-14 05:57] LABS: CREATININE 0.4 mg/dl (0.44-1.00)
[2016-11-14 05:58] LABS: CALCIUM 6.4 mg/dl (8.4-10.2)
[2016-11-14] MEDS: ALBUMIN HUMAN 25% 50 ML IV SCH ×3 (07:25→23:41)
[2016-11-14] MEDS: POTASSIUM CHLORIDE 50 ML IVPB PRN ×3 (08:27→12:50)
[2016-11-14] MEDS: EMTRICITABINE/TENOFOVIR TAB PO SCH (08:31)
[2016-11-14] MEDS: L ACIDOPHIL/B LACTIS/B LONGUM CAPSULE PO SCH ×2 (08:31→20:21)
[2016-11-14] MEDS: VALGANCICLOVIR 450 MG TAB PO SCH ×2 (08:31→20:21)
[2016-11-14] MEDS: MESALAMINE (EC) 400 MG CAP PO SCH ×4 (08:31→20:21)
[2016-11-14] MEDS: SUCRALFATE 1 GM TAB PO SCH ×4 (08:32→20:20)
[2016-11-14] MEDS: FLUCONAZOLE 100 MG TAB PO SCH (08:32)
[2016-11-14] MEDS: HYDROCODONE/APAP (5/325) TAB PO PRN (08:32)
[2016-11-14] MEDS: COLLAGENASE 30 GM TUBE TOP SCH (08:33)
[2016-11-14] MEDS: EFAVIRENZ 600 MG TAB PO SCH (08:34)
--- NOTE | 2016-11-14 10:40 | PN ---
Date/Time of Note Date/Time of Note DATE: 11/14/16 TIME: 10:38 Assessment/Plan VTE Prophylaxis VTE Prophylaxis Intervention: SCD's Lines/Catheters IV Catheter Type (from [facility]): PICC Line Central line still needed: Yes Urinary Cath still in place: Yes Reason Cath still needed: urinary retention Assessment/Plan Chief Complaint/Hosp Course ASSESSMENT AND PLAN: 41-year-old female coming in with generalized weakness and rectal bleeding with severe anemia with a prior history of human immunodeficiency virus. 1. Anemia - s/p pRBC transfusion x 4. + LGI bleeding still. Plt's lower today as well (74 ->-> 16). EGD showed severe ulcerated esophagitis, rule out opportunistic infections; i.e., Inocencia, CMV, others. Biopsies obtained. - continue ICU given the severe anemia and the lethargy - Aggressive IV fluid hydration - Pain control medications as needed. - Monitor her hemoglobin every 6 hours as well - continue PPI double dose, Reglan plus Carafate plus Diflucan. 2. History of HIV - pt states she has not been taking HAART meds for the last few mths. ID on case - Continue antiretroviral medications as well, fluconazole - f/u CD4 ct and HIV VL, get ID consult as well 3. Generalized weakness secondary to #1. Continue to follow up plans on #1. 4. Gastrointestinal prophylaxis, continue PPI. 5. Deep venous thrombosis prophylaxis. SCDs, avoid all anticoagulants given the patient's severe anemia. Critical care time spent with pt care today = 45 min. Problems: Subjective 24 Hr Interval Summary Free Text/Dictation Pt received plt transfusion yesterday, getting pRBC today as well (still + LGI bleeding). Exam/Review of Systems Vital Signs Vitals Vital Signs Date Time Temp Pulse Resp B/P Pulse Ox O2 Delivery O2 Flow Rate FiO2 11/14/16 10:00 102 29 129/97 100 Room Air 11/14/16 08:00 97.6 11/13/16 16:20 21 11/13/16 05:38 2.0 Intake and Output 11/13/16 11/13/16 11/14/16 15:00 23:00 07:00 Intake Total 1090 ml 1770 ml 510 ml Output Total 635 ml 290 ml 535 ml Balance 455 ml 1480 ml -25 ml Exam GENERAL: The patient is lying in bed, frail-appearing female answers questions , but lethargic HEENT: There is some pallor noted on the conjunctiva, otherwise pupils equal, round, react to light. Extraocular muscles intact. NECK: Supple, no thyromegaly. LUNGS: Decreased breath sounds bilaterally. CARDIOVASCULAR: Tachycardic, heart rate. No rubs or gallops. ABDOMEN: Soft, nontender, nondistended. Normal bowel sounds. No rebound or guarding. MUSCULOSKELETAL: No lower extremity edema bilaterally. NEUROLOGIC: no focal deficits Results Result Diagram: 11/14/16 0430 11/14/16 0430 Results 24 hrs Laboratory Tests Test 11/13/16 10:40 11/13/16 12:55 11/13/16 14:30 11/13/16 17:00 Platelet Count 15 *L Prothrombin Time 18.0 H Prothrombin Time Ratio 1.4 INR International Normalized Ratio 1.48 Activated Partial Thromboplast Time 33.1 Thrombin Time 16.4 Fibrinogen 172.0 L Plasma Fibrin Degradation Products <10 D-Dimer 6660.26 H D-Dimer Comment Bedside Glucose 117 Hemoglobin 8.4 L Hematocrit 25.8 L Potassium Level 3.9 Test 11/13/16 17:11 11/13/16 20:10 11/13/16 20:35 11/14/16 00:45 Bedside Glucose 89 104 Hemoglobin 8.6 L 7.4 L Hematocrit 26.3 L 22.6 L Test 11/14/16 00:49 11/14/16 04:30 11/14/16 04:35 11/14/16 05:36 Bedside Glucose 90 94 White Blood Count 13.4 #H Red Blood Count 2.74 L Hemoglobin 7.3 L Hematocrit 22.7 L Mean Corpuscular Volume 82.8 Mean Corpuscular Hemoglobin 26.6 L Mean Corpuscular Hemoglobin Concent 32.2 Red Cell Distribution Width 17.9 H Platelet Count 39 #L Mean Platelet Volume Neutrophils % 86.4 H Lymphocytes % 6.0 L Monocytes % 2.9 Eosinophils % 0.0 Basophils % 0.1 Nucleated Red Blood Cells % 0.1 H Neutrophils # 11.5 H Lymphocytes # 0.8 Monocytes # 0.4 Eosinophils # 0.0 Basophils # 0.0 Nucleated Red Blood Cells # 0.0 Sodium Level 138 Potassium Level 3.1 L Chloride Level 111 H Carbon Dioxide Level 25 Anion Gap 5 L Blood Urea Nitrogen 13 Creatinine 0.40 L Glucose Level 81 Calcium Level 6.4 L Total Bilirubin 0.6 Direct Bilirubin 0.00 Indirect Bilirubin 0.6 Aspartate Amino Transf (AST/SGOT) 29 Alanine Aminotransferase (ALT/SGPT) 26 Alkaline Phosphatase 107 Total Protein 3.8 L Albumin 1.2 L Lab Scanned Report BLOOD TRANSFUSION Test 11/14/16 08:30 Bedside Glucose 92 Medications Medications Current Medications Ondansetron HCl (Zofran Inj) 4 mg Q6H PRN IV NAUSEA AND/OR VOMITING; Start at 16:00 Acetaminophen (Tylenol Tab) 650 mg Q6H PRN PO PAIN LEVEL 1-3 OR FEVER; Start at 16:00 Acetaminophen/ Hydrocodone Bitart ([place] (5/325)) 1 tab Q6H PRN PO MODERATE PAIN LEVEL 4-6; Start 11/11/16 at 16:00 Docusate Sodium (Colace) 100 mg Q12H PRN PO CONSTIPATION; Start 11/11/16 at 16: 00 Magnesium Hydroxide (Milk Of Mag) 30 ml DAILY PRN PO CONSTIPATION; Start at 16:00 Sodium Biphosphate/ Sodium Phosphate (Fleet Enema) 133 ml DAILY PRN [place] CONSTIPATION; Start 11/11/16 at 16:00 Lorazepam (Ativan) 0.5 mg Q6H PRN IV ANXIETY; Start 11/11/16 at 16:00 Hydralazine HCl (Apresoline) 10 mg Q6H PRN IV ELEVATED BLOOD PRESSURE; Start at 16:00 Nitroglycerin (Nitroglycerin (Sl Tab) 0.4 Mg) 1 tab Q5M PRN SL ANGINA Last administered on 11/11/16 23:25; Admin Dose 1 TAB; Start 11/11/16 at 16:00 Insulin Aspart (Novolog Insulin Pen) NOVOLOG *MILD* ALGORI... Q4 SC Last administered on 11/12/16 04:33; Admin Dose 1 UNIT; Start 11/11/16 at 17:00 Efavirenz (Sustiva) 600 mg DAILY PO Last administered on 11/14/16 08:34; Admin Dose 600 MG; Start 11/12/16 at 09:00 Emtricitabine/ Tenofovir (Truvada) 1 tab DAILY PO Last administered on 08:31; Admin Dose 1 TAB; Start 11/12/16 at 09:00 Sucralfate (Carafate) 1 gm QID PO Last administered on 11/14/16 08:32; Admin Dose 1 GM; Start 11/11/16 at 17:00 Valganciclovir (Valcyte) 450 mg Q12 PO Last administered on 11/14/16 08:31; Admin Dose 450 MG; Start 11/11/16 at 21:00 Miscellaneous Information 1 ea NOTE XX ; Start 11/11/16 at 16:30 Glucose (Glutose) 15 gm Q15M PRN PO DECREASED GLUCOSE; Start 11/11/16 at 16:30 Glucose (Glutose) 22.5 gm Q15M PRN PO DECREASED GLUCOSE; Start 11/11/16 at 16: 30 Dextrose (D50w Syringe) 25 ml Q15M PRN IV DECREASED GLUCOSE Last administered on 11/12/16 21:12; Admin Dose 25 ML; Start 11/11/16 at 16:30 Dextrose (D50w Syringe) 50 ml Q15M PRN IV DECREASED GLUCOSE Last administered on 11/12/16 21:38; Admin Dose 50 ML; Start 11/11/16 at 16:30 Glucagon (Glucagen) 1 mg Q15M PRN IM DECREASED GLUCOSE; Start 11/11/16 at 16:30 Glucose 15 gm 15 gm Q15M PRN BUCCAL DECREASED GLUCOSE; Start 11/11/16 at 16:30 Pantoprazole/ Sodium Chloride (Protonix Iv/NS) 100 ml @ 10 mls/hr Q10H IV Last administered on 11/14/16 09:50; Admin Dose 10 MLS/HR; Start 11/11/16 at 21 :30 Morphine Sulfate (morphine) 4 mg Q4H PRN IV SEVERE PAIN LEVEL 7-10 Last administered on 11/14/16 09:50; Admin Dose 4 MG; Start 11/11/16 at 22:15 Collagenase (Santyl) 1 applic DAILY TOP Last administered on 11/14/16 08:33; Admin Dose 1 APPLIC; Start 11/12/16 at 13:00 Collagenase (Santyl) 1 applic PRN PRN TOP WOUND CARE; Start 11/12/16 at 12:00 Mesalamine (Delzicol Dr) 800 mg QID PO Last administered on 11/14/16 08:31; Admin Dose 800 MG; Start 11/12/16 at 21:00 Vancomycin HCl (Vancomycin Oral Syringe) 250 mg Q6 PO Last administered on 11/14 05:38; Admin Dose 250 MG; Start 11/12/16 at 19:30 Fluconazole (Diflucan) 100 mg DAILY PO Last administered on 11/14/16 08:32; Admin Dose 100 MG; Start 11/13/16 at 09:00 Metoclopramide HCl 10 mg 10 mg Q6 IV Last administered on 11/13/16 17:15; Admin Dose 10 MG; Start 11/13/16 at 00:00 Dextrose/Sodium Chloride 1,000 ml @ 100 mls/hr Q10H IV Last administered on 04:28; Admin Dose 100 MLS/HR; Start 11/13/16 at 10:30 Ceftriaxone Sodium (Rocephin) 50 ml @ 100 mls/hr Q24H IVPB Last administered on 11/13/16 15:15; Admin Dose 100 MLS/HR; Start 11/13/16 at 13:30 Lactobacillus Acidophilus (Florajen3 Capsule) 1 each BID PO Last administered on 11/14/16 08:31; Admin Dose 1 EACH; Start 11/13/16 at 21:00 Acetaminophen/ Hydrocodone Bitart 1 tab 1 tab Q4H PRN PO severe pain Last administered on 11/14/16 08:32; Admin Dose 1 TAB; Start 11/13/16 at 20:30 Albumin Human (Albumin Human 25%) 50 ml @ 100 mls/hr Q8H IV Last administered on 11/14/16 07:25; Admin Dose 100 MLS/HR; Start 11/14/16 at 07:30; Stop at 23:59 JESUS RUIZ November 14, 2016 10:40
[2016-11-14] MEDS ORDERED: POTASSIUM CHLORIDE 250 ML IVPB ONE (11:00)
[2016-11-14 12:34] LABS: MYELOPEROXIDASE ANTIBODY <1.0 AI; PROTEINASE-3 ANTIBODY <1.0 AI
[2016-11-14] MEDS: CEFTRIAXONE 1 GM/50 ML (PMX) 50 ML IVPB SCH (12:50)
[2016-11-14 13:46] LABS: HEMATOCRIT 31.7 % (37.0-47.0); HEMOGLOBIN 10.4 g/dl (12.0-16.0)
--- NOTE | 2016-11-14 13:55 | PN ---
DATE: 11/14/2016 SUBJECTIVE: No events overnight. The patient is awake, looks comfortable, getting blood transfusio n. She remains on Protonix drip. VITAL SIGNS: Temperature 97.6, pulse 106, respirations 24, blood pressure 126/94, saturation 100 on room air. WBC 13.4, H and H 7.3 and 22.7, platelets 39, BUN 13, creatinine 0.40. MICROBIOLOGY: Wound culture growing E. coli ESBL, Enterococcus species. Urine culture grew E. coli and Proteus mirabilis. ANTIMICROBIALS: The patient is on: 1. IV Rocephin. 2. Fluconazole. 3. Oral vancomycin. 4. Valcyte. 5. Truvada. 6. Sustiva. PHYSICAL EXAMINATION: GENERAL: Chronically ill-appearing, middle-aged white woman who is in no distress. HEENT: Head atraumatic, normocephalic. Sclerae anicteric. Buccal mucosa dry. NECK: Supple, trachea midline. CHEST: Rise symmetrical. Breath sounds diminished to bases. HEART: S1, S2. ABDOMEN: Soft. Bowel tones present. EXTREMITIES: Without cyanosis. SKIN: Very pale with anasarca and multiple chronic wounds, ASSESSMENT: 1. Acute anemia secondary to gastrointestinal bleed with EGD revealed severe ulcerative esophagitis , rule out opportunistic infection. 2. Polymicrobial urinary tract infection. 3. Multiple chronic wounds. 4. Human immunodeficiency virus, on antiretrovirals. 5. History of Inocencia esophagitis. 6. Colitis as per CT of the abdomen. 7. Severe deconditioning. PLAN: The patient remains stable. She is being followed by gastroenterology. She is on Protonix d rip. We will change Rocephin to Invanz. Continue other antibiotics and wait for pathology report. Blood products p.r.n. Dictated By: AGUILA BURGOS HATCH BOSS for GINNY PIERSON/SHILPA Conf#: [id number] DID#: [id number]
--- NOTE | 2016-11-14 14:31 | CONS ---
Date/Time of Note Date/Time of Note DATE: 11/14/16 TIME: 14:26 Assessment/Plan Assessment/Plan Additional Assessment/Plan Anemia * EGD 11/12/2016: Severe ulcerated esophagitis, rule out opportunistic infections ; i.e., Inocencia, CMV, others. Biopsies obtained * Colonoscopy 11/12/2016: [place] ulcerative colitis, biopsies obtained, rule out Clostridium difficile, CMB, inflammatory bowel disease. Moderate sized internal hemorrhoids HIV disease. Plan: Review pathology Review serology Monitor hemoglobin, transfuse to keep above 7.5 Further recommendations depend on clinical course Patient seen in collaboration with Dr. Carrasco Consultation Date/Type/Reason Admit Date/Time November 11, 2016 at 15:19 Initial Consult Date 11/11/16 Type of Consultation: gastroenterology Referring Provider: JESUS RUIZ 24 HR Interval Summary Free Text/Dictation Very lethargic No reports of diarrhea Pathology and IBD serology pending Exam/Review of Systems Vital Signs Vitals Vital Signs Date Time Temp Pulse Resp B/P Pulse Ox O2 Delivery O2 Flow Rate FiO2 11/14/16 12:00 98 11/14/16 10:00 29 129/97 100 Room Air 11/14/16 08:00 97.6 11/13/16 16:20 21 11/13/16 05:38 2.0 Intake and Output 11/13/16 11/13/16 11/14/16 14:59 22:59 06:59 Intake Total 1090 ml 1770 ml 400 ml Output Total 700 ml 300 ml 485 ml Balance 390 ml 1470 ml -85 ml Exam Constitutional: alert, oriented, lethargic Psych: nl mood/affect Head: normocephalic Eyes: EOMI, nl conjunctiva, nl lids ENMT: nl external ears & nose, nl lips & teeth, nl nasal mucosa & septum Respiratory: clear to auscultation, normal air movement Cardiovascular: regular rate and rhythm Gastrointestinal: soft, non-tender Musculoskeletal: nl extremities to inspection Neurological: PST SUPERVISOR II-XII intact Results Result Diagram: 11/14/16 1325 11/14/16 0430 Results 24 hrs Laboratory Tests Test 11/13/16 14:30 11/13/16 17:00 11/13/16 17:11 11/13/16 20:10 Hemoglobin 8.4 L 8.6 L Hematocrit 25.8 L 26.3 L Potassium Level 3.9 Bedside Glucose 89 Test 11/13/16 20:35 11/14/16 00:45 11/14/16 00:49 11/14/16 04:30 Bedside Glucose 104 90 Hemoglobin 7.4 L 7.3 L Hematocrit 22.6 L 22.7 L White Blood Count 13.4 #H Red Blood Count 2.74 L Mean Corpuscular Volume 82.8 Mean Corpuscular Hemoglobin 26.6 L Mean Corpuscular Hemoglobin Concent 32.2 Red Cell Distribution Width 17.9 H Platelet Count 39 #L Mean Platelet Volume Neutrophils % 86.4 H Lymphocytes % 6.0 L Monocytes % 2.9 Eosinophils % 0.0 Basophils % 0.1 Nucleated Red Blood Cells % 0.1 H Neutrophils # 11.5 H Lymphocytes # 0.8 Monocytes # 0.4 Eosinophils # 0.0 Basophils # 0.0 Nucleated Red Blood Cells # 0.0 Sodium Level 138 Potassium Level 3.1 L Chloride Level 111 H Carbon Dioxide Level 25 Anion Gap 5 L Blood Urea Nitrogen 13 Creatinine 0.40 L Glucose Level 81 Calcium Level 6.4 L Total Bilirubin 0.6 Direct Bilirubin 0.00 Indirect Bilirubin 0.6 Aspartate Amino Transf (AST/SGOT) 29 Alanine Aminotransferase (ALT/SGPT) 26 Alkaline Phosphatase 107 Total Protein 3.8 L Albumin 1.2 L Test 11/14/16 04:35 11/14/16 05:36 11/14/16 08:30 11/14/16 13:25 Bedside Glucose 94 92 Lab Scanned Report BLOOD TRANSFUSION Hemoglobin 10.4 #L Hematocrit 31.7 #L Medications Medications Current Medications Ondansetron HCl (Zofran Inj) 4 mg Q6H PRN IV NAUSEA AND/OR VOMITING; Start at 16:00 Acetaminophen (Tylenol Tab) 650 mg Q6H PRN PO PAIN LEVEL 1-3 OR FEVER; Start at 16:00 Acetaminophen/ Hydrocodone Bitart ([place] (5/325)) 1 tab Q6H PRN PO MODERATE PAIN LEVEL 4-6; Start 11/11/16 at 16:00 Docusate Sodium (Colace) 100 mg Q12H PRN PO CONSTIPATION; Start 11/11/16 at 16: 00 Magnesium Hydroxide (Milk Of Mag) 30 ml DAILY PRN PO CONSTIPATION; Start at 16:00 Sodium Biphosphate/ Sodium Phosphate (Fleet Enema) 133 ml DAILY PRN [place] CONSTIPATION; Start 11/11/16 at 16:00 Lorazepam (Ativan) 0.5 mg Q6H PRN IV ANXIETY; Start 11/11/16 at 16:00 Hydralazine HCl (Apresoline) 10 mg Q6H PRN IV ELEVATED BLOOD PRESSURE; Start at 16:00 Nitroglycerin (Nitroglycerin (Sl Tab) 0.4 Mg) 1 tab Q5M PRN SL ANGINA Last administered on 11/11/16 23:25; Admin Dose 1 TAB; Start 11/11/16 at 16:00 Efavirenz (Sustiva) 600 mg DAILY PO Last administered on 11/14/16 08:34; Admin Dose 600 MG; Start 11/12/16 at 09:00 Emtricitabine/ Tenofovir (Truvada) 1 tab DAILY PO Last administered on 08:31; Admin Dose 1 TAB; Start 11/12/16 at 09:00 Sucralfate (Carafate) 1 gm QID PO Last administered on 11/14/16 12:50; Admin Dose 1 GM; Start 11/11/16 at 17:00 Valganciclovir 450 mg 450 mg Q12 PO Last administered on 11/14/16 08:31; Admin Dose 450 MG; Start 11/11/16 at 21:00 Pantoprazole/ Sodium Chloride (Protonix Iv/NS) 100 ml @ 10 mls/hr Q10H IV Last administered on 11/14/16 09:50; Admin Dose 10 MLS/HR; Start 11/11/16 at 21 :30 Collagenase (Santyl) 1 applic DAILY TOP Last administered on 11/14/16 08:33; Admin Dose 1 APPLIC; Start 11/12/16 at 13:00 Collagenase (Santyl) 1 applic PRN PRN TOP WOUND CARE; Start 11/12/16 at 12:00 Mesalamine (Delzicol Dr) 800 mg QID PO Last administered on 11/14/16 12:50; Admin Dose 800 MG; Start 11/12/16 at 21:00 Vancomycin HCl (Vancomycin Oral Syringe) 250 mg Q6 PO Last administered on 11/14 12:51; Admin Dose 250 MG; Start 11/12/16 at 19:30 Fluconazole (Diflucan) 100 mg DAILY PO Last administered on 11/14/16 08:32; Admin Dose 100 MG; Start 11/13/16 at 09:00 Metoclopramide HCl 10 mg 10 mg Q6 IV Last administered on 11/14/16 12:50; Admin Dose 10 MG; Start 11/13/16 at 00:00 Dextrose/Sodium Chloride (D5-NS) 1,000 ml @ 100 mls/hr Q10H IV Last administered on 11/14/16 04:28; Admin Dose 100 MLS/HR; Start 11/13/16 at 10:30 ; Status Future Hold Lactobacillus Acidophilus (Florajen3 Capsule) 1 each BID PO Last administered on 11/14/16 08:31; Admin Dose 1 EACH; Start 11/13/16 at 21:00 Acetaminophen/ Hydrocodone Bitart 1 tab 1 tab Q4H PRN PO severe pain Last administered on 11/14/16 08:32; Admin Dose 1 TAB; Start 11/13/16 at 20:30 Albumin Human (Albumin Human 25%) 50 ml @ 100 mls/hr Q8H IV Last administered on 11/14/16 07:25; Admin Dose 100 MLS/HR; Start 11/14/16 at 07:30; Stop at 23:59 Morphine Sulfate 2 mg 2 mg Q4H PRN IV SEVERE PAIN LEVEL 7-10; Start 11/14/16 at 14:15 Ertapenem/Sodium Chloride (Invanz/NS) 100 ml @ 200 mls/hr Q24H IVPB ; Start at 14:30 MYCHAL COLON November 14, 2016 14:31
[2016-11-14] MEDS: ERTAPENEM SODIUM 1 GM in SOD CHLORIDE 0.9% 100 ML IVPB SCH (15:15)
--- NOTE | 2016-11-14 15:55 | RADRPT ---
PROCEDURE: Chest Radiograph. CLINICAL INDICATION: Service breath. Fluid overload. TECHNIQUE: Single frontal chest radiograph. COMPARISON: Chest radiograph 11/12/2016 FINDINGS: The patient is rotated. Heart size is poorly evaluate. There is moderate central vascular congesti on and diffuse interstitial opacities suggesting pulmonary edema. There is more focal air space dis ease in the left mid lung zone and base with suggested small left pleural effusion. The bones are i ntact. IMPRESSION: 1. Interval development of moderate central vascular congestion and suggested pulmonary edema phil tible with suspected fluid overload. 2. More dense opacification left perihilar and basilar regions may represent dense pulmonary edema, atelectasis, or infiltrate with probable underlying small effusion. RPTAT: AA .Duncan Tapia MD, Date Time Electronically viewed and signed by .Duncan Tapia MD, on 11/14/2016 15:54 .B/
[2016-11-14 18:21] LABS: HEMATOCRIT 27.6 % (37.0-47.0); HEMOGLOBIN 9.3 g/dl (12.0-16.0)
[2016-11-15] VITALS (24 sets, daily range): BP systolic 123–143; BP diastolic 83–100; PULSE 93–117; RESP 15–33
[2016-11-15 01:53] LABS: HEMATOCRIT 25.9 % (37.0-47.0); HEMOGLOBIN 8.6 g/dl (12.0-16.0)
[2016-11-15 05:50] LABS: ADD SCAN DIFF NO
[2016-11-15 05:51] LABS: ABNORMAL IP MESSAGE 1; HEMATOCRIT 23.3 % (37.0-47.0); HEMOGLOBIN 7.8 g/dl (12.0-16.0); MEAN CORPUSCULAR HEMOGLOBIN 27.9 pg (29.0-33.0); MEAN CORPUSCULAR HGB CONC 33.5 g/dl (32.0-37.0); MEAN CORPUSCULAR VOLUME 83.2 fl (82.0-101.0); RED CELL DISTRIBUTION WIDTH 17.4 % (11.5-14.5); WHITE BLOOD COUNT 8.2 10^3/ul (4.8-10.8)
[2016-11-15 06:21] LABS: PLATELET COUNT 44 10^3/UL (140-415)
[2016-11-15 06:25] LABS: CREATININE 0.39 mg/dl (0.44-1.00)
[2016-11-15] MEDS: METOCLOPRAMIDE 10 MG INJ IV SCH ×3 (06:27→18:13)
[2016-11-15] MEDS: PANTOPRAZOLE IV 80 MG in SOD CHLORIDE 0.9% 100 ML IV SCH ×2 (06:27→16:36)
[2016-11-15] MEDS: VANCOMYCIN HCL 250 MG/5ML POSYG PO SCH ×3 (06:28→18:13)
[2016-11-15 07:05] LABS: POTASSIUM 2.8 mmol/L (3.5-5.1)
[2016-11-15] MEDS: POTASSIUM CHLORIDE 50 ML IVPB PRN ×3 (07:28→10:52)
[2016-11-15] MEDS: EFAVIRENZ 600 MG TAB PO SCH (08:55)
[2016-11-15] MEDS: L ACIDOPHIL/B LACTIS/B LONGUM CAPSULE PO SCH ×2 (08:55→20:37)
[2016-11-15] MEDS: VALGANCICLOVIR 450 MG TAB PO SCH ×2 (08:55→20:36)
[2016-11-15] MEDS: MESALAMINE (EC) 400 MG CAP PO SCH ×4 (08:55→20:36)
[2016-11-15] MEDS: FLUCONAZOLE 100 MG TAB PO SCH (08:55)
[2016-11-15] MEDS: SUCRALFATE 1 GM TAB PO SCH ×4 (08:55→20:36)
[2016-11-15] MEDS: EMTRICITABINE/TENOFOVIR TAB PO SCH (08:55)
[2016-11-15] MEDS: COLLAGENASE 30 GM TUBE TOP SCH (08:57)
--- NOTE | 2016-11-15 09:28 | PN ---
Date/Time of Note Date/Time of Note DATE: 11/15/16 TIME: 09:25 Assessment/Plan VTE Prophylaxis VTE Prophylaxis Intervention: SCD's Lines/Catheters IV Catheter Type (from Nrs): PICC Line Central line still needed: Yes Urinary Cath still in place: Yes Reason Cath still needed: urinary retention Assessment/Plan Assessment/Plan Anemia hgb 7.8 EGD 11/12/2016 Severe ulcerated esophagitis, rule out opportunistic infections; i.e., Inocencia, CMV, others. Biopsies obtained Colonoscopy 11/12/2016 [place] ulcerative colitis, biopsies obtained, rule out Clostridium difficile, CMB, inflammatory bowel disease. Moderate sized internal hemorrhoids * HIV disease. Plan * continue present management * awaiting biopsy result Subjective 24 Hr Interval Summary Free Text/Dictation * Patient seen and examined * Denies any diarrhea but complains of occassional abdominal pain * still awaiting biopsy results Exam/Review of Systems Vital Signs Vitals Vital Signs Date Time Temp Pulse Resp B/P Pulse Ox O2 Delivery O2 Flow Rate FiO2 11/15/16 08:00 101 11/15/16 07:00 21 125/89 11/15/16 06:00 98 Room Air 11/15/16 04:00 98.2 11/13/16 16:20 21 11/13/16 05:38 2.0 Intake and Output 11/14/16 11/14/16 11/15/16 15:00 23:00 07:00 Intake Total 1080 ml 475 ml 50 ml Output Total 245 ml 240 ml 280 ml Balance 835 ml 235 ml -230 ml Exam Constitutional: alert, frail Head: normocephalic Eyes: nl sclera Neck: non-tender, supple Respiratory: clear to auscultation, normal air movement Cardiovascular: nl pulses, regular rate and rhythm Gastrointestinal: non-tender, soft Musculoskeletal: nl extremities to inspection Results Result Diagram: 11/15/16 0430 11/15/16 0430 Results 24 hrs Laboratory Tests Test 11/14/16 13:25 11/14/16 18:05 11/15/16 00:33 11/15/16 04:30 Hemoglobin 10.4 #L 9.3 L 8.6 L 7.8 L Hematocrit 31.7 #L 27.6 L 25.9 L 23.3 L White Blood Count 8.2 # Red Blood Count 2.80 L Mean Corpuscular Volume 83.2 Mean Corpuscular Hemoglobin 27.9 L Mean Corpuscular Hemoglobin Concent 33.5 Red Cell Distribution Width 17.4 H Platelet Count 44 L Mean Platelet Volume Neutrophils % Eosinophils % Neutrophils # Eosinophils # Sodium Level 135 Potassium Level 2.8 *L Chloride Level 112 H Carbon Dioxide Level 24 Anion Gap 2 L Blood Urea Nitrogen 13 Creatinine 0.39 L Glucose Level 84 Calcium Level 7.0 L Test 11/15/16 05:05 Lab Scanned Report BLOOD TRANSFUSION Medications Medications Current Medications Ondansetron HCl (Zofran Inj) 4 mg Q6H PRN IV NAUSEA AND/OR VOMITING; Start at 16:00 Acetaminophen (Tylenol Tab) 650 mg Q6H PRN PO PAIN LEVEL 1-3 OR FEVER; Start at 16:00 Acetaminophen/ Hydrocodone Bitart ([place] (5/325)) 1 tab Q6H PRN PO MODERATE PAIN LEVEL 4-6 Last administered on 11/14/16 20:22; Admin Dose 1 TAB; Start at 16:00 Docusate Sodium (Colace) 100 mg Q12H PRN PO CONSTIPATION; Start 11/11/16 at 16: 00 Magnesium Hydroxide (Milk Of Mag) 30 ml DAILY PRN PO CONSTIPATION; Start at 16:00 Sodium Biphosphate/ Sodium Phosphate (Fleet Enema) 133 ml DAILY PRN [place] CONSTIPATION; Start 11/11/16 at 16:00 Lorazepam (Ativan) 0.5 mg Q6H PRN IV ANXIETY; Start 11/11/16 at 16:00 Hydralazine HCl (Apresoline) 10 mg Q6H PRN IV ELEVATED BLOOD PRESSURE; Start at 16:00 Nitroglycerin (Nitroglycerin (Sl Tab) 0.4 Mg) 1 tab Q5M PRN SL ANGINA Last administered on 11/11/16 23:25; Admin Dose 1 TAB; Start 11/11/16 at 16:00 Efavirenz (Sustiva) 600 mg DAILY PO Last administered on 11/15/16 08:55; Admin Dose 600 MG; Start 11/12/16 at 09:00 Emtricitabine/ Tenofovir (Truvada) 1 tab DAILY PO Last administered on 08:55; Admin Dose 1 TAB; Start 11/12/16 at 09:00 Sucralfate (Carafate) 1 gm QID PO Last administered on 11/15/16 08:55; Admin Dose 1 GM; Start 11/11/16 at 17:00 Valganciclovir 450 mg 450 mg Q12 PO Last administered on 11/15/16 08:55; Admin Dose 450 MG; Start 11/11/16 at 21:00 Pantoprazole/ Sodium Chloride (Protonix Iv/NS) 100 ml @ 10 mls/hr Q10H IV Last administered on 11/15/16 06:27; Admin Dose 10 MLS/HR; Start 11/11/16 at 21 :30 Collagenase (Santyl) 1 applic DAILY TOP Last administered on 11/15/16 08:57; Admin Dose 1 APPLIC; Start 11/12/16 at 13:00 Collagenase (Santyl) 1 applic PRN PRN TOP WOUND CARE; Start 11/12/16 at 12:00 Mesalamine (Delzicol Dr) 800 mg QID PO Last administered on 11/15/16 08:55; Admin Dose 800 MG; Start 11/12/16 at 21:00 Vancomycin HCl (Vancomycin Oral Syringe) 250 mg Q6 PO Last administered on 11/15 06:28; Admin Dose 250 MG; Start 11/12/16 at 19:30 Fluconazole (Diflucan) 100 mg DAILY PO Last administered on 11/15/16 08:55; Admin Dose 100 MG; Start 11/13/16 at 09:00 Metoclopramide HCl 10 mg 10 mg Q6 IV Last administered on 11/15/16 06:27; Admin Dose 10 MG; Start 11/13/16 at 00:00 Dextrose/Sodium Chloride (D5-NS) 1,000 ml @ 100 mls/hr Q10H IV Last administered on 11/14/16 04:28; Admin Dose 100 MLS/HR; Start 11/13/16 at 10:30 ; Status Future Hold Lactobacillus Acidophilus (Florajen3 Capsule) 1 each BID PO Last administered on 11/15/16 08:55; Admin Dose 1 EACH; Start 11/13/16 at 21:00 Acetaminophen/ Hydrocodone Bitart ([place] (5/325)) 1 tab Q4H PRN PO severe pain Last administered on 11/14/16 08:32; Admin Dose 1 TAB; Start 11/13/16 at 20:30 Morphine Sulfate 2 mg 2 mg Q4H PRN IV SEVERE PAIN LEVEL 7-10; Start 11/14/16 at 14:15 Ertapenem/Sodium Chloride (Invanz/NS) 100 ml @ 200 mls/hr Q24H IVPB Last administered on 11/14/16 15:15; Admin Dose 200 MLS/HR; Start 11/14/16 at 14:30 LM LAMB MD November 15, 2016 09:28
--- NOTE | 2016-11-15 10:33 | PN ---
Date/Time of Note Date/Time of Note DATE: 11/15/16 TIME: 10:25 Assessment/Plan VTE Prophylaxis VTE Prophylaxis Intervention: SCD's Lines/Catheters IV Catheter Type (from [facility]): PICC Line Central line still needed: Yes Urinary Cath still in place: Yes Reason Cath still needed: urinary retention Assessment/Plan Chief Complaint/Hosp Course ASSESSMENT AND PLAN: 41-year-old female coming in with generalized weakness and rectal bleeding with severe anemia with a prior history of human immunodeficiency virus. 1. Anemia - s/p pRBC transfusion x 5 this admission. + LGI bleeding present on admission. S/p plt transfusion as well earlier this admission. EGD showed severe ulcerated esophagitis, rule out opportunistic infections; i.e., Inocencia, CMV, others. Biopsies obtained. - monitor severe anemia and the lethargy - IV fluid hydration, f/u GI rec's - Pain control medications as needed. - Monitor her hemoglobin every 6 hours as well - continue PPI double dose, Reglan plus Carafate plus Diflucan. 2. History of HIV - pt states she has not been taking HAART meds for the last few mths. ID on case. Also wound Cx + for enterococcus and ESBL ecoli. Ucx = + ecoli + Proteus. - Continue antiretroviral medications as well, fluconazole - f/u CD4 ct and HIV VL, f/u ID consult rec's - Invanz, f/u ID rec's 3. Generalized weakness secondary to #1. Continue to follow up plans on #1. 4. Gastrointestinal prophylaxis, continue PPI. 5. Deep venous thrombosis prophylaxis. SCDs, avoid all anticoagulants given the patient's severe anemia. Critical care time spent with pt care today = 40 min. Problems: Subjective 24 Hr Interval Summary Free Text/Dictation Pt a bit more alert, had pRBC transfusion one unit yesterday. Exam/Review of Systems Vital Signs Vitals Vital Signs Date Time Temp Pulse Resp B/P Pulse Ox O2 Delivery O2 Flow Rate FiO2 11/15/16 09:00 115 22 123/94 98 Room Air 11/15/16 08:00 97.9 11/13/16 16:20 21 11/13/16 05:38 2.0 Intake and Output 11/14/16 11/14/16 11/15/16 15:00 23:00 07:00 Intake Total 1080 ml 475 ml 50 ml Output Total 245 ml 240 ml 280 ml Balance 835 ml 235 ml -230 ml Exam GENERAL: The patient is lying in bed, frail-appearing female answers questions , but lethargic HEENT: There is some pallor noted on the conjunctiva, otherwise pupils equal, round, react to light. Extraocular muscles intact. NECK: Supple, no thyromegaly. LUNGS: Decreased breath sounds bilaterally. CARDIOVASCULAR: Tachycardic, heart rate. No rubs or gallops. ABDOMEN: Soft, nontender, nondistended. Normal bowel sounds. No rebound or guarding. MUSCULOSKELETAL: No lower extremity edema bilaterally. NEUROLOGIC: no focal deficits Results Result Diagram: 11/15/16 0430 11/15/16 043 Results 24 hrs Laboratory Tests Test 11/14/16 13:25 11/14/16 18:05 11/15/16 00:33 11/15/16 04:30 Hemoglobin 10.4 #L 9.3 L 8.6 L 7.8 L Hematocrit 31.7 #L 27.6 L 25.9 L 23.3 L White Blood Count 8.2 # Red Blood Count 2.80 L Mean Corpuscular Volume 83.2 Mean Corpuscular Hemoglobin 27.9 L Mean Corpuscular Hemoglobin Concent 33.5 Red Cell Distribution Width 17.4 H Platelet Count 44 L Mean Platelet Volume Neutrophils % Eosinophils % Neutrophils # Eosinophils # Sodium Level 135 Potassium Level 2.8 *L Chloride Level 112 H Carbon Dioxide Level 24 Anion Gap 2 L Blood Urea Nitrogen 13 Creatinine 0.39 L Glucose Level 84 Calcium Level 7.0 L Test 11/15/16 05:05 Lab Scanned Report BLOOD TRANSFUSION Medications Medications Current Medications Ondansetron HCl (Zofran Inj) 4 mg Q6H PRN IV NAUSEA AND/OR VOMITING; Start at 16:00 Acetaminophen (Tylenol Tab) 650 mg Q6H PRN PO PAIN LEVEL 1-3 OR FEVER; Start at 16:00 Acetaminophen/ Hydrocodone Bitart (Loraine (5/325)) 1 tab Q6H PRN PO MODERATE PAIN LEVEL 4-6 Last administered on 11/14/16t 20:22; Admin Dose 1 TAB; Start at 16:00 Docusate Sodium (Colace) 100 mg Q12H PRN PO CONSTIPATION; Start 11/11/16 at 16: 00 Magnesium Hydroxide (Milk Of Mag) 30 ml DAILY PRN PO CONSTIPATION; Start at 16:00 Sodium Biphosphate/ Sodium Phosphate (Fleet Enema) 133 ml DAILY PRN [place] CONSTIPATION; Start 11/11/16 at 16:00 Lorazepam (Ativan) 0.5 mg Q6H PRN IV ANXIETY; Start 11/11/16 at 16:00 Hydralazine HCl (Apresoline) 10 mg Q6H PRN IV ELEVATED BLOOD PRESSURE; Start at 16:00 Nitroglycerin (Nitroglycerin (Sl Tab) 0.4 Mg) 1 tab Q5M PRN SL ANGINA Last administered on 11/11/16 23:25; Admin Dose 1 TAB; Start 11/11/16 at 16:00 Efavirenz (Sustiva) 600 mg DAILY PO Last administered on 11/15/16 08:55; Admin Dose 600 MG; Start 11/12/16 at 09:00 Emtricitabine/ Tenofovir (Truvada) 1 tab DAILY PO Last administered on 08:55; Admin Dose 1 TAB; Start 11/12/16 at 09:00 Sucralfate (Carafate) 1 gm QID PO Last administered on 11/15/16 08:55; Admin Dose 1 GM; Start 11/11/16 at 17:00 Valganciclovir 450 mg 450 mg Q12 PO Last administered on 11/15/16 08:55; Admin Dose 450 MG; Start 11/11/16 at 21:00 Pantoprazole/ Sodium Chloride (Protonix Iv/NS) 100 ml @ 10 mls/hr Q10H IV Last administered on 11/15/16 06:27; Admin Dose 10 MLS/HR; Start 11/11/16 at 21 :30 Collagenase (Santyl) 1 applic DAILY TOP Last administered on 11/15/16 08:57; Admin Dose 1 APPLIC; Start 11/12/16 at 13:00 Collagenase (Santyl) 1 applic PRN PRN TOP WOUND CARE; Start 11/12/16 at 12:00 Mesalamine (Delzicol Dr) 800 mg QID PO Last administered on 11/15/16 08:55; Admin Dose 800 MG; Start 11/12/16 at 21:00 Vancomycin HCl (Vancomycin Oral Syringe) 250 mg Q6 PO Last administered on 11/15 06:28; Admin Dose 250 MG; Start 11/12/16 at 19:30 Fluconazole (Diflucan) 100 mg DAILY PO Last administered on 11/15/16 08:55; Admin Dose 100 MG; Start 11/13/16 at 09:00 Metoclopramide HCl 10 mg 10 mg Q6 IV Last administered on 11/15/16 06:27; Admin Dose 10 MG; Start 11/13/16 at 00:00 Dextrose/Sodium Chloride (D5-NS) 1,000 ml @ 100 mls/hr Q10H IV Last administered on 11/14/16 04:28; Admin Dose 100 MLS/HR; Start 11/13/16 at 10:30 ; Status Future Hold Lactobacillus Acidophilus (Florajen3 Capsule) 1 each BID PO Last administered on 11/15/16 08:55; Admin Dose 1 EACH; Start 11/13/16 at 21:00 Acetaminophen/ Hydrocodone Bitart (Loraine (5/325)) 1 tab Q4H PRN PO severe pain Last administered on 11/14/16 08:32; Admin Dose 1 TAB; Start 11/13/16 at 20:30 Morphine Sulfate 2 mg 2 mg Q4H PRN IV SEVERE PAIN LEVEL 7-10; Start 11/14/16 at 14:15 Ertapenem/Sodium Chloride (Invanz/NS) 100 ml @ 200 mls/hr Q24H IVPB Last administered on 11/14/16 15:15; Admin Dose 200 MLS/HR; Start 11/14/16 at 14:30 JESUS RUIZ November 15, 2016 10:32
--- NOTE | 2016-11-15 10:48 | CONS ---
Date/Time of Note Date/Time of Note DATE: 11/15/16 TIME: 10:48 Assessment/Plan Assessment/Plan Chief Complaint/Hosp Course ID PROGRESS NOTE TOTAL ABX DAY # 1. IV Rocephin. 2. Fluconazole. 3. Oral vancomycin. 4. Valganciclovir 5. HIV ARV MEDS: Truvada + Sustiva. 24H INTERVAL SUMMARY * Awake, alert, responsive, follows commands, generalized weakness * Non-verbal, nods yes and no - tachy w/HR 116, pallor noted, lip lesion, no fevers * 1. MICROBIOLOGY: Wound culture growing E. coli ESBL, Enterococcus species. Urine culture grew E. coli and Proteus mirabilis. PHYSICAL EXAMINATION: GENERAL: VSS,NAD, appears weak, frail, no fevers HEENT: Lower lip lesion NECK: Moves neck, appears supple, CHEST: Equal chest appears cachetic, without dyspnea on observation, diminished bi-basilar HEART: Pulse RRR -- tachy ABDOMEN: Soft, benign EXTREMITIES: Warm, moves left leg, bi-pedal edema SKIN: Warm, dry, tattoos, wounds see photos ID ASSESSMENT: 41 yo F admitted with: 1. Acute anemia secondary to gastrointestinal bleed with EGD revealed severe ulcerative esophagitis, rule out opportunistic infection. 2. Polymicrobial urinary tract infection. 3. Multiple chronic wounds. 4. Human immunodeficiency virus, on antiretrovirals. 5. History of Inocencia esophagitis. 6. Colitis as per CT of the abdomen. 7. Severe deconditioning. (-)MRSA NARES INVASIVES: * PIV ABX ALLERGIES: None to ABX CURRENT ABX: 1. IV Rocephin. 2. Fluconazole. 3. Oral vancomycin. 4. Valganciclovir 5. HIV ARV MEDS: Truvada + Sustiva. ID RECOMMENDATIONS Continue current ABX and supportive care...will continue to follow, providing coverage for ID team over the 3-day weekend. . Problems: Consultation Date/Type/Reason Admit Date/Time November 11, 2016 at 15:19 Initial Consult Date 11/11/16 Type of Consultation: ID Referring Provider: JESUS RUIZ Exam/Review of Systems Vital Signs Vitals Vital Signs Date Time Temp Pulse Resp B/P Pulse Ox O2 Delivery O2 Flow Rate FiO2 11/15/16 09:00 115 22 123/94 98 Room Air 11/15/16 08:00 97.9 11/13/16 16:20 21 11/13/16 05:38 2.0 Intake and Output 11/14/16 11/14/16 11/15/16 15:00 23:00 07:00 Intake Total 1080 ml 475 ml 50 ml Output Total 245 ml 240 ml 280 ml Balance 835 ml 235 ml -230 ml Results Result Diagram: 11/15/16 0430 11/15/16 0430 Results 24 hrs Laboratory Tests Test 11/14/16 13:25 11/14/16 18:05 11/15/16 00:33 11/15/16 04:30 Hemoglobin 10.4 #L 9.3 L 8.6 L 7.8 L Hematocrit 31.7 #L 27.6 L 25.9 L 23.3 L White Blood Count 8.2 # Red Blood Count 2.80 L Mean Corpuscular Volume 83.2 Mean Corpuscular Hemoglobin 27.9 L Mean Corpuscular Hemoglobin Concent 33.5 Red Cell Distribution Width 17.4 H Platelet Count 44 L Mean Platelet Volume Neutrophils % Eosinophils % Neutrophils # Eosinophils # Sodium Level 135 Potassium Level 2.8 *L Chloride Level 112 H Carbon Dioxide Level 24 Anion Gap 2 L Blood Urea Nitrogen 13 Creatinine 0.39 L Glucose Level 84 Calcium Level 7.0 L Test 11/15/16 05:05 Lab Scanned Report BLOOD TRANSFUSION Medications Medications Current Medications Ondansetron HCl (Zofran Inj) 4 mg Q6H PRN IV NAUSEA AND/OR VOMITING; Start at 16:00 Acetaminophen (Tylenol Tab) 650 mg Q6H PRN PO PAIN LEVEL 1-3 OR FEVER; Start at 16:00 Acetaminophen/ Hydrocodone Bitart ([place] (5/325)) 1 tab Q6H PRN PO MODERATE PAIN LEVEL 4-6 Last administered on 11/14/16t 20:22; Admin Dose 1 TAB; Start at 16:00 Docusate Sodium (Colace) 100 mg Q12H PRN PO CONSTIPATION; Start 11/11/16 at 16: 00 Magnesium Hydroxide (Milk Of Mag) 30 ml DAILY PRN PO CONSTIPATION; Start at 16:00 Sodium Biphosphate/ Sodium Phosphate (Fleet Enema) 133 ml DAILY PRN [place] CONSTIPATION; Start 11/11/16 at 16:00 Lorazepam (Ativan) 0.5 mg Q6H PRN IV ANXIETY; Start 11/11/16 at 16:00 Hydralazine HCl (Apresoline) 10 mg Q6H PRN IV ELEVATED BLOOD PRESSURE; Start at 16:00 Nitroglycerin (Nitroglycerin (Sl Tab) 0.4 Mg) 1 tab Q5M PRN SL ANGINA Last administered on 11/11/16 23:25; Admin Dose 1 TAB; Start 11/11/16 at 16:00 Efavirenz (Sustiva) 600 mg DAILY PO Last administered on 11/15/16 08:55; Admin Dose 600 MG; Start 11/12/16 at 09:00 Emtricitabine/ Tenofovir (Truvada) 1 tab DAILY PO Last administered on 08:55; Admin Dose 1 TAB; Start 11/12/16 at 09:00 Sucralfate (Carafate) 1 gm QID PO Last administered on 11/15/16 08:55; Admin Dose 1 GM; Start 11/11/16 at 17:00 Valganciclovir 450 mg 450 mg Q12 PO Last administered on 11/15/16 08:55; Admin Dose 450 MG; Start 11/11/16 at 21:00 Pantoprazole/ Sodium Chloride (Protonix Iv/NS) 100 ml @ 10 mls/hr Q10H IV Last administered on 11/15/16 06:27; Admin Dose 10 MLS/HR; Start 11/11/16 at 21 :30 Collagenase (Santyl) 1 applic DAILY TOP Last administered on 11/15/16 08:57; Admin Dose 1 APPLIC; Start 11/12/16 at 13:00 Collagenase (Santyl) 1 applic PRN PRN TOP WOUND CARE; Start 11/12/16 at 12:00 Mesalamine (Delzicol Dr) 800 mg QID PO Last administered on 11/15/16 08:55; Admin Dose 800 MG; Start 11/12/16 at 21:00 Vancomycin HCl (Vancomycin Oral Syringe) 250 mg Q6 PO Last administered on 11/15 06:28; Admin Dose 250 MG; Start 11/12/16 at 19:30 Fluconazole (Diflucan) 100 mg DAILY PO Last administered on 11/15/16 08:55; Admin Dose 100 MG; Start 11/13/16 at 09:00 Metoclopramide HCl 10 mg 10 mg Q6 IV Last administered on 11/15/16 06:27; Admin Dose 10 MG; Start 11/13/16 at 00:00 Dextrose/Sodium Chloride (D5-NS) 1,000 ml @ 100 mls/hr Q10H IV Last administered on 11/14/16 04:28; Admin Dose 100 MLS/HR; Start 11/13/16 at 10:30 ; Status Future Hold Lactobacillus Acidophilus (Florajen3 Capsule) 1 each BID PO Last administered on 11/15/16 08:55; Admin Dose 1 EACH; Start 11/13/16 at 21:00 Acetaminophen/ Hydrocodone Bitart ([place] (5/325)) 1 tab Q4H PRN PO severe pain Last administered on 11/14/16 08:32; Admin Dose 1 TAB; Start 11/13/16 at 20:30 Morphine Sulfate 2 mg 2 mg Q4H PRN IV SEVERE PAIN LEVEL 7-10; Start 11/14/16 at 14:15 Ertapenem/Sodium Chloride (Invanz/NS) 100 ml @ 200 mls/hr Q24H IVPB Last administered on 11/14/16 15:15; Admin Dose 200 MLS/HR; Start 11/14/16 at 14:30 NILDA JOSE NP November 15, 2016 10:48
[2016-11-15 10:57] LABS: LYMPHOCYTES # 0.5 10^3/ul (0.8-2.9); MONOCYTE # 0.2 10^3/ul (0.3-0.9); NEUTROPHIL # 5.6 10^3/ul (1.6-7.5)
[2016-11-15 12:21] LABS: HEMATOCRIT 24.4 % (37.0-47.0)
[2016-11-15 13:11] LABS: LYMPHOCYTE - CD4/CD8 RATIO 0.49 (0.86-5.00)
[2016-11-15] MEDS: ERTAPENEM SODIUM 1 GM in SOD CHLORIDE 0.9% 100 ML IVPB SCH (14:43)
[2016-11-15 17:09] LABS: LYMPHOCYTE - CD4/CD8 RATIO 0.31 (0.86-5.00)
[2016-11-15 18:58] LABS: HEMATOCRIT 26.1 % (37.0-47.0); HEMOGLOBIN 8.7 g/dl (12.0-16.0)
[2016-11-15] MEDS ORDERED: POTASSIUM CHLORIDE 250 ML IVPB ONE (20:30)
[2016-11-16] VITALS (24 sets, daily range): BP systolic 123–147; BP diastolic 83–109; PULSE 96–126; RESP 15–31
[2016-11-16] MEDS: METOCLOPRAMIDE 10 MG INJ IV SCH ×5 (00:14→23:41)
[2016-11-16] MEDS: VANCOMYCIN HCL 250 MG/5ML POSYG PO SCH ×5 (00:14→23:41)
[2016-11-16 01:30] LABS: HEMATOCRIT 23.9 % (37.0-47.0); HEMOGLOBIN 8.1 g/dl (12.0-16.0)
[2016-11-16] MEDS: PANTOPRAZOLE IV 80 MG in SOD CHLORIDE 0.9% 100 ML IV SCH ×4 (02:41→23:41)
[2016-11-16] MEDS: morphine 4 MG/ML VIAL IV PRN ×2 (05:35→19:22)
[2016-11-16 05:53] LABS: ADD SCAN DIFF NO
[2016-11-16 06:01] LABS: ABNORMAL IP MESSAGE 1; HEMATOCRIT 23.8 % (37.0-47.0); MEAN CORPUSCULAR HEMOGLOBIN 27.6 pg (29.0-33.0); MEAN CORPUSCULAR HGB CONC 33.6 g/dl (32.0-37.0); MEAN CORPUSCULAR VOLUME 82.1 fl (82.0-101.0); MEAN PLATELET VOLUME 10.3 fl (7.4-10.4); PLATELET COUNT 52 10^3/UL (140-415); RED CELL DISTRIBUTION WIDTH 17.4 % (11.5-14.5)
[2016-11-16 06:37] LABS: CALCIUM 6.9 mg/dl (8.4-10.2); CREATININE 0.4 mg/dl (0.44-1.00); POTASSIUM 3.2 mmol/L (3.5-5.1)
[2016-11-16] MEDS: MESALAMINE (EC) 400 MG CAP PO SCH ×4 (09:19→21:47)
[2016-11-16] MEDS: SUCRALFATE 1 GM TAB PO SCH ×4 (09:19→21:48)
[2016-11-16] MEDS: EFAVIRENZ 600 MG TAB PO SCH (09:19)
[2016-11-16] MEDS: FLUCONAZOLE 100 MG TAB PO SCH (09:19)
[2016-11-16] MEDS: VALGANCICLOVIR 450 MG TAB PO SCH ×2 (09:19→21:48)
[2016-11-16] MEDS: EMTRICITABINE/TENOFOVIR TAB PO SCH (09:19)
[2016-11-16] MEDS: L ACIDOPHIL/B LACTIS/B LONGUM CAPSULE PO SCH ×2 (09:19→21:47)
[2016-11-16] MEDS: POTASSIUM CHLORIDE 50 ML IVPB PRN ×3 (09:24→11:49)
--- NOTE | 2016-11-16 09:32 | PN ---
Date/Time of Note Date/Time of Note DATE: 11/16/16 TIME: 09:29 Assessment/Plan VTE Prophylaxis VTE Prophylaxis Intervention: SCD's Lines/Catheters IV C[facility] Type (from [facility] PICC Line Central line still needed: Yes Urinary Cath still in place: Yes Reason Cath still needed: urinary retention Assessment/Plan Chief Complaint/Hosp Course ASSESSMENT AND PLAN: 41-year-old female coming in with generalized weakness and rectal bleeding with severe anemia with a prior history of human immunodeficiency virus. 1. Anemia - s/p pRBC transfusion x 5 this admission. + LGI bleeding present on admission. S/p plt transfusion as well. EGD showed severe ulcerated esophagitis , rule out opportunistic infections; i.e., Inocencia, CMV, others. Biopsies obtained. - monitor severe anemia and the lethargy - IV fluid hydration, f/u GI rec's - Pain control medications as needed. - Monitor her hemoglobin every 6 hours as well - continue PPI double dose, Reglan plus Carafate plus Diflucan. 2. History of HIV - pt states she has not been taking HAART meds for the last few mths. ID on case. Also wound Cx + for enterococcus and ESBL ecoli. Ucx = + ecoli + Proteus. CD4 ct <200, HIV viral load is 71,000 (elevated). - Continue antiretroviral medications as well, fluconazole, add Bactrim DS ( cover for opportunistic infx's since technically = + AIDS) - f/u ID consult rec's - Invanz, f/u ID rec's 3. Generalized weakness secondary to #1. Continue to follow up plans on #1. 4. Gastrointestinal prophylaxis, continue PPI. 5. Deep venous thrombosis prophylaxis. SCDs, avoid all anticoagulants given the patient's severe anemia. Critical care time spent with pt care today = 40 min. Problems: Subjective 24 Hr Interval Summary Free Text/Dictation Pt more alert, had some chest pressure, denies SOB. Exam/Review of Systems Vital Signs Vitals Vital Signs Date Time Temp Pulse Resp B/P Pulse Ox O2 Delivery O2 Flow Rate FiO2 11/16/16 07:00 97 18 129/97 98 Room Air 11/16/16 04:00 98.6 11/15/16 16:51 21 11/13/16 05:38 2.0 Intake and Output 11/15/16 11/15/16 11/16/16 15:00 23:00 07:00 Intake Total 365 ml 630.0 ml 130 ml Output Total 270 ml 340 ml 356 ml Balance 95 ml 290.0 ml -226 ml Exam GENERAL: The patient is lying in bed, frail-appearing female answers questions , less lethargic HEENT: There is some pallor noted on the conjunctiva, otherwise pupils equal, round, react to light. Extraocular muscles intact. NECK: Supple, no thyromegaly. LUNGS: Decreased breath sounds bilaterally. CARDIOVASCULAR: S1 S2 heard, heart rate. No rubs or gallops. ABDOMEN: Soft, nontender, nondistended. Normal bowel sounds. No rebound or guarding. MUSCULOSKELETAL: No lower extremity edema bilaterally. NEUROLOGIC: no focal deficits Results Result Diagram: 11/16/16 0445 11/16/16 0445 Results 24 hrs Laboratory Tests Test 11/15/16 12:07 11/15/16 18:20 11/16/16 01:15 11/16/16 04:45 Hemoglobin 8.0 L 8.7 L 8.1 L 8.0 L Hematocrit 24.4 L 26.1 L 23.9 L 23.8 L Potassium Level 2.8 *L 3.2 L White Blood Count 5.0 # Red Blood Count 2.90 L Mean Corpuscular Volume 82.1 Mean Corpuscular Hemoglobin 27.6 L Mean Corpuscular Hemoglobin Concent 33.6 Red Cell Distribution Width 17.4 H Platelet Count 52 L Mean Platelet Volume 10.3 Neutrophils % Eosinophils % Neutrophils # Eosinophils # Sodium Level 142 Chloride Level 113 H Carbon Dioxide Level 25 Anion Gap 7 L Blood Urea Nitrogen 13 Creatinine 0.40 L Glucose Level 82 Calcium Level 6.9 L Medications Medications Current Medications Ondansetron HCl (Zofran Inj) 4 mg Q6H PRN IV NAUSEA AND/OR VOMITING; Start at 16:00 Acetaminophen (Tylenol Tab) 650 mg Q6H PRN PO PAIN LEVEL 1-3 OR FEVER; Start at 16:00 Acetaminophen/ Hydrocodone Bitart ([place] (5/325)) 1 tab Q6H PRN PO MODERATE PAIN LEVEL 4-6 Last administered on 11/14/16t 20:22; Admin Dose 1 TAB; Start at 16:00 Docusate Sodium (Colace) 100 mg Q12H PRN PO CONSTIPATION; Start 11/11/16 at 16: 00 Magnesium Hydroxide (Milk Of Mag) 30 ml DAILY PRN PO CONSTIPATION; Start at 16:00 Sodium Biphosphate/ Sodium Phosphate (Fleet Enema) 133 ml DAILY PRN [place] CONSTIPATION; Start 11/11/16 at 16:00 Lorazepam (Ativan) 0.5 mg Q6H PRN IV ANXIETY; Start 11/11/16 at 16:00 Hydralazine HCl (Apresoline) 10 mg Q6H PRN IV ELEVATED BLOOD PRESSURE; Start at 16:00 Nitroglycerin (Nitroglycerin (Sl Tab) 0.4 Mg) 1 tab Q5M PRN SL ANGINA Last administered on 11/11/16 23:25; Admin Dose 1 TAB; Start 11/11/16 at 16:00 Efavirenz (Sustiva) 600 mg DAILY PO Last administered on 11/16/16 09:19; Admin Dose 600 MG; Start 11/12/16 at 09:00 Emtricitabine/ Tenofovir (Truvada) 1 tab DAILY PO Last administered on 09:19; Admin Dose 1 TAB; Start 11/12/16 at 09:00 Sucralfate (Carafate) 1 gm QID PO Last administered on 11/16/16 09:19; Admin Dose 1 GM; Start 11/11/16 at 17:00 Valganciclovir 450 mg 450 mg Q12 PO Last administered on 11/16/16 09:19; Admin Dose 450 MG; Start 11/11/16 at 21:00 Pantoprazole/ Sodium Chloride (Protonix Iv/NS) 100 ml @ 10 mls/hr Q10H IV Last administered on 11/16/16 02:41; Admin Dose 10 MLS/HR; Start 11/11/16 at 21 :30 Collagenase (Santyl) 1 applic DAILY TOP Last administered on 11/15/16 08:57; Admin Dose 1 APPLIC; Start 11/12/16 at 13:00 Collagenase (Santyl) 1 applic PRN PRN TOP WOUND CARE; Start 11/12/16 at 12:00 Mesalamine (Delzicol Dr) 800 mg QID PO Last administered on 11/16/16 09:19; Admin Dose 800 MG; Start 11/12/16 at 21:00 Vancomycin HCl (Vancomycin Oral Syringe) 250 mg Q6 PO Last administered on 11/16 05:32; Admin Dose 250 MG; Start 11/12/16 at 19:30 Fluconazole (Diflucan) 100 mg DAILY PO Last administered on 11/16/16 09:19; Admin Dose 100 MG; Start 11/13/16 at 09:00 Metoclopramide HCl 10 mg 10 mg Q6 IV Last administered on 11/16/16 05:32; Admin Dose 10 MG; Start 11/13/16 at 00:00 Dextrose/Sodium Chloride (D5-NS) 1,000 ml @ 100 mls/hr Q10H IV Last administered on 11/14/16 04:28; Admin Dose 100 MLS/HR; Start 11/13/16 at 10:30 ; Status Future Hold Lactobacillus Acidophilus (Florajen3 Capsule) 1 each BID PO Last administered on 11/16/16 09:19; Admin Dose 1 EACH; Start 11/13/16 at 21:00 Acetaminophen/ Hydrocodone Bitart ([place] (5/325)) 1 tab Q4H PRN PO severe pain Last administered on 11/14/16 08:32; Admin Dose 1 TAB; Start 11/13/16 at 20:30 Morphine Sulfate 2 mg 2 mg Q4H PRN IV SEVERE PAIN LEVEL 7-10 Last administered on 11/16/16 05:35; Admin Dose 2 MG; Start 11/14/16 at 14:15 Ertapenem/Sodium Chloride (Invanz/NS) 100 ml @ 200 mls/hr Q24H IVPB Last administered on 11/15/16 14:43; Admin Dose 200 MLS/HR; Start 11/14/16 at 14:30 JESUS RUIZ November 16, 2016 09:32
[2016-11-16] MEDS: COLLAGENASE 30 GM TUBE TOP SCH (10:34)
[2016-11-16] MEDS: TRIMETHOPRIM/SULFAMETHOX (DS) TAB PO SCH ×2 (10:52→21:47)
[2016-11-16 12:26] LABS: HEMATOCRIT 25.1 % (37.0-47.0); HEMOGLOBIN 8.5 g/dl (12.0-16.0)
--- NOTE | 2016-11-16 13:01 | PN ---
Date/Time of Note Date/Time of Note DATE: 11/16/16 TIME: 12:55 Assessment/Plan VTE Prophylaxis VTE Prophylaxis Intervention: SCD's Lines/Catheters IV Catheter Type (from Nrs): PICC Line Central line still needed: Yes Urinary Cath still in place: Yes Reason Cath still needed: urinary retention Assessment/Plan Assessment/Plan * Anemia hemoglobin 8.8 EGD 11/12/2016 Severe ulcerated esophagitis, rule out opportunistic infections; i.e., Inocencia, CMV, others. Biopsies obtained Colonoscopy 11/12/2016 [place] ulcerative colitis, biopsies obtained, rule out Clostridium difficile, CMB, inflammatory bowel disease. Moderate sized internal hemorrhoids * HIV disease. Plan * continue present management * awaiting biopsy result Subjective 24 Hr Interval Summary Free Text/Dictation * Course reviewed with RN * Patient seen and examined * No diarrhea or hematochezia * ANCA titer high Exam/Review of Systems Vital Signs Vitals Vital Signs Date Time Temp Pulse Resp B/P Pulse Ox O2 Delivery O2 Flow Rate FiO2 11/16/16 11:00 123 25 129/100 11/16/16 10:00 98 Room Air 11/16/16 08:00 98.0 11/15/16 16:51 21 11/13/16 05:38 2.0 Intake and Output 11/15/16 11/15/16 11/16/16 14:59 22:59 06:59 Intake Total 355 ml 630.0 ml 130 ml Output Total 270 ml 315 ml 356 ml Balance 85 ml 315.0 ml -226 ml Exam Constitutional: alert, frail Neck: non-tender, supple Respiratory: clear to auscultation, normal air movement Cardiovascular: nl pulses, regular rate and rhythm Gastrointestinal: nl liver, spleen, non-tender, soft Musculoskeletal: nl extremities to inspection Results Result Diagram: 11/16/16 1150 11/16/16 0445 Results 24 hrs Laboratory Tests Test 11/15/16 18:20 11/16/16 01:15 11/16/16 04:45 11/16/16 11:50 Hemoglobin 8.7 L 8.1 L 8.0 L 8.5 L Hematocrit 26.1 L 23.9 L 23.8 L 25.1 L Potassium Level 2.8 *L 3.2 L White Blood Count 5.0 # Red Blood Count 2.90 L Mean Corpuscular Volume 82.1 Mean Corpuscular Hemoglobin 27.6 L Mean Corpuscular Hemoglobin Concent 33.6 Red Cell Distribution Width 17.4 H Platelet Count 52 L Mean Platelet Volume 10.3 Neutrophils % Eosinophils % Neutrophils # Eosinophils # Sodium Level 142 Chloride Level 113 H Carbon Dioxide Level 25 Anion Gap 7 L Blood Urea Nitrogen 13 Creatinine 0.40 L Glucose Level 82 Calcium Level 6.9 L Medications Medications Current Medications Ondansetron HCl (Zofran Inj) 4 mg Q6H PRN IV NAUSEA AND/OR VOMITING; Start at 16:00 Acetaminophen (Tylenol Tab) 650 mg Q6H PRN PO PAIN LEVEL 1-3 OR FEVER; Start at 16:00 Acetaminophen/ Hydrocodone Bitart ([place] (5/325)) 1 tab Q6H PRN PO MODERATE PAIN LEVEL 4-6 Last administered on 11/14/16 20:22; Admin Dose 1 TAB; Start at 16:00 Docusate Sodium (Colace) 100 mg Q12H PRN PO CONSTIPATION; Start 11/11/16 at 16: 00 Magnesium Hydroxide (Milk Of Mag) 30 ml DAILY PRN PO CONSTIPATION; Start at 16:00 Sodium Biphosphate/ Sodium Phosphate (Fleet Enema) 133 ml DAILY PRN [place]STIPATION; Start 11/11/16 at 16:00 Lorazepam (Ativan) 0.5 mg Q6H PRN IV ANXIETY; Start 11/11/16 at 16:00 Hydralazine HCl (Apresoline) 10 mg Q6H PRN IV ELEVATED BLOOD PRESSURE; Start at 16:00 Nitroglycerin (Nitroglycerin (Sl Tab) 0.4 Mg) 1 tab Q5M PRN SL ANGINA Last administered on 11/11/16 23:25; Admin Dose 1 TAB; Start 11/11/16 at 16:00 Efavirenz (Sustiva) 600 mg DAILY PO Last administered on 11/16/16 09:19; Admin Dose 600 MG; Start 11/12/16 at 09:00 Emtricitabine/ Tenofovir (Truvada) 1 tab DAILY PO Last administered on 09:19; Admin Dose 1 TAB; Start 11/12/16 at 09:00 Sucralfate (Carafate) 1 gm QID PO Last administered on 11/16/16 09:19; Admin Dose 1 GM; Start 11/11/16 at 17:00 Valganciclovir 450 mg 450 mg Q12 PO Last administered on 11/16/16 09:19; Admin Dose 450 MG; Start 11/11/16 at 21:00 Pantoprazole/ Sodium Chloride (Protonix Iv/NS) 100 ml @ 10 mls/hr Q10H IV Last administered on 11/16/16 02:41; Admin Dose 10 MLS/HR; Start 11/11/16 at 21 :30 Collagenase (Santyl) 1 applic DAILY TOP Last administered on 11/16/16 10:34; Admin Dose 1 APPLIC; Start 11/12/16 at 13:00 Collagenase (Santyl) 1 applic PRN PRN TOP WOUND CARE; Start 11/12/16 at 12:00 Mesalamine (Delzicol Dr) 800 mg QID PO Last administered on 11/16/16 09:19; Admin Dose 800 MG; Start 11/12/16 at 21:00 Vancomycin HCl (Vancomycin Oral Syringe) 250 mg Q6 PO Last administered on 11/16 05:32; Admin Dose 250 MG; Start 11/12/16 at 19:30 Fluconazole (Diflucan) 100 mg DAILY PO Last administered on 11/16/16 09:19; Admin Dose 100 MG; Start 11/13/16 at 09:00 Metoclopramide HCl 10 mg 10 mg Q6 IV Last administered on 11/16/16 05:32; Admin Dose 10 MG; Start 11/13/16 at 00:00 Dextrose/Sodium Chloride (D5-NS) 1,000 ml @ 100 mls/hr Q10H IV Last administered on 11/14/16 04:28; Admin Dose 100 MLS/HR; Start 11/13/16 at 10:30 ; Status Future Hold Lactobacillus Acidophilus (Florajen3 Capsule) 1 each BID PO Last administered on 11/16/16 09:19; Admin Dose 1 EACH; Start 11/13/16 at 21:00 Acetaminophen/ Hydrocodone Bitart ([place] (5/325)) 1 tab Q4H PRN PO severe pain Last administered on 11/14/16 08:32; Admin Dose 1 TAB; Start 11/13/16 at 20:30 Morphine Sulfate 2 mg 2 mg Q4H PRN IV SEVERE PAIN LEVEL 7-10 Last administered on 11/16/16 05:35; Admin Dose 2 MG; Start 11/14/16 at 14:15 Ertapenem/Sodium Chloride (Invanz/NS) 100 ml @ 200 mls/hr Q24H IVPB Last administered on 11/15/16 14:43; Admin Dose 200 MLS/HR; Start 11/14/16 at 14:30 Trimethoprim/ Sulfamethoxazole (Bactrim (Ds)) 1 tab BID PO Last administered on 11/16/16 10:52; Admin Dose 1 TAB; Start 11/16/16 at 09:30 LM LAMB MD November 16, 2016 13:01
[2016-11-16] MEDS: ERTAPENEM SODIUM 1 GM in SOD CHLORIDE 0.9% 100 ML IVPB SCH (14:35)
--- NOTE | 2016-11-16 16:04 | CONS ---
Date/Time of Note Date/Time of Note DATE: 11/16/16 TIME: 16:03 Assessment/Plan Assessment/Plan Chief Complaint/Hosp Course ID PROGRESS NOTE TOTAL ABX DAY # 1. IV Rocephin. 2. Fluconazole. 3. Oral vancomycin. 4. Valganciclovir 5. HIV ARV MEDS: Truvada + Sustiva. 24H INTERVAL SUMMARY * 'Currently sleeping, has been awake most of the day per RN, watching TV * Non-verbal, nods yes and no - tachy w/HR 116, pallor noted, lip lesion, no fevers * 1. MICROBIOLOGY: Wound culture growing E. coli ESBL, Enterococcus species. Urine culture grew E. coli and Proteus mirabilis. PHYSICAL EXAMINATION: GENERAL: VSS,NAD, appears weak, frail, no fevers HEENT: Lower lip lesion NECK: Moves neck, appears supple, CHEST: Equal chest appears cachetic, without dyspnea on observation, diminished bi-basilar HEART: Pulse RRR -- tachy ABDOMEN: Soft, benign EXTREMITIES: Warm, moves left leg, bi-pedal edema SKIN: Warm, dry, tattoos, wounds see photos ID ASSESSMENT: 41 yo F admitted with: 1. Acute anemia secondary to gastrointestinal bleed with EGD revealed severe ulcerative esophagitis, rule out opportunistic infection. 2. Polymicrobial urinary tract infection. 3. Multiple chronic wounds. 4. Human immunodeficiency virus, on antiretrovirals. 5. History of Inocencia esophagitis. 6. Colitis as per CT of the abdomen. 7. Severe deconditioning. (-)MRSA NARES INVASIVES: * PIV ABX ALLERGIES: None to ABX CURRENT ABX: 1. IV Rocephin. 2. Fluconazole. 3. Oral vancomycin. 4. Valganciclovir 5. HIV ARV MEDS: Truvada + Sustiva. ID RECOMMENDATIONS Continue current ABX and supportive care...will continue to follow, providing coverage for ID team over the 3-day weekend. . Problems: Consultation Date/Type/Reason Admit Date/Time November 11, 2016 at 15:19 Initial Consult Date 11/11/16 Type of Consultation: ID Referring Provider: JESUS RUIZ Exam/Review of Systems Vital Signs Vitals Vital Signs Date Time Temp Pulse Resp B/P Pulse Ox O2 Delivery O2 Flow Rate FiO2 11/16/16 13:00 120 24 129/104 98 Room Air 11/16/16 12:00 98.6 11/15/16 16:51 21 11/13/16 05:38 2.0 Intake and Output 11/15/16 11/15/16 11/16/16 15:00 23:00 07:00 Intake Total 365 ml 630.0 ml 130 ml Output Total 270 ml 340 ml 356 ml Balance 95 ml 290.0 ml -226 ml Results Result Diagram: 11/16/16 1150 11/16/16 0445 Results 24 hrs Laboratory Tests Test 11/15/16 18:20 11/16/16 01:15 11/16/16 04:45 11/16/16 11:50 Hemoglobin 8.7 L 8.1 L 8.0 L 8.5 L Hematocrit 26.1 L 23.9 L 23.8 L 25.1 L Potassium Level 2.8 *L 3.2 L White Blood Count 5.0 # Red Blood Count 2.90 L Mean Corpuscular Volume 82.1 Mean Corpuscular Hemoglobin 27.6 L Mean Corpuscular Hemoglobin Concent 33.6 Red Cell Distribution Width 17.4 H Platelet Count 52 L Mean Platelet Volume 10.3 Neutrophils % Eosinophils % Neutrophils # Eosinophils # Sodium Level 142 Chloride Level 113 H Carbon Dioxide Level 25 Anion Gap 7 L Blood Urea Nitrogen 13 Creatinine 0.40 L Glucose Level 82 Calcium Level 6.9 L Medications Medications Current Medications Ondansetron HCl (Zofran Inj) 4 mg Q6H PRN IV NAUSEA AND/OR VOMITING; Start at 16:00 Acetaminophen (Tylenol Tab) 650 mg Q6H PRN PO PAIN LEVEL 1-3 OR FEVER; Start at 16:00 Acetaminophen/ Hydrocodone Bitart ([place] (5/325)) 1 tab Q6H PRN PO MODERATE PAIN LEVEL 4-6 Last administered on 11/14/16t 20:22; Admin Dose 1 TAB; Start at 16:00 Docusate Sodium (Colace) 100 mg Q12H PRN PO CONSTIPATION; Start 11/11/16 at 16: 00 Magnesium Hydroxide (Milk Of Mag) 30 ml DAILY PRN PO CONSTIPATION; Start at 16:00 Sodium Biphosphate/ Sodium Phosphate (Fleet Enema) 133 ml DAILY PRN [place] CONSTIPATION; Start 11/11/16 at 16:00 Lorazepam (Ativan) 0.5 mg Q6H PRN IV ANXIETY; Start 11/11/16 at 16:00 Hydralazine HCl (Apresoline) 10 mg Q6H PRN IV ELEVATED BLOOD PRESSURE; Start at 16:00 Nitroglycerin (Nitroglycerin (Sl Tab) 0.4 Mg) 1 tab Q5M PRN SL ANGINA Last administered on 11/11/16 23:25; Admin Dose 1 TAB; Start 11/11/16 at 16:00 Efavirenz (Sustiva) 600 mg DAILY PO Last administered on 11/16/16 09:19; Admin Dose 600 MG; Start 11/12/16 at 09:00 Emtricitabine/ Tenofovir (Truvada) 1 tab DAILY PO Last administered on 09:19; Admin Dose 1 TAB; Start 11/12/16 at 09:00 Sucralfate (Carafate) 1 gm QID PO Last administered on 11/16/16 13:05; Admin Dose 1 GM; Start 11/11/16 at 17:00 Valganciclovir 450 mg 450 mg Q12 PO Last administered on 11/16/16 09:19; Admin Dose 450 MG; Start 11/11/16 at 21:00 Pantoprazole/ Sodium Chloride (Protonix Iv/NS) 100 ml @ 10 mls/hr Q10H IV Last administered on 11/16/16 13:10; Admin Dose 10 MLS/HR; Start 11/11/16 at 21 :30 Collagenase (Santyl) 1 applic DAILY TOP Last administered on 11/16/16 10:34; Admin Dose 1 APPLIC; Start 11/12/16 at 13:00 Collagenase (Santyl) 1 applic PRN PRN TOP WOUND CARE; Start 11/12/16 at 12:00 Mesalamine (Delzicol Dr) 800 mg QID PO Last administered on 11/16/16 13:05; Admin Dose 800 MG; Start 11/12/16 at 21:00 Vancomycin HCl (Vancomycin Oral Syringe) 250 mg Q6 PO Last administered on 11/16 13:05; Admin Dose 250 MG; Start 11/12/16 at 19:30 Fluconazole (Diflucan) 100 mg DAILY PO Last administered on 11/16/16 09:19; Admin Dose 100 MG; Start 11/13/16 at 09:00 Metoclopramide HCl 10 mg 10 mg Q6 IV Last administered on 11/16/16 13:05; Admin Dose 10 MG; Start 11/13/16 at 00:00 Dextrose/Sodium Chloride (D5-NS) 1,000 ml @ 100 mls/hr Q10H IV Last administered on 11/14/16 04:28; Admin Dose 100 MLS/HR; Start 11/13/16 at 10:30 ; Status Future Hold Lactobacillus Acidophilus (Florajen3 Capsule) 1 each BID PO Last administered on 11/16/16 09:19; Admin Dose 1 EACH; Start 11/13/16 at 21:00 Acetaminophen/ Hydrocodone Bitart ([place] (5/325)) 1 tab Q4H PRN PO severe pain Last administered on 11/14/16 08:32; Admin Dose 1 TAB; Start 11/13/16 at 20:30 Morphine Sulfate 2 mg 2 mg Q4H PRN IV SEVERE PAIN LEVEL 7-10 Last administered on 11/16/16 05:35; Admin Dose 2 MG; Start 11/14/16 at 14:15 Ertapenem/Sodium Chloride (Invanz/NS) 100 ml @ 200 mls/hr Q24H IVPB Last administered on 11/16/16 14:35; Admin Dose 200 MLS/HR; Start 11/14/16 at 14:30 Trimethoprim/ Sulfamethoxazole (Bactrim (Ds)) 1 tab BID PO Last administered on 11/16/16 10:52; Admin Dose 1 TAB; Start 11/16/16 at 09:30 NILDA JOSE NP November 16, 2016 16:04
[2016-11-16 18:16] LABS: HEMATOCRIT 23.4 % (37.0-47.0); HEMOGLOBIN 7.8 g/dl (12.0-16.0)
[2016-11-17] VITALS (19 sets, daily range): BP systolic 121–138; BP diastolic 87–106; PULSE 92–117; RESP 15–32
[2016-11-17 02:32] LABS: HEMATOCRIT 21.9 % (37.0-47.0); HEMOGLOBIN 7.3 g/dl (12.0-16.0)
[2016-11-17 04:09] LABS: ADD SCAN DIFF NO
[2016-11-17 04:12] LABS: ABNORMAL IP MESSAGE 1; EOSINOPHILS % 0.2 % (0.0-7.0); HEMATOCRIT 21.9 % (37.0-47.0); HEMOGLOBIN 7.3 g/dl (12.0-16.0); LYMPHOCYTES # 0.5 10^3/ul (0.8-2.9); MEAN CORPUSCULAR HEMOGLOBIN 27.5 pg (29.0-33.0); MEAN CORPUSCULAR HGB CONC 33.3 g/dl (32.0-37.0); MEAN CORPUSCULAR VOLUME 82.6 fl (82.0-101.0); MEAN PLATELET VOLUME 9.7 fl (7.4-10.4); MONOCYTE # 0.3 10^3/ul (0.3-0.9); MONOCYTES % 7.1 % (0.0-11.0); NEUTROPHIL # 3.8 10^3/ul (1.6-7.5); PLATELET COUNT 84 10^3/UL (140-415); RED BLOOD COUNT 2.65 10^6/ul (4.20-5.40); RED CELL DISTRIBUTION WIDTH 17.9 % (11.5-14.5); WHITE BLOOD COUNT 4.8 10^3/ul (4.8-10.8)
[2016-11-17 04:40] LABS: CREATININE 0.39 mg/dl (0.44-1.00); POTASSIUM 3.1 mmol/L (3.5-5.1)
[2016-11-17] MEDS: VANCOMYCIN HCL 250 MG/5ML POSYG PO SCH ×3 (06:05→19:58)
[2016-11-17] MEDS: METOCLOPRAMIDE 10 MG INJ IV SCH ×4 (06:05→23:25)
[2016-11-17] MEDS ORDERED: POTASSIUM CHLORIDE (SR) 20 MEQ TAB PO SCH ×2 (08:00→13:00)
[2016-11-17] MEDS: DEXTROSE 5%-0.45% NACL 1,000 ML IV SCH ×3 (08:36→23:26)
[2016-11-17] MEDS ORDERED: POTASSIUM CHLORIDE 20 MEQ POWDER FOR ORAL SOLN PO SCH (09:00)
--- NOTE | 2016-11-17 09:19 | PN ---
Date/Time of Note Date/Time of Note DATE: 11/17/16 TIME: 09:18 Assessment/Plan VTE Prophylaxis VTE Prophylaxis Intervention: SCD's VTE Contraindication Reason: bleeding Lines/Catheters IV Catheter Type (from Nrsg): PICC Line Central line still needed: Yes Urinary Cath still in place: Yes Reason Cath still needed: other (indicate) (Debility) Assessment/Plan Assessment/Plan 41-year-old female coming in with generalized weakness and rectal bleeding with severe anemia with a prior history of human immunodeficiency virus. 1. Severe lower GI bleed status post Upper and lower endoscopy Nov 13 2016 with the following findings * Severe ulcerated esophagitis rule out opportunistic infections. Patient has history of confirmed Inocencia esophagitis * [place] ulcerative colitis rule out C. difficile, CMV, inflammatory bowel disease * Moderate size internal hemorrhoids 2. Severe anemia secondary to #1- s/p pRBC transfusion and platelet transfusion 3. HIV/AIDS: CD4 count less than 200, viral load 71,000 4. Noncompliance of therapy- pt states she has not been taking HAART meds for the last few mths. 5. Debility/lethargy secondary to the above 6, chronic hepatitis C cirrhosis 7. Multiple chronic wounds growing E. coli ESBL and enterococcus species 8. E. coli and Proteus urinary tract infection 9. History of substance abuse in the past 10. Previous psychiatric diagnoses of depressive disorder /opiate dependence / posttraumatic stress disorder PLAN: * Appreciate infectious disease input and management. Patient is maintained on the following: PO vancomycin / valganciclovir / Bactrim DS / Truvada / Sustiva / Ertapenem / fluconazole * Patient will likely require repeat blood transfusion for optimization / continue to monitor hemoglobin and hematocrit serially * Continue mesalamine and Protonix drip per GI. Hemoglobin has been fairly stable over the last 10 hours, if it continues to remain stable, considering changing to twice daily. * Biopsy results from this visit still pending * Agree with MedSurg transfer * We will start patient on recommended Remeron per psychiatry * Patient started on regular diet with boost supplementation, no problems with that so far Critical care time spent with pt care today >35mins. Subjective 24 Hr Interval Summary Free Text/Dictation Patient still looks and feels very lethargic. She does not however complain of anything specific. Nursing staff reports no overnight events. Patient planned for MedSurg transfer later today. Constitutional: improved Exam/Review of Systems Vital Signs Vitals Vital Signs Date Time Temp Pulse Resp B/P Pulse Ox O2 Delivery O2 Flow Rate FiO2 11/17/16 07:00 102 21 135/96 100 Room Air 11/17/16 04:00 98.2 11/16/16 18:52 21 Intake and Output 11/16/16 11/16/16 11/17/16 15:00 23:00 07:00 Intake Total 950 ml 810 ml 290 ml Output Total 285 ml 345 ml 325 ml Balance 665 ml 465 ml -35 ml Exam GENERAL: The patient is lying in bed, frail-appearing female answers questions , less lethargic HEENT: There is some pallor noted on the conjunctiva, otherwise pupils equal, round, react to light. Extraocular muscles intact. NECK: Supple, no thyromegaly. LUNGS: Decreased breath sounds bilaterally. CARDIOVASCULAR: S1 S2 heard, heart rate. No rubs or gallops. ABDOMEN: Soft, nontender, nondistended. Normal bowel sounds. No rebound or guarding. MUSCULOSKELETAL: No lower extremity edema bilaterally. NEUROLOGIC: no focal deficits Results Result Diagram: 11/17/160 11/17/16399 Results 24 hrs Laboratory Tests Test 11/16/16 11:50 11/16/16 17:55 11/17/16 02:20 11/17/16 04:00 Hemoglobin 8.5 L 7.8 L 7.3 L 7.3 L Hematocrit 25.1 L 23.4 L 21.9 L 21.9 L White Blood Count 4.8 Red Blood Count 2.65 L Mean Corpuscular Volume 82.6 Mean Corpuscular Hemoglobin 27.5 L Mean Corpuscular Hemoglobin Concent 33.3 Red Cell Distribution Width 17.9 H Platelet Count 84 #L Mean Platelet Volume 9.7 Neutrophils % 80.0 H Lymphocytes % 10.0 L Monocytes % 7.1 Eosinophils % 0.2 Basophils % 0.0 Nucleated Red Blood Cells % 0.0 Neutrophils # 3.8 Lymphocytes # 0.5 L Monocytes # 0.3 Eosinophils # 0.0 Basophils # 0.0 Nucleated Red Blood Cells # 0.0 Sodium Level 138 Potassium Level 3.1 L Chloride Level 111 H Carbon Dioxide Level 24 Anion Gap 6 L Blood Urea Nitrogen 16 Creatinine 0.39 L Glucose Level 65 #L Calcium Level 7.0 L Test 11/17/16 06:53 11/17/16 07:12 11/17/16 07:47 Bedside Glucose 63 L 70 81 Medications Medications Current Medications Ondansetron HCl (Zofran Inj) 4 mg Q6H PRN IV NAUSEA AND/OR VOMITING; Start at 16:00 Acetaminophen (Tylenol Tab) 650 mg Q6H PRN PO PAIN LEVEL 1-3 OR FEVER; Start at 16:00 Acetaminophen/ Hydrocodone Bitart ([place] (5/325)) 1 tab Q6H PRN PO MODERATE PAIN LEVEL 4-6 Last administered on 11/14/16 20:22; Admin Dose 1 TAB; Start at 16:00 Docusate Sodium (Colace) 100 mg Q12H PRN PO CONSTIPATION; Start 11/11/16 at 16: 00 Magnesium Hydroxide (Milk Of Mag) 30 ml DAILY PRN PO CONSTIPATION; Start at 16:00 Sodium Biphosphate/ Sodium Phosphate (Fleet Enema) 133 ml DAILY PRN [place] CONSTIPATION; Start 11/11/16 at 16:00 Lorazepam (Ativan) 0.5 mg Q6H PRN IV ANXIETY; Start 11/11/16 at 16:00 Hydralazine HCl (Apresoline) 10 mg Q6H PRN IV ELEVATED BLOOD PRESSURE; Start at 16:00 Nitroglycerin (Nitroglycerin (Sl Tab) 0.4 Mg) 1 tab Q5M PRN SL ANGINA Last administered on 11/11/16 23:25; Admin Dose 1 TAB; Start 11/11/16 at 16:00 Efavirenz (Sustiva) 600 mg DAILY PO Last administered on 11/16/16 09:19; Admin Dose 600 MG; Start 11/12/16 at 09:00 Emtricitabine/ Tenofovir (Truvada) 1 tab DAILY PO Last administered on 09:19; Admin Dose 1 TAB; Start 11/12/16 at 09:00 Sucralfate (Carafate) 1 gm QID PO Last administered on 11/16/16 21:48; Admin Dose 1 GM; Start 11/11/16 at 17:00 Valganciclovir 450 mg 450 mg Q12 PO Last administered on 11/16/16 21:48; Admin Dose 450 MG; Start 11/11/16 at 21:00 Pantoprazole/ Sodium Chloride (Protonix Iv/NS) 100 ml @ 10 mls/hr Q10H IV Last administered on 11/16/16 23:41; Admin Dose 10 MLS/HR; Start 11/11/16 at 21 :30 Collagenase (Santyl) 1 applic DAILY TOP Last administered on 11/16/16 10:34; Admin Dose 1 APPLIC; Start 11/12/16 at 13:00 Collagenase (Santyl) 1 applic PRN PRN TOP WOUND CARE; Start 11/12/16 at 12:00 Mesalamine (Delzicol Dr) 800 mg QID PO Last administered on 11/16/16 21:47; Admin Dose 800 MG; Start 11/12/16 at 21:00 Vancomycin HCl (Vancomycin Oral Syringe) 250 mg Q6 PO Last administered on 11/17 06:05; Admin Dose 250 MG; Start 11/12/16 at 19:30 Fluconazole (Diflucan) 100 mg DAILY PO Last administered on 11/16/16 09:19; Admin Dose 100 MG; Start 11/13/16 at 09:00 Metoclopramide HCl (Reglan) 10 mg Q6 IV Last administered on 11/17/16 06:05; Admin Dose 10 MG; Start 11/13/16 at 00:00 Lactobacillus Acidophilus (Florajen3 Capsule) 1 each BID PO Last administered on 11/16/16 21:47; Admin Dose 1 EACH; Start 11/13/16 at 21:00 Acetaminophen/ Hydrocodone Bitart ([place] (5/325)) 1 tab Q4H PRN PO severe pain Last administered on 11/14/16 08:32; Admin Dose 1 TAB; Start 11/13/16 at 20:30 Morphine Sulfate 2 mg 2 mg Q4H PRN IV SEVERE PAIN LEVEL 7-10 Last administered on 11/16/16 19:22; Admin Dose 2 MG; Start 11/14/16 at 14:15 Ertapenem/Sodium Chloride (Invanz/NS) 100 ml @ 200 mls/hr Q24H IVPB Last administered on 11/16/16 14:35; Admin Dose 200 MLS/HR; Start 11/14/16 at 14:30 Trimethoprim/ Sulfamethoxazole 1 tab 1 tab BID PO Last administered on 21:47; Admin Dose 1 TAB; Start 11/16/16 at 09:30 Dextrose/Sodium Chloride (D5-1/2ns) 1,000 ml @ 100 mls/hr Q10H IV Last administered on 11/17/16 08:36; Admin Dose 100 MLS/HR; Start 11/17/16 at 08:00 Potassium Chloride (Potassium Chloride Pwd/Soln) 40 meq Q4 PO ; Start 11/17/16 at 09:00; Stop 11/17/16 at 13:01 FERNANDO HOOD November 17, 2016 09:19
[2016-11-17] MEDS: VALGANCICLOVIR 450 MG TAB PO SCH ×2 (09:22→22:18)
[2016-11-17] MEDS: TRIMETHOPRIM/SULFAMETHOX (DS) TAB PO SCH ×2 (09:22→20:55)
[2016-11-17] MEDS: SUCRALFATE 1 GM TAB PO SCH ×4 (09:22→20:55)
[2016-11-17] MEDS: FLUCONAZOLE 100 MG TAB PO SCH (09:22)
[2016-11-17] MEDS: EFAVIRENZ 600 MG TAB PO SCH (09:22)
[2016-11-17] MEDS: EMTRICITABINE/TENOFOVIR TAB PO SCH (09:22)
[2016-11-17] MEDS: L ACIDOPHIL/B LACTIS/B LONGUM CAPSULE PO SCH ×2 (09:43→22:18)
[2016-11-17] MEDS: MESALAMINE (EC) 400 MG CAP PO SCH ×4 (09:43→23:25)
[2016-11-17] MEDS: PANTOPRAZOLE IV 80 MG in SOD CHLORIDE 0.9% 100 ML IV SCH ×3 (10:58→21:34)
[2016-11-17] MEDS: morphine 4 MG/ML VIAL IV PRN (11:28)
[2016-11-17] MEDS: DOCUSATE SODIUM 100 MG CAP PO SCH ×2 (11:30→20:56)
[2016-11-17] MEDS: COLLAGENASE 30 GM TUBE TOP SCH (11:30)
[2016-11-17 12:15] LABS: HEMATOCRIT 28.1 % (37.0-47.0); HEMOGLOBIN 9.6 g/dl (12.0-16.0)
--- NOTE | 2016-11-17 12:40 | PN ---
Date/Time of Note Date/Time of Note DATE: 11/17/16 TIME: 12:38 Assessment/Plan VTE Prophylaxis VTE Prophylaxis Intervention: SCD's Lines/Catheters IV Catheter Type (from Nrs): PICC Line Central line still needed: Yes Urinary Cath still in place: Yes Reason Cath still needed: urinary retention Assessment/Plan Assessment/Plan Anemia hemoglobin 8.8 EGD 11/12/2016 Severe ulcerated esophagitis, rule out opportunistic infections; i.e., Inocencia, CMV, others. Biopsies obtained Colonoscopy 11/12/2016 [place] ulcerative colitis, biopsies obtained, rule out Clostridium difficile, CMB, inflammatory bowel disease. Moderate sized internal hemorrhoids * HIV disease. Plan * continue present management * awaiting biopsy result Subjective 24 Hr Interval Summary Free Text/Dictation * Course reviewed with RN * Patient seen and examined * No diarrhea/abdominal pain Exam/Review of Systems Vital Signs Vitals Vital Signs Date Time Temp Pulse Resp B/P Pulse Ox O2 Delivery O2 Flow Rate FiO2 11/17/16 08:00 98 11/17/16 07:00 21 135/96 100 Room Air 11/17/16 04:00 98.2 11/16/16 18:52 21 Intake and Output 11/16/16 11/16/16 11/17/16 14:59 22:59 06:59 Intake Total 950 ml 810 ml 290 ml Output Total 305 ml 330 ml 375 ml Balance 645 ml 480 ml -85 ml Exam Constitutional: alert, frail Neck: non-tender, supple Respiratory: clear to auscultation, normal air movement Cardiovascular: nl pulses, regular rate and rhythm Gastrointestinal: non-tender, soft Musculoskeletal: nl extremities to inspection Extremities: normal pulses Neurological: nl strength Skin: nl turgor, No rash or lesions Results Result Diagram: 11/17/16 1205 11/17/16 0400 Results 24 hrs Laboratory Tests Test 11/16/16 17:55 11/17/16 02:20 11/17/16 04:00 11/17/16 06:53 Hemoglobin 7.8 L 7.3 L 7.3 L Hematocrit 23.4 L 21.9 L 21.9 L White Blood Count 4.8 Red Blood Count 2.65 L Mean Corpuscular Volume 82.6 Mean Corpuscular Hemoglobin 27.5 L Mean Corpuscular Hemoglobin Concent 33.3 Red Cell Distribution Width 17.9 H Platelet Count 84 #L Mean Platelet Volume 9.7 Neutrophils % 80.0 H Lymphocytes % 10.0 L Monocytes % 7.1 Eosinophils % 0.2 Basophils % 0.0 Nucleated Red Blood Cells % 0.0 Neutrophils # 3.8 Lymphocytes # 0.5 L Monocytes # 0.3 Eosinophils # 0.0 Basophils # 0.0 Nucleated Red Blood Cells # 0.0 Sodium Level 138 Potassium Level 3.1 L Chloride Level 111 H Carbon Dioxide Level 24 Anion Gap 6 L Blood Urea Nitrogen 16 Creatinine 0.39 L Glucose Level 65 #L Calcium Level 7.0 L Bedside Glucose 63 L Test 11/17/16 07:12 11/17/16 07:47 11/17/16 12:05 Bedside Glucose 70 81 Hemoglobin 9.6 #L Hematocrit 28.1 #L Medications Medications Current Medications Ondansetron HCl (Zofran Inj) 4 mg Q6H PRN IV NAUSEA AND/OR VOMITING; Start at 16:00 Acetaminophen (Tylenol Tab) 650 mg Q6H PRN PO PAIN LEVEL 1-3 OR FEVER; Start at 16:00 Acetaminophen/ Hydrocodone Bitart ([place] (5/325)) 1 tab Q6H PRN PO MODERATE PAIN LEVEL 4-6 Last administered on 11/14/16 20:22; Admin Dose 1 TAB; Start at 16:00 Magnesium Hydroxide (Milk Of Mag) 30 ml DAILY PRN PO CONSTIPATION; Start at 16:00 Sodium Biphosphate/ Sodium Phosphate (Fleet Enema) 133 ml DAILY PRN [place] CONSTIPATION; Start 11/11/16 at 16:00 Lorazepam (Ativan) 0.5 mg Q6H PRN IV ANXIETY; Start 11/11/16 at 16:00 Hydralazine HCl (Apresoline) 10 mg Q6H PRN IV ELEVATED BLOOD PRESSURE; Start at 16:00 Nitroglycerin (Nitroglycerin (Sl Tab) 0.4 Mg) 1 tab Q5M PRN SL ANGINA Last administered on 11/11/16 23:25; Admin Dose 1 TAB; Start 11/11/16 at 16:00 Efavirenz (Sustiva) 600 mg DAILY PO Last administered on 11/17/16 09:22; Admin Dose 600 MG; Start 11/12/16 at 09:00 Emtricitabine/ Tenofovir (Truvada) 1 tab DAILY PO Last administered on 09:22; Admin Dose 1 TAB; Start 11/12/16 at 09:00 Sucralfate (Carafate) 1 gm QID PO Last administered on 11/17/16 09:22; Admin Dose 1 GM; Start 11/11/16 at 17:00 Valganciclovir 450 mg 450 mg Q12 PO Last administered on 11/17/16 09:22; Admin Dose 450 MG; Start 11/11/16 at 21:00 Pantoprazole/ Sodium Chloride (Protonix Iv/NS) 100 ml @ 10 mls/hr Q10H IV Last administered on 11/17/16 10:58; Admin Dose 10 MLS/HR; Start 11/11/16 at 21 :30 Collagenase (Santyl) 1 applic DAILY TOP Last administered on 11/17/16 11:30; Admin Dose 1 APPLIC; Start 11/12/16 at 13:00 Collagenase (Santyl) 1 applic PRN PRN TOP WOUND CARE; Start 11/12/16 at 12:00 Mesalamine (Delzicol Dr) 800 mg QID PO Last administered on 11/17/16 09:43; Admin Dose 800 MG; Start 11/12/16 at 21:00 Vancomycin HCl (Vancomycin Oral Syringe) 250 mg Q6 PO Last administered on 11/17 06:05; Admin Dose 250 MG; Start 11/12/16 at 19:30 Fluconazole (Diflucan) 100 mg DAILY PO Last administered on 11/17/16 09:22; Admin Dose 100 MG; Start 11/13/16 at 09:00 Metoclopramide HCl (Reglan) 10 mg Q6 IV Last administered on 11/17/16 06:05; Admin Dose 10 MG; Start 11/13/16 at 00:00 Lactobacillus Acidophilus (Florajen3 Capsule) 1 each BID PO Last administered on 11/17/16 09:43; Admin Dose 1 EACH; Start 11/13/16 at 21:00 Acetaminophen/ Hydrocodone Bitart ([place] (5/325)) 1 tab Q4H PRN PO severe pain Last administered on 11/14/16 08:32; Admin Dose 1 TAB; Start 11/13/16 at 20:30 Morphine Sulfate 2 mg 2 mg Q4H PRN IV SEVERE PAIN LEVEL 7-10 Last administered on 11/17/16 11:28; Admin Dose 2 MG; Start 11/14/16 at 14:15 Ertapenem/Sodium Chloride (Invanz/NS) 100 ml @ 200 mls/hr Q24H IVPB Last administered on 11/16/16 14:35; Admin Dose 200 MLS/HR; Start 11/14/16 at 14:30 Trimethoprim/ Sulfamethoxazole 1 tab 1 tab BID PO Last administered on 09:22; Admin Dose 1 TAB; Start 11/16/16 at 09:30 Dextrose/Sodium Chloride (D5-1/2ns) 1,000 ml @ 100 mls/hr Q10H IV Last administered on 11/17/16 08:36; Admin Dose 100 MLS/HR; Start 11/17/16 at 08:00 Docusate Sodium (Colace) 100 mg Q12 PO Last administered on 11/17/16 11:30; Admin Dose 100 MG; Start 11/17/16 at 11:00 Mirtazapine (Remeron) 7.5 mg HS PO ; Start 11/17/16 at 21:00 Potassium Chloride (Klor-Con 20) 40 meq ONCE PO ; Start 11/17/16 at 13:00; Stop 11/17/16 at 14:00 LM LAMB MD November 17, 2016 12:40
[2016-11-17] MEDS ORDERED: POTASSIUM CHLORIDE 250 ML IVPB ONE (13:30)
--- NOTE | 2016-11-17 16:33 | CONS ---
Date/Time of Note Date/Time of Note DATE: 11/17/16 TIME: 16:32 Assessment/Plan Assessment/Plan Chief Complaint/Hosp Course ID PROGRESS NOTE TOTAL ABX DAY # 1. IV Rocephin. 2. Fluconazole. 3. Oral vancomycin. 4. Valganciclovir 5. HIV ARV MEDS: Truvada + Sustiva. 24H INTERVAL SUMMARY * Clincally stabilized and in transit TNS to [address] 2255 * No fevers, profound debility,weakness persisting, VSS * 1. MICROBIOLOGY: Wound culture growing E. coli ESBL, Enterococcus species. Urine culture grew E. coli and Proteus mirabilis. PHYSICAL EXAMINATION: GENERAL: VSS,NAD, appears weak, frail, no fevers HEENT: Lower lip lesion NECK: Moves neck, appears supple, CHEST: Equal chest appears cachetic, without dyspnea on observation, diminished bi-basilar HEART: Pulse RRR -- tachy ABDOMEN: Soft, benign EXTREMITIES: Warm, moves left leg, bi-pedal edema SKIN: Warm, dry, tattoos, wounds see photos ID ASSESSMENT: 41 yo F admitted with: 1. Acute anemia secondary to gastrointestinal bleed with EGD revealed severe ulcerative esophagitis, rule out opportunistic infection. 2. Polymicrobial urinary tract infection. 3. Multiple chronic wounds. 4. Human immunodeficiency virus, on antiretrovirals. 5. History of Inocencia esophagitis. 6. Colitis as per CT of the abdomen. 7. Severe deconditioning. (-)MRSA NARES INVASIVES: * PIV ABX ALLERGIES: None to ABX CURRENT ABX: 1. IV Rocephin. 2. Fluconazole. 3. Oral vancomycin. 4. Valganciclovir 5. HIV ARV MEDS: Truvada + Sustiva. ID RECOMMENDATIONS Continue current ABX and supportive care...ID team to f/u tomorrow . Problems: Consultation Date/Type/Reason Admit Date/Time November 11, 2016 at 15:19 Initial Consult Date 11/11/16 Type of Consultation: ID Referring Provider: JESUS RUIZ Exam/Review of Systems Vital Signs Vitals Vital Signs Date Time Temp Pulse Resp B/P Pulse Ox O2 Delivery O2 Flow Rate FiO2 11/17/16 16:27 98.0 112 16 132/92 98 11/17/16 14:00 Room Air 11/16/16 18:52 21 Intake and Output 11/16/16 11/16/16 11/17/16 15:00 23:00 07:00 Intake Total 950 ml 810 ml 290 ml Output Total 285 ml 345 ml 345 ml Balance 665 ml 465 ml -55 ml Results Result Diagram: 11/17/16 1205 11/17/16 0400 Results 24 hrs Laboratory Tests Test 11/16/16 17:55 11/17/16 02:20 11/17/16 04:00 11/17/16 06:53 Hemoglobin 7.8 L 7.3 L 7.3 L Hematocrit 23.4 L 21.9 L 21.9 L White Blood Count 4.8 Red Blood Count 2.65 L Mean Corpuscular Volume 82.6 Mean Corpuscular Hemoglobin 27.5 L Mean Corpuscular Hemoglobin Concent 33.3 Red Cell Distribution Width 17.9 H Platelet Count 84 #L Mean Platelet Volume 9.7 Neutrophils % 80.0 H Lymphocytes % 10.0 L Monocytes % 7.1 Eosinophils % 0.2 Basophils % 0.0 Nucleated Red Blood Cells % 0.0 Neutrophils # 3.8 Lymphocytes # 0.5 L Monocytes # 0.3 Eosinophils # 0.0 Basophils # 0.0 Nucleated Red Blood Cells # 0.0 Sodium Level 138 Potassium Level 3.1 L Chloride Level 111 H Carbon Dioxide Level 24 Anion Gap 6 L Blood Urea Nitrogen 16 Creatinine 0.39 L Glucose Level 65 #L Calcium Level 7.0 L Bedside Glucose 63 L Test 11/17/16 07:12 11/17/16 07:47 11/17/16 12:05 11/17/16 12:57 Bedside Glucose 70 81 Hemoglobin 9.6 #L Hematocrit 28.1 #L Lab Scanned Report REFERENCE LAB Medications Medications Current Medications Ondansetron HCl (Zofran Inj) 4 mg Q6H PRN IV NAUSEA AND/OR VOMITING; Start at 16:00 Acetaminophen (Tylenol Tab) 650 mg Q6H PRN PO PAIN LEVEL 1-3 OR FEVER; Start at 16:00 Acetaminophen/ Hydrocodone Bitart ([place] (5/325)) 1 tab Q6H PRN PO MODERATE PAIN LEVEL 4-6 Last administered on 11/14/16t 20:22; Admin Dose 1 TAB; Start at 16:00 Magnesium Hydroxide (Milk Of Mag) 30 ml DAILY PRN PO CONSTIPATION; Start at 16:00 Sodium Biphosphate/ Sodium Phosphate (Fleet Enema) 133 ml DAILY PRN [place] CONSTIPATION; Start 11/11/16 at 16:00 Lorazepam (Ativan) 0.5 mg Q6H PRN IV ANXIETY; Start 11/11/16 at 16:00 Hydralazine HCl (Apresoline) 10 mg Q6H PRN IV ELEVATED BLOOD PRESSURE; Start at 16:00 Nitroglycerin (Nitroglycerin (Sl Tab) 0.4 Mg) 1 tab Q5M PRN SL ANGINA Last administered on 11/11/16 23:25; Admin Dose 1 TAB; Start 11/11/16 at 16:00 Efavirenz (Sustiva) 600 mg DAILY PO Last administered on 11/17/16 09:22; Admin Dose 600 MG; Start 11/12/16 at 09:00 Emtricitabine/ Tenofovir (Truvada) 1 tab DAILY PO Last administered on 09:22; Admin Dose 1 TAB; Start 11/12/16 at 09:00 Sucralfate (Carafate) 1 gm QID PO Last administered on 11/17/16 13:05; Admin Dose 1 GM; Start 11/11/16 at 17:00 Valganciclovir 450 mg 450 mg Q12 PO Last administered on 11/17/16 09:22; Admin Dose 450 MG; Start 11/11/16 at 21:00 Pantoprazole/ Sodium Chloride (Protonix Iv/NS) 100 ml @ 10 mls/hr Q10H IV Last administered on 11/17/16 10:58; Admin Dose 10 MLS/HR; Start 11/11/16 at 21 :30 Collagenase (Santyl) 1 applic DAILY TOP Last administered on 11/17/16 11:30; Admin Dose 1 APPLIC; Start 11/12/16 at 13:00 Collagenase (Santyl) 1 applic PRN PRN TOP WOUND CARE; Start 11/12/16 at 12:00 Mesalamine (Delzicol Dr) 800 mg QID PO Last administered on 11/17/16 12:46; Admin Dose 800 MG; Start 11/12/16 at 21:00 Vancomycin HCl (Vancomycin Oral Syringe) 250 mg Q6 PO Last administered on 11/17 12:47; Admin Dose 250 MG; Start 11/12/16 at 19:30 Fluconazole (Diflucan) 100 mg DAILY PO Last administered on 11/17/16 09:22; Admin Dose 100 MG; Start 11/13/16 at 09:00 Metoclopramide HCl (Reglan) 10 mg Q6 IV Last administered on 11/17/16 12:45; Admin Dose 10 MG; Start 11/13/16 at 00:00 Lactobacillus Acidophilus (Florajen3 Capsule) 1 each BID PO Last administered on 11/17/16 09:43; Admin Dose 1 EACH; Start 11/13/16 at 21:00 Acetaminophen/ Hydrocodone Bitart ([place] (5/325)) 1 tab Q4H PRN PO severe pain Last administered on 11/14/16 08:32; Admin Dose 1 TAB; Start 11/13/16 at 20:30 Morphine Sulfate 2 mg 2 mg Q4H PRN IV SEVERE PAIN LEVEL 7-10 Last administered on 11/17/16 11:28; Admin Dose 2 MG; Start 11/14/16 at 14:15 Ertapenem/Sodium Chloride (Invanz/NS) 100 ml @ 200 mls/hr Q24H IVPB Last administered on 11/16/16 14:35; Admin Dose 200 MLS/HR; Start 11/14/16 at 14:30 Trimethoprim/ Sulfamethoxazole 1 tab 1 tab BID PO Last administered on 09:22; Admin Dose 1 TAB; Start 11/16/16 at 09:30 Dextrose/Sodium Chloride (D5-1/2ns) 1,000 ml @ 100 mls/hr Q10H IV Last administered on 11/17/16 08:36; Admin Dose 100 MLS/HR; Start 11/17/16 at 08:00 Docusate Sodium (Colace) 100 mg Q12 PO Last administered on 11/17/16 11:30; Admin Dose 100 MG; Start 11/17/16 at 11:00 Mirtazapine 7.5 mg 7.5 mg HS PO ; Start 11/17/16 at 21:00 Potassium Chloride (KCl 40 MEQ/250 ML NS) 250 ml @ 62.5 mls/hr ONCE ONCE IVPB Last administered on 5/29/17at 14:54; Admin Dose 62.5 MLS/HR; Start 11/17/16 at 13:30; Stop 11/17/16 at 17:29 NILDA JOSE NP November 17, 2016 16:33
[2016-11-17] MEDS: ERTAPENEM SODIUM 1 GM in SOD CHLORIDE 0.9% 100 ML IVPB SCH (20:54)
[2016-11-17] MEDS: MIRTAZAPINE 15 MG TAB PO SCH (22:19)
[2016-11-18] MEDS: VANCOMYCIN HCL 250 MG/5ML POSYG PO SCH ×4 (00:58→18:00)
[2016-11-18] MEDS: METOCLOPRAMIDE 10 MG INJ IV SCH ×3 (05:23→18:00)
[2016-11-18 07:42] VITALS: BP 142/94; RESP 18
[2016-11-18] MEDS: EFAVIRENZ 600 MG TAB PO SCH (09:14)
[2016-11-18] MEDS: DOCUSATE SODIUM 100 MG CAP PO SCH ×2 (09:14→21:00)
[2016-11-18] MEDS: FLUCONAZOLE 100 MG TAB PO SCH (09:14)
[2016-11-18] MEDS: SUCRALFATE 1 GM TAB PO SCH ×4 (09:14→21:24)
[2016-11-18] MEDS: EMTRICITABINE/TENOFOVIR TAB PO SCH (09:14)
[2016-11-18] MEDS: L ACIDOPHIL/B LACTIS/B LONGUM CAPSULE PO SCH ×2 (09:14→21:25)
[2016-11-18] MEDS: VALGANCICLOVIR 450 MG TAB PO SCH ×2 (09:14→23:03)
[2016-11-18] MEDS: PANTOPRAZOLE IV 80 MG in SOD CHLORIDE 0.9% 100 ML IV SCH (09:14)
[2016-11-18] MEDS: TRIMETHOPRIM/SULFAMETHOX (DS) TAB PO SCH (09:14)
[2016-11-18] MEDS: MESALAMINE (EC) 400 MG CAP PO SCH ×4 (09:15→21:25)
[2016-11-18] MEDS: COLLAGENASE 30 GM TUBE TOP SCH (09:19)
[2016-11-18] MEDS: DEXTROSE 5%-0.45% NACL 1,000 ML IV SCH (14:00)
[2016-11-18] MEDS: ERTAPENEM SODIUM 1 GM in SOD CHLORIDE 0.9% 100 ML IVPB SCH (14:30)
--- NOTE | 2016-11-18 15:59 | PN ---
DATE: 11/18/2016 TIME OF EVALUATION: 1500. SUBJECTIVE DATA: Denies any complaints. OBJECTIVE DATA: VITAL SIGNS: Temperature 97.9, pulse rate 111, respiratory rate 18, blood pressure 142/94, oxygen saturation 98% on room air. GENERAL: This is a 41-year-old female who appears malnourished, lying in bed in no apparent distress. HEENT: Head normocephalic and atraumatic. Eyes: Anicteric sclerae. Conjunctivae clear. ENT: Nasal septum is midline. Oral mucosa is dry. NECK: Supple. No JVD noticed. RESPIRATORY: Bilaterally clear to auscultation. No adventitious breath sounds heard. No use of accessory muscles of respiration. CARDIAC: Regular rate and rhythm. No murmurs heard. ABDOMEN: Soft, nontender and nondistended. Bowel sounds positive in all 4 quadrants. GENITOURINARY: Deferred. EXTREMITIES: No cyanosis, no clubbing. Bilateral lower extremity edema. Peripheral pulses palpable. NEUROLOGIC: The patient is awake, alert and oriented. Cranial nerves are grossly intact. LABORATORY AND DIAGNOSTIC DATA: None for today. ASSESSMENT AND PLAN: 1. Lower gastrointestinal bleeding. Status post upper and lower endoscopy on 11/13/2016 that showed severe ulcerative esophagitis and universal ulcerative colitis. Continue management as per Gastroenterology. Continue Mesalamine and Protonix drip. 2. Severe anemia secondary to #1, status post PRBC and platelet transfusion. Continue to monitor H&H closely. Transfuse as needed. 3. Human immunodeficiency virus/acquired immunodeficiency syndrome. Latest CD4 count 157. Continue HAART. 4. Deconditioning. Physical therapy. 5. Multiple chronic wounds that are infected. Continue antimicrobials as per Infectious Disease. 6. History of polysubstance abuse. 7. History of depression and post-traumatic stress disorder. Continue mood stabilizers. 8. Urinary tract infection with E. coli and Proteus mirabilis. Continue antibiotics as per Infectious Disease. 9. Severe protein calorie malnutrition. Continue protein supplements. 10. Fluid, electrolytes and nutrition. Regular diet. 11. Deep vein thrombosis prophylaxis. Bilateral sequential compression devices. 12. Gastrointestinal prophylaxis. Proton pump inhibitors. 13. Plan. Continue current management. Case discussed with Dr. Hood. TK HOOD MD, AM/SHILPA Conf#: [id number] [facility]#: [id number] MTDD
[2016-11-18 17:05] LABS: ADD SCAN DIFF NO
[2016-11-18 17:06] LABS: BASOPHILS % 0.2 % (0.0-2.0); EOSINOPHILS % 0.2 % (0.0-7.0); HEMATOCRIT 25.2 % (37.0-47.0); HEMOGLOBIN 8.5 g/dl (12.0-16.0); LYMPHOCYTES # 0.7 10^3/ul (0.8-2.9); LYMPHOCYTES % 12.8 % (15.0-51.0); MEAN CORPUSCULAR HEMOGLOBIN 28.1 pg (29.0-33.0); MEAN CORPUSCULAR HGB CONC 33.7 g/dl (32.0-37.0); MEAN CORPUSCULAR VOLUME 83.2 fl (82.0-101.0); MEAN PLATELET VOLUME 9.3 fl (7.4-10.4); MONOCYTE # 0.3 10^3/ul (0.3-0.9); MONOCYTES % 5.1 % (0.0-11.0); NEUTROPHIL # 4.2 10^3/ul (1.6-7.5); NEUTROPHILS % 77.9 % (39.0-77.0); PLATELET COUNT 121 10^3/UL (140-415); RED BLOOD COUNT 3.03 10^6/ul (4.20-5.40); RED CELL DISTRIBUTION WIDTH 17.2 % (11.5-14.5); WHITE BLOOD COUNT 5.3 10^3/ul (4.8-10.8)
[2016-11-18 17:27] LABS: ALBUMIN 1.7 g/dl (3.3-4.9); BILIRUBIN,INDIRECT 0.2 mg/dl (0-1.1); BILIRUBIN,TOTAL 0.2 mg/dl (0.2-1.3); MAGNESIUM 1.4 mg/dl (1.7-2.5); TOTAL PROTEIN 4.7 g/dl (6.1-8.1)
[2016-11-18 17:30] LABS: CALCIUM 6.7 mg/dl (8.4-10.2); CREATININE 0.41 mg/dl (0.44-1.00); POTASSIUM 3.2 mmol/L (3.5-5.1)
--- NOTE | 2016-11-18 17:41 | PN ---
Date/Time of Note Date/Time of Note DATE: 11/18/16 TIME: 17:40 Assessment/Plan VTE Prophylaxis VTE Prophylaxis Intervention: SCD's Lines/Catheters IV [facility] Type ([facility]): PICC Line Central line still needed: Yes Urinary Cath still in place: Yes Reason Cath still needed: urinary retention Assessment/Plan Assessment/Plan Anemia hemoglobin EGD 11/12/2016 Severe ulcerated esophagitis, rule out opportunistic infections; i.e., Inocencia, CMV, others. Biopsies obtained Colonoscopy 11/12/2016 [place] ulcerative colitis, biopsies obtained, rule out Clostridium difficile, CMB, inflammatory bowel disease. Moderate sized internal hemorrhoids * HIV disease. Plan * continue present management * awaiting biopsy result Subjective 24 Hr Interval Summary Free Text/Dictation * course reviewed with RN * Patient seen and examined * No diarrhea Exam/Review of Systems Vital Signs Vitals Vital Signs Date Time Temp Pulse Resp B/P Pulse Ox O2 Delivery O2 Flow Rate FiO2 11/18/16 07:42 97.9 111 18 142/94 98 11/17/16 16:39 21 11/17/16 14:00 Room Air Intake and Output 11/17/16 11/17/16 11/18/16 15:00 23:00 07:00 Intake Total 1260 ml 600 ml 1130 ml Output Total 192 ml 1300 ml Balance 1068 ml 600 ml -170 ml Exam Constitutional: alert Neck: non-tender, supple Respiratory: clear to auscultation, normal air movement Cardiovascular: nl pulses, regular rate and rhythm Gastrointestinal: non-tender, soft Extremities: normal pulses Results Result Diagram: 11/18/16 1652 11/18/16 1652 Results 24 hrs Laboratory Tests Test 11/18/16 08:48 11/18/16 16:52 Lab Scanned Report REFERENCE LAB White Blood Count 5.3 Red Blood Count 3.03 L Hemoglobin 8.5 L Hematocrit 25.2 L Mean Corpuscular Volume 83.2 Mean Corpuscular Hemoglobin 28.1 L Mean Corpuscular Hemoglobin Concent 33.7 Red Cell Distribution Width 17.2 H Platelet Count 121 #L Mean Platelet Volume 9.3 Neutrophils % 77.9 H Lymphocytes % 12.8 L Monocytes % 5.1 Eosinophils % 0.2 Basophils % 0.2 Nucleated Red Blood Cells % 0.0 Neutrophils # 4.2 Lymphocytes # 0.7 L Monocytes # 0.3 Eosinophils # 0.0 Basophils # 0.0 Nucleated Red Blood Cells # 0.0 Sodium Level 129 L Potassium Level 3.2 L Chloride Level 110 Carbon Dioxide Level 21 Anion Gap 1 L Blood Urea Nitrogen 9 Creatinine 0.41 L Glucose Level 89 Calcium Level 6.7 L Magnesium Level 1.4 L Total Bilirubin 0.2 Direct Bilirubin 0.00 Indirect Bilirubin 0.2 Aspartate Amino Transf (AST/SGOT) 25 Alanine Aminotransferase (ALT/SGPT) 36 Alkaline Phosphatase 241 H Total Protein 4.7 L Albumin 1.7 L Medications Medications Current Medications Ondansetron HCl (Zofran Inj) 4 mg Q6H PRN IV NAUSEA AND/OR VOMITING; Start at 16:00 Acetaminophen (Tylenol Tab) 650 mg Q6H PRN PO PAIN LEVEL 1-3 OR FEVER; Start at 16:00 Acetaminophen/ Hydrocodone Bitart ([place] (5/325)) 1 tab Q6H PRN PO MODERATE PAIN LEVEL 4-6 Last administered on 11/14/16 20:22; Admin Dose 1 TAB; Start at 16:00 Magnesium Hydroxide (Milk Of Mag) 30 ml DAILY PRN PO CONSTIPATION; Start at 16:00 Sodium Biphosphate/ Sodium Phosphate (Fleet Enema) 133 ml DAILY PRN [place] CONSTIPATION; Start 11/11/16 at 16:00 Lorazepam (Ativan) 0.5 mg Q6H PRN IV ANXIETY; Start 11/11/16 at 16:00 Hydralazine HCl (Apresoline) 10 mg Q6H PRN IV ELEVATED BLOOD PRESSURE; Start at 16:00 Nitroglycerin (Nitroglycerin (Sl Tab) 0.4 Mg) 1 tab Q5M PRN SL ANGINA Last administered on 11/11/16 23:25; Admin Dose 1 TAB; Start 11/11/16 at 16:00 Efavirenz (Sustiva) 600 mg DAILY PO Last administered on 11/18/16 09:14; Admin Dose 600 MG; Start 11/12/16 at 09:00 Emtricitabine/ Tenofovir (Truvada) 1 tab DAILY PO Last administered on 09:14; Admin Dose 1 TAB; Start 11/12/16 at 09:00 Sucralfate (Carafate) 1 gm QID PO Last administered on 11/18/16 09:14; Admin Dose 1 GM; Start 11/11/16 at 17:00 Valganciclovir 450 mg 450 mg Q12 PO Last administered on 11/18/16 09:14; Admin Dose 450 MG; Start 11/11/16 at 21:00 Pantoprazole/ Sodium Chloride (Protonix Iv/NS) 100 ml @ 10 mls/hr Q10H IV Last administered on 11/18/16 09:14; Admin Dose 10 MLS/HR; Start 11/11/16 at 21 :30 Collagenase (Santyl) 1 applic DAILY TOP Last administered on 11/18/16 09:19; Admin Dose 1 APPLIC; Start 11/12/16 at 13:00 Collagenase (Santyl) 1 applic PRN PRN TOP WOUND CARE; Start 11/12/16 at 12:00 Mesalamine (Delzicol Dr) 800 mg QID PO Last administered on 11/18/16 09:15; Admin Dose 800 MG; Start 11/12/16 at 21:00 Vancomycin HCl (Vancomycin Oral Syringe) 250 mg Q6 PO Last administered on 11/18 05:23; Admin Dose 250 MG; Start 11/12/16 at 19:30 Fluconazole (Diflucan) 100 mg DAILY PO Last administered on 11/18/16 09:14; Admin Dose 100 MG; Start 11/13/16 at 09:00 Metoclopramide HCl (Reglan) 10 mg Q6 IV Last administered on 11/18/16 05:23; Admin Dose 10 MG; Start 11/13/16 at 00:00 Lactobacillus Acidophilus (Florajen3 Capsule) 1 each BID PO Last administered on 11/18/16 09:14; Admin Dose 1 EACH; Start 11/13/16 at 21:00 Acetaminophen/ Hydrocodone Bitart ([place] (5/325)) 1 tab Q4H PRN PO severe pain Last administered on 11/14/16 08:32; Admin Dose 1 TAB; Start 11/13/16 at 20:30 Morphine Sulfate 2 mg 2 mg Q4H PRN IV SEVERE PAIN LEVEL 7-10 Last administered on 11/17/16 11:28; Admin Dose 2 MG; Start 11/14/16 at 14:15 Ertapenem/Sodium Chloride (Invanz/NS) 100 ml @ 200 mls/hr Q24H IVPB Last administered on 11/17/16 20:54; Admin Dose 200 MLS/HR; Start 11/14/16 at 14:30 Trimethoprim/ Sulfamethoxazole 1 tab 1 tab BID PO Last administered on 09:14; Admin Dose 1 TAB; Start 11/16/16 at 09:30 Dextrose/Sodium Chloride (D5-1/2ns) 1,000 ml @ 100 mls/hr Q10H IV Last administered on 11/17/16 23:26; Admin Dose 100 MLS/HR; Start 11/17/16 at 08:00 Docusate Sodium (Colace) 100 mg Q12 PO Last administered on 11/18/16 09:14; Admin Dose 100 MG; Start 11/17/16 at 11:00 Mirtazapine (Remeron) 7.5 mg HS PO Last administered on 11/17/16 22:19; Admin Dose 7.5 MG; Start 11/17/16 at 21:00 LM LAMB MD November 18, 2016 17:41
[2016-11-18 20:00] VITALS: BP 130/95; RESP 19
[2016-11-18] MEDS ORDERED: VANCOMYCIN IV PER PHARMACY XX SCH (20:00)
[2016-11-18] MEDS: MIRTAZAPINE 15 MG TAB PO SCH (21:25)
[2016-11-18] MEDS ORDERED: VANCOMYCIN 1 GM in NS 250 ML IVPB ONE (22:00)
[2016-11-18] MEDS ORDERED: POTASSIUM CHLORIDE 250 ML IVPB ONE (22:00)
[2016-11-19] MEDS: METOCLOPRAMIDE 10 MG INJ IV SCH ×4 (00:28→17:41)
[2016-11-19] MEDS: VANCOMYCIN HCL 250 MG/5ML POSYG PO SCH ×4 (00:29→17:41)
[2016-11-19] MEDS: DEXTROSE 5%-0.45% NACL 1,000 ML IV SCH ×2 (00:34→10:00)
[2016-11-19] MEDS: PANTOPRAZOLE IV 80 MG in SOD CHLORIDE 0.9% 100 ML IV SCH ×2 (00:34→10:00)
--- NOTE | 2016-11-19 02:27 | PN ---
DATE: 11/18/2016 INFECTIOUS DISEASE PROGRESS NOTE SUBJECTIVE: No events overnight. No fevers. The patient is lying comfortably in bed. WBC today 5.3, platelets 121, neutrophils 77.9. BUN 9, creatinine 0.41. ANTIMICROBIALS: 1. Oral Bactrim. 2. IV Invanz. 3. Oral fluconazole. 4. Oral vancomycin. 5. Sustiva/Truvada. 6. Valcyte. MICROBIOLOGY: Urine culture grew E. coli and Proteus mirabilis, trochanteric wound culture growing E. coli ESBL, Proteus mirabilis enterococcus species. Stool for C. diff came back negative. PHYSICAL EXAMINATION: GENERAL: This is a chronically ill-appearing, middle-aged woman who is no distress. HEENT: Head atraumatic, normocephalic. Sclerae anicteric. Buccal mucosa dry. NECK: Supple, trachea midline. CHEST: Rise symmetrical. Breath sounds diminished to bases. HEART: S1, S2. ABDOMEN: Soft, bowel tones present. EXTREMITIES: Without cyanosis. ASSESSMENT: 1. Acute anemia with gastrointestinal bleeding, status post esophagogastroduodenoscopy and colonosc opy that revealed severe ulcerative esophagitis, pathology still pending. The patient is on Valcyte and fluconazole for possible opportunistic infection. 2. Polymicrobial urinary tract infection. 3. Multiple chronic wounds with wound culture growing E. coli ESBL, Enterococcus, Proteus mirabilis . 4. Human immunodeficiency virus positive, on antiretrovirals. 5. History of Inocencia esophagitis. 6. Colitis as per CT of the abdomen. 7. Severe deconditioning. PLAN: We are going to discontinue Bactrim, keep her on Invanz, Valcyte, oral vancomycin and Difluca n. Continue antiretroviral medications. Start vancomycin IV to cover enterococcus that she is grow ing from her wound. Await for final pathology report and follow recommendations of consultants. Dictated By: AGUILA BURGOS INFORMATION CLERK CASHIER for GINNY PIERSON/SHILPA Conf#: [id number] DID#: [id number]
[2016-11-19 05:53] LABS: MAGNESIUM 1.4 mg/dl (1.7-2.5); PHOSPHORUS 1.6 mg/dl (2.5-4.9)
[2016-11-19 06:57] LABS: ADD SCAN DIFF NO
[2016-11-19 07:00] LABS: ABNORMAL IP MESSAGE 1; BASOPHILS % 0.2 % (0.0-2.0); EOSINOPHILS % 0.2 % (0.0-7.0); HEMATOCRIT 27.2 % (37.0-47.0); LYMPHOCYTES # 0.5 10^3/ul (0.8-2.9); LYMPHOCYTES % 10.3 % (15.0-51.0); MEAN CORPUSCULAR HEMOGLOBIN 27.7 pg (29.0-33.0); MEAN CORPUSCULAR HGB CONC 33.1 g/dl (32.0-37.0); MEAN CORPUSCULAR VOLUME 83.7 fl (82.0-101.0); MEAN PLATELET VOLUME 9.9 fl (7.4-10.4); MONOCYTE # 0.3 10^3/ul (0.3-0.9); MONOCYTES % 5.2 % (0.0-11.0); NEUTROPHILS % 80.1 % (39.0-77.0); PLATELET COUNT 141 10^3/UL (140-415); RED BLOOD COUNT 3.25 10^6/ul (4.20-5.40); RED CELL DISTRIBUTION WIDTH 17.1 % (11.5-14.5)
[2016-11-19 07:03] LABS: POTASSIUM 3.3 mmol/L (3.5-5.1)
[2016-11-19 07:06] LABS: CREATININE 0.41 mg/dl (0.44-1.00)
[2016-11-19 07:07] LABS: CALCIUM 7.1 mg/dl (8.4-10.2)
[2016-11-19 07:41] VITALS: BP 139/92; RESP 20
[2016-11-19] MEDS: DOCUSATE SODIUM 100 MG CAP PO SCH ×2 (09:00→21:00)
[2016-11-19] MEDS: MESALAMINE (EC) 400 MG CAP PO SCH ×4 (09:51→20:56)
[2016-11-19] MEDS: SUCRALFATE 1 GM TAB PO SCH ×4 (09:51→20:55)
[2016-11-19] MEDS: EMTRICITABINE/TENOFOVIR TAB PO SCH (09:52)
[2016-11-19] MEDS: VALGANCICLOVIR 450 MG TAB PO SCH ×2 (09:52→20:56)
[2016-11-19] MEDS: EFAVIRENZ 600 MG TAB PO SCH (09:52)
[2016-11-19] MEDS: L ACIDOPHIL/B LACTIS/B LONGUM CAPSULE PO SCH ×2 (09:52→20:56)
[2016-11-19] MEDS: FLUCONAZOLE 100 MG TAB PO SCH (09:52)
[2016-11-19] MEDS: COLLAGENASE 30 GM TUBE TOP SCH (09:52)
[2016-11-19] MEDS: VANCOMYCIN 500MG/NS (PMX) 100 ML IVPB SCH ×2 (10:00→22:05)
--- NOTE | 2016-11-19 12:26 | PN ---
Date/Time of Note Date/Time of Note DATE: 11/19/16 TIME: 12:26 Assessment/Plan VTE Prophylaxis VTE Prophylaxis Intervention: SCD's Lines/Catheters IV Catheter Type (from [facility]): PICC Line Central line still needed: Yes Urinary Cath still in place: Yes Reason Cath still needed: other (indicate) Assessment/Plan Chief Complaint/Hosp Course 1. Lower gastrointestinal bleeding. Status post upper and lower endoscopy on 11/13/2016 that showed severe ulcerative esophagitis and a universal ulcerative colitis. Continue management as per Gastroenterology. Continue Mesalamine and Protonix drip. 2. Severe anemia secondary to #1, status post PRBC and platelet transfusion. Continue to monitor H&H closely. Transfuse as needed. 3. Human immunodeficiency virus/acquired immunodeficiency syndrome. CD4 count less than 35. CD4 count 157. Continue HAART. 4. Deconditioning. Physical therapy. 5. Multiple chronic wounds that are infected. Continue antimicrobials as per Infectious Disease. 6. History of polysubstance abuse. 7. History of depression and post-traumatic stress disorder. Continue mood stabilizers. 8. Urinary tract infection with E. coli and Proteus mirabilis. Continue antibiotics as per Infectious Disease. 9. Severe protein calorie malnutrition. Continue protein supplements. 10. Fluid, electrolytes and nutrition. Regular diet. 11. Deep vein thrombosis prophylaxis. Bilateral sequential compression devices. 12. Gastrointestinal prophylaxis. Proton pump inhibitors. 13. Plan. Continue current management. Replete magnesium, potassium, and phosphorus. Case discussed with Dr. Swanson. Problems: Subjective 24 Hr Interval Summary Free Text/Dictation No changes in status. Exam/Review of Systems Vital Signs Vitals Vital Signs Date Time Temp Pulse Resp B/P Pulse Ox O2 Delivery O2 Flow Rate FiO2 11/19/16 07:41 98.5 107 20 139/92 99 11/17/16 16:39 21 11/17/16 14:00 Room Air Intake and Output 11/18/16 11/18/16 11/19/16 15:00 23:00 07:00 Intake Total 120 ml 2220 ml 1695 ml Output Total 1700 ml 1700 ml Balance 120 ml 520 ml -5 ml Exam GENERAL: This is a 41-year-old female who appears malnourished, lying in bed in no apparent distress. HEENT: Head normocephalic and atraumatic. Eyes: Anicteric sclerae. Conjunctivae clear. ENT: Nasal septum is midline. Oral mucosa is dry. NECK: Supple. No JVD noticed. RESPIRATORY: Bilaterally clear to auscultation. No adventitious breath sounds heard. No use of accessory muscles of respiration. CARDIAC: Regular rate and rhythm. No murmurs heard. ABDOMEN: Soft, nontender and nondistended. Bowel sounds positive in all 4 quadrants. GENITOURINARY: Deferred. EXTREMITIES: No cyanosis, no clubbing. Bilateral lower extremity edema. Peripheral pulses palpable. NEUROLOGIC: The patient is awake, alert and oriented. Cranial nerves are grossly intact. Results Result Diagram: 11/19/16 0520 11/19/16 0520 Results 24 hrs Laboratory Tests Test 11/18/16 16:52 11/19/16 05:05 11/19/16 05:20 11/19/16 06:24 White Blood Count 5.3 5.0 Red Blood Count 3.03 L 3.25 L Hemoglobin 8.5 L 9.0 L Hematocrit 25.2 L 27.2 L Mean Corpuscular Volume 83.2 83.7 Mean Corpuscular Hemoglobin 28.1 L 27.7 L Mean Corpuscular Hemoglobin Concent 33.7 33.1 Red Cell Distribution Width 17.2 H 17.1 H Platelet Count 121 #L 141 Mean Platelet Volume 9.3 9.9 Neutrophils % 77.9 H 80.1 H Lymphocytes % 12.8 L 10.3 L Monocytes % 5.1 5.2 Eosinophils % 0.2 0.2 Basophils % 0.2 0.2 Nucleated Red Blood Cells % 0.0 0.0 Neutrophils # 4.2 4.0 Lymphocytes # 0.7 L 0.5 L Monocytes # 0.3 0.3 Eosinophils # 0.0 0.0 Basophils # 0.0 0.0 Nucleated Red Blood Cells # 0.0 0.0 Sodium Level 129 L 136 Potassium Level 3.2 L 3.3 L Chloride Level 110 117 H Carbon Dioxide Level 21 22 Anion Gap 1 L 0 L Blood Urea Nitrogen 9 8 Creatinine 0.41 L 0.41 L Glucose Level 89 83 Calcium Level 6.7 L 7.1 L Magnesium Level 1.4 L 1.4 L Total Bilirubin 0.2 Direct Bilirubin 0.00 Indirect Bilirubin 0.2 Aspartate Amino Transf (AST/SGOT) 25 Alanine Aminotransferase (ALT/SGPT) 36 Alkaline Phosphatase 241 H Total Protein 4.7 L Albumin 1.7 L Phosphorus Level 1.6 L Lab Scanned Report BLOOD TRANSFUSION Medications Medications Current Medications Ondansetron HCl (Zofran Inj) 4 mg Q6H PRN IV NAUSEA AND/OR VOMITING; Start at 16:00 Acetaminophen (Tylenol Tab) 650 mg Q6H PRN PO PAIN LEVEL 1-3 OR FEVER; Start at 16:00 Acetaminophen/ Hydrocodone Bitart ([place] (5/325)) 1 tab Q6H PRN PO MODERATE PAIN LEVEL 4-6 Last administered on 11/14/16 20:22; Admin Dose 1 TAB; Start at 16:00 Magnesium Hydroxide (Milk Of Mag) 30 ml DAILY PRN PO CONSTIPATION; Start at 16:00 Sodium Biphosphate/ Sodium Phosphate (Fleet Enema) 133 ml DAILY PRN [place] CONSTIPATION; Start 11/11/16 at 16:00 Lorazepam (Ativan) 0.5 mg Q6H PRN IV ANXIETY; Start 11/11/16 at 16:00 Hydralazine HCl (Apresoline) 10 mg Q6H PRN IV ELEVATED BLOOD PRESSURE; Start at 16:00 Nitroglycerin (Nitroglycerin (Sl Tab) 0.4 Mg) 1 tab Q5M PRN SL ANGINA Last administered on 11/11/16 23:25; Admin Dose 1 TAB; Start 11/11/16 at 16:00 Efavirenz (Sustiva) 600 mg DAILY PO Last administered on 11/19/16 09:52; Admin Dose 600 MG; Start 11/12/16 at 09:00 Emtricitabine/ Tenofovir (Truvada) 1 tab DAILY PO Last administered on 09:52; Admin Dose 1 TAB; Start 11/12/16 at 09:00 Sucralfate (Carafate) 1 gm QID PO Last administered on 11/19/16 09:51; Admin Dose 1 GM; Start 11/11/16 at 17:00 Valganciclovir 450 mg 450 mg Q12 PO Last administered on 11/19/16 09:52; Admin Dose 450 MG; Start 11/11/16 at 21:00 Pantoprazole/ Sodium Chloride (Protonix Iv/NS) 100 ml @ 10 mls/hr Q10H IV Last administered on 11/19/16 10:00; Admin Dose 10 MLS/HR; Start 11/11/16 at 21 :30 Collagenase (Santyl) 1 applic DAILY TOP Last administered on 11/19/16 09:52; Admin Dose 1 APPLIC; Start 11/12/16 at 13:00 Collagenase (Santyl) 1 applic PRN PRN TOP WOUND CARE; Start 11/12/16 at 12:00 Mesalamine (Delzicol Dr) 800 mg QID PO Last administered on 11/19/16 09:51; Admin Dose 800 MG; Start 11/12/16 at 21:00 Vancomycin HCl (Vancomycin Oral Syringe) 250 mg Q6 PO Last administered on 11/19 00:29; Admin Dose 250 MG; Start 11/12/16 at 19:30 Fluconazole (Diflucan) 100 mg DAILY PO Last administered on 11/19/16 09:52; Admin Dose 100 MG; Start 11/13/16 at 09:00 Metoclopramide HCl (Reglan) 10 mg Q6 IV Last administered on 11/19/16 05:30; Admin Dose 10 MG; Start 11/13/16 at 00:00 Lactobacillus Acidophilus (Florajen3 Capsule) 1 each BID PO Last administered on 11/19/16 09:52; Admin Dose 1 EACH; Start 11/13/16 at 21:00 Acetaminophen/ Hydrocodone Bitart ([place] (5/325)) 1 tab Q4H PRN PO severe pain Last administered on 11/14/16 08:32; Admin Dose 1 TAB; Start 11/13/16 at 20:30 Morphine Sulfate 2 mg 2 mg Q4H PRN IV SEVERE PAIN LEVEL 7-10 Last administered on 11/17/16 11:28; Admin Dose 2 MG; Start 11/14/16 at 14:15 Ertapenem 1 gm/ Sodium Chloride 100 ml @ 200 mls/hr Q24H IVPB Last administered on 11/18/16 14:30; Admin Dose 200 MLS/HR; Start 11/14/16 at 14:30 Dextrose/Sodium Chloride (D5-1/2ns) 1,000 ml @ 100 mls/hr Q10H IV Last administered on 11/19/16 10:00; Admin Dose 100 MLS/HR; Start 11/17/16 at 08:00 Docusate Sodium (Colace) 100 mg Q12 PO Last administered on 11/18/16 09:14; Admin Dose 100 MG; Start 11/17/16 at 11:00 Mirtazapine 7.5 mg 7.5 mg HS PO Last administered on 11/18/16 21:25; Admin Dose 7.5 MG; Start 11/17/16 at 21:00 Vancomycin HCl 100 ml @ 100 mls/hr Q12H IVPB Last administered on 11/19/16 10 :00; Admin Dose 100 MLS/HR; Start 11/19/16 at 10:00 Magnesium Sulfate 3 gm/Sodium Chloride 106 ml @ 35.333 mls/ hr ONCE ONCE IVPB ; Start 11/19/16 at 18:30; Stop 11/19/16 at 21:29 Potassium Phosphate/Sodium Chloride (K Phos (Mm)/NS) 260 ml @ 65 mls/hr ONCE ONCE IVPB ; Start 11/19/16 at 14:30; Stop 11/19/16 at 18:29 TK PERALES NP November 19, 2016 12:26
[2016-11-19] MEDS: ERTAPENEM SODIUM 1 GM in SOD CHLORIDE 0.9% 100 ML IVPB SCH (13:40)
--- NOTE | 2016-11-19 13:56 | PN ---
DATE: 11/19/2016 INFECTIOUS DISEASE PROGRESS NOTE SUBJECTIVE: No acute changes. The patient had been refusing oral vancomycin. She is lying comfort ably in bed. No fevers. LABORATORY DATA: WBC 5, platelets 141, neutrophils 80.1, BUN 8, creatinine 0.41. ANTIMICROBIALS: 1. Oral vancomycin. 2. IV vancomycin. 3. Invanz. 4. Fluconazole. 5. Sustiva. 6. Truvada. 7. Valcyte. PHYSICAL EXAMINATION: GENERAL: Chronically ill-appearing, wasted 41-year-old white woman who is in no distress. HEENT: Head atraumatic, normocephalic. Sclerae anicteric. Buccal mucosa dry. NECK: Supple, trachea midline. CHEST: Rise symmetrical. Breath sounds clear. HEART: S1, S2. ABDOMEN: Soft, bowel sounds present. EXTREMITIES: Without cyanosis. ASSESSMENT: 1. Anemia status post gastrointestinal bleeding with EGD and colonoscopy revealed severe ulcerative esophagitis and hemorrhoids, pathology pending. 2. Polymicrobial urinary tract infection with urine culture on admission grew Escherichia coli and Proteus mirabilis. 3. Multiple chronic decubitus with wound culture growing Escherichia coli extended spectrum beta-la ctamase, Enterococcus, and Proteus mirabilis. 4. Human immunodeficiency virus, last CD4 count in July 2016 392, remains on antiretrovirals. 5. History of Inocencia esophagitis. 6. Colitis as per CT of the abdomen. 7. Severe decompensated state. PLAN: The patient remains stable. Continue present care, antibiotics. Await for biopsy results. Follow gastroenterology recommendations and local wound care. Dictated By: AGUILA BURGOS [employer] TECHNICIAN for [employer]ERSON/[facility]ILPA Conf#: [id number] DID#: [id number]
--- NOTE | 2016-11-19 14:04 | PN ---
Date/Time of Note Date/Time of Note DATE: 11/19/16 TIME: 14:01 Assessment/Plan VTE Prophylaxis VTE Prophylaxis Intervention: SCD's Lines/Catheters IV Catheter Type (from [facility]rs): PICC Line Central line still needed: Yes Urinary Cath still in place: Yes Reason Cath still needed: urinary retention Assessment/Plan Assessment/Plan Assessment * Anemia hemoglobin 9 EGD 11/12/2016 Severe ulcerated esophagitis, rule out opportunistic infections; i.e., Inocencia, CMV, others. Biopsies obtained Colonoscopy 11/12/2016 [place] ulcerative colitis, biopsies obtained, rule out Clostridium difficile, CMB, inflammatory bowel disease. Moderate sized internal hemorrhoids * HIV disease. Plan * continue present management * awaiting biopsy result * DC protonix drip Subjective 24 Hr Interval Summary Free Text/Dictation * Course reviewed with RN * Patient seen and examined * No diarrhea nor abdominal pain * Still awaiting biopsy result Exam/Review of Systems Vital Signs Vitals Vital Signs Date Time Temp Pulse Resp B/P Pulse Ox O2 Delivery O2 Flow Rate FiO2 11/19/16 07:41 98.5 107 20 139/92 99 11/17/16 16:39 21 11/17/16 14:00 Room Air Intake and Output 11/18/16 11/18/16 11/19/16 15:00 23:00 07:00 Intake Total 120 ml 2220 ml 1695 ml Output Total 1700 ml 1700 ml Balance 120 ml 520 ml -5 ml Exam Constitutional: alert, frail Neck: non-tender, supple Respiratory: clear to auscultation, normal air movement Cardiovascular: nl pulses, regular rate and rhythm Gastrointestinal: non-tender, soft Musculoskeletal: nl extremities to inspection Extremities: normal pulses Results Result Diagram: 11/19/16 0520 11/19/16 0520 Results 24 hrs Laboratory Tests Test 11/18/16 16:52 11/19/16 05:05 11/19/16 05:20 11/19/16 06:24 White Blood Count 5.3 5.0 Red Blood Count 3.03 L 3.25 L Hemoglobin 8.5 L 9.0 L Hematocrit 25.2 L 27.2 L Mean Corpuscular Volume 83.2 83.7 Mean Corpuscular Hemoglobin 28.1 L 27.7 L Mean Corpuscular Hemoglobin Concent 33.7 33.1 Red Cell Distribution Width 17.2 H 17.1 H Platelet Count 121 #L 141 Mean Platelet Volume 9.3 9.9 Neutrophils % 77.9 H 80.1 H Lymphocytes % 12.8 L 10.3 L Monocytes % 5.1 5.2 Eosinophils % 0.2 0.2 Basophils % 0.2 0.2 Nucleated Red Blood Cells % 0.0 0.0 Neutrophils # 4.2 4.0 Lymphocytes # 0.7 L 0.5 L Monocytes # 0.3 0.3 Eosinophils # 0.0 0.0 Basophils # 0.0 0.0 Nucleated Red Blood Cells # 0.0 0.0 Sodium Level 129 L 136 Potassium Level 3.2 L 3.3 L Chloride Level 110 117 H Carbon Dioxide Level 21 22 Anion Gap 1 L 0 L Blood Urea Nitrogen 9 8 Creatinine 0.41 L 0.41 L Glucose Level 89 83 Calcium Level 6.7 L 7.1 L Magnesium Level 1.4 L 1.4 L Total Bilirubin 0.2 Direct Bilirubin 0.00 Indirect Bilirubin 0.2 Aspartate Amino Transf (AST/SGOT) 25 Alanine Aminotransferase (ALT/SGPT) 36 Alkaline Phosphatase 241 H Total Protein 4.7 L Albumin 1.7 L Phosphorus Level 1.6 L Lab Scanned Report BLOOD TRANSFUSION Medications Medications Current Medications Ondansetron HCl (Zofran Inj) 4 mg Q6H PRN IV NAUSEA AND/OR VOMITING; Start at 16:00 Acetaminophen (Tylenol Tab) 650 mg Q6H PRN PO PAIN LEVEL 1-3 OR FEVER; Start at 16:00 Acetaminophen/ Hydrocodone Bitart ([place] (5/325)) 1 tab Q6H PRN PO MODERATE PAIN LEVEL 4-6 Last administered on 11/14/16t 20:22; Admin Dose 1 TAB; Start at 16:00 Magnesium Hydroxide (Milk Of Mag) 30 ml DAILY PRN PO CONSTIPATION; Start at 16:00 Sodium Biphosphate/ Sodium Phosphate (Fleet Enema) 133 ml DAILY PRN [place] CONSTIPATION; Start 11/11/16 at 16:00 Lorazepam (Ativan) 0.5 mg Q6H PRN IV ANXIETY; Start 11/11/16 at 16:00 Hydralazine HCl (Apresoline) 10 mg Q6H PRN IV ELEVATED BLOOD PRESSURE; Start at 16:00 Nitroglycerin (Nitroglycerin (Sl Tab) 0.4 Mg) 1 tab Q5M PRN SL ANGINA Last administered on 11/11/16 23:25; Admin Dose 1 TAB; Start 11/11/16 at 16:00 Efavirenz (Sustiva) 600 mg DAILY PO Last administered on 11/19/16 09:52; Admin Dose 600 MG; Start 11/12/16 at 09:00 Emtricitabine/ Tenofovir (Truvada) 1 tab DAILY PO Last administered on 09:52; Admin Dose 1 TAB; Start 11/12/16 at 09:00 Sucralfate (Carafate) 1 gm QID PO Last administered on 11/19/16 09:51; Admin Dose 1 GM; Start 11/11/16 at 17:00 Valganciclovir 450 mg 450 mg Q12 PO Last administered on 11/19/16 09:52; Admin Dose 450 MG; Start 11/11/16 at 21:00 Pantoprazole/ Sodium Chloride (Protonix Iv/NS) 100 ml @ 10 mls/hr Q10H IV Last administered on 11/19/16 10:00; Admin Dose 10 MLS/HR; Start 11/11/16 at 21 :30 Collagenase (Santyl) 1 applic DAILY TOP Last administered on 11/19/16 09:52; Admin Dose 1 APPLIC; Start 11/12/16 at 13:00 Collagenase (Santyl) 1 applic PRN PRN TOP WOUND CARE; Start 11/12/16 at 12:00 Mesalamine (Delzicol Dr) 800 mg QID PO Last administered on 11/19/16 09:51; Admin Dose 800 MG; Start 11/12/16 at 21:00 Vancomycin HCl (Vancomycin Oral Syringe) 250 mg Q6 PO Last administered on 11/19 00:29; Admin Dose 250 MG; Start 11/12/16 at 19:30 Fluconazole (Diflucan) 100 mg DAILY PO Last administered on 11/19/16 09:52; Admin Dose 100 MG; Start 11/13/16 at 09:00 Metoclopramide HCl (Reglan) 10 mg Q6 IV Last administered on 11/19/16 05:30; Admin Dose 10 MG; Start 11/13/16 at 00:00 Lactobacillus Acidophilus (Florajen3 Capsule) 1 each BID PO Last administered on 11/19/16 09:52; Admin Dose 1 EACH; Start 11/13/16 at 21:00 Acetaminophen/ Hydrocodone Bitart ([place] (5/325)) 1 tab Q4H PRN PO severe pain Last administered on 11/14/16 08:32; Admin Dose 1 TAB; Start 11/13/16 at 20:30 Morphine Sulfate 2 mg 2 mg Q4H PRN IV SEVERE PAIN LEVEL 7-10 Last administered on 11/17/16 11:28; Admin Dose 2 MG; Start 11/14/16 at 14:15 Ertapenem 1 gm/ Sodium Chloride 100 ml @ 200 mls/hr Q24H IVPB Last administered on 11/19/16 13:40; Admin Dose 200 MLS/HR; Start 11/14/16 at 14:30 Dextrose/Sodium Chloride (D5-1/2ns) 1,000 ml @ 100 mls/hr Q10H IV Last administered on 11/19/16 10:00; Admin Dose 100 MLS/HR; Start 11/17/16 at 08:00 Docusate Sodium (Colace) 100 mg Q12 PO Last administered on 11/18/16 09:14; Admin Dose 100 MG; Start 11/17/16 at 11:00 Mirtazapine 7.5 mg 7.5 mg HS PO Last administered on 11/18/16 21:25; Admin Dose 7.5 MG; Start 11/17/16 at 21:00 Vancomycin HCl 100 ml @ 100 mls/hr Q12H IVPB Last administered on 11/19/16 10 :00; Admin Dose 100 MLS/HR; Start 11/19/16 at 10:00 Magnesium Sulfate 3 gm/Sodium Chloride 106 ml @ 35.333 mls/ hr ONCE ONCE IVPB ; Start 11/19/16 at 18:30; Stop 11/19/16 at 21:29 Potassium Phosphate/Sodium Chloride (K Phos (Mm)/NS) 260 ml @ 65 mls/hr ONCE ONCE IVPB ; Start 11/19/16 at 14:30; Stop 11/19/16 at 18:29 LM LAMB MD November 19, 2016 14:04
[2016-11-19] MEDS ORDERED: POTASSIUM PHOSPHATE 30 MM in SOD CHLORIDE 0.9% 250 ML IVPB ONE (14:30)
[2016-11-19] MEDS: PANTOPRAZOLE 40 MG INJ IV SCH (17:41)
[2016-11-19] MEDS ORDERED: MAGNESIUM SULFATE 3 GM in SOD CHLORIDE 0.9% 100 ML IVPB ONE (18:30)
[2016-11-19 19:54] VITALS: BP 119/87; RESP 20
[2016-11-19] MEDS: MIRTAZAPINE 15 MG TAB PO SCH (20:56)
[2016-11-20] MEDS: METOCLOPRAMIDE 10 MG INJ IV SCH ×4 (00:08→17:00)
[2016-11-20] MEDS: VANCOMYCIN HCL 250 MG/5ML POSYG PO SCH ×4 (00:08→17:00)
[2016-11-20] MEDS: DEXTROSE 5%-0.45% NACL 1,000 ML IV SCH ×3 (00:38→11:11)
[2016-11-20] MEDS: PANTOPRAZOLE 40 MG INJ IV SCH ×2 (05:28→17:00)
[2016-11-20 06:15] LABS: ADD SCAN DIFF NO
[2016-11-20 06:32] LABS: EOSINOPHILS # 0.1 10^3/ul (0.0-0.5); EOSINOPHILS % 1.6 % (0.0-7.0); HEMATOCRIT 26.9 % (37.0-47.0); HEMOGLOBIN 8.8 g/dl (12.0-16.0); LYMPHOCYTES # 0.7 10^3/ul (0.8-2.9); LYMPHOCYTES % 16.6 % (15.0-51.0); MEAN CORPUSCULAR HEMOGLOBIN 27.6 pg (29.0-33.0); MEAN CORPUSCULAR HGB CONC 32.7 g/dl (32.0-37.0); MEAN CORPUSCULAR VOLUME 84.3 fl (82.0-101.0); MEAN PLATELET VOLUME 10.4 fl (7.4-10.4); MONOCYTE # 0.2 10^3/ul (0.3-0.9); MONOCYTES % 5.4 % (0.0-11.0); NEUTROPHIL # 3.1 10^3/ul (1.6-7.5); NEUTROPHILS % 71.7 % (39.0-77.0); PLATELET COUNT 176 10^3/UL (140-415); RED BLOOD COUNT 3.19 10^6/ul (4.20-5.40); RED CELL DISTRIBUTION WIDTH 17.1 % (11.5-14.5); WHITE BLOOD COUNT 4.3 10^3/ul (4.8-10.8)
[2016-11-20 07:01] LABS: MAGNESIUM 2.1 mg/dl (1.7-2.5); PHOSPHORUS 2.8 mg/dl (2.5-4.9)
[2016-11-20 07:07] LABS: CALCIUM 6.9 mg/dl (8.4-10.2); CREATININE 0.4 mg/dl (0.44-1.00)
[2016-11-20 07:56] VITALS: BP 125/82; RESP 20
[2016-11-20] MEDS: DOCUSATE SODIUM 100 MG CAP PO SCH ×2 (09:00→21:19)
[2016-11-20] MEDS: MESALAMINE (EC) 400 MG CAP PO SCH ×4 (09:00→21:18)
[2016-11-20] MEDS: SUCRALFATE 1 GM TAB PO SCH ×4 (09:00→21:18)
[2016-11-20] MEDS: COLLAGENASE 30 GM TUBE TOP SCH (09:43)
[2016-11-20] MEDS: VANCOMYCIN 500MG/NS (PMX) 100 ML IVPB SCH (11:13)
[2016-11-20] MEDS: FLUCONAZOLE 100 MG TAB PO SCH (11:24)
[2016-11-20] MEDS: EFAVIRENZ 600 MG TAB PO SCH (11:24)
[2016-11-20] MEDS: L ACIDOPHIL/B LACTIS/B LONGUM CAPSULE PO SCH ×2 (11:24→21:18)
[2016-11-20] MEDS: VALGANCICLOVIR 450 MG TAB PO SCH ×2 (11:25→21:18)
[2016-11-20] MEDS: EMTRICITABINE/TENOFOVIR TAB PO SCH (11:25)
--- NOTE | 2016-11-20 12:22 | PN ---
Date/Time of Note Date/Time of Note DATE: 11/20/16 TIME: 12:16 Assessment/Plan VTE Prophylaxis VTE Prophylaxis Intervention: SCD's Lines/Catheters [facility] PICC Line Central line still needed: Yes Urinary Cath still in place: Yes Reason Cath still needed: other (indicate) Assessment/Plan Chief Complaint/Hosp Course 1. Lower gastrointestinal bleeding. Status post upper and lower endoscopy on 11/13/2016 that showed severe ulcerative esophagitis and a universal ulcerative colitis. Continue management as per Gastroenterology. Continue Mesalamine and Protonix drip. 2. Severe anemia secondary to #1, status post PRBC and platelet transfusion. Continue to monitor H&H closely. Transfuse as needed. 3. Human immunodeficiency virus/acquired immunodeficiency syndrome. CD4 count less than 35. CD4 count 157. Continue HAART. 4. Deconditioning. Physical therapy. 5. Multiple chronic wounds that are infected. Continue antimicrobials as per Infectious Disease. 6. History of polysubstance abuse. 7. History of depression and post-traumatic stress disorder. Continue mood stabilizers. 8. Urinary tract infection with E. coli and Proteus mirabilis. Continue antibiotics as per Infectious Disease. 9. Severe protein calorie malnutrition. Continue protein supplements. 10. Fluid, electrolytes and nutrition. Regular diet. 11. Deep vein thrombosis prophylaxis. Bilateral sequential compression devices. 12. Gastrointestinal prophylaxis. Proton pump inhibitors. 13. Plan. Continue current management. Replete potassium. The patient has right lower quadrant abdominal colostomy bag that is draining what looks like urine. There is no explanation of this drainage whatsoever by reviewing the patient's history and physical, ER records, or prior progress notes. We will have wound care nurse evaluate this. Will also send the fluid for analysis. Case discussed with Dr. Swanson. Problems: Subjective 24 Hr Interval Summary Free Text/Dictation The patient has been selectively refusing medications. Exam/Review of Systems Vital Signs Vitals Vital Signs Date Time Temp Pulse Resp B/P Pulse Ox O2 Delivery O2 Flow Rate FiO2 11/20/16 07:56 98.0 113 20 125/82 99 11/17/16 16:39 21 11/17/16 14:00 Room Air Intake and Output 11/19/16 11/19/16 11/20/16 15:00 23:00 07:00 Intake Total 790 ml 1366 ml 1400 ml Output Total 1100 ml 600 ml Balance 790 ml 266 ml 800 ml Exam GENERAL: This is a 41-year-old female who appears malnourished, lying in bed in no apparent distress. HEENT: Head normocephalic and atraumatic. Eyes: Anicteric sclerae. Conjunctivae clear. ENT: Nasal septum is midline. Oral mucosa is dry. NECK: Supple. No JVD noticed. RESPIRATORY: Bilaterally clear to auscultation. No adventitious breath sounds heard. No use of accessory muscles of respiration. CARDIAC: Regular rate and rhythm. No murmurs heard. ABDOMEN: Soft, nontender and nondistended. Bowel sounds positive in all 4 quadrants. Right lower quadrant drain in place (unclear what type of drain is this). GENITOURINARY: Deferred. EXTREMITIES: No cyanosis, no clubbing. Bilateral lower extremity edema. Peripheral pulses palpable. NEUROLOGIC: The patient is awake, alert and oriented. Cranial nerves are grossly intact. Results Result Diagram: 11/20/16 0530 11/20/16 0530 Results 24 hrs Laboratory Tests Test 11/20/16 05:30 11/20/16 09:00 White Blood Count 4.3 L Red Blood Count 3.19 L Hemoglobin 8.8 L Hematocrit 26.9 L Mean Corpuscular Volume 84.3 Mean Corpuscular Hemoglobin 27.6 L Mean Corpuscular Hemoglobin Concent 32.7 Red Cell Distribution Width 17.1 H Platelet Count 176 # Mean Platelet Volume 10.4 Neutrophils % 71.7 Lymphocytes % 16.6 Monocytes % 5.4 Eosinophils % 1.6 Basophils % 0.0 Nucleated Red Blood Cells % 0.0 Neutrophils # 3.1 Lymphocytes # 0.7 L Monocytes # 0.2 L Eosinophils # 0.1 Basophils # 0.0 Nucleated Red Blood Cells # 0.0 Sodium Level 132 L Potassium Level 3.0 L Chloride Level 112 H Carbon Dioxide Level 22 Anion Gap 1 L Blood Urea Nitrogen 7 Creatinine 0.40 L Glucose Level 86 Calcium Level 6.9 L Phosphorus Level 2.8 Magnesium Level 2.1 Vancomycin Level Trough 9.2 L Medications Medications Current Medications Ondansetron HCl (Zofran Inj) 4 mg Q6H PRN IV NAUSEA AND/OR VOMITING; Start at 16:00 Acetaminophen (Tylenol Tab) 650 mg Q6H PRN PO PAIN LEVEL 1-3 OR FEVER; Start at 16:00 Acetaminophen/ Hydrocodone Bitart ([place] (5/325)) 1 tab Q6H PRN PO MODERATE PAIN LEVEL 4-6 Last administered on 11/14/16 20:22; Admin Dose 1 TAB; Start at 16:00 Magnesium Hydroxide (Milk Of Mag) 30 ml DAILY PRN PO CONSTIPATION; Start at 16:00 Sodium Biphosphate/ Sodium Phosphate (Fleet Enema) 133 ml DAILY PRN [place] CONSTIPATION; Start 11/11/16 at 16:00 Lorazepam (Ativan) 0.5 mg Q6H PRN IV ANXIETY; Start 11/11/16 at 16:00 Hydralazine HCl (Apresoline) 10 mg Q6H PRN IV ELEVATED BLOOD PRESSURE; Start at 16:00 Nitroglycerin (Nitroglycerin (Sl Tab) 0.4 Mg) 1 tab Q5M PRN SL ANGINA Last administered on 11/11/16 23:25; Admin Dose 1 TAB; Start 11/11/16 at 16:00 Efavirenz (Sustiva) 600 mg DAILY PO Last administered on 11/19/16 09:52; Admin Dose 600 MG; Start 11/12/16 at 09:00 Emtricitabine/ Tenofovir (Truvada) 1 tab DAILY PO Last administered on 09:52; Admin Dose 1 TAB; Start 11/12/16 at 09:00 Sucralfate (Carafate) 1 gm QID PO Last administered on 11/19/16 20:55; Admin Dose 1 GM; Start 11/11/16 at 17:00 Valganciclovir (Valcyte) 450 mg Q12 PO Last administered on 11/19/16 20:56; Admin Dose 450 MG; Start 11/11/16 at 21:00 Collagenase (Santyl) 1 applic DAILY TOP Last administered on 11/20/16 09:43; Admin Dose 1 APPLIC; Start 11/12/16 at 13:00 Collagenase (Santyl) 1 applic PRN PRN TOP WOUND CARE; Start 11/12/16 at 12:00 Mesalamine (Delzicol Dr) 800 mg QID PO Last administered on 11/19/16 20:56; Admin Dose 800 MG; Start 11/12/16 at 21:00 Vancomycin HCl (Vancomycin Oral Syringe) 250 mg Q6 PO Last administered on 11:19; Admin Dose 250 MG; Start 11/12/16 at 19:30 Fluconazole (Diflucan) 100 mg DAILY PO Last administered on 11/19/16 09:52; Admin Dose 100 MG; Start 11/13/16 at 09:00 Metoclopramide HCl (Reglan) 10 mg Q6 IV Last administered on 11/20/16 11:29; Admin Dose 10 MG; Start 11/13/16 at 00:00 Lactobacillus Acidophilus (Florajen3 Capsule) 1 each BID PO Last administered on 11/19/16 20:56; Admin Dose 1 EACH; Start 11/13/16 at 21:00 Acetaminophen/ Hydrocodone Bitart ([place] (5/325)) 1 tab Q4H PRN PO severe pain Last administered on 11/14/16 08:32; Admin Dose 1 TAB; Start 11/13/16 at 20:30 Morphine Sulfate 2 mg 2 mg Q4H PRN IV SEVERE PAIN LEVEL 7-10 Last administered on 11/17/16 11:28; Admin Dose 2 MG; Start 11/14/16 at 14:15 Ertapenem 1 gm/ Sodium Chloride 100 ml @ 200 mls/hr Q24H IVPB Last administered on 11/19/16 13:40; Admin Dose 200 MLS/HR; Start 11/14/16 at 14:30 Dextrose/Sodium Chloride (D5-1/2ns) 1,000 ml @ 100 mls/hr Q10H IV Last administered on 11/20/16 11:11; Admin Dose 100 MLS/HR; Start 11/17/16 at 08:00 Docusate Sodium (Colace) 100 mg Q12 PO Last administered on 11/18/16 09:14; Admin Dose 100 MG; Start 11/17/16 at 11:00 Mirtazapine (Remeron) 7.5 mg HS PO Last administered on 11/19/16 20:56; Admin Dose 7.5 MG; Start 11/17/16 at 21:00 Pantoprazole 40 mg 40 mg BID@06,18 IV Last administered on 11/20/16 05:28; Admin Dose 40 MG; Start 11/19/16 at 18:00 Potassium Chloride 250 ml @ 62.5 mls/hr ONCE ONCE IVPB ; Start 11/20/16 at 13: 00; Stop 11/20/16 at 16:59 Vancomycin HCl/ Sodium Chloride (Vancocin/NS) 150 ml @ 75 mls/hr Q12H IVPB ; Start 11/20/16 at 22:00 TK PERALES NP Nov 20, 2016 12:22
[2016-11-20] MEDS ORDERED: POTASSIUM CHLORIDE 250 ML IVPB ONE (13:00)
[2016-11-20] MEDS: ERTAPENEM SODIUM 1 GM in SOD CHLORIDE 0.9% 100 ML IVPB SCH (13:34)
--- NOTE | 2016-11-20 14:26 | CONS ---
Date/Time of Note Date/Time of Note DATE: 11/20/16 TIME: 14:25 Assessment/Plan Assessment/Plan Chief Complaint/Hosp Course SUBJECTIVE: No acute changes. The patient is lying comfortably in bed. No fevers. ANTIMICROBIALS: 1. Oral vancomycin. 2. IV vancomycin. 3. Invanz. 4. Fluconazole. 5. Sustiva. 6. Truvada. 7. Valcyte. PHYSICAL EXAMINATION: GENERAL: Chronically ill-appearing, wasted 41-year-old white woman who is in no distress. HEENT: Head atraumatic, normocephalic. Sclerae anicteric. Buccal mucosa dry. NECK: Supple, trachea midline. CHEST: Rise symmetrical. Breath sounds clear. HEART: S1, S2. ABDOMEN: Soft, bowel sounds present. EXTREMITIES: Without cyanosis. ASSESSMENT: 1. Anemia status post gastrointestinal bleeding with EGD and colonoscopy revealed severe ulcerative esophagitis and hemorrhoids, pathology pending. 2. Polymicrobial urinary tract infection with urine culture on admission grew Escherichia coli and Proteus mirabilis. 3. Multiple chronic decubitus with wound culture growing Escherichia coli extended spectrum beta-lactamase, Enterococcus, and Proteus mirabilis. 4. Human immunodeficiency virus, last CD4 count in July 2016 392, remains on antiretrovirals. 5. History of Inocencia esophagitis. 6. Colitis as per CT of the abdomen. 7. Severe decompensated state. PLAN: The patient remains stable. Continue present care, antibiotics. Await for biopsy results. Follow gastroenterology recommendations, continue local wound care. DW staff Problems: Consultation Date/Type/Reason Admit Date/Time November 11, 2016 at 15:19 Initial Consult Date 11/11/16 Type of Consultation: ID Referring Provider: JESUS RUIZ Exam/Review of Systems Vital Signs Vitals Vital Signs Date Time Temp Pulse Resp B/P Pulse Ox O2 Delivery O2 Flow Rate FiO2 11/20/16 07:56 98.0 113 20 125/82 99 11/17/16 16:39 21 11/17/16 14:00 Room Air Intake and Output 11/19/16 11/19/16 11/20/16 15:00 23:00 07:00 Intake Total 790 ml 1366 ml 1400 ml Output Total 1100 ml 600 ml Balance 790 ml 266 ml 800 ml Results Result Diagram: 11/20/16 0530 11/20/16 0530 Results 24 hrs Laboratory Tests Test 11/20/16 05:30 11/20/16 09:00 White Blood Count 4.3 L Red Blood Count 3.19 L Hemoglobin 8.8 L Hematocrit 26.9 L Mean Corpuscular Volume 84.3 Mean Corpuscular Hemoglobin 27.6 L Mean Corpuscular Hemoglobin Concent 32.7 Red Cell Distribution Width 17.1 H Platelet Count 176 # Mean Platelet Volume 10.4 Neutrophils % 71.7 Lymphocytes % 16.6 Monocytes % 5.4 Eosinophils % 1.6 Basophils % 0.0 Nucleated Red Blood Cells % 0.0 Neutrophils # 3.1 Lymphocytes # 0.7 L Monocytes # 0.2 L Eosinophils # 0.1 Basophils # 0.0 Nucleated Red Blood Cells # 0.0 Sodium Level 132 L Potassium Level 3.0 L Chloride Level 112 H Carbon Dioxide Level 22 Anion Gap 1 L Blood Urea Nitrogen 7 Creatinine 0.40 L Glucose Level 86 Calcium Level 6.9 L Phosphorus Level 2.8 Magnesium Level 2.1 Vancomycin Level Trough 9.2 L Medications Medications Current Medications Ondansetron HCl (Zofran Inj) 4 mg Q6H PRN IV NAUSEA AND/OR VOMITING; Start at 16:00 Acetaminophen (Tylenol Tab) 650 mg Q6H PRN PO PAIN LEVEL 1-3 OR FEVER; Start at 16:00 Acetaminophen/ Hydrocodone Bitart ([place] (5/325)) 1 tab Q6H PRN PO MODERATE PAIN LEVEL 4-6 Last administered on 11/14/16 20:22; Admin Dose 1 TAB; Start at 16:00 Magnesium Hydroxide (Milk Of Mag) 30 ml DAILY PRN PO CONSTIPATION; Start at 16:00 Sodium Biphosphate/ Sodium Phosphate (Fleet Enema) 133 ml DAILY PRN [place] CONSTIPATION; Start 11/11/16 at 16:00 Lorazepam (Ativan) 0.5 mg Q6H PRN IV ANXIETY; Start 11/11/16 at 16:00 Hydralazine HCl (Apresoline) 10 mg Q6H PRN IV ELEVATED BLOOD PRESSURE; Start at 16:00 Nitroglycerin (Nitroglycerin (Sl Tab) 0.4 Mg) 1 tab Q5M PRN SL ANGINA Last administered on 11/11/16 23:25; Admin Dose 1 TAB; Start 11/11/16 at 16:00 Efavirenz (Sustiva) 600 mg DAILY PO Last administered on 11/19/16 09:52; Admin Dose 600 MG; Start 11/12/16 at 09:00 Emtricitabine/ Tenofovir (Truvada) 1 tab DAILY PO Last administered on 09:52; Admin Dose 1 TAB; Start 11/12/16 at 09:00 Sucralfate (Carafate) 1 gm QID PO Last administered on 11/19/16 20:55; Admin Dose 1 GM; Start 11/11/16 at 17:00 Valganciclovir (Valcyte) 450 mg Q12 PO Last administered on 11/19/16 20:56; Admin Dose 450 MG; Start 11/11/16 at 21:00 Collagenase (Santyl) 1 applic DAILY TOP Last administered on 11/20/16 09:43; Admin Dose 1 APPLIC; Start 11/12/16 at 13:00 Collagenase (Santyl) 1 applic PRN PRN TOP WOUND CARE; Start 11/12/16 at 12:00 Mesalamine (Delzicol Dr) 800 mg QID PO Last administered on 11/19/16 20:56; Admin Dose 800 MG; Start 11/12/16 at 21:00 Vancomycin HCl (Vancomycin Oral Syringe) 250 mg Q6 PO Last administered on 11:19; Admin Dose 250 MG; Start 11/12/16 at 19:30 Fluconazole (Diflucan) 100 mg DAILY PO Last administered on 11/19/16 09:52; Admin Dose 100 MG; Start 11/13/16 at 09:00 Metoclopramide HCl (Reglan) 10 mg Q6 IV Last administered on 11/20/16 11:29; Admin Dose 10 MG; Start 11/13/16 at 00:00 Lactobacillus Acidophilus (Florajen3 Capsule) 1 each BID PO Last administered on 11/19/16 20:56; Admin Dose 1 EACH; Start 11/13/16 at 21:00 Acetaminophen/ Hydrocodone Bitart ([place] (5/325)) 1 tab Q4H PRN PO severe pain Last administered on 11/14/16 08:32; Admin Dose 1 TAB; Start 11/13/16 at 20:30 Morphine Sulfate 2 mg 2 mg Q4H PRN IV SEVERE PAIN LEVEL 7-10 Last administered on 11/17/16 11:28; Admin Dose 2 MG; Start 11/14/16 at 14:15 Ertapenem 1 gm/ Sodium Chloride 100 ml @ 200 mls/hr Q24H IVPB Last administered on 11/20/16 13:34; Admin Dose 200 MLS/HR; Start 11/14/16 at 14:30 Dextrose/Sodium Chloride (D5-1/2ns) 1,000 ml @ 100 mls/hr Q10H IV Last administered on 11/20/16 11:11; Admin Dose 100 MLS/HR; Start 11/17/16 at 08:00 Docusate Sodium (Colace) 100 mg Q12 PO Last administered on 11/18/16 09:14; Admin Dose 100 MG; Start 11/17/16 at 11:00 Mirtazapine (Remeron) 7.5 mg HS PO Last administered on 11/19/16 20:56; Admin Dose 7.5 MG; Start 11/17/16 at 21:00 Pantoprazole 40 mg 40 mg BID@06,18 IV Last administered on 11/20/16 05:28; Admin Dose 40 MG; Start 11/19/16 at 18:00 Potassium Chloride 250 ml @ 62.5 mls/hr ONCE ONCE IVPB Last administered on 13:35; Admin Dose 62.5 MLS/HR; Start 11/20/16 at 13:00; Stop 11/20/16 at 16:59 Vancomycin HCl/ Sodium Chloride (Vancocin/NS) 150 ml @ 75 mls/hr Q12H IVPB ; Start 11/20/16 at 22:00 AGUILA BURGOS NP Nov 20, 2016 14:26
[2016-11-20 16:29] LABS: ADD UMIC YES; UR BILIRUBIN (Dip) NEGATIVE (NEGATIVE); UR BLOOD (Dip) 1+ (NEGATIVE); UR COLOR LT. YELLOW (YELLOW); UR KETONES (Dip) NEGATIVE (NEGATIVE); UR LEUKOCYTE ESTERASE (Dip) NEGATIVE (NEGATIVE); UR NITRITE (Dip) NEGATIVE (NEGATIVE); UR TOTAL PROTEIN (Dip) 2+ (NEGATIVE); UR UROBILINOGEN (Dip) 0.2 E.U./dL (0.1-1.0)
[2016-11-20 16:41] LABS: UR CLARITY HAZY (CLEAR)
[2016-11-20 16:44] LABS: UR BACTERIA FEW
[2016-11-20] MEDS: morphine 4 MG/ML VIAL IV PRN (17:07)
[2016-11-20 19:50] VITALS: BP 114/83; RESP 18
[2016-11-20] MEDS: MIRTAZAPINE 15 MG TAB PO SCH (21:18)
[2016-11-20] MEDS: VANCOMYCIN 750 MG in SOD CHLORIDE 0.9% 150 ML IVPB SCH (21:19)
[2016-11-21] MEDS: DEXTROSE 5%-0.45% NACL 1,000 ML IV SCH ×2 (00:14→12:49)
[2016-11-21] MEDS: METOCLOPRAMIDE 10 MG INJ IV SCH ×4 (00:14→17:40)
[2016-11-21] MEDS: VANCOMYCIN HCL 250 MG/5ML POSYG PO SCH ×4 (00:14→17:40)
[2016-11-21 05:31] LABS: ADD SCAN DIFF NO
[2016-11-21 05:52] LABS: BASOPHILS % 0.2 % (0.0-2.0); EOSINOPHILS # 0.1 10^3/ul (0.0-0.5); EOSINOPHILS % 1.4 % (0.0-7.0); HEMATOCRIT 24.1 % (37.0-47.0); HEMOGLOBIN 7.9 g/dl (12.0-16.0); LYMPHOCYTES # 0.7 10^3/ul (0.8-2.9); LYMPHOCYTES % 15.3 % (15.0-51.0); MEAN CORPUSCULAR HEMOGLOBIN 28.1 pg (29.0-33.0); MEAN CORPUSCULAR HGB CONC 32.8 g/dl (32.0-37.0); MEAN CORPUSCULAR VOLUME 85.8 fl (82.0-101.0); MEAN PLATELET VOLUME 9.2 fl (7.4-10.4); MONOCYTE # 0.2 10^3/ul (0.3-0.9); MONOCYTES % 4.1 % (0.0-11.0); NEUTROPHIL # 3.4 10^3/ul (1.6-7.5); NEUTROPHILS % 76.3 % (39.0-77.0); PLATELET COUNT 179 10^3/UL (140-415); RED BLOOD COUNT 2.81 10^6/ul (4.20-5.40); RED CELL DISTRIBUTION WIDTH 16.8 % (11.5-14.5); WHITE BLOOD COUNT 4.4 10^3/ul (4.8-10.8)
[2016-11-21 06:12] LABS: ALBUMIN 1.8 g/dl (3.3-4.9); ALBUMIN/GLOBULIN RATIO 0.64; BILIRUBIN,INDIRECT 0.1 mg/dl (0-1.1); BILIRUBIN,TOTAL 0.1 mg/dl (0.2-1.3); CALCIUM 6.6 mg/dl (8.4-10.2); CREATININE 0.42 mg/dl (0.44-1.00); POTASSIUM 3.1 mmol/L (3.5-5.1); TOTAL PROTEIN 4.6 g/dl (6.1-8.1)
[2016-11-21] MEDS: PANTOPRAZOLE 40 MG INJ IV SCH ×2 (06:13→17:40)
[2016-11-21 06:37] LABS: MAGNESIUM 1.8 mg/dl (1.7-2.5); PHOSPHORUS 2.2 mg/dl (2.5-4.9)
[2016-11-21 08:18] VITALS: BP 119/81; RESP 26
[2016-11-21] MEDS: DOCUSATE SODIUM 100 MG CAP PO SCH ×2 (09:00→20:48)
[2016-11-21] MEDS: EMTRICITABINE/TENOFOVIR TAB PO SCH (09:19)
[2016-11-21] MEDS: FLUCONAZOLE 100 MG TAB PO SCH (09:19)
[2016-11-21] MEDS: EFAVIRENZ 600 MG TAB PO SCH (09:19)
[2016-11-21] MEDS: morphine 4 MG/ML VIAL IV PRN ×2 (09:20→22:06)
[2016-11-21] MEDS: VANCOMYCIN 750 MG in SOD CHLORIDE 0.9% 150 ML IVPB SCH ×2 (09:20→21:50)
[2016-11-21] MEDS: SUCRALFATE 1 GM TAB PO SCH ×4 (09:20→21:51)
[2016-11-21] MEDS: VALGANCICLOVIR 450 MG TAB PO SCH ×2 (09:20→21:51)
[2016-11-21] MEDS: L ACIDOPHIL/B LACTIS/B LONGUM CAPSULE PO SCH ×2 (09:20→21:51)
[2016-11-21 09:26] LABS: FLUID AMYLASE < 30 U/L; FLUID GLUCOSE 92 mg/dl; FLUID TYPE ABDOMINAL FLUID
[2016-11-21 09:27] LABS: FLUID TOTAL PROTEIN < 2.0 g/dl
[2016-11-21] MEDS: COLLAGENASE 30 GM TUBE TOP SCH (09:32)
[2016-11-21 10:06] LABS: FLUID APPEARANCE CLEAR; FLUID BASOPHIL 0 %; FLUID EOSINOPHIL 11 %; FLUID LYMPHOCYTES 44 %; FLUID MONOCYTES 11 %; FLUID NEUTROPHILS 33 %; FLUID RBC EST 0; FLUID TYPE ABDOMINAL; FLUID WBC'S 9 /cmm
--- NOTE | 2016-11-21 11:59 | PN ---
Date/Time of Note Date/Time of Note DATE: 11/21/16 TIME: 11:55 Assessment/Plan VTE Prophylaxis VTE Prophylaxis Intervention: SCD's Lines/Catheters IV [facility]ter Type (from [facility]): PICC Line Central line still needed: Yes Urinary Cath still in place: Yes Reason Cath still needed: other (indicate) Assessment/Plan Chief Complaint/Hosp Course 1. Lower gastrointestinal bleeding. Status post upper and lower endoscopy on 11/13/2016 that showed severe ulcerative esophagitis and a universal ulcerative colitis. Continue management as per Gastroenterology. Continue Mesalamine and Protonix drip. 2. Severe anemia secondary to #1, status post PRBC and platelet transfusion. Continue to monitor H&H closely. Transfuse as needed. 3. Human immunodeficiency virus/acquired immunodeficiency syndrome. CD4 count less than 35. CD4 count 157. Continue HAART. 4. Deconditioning. Physical therapy. 5. Multiple chronic wounds that are infected. Continue antimicrobials as per Infectious Disease. 6. History of polysubstance abuse. 7. History of depression and post-traumatic stress disorder. Continue mood stabilizers. 8. Urinary tract infection with E. coli and Proteus mirabilis. Continue antibiotics as per Infectious Disease. 9. Severe protein calorie malnutrition. Continue protein supplements. 10. Right lower quadrant abdominal orifice draining clear fluid. Possible fistula. General surgery consult has been called. Status post evaluation by wound care. 11. Fluid, electrolytes and nutrition. Regular diet. 21. Deep vein thrombosis prophylaxis. Bilateral sequential compression devices. 12. Gastrointestinal prophylaxis. Proton pump inhibitors. 13. Plan. Continue current management. Replete potassium and phosphorous. Case discussed with Dr. Swanson. Later talked to the surgeon. 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 Hence the surgeon asked to call urology. Urologist, Dr. Jimenez has been called and informed about the patient. Dr. Jimenez asked to order a CT scan of the abdomen and pelvis with IV contrast. Problems: Subjective 24 Hr Interval Summary Free Text/Dictation The patient remains afebrile. Exam/Review of Systems Vital Signs Vitals Vital Signs Date Time Temp Pulse Resp B/P Pulse Ox O2 Delivery O2 Flow Rate FiO2 11/21/16 08:18 99.1 120 26 119/81 95 11/17/16 16:39 21 11/17/16 14:00 Room Air Intake and Output 611/20/16 11/21/16 15:00 23:00 07:00 Intake Total 550 ml 1885 ml 755 ml Output Total 500 ml 750 ml Balance 550 ml 1385 ml 5 ml Exam GENERAL: This is a 41-year-old female who appears malnourished, lying in bed in no apparent distress. HEENT: Head normocephalic and atraumatic. Eyes: Anicteric sclerae. Conjunctivae clear. ENT: Nasal septum is midline. Oral mucosa is dry. NECK: Supple. No JVD noticed. RESPIRATORY: Bilaterally clear to auscultation. No adventitious breath sounds heard. No use of accessory muscles of respiration. CARDIAC: Regular rate and rhythm. No murmurs heard. ABDOMEN: Soft, nontender and nondistended. Bowel sounds positive in all 4 quadrants. Right lower quadrant drain in place. GENITOURINARY: Deferred. EXTREMITIES: No cyanosis, no clubbing. Bilateral lower extremity edema. Peripheral pulses palpable. NEUROLOGIC: The patient is awake, alert and oriented. Cranial nerves are grossly intact. Results Result Diagram: 11/21/16 0453 11/21/16 0453 Results 24 hrs Laboratory Tests Test 11/20/16 12:28 11/20/16 12:51 11/21/16 04:00 11/21/16 04:53 Urine Color LT. YELLOW Urine Clarity HAZY Urine pH 7.0 Urine Specific [place] 1.015 Urine Ketones NEGATIVE Urine Nitrite NEGATIVE Urine Bilirubin NEGATIVE Urine Urobilinogen 0.2 E.U./dL Urine Leukocyte Esterase NEGATIVE Urine Microscopic RBC 10-25 Urine Microscopic WBC 2-5 Urine Bacteria FEW Urine Hemoglobin 1+ H Urine Glucose 0.25% H Urine Total Protein 2+ H Stool Occult Blood POSITIVE Body Fluid Type ABDOMINAL FLUID Body Fluid Volume 20.0 Body Fluid Color YELLOW Body Fluid Appearance CLEAR Body Fluid WBC 9 Body Fluid RBC 0 Body Fluid Neutrophils % 33 Body Fluid Lymphocytes (%) 44 Body Fluid Monocytes % 11 Body Fluid Eosinophils % 11 Body Fluid Basophils % 0 Body Fluid Other Cells (%) 0 Body Fluid Glucose 92 Body Fluid Total Protein < 2.0 Body Fluid Lactate Dehydrogenase Body Fluid Amylase < 30 White Blood Count 4.4 L Red Blood Count 2.81 L Hemoglobin 7.9 L Hematocrit 24.1 L Mean Corpuscular Volume 85.8 Mean Corpuscular Hemoglobin 28.1 L Mean Corpuscular Hemoglobin Concent 32.8 Red Cell Distribution Width 16.8 H Platelet Count 179 Mean Platelet Volume 9.2 Neutrophils % 76.3 Lymphocytes % 15.3 Monocytes % 4.1 Eosinophils % 1.4 Basophils % 0.2 Nucleated Red Blood Cells % 0.0 Neutrophils # 3.4 Lymphocytes # 0.7 L Monocytes # 0.2 L Eosinophils # 0.1 Basophils # 0.0 Nucleated Red Blood Cells # 0.0 Sodium Level 135 Potassium Level 3.1 L Chloride Level 111 H Carbon Dioxide Level 23 Anion Gap 4 L Blood Urea Nitrogen 6 L Creatinine 0.42 L Glucose Level 95 Calcium Level 6.6 L Phosphorus Level 2.2 L Magnesium Level 1.8 Total Bilirubin 0.1 L Direct Bilirubin 0.00 Indirect Bilirubin 0.1 Aspartate Amino Transf (AST/SGOT) 22 Alanine Aminotransferase (ALT/SGPT) 33 Alkaline Phosphatase 183 H Total Protein 4.6 L Albumin 1.8 L Globulin 2.80 Albumin/Globulin Ratio 0.64 Medications Medications Current Medications Ondansetron HCl (Zofran Inj) 4 mg Q6H PRN IV NAUSEA AND/OR VOMITING; Start at 16:00 Acetaminophen (Tylenol Tab) 650 mg Q6H PRN PO PAIN LEVEL 1-3 OR FEVER; Start at 16:00 Acetaminophen/ Hydrocodone Bitart ([place] (5/325)) 1 tab Q6H PRN PO MODERATE PAIN LEVEL 4-6 Last administered on 11/14/16 20:22; Admin Dose 1 TAB; Start at 16:00 Magnesium Hydroxide (Milk Of Mag) 30 ml DAILY PRN PO CONSTIPATION; Start at 16:00 Sodium Biphosphate/ Sodium Phosphate (Fleet Enema) 133 ml DAILY PRN [place] CONSTIPATION; Start 11/11/16 at 16:00 Lorazepam (Ativan) 0.5 mg Q6H PRN IV ANXIETY; Start 11/11/16 at 16:00 Hydralazine HCl (Apresoline) 10 mg Q6H PRN IV ELEVATED BLOOD PRESSURE; Start at 16:00 Nitroglycerin (Nitroglycerin (Sl Tab) 0.4 Mg) 1 tab Q5M PRN SL ANGINA Last administered on 11/11/16 23:25; Admin Dose 1 TAB; Start 11/11/16 at 16:00 Efavirenz (Sustiva) 600 mg DAILY PO Last administered on 11/21/16 09:19; Admin Dose 600 MG; Start 11/12/16 at 09:00 Emtricitabine/ Tenofovir (Truvada) 1 tab DAILY PO Last administered on 09:19; Admin Dose 1 TAB; Start 11/12/16 at 09:00 Sucralfate (Carafate) 1 gm QID PO Last administered on 11/21/16 09:20; Admin Dose 1 GM; Start 11/11/16 at 17:00 Valganciclovir (Valcyte) 450 mg Q12 PO Last administered on 11/21/16 09:20; Admin Dose 450 MG; Start 11/11/16 at 21:00 Collagenase (Santyl) 1 applic DAILY TOP Last administered on 11/21/16 09:32; Admin Dose 1 APPLIC; Start 11/12/16 at 13:00 Collagenase (Santyl) 1 applic PRN PRN TOP WOUND CARE; Start 11/12/16 at 12:00 Mesalamine (Delzicol Dr) 800 mg QID PO Last administered on 11/20/16 21:18; Admin Dose 800 MG; Start 11/12/16 at 21:00 Vancomycin HCl (Vancomycin Oral Syringe) 250 mg Q6 PO Last administered on 06:13; Admin Dose 250 MG; Start 11/12/16 at 19:30 Fluconazole (Diflucan) 100 mg DAILY PO Last administered on 11/21/16 09:19; Admin Dose 100 MG; Start 11/13/16 at 09:00 Metoclopramide HCl (Reglan) 10 mg Q6 IV Last administered on 11/21/16 06:13; Admin Dose 10 MG; Start 11/13/16 at 00:00 Lactobacillus Acidophilus (Florajen3 Capsule) 1 each BID PO Last administered on 11/21/16 09:20; Admin Dose 1 EACH; Start 11/13/16 at 21:00 Acetaminophen/ Hydrocodone Bitart ([place] (5/325)) 1 tab Q4H PRN PO severe pain Last administered on 11/14/16 08:32; Admin Dose 1 TAB; Start 11/13/16 at 20:30 Morphine Sulfate 2 mg 2 mg Q4H PRN IV SEVERE PAIN LEVEL 7-10 Last administered on 11/21/16 09:20; Admin Dose 2 MG; Start 11/14/16 at 14:15 Ertapenem 1 gm/ Sodium Chloride 100 ml @ 200 mls/hr Q24H IVPB Last administered on 11/20/16 13:34; Admin Dose 200 MLS/HR; Start 11/14/16 at 14:30 Dextrose/Sodium Chloride (D5-1/2ns) 1,000 ml @ 100 mls/hr Q10H IV Last administered on 11/21/16 00:14; Admin Dose 100 MLS/HR; Start 11/17/16 at 08:00 Docusate Sodium (Colace) 100 mg Q12 PO Last administered on 11/20/16 21:19; Admin Dose 100 MG; Start 11/17/16 at 11:00 Mirtazapine (Remeron) 7.5 mg HS PO Last administered on 11/20/16 21:18; Admin Dose 7.5 MG; Start 11/17/16 at 21:00 Pantoprazole 40 mg 40 mg BID@06,18 IV Last administered on 11/21/16 06:13; Admin Dose 40 MG; Start 11/19/16 at 18:00 Vancomycin HCl 750 mg/Sodium Chloride 150 ml @ 75 mls/hr Q12H IVPB Last administered on 11/21/16 09:20; Admin Dose 75 MLS/HR; Start 11/20/16 at 22:00 Potassium Chloride (KCl 40 MEQ/250 ML NS) 250 ml @ 62.5 mls/hr ONCE ONCE IVPB ; Start 11/21/16 at 13:00; Stop 11/21/16 at 16:59 TK PERALES NP Nov 21, 2016 11:59
[2016-11-21] MEDS: MESALAMINE (EC) 400 MG CAP PO SCH ×4 (12:50→21:51)
[2016-11-21] MEDS ORDERED: POTASSIUM CHLORIDE 250 ML IVPB ONE (13:00)
[2016-11-21] MEDS ORDERED: SODIUM PHOSPHATE 15 MMOL in SOD CHLORIDE 0.9% 250 ML IVPB ONE (13:00)
[2016-11-21] MEDS ORDERED: BARIUM SULF 2% 450 ML BTL (BERRY SMOOTHIE) PO ONE (13:00)
--- NOTE | 2016-11-21 13:35 | CONS ---
Date/Time of Note Date/Time of Note DATE: 11/21/16 TIME: 13:34 Assessment/Plan Assessment/Plan Chief Complaint/Hosp Course SUBJECTIVE: No acute changes. The patient is alert, feels better, no fevers. ANTIMICROBIALS: 1. Oral vancomycin. 2. IV vancomycin. 3. Invanz. 4. Fluconazole. 5. Sustiva. 6. Truvada. 7. Valcyte. PHYSICAL EXAMINATION: GENERAL: Chronically ill-appearing, wasted 41-year-old white woman who is in no distress. HEENT: Head atraumatic, normocephalic. Sclerae anicteric. Buccal mucosa dry. NECK: Supple, trachea midline. CHEST: Rise symmetrical. Breath sounds clear. HEART: S1, S2. ABDOMEN: Soft, bowel sounds present. EXTREMITIES: Without cyanosis. ASSESSMENT: 1. Anemia status post gastrointestinal bleeding with EGD and colonoscopy revealed severe ulcerative esophagitis and hemorrhoids, pathology pending. 2. Polymicrobial urinary tract infection with urine culture on admission grew Escherichia coli and Proteus mirabilis. 3. Multiple chronic decubitus with wound culture growing Escherichia coli extended spectrum beta-lactamase, Enterococcus, and Proteus mirabilis. 4. Human immunodeficiency virus, last CD4 count in July 2016 392, remains on antiretrovirals. 5. History of Inocencia esophagitis. 6. Colitis as per CT of the abdomen. 7. Severe decompensated state. PLAN: The patient remains stable. Continue present care, complete antibiotics. Await for biopsy results. Follow gastroenterology recommendations , continue local wound care. DW staff Problems: Consultation Date/Type/Reason Admit Date/Time November 11, 2016 at 15:19 Initial Consult Date 11/11/16 Type of Consultation: ID Referring Provider: JESUS RUIZ Exam/Review of Systems Vital Signs Vitals Vital Signs Date Time Temp Pulse Resp B/P Pulse Ox O2 Delivery O2 Flow Rate FiO2 11/21/16 08:18 99.1 120 26 119/81 95 11/17/16 16:39 21 11/17/16 14:00 Room Air Intake and Output 11/20/16 11/20/16 11/21/16 15:00 23:00 07:00 Intake Total 550 ml 1885 ml 755 ml Output Total 500 ml 750 ml Balance 550 ml 1385 ml 5 ml Results Result Diagram: 11/21/16 0453 11/21/16 0453 Results 24 hrs Laboratory Tests Test 11/21/16 04:00 11/21/16 04:53 Body Fluid Type ABDOMINAL FLUID Body Fluid Volume 20.0 Body Fluid Color YELLOW Body Fluid Appearance CLEAR Body Fluid WBC 9 Body Fluid RBC 0 Body Fluid Neutrophils % 33 Body Fluid Lymphocytes (%) 44 Body Fluid Monocytes % 11 Body Fluid Eosinophils % 11 Body Fluid Basophils % 0 Body Fluid Other Cells (%) 0 Body Fluid Glucose 92 Body Fluid Total Protein < 2.0 Body Fluid Lactate Dehydrogenase Body Fluid Amylase < 30 White Blood Count 4.4 L Red Blood Count 2.81 L Hemoglobin 7.9 L Hematocrit 24.1 L Mean Corpuscular Volume 85.8 Mean Corpuscular Hemoglobin 28.1 L Mean Corpuscular Hemoglobin Concent 32.8 Red Cell Distribution Width 16.8 H Platelet Count 179 Mean Platelet Volume 9.2 Neutrophils % 76.3 Lymphocytes % 15.3 Monocytes % 4.1 Eosinophils % 1.4 Basophils % 0.2 Nucleated Red Blood Cells % 0.0 Neutrophils # 3.4 Lymphocytes # 0.7 L Monocytes # 0.2 L Eosinophils # 0.1 Basophils # 0.0 Nucleated Red Blood Cells # 0.0 Sodium Level 135 Potassium Level 3.1 L Chloride Level 111 H Carbon Dioxide Level 23 Anion Gap 4 L Blood Urea Nitrogen 6 L Creatinine 0.42 L Glucose Level 95 Calcium Level 6.6 L Phosphorus Level 2.2 L Magnesium Level 1.8 Total Bilirubin 0.1 L Direct Bilirubin 0.00 Indirect Bilirubin 0.1 Aspartate Amino Transf (AST/SGOT) 22 Alanine Aminotransferase (ALT/SGPT) 33 Alkaline Phosphatase 183 H Total Protein 4.6 L Albumin 1.8 L Globulin 2.80 Albumin/Globulin Ratio 0.64 Medications Medications Current Medications Ondansetron HCl (Zofran Inj) 4 mg Q6H PRN IV NAUSEA AND/OR VOMITING; Start at 16:00 Acetaminophen (Tylenol Tab) 650 mg Q6H PRN PO PAIN LEVEL 1-3 OR FEVER; Start at 16:00 Acetaminophen/ Hydrocodone Bitart ([place] (5/325)) 1 tab Q6H PRN PO MODERATE PAIN LEVEL 4-6 Last administered on 11/14/16t 20:22; Admin Dose 1 TAB; Start at 16:00 Magnesium Hydroxide (Milk Of Mag) 30 ml DAILY PRN PO CONSTIPATION; Start at 16:00 Sodium Biphosphate/ Sodium Phosphate (Fleet Enema) 133 ml DAILY PRN [place] CONSTIPATION; Start 11/11/16 at 16:00 Lorazepam (Ativan) 0.5 mg Q6H PRN IV ANXIETY; Start 11/11/16 at 16:00 Hydralazine HCl (Apresoline) 10 mg Q6H PRN IV ELEVATED BLOOD PRESSURE; Start at 16:00 Nitroglycerin (Nitroglycerin (Sl Tab) 0.4 Mg) 1 tab Q5M PRN [place] ANGINA Last administered on 11/11/16 23:25; Admin Dose 1 TAB; Start 11/11/16 at 16:00 Efavirenz (Sustiva) 600 mg DAILY PO Last administered on 11/21/16 09:19; Admin Dose 600 MG; Start 11/12/16 at 09:00 Emtricitabine/ Tenofovir (Truvada) 1 tab DAILY PO Last administered on 09:19; Admin Dose 1 TAB; Start 11/12/16 at 09:00 Sucralfate (Carafate) 1 gm QID PO Last administered on 11/21/16 12:50; Admin Dose 1 GM; Start 11/11/16 at 17:00 Valganciclovir (Valcyte) 450 mg Q12 PO Last administered on 11/21/16 09:20; Admin Dose 450 MG; Start 11/11/16 at 21:00 Collagenase (Santyl) 1 applic DAILY TOP Last administered on 11/21/16 09:32; Admin Dose 1 APPLIC; Start 11/12/16 at 13:00 Collagenase (Santyl) 1 applic PRN PRN TOP WOUND CARE; Start 11/12/16 at 12:00 Mesalamine (Delzicol Dr) 800 mg QID PO Last administered on 11/21/16 12:50; Admin Dose 800 MG; Start 11/12/16 at 21:00 Vancomycin HCl (Vancomycin Oral Syringe) 250 mg Q6 PO Last administered on 12:49; Admin Dose 250 MG; Start 11/12/16 at 19:30 Fluconazole (Diflucan) 100 mg DAILY PO Last administered on 11/21/16 09:19; Admin Dose 100 MG; Start 11/13/16 at 09:00 Metoclopramide HCl (Reglan) 10 mg Q6 IV Last administered on 11/21/16 12:49; Admin Dose 10 MG; Start 11/13/16 at 00:00 Lactobacillus Acidophilus (Florajen3 Capsule) 1 each BID PO Last administered on 11/21/16 09:20; Admin Dose 1 EACH; Start 11/13/16 at 21:00 Acetaminophen/ Hydrocodone Bitart ([place] (5/325)) 1 tab Q4H PRN PO severe pain Last administered on 11/14/16 08:32; Admin Dose 1 TAB; Start 11/13/16 at 20:30 Morphine Sulfate 2 mg 2 mg Q4H PRN IV SEVERE PAIN LEVEL 7-10 Last administered on 11/21/16 09:20; Admin Dose 2 MG; Start 11/14/16 at 14:15 Ertapenem 1 gm/ Sodium Chloride 100 ml @ 200 mls/hr Q24H IVPB Last administered on 11/20/16 13:34; Admin Dose 200 MLS/HR; Start 11/14/16 at 14:30 Dextrose/Sodium Chloride (D5-1/2ns) 1,000 ml @ 100 mls/hr Q10H IV Last administered on 11/21/16 12:49; Admin Dose 100 MLS/HR; Start 11/17/16 at 08:00 Docusate Sodium (Colace) 100 mg Q12 PO Last administered on 11/20/16 21:19; Admin Dose 100 MG; Start 11/17/16 at 11:00 Mirtazapine (Remeron) 7.5 mg HS PO Last administered on 11/20/16 21:18; Admin Dose 7.5 MG; Start 11/17/16 at 21:00 Pantoprazole 40 mg 40 mg BID@06,18 IV Last administered on 11/21/16 06:13; Admin Dose 40 MG; Start 11/19/16 at 18:00 Vancomycin HCl 750 mg/Sodium Chloride 150 ml @ 75 mls/hr Q12H IVPB Last administered on 11/21/16 09:20; Admin Dose 75 MLS/HR; Start 11/20/16 at 22:00 Potassium Chloride 250 ml @ 62.5 mls/hr ONCE ONCE IVPB Last administered on 12:50; Admin Dose 62.5 MLS/HR; Start 11/21/16 at 13:00; Stop 11/21/16 at 16:59 Sodium Phosphate/ Sodium Chloride (Sodium Phosphate/NS) 255 ml @ 63.75 mls/ hr ONCE ONCE IVPB ; Start 11/21/16 at 13:00; Stop 11/21/16 at 16:59 AGUILA BURGOS NP Nov 21, 2016 13:35
[2016-11-21] MEDS: ERTAPENEM SODIUM 1 GM in SOD CHLORIDE 0.9% 100 ML IVPB SCH (13:54)
--- NOTE | 2016-11-21 20:51 | PN ---
Date/Time of Note Date/Time of Note DATE: 11/21/16 TIME: 20:43 Assessment/Plan Lines/Catheters IV Catheter Type (from [facility]): PICC Line Hughes in Place (from [facility]): Yes Assessment/Plan Chief Complaint/Hosp Course 1. Right lower quadrant serous fluid leak through a pinpoint had possible previous site of femoral access attempts. Differential diagnosis includes peritoneal fluid versus urine versus other. -Send fluid for evaluation including creatinine -Repeat CT scan -If bladder involvement would need urologic consultation 2. Recent rectal bleeding with hemorrhagic shock & Anemia s/p transfusions -Monitor closely -PPIs and Carafate -Optimize medical status. 3. HIV positive -Continue medications 4. UTI with E. coli and Proteus -Antibiotics 5. Multiple chronic wounds -Local care -Nutrition optimization -Vitamin C 6. History of polysubstance abuse including tobacco -Encourage cessation 7. Psychiatric disorder with depression -Medical and psychiatric optimization 8. Severe protein calorie malnutrition and hypoalbuminemia -Encourage nutritional optimization Thank you, Dictation #: [id number] Problems: Subjective 24 Hr Interval Summary Continuously from the right lower quadrant. No fevers or chills. No nausea vomiting. No chest pain or shortness of breath. No cough. No seizure. No blood per mouth or rectum. No dysuria Exam/Review of Systems Vital Signs Vitals Vital Signs Date Time Temp Pulse Resp B/P Pulse Ox O2 Delivery O2 Flow Rate FiO2 11/21/16 08:18 99.1 120 26 119/81 95 11/17/16 16:39 21 11/17/16 14:00 Room Air Intake and Output 11/20/16 11/20/16 11/21/16 14:59 22:59 06:59 Intake Total 550 ml 1885 ml 755 ml Output Total 500 ml 750 ml Balance 550 ml 1385 ml 5 ml Exam Constitutional: alert, oriented, No distress Psych: nl mood/affect, No anxiety Head: atraumatic, normocephalic Eyes: EOMI, PERRL, nl conjunctiva ENMT: mucosa pink and moist, nl external ears & nose Neck: non-tender, supple Respiratory: normal air movement, No congested cough, No labored breathing Cardiovascular: No edema, No regular rate and rhythm Gastrointestinal: non-tender, soft, No rebound or guarding Musculoskeletal: nl extremities to inspection, No joint tenderness Extremities: normal pulses, No calf tenderness, No cyanosis Neurological: nl mental status, nl speech Skin: nl turgor, No diaphoresis, No rash or lesions Lymph: nl lymph nodes Results Result Diagram: 11/21/16 0453 11/21/16 0453 GEMA HUITRON MD Nov 21, 2016 20:51
[2016-11-21] MEDS: MIRTAZAPINE 15 MG TAB PO SCH (21:52)
[2016-11-21 22:15] VITALS: BP 123/87; RESP 18
--- NOTE | 2016-11-21 22:23 | CONS ---
DATE OF ADMISSION: 11/11/2016 DATE OF CONSULTATION: 11/20/2016 REFERRING PHYSICIAN: You Henry NP. CHIEF COMPLAINT: Right lower quadrant serous fluid that is new, questionable fistula. HISTORY OF PRESENT ILLNESS: Lakshmi Maya is a 41-year-old female with multiple comorbidities who initially presented with weakness and rectal bleeding with significant anemia of 4.6 and received m ultiple transfusions. Required central line placement in the ER on the femoral on the right side. Patient underwent a colonoscopy and was found to have ulcerative colitis with internal hemorrhoids. An EGD identified ulcerative esophagitis. The past few days, apparently she started leaking some s erous fluid from the right lower quadrant and VAC has been placed, and it continues to persistently leak. At this point, surgical consult is obtained for further evaluation and treatment. She denies any fevers or chills. No pain. No vomiting. No previous history of the same. No cough . No seizure. No headache. No dizziness. No dysuria. PAST MEDICAL HISTORY: 1. GI bleed. 2. Ulcerative esophagitis. 3. Ulcerative colitis. 4. Significant anemia. 5. HIV positive, with CD4 count less than 35. 6. Deconditioning. 7. Multiple chronic wounds. 8. Polysubstance abuse. 9. Depression. 10. Posttraumatic stress disorder. 11. Urinary tract infection with Escherichia coli and Proteus mirabilis. 12. Severe protein calorie malnutrition. 13. New leak from the right lower quadrant. 14. Leukopenia. 15. Hypokalemia. 16. Hypocalcemia. 17. Significant hypoalbuminemia. 18. Mild coagulopathy. 19. Recent hemorrhagic shock. 20. Pleural effusions. 21. Questionable liver cirrhosis. 22. Cachexia. 23. Hepatitis C. 24. Smoking. PAST SURGICAL HISTORY: 1. EGD. 2. Colonoscopy. 3. Thoracentesis. MEDICATIONS: Aspirin. ALLERGIES: IBUPROFEN AND HYDROCORTISONE. SOCIAL HISTORY: Polysubstance abuse. Smoker. No alcohol. FAMILY HISTORY: Noncontributory. REVIEW OF SYSTEMS: A 12-point of systems negative unless addressed in HPI. PHYSICAL EXAMINATION: VITAL SIGNS: Temperature is 98, pulse 100s to 120s, blood pressure 125/80, saturating 99%. GENERAL: No acute distress. HEENT: Pupils equal, reactive. No scleral icterus. Mucous membranes are moist. NECK: Supple, no JVD. PULMONARY: Normal respiratory effort. No wheezing. HEART: S1, S2 present and tachycardic. ABDOMEN: Soft, nontender. Right lower quadrant with a small pinpoint with fluid leak that is serou s. EXTREMITIES: No edema. VASCULAR: Capillary refill is 2 seconds. NEUROLOGIC: Awake, oriented. Moves extremities grossly. LYMPHATICS: No inguinal, cervical lymphadenopathy. LABORATORY AND RADIOGRAPHIC: As per chart and HPI. ASSESSMENT AND PLAN: Lakshmi Maya is a 41-year-old female with multiple significant comorbiditie s. 1. Right lower quadrant serous fluid leak through a pinpoint at possible previous site of femoral a ccess attempts. Differential diagnosis includes peritoneal fluid versus urine versus other. A. Send fluid for evaluation including creatinine. B. Repeat CT scan. C. If bladder involvement, would need urologic consultation. 2. Recent rectal bleeding with hemorrhagic shock, status post transfusion. A. Monitor closely. B. PPIs and Carafate. C. Optimize medical status. 3. Human immunodeficiency virus positive. Continue medications. 4. Urinary tract infection with Escherichia coli and Proteus mirabilis. Antibiotics. 5. Multiple chronic wounds. A. Local care. B. Nutritional optimization. C. Vitamin C. 6. ____ tobacco. Encourage cessation. 7. Psychiatric disorder with depression. Medical and psychiatric optimization. 8. Severe protein calorie malnutrition and hypoalbuminemia. Encourage nutritional optimization. Thank you very much for consulting me in this patient's care. Dictated By: GEMA SILVERIO/SHILPA Conf#: [id number] DID#: [id number]
[2016-11-22] MEDS: DEXTROSE 5%-0.45% NACL 1,000 ML IV SCH ×4 (04:21→21:44)
[2016-11-22] MEDS: PANTOPRAZOLE 40 MG INJ IV SCH ×2 (05:10→17:17)
[2016-11-22] MEDS: VANCOMYCIN HCL 250 MG/5ML POSYG PO SCH ×4 (05:25→17:17)
[2016-11-22] MEDS: METOCLOPRAMIDE 10 MG INJ IV SCH ×4 (05:25→17:17)
[2016-11-22 06:07] LABS: ADD SCAN DIFF NO
[2016-11-22 06:10] LABS: EOSINOPHILS % 0.9 % (0.0-7.0); HEMATOCRIT 22.9 % (37.0-47.0); HEMOGLOBIN 7.4 g/dl (12.0-16.0); LYMPHOCYTES # 0.8 10^3/ul (0.8-2.9); LYMPHOCYTES % 17.3 % (15.0-51.0); MEAN CORPUSCULAR HEMOGLOBIN 27.7 pg (29.0-33.0); MEAN CORPUSCULAR HGB CONC 32.3 g/dl (32.0-37.0); MEAN CORPUSCULAR VOLUME 85.8 fl (82.0-101.0); MEAN PLATELET VOLUME 8.8 fl (7.4-10.4); MONOCYTE # 0.2 10^3/ul (0.3-0.9); MONOCYTES % 4.8 % (0.0-11.0); NEUTROPHIL # 3.4 10^3/ul (1.6-7.5); NEUTROPHILS % 75.2 % (39.0-77.0); PLATELET COUNT 180 10^3/UL (140-415); RED BLOOD COUNT 2.67 10^6/ul (4.20-5.40); RED CELL DISTRIBUTION WIDTH 16.8 % (11.5-14.5); WHITE BLOOD COUNT 4.6 10^3/ul (4.8-10.8)
[2016-11-22 06:38] LABS: MAGNESIUM 1.7 mg/dl (1.7-2.5); PHOSPHORUS 2.6 mg/dl (2.5-4.9)
[2016-11-22] MEDS ORDERED: BARIUM SULF 2% 450 ML BTL (BERRY SMOOTHIE) PO ONE (07:00)
[2016-11-22 07:09] LABS: CALCIUM 6.8 mg/dl (8.4-10.2); CREATININE 0.38 mg/dl (0.44-1.00); POTASSIUM 3.1 mmol/L (3.5-5.1)
[2016-11-22] MEDS: COLLAGENASE 30 GM TUBE TOP SCH (08:30)
[2016-11-22] MEDS: MESALAMINE (EC) 400 MG CAP PO SCH ×4 (09:00→21:27)
[2016-11-22] MEDS: DOCUSATE SODIUM 100 MG CAP PO SCH ×2 (09:00→21:27)
[2016-11-22] MEDS: FLUCONAZOLE 100 MG TAB PO SCH (09:00)
[2016-11-22] MEDS: SUCRALFATE 1 GM TAB PO SCH ×4 (09:00→21:27)
[2016-11-22] MEDS: L ACIDOPHIL/B LACTIS/B LONGUM CAPSULE PO SCH ×2 (09:00→21:27)
[2016-11-22] MEDS: VANCOMYCIN 750 MG in SOD CHLORIDE 0.9% 150 ML IVPB SCH ×2 (11:10→22:12)
[2016-11-22] MEDS: EMTRICITABINE/TENOFOVIR TAB PO SCH (12:00)
[2016-11-22] MEDS: EFAVIRENZ 600 MG TAB PO SCH (12:00)
[2016-11-22] MEDS: VALGANCICLOVIR 450 MG TAB PO SCH ×2 (12:00→21:27)
--- NOTE | 2016-11-22 13:46 | PN ---
Date/Time of Note Date/Time of Note DATE: 11/22/16 TIME: 13:42 Assessment/Plan VTE Prophylaxis VTE Prophylaxis Intervention: contraindicated Lines/Catheters IV Catheter Type (from [facility]): PICC Line Central line still needed: Yes Urinary Cath still in place: Yes Reason Cath still needed: other (indicate) Assessment/Plan Chief Complaint/Hosp Course 1. Lower gastrointestinal bleeding. Status post upper and lower endoscopy on 11/13/2016 that showed severe ulcerative esophagitis and a universal ulcerative colitis. Continue management as per Gastroenterology. Continue Mesalamine and Protonix drip. 2. Severe anemia secondary to #1, status post PRBC and platelet transfusion. Continue to monitor H&H closely. Transfuse as needed. 3. Human immunodeficiency virus/acquired immunodeficiency syndrome. CD4 count less than 35. CD4 count 157. Continue HAART. 4. Deconditioning. Physical therapy. 5. Multiple chronic wounds that are infected. Continue antimicrobials as per Infectious Disease. 6. History of polysubstance abuse. 7. History of depression and post-traumatic stress disorder. Continue mood stabilizers. 8. Urinary tract infection with E. coli and Proteus mirabilis. Continue antibiotics as per Infectious Disease. 9. Severe protein calorie malnutrition. Continue protein supplements. 10. Right lower quadrant abdominal orifice draining clear fluid. General surgery consult has been called. Status post evaluation by wound care. 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 Urology has been consulted. CT scan of the abdomen and pelvis with contrast pending as per urology recommendations. 11. Fluid, electrolytes and nutrition. Regular diet. 12. Deep vein thrombosis prophylaxis. Bilateral sequential compression devices. 13. Gastrointestinal prophylaxis. Proton pump inhibitors. 14. Plan. Continue current management. Replete potassium. Await CT scan of the abdomen and pelvis. Transfuse blood products. Case discussed with Dr. Swanson. Problems: Subjective 24 Hr Interval Summary Free Text/Dictation Complains of abdominal discomfort from drinking oral contrast. Exam/Review of Systems Vital Signs Vitals Vital Signs Date Time Temp Pulse Resp B/P Pulse Ox O2 Delivery O2 Flow Rate FiO2 11/21/16 22:15 97.5 109 18 123/87 97 Intake and Output 11/21/16 11/21/16 11/22/16 15:00 23:00 07:00 Intake Total 750 ml 2205 ml 1250 ml Output Total 1200 ml 200 ml Balance 750 ml 1005 ml 1050 ml Exam GENERAL: This is a 41-year-old female who appears malnourished, lying in bed in no apparent distress. HEENT: Head normocephalic and atraumatic. Eyes: Anicteric sclerae. Conjunctivae clear. ENT: Nasal septum is midline. Oral mucosa is dry. NECK: Supple. No JVD noticed. RESPIRATORY: Bilaterally clear to auscultation. No adventitious breath sounds heard. No use of accessory muscles of respiration. CARDIAC: Regular rate and rhythm. No murmurs heard. ABDOMEN: Soft, nontender and nondistended. Bowel sounds positive in all 4 quadrants. Right lower quadrant drain in place. GENITOURINARY: Deferred. EXTREMITIES: No cyanosis, no clubbing. Bilateral lower extremity edema. Peripheral pulses palpable. NEUROLOGIC: The patient is awake, alert and oriented. Cranial nerves are grossly intact. Results Result Diagram: 11/22/16 0519 11/22/16 0519 Results 24 hrs Laboratory Tests Test 11/22/16 05:19 11/22/16 09:35 White Blood Count 4.6 L Red Blood Count 2.67 L Hemoglobin 7.4 L Hematocrit 22.9 L Mean Corpuscular Volume 85.8 Mean Corpuscular Hemoglobin 27.7 L Mean Corpuscular Hemoglobin Concent 32.3 Red Cell Distribution Width 16.8 H Platelet Count 180 Mean Platelet Volume 8.8 Neutrophils % 75.2 Lymphocytes % 17.3 Monocytes % 4.8 Eosinophils % 0.9 Basophils % 0.0 Nucleated Red Blood Cells % 0.0 Neutrophils # 3.4 Lymphocytes # 0.8 Monocytes # 0.2 L Eosinophils # 0.0 Basophils # 0.0 Nucleated Red Blood Cells # 0.0 Sodium Level 138 Potassium Level 3.1 L Chloride Level 115 H Carbon Dioxide Level 21 Anion Gap 5 L Blood Urea Nitrogen 5 L Creatinine 0.38 L Glucose Level 86 Calcium Level 6.8 L Phosphorus Level 2.6 Magnesium Level 1.7 Vancomycin Level Trough 14.5 Medications Medications Current Medications Ondansetron HCl (Zofran Inj) 4 mg Q6H PRN IV NAUSEA AND/OR VOMITING; Start at 16:00 Acetaminophen (Tylenol Tab) 650 mg Q6H PRN PO PAIN LEVEL 1-3 OR FEVER; Start at 16:00 Acetaminophen/ Hydrocodone Bitart ([place] (5/325)) 1 tab Q6H PRN PO MODERATE PAIN LEVEL 4-6 Last administered on 11/14/16 20:22; Admin Dose 1 TAB; Start at 16:00 Magnesium Hydroxide (Milk Of Mag) 30 ml DAILY PRN PO CONSTIPATION; Start at 16:00 Sodium Biphosphate/ Sodium Phosphate (Fleet Enema) 133 ml DAILY PRN [place] CONSTIPATION; Start 11/11/16 at 16:00 Lorazepam (Ativan) 0.5 mg Q6H PRN IV ANXIETY; Start 11/11/16 at 16:00 Hydralazine HCl (Apresoline) 10 mg Q6H PRN IV ELEVATED BLOOD PRESSURE; Start at 16:00 Nitroglycerin (Nitroglycerin (Sl Tab) 0.4 Mg) 1 tab Q5M PRN SL ANGINA Last administered on 11/11/16 23:25; Admin Dose 1 TAB; Start 11/11/16 at 16:00 Efavirenz (Sustiva) 600 mg DAILY PO Last administered on 11/21/16 09:19; Admin Dose 600 MG; Start 11/12/16 at 09:00 Emtricitabine/ Tenofovir (Truvada) 1 tab DAILY PO Last administered on 09:19; Admin Dose 1 TAB; Start 11/12/16 at 09:00 Sucralfate (Carafate) 1 gm QID PO Last administered on 11/21/16 21:51; Admin Dose 1 GM; Start 11/11/16 at 17:00 Valganciclovir (Valcyte) 450 mg Q12 PO Last administered on 11/21/16 21:51; Admin Dose 450 MG; Start 11/11/16 at 21:00 Collagenase (Santyl) 1 applic DAILY TOP Last administered on 11/21/16 09:32; Admin Dose 1 APPLIC; Start 11/12/16 at 13:00 Collagenase (Santyl) 1 applic PRN PRN TOP WOUND CARE; Start 11/12/16 at 12:00 Mesalamine (Delzicol Dr) 800 mg QID PO Last administered on 11/21/16 21:51; Admin Dose 800 MG; Start 11/12/16 at 21:00 Vancomycin HCl (Vancomycin Oral Syringe) 250 mg Q6 PO Last administered on 05:25; Admin Dose 250 MG; Start 11/12/16 at 19:30 Fluconazole (Diflucan) 100 mg DAILY PO Last administered on 11/21/16 09:19; Admin Dose 100 MG; Start 11/13/16 at 09:00 Metoclopramide HCl (Reglan) 10 mg Q6 IV Last administered on 11/22/16 05:25; Admin Dose 10 MG; Start 11/13/16 at 00:00 Lactobacillus Acidophilus (Florajen3 Capsule) 1 each BID PO Last administered on 11/21/16 21:51; Admin Dose 1 EACH; Start 11/13/16 at 21:00 Acetaminophen/ Hydrocodone Bitart ([place] (5/325)) 1 tab Q4H PRN PO severe pain Last administered on 11/14/16 08:32; Admin Dose 1 TAB; Start 11/13/16 at 20:30 Morphine Sulfate 2 mg 2 mg Q4H PRN IV SEVERE PAIN LEVEL 7-10 Last administered on 11/21/16 22:06; Admin Dose 2 MG; Start 11/14/16 at 14:15 Ertapenem 1 gm/ Sodium Chloride 100 ml @ 200 mls/hr Q24H IVPB Last administered on 11/21/16 13:54; Admin Dose 200 MLS/HR; Start 11/14/16 at 14:30 Dextrose/Sodium Chloride (D5-1/2ns) 1,000 ml @ 100 mls/hr Q10H IV Last administered on 11/22/16 04:21; Admin Dose 100 MLS/HR; Start 11/17/16 at 08:00 Docusate Sodium (Colace) 100 mg Q12 PO Last administered on 11/20/16 21:19; Admin Dose 100 MG; Start 11/17/16 at 11:00 Mirtazapine (Remeron) 7.5 mg HS PO Last administered on 11/21/16 21:52; Admin Dose 7.5 MG; Start 11/17/16 at 21:00 Pantoprazole 40 mg 40 mg BID@06,18 IV Last administered on 11/22/16 05:10; Admin Dose 40 MG; Start 11/19/16 at 18:00 Vancomycin HCl/ Sodium Chloride (Vancocin/NS) 150 ml @ 75 mls/hr Q12H IVPB Last administered on 11/22/16t 11:10; Admin Dose 75 MLS/HR; Start 11/20/16 at 22: 00 TK PERALES NP Nov 22, 2016 13:45
[2016-11-22] MEDS: ERTAPENEM SODIUM 1 GM in SOD CHLORIDE 0.9% 100 ML IVPB SCH (14:00)
[2016-11-22] MEDS ORDERED: IOHEXOL 300MG/ML 150 ML BTL ONE (14:50)
[2016-11-22] MEDS ORDERED: SOD CHLORIDE 0.9% 100 ML ONE (14:50)
--- NOTE | 2016-11-22 15:09 | CONS ---
Date/Time of Note Date/Time of Note DATE: 11/22/16 TIME: 15:07 Assessment/Plan Assessment/Plan Chief Complaint/Hosp Course SUBJECTIVE: No acute changes. The patient is alert, looks comfortable, no fevers. ANTIMICROBIALS: 1. Oral vancomycin. 2. IV vancomycin. 3. Invanz. 4. Fluconazole. 5. Sustiva. 6. Truvada. 7. Valcyte. PHYSICAL EXAMINATION: GENERAL: Chronically ill-appearing, wasted 41-year-old white woman who is in no distress. HEENT: Head atraumatic, normocephalic. Sclerae anicteric. Buccal mucosa dry. NECK: Supple, trachea midline. CHEST: Rise symmetrical. Breath sounds clear. HEART: S1, S2. ABDOMEN: Soft, bowel sounds present. EXTREMITIES: Without cyanosis. ASSESSMENT: 1. Aute anemia==> status post gastrointestinal bleeding with EGD and colonoscopy revealed severe ulcerative esophagitis and hemorrhoids==> ? pathology pending. 2. Polymicrobial urinary tract infection with urine culture on admission grew Escherichia coli and Proteus mirabilis. 3. Multiple chronic decubitus with wound culture growing Escherichia coli extended spectrum beta-lactamase, Enterococcus, and Proteus mirabilis. 4. Human immunodeficiency virus, last CD4 count in July 2016 392, remains on antiretrovirals. 5. History of Inocencia esophagitis. 6. Colitis as per CT of the abdomen. 7. Severe decompensated state. PLAN: The patient remains stable. Continue present care, antibiotics. Follow gastroenterology/surgical recommendations, continue local wound care. Pending repeat CT abdomen [facility] staff Problems: Consultation Date/Type/Reason Admit Date/Time November 11, 2016 at 15:19 Initial Consult Date 11/11/16 Type of Consultation: ID Referring Provider: JESUS RUIZ Exam/Review of Systems Vital Signs Vitals Vital Signs Date Time Temp Pulse Resp B/P Pulse Ox O2 Delivery O2 Flow Rate FiO2 11/21/16 22:15 97.5 109 18 123/87 97 Intake and Output 11/21/16 11/21/16 11/22/16 15:00 23:00 07:00 Intake Total 750 ml 2205 ml 1250 ml Output Total 1200 ml 200 ml Balance 750 ml 1005 ml 1050 ml Results Result Diagram: 11/22/16 0519 11/22/16 0519 Results 24 hrs Laboratory Tests Test 11/22/16 05:19 11/22/16 09:35 White Blood Count 4.6 L Red Blood Count 2.67 L Hemoglobin 7.4 L Hematocrit 22.9 L Mean Corpuscular Volume 85.8 Mean Corpuscular Hemoglobin 27.7 L Mean Corpuscular Hemoglobin Concent 32.3 Red Cell Distribution Width 16.8 H Platelet Count 180 Mean Platelet Volume 8.8 Neutrophils % 75.2 Lymphocytes % 17.3 Monocytes % 4.8 Eosinophils % 0.9 Basophils % 0.0 Nucleated Red Blood Cells % 0.0 Neutrophils # 3.4 Lymphocytes # 0.8 Monocytes # 0.2 L Eosinophils # 0.0 Basophils # 0.0 Nucleated Red Blood Cells # 0.0 Sodium Level 138 Potassium Level 3.1 L Chloride Level 115 H Carbon Dioxide Level 21 Anion Gap 5 L Blood Urea Nitrogen 5 L Creatinine 0.38 L Glucose Level 86 Calcium Level 6.8 L Phosphorus Level 2.6 Magnesium Level 1.7 Vancomycin Level Trough 14.5 Medications Medications Current Medications Ondansetron HCl (Zofran Inj) 4 mg Q6H PRN IV NAUSEA AND/OR VOMITING; Start at 16:00 Acetaminophen (Tylenol Tab) 650 mg Q6H PRN PO PAIN LEVEL 1-3 OR FEVER; Start at 16:00 Acetaminophen/ Hydrocodone Bitart ([place] (5/325)) 1 tab Q6H PRN PO MODERATE PAIN LEVEL 4-6 Last administered on 11/14/16 20:22; Admin Dose 1 TAB; Start at 16:00 Magnesium Hydroxide (Milk Of Mag) 30 ml DAILY PRN PO CONSTIPATION; Start at 16:00 Sodium Biphosphate/ Sodium Phosphate (Fleet Enema) 133 ml DAILY PRN [place] CONSTIPATION; Start 11/11/16 at 16:00 Lorazepam (Ativan) 0.5 mg Q6H PRN IV ANXIETY; Start 11/11/16 at 16:00 Hydralazine HCl (Apresoline) 10 mg Q6H PRN IV ELEVATED BLOOD PRESSURE; Start at 16:00 Nitroglycerin (Nitroglycerin (Sl Tab) 0.4 Mg) 1 tab Q5M PRN SL ANGINA Last administered on 11/11/16 23:25; Admin Dose 1 TAB; Start 11/11/16 at 16:00 Efavirenz (Sustiva) 600 mg DAILY PO Last administered on 11/21/16 09:19; Admin Dose 600 MG; Start 11/12/16 at 09:00 Emtricitabine/ Tenofovir (Truvada) 1 tab DAILY PO Last administered on 09:19; Admin Dose 1 TAB; Start 11/12/16 at 09:00 Sucralfate (Carafate) 1 gm QID PO Last administered on 11/21/16 21:51; Admin Dose 1 GM; Start 11/11/16 at 17:00 Valganciclovir (Valcyte) 450 mg Q12 PO Last administered on 11/21/16 21:51; Admin Dose 450 MG; Start 11/11/16 at 21:00 Collagenase (Santyl) 1 applic DAILY TOP Last administered on 11/21/16 09:32; Admin Dose 1 APPLIC; Start 11/12/16 at 13:00 Collagenase (Santyl) 1 applic PRN PRN TOP WOUND CARE; Start 11/12/16 at 12:00 Mesalamine (Delzicol Dr) 800 mg QID PO Last administered on 11/21/16 21:51; Admin Dose 800 MG; Start 11/12/16 at 21:00 Vancomycin HCl (Vancomycin Oral Syringe) 250 mg Q6 PO Last administered on 05:25; Admin Dose 250 MG; Start 11/12/16 at 19:30 Fluconazole (Diflucan) 100 mg DAILY PO Last administered on 11/21/16 09:19; Admin Dose 100 MG; Start 11/13/16 at 09:00 Metoclopramide HCl (Reglan) 10 mg Q6 IV Last administered on 11/22/16 05:25; Admin Dose 10 MG; Start 11/13/16 at 00:00 Lactobacillus Acidophilus (Florajen3 Capsule) 1 each BID PO Last administered on 11/21/16 21:51; Admin Dose 1 EACH; Start 11/13/16 at 21:00 Acetaminophen/ Hydrocodone Bitart ([place] (5/325)) 1 tab Q4H PRN PO severe pain Last administered on 11/14/16 08:32; Admin Dose 1 TAB; Start 11/13/16 at 20:30 Morphine Sulfate 2 mg 2 mg Q4H PRN IV SEVERE PAIN LEVEL 7-10 Last administered on 11/21/16 22:06; Admin Dose 2 MG; Start 11/14/16 at 14:15 Ertapenem 1 gm/ Sodium Chloride 100 ml @ 200 mls/hr Q24H IVPB Last administered on 11/21/16 13:54; Admin Dose 200 MLS/HR; Start 11/14/16 at 14:30 Dextrose/Sodium Chloride (D5-1/2ns) 1,000 ml @ 100 mls/hr Q10H IV Last administered on 11/22/16 04:21; Admin Dose 100 MLS/HR; Start 11/17/16 at 08:00 Docusate Sodium (Colace) 100 mg Q12 PO Last administered on 11/20/16 21:19; Admin Dose 100 MG; Start 11/17/16 at 11:00 Mirtazapine (Remeron) 7.5 mg HS PO Last administered on 11/21/16 21:52; Admin Dose 7.5 MG; Start 11/17/16 at 21:00 Pantoprazole 40 mg 40 mg BID@06,18 IV Last administered on 11/22/16 05:10; Admin Dose 40 MG; Start 11/19/16 at 18:00 Vancomycin HCl 750 mg/Sodium Chloride 150 ml @ 75 mls/hr Q12H IVPB Last administered on 11/22/16 11:10; Admin Dose 75 MLS/HR; Start 11/20/16 at 22:00 Potassium Chloride (KCl 40 MEQ/250 ML NS) 250 ml @ 62.5 mls/hr ONCE ONCE IVPB ; Start 11/22/16 at 15:30; Stop 11/22/16 at 19:29 AGUILA BURGOS NP Nov 22, 2016 15:09
[2016-11-22] MEDS ORDERED: POTASSIUM CHLORIDE 250 ML IVPB ONE (15:30)
--- NOTE | 2016-11-22 15:47 | RADRPT ---
PROCEDURE: CT abdomen and pelvis with contrast. CLINICAL INDICATION: abdominal pain TECHNIQUE: CT scan of the abdomen and pelvis with contrast was [facility] The patient was scanned after administration of 100 cc of Omnipaque-300 intravenous contrast. Oral contrast was also administered. Sagittal and coronal reformatted images were obtained from th e axial source images. DLP 224.4 mGycm. CTDIvol 4.2 mGy COMPARISON: None. FINDINGS: There are bilateral moderate layering effusions which cause compressive atelectasis of the lower randell gs bilaterally. Areas of nodular ground-glass opacities seen within the bilateral lower lobes in the lingula and right middle lobe. There is a moderate-sized hiatus hernia. There is borderline cardiomegaly with aortic and coronary artery atherosclerotic calcification. Cent ral line catheter is partially visualized. There is generalized pronounced anasarca of the soft tissues of the abdomen and pelvis. There is mi ld intra-abdominal ascites present. There is mild hepatomegaly of the liver with no evidence of enhancing lesion. There is no biliary ductal dilatation. The portal vein is intact without thrombus. The gallbladder is contracted. The spleen is normal in size and homogeneous in density. The pancreas is within normal limits witho ut focal lesion or surrounding inflammation. The adrenal glands are symmetric and normal. The kidneys enhance symmetrically without evidence of focal abnormality, inflammation, or hydroneph rosis. No renal calculus or obstructive uropathy or mass lesion is seen. The aorta is of normal caliber. There are no enlarged lymph nodes in the abdomen and pelvis. There is marked diffuse generalized wall thickening of the stomach, small bowel and large bowel with out evidence of focal area of inflammation. Fine detail of the bowel is limited secondary to simila r density of the edematous bowel wall with the adjacent fluid. Contrast is seen extending to the re ctum and there is no evidence of obstruction. The appendix is not visible. There is no extravasate d oral contrast with no evidence of free air. Mild degenerative changes are seen in the lumbar spine with no acute osseous abnormality. The uterus and adnexal structures are grossly unremarkable. A Hughes catheter seen in the bladder. IMPRESSION: There is pronounced anasarca of the abdomen and pelvis present with diffuse soft tissue thickening a nd bowel wall edema throughout the entirety of the stomach, small bowel and large bowel and this cou ld represent third spacing of fluid. Bilateral layering moderate sized effusions are present. Nodular areas of opacity in the lower lungs could represent areas of localized edema or infection. Hepatomegaly. Moderate hiatus hernia. RPTAT: AA .Fina Monson MD, MD Date Time Electronically viewed and signed by .Fina Monson MD, on 11/22/2016 15:47 .J/
[2016-11-22 19:00] VITALS: BP 132/97; PULSE 99; RESP 18
[2016-11-22 20:00] VITALS: BP 136/96; PULSE 99; RESP 19
[2016-11-22 21:00] VITALS: BP 144/89; PULSE 97; RESP 19
[2016-11-22] MEDS: MIRTAZAPINE 15 MG TAB PO SCH (21:27)
[2016-11-22 21:30] VITALS: BP 147/91; PULSE 107; RESP 19
[2016-11-22 22:30] VITALS: BP 140/90; PULSE 102; RESP 19
[2016-11-22 23:30] VITALS: BP 137/86; PULSE 98; RESP 18
--- NOTE | 2016-11-22 23:51 | PN ---
Date/Time of Note Date/Time of Note DATE: 11/22/16 TIME: 23:47 Assessment/Plan Lines/Catheters IV Catheter Type (from [facility]): PICC Line Hughes in Place (from [facility]): Yes Assessment/Plan Chief Complaint/Hosp Course 1. Right lower quadrant serous fluid leak through a pinpoint had possible previous site of femoral access attempts. Differential diagnosis includes peritoneal fluid versus urine versus other. CT noted. -Send fluid for evaluation including creatinine -Pressure dressing 2. Recent rectal bleeding with hemorrhagic shock & Anemia s/p transfusions -Monitor closely -PPIs and Carafate -Optimize medical status. 3. HIV positive -Continue medications 4. UTI with E. coli and Proteus -Antibiotics 5. Multiple chronic wounds -Local care -Nutrition optimization -Vitamin C 6. History of polysubstance abuse including tobacco -Encourage cessation 7. Psychiatric disorder with depression -Medical and psychiatric optimization 8. Severe protein calorie malnutrition and hypoalbuminemia -Encourage nutritional optimization Thank you, Problems: Subjective [address] noted. Continuous fluid leak from right lower quadrant. No fevers or chills. No nausea vomiting. No chest pain or shortness of breath. No cough. No seizure. No blood per mouth or rectum. No dysuria Exam/Review of Systems Vital Signs Vitals Vital Signs Date Time Temp Pulse Resp B/P Pulse Ox O2 Delivery O2 Flow Rate FiO2 11/22/16 21:30 98.5 107 19 147/91 97 Intake and Output 11/21/16 11/21/16 11/22/16 15:00 23:00 07:00 Intake Total 750 ml 2205 ml 1250 ml Output Total 1200 ml 200 ml Balance 750 ml 1005 ml 1050 ml Exam Free Text/Dictation Constitutional: alert, oriented, No distress Psych: nl mood/affect, No anxiety Head: atraumatic, normocephalic Eyes: EOMI, PERRL, nl conjunctiva ENMT: mucosa pink and moist, nl external ears & nose Neck: non-tender, supple Respiratory: normal air movement, No congested cough, No labored breathing Cardiovascular: No edema, No regular rate and rhythm Gastrointestinal: non-tender, soft, No rebound or guarding Musculoskeletal: nl extremities to inspection, No joint tenderness Extremities: normal pulses, No calf tenderness, No cyanosis Neurological: nl mental status, nl speech Skin: nl turgor, No diaphoresis, No rash or lesions Lymph: nl lymph nodes Results Free Text/Dictation CT: There is pronounced anasarca of the abdomen and pelvis present with diffuse soft tissue thickening and bowel wall edema throughout the entirety of the stomach, small bowel and large bowel and this could represent third spacing of fluid. Bilateral layering moderate sized effusions are present. Nodular areas of opacity in the lower lungs could represent areas of localized edema or infection. Hepatomegaly. Moderate hiatus hernia. Result Diagram: 11/22/16 0519 11/22/16 0519 GEMA HUITRON MD Nov 22, 2016 23:51
[2016-11-23] MEDS: VANCOMYCIN HCL 250 MG/5ML POSYG PO SCH ×4 (00:09→17:40)
[2016-11-23] MEDS: METOCLOPRAMIDE 10 MG INJ IV SCH ×4 (00:09→18:25)
[2016-11-23 05:19] LABS: ADD SCAN DIFF NO
[2016-11-23 05:26] LABS: BASOPHILS % 0.2 % (0.0-2.0); EOSINOPHILS # 0.1 10^3/ul (0.0-0.5); EOSINOPHILS % 1.6 % (0.0-7.0); HEMATOCRIT 27.5 % (37.0-47.0); HEMOGLOBIN 9.1 g/dl (12.0-16.0); LYMPHOCYTES # 0.8 10^3/ul (0.8-2.9); LYMPHOCYTES % 18.5 % (15.0-51.0); MEAN CORPUSCULAR HEMOGLOBIN 27.8 pg (29.0-33.0); MEAN CORPUSCULAR HGB CONC 33.1 g/dl (32.0-37.0); MEAN CORPUSCULAR VOLUME 84.1 fl (82.0-101.0); MEAN PLATELET VOLUME 9.2 fl (7.4-10.4); MONOCYTE # 0.2 10^3/ul (0.3-0.9); MONOCYTES % 4.6 % (0.0-11.0); NEUTROPHIL # 3.2 10^3/ul (1.6-7.5); NEUTROPHILS % 72.4 % (39.0-77.0); PLATELET COUNT 194 10^3/UL (140-415); RED BLOOD COUNT 3.27 10^6/ul (4.20-5.40); RED CELL DISTRIBUTION WIDTH 15.9 % (11.5-14.5); WHITE BLOOD COUNT 4.4 10^3/ul (4.8-10.8)
[2016-11-23 05:47] LABS: CALCIUM 7.2 mg/dl (8.4-10.2); CREATININE 0.38 mg/dl (0.44-1.00); POTASSIUM 3.4 mmol/L (3.5-5.1)
[2016-11-23] MEDS: PANTOPRAZOLE 40 MG INJ IV SCH ×2 (05:52→18:25)
[2016-11-23 06:00] LABS: MAGNESIUM 1.4 mg/dl (1.7-2.5); PHOSPHORUS 2.1 mg/dl (2.5-4.9)
[2016-11-23 07:25] VITALS: BP 135/92; RESP 16
[2016-11-23] MEDS: SUCRALFATE 1 GM TAB PO SCH ×4 (08:35→21:19)
[2016-11-23] MEDS: EMTRICITABINE/TENOFOVIR TAB PO SCH (08:35)
[2016-11-23] MEDS: EFAVIRENZ 600 MG TAB PO SCH (08:35)
[2016-11-23] MEDS: FLUCONAZOLE 100 MG TAB PO SCH (08:35)
[2016-11-23] MEDS: L ACIDOPHIL/B LACTIS/B LONGUM CAPSULE PO SCH ×2 (08:35→21:18)
[2016-11-23] MEDS: VALGANCICLOVIR 450 MG TAB PO SCH ×2 (08:35→21:18)
[2016-11-23] MEDS: DOCUSATE SODIUM 100 MG CAP PO SCH ×2 (08:36→21:18)
[2016-11-23] MEDS: MESALAMINE (EC) 400 MG CAP PO SCH ×4 (08:36→21:18)
--- NOTE | 2016-11-23 10:53 | PN ---
Date/Time of Note Date/Time of Note DATE: 11/23/16 TIME: 10:37 Assessment/Plan VTE Prophylaxis VTE Prophylaxis Intervention: SCD's Lines/Catheters IV [facility]ter Type (from [facility]): PICC Line Central line still needed: Yes Urinary Cath still in place: Yes Reason Cath still needed: other (indicate) (Monitor output) Assessment/Plan Assessment/Plan Assessment * Anemia EGD 11/12/2016 Severe ulcerated esophagitis/Inocencia esophagitis Colonoscopy 11/12/2016 Bernard ulcerative colitis. Moderate sized internal hemorrhoids * HIV disease. * Anasarca/small amount of ascites * Probably ascitic fluid leak right lower quadrant * Malnutrition * UTI * Polysubstance abuse * History of psychiatric illness Plan * Continue present management * Send fluid from right lower quadrant leak to lab Subjective 24 Hr Interval Summary Free Text/Dictation Course reviewed with RN Patient seen and examined No diarrhea nor abdominal pain Patient states she is hungry Minimal leakage from small wound in the right lower quadrant. CT findings reviewed Clinically no significant ascites to justify paracenteses EGD and colonoscopy pathology as follows Biopsy result A-Esophagus, biopsy: -- Inocencia esophagitis. -- Fungal yeast and pseudohyphae compatible with Inocencia species are identified in Alcian blue/PAS stain (positive control concurrently reviewed). -- No evidence of dysplasia or malignancy. B-Right colon, biopsy: -- Fragments of unremarkable colonic mucosa and separate fragment of ulcer debris. -- No evidence of viral cytopathic effect, granuloma, dysplasia or malignancy. C-Left colon, biopsy: -- Fragments of ulcer base with acute and chronic inflammation. -- No evidence of viral cytopathic effect, granuloma, dysplasia or malignancy. Exam/Review of Systems Vital Signs Vitals Vital Signs Date Time Temp Pulse Resp B/P Pulse Ox O2 Delivery O2 Flow Rate FiO2 11/23/16 07:25 97.5 98 16 135/92 100 11/22/16 23:30 Room Air Intake and Output 11/22/16 11/22/16 11/23/16 15:00 23:00 07:00 Intake Total 1900 ml 700 ml Output Total 1400 ml Balance 500 ml 700 ml Exam Constitutional: alert, frail, non-verbal Head: atraumatic, normocephalic Neck: non-tender, supple Respiratory: clear to auscultation, normal air movement Cardiovascular: nl pulses, regular rate and rhythm Gastrointestinal: ascites (Small amount), bowel sounds, distended (Minimally), other (Small wound the right lower quadrant with urostomy bag currently dry), soft, No mass, No rebound or guarding, No tender Musculoskeletal: nl extremities to inspection Skin: nl turgor, No rash or lesions Lymph: nl lymph nodes Results Result Diagram: 11/23/16 0454 11/23/16 0454 Results 24 hrs Laboratory Tests Test 11/23/16 04:54 11/23/16 06:31 White Blood Count 4.4 L Red Blood Count 3.27 #L Hemoglobin 9.1 #L Hematocrit 27.5 #L Mean Corpuscular Volume 84.1 Mean Corpuscular Hemoglobin 27.8 L Mean Corpuscular Hemoglobin Concent 33.1 Red Cell Distribution Width 15.9 H Platelet Count 194 Mean Platelet Volume 9.2 Neutrophils % 72.4 Lymphocytes % 18.5 Monocytes % 4.6 Eosinophils % 1.6 Basophils % 0.2 Nucleated Red Blood Cells % 0.0 Neutrophils # 3.2 Lymphocytes # 0.8 Monocytes # 0.2 L Eosinophils # 0.1 Basophils # 0.0 Nucleated Red Blood Cells # 0.0 Sodium Level 139 Potassium Level 3.4 L Chloride Level 115 H Carbon Dioxide Level 23 Anion Gap 4 L Blood Urea Nitrogen 5 L Creatinine 0.38 L Glucose Level 84 Calcium Level 7.2 L Phosphorus Level 2.1 L Magnesium Level 1.4 L Lab Scanned Report BLOOD TRANSFUSION Medications Medications Current Medications Ondansetron HCl (Zofran Inj) 4 mg Q6H PRN IV NAUSEA AND/OR VOMITING; Start at 16:00 Acetaminophen (Tylenol Tab) 650 mg Q6H PRN PO PAIN LEVEL 1-3 OR FEVER; Start at 16:00 Acetaminophen/ Hydrocodone Bitart ([place] (5/325)) 1 tab Q6H PRN PO MODERATE PAIN LEVEL 4-6 Last administered on 11/14/16t 20:22; Admin Dose 1 TAB; Start at 16:00 Magnesium Hydroxide (Milk Of Mag) 30 ml DAILY PRN PO CONSTIPATION; Start at 16:00 Sodium Biphosphate/ Sodium Phosphate (Fleet Enema) 133 ml DAILY PRN [place] CONSTIPATION; Start 11/11/16 at 16:00 Lorazepam (Ativan) 0.5 mg Q6H PRN IV ANXIETY; Start 11/11/16 at 16:00 Hydralazine HCl (Apresoline) 10 mg Q6H PRN IV ELEVATED BLOOD PRESSURE; Start at 16:00 Nitroglycerin (Nitroglycerin (Sl Tab) 0.4 Mg) 1 tab Q5M PRN SL ANGINA Last administered on 11/11/16 23:25; Admin Dose 1 TAB; Start 11/11/16 at 16:00 Efavirenz (Sustiva) 600 mg DAILY PO Last administered on 11/23/16 08:35; Admin Dose 600 MG; Start 11/12/16 at 09:00 Emtricitabine/ Tenofovir (Truvada) 1 tab DAILY PO Last administered on 08:35; Admin Dose 1 TAB; Start 11/12/16 at 09:00 Sucralfate (Carafate) 1 gm QID PO Last administered on 11/23/16 08:35; Admin Dose 1 GM; Start 11/11/16 at 17:00 Valganciclovir (Valcyte) 450 mg Q12 PO Last administered on 11/23/16 08:35; Admin Dose 450 MG; Start 11/11/16 at 21:00 Collagenase (Santyl) 1 applic DAILY TOP Last administered on 11/22/16 08:30; Admin Dose 1 APPLIC; Start 11/12/16 at 13:00 Collagenase (Santyl) 1 applic PRN PRN TOP WOUND CARE; Start 11/12/16 at 12:00 Mesalamine (Delzicol Dr) 800 mg QID PO Last administered on 11/23/16 08:36; Admin Dose 800 MG; Start 11/12/16 at 21:00 Vancomycin HCl (Vancomycin Oral Syringe) 250 mg Q6 PO Last administered on 05:52; Admin Dose 250 MG; Start 11/12/16 at 19:30 Fluconazole (Diflucan) 100 mg DAILY PO Last administered on 11/23/16 08:35; Admin Dose 100 MG; Start 11/13/16 at 09:00 Metoclopramide HCl (Reglan) 10 mg Q6 IV Last administered on 11/23/16 05:52; Admin Dose 10 MG; Start 11/13/16 at 00:00 Lactobacillus Acidophilus (Florajen3 Capsule) 1 each BID PO Last administered on 11/23/16 08:35; Admin Dose 1 EACH; Start 11/13/16 at 21:00 Acetaminophen/ Hydrocodone Bitart ([place] (5/325)) 1 tab Q4H PRN PO severe pain Last administered on 11/14/16 08:32; Admin Dose 1 TAB; Start 11/13/16 at 20:30 Morphine Sulfate 2 mg 2 mg Q4H PRN IV SEVERE PAIN LEVEL 7-10 Last administered on 11/21/16 22:06; Admin Dose 2 MG; Start 11/14/16 at 14:15 Ertapenem 1 gm/ Sodium Chloride 100 ml @ 200 mls/hr Q24H IVPB Last administered on 11/22/16 14:00; Admin Dose 200 MLS/HR; Start 11/14/16 at 14:30 Dextrose/Sodium Chloride (D5-1/2ns) 1,000 ml @ 100 mls/hr Q10H IV Last administered on 11/22/16 21:44; Admin Dose 100 MLS/HR; Start 11/17/16 at 08:00 Docusate Sodium (Colace) 100 mg Q12 PO Last administered on 11/22/16 21:27; Admin Dose 100 MG; Start 11/17/16 at 11:00 Mirtazapine (Remeron) 7.5 mg HS PO Last administered on 11/22/16 21:27; Admin Dose 7.5 MG; Start 11/17/16 at 21:00 Pantoprazole 40 mg 40 mg BID@06,18 IV Last administered on 11/23/16 05:52; Admin Dose 40 MG; Start 11/19/16 at 18:00 Vancomycin HCl/ Sodium Chloride (Vancocin/NS) 150 ml @ 75 mls/hr Q12H IVPB Last administered on 11/22/16 22:12; Admin Dose 75 MLS/HR; Start 11/20/16 at 22: 00 LM LAMB MD Nov 23, 2016 10:49
[2016-11-23] MEDS: VANCOMYCIN 750 MG in SOD CHLORIDE 0.9% 150 ML IVPB SCH ×2 (11:00→22:00)
[2016-11-23] MEDS: DEXTROSE 5%-0.45% NACL 1,000 ML IV SCH (13:00)
--- NOTE | 2016-11-23 13:47 | PN ---
Date/Time of Note Date/Time of Note DATE: 11/23/16 TIME: 13:46 Assessment/Plan Lines/Catheters IV Catheter Type (from [facility]): PICC Line Hughes in Place (from [facility]): Yes Assessment/Plan Chief Complaint/Hosp Course 1. Right lower quadrant serous fluid leak through a pinpoint had possible previous site of femoral access attempts. Differential diagnosis includes peritoneal fluid versus urine versus other. CT noted. -Pressure dressing 2. Recent rectal bleeding with hemorrhagic shock & Anemia s/p transfusions -Monitor closely -PPIs and Carafate -Optimize medical status. 3. HIV positive -Continue medications 4. UTI with E. coli and Proteus -Antibiotics 5. Multiple chronic wounds -Local care -Nutrition optimization -Vitamin C 6. History of polysubstance abuse including tobacco -Encourage cessation 7. Psychiatric disorder with depression -Medical and psychiatric optimization 8. Severe protein calorie malnutrition and hypoalbuminemia -Encourage nutritional optimization Thank you, Problems: Subjective [address] noted. Continuous fluid leak from right lower quadrant. No fevers or chills. No nausea vomiting. No chest pain or shortness of breath. No cough. No seizure. No blood per mouth or rectum. No dysuria Exam/Review of Systems Vital Signs Vitals Vital Signs Date Time Temp Pulse Resp B/P Pulse Ox O2 Delivery O2 Flow Rate FiO2 11/23/16 07:25 97.5 98 16 135/92 100 11/22/16 23:30 Room Air Intake and Output 11/22/16 11/22/16 11/23/16 15:00 23:00 07:00 Intake Total 1900 ml 700 ml Output Total 1400 ml Balance 500 ml 700 ml Exam Free Text/Dictation Constitutional: alert, oriented, No distress Psych: nl mood/affect, No anxiety Head: atraumatic, normocephalic Eyes: EOMI, PERRL, nl conjunctiva ENMT: mucosa pink and moist, nl external ears & nose Neck: non-tender, supple Respiratory: normal air movement, No congested cough, No labored breathing Cardiovascular: No edema, No regular rate and rhythm Gastrointestinal: non-tender, soft, No rebound or guarding Musculoskeletal: nl extremities to inspection, No joint tenderness Extremities: normal pulses, No calf tenderness, No cyanosis Neurological: nl mental status, nl speech Skin: nl turgor, No diaphoresis, No rash or lesions Lymph: nl lymph nodes Results Result Diagram: 11/23/16 0454 11/23/16 0454 GEMA HUITRON MD Nov 23, 2016 13:47
--- NOTE | 2016-11-23 15:15 | CONS ---
Date/Time of Note Date/Time of Note DATE: 11/23/16 TIME: 15:14 Assessment/Plan Assessment/Plan Chief Complaint/Hosp Course SUBJECTIVE: No acute changes. The patient is alert, looks comfortable, no fevers. ANTIMICROBIALS: 1. Oral vancomycin. 2. IV vancomycin. 3. Invanz. 4. Fluconazole. 5. Sustiva. 6. Truvada. 7. Valcyte. PHYSICAL EXAMINATION: GENERAL: Chronically ill-appearing, wasted 41-year-old white woman who is in no distress. HEENT: Head atraumatic, normocephalic. Sclerae anicteric. Buccal mucosa dry. NECK: Supple, trachea midline. CHEST: Rise symmetrical. Breath sounds clear. HEART: S1, S2. ABDOMEN: Soft, bowel sounds present. EXTREMITIES: Without cyanosis. ASSESSMENT: 1. Aute anemia==> status post gastrointestinal bleeding with EGD and colonoscopy revealed severe ulcerative esophagitis and hemorrhoids==> ? pathology pending. 2. Polymicrobial urinary tract infection with urine culture on admission grew Escherichia coli and Proteus mirabilis. 3. Multiple chronic decubitus with wound culture growing Escherichia coli extended spectrum beta-lactamase, Enterococcus, and Proteus mirabilis. 4. Human immunodeficiency virus, last CD4 count in July 2016 392, remains on antiretrovirals. 5. History of Inocencia esophagitis. 6. Colitis as per CT of the abdomen. 7. Severe decompensated state. PLAN: The patient remains stable. Continue present care, complete antibiotics for couple more days. Follow gastroenterology/surgical recommendations, staff Problems: Consultation Date/Type/Reason Admit Date/Time November 11, 2016 at 15:19 Initial Consult Date 11/11/16 Type of Consultation: ID Referring Provider: JESUS RUIZ Exam/Review of Systems Vital Signs Vitals Vital Signs Date Time Temp Pulse Resp B/P Pulse Ox O2 Delivery O2 Flow Rate FiO2 11/23/16 07:25 97.5 98 16 135/92 100 11/22/16 23:30 Room Air Intake and Output 11/22/16 11/22/16 11/23/16 14:59 22:59 06:59 Intake Total 1900 ml 700 ml Output Total 1400 ml Balance 500 ml 700 ml Results Result Diagram: 11/23/16 0454 11/23/16 0454 Results 24 hrs Laboratory Tests Test 11/23/16 04:54 11/23/16 06:31 White Blood Count 4.4 L Red Blood Count 3.27 #L Hemoglobin 9.1 #L Hematocrit 27.5 #L Mean Corpuscular Volume 84.1 Mean Corpuscular Hemoglobin 27.8 L Mean Corpuscular Hemoglobin Concent 33.1 Red Cell Distribution Width 15.9 H Platelet Count 194 Mean Platelet Volume 9.2 Neutrophils % 72.4 Lymphocytes % 18.5 Monocytes % 4.6 Eosinophils % 1.6 Basophils % 0.2 Nucleated Red Blood Cells % 0.0 Neutrophils # 3.2 Lymphocytes # 0.8 Monocytes # 0.2 L Eosinophils # 0.1 Basophils # 0.0 Nucleated Red Blood Cells # 0.0 Sodium Level 139 Potassium Level 3.4 L Chloride Level 115 H Carbon Dioxide Level 23 Anion Gap 4 L Blood Urea Nitrogen 5 L Creatinine 0.38 L Glucose Level 84 Calcium Level 7.2 L Phosphorus Level 2.1 L Magnesium Level 1.4 L Lab Scanned Report BLOOD TRANSFUSION Medications Medications Current Medications Ondansetron HCl (Zofran Inj) 4 mg Q6H PRN IV NAUSEA AND/OR VOMITING; Start at 16:00 Acetaminophen (Tylenol Tab) 650 mg Q6H PRN PO PAIN LEVEL 1-3 OR FEVER; Start at 16:00 Acetaminophen/ Hydrocodone Bitart ([place] (5/325)) 1 tab Q6H PRN PO MODERATE PAIN LEVEL 4-6 Last administered on 11/14/16 20:22; Admin Dose 1 TAB; Start at 16:00 Magnesium Hydroxide (Milk Of Mag) 30 ml DAILY PRN PO CONSTIPATION; Start at 16:00 Sodium Biphosphate/ Sodium Phosphate (Fleet Enema) 133 ml DAILY PRN [place] CONSTIPATION; Start 11/11/16 at 16:00 Lorazepam (Ativan) 0.5 mg Q6H PRN IV ANXIETY; Start 11/11/16 at 16:00 Hydralazine HCl (Apresoline) 10 mg Q6H PRN IV ELEVATED BLOOD PRESSURE; Start at 16:00 Nitroglycerin (Nitroglycerin (Sl Tab) 0.4 Mg) 1 tab Q5M PRN SL ANGINA Last administered on 11/11/16 23:25; Admin Dose 1 TAB; Start 11/11/16 at 16:00 Efavirenz (Sustiva) 600 mg DAILY PO Last administered on 11/23/16 08:35; Admin Dose 600 MG; Start 11/12/16 at 09:00 Emtricitabine/ Tenofovir (Truvada) 1 tab DAILY PO Last administered on 08:35; Admin Dose 1 TAB; Start 11/12/16 at 09:00 Sucralfate (Carafate) 1 gm QID PO Last administered on 11/23/16 08:35; Admin Dose 1 GM; Start 11/11/16 at 17:00 Valganciclovir (Valcyte) 450 mg Q12 PO Last administered on 11/23/16 08:35; Admin Dose 450 MG; Start 11/11/16 at 21:00 Collagenase (Santyl) 1 applic DAILY TOP Last administered on 11/22/16 08:30; Admin Dose 1 APPLIC; Start 11/12/16 at 13:00 Collagenase (Santyl) 1 applic PRN PRN TOP WOUND CARE; Start 11/12/16 at 12:00 Mesalamine (Delzicol Dr) 800 mg QID PO Last administered on 11/23/16 08:36; Admin Dose 800 MG; Start 11/12/16 at 21:00 Vancomycin HCl (Vancomycin Oral Syringe) 250 mg Q6 PO Last administered on 05:52; Admin Dose 250 MG; Start 11/12/16 at 19:30 Fluconazole (Diflucan) 100 mg DAILY PO Last administered on 11/23/16 08:35; Admin Dose 100 MG; Start 11/13/16 at 09:00 Metoclopramide HCl (Reglan) 10 mg Q6 IV Last administered on 11/23/16 12:39; Admin Dose 10 MG; Start 11/13/16 at 00:00 Lactobacillus Acidophilus (Florajen3 Capsule) 1 each BID PO Last administered on 11/23/16 08:35; Admin Dose 1 EACH; Start 11/13/16 at 21:00 Acetaminophen/ Hydrocodone Bitart ([place] (5/325)) 1 tab Q4H PRN PO severe pain Last administered on 11/14/16 08:32; Admin Dose 1 TAB; Start 11/13/16 at 20:30 Morphine Sulfate 2 mg 2 mg Q4H PRN IV SEVERE PAIN LEVEL 7-10 Last administered on 11/21/16 22:06; Admin Dose 2 MG; Start 11/14/16 at 14:15 Ertapenem 1 gm/ Sodium Chloride 100 ml @ 200 mls/hr Q24H IVPB Last administered on 11/22/16 14:00; Admin Dose 200 MLS/HR; Start 11/14/16 at 14:30 Dextrose/Sodium Chloride (D5-1/2ns) 1,000 ml @ 100 mls/hr Q10H IV Last administered on 11/22/16 21:44; Admin Dose 100 MLS/HR; Start 11/17/16 at 08:00 Docusate Sodium (Colace) 100 mg Q12 PO Last administered on 11/22/16 21:27; Admin Dose 100 MG; Start 11/17/16 at 11:00 Mirtazapine (Remeron) 7.5 mg HS PO Last administered on 11/22/16 21:27; Admin Dose 7.5 MG; Start 11/17/16 at 21:00 Pantoprazole 40 mg 40 mg BID@06,18 IV Last administered on 11/23/16 05:52; Admin Dose 40 MG; Start 11/19/16 at 18:00 Vancomycin HCl/ Sodium Chloride (Vancocin/NS) 150 ml @ 75 mls/hr Q12H IVPB Last administered on 11/23/16 11:00; Admin Dose 75 MLS/HR; Start 11/20/16 at 22: 00 AGUILA BURGOS NP Nov 23, 2016 15:15
[2016-11-23] MEDS: ERTAPENEM SODIUM 1 GM in SOD CHLORIDE 0.9% 100 ML IVPB SCH (15:30)
[2016-11-23] MEDS: COLLAGENASE 30 GM TUBE TOP SCH (16:00)
--- NOTE | 2016-11-23 16:52 | PN ---
Date/Time of Note Date/Time of Note DATE: 11/23/16 TIME: 16:48 Assessment/Plan VTE Prophylaxis VTE Prophylaxis Intervention: SCD's Lines/Catheters IV C[facility]ter Type ([facility] PICC Line Central line still needed: Yes Urinary Cath still in place: Yes Reason Cath still needed: other (indicate) Assessment/Plan Chief Complaint/Hosp Course 1. Lower gastrointestinal bleeding. Status post upper and lower endoscopy on 11/13/2016 that showed severe ulcerative esophagitis and a universal ulcerative colitis. Continue management as per Gastroenterology. Continue Mesalamine and Protonix drip. 2. Severe anemia secondary to #1, status post PRBC and platelet transfusion. Continue to monitor H&H closely. Transfuse as needed. 3. Human immunodeficiency virus/acquired immunodeficiency syndrome. CD4 count less than 35. CD4 count 157. Continue HAART. 4. Deconditioning. Physical therapy. 5. Multiple chronic wounds that are infected. Continue antimicrobials as per Infectious Disease. 6. History of polysubstance abuse. 7. History of depression and post-traumatic stress disorder. Continue mood stabilizers. 8. Urinary tract infection with E. coli and Proteus mirabilis. Continue antibiotics as per Infectious Disease. 9. Severe protein calorie malnutrition. Continue protein supplements. 10. Right lower quadrant abdominal orifice draining clear fluid. General surgery consult has been called. Status post evaluation by wound care. 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 Urology has been consulted. CT scan of the abdomen and pelvis with contrast was done as per urology recommendations. CT scan showed pronounced anasarca of the abdomen and pelvis present with diffuse soft tissue thickening and bowel wall edema throughout the entirety of the stomach, small bowel and large bowel. 11. Fluid, electrolytes and nutrition. Regular diet. 12. Deep vein thrombosis prophylaxis. Bilateral sequential compression devices. 13. Gastrointestinal prophylaxis. Proton pump inhibitors. 14. Plan. Continue current management. Replete potassium and magnesium. Await further recommendations from consultants. Case discussed with Dr. Swanson. Problems: Subjective 24 Hr Interval Summary Free Text/Dictation Patient asking that when can she go home. Remains afebrile. Exam/Review of Systems Vital Signs Vitals Vital Signs Date Time Temp Pulse Resp B/P Pulse Ox O2 Delivery O2 Flow Rate FiO2 11/23/16 07:25 97.5 98 16 135/92 100 11/22/16 23:30 Room Air Intake and Output 11/22/16 11/22/16 11/23/16 15:00 23:00 07:00 Intake Total 1900 ml 700 ml Output Total 1400 ml Balance 500 ml 700 ml Exam GENERAL: This is a 41-year-old female who appears malnourished, lying in bed in no apparent distress. HEENT: Head normocephalic and atraumatic. Eyes: Anicteric sclerae. Conjunctivae clear. ENT: Nasal septum is midline. Oral mucosa is dry. NECK: Supple. No JVD noticed. RESPIRATORY: Bilaterally clear to auscultation. No adventitious breath sounds heard. No use of accessory muscles of respiration. CARDIAC: Regular rate and rhythm. No murmurs heard. ABDOMEN: Soft, nontender and nondistended. Bowel sounds positive in all 4 quadrants. Right lower quadrant drain in place. GENITOURINARY: Deferred. EXTREMITIES: No cyanosis, no clubbing. Bilateral lower extremity edema. Peripheral pulses palpable. NEUROLOGIC: The patient is awake, alert and oriented. Cranial nerves are grossly intact. Results Result Diagram: 11/23/16 0454 11/23/16 0454 Results 24 hrs Laboratory Tests Test 11/23/16 04:54 11/23/16 06:31 White Blood Count 4.4 L Red Blood Count 3.27 #L Hemoglobin 9.1 #L Hematocrit 27.5 #L Mean Corpuscular Volume 84.1 Mean Corpuscular Hemoglobin 27.8 L Mean Corpuscular Hemoglobin Concent 33.1 Red Cell Distribution Width 15.9 H Platelet Count 194 Mean Platelet Volume 9.2 Neutrophils % 72.4 Lymphocytes % 18.5 Monocytes % 4.6 Eosinophils % 1.6 Basophils % 0.2 Nucleated Red Blood Cells % 0.0 Neutrophils # 3.2 Lymphocytes # 0.8 Monocytes # 0.2 L Eosinophils # 0.1 Basophils # 0.0 Nucleated Red Blood Cells # 0.0 Sodium Level 139 Potassium Level 3.4 L Chloride Level 115 H Carbon Dioxide Level 23 Anion Gap 4 L Blood Urea Nitrogen 5 L Creatinine 0.38 L Glucose Level 84 Calcium Level 7.2 L Phosphorus Level 2.1 L Magnesium Level 1.4 L Lab Scanned Report BLOOD TRANSFUSION Medications Medications Current Medications Ondansetron HCl (Zofran Inj) 4 mg Q6H PRN IV NAUSEA AND/OR VOMITING; Start at 16:00 Acetaminophen (Tylenol Tab) 650 mg Q6H PRN PO PAIN LEVEL 1-3 OR FEVER; Start at 16:00 Acetaminophen/ Hydrocodone Bitart ([place] (5/325)) 1 tab Q6H PRN PO MODERATE PAIN LEVEL 4-6 Last administered on 11/14/16 20:22; Admin Dose 1 TAB; Start at 16:00 Magnesium Hydroxide (Milk Of Mag) 30 ml DAILY PRN PO CONSTIPATION; Start at 16:00 Sodium Biphosphate/ Sodium Phosphate (Fleet Enema) 133 ml DAILY PRN [place] CONSTIPATION; Start 11/11/16 at 16:00 Lorazepam (Ativan) 0.5 mg Q6H PRN IV ANXIETY; Start 11/11/16 at 16:00 Hydralazine HCl (Apresoline) 10 mg Q6H PRN IV ELEVATED BLOOD PRESSURE; Start at 16:00 Nitroglycerin (Nitroglycerin (Sl Tab) 0.4 Mg) 1 tab Q5M PRN SL ANGINA Last administered on 11/11/16 23:25; Admin Dose 1 TAB; Start 11/11/16 at 16:00 Efavirenz (Sustiva) 600 mg DAILY PO Last administered on 11/23/16 08:35; Admin Dose 600 MG; Start 11/12/16 at 09:00 Emtricitabine/ Tenofovir (Truvada) 1 tab DAILY PO Last administered on 08:35; Admin Dose 1 TAB; Start 11/12/16 at 09:00 Sucralfate (Carafate) 1 gm QID PO Last administered on 11/23/16 08:35; Admin Dose 1 GM; Start 11/11/16 at 17:00 Valganciclovir (Valcyte) 450 mg Q12 PO Last administered on 11/23/16 08:35; Admin Dose 450 MG; Start 11/11/16 at 21:00 Collagenase (Santyl) 1 applic DAILY TOP Last administered on 11/23/16 16:00; Admin Dose 1 APPLIC; Start 11/12/16 at 13:00 Collagenase (Santyl) 1 applic PRN PRN TOP WOUND CARE; Start 11/12/16 at 12:00 Mesalamine (Delzicol Dr) 800 mg QID PO Last administered on 11/23/16 08:36; Admin Dose 800 MG; Start 11/12/16 at 21:00 Vancomycin HCl (Vancomycin Oral Syringe) 250 mg Q6 PO Last administered on 05:52; Admin Dose 250 MG; Start 11/12/16 at 19:30 Fluconazole (Diflucan) 100 mg DAILY PO Last administered on 11/23/16 08:35; Admin Dose 100 MG; Start 11/13/16 at 09:00 Metoclopramide HCl (Reglan) 10 mg Q6 IV Last administered on 11/23/16 12:39; Admin Dose 10 MG; Start 11/13/16 at 00:00 Lactobacillus Acidophilus (Florajen3 Capsule) 1 each BID PO Last administered on 11/23/16 08:35; Admin Dose 1 EACH; Start 11/13/16 at 21:00 Acetaminophen/ Hydrocodone Bitart ([place] (5/325)) 1 tab Q4H PRN PO severe pain Last administered on 11/14/16 08:32; Admin Dose 1 TAB; Start 11/13/16 at 20:30 Morphine Sulfate 2 mg 2 mg Q4H PRN IV SEVERE PAIN LEVEL 7-10 Last administered on 11/21/16 22:06; Admin Dose 2 MG; Start 11/14/16 at 14:15 Ertapenem 1 gm/ Sodium Chloride 100 ml @ 200 mls/hr Q24H IVPB Last administered on 11/23/16 15:30; Admin Dose 200 MLS/HR; Start 11/14/16 at 14:30 Dextrose/Sodium Chloride (D5-1/2ns) 1,000 ml @ 100 mls/hr Q10H IV Last administered on 11/23/16 13:00; Admin Dose 100 MLS/HR; Start 11/17/16 at 08:00 Docusate Sodium (Colace) 100 mg Q12 PO Last administered on 11/22/16 21:27; Admin Dose 100 MG; Start 11/17/16 at 11:00 Mirtazapine (Remeron) 7.5 mg HS PO Last administered on 11/22/16 21:27; Admin Dose 7.5 MG; Start 11/17/16 at 21:00 Pantoprazole 40 mg 40 mg BID@06,18 IV Last administered on 11/23/16 05:52; Admin Dose 40 MG; Start 11/19/16 at 18:00 Vancomycin HCl/ Sodium Chloride (Vancocin/NS) 150 ml @ 75 mls/hr Q12H IVPB Last administered on 11/23/16 11:00; Admin Dose 75 MLS/HR; Start 11/20/16 at 22: 00 TK PERALES NP Nov 23, 2016 16:52
[2016-11-23] MEDS ORDERED: MAGNESIUM SULFATE 2 GM/50 ML 50 ML IVPB ONE (18:30)
[2016-11-23] MEDS ORDERED: POTASSIUM CHLORIDE 20 MEQ in SOD CHLORIDE 0.9% 100 ML IVPB ONE (18:30)
[2016-11-23 20:31] VITALS: BP 139/91; RESP 20
[2016-11-23] MEDS: MIRTAZAPINE 15 MG TAB PO SCH (21:17)
[2016-11-23] MEDS: morphine 4 MG/ML VIAL IV PRN (21:53)
[2016-11-24] MEDS: METOCLOPRAMIDE 10 MG INJ IV SCH ×4 (00:07→18:03)
[2016-11-24] MEDS: VANCOMYCIN HCL 250 MG/5ML POSYG PO SCH ×4 (00:07→18:03)
[2016-11-24] MEDS: DEXTROSE 5%-0.45% NACL 1,000 ML IV SCH ×3 (00:11→20:49)
[2016-11-24] MEDS: PANTOPRAZOLE 40 MG INJ IV SCH ×2 (05:46→18:03)
[2016-11-24 05:58] LABS: ADD SCAN DIFF NO
[2016-11-24 06:10] LABS: BASOPHILS % 0.5 % (0.0-2.0); EOSINOPHILS # 0.1 10^3/ul (0.0-0.5); EOSINOPHILS % 1.7 % (0.0-7.0); HEMATOCRIT 27.7 % (37.0-47.0); HEMOGLOBIN 8.9 g/dl (12.0-16.0); LYMPHOCYTES # 0.9 10^3/ul (0.8-2.9); LYMPHOCYTES % 21.1 % (15.0-51.0); MEAN CORPUSCULAR HEMOGLOBIN 27.1 pg (29.0-33.0); MEAN CORPUSCULAR HGB CONC 32.1 g/dl (32.0-37.0); MEAN CORPUSCULAR VOLUME 84.5 fl (82.0-101.0); MEAN PLATELET VOLUME 9.1 fl (7.4-10.4); MONOCYTE # 0.2 10^3/ul (0.3-0.9); MONOCYTES % 4.8 % (0.0-11.0); NEUTROPHIL # 2.9 10^3/ul (1.6-7.5); PLATELET COUNT 196 10^3/UL (140-415); RED BLOOD COUNT 3.28 10^6/ul (4.20-5.40); RED CELL DISTRIBUTION WIDTH 15.8 % (11.5-14.5); WHITE BLOOD COUNT 4.2 10^3/ul (4.8-10.8)
[2016-11-24 06:38] LABS: CREATININE 0.38 mg/dl (0.44-1.00); MAGNESIUM 1.7 mg/dl (1.7-2.5); PHOSPHORUS 2.5 mg/dl (2.5-4.9)
[2016-11-24 06:50] LABS: POTASSIUM 2.9 mmol/L (3.5-5.1)
[2016-11-24 07:47] VITALS: BP 137/83; RESP 20
[2016-11-24] MEDS: SUCRALFATE 1 GM TAB PO SCH ×4 (09:00→20:38)
[2016-11-24] MEDS: MESALAMINE (EC) 400 MG CAP PO SCH ×4 (09:00→20:43)
[2016-11-24] MEDS: POTASSIUM CHLORIDE (SR) 20 MEQ TAB PO SCH ×2 (09:41→13:00)
[2016-11-24] MEDS: VANCOMYCIN 750 MG in SOD CHLORIDE 0.9% 150 ML IVPB SCH (09:42)
[2016-11-24] MEDS: COLLAGENASE 30 GM TUBE TOP SCH (10:01)
[2016-11-24] MEDS: DOCUSATE SODIUM 100 MG CAP PO SCH ×2 (12:44→20:38)
[2016-11-24] MEDS: L ACIDOPHIL/B LACTIS/B LONGUM CAPSULE PO SCH ×2 (12:45→20:38)
[2016-11-24] MEDS: VALGANCICLOVIR 450 MG TAB PO SCH ×2 (12:45→20:39)
[2016-11-24] MEDS: FLUCONAZOLE 100 MG TAB PO SCH (12:45)
[2016-11-24] MEDS: EMTRICITABINE/TENOFOVIR TAB PO SCH (12:46)
[2016-11-24] MEDS: EFAVIRENZ 600 MG TAB PO SCH (12:46)
--- NOTE | 2016-11-24 13:26 | PN ---
Date/Time of Note Date/Time of Note DATE: 11/24/16 TIME: 13:19 Assessment/Plan VTE Prophylaxis VTE Prophylaxis Intervention: contraindicated VTE Contraindication Reason: bleeding Lines/Catheters IV Catheter Type (from Nrs): PICC Line Central line still needed: Yes Urinary Cath still in place: Yes Reason Cath still needed: pres ulcer contaminated by urine, skin wounds contaminated by urine Assessment/Plan Chief Complaint/Hosp Course Subjective: Feels good. Tolerating diet. No nausea vomiting diarrhea. No further incontinence apparently. Still requiring care for ascitic fluid leak. Objective: Vital signs stable Physical examination No pallor Regular Clear Bs diminished/ present; appears mildly distended, nt. No r/r/g No edema; hypotonia noted Assessment and plan 1. Shock,hemorrhagic, resolved. Stable. 2. Acute blood loss anemia secondary to colitis stable 3. Severe erosive esophagitis/PPI 4. [place] ulcerative colitis, no evidence of C diff. Cont antibiotics; discharge home when ok w GI and ID. 5. 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 Stable cont conservative care. Decrease IVFs. 6. Chronic HIV 7. Substance abuse 8. Depression 9. Acute cystitis 10. Severe hypoalbuminemia; somewhat improved consider Megace 11. Dyslipidemia 12. Hiatal hernia 13. Prediabetes 14. Subclinical hyperthyroidism 15. Syncope due to #1 resolved Problems: Exam/Review of Systems Vital Signs Vitals Vital Signs Date Time Temp Pulse Resp B/P Pulse Ox O2 Delivery O2 Flow Rate FiO2 11/24/16 07:47 98.3 97 20 137/83 100 11/22/16 23:30 Room Air Intake and Output 11/23/16 11/23/16 11/24/16 15:00 23:00 07:00 Intake Total 700 ml 1200 ml 1290 ml Output Total 875 ml 1150 ml Balance 700 ml 325 ml 140 ml Results Result Diagram: 11/24/16 0450 11/24/16 0450 Results 24 hrs Laboratory Tests Test 11/24/16 04:50 White Blood Count 4.2 L Red Blood Count 3.28 L Hemoglobin 8.9 L Hematocrit 27.7 L Mean Corpuscular Volume 84.5 Mean Corpuscular Hemoglobin 27.1 L Mean Corpuscular Hemoglobin Concent 32.1 Red Cell Distribution Width 15.8 H Platelet Count 196 Mean Platelet Volume 9.1 Neutrophils % 70.0 Lymphocytes % 21.1 Monocytes % 4.8 Eosinophils % 1.7 Basophils % 0.5 Nucleated Red Blood Cells % 0.0 Neutrophils # 2.9 Lymphocytes # 0.9 Monocytes # 0.2 L Eosinophils # 0.1 Basophils # 0.0 Nucleated Red Blood Cells # 0.0 Sodium Level 139 Potassium Level 2.9 *L Chloride Level 114 H Carbon Dioxide Level 23 Anion Gap 5 L Blood Urea Nitrogen 4 L Creatinine 0.38 L Glucose Level 78 Calcium Level 7.0 L Phosphorus Level 2.5 Magnesium Level 1.7 Medications Medications Current Medications Ondansetron HCl (Zofran Inj) 4 mg Q6H PRN IV NAUSEA AND/OR VOMITING; Start at 16:00 Acetaminophen (Tylenol Tab) 650 mg Q6H PRN PO PAIN LEVEL 1-3 OR FEVER; Start at 16:00 Acetaminophen/ Hydrocodone Bitart ([place] (5/325)) 1 tab Q6H PRN PO MODERATE PAIN LEVEL 4-6 Last administered on 11/14/16 20:22; Admin Dose 1 TAB; Start at 16:00 Magnesium Hydroxide (Milk Of Mag) 30 ml DAILY PRN PO CONSTIPATION; Start at 16:00 Sodium Biphosphate/ Sodium Phosphate (Fleet Enema) 133 ml DAILY PRN [place] CONSTIPATION; Start 11/11/16 at 16:00 Lorazepam (Ativan) 0.5 mg Q6H PRN IV ANXIETY; Start 11/11/16 at 16:00 Hydralazine HCl (Apresoline) 10 mg Q6H PRN IV ELEVATED BLOOD PRESSURE; Start at 16:00 Nitroglycerin (Nitroglycerin (Sl Tab) 0.4 Mg) 1 tab Q5M PRN SL ANGINA Last administered on 11/11/16 23:25; Admin Dose 1 TAB; Start 11/11/16 at 16:00 Efavirenz (Sustiva) 600 mg DAILY PO Last administered on 11/24/16 12:46; Admin Dose 600 MG; Start 11/12/16 at 09:00 Emtricitabine/ Tenofovir (Truvada) 1 tab DAILY PO Last administered on 12:46; Admin Dose 1 TAB; Start 11/12/16 at 09:00 Sucralfate (Carafate) 1 gm QID PO Last administered on 11/24/16 12:51; Admin Dose 1 GM; Start 11/11/16 at 17:00 Valganciclovir (Valcyte) 450 mg Q12 PO Last administered on 11/24/16 12:45; Admin Dose 450 MG; Start 11/11/16 at 21:00 Collagenase (Santyl) 1 applic DAILY TOP Last administered on 11/24/16 10:01; Admin Dose 1 APPLIC; Start 11/12/16 at 13:00 Collagenase (Santyl) 1 applic PRN PRN TOP WOUND CARE; Start 11/12/16 at 12:00 Mesalamine (Delzicol Dr) 800 mg QID PO Last administered on 11/24/16 12:49; Admin Dose 800 MG; Start 11/12/16 at 21:00 Vancomycin HCl (Vancomycin Oral Syringe) 250 mg Q6 PO Last administered on 12:45; Admin Dose 250 MG; Start 11/12/16 at 19:30 Fluconazole (Diflucan) 100 mg DAILY PO Last administered on 11/24/16 12:45; Admin Dose 100 MG; Start 11/13/16 at 09:00 Metoclopramide HCl (Reglan) 10 mg Q6 IV Last administered on 11/24/16 12:45; Admin Dose 10 MG; Start 11/13/16 at 00:00 Lactobacillus Acidophilus (Florajen3 Capsule) 1 each BID PO Last administered on 11/24/16 12:45; Admin Dose 1 EACH; Start 11/13/16 at 21:00 Acetaminophen/ Hydrocodone Bitart ([place] (5/325)) 1 tab Q4H PRN PO severe pain Last administered on 11/14/16 08:32; Admin Dose 1 TAB; Start 11/13/16 at 20:30 Morphine Sulfate 2 mg 2 mg Q4H PRN IV SEVERE PAIN LEVEL 7-10 Last administered on 11/23/16 21:53; Admin Dose 2 MG; Start 11/14/16 at 14:15 Ertapenem 1 gm/ Sodium Chloride 100 ml @ 200 mls/hr Q24H IVPB Last administered on 11/23/16 15:30; Admin Dose 200 MLS/HR; Start 11/14/16 at 14:30 Dextrose/Sodium Chloride (D5-1/2ns) 1,000 ml @ 40 mls/hr Q24H IV Last administered on 11/24/16 09:56; Admin Dose 100 MLS/HR; Start 11/17/16 at 08:00 Docusate Sodium (Colace) 100 mg Q12 PO Last administered on 11/24/16 12:44; Admin Dose 100 MG; Start 11/17/16 at 11:00 Mirtazapine (Remeron) 7.5 mg HS PO Last administered on 11/23/16 21:17; Admin Dose 7.5 MG; Start 11/17/16 at 21:00 Pantoprazole 40 mg 40 mg BID@06,18 IV Last administered on 11/24/16 05:46; Admin Dose 40 MG; Start 11/19/16 at 18:00 Vancomycin HCl/ Sodium Chloride (Vancocin/NS) 150 ml @ 75 mls/hr Q12H IVPB Last administered on 11/24/16 09:42; Admin Dose 75 MLS/HR; Start 11/20/16 at 22: 00 VALERIE LOBO MD Nov 24, 2016 13:26
--- NOTE | 2016-11-24 14:26 | CONS ---
Date/Time of Note Date/Time of Note DATE: 11/24/16 TIME: 14:25 Assessment/Plan Assessment/Plan Chief Complaint/Hosp Course SUBJECTIVE: No acute changes. The patient is alert, looks comfortable, no fevers. ANTIMICROBIALS: 1. Oral vancomycin. 2. IV vancomycin. 3. Invanz. 4. Fluconazole. 5. Sustiva. 6. Truvada. 7. Valcyte. PHYSICAL EXAMINATION: GENERAL: Chronically ill-appearing, wasted 41-year-old white woman who is in no distress. HEENT: Head atraumatic, normocephalic. Sclerae anicteric. Buccal mucosa dry. NECK: Supple, trachea midline. CHEST: Rise symmetrical. Breath sounds clear. HEART: S1, S2. ABDOMEN: Soft, bowel sounds present. EXTREMITIES: Without cyanosis. ASSESSMENT: 1. Acute anemia==> status post gastrointestinal bleeding with EGD and colonoscopy revealed severe ulcerative esophagitis and hemorrhoids==> ? pathology pending. 2. Polymicrobial urinary tract infection with urine culture on admission grew Escherichia coli and Proteus mirabilis. 3. Multiple chronic decubitus with wound culture growing Escherichia coli extended spectrum beta-lactamase, Enterococcus, and Proteus mirabilis. 4. Human immunodeficiency virus, last CD4 count in July 2016 392, remains on antiretrovirals. 5. History of [place]oc[place] esophagitis. 6. Colitis as per CT of the abdomen. 7. Severe decompensated state. PLAN: The patient remains stable. Will dc abx, continue MAYERS, Diflucan and Valcyte, continue local wound care, follow gastroenterology/surgical recommendations, [facility] staff Problems: Consultation Date/Type/Reason Admit Date/Time November 11, 2016 at 15:19 Initial Consult Date 11/11/16 Type of Consultation: ID Referring Provider: JESUS RUIZ Exam/Review of Systems Vital Signs Vitals Vital Signs Date Time Temp Pulse Resp B/P Pulse Ox O2 Delivery O2 Flow Rate FiO2 11/24/16 07:47 98.3 97 20 137/83 100 11/22/16 23:30 Room Air Intake and Output 11/23/16 11/23/16 11/24/16 15:00 23:00 07:00 Intake Total 700 ml 1200 ml 1290 ml Output Total 875 ml 1150 ml Balance 700 ml 325 ml 140 ml Results Result Diagram: 11/24/16 0450 11/24/16 0450 Results 24 hrs Laboratory Tests Test 11/24/16 04:50 White Blood Count 4.2 L Red Blood Count 3.28 L Hemoglobin 8.9 L Hematocrit 27.7 L Mean Corpuscular Volume 84.5 Mean Corpuscular Hemoglobin 27.1 L Mean Corpuscular Hemoglobin Concent 32.1 Red Cell Distribution Width 15.8 H Platelet Count 196 Mean Platelet Volume 9.1 Neutrophils % 70.0 Lymphocytes % 21.1 Monocytes % 4.8 Eosinophils % 1.7 Basophils % 0.5 Nucleated Red Blood Cells % 0.0 Neutrophils # 2.9 Lymphocytes # 0.9 Monocytes # 0.2 L Eosinophils # 0.1 Basophils # 0.0 Nucleated Red Blood Cells # 0.0 Sodium Level 139 Potassium Level 2.9 *L Chloride Level 114 H Carbon Dioxide Level 23 Anion Gap 5 L Blood Urea Nitrogen 4 L Creatinine 0.38 L Glucose Level 78 Calcium Level 7.0 L Phosphorus Level 2.5 Magnesium Level 1.7 Medications Medications Current Medications Ondansetron HCl (Zofran Inj) 4 mg Q6H PRN IV NAUSEA AND/OR VOMITING; Start at 16:00 Acetaminophen (Tylenol Tab) 650 mg Q6H PRN PO PAIN LEVEL 1-3 OR FEVER; Start at 16:00 Acetaminophen/ Hydrocodone Bitart ([place] (5/325)) 1 tab Q6H PRN PO MODERATE PAIN LEVEL 4-6 Last administered on 11/14/16 20:22; Admin Dose 1 TAB; Start at 16:00 Magnesium Hydroxide (Milk Of Mag) 30 ml DAILY PRN PO CONSTIPATION; Start at 16:00 Sodium Biphosphate/ Sodium Phosphate (Fleet Enema) 133 ml DAILY PRN [place] CONSTIPATION; Start 11/11/16 at 16:00 Lorazepam (Ativan) 0.5 mg Q6H PRN IV ANXIETY; Start 11/11/16 at 16:00 Hydralazine HCl (Apresoline) 10 mg Q6H PRN IV ELEVATED BLOOD PRESSURE; Start at 16:00 Nitroglycerin (Nitroglycerin (Sl Tab) 0.4 Mg) 1 tab Q5M PRN SL ANGINA Last administered on 11/11/16 23:25; Admin Dose 1 TAB; Start 11/11/16 at 16:00 Efavirenz (Sustiva) 600 mg DAILY PO Last administered on 11/24/16 12:46; Admin Dose 600 MG; Start 11/12/16 at 09:00 Emtricitabine/ Tenofovir (Truvada) 1 tab DAILY PO Last administered on 12:46; Admin Dose 1 TAB; Start 11/12/16 at 09:00 Sucralfate (Carafate) 1 gm QID PO Last administered on 11/24/16 12:51; Admin Dose 1 GM; Start 11/11/16 at 17:00 Valganciclovir (Valcyte) 450 mg Q12 PO Last administered on 11/24/16 12:45; Admin Dose 450 MG; Start 11/11/16 at 21:00 Collagenase (Santyl) 1 applic DAILY TOP Last administered on 11/24/16 10:01; Admin Dose 1 APPLIC; Start 11/12/16 at 13:00 Collagenase (Santyl) 1 applic PRN PRN TOP WOUND CARE; Start 11/12/16 at 12:00 Mesalamine (Delzicol Dr) 800 mg QID PO Last administered on 11/24/16 12:49; Admin Dose 800 MG; Start 11/12/16 at 21:00 Vancomycin HCl (Vancomycin Oral Syringe) 250 mg Q6 PO Last administered on 12:45; Admin Dose 250 MG; Start 11/12/16 at 19:30 Fluconazole (Diflucan) 100 mg DAILY PO Last administered on 11/24/16 12:45; Admin Dose 100 MG; Start 11/13/16 at 09:00 Metoclopramide HCl (Reglan) 10 mg Q6 IV Last administered on 11/24/16 12:45; Admin Dose 10 MG; Start 11/13/16 at 00:00 Lactobacillus Acidophilus (Florajen3 Capsule) 1 each BID PO Last administered on 11/24/16 12:45; Admin Dose 1 EACH; Start 11/13/16 at 21:00 Acetaminophen/ Hydrocodone Bitart ([place] (5/325)) 1 tab Q4H PRN PO severe pain Last administered on 11/14/16 08:32; Admin Dose 1 TAB; Start 11/13/16 at 20:30 Morphine Sulfate 2 mg 2 mg Q4H PRN IV SEVERE PAIN LEVEL 7-10 Last administered on 11/23/16 21:53; Admin Dose 2 MG; Start 11/14/16 at 14:15 Ertapenem 1 gm/ Sodium Chloride 100 ml @ 200 mls/hr Q24H IVPB Last administered on 11/23/16 15:30; Admin Dose 200 MLS/HR; Start 11/14/16 at 14:30 Dextrose/Sodium Chloride (D5-1/2ns) 1,000 ml @ 40 mls/hr Q24H IV Last administered on 11/24/16 09:56; Admin Dose 100 MLS/HR; Start 11/17/16 at 08:00 Docusate Sodium (Colace) 100 mg Q12 PO Last administered on 11/24/16 12:44; Admin Dose 100 MG; Start 11/17/16 at 11:00 Mirtazapine (Remeron) 7.5 mg HS PO Last administered on 11/23/16 21:17; Admin Dose 7.5 MG; Start 11/17/16 at 21:00 Pantoprazole 40 mg 40 mg BID@06,18 IV Last administered on 11/24/16 05:46; Admin Dose 40 MG; Start 11/19/16 at 18:00 Vancomycin HCl 750 mg/Sodium Chloride 150 ml @ 75 mls/hr Q12H IVPB Last administered on 11/24/16 09:42; Admin Dose 75 MLS/HR; Start 11/20/16 at 22:00 Potassium Chloride (KCl 40 MEQ/250 ML NS) 250 ml @ 62.5 mls/hr ONCE ONCE IVPB ; Start 11/24/16 at 15:00; Stop 11/24/16 at 18:59 Potassium Chloride (Potassium Chloride Pwd/Soln) 40 meq BID PO ; Start 11/25/16 at 09:00 AGUILA BURGOS NP Nov 24, 2016 14:26
[2016-11-24] MEDS ORDERED: POTASSIUM CHLORIDE 250 ML IVPB ONE (15:00)
[2016-11-24 20:27] VITALS: BP 131/87; RESP 21
[2016-11-24] MEDS: MIRTAZAPINE 15 MG TAB PO SCH (20:38)
[2016-11-25] VITALS (16 sets, daily range): BP systolic 119–142; BP diastolic 87–110; PULSE 82–121; RESP 14–22
[2016-11-25] MEDS: VANCOMYCIN HCL 250 MG/5ML POSYG PO SCH ×5 (00:06→23:49)
[2016-11-25] MEDS: METOCLOPRAMIDE 10 MG INJ IV SCH ×4 (00:06→21:43)
--- NOTE | 2016-11-25 05:12 | PN ---
Date/Time of Note Date/Time of Note DATE: 11/24/16 TIME: 11:10 Assessment/Plan Lines/Catheters IV Catheter Type (from [facility]): PICC Line Hughes in Place (from [facility]): Yes Assessment/Plan Chief Complaint/Hosp Course 1. Right lower quadrant serous fluid leak through a pinpoint had possible previous site of femoral access attempts. Differential diagnosis includes peritoneal fluid versus urine versus other. CT noted. -Pressure dressing 2. Recent rectal bleeding with hemorrhagic shock & Anemia s/p transfusions -Monitor closely -PPIs and Carafate -Optimize medical status. 3. HIV positive -Continue medications 4. UTI with E. coli and Proteus -Antibiotics 5. Multiple chronic wounds -Local care -Nutrition optimization -Vitamin C 6. History of polysubstance abuse including tobacco -Encourage cessation 7. Psychiatric disorder with depression -Medical and psychiatric optimization 8. Severe protein calorie malnutrition and hypoalbuminemia -Encourage nutritional optimization Thank you, Late entry 11/24 Problems: Subjective 24 Hr Interval Summary No fevers or chills. No nausea vomiting. No chest pain or shortness of breath. No cough. No seizure. No blood per mouth or rectum. No dysuria Exam/Review of Systems Vital Signs Vitals Vital Signs Date Time Temp Pulse Resp B/P Pulse Ox O2 Delivery O2 Flow Rate FiO2 11/24/16 20:27 98.0 71 21 131/87 100 11/22/16 23:30 Room Air Intake and Output 11/24/16 11/24/16 11/25/16 15:00 23:00 07:00 Intake Total 550 ml 1450 ml Output Total 1000 ml Balance 550 ml 450 ml Exam Free Text/Dictation Constitutional: alert, oriented, No distress Psych: nl mood/affect, No anxiety Head: atraumatic, normocephalic Eyes: EOMI, PERRL, nl conjunctiva ENMT: mucosa pink and moist, nl external ears & nose Neck: non-tender, supple Respiratory: normal air movement, No congested cough, No labored breathing Cardiovascular: No edema, No regular rate and rhythm Gastrointestinal: non-tender, soft, No rebound or guarding Musculoskeletal: nl extremities to inspection, No joint tenderness Extremities: normal pulses, No calf tenderness, No cyanosis Neurological: nl mental status, nl speech Skin: nl turgor, No diaphoresis, No rash or lesions Lymph: nl lymph nodes Results Result Diagram: 11/24/16 0450 11/24/16 0450 GEMA HUITRON MD Nov 25, 2016 05:12
[2016-11-25] MEDS: PANTOPRAZOLE 40 MG INJ IV SCH ×2 (05:21→18:15)
[2016-11-25 06:06] LABS: ADD SCAN DIFF NO
[2016-11-25 06:14] LABS: BASOPHILS % 0.4 % (0.0-2.0); EOSINOPHILS # 0.1 10^3/ul (0.0-0.5); EOSINOPHILS % 1.2 % (0.0-7.0); HEMATOCRIT 28.8 % (37.0-47.0); HEMOGLOBIN 9.5 g/dl (12.0-16.0); LYMPHOCYTES # 0.7 10^3/ul (0.8-2.9); LYMPHOCYTES % 14.6 % (15.0-51.0); MEAN CORPUSCULAR HEMOGLOBIN 27.7 pg (29.0-33.0); MONOCYTE # 0.2 10^3/ul (0.3-0.9); MONOCYTES % 4.3 % (0.0-11.0); NEUTROPHILS % 77.7 % (39.0-77.0); PLATELET COUNT 202 10^3/UL (140-415); RED BLOOD COUNT 3.43 10^6/ul (4.20-5.40); RED CELL DISTRIBUTION WIDTH 15.6 % (11.5-14.5); WHITE BLOOD COUNT 5.1 10^3/ul (4.8-10.8)
[2016-11-25 06:36] LABS: INR 1.17; PT RATIO 1.2
[2016-11-25 06:52] LABS: ALBUMIN 1.8 g/dl (3.3-4.9); ALBUMIN/GLOBULIN RATIO 0.62; BILIRUBIN,INDIRECT 0.1 mg/dl (0-1.1); BILIRUBIN,TOTAL 0.1 mg/dl (0.2-1.3); CALCIUM 7.2 mg/dl (8.4-10.2); CREATININE 0.37 mg/dl (0.44-1.00); MAGNESIUM 1.8 mg/dl (1.7-2.5); PHOSPHORUS 3.1 mg/dl (2.5-4.9); POTASSIUM 3.2 mmol/L (3.5-5.1); TOTAL PROTEIN 4.7 g/dl (6.1-8.1)
[2016-11-25] MEDS ORDERED: LORAZEPAM 2 MG INJ IV ONE (07:30)
--- NOTE | 2016-11-25 08:11 | RADRPT ---
PROCEDURE: CT Brain. CLINICAL INDICATION: headache TECHNIQUE: The study was performed utilizing a multidetector CT scanner. Multiple axial images wer e obtained through the brain.. The images were reviewed on a PACS workstation. DLP 720 mGycm CTDIvol 45 mGy One or more of the following post reduction techniques were used: - Automated exposure control. - Adjustment of the mA and/or Kv according to patient's size. - Use of iterative reconstruction technique COMPARISON: No prior studies are available for comparison. FINDINGS: The ventricles and cerebral sulci are normal in size and configuration. There is no intracranial hem orrhage. There is no mass effect or midline shift. The cheek-white matter junction is unremarkable. The visualized bones and paranasal sinus are clear.. RPTAT: AA IMPRESSION: Unremarkable noncontrast CT brain. A call report was made and the findings discussed with nurse Cherri at 11/25/2016 8:03 AM. .Jonathan Paris MD, MD Date Time Electronically viewed and signed by .Jonathan Paris MD, on 11/25/2016 08:11 .S/
[2016-11-25 08:58] LABS: ADD SCAN DIFF NO
[2016-11-25 08:59] LABS: BASOPHILS % 0.3 % (0.0-2.0); EOSINOPHILS # 0.1 10^3/ul (0.0-0.5); EOSINOPHILS % 0.8 % (0.0-7.0); HEMATOCRIT 30.6 % (37.0-47.0); HEMOGLOBIN 9.9 g/dl (12.0-16.0); LYMPHOCYTES # 2.1 10^3/ul (0.8-2.9); LYMPHOCYTES % 27.4 % (15.0-51.0); MEAN CORPUSCULAR HEMOGLOBIN 28.1 pg (29.0-33.0); MEAN CORPUSCULAR HGB CONC 32.4 g/dl (32.0-37.0); MEAN CORPUSCULAR VOLUME 86.9 fl (82.0-101.0); MEAN PLATELET VOLUME 9.1 fl (7.4-10.4); MONOCYTE # 0.3 10^3/ul (0.3-0.9); MONOCYTES % 4.1 % (0.0-11.0); NEUTROPHIL # 5.1 10^3/ul (1.6-7.5); NEUTROPHILS % 65.1 % (39.0-77.0); PLATELET COUNT 250 10^3/UL (140-415); RED BLOOD COUNT 3.52 10^6/ul (4.20-5.40); RED CELL DISTRIBUTION WIDTH 15.9 % (11.5-14.5); WHITE BLOOD COUNT 7.8 10^3/ul (4.8-10.8)
[2016-11-25] MEDS: COLLAGENASE 30 GM TUBE TOP SCH (09:00)
[2016-11-25] MEDS: POTASSIUM CHLORIDE 20 MEQ POWDER FOR ORAL SOLN PO SCH ×2 (09:00→23:48)
[2016-11-25] MEDS: DOCUSATE SODIUM 100 MG CAP PO SCH ×2 (09:00→23:46)
[2016-11-25] MEDS: VALGANCICLOVIR 450 MG TAB PO SCH ×2 (09:00→23:49)
[2016-11-25] MEDS: L ACIDOPHIL/B LACTIS/B LONGUM CAPSULE PO SCH ×2 (09:00→23:47)
[2016-11-25] MEDS: EMTRICITABINE/TENOFOVIR TAB PO SCH (09:00)
[2016-11-25] MEDS: MESALAMINE (EC) 400 MG CAP PO SCH ×4 (09:00→23:47)
[2016-11-25] MEDS: FLUCONAZOLE 100 MG TAB PO SCH (09:00)
[2016-11-25] MEDS: SUCRALFATE 1 GM TAB PO SCH ×4 (09:00→23:46)
[2016-11-25] MEDS: EFAVIRENZ 600 MG TAB PO SCH (09:00)
[2016-11-25 09:10] LABS: ALANINE AMINOTRANSFERASE 35 IU/L (13-69); ALBUMIN 1.8 g/dl (3.3-4.9); ALBUMIN/GLOBULIN RATIO 0.58; ALKALINE PHOSPHATASE 155 IU/L (42-121); ANION GAP 7 (8-16); ASPARTATE AMINO TRANSFERASE 26 IU/L (15-46); BILIRUBIN,INDIRECT 0.1 mg/dl (0-1.1); BILIRUBIN,TOTAL 0.1 mg/dl (0.2-1.3); BLOOD UREA NITROGEN 5 mg/dl (7-20); CALCIUM 7.2 mg/dl (8.4-10.2); CARBON DIOXIDE 22 mmol/L (21-31); CHLORIDE 116 mmol/L (97-110); CREATININE 0.39 mg/dl (0.44-1.00); GLUCOSE 107 mg/dl (70-220); POTASSIUM 4.1 mmol/L (3.5-5.1); SODIUM 141 mmol/L (135-144); TOTAL PROTEIN 4.9 g/dl (6.1-8.1)
[2016-11-25 09:18] LABS: TROPONIN-I < 0.012 ng/ml (0.00-0.12)
[2016-11-25 09:44] LABS: AADO2 Arterial 38.2 mmHg (7.0-24.0); Allen Test ACCEPTAB; Arterial Base Excess -2.8 mmol/L (-3.0-3); Arterial COHb 0.3 % (0.0-3.0); Arterial Fraction of Oxyhgb 98.2 % (93.0-99.0); Arterial HCO3 21.6 mmol/L (22.0-26.0); Arterial MetHb 0.3 % (0.0-1.5); Arterial Total Hemglobin 11.1 g/dl (12.0-18.0); MODE NASAL CANNULA
--- NOTE | 2016-11-25 14:39 | PN ---
DATE: 11/25/2016 SUBJECTIVE: The patient was transferred yesterday to ICU secondary to acute encephalopathy. CT of the brain revealed no acute intracranial pathology. She is lethargic, lying comfortably in bed. VITAL SIGNS: Temperature 98.5, pulse 104, respirations 20, blood pressure 141/103, saturation 100% on room air. LABORATORY DATA: WBC today 7.8, platelets 250, H and H 9.9 and 30.6, no shift, no bands. BUN 5, cr eatinine 0.39. PHYSICAL EXAMINATION: GENERAL: This is a chronically ill-appearing, debilitated, middle-aged woman who is lethargic in no distress. HEENT: Head atraumatic, normocephalic. Sclerae anicteric. Buccal mucosa dry. NECK: Supple, trachea midline. CHEST: Rise symmetrical. Breath sounds diminished to bases. HEART: S1, S2. ABDOMEN: Soft, bowel sounds present. EXTREMITIES: With trace edema. SKIN: Positive for anasarca. ASSESSMENT: 1. Acute encephalopathy, etiology unclear, CT of the brain revealed no acute pathology. 2. Human immunodeficiency virus disease with CD4 count on 11/14/2016 of 157 and previous CD4 count was above 200. 3. Status post gastrointestinal bleeding. 4. Possible colitis. 5. Multiple decubiti. 6. Status post urinary tract infection and sepsis on admission. 7. Psychiatric disease with depression. PLAN: The patient is hemodynamically stable, completed 2 weeks antibiotics. Currently on antiretr oviral medications, oral vancomycin, fluconazole, Valcyte. We are going to start her on Bactrim-DS once daily for PCP prophylaxis. Repeat CD4 count as the low number on admission could be secondary to acute disease. We will repeat her blood and urine cultures to make sure she is not getting septi c again. Dictated By: AGUILA BURGOS RESIDENTIAL PROPERTY CONSULTANT for GINNY PIERSON/NTS Conf#: [id number] DID#: [id number]
--- NOTE | 2016-11-25 15:18 | PN ---
Date/Time of Note Date/Time of Note DATE: 11/25/16 TIME: 15:14 Assessment/Plan VTE Prophylaxis VTE Prophylaxis Intervention: ambulation Lines/Catheters IV Catheter Type (from Nrs): PICC Line Central line still needed: Yes (iv access) Urinary Cath still in place: Yes Reason Cath still needed: skin wounds contaminated by urine Assessment/Plan Chief Complaint/Hosp Course S: 11/24 Feels good. Tolerating diet. No n/v/d. No further incontinence apparently. Still requiring care for ascitic fluid leak. 11/25: Events noted. Had an event of LOC/altered mental status yesterday evening. Witnessed seizure this am. O:Vss PE No pallor droop Reg Clear Bs dimin; appears mildly distended, nt. No r/r/g No edema; hypotonia noted Neuro: Nonfocal A/P 1. Shock,hemorrhagic, resolved. Stable. 2. Ac blood loss anemia secondary to colitis stable 3. Severe erosive esophagitis/PPI 4. [place] ulcerative colitis, no evidence of C diff. Cont antibiotics; discharge home when ok w GI and ID. 5. 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 Stable cont conservative care. Decrease IVFs. 6. Chronic HIV 7. Substance abuse 8. Depression 9. Acute cystitis 10. Severe hypoalbuminemia; somewhat improved consider Megace 11. Dyslipidemia 12. Hiatal hernia 13. Prediabetes 14. Subclinical hyperthyroidism 15. Syncope due to #1 resolved 16. Single episode seizure, replace lytes. Check EEG. If repeats will ask for neuro assistance. Problems: Exam/Review of Systems Vital Signs Vitals Vital Signs Date Time Temp Pulse Resp B/P Pulse Ox O2 Delivery O2 Flow Rate FiO2 11/25/16 13:43 104 11/25/16 12:00 98.5 20 141/103 100 Room Air 11/25/16 09:00 6.0 Intake and Output 11/24/16 11/24/16 11/25/16 15:00 23:00 07:00 Intake Total 550 ml 1450 ml 420 ml Output Total 1000 ml 1500 ml Balance 550 ml 450 ml -1080 ml Results Result Diagram: 11/25/16 0730 11/25/16 0730 Results 24 hrs Laboratory Tests Test 11/25/16 05:30 11/25/16 07:15 11/25/16 07:30 11/25/16 09:06 White Blood Count 5.1 # 7.8 # Red Blood Count 3.43 L 3.52 L Hemoglobin 9.5 L 9.9 L Hematocrit 28.8 L 30.6 L Mean Corpuscular Volume 84.0 86.9 Mean Corpuscular Hemoglobin 27.7 L 28.1 L Mean Corpuscular Hemoglobin Concent 33.0 32.4 Red Cell Distribution Width 15.6 H 15.9 H Platelet Count 202 250 # Mean Platelet Volume 9.0 9.1 Neutrophils % 77.7 H 65.1 Lymphocytes % 14.6 L 27.4 Monocytes % 4.3 4.1 Eosinophils % 1.2 0.8 Basophils % 0.4 0.3 Nucleated Red Blood Cells % 0.0 0.0 Neutrophils # 4.0 5.1 Lymphocytes # 0.7 L 2.1 Monocytes # 0.2 L 0.3 Eosinophils # 0.1 0.1 Basophils # 0.0 0.0 Nucleated Red Blood Cells # 0.0 0.0 Prothrombin Time 15.0 H Prothrombin Time Ratio 1.2 INR International Normalized Ratio 1.17 Sodium Level 140 141 Potassium Level 3.2 L 4.1 Chloride Level 117 H 116 H Carbon Dioxide Level 22 22 Anion Gap 4 L 7 L Blood Urea Nitrogen 4 L 5 L Creatinine 0.37 L 0.39 L Glucose Level 82 107 Calcium Level 7.2 L 7.2 L Phosphorus Level 3.1 Magnesium Level 1.8 Total Bilirubin 0.1 L 0.1 L Direct Bilirubin 0.00 0.00 Indirect Bilirubin 0.1 0.1 Aspartate Amino Transf (AST/SGOT) 22 26 Alanine Aminotransferase (ALT/SGPT) 40 35 Alkaline Phosphatase 156 H 155 H Total Protein 4.7 L 4.9 L Albumin 1.8 L 1.8 L Globulin 2.90 3.10 Albumin/Globulin Ratio 0.62 0.58 Bedside Glucose 110 Troponin I < 0.012 Blood Gas Specimen Source Blood arterial Arterial Blood Date Drawn 11/25/2016 9:30:26 AM Arterial Blood pH (Temp corrected) 7.393 Arterial Blood pCO2 (Temp correct) 36.3 Arterial Blood pO2 (Temp corrected) 198.0 H Arterial Blood HCO3 21.6 L Arterial Blood Base Excess -2.8 Arterial Blood Oxygen Saturation 98.8 H Britton Test ACCEPTAB Arterial Blood Gas Puncture Site Right Radial Arterial Blood Carboxyhemoglobin 0.3 Arterial Blood Methemoglobin 0.3 Blood Gas A-a O2 Differential 38.2 H Oxyhemoglobin Percent 98.2 Total Hemoglobin 11.1 L Blood Gas Temperature 37.0 Blood Gas Modality NASAL CANNULA FiO2 39.0 Blood Gas Notified Whom JLD Blood Gas Notified Time 11/25/2016 9:44:08 AM Test 11/25/16 09:15 Magnesium Level 1.8 Medications Medications Current Medications Ondansetron HCl (Zofran Inj) 4 mg Q6H PRN IV NAUSEA AND/OR VOMITING; Start at 16:00 Acetaminophen (Tylenol Tab) 650 mg Q6H PRN PO PAIN LEVEL 1-3 OR FEVER; Start at 16:00 Acetaminophen/ Hydrocodone Bitart ([place] (5/325)) 1 tab Q6H PRN PO MODERATE PAIN LEVEL 4-6 Last administered on 11/14/16 20:22; Admin Dose 1 TAB; Start at 16:00 Magnesium Hydroxide (Milk Of Mag) 30 ml DAILY PRN PO CONSTIPATION; Start at 16:00 Sodium Biphosphate/ Sodium Phosphate (Fleet Enema) 133 ml DAILY PRN [place] CONSTIPATION; Start 11/11/16 at 16:00 Lorazepam (Ativan) 0.5 mg Q6H PRN IV ANXIETY; Start 11/11/16 at 16:00 Hydralazine HCl (Apresoline) 10 mg Q6H PRN IV ELEVATED BLOOD PRESSURE; Start at 16:00 Nitroglycerin (Nitroglycerin (Sl Tab) 0.4 Mg) 1 tab Q5M PRN SL ANGINA Last administered on 11/11/16 23:25; Admin Dose 1 TAB; Start 11/11/16 at 16:00 Efavirenz (Sustiva) 600 mg DAILY PO Last administered on 11/24/16 12:46; Admin Dose 600 MG; Start 11/12/16 at 09:00 Emtricitabine/ Tenofovir (Truvada) 1 tab DAILY PO Last administered on 12:46; Admin Dose 1 TAB; Start 11/12/16 at 09:00 Sucralfate (Carafate) 1 gm QID PO Last administered on 11/24/16 20:38; Admin Dose 1 GM; Start 11/11/16 at 17:00 Valganciclovir (Valcyte) 450 mg Q12 PO Last administered on 11/24/16 20:39; Admin Dose 450 MG; Start 11/11/16 at 21:00 Collagenase (Santyl) 1 applic DAILY TOP Last administered on 11/24/16 10:01; Admin Dose 1 APPLIC; Start 11/12/16 at 13:00 Collagenase (Santyl) 1 applic PRN PRN TOP WOUND CARE; Start 11/12/16 at 12:00 Mesalamine (Delzicol Dr) 800 mg QID PO Last administered on 11/24/16 20:43; Admin Dose 800 MG; Start 11/12/16 at 21:00 Vancomycin HCl (Vancomycin Oral Syringe) 250 mg Q6 PO Last administered on 05:21; Admin Dose 250 MG; Start 11/12/16 at 19:30 Fluconazole (Diflucan) 100 mg DAILY PO Last administered on 11/24/16 12:45; Admin Dose 100 MG; Start 11/13/16 at 09:00 Metoclopramide HCl (Reglan) 10 mg Q6 IV Last administered on 11/25/16 11:47; Admin Dose 10 MG; Start 11/13/16 at 00:00 Lactobacillus Acidophilus (Florajen3 Capsule) 1 each BID PO Last administered on 11/24/16 20:38; Admin Dose 1 EACH; Start 11/13/16 at 21:00 Acetaminophen/ Hydrocodone Bitart ([place] (5/325)) 1 tab Q4H PRN PO severe pain Last administered on 11/14/16 08:32; Admin Dose 1 TAB; Start 11/13/16 at 20:30 Morphine Sulfate 2 mg 2 mg Q4H PRN IV SEVERE PAIN LEVEL 7-10 Last administered on 11/23/16 21:53; Admin Dose 2 MG; Start 11/14/16 at 14:15 Dextrose/Sodium Chloride (D5-1/2ns) 1,000 ml @ 40 mls/hr Q24H IV Last administered on 11/24/16 20:49; Admin Dose 40 MLS/HR; Start 11/17/16 at 08:00 Docusate Sodium (Colace) 100 mg Q12 PO Last administered on 11/24/16 20:38; Admin Dose 100 MG; Start 11/17/16 at 11:00 Mirtazapine (Remeron) 7.5 mg HS PO Last administered on 11/24/16 20:38; Admin Dose 7.5 MG; Start 11/17/16 at 21:00 Pantoprazole (Protonix Iv) 40 mg BID@ IV Last administered on 11/25/16 05: 21; Admin Dose 40 MG; Start 11/19/16 at 18:00 Potassium Chloride (Potassium Chloride Pwd/Soln) 40 meq BID PO ; Start 11/25/16 at 09:00 Trimethoprim/ Sulfamethoxazole (Bactrim (Ds)) 1 tab DAILY PO ; Start 11/26/16 at 09:00 VALERIE LOBO MD Nov 25, 2016 15:18
[2016-11-25] MEDS ORDERED: MAGNESIUM SULFATE 2 GM/50 ML 50 ML IVPB ONE (15:30)
--- NOTE | 2016-11-25 16:49 | PN ---
Date/Time of Note Date/Time of Note DATE: 11/25/16 TIME: 16:47 Assessment/Plan VTE Prophylaxis VTE Prophylaxis Intervention: SCD's Lines/Catheters [facility]): PICC Line Central line still needed: Yes Urinary Cath still in place: Yes Reason Cath still needed: urinary retention Assessment/Plan Assessment/Plan Assessment * Anemia EGD 11/12/2016 Severe ulcerated esophagitis/Inocencia esophagitis Colonoscopy 11/12/2016 [place] ulcerative colitis. Moderate sized internal hemorrhoids * HIV disease. * Anasarca/small amount of ascites * Probably ascitic fluid leak right lower quadrant * Malnutrition * UTI * Polysubstance abuse * History of psychiatric illness Plan * Continue present management Subjective 24 Hr Interval Summary Free Text/Dictation Course reviewed with RN Patient seen and examined No diarrhea nor abdominal pain Patient states she is hungry Minimal leakage from small wound in the right lower quadrant. Exam/Review of Systems Vital Signs Vitals Vital Signs Date Time Temp Pulse Resp B/P Pulse Ox O2 Delivery O2 Flow Rate FiO2 11/25/16 13:43 104 11/25/16 12:00 98.5 20 141/103 100 Room Air 11/25/16 09:00 6.0 Intake and Output 11/24/16 11/24/16 11/25/16 15:00 23:00 07:00 Intake Total 550 ml 1450 ml 420 ml Output Total 1000 ml 1500 ml Balance 550 ml 450 ml -1080 ml Exam Constitutional: alert, frail Neck: non-tender, supple Respiratory: clear to auscultation, normal air movement Cardiovascular: nl pulses, regular rate and rhythm Gastrointestinal: soft Musculoskeletal: nl extremities to inspection, nl gait and stance Results Result Diagram: 11/25/16 0730 11/25/16 0730 Results 24 hrs Laboratory Tests Test 11/25/16 05:30 11/25/16 07:15 11/25/16 07:30 11/25/16 09:06 White Blood Count 5.1 # 7.8 # Red Blood Count 3.43 L 3.52 L Hemoglobin 9.5 L 9.9 L Hematocrit 28.8 L 30.6 L Mean Corpuscular Volume 84.0 86.9 Mean Corpuscular Hemoglobin 27.7 L 28.1 L Mean Corpuscular Hemoglobin Concent 33.0 32.4 Red Cell Distribution Width 15.6 H 15.9 H Platelet Count 202 250 # Mean Platelet Volume 9.0 9.1 Neutrophils % 77.7 H 65.1 Lymphocytes % 14.6 L 27.4 Monocytes % 4.3 4.1 Eosinophils % 1.2 0.8 Basophils % 0.4 0.3 Nucleated Red Blood Cells % 0.0 0.0 Neutrophils # 4.0 5.1 Lymphocytes # 0.7 L 2.1 Monocytes # 0.2 L 0.3 Eosinophils # 0.1 0.1 Basophils # 0.0 0.0 Nucleated Red Blood Cells # 0.0 0.0 Prothrombin Time 15.0 H Prothrombin Time Ratio 1.2 INR International Normalized Ratio 1.17 Sodium Level 140 141 Potassium Level 3.2 L 4.1 Chloride Level 117 H 116 H Carbon Dioxide Level 22 22 Anion Gap 4 L 7 L Blood Urea Nitrogen 4 L 5 L Creatinine 0.37 L 0.39 L Glucose Level 82 107 Calcium Level 7.2 L 7.2 L Phosphorus Level 3.1 Magnesium Level 1.8 Total Bilirubin 0.1 L 0.1 L Direct Bilirubin 0.00 0.00 Indirect Bilirubin 0.1 0.1 Aspartate Amino Transf (AST/SGOT) 22 26 Alanine Aminotransferase (ALT/SGPT) 40 35 Alkaline Phosphatase 156 H 155 H Total Protein 4.7 L 4.9 L Albumin 1.8 L 1.8 L Globulin 2.90 3.10 Albumin/Globulin Ratio 0.62 0.58 Bedside Glucose 110 Troponin I < 0.012 Blood Gas Specimen Source Blood arterial Arterial Blood Date Drawn 11/25/2016 9:30:26 AM Arterial Blood pH (Temp corrected) 7.393 Arterial Blood pCO2 (Temp correct) 36.3 Arterial Blood pO2 (Temp corrected) 198.0 H Arterial Blood HCO3 21.6 L Arterial Blood Base Excess -2.8 Arterial Blood Oxygen Saturation 98.8 H Britton Test ACCEPTAB Arterial Blood Gas Puncture Site Right Radial Arterial Blood Carboxyhemoglobin 0.3 Arterial Blood Methemoglobin 0.3 Blood Gas A-a O2 Differential 38.2 H Oxyhemoglobin Percent 98.2 Total Hemoglobin 11.1 L Blood Gas Temperature 37.0 Blood Gas Modality NASAL CANNULA FiO2 39.0 Blood Gas Notified Whom JLD Blood Gas Notified Time 11/25/2016 9:44:08 AM Test 11/25/16 09:15 Magnesium Level 1.8 Medications Medications Current Medications Ondansetron HCl (Zofran Inj) 4 mg Q6H PRN IV NAUSEA AND/OR VOMITING; Start at 16:00 Acetaminophen (Tylenol Tab) 650 mg Q6H PRN PO PAIN LEVEL 1-3 OR FEVER; Start at 16:00 Acetaminophen/ Hydrocodone Bitart ([place] (5/325)) 1 tab Q6H PRN PO MODERATE PAIN LEVEL 4-6 Last administered on 11/14/16 20:22; Admin Dose 1 TAB; Start at 16:00 Magnesium Hydroxide (Milk Of Mag) 30 ml DAILY PRN PO CONSTIPATION; Start at 16:00 Sodium Biphosphate/ Sodium Phosphate (Fleet Enema) [address] CONSTIPATION; Start 11/11/16 at 16:00 Lorazepam (Ativan) 0.5 mg Q6H PRN IV ANXIETY; Start 11/11/16 at 16:00 Hydralazine HCl (Apresoline) 10 mg Q6H PRN IV ELEVATED BLOOD PRESSURE; Start at 16:00 Nitroglycerin (Nitroglycerin (Sl Tab) 0.4 Mg) 1 tab Q5M PRN SL ANGINA Last administered on 11/11/16 23:25; Admin Dose 1 TAB; Start 11/11/16 at 16:00 Efavirenz (Sustiva) 600 mg DAILY PO Last administered on 11/24/16 12:46; Admin Dose 600 MG; Start 11/12/16 at 09:00 Emtricitabine/ Tenofovir (Truvada) 1 tab DAILY PO Last administered on 12:46; Admin Dose 1 TAB; Start 11/12/16 at 09:00 Sucralfate (Carafate) 1 gm QID PO Last administered on 11/24/16 20:38; Admin Dose 1 GM; Start 11/11/16 at 17:00 Valganciclovir (Valcyte) 450 mg Q12 PO Last administered on 11/24/16 20:39; Admin Dose 450 MG; Start 11/11/16 at 21:00 Collagenase (Santyl) 1 applic DAILY TOP Last administered on 11/24/16 10:01; Admin Dose 1 APPLIC; Start 11/12/16 at 13:00 Collagenase (Santyl) 1 applic PRN PRN TOP WOUND CARE; Start 11/12/16 at 12:00 Mesalamine (Delzicol Dr) 800 mg QID PO Last administered on 11/24/16 20:43; Admin Dose 800 MG; Start 11/12/16 at 21:00 Vancomycin HCl (Vancomycin Oral Syringe) 250 mg Q6 PO Last administered on 05:21; Admin Dose 250 MG; Start 11/12/16 at 19:30 Fluconazole (Diflucan) 100 mg DAILY PO Last administered on 11/24/16 12:45; Admin Dose 100 MG; Start 11/13/16 at 09:00 Lactobacillus Acidophilus (Florajen3 Capsule) 1 each BID PO Last administered on 11/24/16 20:38; Admin Dose 1 EACH; Start 11/13/16 at 21:00 Acetaminophen/ Hydrocodone Bitart ([place] (5/325)) 1 tab Q4H PRN PO severe pain Last administered on 11/14/16 08:32; Admin Dose 1 TAB; Start 11/13/16 at 20:30 Morphine Sulfate 2 mg 2 mg Q4H PRN IV SEVERE PAIN LEVEL 7-10 Last administered on 11/23/16 21:53; Admin Dose 2 MG; Start 11/14/16 at 14:15 Dextrose/Sodium Chloride (D5-1/2ns) 1,000 ml @ 40 mls/hr Q24H IV Last administered on 11/24/16 20:49; Admin Dose 40 MLS/HR; Start 11/17/16 at 08:00 Docusate Sodium (Colace) 100 mg Q12 PO Last administered on 11/24/16 20:38; Admin Dose 100 MG; Start 11/17/16 at 11:00 Mirtazapine (Remeron) 7.5 mg HS PO Last administered on 11/24/16 20:38; Admin Dose 7.5 MG; Start 11/17/16 at 21:00 Pantoprazole (Protonix Iv) 40 mg BID@06,18 IV Last administered on 11/25/16 05: 21; Admin Dose 40 MG; Start 11/19/16 at 18:00 Potassium Chloride (Potassium Chloride Pwd/Soln) 40 meq BID PO ; Start 11/25/16 at 09:00 Trimethoprim/ Sulfamethoxazole 1 tab 1 tab DAILY PO ; Start 11/26/16 at 09:00 Magnesium Sulfate (Magnesium Sulfate 2 Gm/50 ml) 50 ml @ 25 mls/hr ONCE ONCE IVPB ; Start 11/25/16 at 15:30; Stop 11/25/16 at 17:29 Metoclopramide HCl (Reglan) 5 mg Q8 IV ; Start 11/25/16 at 20:00 GUCCI STROUD NP Nov 25, 2016 16:49
--- NOTE | 2016-11-25 17:40 | RADRPT ---
PROCEDURE: XR Chest. CLINICAL INDICATION: Pneumonia TECHNIQUE: Portable single view of the chest COMPARISON: 11/14/2016 FINDINGS: Left PICC line remains in place. Lung volumes are improved but bilateral lung infiltrates and effus ions are otherwise likely unchanged. The patient is rotated to the left. IMPRESSION: Improved lung volumes. Otherwise no definite interval change. RPTAT: HLBE Anushka Sharif Physician Date Time Electronically viewed and signed by Ansuhka Sharif Physician on 11/25/2016 17:39 LE/
--- NOTE | 2016-11-25 17:43 | CONS ---
DATE OF ADMISSION: 11/11/2016 DATE OF CONSULTATION: 11/25/2016 TYPE OF CONSULTATION: Nephrology. REFERRING PHYSICIAN: VALERIE LOBO MD. REASON FOR CONSULTATION: Hyperchloremia unclear etiology, severe electrolyte abnormalities. HISTORY OF PRESENT ILLNESS: This is a 41-year-old female with a past medical history of chronic dec ubitus ulcers, history of HIV positive, hepatitis C, substance abuse, smoking, history of pleural ef fusions that required thoracentesis, respiratory failure and history of hemorrhagic shock. The sofie ent is admitted by the hospitalist service for hemorrhagic shock. She received multiple blood trans fusions and also had a single episode of seizures. Neurology has been following the patient. The p atarin has a history of ulcerative colitis, status post enterocutaneous fistula, ascites and traumat ic IV ____. The patient is followed by hospitalist service. She has been started on diet currently , tolerating the diet, but she continues to have hyperchloremia and she also has ongoing ascites and fluid leak. REVIEW OF SYSTEMS: As per HPI. PAST MEDICAL HISTORY: As per HPI. PAST SURGICAL HISTORY: 1. History of previous EGD, status post GI bleeding. 2. History of previous decubitus debridement. SOCIAL HISTORY: No smoking but the patient has a previous history of smoking and a substance abuse. FAMILY HISTORY: Not available. PHYSICAL EXAMINATION: VITAL SIGNS: Temperature 98.5, heart rate is 101, respiration 20, blood pressure 141/103. Saturati on 100% on 2 liters nasal cannula. GENERAL: Awake, alert, in moderate distress. HEENT: Normal. Oropharynx clear. NECK: Supple, no JVD, no lymphadenopathy. LUNGS: Clear to auscultation. Decreased breath sounds at the bases. HEART: S1, S2, with regular rhythm, no murmur. ABDOMEN: Soft, nontender, nondistended. Ascitic fluid has been leaking there. The bag is____. EXTREMITIES: Mild pitting edema. LABORATORY DATA PLUS DIAGNOSTIC IMAGING: Sodium 141, potassium 4.1, chloride 116, bicarbonate 22, B UN 5, creatinine 0.3, glucose 107, calcium 7.2. LFTs are normal. WBC 7.8, hemoglobin 9.9, platelet count is 250. ABG shows pH of 7.39. IMPRESSION: This is a 41-year-old female with possible colitis and multiple decubitus ulcers. She is HIV positive with a CD4 count of 157. The patient is noted to have severe hyperchloremia and nep hrology was consulted for #1. 1. Severe hyperchloremia with a chloride of 117, unclear etiology. 2. Acute encephalopathy. 3. Status post hemorrhagic shock. 4. Human immunodeficiency virus positive with CD4 count of 157. 5. Positive colitis. 6. Multiple decubitus ulcers. 7. Status post urinary tract infection and sepsis on admission. 8. Depression. PLAN: 1. Thank you, Dr. Javier for this consultation. I will order the patient's urine studies inclu ding a urine sodium, urine chloride and urine eosinophils. Patient likely has some chloride related defects from her human immunodeficiency virus positive disease. 2. I changed the patient's IV fluids from D5 half NS to D5 1/4 NS to run at 40 mL per hour. At thi s point, I will order some TSH, free T4 and cortisol with the a.m. labs to assess for any hormonal r elated chloride loss. 3. The patient is currently seen in the ICU and she will be followed up along with her course in [facility]. Once again, thank you, Dr. Javier for this consultation. I will continue to follow this patient along with you. Dictated By: ASHISH MENDOZA MD, KP/SHILPA Conf#: [id number] DID#: [id number]
[2016-11-25] MEDS: DEXTROSE 5%-0.225% NACL 1,000 ML IV SCH ×2 (19:10→21:40)
--- NOTE | 2016-11-25 23:21 | RADRPT ---
PROCEDURE: XR Chest. CLINICAL INDICATION: Enteric tube confirmation TECHNIQUE: AP Portable chest. COMPARISON: 09/04/2016 and 11/25/2016 FINDINGS: The soft tissues and bones are remarkable for an enteric tube in the stomach. A left PICC catheter tip is present in the superior vena cava. Left greater than right lower lobe consolidation is prese nt. Small left greater than right pleural effusions are present. . The mediastinum and heart are n ormal. No pneumothorax is present. IMPRESSION: 1. Tubes and lines as indicated above. 2. Left lower greater than right lower lobe pneumonia with small bilateral pleural effusions. Jose mmend follow-up until resolution. RPTAT: HDC .Radha Roberts MD, MD Date Time Electronically viewed and signed by .Radha Roberts MD, on 11/25/2016 23:21 .C/
[2016-11-25] MEDS: MIRTAZAPINE 15 MG TAB PO SCH (23:49)
[2016-11-25] MEDS: LEVETIRACETAM 500 MG (PMX) 100 ML IVPB SCH (23:51)
[2016-11-26] VITALS (23 sets, daily range): BP systolic 97–145; BP diastolic 67–102; PULSE 86–112; RESP 14–25
--- NOTE | 2016-11-26 00:11 | CONS ---
DATE OF ADMISSION: 11/11/2016 DATE OF CONSULTATION: 11/25/2016 TYPE OF CONSULTATION: Neurology. Thank you, Dr. Lobo, for your kind referral for evaluation of encephalopathy and possible sei zure. HISTORY OF PRESENT ILLNESS: The patient is a 41-year-old lady who is HIV positive, who also has maye oing medical problems of acute cystitis, dyslipidemia, prediabetes, status post shock, resolved; acu te blood loss on admission secondary to colitis, severe erosive esophagitis, and ulcerative colitis. Yesterday, patient had an episode of decreased level of responsiveness, altered mental status and, according to primary notes, a witnessed seizure episode. LABORATORY DATA: The patient's labs show anemia 9.9 hemoglobin, 30.6 hematocrit, normal WBCs, and p latelets. A comprehensive metabolic panel shows potassium 3.2, chloride 117, BUN 4, creatinine 0.37 , calcium 7.2, alkaline phosphatase 156, albumin 1.8. PT 15, PTT 32. PTT was checked almost 10 day s ago. Urinalysis was not done lately. Absolute CD4 count 157, status post transfusions. Labs als o shows hyperchloremia of 116. ALLERGIES: TO HYDROCORTISONE AND IBUPROFEN. MEDICATIONS: May rest of medications today: 1. Reglan. 2. Bactrim. 3. Protonix. 4. Remeron 7.5 at bedtime. 5. Diflucan. 6. Mesalamine. 7. Vancomycin. 8. Truvada. 9. Valcyte. 10. Carafate. Currently, the patient is n.p.o. SOCIAL HISTORY: According to the chart, substance abuse and smoking. FAMILY HISTORY: Noncontributory. PHYSICAL EXAMINATION: VITAL SIGNS: Temperature 97.8, 82 pulse, 14 respiration, 123/94 blood pressure. GENERAL: Not in acute distress, lying in bed. HEENT: Normocephalic, atraumatic head. Somewhat swollen eyelids. NECK: Supple. No meningeal signs. LUNGS: Clear to auscultation bilaterally. CARDIAC: Normal cardiac rhythm and sounds. ABDOMEN: Soft. EXTREMITIES: No cyanosis, clubbing, or edema. NEUROLOGIC: She is lethargic, briefly arousable by voice or pain. Seemed to follow simple commands . Goes back to sleep. Equivocal response to visual threat bilaterally. Pupils reactive from 3 to 2 mm bilaterally. Extraocular movements intact. Corneal reflexes present bilaterally as well as ga g. The patient moves bilateral upper extremities symmetrically, about 3/5, on request and to some n oxious stimuli. The patient did not move her lower extremities to request or to pain. Deep tendon reflexes 1+ upper extremities, absent in lower extremities. Equivocal response to plantar stimulati on bilaterally. IMPRESSION: 1. Status post seizure. Etiology? 2. The patient has human immunodeficiency virus with CD4 count of 157. 3. Ulcerative colitis. 4. Status post gastrointestinal bleed. 5. Status post sepsis. PLAN: EEG was done. I will review. I will start the patient on Keppra 500 twice daily. When sofie ent is appropriate for MRI we could obtain MRI of the brain with contrast. ID service is on case. I do not appreciate any meningeal signs. I leave decision whether or not to tap the patient to ID s pecialist, but will try to get probably MRI first. Thank you very much for this interesting consultation. Dictated By: JAYME STEWARD/SHILPA Conf#: [id number] DID#: [id number] CC: VALERIE LOBO MD; JESUS RUIZ;*EndCC*
--- NOTE | 2016-11-26 00:19 | SP ---
DATE OF PROCEDURE: 11/25/2016 INDICATION: A 41-year-old with encephalopathy and status post seizure yesterday. DESCRIPTION OF PROCEDURE: Routine EEG was recorded digitally. [id number] and [id number] jayro ages were recorded and reviewed. All impedances were measured and recorded. Cap electrodes were pl aced in accordance with International 10-20 system of electrode placement. FINDINGS: Symmetrically distributed background activity of low to medium amplitude ranging in frequ ency between 8 to 10 cycles per second was seen. At times, slows down 4 to 6 cycles per second. No definite response to photic stimulation. No definite epileptiform transients were seen. No signs of ongoing electrographic seizures or lateralized slowing. IMPRESSION: Abnormal study secondary to intermittent background slowing, which could reflect presen ce of encephalopathy, possibly toxic metabolic type plus/minus postictal. Please correlate clinical ly. Dictated By: JAYME STEWARD/SHILPA Conf#: [id number] DID#: [id number] CC: JESUS RUIZ;*KlaudiaCC*
[2016-11-26 06:16] LABS: ADD SCAN DIFF NO
[2016-11-26 06:23] LABS: BASOPHILS % 0.5 % (0.0-2.0); EOSINOPHILS % 0.6 % (0.0-7.0); HEMATOCRIT 27.4 % (37.0-47.0); LYMPHOCYTES # 0.9 10^3/ul (0.8-2.9); LYMPHOCYTES % 14.1 % (15.0-51.0); MEAN CORPUSCULAR HEMOGLOBIN 27.7 pg (29.0-33.0); MEAN CORPUSCULAR HGB CONC 32.8 g/dl (32.0-37.0); MEAN CORPUSCULAR VOLUME 84.3 fl (82.0-101.0); MEAN PLATELET VOLUME 8.7 fl (7.4-10.4); MONOCYTE # 0.3 10^3/ul (0.3-0.9); MONOCYTES % 4.1 % (0.0-11.0); NEUTROPHIL # 5.1 10^3/ul (1.6-7.5); PLATELET COUNT 225 10^3/UL (140-415); RED BLOOD COUNT 3.25 10^6/ul (4.20-5.40); RED CELL DISTRIBUTION WIDTH 15.9 % (11.5-14.5); WHITE BLOOD COUNT 6.4 10^3/ul (4.8-10.8)
[2016-11-26 06:43] LABS: CALCIUM 7.3 mg/dl (8.4-10.2); CREATININE 0.41 mg/dl (0.44-1.00); MAGNESIUM 2.1 mg/dl (1.7-2.5); PHOSPHORUS 3.5 mg/dl (2.5-4.9); POTASSIUM 3.4 mmol/L (3.5-5.1)
[2016-11-26] MEDS: VANCOMYCIN HCL 250 MG/5ML POSYG PO SCH ×3 (06:48→17:33)
[2016-11-26] MEDS: METOCLOPRAMIDE 10 MG INJ IV SCH ×3 (06:48→21:56)
[2016-11-26] MEDS: PANTOPRAZOLE 40 MG INJ IV SCH ×2 (06:48→17:33)
[2016-11-26 07:21] LABS: THYROID STIMULATING HORMONE 2.78 MIU/L (0.465-4.680)
[2016-11-26] MEDS: MESALAMINE (EC) 400 MG CAP PO SCH ×4 (09:00→21:34)
[2016-11-26] MEDS: COLLAGENASE 30 GM TUBE TOP SCH (09:00)
[2016-11-26] MEDS: EMTRICITABINE/TENOFOVIR TAB PO SCH (09:06)
[2016-11-26] MEDS: DOCUSATE SODIUM 100 MG CAP PO SCH ×2 (09:06→21:34)
[2016-11-26] MEDS: FLUCONAZOLE 100 MG TAB PO SCH (09:06)
[2016-11-26] MEDS: L ACIDOPHIL/B LACTIS/B LONGUM CAPSULE PO SCH ×2 (09:06→21:34)
[2016-11-26] MEDS: VALGANCICLOVIR 450 MG TAB PO SCH ×2 (09:06→21:37)
[2016-11-26] MEDS: TRIMETHOPRIM/SULFAMETHOX (DS) TAB PO SCH (09:06)
[2016-11-26] MEDS: SUCRALFATE 1 GM TAB PO SCH ×4 (09:06→21:35)
[2016-11-26] MEDS: POTASSIUM CHLORIDE 20 MEQ POWDER FOR ORAL SOLN PO SCH ×2 (09:07→21:34)
[2016-11-26] MEDS: LEVETIRACETAM 500 MG (PMX) 100 ML IVPB SCH ×2 (09:09→21:33)
[2016-11-26] MEDS: EFAVIRENZ 600 MG TAB PO SCH (09:25)
--- NOTE | 2016-11-26 11:14 | CONS ---
Date/Time of Note Date/Time of Note DATE: 11/26/16 TIME: 11:11 Assessment/Plan Assessment/Plan Additional Assessment/Plan Chest x-ray was reviewed from of this month which is totally clear. Chest x-ray was reviewed from yesterday which is showing left lower lobe infiltrate. Next CT imaging of the head has been essentially unremarkable. Assessment recommendations; 1. Patient admitted for severe anemia status post blood transfusion with stable hematocrit now. 2. Waxing and waning mental status likely from metabolic encephalopathy possibly HIV related. 3. Generalized anasarca, Continue current treatment. Add cefepime 1 g IV every 12 hours. Obtain follow- up chest x-ray in 48 hours. Consultation Date/Type/Reason Admit Date/Time November 11, 2016 at 15:19 Date of Consultation: Nov 26, 2016 Type of Consultation: Pulmonary/critical care Reason for Consultation Pulmonary consultations requested for evaluation of pneumonia. History of presenting any; patient is a 41-year-old white woman who was admitted on of last month when the patient presented to ER with GI bleed. Patient was found to be quite severely anemic. She was blood. Patient also has had waxing and waning mental status in the hospital which has been attributed to metabolic enthesopathy possibly HIV related. Last night the patient became slightly more obtunded and confused and had to be transferred to ICU. By the time I saw the patient this morning the patient is completely awake and alert denies any shortness of breath abdominal pain nausea vomiting. Past medical history; next 1. History of HIV positive patient not on anti-retroviral regimen on outpatient basis. 2. Prior history of respiratory failure. 3. Severe cachexia. Medications; reviewed. Allergies; hydrocortisone and ibuprofen. Social history; patient smokes off and on. Family history; noncontributory. Occupational history; patient is on disability. Review of systems; limited review system could be obtained as patient does nods off to sleep. But she denies any shortness of breath, abdominal pain, nausea vomiting. General exam; young woman, awake, currently in no distress. Constitutional: improved Psychological: nl mood/affect, No anxiety Past Medical History Medical History: colitis, other (hiv) Past Surgical History Past Surgical Hx: other (EGD gstric ulcers) Social History Smoking Status: Former smoker Exam/Review of Systems Vital Signs Vitals Vital Signs Date Time Temp Pulse Resp B/P Pulse Ox O2 Delivery O2 Flow Rate FiO2 11/26/16 11:00 101 18 122/95 100 Room Air 11/26/16 10:17 21 11/26/16 08:00 98.8 2.0 Intake and Output 11/25/16 11/25/16 11/26/16 14:59 22:59 06:59 Intake Total 160 ml 480 ml Output Total 700 ml 300 ml 300 ml Balance -700 ml -140 ml 180 ml Exam HEENT examination; supple neck, no JVD. No lymphadenopathy. Midline trachea. No thyromegaly. Patient has multiple carious teeth. Pupils are small bilaterally. Chest examined; diminished but clear breath sounds. S1-S2 audible, no murmurs. Regular rhythm. Abdomen examination; soft, mild abdominal wall edema is present. Bowel sounds audible. No organomegaly. Abdomen is nontender. Extremity exam; no peripheral edema. Pulses 1+ bilaterally. VISUAL SPECIALIST exam; patient is awake and follows simple commands and moves all 4 extremities on command. Results Result Diagram: 11/26/1660411/26/16604 Results 24 hrs Laboratory Tests Test 11/25/16 17:00 11/26/16 06:05 Urine Eosinophils % 0.0 Urine Random Sodium 131 H White Blood Count 6.4 Red Blood Count 3.25 L Hemoglobin 9.0 L Hematocrit 27.4 L Mean Corpuscular Volume 84.3 Mean Corpuscular Hemoglobin 27.7 L Mean Corpuscular Hemoglobin Concent 32.8 Red Cell Distribution Width 15.9 H Platelet Count 225 Mean Platelet Volume 8.7 Neutrophils % 79.0 H Lymphocytes % 14.1 L Monocytes % 4.1 Eosinophils % 0.6 Basophils % 0.5 Nucleated Red Blood Cells % 0.0 Neutrophils # 5.1 Lymphocytes # 0.9 Monocytes # 0.3 Eosinophils # 0.0 Basophils # 0.0 Nucleated Red Blood Cells # 0.0 Sodium Level 138 Potassium Level 3.4 L Chloride Level 113 H Carbon Dioxide Level 22 Anion Gap 6 L Blood Urea Nitrogen 9 Creatinine 0.41 L Glucose Level 76 Calcium Level 7.3 L Phosphorus Level 3.5 Magnesium Level 2.1 Thyroid Stimulating Hormone (TSH) 2.780 Random Cortisol 25.6 Medications Medications Current Medications Ondansetron HCl (Zofran Inj) 4 mg Q6H PRN IV NAUSEA AND/OR VOMITING; Start at 16:00 Acetaminophen (Tylenol Tab) 650 mg Q6H PRN PO PAIN LEVEL 1-3 OR FEVER; Start at 16:00 Acetaminophen/ Hydrocodone Bitart (Irwin (5/325)) 1 tab Q6H PRN PO MODERATE PAIN LEVEL 4-6 Last administered on 11/14/16 20:22; Admin Dose 1 TAB; Start at 16:00 Magnesium Hydroxide (Milk Of Mag) 30 ml DAILY PRN PO CONSTIPATION; Start at 16:00 Sodium Biphosphate/ Sodium Phosphate (Fleet Enema) 133 ml DAILY PRN VT CONSTIPATION; Start 11/11/16 at 16:00 Lorazepam (Ativan) 0.5 mg Q6H PRN IV ANXIETY; Start 11/11/16 at 16:00 Hydralazine HCl (Apresoline) 10 mg Q6H PRN IV ELEVATED BLOOD PRESSURE; Start at 16:00 Nitroglycerin (Nitroglycerin (Sl Tab) 0.4 Mg) 1 tab Q5M PRN SL ANGINA Last administered on 11/11/16 23:25; Admin Dose 1 TAB; Start 11/11/16 at 16:00 Efavirenz (Sustiva) 600 mg DAILY PO Last administered on 11/26/16 09:25; Admin Dose 600 MG; Start 11/12/16 at 09:00 Emtricitabine/ Tenofovir (Truvada) 1 tab DAILY PO Last administered on 09:06; Admin Dose 1 TAB; Start 11/12/16 at 09:00 Sucralfate (Carafate) 1 gm QID PO Last administered on 11/26/16 09:06; Admin Dose 1 GM; Start 11/11/16 at 17:00 Valganciclovir (Valcyte) 450 mg Q12 PO Last administered on 11/26/16 09:06; Admin Dose 450 MG; Start 11/11/16 at 21:00 Collagenase (Santyl) 1 applic DAILY TOP Last administered on 11/24/16 10:01; Admin Dose 1 APPLIC; Start 11/12/16 at 13:00 Collagenase (Santyl) 1 applic PRN PRN TOP WOUND CARE; Start 11/12/16 at 12:00 Mesalamine (Delzicol Dr) 800 mg QID PO Last administered on 11/25/16 23:47; Admin Dose 800 MG; Start 11/12/16 at 21:00 Vancomycin HCl (Vancomycin Oral Syringe) 250 mg Q6 PO Last administered on 06:48; Admin Dose 250 MG; Start 11/12/16 at 19:30 Fluconazole (Diflucan) 100 mg DAILY PO Last administered on 11/26/16 09:06; Admin Dose 100 MG; Start 11/13/16 at 09:00 Lactobacillus Acidophilus (Florajen3 Capsule) 1 each BID PO Last administered on 11/26/16 09:06; Admin Dose 1 EACH; Start 11/13/16 at 21:00 Acetaminophen/ Hydrocodone Bitart (Irwin (5/325)) 1 tab Q4H PRN PO severe pain Last administered on 11/14/16 08:32; Admin Dose 1 TAB; Start 11/13/16 at 20:30 Morphine Sulfate (morphine) 2 mg Q4H PRN IV SEVERE PAIN LEVEL 7-10 Last administered on 11/23/16 21:53; Admin Dose 2 MG; Start 11/14/16 at 14:15 Docusate Sodium (Colace) 100 mg Q12 PO Last administered on 11/26/16 09:06; Admin Dose 100 MG; Start 11/17/16 at 11:00 Mirtazapine (Remeron) 7.5 mg HS PO Last administered on 11/25/16 23:49; Admin Dose 7.5 MG; Start 11/17/16 at 21:00 Pantoprazole (Protonix Iv) 40 mg BID@18 IV Last administered on 11/26/16 06: 48; Admin Dose 40 MG; Start 11/19/16 at 18:00 Potassium Chloride (Potassium Chloride Pwd/Soln) 40 meq BID PO Last administered on 11/26/16 09:07; Admin Dose 40 MEQ; Start 11/25/16 at 09:00 Trimethoprim/ Sulfamethoxazole (Bactrim (Ds)) 1 tab DAILY PO Last administered on 11/26/16 09:06; Admin Dose 1 TAB; Start 11/26/16 at 09:00 Metoclopramide HCl 5 mg 5 mg Q8 IV Last administered on 11/26/16 06:48; Admin Dose 5 MG; Start 11/25/16 at 20:00 Dextrose/Sodium Chloride 1,000 ml @ 40 mls/hr Q24H IV Last administered on 11/25 21:40; Admin Dose 40 MLS/HR; Start 11/25/16 at 17:00 Levetiracetam (Keppra 500 Mg/ 100ml (Pmx)) 100 ml @ 400 mls/hr Q12 IVPB Last administered on 11/26/16 09:09; Admin Dose 400 MLS/HR; Start 11/25/16 at 22:30 CHANTELL SULTANA Nov 26, 2016 11:14
--- NOTE | 2016-11-26 12:20 | PN ---
Date/Time of Note Date/Time of Note DATE: 11/25/16 TIME: 12:18 Assessment/Plan Lines/Catheters IV Catheter Type (from [facility]): PICC Line Hughes in Place (from [facility]): Yes Assessment/Plan Chief Complaint/Hosp Course 1. Right lower quadrant serous fluid leak through a pinpoint had possible previous site of femoral access attempts. Differential diagnosis includes peritoneal fluid versus urine versus other. CT noted. -Pressure dressing 2. Recent rectal bleeding with hemorrhagic shock & Anemia s/p transfusions -Monitor closely -PPIs and Carafate -Optimize medical status. 3. HIV positive -Continue medications 4. UTI with E. coli and Proteus -Antibiotics 5. Multiple chronic wounds -Local care -Nutrition optimization -Vitamin C 6. History of polysubstance abuse including tobacco -Encourage cessation 7. Psychiatric disorder with depression -Medical and psychiatric optimization 8. Severe protein calorie malnutrition and hypoalbuminemia -Encourage nutritional optimization Thank you, Late entry 11/25 Problems: Subjective 24 Hr Interval Summary Transferred to ICU 2nd mental status change. No fevers or chills. No nausea vomiting. No chest pain or shortness of breath. No cough. No seizure. No blood per mouth or rectum. No dysuria Exam/Review of Systems Vital Signs Vitals Vital Signs Date Time Temp Pulse Resp B/P Pulse Ox O2 Delivery O2 Flow Rate FiO2 11/26/16 12:00 97.8 25 136/94 100 Room Air 11/26/16 12:00 94 11/26/16 10:17 21 11/26/16 08:00 2.0 Intake and Output 11/25/16 11/25/16 11/26/16 15:00 23:00 07:00 Intake Total 300 ml 420 ml Output Total 700 ml 325 ml 275 ml Balance -700 ml -25 ml 145 ml Exam Free Text/Dictation Constitutional: drowsy, No distress Psych: flat mood/affect, No anxiety Head: atraumatic, normocephalic Eyes: EOMI, PERRL, nl conjunctiva ENMT: mucosa pink and moist, nl external ears & nose Neck: non-tender, supple Respiratory: normal air movement, No congested cough, No labored breathing Cardiovascular: No edema, No regular rate and rhythm Gastrointestinal: non-tender, soft, No rebound or guarding Musculoskeletal: nl extremities to inspection, No joint tenderness Extremities: normal pulses, No calf tenderness, No cyanosis Neurological: nl mental status, nl speech Skin: nl turgor, No diaphoresis, No rash or lesions Lymph: nl lymph nodes Results Result Diagram: 11/26/16 0605 11/26/16 0605 GEMA HUITRON MD Nov 26, 2016 12:20
--- NOTE | 2016-11-26 12:21 | PN ---
Date/Time of Note Date/Time of Note DATE: 11/26/16 TIME: 12:20 Assessment/Plan Lines/Catheters IV Catheter Type (from [facility]): PICC Line Hughes in Place (from [facility]): Yes Assessment/Plan Chief Complaint/Hosp Course 1. Right lower quadrant serous fluid leak through a pinpoint had possible previous site of femoral access attempts. Differential diagnosis includes peritoneal fluid versus urine versus other. CT noted. -Pressure dressing 2. Recent rectal bleeding with hemorrhagic shock & Anemia s/p transfusions -Monitor closely -PPIs and Carafate -Optimize medical status. 3. HIV positive -Continue medications 4. UTI with E. coli and Proteus -Antibiotics 5. Multiple chronic wounds -Local care -Nutrition optimization -Vitamin C 6. History of polysubstance abuse including tobacco -Encourage cessation 7. Psychiatric disorder with depression -Medical and psychiatric optimization 8. Severe protein calorie malnutrition and hypoalbuminemia -Encourage nutritional optimization Thank you, Problems: Subjective 24 Hr Interval Summary No fevers or chills. No nausea vomiting. No chest pain or shortness of breath. No cough. No seizure. No blood per mouth or rectum. No dysuria Exam/Review of Systems Vital Signs Vitals Vital Signs Date Time Temp Pulse Resp B/P Pulse Ox O2 Delivery O2 Flow Rate FiO2 11/26/16 12:00 97.8 25 136/94 100 Room Air 11/26/16 12:00 94 11/26/16 10:17 21 11/26/16 08:00 2.0 Intake and Output 11/25/16 11/25/16 11/26/16 15:00 23:00 07:00 Intake Total 300 ml 420 ml Output Total 700 ml 325 ml 275 ml Balance -700 ml -25 ml 145 ml Exam Free Text/Dictation Constitutional: drowsy, No distress Psych: flat mood/affect, No anxiety Head: atraumatic, normocephalic Eyes: EOMI, PERRL, nl conjunctiva ENMT: mucosa pink and moist, nl external ears & nose Neck: non-tender, supple Respiratory: normal air movement, No congested cough, No labored breathing Cardiovascular: No edema, No regular rate and rhythm Gastrointestinal: non-tender, soft, No rebound or guarding Musculoskeletal: nl extremities to inspection, No joint tenderness Extremities: normal pulses, No calf tenderness, No cyanosis Neurological: nl mental status, nl speech Skin: nl turgor, No diaphoresis, No rash or lesions Lymph: nl lymph nodes Results Result Diagram: 11/26/1605 11/26/16 0605 GEMA HUITRON MD Nov 26, 2016 12:21
[2016-11-26] MEDS ORDERED: POTASSIUM CHLORIDE 20 MEQ POWDER FOR ORAL SOLN PO ONE (12:30)
--- NOTE | 2016-11-26 12:43 | PN ---
DATE: 11/26/2016 SUBJECTIVE: No events overnight. The patient is more awake, lying comfortably in bed. She is afeb rile. Chest x-ray from yesterday revealed pneumonia. The patient was started on cefepime this morn and had been seen by Dr. Haley in pulmonary consultation. WBC today 6.4, H and H 9 and 27.4, platelets 225, neutrophils 79. BUN 9, creatinine 0.41. MICROBIOLOGY: Repeat urine culture from yesterday, preliminary negative. Blood cultures pending. Nares swab came back negative for MRSA. INDWELLINGS: The patient has an NG tube, Hughes catheter, and PICC line placed on November 12. ANTIMICROBIALS: The patient is on: 1. Bactrim for PCP prophylaxis. 2. Cefepime. 3. Fluconazole. 4. Oral vancomycin. 5. Truvada. 6. Sustiva. 7. Valcyte. PHYSICAL EXAMINATION: GENERAL: This is a chronically ill-appearing, middle-aged white woman who is awake, very sluggish a nd confused. The patient is in no distress. HEENT: Head: Atraumatic, normocephalic. Sclerae anicteric. Buccal mucosa dry. The patient has f acial edema. NECK: Supple, trachea midline. CHEST: Rise symmetrical. Breath sounds clear, diminished to bases. HEART: S1, S2. ABDOMEN: Soft, bowel sounds present. EXTREMITIES: Without cyanosis. ASSESSMENT: 1. Acute encephalopathy, likely toxic metabolic, possible postictal as per EEG report, neurology on case. 2. Healthcare-associated pneumonia, possibly aspiration, restarted on antibiotics. 3. Human immunodeficiency virus, questionable acquired immunodeficiency syndrome, remains on approp riate coverage. 4. Multiple chronic wounds. 5. Status post urinary tract infection. 6. Anemia, status post gastrointestinal bleeding and possible colitis. PLAN: Patient remains hemodynamically stable. Continue present care. Await for repeat blood cultu res. Follow recommendations of consultants. Follow repeat CD4 count. Dictated By: AGUILA BURGOS ONCOLOGY REP SPECIALIST for GINNY PIERSON/SHILPA Conf#: [id number] DID#: [id number]
[2016-11-26] MEDS: CEFEPIME 1GM/50 ML (PMX) 50 ML IVPB SCH ×2 (13:19→21:33)
--- NOTE | 2016-11-26 13:30 | PN ---
Date/Time of Note Date/Time of Note DATE: 11/26/16 TIME: 13:26 Assessment/Plan VTE Prophylaxis VTE Prophylaxis Intervention: LMWH Lines/Catheters IV Catheter Type (from Nrs): PICC Line Central line still needed: Yes (iv access) Urinary Cath still in place: Yes Reason Cath still needed: skin wounds contaminated by urine Assessment/Plan Chief Complaint/Hosp Course S: 11/24 Feels good. Tolerating diet. No n/v/d. No further incontinence apparently. Still requiring care for ascitic fluid leak. 11/25: Events noted. Had an event of LOC/altered mental status yesterday evening. Witnessed seizure this am. 11/26: Improved, follows one-step commands. No further seizures. Cough? O:Vss PE No pallor droop Reg Clear Bs dimin; appears mildly distended, nt. No r/r/g No edema; hypotonia noted Neuro: Nonfocal A/P 1. Shock, hemorrhagic, resolved. Stable. 2. Ac blood loss anemia secondary to colitis stable 3. Severe erosive esophagitis/PPI; decrease Reglan due to altered mental status risk 4. [place] ulcerative colitis, no evidence of C diff. Cont antibiotics; dc home when ok w GI and ID. 5. 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 conservative care. Decreased IVFs. 6. Chr HIV 7. Substance abuse 8. Depression 9. Ac cystitis 10. Severe hypoalbuminemia; somewhat improved consider Megace 11. Dyslipidemia 12. Hiatal hernia 13. Prediabetes 14. Subclinical hyperthyroidism 15. Syncope due to #1 resolved 16. Single episode seizure, lytes vs hypoxia related. Doubt encephalitis. ns changed to 1/2ns. EEG done. Cont Keppra; Check MRI. 17. Aspiration pneumonia/ HAP? Cont antibiotics. ST eval. Problems: Exam/Review of Systems Vital Signs Vitals Vital Signs Date Time Temp Pulse Resp B/P Pulse Ox O2 Delivery O2 Flow Rate FiO2 11/26/16 12:00 97.8 25 136/94 100 Room Air 11/26/16 12:00 98 11/26/16 10:17 21 11/26/16 08:00 2.0 Intake and Output 11/25/16 11/25/16 11/26/16 15:00 23:00 07:00 Intake Total 300 ml 420 ml Output Total 700 ml 325 ml 275 ml Balance -700 ml -25 ml 145 ml Results Result Diagram: 11/26/16 0605 11/26/16 0605 Results 24 hrs Laboratory Tests Test 11/25/16 17:00 11/26/16 06:05 Urine Eosinophils % 0.0 Urine Random Sodium 131 H White Blood Count 6.4 Red Blood Count 3.25 L Hemoglobin 9.0 L Hematocrit 27.4 L Mean Corpuscular Volume 84.3 Mean Corpuscular Hemoglobin 27.7 L Mean Corpuscular Hemoglobin Concent 32.8 Red Cell Distribution Width 15.9 H Platelet Count 225 Mean Platelet Volume 8.7 Neutrophils % 79.0 H Lymphocytes % 14.1 L Monocytes % 4.1 Eosinophils % 0.6 Basophils % 0.5 Nucleated Red Blood Cells % 0.0 Neutrophils # 5.1 Lymphocytes # 0.9 Monocytes # 0.3 Eosinophils # 0.0 Basophils # 0.0 Nucleated Red Blood Cells # 0.0 Sodium Level 138 Potassium Level 3.4 L Chloride Level 113 H Carbon Dioxide Level 22 Anion Gap 6 L Blood Urea Nitrogen 9 Creatinine 0.41 L Glucose Level 76 Calcium Level 7.3 L Phosphorus Level 3.5 Magnesium Level 2.1 Thyroid Stimulating Hormone (TSH) 2.780 Random Cortisol 25.6 Medications Medications Current Medications Ondansetron HCl (Zofran Inj) 4 mg Q6H PRN IV NAUSEA AND/OR VOMITING; Start at 16:00 Acetaminophen (Tylenol Tab) 650 mg Q6H PRN PO PAIN LEVEL 1-3 OR FEVER; Start at 16:00 Acetaminophen/ Hydrocodone Bitart (Victor (5/325)) 1 tab Q6H PRN PO MODERATE PAIN LEVEL 4-6 Last administered on 11/14/16t 20:22; Admin Dose 1 TAB; Start at 16:00 Magnesium Hydroxide (Milk Of Mag) 30 ml DAILY PRN PO CONSTIPATION; Start at 16:00 Sodium Biphosphate/ Sodium Phosphate (Fleet Enema) 133 ml DAILY PRN [place] CONSTIPATION; Start 11/11/16 at 16:00 Lorazepam (Ativan) 0.5 mg Q6H PRN IV ANXIETY; Start 11/11/16 at 16:00 Hydralazine HCl (Apresoline) 10 mg Q6H PRN IV ELEVATED BLOOD PRESSURE; Start at 16:00 Nitroglycerin (Nitroglycerin (Sl Tab) 0.4 Mg) 1 tab Q5M PRN SL ANGINA Last administered on 11/11/16 23:25; Admin Dose 1 TAB; Start 11/11/16 at 16:00 Efavirenz (Sustiva) 600 mg DAILY PO Last administered on 11/26/16 09:25; Admin Dose 600 MG; Start 11/12/16 at 09:00 Emtricitabine/ Tenofovir (Truvada) 1 tab DAILY PO Last administered on 09:06; Admin Dose 1 TAB; Start 11/12/16 at 09:00 Sucralfate (Carafate) 1 gm QID PO Last administered on 11/26/16 09:06; Admin Dose 1 GM; Start 11/11/16 at 17:00 Valganciclovir (Valcyte) 450 mg Q12 PO Last administered on 11/26/16 09:06; Admin Dose 450 MG; Start 11/11/16 at 21:00 Collagenase (Santyl) 1 applic DAILY TOP Last administered on 11/24/16 10:01; Admin Dose 1 APPLIC; Start 11/12/16 at 13:00 Collagenase (Santyl) 1 applic PRN PRN TOP WOUND CARE; Start 11/12/16 at 12:00 Mesalamine (Delzicol Dr) 800 mg QID PO Last administered on 11/25/16 23:47; Admin Dose 800 MG; Start 11/12/16 at 21:00 Vancomycin HCl (Vancomycin Oral Syringe) 250 mg Q6 PO Last administered on 11:49; Admin Dose 250 MG; Start 11/12/16 at 19:30 Fluconazole (Diflucan) 100 mg DAILY PO Last administered on 11/26/16 09:06; Admin Dose 100 MG; Start 11/13/16 at 09:00 Lactobacillus Acidophilus (Florajen3 Capsule) 1 each BID PO Last administered on 11/26/16 09:06; Admin Dose 1 EACH; Start 11/13/16 at 21:00 Acetaminophen/ Hydrocodone Bitart (Victor (5/325)) 1 tab Q4H PRN PO severe pain Last administered on 11/14/16 08:32; Admin Dose 1 TAB; Start 11/13/16 at 20:30 Morphine Sulfate (morphine) 2 mg Q4H PRN IV SEVERE PAIN LEVEL 7-10 Last administered on 11/23/16 21:53; Admin Dose 2 MG; Start 11/14/16 at 14:15 Docusate Sodium (Colace) 100 mg Q12 PO Last administered on 11/26/16 09:06; Admin Dose 100 MG; Start 11/17/16 at 11:00 Mirtazapine (Remeron) 7.5 mg HS PO Last administered on 11/25/16 23:49; Admin Dose 7.5 MG; Start 11/17/16 at 21:00 Pantoprazole (Protonix Iv) 40 mg BID@06,18 IV Last administered on 11/26/16 06: 48; Admin Dose 40 MG; Start 11/19/16 at 18:00 Potassium Chloride (Potassium Chloride Pwd/Soln) 40 meq BID PO Last administered on 11/26/16 09:07; Admin Dose 40 MEQ; Start 11/25/16 at 09:00 Trimethoprim/ Sulfamethoxazole (Bactrim (Ds)) 1 tab DAILY PO Last administered on 11/26/16 09:06; Admin Dose 1 TAB; Start 11/26/16 at 09:00 Metoclopramide HCl 5 mg 5 mg Q8 IV Last administered on 11/26/16 06:48; Admin Dose 5 MG; Start 11/25/16 at 20:00 Dextrose/Sodium Chloride 1,000 ml @ 40 mls/hr Q24H IV Last administered on 11/25 21:40; Admin Dose 40 MLS/HR; Start 11/25/16 at 17:00 Levetiracetam 100 ml @ 400 mls/hr Q12 IVPB Last administered on 11/26/16 09:09 ; Admin Dose 400 MLS/HR; Start 11/25/16 at 22:30 Cefepime HCl (Maxipime 1gm/50 ml (Pmx)) 50 ml @ 100 mls/hr Q12 IVPB Last administered on 11/26/16 13:19; Admin Dose 100 MLS/HR; Start 11/26/16 at 11:30 VALERIE LOBO MD Nov 26, 2016 13:30
--- NOTE | 2016-11-26 13:45 | RADRPT ---
PROCEDURE: MRI Brain without and with contrast. CLINICAL INDICATION: GI bleed, HIV, status post seizure TECHNIQUE: Multiplanar MRI of the brain without and with contrast was performed on a 3.0 T scanner with the following sequences obtained: T1-weighted, T2-weighted/FLAIR, diffusion weighted (with ADC map), GRE, postcontrast T1-weighted. 10 cc Magnevist intravenous contrast was administered. COMPARISON: CT brain 11/25/2016 FINDINGS: No acute/recent ischemic infarction or intracranial hemorrhage / blood degradation products are iden tified. No extra-axial fluid collection is seen. No intracranial mass lesion is identified. There is no mass effect. No midline shift is identified. The ventricles and sulci are mildly enlarged, compatible with generalized volume loss. Mild areas of increased T2 / FLAIR signal intensity are present in the periventricular and deep whit e matter, nonspecific but likely related to chronic small vessel ischemic changes. No abnormal pare nchymal, leptomeningeal or dural enhancement is identified. Flow voids are identified in the proximal intracranial arteries and dural sinuses suggesting patency . There is interval right facial - periorbital soft tissue swelling extending into the right frontal s calp. There is interval partial bilateral ethmoid air cell opacification, partial right maxillary s inus opacification with mucosal thickening and fluid level, and partial right sphenoid sinus opacifi cation with suggestion of fluid level seen. A small left maxillary sinus mucous retention cyst is a lso seen. There is now right greater left mastoid air cell opacification. . IMPRESSION: 1. No evidence of acute intracranial pathology, or intracranial mass. 2. Mild generalized volume loss, with mild chronic small vessel ischemic changes. 3. Interval right facial/periorbital and frontal scalp swelling, and paranasal sinus and mastoid di sease described above. RPTAT: VV .Sal Mehta MD, Date Time Electronically viewed and signed by .Sal Mehta MD, on 11/26/2016 13:45 .O/
--- NOTE | 2016-11-26 14:50 | PN ---
Date/Time of Note Date/Time of Note DATE: 11/26/16 TIME: 14:46 Assessment/Plan VTE Prophylaxis VTE Prophylaxis Intervention: SCD's Lines/Catheters IV Catheter Type (from Nrs): PICC Line Central line still needed: Yes Urinary Cath still in place: Yes Reason Cath still needed: urinary retention Assessment/Plan Assessment/Plan Assessment * Anemia EGD 11/12/2016 Severe ulcerated esophagitis/Inocencia esophagitis Colonoscopy 11/12/2016 [place] ulcerative colitis. Moderate sized internal hemorrhoids * HIV disease. * Anasarca/small amount of ascites * Probably ascitic fluid leak right lower quadrant * Malnutrition * UTI * Polysubstance abuse * History of psychiatric illness Plan * Continue present management * case was discussed with Subjective 24 Hr Interval Summary Free Text/Dictation * Course reviewed with RN * patient seen and examined * No complaints with minimal drainage on fistula site Exam/Review of Systems Vital Signs Vitals Vital Signs Date Time Temp Pulse Resp B/P Pulse Ox O2 Delivery O2 Flow Rate FiO2 11/26/16 12:00 97.8 25 136/94 100 Room Air 11/26/16 12:00 98 11/26/16 10:17 21 11/26/16 08:00 2.0 Intake and Output 11/25/16 11/25/16 11/26/16 15:00 23:00 07:00 Intake Total 300 ml 420 ml Output Total 700 ml 325 ml 275 ml Balance -700 ml -25 ml 145 ml Exam Constitutional: alert, frail Neck: supple Respiratory: diminished breath sounds Cardiovascular: nl pulses, regular rate and rhythm Gastrointestinal: distended, other (fluid draining on fistula site), soft Extremities: normal pulses Skin: nl turgor Results Result Diagram: 11/26/16 0611/26/16 06 Results 24 hrs Laboratory Tests Test 11/25/16 17:00 11/26/16 06:05 Urine Eosinophils % 0.0 Urine Random Sodium 131 H White Blood Count 6.4 Red Blood Count 3.25 L Hemoglobin 9.0 L Hematocrit 27.4 L Mean Corpuscular Volume 84.3 Mean Corpuscular Hemoglobin 27.7 L Mean Corpuscular Hemoglobin Concent 32.8 Red Cell Distribution Width 15.9 H Platelet Count 225 Mean Platelet Volume 8.7 Neutrophils % 79.0 H Lymphocytes % 14.1 L Monocytes % 4.1 Eosinophils % 0.6 Basophils % 0.5 Nucleated Red Blood Cells % 0.0 Neutrophils # 5.1 Lymphocytes # 0.9 Monocytes # 0.3 Eosinophils # 0.0 Basophils # 0.0 Nucleated Red Blood Cells # 0.0 Sodium Level 138 Potassium Level 3.4 L Chloride Level 113 H Carbon Dioxide Level 22 Anion Gap 6 L Blood Urea Nitrogen 9 Creatinine 0.41 L Glucose Level 76 Calcium Level 7.3 L Phosphorus Level 3.5 Magnesium Level 2.1 Thyroid Stimulating Hormone (TSH) 2.780 Random Cortisol 25.6 Medications Medications Current Medications Ondansetron HCl (Zofran Inj) 4 mg Q6H PRN IV NAUSEA AND/OR VOMITING; Start at 16:00 Acetaminophen (Tylenol Tab) 650 mg Q6H PRN PO PAIN LEVEL 1-3 OR FEVER; Start at 16:00 Acetaminophen/ Hydrocodone Bitart ([place] (5/325)) 1 tab Q6H PRN PO MODERATE PAIN LEVEL 4-6 Last administered on 11/14/16 20:22; Admin Dose 1 TAB; Start at 16:00 Magnesium Hydroxide (Milk Of Mag) 30 ml DAILY PRN PO CONSTIPATION; Start at 16:00 Sodium Biphosphate/ Sodium Phosphate (Fleet Enema) 133 ml DAILY PRN [place] CONSTIPATION; Start 11/11/16 at 16:00 Lorazepam (Ativan) 0.5 mg Q6H PRN IV ANXIETY; Start 11/11/16 at 16:00 Hydralazine HCl (Apresoline) 10 mg Q6H PRN IV ELEVATED BLOOD PRESSURE; Start at 16:00 Nitroglycerin (Nitroglycerin (Sl Tab) 0.4 Mg) 1 tab Q5M PRN SL ANGINA Last administered on 11/11/16 23:25; Admin Dose 1 TAB; Start 11/11/16 at 16:00 Efavirenz (Sustiva) 600 mg DAILY PO Last administered on 11/26/16 09:25; Admin Dose 600 MG; Start 11/12/16 at 09:00 Emtricitabine/ Tenofovir (Truvada) 1 tab DAILY PO Last administered on 09:06; Admin Dose 1 TAB; Start 11/12/16 at 09:00 Sucralfate (Carafate) 1 gm QID PO Last administered on 11/26/16 09:06; Admin Dose 1 GM; Start 11/11/16 at 17:00 Valganciclovir (Valcyte) 450 mg Q12 PO Last administered on 11/26/16 09:06; Admin Dose 450 MG; Start 11/11/16 at 21:00 Collagenase (Santyl) 1 applic DAILY TOP Last administered on 11/24/16 10:01; Admin Dose 1 APPLIC; Start 11/12/16 at 13:00 Collagenase (Santyl) 1 applic PRN PRN TOP WOUND CARE; Start 11/12/16 at 12:00 Mesalamine (Delzicol Dr) 800 mg QID PO Last administered on 11/25/16 23:47; Admin Dose 800 MG; Start 11/12/16 at 21:00 Vancomycin HCl (Vancomycin Oral Syringe) 250 mg Q6 PO Last administered on 11:49; Admin Dose 250 MG; Start 11/12/16 at 19:30 Fluconazole (Diflucan) 100 mg DAILY PO Last administered on 11/26/16 09:06; Admin Dose 100 MG; Start 11/13/16 at 09:00 Lactobacillus Acidophilus (Florajen3 Capsule) 1 each BID PO Last administered on 11/26/16 09:06; Admin Dose 1 EACH; Start 11/13/16 at 21:00 Acetaminophen/ Hydrocodone Bitart ([place] (5/325)) 1 tab Q4H PRN PO severe pain Last administered on 11/14/16 08:32; Admin Dose 1 TAB; Start 11/13/16 at 20:30 Morphine Sulfate (morphine) 2 mg Q4H PRN IV SEVERE PAIN LEVEL 7-10 Last administered on 11/23/16 21:53; Admin Dose 2 MG; Start 11/14/16 at 14:15 Docusate Sodium (Colace) 100 mg Q12 PO Last administered on 11/26/16 09:06; Admin Dose 100 MG; Start 11/17/16 at 11:00 Mirtazapine (Remeron) 7.5 mg HS PO Last administered on 11/25/16 23:49; Admin Dose 7.5 MG; Start 11/17/16 at 21:00 Pantoprazole (Protonix Iv) 40 mg BID@,18 IV Last administered on 11/26/16 06: 48; Admin Dose 40 MG; Start 11/19/16 at 18:00 Potassium Chloride (Potassium Chloride Pwd/Soln) 40 meq BID PO Last administered on 11/26/16 09:07; Admin Dose 40 MEQ; Start 11/25/16 at 09:00 Trimethoprim/ Sulfamethoxazole (Bactrim (Ds)) 1 tab DAILY PO Last administered on 11/26/16 09:06; Admin Dose 1 TAB; Start 11/26/16 at 09:00 Metoclopramide HCl 5 mg 5 mg Q8 IV Last administered on 11/26/16 13:38; Admin Dose 5 MG; Start 11/25/16 at 20:00 Dextrose/Sodium Chloride 1,000 ml @ 40 mls/hr Q24H IV Last administered on 11/25 21:40; Admin Dose 40 MLS/HR; Start 11/25/16 at 17:00 Levetiracetam 100 ml @ 400 mls/hr Q12 IVPB Last administered on 11/26/16 09:09 ; Admin Dose 400 MLS/HR; Start 11/25/16 at 22:30 Cefepime HCl (Maxipime 1gm/50 ml (Pmx)) 50 ml @ 100 mls/hr Q12 IVPB Last administered on 11/26/16 13:19; Admin Dose 100 MLS/HR; Start 11/26/16 at 11:30 GUCCI STROUD NP Nov 26, 2016 14:50
[2016-11-26] MEDS ORDERED: DIPHENHYDRAMINE 50 MG INJ IM PRN (15:30)
--- NOTE | 2016-11-26 16:09 | CONS ---
Date/Time of Note Date/Time of Note DATE: 11/26/16 TIME: 16:07 Assessment/Plan Assessment/Plan Additional Assessment/Plan 1. Severe hyperchloremia with a chloride of 117, unclear etiology. 2. Acute encephalopathy. 3. Status post hemorrhagic shock. 4. Human immunodeficiency virus positive with CD4 count of 157. 5. Positive colitis. 6. Multiple decubitus ulcers. 7. Status post urinary tract infection and sepsis on admission. 8. Depression. PLAN: continue IVF D51/4NS at 60 cc/ hr BP stable afebrile Cl slightly better, K low, already replaced for today will follow up Consultation Date/Type/Reason Admit Date/Time November 11, 2016 at 15:19 Initial Consult Date 11/26/16 Type of Consultation: NEPHROLOGY Referring Provider: JESUS RUIZ 24 HR Interval Summary Free Text/Dictation Cl slightly improved, K low, BP stable Exam/Review of Systems Vital Signs Vitals Vital Signs Date Time Temp Pulse Resp B/P Pulse Ox O2 Delivery O2 Flow Rate FiO2 11/26/16 15:00 97 18 118/82 100 Room Air 11/26/16 12:00 97.8 11/26/16 10:17 21 11/26/16 08:00 2.0 Intake and Output 11/25/16 11/25/16 11/26/16 14:59 22:59 06:59 Intake Total 160 ml 480 ml Output Total 700 ml 300 ml 300 ml Balance -700 ml -140 ml 180 ml Exam Constitutional: alert Psych: no complaints Head: normocephalic Neck: supple Respiratory: clear to auscultation Cardiovascular: regular rate and rhythm Gastrointestinal: soft Neurological: [employer] II-XII intact Results Result Diagram: 11/26/16 0611/26/16 06 Results 24 hrs Laboratory Tests Test 11/25/16 17:00 11/26/16 06:05 Urine Eosinophils % 0.0 Urine Random Sodium 131 H White Blood Count 6.4 Red Blood Count 3.25 L Hemoglobin 9.0 L Hematocrit 27.4 L Mean Corpuscular Volume 84.3 Mean Corpuscular Hemoglobin 27.7 L Mean Corpuscular Hemoglobin Concent 32.8 Red Cell Distribution Width 15.9 H Platelet Count 225 Mean Platelet Volume 8.7 Neutrophils % 79.0 H Lymphocytes % 14.1 L Monocytes % 4.1 Eosinophils % 0.6 Basophils % 0.5 Nucleated Red Blood Cells % 0.0 Neutrophils # 5.1 Lymphocytes # 0.9 Monocytes # 0.3 Eosinophils # 0.0 Basophils # 0.0 Nucleated Red Blood Cells # 0.0 Sodium Level 138 Potassium Level 3.4 L Chloride Level 113 H Carbon Dioxide Level 22 Anion Gap 6 L Blood Urea Nitrogen 9 Creatinine 0.41 L Glucose Level 76 Calcium Level 7.3 L Phosphorus Level 3.5 Magnesium Level 2.1 Thyroid Stimulating Hormone (TSH) 2.780 Random Cortisol 25.6 Medications Medications Current Medications Ondansetron HCl (Zofran Inj) 4 mg Q6H PRN IV NAUSEA AND/OR VOMITING; Start at 16:00 Acetaminophen (Tylenol Tab) 650 mg Q6H PRN PO PAIN LEVEL 1-3 OR FEVER; Start at 16:00 Magnesium Hydroxide (Milk Of Mag) 30 ml DAILY PRN PO CONSTIPATION; Start at 16:00 Sodium Biphosphate/ Sodium Phosphate (Fleet Enema) 133 ml DAILY PRN [place] CONSTIPATION; Start 11/11/16 at 16:00 Hydralazine HCl (Apresoline) 10 mg Q6H PRN IV ELEVATED BLOOD PRESSURE; Start at 16:00 Nitroglycerin (Nitroglycerin (Sl Tab) 0.4 Mg) 1 tab Q5M PRN SL ANGINA Last administered on 11/11/16 23:25; Admin Dose 1 TAB; Start 11/11/16 at 16:00 Efavirenz (Sustiva) 600 mg DAILY PO Last administered on 11/26/16 09:25; Admin Dose 600 MG; Start 11/12/16 at 09:00 Emtricitabine/ Tenofovir (Truvada) 1 tab DAILY PO Last administered on 09:06; Admin Dose 1 TAB; Start 11/12/16 at 09:00 Sucralfate (Carafate) 1 gm QID PO Last administered on 11/26/16 15:23; Admin Dose 1 GM; Start 11/11/16 at 17:00 Valganciclovir (Valcyte) 450 mg Q12 PO Last administered on 11/26/16 09:06; Admin Dose 450 MG; Start 11/11/16 at 21:00 Collagenase (Santyl) 1 applic DAILY TOP Last administered on 11/24/16 10:01; Admin Dose 1 APPLIC; Start 11/12/16 at 13:00 Collagenase (Santyl) 1 applic PRN PRN TOP WOUND CARE; Start 11/12/16 at 12:00 Mesalamine (Delzicol Dr) 800 mg QID PO Last administered on 11/25/16 23:47; Admin Dose 800 MG; Start 11/12/16 at 21:00 Vancomycin HCl (Vancomycin Oral Syringe) 250 mg Q6 PO Last administered on 11:49; Admin Dose 250 MG; Start 11/12/16 at 19:30 Fluconazole (Diflucan) 100 mg DAILY PO Last administered on 11/26/16 09:06; Admin Dose 100 MG; Start 11/13/16 at 09:00 Lactobacillus Acidophilus (Florajen3 Capsule) 1 each BID PO Last administered on 11/26/16 09:06; Admin Dose 1 EACH; Start 11/13/16 at 21:00 Docusate Sodium (Colace) 100 mg Q12 PO Last administered on 11/26/16 09:06; Admin Dose 100 MG; Start 11/17/16 at 11:00 Mirtazapine (Remeron) 7.5 mg HS PO Last administered on 11/25/16 23:49; Admin Dose 7.5 MG; Start 11/17/16 at 21:00 Pantoprazole (Protonix Iv) 40 mg BID@06,18 IV Last administered on 11/26/16 06: 48; Admin Dose 40 MG; Start 11/19/16 at 18:00 Potassium Chloride (Potassium Chloride Pwd/Soln) 40 meq BID PO Last administered on 11/26/16 09:07; Admin Dose 40 MEQ; Start 11/25/16 at 09:00 Trimethoprim/ Sulfamethoxazole (Bactrim (Ds)) 1 tab DAILY PO Last administered on 11/26/16 09:06; Admin Dose 1 TAB; Start 11/26/16 at 09:00 Metoclopramide HCl 5 mg 5 mg Q8 IV Last administered on 11/26/16 13:38; Admin Dose 5 MG; Start 11/25/16 at 20:00 Dextrose/Sodium Chloride 1,000 ml @ 40 mls/hr Q24H IV Last administered on 11/25 21:40; Admin Dose 40 MLS/HR; Start 11/25/16 at 17:00 Levetiracetam 100 ml @ 400 mls/hr Q12 IVPB Last administered on 11/26/16 09:09 ; Admin Dose 400 MLS/HR; Start 11/25/16 at 22:30 Cefepime HCl (Maxipime 1gm/50 ml (Pmx)) 50 ml @ 100 mls/hr Q12 IVPB Last administered on 11/26/16 13:19; Admin Dose 100 MLS/HR; Start 11/26/16 at 11:30 Ketorolac Tromethamine (Toradol) 15 mg Q6H PRN IV PAIN; Start 11/26/16 at 15:30 ; Stop 11/29/16 at 15:29 Diphenhydramine HCl (Benadryl) 25 mg Q6H PRN IM SLEEP; Start 11/26/16 at 15:30 ASHISH MENDOZA MD Nov 26, 2016 16:09
[2016-11-26] MEDS: DEXTROSE 5%-0.225% NACL 1,000 ML IV SCH (16:36)
--- NOTE | 2016-11-26 17:10 | CONS ---
DATE OF ADMISSION: 11/11/2016 DATE OF CONSULTATION: 11/26/2016 TYPE OF CONSULTATION: Palliative pain management. HISTORY OF PRESENT ILLNESS: Two issues here, pain management patient. When I saw her on medical greta or, she described generalized body aches and pains described as arms, legs, back, worse in her back but denies radiations to bilateral lower extremities or any warning signs, including pelvic anesthes ia, incontinence or recent febrile illness. She states that she was not taking any pain medication at home, but on further questioning, stated that she intermittently takes different opioids. It was clear that her story as it unfolds was changing each time. She describes her pain as severe. With her pain medications at home, states that she gets some relief with opioids, but is not clear which one she was taking. There was some reference to methadone at that time also, but again it is uncle ar whether or not she was in fact taking that medication. Denies nausea, vomiting constipating, itc kenia, mental cloudiness, wetting, fatigue, drowsiness associated with it. There is no history of pu rposeful over sedation, but it is unclear. My impressions are there were. She has negative mood ch anges. She generally appears to be depressed and withdrawn. She does not appear intoxicated. She is unkempt. There was no past medical history of recent motor vehicle accident. So far she has not asked for frequent early medication use or escalating doses. My impressions are that she does use pain medications and responds to situational stressors that is assisted with morphine. She denies r ecent use of heroin, but she does have a past medical history of illicit drug use, heroin primarily. She denies any recent alcohol consumption. She states she has recently kicked out her boyfriend kwame gomez was actively using heroin. She describes overall severity of her pain as moderate to severe. Jaye n level prior to admission prior to the time I saw her was 9. Worst pain level she states that she has is 10. CURRENT MEDICATIONS: Include low-dose of morphine which she states that she has only moderate relie f of her ongoing discomfort. Her pain does not appear to be as severe as what she describes. Physi reece functioning is severely impaired secondary to underlying major problems including HIV and wastin g syndrome. There are no family relationships to consider. Her family lives outside of this countr y and social relationships as above. Mood and sleeping patterns are significantly impaired secondar y to multiple serious major medical problems. In so far is palliative considerations, she does unde rstand the severity of her medical problems, she speaks for herself. SOCIAL HISTORY: Please refer to the above. She states she a poor quality of life secondary to soci al situation at home. She lives with friends. She has an understanding of her HIV status. She has understandable fears, concerns and worries. She has no particular role of spirituality in her life. Cultural issues and communication seems to be acceptable to her and her caregivers. PHYSICAL EXAMINATION: GENERAL: Shows an ill-appearing, frail female who is ashen-appearing on examination. HEENT: She is otherwise normocephalic and atraumatic. Anicteric, acyanotic. CHEST: Shows distant breath sounds, clear to auscultation on examination. No inspiratory, rales, r honchi, wheezing, or rubs. SOCIAL: As per history of present illness. FAMILY HISTORY: As per history of present illness. REVIEW OF SYSTEMS: A 12-point review of systems essentially unremarkable except which as above. LABORATORIES: Pertain to palliation of care including pain management. White blood cell count of 6 .4, hemoglobin 9.0, hematocrit 27.4, MCV of 84.3, platelet count 225,000. Chemistries: Serum sodiu m 138, potassium 3.4, chloride 113, bicarbonate 22, BUN of 9, creatinine 0.41. ASSESSMENT AND PLAN: A 41-year-old female, human immunodeficiency virus positive with past medical history of heroin use. She presented to [facility] significantly anemic. She req uired 4 units of packed red blood cells. There is a history that she had a witnessed seizure while hospitalized. She is being seen by Dr. Dale Mckoy and infectious disease as well as gastro enterology consultants. Other issues from a psychosocial standpoint from the last time she was hospitalized, she required mark vincent to [facility]pc unit for care and for safety issues. I believe it is in her interest to l ook into that once again. Her estimated prognosis is extremely poor as she has stopped her human im munodeficiency virus medications prior to admission at least before I interviewed her during the hospitalization. Her Palliative performance scale is 50%. Therefore, long-term prognosis is extr charlie poor. Insofar as pain management issues, I believe we should stop the opioids and just start her off on Toradol and discontinue any benzodiazepines. During my last visit with her, I have aske d the nurses not to administer any benzos or opioids. We will continue with that. Psychosocial iss ues have been addressed. Ethical issues, we should address her code status, and if this is not done during this hospitalization then she definitely needs to have a POLST addressed. Dictated By: IESHA MARTINEZ MD, LP/SHILPA Conf#: [id number] DID#: [id number]
--- NOTE | 2016-11-26 17:50 | RADRPT ---
Vent Rate: 106 bpm RR Interval: 0 msec OR Interval: 134 msec QRS Duration: 76 msec QT Interval: 358 msec QTC Interval: 475 msec P-R-T Metter: 66 - 71 - 76 degrees Sinus tachycardia Septal infarct , age undetermined Abnormal ECG Electronically Signed By: Stanislaw Pantoja [id number]
--- NOTE | 2016-11-26 20:57 | CONS ---
Date/Time of Note Date/Time of Note DATE: 11/26/16 TIME: 20:53 Consult Date/Type/Reason Admit Date/Time November 11, 2016 at 15:19 Initial Consult Date 11/26/16 Type of Consultation: neurology Ordering Provider: JESUS RUIZ Subjective no seizures, more awake today Objective Vital Signs Date Time Temp Pulse Resp B/P Pulse Ox O2 Delivery O2 Flow Rate FiO2 11/26/16 20:00 96 11/26/16 18:00 17 118/90 100 Room Air 11/26/16 16:00 97.9 11/26/16 10:17 21 11/26/16 08:00 2.0 Intake and Output 11/25/16 11/25/16 11/26/16 15:00 23:00 07:00 Intake Total 300 ml 420 ml Output Total 700 ml 325 ml 275 ml Balance -700 ml -25 ml 145 ml Results/Medications Result Diagram: 11/26/16 0605 11/26/16 0605 Results 24 hrs Laboratory Tests Test 11/26/16 06:05 White Blood Count 6.4 Red Blood Count 3.25 L Hemoglobin 9.0 L Hematocrit 27.4 L Mean Corpuscular Volume 84.3 Mean Corpuscular Hemoglobin 27.7 L Mean Corpuscular Hemoglobin Concent 32.8 Red Cell Distribution Width 15.9 H Platelet Count 225 Mean Platelet Volume 8.7 Neutrophils % 79.0 H Lymphocytes % 14.1 L Monocytes % 4.1 Eosinophils % 0.6 Basophils % 0.5 Nucleated Red Blood Cells % 0.0 Neutrophils # 5.1 Lymphocytes # 0.9 Monocytes # 0.3 Eosinophils # 0.0 Basophils # 0.0 Nucleated Red Blood Cells # 0.0 Sodium Level 138 Potassium Level 3.4 L Chloride Level 113 H Carbon Dioxide Level 22 Anion Gap 6 L Blood Urea Nitrogen 9 Creatinine 0.41 L Glucose Level 76 Calcium Level 7.3 L Phosphorus Level 3.5 Magnesium Level 2.1 Thyroid Stimulating Hormone (TSH) 2.780 Random Cortisol 25.6 Medications Current Medications Ondansetron HCl (Zofran Inj) 4 mg Q6H PRN IV NAUSEA AND/OR VOMITING; Start at 16:00 Acetaminophen (Tylenol Tab) 650 mg Q6H PRN PO PAIN LEVEL 1-3 OR FEVER; Start at 16:00 Magnesium Hydroxide (Milk Of Mag) 30 ml DAILY PRN PO CONSTIPATION; Start at 16:00 Sodium Biphosphate/ Sodium Phosphate (Fleet Enema) 133 ml DAILY PRN [place] CONSTIPATION; Start 11/11/16 at 16:00 Hydralazine HCl (Apresoline) 10 mg Q6H PRN IV ELEVATED BLOOD PRESSURE; Start at 16:00 Nitroglycerin (Nitroglycerin (Sl Tab) 0.4 Mg) 1 tab Q5M PRN SL ANGINA Last administered on 11/11/16 23:25; Admin Dose 1 TAB; Start 11/11/16 at 16:00 Efavirenz (Sustiva) 600 mg DAILY PO Last administered on 11/26/16 09:25; Admin Dose 600 MG; Start 11/12/16 at 09:00 Emtricitabine/ Tenofovir (Truvada) 1 tab DAILY PO Last administered on 09:06; Admin Dose 1 TAB; Start 11/12/16 at 09:00 Sucralfate (Carafate) 1 gm QID PO Last administered on 11/26/16 17:33; Admin Dose 1 GM; Start 11/11/16 at 17:00 Valganciclovir (Valcyte) 450 mg Q12 PO Last administered on 11/26/16 09:06; Admin Dose 450 MG; Start 11/11/16 at 21:00 Collagenase (Santyl) 1 applic DAILY TOP Last administered on 11/24/16 10:01; Admin Dose 1 APPLIC; Start 11/12/16 at 13:00 Collagenase (Santyl) 1 applic PRN PRN TOP WOUND CARE; Start 11/12/16 at 12:00 Mesalamine (Delzicol Dr) 800 mg QID PO Last administered on 11/26/16 17:33; Admin Dose 800 MG; Start 11/12/16 at 21:00 Vancomycin HCl (Vancomycin Oral Syringe) 250 mg Q6 PO Last administered on 17:33; Admin Dose 250 MG; Start 11/12/16 at 19:30 Fluconazole (Diflucan) 100 mg DAILY PO Last administered on 11/26/16 09:06; Admin Dose 100 MG; Start 11/13/16 at 09:00 Lactobacillus Acidophilus (Florajen3 Capsule) 1 each BID PO Last administered on 11/26/16 09:06; Admin Dose 1 EACH; Start 11/13/16 at 21:00 Docusate Sodium (Colace) 100 mg Q12 PO Last administered on 11/26/16 09:06; Admin Dose 100 MG; Start 11/17/16 at 11:00 Mirtazapine (Remeron) 7.5 mg HS PO Last administered on 11/25/16 23:49; Admin Dose 7.5 MG; Start 11/17/16 at 21:00 Pantoprazole (Protonix Iv) 40 mg BID@06,18 IV Last administered on 11/26/16 17: 33; Admin Dose 40 MG; Start 11/19/16 at 18:00 Potassium Chloride (Potassium Chloride Pwd/Soln) 40 meq BID PO Last administered on 11/26/16 09:07; Admin Dose 40 MEQ; Start 11/25/16 at 09:00 Trimethoprim/ Sulfamethoxazole (Bactrim (Ds)) 1 tab DAILY PO Last administered on 11/26/16 09:06; Admin Dose 1 TAB; Start 11/26/16 at 09:00 Metoclopramide HCl 5 mg 5 mg Q8 IV Last administered on 11/26/16 13:38; Admin Dose 5 MG; Start 11/25/16 at 20:00 Dextrose/Sodium Chloride 1,000 ml @ 40 mls/hr Q24H IV Last administered on 11/25 21:40; Admin Dose 40 MLS/HR; Start 11/25/16 at 17:00 Levetiracetam 100 ml @ 400 mls/hr Q12 IVPB Last administered on 11/26/16 09:09 ; Admin Dose 400 MLS/HR; Start 11/25/16 at 22:30 Cefepime HCl (Maxipime 1gm/50 ml (Pmx)) 50 ml @ 100 mls/hr Q12 IVPB Last administered on 11/26/16 13:19; Admin Dose 100 MLS/HR; Start 11/26/16 at 11:30 Ketorolac Tromethamine (Toradol) 15 mg Q6H PRN IV PAIN; Start 11/26/16 at 15:30 ; Stop 11/29/16 at 15:29 Diphenhydramine HCl (Benadryl) 25 mg Q6H PRN IM SLEEP; Start 11/26/16 at 15:30 Assessment/Plan Chief Complaint/Hosp Course PHYSICAL EXAMINATION: GENERAL: Not in acute distress, lying in bed. HEENT: Normocephalic, atraumatic head. Somewhat swollen eyelids. NECK: Supple. No meningeal signs. LUNGS: Clear to auscultation bilaterally. CARDIAC: Normal cardiac rhythm and sounds. ABDOMEN: Soft. EXTREMITIES: No cyanosis, clubbing, or edema. NEUROLOGIC: She is lethargic,arousable by voice or pain. Follows simple commands. Oriented x 1. Fluent speech. Normal response to visual threat bilaterally. Pupils reactive from 3 to 2 mm bilaterally. Extraocular movements intact. Corneal reflexes present bilaterally as well as gag. The patient moves bilateral extremities symmetrically, about 3/5, on request and feels noxious stimuli. Deep tendon reflexes 1+ upper extremities, absent in lower extremities. Equivocal response to plantar stimulation bilaterally. Coordination OK UE, no tremor IMPRESSION: 1. Status post seizure. Etiology? Emncephalopathy, improving. 2. The patient has human immunodeficiency virus with CD4 count of 157. 3. Ulcerative colitis. 4. Status post gastrointestinal bleed. 5. Status post sepsis. PLAN: Continue Keppra 500 twice daily. EEG c/w encephalopathy. MRI brain was normal. ID service is on case. I do not appreciate any meningeal signs. I leave decision whether or not to tap the patient to ID specialist. Problems: JAYME YEH MD Nov 26, 2016 20:57
[2016-11-26] MEDS: MIRTAZAPINE 15 MG TAB PO SCH (21:35)
[2016-11-27] VITALS (22 sets, daily range): BP systolic 104–141; BP diastolic 67–104; PULSE 93–120; RESP 16–29
[2016-11-27] MEDS: VANCOMYCIN HCL 250 MG/5ML POSYG PO SCH ×5 (00:30→23:59)
[2016-11-27] MEDS: PANTOPRAZOLE 40 MG INJ IV SCH ×2 (05:59→17:06)
[2016-11-27] MEDS: METOCLOPRAMIDE 10 MG INJ IV SCH ×3 (05:59→21:28)
[2016-11-27] MEDS ORDERED: POTASSIUM CHLORIDE 20 MEQ POWDER FOR ORAL SOLN PO ONE (09:00)
[2016-11-27] MEDS: DOCUSATE SODIUM 100 MG CAP PO SCH (09:00)
[2016-11-27] MEDS: VALGANCICLOVIR 450 MG TAB PO SCH ×2 (09:41→20:56)
[2016-11-27] MEDS: LEVETIRACETAM 500 MG (PMX) 100 ML IVPB SCH (09:41)
[2016-11-27] MEDS: TRIMETHOPRIM/SULFAMETHOX (DS) TAB PO SCH (09:42)
[2016-11-27] MEDS: L ACIDOPHIL/B LACTIS/B LONGUM CAPSULE PO SCH ×2 (09:42→20:56)
[2016-11-27] MEDS: POTASSIUM CHLORIDE 20 MEQ POWDER FOR ORAL SOLN PO SCH (09:42)
[2016-11-27] MEDS: MESALAMINE (EC) 400 MG CAP PO SCH ×4 (09:42→20:56)
[2016-11-27] MEDS: FLUCONAZOLE 100 MG TAB PO SCH (09:42)
[2016-11-27] MEDS: SUCRALFATE 1 GM TAB PO SCH ×4 (09:42→20:56)
[2016-11-27] MEDS: EMTRICITABINE/TENOFOVIR TAB PO SCH (09:42)
--- NOTE | 2016-11-27 09:52 | CONS ---
Date/Time of Note Date/Time of Note DATE: 11/27/16 TIME: 09:50 Assessment/Plan Assessment/Plan Additional Assessment/Plan Assessment recommendations; 1. Patient admitted for severe anemia status post blood transfusion without any overt bleeding. 2. HIV positive, patient not on any outpatient and try retroviral medications due to noncompliance. 3. Left lower lobe pneumonia. 4. Generalized anasarca. Next Continue current treatment. Patient can be transferred to the medical floor. Obtain follow-up chest x-ray in 48 hours. Consultation Date/Type/Reason Admit Date/Time November 11, 2016 at 15:19 Initial Consult Date 11/26/16 Type of Consultation: Pulmonary/critical care Referring Provider: JESUS RUIZ 24 HR Interval Summary Free Text/Dictation Patient condition stable. Still has waxing and waning mental status with the patient when she is awake she is completely awake and alert. But she does goes off to sleep off and on. Patient has remained hemodynamically stable. General exam; young woman, awake currently in no distress. Exam/Review of Systems Vital Signs Vitals Vital Signs Date Time Temp Pulse Resp B/P Pulse Ox O2 Delivery O2 Flow Rate FiO2 11/27/16 04:30 99 11/27/16 04:00 98.7 25 104/72 98 Room Air 11/26/16 10:17 21 11/26/16 08:00 2.0 Intake and Output 11/26/16 11/26/16 11/27/16 15:00 23:00 07:00 Intake Total 680 ml 860 ml 200 ml Output Total 350 ml 560 ml 1100 ml Balance 330 ml 300 ml -900 ml Exam HEENT exam is; supple neck, no JVD. No lymphadenopathy. Midline trachea. No thyromegaly. Patient has a multiple carious teeth. Pupils are equal and reactive to light. Chest examination; clear to auscultation. S1-S2 audible, no murmurs. Regular rhythm. Abdomen examination; soft, nontender. No organomegaly. Mildly distended. Bowel sounds audible. Extremity exam; trace anasarca. IMPLEMENTATION TECHNICIAN exam is; no focal deficit. Results Result Diagram: 11/26/1660411/26/16604 Medications Medications Current Medications Ondansetron HCl (Zofran Inj) 4 mg Q6H PRN IV NAUSEA AND/OR VOMITING; Start at 16:00 Acetaminophen (Tylenol Tab) 650 mg Q6H PRN PO PAIN LEVEL 1-3 OR FEVER; Start at 16:00 Magnesium Hydroxide (Milk Of Mag) 30 ml DAILY PRN PO CONSTIPATION; Start at 16:00 Sodium Biphosphate/ Sodium Phosphate (Fleet Enema) 133 ml DAILY PRN [place] CONSTIPATION; Start 11/11/16 at 16:00 Hydralazine HCl (Apresoline) 10 mg Q6H PRN IV ELEVATED BLOOD PRESSURE; Start at 16:00 Nitroglycerin (Nitroglycerin (Sl Tab) 0.4 Mg) 1 tab Q5M PRN SL ANGINA Last administered on 11/11/16 23:25; Admin Dose 1 TAB; Start 11/11/16 at 16:00 Efavirenz (Sustiva) 600 mg DAILY PO Last administered on 11/26/16 09:25; Admin Dose 600 MG; Start 11/12/16 at 09:00 Emtricitabine/ Tenofovir (Truvada) 1 tab DAILY PO Last administered on 09:42; Admin Dose 1 TAB; Start 11/12/16 at 09:00 Sucralfate (Carafate) 1 gm QID PO Last administered on 11/27/16 09:42; Admin Dose 1 GM; Start 11/11/16 at 17:00 Valganciclovir (Valcyte) 450 mg Q12 PO Last administered on 11/27/16 09:41; Admin Dose 450 MG; Start 11/11/16 at 21:00 Collagenase (Santyl) 1 applic DAILY TOP Last administered on 11/24/16 10:01; Admin Dose 1 APPLIC; Start 11/12/16 at 13:00 Collagenase (Santyl) 1 applic PRN PRN TOP WOUND CARE; Start 11/12/16 at 12:00 Mesalamine (Delzicol Dr) 800 mg QID PO Last administered on 11/27/16 09:42; Admin Dose 800 MG; Start 11/12/16 at 21:00 Vancomycin HCl (Vancomycin Oral Syringe) 250 mg Q6 PO Last administered on 05:59; Admin Dose 250 MG; Start 11/12/16 at 19:30 Fluconazole (Diflucan) 100 mg DAILY PO Last administered on 11/27/16 09:42; Admin Dose 100 MG; Start 11/13/16 at 09:00 Lactobacillus Acidophilus (Florajen3 Capsule) 1 each BID PO Last administered on 11/27/16 09:42; Admin Dose 1 EACH; Start 11/13/16 at 21:00 Docusate Sodium (Colace) 100 mg Q12 PO Last administered on 11/26/16 21:34; Admin Dose 100 MG; Start 11/17/16 at 11:00 Mirtazapine (Remeron) 7.5 mg HS PO Last administered on 11/26/16 21:35; Admin Dose 7.5 MG; Start 11/17/16 at 21:00 Pantoprazole (Protonix Iv) 40 mg BID@06,18 IV Last administered on 11/27/16 05: 59; Admin Dose 40 MG; Start 11/19/16 at 18:00 Potassium Chloride (Potassium Chloride Pwd/Soln) 40 meq BID PO Last administered on 11/27/16 09:42; Admin Dose 40 MEQ; Start 11/25/16 at 09:00 Trimethoprim/ Sulfamethoxazole (Bactrim (Ds)) 1 tab DAILY PO Last administered on 11/27/16 09:42; Admin Dose 1 TAB; Start 11/26/16 at 09:00 Metoclopramide HCl 5 mg 5 mg Q8 IV Last administered on 11/27/16 05:59; Admin Dose 5 MG; Start 11/25/16 at 20:00 Dextrose/Sodium Chloride 1,000 ml @ 40 mls/hr Q24H IV Last administered on 11/25 21:40; Admin Dose 40 MLS/HR; Start 11/25/16 at 17:00 Levetiracetam 100 ml @ 400 mls/hr Q12 IVPB Last administered on 11/27/16 09:41 ; Admin Dose 400 MLS/HR; Start 11/25/16 at 22:30 Cefepime HCl (Maxipime 1gm/50 ml (Pmx)) 50 ml @ 100 mls/hr Q12 IVPB Last administered on 11/26/16 21:33; Admin Dose 100 MLS/HR; Start 11/26/16 at 11:30 Ketorolac Tromethamine (Toradol) 15 mg Q6H PRN IV PAIN; Start 11/26/16 at 15:30 ; Stop 11/29/16 at 15:29 Diphenhydramine HCl (Benadryl) 25 mg Q6H PRN IM SLEEP; Start 11/26/16 at 15:30 CHANTELL SULTANA Nov 27, 2016 09:52
[2016-11-27] MEDS: COLLAGENASE 30 GM TUBE TOP SCH (10:00)
[2016-11-27] MEDS: EFAVIRENZ 600 MG TAB PO SCH (10:00)
[2016-11-27] MEDS: CEFEPIME 1GM/50 ML (PMX) 50 ML IVPB SCH ×2 (10:00→20:56)
[2016-11-27 13:32] LABS: LYMPHOCYTE - CD4/CD8 RATIO 0.39 (0.86-5.00)
--- NOTE | 2016-11-27 15:52 | PN ---
Date/Time of Note Date/Time of Note DATE: 11/27/16 TIME: 15:49 Assessment/Plan VTE Prophylaxis VTE Prophylaxis Intervention: SCD's Lines/Catheters IV Catheter Type (from Nrsg): PICC Line Central line still needed: Yes Urinary Cath still in place: Yes Reason Cath still needed: urinary retention Assessment/Plan Assessment/Plan Assessment * Anemia EGD 11/12/2016 Severe ulcerated esophagitis/Inocencia esophagitis Colonoscopy 11/12/2016 [place] ulcerative colitis. Moderate sized internal hemorrhoids * HIV disease. * Anasarca/small amount of ascites * Probably ascitic fluid leak right lower quadrant * Malnutrition * UTI * Polysubstance abuse * History of psychiatric illness Plan * Continue present management * case was discussed with Subjective 24 Hr Interval Summary Free Text/Dictation * Course reviewed with RN * Patient seen and examined * Rectal tube in place with liquid stool * Afebrile , Exam/Review of Systems Vital Signs Vitals Vital Signs Date Time Temp Pulse Resp B/P Pulse Ox O2 Delivery O2 Flow Rate FiO2 11/27/16 15:00 97 18 114/86 100 Room Air 11/27/16 12:00 98.5 11/26/16 10:17 21 11/26/16 08:00 2.0 Intake and Output 11/26/16 11/26/16 11/27/16 15:00 23:00 07:00 Intake Total 680 ml 860 ml 240 ml Output Total 350 ml 560 ml 1100 ml Balance 330 ml 300 ml -860 ml Exam Constitutional: frail Neck: non-tender, supple Respiratory: diminished breath sounds Cardiovascular: nl pulses, regular rate and rhythm Gastrointestinal: bowel sounds, distended, other (rectal tube), soft Musculoskeletal: muscle weakness Extremities: normal pulses Skin: rash or lesions Results Result Diagram: 11/26/1660411/26/16604 Medications Medications Current Medications Ondansetron HCl (Zofran Inj) 4 mg Q6H PRN IV NAUSEA AND/OR VOMITING; Start at 16:00 Acetaminophen (Tylenol Tab) 650 mg Q6H PRN PO PAIN LEVEL 1-3 OR FEVER; Start at 16:00 Magnesium Hydroxide (Milk Of Mag) 30 ml DAILY PRN PO CONSTIPATION; Start at 16:00 Sodium Biphosphate/ Sodium Phosphate (Fleet Enema) 133 ml DAILY PRN [place] CONSTIPATION; Start 11/11/16 at 16:00 Hydralazine HCl (Apresoline) 10 mg Q6H PRN IV ELEVATED BLOOD PRESSURE; Start at 16:00 Nitroglycerin (Nitroglycerin (Sl Tab) 0.4 Mg) 1 tab Q5M PRN SL ANGINA Last administered on 11/11/16 23:25; Admin Dose 1 TAB; Start 11/11/16 at 16:00 Efavirenz (Sustiva) 600 mg DAILY PO Last administered on 11/26/16 09:25; Admin Dose 600 MG; Start 11/12/16 at 09:00 Emtricitabine/ Tenofovir (Truvada) 1 tab DAILY PO Last administered on 09:42; Admin Dose 1 TAB; Start 11/12/16 at 09:00 Sucralfate (Carafate) 1 gm QID PO Last administered on 11/27/16 13:56; Admin Dose 1 GM; Start 11/11/16 at 17:00 Valganciclovir (Valcyte) 450 mg Q12 PO Last administered on 11/27/16 09:41; Admin Dose 450 MG; Start 11/11/16 at 21:00 Collagenase (Santyl) 1 applic DAILY TOP Last administered on 11/27/16 10:00; Admin Dose 1 APPLIC; Start 11/12/16 at 13:00 Collagenase (Santyl) 1 applic PRN PRN TOP WOUND CARE; Start 11/12/16 at 12:00 Mesalamine (Delzicol Dr) 800 mg QID PO Last administered on 11/27/16 13:56; Admin Dose 800 MG; Start 11/12/16 at 21:00 Vancomycin HCl (Vancomycin Oral Syringe) 250 mg Q6 PO Last administered on 12:36; Admin Dose 250 MG; Start 11/12/16 at 19:30 Fluconazole (Diflucan) 100 mg DAILY PO Last administered on 11/27/16 09:42; Admin Dose 100 MG; Start 11/13/16 at 09:00 Lactobacillus Acidophilus (Florajen3 Capsule) 1 each BID PO Last administered on 11/27/16 09:42; Admin Dose 1 EACH; Start 11/13/16 at 21:00 Docusate Sodium (Colace) 100 mg Q12 PO Last administered on 11/26/16 21:34; Admin Dose 100 MG; Start 11/17/16 at 11:00 Mirtazapine (Remeron) 7.5 mg HS PO Last administered on 11/26/16 21:35; Admin Dose 7.5 MG; Start 11/17/16 at 21:00 Pantoprazole (Protonix Iv) 40 mg BID@06,18 IV Last administered on 11/27/16 05: 59; Admin Dose 40 MG; Start 11/19/16 at 18:00 Potassium Chloride (Potassium Chloride Pwd/Soln) 40 meq BID PO Last administered on 11/27/16 09:42; Admin Dose 40 MEQ; Start 11/25/16 at 09:00 Metoclopramide HCl 5 mg 5 mg Q8 IV Last administered on 11/27/16 05:59; Admin Dose 5 MG; Start 11/25/16 at 20:00 Dextrose/Sodium Chloride 1,000 ml @ 40 mls/hr Q24H IV Last administered on 11/25 21:40; Admin Dose 40 MLS/HR; Start 11/25/16 at 17:00 Levetiracetam 100 ml @ 400 mls/hr Q12 IVPB Last administered on 11/27/16 09:41 ; Admin Dose 400 MLS/HR; Start 11/25/16 at 22:30 Cefepime HCl (Maxipime 1gm/50 ml (Pmx)) 50 ml @ 100 mls/hr Q12 IVPB Last administered on 11/27/16 10:00; Admin Dose 100 MLS/HR; Start 11/26/16 at 11:30 Ketorolac Tromethamine (Toradol) 15 mg Q6H PRN IV PAIN; Start 11/26/16 at 15:30 ; Stop 11/29/16 at 15:29 Diphenhydramine HCl (Benadryl) 25 mg Q6H PRN IM SLEEP; Start 11/26/16 at 15:30 GUCCI STROUD NP Nov 27, 2016 15:52
--- NOTE | 2016-11-27 16:09 | PN ---
DATE: 11/27/2016 SUBJECTIVE: No events overnight. No fevers. The patient is lying comfortably in bed, very weak. No CBC this morning. Her CD4 count from 11/25/2016 is 241. MICROBIOLOGY: Repeat blood and urine cultures negative. DIAGNOSTICS: Patient had MRI of the brain yesterday that revealed no evidence of acute intracranial pathology. There is right greater than left mastoid cell opacification. ANTIMICROBIALS: Patient is on: 1. Cefepime. 2. Bactrim. 3. Oral vancomycin. 4. Fluconazole. 5. Truvada. 6. Sustiva. 7. Valcyte. PHYSICAL EXAMINATION: GENERAL: This is a chronically ill-appearing, cachectic, wasted, middle-aged white woman who is lyi ng comfortably in bed. HEENT: Head atraumatic, normocephalic. Sclerae anicteric. Buccal mucosa dry. NECK: Supple. CHEST: Rise symmetrical. Breath sounds diminished. HEART: S1, S2. ABDOMEN: Soft. Bowel tones present. EXTREMITIES: Without cyanosis. Bilateral edema. SKIN: Positive for anasarca. ASSESSMENT: 1. Status post severe sepsis with shock. 2. Acute encephalopathy, possibly post-ictal. 3. Questionable mastoiditis. 4. Healthcare-acquired pneumonia, possibly aspiration. 5. Human immunodeficiency virus with CD4 count of 241. 6. Multiple chronic wounds. 7. History of Inocencia esophagitis. PLAN: The patient remains stable. We are going to discontinue Bactrim and keep her on other antimi crobials. Follow recommendations of consultants. Dictated By: AGUILA BURGOS PCTS for GINNY PIERSON/SHILPA Conf#: [id number] DID#: [id number]
--- NOTE | 2016-11-27 17:05 | CONS ---
Date/Time of Note Date/Time of Note DATE: 11/27/16 TIME: 17:05 Assessment/Plan Assessment/Plan Additional Assessment/Plan 1. Severe hyperchloremia with a chloride of 117, unclear etiology. 2. Acute encephalopathy. 3. Status post hemorrhagic shock. 4. Human immunodeficiency virus positive with CD4 count of 157. 5. Positive colitis. 6. Multiple decubitus ulcers. 7. Status post urinary tract infection and sepsis on admission. 8. Depression. PLAN: continue IVF D51/4NS at 60 cc/ hr, no labs today to review yet BP stable afebrile will follow up Consultation Date/Type/Reason Admit Date/Time November 11, 2016 at 15:19 Initial Consult Date 11/26/16 Type of Consultation: NEPHROLOGY Referring Provider: JESUS RUIZ 24 HR Interval Summary Free Text/Dictation No labs today to review, no acute events Exam/Review of Systems Vital Signs Vitals Vital Signs Date Time Temp Pulse Resp B/P Pulse Ox O2 Delivery O2 Flow Rate FiO2 11/27/16 16:00 116 11/27/16 15:00 18 114/86 100 Room Air 11/27/16 12:00 98.5 11/26/16 10:17 21 11/26/16 08:00 2.0 Intake and Output 11/26/16 11/26/16 11/27/16 15:00 23:00 07:00 Intake Total 680 ml 860 ml 240 ml Output Total 350 ml 560 ml 1100 ml Balance 330 ml 300 ml -860 ml Results Result Diagram: 11/26/16 0605 11/26/16 0605 Medications Medications Current Medications Ondansetron HCl (Zofran Inj) 4 mg Q6H PRN IV NAUSEA AND/OR VOMITING; Start at 16:00 Acetaminophen (Tylenol Tab) 650 mg Q6H PRN PO PAIN LEVEL 1-3 OR FEVER; Start at 16:00 Magnesium Hydroxide (Milk Of Mag) 30 ml DAILY PRN PO CONSTIPATION; Start at 16:00 Sodium Biphosphate/ Sodium Phosphate (Fleet Enema) 133 ml DAILY PRN [place] CONSTIPATION; Start 11/11/16 at 16:00 Hydralazine HCl (Apresoline) 10 mg Q6H PRN IV ELEVATED BLOOD PRESSURE; Start at 16:00 Nitroglycerin (Nitroglycerin (Sl Tab) 0.4 Mg) 1 tab Q5M PRN SL ANGINA Last administered on 11/11/16 23:25; Admin Dose 1 TAB; Start 11/11/16 at 16:00 Efavirenz (Sustiva) 600 mg DAILY PO Last administered on 11/26/16 09:25; Admin Dose 600 MG; Start 11/12/16 at 09:00 Emtricitabine/ Tenofovir (Truvada) 1 tab DAILY PO Last administered on 09:42; Admin Dose 1 TAB; Start 11/12/16 at 09:00 Sucralfate (Carafate) 1 gm QID PO Last administered on 11/27/16 13:56; Admin Dose 1 GM; Start 11/11/16 at 17:00 Valganciclovir (Valcyte) 450 mg Q12 PO Last administered on 11/27/16 09:41; Admin Dose 450 MG; Start 11/11/16 at 21:00 Collagenase (Santyl) 1 applic DAILY TOP Last administered on 11/27/16 10:00; Admin Dose 1 APPLIC; Start 11/12/16 at 13:00 Collagenase (Santyl) 1 applic PRN PRN TOP WOUND CARE; Start 11/12/16 at 12:00 Mesalamine (Delzicol Dr) 800 mg QID PO Last administered on 11/27/16 13:56; Admin Dose 800 MG; Start 11/12/16 at 21:00 Vancomycin HCl (Vancomycin Oral Syringe) 250 mg Q6 PO Last administered on 12:36; Admin Dose 250 MG; Start 11/12/16 at 19:30 Fluconazole (Diflucan) 100 mg DAILY PO Last administered on 11/27/16 09:42; Admin Dose 100 MG; Start 11/13/16 at 09:00 Lactobacillus Acidophilus (Florajen3 Capsule) 1 each BID PO Last administered on 11/27/16 09:42; Admin Dose 1 EACH; Start 11/13/16 at 21:00 Docusate Sodium (Colace) 100 mg Q12 PO Last administered on 11/26/16 21:34; Admin Dose 100 MG; Start 11/17/16 at 11:00 Mirtazapine (Remeron) 7.5 mg HS PO Last administered on 11/26/16 21:35; Admin Dose 7.5 MG; Start 11/17/16 at 21:00 Pantoprazole (Protonix Iv) 40 mg BID@06,18 IV Last administered on 11/27/16 05: 59; Admin Dose 40 MG; Start 11/19/16 at 18:00 Potassium Chloride (Potassium Chloride Pwd/Soln) 40 meq BID PO Last administered on 11/27/16 09:42; Admin Dose 40 MEQ; Start 11/25/16 at 09:00 Metoclopramide HCl 5 mg 5 mg Q8 IV Last administered on 11/27/16 14:41; Admin Dose 5 MG; Start 11/25/16 at 20:00 Dextrose/Sodium Chloride 1,000 ml @ 40 mls/hr Q24H IV Last administered on 11/25 21:40; Admin Dose 40 MLS/HR; Start 11/25/16 at 17:00 Levetiracetam 100 ml @ 400 mls/hr Q12 IVPB Last administered on 11/27/16 09:41 ; Admin Dose 400 MLS/HR; Start 11/25/16 at 22:30 Cefepime HCl (Maxipime 1gm/50 ml (Pmx)) 50 ml @ 100 mls/hr Q12 IVPB Last administered on 11/27/16 10:00; Admin Dose 100 MLS/HR; Start 11/26/16 at 11:30 Ketorolac Tromethamine (Toradol) 15 mg Q6H PRN IV PAIN; Start 11/26/16 at 15:30 ; Stop 11/29/16 at 15:29 Diphenhydramine HCl (Benadryl) 25 mg Q6H PRN IM SLEEP; Start 11/26/16 at 15:30 ASHISH MENDOZA MD Nov 27, 2016 17:05
[2016-11-27] MEDS: DEXTROSE 5%-0.225% NACL 1,000 ML IV SCH (17:08)
--- NOTE | 2016-11-27 18:52 | PN ---
Date/Time of Note Date/Time of Note DATE: 11/27/16 TIME: 18:48 Assessment/Plan VTE Prophylaxis VTE Prophylaxis Intervention: LMWH Lines/Catheters IV Catheter Type (from Nrsg): PICC Line Central line still needed: Yes (IV access) Urinary Cath still in place: Yes Reason Cath still needed: skin wounds contaminated by urine Assessment/Plan Chief Complaint/Hosp Course S: 11/24 Feels good. Tolerating diet. No n/v/d. No further incontinence apparently. Still requiring care for ascitic fluid leak. 11/25: Events noted. Had an event of LOC/altered mental status yesterday evening. Witnessed seizure this am. 11/26: Improved, follows one-step commands. No further seizures. Cough? 11/27: Awake alert oriented. Recent tongue bite obviously. Positive cough but no dyspnea. O:Vss PE No pallor droop Reg Clear Bs dimin; nt nd. No r/r/g No edema; hypotonia noted Neuro: Nonfocal A/P 1. Shock, hemorrhagic, stable, resolved. Observe. 2. Ac blood loss anemia secondary to colitis stable 3. Severe erosive esophagitis/PPI; decrease Reglan due to ams risk. Change to po. Cont Diflucan 4. [place] ulcerative colitis, no evidence of C diff. Cont mesalamine. 5. 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 conservative care. Decreased IVFs. 6. Chr HIV 7. Substance abuse 8. Depression 9. Ac cystitis 10. Severe hypoalbuminemia; somewhat improved consider Megace, maybe Remeron. 11. Dyslipidemia 12. Hiatal hernia 13. Prediabetes 14. Subclinical hyperthyroidism 15. Syncope due to #1 resolved 16. Single episode seizure, lytes vs hypoxia related. Doubt encephalitis. ns changed to 1/2ns. EEG/MRI done. Cont Keppra. 17. Aspiration pneumonia/ HAP? Cont antibiotics. ST eval. 18. Diarrhea, decreased Reglan DC Colace. Continue rectal tube 19. Sinus tachycardia, stable follow. Problems: Exam/Review of Systems Vital Signs Vitals Vital Signs Date Time Temp Pulse Resp B/P Pulse Ox O2 Delivery O2 Flow Rate FiO2 11/27/16 18:00 101 22 127/99 99 Room Air 11/27/16 16:00 98.1 11/26/16 10:17 21 11/26/16 08:00 2.0 Intake and Output 11/26/16 11/26/16 11/27/16 15:00 23:00 07:00 Intake Total 680 ml 860 ml 240 ml Output Total 350 ml 560 ml 1200 ml Balance 330 ml 300 ml -960 ml Results Result Diagram: 11/26/1660411/26/16604 Medications Medications Current Medications Ondansetron HCl (Zofran Inj) 4 mg Q6H PRN IV NAUSEA AND/OR VOMITING; Start at 16:00 Acetaminophen (Tylenol Tab) 650 mg Q6H PRN PO PAIN LEVEL 1-3 OR FEVER; Start at 16:00 Magnesium Hydroxide (Milk Of Mag) 30 ml DAILY PRN PO CONSTIPATION; Start at 16:00 Sodium Biphosphate/ Sodium Phosphate (Fleet Enema) 133 ml DAILY PRN [place] CONSTIPATION; Start 11/11/16 at 16:00 Hydralazine HCl (Apresoline) 10 mg Q6H PRN IV ELEVATED BLOOD PRESSURE; Start at 16:00 Nitroglycerin (Nitroglycerin (Sl Tab) 0.4 Mg) 1 tab Q5M PRN SL ANGINA Last administered on 11/11/16 23:25; Admin Dose 1 TAB; Start 11/11/16 at 16:00 Efavirenz (Sustiva) 600 mg DAILY PO Last administered on 11/27/16 10:00; Admin Dose 600 MG; Start 11/12/16 at 09:00 Emtricitabine/ Tenofovir (Truvada) 1 tab DAILY PO Last administered on 09:42; Admin Dose 1 TAB; Start 11/12/16 at 09:00 Sucralfate (Carafate) 1 gm QID PO Last administered on 11/27/16 17:06; Admin Dose 1 GM; Start 11/11/16 at 17:00 Valganciclovir (Valcyte) 450 mg Q12 PO Last administered on 11/27/16 09:41; Admin Dose 450 MG; Start 11/11/16 at 21:00 Collagenase (Santyl) 1 applic DAILY TOP Last administered on 11/27/16 10:00; Admin Dose 1 APPLIC; Start 11/12/16 at 13:00 Collagenase (Santyl) 1 applic PRN PRN TOP WOUND CARE; Start 11/12/16 at 12:00 Mesalamine (Delzicol Dr) 800 mg QID PO Last administered on 11/27/16 17:07; Admin Dose 800 MG; Start 11/12/16 at 21:00 Vancomycin HCl (Vancomycin Oral Syringe) 250 mg Q6 PO Last administered on 17:27; Admin Dose 250 MG; Start 11/12/16 at 19:30 Fluconazole (Diflucan) 100 mg DAILY PO Last administered on 11/27/16 09:42; Admin Dose 100 MG; Start 11/13/16 at 09:00 Lactobacillus Acidophilus (Florajen3 Capsule) 1 each BID PO Last administered on 11/27/16 09:42; Admin Dose 1 EACH; Start 11/13/16 at 21:00 Docusate Sodium (Colace) 100 mg Q12 PO Last administered on 11/26/16 21:34; Admin Dose 100 MG; Start 11/17/16 at 11:00 Mirtazapine (Remeron) 7.5 mg HS PO Last administered on 11/26/16 21:35; Admin Dose 7.5 MG; Start 11/17/16 at 21:00 Pantoprazole (Protonix Iv) 40 mg BID@06,18 IV Last administered on 11/27/16 17: 06; Admin Dose 40 MG; Start 11/19/16 at 18:00 Potassium Chloride (Potassium Chloride Pwd/Soln) 40 meq BID PO Last administered on 11/27/16 09:42; Admin Dose 40 MEQ; Start 11/25/16 at 09:00 Metoclopramide HCl 5 mg 5 mg Q8 IV Last administered on 11/27/16 14:41; Admin Dose 5 MG; Start 11/25/16 at 20:00 Dextrose/Sodium Chloride 1,000 ml @ 40 mls/hr Q24H IV Last administered on 11/27 17:08; Admin Dose 40 MLS/HR; Start 11/25/16 at 17:00 Levetiracetam 100 ml @ 400 mls/hr Q12 IVPB Last administered on 11/27/16 09:41 ; Admin Dose 400 MLS/HR; Start 11/25/16 at 22:30 Cefepime HCl (Maxipime 1gm/50 ml (Pmx)) 50 ml @ 100 mls/hr Q12 IVPB Last administered on 11/27/16 10:00; Admin Dose 100 MLS/HR; Start 11/26/16 at 11:30 Ketorolac Tromethamine (Toradol) 15 mg Q6H PRN IV PAIN; Start 11/26/16 at 15:30 ; Stop 11/29/16 at 15:29 Diphenhydramine HCl (Benadryl) 25 mg Q6H PRN IM SLEEP; Start 11/26/16 at 15:30 VALERIE LOBO MD Nov 27, 2016 18:52
[2016-11-27] MEDS ORDERED: ALBUTEROL 18 GM INHALER INH PRN (19:00)
[2016-11-27] MEDS: KETOROLAC 15 MG INJ IV PRN (19:53)
--- NOTE | 2016-11-27 20:43 | CONS ---
Date/Time of Note Date/Time of Note DATE: 11/27/16 TIME: 20:40 Consult Date/Type/Reason Admit Date/Time November 11, 2016 at 15:19 Initial Consult Date 11/26/16 Type of Consultation: neurology Ordering Provider: JESUS RUIZ Subjective No acute events Objective Vital Signs Date Time Temp Pulse Resp B/P Pulse Ox O2 Delivery O2 Flow Rate FiO2 11/27/16 18:00 101 22 127/99 99 Room Air 11/27/16 16:00 98.1 11/26/16 10:17 21 11/26/16 08:00 2.0 Intake and Output 11/26/16 11/26/16 11/27/16 15:00 23:00 07:00 Intake Total 680 ml 860 ml 240 ml Output Total 350 ml 560 ml 1200 ml Balance 330 ml 300 ml -960 ml Results/Medications Result Diagram: 11/26/16 0605 11/26/16 0605 Medications Current Medications Ondansetron HCl (Zofran Inj) 4 mg Q6H PRN IV NAUSEA AND/OR VOMITING; Start at 16:00 Acetaminophen (Tylenol Tab) 650 mg Q6H PRN PO PAIN LEVEL 1-3 OR FEVER; Start at 16:00 Magnesium Hydroxide (Milk Of Mag) 30 ml DAILY PRN PO CONSTIPATION; Start at 16:00 Sodium Biphosphate/ Sodium Phosphate (Fleet Enema) 133 ml DAILY PRN [place] CONSTIPATION; Start 11/11/16 at 16:00 Hydralazine HCl (Apresoline) 10 mg Q6H PRN IV ELEVATED BLOOD PRESSURE; Start at 16:00 Nitroglycerin (Nitroglycerin (Sl Tab) 0.4 Mg) 1 tab Q5M PRN SL ANGINA Last administered on 11/11/16 23:25; Admin Dose 1 TAB; Start 11/11/16 at 16:00 Efavirenz (Sustiva) 600 mg DAILY PO Last administered on 11/27/16 10:00; Admin Dose 600 MG; Start 11/12/16 at 09:00 Emtricitabine/ Tenofovir (Truvada) 1 tab DAILY PO Last administered on 09:42; Admin Dose 1 TAB; Start 11/12/16 at 09:00 Sucralfate (Carafate) 1 gm QID PO Last administered on 11/27/16 17:06; Admin Dose 1 GM; Start 11/11/16 at 17:00 Valganciclovir (Valcyte) 450 mg Q12 PO Last administered on 11/27/16 09:41; Admin Dose 450 MG; Start 11/11/16 at 21:00 Collagenase (Santyl) 1 applic DAILY TOP Last administered on 11/27/16 10:00; Admin Dose 1 APPLIC; Start 11/12/16 at 13:00 Collagenase (Santyl) 1 applic PRN PRN TOP WOUND CARE; Start 11/12/16 at 12:00 Mesalamine (Delzicol Dr) 800 mg QID PO Last administered on 11/27/16 17:07; Admin Dose 800 MG; Start 11/12/16 at 21:00 Vancomycin HCl (Vancomycin Oral Syringe) 250 mg Q6 PO Last administered on 17:27; Admin Dose 250 MG; Start 11/12/16 at 19:30 Fluconazole (Diflucan) 100 mg DAILY PO Last administered on 11/27/16 09:42; Admin Dose 100 MG; Start 11/13/16 at 09:00 Lactobacillus Acidophilus (Florajen3 Capsule) 1 each BID PO Last administered on 11/27/16 09:42; Admin Dose 1 EACH; Start 11/13/16 at 21:00 Metoclopramide HCl 5 mg 5 mg Q8 IV Last administered on 11/27/16 14:41; Admin Dose 5 MG; Start 11/25/16 at 20:00 Dextrose/Sodium Chloride 1,000 ml @ 40 mls/hr Q24H IV Last administered on 11/27 17:08; Admin Dose 40 MLS/HR; Start 11/25/16 at 17:00 Cefepime HCl (Maxipime 1gm/50 ml (Pmx)) 50 ml @ 100 mls/hr Q12 IVPB Last administered on 11/27/16 10:00; Admin Dose 100 MLS/HR; Start 11/26/16 at 11:30 Ketorolac Tromethamine (Toradol) 15 mg Q6H PRN IV PAIN Last administered on 11/27 19:53; Admin Dose 15 MG; Start 11/26/16 at 15:30; Stop 11/29/16 at 15:29 Diphenhydramine HCl (Benadryl) 25 mg Q6H PRN IM SLEEP; Start 11/26/16 at 15:30 Pantoprazole (Protonix Tab) 40 mg BID@06,18 PO ; Start 11/28/16 at 06:00 Metoclopramide HCl (Reglan) 5 mg TID PO ; Start 11/27/16 at 21:00 Levetiracetam (Keppra) 500 mg BID PO ; Start 11/27/16 at 21:00 Potassium Chloride (Klor-Con 20) 40 meq BID PO ; Start 11/27/16 at 21:00 Assessment/Plan Chief Complaint/Hosp Course PHYSICAL EXAMINATION: GENERAL: Not in acute distress, lying in bed. HEENT: Normocephalic, atraumatic head. Somewhat swollen eyelids. NECK: Supple. No meningeal signs. LUNGS: Clear to auscultation bilaterally. CARDIAC: Normal cardiac rhythm and sounds. ABDOMEN: Soft. EXTREMITIES: No cyanosis, clubbing, or edema. NEUROLOGIC: She is awake. Follows commands. Oriented x 2. Fluent speech. Normal response to visual threat bilaterally. Pupils reactive from 3 to 2 mm bilaterally. Extraocular movements intact. Corneal reflexes present bilaterally as well as gag. The patient moves bilateral extremities symmetrically, about 3/5 at least , on request and feels noxious stimuli. Deep tendon reflexes 1+ upper extremities, absent in lower extremities. Equivocal response to plantar stimulation bilaterally. Coordination OK UE, no tremor IMPRESSION: 1. Status post seizure. Etiology? Encephalopathy, improving. 2. The patient has human immunodeficiency virus with CD4 count of 157. 3. Ulcerative colitis. 4. Status post gastrointestinal bleed. 5. Status post sepsis. PLAN: Continue Keppra 500 twice daily. EEG c/w encephalopathy. MRI brain was normal. ID service is on case. Given improvement and normal MRI, no need for LP. I do not appreciate any meningeal signs. I will sign off. Call if questions. Problems: JAYME YEH MD Nov 27, 2016 20:43
[2016-11-27] MEDS: POTASSIUM CHLORIDE (SR) 20 MEQ TAB PO SCH (20:56)
[2016-11-27] MEDS: LEVETIRACETAM 500 MG TAB PO SCH (20:56)
[2016-11-27] MEDS: METOCLOPRAMIDE 5 MG TAB PO SCH (21:00)
[2016-11-28] VITALS (11 sets, daily range): BP systolic 123–127; BP diastolic 82–96; PULSE 86–116; RESP 17–18
[2016-11-28] MEDS: METOCLOPRAMIDE 10 MG INJ IV SCH (05:49)
[2016-11-28] MEDS: PANTOPRAZOLE (EC) 40 MG TAB PO SCH ×2 (06:48→17:22)
[2016-11-28] MEDS: VANCOMYCIN HCL 250 MG/5ML POSYG PO SCH ×3 (06:49→17:22)
[2016-11-28] MEDS: MESALAMINE (EC) 400 MG CAP PO SCH ×4 (08:40→20:38)
[2016-11-28] MEDS: VALGANCICLOVIR 450 MG TAB PO SCH ×2 (08:40→20:38)
[2016-11-28] MEDS: EMTRICITABINE/TENOFOVIR TAB PO SCH (08:40)
[2016-11-28] MEDS: LEVETIRACETAM 500 MG TAB PO SCH ×2 (08:41→20:38)
[2016-11-28] MEDS: FLUCONAZOLE 100 MG TAB PO SCH (08:41)
[2016-11-28] MEDS: METOCLOPRAMIDE 5 MG TAB PO SCH ×3 (08:41→20:38)
[2016-11-28] MEDS: EFAVIRENZ 600 MG TAB PO SCH (08:41)
[2016-11-28] MEDS: POTASSIUM CHLORIDE (SR) 20 MEQ TAB PO SCH ×2 (08:41→20:38)
[2016-11-28] MEDS: SUCRALFATE 1 GM TAB PO SCH ×4 (08:41→20:38)
[2016-11-28] MEDS: L ACIDOPHIL/B LACTIS/B LONGUM CAPSULE PO SCH ×2 (08:43→20:39)
[2016-11-28] MEDS: DEXTROSE 5%-0.225% NACL 1,000 ML IV SCH (08:44)
[2016-11-28] MEDS: CEFEPIME 1GM/50 ML (PMX) 50 ML IVPB SCH ×2 (09:00→20:37)
[2016-11-28 10:29] LABS: ADD SCAN DIFF NO
[2016-11-28 10:38] LABS: BASOPHILS % 0.3 % (0.0-2.0); EOSINOPHILS # 0.1 10^3/ul (0.0-0.5); EOSINOPHILS % 1.9 % (0.0-7.0); HEMATOCRIT 27.7 % (37.0-47.0); HEMOGLOBIN 8.8 g/dl (12.0-16.0); LYMPHOCYTES % 27.7 % (15.0-51.0); MEAN CORPUSCULAR HEMOGLOBIN 27.7 pg (29.0-33.0); MEAN CORPUSCULAR HGB CONC 31.8 g/dl (32.0-37.0); MEAN CORPUSCULAR VOLUME 87.1 fl (82.0-101.0); MEAN PLATELET VOLUME 8.9 fl (7.4-10.4); MONOCYTE # 0.2 10^3/ul (0.3-0.9); MONOCYTES % 5.5 % (0.0-11.0); NEUTROPHIL # 2.3 10^3/ul (1.6-7.5); NEUTROPHILS % 63.2 % (39.0-77.0); PLATELET COUNT 210 10^3/UL (140-415); RED BLOOD COUNT 3.18 10^6/ul (4.20-5.40); RED CELL DISTRIBUTION WIDTH 15.9 % (11.5-14.5); WHITE BLOOD COUNT 3.6 10^3/ul (4.8-10.8)
[2016-11-28 11:00] LABS: CALCIUM 7.3 mg/dl (8.4-10.2); CREATININE 0.51 mg/dl (0.44-1.00); MAGNESIUM 1.6 mg/dl (1.7-2.5); PHOSPHORUS 2.6 mg/dl (2.5-4.9); POTASSIUM 3.6 mmol/L (3.5-5.1)
--- NOTE | 2016-11-28 12:38 | PN ---
Date/Time of Note Date/Time of Note DATE: 11/28/16 TIME: 12:35 Assessment/Plan VTE Prophylaxis VTE Prophylaxis Intervention: SCD's Lines/Catheters IV Catheter Type (from Nrs): PICC Line Central line still needed: Yes Urinary Cath still in place: Yes Reason Cath still needed: urinary retention Assessment/Plan Assessment/Plan Assessment * Anemia EGD 11/12/2016 Severe ulcerated esophagitis/Inocencia esophagitis Colonoscopy 11/12/2016 [place] ulcerative colitis. Moderate sized internal hemorrhoids * HIV disease. * Anasarca/small amount of ascites * Probably ascitic fluid leak right lower quadrant * Malnutrition * UTI * Polysubstance abuse * History of psychiatric illness Plan * Continue present management Subjective 24 Hr Interval Summary Free Text/Dictation * Course reviewed with RN * Patient seen and examined * latest hemoglobin 8.8 Exam/Review of Systems Vital Signs Vitals Vital Signs Date Time Temp Pulse Resp B/P Pulse Ox O2 Delivery O2 Flow Rate FiO2 11/28/16 12:11 86 11/28/16 11:54 98.8 124/96 11/28/16 07:40 18 94 11/27/16 21:00 Room Air 11/26/16 10:17 21 11/26/16 08:00 2.0 Intake and Output 11/27/16 11/27/16 11/28/16 15:00 23:00 07:00 Intake Total 470 ml 300 ml 100 ml Output Total 850 ml 635 ml 950 ml Balance -380 ml -335 ml -850 ml Exam Constitutional: alert, frail Eyes: nl conjunctiva Neck: non-tender, supple Respiratory: clear to auscultation, normal air movement Cardiovascular: nl pulses, regular rate and rhythm Gastrointestinal: nl liver, spleen, non-tender, soft Musculoskeletal: muscle weakness Extremities: normal pulses Results Result Diagram: 11/28/16 1007 11/28/16 1007 Results 24 hrs Laboratory Tests Test 11/28/16 10:07 White Blood Count 3.6 #L Red Blood Count 3.18 L Hemoglobin 8.8 L Hematocrit 27.7 L Mean Corpuscular Volume 87.1 Mean Corpuscular Hemoglobin 27.7 L Mean Corpuscular Hemoglobin Concent 31.8 L Red Cell Distribution Width 15.9 H Platelet Count 210 Mean Platelet Volume 8.9 Neutrophils % 63.2 Lymphocytes % 27.7 Monocytes % 5.5 Eosinophils % 1.9 Basophils % 0.3 Nucleated Red Blood Cells % 0.0 Neutrophils # 2.3 Lymphocytes # 1.0 Monocytes # 0.2 L Eosinophils # 0.1 Basophils # 0.0 Nucleated Red Blood Cells # 0.0 Sodium Level 136 Potassium Level 3.6 Chloride Level 113 H Carbon Dioxide Level 23 Anion Gap 4 L Blood Urea Nitrogen 9 Creatinine 0.51 Glucose Level 91 Calcium Level 7.3 L Phosphorus Level 2.6 Magnesium Level 1.6 L Medications Medications Current Medications Ondansetron HCl (Zofran Inj) 4 mg Q6H PRN IV NAUSEA AND/OR VOMITING; Start at 16:00 Acetaminophen (Tylenol Tab) 650 mg Q6H PRN PO PAIN LEVEL 1-3 OR FEVER; Start at 16:00 Magnesium Hydroxide (Milk Of Mag) 30 ml DAILY PRN PO CONSTIPATION; Start at 16:00 Sodium Biphosphate/ Sodium Phosphate (Fleet Enema) 133 ml DAILY PRN [place] CONSTIPATION; Start 11/11/16 at 16:00 Hydralazine HCl (Apresoline) 10 mg Q6H PRN IV ELEVATED BLOOD PRESSURE; Start at 16:00 Nitroglycerin (Nitroglycerin (Sl Tab) 0.4 Mg) 1 tab Q5M PRN SL ANGINA Last administered on 11/11/16 23:25; Admin Dose 1 TAB; Start 11/11/16 at 16:00 Efavirenz (Sustiva) 600 mg DAILY PO Last administered on 11/28/16 08:41; Admin Dose 600 MG; Start 11/12/16 at 09:00 Emtricitabine/ Tenofovir (Truvada) 1 tab DAILY PO Last administered on 08:40; Admin Dose 1 TAB; Start 11/12/16 at 09:00 Sucralfate (Carafate) 1 gm QID PO Last administered on 11/28/16 08:41; Admin Dose 1 GM; Start 11/11/16 at 17:00 Valganciclovir (Valcyte) 450 mg Q12 PO Last administered on 11/28/16 08:40; Admin Dose 450 MG; Start 11/11/16 at 21:00 Collagenase (Santyl) 1 applic DAILY TOP Last administered on 11/27/16 10:00; Admin Dose 1 APPLIC; Start 11/12/16 at 13:00 Collagenase (Santyl) 1 applic PRN PRN TOP WOUND CARE; Start 11/12/16 at 12:00 Mesalamine (Delzicol Dr) 800 mg QID PO Last administered on 11/28/16 08:40; Admin Dose 800 MG; Start 11/12/16 at 21:00 Vancomycin HCl (Vancomycin Oral Syringe) 250 mg Q6 PO Last administered on 06:49; Admin Dose 250 MG; Start 11/12/16 at 19:30 Fluconazole (Diflucan) 100 mg DAILY PO Last administered on 11/28/16 08:41; Admin Dose 100 MG; Start 11/13/16 at 09:00 Lactobacillus Acidophilus (Florajen3 Capsule) 1 each BID PO Last administered on 11/28/16 08:43; Admin Dose 1 EACH; Start 11/13/16 at 21:00 Metoclopramide HCl 5 mg 5 mg Q8 IV Last administered on 11/27/16 14:41; Admin Dose 5 MG; Start 11/25/16 at 20:00 Dextrose/Sodium Chloride 1,000 ml @ 40 mls/hr Q24H IV Last administered on 11/28 08:44; Admin Dose 40 MLS/HR; Start 11/25/16 at 17:00 Cefepime HCl (Maxipime 1gm/50 ml (Pmx)) 50 ml @ 100 mls/hr Q12 IVPB Last administered on 11/27/16 20:56; Admin Dose 100 MLS/HR; Start 11/26/16 at 11:30 Ketorolac Tromethamine (Toradol) 15 mg Q6H PRN IV PAIN Last administered on 11/27 19:53; Admin Dose 15 MG; Start 11/26/16 at 15:30; Stop 11/29/16 at 15:29 Diphenhydramine HCl (Benadryl) 25 mg Q6H PRN IM SLEEP Last administered on 22:21; Admin Dose 25 MG; Start 11/26/16 at 15:30 Pantoprazole (Protonix Tab) 40 mg BID@06,18 PO Last administered on 11/28/16 06 :48; Admin Dose 40 MG; Start 11/28/16 at 06:00 Metoclopramide HCl (Reglan) 5 mg TID PO Last administered on 11/28/16 08:41; Admin Dose 5 MG; Start 11/27/16 at 21:00 Levetiracetam (Keppra) 500 mg BID PO Last administered on 11/28/16 08:41; Admin Dose 500 MG; Start 11/27/16 at 21:00 Potassium Chloride (Klor-Con 20) 40 meq BID PO Last administered on 11/28/16 08 :41; Admin Dose 40 MEQ; Start 11/27/16 at 21:00 LM LAMB MD Nov 28, 2016 12:38
--- NOTE | 2016-11-28 15:32 | CONS ---
Date/Time of Note Date/Time of Note DATE: 11/28/16 TIME: 15:31 Assessment/Plan Assessment/Plan Chief Complaint/Hosp Course SUBJECTIVE: No events overnight. No fevers. The patient is lying comfortably in bed, no fevers MICROBIOLOGY: Repeat blood and urine cultures negative. DIAGNOSTICS: Patient had MRI of the brain 11/27/16 revealed no evidence of acute intracranial pathology. There is right greater than left mastoid cell opacification. ANTIMICROBIALS: 1. Cefepime. 3. Oral vancomycin. 4. Fluconazole. 5. Truvada. 6. Sustiva. 7. Valcyte. PHYSICAL EXAMINATION: GENERAL: This is a chronically ill-appearing, cachectic, wasted, middle-aged white woman who is lying comfortably in bed. HEENT: Head atraumatic, normocephalic. Sclerae anicteric. Buccal mucosa dry. NECK: Supple. CHEST: Rise symmetrical. Breath sounds diminished. HEART: S1, S2. ABDOMEN: Soft. Bowel tones present. EXTREMITIES: Without cyanosis. Bilateral edema. SKIN: Positive for anasarca. ASSESSMENT: 1. Status post severe sepsis with shock. 2. Acute encephalopathy, possibly post-ictal. 3. Questionable mastoiditis. 4. Healthcare-acquired pneumonia, possibly aspiration. 5. Human immunodeficiency virus with CD4 count of 241. 6. Multiple chronic wounds. 7. History of Inocencia esophagitis. PLAN: The patient remains stable. Continue abx. Follow recommendations of consultants. dw staff Problems: Consultation Date/Type/Reason Admit Date/Time November 11, 2016 at 15:19 Initial Consult Date 11/11/16 Type of Consultation: ID Referring Provider: JESUS RUIZ Exam/Review of Systems Vital Signs Vitals Vital Signs Date Time Temp Pulse Resp B/P Pulse Ox O2 Delivery O2 Flow Rate FiO2 11/28/16 12:11 86 11/28/16 11:54 98.8 124/96 11/28/16 07:40 18 94 11/27/16 21:00 Room Air 11/26/16 10:17 21 11/26/16 08:00 2.0 Intake and Output 11/27/16 11/27/16 11/28/16 15:00 23:00 07:00 Intake Total 470 ml 300 ml 100 ml Output Total 850 ml 635 ml 950 ml Balance -380 ml -335 ml -850 ml Results Result Diagram: 6/9/17 1007 11/28/16 1007 Results 24 hrs Laboratory Tests Test 11/28/16 10:07 White Blood Count 3.6 #L Red Blood Count 3.18 L Hemoglobin 8.8 L Hematocrit 27.7 L Mean Corpuscular Volume 87.1 Mean Corpuscular Hemoglobin 27.7 L Mean Corpuscular Hemoglobin Concent 31.8 L Red Cell Distribution Width 15.9 H Platelet Count 210 Mean Platelet Volume 8.9 Neutrophils % 63.2 Lymphocytes % 27.7 Monocytes % 5.5 Eosinophils % 1.9 Basophils % 0.3 Nucleated Red Blood Cells % 0.0 Neutrophils # 2.3 Lymphocytes # 1.0 Monocytes # 0.2 L Eosinophils # 0.1 Basophils # 0.0 Nucleated Red Blood Cells # 0.0 Sodium Level 136 Potassium Level 3.6 Chloride Level 113 H Carbon Dioxide Level 23 Anion Gap 4 L Blood Urea Nitrogen 9 Creatinine 0.51 Glucose Level 91 Calcium Level 7.3 L Phosphorus Level 2.6 Magnesium Level 1.6 L Medications Medications Current Medications Ondansetron HCl (Zofran Inj) 4 mg Q6H PRN IV NAUSEA AND/OR VOMITING; Start at 16:00 Acetaminophen (Tylenol Tab) 650 mg Q6H PRN PO PAIN LEVEL 1-3 OR FEVER; Start at 16:00 Magnesium Hydroxide (Milk Of Mag) 30 ml DAILY PRN PO CONSTIPATION; Start at 16:00 Sodium Biphosphate/ Sodium Phosphate (Fleet Enema) 133 ml DAILY PRN [place] CONSTIPATION; Start 11/11/16 at 16:00 Hydralazine HCl (Apresoline) 10 mg Q6H PRN IV ELEVATED BLOOD PRESSURE; Start at 16:00 Nitroglycerin (Nitroglycerin (Sl Tab) 0.4 Mg) 1 tab Q5M PRN SL ANGINA Last administered on 11/11/16 23:25; Admin Dose 1 TAB; Start 11/11/16 at 16:00 Efavirenz (Sustiva) 600 mg DAILY PO Last administered on 11/28/16 08:41; Admin Dose 600 MG; Start 11/12/16 at 09:00 Emtricitabine/ Tenofovir (Truvada) 1 tab DAILY PO Last administered on 08:40; Admin Dose 1 TAB; Start 11/12/16 at 09:00 Sucralfate (Carafate) 1 gm QID PO Last administered on 11/28/16 12:56; Admin Dose 1 GM; Start 11/11/16 at 17:00 Valganciclovir (Valcyte) 450 mg Q12 PO Last administered on 11/28/16 08:40; Admin Dose 450 MG; Start 11/11/16 at 21:00 Collagenase (Santyl) 1 applic DAILY TOP Last administered on 11/27/16 10:00; Admin Dose 1 APPLIC; Start 11/12/16 at 13:00 Collagenase (Santyl) 1 applic PRN PRN TOP WOUND CARE; Start 11/12/16 at 12:00 Mesalamine (Delzicol Dr) 800 mg QID PO Last administered on 11/28/16 12:56; Admin Dose 800 MG; Start 11/12/16 at 21:00 Vancomycin HCl (Vancomycin Oral Syringe) 250 mg Q6 PO Last administered on 12:55; Admin Dose 250 MG; Start 11/12/16 at 19:30 Fluconazole (Diflucan) 100 mg DAILY PO Last administered on 11/28/16 08:41; Admin Dose 100 MG; Start 11/13/16 at 09:00 Lactobacillus Acidophilus (Florajen3 Capsule) 1 each BID PO Last administered on 11/28/16 08:43; Admin Dose 1 EACH; Start 11/13/16 at 21:00 Metoclopramide HCl 5 mg 5 mg Q8 IV Last administered on 11/27/16 14:41; Admin Dose 5 MG; Start 11/25/16 at 20:00 Dextrose/Sodium Chloride 1,000 ml @ 40 mls/hr Q24H IV Last administered on 11/28 08:44; Admin Dose 40 MLS/HR; Start 11/25/16 at 17:00 Cefepime HCl (Maxipime 1gm/50 ml (Pmx)) 50 ml @ 100 mls/hr Q12 IVPB Last administered on 11/28/16 09:00; Admin Dose 100 MLS/HR; Start 11/26/16 at 11:30 Ketorolac Tromethamine (Toradol) 15 mg Q6H PRN IV PAIN Last administered on 11/27 19:53; Admin Dose 15 MG; Start 11/26/16 at 15:30; Stop 11/29/16 at 15:29 Diphenhydramine HCl (Benadryl) 25 mg Q6H PRN IM SLEEP Last administered on 22:21; Admin Dose 25 MG; Start 11/26/16 at 15:30 Pantoprazole (Protonix Tab) 40 mg BID@,18 PO Last administered on 11/28/16 06 :48; Admin Dose 40 MG; Start 11/28/16 at 06:00 Metoclopramide HCl (Reglan) 5 mg TID PO Last administered on 11/28/16 12:56; Admin Dose 5 MG; Start 11/27/16 at 21:00 Levetiracetam (Keppra) 500 mg BID PO Last administered on 11/28/16 08:41; Admin Dose 500 MG; Start 11/27/16 at 21:00 Potassium Chloride (Klor-Con 20) 40 meq BID PO Last administered on 11/28/16 08 :41; Admin Dose 40 MEQ; Start 11/27/16 at 21:00 AGUILA BURGOS NP Nov 28, 2016 15:32
--- NOTE | 2016-11-28 15:47 | CONS ---
Date/Time of Note Date/Time of Note DATE: 11/28/16 TIME: 15:45 Consult Date/Type/Reason Admit Date/Time November 11, 2016 at 15:19 Initial Consult Date 11/26/16 Type of Consultation: Pulmonary Ordering Provider: JESUS RUIZ Subjective Patient comfortable at rest no new events Objective Vital Signs Date Time Temp Pulse Resp B/P Pulse Ox O2 Delivery O2 Flow Rate FiO2 11/28/16 15:43 97.9 114 18 127/84 100 11/27/16 21:00 Room Air 11/26/16 10:17 21 11/26/16 08:00 2.0 Intake and Output 11/27/16 11/27/16 11/28/16 14:59 22:59 06:59 Intake Total 470 ml 340 ml 100 ml Output Total 850 ml 735 ml 950 ml Balance -380 ml -395 ml -850 ml Exam GENERAL: Chronically ill-appearing lady no acute distress VITAL SIGNS: per chart NECK: Supple. No JVD or lymphadenopathy. CARDIAC EXAM: S1, S2. No added sounds or murmurs. CHEST: clear bilaterally, No added sounds, rales or wheezes ABDOMEN: Soft, nontender. No guarding or rebound. EXTREMITIES: No cyanosis, clubbing or edema. NEUROLOGIC: Generalized weakness. No focal deficits. Results/Medications Result Diagram: 11/28/16 1007 11/28/16 1007 Results 24 hrs Laboratory Tests Test 11/28/16 10:07 White Blood Count 3.6 #L Red Blood Count 3.18 L Hemoglobin 8.8 L Hematocrit 27.7 L Mean Corpuscular Volume 87.1 Mean Corpuscular Hemoglobin 27.7 L Mean Corpuscular Hemoglobin Concent 31.8 L Red Cell Distribution Width 15.9 H Platelet Count 210 Mean Platelet Volume 8.9 Neutrophils % 63.2 Lymphocytes % 27.7 Monocytes % 5.5 Eosinophils % 1.9 Basophils % 0.3 Nucleated Red Blood Cells % 0.0 Neutrophils # 2.3 Lymphocytes # 1.0 Monocytes # 0.2 L Eosinophils # 0.1 Basophils # 0.0 Nucleated Red Blood Cells # 0.0 Sodium Level 136 Potassium Level 3.6 Chloride Level 113 H Carbon Dioxide Level 23 Anion Gap 4 L Blood Urea Nitrogen 9 Creatinine 0.51 Glucose Level 91 Calcium Level 7.3 L Phosphorus Level 2.6 Magnesium Level 1.6 L Medications Current Medications Ondansetron HCl (Zofran Inj) 4 mg Q6H PRN IV NAUSEA AND/OR VOMITING; Start at 16:00 Acetaminophen (Tylenol Tab) 650 mg Q6H PRN PO PAIN LEVEL 1-3 OR FEVER; Start at 16:00 Magnesium Hydroxide (Milk Of Mag) 30 ml DAILY PRN PO CONSTIPATION; Start at 16:00 Sodium Biphosphate/ Sodium Phosphate (Fleet Enema) 133 ml DAILY PRN [place] CONSTIPATION; Start 11/11/16 at 16:00 Hydralazine HCl (Apresoline) 10 mg Q6H PRN IV ELEVATED BLOOD PRESSURE; Start at 16:00 Nitroglycerin (Nitroglycerin (Sl Tab) 0.4 Mg) 1 tab Q5M PRN SL ANGINA Last administered on 11/11/16 23:25; Admin Dose 1 TAB; Start 11/11/16 at 16:00 Efavirenz (Sustiva) 600 mg DAILY PO Last administered on 11/28/16 08:41; Admin Dose 600 MG; Start 11/12/16 at 09:00 Emtricitabine/ Tenofovir (Truvada) 1 tab DAILY PO Last administered on 08:40; Admin Dose 1 TAB; Start 11/12/16 at 09:00 Sucralfate (Carafate) 1 gm QID PO Last administered on 11/28/16 12:56; Admin Dose 1 GM; Start 11/11/16 at 17:00 Valganciclovir (Valcyte) 450 mg Q12 PO Last administered on 11/28/16 08:40; Admin Dose 450 MG; Start 11/11/16 at 21:00 Collagenase (Santyl) 1 applic DAILY TOP Last administered on 11/27/16 10:00; Admin Dose 1 APPLIC; Start 11/12/16 at 13:00 Collagenase (Santyl) 1 applic PRN PRN TOP WOUND CARE; Start 11/12/16 at 12:00 Mesalamine (Delzicol Dr) 800 mg QID PO Last administered on 11/28/16 12:56; Admin Dose 800 MG; Start 11/12/16 at 21:00 Vancomycin HCl (Vancomycin Oral Syringe) 250 mg Q6 PO Last administered on 12:55; Admin Dose 250 MG; Start 11/12/16 at 19:30 Fluconazole (Diflucan) 100 mg DAILY PO Last administered on 11/28/16 08:41; Admin Dose 100 MG; Start 11/13/16 at 09:00 Lactobacillus Acidophilus (Florajen3 Capsule) 1 each BID PO Last administered on 11/28/16 08:43; Admin Dose 1 EACH; Start 11/13/16 at 21:00 Metoclopramide HCl 5 mg 5 mg Q8 IV Last administered on 11/27/16 14:41; Admin Dose 5 MG; Start 11/25/16 at 20:00 Dextrose/Sodium Chloride 1,000 ml @ 40 mls/hr Q24H IV Last administered on 11/28 08:44; Admin Dose 40 MLS/HR; Start 11/25/16 at 17:00 Cefepime HCl (Maxipime 1gm/50 ml (Pmx)) 50 ml @ 100 mls/hr Q12 IVPB Last administered on 11/28/16 09:00; Admin Dose 100 MLS/HR; Start 11/26/16 at 11:30 Ketorolac Tromethamine (Toradol) 15 mg Q6H PRN IV PAIN Last administered on 11/27 19:53; Admin Dose 15 MG; Start 11/26/16 at 15:30; Stop 11/29/16 at 15:29 Diphenhydramine HCl (Benadryl) 25 mg Q6H PRN IM SLEEP Last administered on 22:21; Admin Dose 25 MG; Start 11/26/16 at 15:30 Pantoprazole (Protonix Tab) 40 mg BID@06,18 PO Last administered on 11/28/16 06 :48; Admin Dose 40 MG; Start 11/28/16 at 06:00 Metoclopramide HCl (Reglan) 5 mg TID PO Last administered on 11/28/16 12:56; Admin Dose 5 MG; Start 11/27/16 at 21:00 Levetiracetam (Keppra) 500 mg BID PO Last administered on 11/28/16 08:41; Admin Dose 500 MG; Start 11/27/16 at 21:00 Potassium Chloride (Klor-Con 20) 40 meq BID PO Last administered on 11/28/16t 08 :41; Admin Dose 40 MEQ; Start 11/27/16 at 21:00 Assessment/Plan Chief Complaint/Hosp Course Assessment 1. Pneumonia possibly aspiration 2. Status post hypoxemic respiratory failure secondary to above 3. History of HIV 4. History of anemia likely of chronic disease status post transfusion Plan 1. Continue antibiotics 2. Continue aspiration precautions 3. Broncho-dilators as needed Discharge planning okay from pulmonary standpoint Problems: SHADI GAUTAM MD, [facility] Nov 28, 2016 15:47
[2016-11-28] MEDS: COLLAGENASE 30 GM TUBE TOP SCH (16:42)
[2016-11-28] MEDS ORDERED: MAGNESIUM SULFATE 2 GM/50 ML 50 ML IVPB ONE ×2 (17:00→17:30)
--- NOTE | 2016-11-28 17:16 | PN ---
Date/Time of Note Date/Time of Note DATE: 11/28/16 TIME: 17:15 Assessment/Plan VTE Prophylaxis VTE Prophylaxis Intervention: LMWH Lines/Catheters IV Catheter Type (from Nrsg): PICC Line Central line still needed: Yes (IV access) Urinary Cath still in place: Yes Reason Cath still needed: skin wounds contaminated by urine Assessment/Plan Chief Complaint/Hosp Course S: 11/24 Feels good. Tolerating diet. No n/v/d. No further incontinence apparently. Still requiring care for ascitic fluid leak. 11/25: Events noted. Had an event of LOC/altered mental status yesterday evening. Witnessed seizure this am. 11/26: Improved, follows one-step commands. No further seizures. Cough? 11/27: Awake alert oriented. Recent tongue bite obviously. Positive cough but no dyspnea. 11/28: No events. No seizure, tolerating diet. Rectal tube out. O:Vss PE No pallor droop Reg Clear Bs dimin; nt nd. No r/r/g No edema; hypotonia noted Neuro: Nonfocal A/P 1. Shock, hemorrhagic, stable, resolved. Observe. 2. Ac blood loss anemia secondary to colitis, stable 3. Severe erosive esophagitis/PPI; decrease Reglan due to ams risk. Change to po. Cont Diflucan 4. Stewart ulcerative colitis, no evidence of C diff. Cont mesalamine. 5. 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 conservative care. Decreased IVFs. 6. Chr HIV 7. Substance abuse 8. Depression 9. Ac cystitis 10. Severe hypoalbuminemia; somewhat improved consider Megace, maybe Remeron. 11. Dyslipidemia 12. Hiatal hernia 13. Prediabetes 14. Subclinical hyperthyroidism 15. Syncope due to #1 resolved 16. Single episode seizure, lytes vs hypoxia related. Doubt encephalitis. ns changed to 1/2ns. EEG/MRI done. Cont Keppra. 17. Aspiration pneumonia/ HAP? Cont antibiotics. ST eval. 18. Diarrhea, decreased Reglan DC Colace. 19. Sinus tachycardia, stable follow. Problems: Exam/Review of Systems Vital Signs Vitals Vital Signs Date Time Temp Pulse Resp B/P Pulse Ox O2 Delivery O2 Flow Rate FiO2 11/28/16 16:18 116 11/28/16 15:43 97.9 18 127/84 100 11/27/16 21:00 Room Air 11/26/16 10:17 21 11/26/16 08:00 2.0 Intake and Output 11/27/16 11/27/16 11/28/16 15:00 23:00 07:00 Intake Total 470 ml 300 ml 100 ml Output Total 850 ml 635 ml 950 ml Balance -380 ml -335 ml -850 ml Results Result Diagram: 11/28/16 1007 11/28/16 1007 Results 24 hrs Laboratory Tests Test 11/28/16 10:07 White Blood Count 3.6 #L Red Blood Count 3.18 L Hemoglobin 8.8 L Hematocrit 27.7 L Mean Corpuscular Volume 87.1 Mean Corpuscular Hemoglobin 27.7 L Mean Corpuscular Hemoglobin Concent 31.8 L Red Cell Distribution Width 15.9 H Platelet Count 210 Mean Platelet Volume 8.9 Neutrophils % 63.2 Lymphocytes % 27.7 Monocytes % 5.5 Eosinophils % 1.9 Basophils % 0.3 Nucleated Red Blood Cells % 0.0 Neutrophils # 2.3 Lymphocytes # 1.0 Monocytes # 0.2 L Eosinophils # 0.1 Basophils # 0.0 Nucleated Red Blood Cells # 0.0 Sodium Level 136 Potassium Level 3.6 Chloride Level 113 H Carbon Dioxide Level 23 Anion Gap 4 L Blood Urea Nitrogen 9 Creatinine 0.51 Glucose Level 91 Calcium Level 7.3 L Phosphorus Level 2.6 Magnesium Level 1.6 L Medications Medications Current Medications Ondansetron HCl (Zofran Inj) 4 mg Q6H PRN IV NAUSEA AND/OR VOMITING; Start at 16:00 Acetaminophen (Tylenol Tab) 650 mg Q6H PRN PO PAIN LEVEL 1-3 OR FEVER; Start at 16:00 Magnesium Hydroxide (Milk Of Mag) 30 ml DAILY PRN PO CONSTIPATION; Start at 16:00 Sodium Biphosphate/ Sodium Phosphate (Fleet Enema) 133 ml DAILY PRN [place] CONSTIPATION; Start 11/11/16 at 16:00 Hydralazine HCl (Apresoline) 10 mg Q6H PRN IV ELEVATED BLOOD PRESSURE; Start at 16:00 Nitroglycerin (Nitroglycerin (Sl Tab) 0.4 Mg) 1 tab Q5M PRN SL ANGINA Last administered on 11/11/16t 23:25; Admin Dose 1 TAB; Start 11/11/16 at 16:00 Efavirenz (Sustiva) 600 mg DAILY PO Last administered on 11/28/16 08:41; Admin Dose 600 MG; Start 11/12/16 at 09:00 Emtricitabine/ Tenofovir (Truvada) 1 tab DAILY PO Last administered on 08:40; Admin Dose 1 TAB; Start 11/12/16 at 09:00 Sucralfate (Carafate) 1 gm QID PO Last administered on 11/28/16 16:42; Admin Dose 1 GM; Start 11/11/16 at 17:00 Valganciclovir (Valcyte) 450 mg Q12 PO Last administered on 11/28/16 08:40; Admin Dose 450 MG; Start 11/11/16 at 21:00 Collagenase (Santyl) 1 applic DAILY TOP Last administered on 11/28/16 16:42; Admin Dose 1 APPLIC; Start 11/12/16 at 13:00 Collagenase (Santyl) 1 applic PRN PRN TOP WOUND CARE; Start 11/12/16 at 12:00 Mesalamine (Delzicol Dr) 800 mg QID PO Last administered on 11/28/16 16:42; Admin Dose 800 MG; Start 11/12/16 at 21:00 Vancomycin HCl (Vancomycin Oral Syringe) 250 mg Q6 PO Last administered on 12:55; Admin Dose 250 MG; Start 11/12/16 at 19:30 Fluconazole (Diflucan) 100 mg DAILY PO Last administered on 11/28/16 08:41; Admin Dose 100 MG; Start 11/13/16 at 09:00 Lactobacillus Acidophilus 1 each 1 each BID PO Last administered on 11/28/16 08 :43; Admin Dose 1 EACH; Start 11/13/16 at 21:00 Dextrose/Sodium Chloride 1,000 ml @ 40 mls/hr Q24H IV Last administered on 11/28 08:44; Admin Dose 40 MLS/HR; Start 11/25/16 at 17:00 Cefepime HCl (Maxipime 1gm/50 ml (Pmx)) 50 ml @ 100 mls/hr Q12 IVPB Last administered on 11/28/16 09:00; Admin Dose 100 MLS/HR; Start 11/26/16 at 11:30 Ketorolac Tromethamine (Toradol) 15 mg Q6H PRN IV PAIN Last administered on 11/27 19:53; Admin Dose 15 MG; Start 11/26/16 at 15:30; Stop 11/29/16 at 15:29 Diphenhydramine HCl (Benadryl) 25 mg Q6H PRN IM SLEEP Last administered on 22:21; Admin Dose 25 MG; Start 11/26/16 at 15:30 Pantoprazole (Protonix Tab) 40 mg BID@06,18 PO Last administered on 11/28/16 06 :48; Admin Dose 40 MG; Start 11/28/16 at 06:00 Metoclopramide HCl (Reglan) 5 mg TID PO Last administered on 11/28/16 12:56; Admin Dose 5 MG; Start 11/27/16 at 21:00 Levetiracetam (Keppra) 500 mg BID PO Last administered on 11/28/16 08:41; Admin Dose 500 MG; Start 11/27/16 at 21:00 Potassium Chloride 40 meq 40 meq BID PO Last administered on 11/28/16 08:41; Admin Dose 40 MEQ; Start 11/27/16 at 21:00 Magnesium Sulfate (Magnesium Sulfate 2 Gm/50 ml) 50 ml @ 25 mls/hr ONCE ONCE IVPB Last administered on 11/28/16 16:42; Admin Dose 25 MLS/HR; Start 11/28/16 at 17:00; Stop 11/28/16 at 18:59 VALERIE LOBO MD Nov 28, 2016 17:16
--- NOTE | 2016-11-28 18:36 | CONS ---
Date/Time of Note Date/Time of Note DATE: 11/28/16 TIME: 18:34 Assessment/Plan Assessment/Plan Additional Assessment/Plan 1. Severe hyperchloremia with a chloride of 117, unclear etiology. 2. Acute encephalopathy. 3. Status post hemorrhagic shock. 4. Human immunodeficiency virus positive with CD4 count of 157. 5. Positive colitis. 6. Multiple decubitus ulcers. 7. Status post urinary tract infection and sepsis on admission. 8. Depression. 9. Hypomagnesemia PLAN: continue IVF D51/4NS at 60 cc/ hr, Cl 113, d/c IV fluids mag replaced for today BP stable afebrile will follow up Consultation Date/Type/Reason Admit Date/Time November 11, 2016 at 15:19 Initial Consult Date 11/26/16 Type of Consultation: NEHROLOGY Referring Provider: JESUS RUIZ Exam/Review of Systems Vital Signs Vitals Vital Signs Date Time Temp Pulse Resp B/P Pulse Ox O2 Delivery O2 Flow Rate FiO2 11/28/16 16:18 116 11/28/16 15:43 97.9 18 127/84 100 11/27/16 21:00 Room Air 11/26/16 10:17 21 11/26/16 08:00 2.0 Intake and Output 11/27/16 11/27/16 11/28/16 15:00 23:00 07:00 Intake Total 470 ml 300 ml 100 ml Output Total 850 ml 635 ml 950 ml Balance -380 ml -335 ml -850 ml Exam HEENT: Head atraumatic, normocephalic. Sclerae anicteric. Buccal mucosa dry. NECK: Supple. CHEST: Rise symmetrical. Breath sounds diminished. HEART: S1, S2. ABDOMEN: Soft. Bowel tones present. EXTREMITIES: Without cyanosis. Bilateral edema. SKIN: Positive for anasarca. Results Result Diagram: 11/28/16 1007 11/28/16 1007 Results 24 hrs Laboratory Tests Test 11/28/16 10:07 White Blood Count 3.6 #L Red Blood Count 3.18 L Hemoglobin 8.8 L Hematocrit 27.7 L Mean Corpuscular Volume 87.1 Mean Corpuscular Hemoglobin 27.7 L Mean Corpuscular Hemoglobin Concent 31.8 L Red Cell Distribution Width 15.9 H Platelet Count 210 Mean Platelet Volume 8.9 Neutrophils % 63.2 Lymphocytes % 27.7 Monocytes % 5.5 Eosinophils % 1.9 Basophils % 0.3 Nucleated Red Blood Cells % 0.0 Neutrophils # 2.3 Lymphocytes # 1.0 Monocytes # 0.2 L Eosinophils # 0.1 Basophils # 0.0 Nucleated Red Blood Cells # 0.0 Sodium Level 136 Potassium Level 3.6 Chloride Level 113 H Carbon Dioxide Level 23 Anion Gap 4 L Blood Urea Nitrogen 9 Creatinine 0.51 Glucose Level 91 Calcium Level 7.3 L Phosphorus Level 2.6 Magnesium Level 1.6 L Medications Medications Current Medications Ondansetron HCl (Zofran Inj) 4 mg Q6H PRN IV NAUSEA AND/OR VOMITING; Start at 16:00 Acetaminophen (Tylenol Tab) 650 mg Q6H PRN PO PAIN LEVEL 1-3 OR FEVER; Start at 16:00 Magnesium Hydroxide (Milk Of Mag) 30 ml DAILY PRN PO CONSTIPATION; Start at 16:00 Sodium Biphosphate/ Sodium Phosphate (Fleet Enema) 133 ml DAILY PRN [place] CONSTIPATION; Start 11/11/16 at 16:00 Hydralazine HCl (Apresoline) 10 mg Q6H PRN IV ELEVATED BLOOD PRESSURE; Start at 16:00 Nitroglycerin (Nitroglycerin (Sl Tab) 0.4 Mg) 1 tab Q5M PRN SL ANGINA Last administered on 11/11/16 23:25; Admin Dose 1 TAB; Start 11/11/16 at 16:00 Efavirenz (Sustiva) 600 mg DAILY PO Last administered on 11/28/16 08:41; Admin Dose 600 MG; Start 11/12/16 at 09:00 Emtricitabine/ Tenofovir (Truvada) 1 tab DAILY PO Last administered on 08:40; Admin Dose 1 TAB; Start 11/12/16 at 09:00 Sucralfate (Carafate) 1 gm QID PO Last administered on 11/28/16 16:42; Admin Dose 1 GM; Start 11/11/16 at 17:00 Valganciclovir (Valcyte) 450 mg Q12 PO Last administered on 11/28/16 08:40; Admin Dose 450 MG; Start 11/11/16 at 21:00 Collagenase (Santyl) 1 applic DAILY TOP Last administered on 11/28/16 16:42; Admin Dose 1 APPLIC; Start 11/12/16 at 13:00 Collagenase (Santyl) 1 applic PRN PRN TOP WOUND CARE; Start 11/12/16 at 12:00 Mesalamine (Delzicol Dr) 800 mg QID PO Last administered on 11/28/16 16:42; Admin Dose 800 MG; Start 11/12/16 at 21:00 Vancomycin HCl (Vancomycin Oral Syringe) 250 mg Q6 PO Last administered on 17:22; Admin Dose 250 MG; Start 11/12/16 at 19:30 Fluconazole (Diflucan) 100 mg DAILY PO Last administered on 11/28/16 08:41; Admin Dose 100 MG; Start 11/13/16 at 09:00 Lactobacillus Acidophilus 1 each 1 each BID PO Last administered on 11/28/16 08 :43; Admin Dose 1 EACH; Start 11/13/16 at 21:00 Dextrose/Sodium Chloride 1,000 ml @ 40 mls/hr Q24H IV Last administered on 11/28 08:44; Admin Dose 40 MLS/HR; Start 11/25/16 at 17:00; Stop 11/28/16 at 21:00 Cefepime HCl (Maxipime 1gm/50 ml (Pmx)) 50 ml @ 100 mls/hr Q12 IVPB Last administered on 11/28/16 09:00; Admin Dose 100 MLS/HR; Start 11/26/16 at 11:30 Ketorolac Tromethamine (Toradol) 15 mg Q6H PRN IV PAIN Last administered on 11/27 19:53; Admin Dose 15 MG; Start 11/26/16 at 15:30; Stop 11/29/16 at 15:29 Pantoprazole (Protonix Tab) 40 mg BID@06,18 PO Last administered on 11/28/16 17 :22; Admin Dose 40 MG; Start 11/28/16 at 06:00 Metoclopramide HCl (Reglan) 5 mg TID PO Last administered on 11/28/16 12:56; Admin Dose 5 MG; Start 11/27/16 at 21:00 Levetiracetam (Keppra) 500 mg BID PO Last administered on 11/28/16 08:41; Admin Dose 500 MG; Start 11/27/16 at 21:00 Potassium Chloride 40 meq 40 meq BID PO Last administered on 11/28/16 08:41; Admin Dose 40 MEQ; Start 11/27/16 at 21:00 Magnesium Sulfate (Magnesium Sulfate 2 Gm/50 ml) 50 ml @ 25 mls/hr ONCE ONCE IVPB Last administered on 11/28/16 16:42; Admin Dose 25 MLS/HR; Start 11/28/16 at 17:00; Stop 11/28/16 at 18:59 Enoxaparin Sodium (Lovenox) 40 mg DAILY SC ; Start 11/29/16 at 09:00 ASHISH MENDOZA MD Nov 28, 2016 18:36
[2016-11-28] MEDS: KETOROLAC 15 MG INJ IV PRN (20:39)
[2016-11-29] VITALS (12 sets, daily range): BP systolic 110–150; BP diastolic 55–99; PULSE 87–112; RESP 18–20
[2016-11-29] MEDS: VANCOMYCIN HCL 250 MG/5ML POSYG PO SCH ×4 (01:24→17:22)
[2016-11-29] MEDS: PANTOPRAZOLE (EC) 40 MG TAB PO SCH ×2 (06:24→17:22)
[2016-11-29] MEDS: CEFEPIME 1GM/50 ML (PMX) 50 ML IVPB SCH ×2 (08:48→20:27)
[2016-11-29] MEDS: LEVETIRACETAM 500 MG TAB PO SCH ×2 (08:49→20:28)
[2016-11-29] MEDS: L ACIDOPHIL/B LACTIS/B LONGUM CAPSULE PO SCH ×2 (08:49→20:33)
[2016-11-29] MEDS: FLUCONAZOLE 100 MG TAB PO SCH (08:49)
[2016-11-29] MEDS: VALGANCICLOVIR 450 MG TAB PO SCH ×2 (08:49→20:31)
[2016-11-29] MEDS: POTASSIUM CHLORIDE (SR) 20 MEQ TAB PO SCH ×2 (08:49→20:28)
[2016-11-29] MEDS: SUCRALFATE 1 GM TAB PO SCH ×4 (08:49→20:28)
[2016-11-29] MEDS: MESALAMINE (EC) 400 MG CAP PO SCH ×4 (08:49→20:28)
[2016-11-29] MEDS: EMTRICITABINE/TENOFOVIR TAB PO SCH (08:49)
[2016-11-29] MEDS: METOCLOPRAMIDE 5 MG TAB PO SCH ×3 (08:49→20:28)
[2016-11-29] MEDS: ENOXAPARIN 40 MG/0.4 ML SYG SC SCH (08:50)
--- NOTE | 2016-11-29 09:17 | PN ---
Date/Time of Note Date/Time of Note DATE: 11/29/16 TIME: 09:11 Assessment/Plan VTE Prophylaxis VTE Prophylaxis Intervention: SCD's Lines/Catheters IV Catheter Type (from [facility]): PICC Line Central line still needed: Yes Urinary Cath still in place: Yes Reason Cath still needed: urinary retention Assessment/Plan Assessment/Plan Assessment * Anemia hemoglobin 8.8 EGD 11/12/2016 Severe ulcerated esophagitis/Inocencia esophagitis Colonoscopy 11/12/2016 [place] ulcerative colitis. Moderate sized internal hemorrhoids * HIV disease. * Anasarca/small amount of ascites * Probably ascitic fluid leak right lower quadrant * Malnutrition * UTI * Polysubstance abuse * History of psychiatric illness Plan * Continue present management * advance diet as tolerated Subjective 24 Hr Interval Summary Free Text/Dictation * Course reviewed with RN * Patient seen and examined * episode of diarrhea x2 minimal * denies dysphagia Exam/Review of Systems Vital Signs Vitals Vital Signs Date Time Temp Pulse Resp B/P Pulse Ox O2 Delivery O2 Flow Rate FiO2 11/29/16 08:05 99 11/29/16 07:38 98.0 18 150/99 99 11/27/16 21:00 Room Air 11/26/16 10:17 21 11/26/16 08:00 2.0 Intake and Output 11/28/16 11/28/16 11/29/16 15:00 23:00 07:00 Intake Total 550 ml Output Total 150 ml Balance 400 ml Exam Constitutional: alert, frail Eyes: PERRL ENMT: mucosa pink and moist Neck: non-tender, supple Respiratory: clear to auscultation, diminished breath sounds, normal air movement Cardiovascular: nl pulses, regular rate and rhythm Gastrointestinal: distended, nl liver, spleen, non-tender, soft Musculoskeletal: swelling Extremities: edema Skin: rash or lesions (sacral and coccyx) Results Result Diagram: 11/28/16 1007 11/28/16 1007 Results 24 hrs Laboratory Tests Test 11/28/16 10:07 White Blood Count 3.6 #L Red Blood Count 3.18 L Hemoglobin 8.8 L Hematocrit 27.7 L Mean Corpuscular Volume 87.1 Mean Corpuscular Hemoglobin 27.7 L Mean Corpuscular Hemoglobin Concent 31.8 L Red Cell Distribution Width 15.9 H Platelet Count 210 Mean Platelet Volume 8.9 Neutrophils % 63.2 Lymphocytes % 27.7 Monocytes % 5.5 Eosinophils % 1.9 Basophils % 0.3 Nucleated Red Blood Cells % 0.0 Neutrophils # 2.3 Lymphocytes # 1.0 Monocytes # 0.2 L Eosinophils # 0.1 Basophils # 0.0 Nucleated Red Blood Cells # 0.0 Sodium Level 136 Potassium Level 3.6 Chloride Level 113 H Carbon Dioxide Level 23 Anion Gap 4 L Blood Urea Nitrogen 9 Creatinine 0.51 Glucose Level 91 Calcium Level 7.3 L Phosphorus Level 2.6 Magnesium Level 1.6 L Medications Medications Current Medications Ondansetron HCl (Zofran Inj) 4 mg Q6H PRN IV NAUSEA AND/OR VOMITING; Start at 16:00 Acetaminophen (Tylenol Tab) 650 mg Q6H PRN PO PAIN LEVEL 1-3 OR FEVER; Start at 16:00 Magnesium Hydroxide (Milk Of Mag) 30 ml DAILY PRN PO CONSTIPATION; Start at 16:00 Sodium Biphosphate/ Sodium Phosphate (Fleet Enema) 133 ml DAILY PRN [place] CONSTIPATION; Start 11/11/16 at 16:00 Hydralazine HCl (Apresoline) 10 mg Q6H PRN IV ELEVATED BLOOD PRESSURE; Start at 16:00 Nitroglycerin (Nitroglycerin (Sl Tab) 0.4 Mg) 1 tab Q5M PRN SL ANGINA Last administered on 11/11/16 23:25; Admin Dose 1 TAB; Start 11/11/16 at 16:00 Efavirenz (Sustiva) 600 mg DAILY PO Last administered on 11/28/16 08:41; Admin Dose 600 MG; Start 11/12/16 at 09:00 Emtricitabine/ Tenofovir (Truvada) 1 tab DAILY PO Last administered on 08:49; Admin Dose 1 TAB; Start 11/12/16 at 09:00 Sucralfate (Carafate) 1 gm QID PO Last administered on 11/29/16 08:49; Admin Dose 1 GM; Start 11/11/16 at 17:00 Valganciclovir (Valcyte) 450 mg Q12 PO Last administered on 11/29/16 08:49; Admin Dose 450 MG; Start 11/11/16 at 21:00 Collagenase (Santyl) 1 applic DAILY TOP Last administered on 11/28/16 16:42; Admin Dose 1 APPLIC; Start 11/12/16 at 13:00 Collagenase (Santyl) 1 applic PRN PRN TOP WOUND CARE; Start 11/12/16 at 12:00 Mesalamine (Delzicol Dr) 800 mg QID PO Last administered on 11/29/16 08:49; Admin Dose 800 MG; Start 11/12/16 at 21:00 Vancomycin HCl (Vancomycin Oral Syringe) 250 mg Q6 PO Last administered on 11/29 06:24; Admin Dose 250 MG; Start 11/12/16 at 19:30 Fluconazole (Diflucan) 100 mg DAILY PO Last administered on 11/29/16 08:49; Admin Dose 100 MG; Start 11/13/16 at 09:00 Lactobacillus Acidophilus 1 each 1 each BID PO Last administered on 11/29/16 08:49; Admin Dose 1 EACH; Start 11/13/16 at 21:00 Cefepime HCl (Maxipime 1gm/50 ml (Pmx)) 50 ml @ 100 mls/hr Q12 IVPB Last administered on 11/29/16 08:48; Admin Dose 100 MLS/HR; Start 11/26/16 at 11:30 Ketorolac Tromethamine (Toradol) 15 mg Q6H PRN IV PAIN Last administered on 11/28 20:39; Admin Dose 15 MG; Start 11/26/16 at 15:30; Stop 11/29/16 at 15:29 Pantoprazole (Protonix Tab) 40 mg BID@06,18 PO Last administered on 11/29/16 06:24; Admin Dose 40 MG; Start 11/28/16 at 06:00 Metoclopramide HCl (Reglan) 5 mg TID PO Last administered on 11/29/16 08:49; Admin Dose 5 MG; Start 11/27/16 at 21:00 Levetiracetam (Keppra) 500 mg BID PO Last administered on 11/29/16 08:49; Admin Dose 500 MG; Start 11/27/16 at 21:00 Potassium Chloride (Klor-Con 20) 40 meq BID PO Last administered on 11/29/16 08:49; Admin Dose 40 MEQ; Start 11/27/16 at 21:00 Enoxaparin Sodium (Lovenox) 40 mg DAILY SC Last administered on 11/29/16t 08:50 ; Admin Dose 40 MG; Start 11/29/16 at 09:00 GUCCI STROUD NP Nov 29, 2016 09:17
[2016-11-29] MEDS: EFAVIRENZ 600 MG TAB PO SCH (12:03)
[2016-11-29] MEDS ORDERED: MAGNESIUM SULFATE 3 GM in SOD CHLORIDE 0.9% 100 ML IVPB ONE (13:30)
[2016-11-29] MEDS: COLLAGENASE 30 GM TUBE TOP SCH (16:50)
--- NOTE | 2016-11-29 17:34 | CONS ---
Date/Time of Note Date/Time of Note DATE: 11/29/16 TIME: 17:31 Assessment/Plan Assessment/Plan Additional Assessment/Plan 1. Severe hyperchloremia with a chloride of 117, unclear etiology. Today 113 2. Acute encephalopathy- alert, follows commands 3. Status post hemorrhagic shock. 4. Human immunodeficiency virus positive with CD4 count of 157. 5. Positive colitis. 6. Multiple decubitus ulcers. 7. Status post urinary tract infection and sepsis on admission. 8. Depression. 9. Hypomagnesemia- Mag replated. am Mag level PLAN: -continue IVF D51/4NS at 60 cc/ hr, Cl 113, d/c IV fluids -mag replaced for today -BP stable -afebrile will follow up Further recommendations depend upon patient's clinical course. Plan of care tank Tony /staff Consultation Date/Type/Reason Admit Date/Time November 11, 2016 at 15:19 Initial Consult Date 11/26/16 Type of Consultation: NEHROLOGY Referring Provider: JESUS RUIZ 24 HR Interval Summary Free Text/Dictation alert, awake, c/o generalized body pain follows commands, afebrile, dw staff- no new issues reported. Detailed Summary Respiratory: no complaints Cardiovascular: no complaints Gastrointestinal: no complaints Exam/Review of Systems Vital Signs Vitals Vital Signs Date Time Temp Pulse Resp B/P Pulse Ox O2 Delivery O2 Flow Rate FiO2 11/29/16 16:05 112 11/29/16 16:04 98.0 18 145/96 97 11/27/16 21:00 Room Air 11/26/16 10:17 21 11/26/16 08:00 2.0 Intake and Output 11/28/16 11/28/16 11/29/16 15:00 23:00 07:00 Intake Total 550 ml Output Total 150 ml Balance 400 ml Exam Constitutional: alert Neck: non-tender Respiratory: diminished breath sounds, normal air movement Cardiovascular: nl pulses, regular rate and rhythm Gastrointestinal: non-tender, soft Musculoskeletal: other Extremities: edema Neurological: nl speech, other (alert/awake, follows commands. ) Skin: other (Anasarca, multi decubs) Results Result Diagram: 11/28/16 1007 11/28/16 1007 Medications Medications Current Medications Ondansetron HCl (Zofran Inj) 4 mg Q6H PRN IV NAUSEA AND/OR VOMITING; Start at 16:00 Acetaminophen (Tylenol Tab) 650 mg Q6H PRN PO PAIN LEVEL 1-3 OR FEVER; Start at 16:00 Magnesium Hydroxide (Milk Of Mag) 30 ml DAILY PRN PO CONSTIPATION; Start at 16:00 Sodium Biphosphate/ Sodium Phosphate (Fleet Enema) 133 ml DAILY PRN [place] CONSTIPATION; Start 11/11/16 at 16:00 Hydralazine HCl (Apresoline) 10 mg Q6H PRN IV ELEVATED BLOOD PRESSURE; Start at 16:00 Nitroglycerin (Nitroglycerin (Sl Tab) 0.4 Mg) 1 tab Q5M PRN SL ANGINA Last administered on 11/11/16 23:25; Admin Dose 1 TAB; Start 11/11/16 at 16:00 Efavirenz (Sustiva) 600 mg DAILY PO Last administered on 11/29/16 12:03; Admin Dose 600 MG; Start 11/12/16 at 09:00 Emtricitabine/ Tenofovir (Truvada) 1 tab DAILY PO Last administered on 08:49; Admin Dose 1 TAB; Start 11/12/16 at 09:00 Sucralfate (Carafate) 1 gm QID PO Last administered on 11/29/16 17:22; Admin Dose 1 GM; Start 11/11/16 at 17:00 Valganciclovir (Valcyte) 450 mg Q12 PO Last administered on 11/29/16 08:49; Admin Dose 450 MG; Start 11/11/16 at 21:00 Collagenase (Santyl) 1 applic DAILY TOP Last administered on 11/29/16 16:50; Admin Dose 1 APPLIC; Start 11/12/16 at 13:00 Collagenase (Santyl) 1 applic PRN PRN TOP WOUND CARE; Start 11/12/16 at 12:00 Mesalamine (Delzicol Dr) 800 mg QID PO Last administered on 11/29/16 17:22; Admin Dose 800 MG; Start 11/12/16 at 21:00 Vancomycin HCl (Vancomycin Oral Syringe) 250 mg Q6 PO Last administered on 11/29 17:22; Admin Dose 250 MG; Start 11/12/16 at 19:30 Fluconazole (Diflucan) 100 mg DAILY PO Last administered on 11/29/16 08:49; Admin Dose 100 MG; Start 11/13/16 at 09:00 Lactobacillus Acidophilus 1 each 1 each BID PO Last administered on 11/29/16 08:49; Admin Dose 1 EACH; Start 11/13/16 at 21:00 Cefepime HCl (Maxipime 1gm/50 ml (Pmx)) 50 ml @ 100 mls/hr Q12 IVPB Last administered on 11/29/16 08:48; Admin Dose 100 MLS/HR; Start 11/26/16 at 11:30 Pantoprazole (Protonix Tab) 40 mg BID@06,18 PO Last administered on 11/29/16 17:22; Admin Dose 40 MG; Start 11/28/16 at 06:00 Metoclopramide HCl (Reglan) 5 mg TID PO Last administered on 11/29/16 12:03; Admin Dose 5 MG; Start 11/27/16 at 21:00 Levetiracetam (Keppra) 500 mg BID PO Last administered on 11/29/16 08:49; Admin Dose 500 MG; Start 11/27/16 at 21:00 Potassium Chloride (Klor-Con 20) 40 meq BID PO Last administered on 11/29/16 08:49; Admin Dose 40 MEQ; Start 11/27/16 at 21:00 Enoxaparin Sodium (Lovenox) 40 mg DAILY SC Last administered on 11/29/16 08:50 ; Admin Dose 40 MG; Start 11/29/16 at 09:00 DAVE HERNADEZ Nov 29, 2016 17:34
--- NOTE | 2016-11-29 17:37 | CONS ---
Date/Time of Note Date/Time of Note DATE: 11/29/16 TIME: 17:35 Consult Date/Type/Reason Admit Date/Time November 11, 2016 at 15:19 Initial Consult Date 11/26/16 Type of Consultation: Pulm/CCM Ordering Provider: JESUS RUIZ Subjective No events Objective Vital Signs Date Time Temp Pulse Resp B/P Pulse Ox O2 Delivery O2 Flow Rate FiO2 11/29/16 16:05 112 11/29/16 16:04 98.0 18 145/96 97 11/27/16 21:00 Room Air 11/26/16: 21 11/26/16 08:00 2.0 Intake and Output 11/28/16 11/28/16 11/29/16 15:00 23:00 07:00 Intake Total 550 ml Output Total 150 ml Balance 400 ml Exam HEENT: Neck supple; no JVD; no LAD CVS: RRR, S1 and S2 CHEST: Clear ABD: Soft, NT, + BS EXT: No c/c/e Results/Medications Result Diagram: 11/28/16 1007 11/28/16 1007 Medications Current Medications Ondansetron HCl (Zofran Inj) 4 mg Q6H PRN IV NAUSEA AND/OR VOMITING; Start at 16:00 Acetaminophen (Tylenol Tab) 650 mg Q6H PRN PO PAIN LEVEL 1-3 OR FEVER; Start at 16:00 Magnesium Hydroxide (Milk Of Mag) 30 ml DAILY PRN PO CONSTIPATION; Start at 16:00 Sodium Biphosphate/ Sodium Phosphate (Fleet Enema) 133 ml DAILY PRN [place] CONSTIPATION; Start 11/11/16 at 16:00 Hydralazine HCl (Apresoline) 10 mg Q6H PRN IV ELEVATED BLOOD PRESSURE; Start at 16:00 Nitroglycerin (Nitroglycerin (Sl Tab) 0.4 Mg) 1 tab Q5M PRN SL ANGINA Last administered on 11/11/16 23:25; Admin Dose 1 TAB; Start 11/11/16 at 16:00 Efavirenz (Sustiva) 600 mg DAILY PO Last administered on 11/29/16 12:03; Admin Dose 600 MG; Start 11/12/16 at 09:00 Emtricitabine/ Tenofovir (Truvada) 1 tab DAILY PO Last administered on 08:49; Admin Dose 1 TAB; Start 11/12/16 at 09:00 Sucralfate (Carafate) 1 gm QID PO Last administered on 11/29/16 17:22; Admin Dose 1 GM; Start 11/11/16 at 17:00 Valganciclovir (Valcyte) 450 mg Q12 PO Last administered on 11/29/16 08:49; Admin Dose 450 MG; Start 11/11/16 at 21:00 Collagenase (Santyl) 1 applic DAILY TOP Last administered on 11/29/16 16:50; Admin Dose 1 APPLIC; Start 11/12/16 at 13:00 Collagenase (Santyl) 1 applic PRN PRN TOP WOUND CARE; Start 11/12/16 at 12:00 Mesalamine (Delzicol Dr) 800 mg QID PO Last administered on 11/29/16 17:22; Admin Dose 800 MG; Start 11/12/16 at 21:00 Vancomycin HCl (Vancomycin Oral Syringe) 250 mg Q6 PO Last administered on 11/29 17:22; Admin Dose 250 MG; Start 11/12/16 at 19:30 Fluconazole (Diflucan) 100 mg DAILY PO Last administered on 11/29/16 08:49; Admin Dose 100 MG; Start 11/13/16 at 09:00 Lactobacillus Acidophilus 1 each 1 each BID PO Last administered on 11/29/16 08:49; Admin Dose 1 EACH; Start 11/13/16 at 21:00 Cefepime HCl (Maxipime 1gm/50 ml (Pmx)) 50 ml @ 100 mls/hr Q12 IVPB Last administered on 11/29/16 08:48; Admin Dose 100 MLS/HR; Start 11/26/16 at 11:30 Pantoprazole (Protonix Tab) 40 mg BID@06,18 PO Last administered on 11/29/16 17:22; Admin Dose 40 MG; Start 11/28/16 at 06:00 Metoclopramide HCl (Reglan) 5 mg TID PO Last administered on 11/29/16 12:03; Admin Dose 5 MG; Start 11/27/16 at 21:00 Levetiracetam (Keppra) 500 mg BID PO Last administered on 11/29/16 08:49; Admin Dose 500 MG; Start 11/27/16 at 21:00 Potassium Chloride (Klor-Con 20) 40 meq BID PO Last administered on 11/29/16 08:49; Admin Dose 40 MEQ; Start 11/27/16 at 21:00 Enoxaparin Sodium (Lovenox) 40 mg DAILY SC Last administered on 11/29/16 08:50 ; Admin Dose 40 MG; Start 11/29/16 at 09:00 Assessment/Plan Additional Assessment/Plan IMP 1. Pneumonia possibly aspiration 2. Status post hypoxemic respiratory failure secondary to above 3. History of HIV 4. Anemia No new pulm recs VIRGILIO ROBBINS MD Nov 29, 2016 17:37
--- NOTE | 2016-11-29 18:55 | CONS ---
Date/Time of Note Date/Time of Note DATE: 11/29/16 TIME: 18:54 Assessment/Plan Assessment/Plan Chief Complaint/Hosp Course SUBJECTIVE: No events overnight. No fevers. The patient is awake, weak and confused with sluggish responses, nad, no fevers MICROBIOLOGY: Repeat blood and urine cultures negative. DIAGNOSTICS: Patient had MRI of the brain 11/27/16 revealed no evidence of acute intracranial pathology. There is right greater than left mastoid cell opacification. ANTIMICROBIALS: 1. Cefepime. 3. Oral vancomycin. 4. Fluconazole. 5. Truvada. 6. Sustiva. 7. Valcyte. PHYSICAL EXAMINATION: GENERAL: This is a chronically ill-appearing, cachectic, wasted, middle-aged white woman who is lying comfortably in bed. HEENT: Head atraumatic, normocephalic. Sclerae anicteric. Buccal mucosa dry. NECK: Supple. CHEST: Rise symmetrical. Breath sounds diminished. HEART: S1, S2. ABDOMEN: Soft. Bowel tones present. EXTREMITIES: Without cyanosis. Bilateral edema. SKIN: Positive for anasarca. ASSESSMENT: 1. Status post severe sepsis with shock. 2. Acute encephalopathy, possibly post-ictal. 3. Questionable mastoiditis. 4. Healthcare-acquired pneumonia, possibly aspiration. 5. Human immunodeficiency virus with CD4 count of 241. 6. Multiple chronic wounds. 7. History of Inocencia esophagitis. PLAN: The patient remains stable. Continue abx, aspiration precautions. Follow recommendations of consultants. dw staff Problems: Consultation Date/Type/Reason Admit Date/Time November 11, 2016 at 15:19 Initial Consult Date 11/11/16 Type of Consultation: ID Referring Provider: JESUS RUIZ Exam/Review of Systems Vital Signs Vitals Vital Signs Date Time Temp Pulse Resp B/P Pulse Ox O2 Delivery O2 Flow Rate FiO2 11/29/16 16:05 112 11/29/16 16:04 98.0 18 145/96 97 11/27/16 21:00 Room Air 11/26/16 10:17 21 11/26/16 08:00 2.0 Intake and Output 11/28/16 11/28/16 11/29/16 15:00 23:00 07:00 Intake Total 550 ml Output Total 150 ml Balance 400 ml Results Result Diagram: 11/28/16 1007 11/28/16 1007 Medications Medications Current Medications Ondansetron HCl (Zofran Inj) 4 mg Q6H PRN IV NAUSEA AND/OR VOMITING; Start at 16:00 Acetaminophen (Tylenol Tab) 650 mg Q6H PRN PO PAIN LEVEL 1-3 OR FEVER; Start at 16:00 Magnesium Hydroxide (Milk Of Mag) 30 ml DAILY PRN PO CONSTIPATION; Start at 16:00 Sodium Biphosphate/ Sodium Phosphate (Fleet Enema) 133 ml DAILY PRN [place] CONSTIPATION; Start 11/11/16 at 16:00 Hydralazine HCl (Apresoline) 10 mg Q6H PRN IV ELEVATED BLOOD PRESSURE; Start at 16:00 Nitroglycerin (Nitroglycerin (Sl Tab) 0.4 Mg) 1 tab Q5M PRN SL ANGINA Last administered on 11/11/16 23:25; Admin Dose 1 TAB; Start 11/11/16 at 16:00 Efavirenz (Sustiva) 600 mg DAILY PO Last administered on 11/29/16 12:03; Admin Dose 600 MG; Start 11/12/16 at 09:00 Emtricitabine/ Tenofovir (Truvada) 1 tab DAILY PO Last administered on 08:49; Admin Dose 1 TAB; Start 11/12/16 at 09:00 Sucralfate (Carafate) 1 gm QID PO Last administered on 11/29/16 17:22; Admin Dose 1 GM; Start 11/11/16 at 17:00 Valganciclovir (Valcyte) 450 mg Q12 PO Last administered on 11/29/16 08:49; Admin Dose 450 MG; Start 11/11/16 at 21:00 Collagenase (Santyl) 1 applic DAILY TOP Last administered on 11/29/16 16:50; Admin Dose 1 APPLIC; Start 11/12/16 at 13:00 Collagenase (Santyl) 1 applic PRN PRN TOP WOUND CARE; Start 11/12/16 at 12:00 Mesalamine (Delzicol Dr) 800 mg QID PO Last administered on 11/29/16 17:22; Admin Dose 800 MG; Start 11/12/16 at 21:00 Vancomycin HCl (Vancomycin Oral Syringe) 250 mg Q6 PO Last administered on 11/29 17:22; Admin Dose 250 MG; Start 11/12/16 at 19:30 Fluconazole (Diflucan) 100 mg DAILY PO Last administered on 11/29/16 08:49; Admin Dose 100 MG; Start 11/13/16 at 09:00 Lactobacillus Acidophilus 1 each 1 each BID PO Last administered on 11/29/16 08:49; Admin Dose 1 EACH; Start 11/13/16 at 21:00 Cefepime HCl (Maxipime 1gm/50 ml (Pmx)) 50 ml @ 100 mls/hr Q12 IVPB Last administered on 11/29/16 08:48; Admin Dose 100 MLS/HR; Start 11/26/16 at 11:30 Pantoprazole (Protonix Tab) 40 mg BID@06,18 PO Last administered on 11/29/16 17:22; Admin Dose 40 MG; Start 11/28/16 at 06:00 Metoclopramide HCl (Reglan) 5 mg TID PO Last administered on 11/29/16 12:03; Admin Dose 5 MG; Start 11/27/16 at 21:00 Levetiracetam (Keppra) 500 mg BID PO Last administered on 11/29/16 08:49; Admin Dose 500 MG; Start 11/27/16 at 21:00 Potassium Chloride (Klor-Con 20) 40 meq BID PO Last administered on 11/29/16 08:49; Admin Dose 40 MEQ; Start 11/27/16 at 21:00 Enoxaparin Sodium (Lovenox) 40 mg DAILY SC Last administered on 11/29/16 08:50 ; Admin Dose 40 MG; Start 11/29/16 at 09:00 AGUILA BURGOS NP Nov 29, 2016 18:55
[2016-11-30] VITALS (12 sets, daily range): BP systolic 118–134; BP diastolic 67–99; PULSE 99–117; RESP 18–20
[2016-11-30] MEDS: PANTOPRAZOLE (EC) 40 MG TAB PO SCH ×2 (06:10→17:23)
[2016-11-30] MEDS: VANCOMYCIN HCL 250 MG/5ML POSYG PO SCH ×4 (06:10→17:25)
[2016-11-30] MEDS ORDERED: FUROSEMIDE 20 MG TAB PO ONE (09:00)
[2016-11-30] MEDS: EFAVIRENZ 600 MG TAB PO SCH (09:39)
[2016-11-30] MEDS: FLUCONAZOLE 100 MG TAB PO SCH (09:39)
[2016-11-30] MEDS: CEFEPIME 1GM/50 ML (PMX) 50 ML IVPB SCH ×2 (09:39→20:19)
[2016-11-30] MEDS: EMTRICITABINE/TENOFOVIR TAB PO SCH (09:39)
[2016-11-30] MEDS: MESALAMINE (EC) 400 MG CAP PO SCH ×4 (09:39→20:18)
[2016-11-30] MEDS: VALGANCICLOVIR 450 MG TAB PO SCH ×2 (09:39→20:15)
[2016-11-30] MEDS: METOCLOPRAMIDE 5 MG TAB PO SCH ×3 (09:40→20:14)
[2016-11-30] MEDS: POTASSIUM CHLORIDE (SR) 20 MEQ TAB PO SCH ×2 (09:40→20:15)
[2016-11-30] MEDS: L ACIDOPHIL/B LACTIS/B LONGUM CAPSULE PO SCH ×2 (09:40→20:15)
[2016-11-30] MEDS: LEVETIRACETAM 500 MG TAB PO SCH ×2 (09:40→20:15)
[2016-11-30] MEDS: SUCRALFATE 1 GM TAB PO SCH ×4 (09:41→20:15)
[2016-11-30] MEDS: ENOXAPARIN 40 MG/0.4 ML SYG SC SCH (09:43)
--- NOTE | 2016-11-30 10:24 | PN ---
Date/Time of Note Date/Time of Note DATE: 11/30/16 TIME: 10:21 Assessment/Plan VTE Prophylaxis VTE Prophylaxis Intervention: SCD's Lines/Catheters IV Catheter Type (from Nrsg): PICC Line Central line still needed: Yes Urinary Cath still in place: Yes Reason Cath still needed: urinary retention Assessment/Plan Assessment/Plan Assessment * Anemia hemoglobin EGD 11/12/2016 Severe ulcerated esophagitis/Inocencia esophagitis Colonoscopy 11/12/2016 [place] ulcerative colitis. Moderate sized internal hemorrhoids * HIV disease. * Anasarca/small amount of ascites * Probably ascitic fluid leak right lower quadrant * Malnutrition * UTI * Polysubstance abuse * History of psychiatric illness Plan * Continue present management * advance diet as tolerated Subjective 24 Hr Interval Summary Free Text/Dictation * Course reviewed with RN * Patient seen and examined * tolerating diet .no dysphagia * Diarrhea x2 minimal in amount Exam/Review of Systems Vital Signs Vitals Vital Signs Date Time Temp Pulse Resp B/P Pulse Ox O2 Delivery O2 Flow Rate FiO2 11/30/16 08:02 101 11/30/16 07:56 98.2 18 133/87 98 11/27/16 21:00 Room Air 11/26/16 10:17 21 11/26/16 08:00 2.0 Intake and Output 11/29/16 11/29/16 11/30/16 15:00 23:00 07:00 Intake Total 350 ml 650 ml Output Total 400 ml 700 ml Balance -50 ml -50 ml Exam Constitutional: alert, frail Neck: non-tender, supple Respiratory: diminished breath sounds, normal air movement Cardiovascular: nl pulses, regular rate and rhythm Gastrointestinal: bowel sounds, distended, nl liver, spleen, soft, No rebound or guarding Musculoskeletal: nl extremities to inspection, nl gait and stance Extremities: normal pulses Neurological: other (weak) Skin: rash or lesions Results Result Diagram: 11/28/16 1007 11/28/16 1007 Medications Medications Current Medications Ondansetron HCl (Zofran Inj) 4 mg Q6H PRN IV NAUSEA AND/OR VOMITING; Start at 16:00 Acetaminophen (Tylenol Tab) 650 mg Q6H PRN PO PAIN LEVEL 1-3 OR FEVER; Start at 16:00 Magnesium Hydroxide (Milk Of Mag) 30 ml DAILY PRN PO CONSTIPATION; Start at 16:00 Sodium Biphosphate/ Sodium Phosphate (Fleet Enema) 133 ml DAILY PRN [place] CONSTIPATION; Start 11/11/16 at 16:00 Hydralazine HCl (Apresoline) 10 mg Q6H PRN IV ELEVATED BLOOD PRESSURE; Start at 16:00 Nitroglycerin (Nitroglycerin (Sl Tab) 0.4 Mg) 1 tab Q5M PRN SL ANGINA Last administered on 11/11/16 23:25; Admin Dose 1 TAB; Start 11/11/16 at 16:00 Efavirenz (Sustiva) 600 mg DAILY PO Last administered on 11/30/16 09:39; Admin Dose 600 MG; Start 11/12/16 at 09:00 Emtricitabine/ Tenofovir (Truvada) 1 tab DAILY PO Last administered on 09:39; Admin Dose 1 TAB; Start 11/12/16 at 09:00 Sucralfate (Carafate) 1 gm QID PO Last administered on 11/30/16 09:41; Admin Dose 1 GM; Start 11/11/16 at 17:00 Valganciclovir (Valcyte) 450 mg Q12 PO Last administered on 11/30/16 09:39; Admin Dose 450 MG; Start 11/11/16 at 21:00 Collagenase (Santyl) 1 applic DAILY TOP Last administered on 11/29/16 16:50; Admin Dose 1 APPLIC; Start 11/12/16 at 13:00 Collagenase (Santyl) 1 applic PRN PRN TOP WOUND CARE; Start 11/12/16 at 12:00 Mesalamine (Delzicol Dr) 800 mg QID PO Last administered on 11/30/16 09:39; Admin Dose 800 MG; Start 11/12/16 at 21:00 Vancomycin HCl (Vancomycin Oral Syringe) 250 mg Q6 PO Last administered on 11/30 06:10; Admin Dose 250 MG; Start 11/12/16 at 19:30 Fluconazole (Diflucan) 100 mg DAILY PO Last administered on 11/30/16 09:39; Admin Dose 100 MG; Start 11/13/16 at 09:00 Lactobacillus Acidophilus 1 each 1 each BID PO Last administered on 11/30/16 09:40; Admin Dose 1 EACH; Start 11/13/16 at 21:00 Cefepime HCl (Maxipime 1gm/50 ml (Pmx)) 50 ml @ 100 mls/hr Q12 IVPB Last administered on 11/30/16 09:39; Admin Dose 100 MLS/HR; Start 11/26/16 at 11:30 Pantoprazole (Protonix Tab) 40 mg BID@06,18 PO Last administered on 11/30/16 06:10; Admin Dose 40 MG; Start 11/28/16 at 06:00 Metoclopramide HCl (Reglan) 5 mg TID PO Last administered on 11/30/16 09:40; Admin Dose 5 MG; Start 11/27/16 at 21:00 Levetiracetam (Keppra) 500 mg BID PO Last administered on 11/30/16 09:40; Admin Dose 500 MG; Start 11/27/16 at 21:00 Potassium Chloride (Klor-Con 20) 40 meq BID PO Last administered on 11/30/16 09:40; Admin Dose 40 MEQ; Start 11/27/16 at 21:00 Enoxaparin Sodium (Lovenox) 40 mg DAILY SC Last administered on 11/30/16 09:43 ; Admin Dose 40 MG; Start 11/29/16 at 09:00 LM LAMB MD Nov 30, 2016 10:24
--- NOTE | 2016-11-30 11:24 | CONS ---
Date/Time of Note Date/Time of Note DATE: 11/30/16 TIME: 11:21 Assessment/Plan Assessment/Plan Additional Assessment/Plan No labs available yet 1. Severe hyperchloremia with a chloride of 117, unclear etiology. Today 113 2. Acute encephalopathy- alert, follows commands 3. Status post hemorrhagic shock. 4. Human immunodeficiency virus positive with CD4 count of 157. 5. Positive colitis. 6. Multiple decubitus ulcers. 7. Status post urinary tract infection and sepsis on admission. 8. Depression. PLAN: -continue IVF D51/4NS at 60 cc/ hr, Cl 113, d/c IV fluids -BP stable -afebrile will follow up Further recommendations depend upon patient's clinical course. Plan of care dw Dr Tony /staff Consultation Date/Type/Reason Admit Date/Time November 11, 2016 at 15:19 Initial Consult Date 11/26/16 Type of Consultation: ID Referring Provider: JESUS RUIZ Exam/Review of Systems Vital Signs Vitals Vital Signs Date Time Temp Pulse Resp B/P Pulse Ox O2 Delivery O2 Flow Rate FiO2 11/30/16 08:02 101 11/30/16 07:56 98.2 18 133/87 98 11/27/16 21:00 Room Air 11/26/16 10:17 21 11/26/16 08:00 2.0 Intake and Output 11/29/16 11/29/16 11/30/16 15:00 23:00 07:00 Intake Total 350 ml 650 ml Output Total 400 ml 700 ml Balance -50 ml -50 ml Exam Constitutional: alert Neck: non-tender Respiratory: clear to auscultation, normal air movement Cardiovascular: nl pulses, other (ST-117), regular rate and rhythm Gastrointestinal: non-tender, soft Musculoskeletal: swelling Extremities: edema Neurological: nl speech Skin: other Results Result Diagram: 11/28/16 1007 11/28/16 1007 Medications Medications Current Medications Ondansetron HCl (Zofran Inj) 4 mg Q6H PRN IV NAUSEA AND/OR VOMITING; Start at 16:00 Acetaminophen (Tylenol Tab) 650 mg Q6H PRN PO PAIN LEVEL 1-3 OR FEVER; Start at 16:00 Magnesium Hydroxide (Milk Of Mag) 30 ml DAILY PRN PO CONSTIPATION; Start at 16:00 Sodium Biphosphate/ Sodium Phosphate (Fleet Enema) 133 ml DAILY PRN [place] CONSTIPATION; Start 11/11/16 at 16:00 Hydralazine HCl (Apresoline) 10 mg Q6H PRN IV ELEVATED BLOOD PRESSURE; Start at 16:00 Nitroglycerin (Nitroglycerin (Sl Tab) 0.4 Mg) 1 tab Q5M PRN SL ANGINA Last administered on 11/11/16 23:25; Admin Dose 1 TAB; Start 11/11/16 at 16:00 Efavirenz (Sustiva) 600 mg DAILY PO Last administered on 11/30/16 09:39; Admin Dose 600 MG; Start 11/12/16 at 09:00 Emtricitabine/ Tenofovir (Truvada) 1 tab DAILY PO Last administered on 09:39; Admin Dose 1 TAB; Start 11/12/16 at 09:00 Sucralfate (Carafate) 1 gm QID PO Last administered on 11/30/16 09:41; Admin Dose 1 GM; Start 11/11/16 at 17:00 Valganciclovir (Valcyte) 450 mg Q12 PO Last administered on 11/30/16 09:39; Admin Dose 450 MG; Start 11/11/16 at 21:00 Collagenase (Santyl) 1 applic DAILY TOP Last administered on 11/29/16 16:50; Admin Dose 1 APPLIC; Start 11/12/16 at 13:00 Collagenase (Santyl) 1 applic PRN PRN TOP WOUND CARE; Start 11/12/16 at 12:00 Mesalamine (Delzicol Dr) 800 mg QID PO Last administered on 11/30/16 09:39; Admin Dose 800 MG; Start 11/12/16 at 21:00 Vancomycin HCl (Vancomycin Oral Syringe) 250 mg Q6 PO Last administered on 11/30 06:10; Admin Dose 250 MG; Start 11/12/16 at 19:30 Fluconazole (Diflucan) 100 mg DAILY PO Last administered on 11/30/16 09:39; Admin Dose 100 MG; Start 11/13/16 at 09:00 Lactobacillus Acidophilus 1 each 1 each BID PO Last administered on 11/30/16 09:40; Admin Dose 1 EACH; Start 11/13/16 at 21:00 Cefepime HCl (Maxipime 1gm/50 ml (Pmx)) 50 ml @ 100 mls/hr Q12 IVPB Last administered on 11/30/16 09:39; Admin Dose 100 MLS/HR; Start 11/26/16 at 11:30 Pantoprazole (Protonix Tab) 40 mg BID@06,18 PO Last administered on 11/30/16 06:10; Admin Dose 40 MG; Start 11/28/16 at 06:00 Metoclopramide HCl (Reglan) 5 mg TID PO Last administered on 11/30/16 09:40; Admin Dose 5 MG; Start 11/27/16 at 21:00 Levetiracetam (Keppra) 500 mg BID PO Last administered on 11/30/16 09:40; Admin Dose 500 MG; Start 11/27/16 at 21:00 Potassium Chloride (Klor-Con 20) 40 meq BID PO Last administered on 11/30/16 09:40; Admin Dose 40 MEQ; Start 11/27/16 at 21:00 Enoxaparin Sodium (Lovenox) 40 mg DAILY SC Last administered on 11/30/16 09:43 ; Admin Dose 40 MG; Start 11/29/16 at 09:00 DAVE HERNADEZ Nov 30, 2016 11:24 DAVE HERNADEZ Nov 30, 2016 11:24
[2016-11-30 12:04] LABS: ALBUMIN/GLOBULIN RATIO 0.68; CALCIUM 7.5 mg/dl (8.4-10.2); CREATININE 0.5 mg/dl (0.44-1.00); MAGNESIUM 1.6 mg/dl (1.7-2.5); POTASSIUM 3.9 mmol/L (3.5-5.1); TOTAL PROTEIN 4.9 g/dl (6.1-8.1)
[2016-11-30] MEDS ORDERED: MAGNESIUM SULFATE 2 GM/50 ML 50 ML IVPB ONE (12:30)
[2016-11-30] MEDS ORDERED: ASA400 PO (12:45)
[2016-11-30] MEDS ORDERED: MAGN400T28 PO (12:45)
[2016-11-30] MEDS ORDERED: ACET325T40 PO (12:45)
[2016-11-30] MEDS ORDERED: ENOX40DI12 SC (12:45)
[2016-11-30] MEDS ORDERED: LEVE-5 PO (12:45)
[2016-11-30] MEDS ORDERED: Vancomycin Oral Syringe PO (12:45)
[2016-11-30] MEDS ORDERED: FLUC100T PO (12:45)
[2016-11-30] MEDS ORDERED: POTA20TA15 PO (12:45)
[2016-11-30] MEDS ORDERED: ALBU18HF INH (12:45)
[2016-11-30] MEDS ORDERED: L.AC460C PO (12:45)
[2016-11-30] MEDS ORDERED: ERGO500037 PO (12:45)
[2016-11-30] MEDS ORDERED: METO5TAB11 PO (12:45)
[2016-11-30] MEDS ORDERED: POTASSIUM PHOSPHATE 30 MM in SOD CHLORIDE 0.9% 250 ML IVPB ONE (14:00)
[2016-11-30] MEDS: COLLAGENASE 30 GM TUBE TOP SCH (15:40)
--- NOTE | 2016-11-30 16:33 | DS ---
DATE OF ADMISSION: 11/11/2016 DATE OF DISCHARGE: 12/01/2016 PRIMARY CARE PHYSICIAN: Unknown. HOOP FLARING MACHINE OPERATOR: Dr. Carrasco, Dr. Espinoza, Dr. Mckoy, Dr. Macarena Sam, Dr. Gema Gao, Dr. Norman maharaj, and Dr. Smith. DIAGNOSIS ON ADMISSION: Hemorrhagic shock. DIAGNOSES ON DISCHARGE: 1. Hemorrhagic shock. 2. [place] ulcerative colitis. 3. Severe erosive esophagitis. 4. Substance abuse. 5. Anasarca. 6. Syncope. 7. Aspiration pneumonia. 8. Single episode of seizure. 9. Sinus tachycardia. HOSPITAL COURSE: This is a 41-year-old female admitted for shock, found to be hemorrhage. She was transfused. The source was colitis. The patient was seen by GI and noted to have universal ulcerative colitis. She was placed on mesala mine. She appears to be stable and improving. She is tolerating a diet. EGD additionally showed s evere erosive esophagitis. The patient was placed on PPI and Reglan and Diflucan. We have had to c ut back on her Reglan due to altered mental status. She will need to follow up with GI. 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 It was probably due to a traumatic triple lumen IV site. As her anasarca has improved, this leakage h as improved as well. Continue colostomy bag for collection of fluid as needed. Chronic HIV status. Recommend advance care planning, reevaluate. Substance abuse counseling as needed. Depression. Behavioral health eval as needed. Acute cystitis, resolved. Severe hypoalbuminemia, somewhat improving, stable. Follow. Add protein shakes. Dyslipidemia, stable. Continue Lipitor. Hiatal hernia. Continue Protonix. Prediabetes. Subclinical hyperthyroidism. Syncope secondary to hemorrhagic shock. This is resolved. While on the floor, the patient had a single episode of seizure. This is probably due to electrolyt e issues. This is resolved. No evidence of encephalitis. The patient was seen by neurology, EEG a nd MRI done. We will continue Keppra for now. She does not drive a car. Keppra may be discontinue d down the line. Due to the seizure, the patient probably had an aspiration pneumonia. She is finishing her antibiot ics. The patient has diarrhea due to multiple etiologies. Rectal bag has been discontinued. Reglan has been decreased. Colitis has improved. The patient has required lots of IV magnesium sulfate due to electrolyte discomfort. Colace has been discontinued and may be restarted soon for bowel care tammi men. The patient will continue on antibiotics even though there is possibly an adverse drug event f rom metabolic as well, but more likely due to all the other comorbid issues. Sinus tachycardia, no acute process, probably due to the abdominal discomfort, Hughes, or rectal tube , etc. No dyspnea. Lungs are clear. No hypoxia. Follow clinically. Does not need beta boo. I would treat the primary cause. The patient is already on Lovenox for DVT prophylaxis. Failure to thrive. Discharge to SNF. DISCHARGE PLAN: The patient will be discharged to SNF. DIET: Regular, low cholesterol. ACTIVITY: No driving. DURABLE MEDICAL EQUIPMENT: Pending. Hughes catheter and for wound care assistance. BARRIERS TO DISCHARGE: Placement. PENDING TESTS: None. FUNCTIONAL STATUS: The patient is awake, alert, agrees to the plan of care. She does not talk much to begin with. No family at bedside. No questions from the patient. She is awake, alert, oriente d to herself and year, does not answer questions to months or hospital. REASON FOR ADMISSION: Shock. Appointment: 1. Primary in [address] Carrasco in 2 to [address] Espinoza in 2 to [address] Mckoy as needed. 5. Dr. Smith as needed. 6. Dr. Gema Gao as needed. 7. Dr. Kemar Sam as needed. IMAGING STUDIES: MRI brain, no acute process, possible mastoiditis. Chest x-ray from the 6th was r ead as left lower greater than right lower lobe pneumonia with small bilateral effusions. CAT scan of brain: No acute process. Abdominal CT from the 3rd read as anasarca, diffuse soft tissue thicke jazmine and bowel wall edema throughout the entirety of the stomach, small bowel, and large bowel, repr esenting third spacing of fluid, bilateral layering moderate size effusion, nodular opacity lower marko ngs could represent area of localized edema or infection, hepatomegaly, moderate hiatal hernia. Jarod robiology negative for urine, blood, MRSA, and nares. Body fluid no growth from the 2nd. C. diff t esting negative. Urine culture on admission from the catheter I believe shows 10 to 60,000 E. coli proteus. ESBL E. coli was seen on 11/12/2016 from an unknown sample, probably a contaminants, with 1+ epithelial cells present. Sodium 135, potassium 3.9, chloride 110, bicarbonate 24, BUN of 11, creatinine 0.5, glucose of 101, calcium of 7.5, magnesium is 1.6, albumin is 2.0, protein of 4.9, alkaline phosphatase of 178, phosp horus of 1.9, being replaced. TSH of 2.7. Cortisol level of 26. A1c of 5.5. Triglycerides 157, L DL unable to be calculated, HDL of apparently 8, total of less than 50% apparently, vitamin D level of 5. White cell count of 3.6, hemoglobin and hematocrit of 8.8 and 27, MCV 87, platelets of 210. Hemoglobin was as low as 4.6 on admission. INR 1.1. DISCHARGE MEDICATIONS: 1. Lipitor 20 daily. 2. Sustiva 600 daily. 3. Truvada 200 to 300 daily. 4. Protonix 40 b.i.d. 5. Carafate 1 gram q.i.d. 6. Valacyclovir 450 q. 12. STOPPED MEDICATIONS: None. ALTERED MEDICATIONS: 1. Mesalamine 400 mg 4 times daily. 2. Cefepime 1 gram IV q. 4 hours. 3. Diflucan 100 daily. 4. Vancomycin oral 250 mg every 6 hours. 5. Albuterol as needed. 6. Lovenox 40 subcutaneous daily. 7. Tylenol as needed. 8. Keppra 500 b.i.d. maybe for 6 months. 9. Potassium 40 b.i.d. 10. Culturelle 1 capsule twice daily. 11. Magnesium oxide 400 t.i.d. 12. Reglan 5 mg t.i.d. 13. Santyl as directed. Add Hughes catheter. Dictated By: VALERIE LOBO MD AC/NTS Conf#: [id number] DID#: [id number] CC: GINNY ESPINOZA MD; LM CARRASCO; JAYME MCKOY MD; SHADI SMITH MD; GEMA GAO MD; Angela SAM MD;*EndCC*
--- NOTE | 2016-11-30 17:15 | CONS ---
Date/Time of Note Date/Time of Note DATE: 11/30/16 TIME: 17:14 Consult Date/Type/Reason Admit Date/Time November 11, 2016 at 15:19 Initial Consult Date 11/26/16 Type of Consultation: Pulm Ordering Provider: JESUS RUIZ Subjective No events. Objective Vital Signs Date Time Temp Pulse Resp B/P Pulse Ox O2 Delivery O2 Flow Rate FiO2 11/30/16 16:02 112 11/30/16 15:12 98.0 18 131/99 100 11/27/16 21:00 Room Air 11/26/16 10:17 21 11/26/16 08:00 2.0 Intake and Output 11/29/16 11/29/16 11/30/16 15:00 23:00 07:00 Intake Total 350 ml 650 ml Output Total 400 ml 700 ml Balance -50 ml -50 ml Exam HEENT: Neck supple; no JVD; no LAD CVS: RRR, S1 and S2 CHEST: Clear ABD: Soft, NT, + BS EXT: No c/c/e Results/Medications Result Diagram: 11/28/16 1007 11/30/16 1126 Results 24 hrs Laboratory Tests Test 11/30/16 11:26 Sodium Level 135 Potassium Level 3.9 Chloride Level 110 Carbon Dioxide Level 24 Anion Gap 5 L Blood Urea Nitrogen 11 Creatinine 0.50 Glucose Level 101 Calcium Level 7.5 L Phosphorus Level 1.9 L Magnesium Level 1.6 L Total Bilirubin 0.0 L Direct Bilirubin 0.00 Indirect Bilirubin 0.0 Aspartate Amino Transf (AST/SGOT) 22 Alanine Aminotransferase (ALT/SGPT) 35 Alkaline Phosphatase 178 H Total Protein 4.9 L Albumin 2.0 L Globulin 2.90 Albumin/Globulin Ratio 0.68 Medications Current Medications Ondansetron HCl (Zofran Inj) 4 mg Q6H PRN IV NAUSEA AND/OR VOMITING; Start at 16:00 Acetaminophen (Tylenol Tab) 650 mg Q6H PRN PO PAIN LEVEL 1-3 OR FEVER; Start at 16:00 Magnesium Hydroxide (Milk Of Mag) 30 ml DAILY PRN PO CONSTIPATION; Start at 16:00 Sodium Biphosphate/ Sodium Phosphate (Fleet Enema) 133 ml DAILY PRN [place] CONSTIPATION; Start 11/11/16 at 16:00 Hydralazine HCl (Apresoline) 10 mg Q6H PRN IV ELEVATED BLOOD PRESSURE; Start at 16:00 Nitroglycerin (Nitroglycerin (Sl Tab) 0.4 Mg) 1 tab Q5M PRN SL ANGINA Last administered on 11/11/16 23:25; Admin Dose 1 TAB; Start 11/11/16 at 16:00 Efavirenz (Sustiva) 600 mg DAILY PO Last administered on 11/30/16 09:39; Admin Dose 600 MG; Start 11/12/16 at 09:00 Emtricitabine/ Tenofovir (Truvada) 1 tab DAILY PO Last administered on 09:39; Admin Dose 1 TAB; Start 11/12/16 at 09:00 Sucralfate (Carafate) 1 gm QID PO Last administered on 11/30/16 12:20; Admin Dose 1 GM; Start 11/11/16 at 17:00 Valganciclovir (Valcyte) 450 mg Q12 PO Last administered on 11/30/16 09:39; Admin Dose 450 MG; Start 11/11/16 at 21:00 Collagenase (Santyl) 1 applic DAILY TOP Last administered on 11/30/16 15:40; Admin Dose 1 APPLIC; Start 11/12/16 at 13:00 Collagenase (Santyl) 1 applic PRN PRN TOP WOUND CARE; Start 11/12/16 at 12:00 Mesalamine (Delzicol Dr) 800 mg QID PO Last administered on 11/30/16 12:20; Admin Dose 800 MG; Start 11/12/16 at 21:00 Vancomycin HCl (Vancomycin Oral Syringe) 250 mg Q6 PO Last administered on 11/30 12:20; Admin Dose 250 MG; Start 11/12/16 at 19:30 Fluconazole (Diflucan) 100 mg DAILY PO Last administered on 11/30/16 09:39; Admin Dose 100 MG; Start 11/13/16 at 09:00 Lactobacillus Acidophilus 1 each 1 each BID PO Last administered on 11/30/16 09:40; Admin Dose 1 EACH; Start 11/13/16 at 21:00 Cefepime HCl (Maxipime 1gm/50 ml (Pmx)) 50 ml @ 100 mls/hr Q12 IVPB Last administered on 11/30/16 09:39; Admin Dose 100 MLS/HR; Start 11/26/16 at 11:30 Pantoprazole (Protonix Tab) 40 mg BID@06,18 PO Last administered on 11/30/16 06:10; Admin Dose 40 MG; Start 11/28/16 at 06:00 Metoclopramide HCl (Reglan) 5 mg TID PO Last administered on 11/30/16 12:20; Admin Dose 5 MG; Start 11/27/16 at 21:00 Levetiracetam (Keppra) 500 mg BID PO Last administered on 11/30/16 09:40; Admin Dose 500 MG; Start 11/27/16 at 21:00 Potassium Chloride (Klor-Con 20) 40 meq BID PO Last administered on 11/30/16 09:40; Admin Dose 40 MEQ; Start 11/27/16 at 21:00 Enoxaparin Sodium 40 mg 40 mg DAILY SC Last administered on 11/30/16 09:43; Admin Dose 40 MG; Start 11/29/16 at 09:00 Potassium Phosphate/Sodium Chloride (K Phos (Mm)/NS) 260 ml @ 65 mls/hr ONCE ONCE IVPB Last administered on 11/30/16 15:40; Admin Dose 65 MLS/HR; Start 05/08 at 14:00; Stop 11/30/16 at 17:59 Magnesium Oxide (Mag-Ox 400) 400 mg TID PO ; Start 11/30/16 at 21:00 Assessment/Plan Additional Assessment/Plan IMP 1. Pneumonia possibly aspiration 2. Status post hypoxemic respiratory failure secondary to above 3. History of HIV 4. Anemia Ok to d/c from pulm standpoint VIRGILIO ROBBINS MD Nov 30, 2016 17:15
[2016-11-30] MEDS: MAGNESIUM OXIDE 400 MG TAB PO SCH (20:14)
[2016-12-01] VITALS (13 sets, daily range): BP systolic 115–136; BP diastolic 72–96; PULSE 84–110; RESP 18–20
[2016-12-01] MEDS: VANCOMYCIN HCL 250 MG/5ML POSYG PO SCH ×4 (00:35→18:32)
[2016-12-01] MEDS: PANTOPRAZOLE (EC) 40 MG TAB PO SCH ×2 (06:03→18:32)
[2016-12-01 07:34] LABS: ADD SCAN DIFF NO
[2016-12-01 07:41] LABS: BASOPHILS % 0.3 % (0.0-2.0); EOSINOPHILS # 0.1 10^3/ul (0.0-0.5); EOSINOPHILS % 1.7 % (0.0-7.0); HEMOGLOBIN 8.1 g/dl (12.0-16.0); LYMPHOCYTES # 0.9 10^3/ul (0.8-2.9); LYMPHOCYTES % 32.2 % (15.0-51.0); MEAN CORPUSCULAR HEMOGLOBIN 28.1 pg (29.0-33.0); MEAN CORPUSCULAR HGB CONC 32.4 g/dl (32.0-37.0); MEAN CORPUSCULAR VOLUME 86.8 fl (82.0-101.0); MEAN PLATELET VOLUME 9.1 fl (7.4-10.4); MONOCYTE # 0.2 10^3/ul (0.3-0.9); MONOCYTES % 7.9 % (0.0-11.0); NEUTROPHIL # 1.6 10^3/ul (1.6-7.5); NEUTROPHILS % 54.8 % (39.0-77.0); PLATELET COUNT 211 10^3/UL (140-415); RED BLOOD COUNT 2.88 10^6/ul (4.20-5.40); RED CELL DISTRIBUTION WIDTH 15.8 % (11.5-14.5); WHITE BLOOD COUNT 2.9 10^3/ul (4.8-10.8)
--- NOTE | 2016-12-01 07:58 | PN ---
DATE: 11/28/2016 Palliative care followup note The patient is in the intensive care unit at [facility]. Please refer to my prior note. The patient is somewhat improved at this time. She is conversing, she remains confused and somnolent, having difficulty in answering questions. I have had a conversation with case management today, and my recommendations would be to try and encourage the patient when she is discharged to [facility] on hospice care. I will have a talk with her about that in addition. I do agree that the patient should be referred to adult protective services at the time of discharge. Dictated By: IESHA MARTINEZ MD, LP/NTS Conf#: [id number] DID#: [id number]
[2016-12-01 08:06] LABS: MAGNESIUM 1.9 mg/dl (1.7-2.5); PHOSPHORUS 2.8 mg/dl (2.5-4.9)
[2016-12-01 08:20] LABS: POTASSIUM 4.6 mmol/L (3.5-5.1)
[2016-12-01 08:21] LABS: CALCIUM 7.9 mg/dl (8.4-10.2); CREATININE 0.42 mg/dl (0.44-1.00)
[2016-12-01] MEDS: CEFEPIME 1GM/50 ML (PMX) 50 ML IVPB SCH ×2 (09:50→20:52)
[2016-12-01] MEDS: POTASSIUM CHLORIDE (SR) 20 MEQ TAB PO SCH ×2 (09:50→20:53)
[2016-12-01] MEDS: SUCRALFATE 1 GM TAB PO SCH ×4 (09:50→20:53)
[2016-12-01] MEDS: LEVETIRACETAM 500 MG TAB PO SCH ×2 (09:50→20:53)
[2016-12-01] MEDS: MAGNESIUM OXIDE 400 MG TAB PO SCH ×3 (09:51→20:53)
[2016-12-01] MEDS: METOCLOPRAMIDE 5 MG TAB PO SCH ×3 (09:51→20:53)
[2016-12-01] MEDS: EFAVIRENZ 600 MG TAB PO SCH (09:51)
[2016-12-01] MEDS: MESALAMINE (EC) 400 MG CAP PO SCH ×4 (09:51→20:53)
[2016-12-01] MEDS: FLUCONAZOLE 100 MG TAB PO SCH (09:51)
[2016-12-01] MEDS: VALGANCICLOVIR 450 MG TAB PO SCH ×2 (09:51→20:53)
[2016-12-01] MEDS: L ACIDOPHIL/B LACTIS/B LONGUM CAPSULE PO SCH ×2 (09:51→20:52)
[2016-12-01] MEDS: EMTRICITABINE/TENOFOVIR TAB PO SCH (09:58)
--- NOTE | 2016-12-01 10:29 | PN ---
Date/Time of Note Date/Time of Note DATE: 12/01/16 TIME: 10:26 Assessment/Plan VTE Prophylaxis VTE Prophylaxis Intervention: LMWH Lines/Catheters IV Catheter Type (from [facility]): PICC Line Central line still needed: Yes Urinary Cath still in place: Yes Reason Cath still needed: other (indicate) Assessment/Plan Chief Complaint/Hosp Course 1. Lower gastrointestinal bleeding. Status post upper and lower endoscopy on 11/13/2016 that showed severe ulcerative esophagitis and a universal ulcerative colitis. Continue management as per Gastroenterology. Continue Mesalamine and Protonix. 2. Severe anemia secondary to #1, status post PRBC and platelet transfusion. Continue to monitor H&H closely. Transfuse as needed. 3. Human immunodeficiency virus/acquired immunodeficiency syndrome. CD4 count less than 35. CD4 count 157. Continue HAART. 4. Deconditioning. Physical therapy. 5. Multiple chronic wounds that are infected. Continue antimicrobials as per Infectious Disease. 6. History of polysubstance abuse. 7. History of depression and post-traumatic stress disorder. Continue mood stabilizers. 8. Urinary tract infection with E. coli and Proteus mirabilis. Continue antibiotics as per Infectious Disease. 9. Severe protein calorie malnutrition. Continue protein supplements. 10. Right lower quadrant abdominal orifice draining clear fluid. General surgery consult has been called. Status post evaluation by wound care. 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 Urology has been consulted. CT scan of the abdomen and pelvis with contrast was done as per urology recommendations. CT scan showed pronounced anasarca of the abdomen and pelvis present with diffuse soft tissue thickening and bowel wall edema throughout the entirety of the stomach, small bowel and large bowel. Continue pressure dressing. Resolved. 11. Seizure disorder (single witnessed episode). Status post evaluation by neurology. Continue anticonvulsants. 12. Possible aspiration pneumonia. Continue antibiotics as per infectious diseases. Aspiration precautions. 13. Fluid, electrolytes and nutrition. Regular diet. 14. Deep vein thrombosis prophylaxis. Subcutaneous Lovenox. 15. Gastrointestinal prophylaxis. Proton pump inhibitors. 16. Plan. Continue current management. Await placement. Case discussed with Dr. Swanson. Problems: Subjective 24 Hr Interval Summary Free Text/Dictation The patient remains afebrile. Exam/Review of Systems Vital Signs Vitals Vital Signs Date Time Temp Pulse Resp B/P Pulse Ox O2 Delivery O2 Flow Rate FiO2 12/01/16 08:29 98.8 100 20 126/89 98 11/27/16 21:00 Room Air Intake and Output 11/30/16 11/30/16 12/01/16 15:00 23:00 07:00 Intake Total 50 ml 750 ml 450 ml Output Total 1200 ml 1200 ml Balance 50 ml -450 ml -750 ml Exam GENERAL: This is a 41-year-old female who appears malnourished, lying in bed in no apparent distress. HEENT: Head normocephalic and atraumatic. Eyes: Anicteric sclerae. Conjunctivae clear. ENT: Nasal septum is midline. Oral mucosa is dry. NECK: Supple. No JVD noticed. RESPIRATORY: Bilaterally clear to auscultation. No adventitious breath sounds heard. No use of accessory muscles of respiration. CARDIAC: Regular rate and rhythm. No murmurs heard. ABDOMEN: Soft, nontender and nondistended. Bowel sounds positive in all 4 quadrants. GENITOURINARY: Deferred. EXTREMITIES: No cyanosis, no clubbing. Bilateral lower extremity edema. Peripheral pulses palpable. NEUROLOGIC: The patient is awake, alert and oriented. Cranial nerves are grossly intact. Results Result Diagram: 12/01/16 0640 12/01/16 0640 Results 24 hrs Laboratory Tests Test 11/30/16 11:26 12/01/16 06:40 Sodium Level 135 135 Potassium Level 3.9 4.6 Chloride Level 110 106 Carbon Dioxide Level 24 27 Anion Gap 5 L 7 L Blood Urea Nitrogen 11 11 Creatinine 0.50 0.42 L Glucose Level 101 80 Calcium Level 7.5 L 7.9 L Phosphorus Level 1.9 L 2.8 Magnesium Level 1.6 L 1.9 Total Bilirubin 0.0 L Direct Bilirubin 0.00 Indirect Bilirubin 0.0 Aspartate Amino Transf (AST/SGOT) 22 Alanine Aminotransferase (ALT/SGPT) 35 Alkaline Phosphatase 178 H Total Protein 4.9 L Albumin 2.0 L Globulin 2.90 Albumin/Globulin Ratio 0.68 White Blood Count 2.9 L Red Blood Count 2.88 L Hemoglobin 8.1 L Hematocrit 25.0 L Mean Corpuscular Volume 86.8 Mean Corpuscular Hemoglobin 28.1 L Mean Corpuscular Hemoglobin Concent 32.4 Red Cell Distribution Width 15.8 H Platelet Count 211 Mean Platelet Volume 9.1 Neutrophils % 54.8 Lymphocytes % 32.2 Monocytes % 7.9 Eosinophils % 1.7 Basophils % 0.3 Nucleated Red Blood Cells % 0.0 Neutrophils # 1.6 Lymphocytes # 0.9 Monocytes # 0.2 L Eosinophils # 0.1 Basophils # 0.0 Nucleated Red Blood Cells # 0.0 Medications Medications Current Medications Ondansetron HCl (Zofran Inj) 4 mg Q6H PRN IV NAUSEA AND/OR VOMITING Last administered on 12/01/16 09:59; Admin Dose 4 MG; Start 11/11/16 at 16:00 Acetaminophen (Tylenol Tab) 650 mg Q6H PRN PO PAIN LEVEL 1-3 OR FEVER; Start at 16:00 Magnesium Hydroxide (Milk Of Mag) 30 ml DAILY PRN PO CONSTIPATION; Start at 16:00 Sodium Biphosphate/ Sodium Phosphate (Fleet Enema) 133 ml DAILY PRN [place] CONSTIPATION; Start 11/11/16 at 16:00 Hydralazine HCl (Apresoline) 10 mg Q6H PRN IV ELEVATED BLOOD PRESSURE; Start at 16:00 Nitroglycerin (Nitroglycerin (Sl Tab) 0.4 Mg) 1 tab Q5M PRN SL ANGINA Last administered on 11/11/16 23:25; Admin Dose 1 TAB; Start 11/11/16 at 16:00 Efavirenz (Sustiva) 600 mg DAILY PO Last administered on 12/01/16 09:51; Admin Dose 600 MG; Start 11/12/16 at 09:00 Emtricitabine/ Tenofovir (Truvada) 1 tab DAILY PO Last administered on 09:58; Admin Dose 1 TAB; Start 11/12/16 at 09:00 Sucralfate (Carafate) 1 gm QID PO Last administered on 12/01/16 09:50; Admin Dose 1 GM; Start 11/11/16 at 17:00 Valganciclovir (Valcyte) 450 mg Q12 PO Last administered on 12/01/16 09:51; Admin Dose 450 MG; Start 11/11/16 at 21:00 Collagenase (Santyl) 1 applic DAILY TOP Last administered on 11/30/16 15:40; Admin Dose 1 APPLIC; Start 11/12/16 at 13:00 Collagenase (Santyl) 1 applic PRN PRN TOP WOUND CARE; Start 11/12/16 at 12:00 Mesalamine (Delzicol Dr) 800 mg QID PO Last administered on 12/01/16 09:51; Admin Dose 800 MG; Start 11/12/16 at 21:00 Vancomycin HCl (Vancomycin Oral Syringe) 250 mg Q6 PO Last administered on 12/01 06:03; Admin Dose 250 MG; Start 11/12/16 at 19:30 Fluconazole (Diflucan) 100 mg DAILY PO Last administered on 12/01/16 09:51; Admin Dose 100 MG; Start 11/13/16 at 09:00 Lactobacillus Acidophilus 1 each 1 each BID PO Last administered on 12/01/16 09:51; Admin Dose 1 EACH; Start 11/13/16 at 21:00 Cefepime HCl (Maxipime 1gm/50 ml (Pmx)) 50 ml @ 100 mls/hr Q12 IVPB Last administered on 12/01/16 09:50; Admin Dose 100 MLS/HR; Start 11/26/16 at 11:30 Pantoprazole (Protonix Tab) 40 mg BID@06,18 PO Last administered on 12/01/16 06:03; Admin Dose 40 MG; Start 11/28/16 at 06:00 Metoclopramide HCl (Reglan) 5 mg TID PO Last administered on 12/01/16 09:51; Admin Dose 5 MG; Start 11/27/16 at 21:00 Levetiracetam (Keppra) 500 mg BID PO Last administered on 12/01/16 09:50; Admin Dose 500 MG; Start 11/27/16 at 21:00 Potassium Chloride (Klor-Con 20) 40 meq BID PO Last administered on 12/01/16 09:50; Admin Dose 40 MEQ; Start 11/27/16 at 21:00 Enoxaparin Sodium (Lovenox) 40 mg DAILY SC Last administered on 11/30/16 09:43 ; Admin Dose 40 MG; Start 11/29/16 at 09:00 Magnesium Oxide (Mag-Ox 400) 400 mg TID PO Last administered on 12/01/16 09:51 ; Admin Dose 400 MG; Start 11/30/16 at 21:00 TK PERALES NP Dec 01, 2016 10:28
[2016-12-01] MEDS: COLLAGENASE 30 GM TUBE TOP SCH (13:01)
[2016-12-01] MEDS: ENOXAPARIN 40 MG/0.4 ML SYG SC SCH (13:03)
--- NOTE | 2016-12-01 13:04 | CONS ---
Date/Time of Note Date/Time of Note DATE: 12/01/16 TIME: 13:04 Consult Date/Type/Reason Admit Date/Time November 11, 2016 at 15:19 Initial Consult Date 11/26/16 Type of Consultation: Pulm Ordering Provider: JESUS RUIZ Subjective Patient comfortable no new events Objective Vital Signs Date Time Temp Pulse Resp B/P Pulse Ox O2 Delivery O2 Flow Rate FiO2 12/01/16 12:08 97.8 116 20 127/96 100 11/27/16 21:00 Room Air Intake and Output 11/30/16 11/30/16 12/01/16 15:00 23:00 07:00 Intake Total 50 ml 750 ml 450 ml Output Total 1200 ml 1200 ml Balance 50 ml -450 ml -750 ml Exam GENERAL: Chronically ill-appearing lady with multiple decubitus ulcers thin cachectic VITAL SIGNS: per chart NECK: Supple. No JVD or lymphadenopathy. CARDIAC EXAM: S1, S2. No added sounds or murmurs. CHEST: clear bilaterally, No added sounds, rales or wheezes ABDOMEN: Soft, nontender. No guarding or rebound. EXTREMITIES: No cyanosis, clubbing or edema. NEUROLOGIC: Generalized weakness. No focal deficits. Results/Medications Result Diagram: 12/01/16 0640 12/01/16 0640 Results 24 hrs Laboratory Tests Test 12/01/16 06:40 White Blood Count 2.9 L Red Blood Count 2.88 L Hemoglobin 8.1 L Hematocrit 25.0 L Mean Corpuscular Volume 86.8 Mean Corpuscular Hemoglobin 28.1 L Mean Corpuscular Hemoglobin Concent 32.4 Red Cell Distribution Width 15.8 H Platelet Count 211 Mean Platelet Volume 9.1 Neutrophils % 54.8 Lymphocytes % 32.2 Monocytes % 7.9 Eosinophils % 1.7 Basophils % 0.3 Nucleated Red Blood Cells % 0.0 Neutrophils # 1.6 Lymphocytes # 0.9 Monocytes # 0.2 L Eosinophils # 0.1 Basophils # 0.0 Nucleated Red Blood Cells # 0.0 Sodium Level 135 Potassium Level 4.6 Chloride Level 106 Carbon Dioxide Level 27 Anion Gap 7 L Blood Urea Nitrogen 11 Creatinine 0.42 L Glucose Level 80 Calcium Level 7.9 L Phosphorus Level 2.8 Magnesium Level 1.9 Medications Current Medications Ondansetron HCl (Zofran Inj) 4 mg Q6H PRN IV NAUSEA AND/OR VOMITING Last administered on 12/01/16 09:59; Admin Dose 4 MG; Start 11/11/16 at 16:00 Acetaminophen (Tylenol Tab) 650 mg Q6H PRN PO PAIN LEVEL 1-3 OR FEVER; Start at 16:00 Magnesium Hydroxide (Milk Of Mag) 30 ml DAILY PRN PO CONSTIPATION; Start at 16:00 Sodium Biphosphate/ Sodium Phosphate (Fleet Enema) 133 ml DAILY PRN [place] CONSTIPATION; Start 11/11/16 at 16:00 Hydralazine HCl (Apresoline) 10 mg Q6H PRN IV ELEVATED BLOOD PRESSURE; Start at 16:00 Nitroglycerin (Nitroglycerin (Sl Tab) 0.4 Mg) 1 tab Q5M PRN SL ANGINA Last administered on 11/11/16 23:25; Admin Dose 1 TAB; Start 11/11/16 at 16:00 Efavirenz (Sustiva) 600 mg DAILY PO Last administered on 12/01/16 09:51; Admin Dose 600 MG; Start 11/12/16 at 09:00 Emtricitabine/ Tenofovir (Truvada) 1 tab DAILY PO Last administered on 09:58; Admin Dose 1 TAB; Start 11/12/16 at 09:00 Sucralfate (Carafate) 1 gm QID PO Last administered on 12/01/16 09:50; Admin Dose 1 GM; Start 11/11/16 at 17:00 Valganciclovir (Valcyte) 450 mg Q12 PO Last administered on 12/01/16 09:51; Admin Dose 450 MG; Start 11/11/16 at 21:00 Collagenase (Santyl) 1 applic DAILY TOP Last administered on 11/30/16 15:40; Admin Dose 1 APPLIC; Start 11/12/16 at 13:00 Collagenase (Santyl) 1 applic PRN PRN TOP WOUND CARE; Start 11/12/16 at 12:00 Mesalamine (Delzicol Dr) 800 mg QID PO Last administered on 12/01/16 09:51; Admin Dose 800 MG; Start 11/12/16 at 21:00 Vancomycin HCl (Vancomycin Oral Syringe) 250 mg Q6 PO Last administered on 12/01 06:03; Admin Dose 250 MG; Start 11/12/16 at 19:30 Fluconazole (Diflucan) 100 mg DAILY PO Last administered on 12/01/16 09:51; Admin Dose 100 MG; Start 11/13/16 at 09:00 Lactobacillus Acidophilus 1 each 1 each BID PO Last administered on 12/01/16 09:51; Admin Dose 1 EACH; Start 11/13/16 at 21:00 Cefepime HCl (Maxipime 1gm/50 ml (Pmx)) 50 ml @ 100 mls/hr Q12 IVPB Last administered on 12/01/16 09:50; Admin Dose 100 MLS/HR; Start 11/26/16 at 11:30 Pantoprazole (Protonix Tab) 40 mg BID@06,18 PO Last administered on 12/01/16 06:03; Admin Dose 40 MG; Start 11/28/16 at 06:00 Metoclopramide HCl (Reglan) 5 mg TID PO Last administered on 12/01/16 09:51; Admin Dose 5 MG; Start 11/27/16 at 21:00 Levetiracetam (Keppra) 500 mg BID PO Last administered on 12/01/16 09:50; Admin Dose 500 MG; Start 11/27/16 at 21:00 Potassium Chloride (Klor-Con 20) 40 meq BID PO Last administered on 12/01/16 09:50; Admin Dose 40 MEQ; Start 11/27/16 at 21:00 Enoxaparin Sodium (Lovenox) 40 mg DAILY SC Last administered on 11/30/16 09:43 ; Admin Dose 40 MG; Start 11/29/16 at 09:00 Magnesium Oxide (Mag-Ox 400) 400 mg TID PO Last administered on 12/01/16 09:51 ; Admin Dose 400 MG; Start 11/30/16 at 21:00 Assessment/Plan Chief Complaint/Hosp Course Assessment 1. Pneumonia possibly aspiration 2. Status post hypoxemic respiratory failure secondary to above 3. History of HIV 4. History of anemia likely of chronic disease status post transfusion 5. Multiple decubitus ulcers Plan 1. Consider DC antibiotics 2. Continue aspiration precautions 3. Broncho-dilators as needed 4. Continue Discharge planning okay from pulmonary standpoint Problems: SHADI GAUTAM MD, FCCP Dec 01, 2016 13:04
--- NOTE | 2016-12-01 14:09 | CONS ---
Date/Time of Note Date/Time of Note DATE: 12/01/16 TIME: 14:08 Assessment/Plan Assessment/Plan Chief Complaint/Hosp Course SUBJECTIVE: No events overnight. No fevers. Looks comfortable MICROBIOLOGY: Repeat blood and urine cultures negative. DIAGNOSTICS: Patient had MRI of the brain 11/27/16 revealed no evidence of acute intracranial pathology. There is right greater than left mastoid cell opacification. ANTIMICROBIALS: 1. Cefepime. 3. Oral vancomycin. 4. Fluconazole. 5. Truvada. 6. Sustiva. 7. Valcyte. PHYSICAL EXAMINATION: GENERAL: This is a chronically ill-appearing, cachectic, wasted, middle-aged white woman who is lying comfortably in bed. HEENT: Head atraumatic, normocephalic. Sclerae anicteric. Buccal mucosa dry. NECK: Supple. CHEST: Rise symmetrical. Breath sounds diminished. HEART: S1, S2. ABDOMEN: Soft. Bowel tones present. EXTREMITIES: Without cyanosis. Bilateral edema. SKIN: Positive for anasarca. ASSESSMENT: 1. Status post severe sepsis with shock. 2. Acute encephalopathy, possibly post-ictal. 3. Questionable mastoiditis. 4. Healthcare-acquired pneumonia, possibly aspiration. 5. Human immunodeficiency virus with CD4 count of 241. 6. Multiple chronic wounds. 7. History of Inocencia esophagitis. PLAN: The patient remains stable. Continue Cefepime for 3 more days, continue aspiration precautions. Follow recommendations of consultants. dw staff Problems: Consultation Date/Type/Reason Admit Date/Time November 11, 2016 at 15:19 Initial Consult Date 11/11/16 Type of Consultation: id Referring Provider: JESUS RUIZ Exam/Review of Systems Vital Signs Vitals Vital Signs Date Time Temp Pulse Resp B/P Pulse Ox O2 Delivery O2 Flow Rate FiO2 12/01/16 12:08 97.8 116 20 127/96 100 11/27/16 21:00 Room Air Intake and Output 11/30/16 11/30/16 12/01/16 15:00 23:00 07:00 Intake Total 50 ml 750 ml 450 ml Output Total 1200 ml 1200 ml Balance 50 ml -450 ml -750 ml Results Result Diagram: 12/01/16 0640 12/01/16 0640 Results 24 hrs Laboratory Tests Test 12/01/16 06:40 White Blood Count 2.9 L Red Blood Count 2.88 L Hemoglobin 8.1 L Hematocrit 25.0 L Mean Corpuscular Volume 86.8 Mean Corpuscular Hemoglobin 28.1 L Mean Corpuscular Hemoglobin Concent 32.4 Red Cell Distribution Width 15.8 H Platelet Count 211 Mean Platelet Volume 9.1 Neutrophils % 54.8 Lymphocytes % 32.2 Monocytes % 7.9 Eosinophils % 1.7 Basophils % 0.3 Nucleated Red Blood Cells % 0.0 Neutrophils # 1.6 Lymphocytes # 0.9 Monocytes # 0.2 L Eosinophils # 0.1 Basophils # 0.0 Nucleated Red Blood Cells # 0.0 Sodium Level 135 Potassium Level 4.6 Chloride Level 106 Carbon Dioxide Level 27 Anion Gap 7 L Blood Urea Nitrogen 11 Creatinine 0.42 L Glucose Level 80 Calcium Level 7.9 L Phosphorus Level 2.8 Magnesium Level 1.9 Medications Medications Current Medications Ondansetron HCl (Zofran Inj) 4 mg Q6H PRN IV NAUSEA AND/OR VOMITING Last administered on 12/01/16 09:59; Admin Dose 4 MG; Start 11/11/16 at 16:00 Acetaminophen (Tylenol Tab) 650 mg Q6H PRN PO PAIN LEVEL 1-3 OR FEVER; Start at 16:00 Magnesium Hydroxide (Milk Of Mag) 30 ml DAILY PRN PO CONSTIPATION; Start at 16:00 Sodium Biphosphate/ Sodium Phosphate (Fleet Enema) 133 ml DAILY PRN [place] CONSTIPATION; Start 11/11/16 at 16:00 Hydralazine HCl (Apresoline) 10 mg Q6H PRN IV ELEVATED BLOOD PRESSURE; Start at 16:00 Nitroglycerin (Nitroglycerin (Sl Tab) 0.4 Mg) 1 tab Q5M PRN SL ANGINA Last administered on 11/11/16 23:25; Admin Dose 1 TAB; Start 11/11/16 at 16:00 Efavirenz (Sustiva) 600 mg DAILY PO Last administered on 12/01/16 09:51; Admin Dose 600 MG; Start 11/12/16 at 09:00 Emtricitabine/ Tenofovir (Truvada) 1 tab DAILY PO Last administered on 09:58; Admin Dose 1 TAB; Start 11/12/16 at 09:00 Sucralfate (Carafate) 1 gm QID PO Last administered on 12/01/16 09:50; Admin Dose 1 GM; Start 11/11/16 at 17:00 Valganciclovir (Valcyte) 450 mg Q12 PO Last administered on 12/01/16 09:51; Admin Dose 450 MG; Start 11/11/16 at 21:00 Collagenase (Santyl) 1 applic DAILY TOP Last administered on 12/01/16 13:01; Admin Dose 1 APPLIC; Start 11/12/16 at 13:00 Collagenase (Santyl) 1 applic PRN PRN TOP WOUND CARE; Start 11/12/16 at 12:00 Mesalamine (Delzicol Dr) 800 mg QID PO Last administered on 12/01/16 09:51; Admin Dose 800 MG; Start 11/12/16 at 21:00 Vancomycin HCl (Vancomycin Oral Syringe) 250 mg Q6 PO Last administered on 12/01 13:02; Admin Dose 250 MG; Start 11/12/16 at 19:30 Fluconazole (Diflucan) 100 mg DAILY PO Last administered on 12/01/16 09:51; Admin Dose 100 MG; Start 11/13/16 at 09:00 Lactobacillus Acidophilus 1 each 1 each BID PO Last administered on 12/01/16 09:51; Admin Dose 1 EACH; Start 11/13/16 at 21:00 Cefepime HCl (Maxipime 1gm/50 ml (Pmx)) 50 ml @ 100 mls/hr Q12 IVPB Last administered on 12/01/16 09:50; Admin Dose 100 MLS/HR; Start 11/26/16 at 11:30 Pantoprazole (Protonix Tab) 40 mg BID@06,18 PO Last administered on 12/01/16 06:03; Admin Dose 40 MG; Start 11/28/16 at 06:00 Metoclopramide HCl (Reglan) 5 mg TID PO Last administered on 12/01/16 09:51; Admin Dose 5 MG; Start 11/27/16 at 21:00 Levetiracetam (Keppra) 500 mg BID PO Last administered on 12/01/16 09:50; Admin Dose 500 MG; Start 11/27/16 at 21:00 Potassium Chloride (Klor-Con 20) 40 meq BID PO Last administered on 12/01/16 09:50; Admin Dose 40 MEQ; Start 11/27/16 at 21:00 Enoxaparin Sodium (Lovenox) 40 mg DAILY SC Last administered on 12/01/16 13:03 ; Admin Dose 40 MG; Start 11/29/16 at 09:00 Magnesium Oxide (Mag-Ox 400) 400 mg TID PO Last administered on 12/01/16 09:51 ; Admin Dose 400 MG; Start 11/30/16 at 21:00 AGUILA BURGOS NP Dec 01, 2016 14:09
--- NOTE | 2016-12-01 18:06 | CONS ---
Date/Time of Note Date/Time of Note DATE: 12/01/16 TIME: 18:04 Assessment/Plan Assessment/Plan Additional Assessment/Plan 1. Severe hyperchloremia with a chloride of 117, unclear etiology. 2. Acute encephalopathy. 3. Status post hemorrhagic shock. 4. Human immunodeficiency virus positive with CD4 count of 157. 5. Positive colitis. 6. Multiple decubitus ulcers. 7. Status post urinary tract infection and sepsis on admission. 8. Depression. 9. Hypomagnesemia PLAN: IVF discontinued, Bp stable,electrolyte stable palliative care has been following will follow up Consultation Date/Type/Reason Admit Date/Time November 11, 2016 at 15:19 Initial Consult Date 11/26/16 Type of Consultation: NEPHROLOGY Referring Provider: JESSU RUIZ 24 HR Interval Summary Free Text/Dictation Na normal< electrolytes table, cr normal, Exam/Review of Systems Vital Signs Vitals Vital Signs Date Time Temp Pulse Resp B/P Pulse Ox O2 Delivery O2 Flow Rate FiO2 12/01/16 16:17 84 12/01/16 15:56 97.7 20 120/91 100 11/27/16 21:00 Room Air Intake and Output 11/30/16 11/30/16 12/01/16 15:00 23:00 07:00 Intake Total 50 ml 750 ml 450 ml Output Total 1200 ml 1200 ml Balance 50 ml -450 ml -750 ml Exam GENERAL: This is a chronically ill-appearing, cachectic, wasted, middle-aged white woman who is lying comfortably in bed. HEENT: Head atraumatic, normocephalic. Sclerae anicteric. Buccal mucosa dry. NECK: Supple. CHEST: Rise symmetrical. Breath sounds diminished. HEART: S1, S2. ABDOMEN: Soft. Bowel tones present. EXTREMITIES: Without cyanosis. Bilateral edema. SKIN: Positive for anasarca. Results Result Diagram: 12/01/16 0640 12/01/16 0640 Results 24 hrs Laboratory Tests Test 12/01/16 06:40 White Blood Count 2.9 L Red Blood Count 2.88 L Hemoglobin 8.1 L Hematocrit 25.0 L Mean Corpuscular Volume 86.8 Mean Corpuscular Hemoglobin 28.1 L Mean Corpuscular Hemoglobin Concent 32.4 Red Cell Distribution Width 15.8 H Platelet Count 211 Mean Platelet Volume 9.1 Neutrophils % 54.8 Lymphocytes % 32.2 Monocytes % 7.9 Eosinophils % 1.7 Basophils % 0.3 Nucleated Red Blood Cells % 0.0 Neutrophils # 1.6 Lymphocytes # 0.9 Monocytes # 0.2 L Eosinophils # 0.1 Basophils # 0.0 Nucleated Red Blood Cells # 0.0 Sodium Level 135 Potassium Level 4.6 Chloride Level 106 Carbon Dioxide Level 27 Anion Gap 7 L Blood Urea Nitrogen 11 Creatinine 0.42 L Glucose Level 80 Calcium Level 7.9 L Phosphorus Level 2.8 Magnesium Level 1.9 Medications Medications Current Medications Ondansetron HCl (Zofran Inj) 4 mg Q6H PRN IV NAUSEA AND/OR VOMITING Last administered on 12/01/16 09:59; Admin Dose 4 MG; Start 11/11/16 at 16:00 Acetaminophen (Tylenol Tab) 650 mg Q6H PRN PO PAIN LEVEL 1-3 OR FEVER; Start at 16:00 Magnesium Hydroxide (Milk Of Mag) 30 ml DAILY PRN PO CONSTIPATION; Start at 16:00 Sodium Biphosphate/ Sodium Phosphate (Fleet Enema) 133 ml DAILY PRN [place] CONSTIPATION; Start 11/11/16 at 16:00 Hydralazine HCl (Apresoline) 10 mg Q6H PRN IV ELEVATED BLOOD PRESSURE; Start at 16:00 Nitroglycerin (Nitroglycerin (Sl Tab) 0.4 Mg) 1 tab Q5M PRN SL ANGINA Last administered on 11/11/16 23:25; Admin Dose 1 TAB; Start 11/11/16 at 16:00 Efavirenz (Sustiva) 600 mg DAILY PO Last administered on 12/01/16 09:51; Admin Dose 600 MG; Start 11/12/16 at 09:00 Emtricitabine/ Tenofovir (Truvada) 1 tab DAILY PO Last administered on 09:58; Admin Dose 1 TAB; Start 11/12/16 at 09:00 Sucralfate (Carafate) 1 gm QID PO Last administered on 12/01/16 14:10; Admin Dose 1 GM; Start 11/11/16 at 17:00 Valganciclovir (Valcyte) 450 mg Q12 PO Last administered on 12/01/16 09:51; Admin Dose 450 MG; Start 11/11/16 at 21:00 Collagenase (Santyl) 1 applic DAILY TOP Last administered on 12/01/16 13:01; Admin Dose 1 APPLIC; Start 11/12/16 at 13:00 Collagenase (Santyl) 1 applic PRN PRN TOP WOUND CARE; Start 11/12/16 at 12:00 Mesalamine (Delzicol Dr) 800 mg QID PO Last administered on 12/01/16 14:10; Admin Dose 800 MG; Start 11/12/16 at 21:00 Vancomycin HCl (Vancomycin Oral Syringe) 250 mg Q6 PO Last administered on 12/01 13:02; Admin Dose 250 MG; Start 11/12/16 at 19:30 Fluconazole (Diflucan) 100 mg DAILY PO Last administered on 12/01/16 09:51; Admin Dose 100 MG; Start 11/13/16 at 09:00 Lactobacillus Acidophilus 1 each 1 each BID PO Last administered on 12/01/16 09:51; Admin Dose 1 EACH; Start 11/13/16 at 21:00 Cefepime HCl (Maxipime 1gm/50 ml (Pmx)) 50 ml @ 100 mls/hr Q12 IVPB Last administered on 12/01/16 09:50; Admin Dose 100 MLS/HR; Start 11/26/16 at 11:30 Pantoprazole (Protonix Tab) 40 mg BID@06,18 PO Last administered on 12/01/16 06:03; Admin Dose 40 MG; Start 11/28/16 at 06:00 Metoclopramide HCl (Reglan) 5 mg TID PO Last administered on 12/01/16 14:10; Admin Dose 5 MG; Start 11/27/16 at 21:00 Levetiracetam (Keppra) 500 mg BID PO Last administered on 12/01/16 09:50; Admin Dose 500 MG; Start 11/27/16 at 21:00 Potassium Chloride (Klor-Con 20) 40 meq BID PO Last administered on 12/01/16 09:50; Admin Dose 40 MEQ; Start 11/27/16 at 21:00 Enoxaparin Sodium (Lovenox) 40 mg DAILY SC Last administered on 12/01/16 13:03 ; Admin Dose 40 MG; Start 11/29/16 at 09:00 Magnesium Oxide (Mag-Ox 400) 400 mg TID PO Last administered on 12/01/16t 14:10 ; Admin Dose 400 MG; Start 11/30/16 at 21:00 ASHISH MENDOZA MD Dec 01, 2016 18:06
[2016-12-02] VITALS (12 sets, daily range): BP systolic 115–152; BP diastolic 53–105; PULSE 90–122; RESP 18–20
[2016-12-02] MEDS: PANTOPRAZOLE (EC) 40 MG TAB PO SCH ×2 (06:32→17:25)
[2016-12-02] MEDS: VANCOMYCIN HCL 250 MG/5ML POSYG PO SCH ×4 (06:32→17:25)
--- NOTE | 2016-12-02 07:18 | PN ---
Date/Time of Note Date/Time of Note DATE: 12/02/16 TIME: : Assessment/Plan VTE Prophylaxis VTE Prophylaxis Intervention: LMWH Lines/Catheters IV [facility] P[facility] Line Central line still needed: Yes Urinary Cath still in place: Yes Reason Cath still needed: other (indicate) Assessment/Plan Chief Complaint/Hosp Course 1. Lower gastrointestinal bleeding. Status post upper and lower endoscopy on 11/13/2016 that showed severe ulcerative esophagitis and a universal ulcerative colitis. Continue management as per Gastroenterology. Continue Mesalamine and Protonix. 2. Severe anemia secondary to #1, status post PRBC and platelet transfusion. Continue to monitor H&H closely. Transfuse as needed. 3. Human immunodeficiency virus/acquired immunodeficiency syndrome. CD4 count less than 35. CD4 count 157. Continue HAART. 4. Deconditioning. Physical therapy. 5. Multiple chronic wounds that are infected. Continue antimicrobials as per Infectious Disease. 6. History of polysubstance abuse. 7. History of depression and post-traumatic stress disorder. Continue mood stabilizers. 8. Urinary tract infection with E. coli and Proteus mirabilis. Continue antibiotics as per Infectious Disease. 9. Severe protein calorie malnutrition. Continue protein supplements. 10. Right lower quadrant abdominal orifice draining clear fluid. Resolved. 11. Seizure disorder (single witnessed episode). Status post evaluation by neurology. Continue anticonvulsants. 12. Possible aspiration pneumonia. Continue antibiotics as per infectious diseases. Aspiration precautions. 13. Fluid, electrolytes and nutrition. Regular diet. 14. Deep vein thrombosis prophylaxis. Subcutaneous Lovenox. 15. Gastrointestinal prophylaxis. Proton pump inhibitors. 16. Plan. Continue current management. Start low-dose beta-blockers for tachycardia and elevated blood pressure. Await placement. Case discussed with Dr. Swanson. Problems: Subjective 24 Hr Interval Summary Free Text/Dictation The patient remains afebrile. Exam/Review of Systems Vital Signs Vitals Vital Signs Date Time Temp Pulse Resp B/P Pulse Ox O2 Delivery O2 Flow Rate FiO2 12/02/16 04:06 103 12/02/16 04:00 98.0 18 152/95 95 Intake and Output 12/01/16 12/01/16 12/02/16 15:00 23:00 07:00 Intake Total 50 ml 950 ml 400 ml Output Total 1600 ml 1600 ml Balance 50 ml -650 ml -1200 ml Exam GENERAL: This is a 41-year-old female who appears malnourished, lying in bed in no apparent distress. HEENT: Head normocephalic and atraumatic. Eyes: Anicteric sclerae. Conjunctivae clear. ENT: Nasal septum is midline. Oral mucosa is dry. NECK: Supple. No JVD noticed. RESPIRATORY: Bilaterally clear to auscultation. No adventitious breath sounds heard. No use of accessory muscles of respiration. CARDIAC: Regular rate and rhythm. No murmurs heard. ABDOMEN: Soft, nontender and nondistended. Bowel sounds positive in all 4 quadrants. Right lower quadrant drain in place. GENITOURINARY: Deferred. EXTREMITIES: No cyanosis, no clubbing. Bilateral lower extremity edema. Peripheral pulses palpable. NEUROLOGIC: The patient is awake, alert and oriented. Cranial nerves are grossly intact. Results Result Diagram: 12/01/1663912/01/16639 Medications Medications Current Medications Ondansetron HCl (Zofran Inj) 4 mg Q6H PRN IV NAUSEA AND/OR VOMITING Last administered on 12/01/16 09:59; Admin Dose 4 MG; Start 11/11/16 at 16:00 Acetaminophen (Tylenol Tab) 650 mg Q6H PRN PO PAIN LEVEL 1-3 OR FEVER; Start at 16:00 Magnesium Hydroxide (Milk Of Mag) 30 ml DAILY PRN PO CONSTIPATION; Start at 16:00 Sodium Biphosphate/ Sodium Phosphate (Fleet Enema) 133 ml DAILY PRN [place] CONSTIPATION; Start 11/11/16 at 16:00 Hydralazine HCl (Apresoline) 10 mg Q6H PRN IV ELEVATED BLOOD PRESSURE; Start at 16:00 Nitroglycerin (Nitroglycerin (Sl Tab) 0.4 Mg) 1 tab Q5M PRN SL ANGINA Last administered on 11/11/16 23:25; Admin Dose 1 TAB; Start 11/11/16 at 16:00 Efavirenz (Sustiva) 600 mg DAILY PO Last administered on 12/01/16 09:51; Admin Dose 600 MG; Start 11/12/16 at 09:00 Emtricitabine/ Tenofovir (Truvada) 1 tab DAILY PO Last administered on 09:58; Admin Dose 1 TAB; Start 11/12/16 at 09:00 Sucralfate (Carafate) 1 gm QID PO Last administered on 12/01/16 20:53; Admin Dose 1 GM; Start 11/11/16 at 17:00 Valganciclovir (Valcyte) 450 mg Q12 PO Last administered on 12/01/16 20:53; Admin Dose 450 MG; Start 11/11/16 at 21:00 Collagenase (Santyl) 1 applic DAILY TOP Last administered on 12/01/16 13:01; Admin Dose 1 APPLIC; Start 11/12/16 at 13:00 Collagenase (Santyl) 1 applic PRN PRN TOP WOUND CARE; Start 11/12/16 at 12:00 Mesalamine (Delzicol Dr) 800 mg QID PO Last administered on 12/01/16 20:53; Admin Dose 800 MG; Start 11/12/16 at 21:00 Vancomycin HCl (Vancomycin Oral Syringe) 250 mg Q6 PO Last administered on 12/02 06:32; Admin Dose 250 MG; Start 11/12/16 at 19:30 Fluconazole (Diflucan) 100 mg DAILY PO Last administered on 12/01/16 09:51; Admin Dose 100 MG; Start 11/13/16 at 09:00 Lactobacillus Acidophilus 1 each 1 each BID PO Last administered on 12/01/16 20:52; Admin Dose 1 EACH; Start 11/13/16 at 21:00 Cefepime HCl (Maxipime 1gm/50 ml (Pmx)) 50 ml @ 100 mls/hr Q12 IVPB Last administered on 12/01/16 20:52; Admin Dose 100 MLS/HR; Start 11/26/16 at 11:30 Pantoprazole (Protonix Tab) 40 mg BID@06,18 PO Last administered on 12/02/16 06:32; Admin Dose 40 MG; Start 11/28/16 at 06:00 Metoclopramide HCl (Reglan) 5 mg TID PO Last administered on 12/01/16 20:53; Admin Dose 5 MG; Start 11/27/16 at 21:00 Levetiracetam (Keppra) 500 mg BID PO Last administered on 12/01/16 20:53; Admin Dose 500 MG; Start 11/27/16 at 21:00 Potassium Chloride (Klor-Con 20) 40 meq BID PO Last administered on 12/01/16 20:53; Admin Dose 40 MEQ; Start 11/27/16 at 21:00 Enoxaparin Sodium (Lovenox) 40 mg DAILY SC Last administered on 12/01/16 13:03 ; Admin Dose 40 MG; Start 11/29/16 at 09:00 Magnesium Oxide (Mag-Ox 400) 400 mg TID PO Last administered on 12/01/16 20:53 ; Admin Dose 400 MG; Start 11/30/16 at 21:00 TK PERALES NP Dec 02, 2016 07:18 TK PERALES NP Dec 02, 2016 07:18
[2016-12-02 08:03] LABS: ADD SCAN DIFF NO
[2016-12-02 08:15] LABS: BASOPHILS % 0.3 % (0.0-2.0); EOSINOPHILS % 0.7 % (0.0-7.0); HEMATOCRIT 25.9 % (37.0-47.0); LYMPHOCYTES # 0.8 10^3/ul (0.8-2.9); LYMPHOCYTES % 29.4 % (15.0-51.0); MEAN CORPUSCULAR HEMOGLOBIN 27.2 pg (29.0-33.0); MEAN CORPUSCULAR HGB CONC 30.9 g/dl (32.0-37.0); MEAN CORPUSCULAR VOLUME 88.1 fl (82.0-101.0); MONOCYTE # 0.2 10^3/ul (0.3-0.9); MONOCYTES % 6.6 % (0.0-11.0); NEUTROPHIL # 1.7 10^3/ul (1.6-7.5); NEUTROPHILS % 59.2 % (39.0-77.0); PLATELET COUNT 238 10^3/UL (140-415); RED BLOOD COUNT 2.94 10^6/ul (4.20-5.40); RED CELL DISTRIBUTION WIDTH 15.9 % (11.5-14.5); WHITE BLOOD COUNT 2.9 10^3/ul (4.8-10.8)
[2016-12-02] MEDS: MAGNESIUM OXIDE 400 MG TAB PO SCH ×3 (08:40→20:52)
[2016-12-02] MEDS: METOCLOPRAMIDE 5 MG TAB PO SCH ×3 (08:40→20:52)
[2016-12-02] MEDS: LEVETIRACETAM 500 MG TAB PO SCH ×2 (08:40→20:48)
[2016-12-02] MEDS: CEFEPIME 1GM/50 ML (PMX) 50 ML IVPB SCH ×2 (08:40→20:48)
[2016-12-02] MEDS: L ACIDOPHIL/B LACTIS/B LONGUM CAPSULE PO SCH ×2 (08:40→20:49)
[2016-12-02] MEDS: POTASSIUM CHLORIDE (SR) 20 MEQ TAB PO SCH ×2 (08:41→20:49)
[2016-12-02] MEDS: EFAVIRENZ 600 MG TAB PO SCH (08:41)
[2016-12-02] MEDS: MESALAMINE (EC) 400 MG CAP PO SCH ×4 (08:41→20:49)
[2016-12-02] MEDS: SUCRALFATE 1 GM TAB PO SCH ×4 (08:42→20:48)
[2016-12-02] MEDS: VALGANCICLOVIR 450 MG TAB PO SCH ×2 (08:42→20:49)
[2016-12-02] MEDS: FLUCONAZOLE 100 MG TAB PO SCH (08:42)
[2016-12-02 08:44] LABS: CALCIUM 8.1 mg/dl (8.4-10.2); CREATININE 0.56 mg/dl (0.44-1.00); POTASSIUM 4.4 mmol/L (3.5-5.1)
[2016-12-02] MEDS: ENOXAPARIN 40 MG/0.4 ML SYG SC SCH (08:48)
[2016-12-02 08:51] LABS: MAGNESIUM 1.8 mg/dl (1.7-2.5); PHOSPHORUS 2.9 mg/dl (2.5-4.9)
[2016-12-02] MEDS: EMTRICITABINE/TENOFOVIR TAB PO SCH (08:55)
--- NOTE | 2016-12-02 11:21 | CONS ---
Date/Time of Note Date/Time of Note DATE: 12/02/16 TIME: 11:20 Consult Date/Type/Reason Admit Date/Time November 11, 2016 at 15:19 Initial Consult Date 11/26/16 Type of Consultation: Pulmonary Ordering Provider: JESUS RUIZ Subjective Patient currently stable no new events. Objective Vital Signs Date Time Temp Pulse Resp B/P Pulse Ox O2 Delivery O2 Flow Rate FiO2 12/02/16 08:16 114 12/02/16 08:03 97.6 20 140/105 99 Intake and Output 12/01/16 12/01/16 12/02/16 15:00 23:00 07:00 Intake Total 50 ml 950 ml 400 ml Output Total 1600 ml 1600 ml Balance 50 ml -650 ml -1200 ml Exam GENERAL: Chronically ill-appearing lady with multiple decubitus ulcers thin cachectic VITAL SIGNS: per chart NECK: Supple. No JVD or lymphadenopathy. CARDIAC EXAM: S1, S2. No added sounds or murmurs. CHEST: clear bilaterally, No added sounds, rales or wheezes ABDOMEN: Soft, nontender. No guarding or rebound. EXTREMITIES: No cyanosis, clubbing or edema. NEUROLOGIC: Generalized weakness. No focal deficits. Results/Medications Result Diagram: 12/02/16 0636 12/02/16 0636 Results 24 hrs Laboratory Tests Test 12/02/16 06:36 White Blood Count 2.9 L Red Blood Count 2.94 L Hemoglobin 8.0 L Hematocrit 25.9 L Mean Corpuscular Volume 88.1 Mean Corpuscular Hemoglobin 27.2 L Mean Corpuscular Hemoglobin Concent 30.9 L Red Cell Distribution Width 15.9 H Platelet Count 238 Mean Platelet Volume 9.0 Neutrophils % 59.2 Lymphocytes % 29.4 Monocytes % 6.6 Eosinophils % 0.7 Basophils % 0.3 Nucleated Red Blood Cells % 0.0 Neutrophils # 1.7 Lymphocytes # 0.8 Monocytes # 0.2 L Eosinophils # 0.0 Basophils # 0.0 Nucleated Red Blood Cells # 0.0 Sodium Level 136 Potassium Level 4.4 Chloride Level 106 Carbon Dioxide Level 29 Anion Gap 5 L Blood Urea Nitrogen 10 Creatinine 0.56 Glucose Level 81 Calcium Level 8.1 L Phosphorus Level 2.9 Magnesium Level 1.8 Medications Current Medications Ondansetron HCl (Zofran Inj) 4 mg Q6H PRN IV NAUSEA AND/OR VOMITING Last administered on 12/01/16 09:59; Admin Dose 4 MG; Start 11/11/16 at 16:00 Acetaminophen (Tylenol Tab) 650 mg Q6H PRN PO PAIN LEVEL 1-3 OR FEVER; Start at 16:00 Magnesium Hydroxide (Milk Of Mag) 30 ml DAILY PRN PO CONSTIPATION; Start at 16:00 Sodium Biphosphate/ Sodium Phosphate (Fleet Enema) 133 ml DAILY PRN [place] CONSTIPATION; Start 11/11/16 at 16:00 Hydralazine HCl (Apresoline) 10 mg Q6H PRN IV ELEVATED BLOOD PRESSURE; Start at 16:00 Nitroglycerin (Nitroglycerin (Sl Tab) 0.4 Mg) 1 tab Q5M PRN SL ANGINA Last administered on 11/11/16 23:25; Admin Dose 1 TAB; Start 11/11/16 at 16:00 Efavirenz (Sustiva) 600 mg DAILY PO Last administered on 12/02/16 08:41; Admin Dose 600 MG; Start 11/12/16 at 09:00 Emtricitabine/ Tenofovir (Truvada) 1 tab DAILY PO Last administered on 08:55; Admin Dose 1 TAB; Start 11/12/16 at 09:00 Sucralfate (Carafate) 1 gm QID PO Last administered on 12/02/16 08:42; Admin Dose 1 GM; Start 11/11/16 at 17:00 Valganciclovir (Valcyte) 450 mg Q12 PO Last administered on 12/02/16 08:42; Admin Dose 450 MG; Start 11/11/16 at 21:00 Collagenase (Santyl) 1 applic DAILY TOP Last administered on 12/01/16 13:01; Admin Dose 1 APPLIC; Start 11/12/16 at 13:00 Collagenase (Santyl) 1 applic PRN PRN TOP WOUND CARE; Start 11/12/16 at 12:00 Mesalamine (Delzicol Dr) 800 mg QID PO Last administered on 12/02/16 08:41; Admin Dose 800 MG; Start 11/12/16 at 21:00 Vancomycin HCl (Vancomycin Oral Syringe) 250 mg Q6 PO Last administered on 12/02 06:32; Admin Dose 250 MG; Start 11/12/16 at 19:30 Fluconazole (Diflucan) 100 mg DAILY PO Last administered on 12/02/16 08:42; Admin Dose 100 MG; Start 11/13/16 at 09:00 Lactobacillus Acidophilus 1 each 1 each BID PO Last administered on 12/02/16 08:40; Admin Dose 1 EACH; Start 11/13/16 at 21:00 Cefepime HCl (Maxipime 1gm/50 ml (Pmx)) 50 ml @ 100 mls/hr Q12 IVPB Last administered on 12/02/16 08:40; Admin Dose 100 MLS/HR; Start 11/26/16 at 11:30 Pantoprazole (Protonix Tab) 40 mg BID@06,18 PO Last administered on 12/02/16 06:32; Admin Dose 40 MG; Start 11/28/16 at 06:00 Metoclopramide HCl (Reglan) 5 mg TID PO Last administered on 12/02/16 08:40; Admin Dose 5 MG; Start 11/27/16 at 21:00 Levetiracetam (Keppra) 500 mg BID PO Last administered on 12/02/16 08:40; Admin Dose 500 MG; Start 11/27/16 at 21:00 Potassium Chloride (Klor-Con 20) 40 meq BID PO Last administered on 12/02/16 08:41; Admin Dose 40 MEQ; Start 11/27/16 at 21:00 Enoxaparin Sodium (Lovenox) 40 mg DAILY SC Last administered on 12/02/16 08:48 ; Admin Dose 40 MG; Start 11/29/16 at 09:00 Magnesium Oxide (Mag-Ox 400) 400 mg TID PO Last administered on 12/02/16 08:40 ; Admin Dose 400 MG; Start 11/30/16 at 21:00 Metoprolol Tartrate (Lopressor) 12.5 mg DAILY PO ; Start 12/02/16 at 11:30 Assessment/Plan Chief Complaint/Hosp Course Assessment 1. Pneumonia possibly aspiration 2. Status post hypoxemic respiratory failure secondary to above 3. History of HIV 4. History of anemia likely of chronic disease status post transfusion 5. Multiple decubitus ulcers 6. Cachexia and malnutrition Plan 1. Consider DC antibiotics 2. Continue aspiration precautions 3. Broncho-dilators as needed 4. Continue wound care. 5. Podiatry recommendations increase calorie intake if tolerated Discharge planning Problems: SHADI GAUTAM MD, [facility] Dec 02, 2016 11:21
[2016-12-02] MEDS: METOPROLOL 25 MG TAB PO SCH (12:13)
[2016-12-02] MEDS: COLLAGENASE 30 GM TUBE TOP SCH (14:04)
--- NOTE | 2016-12-02 15:14 | CONS ---
Date/Time of Note Date/Time of Note DATE: 12/02/16 TIME: 15:14 Assessment/Plan Assessment/Plan Chief Complaint/Hosp Course SUBJECTIVE: No events overnight. No fevers. Sleeping. Looks comfortable MICROBIOLOGY: Repeat blood and urine cultures negative. DIAGNOSTICS: Patient had MRI of the brain 11/27/16 revealed no evidence of acute intracranial pathology. There is right greater than left mastoid cell opacification. ANTIMICROBIALS: 1. Cefepime. 3. Oral vancomycin. 4. Fluconazole. 5. Truvada. 6. Sustiva. 7. Valcyte. PHYSICAL EXAMINATION: GENERAL: This is a chronically ill-appearing, cachectic, wasted, middle-aged white woman who is lying comfortably in bed. HEENT: Head atraumatic, normocephalic. Sclerae anicteric. Buccal mucosa dry. NECK: Supple. CHEST: Rise symmetrical. Breath sounds diminished. HEART: S1, S2. ABDOMEN: Soft. Bowel tones present. EXTREMITIES: Without cyanosis. Bilateral edema. SKIN: Positive for anasarca. ASSESSMENT: 1. Status post severe sepsis with shock. 2. Acute encephalopathy, possibly post-ictal. 3. Questionable mastoiditis. 4. Healthcare-acquired pneumonia, possibly aspiration. 5. Human immunodeficiency virus with CD4 count of 241. 6. Multiple chronic wounds. 7. History of Inocencia esophagitis. PLAN: The patient remains stable. Continue Cefepime for 2 more days, continue other Rx, aspiration precautions. Follow recommendations of consultants. dw staff Problems: Consultation Date/Type/Reason Admit Date/Time November 11, 2016 at 15:19 Initial Consult Date 11/11/16 Type of Consultation: id Referring Provider: JESUS RUIZ Exam/Review of Systems Vital Signs Vitals Vital Signs Date Time Temp Pulse Resp B/P Pulse Ox O2 Delivery O2 Flow Rate FiO2 12/02/16 12:14 122 12/02/16 12:01 98.1 20 115/53 98 Intake and Output 12/01/16 12/01/16 12/02/16 15:00 23:00 07:00 Intake Total 50 ml 950 ml 400 ml Output Total 1600 ml 1600 ml Balance 50 ml -650 ml -1200 ml Results Result Diagram: 12/02/16 0636 12/02/16 0636 Results 24 hrs Laboratory Tests Test 12/02/16 06:36 White Blood Count 2.9 L Red Blood Count 2.94 L Hemoglobin 8.0 L Hematocrit 25.9 L Mean Corpuscular Volume 88.1 Mean Corpuscular Hemoglobin 27.2 L Mean Corpuscular Hemoglobin Concent 30.9 L Red Cell Distribution Width 15.9 H Platelet Count 238 Mean Platelet Volume 9.0 Neutrophils % 59.2 Lymphocytes % 29.4 Monocytes % 6.6 Eosinophils % 0.7 Basophils % 0.3 Nucleated Red Blood Cells % 0.0 Neutrophils # 1.7 Lymphocytes # 0.8 Monocytes # 0.2 L Eosinophils # 0.0 Basophils # 0.0 Nucleated Red Blood Cells # 0.0 Sodium Level 136 Potassium Level 4.4 Chloride Level 106 Carbon Dioxide Level 29 Anion Gap 5 L Blood Urea Nitrogen 10 Creatinine 0.56 Glucose Level 81 Calcium Level 8.1 L Phosphorus Level 2.9 Magnesium Level 1.8 Medications Medications Current Medications Ondansetron HCl (Zofran Inj) 4 mg Q6H PRN IV NAUSEA AND/OR VOMITING Last administered on 12/01/16 09:59; Admin Dose 4 MG; Start 11/11/16 at 16:00 Acetaminophen (Tylenol Tab) 650 mg Q6H PRN PO PAIN LEVEL 1-3 OR FEVER; Start at 16:00 Magnesium Hydroxide (Milk Of Mag) 30 ml DAILY PRN PO CONSTIPATION; Start at 16:00 Sodium Biphosphate/ Sodium Phosphate (Fleet Enema) 133 ml DAILY PRN [place] CONSTIPATION; Start 11/11/16 at 16:00 Hydralazine HCl (Apresoline) 10 mg Q6H PRN IV ELEVATED BLOOD PRESSURE; Start at 16:00 Nitroglycerin (Nitroglycerin (Sl Tab) 0.4 Mg) 1 tab Q5M PRN SL ANGINA Last administered on 11/11/16 23:25; Admin Dose 1 TAB; Start 11/11/16 at 16:00 Efavirenz (Sustiva) 600 mg DAILY PO Last administered on 12/02/16 08:41; Admin Dose 600 MG; Start 11/12/16 at 09:00 Emtricitabine/ Tenofovir (Truvada) 1 tab DAILY PO Last administered on 08:55; Admin Dose 1 TAB; Start 11/12/16 at 09:00 Sucralfate (Carafate) 1 gm QID PO Last administered on 12/02/16 12:13; Admin Dose 1 GM; Start 11/11/16 at 17:00 Valganciclovir (Valcyte) 450 mg Q12 PO Last administered on 12/02/16 08:42; Admin Dose 450 MG; Start 11/11/16 at 21:00 Collagenase (Santyl) 1 applic DAILY TOP Last administered on 12/02/16 14:04; Admin Dose 1 APPLIC; Start 11/12/16 at 13:00 Collagenase (Santyl) 1 applic PRN PRN TOP WOUND CARE; Start 11/12/16 at 12:00 Mesalamine (Delzicol Dr) 800 mg QID PO Last administered on 12/02/16 12:13; Admin Dose 800 MG; Start 11/12/16 at 21:00 Vancomycin HCl (Vancomycin Oral Syringe) 250 mg Q6 PO Last administered on 12/02 12:12; Admin Dose 250 MG; Start 11/12/16 at 19:30 Fluconazole (Diflucan) 100 mg DAILY PO Last administered on 12/02/16 08:42; Admin Dose 100 MG; Start 11/13/16 at 09:00 Lactobacillus Acidophilus 1 each 1 each BID PO Last administered on 12/02/16 08:40; Admin Dose 1 EACH; Start 11/13/16 at 21:00 Cefepime HCl (Maxipime 1gm/50 ml (Pmx)) 50 ml @ 100 mls/hr Q12 IVPB Last administered on 12/02/16 08:40; Admin Dose 100 MLS/HR; Start 11/26/16 at 11:30 Pantoprazole (Protonix Tab) 40 mg BID@06,18 PO Last administered on 12/02/16 06:32; Admin Dose 40 MG; Start 11/28/16 at 06:00 Metoclopramide HCl (Reglan) 5 mg TID PO Last administered on 12/02/16 12:13; Admin Dose 5 MG; Start 11/27/16 at 21:00 Levetiracetam (Keppra) 500 mg BID PO Last administered on 12/02/16 08:40; Admin Dose 500 MG; Start 11/27/16 at 21:00 Potassium Chloride (Klor-Con 20) 40 meq BID PO Last administered on 12/02/16 08:41; Admin Dose 40 MEQ; Start 11/27/16 at 21:00 Enoxaparin Sodium (Lovenox) 40 mg DAILY SC Last administered on 12/02/16 08:48 ; Admin Dose 40 MG; Start 11/29/16 at 09:00 Magnesium Oxide (Mag-Ox 400) 400 mg TID PO Last administered on 12/02/16 12:13 ; Admin Dose 400 MG; Start 11/30/16 at 21:00 Metoprolol Tartrate (Lopressor) 12.5 mg DAILY PO Last administered on 12:13; Admin Dose 12.5 MG; Start 12/02/16 at 11:30 AGUILA BURGOS NP Dec 02, 2016 15:14
--- NOTE | 2016-12-02 16:31 | PN ---
Date/Time of Note Date/Time of Note DATE: 12/02/16 TIME: 16:29 Assessment/Plan VTE Prophylaxis VTE Prophylaxis Intervention: contraindicated Lines/Catheters [facility] PICC Line Central line still needed: Yes Urinary Cath still in place: Yes Reason Cath still needed: urinary retention Assessment/Plan Assessment/Plan Assessment * Anemia hemoglobin 8 EGD 11/12/2016 Severe ulcerated esophagitis/Inocencia esophagitis Colonoscopy 11/12/2016 Mandan ulcerative colitis. Moderate sized internal hemorrhoids * HIV disease. * Anasarca/small amount of ascites improved * Probably ascitic fluid leak right lower quadrant * Malnutrition * UTI * Polysubstance abuse * History of psychiatric illness Plan * Continue present management * advance diet as tolerated Subjective 24 Hr Interval Summary Free Text/Dictation * Course reviewed with RN * Patient seen and examined * Tolerating diet Exam/Review of Systems Vital Signs Vitals Vital Signs Date Time Temp Pulse Resp B/P Pulse Ox O2 Delivery O2 Flow Rate FiO2 12/02/16 16:17 90 12/02/16 15:53 98.0 18 130/62 98 Intake and Output 12/01/16 12/01/16 12/02/16 15:00 23:00 07:00 Intake Total 50 ml 950 ml 400 ml Output Total 1600 ml 1600 ml Balance 50 ml -650 ml -1200 ml Exam Constitutional: alert, frail Neck: supple Respiratory: clear to auscultation, normal air movement Cardiovascular: nl pulses, regular rate and rhythm Gastrointestinal: non-tender, soft Musculoskeletal: nl extremities to inspection, nl gait and stance Extremities: normal pulses Skin: nl turgor, rash or lesions Results Result Diagram: 12/02/16 0636 12/02/16 0636 Results 24 hrs Laboratory Tests Test 12/02/16 06:36 White Blood Count 2.9 L Red Blood Count 2.94 L Hemoglobin 8.0 L Hematocrit 25.9 L Mean Corpuscular Volume 88.1 Mean Corpuscular Hemoglobin 27.2 L Mean Corpuscular Hemoglobin Concent 30.9 L Red Cell Distribution Width 15.9 H Platelet Count 238 Mean Platelet Volume 9.0 Neutrophils % 59.2 Lymphocytes % 29.4 Monocytes % 6.6 Eosinophils % 0.7 Basophils % 0.3 Nucleated Red Blood Cells % 0.0 Neutrophils # 1.7 Lymphocytes # 0.8 Monocytes # 0.2 L Eosinophils # 0.0 Basophils # 0.0 Nucleated Red Blood Cells # 0.0 Sodium Level 136 Potassium Level 4.4 Chloride Level 106 Carbon Dioxide Level 29 Anion Gap 5 L Blood Urea Nitrogen 10 Creatinine 0.56 Glucose Level 81 Calcium Level 8.1 L Phosphorus Level 2.9 Magnesium Level 1.8 Medications Medications Current Medications Ondansetron HCl (Zofran Inj) 4 mg Q6H PRN IV NAUSEA AND/OR VOMITING Last administered on 12/01/16 09:59; Admin Dose 4 MG; Start 11/11/16 at 16:00 Acetaminophen (Tylenol Tab) 650 mg Q6H PRN PO PAIN LEVEL 1-3 OR FEVER; Start at 16:00 Magnesium Hydroxide (Milk Of Mag) 30 ml DAILY PRN PO CONSTIPATION; Start at 16:00 Sodium Biphosphate/ Sodium Phosphate (Fleet Enema) 133 ml DAILY PRN [place] CONSTIPATION; Start 11/11/16 at 16:00 Hydralazine HCl (Apresoline) 10 mg Q6H PRN IV ELEVATED BLOOD PRESSURE; Start at 16:00 Nitroglycerin (Nitroglycerin (Sl Tab) 0.4 Mg) 1 tab Q5M PRN SL ANGINA Last administered on 11/11/16 23:25; Admin Dose 1 TAB; Start 11/11/16 at 16:00 Efavirenz (Sustiva) 600 mg DAILY PO Last administered on 12/02/16 08:41; Admin Dose 600 MG; Start 11/12/16 at 09:00 Emtricitabine/ Tenofovir (Truvada) 1 tab DAILY PO Last administered on 08:55; Admin Dose 1 TAB; Start 11/12/16 at 09:00 Sucralfate (Carafate) 1 gm QID PO Last administered on 12/02/16 12:13; Admin Dose 1 GM; Start 11/11/16 at 17:00 Valganciclovir (Valcyte) 450 mg Q12 PO Last administered on 12/02/16 08:42; Admin Dose 450 MG; Start 11/11/16 at 21:00 Collagenase (Santyl) 1 applic DAILY TOP Last administered on 12/02/16 14:04; Admin Dose 1 APPLIC; Start 11/12/16 at 13:00 Collagenase (Santyl) 1 applic PRN PRN TOP WOUND CARE; Start 11/12/16 at 12:00 Mesalamine (Delzicol Dr) 800 mg QID PO Last administered on 12/02/16 12:13; Admin Dose 800 MG; Start 11/12/16 at 21:00 Vancomycin HCl (Vancomycin Oral Syringe) 250 mg Q6 PO Last administered on 12/02 12:12; Admin Dose 250 MG; Start 11/12/16 at 19:30 Fluconazole (Diflucan) 100 mg DAILY PO Last administered on 12/02/16 08:42; Admin Dose 100 MG; Start 11/13/16 at 09:00 Lactobacillus Acidophilus 1 each 1 each BID PO Last administered on 12/02/16 08:40; Admin Dose 1 EACH; Start 11/13/16 at 21:00 Cefepime HCl (Maxipime 1gm/50 ml (Pmx)) 50 ml @ 100 mls/hr Q12 IVPB Last administered on 12/02/16 08:40; Admin Dose 100 MLS/HR; Start 11/26/16 at 11:30 Pantoprazole (Protonix Tab) 40 mg BID@06,18 PO Last administered on 12/02/16 06:32; Admin Dose 40 MG; Start 11/28/16 at 06:00 Metoclopramide HCl (Reglan) 5 mg TID PO Last administered on 12/02/16 12:13; Admin Dose 5 MG; Start 11/27/16 at 21:00 Levetiracetam (Keppra) 500 mg BID PO Last administered on 12/02/16 08:40; Admin Dose 500 MG; Start 11/27/16 at 21:00 Potassium Chloride (Klor-Con 20) 40 meq BID PO Last administered on 12/02/16 08:41; Admin Dose 40 MEQ; Start 11/27/16 at 21:00 Enoxaparin Sodium (Lovenox) 40 mg DAILY SC Last administered on 12/02/16 08:48 ; Admin Dose 40 MG; Start 11/29/16 at 09:00 Magnesium Oxide (Mag-Ox 400) 400 mg TID PO Last administered on 12/02/16 12:13 ; Admin Dose 400 MG; Start 11/30/16 at 21:00 Metoprolol Tartrate (Lopressor) 12.5 mg DAILY PO Last administered on t 12:13; Admin Dose 12.5 MG; Start 12/02/16 at 11:30 GUCCI STROUD NP Dec 02, 2016 16:31
--- NOTE | 2016-12-02 21:08 | CONS ---
Date/Time of Note Date/Time of Note DATE: 12/02/16 TIME: 21:08 Assessment/Plan Assessment/Plan Additional Assessment/Plan 1. Severe hyperchloremia with a chloride of 117, unclear etiology. 2. Acute encephalopathy. 3. Status post hemorrhagic shock. 4. Human immunodeficiency virus positive with CD4 count of 157. 5. Positive colitis. 6. Multiple decubitus ulcers. 7. Status post urinary tract infection and sepsis on admission. 8. Depression. 9. Hypomagnesemia PLAN: IVF discontinued, Bp stable,electrolyte stable palliative care has been following will follow up Consultation Date/Type/Reason Admit Date/Time November 11, 2016 at 15:19 Initial Consult Date 11/26/16 Type of Consultation: NEPHROLGOY Referring Provider: JESUS RUIZ Exam/Review of Systems Vital Signs Vitals Vital Signs Date Time Temp Pulse Resp B/P Pulse Ox O2 Delivery O2 Flow Rate FiO2 12/02/16 20:27 107 12/02/16 19:47 97.9 18 150/98 95 Intake and Output 12/01/16 12/01/16 12/02/16 14:59 22:59 06:59 Intake Total 50 ml 950 ml 400 ml Output Total 1600 ml 1600 ml Balance 50 ml -650 ml -1200 ml Results Result Diagram: 12/02/16 0636 12/02/16 0636 Results 24 hrs Laboratory Tests Test 12/02/16 06:36 White Blood Count 2.9 L Red Blood Count 2.94 L Hemoglobin 8.0 L Hematocrit 25.9 L Mean Corpuscular Volume 88.1 Mean Corpuscular Hemoglobin 27.2 L Mean Corpuscular Hemoglobin Concent 30.9 L Red Cell Distribution Width 15.9 H Platelet Count 238 Mean Platelet Volume 9.0 Neutrophils % 59.2 Lymphocytes % 29.4 Monocytes % 6.6 Eosinophils % 0.7 Basophils % 0.3 Nucleated Red Blood Cells % 0.0 Neutrophils # 1.7 Lymphocytes # 0.8 Monocytes # 0.2 L Eosinophils # 0.0 Basophils # 0.0 Nucleated Red Blood Cells # 0.0 Sodium Level 136 Potassium Level 4.4 Chloride Level 106 Carbon Dioxide Level 29 Anion Gap 5 L Blood Urea Nitrogen 10 Creatinine 0.56 Glucose Level 81 Calcium Level 8.1 L Phosphorus Level 2.9 Magnesium Level 1.8 Medications Medications Current Medications Ondansetron HCl (Zofran Inj) 4 mg Q6H PRN IV NAUSEA AND/OR VOMITING Last administered on 12/01/16 09:59; Admin Dose 4 MG; Start 11/11/16 at 16:00 Acetaminophen (Tylenol Tab) 650 mg Q6H PRN PO PAIN LEVEL 1-3 OR FEVER; Start at 16:00 Magnesium Hydroxide (Milk Of Mag) 30 ml DAILY PRN PO CONSTIPATION; Start at 16:00 Sodium Biphosphate/ Sodium Phosphate (Fleet Enema) 133 ml DAILY PRN [place] CONSTIPATION; Start 11/11/16 at 16:00 Hydralazine HCl (Apresoline) 10 mg Q6H PRN IV ELEVATED BLOOD PRESSURE; Start at 16:00 Nitroglycerin (Nitroglycerin (Sl Tab) 0.4 Mg) 1 tab Q5M PRN SL ANGINA Last administered on 11/11/16 23:25; Admin Dose 1 TAB; Start 11/11/16 at 16:00 Efavirenz (Sustiva) 600 mg DAILY PO Last administered on 12/02/16 08:41; Admin Dose 600 MG; Start 11/12/16 at 09:00 Emtricitabine/ Tenofovir (Truvada) 1 tab DAILY PO Last administered on 08:55; Admin Dose 1 TAB; Start 11/12/16 at 09:00 Sucralfate (Carafate) 1 gm QID PO Last administered on 12/02/16 20:48; Admin Dose 1 GM; Start 11/11/16 at 17:00 Valganciclovir (Valcyte) 450 mg Q12 PO Last administered on 12/02/16 20:49; Admin Dose 450 MG; Start 11/11/16 at 21:00 Collagenase (Santyl) 1 applic DAILY TOP Last administered on 12/02/16 14:04; Admin Dose 1 APPLIC; Start 11/12/16 at 13:00 Collagenase (Santyl) 1 applic PRN PRN TOP WOUND CARE; Start 11/12/16 at 12:00 Mesalamine (Delzicol Dr) 800 mg QID PO Last administered on 12/02/16 20:49; Admin Dose 800 MG; Start 11/12/16 at 21:00 Vancomycin HCl (Vancomycin Oral Syringe) 250 mg Q6 PO Last administered on 12/02 17:25; Admin Dose 250 MG; Start 11/12/16 at 19:30 Fluconazole (Diflucan) 100 mg DAILY PO Last administered on 12/02/16 08:42; Admin Dose 100 MG; Start 11/13/16 at 09:00 Lactobacillus Acidophilus 1 each 1 each BID PO Last administered on 12/02/16 20:49; Admin Dose 1 EACH; Start 11/13/16 at 21:00 Cefepime HCl (Maxipime 1gm/50 ml (Pmx)) 50 ml @ 100 mls/hr Q12 IVPB Last administered on 12/02/16 20:48; Admin Dose 100 MLS/HR; Start 11/26/16 at 11:30 Pantoprazole (Protonix Tab) 40 mg BID@06,18 PO Last administered on 12/02/16 17:25; Admin Dose 40 MG; Start 11/28/16 at 06:00 Metoclopramide HCl (Reglan) 5 mg TID PO Last administered on 12/02/16 20:52; Admin Dose 5 MG; Start 11/27/16 at 21:00 Levetiracetam (Keppra) 500 mg BID PO Last administered on 12/02/16 20:48; Admin Dose 500 MG; Start 11/27/16 at 21:00 Potassium Chloride (Klor-Con 20) 40 meq BID PO Last administered on 12/02/16 20:49; Admin Dose 40 MEQ; Start 11/27/16 at 21:00 Enoxaparin Sodium (Lovenox) 40 mg DAILY SC Last administered on 12/02/16 08:48 ; Admin Dose 40 MG; Start 11/29/16 at 09:00 Magnesium Oxide (Mag-Ox 400) 400 mg TID PO Last administered on 12/02/16 20:52 ; Admin Dose 400 MG; Start 11/30/16 at 21:00 Metoprolol Tartrate (Lopressor) 12.5 mg DAILY PO Last administered on 12:13; Admin Dose 12.5 MG; Start 12/02/16 at 11:30 ASHISH MENDOZA MD Dec 02, 2016 21:08
[2016-12-03] VITALS (11 sets, daily range): BP systolic 119–137; BP diastolic 81–103; PULSE 97–122; RESP 18–19
[2016-12-03] MEDS: VANCOMYCIN HCL 250 MG/5ML POSYG PO SCH ×4 (00:50→17:41)
[2016-12-03] MEDS: PANTOPRAZOLE (EC) 40 MG TAB PO SCH ×2 (06:00→17:41)
--- NOTE | 2016-12-03 07:29 | PN ---
Date/Time of Note Date/Time of Note DATE: 12/03/16 TIME: 07:28 Assessment/Plan VTE Prophylaxis VTE Prophylaxis Intervention: LMWH Lines/Catheters [facility] Type ([facility] PICC Line Central line still needed: Yes Urinary Cath still in place: Yes Reason Cath still needed: other (indicate) Assessment/Plan Chief Complaint/Hosp Course 1. Lower gastrointestinal bleeding. Status post upper and lower endoscopy on 11/13/2016 that showed severe ulcerative esophagitis and a universal ulcerative colitis. Continue management as per Gastroenterology. Continue Mesalamine and Protonix. 2. Severe anemia secondary to #1, status post PRBC and platelet transfusion. Continue to monitor H&H closely. Transfuse as needed. 3. Human immunodeficiency virus/acquired immunodeficiency syndrome. CD4 count less than 35. CD4 count 157. Continue HAART. 4. Deconditioning. Physical therapy. 5. Multiple chronic wounds that are infected. Continue antimicrobials as per Infectious Disease. 6. History of polysubstance abuse. 7. History of depression and post-traumatic stress disorder. Continue mood stabilizers. 8. Urinary tract infection with E. coli and Proteus mirabilis. Continue antibiotics as per Infectious Disease. 9. Severe protein calorie malnutrition. Continue protein supplements. 10. Right lower quadrant abdominal orifice draining clear fluid. Resolved. 11. Seizure disorder (single witnessed episode). Status post evaluation by neurology. Continue anticonvulsants. 12. Possible aspiration pneumonia. Continue antibiotics as per infectious diseases. Aspiration precautions. 13. Fluid, electrolytes and nutrition. Regular diet. 14. Deep vein thrombosis prophylaxis. Subcutaneous Lovenox. 15. Gastrointestinal prophylaxis. Proton pump inhibitors. 16. Plan. Continue current management. Start low-dose beta-blockers for tachycardia and elevated blood pressure. Await placement. Case discussed with Dr. Swanson. Problems: Subjective 24 Hr Interval Summary Free Text/Dictation No changes in status. Exam/Review of Systems Vital Signs Vitals Vital Signs Date Time Temp Pulse Resp B/P Pulse Ox O2 Delivery O2 Flow Rate FiO2 12/03/16 04:03 108 12/03/16 03:59 98.0 19 137/103 95 Intake and Output 12/02/16 12/02/16 12/03/16 15:00 23:00 07:00 Intake Total 1000 ml 450 ml Output Total 1600 ml 1300 ml Balance -600 ml -850 ml Exam GENERAL: This is a 41-year-old female who appears malnourished, lying in bed in no apparent distress. HEENT: Head normocephalic and atraumatic. Eyes: Anicteric sclerae. Conjunctivae clear. ENT: Nasal septum is midline. Oral mucosa is dry. NECK: Supple. No JVD noticed. RESPIRATORY: Bilaterally clear to auscultation. No adventitious breath sounds heard. No use of accessory muscles of respiration. CARDIAC: Regular rate and rhythm. No murmurs heard. ABDOMEN: Soft, nontender and nondistended. Bowel sounds positive in all 4 quadrants. Right lower quadrant drain in place. GENITOURINARY: Deferred. EXTREMITIES: No cyanosis, no clubbing. Bilateral lower extremity edema. Peripheral pulses palpable. NEUROLOGIC: The patient is awake, alert and oriented. Cranial nerves are grossly intact. Results Result Diagram: 12/02/1663512/02/16635 Medications Medications Current Medications Ondansetron HCl (Zofran Inj) 4 mg Q6H PRN IV NAUSEA AND/OR VOMITING Last administered on 12/01/16 09:59; Admin Dose 4 MG; Start 11/11/16 at 16:00 Acetaminophen (Tylenol Tab) 650 mg Q6H PRN PO PAIN LEVEL 1-3 OR FEVER; Start at 16:00 Magnesium Hydroxide (Milk Of Mag) 30 ml DAILY PRN PO CONSTIPATION; Start at 16:00 Sodium Biphosphate/ Sodium Phosphate (Fleet Enema) 133 ml DAILY PRN [place] CONSTIPATION; Start 11/11/16 at 16:00 Hydralazine HCl (Apresoline) 10 mg Q6H PRN IV ELEVATED BLOOD PRESSURE; Start at 16:00 Nitroglycerin (Nitroglycerin (Sl Tab) 0.4 Mg) 1 tab Q5M PRN SL ANGINA Last administered on 11/11/16 23:25; Admin Dose 1 TAB; Start 11/11/16 at 16:00 Efavirenz (Sustiva) 600 mg DAILY PO Last administered on 12/02/16 08:41; Admin Dose 600 MG; Start 11/12/16 at 09:00 Emtricitabine/ Tenofovir (Truvada) 1 tab DAILY PO Last administered on 08:55; Admin Dose 1 TAB; Start 11/12/16 at 09:00 Sucralfate (Carafate) 1 gm QID PO Last administered on 12/02/16 20:48; Admin Dose 1 GM; Start 11/11/16 at 17:00 Valganciclovir (Valcyte) 450 mg Q12 PO Last administered on 12/02/16 20:49; Admin Dose 450 MG; Start 11/11/16 at 21:00 Collagenase (Santyl) 1 applic DAILY TOP Last administered on 12/02/16 14:04; Admin Dose 1 APPLIC; Start 11/12/16 at 13:00 Collagenase (Santyl) 1 applic PRN PRN TOP WOUND CARE; Start 11/12/16 at 12:00 Mesalamine (Delzicol Dr) 800 mg QID PO Last administered on 12/02/16 20:49; Admin Dose 800 MG; Start 11/12/16 at 21:00 Vancomycin HCl (Vancomycin Oral Syringe) 250 mg Q6 PO Last administered on 12/03 06:00; Admin Dose 250 MG; Start 11/12/16 at 19:30 Fluconazole (Diflucan) 100 mg DAILY PO Last administered on 12/02/16 08:42; Admin Dose 100 MG; Start 11/13/16 at 09:00 Lactobacillus Acidophilus 1 each 1 each BID PO Last administered on 12/02/16 20:49; Admin Dose 1 EACH; Start 11/13/16 at 21:00 Cefepime HCl (Maxipime 1gm/50 ml (Pmx)) 50 ml @ 100 mls/hr Q12 IVPB Last administered on 12/02/16 20:48; Admin Dose 100 MLS/HR; Start 11/26/16 at 11:30 Pantoprazole (Protonix Tab) 40 mg BID@06,18 PO Last administered on 12/03/16 06:00; Admin Dose 40 MG; Start 11/28/16 at 06:00 Metoclopramide HCl (Reglan) 5 mg TID PO Last administered on 12/02/16 20:52; Admin Dose 5 MG; Start 11/27/16 at 21:00 Levetiracetam (Keppra) 500 mg BID PO Last administered on 12/02/16 20:48; Admin Dose 500 MG; Start 11/27/16 at 21:00 Potassium Chloride (Klor-Con 20) 40 meq BID PO Last administered on 12/02/16 20:49; Admin Dose 40 MEQ; Start 11/27/16 at 21:00 Enoxaparin Sodium (Lovenox) 40 mg DAILY SC Last administered on 12/02/16 08:48 ; Admin Dose 40 MG; Start 11/29/16 at 09:00 Magnesium Oxide (Mag-Ox 400) 400 mg TID PO Last administered on 12/02/16 20:52 ; Admin Dose 400 MG; Start 11/30/16 at 21:00 Metoprolol Tartrate (Lopressor) 12.5 mg DAILY PO Last administered on 12:13; Admin Dose 12.5 MG; Start 12/02/16 at 11:30 TK PERALES NP Dec 03, 2016 07:29
[2016-12-03 07:53] LABS: ADD SCAN DIFF NO
[2016-12-03 07:55] LABS: BASOPHILS % 0.7 % (0.0-2.0); EOSINOPHILS % 0.4 % (0.0-7.0); HEMATOCRIT 25.2 % (37.0-47.0); HEMOGLOBIN 8.1 g/dl (12.0-16.0); LYMPHOCYTES % 21.9 % (15.0-51.0); MEAN CORPUSCULAR HEMOGLOBIN 28.1 pg (29.0-33.0); MEAN CORPUSCULAR HGB CONC 32.1 g/dl (32.0-37.0); MEAN CORPUSCULAR VOLUME 87.5 fl (82.0-101.0); MEAN PLATELET VOLUME 8.9 fl (7.4-10.4); MONOCYTE # 0.3 10^3/ul (0.3-0.9); MONOCYTES % 5.8 % (0.0-11.0); NEUTROPHILS % 67.4 % (39.0-77.0); PLATELET COUNT 270 10^3/UL (140-415); RED BLOOD COUNT 2.88 10^6/ul (4.20-5.40); RED CELL DISTRIBUTION WIDTH 15.9 % (11.5-14.5); WHITE BLOOD COUNT 4.5 10^3/ul (4.8-10.8)
[2016-12-03 08:20] LABS: CALCIUM 8.3 mg/dl (8.4-10.2); CREATININE 0.45 mg/dl (0.44-1.00); POTASSIUM 4.7 mmol/L (3.5-5.1)
[2016-12-03 08:24] LABS: MAGNESIUM 1.6 mg/dl (1.7-2.5); PHOSPHORUS 2.4 mg/dl (2.5-4.9)
[2016-12-03] MEDS: CEFEPIME 1GM/50 ML (PMX) 50 ML IVPB SCH ×2 (08:53→21:38)
[2016-12-03] MEDS: SUCRALFATE 1 GM TAB PO SCH ×4 (08:53→21:38)
[2016-12-03] MEDS: FLUCONAZOLE 100 MG TAB PO SCH (08:54)
[2016-12-03] MEDS: MESALAMINE (EC) 400 MG CAP PO SCH ×4 (08:54→21:38)
[2016-12-03] MEDS: L ACIDOPHIL/B LACTIS/B LONGUM CAPSULE PO SCH ×2 (08:55→21:39)
[2016-12-03] MEDS: LEVETIRACETAM 500 MG TAB PO SCH ×2 (08:55→21:39)
[2016-12-03] MEDS: POTASSIUM CHLORIDE (SR) 20 MEQ TAB PO SCH ×2 (08:57→21:39)
[2016-12-03] MEDS: METOPROLOL 25 MG TAB PO SCH (08:58)
[2016-12-03] MEDS: METOCLOPRAMIDE 5 MG TAB PO SCH ×3 (08:59→21:39)
[2016-12-03] MEDS: MAGNESIUM OXIDE 400 MG TAB PO SCH ×3 (08:59→21:39)
[2016-12-03] MEDS: EMTRICITABINE/TENOFOVIR TAB PO SCH (08:59)
[2016-12-03] MEDS: VALGANCICLOVIR 450 MG TAB PO SCH ×2 (08:59→21:39)
[2016-12-03] MEDS: ENOXAPARIN 40 MG/0.4 ML SYG SC SCH (09:01)
[2016-12-03] MEDS: COLLAGENASE 30 GM TUBE TOP SCH (09:01)
[2016-12-03] MEDS: EFAVIRENZ 600 MG TAB PO SCH (09:13)
[2016-12-03] MEDS ORDERED: MAGNESIUM SULFATE 2 GM/50 ML 50 ML IVPB ONE (10:00)
--- NOTE | 2016-12-03 13:59 | PN ---
DATE: 12/03/2016 SUBJECTIVE: The patient remains stable, no evidence of respiratory distress this morning. Neurologi ajay unchanged. PHYSICAL EXAMINATION: VITAL SIGNS: Temperature 98, pulse 99, blood pressure 128/81, O2 saturation 96% on room air. NECK: Supple. No JVD or lymphadenopathy. CARDIAC: S1, S2, no added sounds or murmurs. CHEST: Diminished air entry bilaterally. ABDOMEN: Soft, nontender. No guarding or rebound. EXTREMITIES: No cyanosis, clubbing, or edema. NEUROLOGIC: Generalized weakness. LABORATORY DATA: White count 4.5, hemoglobin 8.1, platelets 270, BUN 14, creatinine 0.45. IMPRESSION AND PLAN: 1. Status post gastrointestinal bleed. 2. Recent hypoxemic respiratory failure, probably aspiration pneumonia. 3. Severe malnutrition. 4. Multiple decubitus ulcers. 5. History of human immunodeficiency virus. 6. History of polysubstance abuse. PLAN: 1. Continue GI recommendations for gastrointestinal bleeding. 2. Continue wound care. 3. Continue ID recommendations. 4. Aspiration precautions. 5. Pulmonary status remains stable. I will follow as needed from now onwards. Dictated By: SHADI MCNAMARA/SHILPA Conf#: [id number] DID#: [id number]
--- NOTE | 2016-12-03 14:59 | CONS ---
Date/Time of Note Date/Time of Note DATE: 12/03/16 TIME: 14:58 Assessment/Plan Assessment/Plan Chief Complaint/Hosp Course SUBJECTIVE: No events overnight. No fevers. Alert, looks comfortable MICROBIOLOGY: Repeat blood and urine cultures negative. ANTIMICROBIALS: 1. Cefepime. 3. Oral vancomycin. 4. Fluconazole. 5. Truvada. 6. Sustiva. 7. Valcyte. PHYSICAL EXAMINATION: GENERAL: This is a chronically ill-appearing, cachectic, wasted, middle-aged white woman who is lying comfortably in bed. HEENT: Head atraumatic, normocephalic. Sclerae anicteric. Buccal mucosa dry. NECK: Supple. CHEST: Rise symmetrical. Breath sounds diminished. HEART: S1, S2. ABDOMEN: Soft. Bowel tones present. EXTREMITIES: Without cyanosis. Bilateral edema. SKIN: Positive for anasarca. ASSESSMENT: 1. Status post severe sepsis with shock. 2. Acute encephalopathy, possibly post-ictal==> improving. 3. Questionable mastoiditis. 4. Healthcare-acquired pneumonia, possibly aspiration. 5. Human immunodeficiency virus with CD4 count of 241. 6. Multiple chronic wounds. 7. History of Inocencia esophagitis. PLAN: The patient remains stable. Completed treatment for PNA, will dc Cefepime tomorrow, continue other Rx, aspiration precautions. Follow recommendations of consultants. dw staff Problems: Consultation Date/Type/Reason Admit Date/Time November 11, 2016 at 15:19 Initial Consult Date 11/11/16 Type of Consultation: id Referring Provider: JESUS RUIZ Exam/Review of Systems Vital Signs Vitals Vital Signs Date Time Temp Pulse Resp B/P Pulse Ox O2 Delivery O2 Flow Rate FiO2 12/03/16 12:01 99 12/03/16 11:54 98.3 18 128/81 96 Intake and Output 12/02/16 12/02/16 12/03/16 15:00 23:00 07:00 Intake Total 1000 ml 450 ml Output Total 1600 ml 1300 ml Balance -600 ml -850 ml Results Result Diagram: 12/03/16 0646 12/03/16 0646 Results 24 hrs Laboratory Tests Test 12/03/16 06:46 White Blood Count 4.5 #L Red Blood Count 2.88 L Hemoglobin 8.1 L Hematocrit 25.2 L Mean Corpuscular Volume 87.5 Mean Corpuscular Hemoglobin 28.1 L Mean Corpuscular Hemoglobin Concent 32.1 Red Cell Distribution Width 15.9 H Platelet Count 270 Mean Platelet Volume 8.9 Neutrophils % 67.4 Lymphocytes % 21.9 Monocytes % 5.8 Eosinophils % 0.4 Basophils % 0.7 Nucleated Red Blood Cells % 0.0 Neutrophils # 3.0 Lymphocytes # 1.0 Monocytes # 0.3 Eosinophils # 0.0 Basophils # 0.0 Nucleated Red Blood Cells # 0.0 Sodium Level 135 Potassium Level 4.7 Chloride Level 107 Carbon Dioxide Level 27 Anion Gap 6 L Blood Urea Nitrogen 14 Creatinine 0.45 Glucose Level 83 Calcium Level 8.3 L Phosphorus Level 2.4 L Magnesium Level 1.6 L Medications Medications Current Medications Ondansetron HCl (Zofran Inj) 4 mg Q6H PRN IV NAUSEA AND/OR VOMITING Last administered on 12/01/16 09:59; Admin Dose 4 MG; Start 11/11/16 at 16:00 Acetaminophen (Tylenol Tab) 650 mg Q6H PRN PO PAIN LEVEL 1-3 OR FEVER; Start at 16:00 Magnesium Hydroxide (Milk Of Mag) 30 ml DAILY PRN PO CONSTIPATION; Start at 16:00 Sodium Biphosphate/ Sodium Phosphate (Fleet Enema) 133 ml DAILY PRN [place] CONSTIPATION; Start 11/11/16 at 16:00 Hydralazine HCl (Apresoline) 10 mg Q6H PRN IV ELEVATED BLOOD PRESSURE; Start at 16:00 Nitroglycerin (Nitroglycerin (Sl Tab) 0.4 Mg) 1 tab Q5M PRN SL ANGINA Last administered on 11/11/16 23:25; Admin Dose 1 TAB; Start 11/11/16 at 16:00 Efavirenz (Sustiva) 600 mg DAILY PO Last administered on 12/03/16 09:13; Admin Dose 600 MG; Start 11/12/16 at 09:00 Emtricitabine/ Tenofovir (Truvada) 1 tab DAILY PO Last administered on 08:59; Admin Dose 1 TAB; Start 11/12/16 at 09:00 Sucralfate (Carafate) 1 gm QID PO Last administered on 12/03/16 13:14; Admin Dose 1 GM; Start 11/11/16 at 17:00 Valganciclovir (Valcyte) 450 mg Q12 PO Last administered on 12/03/16 08:59; Admin Dose 450 MG; Start 11/11/16 at 21:00 Collagenase (Santyl) 1 applic DAILY TOP Last administered on 12/03/16 09:01; Admin Dose 1 APPLIC; Start 11/12/16 at 13:00 Collagenase (Santyl) 1 applic PRN PRN TOP WOUND CARE; Start 11/12/16 at 12:00 Mesalamine (Delzicol Dr) 800 mg QID PO Last administered on 12/03/16 13:15; Admin Dose 800 MG; Start 11/12/16 at 21:00 Vancomycin HCl (Vancomycin Oral Syringe) 250 mg Q6 PO Last administered on 12/03 11:01; Admin Dose 250 MG; Start 11/12/16 at 19:30 Fluconazole (Diflucan) 100 mg DAILY PO Last administered on 12/03/16 08:54; Admin Dose 100 MG; Start 11/13/16 at 09:00 Lactobacillus Acidophilus 1 each 1 each BID PO Last administered on 12/03/16 08:55; Admin Dose 1 EACH; Start 11/13/16 at 21:00 Cefepime HCl (Maxipime 1gm/50 ml (Pmx)) 50 ml @ 100 mls/hr Q12 IVPB Last administered on 12/03/16 08:53; Admin Dose 100 MLS/HR; Start 11/26/16 at 11:30 Pantoprazole (Protonix Tab) 40 mg BID@06,18 PO Last administered on 12/03/16 06:00; Admin Dose 40 MG; Start 11/28/16 at 06:00 Metoclopramide HCl (Reglan) 5 mg TID PO Last administered on 12/03/16 13:15; Admin Dose 5 MG; Start 11/27/16 at 21:00 Levetiracetam (Keppra) 500 mg BID PO Last administered on 12/03/16 08:55; Admin Dose 500 MG; Start 11/27/16 at 21:00 Potassium Chloride (Klor-Con 20) 40 meq BID PO Last administered on 12/03/16 08:57; Admin Dose 40 MEQ; Start 11/27/16 at 21:00 Enoxaparin Sodium (Lovenox) 40 mg DAILY SC Last administered on 12/03/16 09:01 ; Admin Dose 40 MG; Start 11/29/16 at 09:00 Magnesium Oxide (Mag-Ox 400) 400 mg TID PO Last administered on 12/03/16 13:15 ; Admin Dose 400 MG; Start 11/30/16 at 21:00 Metoprolol Tartrate (Lopressor) 12.5 mg DAILY PO Last administered on 08:58; Admin Dose 12.5 MG; Start 12/02/16 at 11:30 AGUILA BURGOS NP Dec 03, 2016 14:59
--- NOTE | 2016-12-03 17:59 | CONS ---
Date/Time of Note Date/Time of Note DATE: 12/03/16 TIME: 17:57 Assessment/Plan Assessment/Plan Additional Assessment/Plan 1. Severe hyperchloremia with a chloride of 117, unclear etiology. 2. Acute encephalopathy. 3. Status post hemorrhagic shock. 4. Human immunodeficiency virus positive with CD4 count of 157. 5. Positive colitis. 6. Multiple decubitus ulcers. 7. Status post urinary tract infection and sepsis on admission. 8. Depression. 9. Hypomagnesemia PLAN: on PO KCL replacement Mag Low today 1.4- mag Sulfate 2 gram IV x 1 then PO magnesium Bp stable afebril will follow up Consultation Date/Type/Reason Admit Date/Time November 11, 2016 at 15:19 Type of Consultation: NEPHROLOGY Referring Provider: JESUS RUIZ 24 HR Interval Summary Free Text/Dictation no acute events, BP stable , Mag low, on PO KCL Exam/Review of Systems Vital Signs Vitals Vital Signs Date Time Temp Pulse Resp B/P Pulse Ox O2 Delivery O2 Flow Rate FiO2 12/03/16 16:05 113 12/03/16 15:29 98.5 19 128/89 95 Intake and Output 12/02/16 12/02/16 12/03/16 15:00 23:00 07:00 Intake Total 1000 ml 450 ml Output Total 1600 ml 1300 ml Balance -600 ml -850 ml Results Result Diagram: 12/03/16 0646 12/03/16 0646 Results 24 hrs Laboratory Tests Test 12/03/16 06:46 White Blood Count 4.5 #L Red Blood Count 2.88 L Hemoglobin 8.1 L Hematocrit 25.2 L Mean Corpuscular Volume 87.5 Mean Corpuscular Hemoglobin 28.1 L Mean Corpuscular Hemoglobin Concent 32.1 Red Cell Distribution Width 15.9 H Platelet Count 270 Mean Platelet Volume 8.9 Neutrophils % 67.4 Lymphocytes % 21.9 Monocytes % 5.8 Eosinophils % 0.4 Basophils % 0.7 Nucleated Red Blood Cells % 0.0 Neutrophils # 3.0 Lymphocytes # 1.0 Monocytes # 0.3 Eosinophils # 0.0 Basophils # 0.0 Nucleated Red Blood Cells # 0.0 Sodium Level 135 Potassium Level 4.7 Chloride Level 107 Carbon Dioxide Level 27 Anion Gap 6 L Blood Urea Nitrogen 14 Creatinine 0.45 Glucose Level 83 Calcium Level 8.3 L Phosphorus Level 2.4 L Magnesium Level 1.6 L Medications Medications Current Medications Ondansetron HCl (Zofran Inj) 4 mg Q6H PRN IV NAUSEA AND/OR VOMITING Last administered on 12/01/16 09:59; Admin Dose 4 MG; Start 11/11/16 at 16:00 Acetaminophen (Tylenol Tab) 650 mg Q6H PRN PO PAIN LEVEL 1-3 OR FEVER; Start at 16:00 Magnesium Hydroxide (Milk Of Mag) 30 ml DAILY PRN PO CONSTIPATION; Start at 16:00 Sodium Biphosphate/ Sodium Phosphate (Fleet Enema) 133 ml DAILY PRN [place] CONSTIPATION; Start 11/11/16 at 16:00 Hydralazine HCl (Apresoline) 10 mg Q6H PRN IV ELEVATED BLOOD PRESSURE; Start at 16:00 Nitroglycerin (Nitroglycerin (Sl Tab) 0.4 Mg) 1 tab Q5M PRN SL ANGINA Last administered on 11/11/16 23:25; Admin Dose 1 TAB; Start 11/11/16 at 16:00 Efavirenz (Sustiva) 600 mg DAILY PO Last administered on 12/03/16 09:13; Admin Dose 600 MG; Start 11/12/16 at 09:00 Emtricitabine/ Tenofovir (Truvada) 1 tab DAILY PO Last administered on 08:59; Admin Dose 1 TAB; Start 11/12/16 at 09:00 Sucralfate (Carafate) 1 gm QID PO Last administered on 12/03/16 17:41; Admin Dose 1 GM; Start 11/11/16 at 17:00 Valganciclovir (Valcyte) 450 mg Q12 PO Last administered on 12/03/16 08:59; Admin Dose 450 MG; Start 11/11/16 at 21:00 Collagenase (Santyl) 1 applic DAILY TOP Last administered on 12/03/16 09:01; Admin Dose 1 APPLIC; Start 11/12/16 at 13:00 Collagenase (Santyl) 1 applic PRN PRN TOP WOUND CARE; Start 11/12/16 at 12:00 Mesalamine (Delzicol Dr) 800 mg QID PO Last administered on 12/03/16 17:41; Admin Dose 800 MG; Start 11/12/16 at 21:00 Vancomycin HCl (Vancomycin Oral Syringe) 250 mg Q6 PO Last administered on 12/03 17:41; Admin Dose 250 MG; Start 11/12/16 at 19:30 Fluconazole (Diflucan) 100 mg DAILY PO Last administered on 12/03/16 08:54; Admin Dose 100 MG; Start 11/13/16 at 09:00 Lactobacillus Acidophilus 1 each 1 each BID PO Last administered on 12/03/16 08:55; Admin Dose 1 EACH; Start 11/13/16 at 21:00 Cefepime HCl (Maxipime 1gm/50 ml (Pmx)) 50 ml @ 100 mls/hr Q12 IVPB Last administered on 12/03/16 08:53; Admin Dose 100 MLS/HR; Start 11/26/16 at 11:30 Pantoprazole (Protonix Tab) 40 mg BID@06,18 PO Last administered on 12/03/16 17:41; Admin Dose 40 MG; Start 11/28/16 at 06:00 Metoclopramide HCl (Reglan) 5 mg TID PO Last administered on 12/03/16 13:15; Admin Dose 5 MG; Start 11/27/16 at 21:00 Levetiracetam (Keppra) 500 mg BID PO Last administered on 12/03/16 08:55; Admin Dose 500 MG; Start 11/27/16 at 21:00 Potassium Chloride (Klor-Con 20) 40 meq BID PO Last administered on 12/03/16 08:57; Admin Dose 40 MEQ; Start 11/27/16 at 21:00 Enoxaparin Sodium (Lovenox) 40 mg DAILY SC Last administered on 12/03/16 09:01 ; Admin Dose 40 MG; Start 11/29/16 at 09:00 Magnesium Oxide (Mag-Ox 400) 400 mg TID PO Last administered on 12/03/16 13:15 ; Admin Dose 400 MG; Start 11/30/16 at 21:00 Metoprolol Tartrate (Lopressor) 12.5 mg DAILY PO Last administered on 08:58; Admin Dose 12.5 MG; Start 12/02/16 at 11:30 ASHISH MENDOZA MD Dec 03, 2016 17:59
--- NOTE | 2016-12-03 18:12 | PN ---
Date/Time of Note Date/Time of Note DATE: 12/03/16 TIME: 18:10 Assessment/Plan VTE Prophylaxis VTE Prophylaxis Intervention: contraindicated Lines/Catheters [facility] ([facility] PICC Line Central line still needed: Yes Urinary Cath still in place: Yes Reason Cath still needed: urinary retention Assessment/Plan Assessment/Plan Assessment * Anemia stable EGD 11/12/2016 Severe ulcerated esophagitis/Inocencia esophagitis Colonoscopy 11/12/2016 [place] ulcerative colitis. Moderate sized internal hemorrhoids * HIV disease. * Anasarca/small amount of ascites improved * Probably ascitic fluid leak right lower quadrant * Malnutrition * UTI * Polysubstance abuse * History of psychiatric illness Plan * Continue present management * advance diet as tolerated * will follow patient as needed Subjective 24 Hr Interval Summary Free Text/Dictation * Course reviewed with RN * Patient seen and examined * no untoward incident overnight Exam/Review of Systems Vital Signs Vitals Vital Signs Date Time Temp Pulse Resp B/P Pulse Ox O2 Delivery O2 Flow Rate FiO2 12/03/16 16:05 113 12/03/16 15:29 98.5 19 128/89 95 Intake and Output 12/02/16 12/02/16 12/03/16 15:00 23:00 07:00 Intake Total 1000 ml 450 ml Output Total 1600 ml 1300 ml Balance -600 ml -850 ml Exam Constitutional: alert, frail Head: normocephalic Neck: non-tender, supple Respiratory: clear to auscultation, diminished breath sounds, normal air movement Cardiovascular: nl pulses, regular rate and rhythm Gastrointestinal: non-tender, soft Musculoskeletal: nl extremities to inspection, nl gait and stance Extremities: normal pulses Neurological: nl speech Skin: nl turgor, rash or lesions Results Result Diagram: 12/03/16 0646 12/03/16 0646 Results 24 hrs Laboratory Tests Test 12/03/16 06:46 White Blood Count 4.5 #L Red Blood Count 2.88 L Hemoglobin 8.1 L Hematocrit 25.2 L Mean Corpuscular Volume 87.5 Mean Corpuscular Hemoglobin 28.1 L Mean Corpuscular Hemoglobin Concent 32.1 Red Cell Distribution Width 15.9 H Platelet Count 270 Mean Platelet Volume 8.9 Neutrophils % 67.4 Lymphocytes % 21.9 Monocytes % 5.8 Eosinophils % 0.4 Basophils % 0.7 Nucleated Red Blood Cells % 0.0 Neutrophils # 3.0 Lymphocytes # 1.0 Monocytes # 0.3 Eosinophils # 0.0 Basophils # 0.0 Nucleated Red Blood Cells # 0.0 Sodium Level 135 Potassium Level 4.7 Chloride Level 107 Carbon Dioxide Level 27 Anion Gap 6 L Blood Urea Nitrogen 14 Creatinine 0.45 Glucose Level 83 Calcium Level 8.3 L Phosphorus Level 2.4 L Magnesium Level 1.6 L Medications Medications Current Medications Ondansetron HCl (Zofran Inj) 4 mg Q6H PRN IV NAUSEA AND/OR VOMITING Last administered on 12/01/16 09:59; Admin Dose 4 MG; Start 11/11/16 at 16:00 Acetaminophen (Tylenol Tab) 650 mg Q6H PRN PO PAIN LEVEL 1-3 OR FEVER; Start at 16:00 Magnesium Hydroxide (Milk Of Mag) 30 ml DAILY PRN PO CONSTIPATION; Start at 16:00 Sodium Biphosphate/ Sodium Phosphate (Fleet Enema) 133 ml DAILY PRN [place] CONSTIPATION; Start 11/11/16 at 16:00 Hydralazine HCl (Apresoline) 10 mg Q6H PRN IV ELEVATED BLOOD PRESSURE; Start at 16:00 Nitroglycerin (Nitroglycerin (Sl Tab) 0.4 Mg) 1 tab Q5M PRN SL ANGINA Last administered on 11/11/16 23:25; Admin Dose 1 TAB; Start 11/11/16 at 16:00 Efavirenz (Sustiva) 600 mg DAILY PO Last administered on 12/03/16 09:13; Admin Dose 600 MG; Start 11/12/16 at 09:00 Emtricitabine/ Tenofovir (Truvada) 1 tab DAILY PO Last administered on 08:59; Admin Dose 1 TAB; Start 11/12/16 at 09:00 Sucralfate (Carafate) 1 gm QID PO Last administered on 12/03/16 17:41; Admin Dose 1 GM; Start 11/11/16 at 17:00 Valganciclovir (Valcyte) 450 mg Q12 PO Last administered on 12/03/16 08:59; Admin Dose 450 MG; Start 11/11/16 at 21:00 Collagenase (Santyl) 1 applic DAILY TOP Last administered on 12/03/16 09:01; Admin Dose 1 APPLIC; Start 11/12/16 at 13:00 Collagenase (Santyl) 1 applic PRN PRN TOP WOUND CARE; Start 11/12/16 at 12:00 Mesalamine (Delzicol Dr) 800 mg QID PO Last administered on 12/03/16 17:41; Admin Dose 800 MG; Start 11/12/16 at 21:00 Vancomycin HCl (Vancomycin Oral Syringe) 250 mg Q6 PO Last administered on 12/03 17:41; Admin Dose 250 MG; Start 11/12/16 at 19:30 Fluconazole (Diflucan) 100 mg DAILY PO Last administered on 12/03/16 08:54; Admin Dose 100 MG; Start 11/13/16 at 09:00 Lactobacillus Acidophilus 1 each 1 each BID PO Last administered on 12/03/16 08:55; Admin Dose 1 EACH; Start 11/13/16 at 21:00 Cefepime HCl (Maxipime 1gm/50 ml (Pmx)) 50 ml @ 100 mls/hr Q12 IVPB Last administered on 12/03/16 08:53; Admin Dose 100 MLS/HR; Start 11/26/16 at 11:30 Pantoprazole (Protonix Tab) 40 mg BID@06,18 PO Last administered on 12/03/16 17:41; Admin Dose 40 MG; Start 11/28/16 at 06:00 Metoclopramide HCl (Reglan) 5 mg TID PO Last administered on 12/03/16 13:15; Admin Dose 5 MG; Start 11/27/16 at 21:00 Levetiracetam (Keppra) 500 mg BID PO Last administered on 12/03/16 08:55; Admin Dose 500 MG; Start 11/27/16 at 21:00 Potassium Chloride (Klor-Con 20) 40 meq BID PO Last administered on 12/03/16 08:57; Admin Dose 40 MEQ; Start 11/27/16 at 21:00 Enoxaparin Sodium (Lovenox) 40 mg DAILY SC Last administered on 12/03/16 09:01 ; Admin Dose 40 MG; Start 11/29/16 at 09:00 Magnesium Oxide (Mag-Ox 400) 400 mg TID PO Last administered on 12/03/16 13:15 ; Admin Dose 400 MG; Start 11/30/16 at 21:00 Metoprolol Tartrate (Lopressor) 12.5 mg DAILY PO Last administered on t 08:58; Admin Dose 12.5 MG; Start 12/02/16 at 11:30 GUCCI STROUD NP Dec 03, 2016 18:12
[2016-12-04] VITALS (13 sets, daily range): BP systolic 113–134; BP diastolic 63–82; PULSE 99–125; RESP 17–20
[2016-12-04] MEDS: VANCOMYCIN HCL 250 MG/5ML POSYG PO SCH ×4 (02:09→17:40)
[2016-12-04] MEDS: PANTOPRAZOLE (EC) 40 MG TAB PO SCH ×2 (05:46→17:39)
[2016-12-04 08:10] LABS: ADD SCAN DIFF NO
[2016-12-04 08:15] LABS: BASOPHILS % 0.4 % (0.0-2.0); EOSINOPHILS % 0.7 % (0.0-7.0); HEMATOCRIT 26.8 % (37.0-47.0); HEMOGLOBIN 8.2 g/dl (12.0-16.0); LYMPHOCYTES # 1.3 10^3/ul (0.8-2.9); LYMPHOCYTES % 24.5 % (15.0-51.0); MEAN CORPUSCULAR HEMOGLOBIN 27.2 pg (29.0-33.0); MEAN CORPUSCULAR HGB CONC 30.6 g/dl (32.0-37.0); MONOCYTE # 0.4 10^3/ul (0.3-0.9); MONOCYTES % 6.4 % (0.0-11.0); NEUTROPHIL # 3.5 10^3/ul (1.6-7.5); NEUTROPHILS % 63.4 % (39.0-77.0); PLATELET COUNT 290 10^3/UL (140-415); RED BLOOD COUNT 3.01 10^6/ul (4.20-5.40); RED CELL DISTRIBUTION WIDTH 16.5 % (11.5-14.5); WHITE BLOOD COUNT 5.5 10^3/ul (4.8-10.8)
[2016-12-04 08:47] LABS: CALCIUM 8.2 mg/dl (8.4-10.2); CREATININE 0.48 mg/dl (0.44-1.00); POTASSIUM 4.7 mmol/L (3.5-5.1)
[2016-12-04 08:54] LABS: MAGNESIUM 1.9 mg/dl (1.7-2.5); PHOSPHORUS 2.3 mg/dl (2.5-4.9)
[2016-12-04] MEDS: LEVETIRACETAM 500 MG TAB PO SCH ×2 (09:04→20:50)
[2016-12-04] MEDS: FLUCONAZOLE 100 MG TAB PO SCH (09:04)
[2016-12-04] MEDS: EMTRICITABINE/TENOFOVIR TAB PO SCH (09:04)
[2016-12-04] MEDS: EFAVIRENZ 600 MG TAB PO SCH (09:04)
[2016-12-04] MEDS: METOCLOPRAMIDE 5 MG TAB PO SCH ×3 (09:05→20:50)
[2016-12-04] MEDS: MAGNESIUM OXIDE 400 MG TAB PO SCH ×3 (09:05→20:50)
[2016-12-04] MEDS: L ACIDOPHIL/B LACTIS/B LONGUM CAPSULE PO SCH ×2 (09:05→20:50)
[2016-12-04] MEDS: POTASSIUM CHLORIDE (SR) 20 MEQ TAB PO SCH ×2 (09:05→20:50)
[2016-12-04] MEDS: VALGANCICLOVIR 450 MG TAB PO SCH ×2 (09:05→20:50)
[2016-12-04] MEDS: SUCRALFATE 1 GM TAB PO SCH ×4 (09:05→20:50)
[2016-12-04] MEDS: METOPROLOL 25 MG TAB PO SCH (09:06)
[2016-12-04] MEDS: MESALAMINE (EC) 400 MG CAP PO SCH ×4 (09:06→20:49)
[2016-12-04] MEDS: ENOXAPARIN 40 MG/0.4 ML SYG SC SCH (09:07)
[2016-12-04] MEDS: COLLAGENASE 30 GM TUBE TOP SCH (09:07)
[2016-12-04] MEDS: CEFEPIME 1GM/50 ML (PMX) 50 ML IVPB SCH (09:11)
--- NOTE | 2016-12-04 11:04 | PN ---
Date/Time of Note Date/Time of Note DATE: 12/04/16 TIME: 10:59 Assessment/Plan VTE Prophylaxis VTE Prophylaxis Intervention: LMWH Lines/Catheters IV Catheter Type (from [facility]): PICC Line Central line still needed: Yes Urinary Cath still in place: Yes Reason Cath still needed: other (indicate) Assessment/Plan Chief Complaint/Hosp Course 1. Lower gastrointestinal bleeding. Status post upper and lower endoscopy on 11/13/2016 that showed severe ulcerative esophagitis and a universal ulcerative colitis. Continue management as per Gastroenterology. Continue Mesalamine and Protonix. 2. Severe anemia secondary to #1, status post PRBC and platelet transfusion. Continue to monitor H&H closely. Transfuse as needed. 3. Human immunodeficiency virus/acquired immunodeficiency syndrome. CD4 count less than 35. CD4 count 157. Continue HAART. 4. Deconditioning. Physical therapy. 5. Multiple chronic wounds that are infected. Continue antimicrobials as per Infectious Disease. 6. History of polysubstance abuse. 7. History of depression and post-traumatic stress disorder. Continue mood stabilizers. 8. Urinary tract infection with E. coli and Proteus mirabilis. Continue antibiotics as per Infectious Disease. 9. Severe protein calorie malnutrition. Continue protein supplements. 10. Right lower quadrant abdominal orifice draining clear fluid. Resolved. 11. Seizure disorder (single witnessed episode). Status post evaluation by neurology. Continue anticonvulsants. 12. Possible aspiration pneumonia. Continue antibiotics as per infectious diseases. Aspiration precautions. 13. Sinus tachycardia. Etiology could be multifactorial. The patient was started on low-dose data blockers. 13. Fluid, electrolytes and nutrition. Regular diet. 14. Deep vein thrombosis prophylaxis. Subcutaneous Lovenox. 15. Gastrointestinal prophylaxis. Proton pump inhibitors. 16. Plan. Continue current management. Replete phosphorus. Await placement. Case discussed with Dr. Swanson. Problems: Subjective 24 Hr Interval Summary Free Text/Dictation The patient continues to be tachycardic. Asking for more food. Exam/Review of Systems Vital Signs Vitals Vital Signs Date Time Temp Pulse Resp B/P Pulse Ox O2 Delivery O2 Flow Rate FiO2 12/04/16 08:12 125 12/04/16 07:35 98.5 19 128/69 94 Intake and Output 12/03/16 12/03/16 12/04/16 15:00 23:00 07:00 Intake Total 100 ml 400 ml 350 ml Output Total 500 ml 1975 ml Balance 100 ml -100 ml -1625 ml Exam GENERAL: This is a 41-year-old female who appears malnourished, lying in bed in no apparent distress. HEENT: Head normocephalic and atraumatic. Eyes: Anicteric sclerae. Conjunctivae clear. ENT: Nasal septum is midline. Oral mucosa is dry. NECK: Supple. No JVD noticed. RESPIRATORY: Bilaterally clear to auscultation. No adventitious breath sounds heard. No use of accessory muscles of respiration. CARDIAC: Regular rate and rhythm. No murmurs heard. ABDOMEN: Soft, nontender and nondistended. Bowel sounds positive in all 4 quadrants. Right lower quadrant drain in place. GENITOURINARY: Deferred. EXTREMITIES: No cyanosis, no clubbing. Bilateral lower extremity edema. Peripheral pulses palpable. NEUROLOGIC: The patient is awake, alert and oriented. Cranial nerves are grossly intact. Results Result Diagram: 12/04/16 0620 12/04/16 0620 Results 24 hrs Laboratory Tests Test 12/04/16 06:20 White Blood Count 5.5 # Red Blood Count 3.01 L Hemoglobin 8.2 L Hematocrit 26.8 L Mean Corpuscular Volume 89.0 Mean Corpuscular Hemoglobin 27.2 L Mean Corpuscular Hemoglobin Concent 30.6 L Red Cell Distribution Width 16.5 H Platelet Count 290 Mean Platelet Volume 9.0 Neutrophils % 63.4 Lymphocytes % 24.5 Monocytes % 6.4 Eosinophils % 0.7 Basophils % 0.4 Nucleated Red Blood Cells % 0.0 Neutrophils # 3.5 Lymphocytes # 1.3 Monocytes # 0.4 Eosinophils # 0.0 Basophils # 0.0 Nucleated Red Blood Cells # 0.0 Sodium Level 135 Potassium Level 4.7 Chloride Level 106 Carbon Dioxide Level 27 Anion Gap 7 L Blood Urea Nitrogen 18 Creatinine 0.48 Glucose Level 82 Calcium Level 8.2 L Phosphorus Level 2.3 L Magnesium Level 1.9 Medications Medications Current Medications Ondansetron HCl (Zofran Inj) 4 mg Q6H PRN IV NAUSEA AND/OR VOMITING Last administered on 12/01/16 09:59; Admin Dose 4 MG; Start 11/11/16 at 16:00 Acetaminophen (Tylenol Tab) 650 mg Q6H PRN PO PAIN LEVEL 1-3 OR FEVER; Start at 16:00 Magnesium Hydroxide (Milk Of Mag) 30 ml DAILY PRN PO CONSTIPATION; Start at 16:00 Sodium Biphosphate/ Sodium Phosphate (Fleet Enema) 133 ml DAILY PRN [place] CONSTIPATION; Start 11/11/16 at 16:00 Hydralazine HCl (Apresoline) 10 mg Q6H PRN IV ELEVATED BLOOD PRESSURE; Start at 16:00 Nitroglycerin (Nitroglycerin (Sl Tab) 0.4 Mg) 1 tab Q5M PRN SL ANGINA Last administered on 11/11/16 23:25; Admin Dose 1 TAB; Start 11/11/16 at 16:00 Efavirenz (Sustiva) 600 mg DAILY PO Last administered on 12/04/16 09:04; Admin Dose 600 MG; Start 11/12/16 at 09:00 Emtricitabine/ Tenofovir (Truvada) 1 tab DAILY PO Last administered on 09:04; Admin Dose 1 TAB; Start 11/12/16 at 09:00 Sucralfate (Carafate) 1 gm QID PO Last administered on 12/04/16 09:05; Admin Dose 1 GM; Start 11/11/16 at 17:00 Valganciclovir (Valcyte) 450 mg Q12 PO Last administered on 12/04/16 09:05; Admin Dose 450 MG; Start 11/11/16 at 21:00 Collagenase (Santyl) 1 applic DAILY TOP Last administered on 12/04/16 09:07; Admin Dose 1 APPLIC; Start 11/12/16 at 13:00 Collagenase (Santyl) 1 applic PRN PRN TOP WOUND CARE; Start 11/12/16 at 12:00 Mesalamine (Delzicol Dr) 800 mg QID PO Last administered on 12/04/16 09:06; Admin Dose 800 MG; Start 11/12/16 at 21:00 Vancomycin HCl (Vancomycin Oral Syringe) 250 mg Q6 PO Last administered on 12/04 05:45; Admin Dose 250 MG; Start 11/12/16 at 19:30 Fluconazole (Diflucan) 100 mg DAILY PO Last administered on 12/04/16 09:04; Admin Dose 100 MG; Start 11/13/16 at 09:00 Lactobacillus Acidophilus 1 each 1 each BID PO Last administered on 12/04/16 09:05; Admin Dose 1 EACH; Start 11/13/16 at 21:00 Cefepime HCl (Maxipime 1gm/50 ml (Pmx)) 50 ml @ 100 mls/hr Q12 IVPB Last administered on 12/04/16 09:11; Admin Dose 100 MLS/HR; Start 11/26/16 at 11:30 Pantoprazole (Protonix Tab) 40 mg BID@06,18 PO Last administered on 12/04/16 05:46; Admin Dose 40 MG; Start 11/28/16 at 06:00 Metoclopramide HCl (Reglan) 5 mg TID PO Last administered on 12/04/16 09:05; Admin Dose 5 MG; Start 11/27/16 at 21:00 Levetiracetam (Keppra) 500 mg BID PO Last administered on 12/04/16 09:04; Admin Dose 500 MG; Start 11/27/16 at 21:00 Potassium Chloride (Klor-Con 20) 40 meq BID PO Last administered on 12/04/16 09:05; Admin Dose 40 MEQ; Start 11/27/16 at 21:00 Enoxaparin Sodium (Lovenox) 40 mg DAILY SC Last administered on 12/04/16 09:07 ; Admin Dose 40 MG; Start 11/29/16 at 09:00 Magnesium Oxide (Mag-Ox 400) 400 mg TID PO Last administered on 12/04/16 09:05 ; Admin Dose 400 MG; Start 11/30/16 at 21:00 Metoprolol Tartrate (Lopressor) 12.5 mg DAILY PO Last administered on 09:06; Admin Dose 12.5 MG; Start 12/02/16 at 11:30 TK PERALES NP Dec 04, 2016 11:04
[2016-12-04] MEDS ORDERED: POTASSIUM PHOSPHATE 15 MM in SOD CHLORIDE 0.9% 250 ML IVPB ONE (12:00)
--- NOTE | 2016-12-04 17:15 | CONS ---
Date/Time of Note Date/Time of Note DATE: 12/04/16 TIME: 17:14 Assessment/Plan Assessment/Plan Additional Assessment/Plan 1. Severe hyperchloremia with a chloride of 117, unclear etiology. 2. Acute encephalopathy. 3. Status post hemorrhagic shock. 4. Human immunodeficiency virus positive with CD4 count of 157. 5. Positive colitis. 6. Multiple decubitus ulcers. 7. Status post urinary tract infection and sepsis on admission. 8. Depression. 9. Hypomagnesemia PLAN: PO KCL replacement plan for removal of portacath Bp stable Consultation Date/Type/Reason Admit Date/Time November 11, 2016 at 15:19 Type of Consultation: NEPHROLOGY Referring Provider: JESUS RIUZ 24 HR Interval Summary Free Text/Dictation no acute events, BP stable, afebrile Exam/Review of Systems Vital Signs Vitals Vital Signs Date Time Temp Pulse Resp B/P Pulse Ox O2 Delivery O2 Flow Rate FiO2 12/04/16 16:02 99 12/04/16 15:43 98.4 19 128/79 98 Intake and Output 12/03/16 12/03/16 12/04/16 15:00 23:00 07:00 Intake Total 100 ml 400 ml 350 ml Output Total 500 ml 1975 ml Balance 100 ml -100 ml -1625 ml Results Result Diagram: 12/04/16 0620 12/04/16 0620 Results 24 hrs Laboratory Tests Test 12/04/16 06:20 White Blood Count 5.5 # Red Blood Count 3.01 L Hemoglobin 8.2 L Hematocrit 26.8 L Mean Corpuscular Volume 89.0 Mean Corpuscular Hemoglobin 27.2 L Mean Corpuscular Hemoglobin Concent 30.6 L Red Cell Distribution Width 16.5 H Platelet Count 290 Mean Platelet Volume 9.0 Neutrophils % 63.4 Lymphocytes % 24.5 Monocytes % 6.4 Eosinophils % 0.7 Basophils % 0.4 Nucleated Red Blood Cells % 0.0 Neutrophils # 3.5 Lymphocytes # 1.3 Monocytes # 0.4 Eosinophils # 0.0 Basophils # 0.0 Nucleated Red Blood Cells # 0.0 Sodium Level 135 Potassium Level 4.7 Chloride Level 106 Carbon Dioxide Level 27 Anion Gap 7 L Blood Urea Nitrogen 18 Creatinine 0.48 Glucose Level 82 Calcium Level 8.2 L Phosphorus Level 2.3 L Magnesium Level 1.9 Medications Medications Current Medications Ondansetron HCl (Zofran Inj) 4 mg Q6H PRN IV NAUSEA AND/OR VOMITING Last administered on 12/01/16 09:59; Admin Dose 4 MG; Start 11/11/16 at 16:00 Acetaminophen (Tylenol Tab) 650 mg Q6H PRN PO PAIN LEVEL 1-3 OR FEVER; Start at 16:00 Magnesium Hydroxide (Milk Of Mag) 30 ml DAILY PRN PO CONSTIPATION; Start at 16:00 Sodium Biphosphate/ Sodium Phosphate (Fleet Enema) 133 ml DAILY PRN [place] CONSTIPATION; Start 11/11/16 at 16:00 Hydralazine HCl (Apresoline) 10 mg Q6H PRN IV ELEVATED BLOOD PRESSURE; Start at 16:00 Nitroglycerin (Nitroglycerin (Sl Tab) 0.4 Mg) 1 tab Q5M PRN SL ANGINA Last administered on 11/11/16 23:25; Admin Dose 1 TAB; Start 11/11/16 at 16:00 Efavirenz (Sustiva) 600 mg DAILY PO Last administered on 12/04/16 09:04; Admin Dose 600 MG; Start 11/12/16 at 09:00 Emtricitabine/ Tenofovir (Truvada) 1 tab DAILY PO Last administered on 09:04; Admin Dose 1 TAB; Start 11/12/16 at 09:00 Sucralfate (Carafate) 1 gm QID PO Last administered on 12/04/16 12:20; Admin Dose 1 GM; Start 11/11/16 at 17:00 Valganciclovir (Valcyte) 450 mg Q12 PO Last administered on 12/04/16 09:05; Admin Dose 450 MG; Start 11/11/16 at 21:00 Collagenase (Santyl) 1 applic DAILY TOP Last administered on 12/04/16 09:07; Admin Dose 1 APPLIC; Start 11/12/16 at 13:00 Collagenase (Santyl) 1 applic PRN PRN TOP WOUND CARE; Start 11/12/16 at 12:00 Mesalamine (Delzicol Dr) 800 mg QID PO Last administered on 12/04/16 12:21; Admin Dose 800 MG; Start 11/12/16 at 21:00 Vancomycin HCl (Vancomycin Oral Syringe) 250 mg Q6 PO Last administered on 12/04 12:22; Admin Dose 250 MG; Start 11/12/16 at 19:30 Fluconazole (Diflucan) 100 mg DAILY PO Last administered on 12/04/16 09:04; Admin Dose 100 MG; Start 11/13/16 at 09:00 Lactobacillus Acidophilus 1 each 1 each BID PO Last administered on 12/04/16 09:05; Admin Dose 1 EACH; Start 11/13/16 at 21:00 Cefepime HCl (Maxipime 1gm/50 ml (Pmx)) 50 ml @ 100 mls/hr Q12 IVPB Last administered on 12/04/16 09:11; Admin Dose 100 MLS/HR; Start 11/26/16 at 11:30 Pantoprazole (Protonix Tab) 40 mg BID@06,18 PO Last administered on 12/04/16 05:46; Admin Dose 40 MG; Start 11/28/16 at 06:00 Metoclopramide HCl (Reglan) 5 mg TID PO Last administered on 12/04/16 12:21; Admin Dose 5 MG; Start 11/27/16 at 21:00 Levetiracetam (Keppra) 500 mg BID PO Last administered on 12/04/16 09:04; Admin Dose 500 MG; Start 11/27/16 at 21:00 Potassium Chloride (Klor-Con 20) 40 meq BID PO Last administered on 12/04/16 09:05; Admin Dose 40 MEQ; Start 11/27/16 at 21:00 Enoxaparin Sodium (Lovenox) 40 mg DAILY SC Last administered on 12/04/16 09:07 ; Admin Dose 40 MG; Start 11/29/16 at 09:00 Magnesium Oxide (Mag-Ox 400) 400 mg TID PO Last administered on 12/04/16 12:21 ; Admin Dose 400 MG; Start 11/30/16 at 21:00 Metoprolol Tartrate (Lopressor) 12.5 mg DAILY PO Last administered on 09:06; Admin Dose 12.5 MG; Start 12/02/16 at 11:30 ASHISH MENDOZA MD Dec 04, 2016 17:15
--- NOTE | 2016-12-04 20:40 | CONS ---
Date/Time of Note Date/Time of Note DATE: 12/04/16 TIME: 20:40 Assessment/Plan Assessment/Plan Chief Complaint/Hosp Course SUBJECTIVE: No events overnight. No fevers. Alert, looks comfortable MICROBIOLOGY: Repeat blood and urine cultures negative. ANTIMICROBIALS: 1. Cefepime. 3. Oral vancomycin. 4. Fluconazole. 5. Truvada. 6. Sustiva. 7. Valcyte. PHYSICAL EXAMINATION: GENERAL: This is a chronically ill-appearing, cachectic, wasted, middle-aged white woman who is lying comfortably in bed. HEENT: Head atraumatic, normocephalic. Sclerae anicteric. Buccal mucosa dry. NECK: Supple. CHEST: Rise symmetrical. Breath sounds diminished. HEART: S1, S2. ABDOMEN: Soft. Bowel tones present. EXTREMITIES: Without cyanosis. Bilateral edema. SKIN: Positive for anasarca. ASSESSMENT: 1. Status post severe sepsis with shock. 2. Acute encephalopathy, possibly post-ictal==> improving. 3. Questionable mastoiditis. 4. Healthcare-acquired pneumonia, possibly aspiration. 5. Human immunodeficiency virus with CD4 count of 241. 6. Multiple chronic wounds. 7. History of Inocencia esophagitis. PLAN: The patient remains stable. Will dc Cefepime, continue other Rx, optimize nutrition dw staff Problems: Consultation Date/Type/Reason Admit Date/Time November 11, 2016 at 15:19 Initial Consult Date 11/11/16 Type of Consultation: ID Referring Provider: JESUS RUIZ Exam/Review of Systems Vital Signs Vitals Vital Signs Date Time Temp Pulse Resp B/P Pulse Ox O2 Delivery O2 Flow Rate FiO2 12/04/16 20:26 120 12/04/16 15:43 98.4 19 128/79 98 Intake and Output 12/03/16 12/03/16 12/04/16 15:00 23:00 07:00 Intake Total 100 ml 400 ml 350 ml Output Total 500 ml 1975 ml Balance 100 ml -100 ml -1625 ml Results Result Diagram: 12/04/16 0620 12/04/16 0620 Results 24 hrs Laboratory Tests Test 12/04/16 06:20 White Blood Count 5.5 # Red Blood Count 3.01 L Hemoglobin 8.2 L Hematocrit 26.8 L Mean Corpuscular Volume 89.0 Mean Corpuscular Hemoglobin 27.2 L Mean Corpuscular Hemoglobin Concent 30.6 L Red Cell Distribution Width 16.5 H Platelet Count 290 Mean Platelet Volume 9.0 Neutrophils % 63.4 Lymphocytes % 24.5 Monocytes % 6.4 Eosinophils % 0.7 Basophils % 0.4 Nucleated Red Blood Cells % 0.0 Neutrophils # 3.5 Lymphocytes # 1.3 Monocytes # 0.4 Eosinophils # 0.0 Basophils # 0.0 Nucleated Red Blood Cells # 0.0 Sodium Level 135 Potassium Level 4.7 Chloride Level 106 Carbon Dioxide Level 27 Anion Gap 7 L Blood Urea Nitrogen 18 Creatinine 0.48 Glucose Level 82 Calcium Level 8.2 L Phosphorus Level 2.3 L Magnesium Level 1.9 Medications Medications Current Medications Ondansetron HCl (Zofran Inj) 4 mg Q6H PRN IV NAUSEA AND/OR VOMITING Last administered on 12/01/16 09:59; Admin Dose 4 MG; Start 11/11/16 at 16:00 Acetaminophen (Tylenol Tab) 650 mg Q6H PRN PO PAIN LEVEL 1-3 OR FEVER; Start at 16:00 Magnesium Hydroxide (Milk Of Mag) 30 ml DAILY PRN PO CONSTIPATION; Start at 16:00 Sodium Biphosphate/ Sodium Phosphate (Fleet Enema) 133 ml DAILY PRN [place] CONSTIPATION; Start 11/11/16 at 16:00 Hydralazine HCl (Apresoline) 10 mg Q6H PRN IV ELEVATED BLOOD PRESSURE; Start at 16:00 Nitroglycerin (Nitroglycerin (Sl Tab) 0.4 Mg) 1 tab Q5M PRN SL ANGINA Last administered on 11/11/16 23:25; Admin Dose 1 TAB; Start 11/11/16 at 16:00 Efavirenz (Sustiva) 600 mg DAILY PO Last administered on 12/04/16 09:04; Admin Dose 600 MG; Start 11/12/16 at 09:00 Emtricitabine/ Tenofovir (Truvada) 1 tab DAILY PO Last administered on 09:04; Admin Dose 1 TAB; Start 11/12/16 at 09:00 Sucralfate (Carafate) 1 gm QID PO Last administered on 12/04/16 17:39; Admin Dose 1 GM; Start 11/11/16 at 17:00 Valganciclovir (Valcyte) 450 mg Q12 PO Last administered on 12/04/16 09:05; Admin Dose 450 MG; Start 11/11/16 at 21:00 Collagenase (Santyl) 1 applic DAILY TOP Last administered on 12/04/16 09:07; Admin Dose 1 APPLIC; Start 11/12/16 at 13:00 Collagenase (Santyl) 1 applic PRN PRN TOP WOUND CARE; Start 11/12/16 at 12:00 Mesalamine (Delzicol Dr) 800 mg QID PO Last administered on 12/04/16 17:39; Admin Dose 800 MG; Start 11/12/16 at 21:00 Vancomycin HCl (Vancomycin Oral Syringe) 250 mg Q6 PO Last administered on 12/04 17:40; Admin Dose 250 MG; Start 11/12/16 at 19:30 Fluconazole (Diflucan) 100 mg DAILY PO Last administered on 12/04/16 09:04; Admin Dose 100 MG; Start 11/13/16 at 09:00 Lactobacillus Acidophilus 1 each 1 each BID PO Last administered on 12/04/16 09:05; Admin Dose 1 EACH; Start 11/13/16 at 21:00 Cefepime HCl (Maxipime 1gm/50 ml (Pmx)) 50 ml @ 100 mls/hr Q12 IVPB Last administered on 12/04/16 09:11; Admin Dose 100 MLS/HR; Start 11/26/16 at 11:30 Pantoprazole (Protonix Tab) 40 mg BID@06,18 PO Last administered on 12/04/16 17:39; Admin Dose 40 MG; Start 11/28/16 at 06:00 Metoclopramide HCl (Reglan) 5 mg TID PO Last administered on 12/04/16 12:21; Admin Dose 5 MG; Start 11/27/16 at 21:00 Levetiracetam (Keppra) 500 mg BID PO Last administered on 12/04/16 09:04; Admin Dose 500 MG; Start 11/27/16 at 21:00 Potassium Chloride (Klor-Con 20) 40 meq BID PO Last administered on 12/04/16 09:05; Admin Dose 40 MEQ; Start 11/27/16 at 21:00 Enoxaparin Sodium (Lovenox) 40 mg DAILY SC Last administered on 12/04/16 09:07 ; Admin Dose 40 MG; Start 11/29/16 at 09:00 Magnesium Oxide (Mag-Ox 400) 400 mg TID PO Last administered on 12/04/16 12:21 ; Admin Dose 400 MG; Start 11/30/16 at 21:00 Metoprolol Tartrate (Lopressor) 12.5 mg DAILY PO Last administered on 09:06; Admin Dose 12.5 MG; Start 12/02/16 at 11:30 AGUILA BURGOS NP Dec 04, 2016 20:40
[2016-12-05] VITALS (12 sets, daily range): BP systolic 109–123; BP diastolic 72–85; PULSE 89–116; RESP 16–18
[2016-12-05] MEDS: VANCOMYCIN HCL 250 MG/5ML POSYG PO SCH ×4 (00:21→17:11)
[2016-12-05] MEDS: PANTOPRAZOLE (EC) 40 MG TAB PO SCH ×2 (06:11→17:10)
[2016-12-05 07:38] LABS: ADD SCAN DIFF NO
[2016-12-05 07:48] LABS: ABNORMAL IP MESSAGE 1; HEMATOCRIT 25.7 % (37.0-47.0); MEAN CORPUSCULAR HEMOGLOBIN 28.1 pg (29.0-33.0); MEAN CORPUSCULAR HGB CONC 31.1 g/dl (32.0-37.0); MEAN CORPUSCULAR VOLUME 90.2 fl (82.0-101.0); MEAN PLATELET VOLUME 9.1 fl (7.4-10.4); PLATELET COUNT 265 10^3/UL (140-415); RED BLOOD COUNT 2.85 10^6/ul (4.20-5.40); RED CELL DISTRIBUTION WIDTH 16.8 % (11.5-14.5); WHITE BLOOD COUNT 4.3 10^3/ul (4.8-10.8)
[2016-12-05 08:16] LABS: MAGNESIUM 1.6 mg/dl (1.7-2.5); PHOSPHORUS 3.4 mg/dl (2.5-4.9)
[2016-12-05 08:18] LABS: CALCIUM 8.5 mg/dl (8.4-10.2); CREATININE 0.47 mg/dl (0.44-1.00); POTASSIUM 4.7 mmol/L (3.5-5.1)
[2016-12-05 08:31] LABS: LYMPHOCYTES # 0.9 10^3/ul (0.8-2.9); MONOCYTE # 0.2 10^3/ul (0.3-0.9); NEUTROPHIL # 3.2 10^3/ul (1.6-7.5)
[2016-12-05] MEDS: FLUCONAZOLE 100 MG TAB PO SCH (09:28)
[2016-12-05] MEDS: MESALAMINE (EC) 400 MG CAP PO SCH ×4 (09:28→22:30)
[2016-12-05] MEDS: SUCRALFATE 1 GM TAB PO SCH ×4 (09:28→22:31)
[2016-12-05] MEDS: L ACIDOPHIL/B LACTIS/B LONGUM CAPSULE PO SCH ×2 (09:29→22:31)
[2016-12-05] MEDS: LEVETIRACETAM 500 MG TAB PO SCH ×2 (09:29→22:31)
[2016-12-05] MEDS: METOPROLOL 25 MG TAB PO SCH (09:30)
[2016-12-05] MEDS: POTASSIUM CHLORIDE (SR) 20 MEQ TAB PO SCH ×2 (09:30→22:31)
[2016-12-05] MEDS: METOCLOPRAMIDE 5 MG TAB PO SCH ×3 (09:31→22:31)
[2016-12-05] MEDS: EFAVIRENZ 600 MG TAB PO SCH (09:31)
[2016-12-05] MEDS: MAGNESIUM OXIDE 400 MG TAB PO SCH ×3 (09:31→22:31)
[2016-12-05] MEDS: VALGANCICLOVIR 450 MG TAB PO SCH ×2 (09:32→22:30)
[2016-12-05] MEDS: EMTRICITABINE/TENOFOVIR TAB PO SCH (09:32)
[2016-12-05] MEDS: ENOXAPARIN 40 MG/0.4 ML SYG SC SCH (09:40)
[2016-12-05] MEDS: COLLAGENASE 30 GM TUBE TOP SCH (09:41)
--- NOTE | 2016-12-05 09:53 | PN ---
Date/Time of Note Date/Time of Note DATE: 12/05/16 TIME: 09:51 Assessment/Plan VTE Prophylaxis VTE Prophylaxis Intervention: LMWH Lines/Catheters IV Catheter Type (from [facility]): PICC Line Central line still needed: Yes Urinary Cath still in place: Yes Reason Cath still needed: other (indicate) Assessment/Plan Chief Complaint/Hosp Course 1. Lower gastrointestinal bleeding. Status post upper and lower endoscopy on 11/13/2016 that showed severe ulcerative esophagitis and a universal ulcerative colitis. Continue management as per Gastroenterology. Continue Mesalamine and Protonix. 2. Severe anemia secondary to #1, status post PRBC and platelet transfusion. Continue to monitor H&H closely. Transfuse as needed. 3. Human immunodeficiency virus/acquired immunodeficiency syndrome. CD4 count less than 35. CD4 count 157. Continue HAART. 4. Deconditioning. Physical therapy. 5. Multiple chronic wounds that are infected. Status post antimicrobials as per Infectious Disease. 6. History of polysubstance abuse. 7. History of depression and post-traumatic stress disorder. Continue mood stabilizers. 8. Urinary tract infection with E. coli and Proteus mirabilis. Status post antibiotics as per Infectious Disease. 9. Severe protein calorie malnutrition. Continue protein supplements. 10. Right lower quadrant abdominal orifice draining clear fluid. Resolved. 11. Seizure disorder (single witnessed episode). Status post evaluation by neurology. Continue anticonvulsants. 12. Possible aspiration pneumonia. Status post antibiotics as per infectious diseases. Aspiration precautions. 13. Sinus tachycardia. Etiology could be multifactorial. The patient was started on low-dose data blockers. 13. Fluid, electrolytes and nutrition. Regular diet. 14. Deep vein thrombosis prophylaxis. Subcutaneous Lovenox. 15. Gastrointestinal prophylaxis. Proton pump inhibitors. 16. Plan. Continue current management. Replete magnesium. Await placement. Case discussed with Dr. Swanson. Problems: Subjective 24 Hr Interval Summary Free Text/Dictation Remains tachycardic. Exam/Review of Systems Vital Signs Vitals Vital Signs Date Time Temp Pulse Resp B/P Pulse Ox O2 Delivery O2 Flow Rate FiO2 12/05/16 08:03 94 12/05/16 08:00 98.0 18 117/77 98 Intake and Output 12/04/16 12/04/16 12/05/16 15:00 23:00 07:00 Intake Total 50 ml 855 ml 200 ml Output Total 500 ml 2100 ml Balance 50 ml 355 ml -1900 ml Exam GENERAL: This is a 41-year-old female who appears malnourished, lying in bed in no apparent distress. HEENT: Head normocephalic and atraumatic. Eyes: Anicteric sclerae. Conjunctivae clear. ENT: Nasal septum is midline. Oral mucosa is dry. NECK: Supple. No JVD noticed. RESPIRATORY: Bilaterally clear to auscultation. No adventitious breath sounds heard. No use of accessory muscles of respiration. CARDIAC: Regular rate and rhythm. No murmurs heard. ABDOMEN: Soft, nontender and nondistended. Bowel sounds positive in all 4 quadrants. Right lower quadrant drain in place. GENITOURINARY: Deferred. EXTREMITIES: No cyanosis, no clubbing. Bilateral lower extremity edema. Peripheral pulses palpable. NEUROLOGIC: The patient is awake, alert and oriented. Cranial nerves are grossly intact. Results Result Diagram: 12/05/16 0701 12/05/16 0658 Results 24 hrs Laboratory Tests Test 12/05/16 06:58 12/05/16 07:01 Sodium Level 135 Potassium Level 4.7 Chloride Level 107 Carbon Dioxide Level 26 Anion Gap 7 L Blood Urea Nitrogen 17 Creatinine 0.47 Glucose Level 88 Calcium Level 8.5 Phosphorus Level 3.4 Magnesium Level 1.6 L White Blood Count 4.3 #L Red Blood Count 2.85 L Hemoglobin 8.0 L Hematocrit 25.7 L Mean Corpuscular Volume 90.2 Mean Corpuscular Hemoglobin 28.1 L Mean Corpuscular Hemoglobin Concent 31.1 L Red Cell Distribution Width 16.8 H Platelet Count 265 Mean Platelet Volume 9.1 Neutrophils % 75.0 Lymphocytes % 20.0 Monocytes % 4.0 Eosinophils % 1.0 Neutrophils # 3.2 Lymphocytes # 0.9 Monocytes # 0.2 L Eosinophils # 0.0 Medications Medications Current Medications Ondansetron HCl (Zofran Inj) 4 mg Q6H PRN IV NAUSEA AND/OR VOMITING Last administered on 12/01/16 09:59; Admin Dose 4 MG; Start 11/11/16 at 16:00 Acetaminophen (Tylenol Tab) 650 mg Q6H PRN PO PAIN LEVEL 1-3 OR FEVER; Start at 16:00 Magnesium Hydroxide (Milk Of Mag) 30 ml DAILY PRN PO CONSTIPATION; Start at 16:00 Sodium Biphosphate/ Sodium Phosphate (Fleet Enema) 133 ml DAILY PRN [place] CONSTIPATION; Start 11/11/16 at 16:00 Hydralazine HCl (Apresoline) 10 mg Q6H PRN IV ELEVATED BLOOD PRESSURE; Start at 16:00 Nitroglycerin (Nitroglycerin (Sl Tab) 0.4 Mg) 1 tab Q5M PRN SL ANGINA Last administered on 11/11/16 23:25; Admin Dose 1 TAB; Start 11/11/16 at 16:00 Efavirenz (Sustiva) 600 mg DAILY PO Last administered on 12/05/16 09:31; Admin Dose 600 MG; Start 11/12/16 at 09:00 Emtricitabine/ Tenofovir (Truvada) 1 tab DAILY PO Last administered on 09:32; Admin Dose 1 TAB; Start 11/12/16 at 09:00 Sucralfate (Carafate) 1 gm QID PO Last administered on 12/05/16 09:28; Admin Dose 1 GM; Start 11/11/16 at 17:00 Valganciclovir (Valcyte) 450 mg Q12 PO Last administered on 12/05/16 09:32; Admin Dose 450 MG; Start 11/11/16 at 21:00 Collagenase (Santyl) 1 applic DAILY TOP Last administered on 12/05/16 09:41; Admin Dose 1 APPLIC; Start 11/12/16 at 13:00 Collagenase (Santyl) 1 applic PRN PRN TOP WOUND CARE; Start 11/12/16 at 12:00 Mesalamine (Delzicol Dr) 800 mg QID PO Last administered on 12/05/16 09:28; Admin Dose 800 MG; Start 11/12/16 at 21:00 Vancomycin HCl (Vancomycin Oral Syringe) 250 mg Q6 PO Last administered on 12/05 06:11; Admin Dose 250 MG; Start 11/12/16 at 19:30 Fluconazole (Diflucan) 100 mg DAILY PO Last administered on 12/05/16 09:28; Admin Dose 100 MG; Start 11/13/16 at 09:00 Lactobacillus Acidophilus (Florajen3 Capsule) 1 each BID PO Last administered on 12/05/16 09:29; Admin Dose 1 EACH; Start 11/13/16 at 21:00 Pantoprazole (Protonix Tab) 40 mg BID@,18 PO Last administered on 12/05/16 06:11; Admin Dose 40 MG; Start 11/28/16 at 06:00 Metoclopramide HCl (Reglan) 5 mg TID PO Last administered on 12/05/16 09:31; Admin Dose 5 MG; Start 11/27/16 at 21:00 Levetiracetam (Keppra) 500 mg BID PO Last administered on 12/05/16 09:29; Admin Dose 500 MG; Start 11/27/16 at 21:00 Potassium Chloride (Klor-Con 20) 40 meq BID PO Last administered on 12/05/16 09:30; Admin Dose 40 MEQ; Start 11/27/16 at 21:00 Enoxaparin Sodium (Lovenox) 40 mg DAILY SC Last administered on 12/05/16 09:40 ; Admin Dose 40 MG; Start 11/29/16 at 09:00 Magnesium Oxide (Mag-Ox 400) 400 mg TID PO Last administered on 12/05/16 09:31 ; Admin Dose 400 MG; Start 11/30/16 at 21:00 Metoprolol Tartrate (Lopressor) 12.5 mg DAILY PO Last administered on 09:30; Admin Dose 12.5 MG; Start 12/02/16 at 11:30 TK PERALES NP Dec 05, 2016 09:53
[2016-12-05] MEDS ORDERED: MAGNESIUM SULFATE 2 GM/50 ML 50 ML IVPB ONE (10:00)
--- NOTE | 2016-12-05 18:51 | CONS ---
Date/Time of Note Date/Time of Note DATE: 12/05/16 TIME: 18:50 Assessment/Plan Assessment/Plan Additional Assessment/Plan 1. Severe hyperchloremia with a chloride of 117, unclear etiology. 2. Acute encephalopathy. 3. Status post hemorrhagic shock. 4. Human immunodeficiency virus positive with CD4 count of 157. 5. Positive colitis. 6. Multiple decubitus ulcers. 7. Status post urinary tract infection and sepsis on admission. 8. Depression. 9. Hypomagnesemia PLAN: on PO KCL replacement mag 1.6- replaced today Bp stable afebril will follow up Consultation Date/Type/Reason Admit Date/Time November 11, 2016 at 15:19 Type of Consultation: ID Referring Provider: JESUS RUIZ Exam/Review of Systems Vital Signs Vitals Vital Signs Date Time Temp Pulse Resp B/P Pulse Ox O2 Delivery O2 Flow Rate FiO2 12/05/16 16:24 98.0 73 18 109/76 98 Intake and Output 12/04/16 12/04/16 12/05/16 15:00 23:00 07:00 Intake Total 50 ml 855 ml 200 ml Output Total 500 ml 2100 ml Balance 50 ml 355 ml -1900 ml Exam GENERAL: This is a chronically ill-appearing, cachectic, wasted, middle-aged white woman who is lying comfortably in bed. HEENT: Head atraumatic, normocephalic. Sclerae anicteric. Buccal mucosa dry. NECK: Supple. CHEST: Rise symmetrical. Breath sounds diminished. HEART: S1, S2. ABDOMEN: Soft. Bowel tones present. EXTREMITIES: Without cyanosis. Bilateral edema. Results Result Diagram: 12/05/16 0701 12/05/16 0658 Results 24 hrs Laboratory Tests Test 12/05/16 06:58 12/05/16 07:01 Sodium Level 135 Potassium Level 4.7 Chloride Level 107 Carbon Dioxide Level 26 Anion Gap 7 L Blood Urea Nitrogen 17 Creatinine 0.47 Glucose Level 88 Calcium Level 8.5 Phosphorus Level 3.4 Magnesium Level 1.6 L White Blood Count 4.3 #L Red Blood Count 2.85 L Hemoglobin 8.0 L Hematocrit 25.7 L Mean Corpuscular Volume 90.2 Mean Corpuscular Hemoglobin 28.1 L Mean Corpuscular Hemoglobin Concent 31.1 L Red Cell Distribution Width 16.8 H Platelet Count 265 Mean Platelet Volume 9.1 Neutrophils % 75.0 Lymphocytes % 20.0 Monocytes % 4.0 Eosinophils % 1.0 Neutrophils # 3.2 Lymphocytes # 0.9 Monocytes # 0.2 L Eosinophils # 0.0 Medications Medications Current Medications Ondansetron HCl (Zofran Inj) 4 mg Q6H PRN IV NAUSEA AND/OR VOMITING Last administered on 12/01/16 09:59; Admin Dose 4 MG; Start 11/11/16 at 16:00 Acetaminophen (Tylenol Tab) 650 mg Q6H PRN PO PAIN LEVEL 1-3 OR FEVER; Start at 16:00 Magnesium Hydroxide (Milk Of Mag) 30 ml DAILY PRN PO CONSTIPATION; Start at 16:00 Sodium Biphosphate/ Sodium Phosphate (Fleet Enema) 133 ml DAILY PRN [place] CONSTIPATION; Start 11/11/16 at 16:00 Hydralazine HCl (Apresoline) 10 mg Q6H PRN IV ELEVATED BLOOD PRESSURE; Start at 16:00 Nitroglycerin (Nitroglycerin (Sl Tab) 0.4 Mg) 1 tab Q5M PRN SL ANGINA Last administered on 11/11/16 23:25; Admin Dose 1 TAB; Start 11/11/16 at 16:00 Efavirenz (Sustiva) 600 mg DAILY PO Last administered on 12/05/16 09:31; Admin Dose 600 MG; Start 11/12/16 at 09:00 Emtricitabine/ Tenofovir (Truvada) 1 tab DAILY PO Last administered on 09:32; Admin Dose 1 TAB; Start 11/12/16 at 09:00 Sucralfate (Carafate) 1 gm QID PO Last administered on 12/05/16 17:10; Admin Dose 1 GM; Start 11/11/16 at 17:00 Valganciclovir (Valcyte) 450 mg Q12 PO Last administered on 12/05/16 09:32; Admin Dose 450 MG; Start 11/11/16 at 21:00 Collagenase (Santyl) 1 applic DAILY TOP Last administered on 12/05/16 09:41; Admin Dose 1 APPLIC; Start 11/12/16 at 13:00 Collagenase (Santyl) 1 applic PRN PRN TOP WOUND CARE; Start 11/12/16 at 12:00 Mesalamine (Delzicol Dr) 800 mg QID PO Last administered on 12/05/16 17:10; Admin Dose 800 MG; Start 11/12/16 at 21:00 Vancomycin HCl (Vancomycin Oral Syringe) 250 mg Q6 PO Last administered on 12/05 17:11; Admin Dose 250 MG; Start 11/12/16 at 19:30 Fluconazole (Diflucan) 100 mg DAILY PO Last administered on 12/05/16 09:28; Admin Dose 100 MG; Start 11/13/16 at 09:00 Lactobacillus Acidophilus (Florajen3 Capsule) 1 each BID PO Last administered on 12/05/16 09:29; Admin Dose 1 EACH; Start 11/13/16 at 21:00 Pantoprazole (Protonix Tab) 40 mg BID@,18 PO Last administered on 12/05/16 17:10; Admin Dose 40 MG; Start 11/28/16 at 06:00 Metoclopramide HCl (Reglan) 5 mg TID PO Last administered on 12/05/16 13:16; Admin Dose 5 MG; Start 11/27/16 at 21:00 Levetiracetam (Keppra) 500 mg BID PO Last administered on 12/05/16 09:29; Admin Dose 500 MG; Start 11/27/16 at 21:00 Potassium Chloride (Klor-Con 20) 40 meq BID PO Last administered on 12/05/16 09:30; Admin Dose 40 MEQ; Start 11/27/16 at 21:00 Enoxaparin Sodium (Lovenox) 40 mg DAILY SC Last administered on 12/05/16 09:40 ; Admin Dose 40 MG; Start 11/29/16 at 09:00 Magnesium Oxide (Mag-Ox 400) 400 mg TID PO Last administered on 12/05/16 13:16 ; Admin Dose 400 MG; Start 11/30/16 at 21:00 Metoprolol Tartrate (Lopressor) 12.5 mg DAILY PO Last administered on 09:30; Admin Dose 12.5 MG; Start 12/02/16 at 11:30 ASHISH MENDOZA MD Dec 05, 2016 18:51
--- NOTE | 2016-12-05 21:29 | CONS ---
Date/Time of Note Date/Time of Note DATE: 12/05/16 TIME: 21:27 Assessment/Plan Assessment/Plan Chief Complaint/Hosp Course SUBJECTIVE: No events overnight. No fevers. Alert, looks comfortable MICROBIOLOGY: Repeat blood and urine cultures negative. ANTIMICROBIALS: 1. Oral vancomycin. 2. Fluconazole. 3. Truvada. 4. Sustiva. 5. Valcyte. PHYSICAL EXAMINATION: GENERAL: This is a chronically ill-appearing, cachectic, wasted, middle-aged white woman who is lying comfortably in bed. HEENT: Head atraumatic, normocephalic. Sclerae anicteric. Buccal mucosa dry. NECK: Supple. CHEST: Rise symmetrical. Breath sounds diminished. HEART: S1, S2. ABDOMEN: Soft. Bowel tones present. EXTREMITIES: Without cyanosis. Bilateral edema. SKIN: Positive for anasarca. ASSESSMENT: 1. Status post severe sepsis with shock. 2. Acute encephalopathy, possibly post-ictal==> improving. 3. Questionable mastoiditis==> treated. 4. Healthcare-acquired pneumonia, possibly aspiration==> treated. 5. Human immunodeficiency virus with CD4 count of 241. 6. Multiple chronic wounds. 7. History of Inocencia esophagitis. PLAN: The patient remains stable. Continue abx/MAYERS, PT, optimize nutrition Dw staff Problems: Consultation Date/Type/Reason Admit Date/Time November 11, 2016 at 15:19 Initial Consult Date 11/11/16 Type of Consultation: ID Referring Provider: JESUS RUIZ Exam/Review of Systems Vital Signs Vitals Vital Signs Date Time Temp Pulse Resp B/P Pulse Ox O2 Delivery O2 Flow Rate FiO2 12/05/16 20:53 116 12/05/16 19:58 98.7 16 112/80 97 Intake and Output 12/04/16 12/04/16 12/05/16 15:00 23:00 07:00 Intake Total 50 ml 855 ml 200 ml Output Total 500 ml 2100 ml Balance 50 ml 355 ml -1900 ml Results Result Diagram: 12/05/16 0701 12/05/16 0658 Results 24 hrs Laboratory Tests Test 12/05/16 06:58 12/05/16 07:01 Sodium Level 135 Potassium Level 4.7 Chloride Level 107 Carbon Dioxide Level 26 Anion Gap 7 L Blood Urea Nitrogen 17 Creatinine 0.47 Glucose Level 88 Calcium Level 8.5 Phosphorus Level 3.4 Magnesium Level 1.6 L White Blood Count 4.3 #L Red Blood Count 2.85 L Hemoglobin 8.0 L Hematocrit 25.7 L Mean Corpuscular Volume 90.2 Mean Corpuscular Hemoglobin 28.1 L Mean Corpuscular Hemoglobin Concent 31.1 L Red Cell Distribution Width 16.8 H Platelet Count 265 Mean Platelet Volume 9.1 Neutrophils % 75.0 Lymphocytes % 20.0 Monocytes % 4.0 Eosinophils % 1.0 Neutrophils # 3.2 Lymphocytes # 0.9 Monocytes # 0.2 L Eosinophils # 0.0 Medications Medications Current Medications Ondansetron HCl (Zofran Inj) 4 mg Q6H PRN IV NAUSEA AND/OR VOMITING Last administered on 12/01/16 09:59; Admin Dose 4 MG; Start 11/11/16 at 16:00 Acetaminophen (Tylenol Tab) 650 mg Q6H PRN PO PAIN LEVEL 1-3 OR FEVER; Start at 16:00 Magnesium Hydroxide (Milk Of Mag) 30 ml DAILY PRN PO CONSTIPATION; Start at 16:00 Sodium Biphosphate/ Sodium Phosphate (Fleet Enema) 133 ml DAILY PRN [place] CONSTIPATION; Start 11/11/16 at 16:00 Hydralazine HCl (Apresoline) 10 mg Q6H PRN IV ELEVATED BLOOD PRESSURE; Start at 16:00 Nitroglycerin (Nitroglycerin (Sl Tab) 0.4 Mg) 1 tab Q5M PRN SL ANGINA Last administered on 11/11/16 23:25; Admin Dose 1 TAB; Start 11/11/16 at 16:00 Efavirenz (Sustiva) 600 mg DAILY PO Last administered on 12/05/16 09:31; Admin Dose 600 MG; Start 11/12/16 at 09:00 Emtricitabine/ Tenofovir (Truvada) 1 tab DAILY PO Last administered on 09:32; Admin Dose 1 TAB; Start 11/12/16 at 09:00 Sucralfate (Carafate) 1 gm QID PO Last administered on 12/05/16 17:10; Admin Dose 1 GM; Start 11/11/16 at 17:00 Valganciclovir (Valcyte) 450 mg Q12 PO Last administered on 12/05/16 09:32; Admin Dose 450 MG; Start 11/11/16 at 21:00 Collagenase (Santyl) 1 applic DAILY TOP Last administered on 12/05/16 09:41; Admin Dose 1 APPLIC; Start 11/12/16 at 13:00 Collagenase (Santyl) 1 applic PRN PRN TOP WOUND CARE; Start 11/12/16 at 12:00 Mesalamine (Delzicol Dr) 800 mg QID PO Last administered on 12/05/16 17:10; Admin Dose 800 MG; Start 11/12/16 at 21:00 Vancomycin HCl (Vancomycin Oral Syringe) 250 mg Q6 PO Last administered on 12/05 17:11; Admin Dose 250 MG; Start 11/12/16 at 19:30 Fluconazole (Diflucan) 100 mg DAILY PO Last administered on 12/05/16 09:28; Admin Dose 100 MG; Start 11/13/16 at 09:00 Lactobacillus Acidophilus (Florajen3 Capsule) 1 each BID PO Last administered on 12/05/16 09:29; Admin Dose 1 EACH; Start 11/13/16 at 21:00 Pantoprazole (Protonix Tab) 40 mg BID@,18 PO Last administered on 12/05/16 17:10; Admin Dose 40 MG; Start 11/28/16 at 06:00 Metoclopramide HCl (Reglan) 5 mg TID PO Last administered on 12/05/16 13:16; Admin Dose 5 MG; Start 11/27/16 at 21:00 Levetiracetam (Keppra) 500 mg BID PO Last administered on 12/05/16 09:29; Admin Dose 500 MG; Start 11/27/16 at 21:00 Potassium Chloride (Klor-Con 20) 40 meq BID PO Last administered on 12/05/16 09:30; Admin Dose 40 MEQ; Start 11/27/16 at 21:00 Enoxaparin Sodium (Lovenox) 40 mg DAILY SC Last administered on 12/05/16 09:40 ; Admin Dose 40 MG; Start 11/29/16 at 09:00 Magnesium Oxide (Mag-Ox 400) 400 mg TID PO Last administered on 12/05/16 13:16 ; Admin Dose 400 MG; Start 11/30/16 at 21:00 Metoprolol Tartrate (Lopressor) 12.5 mg DAILY PO Last administered on t 09:30; Admin Dose 12.5 MG; Start 12/02/16 at 11:30 AGUILA BURGOS NP Dec 05, 2016 21:29
[2016-12-06] VITALS (11 sets, daily range): BP systolic 100–135; BP diastolic 66–95; PULSE 96–114; RESP 16–20
[2016-12-06] MEDS: VANCOMYCIN HCL 250 MG/5ML POSYG PO SCH ×4 (00:19→17:41)
[2016-12-06] MEDS: PANTOPRAZOLE (EC) 40 MG TAB PO SCH ×2 (06:13→17:41)
[2016-12-06] MEDS: EMTRICITABINE/TENOFOVIR TAB PO SCH (09:49)
[2016-12-06] MEDS: METOPROLOL 25 MG TAB PO SCH ×2 (09:49→20:52)
[2016-12-06] MEDS: VALGANCICLOVIR 450 MG TAB PO SCH ×2 (09:49→20:50)
[2016-12-06] MEDS: POTASSIUM CHLORIDE (SR) 20 MEQ TAB PO SCH ×2 (09:49→20:50)
[2016-12-06] MEDS: EFAVIRENZ 600 MG TAB PO SCH (09:49)
[2016-12-06] MEDS: SUCRALFATE 1 GM TAB PO SCH ×4 (09:49→20:50)
[2016-12-06] MEDS: LEVETIRACETAM 500 MG TAB PO SCH ×2 (09:50→20:50)
[2016-12-06] MEDS: MAGNESIUM OXIDE 400 MG TAB PO SCH ×3 (09:50→20:50)
[2016-12-06] MEDS: COLLAGENASE 30 GM TUBE TOP SCH (09:50)
[2016-12-06] MEDS: MESALAMINE (EC) 400 MG CAP PO SCH ×4 (09:50→20:52)
[2016-12-06] MEDS: METOCLOPRAMIDE 5 MG TAB PO SCH ×3 (09:50→20:50)
[2016-12-06] MEDS: L ACIDOPHIL/B LACTIS/B LONGUM CAPSULE PO SCH ×2 (09:50→22:10)
[2016-12-06] MEDS: FLUCONAZOLE 100 MG TAB PO SCH (09:50)
[2016-12-06] MEDS: ENOXAPARIN 40 MG/0.4 ML SYG SC SCH (10:02)
--- NOTE | 2016-12-06 12:54 | CONS ---
Date/Time of Note Date/Time of Note DATE: 12/06/16 TIME: 12:54 Assessment/Plan Assessment/Plan Chief Complaint/Hosp Course ID PROGRESS NOTE TOTAL ABX DAY # 1. s/p Rocephin = OFF 2. Fluconazole. 3. Oral vancomycin. 4. Valganciclovir 5. HIV ARV MEDS: Truvada + Sustiva. 24H INTERVAL SUMMARY * A/Alert & responsive, no complaints, psychomotor retardation * No fevers, profound debility,weakness persisting, VSS * 1. MICROBIOLOGY: Wound culture E. coli ESBL, Enterococcus species. Urine culture grew E. coli and Proteus mirabilis. PHYSICAL EXAMINATION: GENERAL: VSS,NAD, appears weak, frail, no fevers HEENT: Lower lip lesion NECK: Moves neck, appears supple, CHEST: Equal chest appears cachetic, without dyspnea on observation, diminished bi-basilar HEART: Pulse RRR -- tachy ABDOMEN: Soft, benign EXTREMITIES: Warm, moves left leg, bi-pedal edema SKIN: Warm, dry, tattoos, wounds see photos ID ASSESSMENT: 41 yo F admitted with HIV(+) status on ARV meds admit with: 1. Acute anemia on admission secondary to gastrointestinal bleed with EGD revealed severe ulcerative esophagitis/Inocencia 2. s/p Polymicrobial urinary tract infection. 3. Multiple chronic wounds-> s/p IV ABX * Wound culture E. coli ESBL, Enterococcus species. Urine culture grew E. coli and Proteus mirabilis. 4. Colitis as per CT of the abdomen. 5. Severe deconditioning. (-)MRSA NARES INVASIVES: * PICC LUEXT ABX ALLERGIES: None to ABX CURRENT ABX: 1. S/P IV Rocephin.= OFF CEFTRIAXONE 2. Fluconazole. 3. Oral vancomycin. 4. Valganciclovir 5. HIV ARV MEDS: Truvada + Sustiva. ID RECOMMENDATIONS Continue current ABX and supportive care...ID team will continue to follow . Problems: Consultation Date/Type/Reason Admit Date/Time November 11, 2016 at 15:19 Initial Consult Date 11/11/16 Type of Consultation: ID Referring Provider: JESUS RUIZ Exam/Review of Systems Vital Signs Vitals Vital Signs Date Time Temp Pulse Resp B/P Pulse Ox O2 Delivery O2 Flow Rate FiO2 12/06/16 12:07 114 6/17/17 11:24 98.5 18 131/87 100 Intake and Output 12/05/16 12/05/16 12/06/16 15:00 23:00 07:00 Intake Total 800 ml 500 ml Output Total 1000 ml 600 ml Balance -200 ml -100 ml Results Result Diagram: 12/05/16 0701 12/05/16 0658 Medications Medications Current Medications Ondansetron HCl (Zofran Inj) 4 mg Q6H PRN IV NAUSEA AND/OR VOMITING Last administered on 12/01/16 09:59; Admin Dose 4 MG; Start 11/11/16 at 16:00 Acetaminophen (Tylenol Tab) 650 mg Q6H PRN PO PAIN LEVEL 1-3 OR FEVER; Start at 16:00 Magnesium Hydroxide (Milk Of Mag) 30 ml DAILY PRN PO CONSTIPATION; Start at 16:00 Sodium Biphosphate/ Sodium Phosphate (Fleet Enema) 133 ml DAILY PRN [place] CONSTIPATION; Start 11/11/16 at 16:00 Hydralazine HCl (Apresoline) 10 mg Q6H PRN IV ELEVATED BLOOD PRESSURE; Start at 16:00 Nitroglycerin (Nitroglycerin (Sl Tab) 0.4 Mg) 1 tab Q5M PRN SL ANGINA Last administered on 11/11/16 23:25; Admin Dose 1 TAB; Start 11/11/16 at 16:00 Efavirenz (Sustiva) 600 mg DAILY PO Last administered on 12/06/16 09:49; Admin Dose 600 MG; Start 11/12/16 at 09:00 Emtricitabine/ Tenofovir (Truvada) 1 tab DAILY PO Last administered on 09:49; Admin Dose 1 TAB; Start 11/12/16 at 09:00 Sucralfate (Carafate) 1 gm QID PO Last administered on 12/06/16 12:32; Admin Dose 1 GM; Start 11/11/16 at 17:00 Valganciclovir (Valcyte) 450 mg Q12 PO Last administered on 12/06/16 09:49; Admin Dose 450 MG; Start 11/11/16 at 21:00 Collagenase (Santyl) 1 applic DAILY TOP Last administered on 12/06/16 09:50; Admin Dose 1 APPLIC; Start 11/12/16 at 13:00 Collagenase (Santyl) 1 applic PRN PRN TOP WOUND CARE; Start 11/12/16 at 12:00 Mesalamine (Delzicol Dr) 800 mg QID PO Last administered on 12/06/16 12:33; Admin Dose 800 MG; Start 11/12/16 at 21:00 Vancomycin HCl (Vancomycin Oral Syringe) 250 mg Q6 PO Last administered on 12/06 12:32; Admin Dose 250 MG; Start 11/12/16 at 19:30 Fluconazole (Diflucan) 100 mg DAILY PO Last administered on 12/06/16 09:50; Admin Dose 100 MG; Start 11/13/16 at 09:00 Lactobacillus Acidophilus (Florajen3 Capsule) 1 each BID PO Last administered on 12/06/16 09:50; Admin Dose 1 EACH; Start 11/13/16 at 21:00 Pantoprazole (Protonix Tab) 40 mg BID@ PO Last administered on 12/06/16 06:13; Admin Dose 40 MG; Start 11/28/16 at 06:00 Metoclopramide HCl (Reglan) 5 mg TID PO Last administered on 12/06/16 12:33; Admin Dose 5 MG; Start 11/27/16 at 21:00 Levetiracetam (Keppra) 500 mg BID PO Last administered on 12/06/16 09:50; Admin Dose 500 MG; Start 11/27/16 at 21:00 Potassium Chloride (Klor-Con 20) 40 meq BID PO Last administered on 12/06/16 09:49; Admin Dose 40 MEQ; Start 11/27/16 at 21:00 Enoxaparin Sodium (Lovenox) 40 mg DAILY SC Last administered on 12/06/16 10:02 ; Admin Dose 40 MG; Start 11/29/16 at 09:00 Magnesium Oxide (Mag-Ox 400) 400 mg TID PO Last administered on 12/06/16 12:33 ; Admin Dose 400 MG; Start 11/30/16 at 21:00 Metoprolol Tartrate (Lopressor) 12.5 mg DAILY PO Last administered on 09:49; Admin Dose 12.5 MG; Start 6/13/17 at 11:30 NILDA JOSE NP Dec 06, 2016 12:54
--- NOTE | 2016-12-06 13:34 | PN ---
Date/Time of Note Date/Time of Note DATE: 12/06/16 TIME: 13:34 Assessment/Plan VTE Prophylaxis VTE Prophylaxis Intervention: LMWH Lines/Catheters IV Catheter Type (from [facility]): [place] Central line still needed: Yes Urinary Cath still in place: Yes Reason Cath still needed: other (indicate) Assessment/Plan Chief Complaint/Hosp Course 1. Lower gastrointestinal bleeding. Status post upper and lower endoscopy on 11/13/2016 that showed severe ulcerative esophagitis and a universal ulcerative colitis. Continue management as per Gastroenterology. Continue Mesalamine and Protonix. 2. Severe anemia secondary to #1, status post PRBC and platelet transfusion. Continue to monitor H&H closely. Transfuse as needed. 3. Human immunodeficiency virus/acquired immunodeficiency syndrome. CD4 count less than 35. CD4 count 157. Continue HAART. 4. Deconditioning. Physical therapy. 5. Multiple chronic wounds that are infected. Status post antimicrobials as per Infectious Disease. 6. History of polysubstance abuse. 7. History of depression and post-traumatic stress disorder. Continue mood stabilizers. 8. Urinary tract infection with E. coli and Proteus mirabilis. Status post antibiotics as per Infectious Disease. 9. Severe protein calorie malnutrition. Continue protein supplements. 10. Right lower quadrant abdominal orifice draining clear fluid. Resolved. 11. Seizure disorder (single witnessed episode). Status post evaluation by neurology. Continue anticonvulsants. 12. Possible aspiration pneumonia. Status post antibiotics as per infectious diseases. Aspiration precautions. 13. Sinus tachycardia. Etiology could be multifactorial. The patient was started on low-dose data blockers. 13. Fluid, electrolytes and nutrition. Regular diet. 14. Deep vein thrombosis prophylaxis. Subcutaneous Lovenox. 15. Gastrointestinal prophylaxis. Proton pump inhibitors. 16. Plan. Continue current management. Await placement. Case discussed with Dr. Swanson. Problems: Subjective 24 Hr Interval Summary Free Text/Dictation The patient refused a.m. blood draws. The patient PICC line has been clotted. Exam/Review of Systems Vital Signs Vitals Vital Signs Date Time Temp Pulse Resp B/P Pulse Ox O2 Delivery O2 Flow Rate FiO2 12/06/16 12:07 114 12/06/16 11:24 98.5 18 131/87 100 Intake and Output 12/05/16 12/05/16 12/06/16 15:00 23:00 07:00 Intake Total 800 ml 500 ml Output Total 1000 ml 600 ml Balance -200 ml -100 ml Exam GENERAL: This is a 41-year-old female who appears malnourished, lying in bed in no apparent distress. HEENT: Head normocephalic and atraumatic. Eyes: Anicteric sclerae. Conjunctivae clear. ENT: Nasal septum is midline. Oral mucosa is dry. NECK: Supple. No JVD noticed. RESPIRATORY: Bilaterally clear to auscultation. No adventitious breath sounds heard. No use of accessory muscles of respiration. CARDIAC: Regular rate and rhythm. No murmurs heard. ABDOMEN: Soft, nontender and nondistended. Bowel sounds positive in all 4 quadrants. Right lower quadrant drain in place. GENITOURINARY: Deferred. EXTREMITIES: No cyanosis, no clubbing. Bilateral lower extremity edema. Peripheral pulses palpable. NEUROLOGIC: The patient is awake, alert and oriented. Cranial nerves are grossly intact. Results Result Diagram: 12/05/16 0701 12/05/16 0658 Medications Medications Current Medications Ondansetron HCl (Zofran Inj) 4 mg Q6H PRN IV NAUSEA AND/OR VOMITING Last administered on 12/01/16 09:59; Admin Dose 4 MG; Start 11/11/16 at 16:00 Acetaminophen (Tylenol Tab) 650 mg Q6H PRN PO PAIN LEVEL 1-3 OR FEVER; Start at 16:00 Magnesium Hydroxide (Milk Of Mag) 30 ml DAILY PRN PO CONSTIPATION; Start at 16:00 Sodium Biphosphate/ Sodium Phosphate (Fleet Enema) 133 ml DAILY PRN [place] CONSTIPATION; Start 11/11/16 at 16:00 Hydralazine HCl (Apresoline) 10 mg Q6H PRN IV ELEVATED BLOOD PRESSURE; Start at 16:00 Nitroglycerin (Nitroglycerin (Sl Tab) 0.4 Mg) 1 tab Q5M PRN SL ANGINA Last administered on 11/11/16 23:25; Admin Dose 1 TAB; Start 11/11/16 at 16:00 Efavirenz (Sustiva) 600 mg DAILY PO Last administered on 12/06/16 09:49; Admin Dose 600 MG; Start 11/12/16 at 09:00 Emtricitabine/ Tenofovir (Truvada) 1 tab DAILY PO Last administered on 09:49; Admin Dose 1 TAB; Start 11/12/16 at 09:00 Sucralfate (Carafate) 1 gm QID PO Last administered on 12/06/16 12:32; Admin Dose 1 GM; Start 11/11/16 at 17:00 Valganciclovir (Valcyte) 450 mg Q12 PO Last administered on 12/06/16 09:49; Admin Dose 450 MG; Start 11/11/16 at 21:00 Collagenase (Santyl) 1 applic DAILY TOP Last administered on 12/06/16 09:50; Admin Dose 1 APPLIC; Start 11/12/16 at 13:00 Collagenase (Santyl) 1 applic PRN PRN TOP WOUND CARE; Start 11/12/16 at 12:00 Mesalamine (Delzicol Dr) 800 mg QID PO Last administered on 12/06/16 12:33; Admin Dose 800 MG; Start 11/12/16 at 21:00 Vancomycin HCl (Vancomycin Oral Syringe) 250 mg Q6 PO Last administered on 12/06 12:32; Admin Dose 250 MG; Start 11/12/16 at 19:30 Fluconazole (Diflucan) 100 mg DAILY PO Last administered on 12/06/16 09:50; Admin Dose 100 MG; Start 11/13/16 at 09:00 Lactobacillus Acidophilus (Florajen3 Capsule) 1 each BID PO Last administered on 12/06/16 09:50; Admin Dose 1 EACH; Start 11/13/16 at 21:00 Pantoprazole (Protonix Tab) 40 mg BID@,18 PO Last administered on 12/06/16 06:13; Admin Dose 40 MG; Start 11/28/16 at 06:00 Metoclopramide HCl (Reglan) 5 mg TID PO Last administered on 12/06/16 12:33; Admin Dose 5 MG; Start 11/27/16 at 21:00 Levetiracetam (Keppra) 500 mg BID PO Last administered on 12/06/16 09:50; Admin Dose 500 MG; Start 11/27/16 at 21:00 Potassium Chloride (Klor-Con 20) 40 meq BID PO Last administered on 12/06/16 09:49; Admin Dose 40 MEQ; Start 11/27/16 at 21:00 Enoxaparin Sodium (Lovenox) 40 mg DAILY SC Last administered on 12/06/16 10:02 ; Admin Dose 40 MG; Start 11/29/16 at 09:00 Magnesium Oxide (Mag-Ox 400) 400 mg TID PO Last administered on 12/06/16 12:33 ; Admin Dose 400 MG; Start 11/30/16 at 21:00 Metoprolol Tartrate (Lopressor) 12.5 mg DAILY PO Last administered on 09:49; Admin Dose 12.5 MG; Start 12/02/16 at 11:30 TK PERALES NP Dec 06, 2016 13:34
[2016-12-06] MEDS ORDERED: ALTEPLASE (CATHFLO) 2 MG INJ CATHETER PRN (14:00)
[2016-12-06 14:21] LABS: ADD SCAN DIFF NO
[2016-12-06 14:24] LABS: BASOPHILS % 0.6 % (0.0-2.0); EOSINOPHILS % 0.5 % (0.0-7.0); HEMATOCRIT 24.7 % (37.0-47.0); HEMOGLOBIN 7.9 g/dl (12.0-16.0); LYMPHOCYTES % 14.9 % (15.0-51.0); MEAN CORPUSCULAR HEMOGLOBIN 28.6 pg (29.0-33.0); MEAN CORPUSCULAR VOLUME 89.5 fl (82.0-101.0); MEAN PLATELET VOLUME 8.8 fl (7.4-10.4); MONOCYTE # 0.5 10^3/ul (0.3-0.9); MONOCYTES % 7.5 % (0.0-11.0); NEUTROPHIL # 4.7 10^3/ul (1.6-7.5); NEUTROPHILS % 71.6 % (39.0-77.0); PLATELET COUNT 286 10^3/UL (140-415); RED BLOOD COUNT 2.76 10^6/ul (4.20-5.40); RED CELL DISTRIBUTION WIDTH 17.5 % (11.5-14.5); WHITE BLOOD COUNT 6.5 10^3/ul (4.8-10.8)
--- NOTE | 2016-12-06 14:36 | CONS ---
Date/Time of Note Date/Time of Note DATE: 12/06/16 TIME: 14:35 Assessment/Plan Assessment/Plan Additional Assessment/Plan 1. Severe hyperchloremia with a chloride of 117, unclear etiology. 2. Acute encephalopathy. 3. Status post hemorrhagic shock. 4. Human immunodeficiency virus positive with CD4 count of 157. 5. Positive colitis. 6. Multiple decubitus ulcers. 7. Status post urinary tract infection and sepsis on admission. 8. Depression. 9. Hypomagnesemia PLAN: on PO KCL replacement no labs today to review y et Bp stable afebril will follow up Consultation Date/Type/Reason Admit Date/Time November 11, 2016 at 15:19 Type of Consultation: NEPHROLOGY Referring Provider: JESUS RUIZ 24 HR Interval Summary Free Text/Dictation no labs today Exam/Review of Systems Vital Signs Vitals Vital Signs Date Time Temp Pulse Resp B/P Pulse Ox O2 Delivery O2 Flow Rate FiO2 12/06/16 12:07 114 12/06/16 11:24 98.5 18 131/87 100 Intake and Output 12/05/16 12/05/16 12/06/16 15:00 23:00 07:00 Intake Total 800 ml 500 ml Output Total 1000 ml 600 ml Balance -200 ml -100 ml Results Result Diagram: 12/05/16 0701 12/05/16 0658 Medications Medications Current Medications Ondansetron HCl (Zofran Inj) 4 mg Q6H PRN IV NAUSEA AND/OR VOMITING Last administered on 12/01/16 09:59; Admin Dose 4 MG; Start 11/11/16 at 16:00 Acetaminophen (Tylenol Tab) 650 mg Q6H PRN PO PAIN LEVEL 1-3 OR FEVER; Start at 16:00 Magnesium Hydroxide (Milk Of Mag) 30 ml DAILY PRN PO CONSTIPATION; Start at 16:00 Sodium Biphosphate/ Sodium Phosphate (Fleet Enema) 133 ml DAILY PRN [place] CONSTIPATION; Start 11/11/16 at 16:00 Hydralazine HCl (Apresoline) 10 mg Q6H PRN IV ELEVATED BLOOD PRESSURE; Start at 16:00 Nitroglycerin (Nitroglycerin (Sl Tab) 0.4 Mg) 1 tab Q5M PRN SL ANGINA Last administered on 11/11/16 23:25; Admin Dose 1 TAB; Start 11/11/16 at 16:00 Efavirenz (Sustiva) 600 mg DAILY PO Last administered on 12/06/16 09:49; Admin Dose 600 MG; Start 11/12/16 at 09:00 Emtricitabine/ Tenofovir (Truvada) 1 tab DAILY PO Last administered on 09:49; Admin Dose 1 TAB; Start 11/12/16 at 09:00 Sucralfate (Carafate) 1 gm QID PO Last administered on 12/06/16 12:32; Admin Dose 1 GM; Start 11/11/16 at 17:00 Valganciclovir (Valcyte) 450 mg Q12 PO Last administered on 12/06/16 09:49; Admin Dose 450 MG; Start 11/11/16 at 21:00 Collagenase (Santyl) 1 applic DAILY TOP Last administered on 12/06/16 09:50; Admin Dose 1 APPLIC; Start 11/12/16 at 13:00 Collagenase (Santyl) 1 applic PRN PRN TOP WOUND CARE; Start 11/12/16 at 12:00 Mesalamine (Delzicol Dr) 800 mg QID PO Last administered on 12/06/16 12:33; Admin Dose 800 MG; Start 11/12/16 at 21:00 Vancomycin HCl (Vancomycin Oral Syringe) 250 mg Q6 PO Last administered on 12/06 12:32; Admin Dose 250 MG; Start 11/12/16 at 19:30 Fluconazole (Diflucan) 100 mg DAILY PO Last administered on 12/06/16 09:50; Admin Dose 100 MG; Start 11/13/16 at 09:00 Lactobacillus Acidophilus (Florajen3 Capsule) 1 each BID PO Last administered on 12/06/16 09:50; Admin Dose 1 EACH; Start 11/13/16 at 21:00 Pantoprazole (Protonix Tab) 40 mg BID@18 PO Last administered on 12/06/16 06:13; Admin Dose 40 MG; Start 11/28/16 at 06:00 Metoclopramide HCl (Reglan) 5 mg TID PO Last administered on 12/06/16 12:33; Admin Dose 5 MG; Start 11/27/16 at 21:00 Levetiracetam (Keppra) 500 mg BID PO Last administered on 12/06/16 09:50; Admin Dose 500 MG; Start 11/27/16 at 21:00 Potassium Chloride (Klor-Con 20) 40 meq BID PO Last administered on 12/06/16 09:49; Admin Dose 40 MEQ; Start 11/27/16 at 21:00 Enoxaparin Sodium (Lovenox) 40 mg DAILY SC Last administered on 12/06/16 10:02 ; Admin Dose 40 MG; Start 11/29/16 at 09:00 Magnesium Oxide (Mag-Ox 400) 400 mg TID PO Last administered on 12/06/16 12:33 ; Admin Dose 400 MG; Start 11/30/16 at 21:00 Metoprolol Tartrate (Lopressor) 12.5 mg BID PO ; Start 12/06/16 at 21:00 ASHISH MENDOZA MD Dec 06, 2016 14:36
[2016-12-06 14:43] LABS: MAGNESIUM 1.7 mg/dl (1.7-2.5); PHOSPHORUS 3.6 mg/dl (2.5-4.9)
[2016-12-06 14:44] LABS: CREATININE 0.52 mg/dl (0.44-1.00); POTASSIUM 4.2 mmol/L (3.5-5.1)
[2016-12-07] VITALS (13 sets, daily range): BP systolic 103–123; BP diastolic 68–85; PULSE 91–124; RESP 18–20
[2016-12-07] MEDS: VANCOMYCIN HCL 250 MG/5ML POSYG PO SCH ×5 (01:52→23:59)
[2016-12-07] MEDS: PANTOPRAZOLE (EC) 40 MG TAB PO SCH ×2 (06:10→17:28)
[2016-12-07 06:42] LABS: ADD SCAN DIFF NO
[2016-12-07 07:04] LABS: ABNORMAL IP MESSAGE 1; BASOPHILS % 0.7 % (0.0-2.0); HEMATOCRIT 25.7 % (37.0-47.0); HEMOGLOBIN 8.2 g/dl (12.0-16.0); LYMPHOCYTES # 1.2 10^3/ul (0.8-2.9); LYMPHOCYTES % 27.5 % (15.0-51.0); MEAN CORPUSCULAR HEMOGLOBIN 28.8 pg (29.0-33.0); MEAN CORPUSCULAR HGB CONC 31.9 g/dl (32.0-37.0); MEAN CORPUSCULAR VOLUME 90.2 fl (82.0-101.0); MEAN PLATELET VOLUME 8.9 fl (7.4-10.4); MONOCYTE # 0.3 10^3/ul (0.3-0.9); MONOCYTES % 7.9 % (0.0-11.0); NEUTROPHIL # 2.3 10^3/ul (1.6-7.5); NEUTROPHILS % 54.8 % (39.0-77.0); PLATELET COUNT 312 10^3/UL (140-415); RED BLOOD COUNT 2.85 10^6/ul (4.20-5.40); RED CELL DISTRIBUTION WIDTH 17.9 % (11.5-14.5); WHITE BLOOD COUNT 4.2 10^3/ul (4.8-10.8)
[2016-12-07] MEDS: ENOXAPARIN 40 MG/0.4 ML SYG SC SCH (08:49)
[2016-12-07] MEDS: METOPROLOL 25 MG TAB PO SCH ×2 (08:53→21:17)
[2016-12-07] MEDS: EFAVIRENZ 600 MG TAB PO SCH (08:53)
[2016-12-07] MEDS: VALGANCICLOVIR 450 MG TAB PO SCH ×2 (08:53→21:15)
[2016-12-07] MEDS: MESALAMINE (EC) 400 MG CAP PO SCH ×4 (08:53→21:15)
[2016-12-07] MEDS: METOCLOPRAMIDE 5 MG TAB PO SCH ×3 (08:54→21:16)
[2016-12-07] MEDS: MAGNESIUM OXIDE 400 MG TAB PO SCH ×3 (08:54→21:15)
[2016-12-07] MEDS: POTASSIUM CHLORIDE (SR) 20 MEQ TAB PO SCH ×2 (08:54→21:15)
[2016-12-07] MEDS: FLUCONAZOLE 100 MG TAB PO SCH (08:54)
[2016-12-07] MEDS: SUCRALFATE 1 GM TAB PO SCH ×4 (08:54→21:21)
[2016-12-07] MEDS: LEVETIRACETAM 500 MG TAB PO SCH ×2 (08:54→21:15)
[2016-12-07] MEDS: EMTRICITABINE/TENOFOVIR TAB PO SCH (08:54)
[2016-12-07] MEDS: L ACIDOPHIL/B LACTIS/B LONGUM CAPSULE PO SCH ×2 (08:56→21:16)
[2016-12-07] MEDS: COLLAGENASE 30 GM TUBE TOP SCH (09:00)
--- NOTE | 2016-12-07 13:12 | CONS ---
Date/Time of Note Date/Time of Note DATE: 12/07/16 TIME: 13:08 Assessment/Plan Assessment/Plan Chief Complaint/Hosp Course SUBJECTIVE: No events overnight. No fevers. Alert. Looks comfortable. Denies pain. MICROBIOLOGY: Repeat blood and urine cultures negative. ANTIMICROBIALS: 1. Oral vancomycin. 2. Fluconazole. 3. Truvada. 4. Sustiva. 5. Valcyte. PHYSICAL EXAMINATION: GENERAL: This is a chronically ill-appearing, cachectic, wasted, middle-aged white woman who is lying comfortably in bed. HEENT: Head atraumatic, normocephalic. Sclerae anicteric. Buccal mucosa dry. NECK: Supple. CHEST: Rise symmetrical. Breath sounds diminished. HEART: S1, S2. ABDOMEN: Soft. Bowel tones present. EXTREMITIES: Without cyanosis. Bilateral edema. SKIN: Positive for anasarca. ASSESSMENT: 1. Status post severe sepsis with shock. 2. Acute encephalopathy, possibly post-ictal==> improving. 3. Questionable mastoiditis==> treated. 4. Healthcare-acquired pneumonia, possibly aspiration==> treated. 5. Human immunodeficiency virus with CD4 count of 241. 6. Multiple chronic wounds. 7. History of Inocencia esophagitis. PLAN: The patient remains stable. Continue ABX. Continue MAYERS. PT evaluation. Dietary consult to optimize nutrition. Wound care. DW staff. Problems: Consultation Date/Type/Reason Admit Date/Time November 11, 2016 at 15:19 Initial Consult Date 11/26/16 Type of Consultation: ID Referring Provider: JESUS RUIZ Exam/Review of Systems Vital Signs Vitals Vital Signs Date Time Temp Pulse Resp B/P Pulse Ox O2 Delivery O2 Flow Rate FiO2 12/07/16 12:03 117 12/07/16 11:58 98.4 20 114/83 100 Intake and Output 12/06/16 12/06/16 12/07/16 15:00 23:00 07:00 Intake Total 900 ml 400 ml Output Total 550 ml 350 ml Balance 350 ml 50 ml Results Result Diagram: 12/07/16 0545 12/06/16 1400 Results 24 hrs Laboratory Tests Test 12/06/16 14:00 12/07/16 05:45 White Blood Count 6.5 # 4.2 #L Red Blood Count 2.76 L 2.85 L Hemoglobin 7.9 L 8.2 L Hematocrit 24.7 L 25.7 L Mean Corpuscular Volume 89.5 90.2 Mean Corpuscular Hemoglobin 28.6 L 28.8 L Mean Corpuscular Hemoglobin Concent 32.0 31.9 L Red Cell Distribution Width 17.5 H 17.9 H Platelet Count 286 312 Mean Platelet Volume 8.8 8.9 Neutrophils % 71.6 54.8 Lymphocytes % 14.9 L 27.5 Monocytes % 7.5 7.9 Eosinophils % 0.5 1.0 Basophils % 0.6 0.7 Nucleated Red Blood Cells % 0.0 0.0 Neutrophils # 4.7 2.3 Lymphocytes # 1.0 1.2 Monocytes # 0.5 0.3 Eosinophils # 0.0 0.0 Basophils # 0.0 0.0 Nucleated Red Blood Cells # 0.0 0.0 Sodium Level 133 L Potassium Level 4.2 Chloride Level 104 Carbon Dioxide Level 25 Anion Gap 8 Blood Urea Nitrogen 17 Creatinine 0.52 Glucose Level 115 Calcium Level 8.0 L Phosphorus Level 3.6 Magnesium Level 1.7 Medications Medications Current Medications Ondansetron HCl (Zofran Inj) 4 mg Q6H PRN IV NAUSEA AND/OR VOMITING Last administered on 12/01/16 09:59; Admin Dose 4 MG; Start 11/11/16 at 16:00 Acetaminophen (Tylenol Tab) 650 mg Q6H PRN PO PAIN LEVEL 1-3 OR FEVER; Start at 16:00 Magnesium Hydroxide (Milk Of Mag) 30 ml DAILY PRN PO CONSTIPATION; Start at 16:00 Sodium Biphosphate/ Sodium Phosphate (Fleet Enema) 133 ml DAILY PRN [place] CONSTIPATION; Start 11/11/16 at 16:00 Hydralazine HCl (Apresoline) 10 mg Q6H PRN IV ELEVATED BLOOD PRESSURE; Start at 16:00 Nitroglycerin (Nitroglycerin (Sl Tab) 0.4 Mg) 1 tab Q5M PRN SL ANGINA Last administered on 11/11/16 23:25; Admin Dose 1 TAB; Start 11/11/16 at 16:00 Efavirenz (Sustiva) 600 mg DAILY PO Last administered on 12/07/16 08:53; Admin Dose 600 MG; Start 11/12/16 at 09:00 Emtricitabine/ Tenofovir (Truvada) 1 tab DAILY PO Last administered on 08:54; Admin Dose 1 TAB; Start 11/12/16 at 09:00 Sucralfate (Carafate) 1 gm QID PO Last administered on 12/07/16 08:54; Admin Dose 1 GM; Start 11/11/16 at 17:00 Valganciclovir (Valcyte) 450 mg Q12 PO Last administered on 12/07/16 08:53; Admin Dose 450 MG; Start 11/11/16 at 21:00 Collagenase (Santyl) 1 applic DAILY TOP Last administered on 12/06/16 09:50; Admin Dose 1 APPLIC; Start 11/12/16 at 13:00 Collagenase (Santyl) 1 applic PRN PRN TOP WOUND CARE; Start 11/12/16 at 12:00 Mesalamine (Delzicol Dr) 800 mg QID PO Last administered on 12/07/16 08:53; Admin Dose 800 MG; Start 11/12/16 at 21:00 Vancomycin HCl (Vancomycin Oral Syringe) 250 mg Q6 PO Last administered on 12/07 06:10; Admin Dose 250 MG; Start 11/12/16 at 19:30 Fluconazole (Diflucan) 100 mg DAILY PO Last administered on 12/07/16 08:54; Admin Dose 100 MG; Start 11/13/16 at 09:00 Lactobacillus Acidophilus (Florajen3 Capsule) 1 each BID PO Last administered on 12/07/16 08:56; Admin Dose 1 EACH; Start 11/13/16 at 21:00 Pantoprazole (Protonix Tab) 40 mg BID@ PO Last administered on 12/07/16 06:10; Admin Dose 40 MG; Start 11/28/16 at 06:00 Metoclopramide HCl (Reglan) 5 mg TID PO Last administered on 12/07/16 08:54; Admin Dose 5 MG; Start 11/27/16 at 21:00 Levetiracetam (Keppra) 500 mg BID PO Last administered on 12/07/16 08:54; Admin Dose 500 MG; Start 11/27/16 at 21:00 Potassium Chloride (Klor-Con 20) 40 meq BID PO Last administered on 12/07/16 08:54; Admin Dose 40 MEQ; Start 11/27/16 at 21:00 Enoxaparin Sodium (Lovenox) 40 mg DAILY SC Last administered on 12/07/16 08:49 ; Admin Dose 40 MG; Start 11/29/16 at 09:00 Magnesium Oxide (Mag-Ox 400) 400 mg TID PO Last administered on 12/07/16 08:54 ; Admin Dose 400 MG; Start 11/30/16 at 21:00 Metoprolol Tartrate (Lopressor) 12.5 mg BID PO Last administered on 12/07/16 08:53; Admin Dose 12.5 MG; Start 12/06/16 at 21:00 JA KOVACS NP Dec 07, 2016 13:12
--- NOTE | 2016-12-07 13:19 | PN ---
Date/Time of Note Date/Time of Note DATE: 12/07/16 TIME: 13:18 Assessment/Plan VTE Prophylaxis VTE Prophylaxis Intervention: LMWH Lines/Catheters [facility] PICC Line Central line still needed: Yes Urinary Cath still in place: Yes Reason Cath still needed: other (indicate) Assessment/Plan Chief Complaint/Hosp Course 1. Lower gastrointestinal bleeding. Status post upper and lower endoscopy on 11/13/2016 that showed severe ulcerative esophagitis and a universal ulcerative colitis. Continue management as per Gastroenterology. Continue Mesalamine and Protonix. 2. Severe anemia secondary to #1, status post PRBC and platelet transfusion. Continue to monitor H&H closely. Transfuse as needed. 3. Human immunodeficiency virus/acquired immunodeficiency syndrome. CD4 count less than 35. CD4 count 157. Continue HAART. 4. Deconditioning. Physical therapy. 5. Multiple chronic wounds that are infected. Status post antimicrobials as per Infectious Disease. 6. History of polysubstance abuse. 7. History of depression and post-traumatic stress disorder. Continue mood stabilizers. 8. Urinary tract infection with E. coli and Proteus mirabilis. Status post antibiotics as per Infectious Disease. 9. Severe protein calorie malnutrition. Continue protein supplements. 10. Right lower quadrant abdominal orifice draining clear fluid. Resolved. 11. Seizure disorder (single witnessed episode). Status post evaluation by neurology. Continue anticonvulsants. 12. Possible aspiration pneumonia. Status post antibiotics as per infectious diseases. Aspiration precautions. 13. Sinus tachycardia. Etiology could be multifactorial. The patient was started on low-dose data blockers. 13. Fluid, electrolytes and nutrition. Regular diet. 14. Deep vein thrombosis prophylaxis. Subcutaneous Lovenox. 15. Gastrointestinal prophylaxis. Proton pump inhibitors. 16. Plan. Continue current management. Await placement. Case discussed with Dr. Swanson. Problems: Subjective 24 Hr Interval Summary Free Text/Dictation Patient remains afebrile. Exam/Review of Systems Vital Signs Vitals Vital Signs Date Time Temp Pulse Resp B/P Pulse Ox O2 Delivery O2 Flow Rate FiO2 12/07/16 12:03 117 12/07/16 11:58 98.4 20 114/83 100 Intake and Output 12/06/16 12/06/16 12/07/16 15:00 23:00 07:00 Intake Total 900 ml 400 ml Output Total 550 ml 350 ml Balance 350 ml 50 ml Exam GENERAL: This is a 41-year-old female who appears malnourished, lying in bed in no apparent distress. HEENT: Head normocephalic and atraumatic. Eyes: Anicteric sclerae. Conjunctivae clear. ENT: Nasal septum is midline. Oral mucosa is dry. NECK: Supple. No JVD noticed. RESPIRATORY: Bilaterally clear to auscultation. No adventitious breath sounds heard. No use of accessory muscles of respiration. CARDIAC: Regular rate and rhythm. No murmurs heard. ABDOMEN: Soft, nontender and nondistended. Bowel sounds positive in all 4 quadrants. Right lower quadrant drain in place. GENITOURINARY: Deferred. EXTREMITIES: No cyanosis, no clubbing. Bilateral lower extremity edema. Peripheral pulses palpable. NEUROLOGIC: The patient is awake, alert and oriented. Cranial nerves are grossly intact. Results Result Diagram: 12/07/16 0545 12/06/16 1400 Results 24 hrs Laboratory Tests Test 12/06/16 14:00 12/07/16 05:45 White Blood Count 6.5 # 4.2 #L Red Blood Count 2.76 L 2.85 L Hemoglobin 7.9 L 8.2 L Hematocrit 24.7 L 25.7 L Mean Corpuscular Volume 89.5 90.2 Mean Corpuscular Hemoglobin 28.6 L 28.8 L Mean Corpuscular Hemoglobin Concent 32.0 31.9 L Red Cell Distribution Width 17.5 H 17.9 H Platelet Count 286 312 Mean Platelet Volume 8.8 8.9 Neutrophils % 71.6 54.8 Lymphocytes % 14.9 L 27.5 Monocytes % 7.5 7.9 Eosinophils % 0.5 1.0 Basophils % 0.6 0.7 Nucleated Red Blood Cells % 0.0 0.0 Neutrophils # 4.7 2.3 Lymphocytes # 1.0 1.2 Monocytes # 0.5 0.3 Eosinophils # 0.0 0.0 Basophils # 0.0 0.0 Nucleated Red Blood Cells # 0.0 0.0 Sodium Level 133 L Potassium Level 4.2 Chloride Level 104 Carbon Dioxide Level 25 Anion Gap 8 Blood Urea Nitrogen 17 Creatinine 0.52 Glucose Level 115 Calcium Level 8.0 L Phosphorus Level 3.6 Magnesium Level 1.7 Medications Medications Current Medications Ondansetron HCl (Zofran Inj) 4 mg Q6H PRN IV NAUSEA AND/OR VOMITING Last administered on 12/01/16 09:59; Admin Dose 4 MG; Start 11/11/16 at 16:00 Acetaminophen (Tylenol Tab) 650 mg Q6H PRN PO PAIN LEVEL 1-3 OR FEVER; Start at 16:00 Magnesium Hydroxide (Milk Of Mag) 30 ml DAILY PRN PO CONSTIPATION; Start at 16:00 Sodium Biphosphate/ Sodium Phosphate (Fleet Enema) 133 ml DAILY PRN [place] CONSTIPATION; Start 11/11/16 at 16:00 Hydralazine HCl (Apresoline) 10 mg Q6H PRN IV ELEVATED BLOOD PRESSURE; Start at 16:00 Nitroglycerin (Nitroglycerin (Sl Tab) 0.4 Mg) 1 tab Q5M PRN SL ANGINA Last administered on 11/11/16 23:25; Admin Dose 1 TAB; Start 11/11/16 at 16:00 Efavirenz (Sustiva) 600 mg DAILY PO Last administered on 12/07/16 08:53; Admin Dose 600 MG; Start 11/12/16 at 09:00 Emtricitabine/ Tenofovir (Truvada) 1 tab DAILY PO Last administered on 08:54; Admin Dose 1 TAB; Start 11/12/16 at 09:00 Sucralfate (Carafate) 1 gm QID PO Last administered on 12/07/16 13:08; Admin Dose 1 GM; Start 11/11/16 at 17:00 Valganciclovir (Valcyte) 450 mg Q12 PO Last administered on 12/07/16 08:53; Admin Dose 450 MG; Start 11/11/16 at 21:00 Collagenase (Santyl) 1 applic DAILY TOP Last administered on 12/06/16 09:50; Admin Dose 1 APPLIC; Start 11/12/16 at 13:00 Collagenase (Santyl) 1 applic PRN PRN TOP WOUND CARE; Start 11/12/16 at 12:00 Mesalamine (Delzicol Dr) 800 mg QID PO Last administered on 12/07/16 13:08; Admin Dose 800 MG; Start 11/12/16 at 21:00 Vancomycin HCl (Vancomycin Oral Syringe) 250 mg Q6 PO Last administered on 12/07 13:08; Admin Dose 250 MG; Start 11/12/16 at 19:30 Fluconazole (Diflucan) 100 mg DAILY PO Last administered on 12/07/16 08:54; Admin Dose 100 MG; Start 11/13/16 at 09:00 Lactobacillus Acidophilus (Florajen3 Capsule) 1 each BID PO Last administered on 12/07/16 08:56; Admin Dose 1 EACH; Start 11/13/16 at 21:00 Pantoprazole (Protonix Tab) 40 mg BID@ PO Last administered on 12/07/16 06:10; Admin Dose 40 MG; Start 11/28/16 at 06:00 Metoclopramide HCl (Reglan) 5 mg TID PO Last administered on 12/07/16 13:08; Admin Dose 5 MG; Start 11/27/16 at 21:00 Levetiracetam (Keppra) 500 mg BID PO Last administered on 12/07/16 08:54; Admin Dose 500 MG; Start 11/27/16 at 21:00 Potassium Chloride (Klor-Con 20) 40 meq BID PO Last administered on 12/07/16 08:54; Admin Dose 40 MEQ; Start 11/27/16 at 21:00 Enoxaparin Sodium (Lovenox) 40 mg DAILY SC Last administered on 12/07/16 08:49 ; Admin Dose 40 MG; Start 11/29/16 at 09:00 Magnesium Oxide (Mag-Ox 400) 400 mg TID PO Last administered on 12/07/16 13:08 ; Admin Dose 400 MG; Start 11/30/16 at 21:00 Metoprolol Tartrate (Lopressor) 12.5 mg BID PO Last administered on 12/07/16 08:53; Admin Dose 12.5 MG; Start 12/06/16 at 21:00 TK PERALES NP Dec 07, 2016 13:19
[2016-12-07] MEDS ORDERED: morphine 2 MG INJ ONE (13:21)
[2016-12-07] MEDS ORDERED: morphine 2 MG INJ IV ONE (13:30)
--- NOTE | 2016-12-07 20:58 | CONS ---
Date/Time of Note Date/Time of Note DATE: 12/07/16 TIME: 20:57 Assessment/Plan Assessment/Plan Additional Assessment/Plan 1. Severe hyperchloremia with a chloride of 117, unclear etiology. 2. Acute encephalopathy. 3. Status post hemorrhagic shock. 4. Human immunodeficiency virus positive with CD4 count of 157. 5. Positive colitis. 6. Multiple decubitus ulcers. 7. Status post urinary tract infection and sepsis on admission. 8. Depression. 9. Hypomagnesemia PLAN: on PO KCL replacement Na 133, Mag stable today Bp stable afebril will follow up Consultation Date/Type/Reason Admit Date/Time November 11, 2016 at 15:19 Type of Consultation: NEPHROLOGY Referring Provider: JESUS RUIZ 24 HR Interval Summary Free Text/Dictation Na 133, Mag normal today, Cr normal Exam/Review of Systems Vital Signs Vitals Vital Signs Date Time Temp Pulse Resp B/P Pulse Ox O2 Delivery O2 Flow Rate FiO2 12/07/16 20:09 124 12/07/16 19:57 99.4 20 120/81 96 Intake and Output 12/06/16 12/06/16 12/07/16 15:00 23:00 07:00 Intake Total 900 ml 400 ml Output Total 550 ml 350 ml Balance 350 ml 50 ml Exam GENERAL: This is a chronically ill-appearing, cachectic, wasted, middle-aged white woman who is lying comfortably in bed. HEENT: Head atraumatic, normocephalic. Sclerae anicteric. Buccal mucosa dry. NECK: Supple. CHEST: Rise symmetrical. Breath sounds diminished. HEART: S1, S2. ABDOMEN: Soft. Bowel tones present. EXTREMITIES: Without cyanosis. Bilateral edema. Results Result Diagram: 12/07/16 0545 12/06/16 1400 Results 24 hrs Laboratory Tests Test 12/07/16 05:45 White Blood Count 4.2 #L Red Blood Count 2.85 L Hemoglobin 8.2 L Hematocrit 25.7 L Mean Corpuscular Volume 90.2 Mean Corpuscular Hemoglobin 28.8 L Mean Corpuscular Hemoglobin Concent 31.9 L Red Cell Distribution Width 17.9 H Platelet Count 312 Mean Platelet Volume 8.9 Neutrophils % 54.8 Lymphocytes % 27.5 Monocytes % 7.9 Eosinophils % 1.0 Basophils % 0.7 Nucleated Red Blood Cells % 0.0 Neutrophils # 2.3 Lymphocytes # 1.2 Monocytes # 0.3 Eosinophils # 0.0 Basophils # 0.0 Nucleated Red Blood Cells # 0.0 Medications Medications Current Medications Ondansetron HCl (Zofran Inj) 4 mg Q6H PRN IV NAUSEA AND/OR VOMITING Last administered on 12/01/16 09:59; Admin Dose 4 MG; Start 11/11/16 at 16:00 Acetaminophen (Tylenol Tab) 650 mg Q6H PRN PO PAIN LEVEL 1-3 OR FEVER; Start at 16:00 Magnesium Hydroxide (Milk Of Mag) 30 ml DAILY PRN PO CONSTIPATION; Start at 16:00 Sodium Biphosphate/ Sodium Phosphate (Fleet Enema) 133 ml DAILY PRN [place] CONSTIPATION; Start 11/11/16 at 16:00 Hydralazine HCl (Apresoline) 10 mg Q6H PRN IV ELEVATED BLOOD PRESSURE; Start at 16:00 Nitroglycerin (Nitroglycerin (Sl Tab) 0.4 Mg) 1 tab Q5M PRN SL ANGINA Last administered on 11/11/16 23:25; Admin Dose 1 TAB; Start 11/11/16 at 16:00 Efavirenz (Sustiva) 600 mg DAILY PO Last administered on 12/07/16 08:53; Admin Dose 600 MG; Start 11/12/16 at 09:00 Emtricitabine/ Tenofovir (Truvada) 1 tab DAILY PO Last administered on 08:54; Admin Dose 1 TAB; Start 11/12/16 at 09:00 Sucralfate (Carafate) 1 gm QID PO Last administered on 12/07/16 17:28; Admin Dose 1 GM; Start 11/11/16 at 17:00 Valganciclovir (Valcyte) 450 mg Q12 PO Last administered on 12/07/16 08:53; Admin Dose 450 MG; Start 11/11/16 at 21:00 Collagenase (Santyl) 1 applic DAILY TOP Last administered on 12/06/16 09:50; Admin Dose 1 APPLIC; Start 11/12/16 at 13:00 Collagenase (Santyl) 1 applic PRN PRN TOP WOUND CARE; Start 11/12/16 at 12:00 Mesalamine (Delzicol Dr) 800 mg QID PO Last administered on 12/07/16 17:28; Admin Dose 800 MG; Start 11/12/16 at 21:00 Vancomycin HCl (Vancomycin Oral Syringe) 250 mg Q6 PO Last administered on 12/07 18:42; Admin Dose 250 MG; Start 11/12/16 at 19:30 Fluconazole (Diflucan) 100 mg DAILY PO Last administered on 12/07/16 08:54; Admin Dose 100 MG; Start 11/13/16 at 09:00 Lactobacillus Acidophilus (Florajen3 Capsule) 1 each BID PO Last administered on 12/07/16 08:56; Admin Dose 1 EACH; Start 11/13/16 at 21:00 Pantoprazole (Protonix Tab) 40 mg BID@ PO Last administered on 12/07/16 17:28; Admin Dose 40 MG; Start 11/28/16 at 06:00 Metoclopramide HCl (Reglan) 5 mg TID PO Last administered on 12/07/16 13:08; Admin Dose 5 MG; Start 11/27/16 at 21:00 Levetiracetam (Keppra) 500 mg BID PO Last administered on 12/07/16 08:54; Admin Dose 500 MG; Start 11/27/16 at 21:00 Potassium Chloride (Klor-Con 20) 40 meq BID PO Last administered on 12/07/16 08:54; Admin Dose 40 MEQ; Start 11/27/16 at 21:00 Enoxaparin Sodium (Lovenox) 40 mg DAILY SC Last administered on 12/07/16 08:49 ; Admin Dose 40 MG; Start 11/29/16 at 09:00 Magnesium Oxide (Mag-Ox 400) 400 mg TID PO Last administered on 12/07/16 13:08 ; Admin Dose 400 MG; Start 11/30/16 at 21:00 Metoprolol Tartrate (Lopressor) 12.5 mg BID PO Last administered on 12/07/16 08:53; Admin Dose 12.5 MG; Start 12/06/16 at 21:00 ASHISH MENDOZA MD Dec 07, 2016 20:58
[2016-12-07] MEDS ORDERED: OXYCODONE/ACETAMINOPHEN (5/325) TAB PO ONE (23:00)
[2016-12-08] VITALS (12 sets, daily range): BP systolic 96–128; BP diastolic 53–87; PULSE 73–118; RESP 17–19
[2016-12-08] MEDS: PANTOPRAZOLE (EC) 40 MG TAB PO SCH ×2 (05:21→17:34)
[2016-12-08] MEDS: VANCOMYCIN HCL 250 MG/5ML POSYG PO SCH ×4 (05:22→23:19)
[2016-12-08 07:14] LABS: ADD SCAN DIFF NO
[2016-12-08 07:16] LABS: ABNORMAL IP MESSAGE 1; BASOPHIL # 0.1 10^3/ul (0.0-0.1); BASOPHILS % 0.9 % (0.0-2.0); EOSINOPHILS % 0.6 % (0.0-7.0); HEMATOCRIT 24.6 % (37.0-47.0); HEMOGLOBIN 7.6 g/dl (12.0-16.0); LYMPHOCYTES # 1.7 10^3/ul (0.8-2.9); LYMPHOCYTES % 23.7 % (15.0-51.0); MEAN CORPUSCULAR HEMOGLOBIN 28.7 pg (29.0-33.0); MEAN CORPUSCULAR HGB CONC 30.9 g/dl (32.0-37.0); MEAN CORPUSCULAR VOLUME 92.8 fl (82.0-101.0); MEAN PLATELET VOLUME 8.3 fl (7.4-10.4); MONOCYTE # 0.4 10^3/ul (0.3-0.9); MONOCYTES % 5.3 % (0.0-11.0); NEUTROPHIL # 4.3 10^3/ul (1.6-7.5); NEUTROPHILS % 62.3 % (39.0-77.0); PLATELET COUNT 268 10^3/UL (140-415); RED BLOOD COUNT 2.65 10^6/ul (4.20-5.40); RED CELL DISTRIBUTION WIDTH 18.3 % (11.5-14.5)
[2016-12-08 07:47] LABS: MAGNESIUM 1.5 mg/dl (1.7-2.5); PHOSPHORUS 3.9 mg/dl (2.5-4.9)
[2016-12-08 07:56] LABS: CALCIUM 8.4 mg/dl (8.4-10.2); CREATININE 0.67 mg/dl (0.44-1.00); POTASSIUM 4.7 mmol/L (3.5-5.1)
[2016-12-08] MEDS: COLLAGENASE 30 GM TUBE TOP SCH (09:00)
[2016-12-08] MEDS: SUCRALFATE 1 GM TAB PO SCH ×4 (09:44→23:12)
[2016-12-08] MEDS: VALGANCICLOVIR 450 MG TAB PO SCH ×2 (09:44→23:19)
[2016-12-08] MEDS: EFAVIRENZ 600 MG TAB PO SCH (09:44)
[2016-12-08] MEDS: L ACIDOPHIL/B LACTIS/B LONGUM CAPSULE PO SCH ×2 (09:44→21:00)
[2016-12-08] MEDS: FLUCONAZOLE 100 MG TAB PO SCH (09:44)
[2016-12-08] MEDS: LEVETIRACETAM 500 MG TAB PO SCH ×2 (09:44→23:11)
[2016-12-08] MEDS: METOCLOPRAMIDE 5 MG TAB PO SCH ×3 (09:44→23:12)
[2016-12-08] MEDS: POTASSIUM CHLORIDE (SR) 20 MEQ TAB PO SCH ×2 (09:45→23:12)
[2016-12-08] MEDS: MAGNESIUM OXIDE 400 MG TAB PO SCH ×3 (09:45→23:19)
[2016-12-08] MEDS: MESALAMINE (EC) 400 MG CAP PO SCH ×4 (09:51→23:11)
[2016-12-08] MEDS: EMTRICITABINE/TENOFOVIR TAB PO SCH (09:51)
[2016-12-08] MEDS: METOPROLOL 25 MG TAB PO SCH ×2 (09:57→23:13)
[2016-12-08] MEDS: ENOXAPARIN 40 MG/0.4 ML SYG SC SCH (09:59)
[2016-12-08] MEDS ORDERED: MAGNESIUM SULFATE 3 GM in SOD CHLORIDE 0.9% 100 ML IVPB ONE (11:30)
[2016-12-08] MEDS ORDERED: SOD CHLORIDE 0.9% 250 ML IV* ONE (11:31)
--- NOTE | 2016-12-08 11:31 | PN ---
Date/Time of Note Date/Time of Note DATE: 12/08/16 TIME: 11:27 Assessment/Plan VTE Prophylaxis VTE Prophylaxis Intervention: SCD's Lines/Catheters IV C[facility]ter Type (from [facility] PICC Line Central line still needed: Yes Urinary Cath still in place: Yes Reason Cath still needed: other (indicate) Assessment/Plan Chief Complaint/Hosp Course 1. Lower gastrointestinal bleeding. Status post upper and lower endoscopy on 11/13/2016 that showed severe ulcerative esophagitis and a universal ulcerative colitis. Continue management as per Gastroenterology. Continue Mesalamine and Protonix. 2. Severe anemia secondary to #1, status post PRBC and platelet transfusion. Continue to monitor H&H closely. Transfuse as needed. 3. Human immunodeficiency virus/acquired immunodeficiency syndrome. CD4 count less than 35. CD4 count 157. Continue HAART. 4. Deconditioning. Physical therapy. 5. Multiple chronic wounds that are infected. Status post antimicrobials as per Infectious Disease. 6. History of polysubstance abuse. 7. History of depression and post-traumatic stress disorder. Continue mood stabilizers. 8. Urinary tract infection with E. coli and Proteus mirabilis. Status post antibiotics as per Infectious Disease. 9. Severe protein calorie malnutrition. Continue protein supplements. 10. Right lower quadrant abdominal orifice draining clear fluid. Resolved. 11. Seizure disorder (single witnessed episode). Status post evaluation by neurology. Continue anticonvulsants. 12. Possible aspiration pneumonia. Status post antibiotics as per infectious diseases. Aspiration precautions. 13. Sinus tachycardia. Etiology could be multifactorial. The patient was started on low-dose data blockers. 13. Fluid, electrolytes and nutrition. Regular diet. 14. Deep vein thrombosis prophylaxis. Subcutaneous Lovenox. Will hold this because of anemia. 15. Gastrointestinal prophylaxis. Proton pump inhibitors. 16. Plan. Continue current management. Await placement. Transfuse 1 unit of PRBC today. Replete magnesium. Case discussed with Dr. Stubbs. Problems: Subjective 24 Hr Interval Summary Free Text/Dictation Patient continues to be tachycardic. Exam/Review of Systems Vital Signs Vitals Vital Signs Date Time Temp Pulse Resp B/P Pulse Ox O2 Delivery O2 Flow Rate FiO2 12/08/16 08:25 98.3 102 17 128/81 95 Intake and Output 12/07/16 12/07/16 12/08/16 15:00 23:00 07:00 Intake Total 1500 ml 450 ml Output Total 400 ml 600 ml Balance 1100 ml -150 ml Exam GENERAL: This is a 41-year-old female who appears malnourished, lying in bed in no apparent distress. HEENT: Head normocephalic and atraumatic. Eyes: Anicteric sclerae. Conjunctivae clear. ENT: Nasal septum is midline. Oral mucosa is dry. NECK: Supple. No JVD noticed. RESPIRATORY: Bilaterally clear to auscultation. No adventitious breath sounds heard. No use of accessory muscles of respiration. CARDIAC: Regular rate and rhythm. No murmurs heard. ABDOMEN: Soft, nontender and nondistended. Bowel sounds positive in all 4 quadrants. Right lower quadrant drain in place. GENITOURINARY: Deferred. EXTREMITIES: No cyanosis, no clubbing. Bilateral lower extremity edema. Peripheral pulses palpable. NEUROLOGIC: The patient is awake, alert and oriented. Cranial nerves are grossly intact. Results Result Diagram: 12/08/16 0700 12/08/16 0700 Results 24 hrs Laboratory Tests Test 12/08/16 07:00 White Blood Count 7.0 # Red Blood Count 2.65 L Hemoglobin 7.6 L Hematocrit 24.6 L Mean Corpuscular Volume 92.8 Mean Corpuscular Hemoglobin 28.7 L Mean Corpuscular Hemoglobin Concent 30.9 L Red Cell Distribution Width 18.3 H Platelet Count 268 Mean Platelet Volume 8.3 Neutrophils % 62.3 Lymphocytes % 23.7 Monocytes % 5.3 Eosinophils % 0.6 Basophils % 0.9 Nucleated Red Blood Cells % 0.0 Neutrophils # 4.3 Lymphocytes # 1.7 Monocytes # 0.4 Eosinophils # 0.0 Basophils # 0.1 Nucleated Red Blood Cells # 0.0 Sodium Level 133 L Potassium Level 4.7 Chloride Level 104 Carbon Dioxide Level 26 Anion Gap 8 Blood Urea Nitrogen 23 H Creatinine 0.67 Glucose Level 89 Calcium Level 8.4 Phosphorus Level 3.9 Magnesium Level 1.5 L Medications Medications Current Medications Ondansetron HCl (Zofran Inj) 4 mg Q6H PRN IV NAUSEA AND/OR VOMITING Last administered on 12/01/16 09:59; Admin Dose 4 MG; Start 11/11/16 at 16:00 Acetaminophen (Tylenol Tab) 650 mg Q6H PRN PO PAIN LEVEL 1-3 OR FEVER; Start at 16:00 Magnesium Hydroxide (Milk Of Mag) 30 ml DAILY PRN PO CONSTIPATION; Start at 16:00 Sodium Biphosphate/ Sodium Phosphate (Fleet Enema) 133 ml DAILY PRN [place] CONSTIPATION; Start 11/11/16 at 16:00 Hydralazine HCl (Apresoline) 10 mg Q6H PRN IV ELEVATED BLOOD PRESSURE; Start at 16:00 Nitroglycerin (Nitroglycerin (Sl Tab) 0.4 Mg) 1 tab Q5M PRN SL ANGINA Last administered on 11/11/16 23:25; Admin Dose 1 TAB; Start 11/11/16 at 16:00 Efavirenz (Sustiva) 600 mg DAILY PO Last administered on 12/08/16 09:44; Admin Dose 600 MG; Start 11/12/16 at 09:00 Emtricitabine/ Tenofovir (Truvada) 1 tab DAILY PO Last administered on 09:51; Admin Dose 1 TAB; Start 11/12/16 at 09:00 Sucralfate (Carafate) 1 gm QID PO Last administered on 12/08/16 09:44; Admin Dose 1 GM; Start 11/11/16 at 17:00 Valganciclovir (Valcyte) 450 mg Q12 PO Last administered on 12/08/16 09:44; Admin Dose 450 MG; Start 11/11/16 at 21:00 Collagenase (Santyl) 1 applic DAILY TOP Last administered on 12/08/16 09:00; Admin Dose 1 APPLIC; Start 11/12/16 at 13:00 Collagenase (Santyl) 1 applic PRN PRN TOP WOUND CARE; Start 11/12/16 at 12:00 Mesalamine (Delzicol Dr) 800 mg QID PO Last administered on 12/08/16 09:51; Admin Dose 800 MG; Start 11/12/16 at 21:00 Vancomycin HCl (Vancomycin Oral Syringe) 250 mg Q6 PO Last administered on 12/08 05:22; Admin Dose 250 MG; Start 11/12/16 at 19:30 Fluconazole (Diflucan) 100 mg DAILY PO Last administered on 12/08/16 09:44; Admin Dose 100 MG; Start 11/13/16 at 09:00 Lactobacillus Acidophilus (Florajen3 Capsule) 1 each BID PO Last administered on 12/08/16 09:44; Admin Dose 1 EACH; Start 11/13/16 at 21:00 Pantoprazole (Protonix Tab) 40 mg BID@ PO Last administered on 12/08/16 05:21; Admin Dose 40 MG; Start 11/28/16 at 06:00 Metoclopramide HCl (Reglan) 5 mg TID PO Last administered on 12/08/16 09:44; Admin Dose 5 MG; Start 11/27/16 at 21:00 Levetiracetam (Keppra) 500 mg BID PO Last administered on 12/08/16 09:44; Admin Dose 500 MG; Start 11/27/16 at 21:00 Potassium Chloride (Klor-Con 20) 40 meq BID PO Last administered on 12/08/16 09:45; Admin Dose 40 MEQ; Start 11/27/16 at 21:00 Enoxaparin Sodium (Lovenox) 40 mg DAILY SC Last administered on 12/08/16 09:59 ; Admin Dose 40 MG; Start 11/29/16 at 09:00 Magnesium Oxide (Mag-Ox 400) 400 mg TID PO Last administered on 12/08/16 09:45 ; Admin Dose 400 MG; Start 11/30/16 at 21:00 Metoprolol Tartrate (Lopressor) 12.5 mg BID PO Last administered on 12/08/16 09:57; Admin Dose 12.5 MG; Start 12/06/16 at 21:00 TK PERALES NP Dec 08, 2016 11:31
--- NOTE | 2016-12-08 17:49 | CONS ---
Date/Time of Note Date/Time of Note DATE: 12/08/16 TIME: 17:49 Assessment/Plan Assessment/Plan Additional Assessment/Plan 1. Severe hyperchloremia with a chloride of 117, unclear etiology. 2. Acute encephalopathy. 3. Status post hemorrhagic shock. 4. Human immunodeficiency virus positive with CD4 count of 157. 5. Positive colitis. 6. Multiple decubitus ulcers. 7. Status post urinary tract infection and sepsis on admission. 8. Depression. 9. Hypomagnesemia PLAN: on PO KCL replacement Na 133, Mag low already replaced with 3 gram Today Bp stable will follow up Consultation Date/Type/Reason Admit Date/Time November 11, 2016 at 15:19 Type of Consultation: NEPHROLOGY Referring Provider: JESUS RUIZ 24 HR Interval Summary Free Text/Dictation Na 133, magnesium low, BP stable Exam/Review of Systems Vital Signs Vitals Vital Signs Date Time Temp Pulse Resp B/P Pulse Ox O2 Delivery O2 Flow Rate FiO2 12/08/16 16:16 98.1 117 17 119/76 95 Intake and Output 12/07/16 12/07/16 12/08/16 15:00 23:00 07:00 Intake Total 1500 ml 450 ml Output Total 400 ml 600 ml Balance 1100 ml -150 ml Results Result Diagram: 12/08/16 0700 12/08/16 0700 Results 24 hrs Laboratory Tests Test 12/08/16 07:00 White Blood Count 7.0 # Red Blood Count 2.65 L Hemoglobin 7.6 L Hematocrit 24.6 L Mean Corpuscular Volume 92.8 Mean Corpuscular Hemoglobin 28.7 L Mean Corpuscular Hemoglobin Concent 30.9 L Red Cell Distribution Width 18.3 H Platelet Count 268 Mean Platelet Volume 8.3 Neutrophils % 62.3 Lymphocytes % 23.7 Monocytes % 5.3 Eosinophils % 0.6 Basophils % 0.9 Nucleated Red Blood Cells % 0.0 Neutrophils # 4.3 Lymphocytes # 1.7 Monocytes # 0.4 Eosinophils # 0.0 Basophils # 0.1 Nucleated Red Blood Cells # 0.0 Sodium Level 133 L Potassium Level 4.7 Chloride Level 104 Carbon Dioxide Level 26 Anion Gap 8 Blood Urea Nitrogen 23 H Creatinine 0.67 Glucose Level 89 Calcium Level 8.4 Phosphorus Level 3.9 Magnesium Level 1.5 L Medications Medications Current Medications Ondansetron HCl (Zofran Inj) 4 mg Q6H PRN IV NAUSEA AND/OR VOMITING Last administered on 12/01/16 09:59; Admin Dose 4 MG; Start 11/11/16 at 16:00 Acetaminophen (Tylenol Tab) 650 mg Q6H PRN PO PAIN LEVEL 1-3 OR FEVER; Start at 16:00 Magnesium Hydroxide (Milk Of Mag) 30 ml DAILY PRN PO CONSTIPATION; Start at 16:00 Sodium Biphosphate/ Sodium Phosphate (Fleet Enema) 133 ml DAILY PRN [place] CONSTIPATION; Start 11/11/16 at 16:00 Hydralazine HCl (Apresoline) 10 mg Q6H PRN IV ELEVATED BLOOD PRESSURE; Start at 16:00 Nitroglycerin (Nitroglycerin (Sl Tab) 0.4 Mg) 1 tab Q5M PRN SL ANGINA Last administered on 11/11/16 23:25; Admin Dose 1 TAB; Start 11/11/16 at 16:00 Efavirenz (Sustiva) 600 mg DAILY PO Last administered on 12/08/16 09:44; Admin Dose 600 MG; Start 11/12/16 at 09:00 Emtricitabine/ Tenofovir (Truvada) 1 tab DAILY PO Last administered on 09:51; Admin Dose 1 TAB; Start 11/12/16 at 09:00 Sucralfate (Carafate) 1 gm QID PO Last administered on 12/08/16 17:34; Admin Dose 1 GM; Start 11/11/16 at 17:00 Valganciclovir (Valcyte) 450 mg Q12 PO Last administered on 12/08/16 09:44; Admin Dose 450 MG; Start 11/11/16 at 21:00 Collagenase (Santyl) 1 applic DAILY TOP Last administered on 12/08/16 09:00; Admin Dose 1 APPLIC; Start 11/12/16 at 13:00 Collagenase (Santyl) 1 applic PRN PRN TOP WOUND CARE; Start 11/12/16 at 12:00 Mesalamine (Delzicol Dr) 800 mg QID PO Last administered on 12/08/16 17:38; Admin Dose 800 MG; Start 11/12/16 at 21:00 Vancomycin HCl (Vancomycin Oral Syringe) 250 mg Q6 PO Last administered on 12/08 17:34; Admin Dose 250 MG; Start 11/12/16 at 19:30 Fluconazole (Diflucan) 100 mg DAILY PO Last administered on 12/08/16 09:44; Admin Dose 100 MG; Start 11/13/16 at 09:00 Lactobacillus Acidophilus (Florajen3 Capsule) 1 each BID PO Last administered on 12/08/16 09:44; Admin Dose 1 EACH; Start 11/13/16 at 21:00 Pantoprazole (Protonix Tab) 40 mg BID@18 PO Last administered on 12/08/16 17:34; Admin Dose 40 MG; Start 11/28/16 at 06:00 Metoclopramide HCl (Reglan) 5 mg TID PO Last administered on 12/08/16 13:04; Admin Dose 5 MG; Start 11/27/16 at 21:00 Levetiracetam (Keppra) 500 mg BID PO Last administered on 12/08/16 09:44; Admin Dose 500 MG; Start 11/27/16 at 21:00 Potassium Chloride (Klor-Con 20) 40 meq BID PO Last administered on 12/08/16 09:45; Admin Dose 40 MEQ; Start 11/27/16 at 21:00 Enoxaparin Sodium (Lovenox) 40 mg DAILY SC Last administered on 12/08/16 09:59 ; Admin Dose 40 MG; Start 11/29/16 at 09:00; Status Future Hold Magnesium Oxide (Mag-Ox 400) 400 mg TID PO Last administered on 12/08/16 13:04 ; Admin Dose 400 MG; Start 11/30/16 at 21:00 Metoprolol Tartrate (Lopressor) 12.5 mg BID PO Last administered on 12/08/16 09:57; Admin Dose 12.5 MG; Start 12/06/16 at 21:00 ASHISH MENDOZA MD Dec 08, 2016 17:49
--- NOTE | 2016-12-08 21:21 | CONS ---
Date/Time of Note Date/Time of Note DATE: 12/08/16 TIME: 21:20 Assessment/Plan Assessment/Plan Chief Complaint/Hosp Course SUBJECTIVE: No events overnight. No fevers. Alert, looks comfortable MICROBIOLOGY: Repeat blood and urine cultures negative. ANTIMICROBIALS: 1. Oral vancomycin. 2. Fluconazole. 3. Truvada. 4. Sustiva. 5. Valcyte. PHYSICAL EXAMINATION: GENERAL: This is a chronically ill-appearing, cachectic, wasted, middle-aged white woman who is lying comfortably in bed. HEENT: Head atraumatic, normocephalic. Sclerae anicteric. Buccal mucosa dry. NECK: Supple. CHEST: Rise symmetrical. Breath sounds diminished. HEART: S1, S2. ABDOMEN: Soft. Bowel tones present. EXTREMITIES: Without cyanosis. Bilateral edema. SKIN: Positive for anasarca. ASSESSMENT: 1. Status post severe sepsis with shock. 2. Acute encephalopathy, possibly post-ictal==> improving. 3. Questionable mastoiditis==> treated. 4. Healthcare-acquired pneumonia, possibly aspiration==> treated. 5. Human immunodeficiency virus with CD4 count of 241. 6. Multiple chronic wounds. 7. History of Inocencia esophagitis. PLAN: The patient remains stable. Continue abx/MAYERS, PT, optimize nutrition Dw staff Problems: Consultation Date/Type/Reason Admit Date/Time November 11, 2016 at 15:19 Initial Consult Date 11/11/16 Type of Consultation: ID Referring Provider: JESUS RUIZ Exam/Review of Systems Vital Signs Vitals Vital Signs Date Time Temp Pulse Resp B/P Pulse Ox O2 Delivery O2 Flow Rate FiO2 12/08/16 20:49 99.5 124 18 118/86 99 Intake and Output 12/07/16 12/07/16 12/08/16 15:00 23:00 07:00 Intake Total 1500 ml 450 ml Output Total 400 ml 600 ml Balance 1100 ml -150 ml Results Result Diagram: 12/08/16 0700 12/08/16 0700 Results 24 hrs Laboratory Tests Test 12/08/16 07:00 White Blood Count 7.0 # Red Blood Count 2.65 L Hemoglobin 7.6 L Hematocrit 24.6 L Mean Corpuscular Volume 92.8 Mean Corpuscular Hemoglobin 28.7 L Mean Corpuscular Hemoglobin Concent 30.9 L Red Cell Distribution Width 18.3 H Platelet Count 268 Mean Platelet Volume 8.3 Neutrophils % 62.3 Lymphocytes % 23.7 Monocytes % 5.3 Eosinophils % 0.6 Basophils % 0.9 Nucleated Red Blood Cells % 0.0 Neutrophils # 4.3 Lymphocytes # 1.7 Monocytes # 0.4 Eosinophils # 0.0 Basophils # 0.1 Nucleated Red Blood Cells # 0.0 Sodium Level 133 L Potassium Level 4.7 Chloride Level 104 Carbon Dioxide Level 26 Anion Gap 8 Blood Urea Nitrogen 23 H Creatinine 0.67 Glucose Level 89 Calcium Level 8.4 Phosphorus Level 3.9 Magnesium Level 1.5 L Medications Medications Current Medications Ondansetron HCl (Zofran Inj) 4 mg Q6H PRN IV NAUSEA AND/OR VOMITING Last administered on 12/01/16 09:59; Admin Dose 4 MG; Start 11/11/16 at 16:00 Acetaminophen (Tylenol Tab) 650 mg Q6H PRN PO PAIN LEVEL 1-3 OR FEVER; Start at 16:00 Magnesium Hydroxide (Milk Of Mag) 30 ml DAILY PRN PO CONSTIPATION; Start at 16:00 Sodium Biphosphate/ Sodium Phosphate (Fleet Enema) 133 ml DAILY PRN [place] CONSTIPATION; Start 11/11/16 at 16:00 Hydralazine HCl (Apresoline) 10 mg Q6H PRN IV ELEVATED BLOOD PRESSURE; Start at 16:00 Nitroglycerin (Nitroglycerin (Sl Tab) 0.4 Mg) 1 tab Q5M PRN SL ANGINA Last administered on 11/11/16 23:25; Admin Dose 1 TAB; Start 11/11/16 at 16:00 Efavirenz (Sustiva) 600 mg DAILY PO Last administered on 12/08/16 09:44; Admin Dose 600 MG; Start 11/12/16 at 09:00 Emtricitabine/ Tenofovir (Truvada) 1 tab DAILY PO Last administered on 09:51; Admin Dose 1 TAB; Start 11/12/16 at 09:00 Sucralfate (Carafate) 1 gm QID PO Last administered on 12/08/16 17:34; Admin Dose 1 GM; Start 11/11/16 at 17:00 Valganciclovir (Valcyte) 450 mg Q12 PO Last administered on 12/08/16 09:44; Admin Dose 450 MG; Start 11/11/16 at 21:00 Collagenase (Santyl) 1 applic DAILY TOP Last administered on 12/08/16 09:00; Admin Dose 1 APPLIC; Start 11/12/16 at 13:00 Collagenase (Santyl) 1 applic PRN PRN TOP WOUND CARE; Start 11/12/16 at 12:00 Mesalamine (Delzicol Dr) 800 mg QID PO Last administered on 12/08/16 17:38; Admin Dose 800 MG; Start 11/12/16 at 21:00 Vancomycin HCl (Vancomycin Oral Syringe) 250 mg Q6 PO Last administered on 12/08 17:34; Admin Dose 250 MG; Start 11/12/16 at 19:30 Fluconazole (Diflucan) 100 mg DAILY PO Last administered on 12/08/16 09:44; Admin Dose 100 MG; Start 11/13/16 at 09:00 Lactobacillus Acidophilus (Florajen3 Capsule) 1 each BID PO Last administered on 12/08/16 09:44; Admin Dose 1 EACH; Start 11/13/16 at 21:00 Pantoprazole (Protonix Tab) 40 mg BID@,18 PO Last administered on 12/08/16 17:34; Admin Dose 40 MG; Start 11/28/16 at 06:00 Metoclopramide HCl (Reglan) 5 mg TID PO Last administered on 12/08/16 13:04; Admin Dose 5 MG; Start 11/27/16 at 21:00 Levetiracetam (Keppra) 500 mg BID PO Last administered on 12/08/16 09:44; Admin Dose 500 MG; Start 11/27/16 at 21:00 Potassium Chloride (Klor-Con 20) 40 meq BID PO Last administered on 12/08/16 09:45; Admin Dose 40 MEQ; Start 11/27/16 at 21:00 Enoxaparin Sodium (Lovenox) 40 mg DAILY SC Last administered on 12/08/16 09:59 ; Admin Dose 40 MG; Start 11/29/16 at 09:00; Status Future Hold Magnesium Oxide (Mag-Ox 400) 400 mg TID PO Last administered on 12/08/16 13:04 ; Admin Dose 400 MG; Start 11/30/16 at 21:00 Metoprolol Tartrate (Lopressor) 12.5 mg BID PO Last administered on 12/08/16t 09:57; Admin Dose 12.5 MG; Start 12/06/16 at 21:00 AGUILA BURGOS NP Dec 08, 2016 21:21
[2016-12-09] VITALS (12 sets, daily range): BP systolic 106–130; BP diastolic 63–90; PULSE 83–123; RESP 16–18
[2016-12-09] MEDS: VANCOMYCIN HCL 250 MG/5ML POSYG PO SCH ×3 (06:36→17:49)
[2016-12-09] MEDS: PANTOPRAZOLE (EC) 40 MG TAB PO SCH ×2 (06:36→17:49)
[2016-12-09 07:09] LABS: ADD SCAN DIFF NO
[2016-12-09 07:18] LABS: ABNORMAL IP MESSAGE 1; HEMATOCRIT 32.2 % (37.0-47.0); HEMOGLOBIN 10.2 g/dl (12.0-16.0); MEAN CORPUSCULAR HEMOGLOBIN 28.3 pg (29.0-33.0); MEAN CORPUSCULAR HGB CONC 31.7 g/dl (32.0-37.0); MEAN CORPUSCULAR VOLUME 89.4 fl (82.0-101.0); MEAN PLATELET VOLUME 8.3 fl (7.4-10.4); PLATELET COUNT 275 10^3/UL (140-415); RED CELL DISTRIBUTION WIDTH 18.5 % (11.5-14.5); WHITE BLOOD COUNT 7.4 10^3/ul (4.8-10.8)
[2016-12-09 07:49] LABS: MAGNESIUM 2.3 mg/dl (1.7-2.5); PHOSPHORUS 3.6 mg/dl (2.5-4.9)
[2016-12-09 07:50] LABS: CALCIUM 8.4 mg/dl (8.4-10.2); CREATININE 0.56 mg/dl (0.44-1.00); POTASSIUM 4.7 mmol/L (3.5-5.1)
[2016-12-09] MEDS: COLLAGENASE 30 GM TUBE TOP SCH (10:14)
[2016-12-09] MEDS: MESALAMINE (EC) 400 MG CAP PO SCH ×4 (10:14→21:44)
[2016-12-09] MEDS: SUCRALFATE 1 GM TAB PO SCH ×4 (10:15→21:43)
[2016-12-09] MEDS: L ACIDOPHIL/B LACTIS/B LONGUM CAPSULE PO SCH ×2 (10:15→21:00)
[2016-12-09] MEDS: EFAVIRENZ 600 MG TAB PO SCH (10:15)
[2016-12-09] MEDS: LEVETIRACETAM 500 MG TAB PO SCH ×2 (10:16→21:43)
[2016-12-09] MEDS: EMTRICITABINE/TENOFOVIR TAB PO SCH (10:16)
[2016-12-09] MEDS: POTASSIUM CHLORIDE (SR) 20 MEQ TAB PO SCH ×2 (10:16→21:44)
[2016-12-09] MEDS: FLUCONAZOLE 100 MG TAB PO SCH (10:16)
[2016-12-09] MEDS: METOCLOPRAMIDE 5 MG TAB PO SCH ×3 (10:16→21:43)
[2016-12-09] MEDS: VALGANCICLOVIR 450 MG TAB PO SCH ×2 (10:17→21:44)
[2016-12-09] MEDS: MAGNESIUM OXIDE 400 MG TAB PO SCH ×3 (10:17→21:43)
[2016-12-09] MEDS: METOPROLOL 25 MG TAB PO SCH ×2 (10:17→21:43)
[2016-12-09 10:31] LABS: BASOPHIL # 0.1 10^3/ul (0.0-0.1); LYMPHOCYTES # 1.3 10^3/ul (0.8-2.9); MONOCYTE # 0.3 10^3/ul (0.3-0.9); MYELOCYTES # 0.2; NEUTROPHIL # 5.1 10^3/ul (1.6-7.5)
--- NOTE | 2016-12-09 11:56 | PN ---
DATE: 12/09/2016 SUBJECTIVE: Chart reviewed. Events noted. Patient received packed RBC transfusion yesterday. Cur rently stable. PHYSICAL EXAMINATION: VITAL SIGNS: Blood pressure 116/66, pulse 70, respirations 16, temperature 98.4, saturating 98%. HEENT: Pupils are equal and react to light. Anicteric sclerae. NECK: Supple, no JVD noted, no cervical adenopathy, no carotid bruits heard. LUNGS: Fair breath sounds bilaterally. CARDIOVASCULAR: S1, S2 normal. ABDOMEN: Soft, nontender. Positive bowel sounds. EXTREMITIES: No clubbing, cyanosis noted. NEUROLOGICAL: Awake. LABORATORY DATA: WBC 7.4, hemoglobin 10.2, hematocrit 32.2, platelets 275. Sodium 136, potassium 4 .7, chloride 104, CO2 29, BUN 20, creatinine 0.56, glucose 95. IMPRESSION: 1. Lower gastrointestinal bleed, status post upper and lower endoscopy, showing severe ulcerative e sophagitis and ulcerative colitis. 2. Severe anemia, status post transfusion. 3. Human immunodeficiency virus positive with CD4 count less than 35. 4. Deconditioning. 5. Multiple wounds. 6. History of polysubstance abuse. 7. History of depression. 8. Status post urinary tract infection. 9. Severe malnutrition. 10. Seizure disorder. RECOMMENDATIONS: 1. Continue current medications. 2. Continue mesalamine and Protonix. 3. Infectious disease followup noted. 4. Follow up labs. 5. Above discussed with the staff. Dictated By: NOE TERAN MD, MA/SHILPA Conf#: [id number] DID#: [id number]
--- NOTE | 2016-12-09 12:25 | CONS ---
Date/Time of Note Date/Time of Note DATE: 12/09/16 TIME: 12:25 Assessment/Plan Assessment/Plan Chief Complaint/Hosp Course SUBJECTIVE: No events overnight. No fevers. Sleeping, nad MICROBIOLOGY: Repeat blood and urine cultures negative. ANTIMICROBIALS: 1. Oral vancomycin. 2. Fluconazole. 3. Truvada. 4. Sustiva. 5. Valcyte. PHYSICAL EXAMINATION: GENERAL: This is a chronically ill-appearing, cachectic, wasted, middle-aged white woman who is lying comfortably in bed. HEENT: Head atraumatic, normocephalic. Sclerae anicteric. Buccal mucosa dry. NECK: Supple. CHEST: Rise symmetrical. Breath sounds diminished. HEART: S1, S2. ABDOMEN: Soft. Bowel tones present. EXTREMITIES: Without cyanosis. Bilateral edema. SKIN: Positive for anasarca. ASSESSMENT: 1. Status post severe sepsis with shock. 2. Acute encephalopathy, possibly post-ictal==> improving. 3. Questionable mastoiditis==> treated. 4. Healthcare-acquired pneumonia, possibly aspiration==> treated. 5. Human immunodeficiency virus with CD4 count of 241. 6. Multiple chronic wounds. 7. History of Inocencia esophagitis. PLAN: The patient remains stable. Continue abx/MAYERS, PT, optimize nutrition Dw staff Problems: Consultation Date/Type/Reason Admit Date/Time November 11, 2016 at 15:19 Initial Consult Date 11/11/16 Type of Consultation: ID Referring Provider: JESUS RUIZ Exam/Review of Systems Vital Signs Vitals Vital Signs Date Time Temp Pulse Resp B/P Pulse Ox O2 Delivery O2 Flow Rate FiO2 12/09/16 12:21 83 12/09/16 11:17 98.4 16 116/66 98 Intake and Output 12/08/16 12/08/16 12/09/16 15:00 23:00 07:00 Intake Total 950 ml 1050 ml Output Total 900 ml 650 ml Balance 50 ml 400 ml Results Result Diagram: 12/09/16 0623 12/09/16 0623 Results 24 hrs Laboratory Tests Test 12/09/16 06:23 12/09/16 07:20 White Blood Count 7.4 Red Blood Count 3.60 #L Hemoglobin 10.2 #L Hematocrit 32.2 #L Mean Corpuscular Volume 89.4 Mean Corpuscular Hemoglobin 28.3 L Mean Corpuscular Hemoglobin Concent 31.7 L Red Cell Distribution Width 18.5 H Platelet Count 275 Mean Platelet Volume 8.3 Neutrophils % 69.0 Lymphocytes % 17.0 Monocytes % 4.0 Basophils % 1.0 Metamyelocytes % 4.0 H Myelocytes % 3.0 H Promyelocytes % 2.0 H Neutrophils # 5.1 Lymphocytes # 1.3 Monocytes # 0.3 Basophils # 0.1 Metamyelocytes # 0.3 Myelocytes # 0.2 Promyelocytes # 0.1 Differential Comment MANUAL DIFF Sodium Level 136 Potassium Level 4.7 Chloride Level 104 Carbon Dioxide Level 29 Anion Gap 8 Blood Urea Nitrogen 20 Creatinine 0.56 Glucose Level 95 Calcium Level 8.4 Phosphorus Level 3.6 Magnesium Level 2.3 Lab Scanned Report BLOOD TRANSFUSION Medications Medications Current Medications Ondansetron HCl (Zofran Inj) 4 mg Q6H PRN IV NAUSEA AND/OR VOMITING Last administered on 12/01/16 09:59; Admin Dose 4 MG; Start 11/11/16 at 16:00 Acetaminophen (Tylenol Tab) 650 mg Q6H PRN PO PAIN LEVEL 1-3 OR FEVER; Start at 16:00 Magnesium Hydroxide (Milk Of Mag) 30 ml DAILY PRN PO CONSTIPATION; Start at 16:00 Sodium Biphosphate/ Sodium Phosphate (Fleet Enema) 133 ml DAILY PRN [place] CONSTIPATION; Start 11/11/16 at 16:00 Hydralazine HCl (Apresoline) 10 mg Q6H PRN IV ELEVATED BLOOD PRESSURE; Start at 16:00 Nitroglycerin (Nitroglycerin (Sl Tab) 0.4 Mg) 1 tab Q5M PRN SL ANGINA Last administered on 11/11/16 23:25; Admin Dose 1 TAB; Start 11/11/16 at 16:00 Efavirenz (Sustiva) 600 mg DAILY PO Last administered on 12/09/16 10:15; Admin Dose 600 MG; Start 11/12/16 at 09:00 Emtricitabine/ Tenofovir (Truvada) 1 tab DAILY PO Last administered on 10:16; Admin Dose 1 TAB; Start 11/12/16 at 09:00 Sucralfate (Carafate) 1 gm QID PO Last administered on 12/09/16 10:15; Admin Dose 1 GM; Start 11/11/16 at 17:00 Valganciclovir (Valcyte) 450 mg Q12 PO Last administered on 12/09/16 10:17; Admin Dose 450 MG; Start 11/11/16 at 21:00 Collagenase (Santyl) 1 applic DAILY TOP Last administered on 12/09/16 10:14; Admin Dose 1 APPLIC; Start 11/12/16 at 13:00 Collagenase (Santyl) 1 applic PRN PRN TOP WOUND CARE; Start 11/12/16 at 12:00 Mesalamine (Delzicol Dr) 800 mg QID PO Last administered on 12/09/16 10:14; Admin Dose 800 MG; Start 11/12/16 at 21:00 Vancomycin HCl (Vancomycin Oral Syringe) 250 mg Q6 PO Last administered on 12/09 06:36; Admin Dose 250 MG; Start 11/12/16 at 19:30 Fluconazole (Diflucan) 100 mg DAILY PO Last administered on 12/09/16 10:16; Admin Dose 100 MG; Start 11/13/16 at 09:00 Lactobacillus Acidophilus (Florajen3 Capsule) 1 each BID PO Last administered on 12/09/16 10:15; Admin Dose 1 EACH; Start 11/13/16 at 21:00 Pantoprazole (Protonix Tab) 40 mg BID@06,18 PO Last administered on 12/09/16 06:36; Admin Dose 40 MG; Start 11/28/16 at 06:00 Metoclopramide HCl (Reglan) 5 mg TID PO Last administered on 12/09/16 10:16; Admin Dose 5 MG; Start 11/27/16 at 21:00 Levetiracetam (Keppra) 500 mg BID PO Last administered on 12/09/16 10:16; Admin Dose 500 MG; Start 11/27/16 at 21:00 Potassium Chloride (Klor-Con 20) 40 meq BID PO Last administered on 12/09/16 10:16; Admin Dose 40 MEQ; Start 11/27/16 at 21:00 Enoxaparin Sodium (Lovenox) 40 mg DAILY SC Last administered on 12/08/16 09:59 ; Admin Dose 40 MG; Start 11/29/16 at 09:00; Status Future Hold Magnesium Oxide (Mag-Ox 400) 400 mg TID PO Last administered on 12/09/16 10:17 ; Admin Dose 400 MG; Start 11/30/16 at 21:00 Metoprolol Tartrate (Lopressor) 12.5 mg BID PO Last administered on 12/09/16 10:17; Admin Dose 12.5 MG; Start 12/06/16 at 21:00 AGUILA BURGOS NP Dec 09, 2016 12:25
--- NOTE | 2016-12-09 21:07 | CONS ---
Date/Time of Note Date/Time of Note DATE: 12/09/16 TIME: 21:06 Assessment/Plan Assessment/Plan Additional Assessment/Plan 1. Severe hyperchloremia with a chloride of 117, unclear etiology. 2. Acute encephalopathy. 3. Status post hemorrhagic shock. 4. Human immunodeficiency virus positive with CD4 count of 157. 5. Positive colitis. 6. Multiple decubitus ulcers. 7. Status post urinary tract infection and sepsis on admission. 8. Depression. 9. Hypomagnesemia PLAN: on PO KCL replacement Electrolytes stable today Bp stable will follow up Consultation Date/Type/Reason Admit Date/Time November 11, 2016 at 15:19 Type of Consultation: NEPHROLOGY Referring Provider: JESUS RUIZ Exam/Review of Systems Vital Signs Vitals Vital Signs Date Time Temp Pulse Resp B/P Pulse Ox O2 Delivery O2 Flow Rate FiO2 12/09/16 20:52 98.9 122 18 106/71 97 Intake and Output 12/08/16 12/08/16 12/09/16 15:00 23:00 07:00 Intake Total 950 ml 1050 ml Output Total 900 ml 650 ml Balance 50 ml 400 ml Exam GENERAL: This is a chronically ill-appearing, cachectic, wasted, middle-aged white woman who is lying comfortably in bed. HEENT: Head atraumatic, normocephalic. Sclerae anicteric. Buccal mucosa dry. NECK: Supple. CHEST: Rise symmetrical. Breath sounds diminished. HEART: S1, S2. ABDOMEN: Soft. Bowel tones present. EXTREMITIES: Without cyanosis. Bilateral edema. Results Result Diagram: 12/09/16 0623 12/09/16 0623 Results 24 hrs Laboratory Tests Test 12/09/16 06:23 12/09/16 07:20 White Blood Count 7.4 Red Blood Count 3.60 #L Hemoglobin 10.2 #L Hematocrit 32.2 #L Mean Corpuscular Volume 89.4 Mean Corpuscular Hemoglobin 28.3 L Mean Corpuscular Hemoglobin Concent 31.7 L Red Cell Distribution Width 18.5 H Platelet Count 275 Mean Platelet Volume 8.3 Neutrophils % 69.0 Lymphocytes % 17.0 Monocytes % 4.0 Basophils % 1.0 Metamyelocytes % 4.0 H Myelocytes % 3.0 H Promyelocytes % 2.0 H Neutrophils # 5.1 Lymphocytes # 1.3 Monocytes # 0.3 Basophils # 0.1 Metamyelocytes # 0.3 Myelocytes # 0.2 Promyelocytes # 0.1 Differential Comment MANUAL DIFF Sodium Level 136 Potassium Level 4.7 Chloride Level 104 Carbon Dioxide Level 29 Anion Gap 8 Blood Urea Nitrogen 20 Creatinine 0.56 Glucose Level 95 Calcium Level 8.4 Phosphorus Level 3.6 Magnesium Level 2.3 Lab Scanned Report BLOOD TRANSFUSION Medications Medications Current Medications Ondansetron HCl (Zofran Inj) 4 mg Q6H PRN IV NAUSEA AND/OR VOMITING Last administered on 12/01/16 09:59; Admin Dose 4 MG; Start 11/11/16 at 16:00 Acetaminophen (Tylenol Tab) 650 mg Q6H PRN PO PAIN LEVEL 1-3 OR FEVER; Start at 16:00 Magnesium Hydroxide (Milk Of Mag) 30 ml DAILY PRN PO CONSTIPATION; Start at 16:00 Sodium Biphosphate/ Sodium Phosphate (Fleet Enema) 133 ml DAILY PRN [place] CONSTIPATION; Start 11/11/16 at 16:00 Hydralazine HCl (Apresoline) 10 mg Q6H PRN IV ELEVATED BLOOD PRESSURE; Start at 16:00 Nitroglycerin (Nitroglycerin (Sl Tab) 0.4 Mg) 1 tab Q5M PRN SL ANGINA Last administered on 11/11/16 23:25; Admin Dose 1 TAB; Start 11/11/16 at 16:00 Efavirenz (Sustiva) 600 mg DAILY PO Last administered on 12/09/16 10:15; Admin Dose 600 MG; Start 11/12/16 at 09:00 Emtricitabine/ Tenofovir (Truvada) 1 tab DAILY PO Last administered on 10:16; Admin Dose 1 TAB; Start 11/12/16 at 09:00 Sucralfate (Carafate) 1 gm QID PO Last administered on 12/09/16 17:49; Admin Dose 1 GM; Start 11/11/16 at 17:00 Valganciclovir (Valcyte) 450 mg Q12 PO Last administered on 12/09/16 10:17; Admin Dose 450 MG; Start 11/11/16 at 21:00 Collagenase (Santyl) 1 applic DAILY TOP Last administered on 12/09/16 10:14; Admin Dose 1 APPLIC; Start 11/12/16 at 13:00 Collagenase (Santyl) 1 applic PRN PRN TOP WOUND CARE; Start 11/12/16 at 12:00 Mesalamine (Delzicol Dr) 800 mg QID PO Last administered on 12/09/16 17:49; Admin Dose 800 MG; Start 11/12/16 at 21:00 Vancomycin HCl (Vancomycin Oral Syringe) 250 mg Q6 PO Last administered on 12/09 17:49; Admin Dose 250 MG; Start 11/12/16 at 19:30 Fluconazole (Diflucan) 100 mg DAILY PO Last administered on 12/09/16 10:16; Admin Dose 100 MG; Start 11/13/16 at 09:00 Lactobacillus Acidophilus (Florajen3 Capsule) 1 each BID PO Last administered on 12/09/16 10:15; Admin Dose 1 EACH; Start 11/13/16 at 21:00 Pantoprazole (Protonix Tab) 40 mg BID@,18 PO Last administered on 12/09/16 17:49; Admin Dose 40 MG; Start 11/28/16 at 06:00 Metoclopramide HCl (Reglan) 5 mg TID PO Last administered on 12/09/16 13:00; Admin Dose 5 MG; Start 11/27/16 at 21:00 Levetiracetam (Keppra) 500 mg BID PO Last administered on 12/09/16 10:16; Admin Dose 500 MG; Start 11/27/16 at 21:00 Potassium Chloride (Klor-Con 20) 40 meq BID PO Last administered on 12/09/16 10:16; Admin Dose 40 MEQ; Start 11/27/16 at 21:00 Enoxaparin Sodium (Lovenox) 40 mg DAILY SC Last administered on 12/08/16 09:59 ; Admin Dose 40 MG; Start 11/29/16 at 09:00; Status Future Hold Magnesium Oxide (Mag-Ox 400) 400 mg TID PO Last administered on 12/09/16 12:47 ; Admin Dose 400 MG; Start 11/30/16 at 21:00 Metoprolol Tartrate (Lopressor) 12.5 mg BID PO Last administered on 12/09/16 10:17; Admin Dose 12.5 MG; Start 12/06/16 at 21:00 ASHISH MENDOZA MD Dec 09, 2016 21:07
[2016-12-10] VITALS (13 sets, daily range): BP systolic 98–128; BP diastolic 55–90; PULSE 84–110; RESP 16–20
[2016-12-10] MEDS: VANCOMYCIN HCL 250 MG/5ML POSYG PO SCH ×2 (00:49→05:17)
[2016-12-10] MEDS: PANTOPRAZOLE (EC) 40 MG TAB PO SCH ×2 (05:17→17:53)
[2016-12-10] MEDS: EFAVIRENZ 600 MG TAB PO SCH (09:55)
[2016-12-10] MEDS: VALGANCICLOVIR 450 MG TAB PO SCH (09:55)
[2016-12-10] MEDS: LEVETIRACETAM 500 MG TAB PO SCH ×2 (09:55→22:10)
[2016-12-10] MEDS: MESALAMINE (EC) 400 MG CAP PO SCH ×4 (09:55→22:10)
[2016-12-10] MEDS: L ACIDOPHIL/B LACTIS/B LONGUM CAPSULE PO SCH ×2 (09:55→22:10)
[2016-12-10] MEDS: SUCRALFATE 1 GM TAB PO SCH ×4 (09:56→22:10)
[2016-12-10] MEDS: EMTRICITABINE/TENOFOVIR TAB PO SCH (09:56)
[2016-12-10] MEDS: METOPROLOL 25 MG TAB PO SCH ×2 (09:57→22:11)
[2016-12-10] MEDS: METOCLOPRAMIDE 5 MG TAB PO SCH ×3 (09:58→22:11)
[2016-12-10] MEDS: POTASSIUM CHLORIDE (SR) 20 MEQ TAB PO SCH ×2 (09:58→22:10)
[2016-12-10] MEDS: FLUCONAZOLE 100 MG TAB PO SCH (09:58)
[2016-12-10] MEDS: MAGNESIUM OXIDE 400 MG TAB PO SCH ×3 (09:58→22:10)
[2016-12-10] MEDS: COLLAGENASE 30 GM TUBE TOP SCH (09:59)
--- NOTE | 2016-12-10 12:28 | PN ---
DATE: 12/10/2016 SUBJECTIVE: The patient is sleeping. No fevers. No events overnight, no vomiting or diarrhea. LABORATORIES: WBC yesterday was 7.4, no shift, no bands. BUN 20, creatinine 0.56. INDWELLINGS: Hughes catheter, PICC line. ANTIMICROBIALS: The patient remains on: 1. Oral vancomycin. 2. Oral fluconazole. 3. Truvada. 4. Sustiva. 5. Valcyte. PHYSICAL EXAMINATION: GENERAL: Cachectic, well-developed, middle-aged white woman who is in no distress. HEENT: Head atraumatic, normocephalic. Sclerae anicteric. Buccal mucosa dry. NECK: Supple. CHEST: Rise symmetrical. Breath sounds diminished to bases. HEART: S1, S2. ABDOMEN: Soft, bowel tones present. EXTREMITIES: Without cyanosis. ASSESSMENT: 1. Status post septic shock secondary to urinary tract infection and pneumonia. 2. Status post colitis. 3. Human immunodeficiency virus disease with CD4 count 241 on 11/25/2016. 4. Multiple chronic wounds. 5. Cachexia with severe protein calorie malnutrition. 6. History of Inocencia esophagitis. 7. Status post seizure with postictal encephalopathy. PLAN: The patient remains stable. We are going to discontinue oral vancomycin and Valcyte, keep he r on other antimicrobials and antiretrovirals. Continue physical therapy. Optimize nutrition and f ollow recommendations of consultants. Dictated By: AGUILA BURGOS SUPERVISOR DRYING for GINNY ESPINOZA MD NI/NTS Conf#: [id number] DID#: [id number]
--- NOTE | 2016-12-10 12:54 | PN ---
DATE: 12/10/2016 SUBJECTIVE: Chart reviewed. The patient currently stable, in no distress. PHYSICAL EXAMINATION: VITAL SIGNS: Blood pressure 98/55, pulse 86, respirations 18, temperature 98, saturating 97%. HEENT: Pupils are equal and react to light. Anicteric sclerae. NECK: Supple, no JVD noted, no cervical adenopathy, no carotid bruits heard. LUNGS: Fair breath sounds bilaterally. CARDIOVASCULAR: S1, S2 normal. ABDOMEN: Soft, nontender. No organomegaly or masses noted. EXTREMITIES: No clubbing or cyanosis noted. NEUROLOGICAL: Awake. LABORATORY DATA: No labs today. IMPRESSION: 1. Lower gastrointestinal bleed is status post upper and lower endoscopy showing severe ulcerative esophagitis and ulcerative colitis. 2. Severe anemia, status post transfusion. 3. Human immunodeficiency virus positive. 4. Deconditioning. 5. Multiple wounds. 6. History of polysubstance abuse. 7. History of depression. 8. Severe malnutrition. 9. Status post urinary tract infection. 10. Seizure disorder. RECOMMENDATIONS: 1. Continue current treatment. 2. Changes in antibiotics noted as per ID recommendations. 3. Continue mesalamine and Protonix. 4. Follow up labs. 5. Above discussed with the staff. Dictated By: NOE TERAN MD, MA/SHILPA Conf#: [id number] DID#: [id number]
--- NOTE | 2016-12-10 16:28 | CONS ---
Date/Time of Note Date/Time of Note DATE: 12/10/16 TIME: 16:27 Assessment/Plan Assessment/Plan Additional Assessment/Plan 1. Severe hyperchloremia with a chloride of 117, unclear etiology. 2. Acute encephalopathy. 3. Status post hemorrhagic shock. 4. Human immunodeficiency virus positive with CD4 count of 157. 5. Positive colitis. 6. Multiple decubitus ulcers. 7. Status post urinary tract infection and sepsis on admission. 8. Depression. 9. Hypomagnesemia PLAN: on PO KCL replacement Electrolytes stable today Bp stable will follow up Consultation Date/Type/Reason Admit Date/Time November 11, 2016 at 15:19 Type of Consultation: NEPHROLOGY Referring Provider: JESUS RUIZ 24 HR Interval Summary Free Text/Dictation no acute events, BP stable, afebrile Exam/Review of Systems Vital Signs Vitals Vital Signs Date Time Temp Pulse Resp B/P Pulse Ox O2 Delivery O2 Flow Rate FiO2 12/10/16 16:10 106 12/10/16 15:12 97.7 16 102/55 97 12/10/16 00:00 Room Air Intake and Output 12/09/16 12/09/16 12/10/16 15:00 23:00 07:00 Intake Total 980 ml 250 ml Output Total 600 ml 1100 ml Balance 380 ml -850 ml Exam GENERAL: This is a chronically ill-appearing, cachectic, wasted, middle-aged white woman who is lying comfortably in bed. HEENT: Head atraumatic, normocephalic. Sclerae anicteric. Buccal mucosa dry. NECK: Supple. CHEST: Rise symmetrical. Breath sounds diminished. HEART: S1, S2. ABDOMEN: Soft. Bowel tones present. EXTREMITIES: Without cyanosis. Bilateral edema. Results Result Diagram: 12/09/1662212/09/16622 Medications Medications Current Medications Ondansetron HCl (Zofran Inj) 4 mg Q6H PRN IV NAUSEA AND/OR VOMITING Last administered on 12/01/16t 09:59; Admin Dose 4 MG; Start 11/11/16 at 16:00 Acetaminophen (Tylenol Tab) 650 mg Q6H PRN PO PAIN LEVEL 1-3 OR FEVER; Start at 16:00 Magnesium Hydroxide (Milk Of Mag) 30 ml DAILY PRN PO CONSTIPATION; Start at 16:00 Sodium Biphosphate/ Sodium Phosphate (Fleet Enema) 133 ml DAILY PRN [place] CONSTIPATION; Start 11/11/16 at 16:00 Hydralazine HCl (Apresoline) 10 mg Q6H PRN IV ELEVATED BLOOD PRESSURE; Start at 16:00 Nitroglycerin (Nitroglycerin (Sl Tab) 0.4 Mg) 1 tab Q5M PRN SL ANGINA Last administered on 11/11/16 23:25; Admin Dose 1 TAB; Start 11/11/16 at 16:00 Efavirenz (Sustiva) 600 mg DAILY PO Last administered on 12/10/16 09:55; Admin Dose 600 MG; Start 11/12/16 at 09:00 Emtricitabine/ Tenofovir (Truvada) 1 tab DAILY PO Last administered on 09:56; Admin Dose 1 TAB; Start 11/12/16 at 09:00 Sucralfate (Carafate) 1 gm QID PO Last administered on 12/10/16 12:47; Admin Dose 1 GM; Start 11/11/16 at 17:00 Collagenase (Santyl) 1 applic DAILY TOP Last administered on 12/10/16 09:59; Admin Dose 1 APPLIC; Start 11/12/16 at 13:00 Collagenase (Santyl) 1 applic PRN PRN TOP WOUND CARE; Start 11/12/16 at 12:00 Mesalamine (Delzicol Dr) 800 mg QID PO Last administered on 12/10/16 12:47; Admin Dose 800 MG; Start 11/12/16 at 21:00 Fluconazole (Diflucan) 100 mg DAILY PO Last administered on 12/10/16 09:58; Admin Dose 100 MG; Start 11/13/16 at 09:00 Lactobacillus Acidophilus (Florajen3 Capsule) 1 each BID PO Last administered on 12/10/16 09:55; Admin Dose 1 EACH; Start 11/13/16 at 21:00 Pantoprazole (Protonix Tab) 40 mg BID@18 PO Last administered on 12/10/16 05:17; Admin Dose 40 MG; Start 11/28/16 at 06:00 Metoclopramide HCl (Reglan) 5 mg TID PO Last administered on 12/10/16 12:48; Admin Dose 5 MG; Start 11/27/16 at 21:00 Levetiracetam (Keppra) 500 mg BID PO Last administered on 12/10/16 09:55; Admin Dose 500 MG; Start 11/27/16 at 21:00 Potassium Chloride (Klor-Con 20) 40 meq BID PO Last administered on 12/10/16 09:58; Admin Dose 40 MEQ; Start 11/27/16 at 21:00 Enoxaparin Sodium (Lovenox) 40 mg DAILY SC Last administered on 12/08/16 09:59 ; Admin Dose 40 MG; Start 11/29/16 at 09:00; Status Future Hold Magnesium Oxide (Mag-Ox 400) 400 mg TID PO Last administered on 12/10/16 12:47 ; Admin Dose 400 MG; Start 11/30/16 at 21:00 Metoprolol Tartrate (Lopressor) 12.5 mg BID PO Last administered on 12/10/16 09:57; Admin Dose 12.5 MG; Start 12/06/16 at 21:00 ASHISH MENDOZA MD Dec 10, 2016 16:28
[2016-12-11] VITALS (11 sets, daily range): BP systolic 114–133; BP diastolic 77–99; PULSE 81–117; RESP 16–19
[2016-12-11] MEDS: PANTOPRAZOLE (EC) 40 MG TAB PO SCH ×2 (05:45→18:07)
[2016-12-11] MEDS: FLUCONAZOLE 100 MG TAB PO SCH (08:59)
[2016-12-11] MEDS: MESALAMINE (EC) 400 MG CAP PO SCH ×4 (08:59→21:25)
[2016-12-11] MEDS: EFAVIRENZ 600 MG TAB PO SCH (08:59)
[2016-12-11] MEDS: EMTRICITABINE/TENOFOVIR TAB PO SCH (08:59)
[2016-12-11] MEDS: MAGNESIUM OXIDE 400 MG TAB PO SCH ×3 (08:59→21:25)
[2016-12-11] MEDS: METOCLOPRAMIDE 5 MG TAB PO SCH ×3 (08:59→21:25)
[2016-12-11] MEDS: LEVETIRACETAM 500 MG TAB PO SCH ×2 (08:59→21:25)
[2016-12-11] MEDS: L ACIDOPHIL/B LACTIS/B LONGUM CAPSULE PO SCH ×2 (09:00→21:35)
[2016-12-11] MEDS: POTASSIUM CHLORIDE (SR) 20 MEQ TAB PO SCH ×2 (09:03→21:26)
[2016-12-11] MEDS: SUCRALFATE 1 GM TAB PO SCH ×4 (09:03→21:24)
[2016-12-11] MEDS: METOPROLOL 25 MG TAB PO SCH ×2 (09:04→21:27)
[2016-12-11] MEDS: COLLAGENASE 30 GM TUBE TOP SCH (09:04)
--- NOTE | 2016-12-11 14:20 | CONS ---
Date/Time of Note Date/Time of Note DATE: 12/11/16 TIME: 14:18 Assessment/Plan Assessment/Plan Chief Complaint/Hosp Course SUBJECTIVE: The patient is sleeping. No fevers. No events overnight, no vomiting or diarrhea. LABORATORIES: WBC yesterday was 7.4, no shift, no bands. BUN 20, creatinine 0.56. INDWELLINGS: Hughes catheter, PICC line. ANTIMICROBIALS: 2. Fluconazole. 3. Truvada. 4. Sustiva. PHYSICAL EXAMINATION: GENERAL: Cachectic, well-developed, middle-aged white woman who is alert, in no distress. HEENT: Head atraumatic, normocephalic. Sclerae anicteric. Buccal mucosa dry. NECK: Supple. CHEST: Rise symmetrical. Breath sounds diminished to bases. HEART: S1, S2. ABDOMEN: Soft, bowel tones present. EXTREMITIES: Without cyanosis. ASSESSMENT: 1. Status post septic shock secondary to urinary tract infection and pneumonia. 2. Status post colitis. 3. Human immunodeficiency virus disease with CD4 count 241 on 11/25/2016. 4. Multiple chronic wounds. 5. Cachexia with severe protein calorie malnutrition. 6. History of Inocencia esophagitis. 7. Status post seizure with postictal encephalopathy. PLAN: The patient remains stable. Continue present care, MAYERS, may need PEG placement for failure to thrive [facility] staff Problems: Consultation Date/Type/Reason Admit Date/Time November 11, 2016 at 15:19 Initial Consult Date 11/11/16 Type of Consultation: ID Referring Provider: JESUS RUIZ Exam/Review of Systems Vital Signs Vitals Vital Signs Date Time Temp Pulse Resp B/P Pulse Ox O2 Delivery O2 Flow Rate FiO2 12/11/16 12:01 92 12/11/16 11:53 99.1 18 124/79 98 12/10/16 00:00 Room Air Intake and Output 12/10/16 12/10/16 12/11/16 15:00 23:00 07:00 Intake Total 1020 ml 250 ml Output Total 450 ml 1400 ml Balance 570 ml -1150 ml Results Result Diagram: 12/09/1662212/09/16622 Medications Medications Current Medications Ondansetron HCl (Zofran Inj) 4 mg Q6H PRN IV NAUSEA AND/OR VOMITING Last administered on 12/01/16t 09:59; Admin Dose 4 MG; Start 5/23/17 at 16:00 Acetaminophen (Tylenol Tab) 650 mg Q6H PRN PO PAIN LEVEL 1-3 OR FEVER; Start at 16:00 Magnesium Hydroxide (Milk Of Mag) 30 ml DAILY PRN PO CONSTIPATION; Start at 16:00 Sodium Biphosphate/ Sodium Phosphate (Fleet Enema) 133 ml DAILY PRN [place] CONSTIPATION; Start 11/11/16 at 16:00 Hydralazine HCl (Apresoline) 10 mg Q6H PRN IV ELEVATED BLOOD PRESSURE; Start at 16:00 Nitroglycerin (Nitroglycerin (Sl Tab) 0.4 Mg) 1 tab Q5M PRN SL ANGINA Last administered on 11/11/16 23:25; Admin Dose 1 TAB; Start 11/11/16 at 16:00 Efavirenz (Sustiva) 600 mg DAILY PO Last administered on 12/11/16 08:59; Admin Dose 600 MG; Start 11/12/16 at 09:00 Emtricitabine/ Tenofovir (Truvada) 1 tab DAILY PO Last administered on 08:59; Admin Dose 1 TAB; Start 11/12/16 at 09:00 Sucralfate (Carafate) 1 gm QID PO Last administered on 12/11/16 09:03; Admin Dose 1 GM; Start 11/11/16 at 17:00 Collagenase (Santyl) 1 applic DAILY TOP Last administered on 12/11/16 09:04; Admin Dose 1 APPLIC; Start 11/12/16 at 13:00 Collagenase (Santyl) 1 applic PRN PRN TOP WOUND CARE; Start 11/12/16 at 12:00 Mesalamine (Delzicol Dr) 800 mg QID PO Last administered on 12/11/16 08:59; Admin Dose 800 MG; Start 11/12/16 at 21:00 Fluconazole (Diflucan) 100 mg DAILY PO Last administered on 12/11/16 08:59; Admin Dose 100 MG; Start 11/13/16 at 09:00 Lactobacillus Acidophilus (Florajen3 Capsule) 1 each BID PO Last administered on 12/10/16 22:10; Admin Dose 1 EACH; Start 11/13/16 at 21:00 Pantoprazole (Protonix Tab) 40 mg BID@06,18 PO Last administered on 12/11/16 05:45; Admin Dose 40 MG; Start 11/28/16 at 06:00 Metoclopramide HCl (Reglan) 5 mg TID PO Last administered on 12/11/16 08:59; Admin Dose 5 MG; Start 11/27/16 at 21:00 Levetiracetam (Keppra) 500 mg BID PO Last administered on 12/11/16 08:59; Admin Dose 500 MG; Start 11/27/16 at 21:00 Potassium Chloride (Klor-Con 20) 40 meq BID PO Last administered on 12/11/16 09:03; Admin Dose 40 MEQ; Start 11/27/16 at 21:00 Enoxaparin Sodium (Lovenox) 40 mg DAILY SC Last administered on 12/08/16 09:59 ; Admin Dose 40 MG; Start 11/29/16 at 09:00; Status Future Hold Magnesium Oxide (Mag-Ox 400) 400 mg TID PO Last administered on 12/11/16 08:59 ; Admin Dose 400 MG; Start 11/30/16 at 21:00 Metoprolol Tartrate (Lopressor) 12.5 mg BID PO Last administered on 12/11/16 09:04; Admin Dose 12.5 MG; Start 12/06/16 at 21:00 AGUILA BURGOS NP Dec 11, 2016 14:20
--- NOTE | 2016-12-11 14:38 | PN ---
DATE: 12/11/2016 SUBJECTIVE: Chart reviewed. The patient on room air is saturating 98% and does not appear in acute distress. PHYSICAL EXAMINATION: VITAL SIGNS: Blood pressure 124/79, pulse 98, respirations 18, temperature 99.1. HEENT: Pupils are equal and reactive to light. Anicteric sclerae. NECK: Supple. No JVD noted, no cervical adenopathy noted, no carotid bruits heard. LUNGS: Fair breath sounds bilaterally. CARDIOVASCULAR: S1, S2 normal. ABDOMEN: Soft, nontender. No organomegaly or masses noted. EXTREMITIES: No clubbing, cyanosis, or edema noted. NEUROLOGICAL: Awake. IMPRESSION: 1. Lower gastrointestinal bleed, status post upper and lower endoscopy, showing severe ulcerative e sophagitis and ulcerative colitis. 2. Severe anemia, requiring transfusion; however, hemoglobin now stable. 3. Human immunodeficiency virus positive. 4. Deconditioning. 5. Multiple wounds. 6. History of polysubstance abuse. 7. History of depression. 8. Severe malnutrition. 9. Status post urinary tract infection. 10. Seizure disorder. RECOMMENDATIONS: 1. Continue the current treatment. 2. Continue antibiotics per ID recommendations. 3. Continue mesalamine and Protonix. 4. Follow up labs. 5. Gastrointestinal and nephrology followup. 6. Above discussed with the staff. Dictated By: NOE TERAN MD, MA/SHILPA Conf#: [id number] DID#: [id number]
--- NOTE | 2016-12-11 19:02 | CONS ---
Date/Time of Note Date/Time of Note DATE: 12/11/16 TIME: 19:01 Assessment/Plan Assessment/Plan Additional Assessment/Plan 1. Severe hyperchloremia with a chloride of 117, unclear etiology. 2. Acute encephalopathy. 3. Status post hemorrhagic shock. 4. Human immunodeficiency virus positive with CD4 count of 157. 5. Positive colitis. 6. Multiple decubitus ulcers. 7. Status post urinary tract infection and sepsis on admission. 8. Depression. 9. Hypomagnesemia PLAN: on PO KCL replacement Electrolytes stable today Bp stable will follow up Consultation Date/Type/Reason Admit Date/Time November 11, 2016 at 15:19 Type of Consultation: ID Referring Provider: JESUS RUIZ Exam/Review of Systems Vital Signs Vitals Vital Signs Date Time Temp Pulse Resp B/P Pulse Ox O2 Delivery O2 Flow Rate FiO2 12/11/16 16:01 112 12/11/16 15:47 97.2 19 122/89 98 12/10/16 00:00 Room Air Intake and Output 12/10/16 12/10/16 12/11/16 15:00 23:00 07:00 Intake Total 1020 ml 250 ml Output Total 450 ml 1400 ml Balance 570 ml -1150 ml Exam GENERAL: This is a chronically ill-appearing, cachectic, wasted, middle-aged white woman who is lying comfortably in bed. HEENT: Head atraumatic, normocephalic. Sclerae anicteric. Buccal mucosa dry. NECK: Supple. CHEST: Rise symmetrical. Breath sounds diminished. HEART: S1, S2. ABDOMEN: Soft. Bowel tones present. EXTREMITIES: Without cyanosis. Bilateral edema. Results Result Diagram: 12/09/1662212/09/16622 Medications Medications Current Medications Ondansetron HCl (Zofran Inj) 4 mg Q6H PRN IV NAUSEA AND/OR VOMITING Last administered on 12/01/16t 09:59; Admin Dose 4 MG; Start 11/11/16 at 16:00 Acetaminophen (Tylenol Tab) 650 mg Q6H PRN PO PAIN LEVEL 1-3 OR FEVER; Start at 16:00 Magnesium Hydroxide (Milk Of Mag) 30 ml DAILY PRN PO CONSTIPATION; Start at 16:00 Sodium Biphosphate/ Sodium Phosphate (Fleet Enema) 133 ml DAILY PRN [place] CONSTIPATION; Start 11/11/16 at 16:00 Hydralazine HCl (Apresoline) 10 mg Q6H PRN IV ELEVATED BLOOD PRESSURE; Start at 16:00 Nitroglycerin (Nitroglycerin (Sl Tab) 0.4 Mg) 1 tab Q5M PRN SL ANGINA Last administered on 11/11/16 23:25; Admin Dose 1 TAB; Start 11/11/16 at 16:00 Efavirenz (Sustiva) 600 mg DAILY PO Last administered on 12/11/16 08:59; Admin Dose 600 MG; Start 11/12/16 at 09:00 Emtricitabine/ Tenofovir (Truvada) 1 tab DAILY PO Last administered on 08:59; Admin Dose 1 TAB; Start 11/12/16 at 09:00 Sucralfate (Carafate) 1 gm QID PO Last administered on 12/11/16 18:07; Admin Dose 1 GM; Start 11/11/16 at 17:00 Collagenase (Santyl) 1 applic DAILY TOP Last administered on 12/11/16 09:04; Admin Dose 1 APPLIC; Start 11/12/16 at 13:00 Collagenase (Santyl) 1 applic PRN PRN TOP WOUND CARE; Start 11/12/16 at 12:00 Mesalamine (Delzicol Dr) 800 mg QID PO Last administered on 12/11/16 18:07; Admin Dose 800 MG; Start 11/12/16 at 21:00 Fluconazole (Diflucan) 100 mg DAILY PO Last administered on 12/11/16 08:59; Admin Dose 100 MG; Start 11/13/16 at 09:00 Lactobacillus Acidophilus (Florajen3 Capsule) 1 each BID PO Last administered on 12/10/16 22:10; Admin Dose 1 EACH; Start 11/13/16 at 21:00 Pantoprazole (Protonix Tab) 40 mg BID@18 PO Last administered on 12/11/16 18:07; Admin Dose 40 MG; Start 11/28/16 at 06:00 Metoclopramide HCl (Reglan) 5 mg TID PO Last administered on 12/11/16 08:59; Admin Dose 5 MG; Start 11/27/16 at 21:00 Levetiracetam (Keppra) 500 mg BID PO Last administered on 12/11/16 08:59; Admin Dose 500 MG; Start 11/27/16 at 21:00 Potassium Chloride (Klor-Con 20) 40 meq BID PO Last administered on 12/11/16 09:03; Admin Dose 40 MEQ; Start 11/27/16 at 21:00 Enoxaparin Sodium (Lovenox) 40 mg DAILY SC Last administered on 12/08/16 09:59 ; Admin Dose 40 MG; Start 11/29/16 at 09:00; Status Future Hold Magnesium Oxide (Mag-Ox 400) 400 mg TID PO Last administered on 12/11/16 08:59 ; Admin Dose 400 MG; Start 11/30/16 at 21:00 Metoprolol Tartrate (Lopressor) 12.5 mg BID PO Last administered on 12/11/16 09:04; Admin Dose 12.5 MG; Start 12/06/16 at 21:00 ASHISH MENDOZA MD Dec 11, 2016 19:02
[2016-12-12] VITALS (11 sets, daily range): BP systolic 115–136; BP diastolic 68–84; PULSE 12–105; RESP 16–20
[2016-12-12] MEDS: PANTOPRAZOLE (EC) 40 MG TAB PO SCH ×2 (06:00→17:21)
[2016-12-12] MEDS: L ACIDOPHIL/B LACTIS/B LONGUM CAPSULE PO SCH ×2 (09:00→21:30)
[2016-12-12] MEDS: LEVETIRACETAM 500 MG TAB PO SCH ×2 (09:24→21:30)
[2016-12-12] MEDS: METOCLOPRAMIDE 5 MG TAB PO SCH ×3 (09:24→21:30)
[2016-12-12] MEDS: FLUCONAZOLE 100 MG TAB PO SCH (09:24)
[2016-12-12] MEDS: MAGNESIUM OXIDE 400 MG TAB PO SCH ×3 (09:24→21:32)
[2016-12-12] MEDS: MESALAMINE (EC) 400 MG CAP PO SCH ×4 (09:24→21:30)
[2016-12-12] MEDS: EMTRICITABINE/TENOFOVIR TAB PO SCH (09:24)
[2016-12-12] MEDS: METOPROLOL 25 MG TAB PO SCH ×2 (09:25→21:31)
[2016-12-12] MEDS: SUCRALFATE 1 GM TAB PO SCH ×4 (09:32→22:09)
[2016-12-12] MEDS: POTASSIUM CHLORIDE (SR) 20 MEQ TAB PO SCH ×2 (09:32→21:31)
[2016-12-12] MEDS: EFAVIRENZ 600 MG TAB PO SCH (09:32)
[2016-12-12] MEDS: COLLAGENASE 30 GM TUBE TOP SCH (09:32)
--- NOTE | 2016-12-12 13:19 | CONS ---
Date/Time of Note Date/Time of Note DATE: 12/12/16 TIME: 13:18 Assessment/Plan Assessment/Plan Chief Complaint/Hosp Course SUBJECTIVE: No events overnight INDWELLINGS: Hughes catheter, PICC line. ANTIMICROBIALS: 2. Fluconazole. 3. Truvada. 4. Sustiva. PHYSICAL EXAMINATION: GENERAL: Cachectic, well-developed, middle-aged white woman who is alert, in no distress. HEENT: Head atraumatic, normocephalic. Sclerae anicteric. Buccal mucosa dry. NECK: Supple. CHEST: Rise symmetrical. Breath sounds diminished to bases. HEART: S1, S2. ABDOMEN: Soft, bowel tones present. EXTREMITIES: Without cyanosis. ASSESSMENT: 1. Status post septic shock secondary to urinary tract infection and pneumonia. 2. Status post colitis. 3. Human immunodeficiency virus disease with CD4 count 241 on 11/25/2016. 4. Multiple chronic wounds. 5. Cachexia with severe protein calorie malnutrition. 6. History of Inocencia esophagitis. 7. Status post seizure with postictal encephalopathy. PLAN: The patient remains stable. Continue present care, MAYERS, optimize nutrition, may need PEG placement for failure to thrive DW staff Problems: Consultation Date/Type/Reason Admit Date/Time November 11, 2016 at 15:19 Initial Consult Date 11/11/16 Type of Consultation: ID Referring Provider: JESUS RUIZ Exam/Review of Systems Vital Signs Vitals Vital Signs Date Time Temp Pulse Resp B/P Pulse Ox O2 Delivery O2 Flow Rate FiO2 12/12/16 12:11 93 12/12/16 11:33 98.2 18 116/74 97 12/10/16 00:00 Room Air Intake and Output 12/11/16 12/11/16 12/12/16 15:00 23:00 07:00 Intake Total 890 ml 240 ml Output Total 850 ml Balance 890 ml -610 ml Results Result Diagram: 12/09/1662212/09/16622 Medications Medications Current Medications Ondansetron HCl (Zofran Inj) 4 mg Q6H PRN IV NAUSEA AND/OR VOMITING Last administered on 12/01/16t 09:59; Admin Dose 4 MG; Start 11/11/16 at 16:00 Acetaminophen (Tylenol Tab) 650 mg Q6H PRN PO PAIN LEVEL 1-3 OR FEVER; Start at 16:00 Magnesium Hydroxide (Milk Of Mag) 30 ml DAILY PRN PO CONSTIPATION; Start at 16:00 Sodium Biphosphate/ Sodium Phosphate (Fleet Enema) 133 ml DAILY PRN [place] CONSTIPATION; Start 11/11/16 at 16:00 Hydralazine HCl (Apresoline) 10 mg Q6H PRN IV ELEVATED BLOOD PRESSURE; Start at 16:00 Nitroglycerin (Nitroglycerin (Sl Tab) 0.4 Mg) 1 tab Q5M PRN SL ANGINA Last administered on 11/11/16 23:25; Admin Dose 1 TAB; Start 11/11/16 at 16:00 Efavirenz (Sustiva) 600 mg DAILY PO Last administered on 12/12/16 09:32; Admin Dose 600 MG; Start 11/12/16 at 09:00 Emtricitabine/ Tenofovir (Truvada) 1 tab DAILY PO Last administered on 09:24; Admin Dose 1 TAB; Start 11/12/16 at 09:00 Sucralfate (Carafate) 1 gm QID PO Last administered on 12/12/16 12:41; Admin Dose 1 GM; Start 11/11/16 at 17:00 Collagenase (Santyl) 1 applic DAILY TOP Last administered on 12/12/16 09:32; Admin Dose 1 APPLIC; Start 11/12/16 at 13:00 Collagenase (Santyl) 1 applic PRN PRN TOP WOUND CARE; Start 11/12/16 at 12:00 Mesalamine (Delzicol Dr) 800 mg QID PO Last administered on 12/12/16 12:41; Admin Dose 800 MG; Start 11/12/16 at 21:00 Fluconazole (Diflucan) 100 mg DAILY PO Last administered on 12/12/16 09:24; Admin Dose 100 MG; Start 11/13/16 at 09:00 Lactobacillus Acidophilus (Florajen3 Capsule) 1 each BID PO Last administered on 12/11/16 21:35; Admin Dose 1 EACH; Start 11/13/16 at 21:00 Pantoprazole (Protonix Tab) 40 mg BID@,18 PO Last administered on 12/12/16 06:00; Admin Dose 40 MG; Start 11/28/16 at 06:00 Metoclopramide HCl (Reglan) 5 mg TID PO Last administered on 12/12/16 12:41; Admin Dose 5 MG; Start 11/27/16 at 21:00 Levetiracetam (Keppra) 500 mg BID PO Last administered on 12/12/16 09:24; Admin Dose 500 MG; Start 11/27/16 at 21:00 Potassium Chloride (Klor-Con 20) 40 meq BID PO Last administered on 12/12/16 09:32; Admin Dose 40 MEQ; Start 11/27/16 at 21:00 Enoxaparin Sodium (Lovenox) 40 mg DAILY SC Last administered on 12/08/16 09:59 ; Admin Dose 40 MG; Start 11/29/16 at 09:00; Status Future Hold Magnesium Oxide (Mag-Ox 400) 400 mg TID PO Last administered on 12/12/16 12:44 ; Admin Dose 400 MG; Start 11/30/16 at 21:00 Metoprolol Tartrate (Lopressor) 12.5 mg BID PO Last administered on 12/12/16 09:25; Admin Dose 12.5 MG; Start 12/06/16 at 21:00 AGUILA BURGOS NP Dec 12, 2016 13:19
--- NOTE | 2016-12-12 14:06 | PN ---
DATE: 12/12/2016 SUBJECTIVE: Chart reviewed. The patient does not appear in acute distress, currently saturating 97 %. PHYSICAL EXAMINATION: VITAL SIGNS: Blood pressure 116/74, pulse 105, respirations 18, temperature 98.2. HEENT: Pupils are equal and react to light. NECK: Supple. No JVD noted, no cervical adenopathy noted, no carotid bruits heard. LUNGS: Fair breath sounds bilaterally. CARDIOVASCULAR: S1, S2 normal. ABDOMEN: Soft, nontender. No organomegaly or masses noted. EXTREMITIES: No clubbing, cyanosis, or edema. NEUROLOGICAL: Awake. IMPRESSION: 1. Status post lower gastrointestinal bleed. 2. Status post upper and lower endoscopy, showing severe ulcerative esophagitis and ulcerative coli tis. 3. Anemia, requiring transfusion. 4. Human immunodeficiency virus positive. 5. Deconditioning. 6. Multiple wounds. 7. History of polysubstance abuse. 8. History of depression. 9. Severe malnutrition. 10. Status post urinary tract infection. 11. Seizure disorder. RECOMMENDATIONS: 1. Continue the current treatment. 2. Continue antibiotics per ID. 3. Continue mesalamine and Protonix. 4. Follow up labs 5. Gastrointestinal and nephrology followup. 6. Above discussed with the staff. Dictated By: NOE TERAN MD, MA/SHILPA Conf#: [id number] DID#: [id number]
--- NOTE | 2016-12-12 16:58 | CONS ---
Date/Time of Note Date/Time of Note DATE: 12/12/16 TIME: 16:56 Assessment/Plan Assessment/Plan Additional Assessment/Plan 1. Severe hyperchloremia with a chloride of 117, unclear etiology. 2. Acute encephalopathy. 3. Status post hemorrhagic shock. 4. Human immunodeficiency virus positive with CD4 count of 157. 5. Positive colitis. 6. Multiple decubitus ulcers. 7. Status post urinary tract infection and sepsis on admission. 8. Depression. 9. Hypomagnesemia- s/p replacement PLAN: on PO KCL replacement Electrolytes stable today , mag nromal Bp stable will follow up Consultation Date/Type/Reason Admit Date/Time November 11, 2016 at 15:19 Type of Consultation: NEPHROLOGY Referring Provider: JESUS RUIZ Exam/Review of Systems Vital Signs Vitals Vital Signs Date Time Temp Pulse Resp B/P Pulse Ox O2 Delivery O2 Flow Rate FiO2 12/12/16 16:06 12 12/12/16 15:53 98.6 17 122/83 98 12/10/16 00:00 Room Air Intake and Output 12/11/16 12/11/16 12/12/16 15:00 23:00 07:00 Intake Total 890 ml 240 ml Output Total 850 ml Balance 890 ml -610 ml Exam GENERAL: This is a chronically ill-appearing, cachectic, wasted, middle-aged white woman who is lying comfortably in bed. HEENT: Head atraumatic, normocephalic. Sclerae anicteric. Buccal mucosa dry. NECK: Supple. CHEST: Rise symmetrical. Breath sounds diminished. HEART: S1, S2. ABDOMEN: Soft. Bowel tones present. EXTREMITIES: Without cyanosis. Bilateral edema. Results Result Diagram: 12/09/1662212/09/16622 Medications Medications Current Medications Ondansetron HCl (Zofran Inj) 4 mg Q6H PRN IV NAUSEA AND/OR VOMITING Last administered on 12/01/16t 09:59; Admin Dose 4 MG; Start 11/11/16 at 16:00 Acetaminophen (Tylenol Tab) 650 mg Q6H PRN PO PAIN LEVEL 1-3 OR FEVER; Start at 16:00 Magnesium Hydroxide (Milk Of Mag) 30 ml DAILY PRN PO CONSTIPATION; Start at 16:00 Sodium Biphosphate/ Sodium Phosphate (Fleet Enema) 133 ml DAILY PRN [place] CONSTIPATION; Start 11/11/16 at 16:00 Hydralazine HCl (Apresoline) 10 mg Q6H PRN IV ELEVATED BLOOD PRESSURE; Start at 16:00 Nitroglycerin (Nitroglycerin (Sl Tab) 0.4 Mg) 1 tab Q5M PRN SL ANGINA Last administered on 11/11/16 23:25; Admin Dose 1 TAB; Start 11/11/16 at 16:00 Efavirenz (Sustiva) 600 mg DAILY PO Last administered on 12/12/16 09:32; Admin Dose 600 MG; Start 11/12/16 at 09:00 Emtricitabine/ Tenofovir (Truvada) 1 tab DAILY PO Last administered on 09:24; Admin Dose 1 TAB; Start 11/12/16 at 09:00 Sucralfate (Carafate) 1 gm QID PO Last administered on 12/12/16 12:41; Admin Dose 1 GM; Start 11/11/16 at 17:00 Collagenase (Santyl) 1 applic DAILY TOP Last administered on 12/12/16 09:32; Admin Dose 1 APPLIC; Start 11/12/16 at 13:00 Collagenase (Santyl) 1 applic PRN PRN TOP WOUND CARE; Start 11/12/16 at 12:00 Mesalamine (Delzicol Dr) 800 mg QID PO Last administered on 12/12/16 12:41; Admin Dose 800 MG; Start 11/12/16 at 21:00 Fluconazole (Diflucan) 100 mg DAILY PO Last administered on 12/12/16 09:24; Admin Dose 100 MG; Start 11/13/16 at 09:00 Lactobacillus Acidophilus (Florajen3 Capsule) 1 each BID PO Last administered on 12/11/16 21:35; Admin Dose 1 EACH; Start 11/13/16 at 21:00 Pantoprazole (Protonix Tab) 40 mg BID@18 PO Last administered on 12/12/16 06:00; Admin Dose 40 MG; Start 11/28/16 at 06:00 Metoclopramide HCl (Reglan) 5 mg TID PO Last administered on 12/12/16 12:41; Admin Dose 5 MG; Start 11/27/16 at 21:00 Levetiracetam (Keppra) 500 mg BID PO Last administered on 12/12/16 09:24; Admin Dose 500 MG; Start 11/27/16 at 21:00 Potassium Chloride (Klor-Con 20) 40 meq BID PO Last administered on 12/12/16 09:32; Admin Dose 40 MEQ; Start 11/27/16 at 21:00 Enoxaparin Sodium (Lovenox) 40 mg DAILY SC Last administered on 12/08/16 09:59 ; Admin Dose 40 MG; Start 11/29/16 at 09:00; Status Future Hold Magnesium Oxide (Mag-Ox 400) 400 mg TID PO Last administered on 12/12/16 12:44 ; Admin Dose 400 MG; Start 11/30/16 at 21:00 Metoprolol Tartrate (Lopressor) 12.5 mg BID PO Last administered on 12/12/16 09:25; Admin Dose 12.5 MG; Start 12/06/16 at 21:00 ASHISH MENDOZA MD Dec 12, 2016 16:58
[2016-12-13 04:30] VITALS: BP 104/76; RESP 16
[2016-12-13] MEDS: PANTOPRAZOLE (EC) 40 MG TAB PO SCH ×2 (06:52→17:54)
[2016-12-13 07:32] VITALS: BP 120/80; RESP 17
[2016-12-13 08:59] VITALS: BP 131/90; RESP 19
[2016-12-13] MEDS: LEVETIRACETAM 500 MG TAB PO SCH ×2 (09:02→22:04)
[2016-12-13] MEDS: MAGNESIUM OXIDE 400 MG TAB PO SCH ×3 (09:02→22:11)
[2016-12-13] MEDS: POTASSIUM CHLORIDE (SR) 20 MEQ TAB PO SCH ×2 (09:02→22:04)
[2016-12-13] MEDS: METOCLOPRAMIDE 5 MG TAB PO SCH ×3 (09:02→22:04)
[2016-12-13] MEDS: METOPROLOL 25 MG TAB PO SCH ×2 (09:03→22:05)
[2016-12-13] MEDS: FLUCONAZOLE 100 MG TAB PO SCH (09:03)
[2016-12-13] MEDS: SUCRALFATE 1 GM TAB PO SCH ×4 (09:03→22:04)
[2016-12-13] MEDS: L ACIDOPHIL/B LACTIS/B LONGUM CAPSULE PO SCH ×2 (10:54→22:05)
--- NOTE | 2016-12-13 11:13 | PN ---
Date/Time of Note Date/Time of Note DATE: 12/13/16 TIME: 11:10 Assessment/Plan VTE Prophylaxis VTE Prophylaxis Intervention: other Lines/Catheters [facility] PICC Line Central line still needed: Yes Urinary Cath still in place: Yes Reason Cath still needed: pres ulcer contaminated by urine Assessment/Plan Problems: (1) Ulcerative colitis Status: Acute Comment: Patient is on treatment after the diagnosis has been made. Presently may be responding. This is complicated by the HIV disease Qualifiers: Ulcerative colitis location: ulcerative pancolitis Digestive disease complication type: with rectal bleeding Qualified Code: K51.011 - Ulcerative pancolitis with rectal bleeding (2) Esophagitis, erosive Status: Chronic Comment: She is better on medications to help control this. (3) Cirrhosis of liver Status: Chronic Comment: Noted and stable at this moment. Qualifiers: Hepatic cirrhosis type: other cirrhosis Qualified Code: K74.69 - Other cirrhosis of liver (4) Inocencia esophagitis Status: Chronic Comment: On treatment. (5) HIV disease Status: Chronic Comment: Now on highly active antiretroviral therapy. (6) Chronic active hepatitis C Status: Chronic Comment: Noted. (7) Protein calorie malnutrition Status: Chronic Comment: Attempting give extra oral nutrition. If she does not eat them will have to put in a PEG however given her immune status and liver disease this may be more interesting to do than for other patients Subjective 24 Hr Interval Summary Free Text/Dictation Patient reports that she would like to get up and walk but she has not been able to do so yet. She reports no swallowing symptoms. Constitutional: no complaints (No fevers chills or sweats) Respiratory: no complaints Cardiovascular: no complaints Gastrointestinal: no complaints Genitourinary: no complaints Exam/Review of Systems Vital Signs Vitals Vital Signs Date Time Temp Pulse Resp B/P Pulse Ox O2 Delivery O2 Flow Rate FiO2 12/13/16 08:59 98.2 111 19 131/90 98 12/12/16 23:56 Room Air Intake and Output 12/12/16 12/12/16 12/13/16 15:00 23:00 07:00 Intake Total 500 ml Output Total 500 ml Balance 0 ml Exam Cachectic white female Constitutional: alert, oriented Respiratory: clear to auscultation, normal air movement Cardiovascular: nl pulses, regular rate and rhythm Results Result Diagram: 12/09/16 0623 12/09/16 06 Medications Medications Current Medications Ondansetron HCl (Zofran Inj) 4 mg Q6H PRN IV NAUSEA AND/OR VOMITING Last administered on 12/01/16 09:59; Admin Dose 4 MG; Start 11/11/16 at 16:00 Acetaminophen (Tylenol Tab) 650 mg Q6H PRN PO PAIN LEVEL 1-3 OR FEVER; Start at 16:00 Magnesium Hydroxide (Milk Of Mag) 30 ml DAILY PRN PO CONSTIPATION; Start at 16:00 Sodium Biphosphate/ Sodium Phosphate (Fleet Enema) 133 ml DAILY PRN [place] CONSTIPATION; Start 11/11/16 at 16:00 Hydralazine HCl (Apresoline) 10 mg Q6H PRN IV ELEVATED BLOOD PRESSURE; Start at 16:00 Nitroglycerin (Nitroglycerin (Sl Tab) 0.4 Mg) 1 tab Q5M PRN SL ANGINA Last administered on 11/11/16 23:25; Admin Dose 1 TAB; Start 11/11/16 at 16:00 Efavirenz (Sustiva) 600 mg DAILY PO Last administered on 12/12/16 09:32; Admin Dose 600 MG; Start 11/12/16 at 09:00 Emtricitabine/ Tenofovir (Truvada) 1 tab DAILY PO Last administered on 09:24; Admin Dose 1 TAB; Start 11/12/16 at 09:00 Sucralfate (Carafate) 1 gm QID PO Last administered on 12/13/16 09:03; Admin Dose 1 GM; Start 11/11/16 at 17:00 Collagenase (Santyl) 1 applic DAILY TOP Last administered on 12/12/16 09:32; Admin Dose 1 APPLIC; Start 11/12/16 at 13:00 Collagenase (Santyl) 1 applic PRN PRN TOP WOUND CARE; Start 11/12/16 at 12:00 Mesalamine (Delzicol Dr) 800 mg QID PO Last administered on 12/12/16 21:30; Admin Dose 800 MG; Start 11/12/16 at 21:00 Fluconazole (Diflucan) 100 mg DAILY PO Last administered on 12/13/16 09:03; Admin Dose 100 MG; Start 11/13/16 at 09:00 Lactobacillus Acidophilus (Florajen3 Capsule) 1 each BID PO Last administered on 12/13/16 10:54; Admin Dose 1 EACH; Start 11/13/16 at 21:00 Pantoprazole (Protonix Tab) 40 mg BID@,18 PO Last administered on 12/13/16 06:52; Admin Dose 40 MG; Start 11/28/16 at 06:00 Metoclopramide HCl (Reglan) 5 mg TID PO Last administered on 12/13/16 09:02; Admin Dose 5 MG; Start 11/27/16 at 21:00 Levetiracetam (Keppra) 500 mg BID PO Last administered on 12/13/16 09:02; Admin Dose 500 MG; Start 11/27/16 at 21:00 Potassium Chloride (Klor-Con 20) 40 meq BID PO Last administered on 12/13/16 09:02; Admin Dose 40 MEQ; Start 11/27/16 at 21:00 Enoxaparin Sodium (Lovenox) 40 mg DAILY SC Last administered on 12/08/16 09:59 ; Admin Dose 40 MG; Start 11/29/16 at 09:00; Status Future Hold Magnesium Oxide (Mag-Ox 400) 400 mg TID PO Last administered on 12/13/16 09:02 ; Admin Dose 400 MG; Start 11/30/16 at 21:00 Metoprolol Tartrate (Lopressor) 12.5 mg BID PO Last administered on 12/13/16 09:03; Admin Dose 12.5 MG; Start 12/06/16 at 21:00 SEHLBY GILLIAM MD Dec 13, 2016 11:13
--- NOTE | 2016-12-13 12:28 | PN ---
DATE: 12/13/2016 PULMONARY FOLLOWUP SUBJECTIVE: Chart reviewed. No significant changes. PHYSICAL EXAMINATION: VITAL SIGNS: Blood pressure 131/90, pulse 111, respirations 19, temperature 98.2, saturating 98%. HEENT: Pupils are equal and react to light. NECK: Supple. No JVD noted, no cervical adenopathy noted, no carotid bruits heard. LUNGS: Fair breath sounds bilaterally. CARDIOVASCULAR: S1, S2 normal. ABDOMEN: Soft, nontender. No organomegaly or masses noted. EXTREMITIES: No clubbing, cyanosis, or edema. NEUROLOGICAL: Awake. IMPRESSION: 1. Status post lower gastrointestinal bleed. 2. Status post upper and lower endoscopy, showing severe ulcerative esophagitis and ulcerative coli tis. 3. Anemia, requiring transfusion. 4. Human immunodeficiency virus positive. 5. Deconditioning. 6. Multiple wounds. 7. History of substance abuse. 8. History of depression. 9. Severe malnutrition. 10. Status post urinary tract infection. 11. Seizure disorder. PLAN: 1. Continue the current treatment. 2. Most likely the patient will require a jail facility for rehab. Dictated By: NOE TERAN MD, MA/SHILPA Conf#: [id number] DID#: [id number]
--- NOTE | 2016-12-13 13:08 | CONS ---
Date/Time of Note Date/Time of Note DATE: 12/13/16 TIME: 13:07 Assessment/Plan Assessment/Plan Additional Assessment/Plan 1. Severe hyperchloremia with a chloride of 117, unclear etiology. 2. Acute encephalopathy. 3. Status post hemorrhagic shock. 4. Human immunodeficiency virus positive with CD4 count of 157. 5. Positive colitis. 6. Multiple decubitus ulcers. 7. Status post urinary tract infection and sepsis on admission. 8. Depression. 9. Hypomagnesemia- s/p replacement PLAN: on PO KCL replacement 40mEQ BID no labs today to review yet Bp stable will follow up Consultation Date/Type/Reason Admit Date/Time November 11, 2016 at 15:19 Type of Consultation: NEPHROLOGY Referring Provider: JESUS RUIZ 24 HR Interval Summary Free Text/Dictation no acute events, BP stable Exam/Review of Systems Vital Signs Vitals Vital Signs Date Time Temp Pulse Resp B/P Pulse Ox O2 Delivery O2 Flow Rate FiO2 12/13/16 08:59 98.2 111 19 131/90 98 12/12/16 23:56 Room Air Intake and Output 12/12/16 12/12/16 12/13/16 15:00 23:00 07:00 Intake Total 500 ml Output Total 500 ml Balance 0 ml Exam GENERAL: This is a chronically ill-appearing, cachectic, wasted, middle-aged white woman who is lying comfortably in bed. HEENT: Head atraumatic, normocephalic. Sclerae anicteric. Buccal mucosa dry. NECK: Supple. CHEST: Rise symmetrical. Breath sounds diminished. HEART: S1, S2. ABDOMEN: Soft. Bowel tones present. EXTREMITIES: Without cyanosis. Bilateral edema. Results Result Diagram: 12/09/1662212/09/16622 Medications Medications Current Medications Ondansetron HCl (Zofran Inj) 4 mg Q6H PRN IV NAUSEA AND/OR VOMITING Last administered on 12/01/16 09:59; Admin Dose 4 MG; Start 11/11/16 at 16:00 Acetaminophen (Tylenol Tab) 650 mg Q6H PRN PO PAIN LEVEL 1-3 OR FEVER; Start at 16:00 Magnesium Hydroxide (Milk Of Mag) 30 ml DAILY PRN PO CONSTIPATION; Start at 16:00 Sodium Biphosphate/ Sodium Phosphate (Fleet Enema) 133 ml DAILY PRN [place] CONSTIPATION; Start 11/11/16 at 16:00 Hydralazine HCl (Apresoline) 10 mg Q6H PRN IV ELEVATED BLOOD PRESSURE; Start at 16:00 Nitroglycerin (Nitroglycerin (Sl Tab) 0.4 Mg) 1 tab Q5M PRN SL ANGINA Last administered on 11/11/16 23:25; Admin Dose 1 TAB; Start 11/11/16 at 16:00 Efavirenz (Sustiva) 600 mg DAILY PO Last administered on 12/12/16 09:32; Admin Dose 600 MG; Start 11/12/16 at 09:00 Emtricitabine/ Tenofovir (Truvada) 1 tab DAILY PO Last administered on 09:24; Admin Dose 1 TAB; Start 11/12/16 at 09:00 Sucralfate (Carafate) 1 gm QID PO Last administered on 12/13/16 09:03; Admin Dose 1 GM; Start 11/11/16 at 17:00 Collagenase (Santyl) 1 applic DAILY TOP Last administered on 12/12/16 09:32; Admin Dose 1 APPLIC; Start 11/12/16 at 13:00 Collagenase (Santyl) 1 applic PRN PRN TOP WOUND CARE; Start 11/12/16 at 12:00 Mesalamine (Delzicol Dr) 800 mg QID PO Last administered on 12/12/16 21:30; Admin Dose 800 MG; Start 11/12/16 at 21:00 Fluconazole (Diflucan) 100 mg DAILY PO Last administered on 12/13/16 09:03; Admin Dose 100 MG; Start 11/13/16 at 09:00 Lactobacillus Acidophilus (Florajen3 Capsule) 1 each BID PO Last administered on 12/13/16 10:54; Admin Dose 1 EACH; Start 11/13/16 at 21:00 Pantoprazole (Protonix Tab) 40 mg BID@18 PO Last administered on 12/13/16 06:52; Admin Dose 40 MG; Start 11/28/16 at 06:00 Metoclopramide HCl (Reglan) 5 mg TID PO Last administered on 12/13/16 09:02; Admin Dose 5 MG; Start 11/27/16 at 21:00 Levetiracetam (Keppra) 500 mg BID PO Last administered on 12/13/16 09:02; Admin Dose 500 MG; Start 11/27/16 at 21:00 Potassium Chloride (Klor-Con 20) 40 meq BID PO Last administered on 12/13/16 09:02; Admin Dose 40 MEQ; Start 11/27/16 at 21:00 Enoxaparin Sodium (Lovenox) 40 mg DAILY SC Last administered on 12/08/16 09:59 ; Admin Dose 40 MG; Start 11/29/16 at 09:00; Status Future Hold Magnesium Oxide (Mag-Ox 400) 400 mg TID PO Last administered on 12/13/16 09:02 ; Admin Dose 400 MG; Start 11/30/16 at 21:00 Metoprolol Tartrate (Lopressor) 12.5 mg BID PO Last administered on 12/13/16 09:03; Admin Dose 12.5 MG; Start 12/06/16 at 21:00 ASHISH MENDOZA MD Dec 13, 2016 13:08
[2016-12-13] MEDS: MESALAMINE (EC) 400 MG CAP PO SCH ×4 (13:47→22:03)
[2016-12-13] MEDS: EMTRICITABINE/TENOFOVIR TAB PO SCH (13:47)
[2016-12-13] MEDS: EFAVIRENZ 600 MG TAB PO SCH (13:47)
[2016-12-13] MEDS: COLLAGENASE 30 GM TUBE TOP SCH (13:48)
--- NOTE | 2016-12-13 19:32 | CONS ---
Date/Time of Note Date/Time of Note DATE: 12/13/16 TIME: 19:27 Assessment/Plan Assessment/Plan Chief Complaint/Hosp Course ID PROGRESS NOTE TOTAL ABX DAY # 1. s/p Rocephin = OFF 2. Fluconazole. 3. Oral vancomycin = OFF 4. Valganciclovir = OFF 5. HIV ARV MEDS: Truvada + Sustiva. 24H INTERVAL SUMMARY * CLINICALLY Stable A/Alert & responsive, no complaints, psychomotor retardation * No fevers, profound debility,weakness persisting, VSS PHYSICAL EXAMINATION: GENERAL: VSS,NAD, appears weak, frail, no fevers HEENT: Unremarkable NECK: Moves neck, appears supple, CHEST: Equal chest appears cachetic, without dyspnea on observation, diminished bi-basilar HEART: Pulse RRR -- tachy ABDOMEN: Soft, benign EXTREMITIES: Warm, moves left leg, bi-pedal edema SKIN: Warm, dry, tattoos, wounds see photos ID ASSESSMENT: 41 yo F admitted with HIV(+) status on ARV meds w/CD4 count 241 on 11/25/2016 admit with: 1. Acute anemia on admission secondary to gastrointestinal bleed with EGD revealed severe ulcerative esophagitis/Inocencia 2. s/p septic shock due to PNA + Polymicrobial urinary tract infection. 3. Multiple chronic wounds-> s/p IV ABX * Wound culture E. coli ESBL, Enterococcus species. Urine culture grew E. coli and Proteus mirabilis. 4. s/p Colitis as per CT of the abdomen =RESOLVED 5. Severe deconditioning. 6. Cachexia with severe protein calorie malnutrition. 7. Status post seizure with postictal encephalopathy. (-)MRSA NARES INVASIVES: * PICC LUEXT ABX ALLERGIES: None to ABX CURRENT ABX: 1. S/P IV Rocephin.= OFF CEFTRIAXONE 2. Fluconazole. 3. Oral vancomycin = OFF, completed course 4. Valganciclovir = OFF, completed course 5. HIV ARV MEDS: Truvada + Sustiva. ID RECOMMENDATIONS PLAN: The patient remains stable. Continue present care, MAYERS, optimize nutrition, may need PEG placement for failure to thrive . Problems: Consultation Date/Type/Reason Admit Date/Time November 11, 2016 at 15:19 Initial Consult Date 11/11/16 Type of Consultation: ID Referring Provider: JESUS RUIZ Exam/Review of Systems Vital Signs Vitals Vital Signs Date Time Temp Pulse Resp B/P Pulse Ox O2 Delivery O2 Flow Rate FiO2 12/13/16 08:59 98.2 111 19 131/90 98 12/12/16 23:56 Room Air Intake and Output 12/12/16 12/12/16 12/13/16 15:00 23:00 07:00 Intake Total 500 ml Output Total 500 ml Balance 0 ml Results Result Diagram: 12/09/1662212/09/16622 Medications Medications Current Medications Ondansetron HCl (Zofran Inj) 4 mg Q6H PRN IV NAUSEA AND/OR VOMITING Last administered on 12/01/16 09:59; Admin Dose 4 MG; Start 11/11/16 at 16:00 Acetaminophen (Tylenol Tab) 650 mg Q6H PRN PO PAIN LEVEL 1-3 OR FEVER; Start at 16:00 Magnesium Hydroxide (Milk Of Mag) 30 ml DAILY PRN PO CONSTIPATION; Start at 16:00 Sodium Biphosphate/ Sodium Phosphate (Fleet Enema) 133 ml DAILY PRN [place] CONSTIPATION; Start 11/11/16 at 16:00 Hydralazine HCl (Apresoline) 10 mg Q6H PRN IV ELEVATED BLOOD PRESSURE; Start at 16:00 Nitroglycerin (Nitroglycerin (Sl Tab) 0.4 Mg) 1 tab Q5M PRN SL ANGINA Last administered on 11/11/16 23:25; Admin Dose 1 TAB; Start 11/11/16 at 16:00 Efavirenz (Sustiva) 600 mg DAILY PO Last administered on 12/13/16 13:47; Admin Dose 600 MG; Start 11/12/16 at 09:00 Emtricitabine/ Tenofovir (Truvada) 1 tab DAILY PO Last administered on 13:47; Admin Dose 1 TAB; Start 11/12/16 at 09:00 Sucralfate (Carafate) 1 gm QID PO Last administered on 12/13/16 17:54; Admin Dose 1 GM; Start 11/11/16 at 17:00 Collagenase (Santyl) 1 applic DAILY TOP Last administered on 12/13/16 13:48; Admin Dose 1 APPLIC; Start 11/12/16 at 13:00 Collagenase (Santyl) 1 applic PRN PRN TOP WOUND CARE; Start 11/12/16 at 12:00 Mesalamine (Delzicol Dr) 800 mg QID PO Last administered on 12/13/16 17:54; Admin Dose 800 MG; Start 11/12/16 at 21:00 Fluconazole (Diflucan) 100 mg DAILY PO Last administered on 12/13/16 09:03; Admin Dose 100 MG; Start 11/13/16 at 09:00 Lactobacillus Acidophilus (Florajen3 Capsule) 1 each BID PO Last administered on 12/13/16 10:54; Admin Dose 1 EACH; Start 11/13/16 at 21:00 Pantoprazole (Protonix Tab) 40 mg BID@18 PO Last administered on 12/13/16 17:54; Admin Dose 40 MG; Start 11/28/16 at 06:00 Metoclopramide HCl (Reglan) 5 mg TID PO Last administered on 12/13/16 13:48; Admin Dose 5 MG; Start 11/27/16 at 21:00 Levetiracetam (Keppra) 500 mg BID PO Last administered on 12/13/16 09:02; Admin Dose 500 MG; Start 11/27/16 at 21:00 Potassium Chloride (Klor-Con 20) 40 meq BID PO Last administered on 12/13/16 09:02; Admin Dose 40 MEQ; Start 11/27/16 at 21:00 Enoxaparin Sodium (Lovenox) 40 mg DAILY SC Last administered on 12/08/16 09:59 ; Admin Dose 40 MG; Start 11/29/16 at 09:00; Status Future Hold Magnesium Oxide (Mag-Ox 400) 400 mg TID PO Last administered on 12/13/16 13:51 ; Admin Dose 400 MG; Start 11/30/16 at 21:00 Metoprolol Tartrate (Lopressor) 12.5 mg BID PO Last administered on 12/13/16 09:03; Admin Dose 12.5 MG; Start 12/06/16 at 21:00 NILDA JOSE NP Dec 13, 2016 19:32
[2016-12-13 20:34] VITALS: BP 129/83; RESP 18
[2016-12-14] MEDS: PANTOPRAZOLE (EC) 40 MG TAB PO SCH ×2 (05:47→18:19)
[2016-12-14 06:10] LABS: ADD SCAN DIFF NO
[2016-12-14 06:14] LABS: BASOPHIL # 0.1 10^3/ul (0.0-0.1); BASOPHILS % 0.9 % (0.0-2.0); EOSINOPHILS # 0.1 10^3/ul (0.0-0.5); EOSINOPHILS % 0.7 % (0.0-7.0); HEMATOCRIT 31.7 % (37.0-47.0); HEMOGLOBIN 10.1 g/dl (12.0-16.0); LYMPHOCYTES # 1.2 10^3/ul (0.8-2.9); LYMPHOCYTES % 18.2 % (15.0-51.0); MEAN CORPUSCULAR HEMOGLOBIN 29.4 pg (29.0-33.0); MEAN CORPUSCULAR HGB CONC 31.9 g/dl (32.0-37.0); MEAN CORPUSCULAR VOLUME 92.4 fl (82.0-101.0); MEAN PLATELET VOLUME 8.3 fl (7.4-10.4); MONOCYTE # 0.4 10^3/ul (0.3-0.9); MONOCYTES % 5.3 % (0.0-11.0); NEUTROPHIL # 4.9 10^3/ul (1.6-7.5); NEUTROPHILS % 72.3 % (39.0-77.0); PLATELET COUNT 200 10^3/UL (140-415); RED BLOOD COUNT 3.43 10^6/ul (4.20-5.40); RED CELL DISTRIBUTION WIDTH 18.8 % (11.5-14.5); WHITE BLOOD COUNT 6.8 10^3/ul (4.8-10.8)
[2016-12-14 06:47] LABS: INR 0.87; PROTIME 11.8 Sec (12.2-14.2); PT RATIO 0.9
[2016-12-14 06:48] LABS: PARTIAL THROMBOPLASTIN TIME 23.2 Sec (25.0-35.0)
[2016-12-14 06:58] LABS: CALCIUM 8.6 mg/dl (8.4-10.2); CREATININE 0.57 mg/dl (0.44-1.00); POTASSIUM 4.4 mmol/L (3.5-5.1)
[2016-12-14 07:35] VITALS: BP 136/95; RESP 18
[2016-12-14] MEDS: SUCRALFATE 1 GM TAB PO SCH ×4 (09:14→20:01)
[2016-12-14] MEDS: FLUCONAZOLE 100 MG TAB PO SCH (09:15)
[2016-12-14] MEDS: L ACIDOPHIL/B LACTIS/B LONGUM CAPSULE PO SCH ×2 (09:15→20:01)
[2016-12-14] MEDS: MESALAMINE (EC) 400 MG CAP PO SCH ×4 (09:15→19:58)
[2016-12-14] MEDS: LEVETIRACETAM 500 MG TAB PO SCH ×2 (09:15→20:01)
[2016-12-14] MEDS: POTASSIUM CHLORIDE (SR) 20 MEQ TAB PO SCH ×2 (09:16→20:01)
[2016-12-14] MEDS: METOPROLOL 25 MG TAB PO SCH ×2 (09:17→20:02)
[2016-12-14] MEDS: MAGNESIUM OXIDE 400 MG TAB PO SCH ×3 (09:17→20:01)
[2016-12-14] MEDS: METOCLOPRAMIDE 5 MG TAB PO SCH ×3 (09:17→20:01)
[2016-12-14] MEDS: EFAVIRENZ 600 MG TAB PO SCH (09:18)
[2016-12-14] MEDS: EMTRICITABINE/TENOFOVIR TAB PO SCH (09:18)
[2016-12-14] MEDS: COLLAGENASE 30 GM TUBE TOP SCH (09:19)
--- NOTE | 2016-12-14 10:28 | PN ---
Date/Time of Note Date/Time of Note DATE: 12/14/16 TIME: 10:24 Assessment/Plan VTE Prophylaxis VTE Prophylaxis Intervention: heparin Lines/Catheters [facility] Central line still needed: Yes Urinary Cath still in place: Yes Reason Cath still needed: pres ulcer contaminated by urine Assessment/Plan Problems: (1) Esophagitis, erosive Status: Chronic Comment: She has been on proton pump inhibitors as well as treatment for the erosive esophagitis and Inocencia esophagitis. She is improved significantly and can take p.o. without complications (2) Inocencia esophagitis Status: Chronic Comment: On treatment successfully. Please see infectious disease consult note (3) Cirrhosis of liver Status: Chronic Comment: This is noted. The lack of adequate nutrition is certainly an issue for this young lady. She is eating better at this time. Ultimately we may be forced to put in a PEG tube with the present plan does not work. Specifically if she is discharged and does not eat well or maintain nutrition and she will need a feeding tube. Problem we have had is when we discharge her to an extended care facility her significant other signs or out against advice very rapidly. If we send her home he will have directed care. Qualifiers: Hepatic cirrhosis type: other cirrhosis Qualified Code: K74.69 - Other cirrhosis of liver (4) Ulcerative colitis Status: Acute Comment: Controlled on medication Qualifiers: Ulcerative colitis location: ulcerative pancolitis Digestive disease complication type: with rectal bleeding Qualified Code: K51.011 - Ulcerative pancolitis with rectal bleeding (5) HIV disease Status: Chronic Comment: On highly active antiretroviral therapy successfully (6) Protein calorie malnutrition Status: Chronic Comment: Continue with gentle nutritional replacement Subjective 24 Hr Interval Summary Free Text/Dictation Patient reports she is trying to eat as much as she can. Constitutional: no complaints (Denies fevers chills or sweats) Respiratory: no complaints (Denies cough shortness of breath or pleuritic pain) Cardiovascular: no complaints (Denies chest pain or palpitations) Gastrointestinal: no complaints Exam/Review of Systems Vital Signs Vitals Vital Signs Date Time Temp Pulse Resp B/P Pulse Ox O2 Delivery O2 Flow Rate FiO2 12/14/16 07:35 98.2 100 18 136/95 99 12/12/16 23:56 Room Air Intake and Output 12/13/16 12/13/16 12/14/16 15:00 23:00 07:00 Intake Total 100 ml 600 ml Output Total 1300 ml 1350 ml Balance -1200 ml -750 ml Exam Cachectic female sitting in bed Constitutional: alert, oriented Neck: non-tender, supple Respiratory: clear to auscultation, normal air movement Cardiovascular: nl pulses, regular rate and rhythm Gastrointestinal: nl liver, spleen, non-tender, soft Results Result Diagram: 12/14/16 0535 12/14/16 0555 Results 24 hrs Laboratory Tests Test 12/14/16 05:35 12/14/16 05:55 White Blood Count 6.8 Red Blood Count 3.43 L Hemoglobin 10.1 L Hematocrit 31.7 L Mean Corpuscular Volume 92.4 Mean Corpuscular Hemoglobin 29.4 Mean Corpuscular Hemoglobin Concent 31.9 L Red Cell Distribution Width 18.8 H Platelet Count 200 # Mean Platelet Volume 8.3 Neutrophils % 72.3 Lymphocytes % 18.2 Monocytes % 5.3 Eosinophils % 0.7 Basophils % 0.9 Nucleated Red Blood Cells % 0.0 Neutrophils # 4.9 Lymphocytes # 1.2 Monocytes # 0.4 Eosinophils # 0.1 Basophils # 0.1 Nucleated Red Blood Cells # 0.0 Prothrombin Time 11.8 #L Prothrombin Time Ratio 0.9 INR International Normalized Ratio 0.87 Activated Partial Thromboplast Time 23.2 L Magnesium Level 1.7 Sodium Level 136 Potassium Level 4.4 Chloride Level 104 Carbon Dioxide Level 29 Anion Gap 7 L Blood Urea Nitrogen 28 H Creatinine 0.57 Glucose Level 78 Calcium Level 8.6 Medications Medications Current Medications Ondansetron HCl (Zofran Inj) 4 mg Q6H PRN IV NAUSEA AND/OR VOMITING Last administered on 12/01/16t 09:59; Admin Dose 4 MG; Start 11/11/16 at 16:00 Acetaminophen (Tylenol Tab) 650 mg Q6H PRN PO PAIN LEVEL 1-3 OR FEVER; Start at 16:00 Magnesium Hydroxide (Milk Of Mag) 30 ml DAILY PRN PO CONSTIPATION; Start at 16:00 Sodium Biphosphate/ Sodium Phosphate (Fleet Enema) 133 ml DAILY PRN [place] CONSTIPATION; Start 11/11/16 at 16:00 Hydralazine HCl (Apresoline) 10 mg Q6H PRN IV ELEVATED BLOOD PRESSURE; Start at 16:00 Nitroglycerin (Nitroglycerin (Sl Tab) 0.4 Mg) 1 tab Q5M PRN SL ANGINA Last administered on 11/11/16 23:25; Admin Dose 1 TAB; Start 11/11/16 at 16:00 Efavirenz (Sustiva) 600 mg DAILY PO Last administered on 12/14/16 09:18; Admin Dose 600 MG; Start 11/12/16 at 09:00 Emtricitabine/ Tenofovir (Truvada) 1 tab DAILY PO Last administered on 09:18; Admin Dose 1 TAB; Start 11/12/16 at 09:00 Sucralfate (Carafate) 1 gm QID PO Last administered on 12/14/16 09:14; Admin Dose 1 GM; Start 11/11/16 at 17:00 Collagenase (Santyl) 1 applic DAILY TOP Last administered on 12/14/16 09:19; Admin Dose 1 APPLIC; Start 11/12/16 at 13:00 Collagenase (Santyl) 1 applic PRN PRN TOP WOUND CARE; Start 11/12/16 at 12:00 Mesalamine (Delzicol Dr) 800 mg QID PO Last administered on 12/14/16 09:15; Admin Dose 800 MG; Start 11/12/16 at 21:00 Fluconazole (Diflucan) 100 mg DAILY PO Last administered on 12/14/16 09:15; Admin Dose 100 MG; Start 11/13/16 at 09:00 Lactobacillus Acidophilus (Florajen3 Capsule) 1 each BID PO Last administered on 12/14/16 09:15; Admin Dose 1 EACH; Start 11/13/16 at 21:00 Pantoprazole (Protonix Tab) 40 mg BID@18 PO Last administered on 12/14/16 05:47; Admin Dose 40 MG; Start 11/28/16 at 06:00 Metoclopramide HCl (Reglan) 5 mg TID PO Last administered on 12/14/16 09:17; Admin Dose 5 MG; Start 11/27/16 at 21:00 Levetiracetam (Keppra) 500 mg BID PO Last administered on 12/14/16 09:15; Admin Dose 500 MG; Start 11/27/16 at 21:00 Potassium Chloride (Klor-Con 20) 40 meq BID PO Last administered on 12/14/16 09:16; Admin Dose 40 MEQ; Start 11/27/16 at 21:00 Enoxaparin Sodium (Lovenox) 40 mg DAILY SC Last administered on 12/08/16 09:59 ; Admin Dose 40 MG; Start 11/29/16 at 09:00; Status Future Hold Magnesium Oxide (Mag-Ox 400) 400 mg TID PO Last administered on 12/14/16 09:17 ; Admin Dose 400 MG; Start 11/30/16 at 21:00 Metoprolol Tartrate (Lopressor) 12.5 mg BID PO Last administered on 12/14/16 09:17; Admin Dose 12.5 MG; Start 12/06/16 at 21:00 SHELBY GILLIAM MD Dec 14, 2016 10:28
--- NOTE | 2016-12-14 16:16 | PN ---
DATE: 12/14/2016 SUBJECTIVE: Chart reviewed. No significant changes. PHYSICAL EXAMINATION: VITAL SIGNS: Blood pressure 136/95, pulse 100, respiration 18, temperature 98.2. HEENT: Pupils are equal and reactive to light. NECK: Supple, no JVD noted, no cervical lymphadenopathy noted, no carotid bruits heard. LUNGS: Few scattered rhonchi. CARDIOVASCULAR: S1, S2 normal. ABDOMEN: Soft, nontender. No organomegaly or masses noted. EXTREMITIES: No clubbing, cyanosis noted. NEUROLOGICAL: Awake. LABORATORY DATA: WBC 6.8, hemoglobin 10.1, hematocrit 31.7, platelets 200. Sodium 136, potassium 4 .4, chloride 104, CO2 29, BUN 28, creatinine 0.57, glucose 78. IMPRESSION: 1. Status post lower gastrointestinal bleed. 2. Status post upper and lower endoscopy showing erosive esophagitis and ulcerative colitis. 3. Anemia requiring transfusion. 4. Human immunodeficiency virus positive. 5. Deconditioning. 6. Multiple wounds. 7. History of drug abuse. 8. History of depression. 9. Severe malnutrition. 10. Status post urinary tract infection. 11. Seizure disorder. PLAN: 1. Continue current treatment. 2. Endocrine followup noted. 3. Will need [place] facility upon discharge. 4. Nutritional support. Dictated By: NOE TERAN MD, MA/SHILPA Conf#: [id number] DID#: [id number]
--- NOTE | 2016-12-14 17:44 | CONS ---
Date/Time of Note Date/Time of Note DATE: 12/14/16 TIME: 17:18 Assessment/Plan Assessment/Plan Additional Assessment/Plan 1. Severe hyperchloremia with a chloride of 117, unclear etiology. 2. Acute encephalopathy. 3. Status post hemorrhagic shock. 4. Human immunodeficiency virus positive with CD4 count of 157. 5. Positive colitis. 6. Multiple decubitus ulcers. 7. Status post urinary tract infection and sepsis on admission. 8. Depression. 9. Hypomagnesemia- s/p replacement PLAN: on PO KCL replacement 40mEQ BID no labs today to review yet Bp stable will follow up Further recommendations depend upon patient's clinical course. Plan of care dw Dr. Angela Sam/staff/patient. Consultation Date/Type/Reason Admit Date/Time November 11, 2016 at 15:19 Initial Consult Date 11/26/16 Type of Consultation: ID Referring Provider: JESUS RUIZ 24 HR Interval Summary Constitutional: improved Exam/Review of Systems Vital Signs Vitals Vital Signs Date Time Temp Pulse Resp B/P Pulse Ox O2 Delivery O2 Flow Rate FiO2 12/14/16 07:35 98.2 100 18 136/95 99 12/12/16 23:56 Room Air Intake and Output 12/13/16 12/13/16 12/14/16 15:00 23:00 07:00 Intake Total 100 ml 600 ml Output Total 1300 ml 1350 ml Balance -1200 ml -750 ml Exam Constitutional: alert Respiratory: clear to auscultation, normal air movement Cardiovascular: nl pulses, regular rate and rhythm Gastrointestinal: non-tender, soft Musculoskeletal: muscle weakness Neurological: nl speech Skin: nl turgor Results Result Diagram: 12/14/16 0535 12/14/16 0555 Results 24 hrs Laboratory Tests Test 12/14/16 05:35 12/14/16 05:55 White Blood Count 6.8 Red Blood Count 3.43 L Hemoglobin 10.1 L Hematocrit 31.7 L Mean Corpuscular Volume 92.4 Mean Corpuscular Hemoglobin 29.4 Mean Corpuscular Hemoglobin Concent 31.9 L Red Cell Distribution Width 18.8 H Platelet Count 200 # Mean Platelet Volume 8.3 Neutrophils % 72.3 Lymphocytes % 18.2 Monocytes % 5.3 Eosinophils % 0.7 Basophils % 0.9 Nucleated Red Blood Cells % 0.0 Neutrophils # 4.9 Lymphocytes # 1.2 Monocytes # 0.4 Eosinophils # 0.1 Basophils # 0.1 Nucleated Red Blood Cells # 0.0 Prothrombin Time 11.8 #L Prothrombin Time Ratio 0.9 INR International Normalized Ratio 0.87 Activated Partial Thromboplast Time 23.2 L Magnesium Level 1.7 Sodium Level 136 Potassium Level 4.4 Chloride Level 104 Carbon Dioxide Level 29 Anion Gap 7 L Blood Urea Nitrogen 28 H Creatinine 0.57 Glucose Level 78 Calcium Level 8.6 Medications Medications Current Medications Ondansetron HCl (Zofran Inj) 4 mg Q6H PRN IV NAUSEA AND/OR VOMITING Last administered on 12/01/16 09:59; Admin Dose 4 MG; Start 11/11/16 at 16:00 Acetaminophen (Tylenol Tab) 650 mg Q6H PRN PO PAIN LEVEL 1-3 OR FEVER; Start at 16:00 Magnesium Hydroxide (Milk Of Mag) 30 ml DAILY PRN PO CONSTIPATION; Start at 16:00 Sodium Biphosphate/ Sodium Phosphate (Fleet Enema) 133 ml DAILY PRN [place] CONSTIPATION; Start 11/11/16 at 16:00 Hydralazine HCl (Apresoline) 10 mg Q6H PRN IV ELEVATED BLOOD PRESSURE; Start at 16:00 Nitroglycerin (Nitroglycerin (Sl Tab) 0.4 Mg) 1 tab Q5M PRN SL ANGINA Last administered on 11/11/16 23:25; Admin Dose 1 TAB; Start 11/11/16 at 16:00 Efavirenz (Sustiva) 600 mg DAILY PO Last administered on 12/14/16 09:18; Admin Dose 600 MG; Start 11/12/16 at 09:00 Emtricitabine/ Tenofovir (Truvada) 1 tab DAILY PO Last administered on 09:18; Admin Dose 1 TAB; Start 11/12/16 at 09:00 Sucralfate (Carafate) 1 gm QID PO Last administered on 12/14/16 13:23; Admin Dose 1 GM; Start 11/11/16 at 17:00 Collagenase (Santyl) 1 applic DAILY TOP Last administered on 12/14/16 09:19; Admin Dose 1 APPLIC; Start 11/12/16 at 13:00 Collagenase (Santyl) 1 applic PRN PRN TOP WOUND CARE; Start 11/12/16 at 12:00 Mesalamine (Delzicol Dr) 800 mg QID PO Last administered on 12/14/16 13:23; Admin Dose 800 MG; Start 11/12/16 at 21:00 Fluconazole (Diflucan) 100 mg DAILY PO Last administered on 12/14/16 09:15; Admin Dose 100 MG; Start 11/13/16 at 09:00 Lactobacillus Acidophilus (Florajen3 Capsule) 1 each BID PO Last administered on 12/14/16 09:15; Admin Dose 1 EACH; Start 11/13/16 at 21:00 Pantoprazole (Protonix Tab) 40 mg BID@18 PO Last administered on 12/14/16 05:47; Admin Dose 40 MG; Start 11/28/16 at 06:00 Metoclopramide HCl (Reglan) 5 mg TID PO Last administered on 12/14/16 13:23; Admin Dose 5 MG; Start 11/27/16 at 21:00 Levetiracetam (Keppra) 500 mg BID PO Last administered on 12/14/16 09:15; Admin Dose 500 MG; Start 11/27/16 at 21:00 Potassium Chloride (Klor-Con 20) 40 meq BID PO Last administered on 12/14/16 09:16; Admin Dose 40 MEQ; Start 11/27/16 at 21:00 Enoxaparin Sodium (Lovenox) 40 mg DAILY SC Last administered on 12/08/16 09:59 ; Admin Dose 40 MG; Start 11/29/16 at 09:00; Status Future Hold Magnesium Oxide (Mag-Ox 400) 400 mg TID PO Last administered on 12/14/16 13:23 ; Admin Dose 400 MG; Start 11/30/16 at 21:00 Metoprolol Tartrate (Lopressor) 12.5 mg BID PO Last administered on 12/14/16 09:17; Admin Dose 12.5 MG; Start 12/06/16 at 21:00 DAVE HERNADEZ Dec 14, 2016 17:30
--- NOTE | 2016-12-14 18:01 | CONS ---
Date/Time of Note Date/Time of Note DATE: 12/14/16 TIME: 18:01 Assessment/Plan Assessment/Plan Chief Complaint/Hosp Course SUBJECTIVE: No events overnight, sleeping, no fevers, nad INDWELLINGS: Hughes catheter, PICC line. ANTIMICROBIALS: 2. Fluconazole. 3. Truvada. 4. Sustiva. PHYSICAL EXAMINATION: GENERAL: Cachectic, well-developed, middle-aged white woman who is alert, in no distress. HEENT: Head atraumatic, normocephalic. Sclerae anicteric. Buccal mucosa dry. NECK: Supple. CHEST: Rise symmetrical. Breath sounds diminished to bases. HEART: S1, S2. ABDOMEN: Soft, bowel tones present. EXTREMITIES: Without cyanosis. ASSESSMENT: 1. Status post septic shock secondary to urinary tract infection and pneumonia. 2. Status post colitis. 3. Human immunodeficiency virus disease with CD4 count 241 on 11/25/2016. 4. Multiple chronic wounds. 5. Cachexia with severe protein calorie malnutrition. 6. History of Inocencia esophagitis. 7. Status post seizure with postictal encephalopathy. PLAN: The patient remains stable. Continue present care, MAYERS, PT, optimize nutrition DW staff Problems: Consultation Date/Type/Reason Admit Date/Time November 11, 2016 at 15:19 Initial Consult Date 11/11/16 Type of Consultation: ID Referring Provider: JESUS RUIZ Exam/Review of Systems Vital Signs Vitals Vital Signs Date Time Temp Pulse Resp B/P Pulse Ox O2 Delivery O2 Flow Rate FiO2 12/14/16 07:35 98.2 100 18 136/95 99 12/12/16 23:56 Room Air Intake and Output 12/13/16 12/13/16 12/14/16 15:00 23:00 07:00 Intake Total 100 ml 600 ml Output Total 1300 ml 1350 ml Balance -1200 ml -750 ml Results Result Diagram: 12/14/16 0535 12/14/16 0555 Results 24 hrs Laboratory Tests Test 12/14/16 05:35 12/14/16 05:55 White Blood Count 6.8 Red Blood Count 3.43 L Hemoglobin 10.1 L Hematocrit 31.7 L Mean Corpuscular Volume 92.4 Mean Corpuscular Hemoglobin 29.4 Mean Corpuscular Hemoglobin Concent 31.9 L Red Cell Distribution Width 18.8 H Platelet Count 200 # Mean Platelet Volume 8.3 Neutrophils % 72.3 Lymphocytes % 18.2 Monocytes % 5.3 Eosinophils % 0.7 Basophils % 0.9 Nucleated Red Blood Cells % 0.0 Neutrophils # 4.9 Lymphocytes # 1.2 Monocytes # 0.4 Eosinophils # 0.1 Basophils # 0.1 Nucleated Red Blood Cells # 0.0 Prothrombin Time 11.8 #L Prothrombin Time Ratio 0.9 INR International Normalized Ratio 0.87 Activated Partial Thromboplast Time 23.2 L Magnesium Level 1.7 Sodium Level 136 Potassium Level 4.4 Chloride Level 104 Carbon Dioxide Level 29 Anion Gap 7 L Blood Urea Nitrogen 28 H Creatinine 0.57 Glucose Level 78 Calcium Level 8.6 Medications Medications Current Medications Ondansetron HCl (Zofran Inj) 4 mg Q6H PRN IV NAUSEA AND/OR VOMITING Last administered on 12/01/16 09:59; Admin Dose 4 MG; Start 11/11/16 at 16:00 Acetaminophen (Tylenol Tab) 650 mg Q6H PRN PO PAIN LEVEL 1-3 OR FEVER; Start at 16:00 Magnesium Hydroxide (Milk Of Mag) 30 ml DAILY PRN PO CONSTIPATION; Start at 16:00 Sodium Biphosphate/ Sodium Phosphate (Fleet Enema) 133 ml DAILY PRN [place] CONSTIPATION; Start 11/11/16 at 16:00 Hydralazine HCl (Apresoline) 10 mg Q6H PRN IV ELEVATED BLOOD PRESSURE; Start at 16:00 Nitroglycerin (Nitroglycerin (Sl Tab) 0.4 Mg) 1 tab Q5M PRN SL ANGINA Last administered on 11/11/16 23:25; Admin Dose 1 TAB; Start 11/11/16 at 16:00 Efavirenz (Sustiva) 600 mg DAILY PO Last administered on 12/14/16 09:18; Admin Dose 600 MG; Start 11/12/16 at 09:00 Emtricitabine/ Tenofovir (Truvada) 1 tab DAILY PO Last administered on 09:18; Admin Dose 1 TAB; Start 11/12/16 at 09:00 Sucralfate (Carafate) 1 gm QID PO Last administered on 12/14/16 13:23; Admin Dose 1 GM; Start 11/11/16 at 17:00 Collagenase (Santyl) 1 applic DAILY TOP Last administered on 12/14/16 09:19; Admin Dose 1 APPLIC; Start 11/12/16 at 13:00 Collagenase (Santyl) 1 applic PRN PRN TOP WOUND CARE; Start 11/12/16 at 12:00 Mesalamine (Delzicol Dr) 800 mg QID PO Last administered on 12/14/16 13:23; Admin Dose 800 MG; Start 11/12/16 at 21:00 Fluconazole (Diflucan) 100 mg DAILY PO Last administered on 12/14/16 09:15; Admin Dose 100 MG; Start 11/13/16 at 09:00 Lactobacillus Acidophilus (Florajen3 Capsule) 1 each BID PO Last administered on 12/14/16 09:15; Admin Dose 1 EACH; Start 11/13/16 at 21:00 Pantoprazole (Protonix Tab) 40 mg BID@18 PO Last administered on 12/14/16 05:47; Admin Dose 40 MG; Start 11/28/16 at 06:00 Metoclopramide HCl (Reglan) 5 mg TID PO Last administered on 12/14/16 13:23; Admin Dose 5 MG; Start 11/27/16 at 21:00 Levetiracetam (Keppra) 500 mg BID PO Last administered on 12/14/16 09:15; Admin Dose 500 MG; Start 11/27/16 at 21:00 Potassium Chloride (Klor-Con 20) 40 meq BID PO Last administered on 12/14/16 09:16; Admin Dose 40 MEQ; Start 11/27/16 at 21:00 Enoxaparin Sodium (Lovenox) 40 mg DAILY SC Last administered on 12/08/16 09:59 ; Admin Dose 40 MG; Start 11/29/16 at 09:00; Status Future Hold Magnesium Oxide (Mag-Ox 400) 400 mg TID PO Last administered on 12/14/16 13:23 ; Admin Dose 400 MG; Start 11/30/16 at 21:00 Metoprolol Tartrate (Lopressor) 12.5 mg BID PO Last administered on 12/14/16 09:17; Admin Dose 12.5 MG; Start 12/06/16 at 21:00 AGUILA BURGOS NP Dec 14, 2016 18:01
[2016-12-14 20:00] VITALS: BP 126/85; PULSE 113; RESP 18
[2016-12-14 21:35] VITALS: BP 129/83; PULSE 104
[2016-12-15 05:18] LABS: ADD SCAN DIFF NO
[2016-12-15] MEDS: PANTOPRAZOLE (EC) 40 MG TAB PO SCH ×2 (05:28→18:00)
[2016-12-15 05:34] LABS: BASOPHIL # 0.1 10^3/ul (0.0-0.1); BASOPHILS % 0.9 % (0.0-2.0); EOSINOPHILS # 0.1 10^3/ul (0.0-0.5); EOSINOPHILS % 0.9 % (0.0-7.0); HEMATOCRIT 32.7 % (37.0-47.0); HEMOGLOBIN 10.2 g/dl (12.0-16.0); LYMPHOCYTES % 14.7 % (15.0-51.0); MEAN CORPUSCULAR HGB CONC 31.2 g/dl (32.0-37.0); MEAN CORPUSCULAR VOLUME 92.9 fl (82.0-101.0); MEAN PLATELET VOLUME 8.7 fl (7.4-10.4); MONOCYTE # 0.4 10^3/ul (0.3-0.9); MONOCYTES % 6.1 % (0.0-11.0); NEUTROPHIL # 5.1 10^3/ul (1.6-7.5); NEUTROPHILS % 75.1 % (39.0-77.0); PLATELET COUNT 220 10^3/UL (140-415); RED BLOOD COUNT 3.52 10^6/ul (4.20-5.40); RED CELL DISTRIBUTION WIDTH 18.6 % (11.5-14.5); WHITE BLOOD COUNT 6.9 10^3/ul (4.8-10.8)
[2016-12-15 05:50] LABS: CALCIUM 8.5 mg/dl (8.4-10.2); CREATININE 0.64 mg/dl (0.44-1.00); POTASSIUM 4.5 mmol/L (3.5-5.1)
[2016-12-15 08:16] VITALS: BP 128/78; RESP 18
[2016-12-15] MEDS: L ACIDOPHIL/B LACTIS/B LONGUM CAPSULE PO SCH ×2 (08:56→21:27)
[2016-12-15] MEDS: MAGNESIUM OXIDE 400 MG TAB PO SCH ×3 (08:57→21:18)
[2016-12-15] MEDS: MESALAMINE (EC) 400 MG CAP PO SCH ×4 (08:57→21:26)
[2016-12-15] MEDS: LEVETIRACETAM 500 MG TAB PO SCH ×2 (08:57→21:18)
[2016-12-15] MEDS: EFAVIRENZ 600 MG TAB PO SCH (08:57)
[2016-12-15] MEDS: FLUCONAZOLE 100 MG TAB PO SCH (08:57)
[2016-12-15] MEDS: SUCRALFATE 1 GM TAB PO SCH ×4 (08:57→21:26)
[2016-12-15] MEDS: METOCLOPRAMIDE 5 MG TAB PO SCH ×3 (08:57→21:26)
[2016-12-15] MEDS: EMTRICITABINE/TENOFOVIR TAB PO SCH (08:57)
[2016-12-15] MEDS: POTASSIUM CHLORIDE (SR) 20 MEQ TAB PO SCH ×2 (08:58→21:27)
[2016-12-15] MEDS: METOPROLOL 25 MG TAB PO SCH ×2 (08:58→21:27)
[2016-12-15] MEDS: COLLAGENASE 30 GM TUBE TOP SCH ×2 (08:59→15:30)
--- NOTE | 2016-12-15 10:32 | PN ---
Date/Time of Note Date/Time of Note DATE: 12/15/16 TIME: 10:05 Assessment/Plan Lines/Catheters IV Catheter Type (from [facility]): PICC Line Urinary Cath still in place: Yes Assessment/Plan Assessment/Plan 1. Right lower quadrant serous fluid leak through a pinpoint had possible previous site of femoral access attempts. Differential diagnosis includes peritoneal fluid versus urine versus other. Resolved. -No leak noted from right groin; skin healed; dry and intact 2. Recent rectal bleeding with hemorrhagic shock & Anemia s/p transfusions: Resolved; no rectal bleed H/H remains stable -Monitor closely -Contine PPIs and Carafate 3. Esophagitis: EGD 11/12/2016: Severe ulcerated esophagitis/Inocencia esophagitis; Colonoscopy 11/12/2016: [place] ulcerative colitis. Moderate sized internal hemorrhoids - Continue antimicrobials per ID - Continue PPI 4. Pneumonia: CXR 11/25: Left lower greater than right lower lobe pneumonia with small bilateral pleural effusions; Patient afebrile with normalized WBC; patient on room air - Monitor for recurrence - Encourage mobilization 5. HIV positive -Continue medications 6. UTI with E. coli and Proteus; improved; no frequency or urgency; limon - Limon needed? otherwise may be beneficial to remove -Antibiotics 5. Multiple chronic wounds -Local care with offloading and frequent turning -May benefit from specialty bed if continued hospitalization -Nutrition optimization -Vitamin C 6. History of polysubstance abuse including tobacco -Encourage cessation 7. Psychiatric disorder with depression -Start antidepressants? -Medical and psychiatric optimization 8. Severe protein calorie malnutrition and hypoalbuminemia -Encourage nutritional optimization -Encourage foods that patient likes Patient seen and examined in collaboration with Dr. Pino Gao Subjective 24 Hr Interval Summary Constitutional: poor po, No chills, No diaphoresis Eyes: no complaints ENT: no complaints Respiratory: no complaints Cardiovascular: No chest pain, No palpitations Gastrointestinal: passing stool, No blood, No constipation, No diarrhea, No pain Genitourinary: no complaints Musculoskeletal: other (generalized pain from not moving) Skin: other (right hip wound; No drainage from right groin) Neurologic: No dizziness, No headache Endocrine: no complaints Psychological: depression Immunologic: No pruritis, No urticaria Exam/Review of Systems Vital Signs Vitals Vital Signs Date Time Temp Pulse Resp B/P Pulse Ox O2 Delivery O2 Flow Rate FiO2 12/15/16 08:16 98.1 92 18 128/78 97 12/14/16 20:00 Room Air Intake and Output 12/14/16 12/14/16 12/15/16 15:00 23:00 07:00 Intake Total 930 ml 600 ml Output Total 1000 ml 1050 ml Balance -70 ml -450 ml Exam Constitutional: alert, frail, oriented Psych: depression Head: atraumatic, normocephalic Eyes: EOMI, PERRL, nl conjunctiva, nl lids, nl sclera ENMT: nl external ears & nose, nl lips & teeth, nl nasal mucosa & septum Neck: non-tender, supple Respiratory: clear to auscultation, diminished breath sounds (at bases), normal air movement Cardiovascular: nl pulses, regular rate and rhythm Gastrointestinal: bowel sounds, non-tender, soft Genitourinary - Female: nl external genitalia Musculoskeletal: muscle weakness Extremities: normal pulses, No edema Neurological: nl mental status, nl speech Skin: other (multiple wounds), No rash or lesions Results Result Diagram: 12/15/16 04312/15/16 0430 Results 24 hrs Laboratory Tests Test 12/15/16 04:30 White Blood Count 6.9 Red Blood Count 3.52 L Hemoglobin 10.2 L Hematocrit 32.7 L Mean Corpuscular Volume 92.9 Mean Corpuscular Hemoglobin 29.0 Mean Corpuscular Hemoglobin Concent 31.2 L Red Cell Distribution Width 18.6 H Platelet Count 220 Mean Platelet Volume 8.7 Neutrophils % 75.1 Lymphocytes % 14.7 L Monocytes % 6.1 Eosinophils % 0.9 Basophils % 0.9 Nucleated Red Blood Cells % 0.0 Neutrophils # 5.1 Lymphocytes # 1.0 Monocytes # 0.4 Eosinophils # 0.1 Basophils # 0.1 Nucleated Red Blood Cells # 0.0 Sodium Level 135 Potassium Level 4.5 Chloride Level 104 Carbon Dioxide Level 27 Anion Gap 9 Blood Urea Nitrogen 27 H Creatinine 0.64 Glucose Level 94 Calcium Level 8.5 Medications Medications Current Medications Ondansetron HCl (Zofran Inj) 4 mg Q6H PRN IV NAUSEA AND/OR VOMITING Last administered on 12/01/16t 09:59; Admin Dose 4 MG; Start 11/11/16 at 16:00 Acetaminophen (Tylenol Tab) 650 mg Q6H PRN PO PAIN LEVEL 1-3 OR FEVER; Start at 16:00 Magnesium Hydroxide (Milk Of Mag) 30 ml DAILY PRN PO CONSTIPATION; Start at 16:00 Sodium Biphosphate/ Sodium Phosphate (Fleet Enema) [address] CONSTIPATION; Start 11/11/16 at 16:00 Hydralazine HCl (Apresoline) 10 mg Q6H PRN IV ELEVATED BLOOD PRESSURE; Start at 16:00 Nitroglycerin (Nitroglycerin (Sl Tab) 0.4 Mg) 1 tab Q5M PRN SL ANGINA Last administered on 11/11/16 23:25; Admin Dose 1 TAB; Start 11/11/16 at 16:00 Efavirenz (Sustiva) 600 mg DAILY PO Last administered on 12/15/16 08:57; Admin Dose 600 MG; Start 11/12/16 at 09:00 Emtricitabine/ Tenofovir (Truvada) 1 tab DAILY PO Last administered on 08:57; Admin Dose 1 TAB; Start 11/12/16 at 09:00 Sucralfate (Carafate) 1 gm QID PO Last administered on 12/15/16 08:57; Admin Dose 1 GM; Start 11/11/16 at 17:00 Collagenase (Santyl) 1 applic DAILY TOP Last administered on 12/15/16 08:59; Admin Dose 1 APPLIC; Start 11/12/16 at 13:00 Collagenase (Santyl) 1 applic PRN PRN TOP WOUND CARE; Start 11/12/16 at 12:00 Mesalamine (Delzicol Dr) 800 mg QID PO Last administered on 12/15/16 08:57; Admin Dose 800 MG; Start 11/12/16 at 21:00 Fluconazole (Diflucan) 100 mg DAILY PO Last administered on 12/15/16 08:57; Admin Dose 100 MG; Start 11/13/16 at 09:00 Lactobacillus Acidophilus (Florajen3 Capsule) 1 each BID PO Last administered on 12/15/16 08:56; Admin Dose 1 EACH; Start 11/13/16 at 21:00 Pantoprazole (Protonix Tab) 40 mg BID@,18 PO Last administered on 12/15/16 05:28; Admin Dose 40 MG; Start 11/28/16 at 06:00 Metoclopramide HCl (Reglan) 5 mg TID PO Last administered on 12/15/16 08:57; Admin Dose 5 MG; Start 11/27/16 at 21:00 Levetiracetam (Keppra) 500 mg BID PO Last administered on 12/15/16 08:57; Admin Dose 500 MG; Start 11/27/16 at 21:00 Potassium Chloride (Klor-Con 20) 40 meq BID PO Last administered on 12/15/16 08:58; Admin Dose 40 MEQ; Start 11/27/16 at 21:00 Enoxaparin Sodium (Lovenox) 40 mg DAILY SC Last administered on 12/08/16 09:59 ; Admin Dose 40 MG; Start 11/29/16 at 09:00; Status Future Hold Magnesium Oxide (Mag-Ox 400) 400 mg TID PO Last administered on 12/15/16 08:57 ; Admin Dose 400 MG; Start 11/30/16 at 21:00 Metoprolol Tartrate (Lopressor) 12.5 mg BID PO Last administered on 12/15/16 08:58; Admin Dose 12.5 MG; Start 12/06/16 at 21:00 GALINA CISSE NP Dec 15, 2016 10:31
--- NOTE | 2016-12-15 13:59 | CONS ---
Date/Time of Note Date/Time of Note DATE: 12/15/16 TIME: 13:58 Assessment/Plan Assessment/Plan Chief Complaint/Hosp Course SUBJECTIVE: No events overnight, no fevers, looks comfortable INDWELLINGS: Hughes catheter, PICC line. ANTIMICROBIALS: 2. Fluconazole. 3. Truvada. 4. Sustiva. PHYSICAL EXAMINATION: GENERAL: Cachectic, well-developed, middle-aged white woman who is alert, in no distress. HEENT: Head atraumatic, normocephalic. Sclerae anicteric. Buccal mucosa dry. NECK: Supple. CHEST: Rise symmetrical. Breath sounds diminished to bases. HEART: S1, S2. ABDOMEN: Soft, bowel tones present. EXTREMITIES: Without cyanosis. ASSESSMENT: 1. Status post septic shock secondary to urinary tract infection and pneumonia. 2. Status post colitis. 3. Human immunodeficiency virus disease with CD4 count 241 on 11/25/2016. 4. Multiple chronic wounds. 5. Cachexia with severe protein calorie malnutrition. 6. History of Inocencia esophagitis. 7. Status post seizure with postictal encephalopathy. PLAN: The patient remains unchanged. Continue present care, MAYERS, PT, optimize nutrition DW staff Problems: Consultation Date/Type/Reason Admit Date/Time November 11, 2016 at 15:19 Initial Consult Date 11/11/16 Type of Consultation: ID Referring Provider: JESUS RUIZ Exam/Review of Systems Vital Signs Vitals Vital Signs Date Time Temp Pulse Resp B/P Pulse Ox O2 Delivery O2 Flow Rate FiO2 12/15/16 08:16 98.1 92 18 128/78 97 12/14/16 20:00 Room Air Intake and Output 12/14/16 12/14/16 12/15/16 15:00 23:00 07:00 Intake Total 930 ml 600 ml Output Total 1000 ml 1050 ml Balance -70 ml -450 ml Results Result Diagram: 12/15/16 0430 12/15/16 0430 Results 24 hrs Laboratory Tests Test 12/15/16 04:30 White Blood Count 6.9 Red Blood Count 3.52 L Hemoglobin 10.2 L Hematocrit 32.7 L Mean Corpuscular Volume 92.9 Mean Corpuscular Hemoglobin 29.0 Mean Corpuscular Hemoglobin Concent 31.2 L Red Cell Distribution Width 18.6 H Platelet Count 220 Mean Platelet Volume 8.7 Neutrophils % 75.1 Lymphocytes % 14.7 L Monocytes % 6.1 Eosinophils % 0.9 Basophils % 0.9 Nucleated Red Blood Cells % 0.0 Neutrophils # 5.1 Lymphocytes # 1.0 Monocytes # 0.4 Eosinophils # 0.1 Basophils # 0.1 Nucleated Red Blood Cells # 0.0 Sodium Level 135 Potassium Level 4.5 Chloride Level 104 Carbon Dioxide Level 27 Anion Gap 9 Blood Urea Nitrogen 27 H Creatinine 0.64 Glucose Level 94 Calcium Level 8.5 Medications Medications Current Medications Ondansetron HCl (Zofran Inj) 4 mg Q6H PRN IV NAUSEA AND/OR VOMITING Last administered on 12/01/16 09:59; Admin Dose 4 MG; Start 11/11/16 at 16:00 Acetaminophen (Tylenol Tab) 650 mg Q6H PRN PO PAIN LEVEL 1-3 OR FEVER; Start at 16:00 Magnesium Hydroxide (Milk Of Mag) 30 ml DAILY PRN PO CONSTIPATION; Start at 16:00 Sodium Biphosphate/ Sodium Phosphate (Fleet Enema) 133 ml DAILY PRN [place] CONSTIPATION; Start 11/11/16 at 16:00 Hydralazine HCl (Apresoline) 10 mg Q6H PRN IV ELEVATED BLOOD PRESSURE; Start at 16:00 Nitroglycerin (Nitroglycerin (Sl Tab) 0.4 Mg) 1 tab Q5M PRN SL ANGINA Last administered on 11/11/16 23:25; Admin Dose 1 TAB; Start 11/11/16 at 16:00 Efavirenz (Sustiva) 600 mg DAILY PO Last administered on 12/15/16 08:57; Admin Dose 600 MG; Start 11/12/16 at 09:00 Emtricitabine/ Tenofovir (Truvada) 1 tab DAILY PO Last administered on 08:57; Admin Dose 1 TAB; Start 11/12/16 at 09:00 Sucralfate (Carafate) 1 gm QID PO Last administered on 12/15/16 13:38; Admin Dose 1 GM; Start 11/11/16 at 17:00 Collagenase (Santyl) 1 applic DAILY TOP Last administered on 12/15/16 08:59; Admin Dose 1 APPLIC; Start 11/12/16 at 13:00 Collagenase (Santyl) 1 applic PRN PRN TOP WOUND CARE; Start 11/12/16 at 12:00 Mesalamine (Delzicol Dr) 800 mg QID PO Last administered on 12/15/16 13:38; Admin Dose 800 MG; Start 11/12/16 at 21:00 Fluconazole (Diflucan) 100 mg DAILY PO Last administered on 12/15/16 08:57; Admin Dose 100 MG; Start 11/13/16 at 09:00 Lactobacillus Acidophilus (Florajen3 Capsule) 1 each BID PO Last administered on 12/15/16 08:56; Admin Dose 1 EACH; Start 11/13/16 at 21:00 Pantoprazole (Protonix Tab) 40 mg BID@ PO Last administered on 12/15/16 05:28; Admin Dose 40 MG; Start 11/28/16 at 06:00 Metoclopramide HCl (Reglan) 5 mg TID PO Last administered on 12/15/16 13:38; Admin Dose 5 MG; Start 11/27/16 at 21:00 Levetiracetam (Keppra) 500 mg BID PO Last administered on 12/15/16 08:57; Admin Dose 500 MG; Start 11/27/16 at 21:00 Potassium Chloride (Klor-Con 20) 40 meq BID PO Last administered on 12/15/16 08:58; Admin Dose 40 MEQ; Start 11/27/16 at 21:00 Enoxaparin Sodium (Lovenox) 40 mg DAILY SC Last administered on 12/08/16 09:59 ; Admin Dose 40 MG; Start 11/29/16 at 09:00; Status Future Hold Magnesium Oxide (Mag-Ox 400) 400 mg TID PO Last administered on 12/15/16 13:38 ; Admin Dose 400 MG; Start 11/30/16 at 21:00 Metoprolol Tartrate (Lopressor) 12.5 mg BID PO Last administered on 12/15/16 08:58; Admin Dose 12.5 MG; Start 12/06/16 at 21:00 AGUILA BURGOS NP Dec 15, 2016 13:59
--- NOTE | 2016-12-15 17:08 | PN ---
Date/Time of Note Date/Time of Note DATE: 12/15/16 TIME: 17:05 Assessment/Plan VTE Prophylaxis VTE Prophylaxis Intervention: SCD's Lines/Catheters IV Catheter Type (from Nrs): PICC Line Central line still needed: Yes (will order d/c ) Urinary Cath still in place: Yes (will order d/c) Reason Cath still needed: other (indicate) Assessment/Plan Assessment/Plan IMPRESSION: 1. Status post lower gastrointestinal bleed. 2. Status post upper and lower endoscopy, showing severe ulcerative esophagitis and ulcerative colitis. 3. Anemia, requiring transfusion. 4. Human immunodeficiency virus positive. 5. Deconditioning. 6. Multiple wounds. 7. History of substance abuse. 8. History of depression. 9. Severe malnutrition. 10. Status post urinary tract infection. 11. Seizure disorder. PLAN: 1. Continue the current treatment / rehab 2. Case mgt working on placement Subjective 24 Hr Interval Summary Free Text/Dictation reports no new issues Exam/Review of Systems Vital Signs Vitals Vital Signs Date Time Temp Pulse Resp B/P Pulse Ox O2 Delivery O2 Flow Rate FiO2 12/15/16 08:16 98.1 92 18 128/78 97 12/14/16 20:00 Room Air Intake and Output 12/14/16 12/14/16 12/15/16 15:00 23:00 07:00 Intake Total 930 ml 600 ml Output Total 1000 ml 1050 ml Balance -70 ml -450 ml Exam HEENT: Pupils are equal and react to light. NECK: Supple. No JVD noted, no cervical adenopathy noted, no carotid bruits heard. LUNGS: Fair breath sounds bilaterally. CARDIOVASCULAR: S1, S2 normal. ABDOMEN: Soft, nontender. No organomegaly or masses noted. EXTREMITIES: No clubbing, cyanosis, or edema. NEUROLOGICAL: Awake. Results Result Diagram: 12/15/16 0430 12/15/16 0430 Results 24 hrs Laboratory Tests Test 12/15/16 04:30 White Blood Count 6.9 Red Blood Count 3.52 L Hemoglobin 10.2 L Hematocrit 32.7 L Mean Corpuscular Volume 92.9 Mean Corpuscular Hemoglobin 29.0 Mean Corpuscular Hemoglobin Concent 31.2 L Red Cell Distribution Width 18.6 H Platelet Count 220 Mean Platelet Volume 8.7 Neutrophils % 75.1 Lymphocytes % 14.7 L Monocytes % 6.1 Eosinophils % 0.9 Basophils % 0.9 Nucleated Red Blood Cells % 0.0 Neutrophils # 5.1 Lymphocytes # 1.0 Monocytes # 0.4 Eosinophils # 0.1 Basophils # 0.1 Nucleated Red Blood Cells # 0.0 Sodium Level 135 Potassium Level 4.5 Chloride Level 104 Carbon Dioxide Level 27 Anion Gap 9 Blood Urea Nitrogen 27 H Creatinine 0.64 Glucose Level 94 Calcium Level 8.5 Medications Medications Current Medications Ondansetron HCl (Zofran Inj) 4 mg Q6H PRN IV NAUSEA AND/OR VOMITING Last administered on 12/01/16 09:59; Admin Dose 4 MG; Start 11/11/16 at 16:00 Acetaminophen (Tylenol Tab) 650 mg Q6H PRN PO PAIN LEVEL 1-3 OR FEVER; Start at 16:00 Magnesium Hydroxide (Milk Of Mag) 30 ml DAILY PRN PO CONSTIPATION; Start at 16:00 Sodium Biphosphate/ Sodium Phosphate (Fleet Enema) 133 ml DAILY PRN [place] CONSTIPATION; Start 11/11/16 at 16:00 Hydralazine HCl (Apresoline) 10 mg Q6H PRN IV ELEVATED BLOOD PRESSURE; Start at 16:00 Nitroglycerin (Nitroglycerin (Sl Tab) 0.4 Mg) 1 tab Q5M PRN SL ANGINA Last administered on 11/11/16 23:25; Admin Dose 1 TAB; Start 11/11/16 at 16:00 Efavirenz (Sustiva) 600 mg DAILY PO Last administered on 12/15/16 08:57; Admin Dose 600 MG; Start 11/12/16 at 09:00 Emtricitabine/ Tenofovir (Truvada) 1 tab DAILY PO Last administered on 08:57; Admin Dose 1 TAB; Start 11/12/16 at 09:00 Sucralfate (Carafate) 1 gm QID PO Last administered on 12/15/16 13:38; Admin Dose 1 GM; Start 11/11/16 at 17:00 Collagenase (Santyl) 1 applic DAILY TOP Last administered on 12/15/16 15:30; Admin Dose 1 APPLIC; Start 11/12/16 at 13:00 Collagenase (Santyl) 1 applic PRN PRN TOP WOUND CARE; Start 11/12/16 at 12:00 Mesalamine (Delzicol Dr) 800 mg QID PO Last administered on 12/15/16 13:38; Admin Dose 800 MG; Start 11/12/16 at 21:00 Fluconazole (Diflucan) 100 mg DAILY PO Last administered on 12/15/16 08:57; Admin Dose 100 MG; Start 11/13/16 at 09:00 Lactobacillus Acidophilus (Florajen3 Capsule) 1 each BID PO Last administered on 12/15/16 08:56; Admin Dose 1 EACH; Start 11/13/16 at 21:00 Pantoprazole (Protonix Tab) 40 mg BID@ PO Last administered on 12/15/16 05:28; Admin Dose 40 MG; Start 11/28/16 at 06:00 Metoclopramide HCl (Reglan) 5 mg TID PO Last administered on 12/15/16 13:38; Admin Dose 5 MG; Start 11/27/16 at 21:00 Levetiracetam (Keppra) 500 mg BID PO Last administered on 12/15/16 08:57; Admin Dose 500 MG; Start 11/27/16 at 21:00 Potassium Chloride (Klor-Con 20) 40 meq BID PO Last administered on 12/15/16 08:58; Admin Dose 40 MEQ; Start 11/27/16 at 21:00 Enoxaparin Sodium (Lovenox) 40 mg DAILY SC Last administered on 12/08/16 09:59 ; Admin Dose 40 MG; Start 11/29/16 at 09:00; Status Future Hold Magnesium Oxide (Mag-Ox 400) 400 mg TID PO Last administered on 12/15/16 13:38 ; Admin Dose 400 MG; Start 11/30/16 at 21:00 Metoprolol Tartrate (Lopressor) 12.5 mg BID PO Last administered on 12/15/16 08:58; Admin Dose 12.5 MG; Start 12/06/16 at 21:00 FERNANDO HOOD Dec 15, 2016 17:08
--- NOTE | 2016-12-15 17:37 | CONS ---
Date/Time of Note Date/Time of Note DATE: 12/15/16 TIME: 17:36 Assessment/Plan Assessment/Plan Additional Assessment/Plan 1. Severe hyperchloremia with a chloride of 117on admission, now resolved 2. Acute encephalopathy. 3. Status post hemorrhagic shock. 4. Human immunodeficiency virus positive with CD4 count of 157. 5. Positive colitis. 6. Multiple decubitus ulcers. 7. Status post urinary tract infection and sepsis on admission. 8. Depression. 9. Hypomagnesemia- s/p replacement PLAN: on PO KCL replacement 40mEQ BID Electrolytes stable today will follow up Consultation Date/Type/Reason Admit Date/Time November 11, 2016 at 15:19 Type of Consultation: NEPHROLOGY Referring Provider: JESUS RUIZ 24 HR Interval Summary Free Text/Dictation afebrile, BP stable, no complaints Exam/Review of Systems Vital Signs Vitals Vital Signs Date Time Temp Pulse Resp B/P Pulse Ox O2 Delivery O2 Flow Rate FiO2 12/15/16 08:16 98.1 92 18 128/78 97 12/14/16 20:00 Room Air Intake and Output 12/14/16 12/14/16 12/15/16 15:00 23:00 07:00 Intake Total 930 ml 600 ml Output Total 1000 ml 1050 ml Balance -70 ml -450 ml Results Result Diagram: 12/15/16 0430 12/15/16 0430 Results 24 hrs Laboratory Tests Test 12/15/16 04:30 White Blood Count 6.9 Red Blood Count 3.52 L Hemoglobin 10.2 L Hematocrit 32.7 L Mean Corpuscular Volume 92.9 Mean Corpuscular Hemoglobin 29.0 Mean Corpuscular Hemoglobin Concent 31.2 L Red Cell Distribution Width 18.6 H Platelet Count 220 Mean Platelet Volume 8.7 Neutrophils % 75.1 Lymphocytes % 14.7 L Monocytes % 6.1 Eosinophils % 0.9 Basophils % 0.9 Nucleated Red Blood Cells % 0.0 Neutrophils # 5.1 Lymphocytes # 1.0 Monocytes # 0.4 Eosinophils # 0.1 Basophils # 0.1 Nucleated Red Blood Cells # 0.0 Sodium Level 135 Potassium Level 4.5 Chloride Level 104 Carbon Dioxide Level 27 Anion Gap 9 Blood Urea Nitrogen 27 H Creatinine 0.64 Glucose Level 94 Calcium Level 8.5 Medications Medications Current Medications Ondansetron HCl (Zofran Inj) 4 mg Q6H PRN IV NAUSEA AND/OR VOMITING Last administered on 12/01/16 09:59; Admin Dose 4 MG; Start 11/11/16 at 16:00 Acetaminophen (Tylenol Tab) 650 mg Q6H PRN PO PAIN LEVEL 1-3 OR FEVER; Start at 16:00 Magnesium Hydroxide (Milk Of Mag) 30 ml DAILY PRN PO CONSTIPATION; Start at 16:00 Sodium Biphosphate/ Sodium Phosphate (Fleet Enema) 133 ml DAILY PRN [place] CONSTIPATION; Start 11/11/16 at 16:00 Hydralazine HCl (Apresoline) 10 mg Q6H PRN IV ELEVATED BLOOD PRESSURE; Start at 16:00 Nitroglycerin (Nitroglycerin (Sl Tab) 0.4 Mg) 1 tab Q5M PRN SL ANGINA Last administered on 11/11/16 23:25; Admin Dose 1 TAB; Start 11/11/16 at 16:00 Efavirenz (Sustiva) 600 mg DAILY PO Last administered on 12/15/16 08:57; Admin Dose 600 MG; Start 11/12/16 at 09:00 Emtricitabine/ Tenofovir (Truvada) 1 tab DAILY PO Last administered on 08:57; Admin Dose 1 TAB; Start 11/12/16 at 09:00 Sucralfate (Carafate) 1 gm QID PO Last administered on 12/15/16 13:38; Admin Dose 1 GM; Start 11/11/16 at 17:00 Collagenase (Santyl) 1 applic DAILY TOP Last administered on 12/15/16 15:30; Admin Dose 1 APPLIC; Start 11/12/16 at 13:00 Collagenase (Santyl) 1 applic PRN PRN TOP WOUND CARE; Start 11/12/16 at 12:00 Mesalamine (Delzicol Dr) 800 mg QID PO Last administered on 12/15/16 13:38; Admin Dose 800 MG; Start 11/12/16 at 21:00 Fluconazole (Diflucan) 100 mg DAILY PO Last administered on 12/15/16 08:57; Admin Dose 100 MG; Start 11/13/16 at 09:00 Lactobacillus Acidophilus (Florajen3 Capsule) 1 each BID PO Last administered on 12/15/16 08:56; Admin Dose 1 EACH; Start 11/13/16 at 21:00 Pantoprazole (Protonix Tab) 40 mg BID@,18 PO Last administered on 12/15/16 05:28; Admin Dose 40 MG; Start 11/28/16 at 06:00 Metoclopramide HCl (Reglan) 5 mg TID PO Last administered on 12/15/16 13:38; Admin Dose 5 MG; Start 11/27/16 at 21:00 Levetiracetam (Keppra) 500 mg BID PO Last administered on 12/15/16 08:57; Admin Dose 500 MG; Start 11/27/16 at 21:00 Potassium Chloride (Klor-Con 20) 40 meq BID PO Last administered on 12/15/16 08:58; Admin Dose 40 MEQ; Start 11/27/16 at 21:00 Enoxaparin Sodium (Lovenox) 40 mg DAILY SC Last administered on 12/08/16 09:59 ; Admin Dose 40 MG; Start 11/29/16 at 09:00; Status Future Hold Magnesium Oxide (Mag-Ox 400) 400 mg TID PO Last administered on 12/15/16 13:38 ; Admin Dose 400 MG; Start 11/30/16 at 21:00 Metoprolol Tartrate (Lopressor) 12.5 mg BID PO Last administered on 12/15/16 08:58; Admin Dose 12.5 MG; Start 12/06/16 at 21:00 ASHISH MENDOZA MD Dec 15, 2016 17:37
[2016-12-15 20:47] VITALS: BP 123/82; RESP 20
[2016-12-15 22:30] VITALS: BP 126/87; PULSE 103
[2016-12-16] MEDS: PANTOPRAZOLE (EC) 40 MG TAB PO SCH ×2 (05:33→17:59)
[2016-12-16 08:01] VITALS: BP 122/84; RESP 18
[2016-12-16] MEDS: EFAVIRENZ 600 MG TAB PO SCH ×2 (09:26→23:48)
[2016-12-16] MEDS: EMTRICITABINE/TENOFOVIR TAB PO SCH (09:26)
[2016-12-16] MEDS: L ACIDOPHIL/B LACTIS/B LONGUM CAPSULE PO SCH (09:26)
[2016-12-16] MEDS: LEVETIRACETAM 500 MG TAB PO SCH ×2 (09:26→22:26)
[2016-12-16] MEDS: FLUCONAZOLE 100 MG TAB PO SCH (09:27)
[2016-12-16] MEDS: MAGNESIUM OXIDE 400 MG TAB PO SCH ×3 (09:27→22:28)
[2016-12-16] MEDS: METOCLOPRAMIDE 5 MG TAB PO SCH ×3 (09:27→22:27)
[2016-12-16] MEDS: POTASSIUM CHLORIDE (SR) 20 MEQ TAB PO SCH ×2 (09:27→22:28)
[2016-12-16] MEDS: SUCRALFATE 1 GM TAB PO SCH ×4 (09:27→22:26)
[2016-12-16] MEDS: METOPROLOL 25 MG TAB PO SCH ×2 (09:28→22:27)
[2016-12-16] MEDS: COLLAGENASE 30 GM TUBE TOP SCH (09:28)
[2016-12-16] MEDS: MESALAMINE (EC) 400 MG CAP PO SCH ×4 (09:39→23:55)
--- NOTE | 2016-12-16 12:29 | PN ---
Date/Time of Note Date/Time of Note DATE: 12/16/16 TIME: 12:26 Assessment/Plan VTE Prophylaxis VTE Prophylaxis Intervention: SCD's Lines/Catheters IV Catheter Type (from Nrsg): PICC Line Central line still needed: Yes Urinary Cath still in place: Yes Reason Cath still needed: other (indicate) Assessment/Plan Assessment/Plan 1. Status post lower gastrointestinal bleed. 2. Status post upper and lower endoscopy, showing severe ulcerative esophagitis and ulcerative colitis. 3. Anemia, requiring transfusion. 4. Human immunodeficiency virus positive. 5. Deconditioning. 6. Multiple wounds. 7. History of substance abuse. 8. History of depression. 9. Severe malnutrition + HIV associated anorexia 10. Status post urinary tract infection. 11. Seizure disorder. PLAN: 1. Continue the current treatment / rehab 2. Case mgt working on placement 3. Bladder training in progress / plan to d/c limon by tomorrow 4. Megace / boost / MVI / Zinc. ?Gtube Subjective 24 Hr Interval Summary Free Text/Dictation Patient seems to be eating better, concerns about malnutrition noted. Dietary notes also reviewed. Exam/Review of Systems Vital Signs Vitals Vital Signs Date Time Temp Pulse Resp B/P Pulse Ox O2 Delivery O2 Flow Rate FiO2 12/16/16 08:01 98.7 67 18 122/84 94 12/14/16 20:00 Room Air Intake and Output 12/15/16 12/15/16 12/16/16 15:00 23:00 07:00 Intake Total 1250 ml 600 ml Output Total 950 ml 1000 ml Balance 300 ml -400 ml Exam HEENT: Pupils are equal and react to light. NECK: Supple. No JVD noted, no cervical adenopathy noted, no carotid bruits heard. LUNGS: Fair breath sounds bilaterally. CARDIOVASCULAR: S1, S2 normal. ABDOMEN: Soft, nontender. No organomegaly or masses noted. EXTREMITIES: No clubbing, cyanosis, or edema. NEUROLOGICAL: Awake Results Result Diagram: 12/15/1642912/15/16429 Medications Medications Current Medications Ondansetron HCl (Zofran Inj) 4 mg Q6H PRN IV NAUSEA AND/OR VOMITING Last administered on 12/01/16t 09:59; Admin Dose 4 MG; Start 11/11/16 at 16:00 Acetaminophen (Tylenol Tab) 650 mg Q6H PRN PO PAIN LEVEL 1-3 OR FEVER; Start at 16:00 Magnesium Hydroxide (Milk Of Mag) 30 ml DAILY PRN PO CONSTIPATION; Start at 16:00 Sodium Biphosphate/ Sodium Phosphate (Fleet Enema) 133 ml DAILY PRN [place] CONSTIPATION; Start 11/11/16 at 16:00 Hydralazine HCl (Apresoline) 10 mg Q6H PRN IV ELEVATED BLOOD PRESSURE; Start at 16:00 Nitroglycerin (Nitroglycerin (Sl Tab) 0.4 Mg) 1 tab Q5M PRN SL ANGINA Last administered on 11/11/16 23:25; Admin Dose 1 TAB; Start 11/11/16 at 16:00 Efavirenz (Sustiva) 600 mg DAILY PO Last administered on 12/16/16 09:26; Admin Dose 600 MG; Start 11/12/16 at 09:00 Emtricitabine/ Tenofovir (Truvada) 1 tab DAILY PO Last administered on 09:26; Admin Dose 1 TAB; Start 11/12/16 at 09:00 Sucralfate (Carafate) 1 gm QID PO Last administered on 12/16/16 09:27; Admin Dose 1 GM; Start 11/11/16 at 17:00 Collagenase (Santyl) 1 applic DAILY TOP Last administered on 12/16/16 09:28; Admin Dose 1 APPLIC; Start 11/12/16 at 13:00 Collagenase (Santyl) 1 applic PRN PRN TOP WOUND CARE; Start 11/12/16 at 12:00 Mesalamine (Delzicol Dr) 800 mg QID PO Last administered on 12/16/16 09:39; Admin Dose 800 MG; Start 11/12/16 at 21:00 Fluconazole (Diflucan) 100 mg DAILY PO Last administered on 12/16/16 09:27; Admin Dose 100 MG; Start 11/13/16 at 09:00 Lactobacillus Acidophilus (Florajen3 Capsule) 1 each BID PO Last administered on 12/16/16 09:26; Admin Dose 1 EACH; Start 11/13/16 at 21:00 Pantoprazole (Protonix Tab) 40 mg BID@,18 PO Last administered on 12/16/16 05:33; Admin Dose 40 MG; Start 11/28/16 at 06:00 Metoclopramide HCl (Reglan) 5 mg TID PO Last administered on 12/16/16 09:27; Admin Dose 5 MG; Start 11/27/16 at 21:00 Levetiracetam (Keppra) 500 mg BID PO Last administered on 12/16/16 09:26; Admin Dose 500 MG; Start 11/27/16 at 21:00 Potassium Chloride (Klor-Con 20) 40 meq BID PO Last administered on 12/16/16 09:27; Admin Dose 40 MEQ; Start 11/27/16 at 21:00 Enoxaparin Sodium (Lovenox) 40 mg DAILY SC Last administered on 12/08/16 09:59 ; Admin Dose 40 MG; Start 11/29/16 at 09:00; Status Future Hold Magnesium Oxide (Mag-Ox 400) 400 mg TID PO Last administered on 12/16/16 09:27 ; Admin Dose 400 MG; Start 11/30/16 at 21:00 Metoprolol Tartrate (Lopressor) 12.5 mg BID PO Last administered on 12/16/16 09:28; Admin Dose 12.5 MG; Start 12/06/16 at 21:00 FERNANDO HOOD Dec 16, 2016 12:29
[2016-12-16] MEDS: ZINC SULFATE 220 MG CAP PO SCH (13:01)
[2016-12-16] MEDS: MEGESTROL (40 MG/ML) 10ML CUP PO SCH ×2 (13:02→22:27)
--- NOTE | 2016-12-16 13:02 | PN ---
Date/Time of Note Date/Time of Note DATE: 12/16/16 TIME: 12:53 Assessment/Plan Lines/Catheters IV Catheter Type (from Nrs): PICC Line Limon in Place (from Nrs): Yes Assessment/Plan Assessment/Plan 1. Right lower quadrant serous fluid leak through a pinpoint had possible previous site of femoral access attempts. Differential diagnosis includes peritoneal fluid versus urine versus other. Resolved. -No leak noted from right groin; skin healed; dry and intact 2. Recent rectal bleeding with hemorrhagic shock & Anemia s/p transfusions: Resolved; no rectal bleed H/H remains stable -Monitor closely -Contine PPIs and Carafate 3. Esophagitis: EGD 11/12/2016: Severe ulcerated esophagitis/Inocencia esophagitis; Colonoscopy 11/12/2016: [place] ulcerative colitis. Moderate sized internal hemorrhoids - Continue antimicrobials per ID - Continue PPI 4. Pneumonia: CXR 11/25: Left lower greater than right lower lobe pneumonia with small bilateral pleural effusions; Patient afebrile with normalized WBC; patient on room air - Monitor for recurrence - Encourage mobilization 5. HIV positive -Continue medications 6. UTI with E. coli and Proteus; improved; no frequency or urgency; limon - Limon needed? otherwise may be beneficial to remove -Antibiotics 5. Multiple chronic wounds -Local care with offloading and frequent turning -May benefit from specialty bed if continued hospitalization -Nutrition optimization -Vitamin C 6. History of polysubstance abuse including tobacco -Encourage cessation 7. Psychiatric disorder with depression -Start antidepressants? -Medical and psychiatric optimization 8. Severe protein calorie malnutrition and hypoalbuminemia -Encourage nutritional optimization -Encourage foods that patient likes Patient seen and examined in collaboration with Dr. Pino Gao Subjective 24 Hr Interval Summary Constitutional: improved, no complaints, other (improved appetite and oral intake), No chills, No cough, No febrile, No shortness of breath Pain Control: well controlled Exam/Review of Systems Vital Signs Vitals Vital Signs Date Time Temp Pulse Resp B/P Pulse Ox O2 Delivery O2 Flow Rate FiO2 12/16/16 08:01 98.7 67 18 122/84 94 12/14/16 20:00 Room Air Intake and Output 12/15/16 12/15/16 12/16/16 15:00 23:00 07:00 Intake Total 1250 ml 600 ml Output Total 950 ml 1000 ml Balance 300 ml -400 ml Exam Constitutional: alert, oriented, No well developed (cachexia) Psych: nl mood/affect, no complaints Head: atraumatic, normocephalic Eyes: nl lids, nl sclera ENMT: mucosa pink and moist, nl external ears & nose Neck: non-tender, supple Respiratory: clear to auscultation Cardiovascular: nl pulses, regular rate and rhythm Gastrointestinal: soft, No distended, No non-tender Genitourinary - Female: nl external genitalia Musculoskeletal: nl extremities to inspection Extremities: normal pulses Neurological: nl mental status, nl speech, nl strength Skin: other (multiple wounds), No rash or lesions Results Result Diagram: 12/15/1642912/15/16 0430 GALINA CISSE NP Dec 16, 2016 13:02
--- NOTE | 2016-12-16 17:58 | CONS ---
Date/Time of Note Date/Time of Note DATE: 12/16/16 TIME: 17:57 Assessment/Plan Assessment/Plan Additional Assessment/Plan 1. Severe hyperchloremia with a chloride of 117on admission, now resolved 2. Acute encephalopathy. 3. Status post hemorrhagic shock. 4. Human immunodeficiency virus positive with CD4 count of 157. 5. Positive colitis. 6. Multiple decubitus ulcers. 7. Status post urinary tract infection and sepsis on admission. 8. Depression. 9. Hypomagnesemia- s/p replacement PLAN: on PO KCL replacement 40mEQ BID Electrolytes stable, no labs today to review yet will follow up Consultation Date/Type/Reason Admit Date/Time November 11, 2016 at 15:19 Type of Consultation: NEPHROLOGY Referring Provider: JESUS RUIZ Exam/Review of Systems Vital Signs Vitals Vital Signs Date Time Temp Pulse Resp B/P Pulse Ox O2 Delivery O2 Flow Rate FiO2 12/16/16 08:01 98.7 67 18 122/84 94 12/14/16 20:00 Room Air Intake and Output 12/15/16 12/15/16 12/16/16 15:00 23:00 07:00 Intake Total 1250 ml 600 ml Output Total 950 ml 1000 ml Balance 300 ml -400 ml Exam GENERAL: This is a chronically ill-appearing, cachectic, wasted, middle-aged white woman who is lying comfortably in bed. HEENT: Head atraumatic, normocephalic. Sclerae anicteric. Buccal mucosa dry. NECK: Supple. CHEST: Rise symmetrical. Breath sounds diminished. HEART: S1, S2. ABDOMEN: Soft. Bowel tones present. EXTREMITIES: Without cyanosis. Bilateral edema. Results Result Diagram: 12/15/16 0430 12/15/16 0430 Medications Medications Current Medications Ondansetron HCl (Zofran Inj) 4 mg Q6H PRN IV NAUSEA AND/OR VOMITING Last administered on 12/01/16t 09:59; Admin Dose 4 MG; Start 11/11/16 at 16:00 Acetaminophen (Tylenol Tab) 650 mg Q6H PRN PO PAIN LEVEL 1-3 OR FEVER; Start at 16:00 Magnesium Hydroxide (Milk Of Mag) 30 ml DAILY PRN PO CONSTIPATION; Start at 16:00 Sodium Biphosphate/ Sodium Phosphate (Fleet Enema) 133 ml DAILY PRN [place] CONSTIPATION; Start 11/11/16 at 16:00 Hydralazine HCl (Apresoline) 10 mg Q6H PRN IV ELEVATED BLOOD PRESSURE; Start at 16:00 Nitroglycerin (Nitroglycerin (Sl Tab) 0.4 Mg) 1 tab Q5M PRN SL ANGINA Last administered on 11/11/16 23:25; Admin Dose 1 TAB; Start 11/11/16 at 16:00 Efavirenz (Sustiva) 600 mg DAILY PO Last administered on 12/16/16 09:26; Admin Dose 600 MG; Start 11/12/16 at 09:00 Emtricitabine/ Tenofovir (Truvada) 1 tab DAILY PO Last administered on 09:26; Admin Dose 1 TAB; Start 11/12/16 at 09:00 Sucralfate (Carafate) 1 gm QID PO Last administered on 12/16/16 12:26; Admin Dose 1 GM; Start 11/11/16 at 17:00 Collagenase (Santyl) 1 applic DAILY TOP Last administered on 12/16/16 09:28; Admin Dose 1 APPLIC; Start 11/12/16 at 13:00 Collagenase (Santyl) 1 applic PRN PRN TOP WOUND CARE; Start 11/12/16 at 12:00 Mesalamine (Delzicol Dr) 800 mg QID PO Last administered on 12/16/16 12:26; Admin Dose 800 MG; Start 11/12/16 at 21:00 Fluconazole (Diflucan) 100 mg DAILY PO Last administered on 12/16/16 09:27; Admin Dose 100 MG; Start 11/13/16 at 09:00 Lactobacillus Acidophilus (Florajen3 Capsule) 1 each BID PO Last administered on 12/16/16 09:26; Admin Dose 1 EACH; Start 11/13/16 at 21:00 Pantoprazole (Protonix Tab) 40 mg BID@18 PO Last administered on 12/16/16 05:33; Admin Dose 40 MG; Start 11/28/16 at 06:00 Metoclopramide HCl (Reglan) 5 mg TID PO Last administered on 12/16/16 12:26; Admin Dose 5 MG; Start 11/27/16 at 21:00 Levetiracetam (Keppra) 500 mg BID PO Last administered on 12/16/16 09:26; Admin Dose 500 MG; Start 11/27/16 at 21:00 Potassium Chloride (Klor-Con 20) 40 meq BID PO Last administered on 12/16/16 09:27; Admin Dose 40 MEQ; Start 11/27/16 at 21:00 Enoxaparin Sodium (Lovenox) 40 mg DAILY SC Last administered on 12/08/16 09:59 ; Admin Dose 40 MG; Start 11/29/16 at 09:00; Status Future Hold Magnesium Oxide (Mag-Ox 400) 400 mg TID PO Last administered on 12/16/16 12:26 ; Admin Dose 400 MG; Start 11/30/16 at 21:00 Metoprolol Tartrate (Lopressor) 12.5 mg BID PO Last administered on 12/16/16 09:28; Admin Dose 12.5 MG; Start 12/06/16 at 21:00 Multivitamins Therapeutic (Theragran) 1 tab DAILY PO ; Start 12/17/16 at 09:00 Zinc Sulfate (Zinc Sulfate) 220 mg DAILY PO Last administered on 12/16/16 13: 01; Admin Dose 220 MG; Start 12/16/16 at 12:30 Megestrol Acetate (Megace Susp) 400 mg BID PO Last administered on 12/16/16 13 :02; Admin Dose 400 MG; Start 12/16/16 at 12:30 ASHISH MENDOZA MD Dec 16, 2016 17:58
[2016-12-16 20:14] VITALS: BP 127/81; RESP 20
--- NOTE | 2016-12-16 21:09 | CONS ---
Date/Time of Note Date/Time of Note DATE: 12/16/16 TIME: 21:08 Assessment/Plan Assessment/Plan Chief Complaint/Hosp Course SUBJECTIVE: No events overnight, no fevers, awake, looks comfortable INDWELLINGS: Hughes catheter, PICC line. ANTIMICROBIALS: 2. Fluconazole. 3. Truvada. 4. Sustiva. PHYSICAL EXAMINATION: GENERAL: Cachectic, well-developed, middle-aged white woman who is alert, in no distress. HEENT: Head atraumatic, normocephalic. Sclerae anicteric. Buccal mucosa dry. NECK: Supple. CHEST: Rise symmetrical. Breath sounds diminished to bases. HEART: S1, S2. ABDOMEN: Soft, bowel tones present. EXTREMITIES: Without cyanosis. ASSESSMENT: 1. Status post septic shock secondary to urinary tract infection and pneumonia. 2. Status post colitis. 3. Human immunodeficiency virus disease with CD4 count 241 on 11/25/2016. 4. Multiple chronic wounds. 5. Cachexia with severe protein calorie malnutrition. 6. History of Inocencia esophagitis. 7. Status post seizure with postictal encephalopathy. PLAN: The patient remains stable. Continue present care, [facility], continue bladder training, dc Hughes when ready DW staff Problems: Consultation Date/Type/Reason Admit Date/Time November 11, 2016 at 15:19 Initial Consult Date 11/11/16 Type of Consultation: ID Referring Provider: JESUS RUIZ Exam/Review of Systems Vital Signs Vitals Vital Signs Date Time Temp Pulse Resp B/P Pulse Ox O2 Delivery O2 Flow Rate FiO2 12/16/16 20:14 97.7 118 20 127/81 98 12/14/16 20:00 Room Air Intake and Output 12/15/16 12/15/16 12/16/16 15:00 23:00 07:00 Intake Total 1250 ml 600 ml Output Total 950 ml 1000 ml Balance 300 ml -400 ml Results Result Diagram: 12/15/16 0430 12/15/16 043 Medications Medications Current Medications Ondansetron HCl (Zofran Inj) 4 mg Q6H PRN IV NAUSEA AND/OR VOMITING Last administered on 12/01/16t 09:59; Admin Dose 4 MG; Start 11/11/16 at 16:00 Acetaminophen (Tylenol Tab) 650 mg Q6H PRN PO PAIN LEVEL 1-3 OR FEVER; Start at 16:00 Magnesium Hydroxide (Milk Of Mag) 30 ml DAILY PRN PO CONSTIPATION; Start at 16:00 Sodium Biphosphate/ Sodium Phosphate (Fleet Enema) 133 ml DAILY PRN [place] CONSTIPATION; Start 11/11/16 at 16:00 Hydralazine HCl (Apresoline) 10 mg Q6H PRN IV ELEVATED BLOOD PRESSURE; Start at 16:00 Nitroglycerin (Nitroglycerin (Sl Tab) 0.4 Mg) 1 tab Q5M PRN SL ANGINA Last administered on 11/11/16 23:25; Admin Dose 1 TAB; Start 11/11/16 at 16:00 Efavirenz (Sustiva) 600 mg DAILY PO Last administered on 12/16/16 09:26; Admin Dose 600 MG; Start 11/12/16 at 09:00 Emtricitabine/ Tenofovir (Truvada) 1 tab DAILY PO Last administered on 09:26; Admin Dose 1 TAB; Start 11/12/16 at 09:00 Sucralfate (Carafate) 1 gm QID PO Last administered on 12/16/16 17:59; Admin Dose 1 GM; Start 11/11/16 at 17:00 Collagenase (Santyl) 1 applic DAILY TOP Last administered on 12/16/16 09:28; Admin Dose 1 APPLIC; Start 11/12/16 at 13:00 Collagenase (Santyl) 1 applic PRN PRN TOP WOUND CARE; Start 11/12/16 at 12:00 Mesalamine (Delzicol Dr) 800 mg QID PO Last administered on 12/16/16 17:59; Admin Dose 800 MG; Start 11/12/16 at 21:00 Fluconazole (Diflucan) 100 mg DAILY PO Last administered on 12/16/16 09:27; Admin Dose 100 MG; Start 11/13/16 at 09:00 Lactobacillus Acidophilus (Florajen3 Capsule) 1 each BID PO Last administered on 12/16/16 09:26; Admin Dose 1 EACH; Start 11/13/16 at 21:00 Pantoprazole (Protonix Tab) 40 mg BID@,18 PO Last administered on 12/16/16 17:59; Admin Dose 40 MG; Start 11/28/16 at 06:00 Metoclopramide HCl (Reglan) 5 mg TID PO Last administered on 12/16/16 12:26; Admin Dose 5 MG; Start 11/27/16 at 21:00 Levetiracetam (Keppra) 500 mg BID PO Last administered on 12/16/16 09:26; Admin Dose 500 MG; Start 11/27/16 at 21:00 Potassium Chloride (Klor-Con 20) 40 meq BID PO Last administered on 12/16/16 09:27; Admin Dose 40 MEQ; Start 11/27/16 at 21:00 Enoxaparin Sodium (Lovenox) 40 mg DAILY SC Last administered on 12/08/16 09:59 ; Admin Dose 40 MG; Start 11/29/16 at 09:00; Status Future Hold Magnesium Oxide (Mag-Ox 400) 400 mg TID PO Last administered on 12/16/16 12:26 ; Admin Dose 400 MG; Start 11/30/16 at 21:00 Metoprolol Tartrate (Lopressor) 12.5 mg BID PO Last administered on 12/16/16 09:28; Admin Dose 12.5 MG; Start 12/06/16 at 21:00 Multivitamins Therapeutic (Theragran) 1 tab DAILY PO ; Start 12/17/16 at 09:00 Zinc Sulfate (Zinc Sulfate) 220 mg DAILY PO Last administered on 12/16/16 13: 01; Admin Dose 220 MG; Start 12/16/16 at 12:30 Megestrol Acetate (Megace Susp) 400 mg BID PO Last administered on 12/16/16 13 :02; Admin Dose 400 MG; Start 12/16/16 at 12:30 AGUILA BURGOS NP Dec 16, 2016 21:09
[2016-12-17] MEDS: L ACIDOPHIL/B LACTIS/B LONGUM CAPSULE PO SCH ×3 (01:58→21:41)
[2016-12-17] MEDS: PANTOPRAZOLE (EC) 40 MG TAB PO SCH ×2 (05:48→17:41)
[2016-12-17 06:00] LABS: ADD SCAN DIFF NO
[2016-12-17 06:18] LABS: BASOPHIL # 0.1 10^3/ul (0.0-0.1); BASOPHILS % 0.8 % (0.0-2.0); EOSINOPHILS % 0.4 % (0.0-7.0); HEMATOCRIT 34.8 % (37.0-47.0); HEMOGLOBIN 10.8 g/dl (12.0-16.0); LYMPHOCYTES # 1.3 10^3/ul (0.8-2.9); MEAN CORPUSCULAR VOLUME 93.3 fl (82.0-101.0); MEAN PLATELET VOLUME 8.7 fl (7.4-10.4); MONOCYTE # 0.7 10^3/ul (0.3-0.9); MONOCYTES % 9.1 % (0.0-11.0); NEUTROPHILS % 69.4 % (39.0-77.0); PLATELET COUNT 259 10^3/UL (140-415); RED BLOOD COUNT 3.73 10^6/ul (4.20-5.40); RED CELL DISTRIBUTION WIDTH 18.5 % (11.5-14.5); WHITE BLOOD COUNT 7.3 10^3/ul (4.8-10.8)
[2016-12-17 06:55] LABS: ALBUMIN 3.2 g/dl (3.3-4.9); CALCIUM 9.4 mg/dl (8.4-10.2); CREATININE 0.65 mg/dl (0.44-1.00); MAGNESIUM 1.8 mg/dl (1.7-2.5); PHOSPHORUS 3.3 mg/dl (2.5-4.9); POTASSIUM 4.5 mmol/L (3.5-5.1)
[2016-12-17 08:10] VITALS: BP 113/65; RESP 18
[2016-12-17] MEDS: EMTRICITABINE/TENOFOVIR TAB PO SCH (08:58)
[2016-12-17] MEDS: SUCRALFATE 1 GM TAB PO SCH ×4 (08:58→21:41)
[2016-12-17] MEDS: MAGNESIUM OXIDE 400 MG TAB PO SCH ×3 (08:58→21:41)
[2016-12-17] MEDS: ZINC SULFATE 220 MG CAP PO SCH (08:58)
[2016-12-17] MEDS: EFAVIRENZ 600 MG TAB PO SCH (08:58)
[2016-12-17] MEDS: LEVETIRACETAM 500 MG TAB PO SCH ×2 (08:58→21:41)
[2016-12-17] MEDS: MESALAMINE (EC) 400 MG CAP PO SCH ×4 (08:58→21:41)
[2016-12-17] MEDS: FLUCONAZOLE 100 MG TAB PO SCH (08:58)
[2016-12-17] MEDS: MEGESTROL (40 MG/ML) 10ML CUP PO SCH ×2 (08:58→21:41)
[2016-12-17] MEDS: MULTIVITAMINS THERAPEUTIC TAB PO SCH (08:58)
[2016-12-17] MEDS: POTASSIUM CHLORIDE (SR) 20 MEQ TAB PO SCH ×2 (08:58→21:41)
[2016-12-17] MEDS: METOPROLOL 25 MG TAB PO SCH ×2 (08:59→21:42)
[2016-12-17] MEDS: COLLAGENASE 30 GM TUBE TOP SCH ×2 (09:00→11:17)
[2016-12-17] MEDS: METOCLOPRAMIDE 5 MG TAB PO SCH ×3 (09:00→21:41)
--- NOTE | 2016-12-17 12:57 | CONS ---
Date/Time of Note Date/Time of Note DATE: 12/17/16 TIME: 12:56 Assessment/Plan Assessment/Plan Chief Complaint/Hosp Course SUBJECTIVE: No acute changes per report INDWELLINGS: Hughes catheter, PICC line. ANTIMICROBIALS: 2. Fluconazole. 3. Truvada. 4. Sustiva. PHYSICAL EXAMINATION: GENERAL: Cachectic, well-developed, middle-aged white woman who is alert, in no distress. HEENT: Head atraumatic, normocephalic. Sclerae anicteric. Buccal mucosa dry. NECK: Supple. CHEST: Rise symmetrical. Breath sounds diminished to bases. HEART: S1, S2. ABDOMEN: Soft, bowel tones present. EXTREMITIES: Without cyanosis. ASSESSMENT: 1. Status post septic shock secondary to urinary tract infection and pneumonia. 2. Status post colitis. 3. Human immunodeficiency virus disease with CD4 count 241 on 11/25/2016. 4. Multiple chronic wounds. 5. Cachexia with severe protein calorie malnutrition. 6. History of Inocencia esophagitis. 7. Status post seizure with postictal encephalopathy. PLAN: The patient remains stable. Continue present care, [facility] staff Problems: Consultation Date/Type/Reason Admit Date/Time November 11, 2016 at 15:19 Initial Consult Date 11/11/16 Type of Consultation: ID Referring Provider: JESUS RUIZ Exam/Review of Systems Vital Signs Vitals Vital Signs Date Time Temp Pulse Resp B/P Pulse Ox O2 Delivery O2 Flow Rate FiO2 12/17/16 08:10 97.8 104 18 113/65 98 12/14/16 20:00 Room Air Intake and Output 12/16/16 12/16/16 12/17/16 15:00 23:00 07:00 Intake Total 2040 ml 940 ml Output Total 1250 ml 800 ml Balance 790 ml 140 ml Results Result Diagram: 12/17/16 0440 12/17/16 0440 Results 24 hrs Laboratory Tests Test 12/17/16 04:40 White Blood Count 7.3 Red Blood Count 3.73 L Hemoglobin 10.8 L Hematocrit 34.8 L Mean Corpuscular Volume 93.3 Mean Corpuscular Hemoglobin 29.0 Mean Corpuscular Hemoglobin Concent 31.0 L Red Cell Distribution Width 18.5 H Platelet Count 259 Mean Platelet Volume 8.7 Neutrophils % 69.4 Lymphocytes % 18.0 Monocytes % 9.1 Eosinophils % 0.4 Basophils % 0.8 Nucleated Red Blood Cells % 0.0 Neutrophils # 5.0 Lymphocytes # 1.3 Monocytes # 0.7 Eosinophils # 0.0 Basophils # 0.1 Nucleated Red Blood Cells # 0.0 Sodium Level 141 Potassium Level 4.5 Chloride Level 108 Carbon Dioxide Level 27 Anion Gap 11 Blood Urea Nitrogen 24 H Creatinine 0.65 Glucose Level 95 Calcium Level 9.4 Phosphorus Level 3.3 Magnesium Level 1.8 Albumin 3.2 L Medications Medications Current Medications Ondansetron HCl (Zofran Inj) 4 mg Q6H PRN IV NAUSEA AND/OR VOMITING Last administered on 12/01/16 09:59; Admin Dose 4 MG; Start 11/11/16 at 16:00 Acetaminophen (Tylenol Tab) 650 mg Q6H PRN PO PAIN LEVEL 1-3 OR FEVER; Start at 16:00 Magnesium Hydroxide (Milk Of Mag) 30 ml DAILY PRN PO CONSTIPATION; Start at 16:00 Sodium Biphosphate/ Sodium Phosphate (Fleet Enema) 133 ml DAILY PRN [place] CONSTIPATION; Start 11/11/16 at 16:00 Hydralazine HCl (Apresoline) 10 mg Q6H PRN IV ELEVATED BLOOD PRESSURE; Start at 16:00 Nitroglycerin (Nitroglycerin (Sl Tab) 0.4 Mg) 1 tab Q5M PRN SL ANGINA Last administered on 11/11/16 23:25; Admin Dose 1 TAB; Start 11/11/16 at 16:00 Efavirenz (Sustiva) 600 mg DAILY PO Last administered on 12/17/16 08:58; Admin Dose 600 MG; Start 11/12/16 at 09:00 Emtricitabine/ Tenofovir (Truvada) 1 tab DAILY PO Last administered on 08:58; Admin Dose 1 TAB; Start 11/12/16 at 09:00 Sucralfate (Carafate) 1 gm QID PO Last administered on 12/17/16 08:58; Admin Dose 1 GM; Start 11/11/16 at 17:00 Collagenase (Santyl) 1 applic DAILY TOP Last administered on 12/17/16 11:17; Admin Dose 1 APPLIC; Start 11/12/16 at 13:00 Collagenase (Santyl) 1 applic PRN PRN TOP WOUND CARE; Start 11/12/16 at 12:00 Mesalamine (Delzicol Dr) 800 mg QID PO Last administered on 12/17/16 08:58; Admin Dose 800 MG; Start 11/12/16 at 21:00 Fluconazole (Diflucan) 100 mg DAILY PO Last administered on 12/17/16 08:58; Admin Dose 100 MG; Start 11/13/16 at 09:00 Lactobacillus Acidophilus (Florajen3 Capsule) 1 each BID PO Last administered on 12/17/16 08:58; Admin Dose 1 EACH; Start 11/13/16 at 21:00 Pantoprazole (Protonix Tab) 40 mg BID@ PO Last administered on 12/17/16 05:48; Admin Dose 40 MG; Start 11/28/16 at 06:00 Metoclopramide HCl (Reglan) 5 mg TID PO Last administered on 12/17/16 09:00; Admin Dose 5 MG; Start 11/27/16 at 21:00 Levetiracetam (Keppra) 500 mg BID PO Last administered on 12/17/16 08:58; Admin Dose 500 MG; Start 11/27/16 at 21:00 Potassium Chloride (Klor-Con 20) 40 meq BID PO Last administered on 12/17/16 08:58; Admin Dose 40 MEQ; Start 11/27/16 at 21:00 Enoxaparin Sodium (Lovenox) 40 mg DAILY SC Last administered on 12/08/16 09:59 ; Admin Dose 40 MG; Start 11/29/16 at 09:00; Status Future Hold Magnesium Oxide (Mag-Ox 400) 400 mg TID PO Last administered on 12/17/16 08:58 ; Admin Dose 400 MG; Start 11/30/16 at 21:00 Metoprolol Tartrate (Lopressor) 12.5 mg BID PO Last administered on 12/17/16 08:59; Admin Dose 12.5 MG; Start 12/06/16 at 21:00 Multivitamins Therapeutic (Theragran) 1 tab DAILY PO Last administered on 08:58; Admin Dose 1 TAB; Start 12/17/16 at 09:00 Zinc Sulfate (Zinc Sulfate) 220 mg DAILY PO Last administered on 12/17/16 08: 58; Admin Dose 220 MG; Start 12/16/16 at 12:30 Megestrol Acetate (Megace Susp) 400 mg BID PO Last administered on 12/17/16 08 :58; Admin Dose 400 MG; Start 12/16/16 at 12:30 AGUILA BURGOS NP Dec 17, 2016 12:57
--- NOTE | 2016-12-17 13:54 | PN ---
Date/Time of Note Date/Time of Note DATE: 12/17/16 TIME: 13:52 Assessment/Plan VTE Prophylaxis VTE Prophylaxis Intervention: SCD's VTE Contraindication Reason: bleeding Lines/Catheters IV Catheter Type (from Nrsg): PICC Line Central line still needed: Yes Urinary Cath still in place: Yes Reason Cath still needed: other (indicate) (d/c) Assessment/Plan Assessment/Plan 1. Status post lower gastrointestinal bleed. 2. Status post upper and lower endoscopy, showing severe ulcerative esophagitis and ulcerative colitis. 3. Anemia, requiring transfusion. 4. Human immunodeficiency virus positive. 5. Deconditioning. 6. Multiple wounds. 7. History of substance abuse. 8. History of depression. 9. Severe malnutrition + HIV associated anorexia 10. Status post urinary tract infection. 11. Seizure disorder. PLAN: 1. Continue the current treatment / rehab 2. Case mgt working on placement 3. D/c limon 4. Continue Megace / boost / MVI / Zinc. ?Gtube Subjective 24 Hr Interval Summary Free Text/Dictation Patient seen and examined. she states she continues to eat Exam/Review of Systems Vital Signs Vitals Vital Signs Date Time Temp Pulse Resp B/P Pulse Ox O2 Delivery O2 Flow Rate FiO2 12/17/16 08:10 97.8 104 18 113/65 98 12/14/16 20:00 Room Air Intake and Output 12/16/16 12/16/16 12/17/16 15:00 23:00 07:00 Intake Total 2040 ml 940 ml Output Total 1250 ml 800 ml Balance 790 ml 140 ml Exam HEENT: Pupils are equal and react to light / alert / frail NECK: Supple. No JVD noted, no cervical adenopathy noted, no carotid bruits heard. LUNGS: Fair breath sounds bilaterally. CARDIOVASCULAR: S1, S2 normal. ABDOMEN: Soft, nontender. No organomegaly or masses noted. EXTREMITIES: No clubbing, cyanosis, or edema. NEUROLOGICAL: Awake Results Result Diagram: 12/17/16 0440 12/17/16 0440 Results 24 hrs Laboratory Tests Test 12/17/16 04:40 White Blood Count 7.3 Red Blood Count 3.73 L Hemoglobin 10.8 L Hematocrit 34.8 L Mean Corpuscular Volume 93.3 Mean Corpuscular Hemoglobin 29.0 Mean Corpuscular Hemoglobin Concent 31.0 L Red Cell Distribution Width 18.5 H Platelet Count 259 Mean Platelet Volume 8.7 Neutrophils % 69.4 Lymphocytes % 18.0 Monocytes % 9.1 Eosinophils % 0.4 Basophils % 0.8 Nucleated Red Blood Cells % 0.0 Neutrophils # 5.0 Lymphocytes # 1.3 Monocytes # 0.7 Eosinophils # 0.0 Basophils # 0.1 Nucleated Red Blood Cells # 0.0 Sodium Level 141 Potassium Level 4.5 Chloride Level 108 Carbon Dioxide Level 27 Anion Gap 11 Blood Urea Nitrogen 24 H Creatinine 0.65 Glucose Level 95 Calcium Level 9.4 Phosphorus Level 3.3 Magnesium Level 1.8 Albumin 3.2 L Medications Medications Current Medications Ondansetron HCl (Zofran Inj) 4 mg Q6H PRN IV NAUSEA AND/OR VOMITING Last administered on 12/01/16 09:59; Admin Dose 4 MG; Start 11/11/16 at 16:00 Acetaminophen (Tylenol Tab) 650 mg Q6H PRN PO PAIN LEVEL 1-3 OR FEVER; Start at 16:00 Magnesium Hydroxide (Milk Of Mag) 30 ml DAILY PRN PO CONSTIPATION; Start at 16:00 Sodium Biphosphate/ Sodium Phosphate (Fleet Enema) 133 ml DAILY PRN [place] CONSTIPATION; Start 11/11/16 at 16:00 Hydralazine HCl (Apresoline) 10 mg Q6H PRN IV ELEVATED BLOOD PRESSURE; Start at 16:00 Nitroglycerin (Nitroglycerin (Sl Tab) 0.4 Mg) 1 tab Q5M PRN SL ANGINA Last administered on 11/11/16 23:25; Admin Dose 1 TAB; Start 11/11/16 at 16:00 Efavirenz (Sustiva) 600 mg DAILY PO Last administered on 12/17/16 08:58; Admin Dose 600 MG; Start 11/12/16 at 09:00 Emtricitabine/ Tenofovir (Truvada) 1 tab DAILY PO Last administered on 08:58; Admin Dose 1 TAB; Start 11/12/16 at 09:00 Sucralfate (Carafate) 1 gm QID PO Last administered on 12/17/16 08:58; Admin Dose 1 GM; Start 11/11/16 at 17:00 Collagenase (Santyl) 1 applic DAILY TOP Last administered on 12/17/16 11:17; Admin Dose 1 APPLIC; Start 11/12/16 at 13:00 Collagenase (Santyl) 1 applic PRN PRN TOP WOUND CARE; Start 11/12/16 at 12:00 Mesalamine (Delzicol Dr) 800 mg QID PO Last administered on 12/17/16 08:58; Admin Dose 800 MG; Start 11/12/16 at 21:00 Fluconazole (Diflucan) 100 mg DAILY PO Last administered on 12/17/16 08:58; Admin Dose 100 MG; Start 11/13/16 at 09:00 Lactobacillus Acidophilus (Florajen3 Capsule) 1 each BID PO Last administered on 12/17/16 08:58; Admin Dose 1 EACH; Start 11/13/16 at 21:00 Pantoprazole (Protonix Tab) 40 mg BID@18 PO Last administered on 12/17/16 05:48; Admin Dose 40 MG; Start 11/28/16 at 06:00 Metoclopramide HCl (Reglan) 5 mg TID PO Last administered on 12/17/16 09:00; Admin Dose 5 MG; Start 11/27/16 at 21:00 Levetiracetam (Keppra) 500 mg BID PO Last administered on 12/17/16 08:58; Admin Dose 500 MG; Start 11/27/16 at 21:00 Potassium Chloride (Klor-Con 20) 40 meq BID PO Last administered on 12/17/16 08:58; Admin Dose 40 MEQ; Start 11/27/16 at 21:00 Enoxaparin Sodium (Lovenox) 40 mg DAILY SC Last administered on 12/08/16 09:59 ; Admin Dose 40 MG; Start 11/29/16 at 09:00; Status Future Hold Magnesium Oxide (Mag-Ox 400) 400 mg TID PO Last administered on 12/17/16 08:58 ; Admin Dose 400 MG; Start 11/30/16 at 21:00 Metoprolol Tartrate (Lopressor) 12.5 mg BID PO Last administered on 12/17/16 08:59; Admin Dose 12.5 MG; Start 12/06/16 at 21:00 Multivitamins Therapeutic (Theragran) 1 tab DAILY PO Last administered on 08:58; Admin Dose 1 TAB; Start 12/17/16 at 09:00 Zinc Sulfate (Zinc Sulfate) 220 mg DAILY PO Last administered on 12/17/16 08: 58; Admin Dose 220 MG; Start 12/16/16 at 12:30 Megestrol Acetate (Megace Susp) 400 mg BID PO Last administered on 12/17/16 08 :58; Admin Dose 400 MG; Start 12/16/16 at 12:30 FERNANDO HOOD Dec 17, 2016 13:54
--- NOTE | 2016-12-17 13:56 | PN ---
Date/Time of Note Date/Time of Note DATE: 12/17/16 TIME: 13:44 Assessment/Plan Lines/Catheters IV Catheter Type (from Nrs): PICC Line Limon in Place (from Nrs): Yes Assessment/Plan Chief Complaint/Hosp Course 1. Right lower quadrant serous fluid leak through a pinpoint had possible previous site of femoral access attempts. Differential diagnosis includes peritoneal fluid versus urine versus other. Resolved. -No leak noted from right groin; skin healed; dry and intact 2. Recent rectal bleeding with hemorrhagic shock & Anemia s/p transfusions: Resolved; no rectal bleed H/H remains stable -Monitor closely -Contine PPIs and Carafate 3. Esophagitis: EGD 11/12/2016: Severe ulcerated esophagitis/Inocencia esophagitis; Colonoscopy 11/12/2016: Merna ulcerative colitis. Moderate sized internal hemorrhoids - Continue antimicrobials per ID - Continue PPI 4. Pneumonia: CXR 11/25: Left lower greater than right lower lobe pneumonia with small bilateral pleural effusions; Patient afebrile with normalized WBC; patient on room air - Monitor for recurrence - Encourage mobilization 5. HIV positive: on MAYERS -Continue medications 6. UTI with E. coli and Proteus; improved; no frequency or urgency; limon - Limon needed? DC limon if not needed -Antibiotics 5. Multiple chronic wounds: No debridement needed at this time -Local care with offloading and frequent turning -Specialty bed -Nutrition optimization; increase protein intake -Vitamin C 6. Hypoalbuminemia: likely 2/2 poor oral intake -Optimize nutrition -Encourage favorite foods 7. History of polysubstance abuse including tobacco -Encourage cessation 7. Psychiatric disorder with depression -Start antidepressants? -Medical and psychiatric optimization 8. Severe protein calorie malnutrition -Encourage nutritional optimization -Encourage favorite foods Patient seen and examined in collaboration with Dr. Pino Gao Problems: Subjective 24 Hr Interval Summary Constitutional: improved, No chills, No cough, No diaphoresis, No disoriented, No febrile, No poor po ( PO INTAKE IMPROVING), No shortness of breath Pain Control: well controlled Exam/Review of Systems Vital Signs Vitals Vital Signs Date Time Temp Pulse Resp B/P Pulse Ox O2 Delivery O2 Flow Rate FiO2 12/17/16 08:10 97.8 104 18 113/65 98 12/14/16 20:00 Room Air Intake and Output 12/16/16 12/16/16 12/17/16 15:00 23:00 07:00 Intake Total 2040 ml 940 ml Output Total 1250 ml 800 ml Balance 790 ml 140 ml Exam Free Text/Dictation Constitutional: alert, oriented, No well developed (cachexia) Psych: nl mood/affect, no complaints Head: atraumatic, normocephalic Eyes: nl lids, nl sclera ENMT: mucosa pink and moist, nl external ears & nose Neck: non-tender, supple Respiratory: clear to auscultation Cardiovascular: nl pulses, regular rate and rhythm Gastrointestinal: soft, No distended, non-tender Genitourinary - Female: nl external genitalia Musculoskeletal: nl extremities to inspection Extremities: normal pulses Neurological: nl mental status, nl speech, nl strength Skin: other (multiple wounds), No rash or lesions Results Result Diagram: 12/17/160 12/17/16 0440 GALINA CISSE NP Dec 17, 2016 13:54
--- NOTE | 2016-12-17 17:15 | CONS ---
Date/Time of Note Date/Time of Note DATE: 12/17/16 TIME: 17:13 Assessment/Plan Assessment/Plan Additional Assessment/Plan 1. Severe hyperchloremia with a chloride of 117on admission, now resolved 2. Acute encephalopathy. 3. Status post hemorrhagic shock. 4. Human immunodeficiency virus positive with CD4 count of 157. 5. Positive colitis. 6. Multiple decubitus ulcers. 7. Status post urinary tract infection and sepsis on admission. 8. Depression. 9. Hypomagnesemia- s/p replacement PLAN: on PO KCL replacement 40mEQ BID cr and electrolytes stable today will follow up Consultation Date/Type/Reason Admit Date/Time November 11, 2016 at 15:19 Type of Consultation: NEPHROLOGY Referring Provider: JESUS RUIZ Exam/Review of Systems Vital Signs Vitals Vital Signs Date Time Temp Pulse Resp B/P Pulse Ox O2 Delivery O2 Flow Rate FiO2 12/17/16 08:10 97.8 104 18 113/65 98 12/14/16 20:00 Room Air Intake and Output 12/16/16 12/16/16 12/17/16 15:00 23:00 07:00 Intake Total 2040 ml 940 ml Output Total 1250 ml 800 ml Balance 790 ml 140 ml Results Result Diagram: 12/17/16 0440 12/17/16 0440 Results 24 hrs Laboratory Tests Test 12/17/16 04:40 White Blood Count 7.3 Red Blood Count 3.73 L Hemoglobin 10.8 L Hematocrit 34.8 L Mean Corpuscular Volume 93.3 Mean Corpuscular Hemoglobin 29.0 Mean Corpuscular Hemoglobin Concent 31.0 L Red Cell Distribution Width 18.5 H Platelet Count 259 Mean Platelet Volume 8.7 Neutrophils % 69.4 Lymphocytes % 18.0 Monocytes % 9.1 Eosinophils % 0.4 Basophils % 0.8 Nucleated Red Blood Cells % 0.0 Neutrophils # 5.0 Lymphocytes # 1.3 Monocytes # 0.7 Eosinophils # 0.0 Basophils # 0.1 Nucleated Red Blood Cells # 0.0 Sodium Level 141 Potassium Level 4.5 Chloride Level 108 Carbon Dioxide Level 27 Anion Gap 11 Blood Urea Nitrogen 24 H Creatinine 0.65 Glucose Level 95 Calcium Level 9.4 Phosphorus Level 3.3 Magnesium Level 1.8 Albumin 3.2 L Medications Medications Current Medications Ondansetron HCl (Zofran Inj) 4 mg Q6H PRN IV NAUSEA AND/OR VOMITING Last administered on 12/01/16 09:59; Admin Dose 4 MG; Start 11/11/16 at 16:00 Acetaminophen (Tylenol Tab) 650 mg Q6H PRN PO PAIN LEVEL 1-3 OR FEVER; Start at 16:00 Magnesium Hydroxide (Milk Of Mag) 30 ml DAILY PRN PO CONSTIPATION; Start at 16:00 Sodium Biphosphate/ Sodium Phosphate (Fleet Enema) 133 ml DAILY PRN [place] CONSTIPATION; Start 11/11/16 at 16:00 Hydralazine HCl (Apresoline) 10 mg Q6H PRN IV ELEVATED BLOOD PRESSURE; Start at 16:00 Nitroglycerin (Nitroglycerin (Sl Tab) 0.4 Mg) 1 tab Q5M PRN SL ANGINA Last administered on 11/11/16 23:25; Admin Dose 1 TAB; Start 11/11/16 at 16:00 Efavirenz (Sustiva) 600 mg DAILY PO Last administered on 12/17/16 08:58; Admin Dose 600 MG; Start 11/12/16 at 09:00 Emtricitabine/ Tenofovir (Truvada) 1 tab DAILY PO Last administered on 08:58; Admin Dose 1 TAB; Start 11/12/16 at 09:00 Sucralfate (Carafate) 1 gm QID PO Last administered on 12/17/16 14:00; Admin Dose 1 GM; Start 11/11/16 at 17:00 Collagenase (Santyl) 1 applic DAILY TOP Last administered on 12/17/16 11:17; Admin Dose 1 APPLIC; Start 11/12/16 at 13:00 Collagenase (Santyl) 1 applic PRN PRN TOP WOUND CARE; Start 11/12/16 at 12:00 Mesalamine (Delzicol Dr) 800 mg QID PO Last administered on 12/17/16 14:00; Admin Dose 800 MG; Start 11/12/16 at 21:00 Fluconazole (Diflucan) 100 mg DAILY PO Last administered on 12/17/16 08:58; Admin Dose 100 MG; Start 11/13/16 at 09:00 Lactobacillus Acidophilus (Florajen3 Capsule) 1 each BID PO Last administered on 12/17/16 08:58; Admin Dose 1 EACH; Start 11/13/16 at 21:00 Pantoprazole (Protonix Tab) 40 mg BID@ PO Last administered on 12/17/16 05:48; Admin Dose 40 MG; Start 11/28/16 at 06:00 Metoclopramide HCl (Reglan) 5 mg TID PO Last administered on 12/17/16 14:00; Admin Dose 5 MG; Start 11/27/16 at 21:00 Levetiracetam (Keppra) 500 mg BID PO Last administered on 12/17/16 08:58; Admin Dose 500 MG; Start 11/27/16 at 21:00 Potassium Chloride (Klor-Con 20) 40 meq BID PO Last administered on 12/17/16 08:58; Admin Dose 40 MEQ; Start 11/27/16 at 21:00 Enoxaparin Sodium (Lovenox) 40 mg DAILY SC Last administered on 12/08/16 09:59 ; Admin Dose 40 MG; Start 11/29/16 at 09:00; Status Future Hold Magnesium Oxide (Mag-Ox 400) 400 mg TID PO Last administered on 12/17/16 14:00 ; Admin Dose 400 MG; Start 11/30/16 at 21:00 Metoprolol Tartrate (Lopressor) 12.5 mg BID PO Last administered on 12/17/16 08:59; Admin Dose 12.5 MG; Start 12/06/16 at 21:00 Multivitamins Therapeutic (Theragran) 1 tab DAILY PO Last administered on 08:58; Admin Dose 1 TAB; Start 12/17/16 at 09:00 Zinc Sulfate (Zinc Sulfate) 220 mg DAILY PO Last administered on 12/17/16 08: 58; Admin Dose 220 MG; Start 12/16/16 at 12:30 Megestrol Acetate (Megace Susp) 400 mg BID PO Last administered on 12/17/16 08 :58; Admin Dose 400 MG; Start 12/16/16 at 12:30 ASHISH MENDOZA MD Dec 17, 2016 17:14
[2016-12-17 22:27] VITALS: BP 116/77; RESP 18
[2016-12-18] MEDS: PANTOPRAZOLE (EC) 40 MG TAB PO SCH ×2 (05:12→17:37)
[2016-12-18 06:03] LABS: ADD SCAN DIFF NO
[2016-12-18 06:09] LABS: BASOPHIL # 0.1 10^3/ul (0.0-0.1); EOSINOPHILS # 0.1 10^3/ul (0.0-0.5); EOSINOPHILS % 0.6 % (0.0-7.0); HEMATOCRIT 32.2 % (37.0-47.0); HEMOGLOBIN 10.2 g/dl (12.0-16.0); LYMPHOCYTES # 1.9 10^3/ul (0.8-2.9); LYMPHOCYTES % 23.4 % (15.0-51.0); MEAN CORPUSCULAR HEMOGLOBIN 29.4 pg (29.0-33.0); MEAN CORPUSCULAR HGB CONC 31.7 g/dl (32.0-37.0); MEAN CORPUSCULAR VOLUME 92.8 fl (82.0-101.0); MEAN PLATELET VOLUME 8.7 fl (7.4-10.4); MONOCYTE # 0.9 10^3/ul (0.3-0.9); MONOCYTES % 10.7 % (0.0-11.0); NEUTROPHIL # 4.9 10^3/ul (1.6-7.5); NEUTROPHILS % 60.6 % (39.0-77.0); PLATELET COUNT 255 10^3/UL (140-415); RED BLOOD COUNT 3.47 10^6/ul (4.20-5.40); RED CELL DISTRIBUTION WIDTH 18.4 % (11.5-14.5); WHITE BLOOD COUNT 8.1 10^3/ul (4.8-10.8)
[2016-12-18 06:36] LABS: CALCIUM 8.9 mg/dl (8.4-10.2); CREATININE 0.49 mg/dl (0.44-1.00); PHOSPHORUS 3.1 mg/dl (2.5-4.9); POTASSIUM 4.3 mmol/L (3.5-5.1)
[2016-12-18 08:01] VITALS: BP 115/75; RESP 18
[2016-12-18] MEDS: COLLAGENASE 30 GM TUBE TOP SCH ×2 (09:00→12:38)
[2016-12-18] MEDS: FLUCONAZOLE 100 MG TAB PO SCH (09:27)
[2016-12-18] MEDS: EMTRICITABINE/TENOFOVIR TAB PO SCH (09:27)
[2016-12-18] MEDS: MESALAMINE (EC) 400 MG CAP PO SCH ×4 (09:27→20:26)
[2016-12-18] MEDS: ZINC SULFATE 220 MG CAP PO SCH (09:28)
[2016-12-18] MEDS: POTASSIUM CHLORIDE (SR) 20 MEQ TAB PO SCH (09:28)
[2016-12-18] MEDS: MAGNESIUM OXIDE 400 MG TAB PO SCH ×3 (09:28→20:26)
[2016-12-18] MEDS: MULTIVITAMINS THERAPEUTIC TAB PO SCH (09:28)
[2016-12-18] MEDS: METOPROLOL 25 MG TAB PO SCH ×2 (09:28→20:33)
[2016-12-18] MEDS: MEGESTROL (40 MG/ML) 10ML CUP PO SCH ×2 (09:28→20:26)
[2016-12-18] MEDS: L ACIDOPHIL/B LACTIS/B LONGUM CAPSULE PO SCH ×2 (09:28→20:26)
[2016-12-18] MEDS: LEVETIRACETAM 500 MG TAB PO SCH ×2 (09:28→20:26)
[2016-12-18] MEDS: EFAVIRENZ 600 MG TAB PO SCH (09:28)
[2016-12-18] MEDS: METOCLOPRAMIDE 5 MG TAB PO SCH ×3 (09:28→20:26)
[2016-12-18] MEDS: SUCRALFATE 1 GM TAB PO SCH ×4 (09:29→20:26)
--- NOTE | 2016-12-18 11:14 | PN ---
Date/Time of Note Date/Time of Note DATE: 12/18/16 TIME: 11:13 Assessment/Plan VTE Prophylaxis VTE Prophylaxis Intervention: SCD's Lines/Catheters [facility] Type [facility] PICC Line Central line still needed: Yes Urinary Cath still in place: No Assessment/Plan Assessment/Plan 1. Status post lower gastrointestinal bleed. 2. Status post upper and lower endoscopy, showing severe ulcerative esophagitis and ulcerative colitis. 3. Anemia, requiring transfusion. 4. Human immunodeficiency virus positive. 5. Deconditioning. 6. Multiple wounds. 7. History of substance abuse. 8. History of depression. 9. Severe malnutrition + HIV associated anorexia 10. Status post urinary tract infection. 11. Seizure disorder. PLAN: 1. Continue the current treatment / rehab 2. Case mgt working on placement 3. D/c limon 4. Continue Megace / boost / MVI / Zinc. ?Gtube I examined and spoke with patient in detail, she is fully able to make her own decisions. She states her "friend" has never made her do anything she didn't want to do. Subjective 24 Hr Interval Summary Free Text/Dictation No new issues Exam/Review of Systems Vital Signs Vitals Vital Signs Date Time Temp Pulse Resp B/P Pulse Ox O2 Delivery O2 Flow Rate FiO2 12/18/16 08:01 98.3 110 18 115/75 100 12/14/16 20:00 Room Air Intake and Output 12/17/16 12/17/16 12/18/16 15:00 23:00 07:00 Intake Total 1110 ml 360 ml Output Total 1000 ml Balance -1000 ml 1110 ml 360 ml Exam HEENT: Pupils are equal and react to light / alert / frail NECK: Supple. No JVD noted, no cervical adenopathy noted, no carotid bruits heard. LUNGS: Fair breath sounds bilaterally. CARDIOVASCULAR: S1, S2 normal. ABDOMEN: Soft, nontender. No organomegaly or masses noted. EXTREMITIES: No clubbing, cyanosis, or edema. NEUROLOGICAL: Awake Psych: other (affect is usually blank, but she repeatedly denies suicidal or homicidal ideation) Neurological: other (alert and oriented to time, place and person) Results Result Diagram: 12/18/16 0530 12/18/16 0530 Results 24 hrs Laboratory Tests Test 12/18/16 05:30 White Blood Count 8.1 Red Blood Count 3.47 L Hemoglobin 10.2 L Hematocrit 32.2 L Mean Corpuscular Volume 92.8 Mean Corpuscular Hemoglobin 29.4 Mean Corpuscular Hemoglobin Concent 31.7 L Red Cell Distribution Width 18.4 H Platelet Count 255 Mean Platelet Volume 8.7 Neutrophils % 60.6 Lymphocytes % 23.4 Monocytes % 10.7 Eosinophils % 0.6 Basophils % 1.0 Nucleated Red Blood Cells % 0.0 Neutrophils # 4.9 Lymphocytes # 1.9 Monocytes # 0.9 Eosinophils # 0.1 Basophils # 0.1 Nucleated Red Blood Cells # 0.0 Sodium Level 139 Potassium Level 4.3 Chloride Level 107 Carbon Dioxide Level 25 Anion Gap 11 Blood Urea Nitrogen 28 H Creatinine 0.49 Glucose Level 95 Calcium Level 8.9 Phosphorus Level 3.1 Albumin 3.0 L Medications Medications Current Medications Ondansetron HCl (Zofran Inj) 4 mg Q6H PRN IV NAUSEA AND/OR VOMITING Last administered on 12/01/16 09:59; Admin Dose 4 MG; Start 11/11/16 at 16:00 Acetaminophen (Tylenol Tab) 650 mg Q6H PRN PO PAIN LEVEL 1-3 OR FEVER; Start at 16:00 Magnesium Hydroxide (Milk Of Mag) 30 ml DAILY PRN PO CONSTIPATION; Start at 16:00 Sodium Biphosphate/ Sodium Phosphate (Fleet Enema) 133 ml DAILY PRN [place] CONSTIPATION; Start 11/11/16 at 16:00 Hydralazine HCl (Apresoline) 10 mg Q6H PRN IV ELEVATED BLOOD PRESSURE; Start at 16:00 Nitroglycerin (Nitroglycerin (Sl Tab) 0.4 Mg) 1 tab Q5M PRN SL ANGINA Last administered on 11/11/16 23:25; Admin Dose 1 TAB; Start 11/11/16 at 16:00 Efavirenz (Sustiva) 600 mg DAILY PO Last administered on 12/18/16 09:28; Admin Dose 600 MG; Start 11/12/16 at 09:00 Emtricitabine/ Tenofovir (Truvada) 1 tab DAILY PO Last administered on 09:27; Admin Dose 1 TAB; Start 11/12/16 at 09:00 Sucralfate (Carafate) 1 gm QID PO Last administered on 12/18/16 09:29; Admin Dose 1 GM; Start 11/11/16 at 17:00 Collagenase (Santyl) 1 applic DAILY TOP Last administered on 12/17/16 11:17; Admin Dose 1 APPLIC; Start 11/12/16 at 13:00 Collagenase (Santyl) 1 applic PRN PRN TOP WOUND CARE; Start 11/12/16 at 12:00 Mesalamine (Delzicol Dr) 800 mg QID PO Last administered on 12/18/16 09:27; Admin Dose 800 MG; Start 11/12/16 at 21:00 Fluconazole (Diflucan) 100 mg DAILY PO Last administered on 12/18/16 09:27; Admin Dose 100 MG; Start 11/13/16 at 09:00 Lactobacillus Acidophilus (Florajen3 Capsule) 1 each BID PO Last administered on 12/18/16 09:28; Admin Dose 1 EACH; Start 11/13/16 at 21:00 Pantoprazole (Protonix Tab) 40 mg BID@,18 PO Last administered on 12/18/16 05:12; Admin Dose 40 MG; Start 11/28/16 at 06:00 Metoclopramide HCl (Reglan) 5 mg TID PO Last administered on 12/18/16 09:28; Admin Dose 5 MG; Start 11/27/16 at 21:00 Levetiracetam (Keppra) 500 mg BID PO Last administered on 12/18/16 09:28; Admin Dose 500 MG; Start 11/27/16 at 21:00 Potassium Chloride (Klor-Con 20) 40 meq BID PO Last administered on 12/18/16 09:28; Admin Dose 40 MEQ; Start 11/27/16 at 21:00 Enoxaparin Sodium (Lovenox) 40 mg DAILY SC Last administered on 12/08/16 09:59 ; Admin Dose 40 MG; Start 11/29/16 at 09:00; Status Future Hold Magnesium Oxide (Mag-Ox 400) 400 mg TID PO Last administered on 12/18/16 09:28 ; Admin Dose 400 MG; Start 11/30/16 at 21:00 Metoprolol Tartrate (Lopressor) 12.5 mg BID PO Last administered on 12/18/16 09:28; Admin Dose 12.5 MG; Start 12/06/16 at 21:00 Multivitamins Therapeutic (Theragran) 1 tab DAILY PO Last administered on 09:28; Admin Dose 1 TAB; Start 12/17/16 at 09:00 Zinc Sulfate (Zinc Sulfate) 220 mg DAILY PO Last administered on 12/18/16 09: 28; Admin Dose 220 MG; Start 12/16/16 at 12:30 Megestrol Acetate (Megace Susp) 400 mg BID PO Last administered on 12/18/16 09 :28; Admin Dose 400 MG; Start 12/16/16 at 12:30 FERNANDO HOOD Dec 18, 2016 11:14
--- NOTE | 2016-12-18 12:11 | CONS ---
Date/Time of Note Date/Time of Note DATE: 12/18/16 TIME: 12:10 Assessment/Plan Assessment/Plan Additional Assessment/Plan 1. Severe hyperchloremia with a chloride of 117on admission, now resolved 2. Acute encephalopathy. 3. Status post hemorrhagic shock. 4. Human immunodeficiency virus positive with CD4 count of 157. 5. Positive colitis. 6. Multiple decubitus ulcers. 7. Status post urinary tract infection and sepsis on admission. 8. Depression. 9. Hypomagnesemia- s/p replacement PLAN: d/c KCL cr and electrolytes stable today will follow up Consultation Date/Type/Reason Admit Date/Time November 11, 2016 at 15:19 Type of Consultation: NEPHROLOGY Referring Provider: JESUS RUIZ 24 HR Interval Summary Free Text/Dictation electrolytes and Cr stable, k normal Exam/Review of Systems Vital Signs Vitals Vital Signs Date Time Temp Pulse Resp B/P Pulse Ox O2 Delivery O2 Flow Rate FiO2 12/18/16 08:01 98.3 110 18 115/75 100 12/14/16 20:00 Room Air Intake and Output 12/17/16 12/17/16 12/18/16 15:00 23:00 07:00 Intake Total 1110 ml 360 ml Output Total 1000 ml Balance -1000 ml 1110 ml 360 ml Exam GENERAL: This is a chronically ill-appearing, cachectic, wasted, middle-aged white woman who is lying comfortably in bed. HEENT: Head atraumatic, normocephalic. Sclerae anicteric. Buccal mucosa dry. NECK: Supple. CHEST: Rise symmetrical. Breath sounds diminished. HEART: S1, S2. ABDOMEN: Soft. Bowel tones present. EXTREMITIES: Without cyanosis. Bilateral edema. Results Result Diagram: 12/18/16 0530 12/18/16 0530 Results 24 hrs Laboratory Tests Test 12/18/16 05:30 White Blood Count 8.1 Red Blood Count 3.47 L Hemoglobin 10.2 L Hematocrit 32.2 L Mean Corpuscular Volume 92.8 Mean Corpuscular Hemoglobin 29.4 Mean Corpuscular Hemoglobin Concent 31.7 L Red Cell Distribution Width 18.4 H Platelet Count 255 Mean Platelet Volume 8.7 Neutrophils % 60.6 Lymphocytes % 23.4 Monocytes % 10.7 Eosinophils % 0.6 Basophils % 1.0 Nucleated Red Blood Cells % 0.0 Neutrophils # 4.9 Lymphocytes # 1.9 Monocytes # 0.9 Eosinophils # 0.1 Basophils # 0.1 Nucleated Red Blood Cells # 0.0 Sodium Level 139 Potassium Level 4.3 Chloride Level 107 Carbon Dioxide Level 25 Anion Gap 11 Blood Urea Nitrogen 28 H Creatinine 0.49 Glucose Level 95 Calcium Level 8.9 Phosphorus Level 3.1 Albumin 3.0 L Medications Medications Current Medications Ondansetron HCl (Zofran Inj) 4 mg Q6H PRN IV NAUSEA AND/OR VOMITING Last administered on 12/01/16 09:59; Admin Dose 4 MG; Start 11/11/16 at 16:00 Acetaminophen (Tylenol Tab) 650 mg Q6H PRN PO PAIN LEVEL 1-3 OR FEVER; Start at 16:00 Magnesium Hydroxide (Milk Of Mag) 30 ml DAILY PRN PO CONSTIPATION; Start at 16:00 Sodium Biphosphate/ Sodium Phosphate (Fleet Enema) 133 ml DAILY PRN [place] CONSTIPATION; Start 11/11/16 at 16:00 Hydralazine HCl (Apresoline) 10 mg Q6H PRN IV ELEVATED BLOOD PRESSURE; Start at 16:00 Nitroglycerin (Nitroglycerin (Sl Tab) 0.4 Mg) 1 tab Q5M PRN SL ANGINA Last administered on 11/11/16 23:25; Admin Dose 1 TAB; Start 11/11/16 at 16:00 Efavirenz (Sustiva) 600 mg DAILY PO Last administered on 12/18/16 09:28; Admin Dose 600 MG; Start 11/12/16 at 09:00 Emtricitabine/ Tenofovir (Truvada) 1 tab DAILY PO Last administered on 09:27; Admin Dose 1 TAB; Start 11/12/16 at 09:00 Sucralfate (Carafate) 1 gm QID PO Last administered on 12/18/16 09:29; Admin Dose 1 GM; Start 11/11/16 at 17:00 Collagenase (Santyl) 1 applic DAILY TOP Last administered on 12/17/16 11:17; Admin Dose 1 APPLIC; Start 11/12/16 at 13:00 Collagenase (Santyl) 1 applic PRN PRN TOP WOUND CARE; Start 11/12/16 at 12:00 Mesalamine (Delzicol Dr) 800 mg QID PO Last administered on 12/18/16 09:27; Admin Dose 800 MG; Start 11/12/16 at 21:00 Fluconazole (Diflucan) 100 mg DAILY PO Last administered on 12/18/16 09:27; Admin Dose 100 MG; Start 11/13/16 at 09:00 Lactobacillus Acidophilus (Florajen3 Capsule) 1 each BID PO Last administered on 12/18/16 09:28; Admin Dose 1 EACH; Start 11/13/16 at 21:00 Pantoprazole (Protonix Tab) 40 mg BID@18 PO Last administered on 12/18/16 05:12; Admin Dose 40 MG; Start 11/28/16 at 06:00 Metoclopramide HCl (Reglan) 5 mg TID PO Last administered on 12/18/16 09:28; Admin Dose 5 MG; Start 11/27/16 at 21:00 Levetiracetam (Keppra) 500 mg BID PO Last administered on 12/18/16 09:28; Admin Dose 500 MG; Start 11/27/16 at 21:00 Potassium Chloride (Klor-Con 20) 40 meq BID PO Last administered on 12/18/16 09:28; Admin Dose 40 MEQ; Start 11/27/16 at 21:00 Enoxaparin Sodium (Lovenox) 40 mg DAILY SC Last administered on 12/08/16 09:59 ; Admin Dose 40 MG; Start 11/29/16 at 09:00; Status Future Hold Magnesium Oxide (Mag-Ox 400) 400 mg TID PO Last administered on 12/18/16 09:28 ; Admin Dose 400 MG; Start 11/30/16 at 21:00 Metoprolol Tartrate (Lopressor) 12.5 mg BID PO Last administered on 12/18/16 09:28; Admin Dose 12.5 MG; Start 12/06/16 at 21:00 Multivitamins Therapeutic (Theragran) 1 tab DAILY PO Last administered on 09:28; Admin Dose 1 TAB; Start 12/17/16 at 09:00 Zinc Sulfate (Zinc Sulfate) 220 mg DAILY PO Last administered on 12/18/16 09: 28; Admin Dose 220 MG; Start 12/16/16 at 12:30 Megestrol Acetate (Megace Susp) 400 mg BID PO Last administered on 12/18/16t 09 :28; Admin Dose 400 MG; Start 12/16/16 at 12:30 ASHISH MENDOZA MD Dec 18, 2016 12:11
--- NOTE | 2016-12-18 13:46 | CONS ---
Date/Time of Note Date/Time of Note DATE: 12/18/16 TIME: 13:45 Assessment/Plan Assessment/Plan Chief Complaint/Hosp Course SUBJECTIVE: No acute changes per report INDWELLINGS: PICC line. ANTIMICROBIALS: 2. Fluconazole. 3. Truvada. 4. Sustiva. PHYSICAL EXAMINATION: GENERAL: Cachectic, well-developed, middle-aged white woman who is alert, in no distress. HEENT: Head atraumatic, normocephalic. Sclerae anicteric. Buccal mucosa dry. NECK: Supple. CHEST: Rise symmetrical. Breath sounds diminished to bases. HEART: S1, S2. ABDOMEN: Soft, bowel tones present. EXTREMITIES: Without cyanosis. ASSESSMENT: 1. Status post septic shock secondary to urinary tract infection and pneumonia. 2. Status post colitis. 3. Human immunodeficiency virus disease with CD4 count 241 on 11/25/2016. 4. Multiple chronic wounds. 5. Cachexia with severe protein calorie malnutrition. 6. History of Inocencia esophagitis. 7. Status post seizure with postictal encephalopathy. PLAN: The patient remains stable. Continue present care, MAYERS, monitor postvoid residuals and straight cath as needed DW staff Problems: Consultation Date/Type/Reason Admit Date/Time November 11, 2016 at 15:19 Initial Consult Date 11/11/16 Type of Consultation: Infectious disease Referring Provider: JESUS RUIZ Exam/Review of Systems Vital Signs Vitals Vital Signs Date Time Temp Pulse Resp B/P Pulse Ox O2 Delivery O2 Flow Rate FiO2 12/18/16 08:01 98.3 110 18 115/75 100 12/14/16 20:00 Room Air Intake and Output 12/17/16 12/17/16 12/18/16 15:00 23:00 07:00 Intake Total 1110 ml 360 ml Output Total 1000 ml Balance -1000 ml 1110 ml 360 ml Results Result Diagram: 12/18/16 0530 12/18/16 0530 Results 24 hrs Laboratory Tests Test 12/18/16 05:30 White Blood Count 8.1 Red Blood Count 3.47 L Hemoglobin 10.2 L Hematocrit 32.2 L Mean Corpuscular Volume 92.8 Mean Corpuscular Hemoglobin 29.4 Mean Corpuscular Hemoglobin Concent 31.7 L Red Cell Distribution Width 18.4 H Platelet Count 255 Mean Platelet Volume 8.7 Neutrophils % 60.6 Lymphocytes % 23.4 Monocytes % 10.7 Eosinophils % 0.6 Basophils % 1.0 Nucleated Red Blood Cells % 0.0 Neutrophils # 4.9 Lymphocytes # 1.9 Monocytes # 0.9 Eosinophils # 0.1 Basophils # 0.1 Nucleated Red Blood Cells # 0.0 Sodium Level 139 Potassium Level 4.3 Chloride Level 107 Carbon Dioxide Level 25 Anion Gap 11 Blood Urea Nitrogen 28 H Creatinine 0.49 Glucose Level 95 Calcium Level 8.9 Phosphorus Level 3.1 Albumin 3.0 L Medications Medications Current Medications Ondansetron HCl (Zofran Inj) 4 mg Q6H PRN IV NAUSEA AND/OR VOMITING Last administered on 12/01/16 09:59; Admin Dose 4 MG; Start 11/11/16 at 16:00 Acetaminophen (Tylenol Tab) 650 mg Q6H PRN PO PAIN LEVEL 1-3 OR FEVER; Start at 16:00 Magnesium Hydroxide (Milk Of Mag) 30 ml DAILY PRN PO CONSTIPATION; Start at 16:00 Sodium Biphosphate/ Sodium Phosphate (Fleet Enema) 133 ml DAILY PRN [place] CONSTIPATION; Start 11/11/16 at 16:00 Hydralazine HCl (Apresoline) 10 mg Q6H PRN IV ELEVATED BLOOD PRESSURE; Start at 16:00 Nitroglycerin (Nitroglycerin (Sl Tab) 0.4 Mg) 1 tab Q5M PRN SL ANGINA Last administered on 11/11/16 23:25; Admin Dose 1 TAB; Start 11/11/16 at 16:00 Efavirenz (Sustiva) 600 mg DAILY PO Last administered on 12/18/16 09:28; Admin Dose 600 MG; Start 11/12/16 at 09:00 Emtricitabine/ Tenofovir (Truvada) 1 tab DAILY PO Last administered on 09:27; Admin Dose 1 TAB; Start 11/12/16 at 09:00 Sucralfate (Carafate) 1 gm QID PO Last administered on 12/18/16 12:51; Admin Dose 1 GM; Start 11/11/16 at 17:00 Collagenase (Santyl) 1 applic DAILY TOP Last administered on 12/18/16 12:38; Admin Dose 1 APPLIC; Start 11/12/16 at 13:00 Collagenase (Santyl) 1 applic PRN PRN TOP WOUND CARE; Start 11/12/16 at 12:00 Mesalamine (Delzicol Dr) 800 mg QID PO Last administered on 12/18/16 12:51; Admin Dose 800 MG; Start 11/12/16 at 21:00 Fluconazole (Diflucan) 100 mg DAILY PO Last administered on 12/18/16 09:27; Admin Dose 100 MG; Start 11/13/16 at 09:00 Lactobacillus Acidophilus (Florajen3 Capsule) 1 each BID PO Last administered on 12/18/16 09:28; Admin Dose 1 EACH; Start 11/13/16 at 21:00 Pantoprazole (Protonix Tab) 40 mg BID@ PO Last administered on 12/18/16 05:12; Admin Dose 40 MG; Start 11/28/16 at 06:00 Metoclopramide HCl (Reglan) 5 mg TID PO Last administered on 12/18/16 12:51; Admin Dose 5 MG; Start 11/27/16 at 21:00 Levetiracetam (Keppra) 500 mg BID PO Last administered on 12/18/16 09:28; Admin Dose 500 MG; Start 11/27/16 at 21:00 Enoxaparin Sodium (Lovenox) 40 mg DAILY SC Last administered on 12/08/16 09:59 ; Admin Dose 40 MG; Start 11/29/16 at 09:00; Status Future Hold Magnesium Oxide (Mag-Ox 400) 400 mg TID PO Last administered on 12/18/16 12:51 ; Admin Dose 400 MG; Start 11/30/16 at 21:00 Metoprolol Tartrate (Lopressor) 12.5 mg BID PO Last administered on 12/18/16 09:28; Admin Dose 12.5 MG; Start 12/06/16 at 21:00 Multivitamins Therapeutic (Theragran) 1 tab DAILY PO Last administered on 09:28; Admin Dose 1 TAB; Start 12/17/16 at 09:00 Zinc Sulfate (Zinc Sulfate) 220 mg DAILY PO Last administered on 12/18/16 09: 28; Admin Dose 220 MG; Start 12/16/16 at 12:30 Megestrol Acetate (Megace Susp) 400 mg BID PO Last administered on 12/18/16 09 :28; Admin Dose 400 MG; Start 12/16/16 at 12:30 AGUILA BURGOS NP Dec 18, 2016 13:46
--- NOTE | 2016-12-18 21:02 | PN ---
Date/Time of Note Date/Time of Note DATE: 12/18/16 TIME: 21:01 Assessment/Plan Lines/Catheters IV Catheter Type (from [facility]): PICC Line Lim[place] in Place (from [facility]): No Assessment/Plan Chief Complaint/Hosp Course 1. Right lower quadrant serous fluid leak through a pinpoint had possible previous site of femoral access attempts. Differential diagnosis includes peritoneal fluid versus urine versus other. Resolved. -No leak noted from right groin; skin healed; dry and intact 2. Recent rectal bleeding with hemorrhagic shock & Anemia s/p transfusions: Resolved; no rectal bleed H/H remains stable -Monitor closely -Contine PPIs and Carafate 3. Esophagitis: EGD 11/12/2016: Severe ulcerated esophagitis/Inocencia esophagitis; Colonoscopy 11/12/2016: [place] ulcerative colitis. Moderate sized internal hemorrhoids - Continue antimicrobials per ID - Continue PPI 4. Pneumonia: CXR 11/25: Left lower greater than right lower lobe pneumonia with small bilateral pleural effusions; Patient afebrile with normalized WBC; patient on room air - Monitor for recurrence - Encourage mobilization 5. HIV positive: on MAYERS -Continue medications 6. UTI with E. coli and Proteus; improved; no frequency or urgency; limon - Limon needed? DC limon if not needed -Antibiotics 5. Multiple chronic wounds: No debridement needed at this time; will need outpatient wound care once DC'd -Local care with offloading and frequent turning -Specialty bed -Nutrition optimization; increase protein intake -Vitamin C 6. Hypoalbuminemia: likely 2/2 poor oral intake -Optimize nutrition -Encourage favorite foods 7. History of polysubstance abuse including tobacco -Encourage cessation 7. Psychiatric disorder with depression -Start antidepressants? -Medical and psychiatric optimization 8. Severe protein calorie malnutrition -Encourage nutritional optimization -Encourage favorite foods Patient seen and examined in collaboration with Dr. Pino Gao Problems: Subjective 24 Hr Interval Summary Feels well, improved appetite. no c/o pain, n/v/d, h/a, lightheadedness, dizziness, fainting, sz, cp, cough, fevers, chills. Exam/Review of Systems Vital Signs Vitals Vital Signs Date Time Temp Pulse Resp B/P Pulse Ox O2 Delivery O2 Flow Rate FiO2 12/19/16 07:35 98.5 119 16 130/88 99 Intake and Output 12/18/16 12/18/16 12/19/16 15:00 23:00 07:00 Intake Total 1460 ml 960 ml Balance 1460 ml 960 ml Exam Free Text/Dictation Constitutional: alert, oriented, No well developed (cachexia) Psych: nl mood/affect, no complaints Head: atraumatic, normocephalic Eyes: nl lids, nl sclera ENMT: mucosa pink and moist, nl external ears & nose Neck: non-tender, supple Respiratory: clear to auscultation, no supplemental O2 Cardiovascular: nl pulses, regular rate and rhythm Gastrointestinal: soft, No distended, non-tender Genitourinary - Female: nl external genitalia Musculoskeletal: nl extremities to inspection Extremities: normal pulses Neurological: nl mental status, nl speech, nl strength Skin: other (multiple wounds: see nurse notes/documentation), No rash or lesions Results Result Diagram: 12/19/16 0430 12/19/16 0430 GALINA CISSE NP Dec 18, 2016 21:01
[2016-12-18 21:18] VITALS: BP 123/84; RESP 20
[2016-12-19] MEDS: PANTOPRAZOLE (EC) 40 MG TAB PO SCH ×2 (05:00→18:00)
[2016-12-19 06:20] LABS: BASOPHIL # 0.1 10^3/ul (0.0-0.1); BASOPHILS % 0.9 % (0.0-2.0); EOSINOPHILS # 0.1 10^3/ul (0.0-0.5); LYMPHOCYTES # 1.8 10^3/ul (0.8-2.9); LYMPHOCYTES % 19.2 % (15.0-51.0); MEAN CORPUSCULAR HEMOGLOBIN 29.9 pg (29.0-33.0); MEAN CORPUSCULAR HGB CONC 32.3 g/dl (32.0-37.0); MEAN CORPUSCULAR VOLUME 92.5 fl (82.0-101.0); MEAN PLATELET VOLUME 8.9 fl (7.4-10.4); MONOCYTE # 0.9 10^3/ul (0.3-0.9); MONOCYTES % 9.2 % (0.0-11.0); NEUTROPHIL # 6.2 10^3/ul (1.6-7.5); NEUTROPHILS % 65.4 % (39.0-77.0); PLATELET COUNT 274 10^3/UL (140-415); RED BLOOD COUNT 3.35 10^6/ul (4.20-5.40); RED CELL DISTRIBUTION WIDTH 18.2 % (11.5-14.5); WHITE BLOOD COUNT 9.4 10^3/ul (4.8-10.8)
[2016-12-19 06:44] LABS: CREATININE 0.48 mg/dl (0.44-1.00); PHOSPHORUS 3.3 mg/dl (2.5-4.9); POTASSIUM 3.8 mmol/L (3.5-5.1)
[2016-12-19 07:21] LABS: ADD SCAN DIFF NO
[2016-12-19 07:35] VITALS: BP 130/88; RESP 16
[2016-12-19] MEDS: FLUCONAZOLE 100 MG TAB PO SCH (09:56)
[2016-12-19] MEDS: ZINC SULFATE 220 MG CAP PO SCH (09:56)
[2016-12-19] MEDS: LEVETIRACETAM 500 MG TAB PO SCH (09:56)
[2016-12-19] MEDS: METOPROLOL 25 MG TAB PO SCH (09:57)
[2016-12-19] MEDS: EMTRICITABINE/TENOFOVIR TAB PO SCH (09:57)
[2016-12-19] MEDS: SUCRALFATE 1 GM TAB PO SCH ×3 (09:57→17:00)
[2016-12-19] MEDS: EFAVIRENZ 600 MG TAB PO SCH (09:57)
[2016-12-19] MEDS: METOCLOPRAMIDE 5 MG TAB PO SCH ×2 (09:57→12:51)
[2016-12-19] MEDS: MAGNESIUM OXIDE 400 MG TAB PO SCH ×2 (09:57→12:51)
[2016-12-19] MEDS: MEGESTROL (40 MG/ML) 10ML CUP PO SCH (09:58)
[2016-12-19] MEDS: MESALAMINE (EC) 400 MG CAP PO SCH ×3 (09:58→17:00)
[2016-12-19] MEDS: MULTIVITAMINS THERAPEUTIC TAB PO SCH (09:58)
[2016-12-19] MEDS: COLLAGENASE 30 GM TUBE TOP SCH (09:59)
--- NOTE | 2016-12-19 10:16 | CONS ---
Date/Time of Note Date/Time of Note DATE: 12/19/16 TIME: 10:14 Assessment/Plan Assessment/Plan Additional Assessment/Plan 1. Severe hyperchloremia with a chloride of 117on admission, now resolved 2. Acute encephalopathy. 3. Status post hemorrhagic shock. 4. Human immunodeficiency virus positive with CD4 count of 157. 5. Positive colitis. 6. Multiple decubitus ulcers. 7. Status post urinary tract infection and sepsis on admission. 8. Depression. 9. Hypomagnesemia- s/p replacement PLAN: d/pam KCL yesterday cr and electrolytes stable today will follow up Consultation Date/Type/Reason Admit Date/Time November 11, 2016 at 15:19 Type of Consultation: NEPHROLOGY Referring Provider: JESUS RUIZ 24 HR Interval Summary Free Text/Dictation no acute events, Exam/Review of Systems Vital Signs Vitals Vital Signs Date Time Temp Pulse Resp B/P Pulse Ox O2 Delivery O2 Flow Rate FiO2 12/19/16 07:35 98.5 119 16 130/88 99 Intake and Output 12/18/16 12/18/16 12/19/16 15:00 23:00 07:00 Intake Total 1460 ml 960 ml Balance 1460 ml 960 ml Exam GENERAL: This is a chronically ill-appearing, cachectic, wasted, middle-aged white woman who is lying comfortably in bed. HEENT: Head atraumatic, normocephalic. Sclerae anicteric. Buccal mucosa dry. NECK: Supple. CHEST: Rise symmetrical. Breath sounds diminished. HEART: S1, S2. ABDOMEN: Soft. Bowel tones present. EXTREMITIES: Without cyanosis. Bilateral edema. Results Result Diagram: 12/19/16 0430 12/19/16 0430 Results 24 hrs Laboratory Tests Test 12/19/16 04:30 White Blood Count 9.4 Red Blood Count 3.35 L Hemoglobin 10.0 L Hematocrit 31.0 L Mean Corpuscular Volume 92.5 Mean Corpuscular Hemoglobin 29.9 Mean Corpuscular Hemoglobin Concent 32.3 Red Cell Distribution Width 18.2 H Platelet Count 274 Mean Platelet Volume 8.9 Neutrophils % 65.4 Lymphocytes % 19.2 Monocytes % 9.2 Eosinophils % 1.0 Basophils % 0.9 Nucleated Red Blood Cells % 0.0 Neutrophils # 6.2 Lymphocytes # 1.8 Monocytes # 0.9 Eosinophils # 0.1 Basophils # 0.1 Nucleated Red Blood Cells # 0.0 Sodium Level 139 Potassium Level 3.8 Chloride Level 109 Carbon Dioxide Level 24 Anion Gap 10 Blood Urea Nitrogen 26 H Creatinine 0.48 Glucose Level 107 Calcium Level 9.0 Phosphorus Level 3.3 Albumin 3.0 L Medications Medications Current Medications Ondansetron HCl (Zofran Inj) 4 mg Q6H PRN IV NAUSEA AND/OR VOMITING Last administered on 12/01/16 09:59; Admin Dose 4 MG; Start 11/11/16 at 16:00 Acetaminophen (Tylenol Tab) 650 mg Q6H PRN PO PAIN LEVEL 1-3 OR FEVER; Start at 16:00 Magnesium Hydroxide (Milk Of Mag) 30 ml DAILY PRN PO CONSTIPATION; Start at 16:00 Sodium Biphosphate/ Sodium Phosphate (Fleet Enema) 133 ml DAILY PRN [place] CONSTIPATION; Start 11/11/16 at 16:00 Hydralazine HCl (Apresoline) 10 mg Q6H PRN IV ELEVATED BLOOD PRESSURE; Start at 16:00 Nitroglycerin (Nitroglycerin (Sl Tab) 0.4 Mg) 1 tab Q5M PRN SL ANGINA Last administered on 11/11/16 23:25; Admin Dose 1 TAB; Start 11/11/16 at 16:00 Efavirenz (Sustiva) 600 mg DAILY PO Last administered on 12/19/16 09:57; Admin Dose 600 MG; Start 11/12/16 at 09:00 Emtricitabine/ Tenofovir (Truvada) 1 tab DAILY PO Last administered on 09:57; Admin Dose 1 TAB; Start 11/12/16 at 09:00 Sucralfate (Carafate) 1 gm QID PO Last administered on 12/19/16 09:57; Admin Dose 1 GM; Start 11/11/16 at 17:00 Collagenase (Santyl) 1 applic DAILY TOP Last administered on 12/19/16 09:59; Admin Dose 1 APPLIC; Start 11/12/16 at 13:00 Collagenase (Santyl) 1 applic PRN PRN TOP WOUND CARE; Start 11/12/16 at 12:00 Mesalamine (Delzicol Dr) 800 mg QID PO Last administered on 12/19/16 09:58; Admin Dose 800 MG; Start 11/12/16 at 21:00 Fluconazole (Diflucan) 100 mg DAILY PO Last administered on 12/19/16 09:56; Admin Dose 100 MG; Start 11/13/16 at 09:00 Lactobacillus Acidophilus (Florajen3 Capsule) 1 each BID PO Last administered on 12/18/16 20:26; Admin Dose 1 EACH; Start 11/13/16 at 21:00 Pantoprazole (Protonix Tab) 40 mg BID@ PO Last administered on 12/19/16 05:00; Admin Dose 40 MG; Start 11/28/16 at 06:00 Metoclopramide HCl (Reglan) 5 mg TID PO Last administered on 12/19/16 09:57; Admin Dose 5 MG; Start 11/27/16 at 21:00 Levetiracetam (Keppra) 500 mg BID PO Last administered on 12/19/16 09:56; Admin Dose 500 MG; Start 11/27/16 at 21:00 Enoxaparin Sodium (Lovenox) 40 mg DAILY SC Last administered on 12/08/16 09:59 ; Admin Dose 40 MG; Start 11/29/16 at 09:00; Status Future Hold Magnesium Oxide (Mag-Ox 400) 400 mg TID PO Last administered on 12/19/16 09:57 ; Admin Dose 400 MG; Start 11/30/16 at 21:00 Metoprolol Tartrate (Lopressor) 12.5 mg BID PO Last administered on 12/19/16 09:57; Admin Dose 12.5 MG; Start 12/06/16 at 21:00 Multivitamins Therapeutic (Theragran) 1 tab DAILY PO Last administered on 09:58; Admin Dose 1 TAB; Start 12/17/16 at 09:00 Zinc Sulfate (Zinc Sulfate) 220 mg DAILY PO Last administered on 12/19/16 09: 56; Admin Dose 220 MG; Start 12/16/16 at 12:30 Megestrol Acetate (Megace Susp) 400 mg BID PO Last administered on 12/19/16 09 :58; Admin Dose 400 MG; Start 12/16/16 at 12:30 ASHISH MENDOZA MD Dec 19, 2016 10:16
[2016-12-19] MEDS: L ACIDOPHIL/B LACTIS/B LONGUM CAPSULE PO SCH (12:51)
--- NOTE | 2016-12-19 16:07 | PN ---
Date/Time of Note Date/Time of Note DATE: 12/19/16 TIME: 16:00 Assessment/Plan Lines/Catheters IV Catheter Type (from [facility]): PICC Line [place] in Place (from [facility]): No Assessment/Plan Chief Complaint/Hosp Course 1. Right lower quadrant serous fluid leak through a pinpoint had possible previous site of femoral access attempts. Resolved 2. Recent rectal bleeding with hemorrhagic shock & Anemia s/p transfusions. Stable -Monitor closely -PPIs and Carafate -Optimize medical status. 3. HIV positive -Continue medications 4. UTI with E. coli and Proteus -Antibiotics 5. Multiple chronic wounds -Local care -Nutrition optimization -Vitamin C -Outpt f/u 6. History of polysubstance abuse including tobacco -Encourage cessation 7. Psychiatric disorder with depression -Medical and psychiatric optimization 8. Severe protein calorie malnutrition and Hypoalbuminemia -Encourage nutritional optimization 9. Esophagitis: EGD 11/12/2016: Severe ulcerated esophagitis/Inocencia esophagitis; Colonoscopy 11/12/2016: [place] ulcerative colitis. Moderate sized internal hemorrhoids -Continue antimicrobials per ID -Continue PPI 10. Pneumonia: CXR 11/25: Left lower greater than right lower lobe pneumonia with small bilateral pleural effusions; Patient afebrile with normalized WBC; patient on room air -Pulmonary toilette/IS -Encourage mobilization Thank you, Problems: Subjective 24 Hr Interval Summary Feels well, improved appetite. No pain, n/v/d, h/a, lightheadedness, dizziness , fainting, sz, cp, cough, fevers, chills. Exam/Review of Systems Vital Signs Vitals Vital Signs Date Time Temp Pulse Resp B/P Pulse Ox O2 Delivery O2 Flow Rate FiO2 12/19/16 07:35 98.5 119 16 130/88 99 Intake and Output 12/18/16 12/18/16 12/19/16 15:00 23:00 07:00 Intake Total 1460 ml 960 ml Balance 1460 ml 960 ml Exam Free Text/Dictation Constitutional: alert, oriented, No well developed (cachexia) Psych: nl mood/affect, no complaints Head: atraumatic, normocephalic Eyes: nl lids, nl sclera ENMT: mucosa pink and moist, nl external ears & nose Neck: non-tender, supple Respiratory: clear to auscultation, no supplemental O2 Cardiovascular: nl pulses, regular rate and rhythm Gastrointestinal: soft, No distended, non-tender Genitourinary - Female: nl external genitalia Musculoskeletal: nl extremities to inspection Extremities: normal pulses Neurological: nl mental status, nl speech, nl strength Skin: other (multiple wounds: see nurse notes/documentation), No rash or lesions Results Result Diagram: 12/19/16 0430 12/19/16 0430 GEMA HUITRON MD Dec 19, 2016 16:07
--- NOTE | 2016-12-19 16:24 | CONS ---
Date/Time of Note Date/Time of Note DATE: 12/19/16 TIME: 16:23 Assessment/Plan Assessment/Plan Chief Complaint/Hosp Course SUBJECTIVE: No acute changes per report INDWELLINGS: PICC line. ANTIMICROBIALS: 2. Fluconazole. 3. Truvada. 4. Sustiva. PHYSICAL EXAMINATION: GENERAL: Cachectic, well-developed, middle-aged white woman who is alert, in no distress. HEENT: Head atraumatic, normocephalic. Sclerae anicteric. Buccal mucosa dry. NECK: Supple. CHEST: Rise symmetrical. Breath sounds diminished to bases. HEART: S1, S2. ABDOMEN: Soft, bowel tones present. EXTREMITIES: Without cyanosis. ASSESSMENT: 1. Status post septic shock secondary to urinary tract infection and pneumonia. 2. Status post colitis. 3. Human immunodeficiency virus disease with CD4 count 241 on 11/25/2016. 4. Multiple chronic wounds. 5. Cachexia with severe protein calorie malnutrition. 6. History of Inocencia esophagitis. 7. Status post seizure with postictal encephalopathy. PLAN: The patient remains stable. Continue present care, [facility], possible hospice eval staff Problems: Consultation Date/Type/Reason Admit Date/Time November 11, 2016 at 15:19 Initial Consult Date 11/11/16 Type of Consultation: Infectious disease Referring Provider: JESUS RUIZ Exam/Review of Systems Vital Signs Vitals Vital Signs Date Time Temp Pulse Resp B/P Pulse Ox O2 Delivery O2 Flow Rate FiO2 12/19/16 07:35 98.5 119 16 130/88 99 Intake and Output 12/18/16 12/18/16 12/19/16 15:00 23:00 07:00 Intake Total 1460 ml 960 ml Balance 1460 ml 960 ml Results Result Diagram: 12/19/16 0430 12/19/16 0430 Results 24 hrs Laboratory Tests Test 12/19/16 04:30 White Blood Count 9.4 Red Blood Count 3.35 L Hemoglobin 10.0 L Hematocrit 31.0 L Mean Corpuscular Volume 92.5 Mean Corpuscular Hemoglobin 29.9 Mean Corpuscular Hemoglobin Concent 32.3 Red Cell Distribution Width 18.2 H Platelet Count 274 Mean Platelet Volume 8.9 Neutrophils % 65.4 Lymphocytes % 19.2 Monocytes % 9.2 Eosinophils % 1.0 Basophils % 0.9 Nucleated Red Blood Cells % 0.0 Neutrophils # 6.2 Lymphocytes # 1.8 Monocytes # 0.9 Eosinophils # 0.1 Basophils # 0.1 Nucleated Red Blood Cells # 0.0 Sodium Level 139 Potassium Level 3.8 Chloride Level 109 Carbon Dioxide Level 24 Anion Gap 10 Blood Urea Nitrogen 26 H Creatinine 0.48 Glucose Level 107 Calcium Level 9.0 Phosphorus Level 3.3 Albumin 3.0 L Medications Medications Current Medications Ondansetron HCl (Zofran Inj) 4 mg Q6H PRN IV NAUSEA AND/OR VOMITING Last administered on 12/01/16 09:59; Admin Dose 4 MG; Start 11/11/16 at 16:00 Acetaminophen (Tylenol Tab) 650 mg Q6H PRN PO PAIN LEVEL 1-3 OR FEVER; Start at 16:00 Magnesium Hydroxide (Milk Of Mag) 30 ml DAILY PRN PO CONSTIPATION; Start at 16:00 Sodium Biphosphate/ Sodium Phosphate (Fleet Enema) 133 ml DAILY PRN NV CONSTIPATION; Start 11/11/16 at 16:00 Hydralazine HCl (Apresoline) 10 mg Q6H PRN IV ELEVATED BLOOD PRESSURE; Start at 16:00 Nitroglycerin (Nitroglycerin (Sl Tab) 0.4 Mg) 1 tab Q5M PRN SL ANGINA Last administered on 11/11/16 23:25; Admin Dose 1 TAB; Start 11/11/16 at 16:00 Efavirenz (Sustiva) 600 mg DAILY PO Last administered on 12/19/16 09:57; Admin Dose 600 MG; Start 11/12/16 at 09:00 Emtricitabine/ Tenofovir (Truvada) 1 tab DAILY PO Last administered on 09:57; Admin Dose 1 TAB; Start 11/12/16 at 09:00 Sucralfate (Carafate) 1 gm QID PO Last administered on 12/19/16 12:52; Admin Dose 1 GM; Start 11/11/16 at 17:00 Collagenase (Santyl) 1 applic DAILY TOP Last administered on 12/19/16 09:59; Admin Dose 1 APPLIC; Start 11/12/16 at 13:00 Collagenase (Santyl) 1 applic PRN PRN TOP WOUND CARE; Start 11/12/16 at 12:00 Mesalamine (Delzicol Dr) 800 mg QID PO Last administered on 12/19/16 12:51; Admin Dose 800 MG; Start 11/12/16 at 21:00 Fluconazole (Diflucan) 100 mg DAILY PO Last administered on 12/19/16 09:56; Admin Dose 100 MG; Start 11/13/16 at 09:00 Lactobacillus Acidophilus (Florajen3 Capsule) 1 each BID PO Last administered on 12/19/16 12:51; Admin Dose 1 EACH; Start 11/13/16 at 21:00 Pantoprazole (Protonix Tab) 40 mg BID@ PO Last administered on 12/19/16 05:00; Admin Dose 40 MG; Start 11/28/16 at 06:00 Metoclopramide HCl (Reglan) 5 mg TID PO Last administered on 12/19/16 12:51; Admin Dose 5 MG; Start 11/27/16 at 21:00 Levetiracetam (Keppra) 500 mg BID PO Last administered on 12/19/16 09:56; Admin Dose 500 MG; Start 11/27/16 at 21:00 Enoxaparin Sodium (Lovenox) 40 mg DAILY SC Last administered on 12/08/16 09:59 ; Admin Dose 40 MG; Start 11/29/16 at 09:00; Status Future Hold Magnesium Oxide (Mag-Ox 400) 400 mg TID PO Last administered on 12/19/16 12:51 ; Admin Dose 400 MG; Start 11/30/16 at 21:00 Metoprolol Tartrate (Lopressor) 12.5 mg BID PO Last administered on 12/19/16 09:57; Admin Dose 12.5 MG; Start 12/06/16 at 21:00 Multivitamins Therapeutic (Theragran) 1 tab DAILY PO Last administered on 09:58; Admin Dose 1 TAB; Start 12/17/16 at 09:00 Zinc Sulfate (Zinc Sulfate) 220 mg DAILY PO Last administered on 12/19/16 09: 56; Admin Dose 220 MG; Start 12/16/16 at 12:30 Megestrol Acetate (Megace Susp) 400 mg BID PO Last administered on 12/19/16 09 :58; Admin Dose 400 MG; Start 12/16/16 at 12:30 AGUILA BURGOS NP Dec 19, 2016 16:23
[2016-12-19] MEDS ORDERED: ZINC220C11 PO (17:01)
[2016-12-19] MEDS ORDERED: MULTI PO (17:01)
[2016-12-19] MEDS ORDERED: METO-448 PO (17:01)
[2016-12-19] MEDS ORDERED: SAN30GM TOP (17:01)
[2016-12-19] MEDS ORDERED: MEGE400O4 PO (17:01)
[2016-12-19] MEDS ORDERED: FLUC100T PO (17:02)
[2016-12-19] MEDS ORDERED: ASA400 PO (17:03)
--- NOTE | 2016-12-19 17:04 | PDOCDIS ---
Discharge Instructions DIAGNOSIS Discharge Diagnosis Severe anemia with GI bleed, Protein energy malnutrition, HIV disease CONDITION Patient Condition: Stable HOME CARE INSTRUCTIONS: Special Diet: regular diet ACTIVITY: Activity Restrictions: Slowly Increase Activity Rest between Activity FOLLOW UP/APPOINTMENTS Follow-up Plan Per hospice FERNANDO HOOD Dec 19, 2016 17:04
[2016-12-19 20:00] VITALS: BP 120/68; PULSE 105; RESP 18
--- NOTE | 2016-12-22 09:43 | DS ---
Date/Time of Note Date/Time of Note DATE: 12/22/16 TIME: 09:39 Discharge Summary Admission/Discharge Info Admit Date/Time November 11, 2016 at 15:19 Discharge Date/Time Dec 19, 2016 at 20:22 Discharge Diagnosis 1. Severe anemia with GI bleed 2. Status post upper and lower endoscopy, showing severe ulcerative esophagitis and ulcerative colitis. 3. Seizure disorder. 4. HIV disease 5. Deconditioning. 6. Multiple wounds. 7. History of substance abuse. 8. History of depression. 9. Severe malnutrition + HIV associated anorexia 10. Status post urinary tract infection. . Patient Condition: Stable Hospital Course Initially came in severely malnourished with GI bleed and severe anemia. was transfused, underwent endoscopy and was seen by multiple consultants and PT. Proloned hospitalization secondary to need for placement. Eventually opted for hospice and was transferred to SNF under hospice care. Home Meds Active Scripts Mesalamine (Delzicol) 400 Mg Cap.drtab., 800 MG PO QID for 30 Days Prov:FERNANDO HOOD 12/19/16 Fluconazole* (Diflucan*) 100 Mg Tablet, 100 MG PO DAILY for 60 Days, TAB Prov:FERNANDO HOOD . 12/19/16 Multivitamins* (Theragran*) 1 Tab Tab, 1 TAB PO DAILY for 30 Days, TAB Prov:FERNANDO HOOD Agapito 12/19/16 Collagenase* (Santyl*) 30 Gm Oint..gm., 1 APPLIC TOP DAILY for 14 Days Prov:FERNANDO HOOD 12/19/16 Zinc Sulfate (ZINC-220) 220 Mg Cap, 220 MG PO DAILY for 60 Days, CAP Prov:FERNANDO HOOD 12/19/16 Metoprolol Tartrate* (Lopressor*) 25 Mg Tab, 12.5 MG PO BID for 30 Days, TAB Prov:FERNANDO HOOD 12/19/16 Megestrol Acetate (Megestrol Acetate) 400 Mg/10 Ml Oral.susp, 400 MG PO BID for 30 Days Prov:FERNANDO HOOD 12/19/16 Ergocalciferol (Vitamin D2) (VITAMIN D2) 50,000 Unit Capsule, 97144 UNIT PO DAILY for 7 Days, #7 CAP ONCE A WEEK; not daily. Prov:VALERIE LOBO MD 11/30/16 Magnesium Oxide* (Magnesium Oxide*) 400 Mg Tablet, 400 MG PO TID for 7 Days, TAB Prov:VALERIE LOBO MD 11/30/16 Acetaminophen (MAPAP) 325 Mg Tablet, 650 MG PO Q6H Y for PAIN LEVEL 1-3 OR FEVER for 1 Day, TAB Prov:VALERIE LOBO MD 11/30/16 Enoxaparin Sodium (Enoxaparin Sodium) 40 Mg/0.4 Ml Syringe, 40 MG SC DAILY for 10 Days Prov:VALERIE LOBO MD 11/30/16 Albuterol Sulfate* (Ventolin HFA*) 18 Gm Hfa.aer.ad, 2 PUFF INH Q4H RESP THERAPY Y for SHORTNESS OF BREATH for 10 Days Prov:VALERIE LOBO MD 11/30/16 Levetiracetam* (Keppra*) 500 Mg Tablet, 500 MG PO BID for 30 Days, #6 TAB Prov:VALERIE LOBO MD 11/30/16 Sucralfate (Carafate) 1 Gm Tablet, 1 GM PO QID for 30 Days, TAB Prov:YASHA VILLAREAL MD 08/26/16 Pantoprazole* (Pantoprazole*) 40 Mg Tablet.dr, 40 MG PO BID@06,18 for 30 Days Prov:AYSHA VILLAREAL MD 08/26/16 Emtricitabine-Tenofovir* (Truvada*) 200-300 Mg Tab, 1 TAB PO DAILY for 30 Days, TAB Prov:AYSHA VILLAREAL MD 08/26/16 Efavirenz* (Sustiva*) 600 Mg Tab, 600 MG PO DAILY for 30 Days, TAB Prov:AYSHA VILLAREAL MD 08/26/16 Primary Care Provider Not On Staff Doctor Time spent on discharge: > 30 minutes FERNANDO HOOD Dec 22, 2016 09:42
== END 2016-12-19 20:22 | disposition hospice, inpatient (51) | DRG 974 ==
LOC: E/R 13:04 → ICU 15:19 → PP2 11-17 16:23 → ICU 11-25 07:50 → MS4 11-27 21:40 → PP2 12-13 08:32
PROVIDERS: ADMIT Hospitalist; ATTEND Hospitalist
PROC: 02HV33Z Insertion of Infusion Device into Superior Vena Cava, Percutaneous Approach (ICD-10-PCS; 2016-11-12)
PROC: 302 Administration, Circulatory, Transfusion (ICD-10-PCS; 2016-11-12)
PROC: 30273N1 Transfusion of Nonautologous Red Blood Cells into Products of Conception, Circulatory, Percutaneous Approach (ICD-10-PCS; 2016-11-12)
PROC: 0DB58ZX Excision of Esophagus, Via Natural or Artificial Opening Endoscopic, Diagnostic (ICD-10-PCS; principal; 2016-11-12 19:30)
PROC: 0DBE8ZX Excision of Large Intestine, Via Natural or Artificial Opening Endoscopic, Diagnostic (ICD-10-PCS; 2016-11-12 19:30)
DX: B20 Human immunodeficiency virus [HIV] disease (principal); A41.9 Sepsis, unspecified organism; J96.91 Respiratory failure, unspecified with hypoxia; J69.0 Pneumonitis due to inhalation of food and vomit; E43 Unspecified severe protein-calorie malnutrition; R65.21 Severe sepsis with septic shock; R57.8 Other shock; G92 Toxic encephalopathy; R64 Cachexia; K82.0 Obstruction of gallbladder; K62.5 Hemorrhage of anus and rectum; K51.90 Ulcerative colitis, unspecified, without complications; K22.10 Ulcer of esophagus without bleeding; E87.1 Hypo-osmolality and hyponatremia; R18.8 Other ascites; D62 Acute posthemorrhagic anemia; T81.4XXA Infection following a procedure, initial encounter; T85.638A Leakage of other specified internal prosthetic devices, implants and grafts, initial encounter; B37.81 Candidal esophagitis; G40.909 Epilepsy, unspecified, not intractable, without status epilepticus; K64.4 Residual hemorrhoidal skin tags; D64.9 Anemia, unspecified; Z96.0 Presence of urogenital implants; B96.20 Unspecified Escherichia coli [E. coli] as the cause of diseases classified elsewhere; H70.899 Other mastoiditis and related conditions, unspecified ear; N30.90 Cystitis, unspecified without hematuria; D63.8 Anemia in other chronic diseases classified elsewhere; L89.90 Pressure ulcer of unspecified site, unspecified stage; B19.20 Unspecified viral hepatitis C without hepatic coma; B95.2 Enterococcus as the cause of diseases classified elsewhere; E87.8 Other disorders of electrolyte and fluid balance, not elsewhere classified; E83.42 Hypomagnesemia; E88.09 Other disorders of plasma-protein metabolism, not elsewhere classified; K74.60 Unspecified cirrhosis of liver; K52.9 Noninfective gastroenteritis and colitis, unspecified; Y83.8 Other surgical procedures as the cause of abnormal reaction of the patient, or of later complication, without mention of misadventure at the time of the procedure; R53.81 Other malaise; R73.03 Prediabetes; Z87.11 Personal history of peptic ulcer disease; Z86.59 Personal history of other mental and behavioral disorders; Z86.19 Personal history of other infectious and parasitic diseases; Z95.828 Presence of other vascular implants and grafts; Z87.898 Personal history of other specified conditions
CPT/HCPCS: 36415; 36430; 36569; 36590; 36600; 70450; 70553; 71010; 74176; 74177; 76937; 80048; 80053; 80061; 80069; 80076; 80202; 81001; 81003; 82150; 82270; 82306; 82436; 82533; 82540; 82803; 82945; 82947; 82962; 83036; 83605; 83615; 83735; 83986; 84100; 84132; 84155; 84157; 84300; 84439; 84443; 84484; 84703; 85014; 85018; 85025; 85049; 85362; 85378; 85384; 85610; 85670; 85730; 86021; 86360; 86850; 86900; 86901; 86920; 87040; 87045; 87070; 87075; 87081; 87086; 87496; 87536; 88305; 88312; 88313; 89050; 89190; 93005; 93306; 95819; 96361; 96374; 96375; 96376; 97003; 97110; 97116; 97163; 97164; 97166; 97530; 97535; C9113; J0692; J0696; J1200; J1335; J1650; J1815; J1885; J1953; J2060; J2250; J2270; J2354; J2370; J2405; J2543; J2765; J3370; J3475; J3480; J7030; J7040; J7042; J7050; P9016; P9035; P9047; Q9967